=== PATIENT | male | born 1940 | race Caucasian/White ===

== ENCOUNTER 2020-05-19 15:15 | Emergency (ER) | payer OTHER, SELFPAY ==
--- NOTE | ~2020-05-19 | XR_ITS ---
XR chest 1V portable DATE: 05/19/2020 16:56 INDICATION: Shortness of breath, palpitations. History of COPD, atrial fibrillation, congestive heart failure, aortic valve disease TECHNIQUE: Portable upright AP chest on 05/19/2020 at 1647 hours COMPARISON: 07/02/2017 PA and lateral chest FINDINGS: Status post sternotomy and aortic valve replacement. Cardiomegaly. Aortic calcification. Mild infiltrate or atelectasis is noted in the lung bases. The lungs otherwise appear clear. No pleur al effusion is evident. There is mild pulmonary vascular congestion and redistribution. The left shoulder is included; left chronic rotator cuff atrophy. Diffuse osteopenia. IMPRESSION: Bibasilar mild infiltrate and/atelectasis Cardiomegaly Status post aortic valve replacement Aortic calcification Reviewed, dictated and finalized at location B.
--- NOTE | 2020-05-19 15:32 | ECG_ITS ---
Measurements Intervals [place] Rate: 73 P: 46 RI: 234 QRS: 98 QRSD: 165 T: 51 QT: 444 QTc: 490 Interpretive Statements SINUS RHYTHM WITH FIRST DEGREE AV BLOCK POSSIBLE LEFT ATRIAL ENLARGEMENT RIGHT AXIS DEVIATION LEFT BUNDLE BRANCH BLOCK BASELINE ARTIFACT- I ABNORMAL ECG Electronically Signed On 05-19-2020 16:14:54 CDT by Isaiah Burk D.O.
[2020-05-19 15:40] VITALS: BP 147/75; PULSE 73; RESP 16; TEMP 36.4; O2SAT 99
[2020-05-19 15:51] VITALS: PULSE 76
[2020-05-19 16:11] LABS: Basophils Absolute Auto 0.1 K/mm3 (0.0-0.1); Basophils Percent Auto 0.7 % (0.2-1.2); Eosinophils Absolute Auto 0.1 K/mm3 (0-0.3); Eosinophils Percent Auto 1.6 % (0-4.4); Hematocrit 39.2 % (42.0-52.0); Hemoglobin 13.1 g/dL (14.0-18.0); Immature Granulocyte Absolute 0.02 K/mm3 (0.00-0.031); Immature Granulocyte Percent A 0.3 % (0-0.5); Lymphocytes Absolute Auto 1.66 K/mm3 (0.9-3.2); Lymphocytes Percent Auto 24.9 % (18.3-44.2); Mean Corpuscular HGB Conc 33.4 g/dl (32-36); Mean Corpuscular Hemoglobin 30.7 pg (26-34); Mean Corpuscular Volume 91.8 fl (80-100); Mean Platelet Volume 12.1 fl (7.4-10.4); Monocytes Absolute Auto 0.7 K/mm3 (0.1-0.6); Monocytes Percent Auto 10.2 % (2.6-8.5); Neutrophils Absolute Auto 4.2 K/mm3 (1.3-6.7); Neutrophils Percent Auto 62.3 % (45.5-73.1); Platelet Count Result 166 k/mm3 (150-375); Red Blood Count 4.27 M/mm3 (4.6-6.20); Red Cell Distribution Width 13.5 % (11.5-14.5); White Blood Count 6.7 K/mm3 (4.5-10.0)
[2020-05-19 16:21] LABS: Anion Gap 10 mmol/L (8-16); Blood Urea Nitrogen 26 mg/dL (9-20); Calcium 9.3 mg/dL (8.4-10.2); Carbon Dioxide 28 mmol/L (22-30); Chloride 100 mmol/L (98-107); Estimated CRCL calculation 62 ml/min; Estimated Glomerular Filt Rate > 60; Glucose 251 mg/dL (75-110); Potassium 4.1 mmol/L (3.4-5.0); Sodium 138 mmol/L (137-145)
--- NOTE | 2020-05-19 16:22 | ED.GENADULT ---
HPI - General Adult General Chief complaint: Unspecified Stated complaint: PCP WANTS TEST FOR ENDOCARDITIS AND COVID Time Seen by Provider: 05/19/20 15:55 Source: patient Mode of arrival: ambulatory Limitations: no limitations History of Present Illness HPI narrative: This patient is an 79 year old male with history of COPD who presents for evaluation for possible COVID. Patient states last night he was feeling fatigued. HE also reports he had an episode of chills and he felt his heart racing. Today he denies having chest pain, cough, fever, or palpitations. He states he has mild fatigue but otherwise he feels fine. He denies sore throat, diarrhea, loss of taste or smell. HE denies known covid exposure. He states his speed runner recommended that he come to ER. Related Data Home Medications Medication Instructions Recorded Confirmed amlodipine 05/19/20 carvedilol 05/19/20 doxazosin mg 05/19/20 furosemide 05/19/20 losartan 05/19/20 paroxetine HCl mg PO 05/19/20 simvastatin mg 05/19/20 warfarin 05/19/20 Allergies Allergy/AdvReac Type Severity Reaction Status Date / Time No Known Allergies Allergy Verified 05/19/20 15:52 Review of Systems Review of Systems: All systems reviewed & are unremarkable except as noted in HPI and below Constitutional: Constitutional: Reports chills, Reports fatigue and Denies fever(s) ENT: Denies nasal congestion and Denies sore throat Cardiovascular: Cardiovascular: Denies chest pain, Reports rapid heart rate and Denies radiating jaw, neck or arm pain Respiratory: Respiratory: Denies cough and Reports dyspnea (chronic) Gastrointestinal: Gastrointestinal: Denies abdominal pain, Denies diarrhea, Denies nausea and Denies vomiting PMFSH Past Medical History Medical History (Updated 05/19/20 @ 21:21 by Sarah Yepez MD) Aortic valve disease Atrial fibrillation CHF (congestive heart failure) COPD (chronic obstructive pulmonary disease) Diabetes mellitus Surgical History Surgical History (Updated 05/19/20 @ 16:25 by Sarah Yepez MD) H/O aortic valve replacement Social History Social History (Updated 05/19/20 @ 16:25 by Sarah Yepez MD) Smoking status: Never smoker Exam Narrative: Exam Narrative: GENERAL: Well-appearing, well-nourished, and in no acute distress. HEAD: Normocephalic, atraumatic EYES: PERRLA and EOMI, conjunctiva clear without discharge THROAT:Mucous membranes moist, Oropharynx normal without erythema, exudate, peritonsillar swelling or fluctuance NECK: Supple, without lymphadenopathy or mass RESPIRATORY: No respiratory distress, Airway patent, Respirations non-labored, Clear to auscultation without rales, rhonchi or wheeze HEART: Regular rate and rhythm. No murmur heard. Normal peripheral pulses. ABDOMEN: Soft, nontender, nondistended, normal active bowel sounds. No masses. No rebound or guarding, No organomegaly. EXTREMITIES: No edema, normal strength with full range of motion. SKIN: Warm, dry, normal color without rash NEURO: Alert and oriented x3. CN 2-12 grossly intact. No focal deficits. PSYCH: Normal mood and affect. Course Reevaluation(s) Reevaluation #1: I was just informed that patient left AMA. Unable to talk to patient before he left. Date: 05/19/20 Time: 17:10 Vital Signs Vital signs: Vital Signs Temperature 97.5 F L 05/19/20 15:40 Pulse Rate 73 05/19/20 15:40 Respiratory Rate 16 05/19/20 15:40 Blood Pressure 147/75 H 05/19/20 15:40 Pulse Oximetry 99 05/19/20 15:40 Temperature 97.5 F L 05/19/20 15:40 Pulse Rate 78 05/19/20 17:05 Respiratory Rate 18 05/19/20 17:05 Blood Pressure 147/75 H 05/19/20 15:40 Pulse Oximetry 99 05/19/20 17:05 Medical Decision Making Vital Signs Vital Signs: Vital Signs Temperature 97.5 F L 05/19/20 15:40 Pulse Rate 73 05/19/20 15:40 Respiratory Rate 16 05/19/20 15:40 Blood Pressure 147/75 H 05/19/20 15:40 P
[2020-05-19 16:46] LABS: Magnesium 1.9 mg/dL (1.6-2.3)
[2020-05-19 16:56] LABS: INR 2.7
[2020-05-19 16:57] LABS: Partial Thromboplastin Time 46.5 SECONDS (22.3-36.8)
[2020-05-19 16:59] LABS: Troponin I < 0.012 ng/mL (0.000-0.034)
--- NOTE | 2020-05-19 17:04 | PC.NURSE ---
patient left ama after being informed of the risks of doing so including , and the benifits of continued treatment
[2020-05-19 17:05] VITALS: PULSE 78; RESP 18; O2SAT 99
== END 2020-05-19 17:08 | disposition left against medical advice (07) ==
PROVIDERS: Emergency Medicine; Emergency Provider General Practice; PCP Internal Medicine
DX: R00.2 Palpitations (principal); J44.9 Chronic obstructive pulmonary disease, unspecified; Z79.01 Long term (current) use of anticoagulants; I48.91 Unspecified atrial fibrillation; I50.9 Heart failure, unspecified; E11.9 Type 2 diabetes mellitus without complications; Z95.2 Presence of prosthetic heart valve; I35.9 Nonrheumatic aortic valve disorder, unspecified; I44.0 Atrioventricular block, first degree; I44.7 Left bundle-branch block, unspecified; R94.31 Abnormal electrocardiogram [ECG] [EKG]
CPT/HCPCS: 36415; 71045; 80048; 83735; 84484; 85025; 85610; 85730; 93005; 99284

== ENCOUNTER 2021-05-20 14:16 | Outpatient (CLI) | payer MEDICARE, SELFPAY ==
--- NOTE | ~2021-05-20 | XR_ITS ---
XR lumbar spine min 4V DATE: 05/20/2021 14:45 INDICATION: Acute low back pain with bilateral sciatica for one month. No injury. TECHNIQUE: AP, lateral, coned lateral lumbosacral and bilateral oblique views COMPARISON: None FINDINGS: There is degenerative change at the apophyseal joints with associated minimal grade 1 anter olisthesis at L3-4. There is mild degenerative disc disease at L1-2, L2-3 and L3-4. There is moderate degenerative disc disease and mild retrolisthesis at L5-S1. The lumbar pedicles are intact. No fracture or bone destruction, spondylolysis or spondylolisthesis. The sacroiliac joints are intact. There is extensive calcification of the abdominal aorta and iliac arteries, without evidence of aneur ysm. IMPRESSION: Degenerative changes including mild to moderate multilevel degenerative disc disease, deg enerative changes apophyseal joints, with associated minimal grade 1 anterolisthesis at L3-4 Reviewed, dictated and finalized at location B. IMPRESSION: Degenerative changes including mild to moderate multilevel degenera tive disc disease, degenerative changes apophyseal joints, with associated mini mal grade 1 anterolisthesis at L3-4
== END 2021-05-20 14:17 | disposition home or self-care (01) ==
LOC: ANHIMG 14:21
PROVIDERS: PCP Internal Medicine; Visit Provider Internal Medicine
DX: M54.42 Lumbago with sciatica, left side (principal); M54.41 Lumbago with sciatica, right side; M51.36 Other intervertebral disc degeneration, lumbar region
CPT/HCPCS: 72110

== ENCOUNTER 2022-03-24 13:45 | Emergency (ER) | payer MEDICARE, SELFPAY ==
--- NOTE | ~2022-03-24 | XR_ITS ---
XR chest 2V 03/24/2022 14:18 Indication: Abdomen pain and weakness Procedure: 2 view chest Comparison: 05/19/2020 Findings: Status post median sternotomy for CABG. Cardiomegaly. There is a prosthetic aortic valve. N o focal air space disease, pulmonary edema, pleural effusion or suspected pneumothorax. Impression: 1: No acute cardiopulmonary disease. 2: Cardiomegaly. Reviewed, dictated and finalized at location A. Impression: 1: No acute cardiopulmonary disease. 2: Cardiomegaly.
--- NOTE | 2022-03-24 13:44 | ECG_ITS ---
Measurements Intervals [place] Rate: 98 P: -31 NE: 177 QRS: 23 QRSD: 174 T: 41 QT: 416 QTc: 533 Interpretive Statements SINUS RHYTHM WITH SINUS ARRHYTHMIA LEFT ATRIAL ENLARGEMENT [-0.15mV P-WAVE IN V1/V2] LEFT BUNDLE BRANCH BLOCK [120+ ms QRS DURATION, 80+ ms Q/S IN V1/V2, 85+ ms R IN I/aVL/V5/V6] COMPARED TO ECG 05/19/2020 15:37:47 HEART RATE IS INCREASED Electronically Signed On 03-24-2022 16:34:28 CDT by Ubaldo Vazquez M.D.
[2022-03-24 13:45] VITALS: BP 108/58; PULSE 100; RESP 14; TEMP 36.4
--- NOTE | 2022-03-24 13:59 | ED.GENADULT ---
HPI - General Adult General Chief complaint: Weakness Stated complaint: weakness, CP History of Present Illness HPI narrative: 81-year-old male with a past medical history of hypertension, aortic valve replacement, dyslipidemia presents for evaluation of weakness and lightheadedness. Patient states that when he woke up this morning he felt lightheaded. He spent most of the morning in bed because of the lightheadedness and he felt that he may be too weak to walk. He is also upset because his did not make breakfast this morning. He denies fever, chest pain, sick contacts. He has had a COVID-vaccine. Patient felt well when he went to bed last night. He denies chest pain, shortness of breath, exertional symptoms. Related Data Home Medications Medication Instructions Recorded Confirmed amlodipine 10 mg tablet 05/19/20 carvedilol 25 mg tablet 05/19/20 doxazosin 4 mg tablet mg 05/19/20 furosemide 40 mg tablet 05/19/20 losartan 100 mg tablet 05/19/20 paroxetine HCl 20 mg tablet mg PO 05/19/20 simvastatin 20 mg tablet mg 05/19/20 warfarin 2 mg tablet 05/19/20 Allergies Allergy/AdvReac Type Severity Reaction Status Date / Time No Known Allergies Allergy Verified 05/19/20 15:52 Review of Systems Review of Systems: CONSTITUTIONAL: Denies fever, chills, or sweats. EYES: Denies visual changes, redness, or discharge. ENT: Denies rhinorrhea, congestion, sore throat, or otalgia. CARDIOVASCULAR: Denies chest pain, palpitations, or edema. RESPIRATORY: Denies cough or dyspnea. GASTROINTESTINAL: Denies abdominal pain, nausea, vomiting, or diarrhea. GENITOURINARY: Denies dysuria or hematuria. SKIN: Denies rash or itching. MUSCULOSKELETAL: Denies back pain, joint pain, or myalgia. NEUROLOGIC: Denies headache, numbness, or weakness. PSYCHIATRIC: Denies anxiety or depression. [facility] Past Medical History Medical History Aortic valve disease Atrial fibrillation CHF (congestive heart failure) COPD (chronic obstructive pulmonary disease) Diabetes mellitus Surgical History Surgical History H/O aortic valve replacement Social History Social History Smoking status: Never smoker Exam Narrative: GENERAL: Well-appearing, well-nourished, and in no acute distress. HEAD: Normocephalic, atraumatic. EYES: PERRLA and EOMI. ENT: Nares clear, no rhinorrhea or epistaxis. Mucous membranes moist. NECK: Supple. CHEST: Clear to auscultation. No respiratory distress. HEART: Regular rate and rhythm. No murmur heard. Normal peripheral pulses. ABDOMEN: Soft, nontender, nondistended, normal active bowel sounds. EXTREMITIES: Normal range of motion. No edema. SKIN: Warm, dry, no rash. NEURO: No focal deficits. Alert and oriented x3. PSYCH: Normal mood and affect. Course Vital Signs Vital signs: Vital Signs Temperature 97.5 F L 03/24/22 13:45 Pulse Rate 100 03/24/22 13:45 Respiratory Rate 14 03/24/22 13:45 Blood Pressure 108/58 L 03/24/22 13:45 Oxygen Delivery Room Air 03/24/22 13:45 Temperature 97.5 F L 03/24/22 13:45 Pulse Rate 65 03/24/22 14:51 Respiratory Rate 14 03/24/22 13:45 Blood Pressure 108/58 L 03/24/22 13:45 Oxygen Delivery Room Air 03/24/22 13:45 Medical Decision Making [facility] Narrative Medical decision making narrative: 81-year-old male with generalized weakness and lightheadedness since this AM. Cardiac work-up is overall reassuring including a negative troponin x2. Work-up is notable for hypokalemia with a potassium of 3.2. Patient also shows evidence of urinary tract infectious disease. He has received p.o. potassium and a dose of ceftriaxone in our department and will be discharged with p.o. antibiotics for home use. Patient agrees to follow-up with his primary care doctor and his family is at
[2022-03-24 14:23] LABS: Basophils Absolute Auto 0.1 K/mm3 (0.0-0.1); Basophils Percent Auto 0.4 % (0.2-1.2); Eosinophils Percent Auto 0.3 % (0-4.4); Hematocrit 41.1 % (42.0-52.0); Hemoglobin 13.5 g/dL (14.0-18.0); Immature Granulocyte Absolute 0.06 K/mm3 (0.00-0.031); Immature Granulocyte Percent A 0.5 % (0-0.5); Lymphocytes Absolute Auto 1.07 K/mm3 (0.9-3.2); Lymphocytes Percent Auto 8.5 % (18.3-44.2); Mean Corpuscular HGB Conc 32.8 g/dl (32-36); Mean Corpuscular Hemoglobin 30.8 pg (26-34); Mean Corpuscular Volume 93.8 fl (80-100); Mean Platelet Volume 11.3 fl (7.4-10.4); Monocytes Absolute Auto 0.9 K/mm3 (0.1-0.6); Monocytes Percent Auto 7.1 % (2.6-8.5); Neutrophils Absolute Auto 10.5 K/mm3 (1.3-6.7); Neutrophils Percent Auto 83.2 % (45.5-73.1); Platelet Count Result 182 k/mm3 (150-375); Red Blood Count 4.38 M/mm3 (4.6-6.20); Red Cell Distribution Width 13.6 % (11.5-14.5); White Blood Count 12.6 K/mm3 (4.5-10.0)
[2022-03-24 14:31] LABS: Alanine Aminotransferase 21 U/L (6-50); Albumin Level 4.2 g/dL (3.5-5.1); Alkaline Phosphatase 55 U/L (38-126); Anion Gap 13 mmol/L (8-16); Aspartate Amino Transferase 23 U/L (17-59); Bilirubin,Total 0.9 mg/dL (0.2-1.3); Blood Urea Nitrogen 17 mg/dL (9-20); Calcium 8.9 mg/dL (8.4-10.2); Carbon Dioxide 25 mmol/L (22-30); Chloride 96 mmol/L (98-107); Estimated CRCL calculation 59 ml/min; Estimated Glomerular Filt Rate > 60; Glucose 192 mg/dL (65-110); Lipase 41 U/L (23-300); Potassium 3.2 mmol/L (3.4-5.0); Sodium 134 mmol/L (137-145)
[2022-03-24 14:32] LABS: INR 1.6; Prothrombin Time 18.5 Seconds (11.1-14.7)
[2022-03-24 14:33] LABS: Partial Thromboplastin Time 38.4 SECONDS (22.3-36.8)
[2022-03-24 14:43] LABS: Troponin I 0.014 ng/mL (0.000-0.034)
[2022-03-24 14:51] VITALS: PULSE 65
--- NOTE | 2022-03-24 16:40 | PC.NURSE ---
Patient hit his call light and notified bond underwriter he needed to use the restroom. Urinal given and patient able to stand at side of bed without difficulty, however patient missed the urinal with some urine and had urine on the floor. Rate Examiner noticed patient's urine was foul smelling and cloudy. UA ordered, collected, and sent to laboratory to rule out UTI.
[2022-03-24 17:15] LABS: Add Urine Microscopic? YES; Appearance Urine Cloudy (Clear); Bilirubin Urine Negative (Negative); Blood Urine Negative (Negative); Color Urine Yellow (Yellow); Glucose Urine UA 2+ mg/dL (Negative); Ketones Urine Negative (Negative); Leukocyte Esterase Ur Trace LEU/UL (Negative); Nitrate Urine Negative (Negative); Protein Urine Trace mg/dL (Negative); Specific Grav Ur 1.015 (1.001-1.035); Urobilinogen Urine 0.2 mg/dL (<2.0)
[2022-03-24 17:19] LABS: Troponin I < 0.012 ng/mL (0.000-0.034)
[2022-03-24 17:27] LABS: Bacteria Urine Trace /hpf; Mucus Urine Rare /lpf; RBC Urine 21-50 /hpf (0-2); Squamous Epithelial Cell Urine Rare /hpf (Few); WBC Urine 31-50 /hpf
[2022-03-24] MEDS: POTASSIUM CHLORIDE 20 MEQ PACKET (FOR LIQUID) 40 MEQ PO (18:13)
== END 2022-03-24 18:46 | disposition home or self-care (01) ==
PROVIDERS: Emergency Provider Emergency Medicine; PCP Internal Medicine
DX: N39.0 Urinary tract infection, site not specified (principal); E78.5 Hyperlipidemia, unspecified; I48.91 Unspecified atrial fibrillation; I50.9 Heart failure, unspecified; I35.8 Other nonrheumatic aortic valve disorders; J44.9 Chronic obstructive pulmonary disease, unspecified; E11.9 Type 2 diabetes mellitus without complications; Z95.2 Presence of prosthetic heart valve; Z79.01 Long term (current) use of anticoagulants; I44.7 Left bundle-branch block, unspecified; R94.31 Abnormal electrocardiogram [ECG] [EKG]
CPT/HCPCS: 36415; 71046; 80053; 81001; 83690; 84484; 85025; 85610; 85730; 87086; 87088; 93005; 96365; 99284; A9270; J0696

== ENCOUNTER 2022-06-23 07:50 | Outpatient (CLI) | payer MEDICARE, SELFPAY | END 2022-06-23 07:51 | disposition home or self-care (01) | LOC: ANHAUDASC 07:51 | PROVIDERS: PCP Family Medicine; Visit Provider Family Medicine | DX: Z01.10 Encounter for examination of ears and hearing without abnormal findings (principal); H90.3 Sensorineural hearing loss, bilateral | CPT/HCPCS: 92557; 92567 ==

== ENCOUNTER 2022-07-07 08:37 | Outpatient (CLI) | payer MEDICARE, SELFPAY ==
--- NOTE | ~2022-07-07 | XR_ITS ---
XR chest 2V 07/07/2022 08:47 Indication: Chronic obstructive pulmonary disease. Procedure: 2 view chest Comparison: 03/24/2022 Findings: Status post median sternotomy for CABG. Moderate cardiomegaly is stable. There are intersti tial infiltrates of the left mid and lower lung. No significant pleural effusion or pneumothorax. No acute osseous abnormality. There is a prosthetic heart valve. Impression: 1: Interstitial infiltrates of the left mid and lower lung which may represent asymmetric edema or pn eumonia. 2: Stable cardiomegaly. Reviewed, dictated and finalized at location A. ECT DEVELOPMENT ENGINEER Impression: 1: Interstitial infiltrates of the left mid and lower lung which may represent asymmetric edema or pneumonia. 2: Stable cardiomegaly.
[2022-07-07 18:42] LABS: Hematocrit 40.8 % (42.0-52.0); Hemoglobin 13.6 g/dL (14.0-18.0); Mean Corpuscular HGB Conc 33.3 g/dl (32-36); Mean Corpuscular Hemoglobin 30.6 pg (26-34); Mean Corpuscular Volume 91.9 fl (80-100); Mean Platelet Volume 11.8 fl (7.4-10.4); Platelet Count Result 151 k/mm3 (150-375); Red Blood Count 4.44 M/mm3 (4.6-6.20); Red Cell Distribution Width 14.9 % (11.5-14.5); White Blood Count 6.1 K/mm3 (4.5-10.0)
[2022-07-07 18:43] LABS: Appearance Urine Clear (Clear); Bilirubin Urine Negative (Negative); Blood Urine Negative (Negative); Color Urine Yellow (Yellow); Glucose Urine UA Negative (Negative); Ketones Urine Negative (Negative); Leukocyte Esterase Ur Negative LEU/UL (NEGATIVE); Nitrate Urine Negative (Negative); Protein Urine Negative (Negative); Urobilinogen Urine 0.2 mg/dL (<2.0); pH Urine 6.5 (5.0-9.0)
[2022-07-07 18:47] LABS: Mucus Urine Rare /lpf; RBC Urine 0-2 /hpf (0-2); Squamous Epithelial Cell Urine Moderate /hpf (Few); WBC Urine 0-3 /hpf (0-3)
[2022-07-07 18:48] LABS: Alanine Aminotransferase 22 U/L (6-50); Alkaline Phosphatase 51 U/L (38-126); Anion Gap 12 mmol/L (8-16); Aspartate Amino Transferase 47 U/L (17-59); Bilirubin,Total 0.6 mg/dL (0.2-1.3); Blood Urea Nitrogen 18 mg/dL (9-20); Calcium 8.6 mg/dL (8.4-10.2); Carbon Dioxide 31 mmol/L (22-30); Chloride 94 mmol/L (98-107); Estimated Glomerular Filt Rate > 60; Glucose 167 mg/dL (65-110); Potassium 3.3 mmol/L (3.4-5.0); Sodium 137 mmol/L (137-145)
[2022-07-07 18:50] LABS: Iron 51 ug/dL (49-181)
[2022-07-07 18:58] LABS: Hemoglobin A1C 7.2 % (<5.7)
[2022-07-07 18:59] LABS: Percent Iron Saturation 17 % (20-50)
[2022-07-07 18:59] LABS: Add Urine Microscopic? NO
[2022-07-07 19:18] LABS: Creatinine Urine 124.1 mg/dL
[2022-07-07 19:23] LABS: MALB Creatinine Ratio 39.2 mg/g (0-30); Microalbumin Urine Random 48.6 mg/L (0-16.7)
== END 2022-07-07 08:38 | disposition home or self-care (01) ==
PROVIDERS: PCP Family Medicine; Visit Provider Family Medicine
DX: J44.1 Chronic obstructive pulmonary disease with (acute) exacerbation (principal); E11.9 Type 2 diabetes mellitus without complications; D64.9 Anemia, unspecified; I48.91 Unspecified atrial fibrillation; N40.0 Benign prostatic hyperplasia without lower urinary tract symptoms; I50.9 Heart failure, unspecified
CPT/HCPCS: 36415; 71046; 80053; 81003; 82043; 83036; 83540; 83550; 85027

== ENCOUNTER 2022-08-01 14:41 | Outpatient (CLI) | payer MEDICARE, SELFPAY ==
[2022-08-01 19:24] LABS: Hematocrit 40.9 % (42.0-52.0); Hemoglobin 13.8 g/dL (14.0-18.0); Mean Corpuscular HGB Conc 33.7 g/dl (32-36); Mean Corpuscular Hemoglobin 30.5 pg (26-34); Mean Corpuscular Volume 90.3 fl (80-100); Mean Platelet Volume 11.4 fl (7.4-10.4); Platelet Count Result 170 k/mm3 (150-375); Red Blood Count 4.53 M/mm3 (4.6-6.20); Red Cell Distribution Width 14.4 % (11.5-14.5); White Blood Count 6.7 K/mm3 (4.5-10.0)
[2022-08-01 19:38] LABS: Alanine Aminotransferase 28 U/L (6-50); Albumin Level 4.2 g/dL (3.5-5.1); Alkaline Phosphatase 51 U/L (38-126); Anion Gap 7 mmol/L (8-16); Aspartate Amino Transferase 38 U/L (17-59); Bilirubin,Total 0.6 mg/dL (0.2-1.3); Blood Urea Nitrogen 25 mg/dL (9-20); Calcium 8.7 mg/dL (8.4-10.2); Carbon Dioxide 31 mmol/L (22-30); Chloride 101 mmol/L (98-107); Estimated Glomerular Filt Rate 58; Glucose 158 mg/dL (65-110); Potassium 3.5 mmol/L (3.4-5.0); Sodium 139 mmol/L (137-145)
[2022-08-01 19:49] LABS: Cholesterol 155 mg/dL (0-200); HDL Direct 48 mg/dL; Triglycerides 237 mg/dL (<150)
[2022-08-01 20:00] LABS: LDL Cholesterol Direct 61 mg/dL
[2022-08-01 20:20] LABS: Prostate Specific Antigen 0.5 ng/mL (< OR = 4.0)
[2022-08-01 20:23] LABS: Iron 108 ug/dL (49-181)
[2022-08-01 20:38] LABS: Percent Iron Saturation 34 % (20-50)
[2022-08-01 20:57] LABS: Hemoglobin A1C 7.3 % (<5.7)
== END 2022-08-01 14:42 | disposition home or self-care (01) ==
PROVIDERS: PCP Family Medicine; Visit Provider Family Medicine
DX: E11.9 Type 2 diabetes mellitus without complications (principal); D64.9 Anemia, unspecified; I48.91 Unspecified atrial fibrillation; I50.9 Heart failure, unspecified; N40.0 Benign prostatic hyperplasia without lower urinary tract symptoms; Z12.5 Encounter for screening for malignant neoplasm of prostate
CPT/HCPCS: 36415; 80053; 80061; 83036; 83540; 83550; 84153; 85027; G0103

== ENCOUNTER 2023-05-15 10:55 | Outpatient (CLI) | payer MEDICARE, SELFPAY ==
--- NOTE | ~2023-05-15 | XR_ITS ---
XR foot LT min 3V DATE: 05/15/2023 11:22 INDICATION: Left foot pain] TECHNIQUE: 4 views COMPARISON: None FINDINGS: There is mild osteoarthritis at the first metatarsophalangeal joint. There is plantar and posterior calcaneal enthesopathy. No fracture or dislocation, periosteal reaction or bone destruction is detected. Anterior and posterior tibial artery calcification is noted. IMPRESSION: Osteoarthritis at first metatarsophalangeal joint Plantar and posterior calcaneal enthesopathy Reviewed, dictated and finalized at location A.
== END 2023-05-15 10:56 | disposition home or self-care (01) ==
PROVIDERS: PCP Family Medicine; Visit Provider Family Medicine
DX: M79.672 Pain in left foot (principal); M19.072 Primary osteoarthritis, left ankle and foot
CPT/HCPCS: 73630

== ENCOUNTER 2023-05-22 10:17 | Outpatient (CLI) | payer MEDICARE, SELFPAY ==
--- NOTE | ~2023-05-22 | MR_ITS ---
EXAMINATION: MR lumbar spine wo con DATE: 05/22/2023 10:54 INDICATION: Low back pain, unspecified. TECHNIQUE: Magnetic resonance imaging (MRI) of the lumbar spine was performed without intravenous con trast. Sequences included sagittal T2-weighted FSE, sagittal T2-weighted FS FSE, sagittal T1-weighted FSE, and axial T2-weighted FSE. COMPARISON: Lumbar spine radiographs 05/20/21 FINDINGS: There is 4 degrees levocurvature of lumbar spine. Vertebral body heights are normal. There is mildly decreased disc height at L5-S1. There is ligamentum flavum hypertrophy from L2-L3 through L 5-S1. The distal spinal cord signal intensity is normal. The conus medullaris is at L1. The following disc levels are specifically discussed: L1-L2: The disc does not extend beyond the endplate margin. There is mild bilateral facet joint osteo arthritis. There is no neural foraminal stenosis. There is no central canal stenosis. L2-L3: The disc is bulging. There is severe bilateral facet joint osteoarthritis. There is mild bilat eral neural foraminal stenosis. There is no central canal stenosis. L3-L4: The disc is bulging. There is severe bilateral facet joint osteoarthritis. There is mild bilat eral neural foraminal stenosis. There is moderate central canal stenosis. L4-L5: The disc is bulging. There is severe bilateral facet joint osteoarthritis. There is mild bilat eral neural foraminal stenosis. There is moderate central canal stenosis. L5-S1: The disc is bulging. There is severe bilateral facet joint osteoarthritis. There is mild bilat eral neural foraminal stenosis. There is mild central canal stenosis. IMPRESSION: 1. Moderate lumbar spondylosis. Reviewed, dictated and finalized at location E.
== END 2023-05-22 10:18 | disposition home or self-care (01) ==
PROVIDERS: PCP Family Medicine; Visit Provider Family Medicine
DX: M47.896 Other spondylosis, lumbar region (principal)
CPT/HCPCS: 72148

== ENCOUNTER 2023-12-17 18:11 | Emergency (ER) | payer MEDICARE, SELFPAY ==
--- NOTE | ~2023-12-17 | CT_ITS ---
EXAMINATION: CTA brain carotid DATE: 12/17/2023 21:14 INDICATION: dizziness TECHNIQUE: Computed tomographic angiography (CTA) of the head and neck was performed with 100 mL Omni paque-350 intravenous contrast. Automated exposure control and iterative reconstruction technique wer e employed. The dose-length product was 1131.35 mGy-cm. Maximum intensity projection and volume rend ered 3D-reconstructions were created by the technologist on a separate workstation. COMPARISON: CT brain, same date. FINDINGS: CTA HEAD: No large vessel occlusion, high flow vascular malformation, nidus or extravasation. 4 mm fusiform ane urysmal dilation in the right A1 segment at the origin of the anterior communication artery. Noncalci fied plaque in the petrous portion of the carotid causing significant stenosis. Calcified plaque in t he bilateral cavernous carotids causing moderate left and severe right stenosis. Calcified plaque in the bilateral intradural portions of the vertebral arteries, without significant stenosis. Patent cer ebral veins. Symmetric parenchymal enhancement. CTA NECK: Aortic arch and proximal great vessels: Normal arch anatomy. Moderate arch calcification. Right common carotid, carotid bifurcation, and internal carotid artery: Heavy calcified plaque at the bifurcation. Severe, near occlusive stenosis at the carotid bifurcation. String sign in the internal carotid artery (severely narrowed caliber of the entire length of the internal carotid artery), whic h prevents normal calculation of the degree of carotid stenosis. Left common carotid, carotid bifurcation, and internal carotid artery: Heavy calcified plaque at the bifurcation.There is 61% stenosis of the proximal left internal carotid artery relative to normal dis harley artery lumen diameter (NASCET criteria). Vertebral arteries: No significant plaque or stenosis. Other findings: Peripheral interstitial changes in the lungs. Degenerative changes in the cervical sp ine. Dilated azygos vein. 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 Severe noncalcified and calcified plaque in the petrous and cavernous portions of the right intracran ial carotid artery. Severe near occlusive stenosis of the right carotid bifurcation with distal string sign. Typically th e string sign is related to decreased pressure and flow distal to a severe stenosis, but can also be seen with ICA dissection, ICA thrombosis, radiation change, as well as partial recanalization of an o ccluded ICA. 61% stenosis of the proximal left internal carotid artery. No vertebral artery occlusion, dissection, or significant stenosis. Reviewed, dictated and finalized at location K. 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 Severe noncalcified and calcified plaque in the petrous and cavernous portions of the right intracranial carotid artery. Severe near occlusive stenosis of the right carotid bifurcation with distal str ing sign. Typically the string sign is related to decreased pressure and flow d istal to a severe stenosis, but can also be seen with ICA dissection, ICA throm bosis, radiation change, as well as partial recanalization of an occluded ICA. 61% stenosis of the proximal left internal carotid artery. No vertebral artery occlusion, dissection, or significant stenosis.
--- NOTE | ~2023-12-17 | XR_ITS ---
EXAMINATION: XR chest 2V Exam Date/Time: 12/17/2023 19:02 CDT HISTORY: fall ,weakness Comparison: 07/07/2022. RESULT: Lines, tubes, and devices: Cardiac valve replacement. Intact sternotomy wires. Lungs and pleura: Peribronchial cuffing, mild diffuse reticular opacities. Cardiomediastinal silhouette: Stable. Other: No acute osseous or upper abdominal finding. IMPRESSION: Pulmonary opacities may represent mild interstitial edema or respiratory bronchiolitis. Reviewed, dictated and finalized at location K. IMPRESSION: Pulmonary opacities may represent mild interstitial edema or respiratory bronch iolitis.
--- NOTE | ~2023-12-17 | CT_ITS ---
EXAMINATION: CT brain wo con DATE: 12/17/2023 19:02 INDICATION: found on ground, fall, weakness, dizziness . TECHNIQUE: Computed tomography (CT) of the head was performed without intravenous contrast. The mA wa s adjusted according to patient size. Iterative reconstruction technique was employed. The dose-lengt h product was 681.00 mGy-cm. COMPARISON: None. FINDINGS: No acute intracranial hemorrhage or extra-axial fluid collection. No hydrocephalus, mass, or herniation. No acute ischemic infarct. Unremarkable dural venous sinus attenuation. No acute osseous abnormality. Right maxillary mucosal thickening, the remaining aerated spaces are clear. Mild atrophy and chronic white matter change. Atherosclerotic intracranial calcification. Bilateral b heather ganglia calcification. Left lens replacement. IMPRESSION: No acute intracranial process. Reviewed, dictated and finalized at location K.
[2023-12-17 18:30] VITALS: BP 120/54; PULSE 95; RESP 16; TEMP 37; O2SAT 95
--- NOTE | 2023-12-17 18:35 | ECG_ITS ---
SEE SCANNED COPY FOR CONFIRMED REPORT.
--- NOTE | 2023-12-17 18:35 | ED_ITS ---
HPI - General Adult General Chief complaint: Unspecified <SONU Naranjo Last Filed: 12/17/23 18:48> Stated complaint: CVA? <SONU Naranjo Last Filed: 12/17/23 18:48> Time Seen by Provider: 12/17/23 18:30 <Ave Savage PA-C - Last Filed: 12/17/23 18:48> Focused HPI: Patient is an 83-year-old male who presents the ED with family with weakness. Per family, patient was found on the ground prior to arrival. Appeared to have fallen. Unknown if he hit his head. Patient was helped up off the ground but c/o weakness. Feels weak all over. Has had dizziness, nausea, vomiting today. Family also reports patient has been increasingly confused today, not as cognitively sharp as he usually is. Denies focal weakness, numbness, CP, SOB, vision changes, ALVARADO, abdominal pain. Patient states he was diagnosed with a UTI last year and had similar sx's at that time. Family also mentions patient was recently started on mounjaro for weight loss. GENERAL: Elderly, obese with BMI of 32.5, and in no acute distress. Fresh vomitus on clothes. HEAD: Normocephalic, atraumatic. CHEST: Clear to auscultation. ?No respiratory distress. HEART: Regular rate and rhythm.? NEURO: ?Alert and oriented x3. No focal deficits appreciated. Equal strength in upper and lower extremities bilaterally. 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 No pronator drift. Cranial nerves 2-12 grossly intact. Patient screened in triage and initial orders placed.? ?Additional care and disposition to be based upon?diagnostic testing and treatment. <SONU Naranjo Last Filed: 12/17/23 18:48> Source: patient and family <SONU Naranjo Last Filed: 12/17/23 18:48> Mode of arrival: ambulatory <SONU Naranjo Last Filed: 12/17/23 18:48> Limitations: no limitations <SONU Naranjo Last Filed: 12/17/23 18:48> Related Data Allergies/adverse reactions: Allergies Allergy/AdvReac Type Severity Reaction Status Date / Time metformin AdvReac Intermediate Diarrhea Verified 09/26/23 14:10 <Ave Savage PA-C - Last Filed: 12/17/23 18:48> Review of Systems Review of Systems: CONSTITUTIONAL: Denies fever, CARDIOVASCULAR: Denies chest pain, or edema. RESPIRATORY: Denies dyspnea. GASTROINTESTINAL: Reports nausea and vomiting. Denies abdominal pain GENITOURINARY: Denies dysuria MUSCULOSKELETAL: Denies back pain, joint pain, or myalgia. NEUROLOGIC: Reports generalized weakness. <Cynthia Pastor PA-C - Last Filed: 12/18/23 00:45> All systems reviewed & are unremarkable except as noted in HPI and below <Cynthia Pastor PA-C - Last Filed: 12/18/23 00:45> FORMERLY [facility] Past Medical History Medical History: Medical History Aortic valve disease Atrial fibrillation CHF (congestive heart failure) COPD (chronic obstructive pulmonary disease) Diabetes mellitus <SONU Naranjo Last Filed: 12/17/23 18:48> Surgical History Surgical History: Surgical History H/O aortic valve replacement <SONU Naranjo Last Filed: 12/17/23 18:48> Family History Family History: Family History Father Hypertension Heart disease Mother Cancer Diabetes mellitus Hypertension <SONU Naranjo Last Filed: 12/17/23 18:48> Social History Social History: Social History Smoking status: Never smoker Alcohol intake: never Substance use: never Substance use type: does not use Lack of Transportation: No Lack of Food: Never True Current Housing: I Have Housing Concerned About Future Housing: No Difficulty Paying Gas/Electric Bills: No Difficulty Paying for Meds: No Currently Unemployed: No Education: High School Diploma/GED Difficulty w/ Childcare or Family Care: No Living arrangements: with family Occupation/Education: retired Gender identity (if verbalized by the patient): Male Spiritual care concerns: No <Ave Savage PA-C - Last Filed: 12/17/23 18:48> Exam Narrative: GENERAL: Elderly, well-nourished, and in no acute distress. HEAD: Normocephalic, atraumatic. EYES: PERRLA and EOMI. ENT: Nares clear, no rhinorrhea or epistaxis. Mucous membranes moist. Oropharynx without tonsillar hypertrophy exudate or other lesions. Bilateral TMs pearly fontana non-bulging NECK: Supple. No adenopathy or masses. No JVD CHEST: Clear to auscultation. No respiratory distress. No wheezes rales or rhonchi HEART: Regular rate and rhythm. No murmur heard. Normal peripheral pulses. ABDOMEN: Soft, nontender, nondistended, normal active bowel sounds. EXTREMITIES: Normal range of motion. No edema. Strength equal in bilateral upper lower extremities (5/5) SKIN: Warm, dry, no rash. NEURO: No focal deficits. Alert and oriented x3. Cranial nerves 2-12 grossly intact. Normal [id number] PSYCH: Normal mood and affect <Cynthia Pastor PA-C - Last Filed: 12/18/23 00:45> Course Course Emergency Course: Patient updated on his workup and recommendation for admission for further evaluation. He declines to be admitted this time. Reports feeling better. Ambulatory with a steady gait <SONU Krishnan Last Filed: 12/18/23 00:45> Consultations Consultation #1: Spoke with neurology at [place]. Patient may follow up outpatient for findings on CTA. No acute intervention required <SONU Krishnan Last Filed: 12/18/23 00:45> Date: 12/17/23 <SONU Krishnan Last Filed: 12/18/23 00:45> Vital Signs Vital signs: Vital Signs Temperature 98.6 F 12/17/23 18:30 Pulse Rate 95 12/17/23 18:30 Respiratory Rate 16 12/17/23 18:30 Blood Pressure 120/54 L 12/17/23 18:30 Pulse Oximetry 95 12/17/23 18:30 Oxygen Delivery Room Air 12/17/23 18:30 Temperature 98.6 F 12/17/23 18:30 Pulse Rate 91 12/17/23 23:57 Respiratory Rate 20 12/17/23 23:57 Blood Pressure 171/103 H 12/17/23 23:57 Pulse Oximetry 100 12/17/23 23:57 Oxygen Delivery Room Air 12/17/23 18:30 <Ave Savage PA-C - Last Filed: 12/17/23 18:48> Vital Signs Temperature 98.6 F 12/17/23 18:30 Pulse Rate 95 12/17/23 18:30 Respiratory Rate 16 12/17/23 18:30 Blood Pressure 120/54 L 12/17/23 18:30 Pulse Oximetry 95 12/17/23 18:30 Oxygen Delivery Room Air 12/17/23 18:30 Temperature 98.6 F 12/17/23 18:30 Pulse Rate 91 12/17/23 23:57 Respiratory Rate 20 12/17/23 23:57 Blood Pressure 171/103 H 12/17/23 23:57 Pulse Oximetry 100 12/17/23 23:57 Oxygen Delivery Room Air 12/17/23 18:30 <SONU Krishnan Last Filed: 12/18/23 00:45> Medical Decision Making MDM Narrative Medical decision making narrative: MSE by MILENA in triage. <SONU Naranjo Last Filed: 12/17/23 18:48> MSE by MILENA in triage. Patient presents the emergency department for generalized weakness, dizziness. Reporting a fall today. Patient has no focal deficits on exam. His vitals are stable. He is afebrile and nontoxic appearing. CBC with leukocytosis to 14.9. Also shows normocytic anemia with hemoglobin of 13.3. Metabolic panel with mild hypokalemia, patient's potassium replaced in the ED. UA without evidence of infection. Influenza, COVID, and RSV screens are negative. CT brain without acute findings. Chest x-ray shows mild interstitial edema verses bronchiolitis. EKG without acute changes compared to his previous and baseline troponin is negative. Patient denies any chest pain or shortness of breath. 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 Severe noncalcified and calcified plaque in the petrous and cavernous portions of the right intracranial carotid artery. Severe near occlusive stenosis of the right carotid bifurcation with distal string sign. 61% stenosis of the proximal left internal carotid artery. No vertebral artery occlusion, dissection, or significant stenosis. Spoke with neurology at [place]. Patient may follow up ou tpatient for findings on CTA. No acute intervention required. Patient updated on his workup and recommendation for admission for further evaluation. He declines to be admitted this time. Reports feeling better. Ambulatory with a steady gait. Was instructed to have close follow up with his PCP. Given information to make follow up appointment with vascular surgery. They were instructed to return at any time for further evaluation and management <Cynthia Pastor PA-C - Last Filed: 12/18/23 00:45> Vital Signs Vital Signs: Vital Signs Temperature 98.6 F 12/17/23 18:30 Pulse Rate 95 12/17/23 18:30 Respiratory Rate 16 12/17/23 18:30 Blood Pressure 120/54 L 12/17/23 18:30 Pulse Oximetry 95 12/17/23 18:30 Oxygen Delivery Room Air 12/17/23 18:30 Temperature 98.6 F 12/17/23 18:30 Pulse Rate 91 12/17/23 23:57 Respiratory Rate 20 12/17/23 23:57 Blood Pressure 171/103 H 12/17/23 23:57 Pulse Oximetry 100 12/17/23 23:57 Oxygen Delivery Room Air 12/17/23 18:30 <Ave Savage PA-C - Last Filed: 12/17/23 18:48> Vital Signs Temperature 98.6 F 12/17/23 18:30 Pulse Rate 95 12/17/23 18:30 Respiratory Rate 16 12/17/23 18:30 Blood Pressure 120/54 L 12/17/23 18:30 Pulse Oximetry 95 12/17/23 18:30 Oxygen Delivery Room Air 12/17/23 18:30 Temperature 98.6 F 12/17/23 18:30 Pulse Rate 91 12/17/23 23:57 Respiratory Rate 20 12/17/23 23:57 Blood Pressure 171/103 H 12/17/23 23:57 Pulse Oximetry 100 12/17/23 23:57 Oxygen Delivery Room Air 12/17/23 18:30 <Cynthia Pastor PA-C - Last Filed: 12/18/23 00:45> Lab Data Lab results reviewed: Yes I reviewed the patient's lab results. <Cynthia Pastor PA-C - Last Filed: 12/18/23 00:45> Result diagrams: 12/17/23 18:52 12/17/23 18:52 <Ave Savage PA-C - Last Filed: 12/17/23 18:48> Labs: Lab Results 12/17/23 12/17/23 12/17/23 Range/Units 18:52 19:17 20:54 WBC 14.9 H (4.5-10.0) K/mm3 RBC 4.23 L (4.6-6.20) M/mm3 Hgb 13.3 L (14.0-18.0) g/dL Hct 38.7 L (42.0-52.0) % MCV 91.5 (80-100) fl MCH 31.4 (26-34) pg MCHC 34.4 (32-36) g/dl RDW 14.1 (11.5-14.5) % Plt Count 164 (150-375) k/mm3 MPV 11.6 H (7.4-10.4) fl Immature Gran % (Auto) 0.4 (0-0.5) % Neut % (Auto) 83.7 H (45.5-73.1) % Lymph % (Auto) 7.3 L (18.3-44.2) % [place] % (Auto) 7.9 (2.6-8.5) % Eos % (Auto) 0.4 (0-4.4) % Baso % (Auto) 0.3 (0.2-1.2) % Lymph # (Auto) 1.09 (0.9-3.2) K/mm3 [place]ala # (Auto) 1.2 H (0.1-0.6) K/mm3 Eos # (Auto) 0.1 (0-0.3) K/mm3 Baso # (Auto) 0.1 (0.0-0.1) K/mm3 Abs Immat Gran (auto) 0.06 H (0.00-0.031) K/mm3 Absolute Neuts (auto) 12.5 H (1.3-6.7) K/mm3 Absolute Nucleated RBC 0.000 (0.0-0.012) K/mm3 Nucleated RBC % 0.0 (0.0-0.2) % PT 18.6 H (11.1-14.7) Seconds INR 1.5 APTT 47.9 H (22.3-36.8) Seconds Sodium 135 L (137-145) mmol/L Potassium 3.3 L (3.4-5.0) mmol/L Chloride 102 (98-107) mmol/L Carbon Dioxide 26 (22-30) mmol/L Anion Gap 7 (4-12) mmol/L BUN 16 (9-20) mg/dL Creatinine 1.10 (0.7-1.3) mg/dL Estim Creat Clear Calc 57 ml/min Estimated GFR > 60 (59 - ) Glucose 136 H (65-110) mg/dL Lactic Acid 1.3 (0.7-2.0) mmol/L Calcium 9.2 (8.4-10.2) mg/dL Magnesium 1.7 (1.6-2.3) mg/dL Total Bilirubin 0.9 (0.2-1.3) mg/dL AST 19 (17-59) U/L ALT 12 (6-50) U/L Alkaline Phosphatase 52 (38-126) U/L Total Creatine Kinase 63 (55-170) U/L Troponin I 0.018 (0.000-0.034) ng/mL NT-Pro-B Natriuret Pep 8550 H (19.9-100) pg/mL Total Protein 7.0 (6.3-8.2) g/dL Albumin 4.2 (3.5-5.1) g/dL Lipase 40 (23-300) U/L Urine Color Yellow (Yellow) Urine Appearance Clear (Clear) Urine pH 7.0 (5.0-9.0) Ur Specific [place] 1.015 (1.001-1.035) Urine Protein 1+ H (Negative) mg/dL Urine Glucose (UA) Negative (Negative) mg/dL Urine Ketones Negative (Negative) mg/dL Ur Blood (Man) Negative (Negative) Urine Nitrate Negative (Negative) Urine Bilirubin Negative (Negative) Urine Urobilinogen 1.0 (<2.0) mg/dL Leukocyte Esterase Rfl Negative (Negative) JUAN/UL Urine RBC 0-2 (0-2) /hpf Urine WBC 0-5 (0-3) /hpf Ur Squamous Epith Cells Occasional (Few) /hpf Urine Bacteria None seen /hpf Urine Casts 0-2 Influenza A (RT-PCR) Negative (Negative) Influenza B (RT-PCR) Negative (Negative) RSV (RT-PCR) Negative (Negative) SARS-CoV-2 RNA (RT-PCR) Negative (Negative) <Ave Savage PA-C - Last Filed: 12/17/23 18:48> Lab Results 12/17/23 12/17/23 12/17/23 Range/Units 18:52 19:17 20:54 WBC 14.9 H (4.5-10.0) K/mm3 RBC 4.23 L (4.6-6.20) M/mm3 Hgb 13.3 L (14.0-18.0) g/dL Hct 38.7 L (42.0-52.0) % MCV 91.5 (80-100) fl MCH 31.4 (26-34) pg MCHC 34.4 (32-36) g/dl RDW 14.1 (11.5-14.5) % Plt Count 164 (150-375) k/mm3 MPV 11.6 H (7.4-10.4) fl Immature Gran % (Auto) 0.4 (0-0.5) % Neut % (Auto) 83.7 H (45.5-73.1) % Lymph % (Auto) 7.3 L (18.3-44.2) % Zavala % (Auto) 7.9 (2.6-8.5) % Eos % (Auto) 0.4 (0-4.4) % Baso % (Auto) 0.3 (0.2-1.2) % Lymph # (Auto) 1.09 (0.9-3.2) K/mm3 [place] # (Auto) 1.2 H (0.1-0.6) K/mm3 Eos # (Auto) 0.1 (0-0.3) K/mm3 Baso # (Auto) 0.1 (0.0-0.1) K/mm3 Abs Immat Gran (auto) 0.06 H (0.00-0.031) K/mm3 Absolute Neuts (auto) 12.5 H (1.3-6.7) K/mm3 Absolute Nucleated RBC 0.000 (0.0-0.012) K/mm3 Nucleated RBC % 0.0 (0.0-0.2) % PT 18.6 H (11.1-14.7) Seconds INR 1.5 APTT 47.9 H (22.3-36.8) Seconds Sodium 135 L (137-145) mmol/L Potassium 3.3 L (3.4-5.0) mmol/L Chloride 102 (98-107) mmol/L Carbon Dioxide 26 (22-30) mmol/L Anion Gap 7 (4-12) mmol/L BUN 16 (9-20) mg/dL Creatinine 1.10 (0.7-1.3) mg/dL Estim Creat Clear Calc 57 ml/min Estimated GFR > 60 (59 - ) Glucose 136 H (65-110) mg/dL Lactic Acid 1.3 (0.7-2.0) mmol/L Calcium 9.2 (8.4-10.2) mg/dL Magnesium 1.7 (1.6-2.3) mg/dL Total Bilirubin 0.9 (0.2-1.3) mg/dL AST 19 (17-59) U/L ALT 12 (6-50) U/L Alkaline Phosphatase 52 (38-126) U/L Total Creatine Kinase 63 (55-170) U/L Troponin I 0.018 (0.000-0.034) ng/mL NT-Pro-B Natriuret Pep 8550 H (19.9-100) pg/mL Total Protein 7.0 (6.3-8.2) g/dL Albumin 4.2 (3.5-5.1) g/dL Lipase 40 (23-300) U/L Urine Color Yellow (Yellow) Urine Appearance Clear (Clear) Urine pH 7.0 (5.0-9.0) Ur Specific [place] 1.015 (1.001-1.035) Urine Protein 1+ H (Negative) mg/dL Urine Glucose (UA) Negative (Negative) mg/dL Urine Ketones Negative (Negative) mg/dL Ur Blood (Man) Negative (Negative) Urine Nitrate Negative (Negative) Urine Bilirubin Negative (Negative) Urine Urobilinogen 1.0 (<2.0) mg/dL Leukocyte Esterase Rfl Negative (Negative) JUAN/UL Urine RBC 0-2 (0-2) /hpf Urine WBC 0-5 (0-3) /hpf Ur Squamous Epith Cells Occasional (Few) /hpf Urine Bacteria None seen /hpf Urine Casts 0-2 Influenza A (RT-PCR) Negative (Negative) Influenza B (RT-PCR) Negative (Negative) RSV (RT-PCR) Negative (Negative) SARS-CoV-2 RNA (RT-PCR) Negative (Negative) <Cynthia Pastor PA-C - Last Filed: 12/18/23 00:45> Imaging Data Radiologist's impression: ITS Impressions Head CT 12/17/23 19:07 IMPRESSION: No acute intracranial process. Chest X-Ray 12/17/23 19:12 IMPRESSION: Pulmonary opacities may represent mild interstitial edema or respiratory bronchiolitis. 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 Severe noncalcified and calcified plaque in the petrous and cavernous portions of the right intracranial carotid artery. Severe near occlusive stenosis of the right carotid bifurcation with distal string sign. Typically the string sign is related to decreased pressure and flow distal to a severe stenosis, but can also be seen with ICA dissection, ICA thrombosis, radiation change, as well as partial recanalization of an occluded ICA. 61% stenosis of the proximal left internal carotid artery. No vertebral artery occlusion, dissection, or significant stenosis. <Cynthia Pastor PA-C - Last Filed: 12/18/23 00:45> ECG Data EKG #1: ECG completion date: 12/17/23 <SONU Krishnan Last Filed: 12/18/23 00:45> EKG Interpretation: normal rate, sinus rhythm, LBBB and no acute changes (compared to EKG 04/10) <SONU Krishnan Last Filed: 12/18/23 00:45> Critical Care Time Critical Care Time Critical Care Time: No <SONU Krishnan Last Filed: 12/18/23 00:45> Discharge Plan Discharge Clinical Impression: Lightheadedness, Acute hypokalemia, Brain aneurysm, More than 50 percent stenosis of left internal carotid artery, Stenosis of right internal carotid artery <Ave Savage PA-C - Last Filed: 12/17/23 18:48> Patient Disposition: Home, Self-Care <SONU Naranjo Last Filed: 12/17/23 18:48> Condition: Improved <SONU Naranjo Last Filed: 12/17/23 18:48> Instructions: Hypokalemia (ED), Carotid Artery Disease (DC), Weakness (ED), Lightheadedness (ED) <SONU Naranjo Last Filed: 12/17/23 18:48> Additional Instructions: Return to the emergency department if you experience fever, chest pain, shortness of breath, abdominal pain with nausea and vomiting, sudden onset weakness, numbness, or any other symptoms that are concerning to you. You had some abnormal findings on the CTA of your brain for which you need follow up with vascular surgery. I spoke with the neurologist at [place] and they said you may follow up with them outpatient for this. Call to judi velarde an appointment Follow up with your primary care doctor <Ave Savage PA-C - Last Filed: 12/17/23 18:48> Prescriptions: No Action carvedilol 25 mg tablet 25 mg PO BID Qty: 180 3RF doxazosin 4 mg tablet 4 mg PO DAILY Qty: 90 3RF furosemide 40 mg tablet 40 mg PO DAILY Qty: 90 3RF losartan 100 mg tablet 100 mg PO DAILY Qty: 90 3RF paroxetine HCl 10 mg tablet 10 mg PO DAILY Qty: 90 0RF simvastatin 20 mg tablet 20 mg PO DAILY Qty: 90 3RF amlodipine 10 mg tablet 10 mg PO DAILY Qty: 90 3RF Mounjaro 7.5 mg/0.5 mL pen injector 7.5 mg subcut WEEKLY Qty: 2 0RF Mounjaro 10 mg/0.5 mL pen injector 10 mg subcut WEEKLY Qty: 2 0RF Mounjaro 5 mg/0.5 mL pen injector 5 mg subcut WEEKLY Qty: 2 0RF Mounjaro 12.5 mg/0.5 mL pen injector 12.5 mg subcut WEEKLY Qty: 2 0RF <Ave Savage PA-C - Last Filed: 12/17/23 18:48> Follow-up/Referrals: Barry Ralph MD [Primary Care Provider] - 3 Days <Ave Savage PA-C - Last Filed: 12/17/23 18:48>
[2023-12-17 18:59] LABS: Basophils Absolute Auto 0.1 K/mm3 (0.0-0.1); Basophils Percent Auto 0.3 % (0.2-1.2); Eosinophils Absolute Auto 0.1 K/mm3 (0-0.3); Eosinophils Percent Auto 0.4 % (0-4.4); Hematocrit 38.7 % (42.0-52.0); Hemoglobin 13.3 g/dL (14.0-18.0); Immature Granulocyte Absolute 0.06 K/mm3 (0.00-0.031); Immature Granulocyte Percent A 0.4 % (0-0.5); Lymphocytes Absolute Auto 1.09 K/mm3 (0.9-3.2); Lymphocytes Percent Auto 7.3 % (18.3-44.2); Mean Corpuscular HGB Conc 34.4 g/dl (32-36); Mean Corpuscular Hemoglobin 31.4 pg (26-34); Mean Corpuscular Volume 91.5 fl (80-100); Mean Platelet Volume 11.6 fl (7.4-10.4); Monocytes Absolute Auto 1.2 K/mm3 (0.1-0.6); Monocytes Percent Auto 7.9 % (2.6-8.5); Neutrophils Absolute Auto 12.5 K/mm3 (1.3-6.7); Neutrophils Percent Auto 83.7 % (45.5-73.1); Platelet Count Result 164 k/mm3 (150-375); Red Blood Count 4.23 M/mm3 (4.6-6.20); Red Cell Distribution Width 14.1 % (11.5-14.5); White Blood Count 14.9 K/mm3 (4.5-10.0)
[2023-12-17 19:09] LABS: Alanine Aminotransferase 12 U/L (6-50); Albumin Level 4.2 g/dL (3.5-5.1); Alkaline Phosphatase 52 U/L (38-126); Anion Gap 7 mmol/L (4-12); Aspartate Amino Transferase 19 U/L (17-59); Bilirubin,Total 0.9 mg/dL (0.2-1.3); Blood Urea Nitrogen 16 mg/dL (9-20); Calcium 9.2 mg/dL (8.4-10.2); Carbon Dioxide 26 mmol/L (22-30); Chloride 102 mmol/L (98-107); Creatine Kinase 63 U/L (55-170); Estimated CRCL calculation 57 ml/min; Estimated Glomerular Filt Rate > 60; Glucose 136 mg/dL (65-110); Lipase 40 U/L (23-300); Magnesium 1.7 mg/dL (1.6-2.3); Potassium 3.3 mmol/L (3.4-5.0); Sodium 135 mmol/L (137-145)
[2023-12-17 19:10] LABS: Lactic Acid Reflex 1.3 mmol/L (0.7-2.0)
[2023-12-17 19:16] LABS: INR 1.5; Prothrombin Time 18.6 Seconds (11.1-14.7)
[2023-12-17 19:17] LABS: Partial Thromboplastin Time 47.9 Seconds (22.3-36.8)
[2023-12-17 19:21] LABS: Troponin I 0.018 ng/mL (0.000-0.034)
[2023-12-17 19:31] VITALS: BP 151/70; PULSE 96; RESP 19; O2SAT 100
[2023-12-17 19:40] LABS: Appearance Urine Clear (Clear); Bacteria Urine None Seen /hpf; Bilirubin Urine Negative (Negative); Blood Urine Negative (Negative); Color Urine Yellow (Yellow); Glucose Urine UA Negative (Negative); Ketones Urine Negative (Negative); Leukocyte Esterase Ur Negative LEU/UL (Negative); Nitrate Urine Negative (Negative); Non Pathogenic Casts 0-2; Protein Urine 1+ mg/dL (Negative); RBC Urine 0-2 /hpf (0-2); Specific Grav Ur 1.015 (1.001-1.035); Squamous Epithelial Cell Urine Occasional /hpf (Few); WBC Urine 0-5 /hpf (0-3)
[2023-12-17] MEDS: SODIUM CHLORIDE 0.9% IV 1,000 ML 999 ML IV CONT (19:43)
[2023-12-17 19:44] LABS: Add Urine Microscopic? YES
[2023-12-17] MEDS: ONDANSETRON INJ 4 MG/2 ML VIAL IV PUSH (19:44)
[2023-12-17 20:01] VITALS: BP 117/39; PULSE 88; RESP 16; O2SAT 94
[2023-12-17 20:31] VITALS: BP 135/60; PULSE 87; RESP 18
[2023-12-17] MEDS: POTASSIUM CHLORIDE INJ 40 MEQ in SODIUM CHLORIDE 0.9% IV 500 ML 130 MEQ IVPB (20:34)
[2023-12-17] MEDS: SODIUM CHLORIDE 0.9% IV 500 ML 133 ML (20:34)
[2023-12-17] MEDS: MECLIZINE HCL 25 MG TABLET PO (20:35)
[2023-12-17 20:43] LABS: NT Pro B Type Natriuretic Pept 8550 pg/mL (19.9-100)
[2023-12-17 21:35] LABS: Influenza A QL RT-PCR Negative (Negative); Influenza B QL RT-PCR Negative (Negative); RSV RNA, RT-PCR Negative (Negative); SARS-CoV-2 RNA PCR Negative (Negative)
[2023-12-17 23:03] VITALS: BP 138/71; PULSE 85; RESP 17; O2SAT 97
[2023-12-17 23:57] VITALS: BP 171/103; PULSE 91; RESP 20; O2SAT 100
[2023-12-18] MEDS: POTASSIUM CHLORIDE 20 MEQ PACKET (FOR LIQUID) 40 MEQ PO (00:03)
== END 2023-12-18 00:56 | disposition home or self-care (01) ==
PROVIDERS: Physician Assistant; Emergency Provider Physician Assistant; PCP Family Medicine
DX: I67.1 Cerebral aneurysm, nonruptured (principal); I65.23 Occlusion and stenosis of bilateral carotid arteries; E87.6 Hypokalemia; R42 Dizziness and giddiness; I35.9 Nonrheumatic aortic valve disorder, unspecified; I48.91 Unspecified atrial fibrillation; I50.9 Heart failure, unspecified; J44.9 Chronic obstructive pulmonary disease, unspecified; Z95.2 Presence of prosthetic heart valve; Z79.85 Long-term (current) use of injectable non-insulin antidiabetic drugs; I44.0 Atrioventricular block, first degree; I44.7 Left bundle-branch block, unspecified; Z20.822 Contact with and (suspected) exposure to COVID-19
CPT/HCPCS: 36415; 70450; 70496; 70498; 71046; 80053; 81001; 82550; 83605; 83690; 83735; 83880; 84484; 85025; 85610; 85730; 87637; 93005; 96361; 96365; 96366; 96375; 99284; A9270; J2405; J3480; J7030; J7040; Q9967

== ENCOUNTER 2024-02-27 12:30 | Outpatient (RCR) | payer MEDICARE, SELFPAY ==
--- NOTE | 2024-01-16 17:49 | PTOPEVAL1 ---
Assessment and note entered by Flavia Hernandez, PT Evaluation Information Assessment Status Evaluation Diagnosis lowback pain radiating to BLE Onset insidious onset Therapy Conditions weakness, pain, balance deficits, gait impairments Subjective Information Pt reports sharp pain to lowback that radiates to B buttocks area that has been going on for approx. a year, pain is aggravated when standing and walking, relieved by sitting and resting or taking medication. States pain increased with sit to stand transitions and immediate standing activities, reports has recently been having falls at home (3-4 in the past 6 months) but has been lukas enough that he did not end up breaking bones or hurting self too much; During these falls , pt. reports that oftentimes, he feels that his legs give out on him, but other times, he gets light-headed and would lose his balance; States that sitting or bending over helps so he uses a shopping cart for balance and to relieve pain when needing to stand for longer time. Reported Pain Level Pain Score 6: Self Report Assessment PT Clinical Summary Pt is 83 yo male, presents to therapy with c/o Low Back Pain described as dull and achy and radiating , generalized weakness, unsteadiness on feet, postural deficits, muscle imbalance with prominent weakness to LLE, has had repeated falls at home jasmeet when ambulating on uneven surfaces due to decreased ability to correct his posture when he sways backwards; also noted significant gait deviation of limping with decreased stance time to RLE. Plan of Care Interventions Check Out for Orthotic/Pr,Electrical Stimulation, Gait Training,Hot Pack/Cold Pack,Manual Therapy, Mechanical Traction,Neuro Re-education,Patient/ Caregiver Education,Therapeutic Activities, Therapeutic Exercise,Ultrasound Other Interventions Dry Needling PT Services Indicated Yes Treatment Frequency and 2-3x/wk x 12 visits Duration These treatments will address the objective and functional deficits as defined above. The patient will be advanced safely and appropriately in order for the patient to progress towards his/her prior level of function. Additional exercises will be introduced and as well as a comprehensive home exercise program upon discharge, if needed, ?to ensure carryover of functional gains achieved in the clinic. This treatment plan has been reviewed and agreement upon by the patient.
--- NOTE | 2024-01-28 11:27 | PCPTNOTE ---
Patient called & cancelled scheduled appointment this date due to a scheduling conflict.
--- NOTE | 2024-04-10 10:26 | PTOPDC ---
Assessment and note entered by Ubaldo Castro Evaluation Information Assessment Status Discharge Diagnosis lowback pain radiating to BLE Onset insidious onset Subjective Information Pt. reports continue to feel pain when he is standing and walking; states has little to no change to the pain level since starting therapy. However, he reports he feels stronger and his son told him he seem to be walking better; states he has not had any falls since starting his exercises . Assessment PT Clinical Summary Pt. is independent with a HEP. He demonstrates improved balance. He will be discharged at this time. Plan of Care PT Services Indicated No
== END 2024-04-03 10:20 | disposition home or self-care (01) ==
LOC: ANHPT 12:30
PROVIDERS: PCP Family Medicine; Visit Provider Family Medicine
DX: R29.898 Other symptoms and signs involving the musculoskeletal system (principal)
CPT/HCPCS: 97014; 97110; 97112; 97116; 97140; 97161; 97530; 97750; G0283

== ENCOUNTER 2024-05-18 00:50 | Inpatient (IN) | payer MEDICARE, SELFPAY ==
[2024-05-18] VITALS (50 sets, daily range): BP systolic 140–163; BP diastolic 56–108; PULSE 63–93; RESP 12–27; TEMP 36.2–36.7; O2SAT 86–100; BMI 31.8
--- NOTE | ~2024-05-18 | XR_ITS ---
XR chest 1V portable 05/18/2024 01:33 Indication: Shortness of breath Procedure: AP portable chest Comparison: Comparison to multiple prior studies sequentially, with oldest reviewed study dated 05/19. Findings: Status post median sternotomy for CABG. Cardiomegaly. Mild interstitial edema. There is a p rosthetic heart valve. Possible small right effusion. No pneumothorax. Impression: 1: Cardiomegaly with mild interstitial edema. Reviewed, dictated and finalized at location B. Impression: 1: Cardiomegaly with mild interstitial edema.
--- NOTE | 2024-05-18 00:54 | ECG_ITS ---
Test Date: 2024-05-18 00:59:25 Measurements Intervals [place] Rate: 81 P: 43 SD: 186 QRS: 101 QRSD: 176 T: -67 QT: 417 QTc: 487 Interpretive Statements SINUS RHYTHM WITH ATRIAL COUPLET AND ATRIAL PREMATURE COMPLEX RIGHT AXIS DEVIATION LEFT BUNDLE BRANCH BLOCK BASELINE ARTIFACT- I, II, III, AVR, AVL, AVF, V1 ABNORMAL ECG No previous ECG available for comparison Electronically Signed On 05-18-2024 09:10:15 CDT by Isaiah Burk D.O.
[2024-05-18 01:17] LABS: Basophils Percent Auto 0.3 % (0.2-1.2); Hematocrit 40.8 % (42.0-52.0); Hemoglobin 13.6 g/dL (14.0-18.0); Immature Granulocyte Absolute 0.14 K/mm3 (0.00-0.031); Immature Granulocyte Percent A 0.9 % (0-0.5); Lymphocytes Absolute Auto 1.29 K/mm3 (0.9-3.2); Lymphocytes Percent Auto 8.7 % (18.3-44.2); Mean Corpuscular HGB Conc 33.3 g/dl (32-36); Mean Corpuscular Hemoglobin 32.2 pg (26-34); Mean Corpuscular Volume 96.7 fl (80-100); Mean Platelet Volume 11.6 fl (7.4-10.4); Monocytes Absolute Auto 0.8 K/mm3 (0.1-0.6); Monocytes Percent Auto 5.7 % (2.6-8.5); Neutrophils Absolute Auto 12.5 K/mm3 (1.3-6.7); Neutrophils Percent Auto 84.4 % (45.5-73.1); Platelet Count Result 208 k/mm3 (150-375); Red Blood Count 4.22 M/mm3 (4.6-6.20); White Blood Count 14.8 K/mm3 (4.5-10.0)
[2024-05-18] MEDS: methylPREDNISolone SOD SUCC 40 MG VIAL IV PUSH ×4 (01:18→20:15)
[2024-05-18] MEDS: MAGNESIUM SULF 2 GM/WATER 50ML 2 GM/50 ML BAG IVPB (01:18)
--- NOTE | 2024-05-18 01:19 | ED.SOB ---
HPI - SOB/Dyspnea General Chief Complaint: Shortness of Breath/Dyspnea Stated Complaint: sob Time Seen by Provider: 05/18/24 00:58 History of Present Illness HPI Narrative: 83-year-old male with a past medical history significant for congestive heart failure, COPD, atrial fibrillation, diabetes, aortic valve replacement, hypertension. Patient is on multiple medications including his Eliquis. Today patient presents in respiratory distress. He called EMS initially as he was having sudden onset difficulty in breathing at home. He took multiple albuterol inhaler attempts without any significant relief of his symptoms. Patient's symptoms got worsened included tripod position, diaphoresis and wheezing. EMS found him at 86% saturation on room air. He is not on any supplemental oxygen. Has not been on BiPAP according to the patient. Patient was placed on CPAP with a PEEP of 10 and still saturating 85%. Patient was given DuoNeb, 10 mg of Decadron EN route. On initial presentation patient appears uncomfortable and has conversational dyspnea the 3 words. He sits upright, unable to lie back or lie flat. Denies any chest pain, back pain, nausea, vomiting, headache, vision changes, abdominal pain. Was otherwise in his normal state of health. He was transition to BiPAP with respiratory support at bedside. Related Data Home Medications Medication Instructions Recorded Confirmed albuterol sulfate 90 mcg/actuation 1 inh inhalation Q4H 12/27/23 05/18/24 aerosol inhaler apixaban 5 mg tablet 5 mg PO BID 12/27/23 05/18/24 aspirin 81 mg tablet,delayed 81 mg PO DAILY 12/27/23 05/18/24 release (Adult Aspirin Regimen) glipizide 5 mg tablet, extended 5 mg PO DAILY 12/27/23 05/18/24 release 24 hr lancets 30 gauge 12/27/23 methocarbamol 500 mg tablet 500 mg PO BID PRN MUSCLE SPASMS 12/27/23 05/18/24 Allergies Allergy/AdvReac Type Severity Reaction Status Date / Time metformin AdvReac Intermediate Diarrhea Verified 05/18/24 02:18 Review of Systems Review of Systems: As reviewed above [facility] Past Medical History Medical History Aortic valve disease Atrial fibrillation CHF (congestive heart failure) COPD (chronic obstructive pulmonary disease) Diabetes mellitus Surgical History Surgical History H/O aortic valve replacement Family History Family History Father Hypertension Heart disease Mother Cancer Diabetes mellitus Hypertension Social History Social History Smoking status: Never smoker Alcohol intake: never Substance use: never Substance use type: does not use Do You Feel Safe in your Home?: Yes Lack of Transportation: No Lack of Food: Never True Current Housing: I Have Housing Concerned About Future Housing: No Difficulty Paying Gas/Electric Bills: No Difficulty Paying for Meds: No Currently Unemployed: No Education: Decline to Answer Difficulty w/ Childcare or Family Care: No Living arrangements: with family Occupation/Education: retired Gender identity (if verbalized by the patient): Male Spiritual care concerns: No Exam Narrative: GENERAL: Uncomfortable appearing, conversationally dyspneic, diaphoretic, on CPAP HEAD: [Normocephalic, atraumatic.] EYES: [PERRLA and EOMI.] ENT: Nares clear, no rhinorrhea or epistaxis. Mucous membranes moist. NECK: Supple. CHEST: Coarse breath sounds bilaterally, diminished air entry, prolonged end-expiratory wheezing appreciated throughout all lung malin. Symmetric chest rise noted. HEART: [Regular rate and rhythm]. No murmur heard. [Normal peripheral pulses.] ABDOMEN: [Soft, nondistended], [nontender], [No rigidity or guarding] EXTREMITIES: Normal range of motion. [No edema.] SKIN
[2024-05-18] MEDS: ALBUTEROL SULFATE NEB 2.5 MG/3 ML INH 10 MG INHALATION (01:21)
[2024-05-18] MEDS: IPRATROPIUM BR 0.02% INH SOLN 0.5 MG/2.5 ML VIAL 1 MG INHALATION (01:21)
[2024-05-18 01:28] LABS: Alanine Aminotransferase 25 U/L (6-50); Albumin Level 4.5 g/dL (3.5-5.1); Alkaline Phosphatase 49 U/L (38-126); Anion Gap 10 mmol/L (4-12); Aspartate Amino Transferase 46 U/L (17-59); Bilirubin,Total 0.5 mg/dL (0.2-1.3); Blood Urea Nitrogen 31 mg/dL (9-20); Calcium 9.1 mg/dL (8.4-10.2); Carbon Dioxide 24 mmol/L (22-30); Chloride 106 mmol/L (98-107); Estimated CRCL calculation 55 ml/min; Estimated Glomerular Filt Rate > 60; Glucose 187 mg/dL (65-110); Potassium 4.4 mmol/L (3.4-5.0); Sodium 140 mmol/L (137-145)
--- NOTE | 2024-05-18 01:44 | ECG_ITS ---
Test Date: 2024-05-18 01:48:08 Measurements Intervals [place] Rate: 75 P: 0 NE: 0 QRS: 83 QRSD: 173 T: -14 QT: 447 QTc: 502 Interpretive Statements SINUS RHYTHM WITH SUPRAVENTRICULAR TRIGEMINY LEFT BUNDLE BRANCH BLOCK BASELINE ARTIFACT- I, II, III, AVR, AVL, AVF ABNORMAL ECG Compared to ECG 05/18/2024 00:59:25 SUPRAVENTRICULAR TRIGEMINY NOW PRESENT Electronically Signed On 05-18-2024 09:12:18 CDT by Isaiah Burk D.O.
[2024-05-18 01:46] LABS: NT Pro B Type Natriuretic Pept 6810 pg/mL (19.9-100)
[2024-05-18] MEDS: ASPIRIN 325 MG TABLET PO (02:05)
[2024-05-18] MEDS: cefTRIAXone 2 GM/NS 100 ML 2 GM/100 ML BAG IVPB (02:17)
[2024-05-18] MEDS: DOXYCYCLINE 100 MG/NS 100 ML 100 MG/100 ML BAG IVPB (02:53)
--- NOTE | 2024-05-18 03:47 | ECG_ITS ---
Test Date: 2024-05-18 04:00:32 Measurements Intervals [place] Rate: 71 P: 3 TN: 160 QRS: 97 QRSD: 174 T: -25 QT: 459 QTc: 499 Interpretive Statements SINUS RHYTHM WITH OCCASIONAL SUPRAVENTRICULAR PREMATURE COMPLEXES LEFT BUNDLE BRANCH BLOCK BASELINE ARTIFACT- I, II, III, AVR, AVL, AVF ABNORMAL ECG Compared to ECG 05/18/2024 01:48:08 SUPRAVENTRICULAR TRIGEMINY NO LONGER PRESENT Electronically Signed On 05-18-2024 09:14:57 CDT by Isaiah Burk D.O.
[2024-05-18 04:00] LABS: Alveolar/Arterial O2 Gradient 164.1 mmHg; Base Excess ABG -1.7 mEq/l (+/-2.0); Carboxyhemoglobin 1.1 % THb (0-2.0); Fractional Inspired Oxygen 40 %; HCO3 ABG 22.5 mEq/l (22.0-26.0); Methemoglobin ABG 0.3 %THb (0-1.5); Oxygen Content ABG 17.3 %vol (16.0-22.0); Oxygen Saturation ABG 95.8 % (95.0-100.0); Oxyhemoglobin 94.5 % THb (90.0-100.0); PCO2 ABG 36.7 mmHg (35.0-45.0); PO2 ABG 78.9 mmHg (80.0-100.0); PO2 FiO2 Ratio Arterial Blood 1.97 %; Reduced Hemoglobin 4.1 %THb (0-5.0); pH ABG 7.406 (7.350-7.450)
[2024-05-18 04:01] LABS: Device BIPAP; Inspiratory Pressure 12 cmH2O; Modified Allen's Test Pass; Site Drawn RIGHT RADIAL
[2024-05-18 04:02] LABS: Expiratory Pressure 6 cmH2O
--- NOTE | 2024-05-18 04:43 | ADMGEN ---
This patient, Ashkan Pryor, was admitted to IMU Room 214-01 at 0424. Patient/family oriented to hospital policies and general routines including ID bracelet, bed and alarms, visiting hours, pain management, procedures, bathroom and other care routines, personal items, smoking policy, room service/diet, and visiting hours. Information on how to activate the Rapid Response Team has been discussed. Patient/Family are encouraged to report perceived risks to care and to ask questions if they do not understand what they are told or what they should do.
--- NOTE | 2024-05-18 05:47 | PC.NURSE ---
[facility] cardiology group contacted via phone for consult & due to critical troponin. Message was left with bilingual receptionist for Dr. Vargas
[2024-05-18] MEDS: FUROSEMIDE INJ 40 MG/4 ML VIAL IV PUSH (06:24)
--- NOTE | 2024-05-18 07:24 | PM.IMHP ---
H&P: HPI History of Present Illness Date/Time: 05/18/24 07:24 Chief Complaint: SOB/Dyspnea Narrative: 83-year-old male with a past medical history significant for congestive heart failure, COPD, atrial fibrillation, diabetes, aortic valve replacement, hypertension. Patient is on multiple medications including his Eliquis. Today patient presents in respiratory distress. He called EMS initially as he was having sudden onset difficulty in breathing at home. He took multiple albuterol inhaler attempts without any significant relief of his symptoms. Patient's symptoms got worsened included tripod position, diaphoresis and wheezing. EMS found him at 86% saturation on room air. He is not on any supplemental oxygen. Has not been on BiPAP according to the patient. Patient was placed on CPAP with a PEEP of 10 and still saturating 85%. Patient was given DuoNeb, 10 mg of Decadron EN route. On initial presentation patient appears uncomfortable and has conversational dyspnea the 3 words. He sits upright, unable to lie back or lie flat. Denies any chest pain, back pain, nausea, vomiting, headache, vision changes, abdominal pain. Was otherwise in his normal state of health. He was transition to BiPAP with respiratory support at bedside. In the ED patient was transitioned to BiPAP therapy with setting of /, magnesium sulfate to 2 g, scheduled Solu-Medrol every 6 hours. EKG shows a left bundle branch block but no Sgarbossa criteria or concerns for acute ischemia. Evidence of previous left to bundle branch block in the EKG on 03/24/22. WBC was remarkable for 14.8 with 84% neutrophils, rising in troponin from 1.9 to 5.1 to 10.1 , BNP of 6810, ABG shows pH of 7.4, pCO2 36.7, PO2 78.9 with a BiPAP. chest x-ray shows cardiomegaly with mild interstitial edema. Echocardiogram has been ordered. Currently holding aspirin and Plavix until Cardiology evaluates. Patient was given Lasix 40mg IV today in the morning around 6:00 a.m.. During the evaluation at the bedside patient is asymptomatic. Denies any chest pain shortness a breath, diaphoresis. Patient reports of having aortic valve replacement in the year of 2007 and redone in 2010. Patient believes its prosthetic valve. Patient also reports of having COPD due [place] Patient denies smoking and using oxygen at home. Currently patient is off BiPAP and in nasal cannula at 5 L and saturating around 96. We will repeat ABG and EKG. Denies any other significant past medical history. Cardiology has been consulted Review of Systems Review of Systems: As reviewed above [facility] Past Medical History Medical History Aortic valve disease Atrial fibrillation CHF (congestive heart failure) COPD (chronic obstructive pulmonary disease) Diabetes mellitus Surgical History Surgical History H/O aortic valve replacement Family History Family History Father Hypertension Heart disease Mother Cancer Diabetes mellitus Hypertension Social History Social History Smoking status: Never smoker Alcohol intake: never Substance use: never Substance use type: does not use Do You Feel Safe in your Home?: Yes Lack of Transportation: No Lack of Food: Never True Current Housing: I Have Housing Concerned About Future Housing: No Difficulty Paying Gas/Electric Bills: No Difficulty Paying for Meds: No Currently Unemployed: No Education: Decline to Answer Difficulty w/ Childcare or Family Care: No Living arrangements: with family Occupation/Education: retired Gender identity (if verbalized by the patient): Male Spiritual care concerns: No Meds Home Medications and Allergies Home Medications Medication Instructions Recorded Confir
--- NOTE | 2024-05-18 08:34 | ECG_ITS ---
Test Date: 2024-05-18 08:54:49 Measurements Intervals [place] Rate: 74 P: 38 ID: 212 QRS: 95 QRSD: 166 T: 49 QT: 451 QTc: 503 Interpretive Statements SINUS RHYTHM WITH FIRST DEGREE AV BLOCK WITH OCCASIONAL SUPRAVENTRICULAR PREMATURE COMPLEXES LEFT BUNDLE BRANCH BLOCK BASELINE ARTIFACT- I, II, III, AVR, AVL, AVF ABNORMAL ECG Compared to ECG 05/18/2024 04:00:32 NO SIGNIFICANT CHANGE Electronically Signed On 05-18-2024 09:17:30 CDT by Isaiah Burk D.O.
[2024-05-18] MEDS: SIMVASTATIN 20 MG TABLET PO (08:35)
[2024-05-18] MEDS: amLODIPine BESYLATE 10 MG TABLET PO (08:35)
[2024-05-18 09:28] LABS: Base Excess ABG 0.3 mEq/l (+/-2.0); Carboxyhemoglobin 1.2 % THb (0-2.0); Fractional Inspired Oxygen 40 %; HCO3 ABG 24.8 mEq/l (22.0-26.0); Methemoglobin ABG 0.3 %THb (0-1.5); Oxygen Content ABG 13.3 %vol (16.0-22.0); PCO2 ABG 39.6 mmHg (35.0-45.0); PO2 FiO2 Ratio Arterial Blood 0.94 %; Reduced Hemoglobin 26.3 %THb (0-5.0); Total Hemoglobin 13.1 g/dL (12.0-18.0); pH ABG 7.415 (7.350-7.450)
[2024-05-18 09:37] LABS: Oxygen Saturation ABG 72.6 % (95.0-100.0); Oxyhemoglobin 72.2 % THb (90.0-100.0)
[2024-05-18 09:38] LABS: Device NASAL CANNULA; Modified Allen's Test Pass; PO2 ABG 37.7 mmHg (80.0-100.0); Site Drawn LEFT RADIAL
[2024-05-18 10:05] LABS: Alveolar/Arterial O2 Gradient 167.5 mmHg; Carboxyhemoglobin 1.2 % THb (0-2.0); Fractional Inspired Oxygen 40 %; HCO3 ABG 19.9 mEq/l (22.0-26.0); Methemoglobin ABG 0.3 %THb (0-1.5); Oxygen Content ABG 17.4 %vol (16.0-22.0); Oxygen Saturation ABG 96.8 % (95.0-100.0); Oxyhemoglobin 95.1 % THb (90.0-100.0); PCO2 ABG 29.4 mmHg (35.0-45.0); PO2 ABG 83.9 mmHg (80.0-100.0); Reduced Hemoglobin 3.4 %THb (0-5.0); pH ABG 7.448 (7.350-7.450)
[2024-05-18 10:06] LABS: Device NASAL CANNULA; Modified Allen's Test Pass; Site Drawn RIGHT RADIAL
--- NOTE | 2024-05-18 11:09 | PM.CNCAR ---
Assessment and Plan Assessment and plan (1) NSTEMI (non-ST elevated myocardial infarction): Code(s): I21.4 - Non-ST elevation (NSTEMI) myocardial infarction Status: Acute Assessment and Plan: 83-year-old male with history of bio AVR x2 ( first bio AVR on 12/06/2004 - 2nd bioAVR using 26 mm pericardial valve on 07/24/2011 the setting of degenerative valve at [facility]);CHFpEF ( Previously had LV dysfunction which improved over time); PAF on chronic anticoagulation with apixaban, chronic LBBB, hypertension, type 2 diabetes mellitus on oral hypoglycemics, dyslipidemia. - patient admitted to the hospital with dyspnea, wheezing, chest pressure; found to be hypoxemic . EKG showed sinus rhythm, PACs, chronic LBBB. Troponins elevated, trending up with current peak troponin level of 10.1. NT proBNP elevated at 6810. Patient had remote coronary angiogram done on 07/19/2011 prior to his redo AVR which reportedly did not show any significant obstructive disease. He does have coronary risk factors including age, hypertension, diabetes mellitus, therefore, cannot rule out underlying obstructive CAD, even though his current clinical presentation is more suggestive of COPD exacerbation. I spoke with patient and his at length about additional testing. Patient wants to proceed with coronary angiogram to rule out any significant obstructive CAD. His last dose of apixaban was yesterday, which has been put on hold. Continue aspirin, statin. Hold apixaban, may use low-molecular weight heparin for now, last dose tonight. Hold tomorrow a.m. dose. Keep NPO from midnight. (2) CHF (congestive heart failure): Code(s): I50.9 - Heart failure, unspecified Status: Acute Assessment and Plan: LVEF 55% from 11/13/[address] [facility]. currently on furosemide. Monitor electrolytes and renal function. Continue carvedilol, resume losartan for hypertension. Repeat echo with Doppler has been ordered by Primary team. (3) PAF (paroxysmal atrial fibrillation): Code(s): I48.0 - Paroxysmal atrial fibrillation Status: Acute Assessment and Plan: apixaban on hold in anticipation for possible cardiac catheterization (4) COPD exacerbation: Code(s): J44.1 - Chronic obstructive pulmonary disease with (acute) exacerbation Status: Acute Assessment and Plan: management as per primary team. History of Present Illness History of Present Illness Consult date/time: 05/18/24 11:09 Requesting physician: Jeremy Kunz MD Consult reason: Other ( non-STEMI) Reason For Visit: COPD exacerbation, NSTEMI Narrative: DATE OF CONSULT: 05/18/2024 REASON FOR CONSULT: non-STEMI REQUESTING PHYSICIAN: Dr. Kunz CHIEF COMPLAINT: shortness of breath HPI: 83-year-old male with history of bio AVR x2 ( first bio AVR on 12/06/2004 - 2nd bioAVR using 26 mm pericardial valve on 07/24/2011 the setting of degenerative valve at [facility]);CHFpEF ( Previously had LV dysfunction which improved over time); PAF on chronic anticoagulation with apixaban, chronic LBBB, hypertension, type 2 diabetes mellitus on oral hypoglycemics, dyslipidemia Patient brought to [facility] Emergency Room Via EMS on 05/18/2024 with shortness of breath that woke him up last night. Patient was found to be hypoxemic with SpO2 86%. He gives history of Chronic dyspnea due to COPD which he attributes to [place]. He also reported occasional chest tightness. At baseline, patient has limited mobility due to back pain. But he does get short of breath with mild activity. No palpitation, dizziness or syncope. He follows up with Cardiology upon [facility]. EKG on my personal interpretation showed sinus rhythm, PACs, chronic LBBB. troponins elevated, trending up with current peak troponin level of 10.1. NT proBNP elevated at 6810. Chest x-ray lali
[2024-05-18] MEDS: IPRATROPIUM 0.5 MG/ALBUTEROL SULFATE 2.5 MG AMPUL.NEB 3 ML INHALATION ×4 (12:25→23:29)
[2024-05-18] MEDS: ENOXAPARIN 120 MG/0.8 ML SYRINGE 105 MG SUB-Q ×2 (13:14→20:15)
[2024-05-18 15:28] LABS: Glucose Point of Care 308 mg/dl (65-105)
[2024-05-18 15:45] LABS: Hemoglobin A1C 5.6 % (<5.7)
[2024-05-18] MEDS: INSULIN ASPART (*BKC) 100 UNITS/ML SUB-Q ×2 (17:50→20:12)
[2024-05-18 17:54] LABS: Glucose Point of Care 351 mg/dl (65-105)
[2024-05-18 20:07] LABS: Glucose Point of Care 321 mg/dl (65-105)
[2024-05-19] VITALS (31 sets, daily range): BP systolic 135–172; BP diastolic 57–85; PULSE 71–89; RESP 15–20; TEMP 36.4–36.6; O2SAT 93–96
[2024-05-19] MEDS: methylPREDNISolone SOD SUCC 40 MG VIAL IV PUSH ×4 (01:59→20:47)
[2024-05-19] MEDS: IPRATROPIUM 0.5 MG/ALBUTEROL SULFATE 2.5 MG AMPUL.NEB 3 ML INHALATION ×3 (04:55→20:30)
[2024-05-19 04:56] LABS: Hematocrit 35.4 % (42.0-52.0); Hemoglobin 11.9 g/dL (14.0-18.0); Mean Corpuscular HGB Conc 33.6 g/dl (32-36); Mean Corpuscular Hemoglobin 32.3 pg (26-34); Mean Corpuscular Volume 96.2 fl (80-100); Mean Platelet Volume 11.5 fl (7.4-10.4); Platelet Count Result 180 k/mm3 (150-375); Red Blood Count 3.68 M/mm3 (4.6-6.20); Red Cell Distribution Width 14.9 % (11.5-14.5); White Blood Count 13.4 K/mm3 (4.5-10.0)
[2024-05-19 05:16] LABS: Alanine Aminotransferase 28 U/L (6-50); Albumin Level 3.8 g/dL (3.5-5.1); Alkaline Phosphatase 45 U/L (38-126); Anion Gap 7 mmol/L (4-12); Aspartate Amino Transferase 59 U/L (17-59); Bilirubin,Total 0.4 mg/dL (0.2-1.3); Blood Urea Nitrogen 37 mg/dL (9-20); Calcium 8.8 mg/dL (8.4-10.2); Carbon Dioxide 25 mmol/L (22-30); Chloride 104 mmol/L (98-107); Estimated CRCL calculation 56 ml/min; Estimated Glomerular Filt Rate > 60; Glucose 195 mg/dL (65-110); Potassium 4.1 mmol/L (3.4-5.0); Sodium 136 mmol/L (137-145)
--- NOTE | 2024-05-19 06:00 | ECHO_ITS ---
Patient Info Name: Ashkan Pryor Age: 83 years : 1940 Gender: Male Ht: 72 in Wt: 220 lbs BSA: 2.27 m2 HR: 84 bpm BP: 157 / 81 mmHg Heart Rhythm: Sinus Rhythm Technical Quality: Good Exam Date: 05/19/2024 10:01 AM Exam Location: Echo Lab Patient Status: Inpatient Admit Date: 05/18/2024 Staff Ordering Physician: Jeremy Kunz MD Health Care Administrator: Cleve Dougherty RDCS Attending Provider: Blanca Parmar DO Referring Physician: Joaquina TYLER; Exam Type: CA echo dop color flow w con Study Info Indications - NSTEMI Complete two-dimensional, color flow and Doppler transthoracic echocardiogram is performed with contrast to opacify the left ventricle and to improve the deliniation of the left ventricle endocardial borders. Summary 1. The left ventricular size and systolic function is normal. 2. The LVEF is approximately 50-55%. There is dyskinesis of ventricular septum suggestive of bundle branch block. 3. There is aortic valve prosthesis. There is no aortic regurgitation. The gradients across the aortic valve does not suggest stenosis. Left Ventricle The left ventricular size and systolic function is normal. The LVEF is approximately 50-55%. There is dyskinesis of ventricular septum suggestive of bundle branch block. Right Ventricle The right ventricle size and systolic function is normal. Left Atria The left atrial size is moderately enlarged. Right Atria The right atrial size is normal. Aortic Valve There is aortic valve prosthesis. There is no aortic regurgitation. The gradients across the aortic valve does not suggest stenosis. Pulmonic Valve The pulmonic valve is not well visualized. There is no color Doppler evidence of pulmonary regurgitation. Mitral Valve Mitral annulus and leaflets appear sclerotic. There is mild mitral regurgitation. Tricuspid Valve The tricuspid valve leaflets are normal. There is mild tricuspid regurgitation. There is moderate pulmonary hypertension. The RVSP is calculated to be 57 mmHg. The tricuspid valve leaflets are normal. Pericardium/Pleural There is small amount of pericardial effusion that is circumferential. Left Ventricular Outflow Tract Name Value Normal LVOT 2D LVOT Diameter 1.85 cm LVOT Doppler LVOT Peak Gradient 4 mmHg LVOT Mean Gradient 2 mmHg LVOT VTI 24.72 cm LVOT VTI/AV VTI Ratio 0.69 LVOT Stroke Volume 66.69 ml LVOT CO 5.19 l/min LVOT CI 2.28 L/min/m2 Pulmonic Valve Name Value Normal PV Doppler PV Peak Gradient 5 mmHg Mitral Valve Name Value Normal MV Doppler
[2024-05-19 08:13] LABS: Glucose Point of Care 179 mg/dl (65-105)
[2024-05-19] MEDS: LOSARTAN POTASSIUM 50 MG TABLET PO (08:32)
[2024-05-19] MEDS: ATORVASTATIN 40 MG TABLET PO (08:32)
[2024-05-19] MEDS: PERFLUTREN LIPID MICROSPHERES 1.5 ML VIAL DILUTED TO 10 ML TOTAL VOLUME IV PUSH (10:20)
--- NOTE | 2024-05-19 11:24 | IVDEFINITY ---
Prior to administration of IV Definity the patient was educated on the risks and benefits of the imaging enhancing agent including potential adverse side effects. The patient verbalized understanding. Allergies were verified. No exclusion criteria were identified and at least one of the following inclusion criteria were met: 1) physician request, 2) patient technically difficult to image (per the [place] [employer] guidelines of two or more segments not discernable within the apical view), or 3) questionable left ventricular function. ?
--- NOTE | 2024-05-19 13:11 | WPDMODSED ---
Moderate Sedation Note-Pt Data Patient Data Allergies Allergy/AdvReac Type Severity Reaction Status Date / Time metformin AdvReac Intermediate Diarrhea Verified 05/18/24 02:18 Home Medications Medication Instructions Recorded Confirmed Type carvedilol 25 mg tablet 25 mg PO BID #180 tabs 02/14/23 05/18/24 Rx doxazosin 4 mg tablet 4 mg PO DAILY #90 tabs 02/14/23 05/18/24 Rx losartan 100 mg tablet 100 mg PO DAILY #90 tabs 02/14/23 05/18/24 Rx albuterol sulfate 90 mcg/actuation 1 inh inhalation Q4H 12/27/23 05/18/24 History aerosol inhaler apixaban 5 mg tablet 5 mg PO BID 12/27/23 05/18/24 History aspirin 81 mg tablet,delayed 81 mg PO DAILY 12/27/23 05/18/24 History release (Adult Aspirin Regimen) glipizide 5 mg tablet, extended 5 mg PO DAILY 12/27/23 05/18/24 History release 24 hr lancets 30 gauge 12/27/23 05/18/24 History methocarbamol 500 mg tablet 500 mg PO BID PRN MUSCLE SPASMS 12/27/23 05/18/24 History amlodipine 10 mg tablet 10 mg PO DAILY #90 tabs 01/07/24 05/18/24 Rx furosemide 40 mg tablet 40 mg PO DAILY #90 tabs 01/07/24 05/18/24 Rx simvastatin 20 mg tablet 20 mg PO DAILY #90 tabs 01/07/24 05/18/24 Rx blood sugar diagnostic (Accu-Chek #100 ea 02/22/24 05/18/24 Rx Guide test strips) blood-glucose meter (Accu-Chek #1 ea 02/22/24 05/18/24 Rx Guide Glucose Meter) Current Medications: Active Medications Albuterol/Ipratropium (Ipratropium 0.5 Mg/Albuterol Sulfate 2.5 Mg Ampul.Neb 3 Ml) 3 ml INHALATION Q4HRT [facility] Last Admin: 05/19/24 12:57 Dose: Not Given Atorvastatin Calcium (Atorvastatin 40 Mg Tablet) 40 mg PO DAILY [facility] Last Admin: 05/19/24 08:32 Dose: 40 mg Dextrose (Dextrose 50% 25 Gm/50 Ml Syringe) 12.5 gm IV PUSH PRN PRN; Protocol PRN Reason: Hypoglycemia Furosemide (Furosemide Inj 40 Mg/4 Ml Vial) 40 mg IV PUSH DAILY [facility] Last Admin: 05/18/24 08:26 Dose: Not Given Glucagon (Glucagon For Inj 1 Mg Vial) 1 mg IM PRN PRN; Protocol PRN Reason: Hypoglycemia Glucose (Glucose Oral Gel 15 Gm Of Glucse In 37.5 Gm Tube) 15 gm PO PRN PRN; Protocol PRN Reason: Hypoglycemia Dextrose (Dextrose 5% 1,000 Ml) 1,000 mls @ 100 mls/hr IVPB PRN PRN; Protocol PRN Reason: Hypoglycemia Insulin Aspart (Insulin Aspart (*Bkc) 100 Units/Ml) 3 - 6 units SUB-Q TIDWM [facility]; Protocol Last Admin: 05/19/24 08:17 Dose: Not Given Insulin Aspart (Insulin Aspart (*Bkc) 100 Units/Ml) 1 - 3 units SUB-Q HS [facility]; Protocol Last Admin: 05/18/24 20:12 Dose: 2 units Losartan Potassium (Losartan Potassium 50 Mg Tablet) 50 mg PO DAILY [facility] Last Admin: 05/19/24 08:32 Dose: 50 mg Methylprednisolone Sodium Succinate (Methylprednisolone Sod Succ 40 Mg Vial) 40 mg IV PUSH Q6H [facility] Last Admin: 05/19/24 08:18 Dose: 40 mg Perflutren Lipid Microsphere (Perflutren Lipid Microspheres 1.5 Ml Vial Diluted To 10 Ml Total Volume) 0 ml IV PUSH ONCE PRN; Protocol PRN Reason: adequate visualization Stop: 05/21/24 03:07 Sedation/Anesthesia: No previous sedation/anesthesia problems (including family history). [facility] Past Medical History Medical History Aortic valve disease Atrial fibrillation CHF (congestive heart failure) COPD (chronic obstructive pulmonary disease) Diabetes mellitus Surgical History Surgical History H/O aortic valve replacement Family History Family History Father Hypertension Heart disease Mother Cancer Diabetes mellitus Hypertension Social History Social History Smoking status: Never smoker Alcohol intake: never Substance use: never Substance use type: does not use Do You Feel Safe in your Home?: Yes Lack of Transportation: No Lack of Food: Never True Current Housing: I Have Housing Concerned About Future Housing: No Difficulty Paying Gas/Electric Bills: No Diffi
--- NOTE | 2024-05-19 13:12 | P.PCNCC_ITS ---
Cardiac Cath Procedure Note Date of procedure:: 05/19/24 Performing physician:: CATHETERIZATION LABORATORY REPORT Procedure Date: 05/19/2024 Referring Physician: Dr. Waters Anesthesia: Versed and Fentanyl were ordered and given in my presence at 1153, procedure ended at 1219. Supervision of nurse monitored moderate sedation with Versed and Fentanyl was provided for 26 minutes. Pre-op Diagnosis: NSTEMI Post-op Diagnosis: NSTEMI Procedure(s): Left heart catheterization with coronary angiography Access Site: Right radial artery Brief History and Clinical Indications: 83 yo man with AVR x 2, CAD sp PCI, and DM type 2 here with acute shortness of breath and chest pain whose clinical presentation is consistent with NSTEMI All risks, benefits and alternatives to left heart catheterization with or without percutaneous coronary intervention was discussed at length with the patient. Risk of complications including but not limited to bleeding, infection, arrhythmia, stroke, worsening kidney function, blood loss, groin hematoma, limb loss, emergency coronary artery bypass grafting, and even were discussed with the patient and all questions were answered. The patient understood and wished to proceed. Time out called, patient name, date of , medical record number, allergies, procedure performed, identify Tank Builder Supervisor, patient and staff member concurred with accurate data, procedure carried on. Findings: LEFT HEART CATHETERIZATION FINDINGS: 1. Left main: The left main coronary artery is widely patent without any significant obstructive disease. 2. Left anterior descending: The LAD gives off 2 moderate size diagonal branches that have mild luminal irregularities. The LAD in its proximal body has a 80% stenosis. This is followed by a stent that has moderate ISR 3. Left circumflex: The left circumflex artery is a codominant vessel. In it's proximal body, there is a thrombotic 95% stenosis. The OM branches have mild disease. 4. Right coronary artery: The RCA is [facility] in its mid body with left to right collaterals. 5. Left ventricle: A. The aortic valve was not crossed. The opening aortic pressure is 133/84 (107) Description of Procedure: Informed consent signed and placed in the chart. Patient transferred to laborer pipeline room. Prepped and draped in usual sterile fashion. 2% lidocaine injected subcutaneously in right wrist area. 22-gauge venipuncture catheter used to access the right radial artery with the Seldinger technique. 6- FR slender sheath placed in right radial artery. 200 mcg Nitroglycerine, 2.5mg Verapamil, and 5000U Heparin was given intraarterial through the sheath. J wire advanced under fluoroscopy 5Fr TIG diagnostic catheter engaged Left Main Coronary Artery. 5Fr AR MOD diagnostic catheter engaged Right Coronary Artery Multiple orthogonal angiogram obtained and reviewed Hemostasis was achieved by application of TR band. Assessment: NSTEMI Multivessel CAD Post Operative Condition: Stable No significant blood loss Disposition: Floor Plan: Will discuss PCI vs surgery with outpatient electrical and instrumentation mechanic Law [facility] Interventional Cardiology
[2024-05-19 14:37] LABS: Basophils Percent Auto 0.1 % (0.2-1.2); Hematocrit 37.7 % (42.0-52.0); Hemoglobin 12.5 g/dL (14.0-18.0); Immature Granulocyte Absolute 0.09 K/mm3 (0.00-0.031); Immature Granulocyte Percent A 0.6 % (0-0.5); Mean Corpuscular HGB Conc 33.2 g/dl (32-36); Mean Corpuscular Hemoglobin 32.7 pg (26-34); Mean Corpuscular Volume 98.7 fl (80-100); Mean Platelet Volume 11.7 fl (7.4-10.4); Monocytes Absolute Auto 0.7 K/mm3 (0.1-0.6); Monocytes Percent Auto 4.6 % (2.6-8.5); Neutrophils Absolute Auto 13.5 K/mm3 (1.3-6.7); Neutrophils Percent Auto 90.7 % (45.5-73.1); Platelet Count Result 192 k/mm3 (150-375); Red Blood Count 3.82 M/mm3 (4.6-6.20); Red Cell Distribution Width 15.2 % (11.5-14.5); White Blood Count 14.9 K/mm3 (4.5-10.0)
--- NOTE | 2024-05-19 14:46 | PM.IMPN ---
Progress Note: A&P Assessment and Plan (1) CHF (congestive heart failure): Code(s): I50.9 - Heart failure, unspecified Status: Acute (2) COPD (chronic obstructive pulmonary disease): Code(s): J44.9 - Chronic obstructive pulmonary disease, unspecified Status: Acute (3) Diabetes mellitus: Code(s): E11.9 - Type 2 diabetes mellitus without complications Status: Acute (4) Atrial fibrillation: Code(s): I48.91 - Unspecified atrial fibrillation Status: Acute (5) COPD exacerbation: Code(s): J44.1 - Chronic obstructive pulmonary disease with (acute) exacerbation Status: Acute (6) HTN (hypertension): Code(s): I10 - Essential (primary) hypertension Status: Acute (7) NSTEMI (non-ST elevated myocardial infarction): Code(s): I21.4 - Non-ST elevation (NSTEMI) myocardial infarction Status: Acute Plan #NSTEMI -EKG showed sinus rhythm, PACs, chronic LBBB -troponin rising from 1.9 to 5.1 to 10.1 -Hold apixaban, may use low-molecular weight heparin for now, last dose tonight. Hold tomorrow a.m. dose. -Possible cath tomorrow -NPO from midnight - history of bio AVR x2 ( first bio AVR on 12/06/2004 - 2nd bioAVR using 26 mm pericardial valve on 07/24/2011 the setting of degenerative valve at [facility]) -remote coronary angiogram done on 07/19/2011 prior to his redo AVR which reportedly did not show any significant obstructive disease. -05/19: Underwent angio. Patient will be transferred to [place] for CABG. #CHF -Ordered ECHO -LVEF 55% from 11/13/2023 echo performed at [facility]. -Continue furosemide. -Continue carvedilol, resume losartan for hypertension. #DM Hold home meds Started SS moderate #Respiratory Distress BiPaP in ER Currently saturating 96 on 5L NC Subjective Date/time seen: 05/19/24 14:46 Interval history: Patient underwent cardiac cath and reported to me patient will transferred to [place] for CABG and he is been accepted. Pending transfer Review of Systems Review of Systems: As reviewed above Exam Narrative: GENERAL: Uncomfortable appearing, conversationally dyspneic, diaphoretic, on CPAP HEAD: [Normocephalic, atraumatic.] EYES: [PERRLA and EOMI.] ENT: Nares clear, no rhinorrhea or epistaxis. Mucous membranes moist. NECK: Supple. CHEST: Coarse breath sounds bilaterally, diminished air entry, prolonged end-expiratory wheezing appreciated throughout all lung malin. Symmetric chest rise noted. HEART: [Regular rate and rhythm]. No murmur heard. [Normal peripheral pulses.] ABDOMEN: [Soft, nondistended], [nontender], [No rigidity or guarding] EXTREMITIES: Normal range of motion. [No edema.] SKIN: Warm, dry, no rash. NEURO: [No focal deficits]. Alert and oriented [x3.] PSYCH: [Normal mood and affect.] Objective Data Vital Signs Vital Signs: Vital Signs - 24 hr 05/18/24 15:28 05/18/24 15:38 05/18/24 16:00 Temperature 98.1 F Pulse Rate 76 74 82 Respiratory Rate 16 18 Blood Pressure 143/57 H Pulse Oximetry 98 Oxygen Delivery Oxygen Flow Rate 05/18/24 16:00 05/18/24 18:00 05/18/24 19:42 Temperature 97.7 F Pulse Rate 86 88 Respiratory Rate 20 Blood Pressure 154/56 H Pulse Oximetry 98 99 Oxygen Delivery Nasal Cannula Oxygen Flow Rate 5 05/18/24 20:00 05/18/24 20:42 05/18/24 20:54 Temperature Pulse Rate 77 78 Respiratory Rate 18 18 Blood Pressure Pulse Oximetry 94 Oxygen Delivery Nasal Cannula Oxygen Flow Rate 2 05/18/24 20:00 05/18/24 22:00 05/18/24 23:30 Temperature Pulse Rate 79 82 75 Respiratory Rate 18 Blood Pressure Pulse Oximetry Oxygen Delivery Oxygen Flow Rate 05/18/24 23:36 05/19/24 00:28 05/19/24 00:00 Temperature 97.8 F Pulse Rate 77 84 77 Respiratory Rate 18 20 Blood Pressure 141/59 H Pulse Oximetry 96 Oxygen Delivery Oxygen Flow Rate 05/19/24 00:00 05/19/24 01:59 05/19/24 02
[2024-05-19 14:50] LABS: INR 1.2; Prothrombin Time 15.3 Seconds (11.1-14.7)
[2024-05-19 14:51] LABS: Partial Thromboplastin Time 33.8 Seconds (22.3-36.8)
--- NOTE | 2024-05-19 14:58 | PM.PNCARD ---
Progress Note: A&P Assessment and Plan (1) NSTEMI (non-ST elevated myocardial infarction): Code(s): I21.4 - Non-ST elevation (NSTEMI) myocardial infarction Status: Acute (2) PAF (paroxysmal atrial fibrillation): Code(s): I48.0 - Paroxysmal atrial fibrillation Status: Acute (3) Aortic valve disease: Code(s): I35.9 - Nonrheumatic aortic valve disorder, unspecified Status: Acute Plan 83 yo man with AVR x 2, CAD sp PCI, and DM type 2 here with acute shortness of breath and chest pain whose clinical presentation is consistent with NSTEMI NSTEMI - resume heparin drip without bolus at 6pm tonight - after discussion with his primary securities lending trader, Dr. Sheth, would transfer to [place] for higher risk PCI pAF - continue holding eliquis - heparin drip History of Bio-AVR - echo shows normal functioning prosthesis Subjective Date/time seen: 05/19/24 14:58 Interval history: chest pain and dyspnea significantly improved Review of Systems Review of Systems: All systems reviewed & are unremarkable except as noted in HPI and below Exam Const: General: comfortable HENMT: Mouth: Yes moist mucous membranes Eyes: EOM: EOMs intact bilaterally Neck: Neck: no JVD Resp: Effort & Inspection: normal respiratory effort Auscultation: clear to auscultation bilaterally Cardio: Rate: regular rate GI: GI Palp: Yes Soft to palpation Neuro: Speech: normal speech Psych: Affect: normal affect Objective Data Vital Signs Vital Signs: Vital Signs - 24 hr 05/18/24 15:28 05/18/24 15:38 05/18/24 16:00 Temperature 36.7 C Pulse Rate 76 74 82 Respiratory Rate 16 18 Blood Pressure 143/57 H Pulse Oximetry 98 Oxygen Delivery Oxygen Flow Rate 05/18/24 16:00 05/18/24 18:00 05/18/24 19:42 Temperature 36.5 C Pulse Rate 86 88 Respiratory Rate 20 Blood Pressure 154/56 H Pulse Oximetry 98 99 Oxygen Delivery Nasal Cannula Oxygen Flow Rate 5 05/18/24 20:00 05/18/24 20:42 05/18/24 20:54 Temperature Pulse Rate 77 78 Respiratory Rate 18 18 Blood Pressure Pulse Oximetry 94 Oxygen Delivery Nasal Cannula Oxygen Flow Rate 2 05/18/24 20:00 05/18/24 22:00 05/18/24 23:30 Temperature Pulse Rate 79 82 75 Respiratory Rate 18 Blood Pressure Pulse Oximetry Oxygen Delivery Oxygen Flow Rate 05/18/24 23:36 05/19/24 00:28 05/19/24 00:00 Temperature 36.6 C Pulse Rate 77 84 77 Respiratory Rate 18 20 Blood Pressure 141/59 H Pulse Oximetry 96 Oxygen Delivery Oxygen Flow Rate 05/19/24 00:00 05/19/24 01:59 05/19/24 02:00 Temperature Pulse Rate 81 Respiratory Rate Blood Pressure Pulse Oximetry 96 95 Oxygen Delivery Nasal Cannula Room Air Oxygen Flow Rate 1 05/19/24 04:00 05/19/24 04:00 05/19/24 04:58 Temperature 36.6 C Pulse Rate 85 79 Respiratory Rate 20 Blood Pressure 157/81 H Pulse Oximetry 94 95 Oxygen Delivery Nasal Cannula Oxygen Flow Rate 1 05/19/24 05:03 05/19/24 05:13 05/19/24 06:00 Temperature Pulse Rate 74 75 84 Respiratory Rate 18 18 Blood Pressure Pulse Oximetry Oxygen Delivery Oxygen Flow Rate 05/19/24 08:04 05/19/24 08:40 05/19/24 13:15 Temperature 36.4 C Pulse Rate 81 73 Respiratory Rate 18 18 15 Blood Pressure 172/71 H 153/67 H Pulse Oximetry 95 93 Oxygen Delivery Nasal Cannula Oxygen Flow Rate 2 05/19/24 13:45 05/19/24 14:00 05/19/24 14:15 Temperature Pulse Rate 71 89 73 Respiratory Rate 17 17 17 Blood Pressure 149/57 H 145/59 H 135/63 Pulse Oximetry 94 95 94 Oxygen Delivery Nasal Cannula Nasal Cannula Nasal Cannula Oxygen Flow Rate 2 2 2 05/19/24 14:30 05/19/24 13:30 Temperature Pulse Rate 84 74 Respiratory Rate 18 19 Blood Pressure 149/60 H 150/67 H Pulse Oximetry 95 96 Oxygen Delivery Nasal Cannula Nasal Cannula Oxygen Flow Rate 2 2 Intake/Output Intake/Output: Intake & Output
[2024-05-19] MEDS: SODIUM CHLORIDE 0.9% IV 1,000 ML 125 ML IV CONT (15:51)
[2024-05-19] MEDS: FUROSEMIDE INJ 40 MG/4 ML VIAL IV PUSH (16:37)
--- NOTE | 2024-05-19 16:38 | PC.NURSE ---
8265- pt returned to room post cardaic cath - right radial with dressing CDI/arm board in use- +ulna pulse- SR 80's O2 on 2l/nc spo2 = 98%
[2024-05-19 16:52] LABS: Glucose Point of Care 277 mg/dl (65-105)
--- NOTE | 2024-05-19 18:12 | PCRCNOTE ---
pt not in room for 1600 tx. Will continue tx's at 2000
[2024-05-19] MEDS: HEPARIN SOD/D5W 100 UNITS/ML 25,000 UNITS/250 ML BAG 10 UNITS IV CONT (18:16)
[2024-05-19 20:07] LABS: Glucose Point of Care 219 mg/dl (65-105)
[2024-05-19] MEDS: INSULIN ASPART (*BKC) 100 UNITS/ML SUB-Q (20:46)
--- NOTE | 2024-05-20 06:23 | P.CDI_ITS ---
CDI Query Clarification Request CHF has been documented. Please specify type and acuity of heart failure if known. Clinical Indicators:Chief complaint in ER was SOB. ECHO reads: 1. The left ventricular size and systolic function is normal. 2. The LVEF is approximately 50-55%. There is dyskinesis of ventricular septum suggestive of bundle branch block. 3. There is aortic valve prosthesis. There is no aortic regurgitation. The gradients across the aortic valve does not suggest stenosis., BNP 6810, increas ed needs of o2, CXR states mild interstitial edema Treatment: oxygen, Lasix IV daily. * Acute * Chronic * Acute on Chronic * Unknown * Systolic * Diastolic * Combined Systolic and Diastolic * Unknown
--- NOTE | 2024-05-28 16:32 | PM.TDS ---
Transfer Discharge Sum: Prov Provider Date of admission: 05/18/24 03:06 Primary care physician: Barry Ralph MD Admitting clinician: Blanca Parmar DO Consults: 05/18/24 03:08 Consult to Physician Routine Comment: Consulting Provider: Laura Vargas Reason for consultation: NSTEMI Has provider been notified: Yes DS: Admitting Diagnosis Discharge Date 05/19/24 Admitting Diagnosis Shortness of Breath/Dyspnea DS: Discharge Diagnosis Discharge Diagnosis (1) CHF (congestive heart failure): Code(s): I50.9 - Heart failure, unspecified Status: Acute (2) COPD (chronic obstructive pulmonary disease): Code(s): J44.9 - Chronic obstructive pulmonary disease, unspecified Status: Acute (3) Diabetes mellitus: Code(s): E11.9 - Type 2 diabetes mellitus without complications Status: Acute (4) Atrial fibrillation: Code(s): I48.91 - Unspecified atrial fibrillation Status: Acute (5) COPD exacerbation: Code(s): J44.1 - Chronic obstructive pulmonary disease with (acute) exacerbation Status: Acute (6) HTN (hypertension): Code(s): I10 - Essential (primary) hypertension Status: Acute (7) NSTEMI (non-ST elevated myocardial infarction): Code(s): I21.4 - Non-ST elevation (NSTEMI) myocardial infarction Status: Acute Transfer Discharge Sum: Med Medications Active and Home Medications: Home Medications carvedilol 25 mg tablet 25 mg PO BID #180 tabs 02/14/23 [Rx Confirmed 05/18/24] doxazosin 4 mg tablet 4 mg PO DAILY #90 tabs 02/14/23 [Rx Confirmed 05/18/24] losartan 100 mg tablet 100 mg PO DAILY #90 tabs 02/14/23 [Rx Confirmed 05/18/24] albuterol sulfate 90 mcg/actuation aerosol inhaler 1 inh inhalation Q4H 12/27/23 [History Confirmed 05/18/24] apixaban 5 mg tablet 5 mg PO BID 12/27/23 [History Confirmed 05/18/24] aspirin 81 mg tablet,delayed release (Adult Aspirin Regimen) 81 mg PO DAILY 12/27/23 [History Confirmed 05/18/24] glipizide 5 mg tablet, extended release 24 hr 5 mg PO DAILY 12/27/23 [History Confirmed 05/18/24] lancets 30 gauge 12/27/23 [History Confirmed 05/18/24] methocarbamol 500 mg tablet 500 mg PO BID PRN MUSCLE SPASMS 12/27/23 [History Confirmed 05/18/24] amlodipine 10 mg tablet 10 mg PO DAILY #90 tabs 01/07/24 [Rx Confirmed 05/18/24] furosemide 40 mg tablet 40 mg PO DAILY #90 tabs 01/07/24 [Rx Confirmed 05/18/24] simvastatin 20 mg tablet 20 mg PO DAILY #90 tabs 01/07/24 [Rx Confirmed 05/18/24] blood sugar diagnostic (Accu-Chek Guide test strips) #100 ea 02/22/24 [Rx Confirmed 05/18/24] blood-glucose meter (Accu-Chek Guide Glucose Meter) #1 ea 02/22/24 [Rx Confirmed 05/18/24] Transfer Discharge Sum: Hosp Hospital Course Hospital course: 83-year-old male with a past medical history significant for congestive heart failure, COPD, atrial fibrillation, diabetes, aortic valve replacement, hypertension. Patient is on multiple medications including his Eliquis. Today patient presents in respiratory distress. He called EMS initially as he was having sudden onset difficulty in breathing at home. He took multiple albuterol inhaler attempts without any significant relief of his symptoms. Patient's symptoms got worsened included tripod position, diaphoresis and wheezing. EMS found him at 86% saturation on room air. He is not on any supplemental oxygen. Has not been on BiPAP according to the patient. Patient was placed on CPAP with a PEEP of 10 and still saturating 85%. Patient was given DuoNeb, 10 mg of Decadron EN route. On initial presentation patient appears uncomfortable and has conversational dyspnea the 3 words. He sits upright, unable to lie back or lie flat. Cardiology was consulted. Patient underwent cardiac catheterizationLEFT HEART CATHETERIZATION FINDINGS: 1. Left main: The left main coronary artery is widely patent without any significant obstructive disease. 2. Left anterior descending: The LAD give
--- NOTE | 2024-06-03 18:50 | PM.DS ---
DS: Admitting Diagnosis Discharge Date 05/19/24 Admitting Diagnosis SOB DS: Discharge Diagnosis Discharge Diagnosis (1) CHF (congestive heart failure): Code(s): I50.9 - Heart failure, unspecified Status: Acute (2) COPD (chronic obstructive pulmonary disease): Code(s): J44.9 - Chronic obstructive pulmonary disease, unspecified Status: Acute (3) Diabetes mellitus: Code(s): E11.9 - Type 2 diabetes mellitus without complications Status: Acute (4) Atrial fibrillation: Code(s): I48.91 - Unspecified atrial fibrillation Status: Acute (5) COPD exacerbation: Code(s): J44.1 - Chronic obstructive pulmonary disease with (acute) exacerbation Status: Acute (6) HTN (hypertension): Code(s): I10 - Essential (primary) hypertension Status: Acute (7) NSTEMI (non-ST elevated myocardial infarction): Code(s): I21.4 - Non-ST elevation (NSTEMI) myocardial infarction Status: Acute DS: Summary Hospital Course Hospital Course: 3-year-old male with a past medical history significant for congestive heart failure, COPD, atrial fibrillation, diabetes, aortic valve replacement, hypertension. Patient is on multiple medications including his Eliquis. Today patient presents in respiratory distress. He called EMS initially as he was having sudden onset difficulty in breathing at home. He took multiple albuterol inhaler attempts without any significant relief of his symptoms. Patient's symptoms got worsened included tripod position, diaphoresis and wheezing. EMS found him at 86% saturation on room air. He is not on any supplemental oxygen. Has not been on BiPAP according to the patient. Patient was placed on CPAP with a PEEP of 10 and still saturating 85%. Patient was given DuoNeb, 10 mg of Decadron EN route. On initial presentation patient appears uncomfortable and has conversational dyspnea the 3 words. He sits upright, unable to lie back or lie flat. Denies any chest pain, back pain, nausea, vomiting, headache, vision changes, abdominal pain. Was otherwise in his normal state of health. He was transition to BiPAP with respiratory support at bedside. In the ED patient was transitioned to BiPAP therapy with setting of 12/6, magnesium sulfate to 2 g, scheduled Solu-Medrol every 6 hours. EKG shows a left bundle branch block but no Sgarbossa criteria or concerns for acute ischemia. Evidence of previous left to bundle branch block in the EKG on 03/24/22. WBC was remarkable for 14.8 with 84% neutrophils, rising in troponin from 1.9 to 5.1 to 10.1 , BNP of 6810, ABG shows pH of 7.4, pCO2 36.7, PO2 78.9 with a BiPAP. chest x-ray shows cardiomegaly with mild interstitial edema. Echocardiogram has been ordered. Currently holding aspirin and Plavix until Cardiology evaluates. Patient was given Lasix 40mg IV today in the morning around 6:00 a.m.. During the evaluation at the bedside patient is asymptomatic. Denies any chest pain shortness a breath, diaphoresis. Patient reports of having aortic valve replacement in the year of 2007 and redone in 2010. Patient believes its prosthetic valve. Patient also reports of having COPD due [place] Patient denies smoking and using oxygen at home. Currently patient is off BiPAP and in nasal cannula at 5 L and saturating around 96. We will repeat ABG and EKG. Denies any other significant past medical history. Cardiology has been consulted and documented: I personally reviewed extensive medical records through [facility] [employer], and clinical Desktop. Patient had post bio AVR on 12/06/2004; 2nd bio AVR on 07/24/2011 in the setting of degenerative aortic valve at [facility]. Cardiac catheterization prior to 2nd redo surgery on 07/19/2011 reportedly did not show any significant obstructive CAD. Echocardiogram from 11/13/2023 performed at [facility] reportedly showed LVEF 55%, diastolic dysf
== END 2024-05-19 22:25 | disposition short-term general hospital (02) | DRG 281 ==
LOC: ANHED 02:03 → ANHIMU 03:48
PROVIDERS: Internal Medicine; Nurse Practitioner; Admitting Provider Internal Medicine; Emergency Provider Student in an Organized Health Care Education/Training Program; PCP Family Medicine; Visit Provider General Practice
PROC: 4A023N7 Measurement of Cardiac Sampling and Pressure, Left Heart, Percutaneous Approach (ICD-10-PCS; CPT 93452; principal; 2024-05-19 10:30)
DX: I21.4 Non-ST elevation (NSTEMI) myocardial infarction (principal); I50.32 Chronic diastolic (congestive) heart failure; J44.1 Chronic obstructive pulmonary disease with (acute) exacerbation; E11.9 Type 2 diabetes mellitus without complications; E78.5 Hyperlipidemia, unspecified; I25.10 Atherosclerotic heart disease of native coronary artery without angina pectoris; I11.0 Hypertensive heart disease with heart failure; I48.0 Paroxysmal atrial fibrillation; I44.7 Left bundle-branch block, unspecified; Z95.2 Presence of prosthetic heart valve; Z79.01 Long term (current) use of anticoagulants; Z79.82 Long term (current) use of aspirin; Z79.84 Long term (current) use of oral hypoglycemic drugs; Z95.5 Presence of coronary angioplasty implant and graft
CPT/HCPCS: 36415; 36600; 71045; 80053; 82375; 82805; 82810; 82948; 83036; 83050; 83880; 84484; 85018; 85025; 85027; 85610; 85730; 93005; 93458; 94002; 94003; 94640; 96365; 96367; 96375; 99291; A9270; C1769; C1887; C1894; C8929; J0696; J1644; J1650; J1815; J1940; J2250; J2305; J2919; J3010; J3475; J7030; J7040; Q9957

== ENCOUNTER 2024-06-05 15:29 | Observation (INO) | payer MEDICARE, SELFPAY ==
[2024-06-05] VITALS (22 sets, daily range): BP systolic 125–178; BP diastolic 46–107; PULSE 83–103; RESP 16–34; TEMP 37.1–37.5; O2SAT 92–100; BMI 29.9
--- NOTE | ~2024-06-05 | MR_ITS ---
EXAMINATION: MR brain/brain stem wo con DATE: 06/06/2024 15:03 INDICATION: Near occlusion stenosis of the right internal carotid artery TECHNIQUE: Magnetic resonance imaging (MRI) of the brain and brainstem was performed without intraven ous contrast. Sequences included sagittal and axial T1-weighted SE, axial diffusion-weighted FS SE, a xial 3D SWAN, axial T2-weighted FLAIR, and axial T2-weighted FSE. Postcontrast axial and coronal T1-w eighted SE was obtained. Apparent diffusion coefficient (ADC) maps were created. COMPARISON: Head CT and CT angiogram dated 06/05/2024 FINDINGS: There are no areas of restricted diffusion to suggest acute infarction. Small old lacunar infarct at the right lentiform nucleus and in the right cerebellar hemisphere. No abnormal intracranial mass les ion. There are several scattered small foci of susceptibility artifact on the susceptibility weighted imaging consistent with chronic blood products consistent microhemorrhage which could be related to either hypertension or amyloid angiopathy. There are scattered areas of nonspecific increased T2-weig hted signal intensity in the cerebral white matter, predominantly involving the deep and periventricu lar white matter. There are no intraparenchymal signal abnormalities seen on the other pulse sequence s. The ventricles are symmetric and normal in size. There are no abnormal extra-axial fluid collectio ns. Flow voids are seen in the cerebral arteries on the T2-weighted sequences consistent with their e xpected patency. There is decreased caliber of the right internal carotid artery at the carotid sipho n and along the carotid canal. Visualized orbits and soft tissues are unremarkable. Moderate mucosal thickening the right maxillary sinus with mild mucosal thickening the left maxillary and bilateral et hmoid sinuses. IMPRESSION: 1. Couple small lacunar infarcts at the right lentiform nucleus and right cerebellum. No acute intrac ranial process. 2. A few scattered tiny foci of cerebral and cerebellar susceptibility artifact consistent with seque la of chronic microhemorrhage such as in the setting of hypertension or amyloid angiopathy. 3. Decreased caliber of the intracranial right internal carotid artery flow void consistent with a li arnav flow limiting near occlusion stenosis of the proximal right internal carotid artery identified o n the prior carotid CT angiogram. Reviewed, dictated and finalized at location A. IMPRESSION: 1. Couple small lacunar infarcts at the right lentiform nucleus and right cereb ellum. No acute intracranial process. 2. A few scattered tiny foci of cerebral and cerebellar susceptibility artifact consistent with sequela of chronic microhemorrhage such as in the setting of h ypertension or amyloid angiopathy. 3. Decreased caliber of the intracranial right internal carotid artery flow voi d consistent with a likely flow limiting near occlusion stenosis of the proxima l right internal carotid artery identified on the prior carotid CT angiogram.
--- NOTE | ~2024-06-05 | CT_ITS ---
EXAMINATION: CTA brain carotid DATE: 06/05/2024 16:03 INDICATION: Cerebrovascular accident. TECHNIQUE: Computed tomographic angiography (CTA) of the head was performed with 100 mL Omnipaque-350 intravenous contrast. CTA of the neck was performed with intravenous contrast. Automated exposure co ntrol and iterative reconstruction technique were employed. The dose-length product was 1221.32 mGy-c m. Maximum intensity projection and volume rendered 3D-reconstructions were created by the [employer] on a separate workstation. COMPARISON: Head CT 12/17/2023 FINDINGS: HEAD CTA: There are scattered areas of low attenuation in the cerebral white matter, which is within normal limits for the patient's age. There is no intracranial hemorrhage, acute infarction, or abnorm al intracranial mass lesion. The ventricles are normal in size. There are likely changes of left ocul ar lens replacement surgery. There is mild mucosal thickening in the paranasal sinuses. The mastoid a ir cells are normal. Right vertebral artery is dominant. There is no significant stenosis of basilar artery or the posterior cerebral arteries. Right internal carotid artery is small. There is moderate stenosis of intracranial left internal carotid artery. There is no significant stenosis of the anteri or or middle cerebral arteries. 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 Anterior communicating artery is normal. The posterior communicating arteries are normal. NECK CTA: There is peripheral septal thickening with groundglass and airspace opacities in the lungs, likely chronic interstitial lung disease. There are no pathologically enlarged lymph nodes. There is no significant stenosis of the vertebral arteries. There is plaque in the proximal internal carotid. Right cervical internal carotid artery small, consistent with near occlusion stenosis. There is 66% stenosis of the proximal left internal carotid artery relative to normal distal artery lumen diameter . There is severe cervical spondylosis. IMPRESSION: 1. Normal aging brain. 2. Moderate stenosis of intracranial left internal carotid artery. 3. Near-occlusion stenosis of proximal right internal carotid artery. 4. 66% stenosis of the proximal left internal carotid artery relative to normal distal artery lumen d iameter (NASCET criteria). Reviewed, dictated and finalized at location A. IMPRESSION: 1. Normal aging brain. 2. Moderate stenosis of intracranial left internal carotid artery. 3. Near-occlusion stenosis of proximal right internal carotid artery. 4. 66% stenosis of the proximal left internal carotid artery relative to normal distal artery lumen diameter (NASCET criteria).
--- NOTE | ~2024-06-05 | XR_ITS ---
EXAMINATION: XR chest 1V portable DATE: 06/05/2024 16:19 INDICATION: Cerebrovascular accident. Altered mental status. TECHNIQUE: A single frontal view of the chest was obtained. COMPARISON: Chest single view 05/18/2024 FINDINGS: There is a diffuse interstitial pattern, consistent mild pulmonary edema. No pleural effusi on or pneumothorax. Cardiomegaly is noted. There are changes of aortic valve replacement. IMPRESSION: 1. Mild pulmonary edema. 2. Cardiomegaly. Reviewed, dictated and finalized at location A.
--- NOTE | ~2024-06-05 | CT_ITS ---
EXAMINATION: CT brain wo con DATE: 06/05/2024 15:58 INDICATION: Aphasia. Lower extremity weakness. TECHNIQUE: Computed tomography (CT) of the head was performed without intravenous contrast. Sagittal and coronal reconstructions were performed. The mA was adjusted according to patient size. Iterative reconstruction technique was employed. The dose-length product was 681.00 mGy-cm. COMPARISON: head CT dated 12/17/2023 FINDINGS: No acute intracranial hemorrhage, acute infarction or abnormal extra axial fluid collection. There is mild scattered white matter hypoattenuation consistent with chronic small vessel ischemic disease. S ymmetric prominence of the sulci consistent with mild age-appropriate diffuse cerebral volume loss. V entricles are normal and symmetric. No mass/mass effect. Changes of left intraocular lens replacement . The orbits, paranasal sinuses and mastoid air cells are normal. Intracranial calcified cerebral ath erosclerosis is noted. IMPRESSION: 1. Normal aging brain. No acute intracranial process. Reviewed, dictated and finalized at location A.
--- NOTE | 2024-06-05 15:35 | ECG_ITS ---
Test Date: 2024-06-05 17:20:25 Measurements Intervals [place] Rate: 92 P: 0 MO: 0 QRS: 74 QRSD: 163 T: -7 QT: 428 QTc: 530 Interpretive Statements SINUS RHYTHM WITH FIRST DEGREE AV BLOCK WITH PACS INDETERMINATE AXIS LEFT BUNDLE BRANCH BLOCK [120+ ms QRS DURATION, 80+ ms Q/S IN V1/V2, 85+ ms R IN I/aVL/V5/V6] Compared to ECG 05/18/2024 08:54:49 NO SIGNIFICANT CHANGES Electronically Signed On 06-06-2024 13:33:06 CDT by Melissa Bryant M.D.
[2024-06-05 15:55] LABS: Basophils Percent Auto 0.2 % (0.2-1.2); Eosinophils Absolute Auto 0.1 K/mm3 (0-0.3); Eosinophils Percent Auto 0.4 % (0-4.4); Hematocrit 34.6 % (42.0-52.0); Hemoglobin 11.5 g/dL (14.0-18.0); Immature Granulocyte Percent A 0.6 % (0-0.5); Lymphocytes Absolute Auto 0.81 K/mm3 (0.9-3.2); Lymphocytes Percent Auto 4.9 % (18.3-44.2); Mean Corpuscular HGB Conc 33.2 g/dl (32-36); Mean Corpuscular Hemoglobin 31.6 pg (26-34); Mean Corpuscular Volume 95.1 fl (80-100); Mean Platelet Volume 10.4 fl (7.4-10.4); Monocytes Percent Auto 6.1 % (2.6-8.5); Neutrophils Absolute Auto 14.5 K/mm3 (1.3-6.7); Neutrophils Percent Auto 87.8 % (45.5-73.1); Platelet Count Result 134 k/mm3 (150-375); Red Blood Count 3.64 M/mm3 (4.6-6.20); Red Cell Distribution Width 14.9 % (11.5-14.5); White Blood Count 16.5 K/mm3 (4.5-10.0)
[2024-06-05 16:06] LABS: INR 1.3; Prothrombin Time 16.6 Seconds (11.1-14.7)
[2024-06-05 16:07] LABS: Partial Thromboplastin Time 30.8 Seconds (22.3-36.8)
[2024-06-05 16:13] LABS: Alanine Aminotransferase 18 U/L (6-50); Albumin Level 3.7 g/dL (3.5-5.1); Alkaline Phosphatase 43 U/L (38-126); Anion Gap 6 mmol/L (4-12); Aspartate Amino Transferase 21 U/L (17-59); Bilirubin,Total 0.8 mg/dL (0.2-1.3); Blood Urea Nitrogen 28 mg/dL (9-20); Calcium 8.6 mg/dL (8.4-10.2); Carbon Dioxide 25 mmol/L (22-30); Chloride 101 mmol/L (98-107); Estimated CRCL calculation 53 ml/min; Estimated Glomerular Filt Rate > 60; Glucose 119 mg/dL (65-110); Potassium 3.8 mmol/L (3.4-5.0); Sodium 132 mmol/L (137-145)
[2024-06-05 16:14] LABS: Glucose Point of Care 126 mg/dl (65-105)
[2024-06-05 16:24] LABS: Troponin I 0.016 ng/mL (0.000-0.034)
--- NOTE | 2024-06-05 17:39 | ED.WEAKNESS ---
HPI - Weakness General Chief complaint: Weakness <Julia Craig APRN - Last Filed: 06/05/24 20:37> Stated complaint: AMS <Julia Craig APRN - Last Filed: 06/05/24 20:37> Time Seen by Provider: 06/05/24 16:57 <Julia Craig APRN - Last Filed: 06/05/24 20:37> Patient is an 83-year-old male who presents to the ER after a near syncopal episode in a grocery store parking lot. He and his report he was pushing a grocery cart when all of a sudden he was not able to feel his legs. Patient's reports he was dragging both of his feet and then he stopped moving. They report they were able to get patient into a wheelchair but then had difficulty transferring patient to his vehicle because his legs weren't strong enough to move. Patient did not lose consciousness or fall. He and his report he had a recent hospitalization but they are unsure why he was admitted. Patient's medical history includes COPD, diabetes, hypertension, and he is on blood thinners. He denies any shortness of breath, chest pain, one-sided weakness/tingling/numbness, at this time and denies pain or discomfort. <Julia Craig APRN - Last Filed: 06/05/24 20:37> Related Data Home medications: Home Medications Medication Instructions Recorded Confirmed albuterol sulfate 90 mcg/actuation 1 inh inhalation Q4H PRN Shortness 12/27/23 06/05/24 aerosol inhaler Of Breath Or Wheezing apixaban 5 mg tablet 5 mg PO BID 12/27/23 06/05/24 aspirin 81 mg tablet,delayed 81 mg PO DAILY 12/27/23 06/05/24 release (Adult Aspirin Regimen) glipizide 5 mg tablet, extended 5 mg PO DAILY 12/27/23 06/05/24 release 24 hr lancets 30 gauge 12/27/23 06/05/24 atorvastatin 80 mg tablet 80 mg PO DAILY 05/29/24 06/05/24 <Julia Craig APRN - Last Filed: 06/05/24 20:37> Allergies/Adverse reactions: Allergies Allergy/AdvReac Type Severity Reaction Status Date / Time metformin AdvReac Intermediate Diarrhea Verified 05/29/24 12:09 <Julia Craig APRN - Last Filed: 06/05/24 20:37> Review of Systems Review of Systems: All systems reviewed & are unremarkable except as noted in HPI and below <Julia Craig APRN - Last Filed: 06/05/24 20:37> PMFSH Past Medical History Medical History: Medical History (Updated 06/06/24 @ 14:13 by Juvenal Nye MD) Aortic valve disease Atrial fibrillation CHF (congestive heart failure) COPD (chronic obstructive pulmonary disease) Diabetes mellitus Right-sided extracranial carotid artery stenosis TIA (transient ischemic attack) <Julia Craig APRN - Last Filed: 06/05/24 20:37> Surgical History Surgical History: Surgical History H/O aortic valve replacement <Julia Craig APRN - Last Filed: 06/05/24 20:37> Family History Family History: Family History Father Hypertension Heart disease Mother Cancer Diabetes mellitus Hypertension <Julia Craig APRN - Last Filed: 06/05/24 20:37> Social History Social History: Social History Smoking status: Never smoker Alcohol intake: never Substance use: never Substance use type: does not use Do You Feel Safe in your Home?: Yes Lack of Transportation: No Lack of Food: Never True Current Housing: I Have Housing Concerned About Future Housing: No Difficulty Paying Gas/Electric Bills: No Difficulty Paying for Meds: No Currently Unemployed: No Education: High School Diploma/GED Difficulty w/ Childcare or Family Care: No Living arrangements: with family Occupation/Education: retired Gender identity (if verbalized by the patient): Male Spiritual care concerns: No <Julia Craig APRN - Last Filed: 06/05/24 20:37> Exam Narrative: GENERAL: Well appearing, well-nourished,
[2024-06-05] MEDS: SODIUM CHLORIDE 0.9% IV 1,000 ML 500 ML IV CONT (18:02)
[2024-06-05 18:22] LABS: Add Urine Microscopic? YES; Appearance Urine Clear (Clear); Bacteria Urine 4+ /hpf; Bilirubin Urine Negative (Negative); Blood Urine Non-Hemolyzed Trace (Negative); Color Urine Yellow (Yellow); Glucose Urine UA Negative (Negative); Ketones Urine Negative (Negative); Leukocyte Esterase Ur 2+ LEU/UL (Negative); Nitrate Urine Positive (Negative); Non Pathogenic Casts 0-2; Protein Urine Negative (Negative); RBC Urine 0-2 /hpf (0-2); Specific Grav Ur 1.042 (1.001-1.035); Squamous Epithelial Cell Urine None Seen /hpf (Few); Urobilinogen Urine 0.2 mg/dL (<2.0); WBC Urine 51-100 /hpf (0-3); pH Urine 5.5 (5.0-9.0)
[2024-06-05 18:24] LABS: Lactic Acid Reflex 0.9 mmol/L (0.7-2.0)
[2024-06-05 18:32] LABS: CRP 4.5 mg/dL (<1.0)
[2024-06-05 20:06] LABS: NT Pro B Type Natriuretic Pept 5060 pg/mL (19.9-100)
--- NOTE | 2024-06-05 20:29 | PM.IMHP ---
H&P: HPI History of Present Illness Date/Time: 06/05/24 20:29 Chief Complaint: weakness Narrative: This is an 83-year-old male with past medical history significant for spinal stenosis, atrial fibrillation, rate controlled anticoagulated, type diabetes mellitus, patient was brought to the emergency room due to episode of generalized weakness while out grocery shopping. Patient was unable to contribute much in a meaningful way to history taking. Preliminary workup was significant for urinalysis with numerous WBCs present . Patient has been admitted for further evaluation management and treatment. EXAMINATION: CT brain wo con DATE: 06/05/2024 15:58 INDICATION: Aphasia. Lower extremity weakness. TECHNIQUE: Computed tomography (CT) of the head was performed without intravenous contrast. Sagittal and coronal reconstructions were performed. The mA was adjusted according to patient size. Iterative reconstruction technique was employed. The dose-length product was 681.00 mGy-cm. COMPARISON: head CT dated 12/17/2023 FINDINGS: No acute intracranial hemorrhage, acute infarction or abnormal extra axial fluid collection. There is mild scattered white matter hypoattenuation consistent with chronic small vessel ischemic disease. Symmetric prominence of the sulci consistent with mild age-appropriate diffuse cerebral volume loss. Ventricles are normal and symmetric. No mass/mass effect. Changes of left intraocular lens replacement. The orbits, paranasal sinuses and mastoid air cells are normal. Intracranial calcified cerebral atherosclerosis is noted. IMPRESSION: 1. Normal aging brain. No acute intracranial process. EXAMINATION: CTA brain carotid DATE: 06/05/2024 16:03 INDICATION: Cerebrovascular accident. TECHNIQUE: Computed tomographic angiography (CTA) of the head was performed with 100 mL Omnipaque-350 intravenous contrast. CTA of the neck was performed with intravenous contrast. Automated exposure control and iterative reconstruction technique were employed. The dose-length product was 1221.32 mGy-cm. Maximum intensity projection and volume rendered 3D-reconstructions were created by the technologist on a separate workstation. COMPARISON: Head CT 12/17/2023 FINDINGS: HEAD CTA: There are scattered areas of low attenuation in the cerebral white matter, which is within normal limits for the patient's age. There is no intracranial hemorrhage, acute infarction, or abnormal intracranial mass lesion. The ventricles are normal in size. There are likely changes of left ocular lens replacement surgery. There is mild mucosal thickening in the paranasal sinuses. The mastoid air cells are normal. Right vertebral artery is dominant. There is no significant stenosis of basilar artery or the posterior cerebral arteries. Right internal carotid artery is small. There is moderate stenosis of intracranial left internal carotid artery. There is no significant stenosis of the anterior or middle cerebral arteries. 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 Anterior communicating artery is normal. The posterior communicating arteries are normal. NECK CTA: There is peripheral septal thickening with groundglass and airspace opacities in the lungs, likely chronic interstitial lung disease. There are no pathologically enlarged lymph nodes. There is no significant stenosis of the vertebral arteries. There is plaque in the proximal internal carotid. Right cervical internal carotid artery small, consistent with near occlusion stenosis. There is 66% stenosis of the proximal left internal carotid artery relative to normal distal artery lumen diameter. There is severe cervical spondylosis. IMPRESSION: 1. Normal aging brain. 2. Moderate stenosis of intracranial left internal carotid artery. 3. Near-occlusion stenosis of proximal right internal carotid artery. 4. 66% stenosis of the proximal left internal carotid artery relative to normal distal
[2024-06-05] MEDS: FUROSEMIDE INJ 40 MG/4 ML VIAL IV PUSH (20:34)
--- NOTE | 2024-06-05 23:08 | ADMGEN ---
This patient, Ashkan Pryor, was admitted to 3 Med Surg Room 304-02. Patient/family oriented to hospital policies and general routines including ID bracelet, bed and alarms, visiting hours, pain management, procedures, bathroom and other care routines, personal items, smoking policy, room service/diet, and visiting hours. Information on how to activate the Rapid Response Team has been discussed. Patient/Family are encouraged to report perceived risks to care and to ask questions if they do not understand what they are told or what they should do.
[2024-06-06 06:00] VITALS: BP 145/52; PULSE 84; RESP 16; TEMP 36.8; O2SAT 95
--- NOTE | 2024-06-06 09:22 | PM.IMPN ---
Progress Note: A&P Assessment and Plan (1) Generalized weakness: Code(s): R53.1 - Weakness Status: Acute Assessment and Plan: Per chart review: He and his report he was pushing a grocery cart when all of a sudden he was not able to feel his legs. Patient's reports he was dragging both of his feet and then he stopped moving. They report they were able to get patient into a wheelchair but then had difficulty transferring patient to his vehicle because his legs weren't strong enough to move. Patient did not lose consciousness or fall. - Head CT: Normal aging brain. No acute intracranial process. - Head/neck CTA: 1. Normal aging brain. 2. Moderate stenosis of intracranial left internal carotid artery. 3. Near-occlusion stenosis of proximal right internal carotid artery. 4. 66% stenosis of the proximal left internal carotid artery - Chest XR: 1. Mild pulmonary edema. 2. Cardiomegaly. (2) Urinary tract infection: Code(s): N39.0 - Urinary tract infection, site not specified Status: Acute Assessment and Plan: - UA: clear appearance with 1.042 specific gravity, positive nitrates, 2+ leukocytes, 51-100 WBC, 4+ bacteria - UC obtained on 06/05: pending - no previous micro to be reviewed - started on rocephin on 06/05 (3) CHF (congestive heart failure): Code(s): I50.9 - Heart failure, unspecified Status: Acute Assessment and Plan: Chronic, does not appear in acute exacerbation. Denies shortness of breath and lung sounds are clear. - Echo 05/19/24: LVEF 50-55% with dyskinesis of ventricular septum - Chest XR: mild pulmonary edema with cardiomegaly - BNP slightly elevated at 5060 - Continue patients lasix 40 mg daily (4) HTN (hypertension): Code(s): I10 - Essential (primary) hypertension Status: Acute Assessment and Plan: Chronic, continue home medications. - Coreg 25 mg BID - Amlodipine 10 mg daily - Losartan 100 mg dialy - Monitor (5) Atrial fibrillation: Code(s): I48.91 - Unspecified atrial fibrillation Status: Acute Assessment and Plan: Chronic, rate controlled on anticoagulation. - Continue coreg 15 BID - Continue Eliquis 5 mg BID - Continue tele - Monitor Time Spent With Patient Time with patient: Greater than 35 minutes Subjective Date/time seen: 06/06/24 09:22 Interval history: 83-year-old male with a past medical history significant for congestive heart failure, COPD, atrial fibrillation on anticoagulation, diabetes, aortic valve replacement, hypertension presents to the hospital for generalized weakness. Patient is pleasant lying comfortably in bed with at bedside. He states he was at the grocery store when both of his legs went numb and he lost control of them. He states weakness was symmetrical. He denies saddle anesthesia and incontinence of bowel/bladder. He had no other symptoms in relation to this, denying slurred speech, facial droop, and weakness/numbness anywhere else. His lower extremity symptoms have since resolved. He has no complaints at this time. Denying chest pain, shortness of breath, nausea/vomiting and abdominal pain. Discussed patient with neurology, Dr Nye who is in agreement with patient transfer given the severity of his ICA stenosis as seen on imaging. Patient is already on asa and eliquis, started on atorvastatin. MRI brain ordered. Returned to patients room to discuss transfer plans. 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 All questions were answered at that time. Patient and are in agreement with transfer. 1330: Call made to [facility] [place] awaiting call back. 1420: Call received from [facility]. Spoke with Vascular Surgeon Dr. Colindres who plans to accept patient to [facility] as a consult under the hospitalist team. Transfer center to call back with hospitalist. 1430: Call received from
[2024-06-06 10:38] VITALS: PULSE 84
[2024-06-06] MEDS: DOXAZOSIN MESYLATE 4 MG TABLET PO (10:38)
[2024-06-06] MEDS: APIXABAN 5 MG TABLET PO (10:38)
[2024-06-06] MEDS: LOSARTAN POTASSIUM 100 MG TABLET PO (10:38)
[2024-06-06] MEDS: amLODIPine BESYLATE 10 MG TABLET PO (10:38)
[2024-06-06] MEDS: ASPIRIN 81 MG ENTERIC TABLET PO (10:38)
[2024-06-06] MEDS: carvediloL 25 MG TABLET PO (10:38)
[2024-06-06 11:08] LABS: Cholesterol 106 mg/dL (0-200); HDL Direct 49 mg/dL; Triglycerides 53 mg/dL (<150)
[2024-06-06 11:18] LABS: LDL Cholesterol Direct 31 mg/dL
[2024-06-06 13:46] VITALS: BP 110/47; PULSE 66; RESP 18; TEMP 36.2; O2SAT 99
--- NOTE | 2024-06-06 14:02 | WPDNEURCNPN ---
Assessment and Plan Assessment and plan (1) Right-sided extracranial carotid artery stenosis: Code(s): I65.21 - Occlusion and stenosis of right carotid artery Status: Acute (2) TIA (transient ischemic attack): Code(s): G45.9 - Transient cerebral ischemic attack, unspecified Status: Acute Assessment and Plan: Although there were no description to suggest if he had any weakness in the left or right side but sudden onset of weakness in the legs where he almost fell in the setting of a near occlusion of the right internal carotid artery and 65 % the left internal carotid artery and a similar episode in November is certainly alarming and I would suggest further looking into the extracranial disease noted on the CT angiogram. (3) CHF (congestive heart failure): Code(s): I50.9 - Heart failure, unspecified Status: Acute (4) Diabetes mellitus: Code(s): E11.9 - Type 2 diabetes mellitus without complications Status: Acute (5) Aortic valve disease: Code(s): I35.9 - Nonrheumatic aortic valve disorder, unspecified Status: Acute (6) PAF (paroxysmal atrial fibrillation): Code(s): I48.0 - Paroxysmal atrial fibrillation Status: Acute Plan I would suggest an MRI of the brain and patient should be transferred to the care of a vascular surgeon for possible intervention for the right internal carotid artery endarterectomy in the meanwhile he is already on aspirin and Eliquis but I do not see him on any statin and hence I will go ahead and put him on atorvastatin 40 mg a day till further decisions are made. Consult date: 06/06/24 HPI: Ashkan Pryor is a 83 year old male With a history of sudden weakness in the lower limbs where he could not walk while he was in a store. The weakness lasted for a period of time and was brought to the hospital. CT scan of brain did not show any abnormality. CT angiogram shows high-grade stenosis in the extracranial vessels. He has not had any new symptoms after admission to the hospital. He denies any bladder or bowel disturbance. There is no change in mental status. His vital signs have been stable. Apparently he was pushing a grocery cart when all of a sudden he could not wear his own weight on the legs. Patient's was present at the time of this evaluation. He did not have loss of speech or any weakness in the arms. He does have history of aortic valve replacement twice, diabetes mellitus, atrial fibrillation, COPD and is on Eliquis. The he denies any chest pain or shortness of breath. Review of Systems Review of Systems: All systems reviewed & are unremarkable except as noted in HPI and below [facility] Past Medical History Medical History (Updated 06/06/24 @ 14:13 by Juvenal Nye MD) Aortic valve disease Atrial fibrillation CHF (congestive heart failure) COPD (chronic obstructive pulmonary disease) Diabetes mellitus Right-sided extracranial carotid artery stenosis TIA (transient ischemic attack) Surgical History Surgical History H/O aortic valve replacement Family History Family History Father Hypertension Heart disease Mother Cancer Diabetes mellitus Hypertension Social History Social History Smoking status: Never smoker Alcohol intake: never Substance use: never Substance use type: does not use Do You Feel Safe in your Home?: Yes Lack of Transportation: No Lack of Food: Never True Current Housing: I Have Housing Concerned About Future Housing: No Difficulty Paying Gas/Electric Bills: No Difficulty Paying for Meds: No Currently Unemployed: No Education: High School Diploma/GED Difficulty w/ Childcare or Family Care: No Living arrangements: with family Occupation/Education: retired Gender identity (if verbalized b
--- NOTE | 2024-06-06 14:50 | PM.TDS ---
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 Sandoval accepting patient with Vacular surgeon Dr. Colindres consulted [facility] floor DS: Admitting Diagnosis Discharge Date 06/06/2024 Admitting Diagnosis Generalized weakness urinary tract infection congestive heart failure hypertension AFib DS: Discharge Diagnosis Discharge Diagnosis (1) Generalized weakness: Code(s): R53.1 - Weakness Status: Acute (2) Urinary tract infection: Code(s): N39.0 - Urinary tract infection, site not specified Status: Acute (3) CHF (congestive heart failure): Code(s): I50.9 - Heart failure, unspecified Status: Acute (4) HTN (hypertension): Code(s): I10 - Essential (primary) hypertension Status: Acute (5) Atrial fibrillation: Code(s): I48.91 - Unspecified atrial fibrillation Status: Acute Transfer Discharge Sum: Med Medications Active and Home Medications: Home Medications carvedilol 25 mg tablet 25 mg PO BID #180 tabs 02/14/23 [Rx Confirmed 06/05/24] doxazosin 4 mg tablet 4 mg PO DAILY #90 tabs 02/14/23 [Rx Confirmed 06/05/24] losartan 100 mg tablet 100 mg PO DAILY #90 tabs 02/14/23 [Rx Confirmed 06/05/24] albuterol sulfate 90 mcg/actuation aerosol inhaler 1 inh inhalation Q4H PRN Shortness Of Breath Or Wheezing 12/27/23 [History Confirmed 06/05/24] apixaban 5 mg tablet 5 mg PO BID 12/27/23 [History Confirmed 06/05/24] aspirin 81 mg tablet,delayed release (Adult Aspirin Regimen) 81 mg PO DAILY 12/27/23 [History Confirmed 06/05/24] glipizide 5 mg tablet, extended release 24 hr 5 mg PO DAILY 12/27/23 [History Confirmed 06/05/24] lancets 30 gauge 12/27/23 [History Confirmed 06/05/24] amlodipine 10 mg tablet 10 mg PO DAILY #90 tabs 01/07/24 [Rx Confirmed 06/05/24] furosemide 40 mg tablet 40 mg PO DAILY #90 tabs 01/07/24 [Rx Confirmed 06/05/24] blood sugar diagnostic (Accu-Chek Guide test strips) #100 ea 02/22/24 [Rx Confirmed 06/05/24] blood-glucose meter (Accu-Chek Guide Glucose Meter) #1 ea 02/22/24 [Rx Confirmed 06/05/24] atorvastatin 80 mg tablet 80 mg PO DAILY 05/29/24 [History Confirmed 06/05/24] Active Medications Albuterol (Albuterol Sulfate (*Sp) Aerosol 1 Puff) 2 puff INHALATION Q4H PRN PRN Reason: Shortness Of Breath Or Wheezing Amlodipine Besylate (Amlodipine Besylate 10 Mg Tablet) 10 mg PO DAILY [facility] Last Admin: 06/06/24 10:38 Dose: 10 mg Apixaban (Apixaban 5 Mg Tablet) 5 mg PO Q12HR [facility] Last Admin: 06/06/24 10:38 Dose: 5 mg Aspirin (Aspirin 81 Mg Enteric Tablet) 81 mg PO DAILY [facility] Last Admin: 06/06/24 10:38 Dose: 81 mg Atorvastatin Calcium (Atorvastatin 40 Mg Tablet) 40 mg PO DAILY [facility] Carvedilol (Carvedilol 25 Mg Tablet) 25 mg PO Q12HR [facility] Last Admin: 06/06/24 10:38 Dose: 25 mg Doxazosin Mesylate (Doxazosin Mesylate 4 Mg Tablet) 4 mg PO DAILY [facility] Last Admin: 06/06/24 10:38 Dose: 4 mg Furosemide (Furosemide 40 Mg Tablet) 40 mg PO DAILY [facility] Ceftriaxone Sodium (Rocephin 1 Gm/Ns 50 Ml) 1 gm in 50 mls @ 100 mls/hr IVPB Q24H [facility] Losartan Potassium (Losartan Potassium 100 Mg Tablet) 100 mg PO DAILY [facility] Last Admin: 06/06/24 10:38 Dose: 100 mg Transfer Discharge Sum: Hosp Hospital Course Hospital course: Ashkan Pryor is a 83 year old male with a past medical history significant for congestive heart failure, COPD, atrial fibrillation on anticoagulati
--- NOTE | 2024-06-06 15:15 | PC.NURSE ---
RN spoke with Laura from [facility] and provided her with last set of vitals along with the reason for admission.
--- NOTE | 2024-06-06 16:44 | PC.NURSE ---
Laura from [facility] called to inform RN that the patients room number is 142 at [facility]. The number to call report is [phone].
[2024-06-06 17:00] VITALS: BP 129/58; PULSE 73; RESP 18; TEMP 36.6; O2SAT 97
--- NOTE | 2024-06-06 17:22 | PC.NURSE ---
RN called report at 1720 to TIM Neumann who will be taking care of patient in room 142. Nel was provided with medical hx and was also provided with vitals that were taken on 1700. Nel had no further questions for RN at this time and was made aware of all the scan results as well as informed her of the access, and pt being a medtele. Pt is a ALS transfer.
--- NOTE | 2024-06-06 18:30 | PC.NURSE ---
Pt left with IV access and on medtele monitor. Pt is stable and had no signs of distress.
[2024-06-12 09:13] LABS: Estimated CRCL calculation 49 ml/min; Estimated Glomerular Filt Rate > 60
== END 2024-06-06 18:30 ==
LOC: ANHED 20:33 → ANH3MEDSUR 22:20
PROVIDERS: Emergency Medicine; Admitting Provider Internal Medicine; Emergency Provider Registered Nurse; PCP Family Medicine; Visit Provider Student in an Organized Health Care Education/Training Program
DX: I65.23 Occlusion and stenosis of bilateral carotid arteries (principal); N39.0 Urinary tract infection, site not specified; R53.1 Weakness; I11.0 Hypertensive heart disease with heart failure; I50.9 Heart failure, unspecified; I48.0 Paroxysmal atrial fibrillation; I35.9 Nonrheumatic aortic valve disorder, unspecified; J44.9 Chronic obstructive pulmonary disease, unspecified; E11.9 Type 2 diabetes mellitus without complications; E86.0 Dehydration; M48.00 Spinal stenosis, site unspecified; Z79.4 Long term (current) use of insulin; Z79.84 Long term (current) use of oral hypoglycemic drugs; Z79.01 Long term (current) use of anticoagulants; Z79.82 Long term (current) use of aspirin; Z79.51 Long term (current) use of inhaled steroids; Z79.899 Other long term (current) drug therapy; Z95.2 Presence of prosthetic heart valve
CPT/HCPCS: 36415; 70450; 70496; 70498; 70551; 71045; 80053; 80061; 81001; 82565; 82948; 83605; 83880; 84443; 84484; 85025; 85610; 85730; 86140; 87040; 87086; 93005; 96361; 96365; 96375; 99285; A9270; G0378; J0696; J1940; J7030; Q9967

== ENCOUNTER 2024-09-08 14:51 | Emergency (ER) | payer MEDICARE, SELFPAY ==
--- NOTE | ~2024-09-08 | XR_ITS ---
EXAMINATION: XR chest 1V portable DATE: 09/08/2024 15:41 INDICATION: The patient doesn't feel right. Feels off. TECHNIQUE: A single frontal view of the chest was obtained. COMPARISON: Chest single view 06/05/2024, chest 2 views 07/07/2022 FINDINGS: Calcified left lung nodules are consistent with old granulomatous disease. No pleural effus ion or pneumothorax. Cardiomegaly is noted. There are changes of aortic valve replacement. IMPRESSION: 1. Cardiomegaly. Reviewed, dictated and finalized at location B. GY EFFICIENCY ENGINEER IMPRESSION: 1. Cardiomegaly.
--- NOTE | ~2024-09-08 | CT_ITS ---
EXAMINATION: CT brain wo con DATE: 09/08/2024 15:42 INDICATION: Temporary change in awareness. Dizziness and lack of coordination. TECHNIQUE: Computed tomography (CT) of the head was performed without intravenous contrast. Sagittal and coronal reconstructions were performed. The mA was adjusted according to patient size. Iterative reconstruction technique was employed. The dose-length product was 605.33 mGy-cm. 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 No acute intracranial hemorrhage, ac [place] infarction or abnormal extra axial fluid collection. There is mild scattered white matter hypoatt enuation consistent with chronic small vessel ischemic disease. Symmetric prominence of the sulci con sistent with mild age-appropriate diffuse cerebral volume loss. And ventricles are normal and symmetr ic. No mass/mass effect. The orbits, paranasal sinuses and mastoid air cells are normal. Intracranial calcified cerebral atherosclerosis is noted. IMPRESSION: 1. 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 No other acute intracranial process. Reviewed, dictated and finalized at location A. ONICS ENGINEERING TECHNOLOGIST IMPRESSION: 1. 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 No ot her acute intracranial process.
[2024-09-08 14:51] VITALS: BP 167/62; PULSE 70; PULSE 72; RESP 18; RESP 20; TEMP 36.2; O2SAT 98
[2024-09-08 15:00] VITALS: BP 140/60; PULSE 70; O2SAT 98
--- NOTE | 2024-09-08 15:03 | ECG_ITS ---
Test Date: 2024-09-08 15:18:49 Measurements Intervals [place] Rate: 70 P: 39 NM: 254 QRS: 96 QRSD: 164 T: -61 QT: 471 QTc: 512 Interpretive Statements SINUS RHYTHM WITH FIRST DEGREE AV BLOCK WITH FREQUENT SUPRAVENTRICULAR PREMATURE COMPLEXES BORDERLINE RIGHT AXIS DEVIATION [QRS AXIS > 90] LEFT BUNDLE BRANCH BLOCK [120+ ms QRS DURATION, 80+ ms Q/S IN V1/V2, 85+ ms R IN I/aVL/V5/V6] Compared to ECG 06/05/2024 17:20:25 Indeterminate axis no longer present Electronically Signed On 09-08-2024 17:57:39 COMMUNITY DEVELOPMENT OFFICER by Ekta Smalls M.D.
[2024-09-08 15:21] LABS: Basophils Absolute Auto 0.04 K/mm3 (0.00-0.10); Basophils Percent Auto 0.6 % (0.0-1.0); Eosinophils Absolute Auto 0.12 K/mm3 (0.02-0.50); Eosinophils Percent Auto 1.9 % (1.0-6.0); Hematocrit 36.7 % (37.0-46.0); Hemoglobin 11.7 g/dL (12.4-15.3); Immature Granulocyte Absolute 0.02 K/mm3 (0.00-0.00); Immature Granulocyte Percent A 0.3 % (0.0-0.0); Lymphocytes Absolute Auto 1.42 K/mm3 (1.10-4.50); Mean Corpuscular HGB Conc 31.9 g/dL (32-36); Mean Corpuscular Hemoglobin 30.5 pg (27.0-31.0); Mean Corpuscular Volume 95.6 fL (78.0-102.0); Mean Platelet Volume 10.5 fl (8.7-11.0); Monocytes Absolute Auto 0.76 K/mm3 (0.10-0.90); Monocytes Percent Auto 11.8 % (2.0-11.0); Neutrophils Percent Auto 63.4 % (50.0-70.0); Platelet Count Result 199 K/mm3 (150-420); Red Blood Count 3.84 M/mm3 (4.70-6.10); Red Cell Distribution Width 14.7 % (11.6-14.4); White Blood Count 6.5 K/mm3 (4.8-10.8)
--- NOTE | 2024-09-08 15:38 | PC.NURSE ---
PT HAS RETURNED FROM CT AT THIS TIME.
[2024-09-08] MEDS: APIXABAN 2.5 MG TABLET 5 MG PO (15:43)
[2024-09-08 15:46] LABS: Alanine Aminotransferase 12 U/L (16-63); Albumin Level 2.9 g/dL (3.4-5.0); Alkaline Phosphatase 51 U/L (46-116); Anion Gap 9 mmol/L (4-12); Aspartate Amino Transferase 15 U/L (15-37); Bilirubin,Total 0.4 mg/dL (0.00-1.00); Blood Urea Nitrogen 23 mg/dL (7-18); Calcium 8.9 mg/dL (8.5-10.1); Carbon Dioxide 28 mmol/L (21-32); Chloride 105 mmol/L (98-108); Estimated CRCL calculation 52 ml/min; Estimated Glomerular Filt Rate 59; Glucose 94 mg/dL (70-99); Osmolality Calculated 297 mOsm/kg (285-295); Potassium 3.9 mmol/L (3.5-5.1); Sodium 142 mmol/L (136-145); Total Protein 6.9 g/dL (6.4-8.2); Troponin I 16.5 ng/L (0.00-60.4)
[2024-09-08 15:48] VITALS: BP 137/58; PULSE 70; RESP 16; O2SAT 97
[2024-09-08 15:54] LABS: Creatine Kinase 85 U/L (39-308)
[2024-09-08 16:02] VITALS: BP 128/57; PULSE 66; RESP 19; O2SAT 96
--- NOTE | 2024-09-08 16:13 | PC.NURSE ---
erp is at bedside speaking with and pt at this time. nad noted. pt denies any needs or complaints. will continue to monitor.
--- NOTE | 2024-09-08 16:18 | ED.AMS ---
HPI - Altered Mental Status General Chief Complaint: Altered Mental Status Stated Complaint: Dizziness Time Seen by Provider: 09/08/24 15:02 Source: patient Mode of arrival: ambulatory Limitations: no limitations History of Present Illness HPI narrative: Patient is 84-year-old male with significant past medical history that presents today with confusion. Patient states that for the last 3 days he has been confused and not felt like himself. He denies any weakness or any signs of a stroke. 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 Other than that he just does not feel like himself. He is felt currently confused and he said his back has been bothering him a lot so he has not been able to move around a lot and also has not gotten much sleep. There is a possibility of TIA will do workup to rule this out. MD complaint: confusion Onset (ago): day(s) Timing confirmed by: spouse Severity: mild Consistency of symptoms: waxing and waning Associated symptoms: denies other symptoms Related Data Home Medications ?Medication ?Instructions ?Recorded ?Confirmed ?Last Taken ?Type albuterol sulfate 90 mcg/actuation 1 inh inhalation Q4H PRN Shortness 12/27/23 06/05/24 05/17/24 History aerosol inhaler Of Breath Or Wheezing apixaban 5 mg tablet 5 mg PO BID 12/27/23 06/05/24 05/17/24 History aspirin 81 mg tablet,delayed 81 mg PO DAILY 12/27/23 06/05/24 05/17/24 History release (Adult Aspirin Regimen) glipizide 5 mg tablet, extended 5 mg PO DAILY 12/27/23 06/05/24 05/17/24 History release 24 hr lancets 30 gauge 12/27/23 06/05/24 Unknown History atorvastatin 80 mg tablet 80 mg PO DAILY 05/29/24 06/05/24 Unknown History Allergies Allergy/AdvReac Type Severity Reaction Status Date / Time metformin AdvReac Intermediate Diarrhea Verified 09/08/24 14:59 Review of Systems Constitutional: Constitutional: Reports as per HPI Eyes: Eyes: Reports no additional eye complaints ENT: Reports system reviewed and no additional complaints, except as documented Cardiovascular: Cardiovascular: Reports no additional cardiovascular complaints Respiratory: Respiratory: Reports no additional respiratory complaints Gastrointestinal: Gastrointestinal: Reports no additional gastrointestinal complaints Genitourinary: Genitourinary: Reports no additional male genitourinary complaints Musculoskeletal: Musculoskeletal: Reports no additional musculoskeletal complaints Integumentary/Breasts: Skin/Breast: Reports system reviewed and no additional complaints, except as docu Neurologic: Reports confusion Psychiatric: Psychiatric: Reports no additional psychiatric complaints Endocrine: Endocrine: Reports no additional endocrine complaints Hematologic/Lymphatic: Hematologic/Lymphatic: Reports no additional hematologic/lymphatic complaints Allergic/Immunologic: Allergic/Immunologic: Reports no additional allergic/immunologic complaints [facility] Past Medical History Medical History TIA (transient ischemic attack) Right-sided extracranial carotid artery stenosis COPD (chronic obstructive pulmonary disease) Diabetes mellitus CHF (congestive heart failure) Atrial fibrillation Aortic valve disease Surgical History Surgical History H/O aortic valve replacement Family History Family History Father Hypertension Heart disease Mother Cancer Diabetes mellitus Hypertension Social History Social History Smoking status: Never smoker Alcohol intake: never Substance use: never Substance use type: does not use Do You Feel Safe in your Home?: Yes Lack of Transportation: No Lack of Food: Never True Current Housing: I Have Housing Concerned About Future Housing: No Difficulty Paying Gas/Electric Bills: No Difficulty Paying for Meds: No Currently Unemployed: No Education: High School Diploma/GED Difficulty w/ Childcare or Family Care: No Living arrangements: with family Occupation/Education: retired Gender identity (if verbalized by the patient): Male Spiritual care concerns: No Exam Const: General: healthy appearing Nutritional Appearance: well nourished Orientation/consciousness: patient oriented x3 HENMT: Head: normal to inspection Ears: external ears normal Face/Nose/Sinus: Normal external nose present Face and sinus: normal facial exam Mouth: Yes Normal oral and palatal mucosa present Eyes: Conjunctivae: conjunctivae normal Pupils: Equal, round and reactive pupils present EOM: EOMs intact bilaterally Neck: Neck: normal visual inspection Chest: Chest palpation & inspection: normal inspection of the chest Resp: Effort & Inspection: normal respiratory effort Auscultation: clear to auscultation bilaterally Cardio: Rate: regular rate Rhythm: regular rhythm GI: GI Palp: Yes Soft to palpation Back/Spine/Pelvis: Back: no CVA tenderness Skin: General skin exam: normal color Rashes: no rashes Wounds: no wounds Neuro: General: patient oriented x3 Cranial nerves: Yes Nystagmus not present Speech: normal speech Extrem: General: normal to inspection Psych: Mental Status: mental status grossly normal Affect: normal affect Attitude: cooperative Course Vital Signs Vital signs: Vital Signs Temperature 97.2 F L 09/08/24 14:51 Pulse Rate 70 09/08/24 14:51 Respiratory Rate 18 09/08/24 14:51 Blood Pressure 167/62 H 09/08/24 14:51 Pulse Oximetry 98 09/08/24 14:51 Oxygen Delivery Room Air 09/08/24 14:51 Temperature 97.2 F L 09/08/24 14:51 Pulse Rate 72 09/08/24 14:51 Respiratory Rate 20 09/08/24 14:51 Blood Pressure 167/62 H 09/08/24 14:51 Pulse Oximetry 98 09/08/24 14:51 Oxygen Delivery Room Air 09/08/24 14:51 MDM - Altered Mental Status MDM Narrative Medical decision making narrative: Patient's symptoms her a little strange that he has just had to some confusion and seems to be possibilities just to start of dementia at his age and he is starting a little confused. Will rule out TIA and do full TIA workup and do CT of the head and due for blood work as well. As stated most likely think that he is just getting has slight dementia and is starting to get little bit worse. Had did have this discussion with him as well and he understands and is accepting of that as well. Will also check his urine for UTI as this could cause some of his symptoms as well. Differential Diagnosis Differential diagnosis: Likely altered mental status and dementia Medical Records Attestation: I reviewed the patient's medical records. Lab Data Attestation: I reviewed the patient's lab results. 09/08/24 15:15 09/08/24 15:15 Labs: Lab Results 09/08/24 09/08/24 Range/Units 15:03 15:15 WBC 6.5 (4.8-10.8) K/mm3 RBC 3.84 L (4.70-6.10) M/mm3 Hgb 11.7 L (12.4-15.3) g/dL Hct 36.7 L (37.0-46.0) % MCV 95.6 (78.0-102.0) fL MCH 30.5 (27.0-31.0) pg MCHC 31.9 L (32-36) g/dL RDW 14.7 H (11.6-14.4) % Plt Count 199 (150-420) K/mm3 MPV 10.5 (8.7-11.0) fl Immature Gran % (Auto) 0.3 H (0.0-0.0) % Neut % (Auto) 63.4 (50.0-70.0) % Lymph % (Auto) 22.0 (18.0-42.0) % [place] % (Auto) 11.8 H (2.0-11.0) % Eos % (Auto) 1.9 (1.0-6.0) % Baso % (Auto) 0.6 (0.0-1.0) % Lymph # (Auto) 1.42 (1.10-4.50) K/mm3 [place] # (Auto) 0.76 (0.10-0.90) K/mm3 Eos # (Auto) 0.12 (0.02-0.50) K/mm3 Baso # (Auto) 0.04 (0.00-0.10) K/mm3 Abs Immat Gran (auto) 0.02 H (0.00-0.00) K/mm3 Absolute Neuts (auto) 4.10 (1.70-7.20) K/mm3 Absolute Nucleated RBC 0.00 (0.00-0.00) K/mm3 Nucleated RBC % 0.0 (0-0.0) % Sodium 142 (136-145) mmol/L Potassium 3.9 (3.5-5.1) mmol/L Chloride 105 (98-108) mmol/L Carbon Dioxide 28 (21-32) mmol/L Anion Gap 9 (4-12) mmol/L BUN 23 H (7-18) mg/dL Creatinine 1.17 (0.70-1.30) mg/dL Estim Creat Clear Calc 52 ml/min Estimated GFR 59 (59 - ) Glucose 94 (70-99) mg/dL Calculated Osmolality 297 H (285-295) mOsm/kg Calcium 8.9 (8.5-10.1) mg/dL Total Bilirubin 0.4 (0.00-1.00) mg/dL AST 15 (15-37) U/L ALT 12 L (16-63) U/L Alkaline Phosphatase 51 (46-116) U/L Total Creatine Kinase 85 (39-308) U/L Troponin I 16.5 (0.00-60.4) ng/L Total Protein 6.9 (6.4-8.2) g/dL Albumin 2.9 L (3.4-5.0) g/dL Urine Color Light yellow (Yellow) Urine Appearance Cloudy A (Clear) Urine pH 6.0 (5.0-8.0) Ur Specific [place] 1.015 (1.010-1.020) Urine Protein Negative (Negative) Urine Glucose (UA) Negative (Negative) Urine Ketones Negative (Negative) Ur Blood (Man) Trace-intact H (Negative) Urine Nitrate Negative (Negative) Urine Bilirubin Negative (Negative) Urine Urobilinogen 0.2 (0.2-1.0) mg/dL Leukocyte Esterase Rfl 2+ H (Negative) JUAN/UL Urine RBC 0-2 (0-2) /hpf Urine WBC >75 H (0-3) /hpf Ur Squamous Epith Cells Rare (Few) /hpf Urine Bacteria 2+ H (None) /hpf Imaging Data Attestation: I personally reviewed and interpreted this imaging study as follows: Discharge Plan Discharge Clinical Impression: Altered mental status, Bacterial UTI Patient Disposition: Home, Self-Care Condition: Stable Instructions: Antibiotic Form, Urinary Tract Infection in Men (ED) Patient Language: German Prescriptions: New levofloxacin 500 mg tablet 500 mg PO DAILY 7 Days Qty: 7 0RF No Action apixaban 5 mg tablet 5 mg PO BID aspirin [Adult Aspirin Regimen] 81 mg tablet,delayed release (DR/EC) 81 mg PO DAILY glipizide 5 mg tablet extended release 24hr 5 mg PO DAILY (DME) lancets 30 gauge misc See Rx Instructions .Route Rx Instructions: As directed albuterol sulfate 90 mcg/actuation HFA aerosol inhaler 1 inh inhalation Q4H PRN (Reason: Shortness Of Breath Or Wheezing) atorvastatin 80 mg tablet 80 mg PO DAILY carvedilol 25 mg tablet 25 mg PO BID Qty: 180 3RF doxazosin 4 mg tablet 4 mg PO DAILY Qty: 90 3RF losartan 100 mg tablet 100 mg PO DAILY Qty: 90 3RF amlodipine 10 mg tablet 10 mg PO DAILY Qty: 90 3RF furosemide 40 mg tablet 40 mg PO DAILY Qty: 90 3RF (DME) blood-glucose meter [Accu-Chek Guide Glucose Meter] Misc See Rx Instructions .Route Qty: 1 3RF Rx Instructions: Check Blood Glucose 1xday As directed (DME) Accu-Chek Guide test strips Strip See Rx Instructions .Route Qty: 100 3RF Rx Instructions: Check blood glucose 1xday As directed Follow-up/Referrals: Barry Ralph MD [Primary Care Provider] - Time of Disposition: 17:29
--- NOTE | 2024-09-08 16:42 | PC.NURSE ---
URINE SPECIMEN OBTAINED AND SENT TO LAB. URINE NOTED TO HAVE FOUL ODOR AND CLOUDY APPEARANCE. AT BEDSIDE. PT IS AWAITING RESULTS. NAD NOTED. WILL CONTINUE TO MONITOR.
[2024-09-08 16:47] LABS: Add Urine Microscopic? YES; Bilirubin Urine Negative (Negative); Blood Urine Trace-intact (Negative); Color Urine Light Yellow (Yellow); Glucose Urine UA Negative (Negative); Ketones Urine Negative (Negative); Leukocyte Esterase Ur 2+ LEU/UL (Negative); Nitrate Urine Negative (Negative); Protein Urine Negative (Negative); Specific Grav Ur 1.015 (1.010-1.020); Urobilinogen Urine 0.2 mg/dL (0.2-1.0)
[2024-09-08 16:51] LABS: Appearance Urine Cloudy (Clear); Bacteria Urine 2+ /hpf; RBC Urine 0-2 /hpf (0-2); Squamous Epithelial Cell Urine Rare /hpf (Few); WBC Urine >75 /hpf (0-3)
[2024-09-08 17:01] VITALS: BP 130/60; PULSE 68; RESP 18; O2SAT 98
[2024-09-08] MEDS: levoFLOXacin 500 MG TABLET PO (17:33)
--- NOTE | 2024-09-08 17:45 | PC.NURSE ---
pt was ambulatory out of ed without distress, assisting. pt a&ox4 upon dc.
--- NOTE | 2024-09-10 14:39 | PC.NURSE ---
urine culture preliminary, gram neg bacilli. awaiting final.
--- NOTE | 2024-09-11 13:32 | PC.NURSE ---
Per , patient is in [facility] ER. Culture report faxed to [facility], [place]. [phone], Attn: Delia DUMONT
--- OUTSIDE RECORDS SUMMARY | 2024-09-11 14:37 | XMS_ITS | Clinical Summary ---
Author Organization [facility] Address Critical access hospital[address] [facility] [place] [address] [place] [address] Care Team Providers Care Television Inspector Name Role Phone Robin Nelson MD Primary Care Provider [phone] Allergies No known active allergies Medications warfarin 2 MG tablet TAKE 2 TABLETS (4 MG) BY MOUTH ONCE DAILY OR DIRECTED 0 Active Albuterol Sulfate 108 (90 Base) MCG/ACT AEROSOL POWDER, BREATH ACTIVATED Inhale 1 puff into the lungs as needed. Active salmeterol (SEREVENT DISKUS) 50 MCG/DOSE diskus inhaler Inhale 1 puff into the lungs 2 (two) times daily. Active potassium chloride CR 10 MEQ Tab CR tablet Take 10 mEq by mouth daily. 0 Active AMLODIPINE 10 MG tabletIndications :Hypertension TAKE 1 TABLET BY MOUTH EVERY DAY 90 tablet 1 0 Active METFORMIN 1000 MG tabletIndications :Diabetes mellitus ([facility]) TAKE 1 TABLET BY MOUTH TWICE A DAY 60 tablet 2 1 Active PIOGLITAZONE 15 MG tabletIndications :Type 2 diabetes mellitus with stage 3a chronic kidney disease, without long-term current use of insulin ([facility]) TAKE 1 TABLET BY MOUTH EVERY DAY 30 tablet 1 Active SIMVASTATIN 20 MG tabletIndications :Dyslipidemia TAKE 1 TABLET BY MOUTH EVERY DAY AT NIGHT 90 tablet 1 Active FUROSEMIDE 40 MG tabletIndications :Hypertension TAKE 1 TABLET BY MOUTH EVERY DAY 90 tablet 1 Active DOXAZOSIN 4 MG tabletIndications :Essential hypertension TAKE 1 TABLET BY MOUTH EVERY DAY AT NIGHT 90 tablet 1 Active CARVEDILOL 25 MG tabletIndications :Hypertension TAKE 1 TABLET BY MOUTH TWICE A DAY 180 tablet 1 Active LOSARTAN 100 MG tabletIndications :Hypertension TAKE 1 TABLET BY MOUTH EVERY DAY 90 tablet 1 Active PAROXETINE 20 MG tabletIndications :Anxiety TAKE 1 TABLET BY MOUTH EVERY DAY IN THE MORNING 90 tablet 1 Active Active Problems Problem Noted Date Diagnosed Date COPD (chronic obstructive pu lmonary disease) ([facility]) 02/02/2020 Diabetes mellitus ([facility]) Hypertension Immunizations Name Administration Dates Next Due Flublok (Quadrivalent) 06/02/2020 Fluzone High Dose - >Age 65 (Prefilled Syringe) 07/02/2018 PFIZER COVID-19 (ORIGINAL FO RMULATION, PURPLE CAP) mRNA, LNP-S, PF, 30 MCG/0.3 ML DOSE 10/23/2020,09/25/2020 Tdap (Generic) 03/08/2019,03/19/2016 Zoster (Zostavax) 47746 Unt/0.65Ml 03/19/2016 Social History Tobacco Use Types Packs/Day Years Used Date Smoking Tobacco: Never Smokeless Tobacco: Never Tobacco Cessation:Counseling Given: Yes Alcohol Use Standard Drinks/Week Comments Not Currently 0 (1 standard drink = 0.6 oz pur e alcohol) PHQ-2 Answer Date Recorded PHQ-2 Score - If the patient scores above 3, please move on to questions 3-9 0 02/02/2020 Sex and Gender Information Value Date Recorded Sex Assigned at Not on file Legal Sex Male 2:08 PM CDT Gender Identity Not on file Sexual Orientation Not on file Last Filed Vital Signs Vital Sign Reading Time Taken Comments Blood Pressure 155/71 09/19/2021 12:53 PM SYSTEMS DESIGNER Pulse 68 09/19/2021 12:53 PM SYSTEMS DESIGNER Temperature 35.8 ??C (96.5 ??F) 09/19/2021 11:[address] Respiratory Rate 20 09/19/2021 11:03 AM SYSTEMS DESIGNER Oxygen Saturation 95% 09/19/2021 12:53 PM SYSTEMS DESIGNER Inhaled Oxygen Concentration - - Weight 113.4 kg (250 lb) 09/15/2021 2:17 PM SYSTEMS DESIGNER Height 182.9 cm (6') 09/15/2021 2:17 PM SYSTEMS DESIGNER Body Mass Index 33.91 09/15/2021 2:17 PM SYSTEMS DESIGNER Plan of Treatment Health Maintenance Due Date Last Done Comments Kidney Health Evaluation 1940 Pneumococcal Vaccine: 65+ Years (1 of 2 - PCV) 1945 Diabetes: Retinopathy Eye Exam 1957 Annual Medicare Wellness Visit 2004 RSV Immunization or 60+ Years (1 - 1-dose 75+ series) 2014 Zoster Vaccines (2 of 3) 05/14/2016 03/19/2016 Hemoglobin A1C 01/02/2021 07/05/2020, 02/02/2020 Lipid Panel 02/01/2021 02/02/2020 COVID-19 Vaccine (3 - 2023-2 5 season) 2024 10/23/2020, 09/25/2020 Influenza Adult (#1) 2024 06/02/2020, 07/02/2018 DTaP, Tdap and Td Vaccines ( 3 - Td or Tdap) 03/08/2029 03/08/2019, 03/19/2016 Meningococcal Vaccine Aged Out No miriam michael eligible based on patient's age to complete this topic RSV Immunizations Under 20 Months Aged Out No longer eligible b ased on patient's age to complete this topic Medical Devices Implanted Type Area Territory Business Manager Device Identifier Shelf Expiration Date Model / Serial / Lot Intraocular Lens Implanted:Qty: 1 on 09/19/2021 by Daren Ralph MD at [facility] Left: Eye 04/14/2023 [id number] / [id number] / Procedures Procedure Name Priority Date/Time Associated Diagnosis Comments HEMOGLOBIN, GLYCOSYLATED Routine 07/05/2020 Type 2 diabetes mellitus with stage 3a chronic kidney disease, without long-term current use of insulin ([facility]) LIPID PANEL Routine 02/02/2020 11:47 AM CDT Dyslipidemia from Last 3 Months or Most Recently Relevant to Health Maintenance Results * HEMOGLOBIN, GLYCOSYLATED (07/05/2020) HGB A1C 8.2 % [address] ([id number] [facility]) ENERGY 07/05/2020 Collette Stockton MD LABORATORY Final Result [address] ([id number] [facility]) ENERGY [address] [place] [address], * (ABNORMAL) LIPID PANEL (02/02/2020 11:47 AM CDT) [facility] CHOLESTEROL 123 <200 mg/dL [facility] HDL 37(L) > OR = 40 mg/dL [facility] [employer] [facility] TRIGLYCERIDES 237(H) <150 mg/dL [facility] Comment: If a non-fasting specimen was collected, consider repeat triglyceride testing on a fasting specimen if clinically indicated. Amrit et al. J. of Clin. Lipidol. 2015;9:129-169. LDL (CALCULATED) 56 mg/dL (calc) [facility] [employer] [facility] Comment: Reference range: <100 Desirable range <100 mg/dL for primary prevention; ?? <70 mg/dL for patients with CHD or diabetic patients with > or = 2 CHD risk factors. LDL-C is now calculated using the Herber-Chapa calculation, which is a validated novel method providing better accuracy than the Friedewald equation in the estimation of LDL-C. Herber SS et al. SADE. 2013;310(19): 4595-7123 (http://education.SmartCup.TwoF/faq/IRN930) CHOL/HDL RATIO 3.3 <5.0 (calc) [facility] NON HDL CHOLESTEROL 86 <130 mg/dL (calc) [employer] [facility] Comment: For patients with diabetes plus 1 major ASCVD risk factor, treating to a non-HDL-C goal of <100 mg/dL (LDL-C of <70 mg/dL) is considered a therapeutic option. 02/02/2020 11:4 7 AM CDT 02/03/2020 3:01 AM CDT Narrative Resulting Agency Comment Performing Organization Information: ?Site ID: [id number] ?Name: [email or web address] ?Address: [address] [id number] ?Director: Siva Roman D.O., MPH us Collette Stockton MD LABORATORY Final Result [facility] [id number] [address], [place] from Last 3 Months or Most Recently Relevant to Health Maintenance Insurance [facility] Care Teams Television Inspector Relationship Specialty Start Date End Date Robin Nelson MD [address] [place] [address] PCP - General INTERNAL MEDICINE 08/10/21
--- OUTSIDE RECORDS SUMMARY | 2024-09-11 14:37 | XMS_ITS | Clinical Summary ---
Author Organization [facility] Address [address] [place] [address] Care Team Providers Care Spa Experience Coordinator Name Role Phone Barry Ralph MD Primary Care Provider [phone] Rehan Sheth MD Unavailable [phone] Allergies No known active allergies Medications albuterol HFA (PROVENTIL HFA,VENTOLIN HFA,PROAIR HFA) 90 mcg/actuation inhaler Inhale 2 puffs as needed for shortness of breath 015 Active True Metrix Glucose Meter kit USE DIRECTED 1 kit 021 Active lancets (OneTouch Delica Plus Lancet) 30 gauge miscIndications:Ty pe 2 diabetes mellitus with hyperosmolarity without coma, without long-term current use of insulin ([facility] ([facility]) Use to check blood sugar 3x daily 300 each 2 022 Active blood glucose diagnostic (True Metrix Glucose Test Strip) stripIndications:T ype 2 diabetes mellitus with hyperosmolarity without coma, without long-term current use of insulin ([facility] ([facility]) TEST BLOOD SUGAR EVERY DAY 100 strip 3 022 Active DropSafe Alcohol Prep Pads pads, medicated APPLY TOPICALLY TWICE DAILY 100 each 11 022 Active Additional Information Patient not taking.Reported on 10/23/2022 amLODIPine (NORVASC) 10 mg tablet Take 1 tablet (10 mg total) by mouth daily 90 tablet 3 023 Active PARoxetine (PAXIL) 20 mg tablet Take 1 tablet (20 mg total) by mouth every morning 90 tablet 3 023 Active methocarbamoL (ROBAXIN) 500 mg tabletIndications: Chronic midline low back pain without sciatica Take 1 tablet (500 mg total) by mouth 2 (two) times a day as needed for muscle spasms 60 tablet 1 Active atorvastatin (LIPITOR) 80 mg tablet Take 1 tablet (80 mg total) by mouth daily 30 tablet 2 024 2024 Active clopidogreL (PLAVIX) 75 mg tabletIndications: Thrombosis Prevention after PCI Take 1 tablet (75 mg total) by mouth daily 30 tablet 3 024 2024 Active spironolactone (ALDACTONE) 25 mg tablet Take 0.5 tablets (12.5 mg total) by mouth daily 15 tablet 11 024 2024 Active simvastatin (ZOCOR) 20 mg tablet Active doxazosin (CARDURA) 4 mg tablet TAKE 1 TABLET BY MOUTH EVERY NIGHT 100 tablet 2 Active carvediloL (COREG) 25 mg tablet TAKE 1 TABLET BY MOUTH TWICE DAILY WITH MEALS 200 tablet 2 Active glipiZIDE XL (GLUCOTROL XL) 5 mg 24 hr tablet TAKE 1 TABLET BY MOUTH DAILY 100 tablet 2 Active losartan (COZAAR) 100 mg tablet TAKE 1 TABLET BY MOUTH DAILY 60 tablet 5 024 Active apixaban (ELIQUIS) 5 mg tabletIndications: atrial fibrillation Take 1 tablet (5 mg total) by mouth 2 (two) times a day PLEASE RESUME THIS MEDICATION TOMORROW (05/22/2024) 56 tablet Active furosemide (LASIX) 40 mg tablet Take 1 tablet (40 mg total) by mouth 2 (two) times a day Active isosorbide mononitrate ER (IMDUR) 30 mg 24 hr tablet Take 1 tablet (30 mg total) by mouth daily 30 tablet 11 025 2025 Active furosemide (LASIX) 40 mg tablet Take 1 tablet (40 mg total) by mouth daily 90 tablet 3 023 2024 Discontinued(R eorder) apixaban (ELIQUIS) 5 mg tabletIndications: atrial fibrillation Take 1 tablet (5 mg total) by mouth 2 (two) times a day PLEASE RESUME THIS MEDICATION TOMORROW (05/22/2024) 60 tablet 024 2024 Discontinued Active Problems Problem Noted Date Diagnosed Date 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 09/10/2024 Internal carotid artery stenosis, right 06/12/20 Chronic heart failure with p reserved ejection fraction ([facility]/HCC) 06/12/2024 Stage 2 chronic kidney disease 06/12/2024 Thrombocytopenia 06/12/2024 Bilateral leg weakness 06/06/2024 NSTEMI (non-ST elevated myocardial infarction) ( [facility]) 05/20/2024 Assessment & Plan (05/21/2024 11:10 AM CDT): Repeat LHC on 05/20/2024 showed: 60-70% lesion to mid LAD (with a positive IFR of 0.78) and a 90% lesion lesion to ostial circ; RCA with a known QUICK TECHNICIAN (angiography not performed). -s/p Successful PCI to high-grade LAD and circumflex with 2 MAGEN. Plans 1. Clopidogrel 75 mg a day 2. Aspirin 81 mg a day for 4 weeks then discontinue aspirin and continue clopidogrel alone 3. Resume apixaban tomorrow. 4. Continue Atorvastatin 80 mg daily. 5. Will discharge home today. Cardiology clinic to arrange for OP follow-up Assessment & Plan (05/21/2024 7:59 AM CDT): Successful PCI to high-grade LAD and circumflex yesterday. Plans 1. Clopidogrel 75 mg a day Two. Aspirin 81 mg a day for 4 weeks then discontinue aspirin and continue clopidogrel alone Three. Resume apixaban tomorrow. Continue statin drug. Okay for discharge home today. I will arrange follow-up Assessment & Plan (05/20/2024 11:34 AM CDT): Went to [facility] 05/17 for SOB, new 2L O2 requirement - OSH workup: Trp 1.95>5.1>10, proBNP 6800, CXR w/ mild interstitial edema - OSH LHC 9/30 w/ L main widely patent, LAD proximal body 80% stenosis, LAD stent w/ moderate ISR, L cx w/ 95% stenosis in proximal body, OM branches w/ mild disease, RCA is QUICK TECHNICIAN in mid body w/ L to R collaterals - cath films uploaded - OSH TTE reportedly w/ EF 50%, AV prosthesis w/o abnormal gradients - trop here 7,6561, repeat pending - currently denies chest pain or pressure, sob improving - PCI today - continue heparin drip - continue asa, coreg, atorvastatin 80mg - telemetry Assessment & Plan (05/20/2024 1:02 AM CDT): Went to [facility] 05/17 for SOB, new 2L O2 requirement - OSH workup: Trp 1.95>5.1>10, proBNP 6800, CXR w/ mild interstitial edema - OSH LHC 9/30 w/ L main widely patent, LAD proximal body 80% stenosis, LAD stent w/ moderate ISR, L cx w/ 95% stenosis in proximal body, OM branches w/ mild disease, RCA is QUICK TECHNICIAN in mid body w/ L to R collaterals - OSH TTE w/ EF 50%, AV prosthesis w/o abnormal gradients Plan: - OSH imaging uploaded for reference. Interventional cards c/s in AM - ASA - change home simvastatin to atorva 80 - troponin - heparin gtt - coreg - currently cp/SOB free - Telemetry - NPO in case of cath - lipid panel Acute respiratory failure with hypoxia (CMS/HCC) 05/20/2024 Assessment & Plan (05/21/2024 10:58 AM CDT): P/t [facility] 05/17 for SOB, on 3.5L now - OSH wokrup: CXR w/ pulmonary edema, TTE w/ stable EF and AV prosthesis w/o abnormal gradients - mild YUSEF without crackles on exam at time of admission - NT-proBNP 8,388 - transition to PO lasix 40mg daily - Off O2, remains stable. - plan to d/c home later today. Assessment & Plan (05/20/2024 11:50 AM CDT): [facility] 05/17 for SOB, on 3.5L now - OSH wokrup: CXR w/ pulmonary edema, TTE w/ stable EF and AV prosthesis w/o abnormal gradients - mild YUSEF without crackles on exam at time of admission - NT-proBNP 8,388 - continue lasix 40mg iv daily - wean o2 as able - may need walking o2 assessment prior to d/c Assessment & Plan (05/20/2024 1:00 AM CDT): [facility] 05/17 for SOB, on 2L now - OSH wokrup: CXR w/ pulmonary edema, TTE w/ stable EF and AV prosthesis w/o abnormal gradients - mild YUSEF without crackles on exam Plan: - proBNP - consider repeating TTE here - Lasix 40 IV daily - BB: coreg - Afterload: losartan - BMP daily w/ Mg>2, K>4 - strict I/O, daily standing weights, low salt diet Acute on chronic heart failure (CMS/HCC) 024 Assessment & Plan (05/21/2024 10:56 AM CDT): Recent TTE with Mild LV systolic dysfunction (LVEF 50%). Asymptomatic at present. Recent acute symptoms related to coronary ischemia and NSTEMI. -Appears euvolemic on exam. -Continue current GDMT: Carvedilol 25 mg BID, Furosemide 40 mg PO daily, and Losartan 100 mg daily. -tele monitor, strict I&Os, daily weight, 2 g Na diet. -planning for discharge home later today, will f/u OP. Assessment & Plan (05/21/2024 8:00 AM CDT): Mild LV systolic dysfunction. Continue current therapy. Follow-up as an outpatient. Asymptomatic at present. Acute symptoms related to coronary ischemia and NSTEMI. Ejection fraction about 50%. Assessment & Plan (05/20/2024 11:58 AM CDT): Hx of mild systolic heart failure with recovered EF, now 53%, Gr 3 diastolic dysfunction, nl RV function - acute on chronic mild systolic heart failure and diastolic heart failure - NT-proBNP 8, 388, no JVD, very minimal YUSEF, lungs clear - continue lasix 40mg iv daily, can likely switch to home lasix 40mg po daily tomorrow - continue coreg, losartan, amlodipine, doxazosin - BMP daily w/ Mg>2, K>4 - strict I/O, daily standing weights, low salt diet Sacroiliac joint pain 04/23/2024 Overview (07/04/2024): Lauri NEIL 05/15/24 - No significant benefit Assessment & Plan (04/23/2024 5:40 PM CDT): He notes discomfort with palpation of the sacroiliac joints as well as with provocation of the joints. Discussed consideration of bilateral SI joint injections. He would like to trial this. Abnormal chest CT 12/23/2023 Assessment & Plan (12/23/2023 1:07 PM CDT): - Chest CT incidental finding 2.5 mm nodule near the right minor fissure. No unintentional weight loss, family history of lung cancer or personal history of tobacco abuse. Reports multiple years of second-hand smoking. - Recommend repeat chest CT in 1 year Fever, concern for osteomyelitis 12/21/2023 Assessment & Plan (12/26/2023 12:25 PM CDT): Afebrile at present but review of temperature trends demonstrates Tm 37.9 C towards the evenings of 12/20 & 12/22/2023. Has remained febrile since during admission. 12/20/2023 MRI spine w/ T10-11 disc space enhancement w/ adjacent endplate marrow edema and enhancement (ddx: Modic type I degenerative endplate change vs infection), no epidural collection, moderate lumbar spinal canal stenosis. ESR 55, CRP 187.6. 12/21/2023: CT-guided T10-T11 bone biopsy. Path returned with hemosiderin deposition but no signs of acute inflammation or osteomyelitis. Cultures remain NGTD. Fungal and AFB staining in path pending. - Given no signs of osteomyelitis on biopsy, no ID treatment recommended and no follow up needed at this time - ID will follow up AFB stains and fungal stains from path - Due to remote hx of possible TB exposure, T-spot sent which ID will follow up on - Recent TTE (11/13/2023): bioprosthetic AVR; mitral annular calcification; no obvious vegetations - CT chest (12/22/2023): peripheral reticulation and scarring which may represent interstitial lung abnormality; 2. 5 mm nodule near the right minor fissure. - Okay for discharge from ID perspective Assessment & Plan (12/25/2023 5:28 PM CDT): febrile Tmax 38.2 on 12/19. HDS. WBC 11. Spine MRI concerning for osteomyelitis/diskitis. ESR 55. RVP negative. UA unremarkable. Bcx 12/20 NGTD. CXR with non-specific patchy bilateral pulmonary opacities. Multifocal pna can appear similarly. No pulmonary symptoms. Chest CT: peripheral reticulation and scarring which may represent interstitial lung abnormality; 2.5 mm nodule near the right minor fissure. - ID following. Appreciate recommendations. - Spine biopsy (12/20). Vertebral tissue and aspirate aerobic/anaerobic stain no pnm or organisms, cx NGTD. Aspirate fungal cx NGTD. Vertebral tissue and aspirate AFB NGTD. - T-spot collected 12/23 - Holding antibiotics - 12/24: Vertebral biopsy cultures remain NGTD. ID requested addition of fungal and AFB stains to BM biopsy slides. Called path and form for additional request filled. May take upto 7 days. ID team stated they will follow results outpt and since cultures have remained negative and currently path without evidence of osteo, patient does not require abx at present. If cultures/staining are positive, their team will follow results outpt and re-evaluate need for treatment at that time but for now no formal outpatient ID appt is required Spinal stenosis 12/21/2023 Overview (04/23/2024): LESI L5-S1 03/17/24 - minimal benefi Assessment & Plan (07/04/2024 1:02 PM ANTENNA DESIGN ENGINEER): He may just be symptomatic from his stenosis. I discussed surgical evaluation given his ongoing pain with limited success with interventions. He is agreeable to this. Referred to Dr. Robertson. Assessment & Plan (04/23/2024 5:40 PM CDT): He notes some improvement of his pain when he sleeps at night after lumbar epidural steroid injection. However this has not been significantly helpful. Also did not improve the pain into the buttocks with ambulation, standing. 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 Still primarily axial pain but no benefit with LMBB. Assessment & Plan (12/21/2023 8:01 AM CDT): Pt presents with multiple falls and subjective BLE weakness. - Spine MRI showed severe multilevel lumbar spondylosis with moderate L2-L3, moderate to severe L3-L4, and moderate to severe L4-L5 spinal canal stenosis. - Neurosurgery recommending outpatient follow up Falls frequently 12/20/2023 Assessment & Plan (12/25/2023 5:30 PM CDT): Multiple falls over the last approximate 12 months now with increasing frequency, including yesterday with head strike on OAC. Suspect multifactorial due to neuropathy related to his diabetes and lumbar spinal stenosis and potential vertebral OM. MRI of brain no lesions or strokes to explain his falls. Spine MRI showed severe multilevel lumbar spondylosis with moderate L2-L3, moderate to severe L3-L4, and moderate to severe L4-L5 spinal canal stenosis. Also showed findings concerning for OM/diskitis at T10-T11. Aldolase 41.6. ESR 55, CRP 187. MARA, SEYMOUR ab and ANCA negative. - Neurosurgery, no interventions regarding spinal stenosis. ID consulted for potential OM. - Managing potential OM, as elsewhere - Neurology recommends outpatient follow-up and EMG/NCV - PT/OT recommending rehab placement. 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 MRI brain with without contrast demonstrated no additional strokes and BRISEYDA or MCA territory. Spinal MRI without any expansive lesion through enhancement though does have lumbar stenosis. Per the vascular surgery team the carotid artery aneurysm is too high for intervention. - Neurology, neurosurgery, vascular surgery evaluated. Signed off. Subclinical hypothyroidism 12/20/2023 Assessment & Plan (12/21/2023 7:57 AM CDT): TSH 8.48, FT4 1.05. Presently not on any medications, nor reported history of thyroid disorder. Low suspicion that this is cause of weakness - Pt had been initiated on levothyroxine this admission. Will discontinue given subclinical nature. - Recheck TSH/fT4 in 4-6 weeks Lumbar spondylosis 05/13/2021 Overview (03/17/2024): Lauri L3-4 and L5-S1 MBB 03/05/24 no benefit - MRI Brain/Total Spine 12/2023 FINDINGS: BRAIN: The scalp and calvarium are normal. The superior sagittal sinus demonstrates normal venous flow. The corpus callosum is normal in shape and signal intensity. The posterior fossa is unremarkable. The pituitary and sella are normal. The brainstem and craniocervical junction are unremarkable. Diffusion weighted images reveal no hyperintensities to suggest acute cerebral infarction. There are multiple at least 3 scattered foci of susceptibility suggestive of chronic microhemorrhages. The ventricles are normal in size and position without evidence of hydrocephalus. The paranasal sinuses are normal. The visualized portions of the mastoids are unremarkable. The orbits appear normal. Loss of flow void of right petrosal segment ICA corresponding to known dissection (series 7 image 6-8). Redemonstrated 5 mm fusiform dilation of right BRISEYDA A1. CERVICAL SPINE: Trace retrolisthesis of C3 on C4. Otherwise no significant spondylolisthesis. No suspicious or infiltrative marrow signal. No significant marrow edema. No acute fracture is identified. The craniocervical junction is normal. The spinal cord demonstrates normal signal intensity on all sequences. No soft tissue abnormality is identified. Normal signal voids are present in the vertebral arteries. There is no abnormal contrast enhancement. Known right cervical ICA dissection is better demonstrated on 12/17/2023 CTA. Modic type II degenerative endplate changes and moderate disc height loss at C3-C4, C4-C5, and C6-C7. Multilevel posterior disc bulges/posterior disc osteophyte complexes with associated posterior annular fissuring at C3-C4, C4-C5, C5-C6, and C6-C7. Superimposed small central protrusion at C3-C4. Ligamentum flavum hypertrophy at C5-C6. There is resulting multilevel mild canal stenosis at C3-C4 through C6-C7 levels, worst at C5-C6. Multilevel facet and uncovertebral arthropathy results in varying degrees of neural foraminal stenosis up to severe bilateral C3-C4 and left C4-C5. THORACIC SPINE: There is STIR hyperintense signal and enhancement centered within the T10-11 disc space with adjacent endplate marrow edema and enhancement. There is not significant endplate erosion. There is no significant edema or stranding of the surrounding paravertebral soft tissue. The alignment of the thoracic spine is normal. There are no compression fractures. The spinal cord demonstrates normal signal intensity on all sequences. No epidural collection. LUMBAR SPINE: Trace retrolisthesis of L5 on S1. Benign intraosseous hemangioma of T4 vertebral body. Vertebral bodies demonstrate normal signal intensity on all sequences. There are no compression fractures. The conus medullaris terminates at the level of L1-L2. The distal spinal cord signal intensity is normal. Multiple bilateral renal cysts. Multilevel posterior disc bulges at L3-L4, L4-L5, and L5-S1. Ligamentum flavum thickening at L2-L3, L3-L4, and L4-L5. Multilevel severe bilateral facet arthropathy with fluid distention involving L2-3, L3-4, L4-5, and L5-S1 levels, with associated mild multilevel enhancement STIR hyperintensity. There is resulting moderate L2-L3, moderate to severe L3-L4, and moderate to severe L4-L5 spinal canal stenosis. Multilevel mild to moderate bilateral foraminal stenosis at L3-L4, L4-L5, and L5-S1 levels. IMPRESSION: BRAIN: 1. No acute infarct. No extra-axial collection, acute hydrocephalus, mass effect, or midline shift. No abnormal parenchymal or leptomeningeal enhancement. 2. Loss of flow void of right petrosal segment ICA corresponding to known dissection (series 7 image 6-8). Known right cervical ICA dissection is better demonstrated on 12/17/2023 CTA. 5 mm fusiform dilation of right BRISEYDA A1. SPINE: 1. STIR hyperintense signal and enhancement centered within the T10-11 disc space with adjacent endplate marrow edema and enhancement. This is favored to represent Modic type I degenerative endplate change. If there is concern for infection, discitis osteomyelitis can have a similar appearance, however this is considered less likely. Correlate with lab/inflammatory markers. 2. No epidural collection at any level in the spine. No MR evidence of acute fracture or acute ligamentous injury at any level in the spine. Mild edema and enhancement about the spinous processes at the cervicothoracic junction is nonspecific, may be related to mild strain. 3. Limited evaluation of the lumbar spine due to significant motion degradation. Severe multilevel lumbar spondylosis with moderate L2-L3, moderate to severe L3-L4, and moderate to severe L4-L5 spinal canal stenosis. Assessment & Plan (07/04/2024 1:03 PM ANTENNA DESIGN ENGINEER): Failed LMBB. Assessment & Plan (04/23/2024 5:41 PM CDT): Failed prior lumbar medial branch blocks. Assessment & Plan (03/17/2024 1:49 PM CDT): Failed LMBB. Still with some axial pain. Assessment & Plan (03/05/2024 9:16 AM CDT): Patient is presenting today for b/l L3-L4, L5-S1 MBB #1. Pain is unchanged since last visit. Risks and benefits discussed. Patient consented. Procedure done without immediate complications. Plan: proceed with b/l L3-L4, L5-S1 MBB #2 if the current block will give significant pain relief. Assessment & Plan (01/30/2024 5:51 PM CDT): Reviewed his imaging. He has significant degenerative changes of the spine including stenosis and facet changes. He does also have this area of enhancement at T10- 11. Given negative biopsy most more likely to be degenerative change. He denies any specific radicular symptoms. However given his stenosis if he notes more symptoms in the leg would consider selective nerve root injection. At this time given he reports primarily axial back pain will proceed with lumbar medial branch blocks at bilateral L3-4 and L5-S1. 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 Sheth helps direct the INR. Assessment & Plan (05/21/2024 11:00 AM CDT): -Resume apixaban tomorrow. -continue Carvedilol 25 mg BID -tele monitor Assessment & Plan (05/21/2024 7:59 AM CDT): Resume apixaban tomorrow. Assessment & Plan (05/20/2024 11:36 AM CDT): Paroxysmal - currently in rate controlled afib - continue coreg - holding apixaban, continue heparin drip - telemetry Assessment & Plan (05/20/2024 12:56 AM CDT): - eliquis switched to heparin gtt - coreg Assessment & Plan (12/25/2023 5:29 PM CDT): Paroxysmal. Presently rate controlled and in SR. On Eliquis for anticoagulation. - Per neurosurgery, Eliquis once a week - Initiated risk/benefit discussion of restarting Eliquis (given frequent falls) with pt and . Pt wishes to restart it. Scheduled for 12/25 Assessment & Plan (11/05/2020 11:10 AM CDT): On warfarin Assessment & Plan (03/05/2019 11:37 AM CDT): Remains on the warfarin Elevated ferritin 07/17/2017 Systolic heart failure (CMS/HCC) 07/17/2017 Assessment & Plan (02/11/2021 11:51 AM CDT): We have him on SGLT-2i for added benefit Assessment & Plan (11/05/2020 11:12 AM CDT): Mild EF 48% BPPV (benign paroxysmal posi tional vertigo), unspecified laterality 05/23/2017 Left flank pain 01/17/2017 Epididymitis 01/03/2017 COPD (chronic obstructive pulmonary disease) Overview (10/01/2019): First real flare was 06/2017 Dr Carlito Haq directed this effort Assessment & Plan (11/05/2020 11:10 AM CDT): stable Assessment & Plan (03/05/2019 11:36 AM CDT): Remains quiescent Assessment & Plan (09/04/2018 10:33 AM ANTENNA DESIGN ENGINEER): COPD is unchanged. COPD information handout given. Patient to keep COPD diary. Counseled to avoid exposure to cigarette smoke. Medication changes per orders. I think we should d/c advair (not using anyway) Give a trial of anoro Assessment & Plan (02/22/2018 3:53 PM CDT): COPD is improving with lifestyle modifications. Discussed monitoring symptoms and use of quick-relief medications and contacting us early in the course of exacerbations. Warning signs of respiratory distress were reviewed with the patient. Counseled to avoid exposure to cigarette smoke. Continue current medications. Low back pain 05/25/2015 Assessment & Plan (12/07/2023 8:33 AM CDT): Will get XR. Extensive cardiac hx will avoid NSAIDs. Reports prior chiropractic treatment worsened his pain. Using APAP. Will refer to PT - wants to go to [facility]. Trial robaxin. Flexeril on med list but does not believe he is taking it. Pancreatitis 03/10/2015 Gallbladder disease 02/09/2015 Calcification of gallbladder 01/23/2015 Overview (09/04/2018): Remains present and was not removed. Assessment & Plan (03/05/2019 11:38 AM CDT): So far, no further sx and with that we will proceed to just observe History of aortic valve replacement 12/20/2014 Overview (10/01/2019): Had progressive . Bioprosthetic Murillo required-exploration and re-do 25 Magna Bovine Pericardial Aortic Valve 2010 Assessment & Plan (05/21/2024 11:01 AM CDT): Bioprosthetic aortic valve function reportedly stable. will follow up as an outpatient Assessment & Plan (05/21/2024 8:00 AM CDT): Bioprosthetic aortic valve function reportedly stable. We will follow up as an outpatient Assessment & Plan (05/20/2024 11:43 AM CDT): bioAVR x2 (2004 and 2010) - OSH TTE reportedly w/ EF 50%, AV prosthesis w/o abnormal gradients Assessment & Plan (05/20/2024 12:56 AM CDT): bioAVR x2 (2004 and 2010) - OSH TTE w/ EF 50%, AV prosthesis w/o abnormal gradients Assessment & Plan (11/05/2020 11:21 AM CDT): Has some gradient but no Assessment & Plan (10/01/2019 10:35 AM ANTENNA DESIGN ENGINEER): S2 makes a wonderfully crisp snap w/o any regurge Gastroesophageal reflux disease 09/17/2014 Tussive syncope 08/25/2014 Syncope and collapse 08/21/2014 Syncope 08/21/2014 Type 2 diabetes mellitus 07/10/2014 Overview (05/13/2021): Was on levemir but stopped 2015 then on trulicity so on metformin ALONE We had better control w/ Phillip -since he has been w/ Dr Stockton [phone] has been on Actose and metformin- Off actos due to CHF Off metformin due to diarrhea Farxiga started Farxiga change to Jardiance as neves of Farxiga $500 Assessment & Plan (05/21/2024 11:11 AM CDT): Home regimen: glipizide -A1C 5.6% at OSH 04/2024 -qid poc glucose -SSI Assessment & Plan (05/20/2024 11:04 AM CDT): Home regimen: glipizide - A1C 5.6% at OSH 04/2024 -qid poc glucose -SSI Assessment & Plan (05/20/2024 12:57 AM CDT): Home regimen: glipizide - A1C 5.6% at OSH 04/2024 - Bgs in 100s range, will follow on daily BMPs rather than POC for now Assessment & Plan (12/20/2023 9:28 AM CDT): Chronic. Maintains on glipizideDonavon at home with plan to hold these agents while hospitalized -Accuchecks ACHS with SSI, titrate to nomogram Assessment & Plan (11/10/2021 12:17 PM CDT): Today I reviewed quite a bit and finally he reports on nothing for DM2 We will get the A1C. He has not been able to curb his dietary intake so there is no way other than medication to control. He reports the super high cost of the SGLT2 and GLP1 are prohibitive. We will give glipizide ER 5mg daily and I gave plenty of warnings about hypoglycemia and need to check FBG daily Assessment & Plan (05/13/2021 12:29 PM CDT): We will change the farxiga to jardiance 25 and check the urine Assessment & Plan (11/05/2020 11:17 AM CDT): Due the A1C This is the first visit back in past year -I am somewhat worried about use of actos and chf as there is a boxed warning of this and CHF- -there is powerful data that farxiga would not only be better for the DM but also HELP the heart- Assessment & Plan (10/01/2019 10:30 AM ANTENNA DESIGN ENGINEER): His A1C has crept to 7.5% Admits to eating 4 plus meals a day on a long cruise which included the midnight chocolate buffet Assessment & Plan (03/05/2019 11:39 AM CDT): A1C is now 6.9% Assessment & Plan (12/04/2018 12:01 PM CDT): Diabetes is improving with treatment. Reminded to bring in blood sugar diary at next visit. Dietary recommendations for ADA diet. Regular aerobic exercise. Discussed sick day management. Discussed foot care. Reminded to get yearly retinal exam. Medication changes per orders. Diabetes will be reassessed in 3 months. We will see if jardiance is covered Assessment & Plan (09/04/2018 10:42 AM ANTENNA DESIGN ENGINEER): Diabetes is worsening. Continue current treatment regimen. Reminded to bring in blood sugar diary at next visit. Dietary recommendations for ADA diet. Regular aerobic exercise. Discussed foot care. Reminded to get yearly retinal exam. Diabetes will be reassessed in 3 months. Given his financial concerns my advice is to use food as [facility] Obesity with body mass index 30 or greater 07/09 Generalized anxiety disorder 07/09/2014 Assessment & Plan (10/01/2019 10:32 AM ANTENNA DESIGN ENGINEER): He gets along nicely w/ a low dose paxil which is safe for the QTc Reactive airway disease 07/09/2014 Benign essential hypertension 01/03/2011 Assessment & Plan (05/21/2024 11:01 AM CDT): -fairly well controlled. -continue amlodipine, coreg, doxazosin, and losartan Assessment & Plan (05/20/2024 11:40 AM CDT): -continue amlodipine, coreg, doxazosin, and losartan Assessment & Plan (05/20/2024 1:01 AM CDT): Amlodipine, coreg, doxazosin, losartan Assessment & Plan (12/20/2023 9:28 AM CDT): Chronic, presently normotensive. -continue amlodipine, coreg, losartan Assessment & Plan (11/05/2020 11:11 AM CDT): Better today Assessment & Plan (03/05/2019 11:37 AM CDT): Hypertension is improving with treatment. Continue current treatment regimen. Blood pressure will be reassessed in 3 months.Hypertension is improving with treatment. Hypercholesterolemia 01/03/2011 Assessment & Plan (05/21/2024 11:03 AM CDT): -Recent LDL 68, Trigs 67 and chol/HDL ratio of 2.0 -Continue atorvastatin 80 mg a day. Assessment & Plan (05/21/2024 7:59 AM CDT): Continue atorvastatin 80 mg a day. 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 Assessment & Plan (11/05/2020 11:12 AM CDT): Symptoms better Resolved Problems Problem Noted Date Diagnosed Date Resolved Date Influenza due to influenza A virus 07/27/2017 02/22/2018 Paroxysmal atrial fibrillation (CMS/HCC) 07/02/2017 09/04/2018 Overview (02/22/2018): Was on NOAC but switched to ASA 81 Disorder of lung 09/29/2014 02/22/2018 History of prosthetic heart valve 07/09/2014 12/04/2018 Hyperlipidemia 07/09/2014 02/11/2021 Assessment & Plan (11/05/2020 11:12 AM CDT): On the statin Aortic valve disorder 07/11/20112018 Difficulty breathing 07/07/2011 018 Diabetes mellitus 03/06/2011 12/04/2018 Hypertension 01/03/2011 10/01/2019 Assessment & Plan (12/04/2018 11:56 AM CDT): Hypertension is improving with treatment. Continue current treatment regimen. Blood pressure will be reassessed in 3 months. Encounters Date Type Department Care Team Description 09/11/2024 12:49 PM ANTENNA DESIGN ENGINEER - Present Emergency [facility] Emergency Department [address] [place] [address] Joseph Lucas MD 09/11/2024 Documentation [facility] Cardiology [address] [place] [address] Advanced Medicine 8th [place] [address] [place] [address] Rehan Sheth MD 09/11/2024 Telephone [facility] Cardiology [address] [place] [address] Advanced [facility] 8th [place] [address] [place] [address] Rehan Sheth MD Symptoms update 09/10/2024 12:25 PM ANTENNA DESIGN ENGINEER Lab [facility] ([facility]) [address] [place] [phone] Chronic heart failure with preserved ejection fraction (CMS/HCC) (HCC) 09/10/2024 11:15 AM ANTENNA DESIGN ENGINEER Office Visit [facility] Cardiology [address] [place] [address] Advanced Medicine 8th [place] [address] [place] [address] Rehan Sheth MD Chronic heart failure with preserved ejection fraction (CMS/HCC) (HCC) (Primary Dx); 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) 09/10/2024 Telephone [facility] Cardiology [address] [place] [address] Advanced Medicine 8th [place] [address] [place] [address] Rehan Sheth MD Cardiac Clearance request 09/10/2024 Telephone [facility] Cardiology [address]th [place] [address] [place] [address] Rehan Sheth MD Chest symptoms 09/09/2024 Telephone [facility] Cardiology [address] 8th [place] [address] [place] [phone] Rehan Sheth MD Samples/and report of ER eval 09/01/2024 Telephone [facility] Neurosurgery [address] [place] [address] Office [facility] [address] [place] [address] Clayton Robertson DO 08/26/2024 12:30 PM ANTENNA DESIGN ENGINEER Office Visit [facility] Neurosurgery [address] [place] [address] Office [facility] [address] [place] [phone] Clayton Robertson DO 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) 08/26/2024 11:32 AM ANTENNA DESIGN ENGINEER - 08/26/2024 11:59 PM ANTENNA DESIGN ENGINEER Hospital Encounter [facility] [address] [place] [address] [address] [place] [address] Lumbar spondylosis; Chronic bilateral low back pain, unspecified whether sciatica present Discharge Disposition: Discharge to home or self care 08/06/2024 Orders Only [facility] Neurosurgery [address] [place] [address] Office [facility] [address] [place] [phone] Clayton Robertson DO Lumbar spondylosis (Primary Dx); Chronic bilateral low back pain, unspecified whether sciatica present 07/04/2024 10:37 AM ANTENNA DESIGN ENGINEER - 07/04/2024 11:59 PM ANTENNA DESIGN ENGINEER Hospital Encounter [facility] [address] [place] [address] Aleksander Shankar MD 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); Sacroiliac joint pain; Lumbar spondylosis Discharge Disposition: Discharge to home or self care 06/26/2024 Orders Only [facility] Cardiology [facility] [facility] [address]th [place] [address] [place] [phone] Gima, Naila R., RN High risk medications (not anticoagulants) long-term use (Primary Dx) 06/19/2024 SHOP/CHAP Subsequent Outreach [facility] OP CASE MANAGEMENT [address] [facility] [place] [address] Rosalee Crowder, NICK 06/17/2024 11:50 AM CDT Lab [facility] ([facility]) [address] [place] [phone] Hypercholesterolemia 06/17/2024 11:15 AM CDT Office Visit [facility] Cardiology [address] 8th [place] [address] [place] [phone] Rehan Sheth MD Benign essential hypertension (Primary Dx); Acute on chronic systolic heart failure (HCC); History of aortic valve replacement; Hypercholesterolemia from Last 3 Months Immunizations Name Administration Dates Next Due Influenza, Quadrivalent, Hig h Dose, Preservative Free, Intrr 05/13/2021 Influenza, Quadrivalent, Rec ombinant, Egg Free, Preservative Free, Intramuscular 06/02/2020 Influenza, Trivalent, High D ose, Split, Preservative Free, Intramuscular 06/04/2019,07/02/2018,05/23/2017,07/17,05/13/2015,07/10/2014 Influenza, Trivalent, Preser vative Free, Intramuscular 07/05/2011 Influenza, Unspecified 05/20/2016 Pfizer SARS-CoV-2 Monovalent Vaccination (12+ Yrs) PURPLE 10/23/2020,09/25/2020 Pfizer Sars-Cov-2 Bivalent V accination (12+ YRS) 05/16/2022 Pneumococcal Conjugate PCV 13 06/04/2019 Pneumococcal Polysaccharide PPV23 07/10/2014 Td, Unspecified 05/05/2019 Tdap 03/08/2019,02/24/2019,03/19/2016 ZOSTER LIVE 03/19/2016 Surgical History Surgery Date Site/Laterality Comments NC LASER VAPORIZATION OF PROSTATE FOR URINE FLOW Laser Vaporization With Transurethral Resection Of Prostate - (Added by TW Conv) NC RPLCMT PROST AORTIC VALVE OPEN XCP HOMOGRF/STENT Aortic Valve Replacement - (Added by TW Conv) BIOPSY DEEP BONE 12/21/2023 N/A Medical History Medical History Date Comments Personal history of other di seases of the circulatory system History of hypertension - (A dded by TW Conv) Personal history of other en docrine, nutritional and metabolic disease History of diabetes mellitus - (Added by TW Conv) Other retention of urine Acute u rinary retention - (Added by TW Conv) Personal history of other di seases of the circulatory system History of aortic valve diso rder - Aortic Valve Disorder (Added by TW Conv) Low back pain Diabetes mellitus (HCC) Hypertension COPD (chronic obstructive pu lmonary disease) (HCC) Family History Medical History Relation Name Comments Cancer Father Diabetes Father Heart attack Father Family history of myocardial infarction - (Added by TW Conv) Heart disease Father Family history of cardiac disorder - (Added by TW Conv) Cancer Mother Family history of malignant neoplasm - (Added by TW Conv) Diabetes Mother Relation Name Status Comments Father Mother Social History Tobacco Use Types Packs/Day Years Used Date Smoking Tobacco: Never Smokeless Tobacco: Never Tobacco Cessation:Counseling Given: Not Answered [facility] Utilities Answer Date Recorded In the past 12 months has [employer], oil, or water [employer] threatened to shut off services in your home? No 06/09/2024 Social Connection and Isolat ion Panel [NHANES] Answer Date Recorded In a typical week, how many times do you talk on the phone with family, friends, or neighbors? More than three times a week 06/09/2024 How often do you get togethe r with friends or relatives? More than three times a week 06/09/2024 How often do you attend chur or restorationist services? More than 4 times per year 06/09/2024 Do you belong to any clubs o r organizations such as christianity groups, unions, fraternal or athletic groups, or school groups? Yes 06/09/2024 How often do you attend meet ings of the clubs or organizations you belong to? More than 4 times per year 06/09/2024 Are you , , di vorced, , never , or living with a partner? 06/09/2024 AUDIT-C Answer Date Recorded Q1: How often do you have a drink containing alcohol? Never 07/04/2024 Q2: How many drinks containi ng alcohol do you have on a typical day when you are drinking? Patient does not drink Q3: How often do you have si x or more drinks on one occasion? Never 07/04/2024 Overall Financial Resource Strain (CARDIA) Answe r Date Recorded How hard is it for you to pa y for the very basics like food, housing, medical care, and heating? Not hard at all 06/09/2024 PHQ-2 Answer Date Recorded PHQ-2 Total Score (If total score is 3 or more points, staff should administer the PHQ-9) 0 05/13/2021 [facility] - Occupational Stress Questionnaire Answer Date Recorded Do you feel stress - tense, restless, nervous, or anxious, or unable to sleep at night because your mind is troubled all the time - these days? Not at all 12/20/2023 Exercise Vital Sign Answer Date Recorde d On average, how many days pe r week do you engage in moderate to strenuous exercise (like a brisk walk)? 2 days 12/20/2023 On average, how many minutes do you engage in exercise at this level? 10 min 12/20/2023 Hunger Vital Sign Answer Date Recorded Within the past 12 months, y ou worried that your food would run out before you got the money to buy more. Never true 06/09/20 24 Within the past 12 months, t he food you bought just didn't last and you didn't have money to get more. Never true 06/09/2024 PRAPARE - Transportation Answer Date Re corded In the past 12 months, has l ack of transportation kept you from medical appointments or from getting medications? No 05/21 In the past 12 months, has l ack of transportation kept you from meetings, work, or from getting things needed for daily living? No 06/09/2024 Housing Stability Vital Sign Answer Deangelo e Recorded In the last 12 months, was t here a time when you were not able to pay the mortgage or rent on time? No 01/01/2024 In the last 12 months, how many places have you lived? 1 01/01/2024 In the last 12 months, was t here a time when you did not have a steady place to sleep or slept in a jail (including now)? No 01/01/2024 Housing Stability Vital Sign Answer Deangelo e Recorded In the last 12 months, was t here a time when you were not able to pay the mortgage or rent on time? No 06/09/2024 In the past 12 months, how m any times have you moved where you were living? 0 06/09/2024 At any time in the past 12 m [place], were you homeless or living in a jail (including now)? No 06/09/2024 Personal Safety Answer Date Recorded Have you ever been in or are you currently in a harmful physical or emotional relationship or is someone making you feel afraid or unsafe? Denies 09/11/2024 Sex and Gender Information Value Date Recorded Sex Assigned at Not on file Legal Sex Male 8:23 PM ANTENNA DESIGN ENGINEER Gender Identity Not on file Sexual Orientation Not on file Obstetrics History Last Filed Vital Signs Vital Sign Reading Time Taken Comments Blood Pressure 140/57 09/11/2024 2:34 PM ANTENNA DESIGN ENGINEER Pulse 67 09/11/2024 2:34 PM ANTENNA DESIGN ENGINEER Temperature 36.4 ??C (97.6 ??F) 09/11/2024 2:34 PM CS T Respiratory Rate 20 09/11/2024 2:34 PM ANTENNA DESIGN ENGINEER Oxygen Saturation 97% 09/11/2024 2:34 PM ANTENNA DESIGN ENGINEER Inhaled Oxygen Concentration - - Weight 104.3 kg (229 lb 15 oz) 09/11/2024 10:34 AM ANTENNA DESIGN ENGINEER Height 182.9 cm (6' 0.01 ) 09/11/2024 10:[address] Body Mass Index 31.18 09/11/2024 10:34 AM ANTENNA DESIGN ENGINEER Plan of Treatment Health Maintenance Due Date Last Done Comments Albumin Creatinine Ratio, Urine 1940 Hepatitis B Screening 1958 Zoster Vaccine (2 of 3) 05/14/2016 03/19/2016 Dilated Eye Exam 05/05/2020 05/05/2019 Foot Exam 11/05/2021 11/05/2020, 06/04/2019 Well Visit 65+ 11/05/2021 11/05/2020, 06/04/2019 Depression Screening 05/13/2022 05/13/2021, 11/05/2020, 06/04/2019, Additional history exists Covid-19 Vaccine (2023-2 5 season) 2024 05/16/2022, 10/23/2020, 09/25/2020 Influenza Vaccine (#1) 2024 , 06/02/2020, 06/04/2019, Additional history exists Hemoglobin A1C 12/06/2024 06/07/2024, 03/20, 11/10/2021, Additional history exists Lipid Panel 06/07/2025 06/07/2024, 1008/2023, 11/05/2020, Additional history exists Fall Risk Assessment 06/09/2025 06/09/2024, 11/05/2020, 06/04/2019 eGFR 09/11/2025 09/11/2024, 08/21, 07/30/2024, Additional history exists DTaP/Tdap/Td Vaccine (5 - Td or Tdap) 05/05/2029 05/05/2019, 03/08/2019, 02/24/2019, Additional history exists Pneumococcal vaccine 65+ Completed 06/04/2019, 06/21 Goals Goal Patient Goal Type Associated Problems Recent Progress Patient-Stated? Author CCM Chronic Pain Care Plan Chronic Care Management Improving( 10:49 AM ANTENNA DESIGN ENGINEER) Nenita Sanchez, TIM Note: Problem: Chronic Pain Goals: 1. Minimize further functional decline 2. Maximize quality of life 3. Control pain Strategies: - Activity/exercise program recommendation - Conservative stepwise pain medicine strategy with multi-disciplinary approach - Recommend healthy lifestyle strategies and compensatory methods as needed Medical Devices Implanted Type Area Record Systems Analyst Device Identifier Shelf Expiration Date Model / Serial / Lot [employer] Angio-Seal Vip [place]-Plus 8fr .038in 70cm Hemostatic Latex Free [id number] - [id number] - [id number] Implanted:Qty : 1 on 05/20/2024 by Papo Rascon MD at [facility] Collagen Right: Common Femoral Artery [employer] 12/10/2024 [id number] / [id number] Prosthetic Valve Prosthetic Valve Heart Description:Heart Valve Medtronic Card Vasc Surgery 4.0 X 12mm [place] Rx Coronary Stent [id number] - [id number] Implanted:Qty : 1 on 05/20/2024 by Vitor Pedroza MD at [facility] Stent N/A: Circumflex Coronary Artery Medtronic Card Vas Surgery 01/11/2027 [id number] / [id number] / [id number] Medtronic [facility] Surgery 4.0 X 12mm [place] Rx Coronary Stent [id number] - [id number] - [id number] Implanted:Qty : 1 on 05/20/2024 by Vitor Pedroza MD at [facility] Stent Left: Anterior Descending Cornary Artery Medtronic Card [facility] Surgery 11/14/2026 [id number] / [id number] / [id number] Procedures * The patient is currently admitted. The information in this section might not be complete until the patient is discharged. Procedure Name Priority Date/Time Associated Diagnosis Comments PRO B-TYPE NATRIURETIC PEPTIDE STAT 09/11/2024 1:30 PM ANTENNA DESIGN ENGINEER TROPONIN I HIGH-SENSITIVITY 2-HOUR Timed 09/11/2024 1:30 PM ANTENNA DESIGN ENGINEER XR CHEST PA LATERAL 2 VIEWS ED 09/11/2024 11:13 AM ANTENNA DESIGN ENGINEER EGFR STAT 09/11/2024 11:03 AM ANTENNA DESIGN ENGINEER DIFFERENTIAL AUTO STAT 09/11/2024 11: 03 AM ANTENNA DESIGN ENGINEER TROPONIN I HIGH-SENSITIVITY SERIES (BASELINE, 2HR, 4HR, 6HR) STAT 09/11/2024 11:03 AM ANTENNA DESIGN ENGINEER COMPREHENSIVE METABOLIC PANEL STAT 09/11/2024 11:03 AM ANTENNA DESIGN ENGINEER CBC WITH AUTO DIFFERENTIAL STAT 09/11/2024 11:03 AM ANTENNA DESIGN ENGINEER ECG 12-LEAD STAT 09/11/2024 10:52 AM ANTENNA DESIGN ENGINEER POCT GLUCOSE DEVICE Routine 09/11/2024 1 0:48 AM ANTENNA DESIGN ENGINEER EGFR Routine 09/10/2024 12:26 PM ANTENNA DESIGN ENGINEER Chronic heart failure with preserved ejection fraction (CMS/HCC) (HCC) PRO B-TYPE NATRIURETIC PEPTIDE Routine 09/10/2024 12:26 PM ANTENNA DESIGN ENGINEER Chronic heart failure with preserved ejection fraction (CMS/HCC) (HCC) BASIC METABOLIC PANEL Routine 09/10/2024 12:26 PM ANTENNA DESIGN ENGINEER Chronic heart failure with preserved ejection fraction (CMS/HCC) (HCC) ECG 12-LEAD Routine 09/10/2024 11:33 AM ANTENNA DESIGN ENGINEER Chronic heart failure with preserved ejection fraction (CMS/HCC) (HCC) XR SCOLIOSIS AP LAT Schedule Routine, Read Routine (OP Routine) 08/26/2024 11:42 AM ANTENNA DESIGN ENGINEER Lumbar spondylosis Chronic bilateral low back pain, unspecified whether sciatica present BASIC METABOLIC PANEL Routine 07/30/2024 12:37 PM ANTENNA DESIGN ENGINEER High risk medications (not anticoagulants) long-term use BASIC METABOLIC PANEL Routine 07/16/2024 11:34 AM ANTENNA DESIGN ENGINEER High risk medications (not anticoagulants) long-term use BASIC METABOLIC PANEL Routine 06/24/2024 10:29 AM ANTENNA DESIGN ENGINEER Acute on chronic systolic heart failure (HCC) LIPOPROTEIN A (LPA) Routine 06/17/2024 1 1:51 AM CDT Hypercholesterolem ia HEMOGLOBIN A1C Routine 06/07/2024 8:38 AM CDT LIPID PANEL Routine 06/07/2024 8:38 AM CDT DIABETES FOOT EXAM Routine 11/05/2020 DIABETES EYE EXAM Routine 05/05/2019 from Last 3 Months or Most Recently Relevant to Health Maintenance Results * Troponin I high-sensitivity 2-hour (09/11/2024 1:30 PM ANTENNA DESIGN ENGINEER) Trop I hs 14 <=35 ng/L Comment: Interpretive Data For further [facility] resources including the diagnostic algorithm and an aid in interpretation, copy and paste this link: [email or web address] Current Interpretive Data last revised 2020. Trop I hs delta 0 ng/L CERNER BJ Trop I hs interp Insignificant CERNER BJ H Blood 09/11/2024 1:30 PM ANTENNA DESIGN ENGINEER 09/11/2024 2:03 PM ANTENNA DESIGN ENGINEER us Ricki Ramirez MD LAB BLOOD ORDERABLES Final Result [facility] Department [place] [address] * (ABNORMAL) Pro B-type natriuretic peptide (09/11/2024 1:30 PM ANTENNA DESIGN ENGINEER) Pathologist [facility] NT-proBNP 1,193(H) <=450 pg/mL Comment: Interpretive Comments: A. Dyspnea in Acute Care Setting All Ages: ?< 300 pg/ml, acute heart failure unlikely. < 50 yrs: ?300 - 450 pg/ml, further investigation warranted. ? > 450 pg/ml, acute heart failure likely. 50 - 74 yrs: ? 300 - 900 pg/ml, further investigation warranted. ? > 900 pg/ml, acute heart failure likely . > or = 75 yrs: ? 450 - 1800 pg/ml, further investigation warranted. ? > 1800 pg/ml, acute heart failure likely. B. Non-acute Setting < 75 yrs ? < 125 pg/ml, rules out heart failure. ? > or = 125 pg/ml, further investigation warranted. > or = 75 yrs ?< 450 pg/ml, rules out heart failure. ? > or = 450 pg/ml, further investigation warranted. - Knowledge of each individual patient's NT-proBNP range may be more useful than using similar cut-points for every patient. Please note that marked elevations in NT-proBNP levels may be observed in state other than Left Ventricular Congestive Failure, including: acute coronary syndromes, right heart strain/failure (including pulmonary embolism and cor pulmonale), critical illness, renal failure, as well as advanced age. - References: 1. Heriberto HANNA et.al. Eur Heart J. 2006:27:330-337. 2. Cortez LEIVA, Jonathon CAMPOS. J. AM Renato Cardiol: Cardiovasc Imag. 2009;2: 216- 225. Interpretive Data Last Revised Date: 2018. Blood 09/11/2024 1:30 PM ANTENNA DESIGN ENGINEER 09/11/2024 2:04 PM ANTENNA DESIGN ENGINEER us [address] De Leon MD LAB BLOOD ORDERABLES Final Result Performing Organization Address City/State/[facility] Co de Phone Number [facility] [place] [address] * XR Chest Pa Lateral 2 Views (09/11/2024 11:13 AM ANTENNA DESIGN ENGINEER) Anatomical Region Laterality Modality Body, Chest N/A Computed Radiogr aphy 09/11/2024 11:4 4 AM ANTENNA DESIGN ENGINEER Impressions 09/11/2024 11:44 AM ANTENNA DESIGN ENGINEER Comparison to 12/21/2023. 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 Heart and mediastinum are unchanged. There is no pneumothorax or pleural effusion. Small lung volumes with scarring in the left midlung that is similar to the prior CT. No new focal pulmonary opacity. Electronically signed by: Eric Balbuena M.D. Narrative 09/11/2024 11:44 AM ANTENNA DESIGN ENGINEER EXAMINATION: 2 view chest radiograph Procedure Note Eric Balbuena MD - 09/11/2024 EXAMINATION: 2 view chest radiograph IMPRESSION: Comparison to 12/21/2023. 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 Heart and mediastinum are unchanged. There is no pneumothorax or pleural effusion. Small lung volumes with scarring in the left midlung that is similar to the prior CT. No new focal pulmonary opacity. Electronically signed by: Eric Balbuena M.D. us Joseph Lucas MD IMG XR PROCEDURES Final R esult * Troponin I high-sensitivity series (baseline, 2hr, 4hr, 6hr) (09/11/2024 11:03 AM ANTENNA DESIGN ENGINEER) Pathologist [facility] Trop I hs 14 <=35 ng/L Comment: Interpretive Data For further [facility] resources including the diagnostic algorithm and an aid in interpretation, copy and paste this link: [email or web address] Current Interpretive Data last revised 2020. Blood 09/11/2024 11:0 3 AM ANTENNA DESIGN ENGINEER 09/11/2024 11:20 AM ANTENNA DESIGN ENGINEER us Joseph Lucas MD LAB BLOOD ORDERABLES Shanna l Result [facility] [place] [address] * (ABNORMAL) eGFR (09/11/2024 11:03 AM ANTENNA DESIGN ENGINEER) Pathologist [facility] eGFR 49(L) >=60 mL/min/1. 73 m2 Comment: Interpretive Data Reference Interval Normal ?>/= 90 mL/min/1.73m2 Mildly decreased* ? 60 - 89 mL/min/1.73m2 Mildly to moderately decreased ?45 - 59 mL/min/1.73m2 Moderately to severely decreased ??30 - 44 mL/min/1.73m2 Severely decreased ?15 - 29 mL/min/1.73m2 Kidney Failure ?< 15 ??mL/min/1.73m2 *Relative to young adult level Estimated glomerular filtration rate is determined by the 2020 CKD-EPI equation recommended by the National Kidney Foundation (A Unifying Approach to GFR Estimation: Recommendations of the NKF-ASK Task Force on Reassessing the Inclusion of Race in Diagnosing Kidney Disease, JASN 2020). The CKD-EPI equation should not be used for patients with unstable renal function and has not been validated in children and those over 70. Current interpretive data was last reviewed 2021. Blood 09/11/2024 11:0 3 AM ANTENNA DESIGN ENGINEER 09/11/2024 11:20 AM ANTENNA DESIGN ENGINEER Joseph Lucas MD LAB BLOOD ORDERABLES Shanna orozco Result [facility] [place] [address] * Differential, auto (09/11/2024 11:03 AM ANTENNA DESIGN ENGINEER) Neutrophil abs 4.9 1.5 - 6.5 K/cumm Imm gran abs 0.0 0.0 - 0.1 K/cumm [facility] Lymphocyte abs 1.4 0.8 - 3.3 K/cumm [facility] Monocyte abs 0.7 0.2 - 0.8 K/cumm [facility] Eosinophil abs 0.1 0.0 - 0.5 K/cumm [facility] Basophil abs 0.0 0.0 - 0.1 K/cumm [facility] Neutrophil pct 67.9 % [facility] Comment: Interpretive Data Percent cell count reference ranges are not reported, since discordance with absolute values may lead to misinterpretation of CBC data. Current Interpretive Data was last revised on 2017. Imm gran pct 0.4 % [facility] Comment: Interpretive Data Percent cell count reference ranges are not reported, since discordance with absolute values may lead to misinterpretation of CBC data. Current Interpretive Data was last revised on 2017. Lymphocyte pct 19.8 % [facility] Comment: Interpretive Data Percent cell count reference ranges are not reported, since discordance with absolute values may lead to misinterpretation of CBC data. Current Interpretive Data was last revised on 2017. Monocyte pct 9.6 % [facility] Comment: Interpretive Data Percent cell count reference ranges are not reported, since discordance with absolute values may lead to misinterpretation of CBC data. Current Interpretive Data was last revised on 2017. Eosinophil pct 1.9 % [facility] Comment: Interpretive Data Percent cell count reference ranges are not reported, since discordance with absolute values may lead to misinterpretation of CBC data. Current Interpretive Data was last revised on 2017. Basophil pct 0.4 % [facility] Comment: Interpretive Data Percent cell count reference ranges are not reported, since discordance with absolute values may lead to misinterpretation of CBC data. Current Interpretive Data was last revised on 2017. Blood 09/11/2024 11:0 3 AM ANTENNA DESIGN ENGINEER 09/11/2024 11:20 AM ANTENNA DESIGN ENGINEER Joseph Lucas MD LAB BLOOD ORDERABLES Shanna orozco Result [facility] [place] [address] * (ABNORMAL) CBC with auto differential (09/11/2024 11:03 AM ANTENNA DESIGN ENGINEER) WBC 7.3 3.8 - 9.9 K/cumm Hgb 11.0(L) 13.0 - 17.5 g/dL [facility] Hct 33.2(L) 38.9 - 50.3 % [facility] Plt 175 150 - 400 K/cumm [facility] MPV 10.6 9.1 - 12.3 fL [facility] RBC 3.51(L) 4.30 - 5.80 M/cumm [facility] MCV 94.6 81.3 - 96.4 fL [facility] MCH 31.3 27.1 - 33.3 pg [facility] MCHC 33.1 32.3 - 35.7 g/dL [facility] RDW CV 14.9 11.1 - 14.9 % [facility] RDW SD 51.4(H) 35.7 - 48.1 fL [facility] NRBC abs 0.00 0.00 - 0.01 K/cumm [facility] Blood (Blood, Venous) 09/11/2024 11:03 AM ANTENNA DESIGN ENGINEER 09/11/2024 11:20 AM ANTENNA DESIGN ENGINEER us Joseph Lucas MD LAB BLOOD ORDERABLES Shanna orozco Result [facility] [place] [address] * (ABNORMAL) Comprehensive metabolic panel (09/11/2024 11:03 AM ANTENNA DESIGN ENGINEER) Sodium 142 135 - 145 mmol/L Potassium, pl 3.6 3.3 - 4.9 mmol/L [facility] Chloride 102 97 - 110 mmol/L [facility] CO2 28 22 - 32 mmol/L [facility] Anion gap 12 2 - 15 mmol/L [facility] BUN 33(H) 6 - 25 mg/dL [facility] Creatinine 1.40(H) 0.80 - 1.30 mg/dL [facility] Glucose 114 70 - 199 mg/dL [facility] Comment: Interpretive Data Fasting glucose >/= 126 mg/dl is diagnostic for diabetes. ?? Fasting is defined as no caloric intake for at least 8 hours. Fasting glucose between 100 mg/dl to 125 mg/dl is diagnostic of prediabetes. In a patient with classic symptoms of hyperglycemia or hyperglycemic crisis, a random glucose >/= 200 mg/dl is diagnostic for diabetes. In the absence of unequivocal hyperglycemia, results should be confirmed by repeat testing. The classification and Diagnosis of Diabetes Diabetes Care 202; 46: S19-S40. Current interpretive data was last revised 2022. Calcium 8.9 8.5 - 10.3 mg/dL [facility] Bilirubin, total 0.4 0.1 - 1.2 mg/dL [facility] Protein, pl 6.9 6.5 - 8.5 g/dL [facility] Albumin 3.9 3.5 - 5.0 g/dL [facility] Alk phos 43 40 - 130 Units/L [facility] ALT 13 7 - 55 Units/L [facility] AST 24 10 - 50 Units/L [facility] Blood 09/11/2024 11:0 3 AM ANTENNA DESIGN ENGINEER 09/11/2024 11:20 AM ANTENNA DESIGN ENGINEER us Joseph Lucas MD LAB BLOOD ORDERABLES Shanna orozco Result [facility] [place] [address] * ECG 12-LEAD (09/11/2024 10:52 AM ANTENNA DESIGN ENGINEER) Narrative [facility] - 09/11/2024 10:52 AM ANTENNA DESIGN ENGINEER Hermilo Linares MD ? 09/11/2024 10:55 AM ECG 12 lead Date/Time: 09/11/2024 10:52 AM Performed by: Hermilo Linares MD Authorized by: Ricki Ramirez MD ?? Rate: ??ECG rate: ??77 ??ECG rate assessment: normal ?? Rhythm: ??Rhythm: sinus rhythm ?? QRS: ??QRS axis: ??Left ??QRS intervals: ??Wide Conduction: ??Conduction: abnormal ?Abnormal conduction: 1st degree ?? ST segments: ??ST segments: ??Normal Previous ECG: ??Previous ECG: ??Compared to current ??Similarity: ??No change Interpretation: ??Interpretation: No significant change ?? Recommended Follow-up: ??Recommended follow up: further workup in the ED ?? Procedure Note Hermilo Linares MD - 09/11/2024 10:52 AM CST Procedure ECG 12 lead Date/Time: 09/11/2024 10:52 AM Performed by: Hermilo Linares MD Authorized by: Ricki Ramirez MD Rate: ECG rate: 77 ECG rate assessment: normal Rhythm: Rhythm: sinus rhythm QRS: QRS axis: Left QRS intervals: Wide Conduction: Conduction: abnormal Abnormal conduction: 1st degree ST segments: ST segments: Normal Previous ECG: Previous ECG: Compared to current Similarity: No change Interpretation: Interpretation: No significant change Recommended Follow-up: Recommended follow up: further workup in the ED Hermilo Linares MD 09/11/24 1055 us Joseph Lucas MD ECG ORDERABLES Final Res ult [facility] * POCT glucose (09/11/2024 10:48 AM ANTENNA DESIGN ENGINEER) Glucose, POC 112 70 - 199 mg/dL Blood 09/11/2024 10:4 8 AM ANTENNA DESIGN ENGINEER 09/11/2024 10:48 AM ANTENNA DESIGN ENGINEER Notinfile Unknown LAB POCT ORDERABLES - DEVICE F inal Result Performing Organization Address [facility] Co de Phone Number [facility] [place] [address] * (ABNORMAL) eGFR (09/10/2024 12:26 PM ANTENNA DESIGN ENGINEER) eGFR 54(L) >=60 mL/min/1. 73 m2 Comment: Interpretive Data Reference Interval Normal ?>/= 90 mL/min/1.73m2 Mildly decreased* ? 60 - 89 mL/min/1.73m2 Mildly to moderately decreased ?45 - 59 mL/min/1.73m2 Moderately to severely decreased ??30 - 44 mL/min/1.73m2 Severely decreased ?15 - 29 mL/min/1.73m2 Kidney Failure ?< 15 ??mL/min/1.73m2 *Relative to young adult level Estimated glomerular filtration rate is determined by the 2020 CKD-EPI equation recommended by the National Kidney Foundation (A Unifying Approach to GFR Estimation: Recommendations of the NKF-ASK Task Force on Reassessing the Inclusion of Race in Diagnosing Kidney Disease, JASN 2020). The CKD-EPI equation should not be used for patients with unstable renal function and has not been validated in children and those over 70. Current interpretive data was last reviewed 2021. Blood 09/10/2024 12:2 6 PM ANTENNA DESIGN ENGINEER 09/10/2024 1:37 PM ANTENNA DESIGN ENGINEER us Rehan Sheth MD LAB BLOOD ORDERABLES F inal Result [facility] [place] [address] * (ABNORMAL) Pro B-type natriuretic peptide (09/10/2024 12:26 PM ANTENNA DESIGN ENGINEER) NT-proBNP 2,273(H) <=450 pg/mL Comment: Interpretive Comments: A. Dyspnea in Acute Care Setting All Ages: ?< 300 pg/ml, acute heart failure unlikely. < 50 yrs: ?300 - 450 pg/ml, further investigation warranted. ? > 450 pg/ml, acute heart failure likely. 50 - 74 yrs: ? 300 - 900 pg/ml, further investigation warranted. ? > 900 pg/ml, acute heart failure likely . > or = 75 yrs: ? 450 - 1800 pg/ml, further investigation warranted. ? > 1800 pg/ml, acute heart failure likely. B. Non-acute Setting < 75 yrs ? < 125 pg/ml, rules out heart failure. ? > or = 125 pg/ml, further investigation warranted. > or = 75 yrs ?< 450 pg/ml, rules out heart failure. ? > or = 450 pg/ml, further investigation warranted. - Knowledge of each individual patient's NT-proBNP range may be more useful than using similar cut-points for every patient. Please note that marked elevations in NT-proBNP levels may be observed in state other than Left Ventricular Congestive Failure, including: acute coronary syndromes, right heart strain/failure (including pulmonary embolism and cor pulmonale), critical illness, renal failure, as well as advanced age. - References: 1. Heriberto HANNA et.al. Eur Heart J. 2006:27:330-337. 2. Cortez LEIVA, Jonathon CAMPOS. J. AM Renato Cardiol: Cardiovasc Imag. 2009;2: 216- 225. Interpretive Data Last Revised Date: 2018. Blood 09/10/2024 12:2 6 PM ANTENNA DESIGN ENGINEER 09/10/2024 1:32 PM ANTENNA DESIGN ENGINEER us Rehan Sheth MD LAB BLOOD ORDERABLES F inal Result [facility] [place] [address] * (ABNORMAL) Basic metabolic panel (09/10/2024 12:26 PM ANTENNA DESIGN ENGINEER) Sodium 142 135 - 145 mmol/L Potassium, pl 3.9 3.3 - 4.9 mmol/L [facility] Chloride 104 97 - 110 mmol/L [facility] CO2 28 22 - 32 mmol/L [facility] Anion gap 10 2 - 15 mmol/L [facility] BUN 31(H) 6 - 25 mg/dL [facility] Creatinine 1.29 0.80 - 1.30 mg/dL [facility] Glucose 126 70 - 199 mg/dL [facility] Comment: Interpretive Data Fasting glucose >/= 126 mg/dl is diagnostic for diabetes. ?? Fasting is defined as no caloric intake for at least 8 hours. Fasting glucose between 100 mg/dl to 125 mg/dl is diagnostic of prediabetes. In a patient with classic symptoms of hyperglycemia or hyperglycemic crisis, a random glucose >/= 200 mg/dl is diagnostic for diabetes. In the absence of unequivocal hyperglycemia, results should be confirmed by repeat testing. The classification and Diagnosis of Diabetes Diabetes Care 2021; 46: S19-S40. Current interpretive data was last revised 2022. Calcium 9.2 8.5 - 10.3 mg/dL [facility] Blood 09/10/2024 12:2 6 PM ANTENNA DESIGN ENGINEER 09/10/2024 1:32 PM ANTENNA DESIGN ENGINEER Rehan Sheth MD LAB BLOOD ORDERABLES F inal Result [facility] [place] [address] * ECG 12 lead (09/10/2024 11:33 AM ANTENNA DESIGN ENGINEER) Rehan Sheth MD ECG ORDERABLES Edited Result - Final * XR Scoliosis Ap and Lateral (08/26/2024 11:42 AM ANTENNA DESIGN ENGINEER) Anatomical Region Laterality Modality Spine N/A Computed Radiogr aphy 08/26/2024 12:3 0 PM ANTENNA DESIGN ENGINEER Impressions 08/26/2024 12:30 PM ANTENNA DESIGN ENGINEER 1. ??Mild thoracolumbar curvature with leftward coronal and anterior sagittal imbalance Electronically signed by: Mehran Sotomayor MD Narrative 08/26/2024 12:30 PM ANTENNA DESIGN ENGINEER EXAMINATION: XR SCOLIOSIS AP AND LATERAL HISTORY: ??Lumbar spondylosis FINDINGS: Standing frontal and lateral radiographs of the entire spine and lower extremities were obtained using the EOS system. ??Comparison is made to prior radiographs for 1924. There is mild dextrocurvature of the upper thoracic spine and levocurvature of the lower thoracic spine with apex at T9-T10. ??There is mild leftward (negative) coronal imbalance and moderate anterior (positive) sagittal imbalance. ??No significant pelvic obliquity. Diffuse degenerative disc disease is noted. ??Lower lumbar facet arthropathy is also noted. ??There is grade 1 anterolisthesis of L3 on L4 and L4 on L5. ??No acute compression fracture is identified. Atherosclerotic calcifications are present. Procedure Note Linda Sotomayor MD - 08/26/2024 EXAMINATION: XR SCOLIOSIS AP AND LATERAL HISTORY: Lumbar spondylosis FINDINGS: Standing frontal and lateral radiographs of the entire spine and lower extremities were obtained using the EOS system. Comparison is made to prior radiographs for 1923. There is mild dextrocurvature of the upper thoracic spine and levocurvature of the lower thoracic spine with apex at T9-T10. There is mild leftward (negative) coronal imbalance and moderate anterior (positive) sagittal imbalance. No significant pelvic obliquity. Diffuse degenerative disc disease is noted. Lower lumbar facet arthropathy is also noted. There is grade 1 anterolisthesis of L3 on L4 and L4 on L5. No acute compression fracture is identified. Atherosclerotic calcifications are present. IMPRESSION: 1. Mild thoracolumbar curvature with leftward coronal and anterior sagittal imbalance Electronically signed by: Mehran Sotomayor MD Clayton Robertson DO IMG XR PROCEDURES Final Result * (ABNORMAL) Basic metabolic panel (07/30/2024 12:37 PM ANTENNA DESIGN ENGINEER) Pathologist [facility] Glucose 143(H) 65 - 99 mg/dL [facility] Comment: ? Fasting reference interval For someone without known diabetes, a glucose value >125 mg/dL indicates that they may have diabetes and this should be confirmed with a follow-up test. BUN 22 7 - 25 mg/dL [facility] Creatinine 1.04 0.70 - 1.22 mg/dL [facility] eGFR 71 > OR = 60 mL/min/1.7 3m2 [facility] BUN/creat ratio SEE NOTE: 6 22 (calc) [facility] Comment: ?? Not Reported: BUN and Creatinine are within ?? reference range. ? Sodium 141 135 - 146 mmol/L [facility] Potassium, pl 4.2 3.5 - 5.3 mmol/L [facility] Chloride 103 98 - 110 mmol/L [facility] CO2 30 20 - 32 mmol/L [facility] Calcium 8.9 8.6 - 10.3 mg/dL [facility] Blood 07/30/2024 12:3 7 PM ANTENNA DESIGN ENGINEER 07/30/2024 12:38 PM ANTENNA DESIGN ENGINEER Rehan Sheth MD LAB BLOOD ORDERABLES F inal Result Performing Organization Address [facility] Co de Phone Number [facility] [address] [place] [address] * (ABNORMAL) Basic metabolic panel (07/16/2024 11:34 AM ANTENNA DESIGN ENGINEER) Pathologist [facility] Glucose 115 65 - 139 mg/dL [facility] Comment: ? Non-fasting reference interval BUN 29(H) 7 - 25 mg/dL [facility] Creatinine 1.23(H) 0.70 - 1.22 mg/dL [facility] eGFR 58(L) > OR = 60 mL/min/1.7 3m2 [facility] BUN/creat ratio 24(H) 6 - 22 (calc) [facility] Sodium 138 135 - 146 mmol/L [facility] Potassium, pl 4.4 3.5 - 5.3 mmol/L [facility] Chloride 101 98 - 110 mmol/L [facility] CO2 27 20 - 32 mmol/L [facility] Calcium 8.7 8.6 - 10.3 mg/dL [facility] Blood 07/16/2024 11:3 4 AM ANTENNA DESIGN ENGINEER 07/16/2024 11:34 AM ANTENNA DESIGN ENGINEER Narrative [facility] - 07/16/2024 10:30 PM ANTENNA DESIGN ENGINEER INSURANCE VERIFIED FASTING:NO FASTING: NO Rehan Sheth MD LAB BLOOD ORDERABLES F inal Result Performing Organization Address [facility]/ZIP Co de Phone Number [facility] [address] [place] [address] * (ABNORMAL) Basic metabolic panel (06/24/2024 10:29 AM ANTENNA DESIGN ENGINEER) Glucose 163(H) 65 - 99 mg/dL [facility] Comment: ? Fasting reference interval For someone without known diabetes, a glucose value >125 mg/dL indicates that they may have diabetes and this should be confirmed with a follow-up test. BUN 23 7 - 25 mg/dL [facility] Creatinine 1.03 0.70 - 1.22 mg/dL [facility] eGFR 72 > OR = 60 mL/min/1.7 3m2 [facility] BUN/creat ratio SEE NOTE: 6 - 22 (calc) [facility] Comment: ?? Not Reported: BUN and Creatinine are within ?? reference range. ? Sodium 139 135 - 146 mmol/L [facility] Potassium, pl 3.9 3.5 - 5.3 mmol/L [facility] Chloride 104 98 - 110 mmol/L [facility] CO2 27 20 - 32 mmol/L [facility] Calcium 8.6 8.6 - 10.3 mg/dL [facility] Blood 06/24/2024 10:2 9 AM ANTENNA DESIGN ENGINEER 06/24/2024 10:30 AM ANTENNA DESIGN ENGINEER Rehan Sheth MD LAB BLOOD ORDERABLES F inal Result [facility] [address] [place] [address] * Lipoprotein a (LPa) (06/17/2024 11:51 AM CDT) Lipoprotein A 24 <75 nmol/L [facility] Comment: ADDITIONAL INFORMATION Please notice that Lp(a) values are reported in molar units (nmol/L). ??These units are recommended by professional society guidelines and expert opinion statements. ??Measured results and risk thresholds are higher than those generated using mass units (mg/dL). Cardiovascular risk increases starting at 75 nmol/L. Lp(a) >=125 nmol/L is considered a risk enhancing factor by the [place] [employer]. This test has been modified from the host and hostess's instructions. Its performance characteristics were determined by [facility] in a manner consistent with CLIA requirements. This test has not been cleared or approved by the U.S. Food and Drug Administration. Test Performed by: [place] [address] Audio Visual Manager: Harvey Torres Ph.D.; CLIA# [id number] Blood 06/17/2024 11:5 1 AM CDT 06/17/2024 12:59 PM CDT Rehan Sheth MD LAB BLOOD ORDERABLES F inal Result Performing Organization Address [facility] Co de Phone Number [facility] [place] [address] [facility] * (ABNORMAL) Hemoglobin A1c (06/07/2024 8:38 AM CDT) Hgb A1C 6.1(H) 4.0 - 5.6 % Estimated Average Glucose 128 mg/dL [facility] Comment: The ADA recommends reporting an estimated Average Glucose (eAG) with all Hemoglobin A1c results using the equation derived from a study of 507 normal and diabetic adults. ??Minority populations were underrepresented and children were not included. ?? (Diabetes Care 31:8589-4133, 2008). ??The eAG is not equivalent to a fasting glucose. Blood 06/07/2024 8:38 AM CDT 06/07/2024 9:07 AM CDT Joe Hood MD LAB BLOOD ORDER MAITE Final Result [facility] [address] [facility] Department [place] [address] * Lipid panel (06/07/2024 8:38 AM CDT) [facility] Signature Cholesterol 116 30 - 199 mg/dL Comment: Interpretive Data Ages < or = 19 years ??Acceptable: ? <170 mg/dL ??Borderline high: ??170-199 mg/dL ??High: ? >or= 200 mg/dL Ages > or = 20 years ??Desirable: ?<200 mg/dL ??Borderline high: ??200-239 mg/dL ??High: ? >or= 240 mg/dL Literature References: 1. Expert Panel on Integrated Guidelines for Cardiovascular Health and Risk Reduction in Children and Adolescents. Pediatrics 2011;128:S213 2. NCEP Expert Panel. Circulation 2004;110:227 Current Interpretive Data was last revised on 2018. Triglycerides 68 <=149 mg/dL [facility] Comment: Interpretive Data Ages < or = 9 years ??Acceptable: ? <75 mg/dL ??Borderline high: ??75-99 mg/dL ??High: ? >or= 100 mg/dL Ages 10 to 20 years ??Acceptable: ? <90 mg/dL ??Borderline high: ??90-129 mg/dL ??High: ? >or= 130 mg/dL Ages > or = 20 years ??Desirable: ?<150 mg/dL ??Borderline high: ??150-199 mg/dL ??High: ? 200-499 mg/dL ?Very high: ?? >or= 499 mg/dL Literature References: 1. Expert Panel on Integrated Guidelines for Cardiovascular Health and Risk Reduction in Children and Adolescents. Pediatrics 2011;128:S213 2. NCEP Expert Panel. Circulation 2004;110:227 Current Interpretive Data was last revised on 2018. HDL 55 >=40 mg/dL [facility] Comment: Interpretive Data Ages < or = 19 years ??Acceptable: ? >45 mg/dL ??Borderline low: ?? 40-45 mg/dL ??Low: ? <40 mg/dL Ages > or = 20 years ??Desirable: ?>or= 60 mg/dL ??Low: ? <40 mg/dL Literature References: 1. Expert Panel on Integrated Guidelines for Cardiovascular Health and Risk Reduction in Children and Adolescents. Pediatrics 2011;128:S213 2. NCEP Expert Panel. Circulation 2004;110:227 Current Interpretive Data was last revised on 2018. LDL, calculated 47 <=129 mg/dL [facility] Comment: Interpretive Data Ages < or = 19 years ??Acceptable: ? <110 mg/dL ??Borderline high: ??110-129 mg/dL ??High: ?>or= 130 mg/dL Ages > or = 20 years ??Optimal: ? <100 mg/dL ??Near optimal: ?100-129 mg/dL ??Borderline high: ?? 130-159 mg/dL ??High: ?>160 mg/dL Calculated using the Charli LDL-C estimating equation. This equation was implemented on 2024. Prior to this date LDL-C was estimated using the Friedewald equation. Literature References: 1. Expert Panel on Integrated Guidelines for Cardiovascular Health and Risk Reduction in Children and Adolescents. Pediatrics 2011;128:S213 2. NCEP Expert Panel. Circulation 2004;110:227 3. Charli Fitch et al. SADE Cardiol. 2020 December 18;5(5):540-548. doi: 10.1001/jamacardio.2020.0013 Current Interpretive Data was last revised on 2024. Non-HDL Cholesterol 61 mg/dL [facility] Comment: Interpretive Data Ages < or = 19 years ??Acceptable: ?<120 mg/dL ??Borderline high: ??120-144 mg/dL ??High: ?>145 mg/dL Ages > or = 20 years ??When triglycerides are >200 mg/dL, Non-HDL cholesterol is a secondary target of ? therapy with treatment goals that are 30 mg/dL greater than the LDL cholesterol target. ? Literature References: 1. Expert Panel on Integrated Guidelines for Cardiovascular Health and Risk Reduction in Children and Adolescents. Pediatrics 2011;128:S213 2. NCEP Expert Panel. Circulation 2004;110:227 Current Interpretive Data was last revised on 2018. Chol/HDL ratio 2 [facility] Blood 06/07/2024 8:38 AM CDT 06/07/2024 9:07 AM CDT Joe Hood MD LAB BLOOD ORDER MAITE Final Result [facility] [id number] [facility] Department [place] [address] * DIABETES FOOT EXAM (11/05/2020) Diabetic Foot Exam Normal Historical Provider HEALTH MAINTENANCE Final Result * DIABETES EYE EXAM (05/05/2019) Diabetic Eye Exam Normal Historical Provider HEALTH MAINTENANCE Final Result from Last 3 Months or Most Recently Relevant to Health Maintenance Insurance [employer] CHOICE MEDICARE PPO MEDICARE SOLUTIONS MEDICARE SOLUTIONS Advance Directives For more information, please contact: [phone] Documents on File Type Date Recorded Patient Biofuels Technology Development Manager Expl anation ADVANCE DIRECTIVE 12/27/2023 10:41 PM POWER OF RESIDENTIAL BUILDING INSPECTOR-MEDICAL ADVANCE DIRECTIVE 12/26/2023 10:38 AM POWER OF RESIDENTIAL BUILDING INSPECTOR-FINANCIAL * Full Code (Latest Code Status on File) Date Activated Date Inactivated Comments 06/06/2024 11:14 PM 06/09/2024 7:57 PM * Full Code Date Activated Date Inactivated Comments 05/20/2024 12:54 AM 05/21/2024 4:51 PM * Full Code Date Activated Date Inactivated Comments 12/20/2023 7:47 AM 12/26/2023 3:23 PM Care Teams Spa Experience Coordinator Relationship Specialty Start Date End Date Barry Ralph MD PCP - General Family Practice 05/22/24 Rehan Sheth MD [address] [address] Consulting Physician Cardiology 09/09/24
--- OUTSIDE RECORDS SUMMARY | 2024-09-11 14:37 | XMS_ITS | Encounter Summary ---
Author Organization [facility] Healthcare Address [address] [place] [address] Care Team Providers Care Microelectronics Engineer Name Role Phone Barry Ralph MD Primary Care Provider [phone] Barry Ralph MD Primary Care Provider [phone] Rosalee Crowder [facility] Unavailable [phone] Rehan Sheth MD Unavailable [phone] Encounter Details Date Type Department Care Team (Late st Contact Info) Description 02/26/2024 [facility]phone [facility] [address] [facility] [address] [place] [address] Aleksander Shankar MD [address] [facility] [address] [place] [address] Social History Tobacco Use Types Packs/Day Years Used Date Smoking Tobacco: Never Smokeless Tobacco: Never [facility] Utilities Answer Date Recorded In the past 12 months has Hycrete, gas, oil, or water [facility] threatened to shut off services in your home? No 01/01/2024 Social Connection and Isolat ion Panel [NHANES] Answer Date Recorded In a typical week, how many times do you talk on the phone with family, friends, or neighbors? More than three times a week 01/01/2024 How often do you get togethe r with friends or relatives? More than three times a week 01/01/2024 How often do you attend chur or yazidi services? More than 4 times per year 01/01/2024 Do you belong to any clubs o r organizations such as mandaeism groups, unions, fraternal or athletic groups, or school groups? No 01/01/2024 How often do you attend meet ings of the clubs or organizations you belong to? Never 01/01/2024 Are you , , di vorced, , never , or living with a partner? 01/01/2024 AUDIT-C Answer Date Recorded Q1: How often do you have a drink containing alcohol? Never 12/20/2023 Q2: How many drinks containi ng alcohol do you have on a typical day when you are drinking? Patient does not drink Q3: How often do you have si x or more drinks on one occasion? Never 12/20/2023 Overall Financial Resource Strain (CARDIA) Answe r Date Recorded How hard is it for you to pa y for the very basics like food, housing, medical care, and heating? Not hard at all 01/01/2024 PHQ-2 Answer Date Recorded PHQ-2 Total Score (If total score is 3 or more points, staff should administer the PHQ-9) 0 05/13/2021 [facility] - Occupational Stress Questionnaire Answer Date Recorded [...] the money to buy more. Never true 01/01/20 24 Within the past 12 months, t he food you bought just didn't last and you didn't have money to get more. Never true 01/01/2024 PRAPARE - Transportation Answer Date Re corded In the past 12 months, has l ack of transportation kept you from medical appointments or from getting medications? No 12/18 In the past 12 months, has l ack of transportation kept you from meetings, work, or from getting things needed for daily living? No 01/01/2024 Housing Stability Vital Sign Answer [...] place to sleep or slept in a prison (including now)? No 01/01/2024 Personal Safety Answer Date Recorded Have you ever been in or are you currently in a harmful physical or emotional relationship or is someone making you feel afraid or unsafe? 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 Author CCM Chronic Pain Care Plan Chronic Care Management Improving( 10:49 AM SUBMARINE OPERATOR) Nenita Sanchez, RN Note: Problem: Chronic Pain Goals: 1. Minimize further functional decline 2. Maximize quality of life 3. Control pain Strategies: - Activity/exercise program recommendation - Conservative stepwise pain medicine strategy with multi-disciplinary approach - Recommend healthy lifestyle strategies and compensatory methods as needed documented as of this encounter Visit Diagnoses Not on filedocumented in this encounter Additional Health Concerns Infection Onset Date Last Indicated Resolved Time Ring Surveillance 05/19/2024 05/19/2024 05/26/2024 3:05 AM CDT documented as of this encounter Care Teams Microelectronics Engineer Relationship Specialty Start Date End Date Barry Ralph MD PCP - General Family Practice 10/20/22 05/20/24 Barry Ralph MD PCP - General Family Practice 05/22/24 Rosalee Crowder, SIGNALS INTELLIGENCE ANALYST [address] [phone] [place] [address] [facility] Outpatient Business Continuity Planning Director 05/22/24 06/19/24 Rehan Sheth MD [address] [address] Consulting Physician Cardiology 09/09/24 documented as of this encounter
--- OUTSIDE RECORDS SUMMARY | 2024-09-11 14:37 | XMS_ITS | Referral Summary ---
Author Organization [facility] Address [address] [place] [address] Care Team Providers Care Energy Assistant Name Role Phone Barry Ralph MD Primary Care Provider [phone] Rehan Sheth MD Unavailable [phone] Encounters Date Type Department Care Team Description 09/11/2024 12:49 PM LINER INSERTER - Present Emergency [facility] Emergency Department [address] [place] [address] Joseph Lucas MD 09/11/2024 Documentation [facility] Cardiology [address] [place] [address] for Advanced Medicine 8th [place] [address] [place] [address] Rehan Sheth MD 09/11/2024 Telephone [facility] Cardiology [address] [place] [address] Advanced Medicine 8th [place] [address] [place] [address] Rehan Sheth MD Symptoms update 09/10/2024 Telephone [facility] Cardiology [address] [place] [address] Advanced Medicine 8th [place] [address] [place] [address] Rehan Sheth MD Cardiac Clearance request 09/10/2024 12:25 PM LINER INSERTER Lab [facility] ([facility]) [address] [place] [phone] Chronic heart failure with preserved ejection fraction (CMS/HCC) (HCC) 09/10/2024 11:15 AM LINER INSERTER Office Visit [facility] Cardiology [address] [facility] 8th [place] [address] [place] [address] Rehan Sheth MD Chronic heart failure with preserved ejection fraction (CMS/HCC) (HCC) (Primary Dx); Coronary artery disease involving [place] coronary artery of [place] heart with angina pectoris (HCC) 09/10/2024 Telephone [facility] Cardiology [address] [facility] [address] 8th [place] [address] [place] [address] Rehan Sheth MD Chest symptoms 09/09/2024 Telephone [facility] Cardiology [facility] [facility] 8th [place] [address] [place] [address] Rehan Sheth MD Samples/and report of ER eval 09/01/2024 Telephone [facility] Neurosurgery [address] [place] [address] Office [facility] [address] [place] [address] Clayton Robertson DO 08/26/2024 11:32 AM LINER INSERTER - 08/26/2024 11:59 PM LINER INSERTER Hospital Encounter [facility] [address] [place] [address] [address] [place] [address] Lumbar spondylosis; Chronic bilateral low back pain, unspecified whether sciatica present Discharge Disposition: Discharge to home or self care 08/26/2024 12:30 PM LINER INSERTER Office Visit [facility] Neurosurgery [address] [place] [address] Medical Office Building [address] [place] [address] Clayton Robertson DO 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) 08/06/2024 Orders Only [facility] Neurosurgery [address] [place] [address] Office [facility] [address] [place] [address] Clayton Robertson DO Lumbar spondylosis (Primary Dx); Chronic bilateral low back pain, unspecified whether sciatica present 07/04/2024 10:37 AM LINER INSERTER - 07/04/2024 11:59 PM LINER INSERTER Hospital Encounter [facility] [address] [facility] [address] [facility] [address] [place] [address] Aleksander Shankar MD 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); Sacroiliac joint pain; Lumbar spondylosis Discharge Disposition: Discharge to home or self care 06/26/2024 Orders Only [facility] Cardiology [address] [place] [address] 8th [place] [address] [place] [address] Naila Cortez RN High risk medications (not anticoagulants) long-term use (Primary Dx) 06/19/2024 SHOP/CHAP Subsequent Outreach [facility] OP CASE MANAGEMENT [address] [place] [address] Rosalee Crowder, NICK 06/17/2024 11:50 AM CDT Lab [facility] ([facility]) [address] [place] [phone] Hypercholesterolemia 06/17/2024 11:15 AM CDT Office Visit [facility] Cardiology [address] [place] [address] 8th [place] [address] [place] [address] Rehan Sheth MD Benign essential hypertension (Primary Dx); Acute on chronic systolic heart failure (HCC); History of aortic valve replacement; Hypercholesterolemia from Last 3 Months Allergies No known active allergies Medications albuterol HFA (PROVENTIL HFA,VENTOLIN HFA,PROAIR HFA) 90 mcg/actuation inhaler Inhale 2 puffs as needed for shortness of breath 015 Active True Metrix Glucose Meter kit USE DIRECTED 1 kit 021 Active lancets (OneTouch Delica Plus Lancet) 30 gauge miscIndications:Ty pe 2 diabetes mellitus with hyperosmolarity without coma, without long-term current use of insulin ([facility]) ([facility]) Use to check blood sugar 3x daily 300 each 2 022 Active blood glucose diagnostic (True Metrix Glucose Test Strip) stripIndications:T ype 2 diabetes mellitus with hyperosmolarity without coma, without long-term current use of insulin (CMS/HCC) (HCC) TEST BLOOD SUGAR EVERY DAY 100 strip 3 Active DropSafe Alcohol Prep Pads pads, medicated APPLY TOPICALLY TWICE DAILY 100 each 11 Active Additional Information Patient not taking.Reported on [...] needed for muscle spasms 60 tablet 1 024 Active atorvastatin (LIPITOR) 80 mg tablet Take [...] TABLET BY MOUTH DAILY 60 tablet 5 Active apixaban (ELIQUIS) 5 mg tabletIndications: atrial fibrillation Take 1 tablet (5 mg total) by mouth 2 (two) times a day PLEASE RESUME THIS MEDICATION TOMORROW (05/22/2024) 56 tablet 025 Active furosemide (LASIX) 40 mg tablet Take 1 tablet (40 mg total) by mouth 2 (two) times a day 025 Active isosorbide mononitrate ER (IMDUR) 30 mg [...] Diagnosed Date Coronary artery disease invo lving [place] coronary artery of [place] heart with angina pectoris 09/10/2024 Internal carotid artery stenosis, right 06/12/20 Chronic heart failure with p reserved ejection fraction (CMS/HCC) 06/12/2024 Stage 2 chronic kidney disease 06/12/2024 Thrombocytopenia 06/12/2024 Bilateral leg weakness 06/06/2024 NSTEMI (non-ST elevated myocardial infarction) ( [facility]/HCC) 05/20/2024 Assessment & Plan (05/21/2024 11:10 AM CDT): Repeat LHC on 05/20/2024 showed: 60-70% lesion to mid LAD (with a positive IFR of 0.78) and a 90% lesion lesion to ostial circ; RCA with a known NOZZLEMAN (angiography not performed). -s/p Successful PCI to [...] Plan (05/20/2024 11:34 AM CDT): Went to [facility] 05/17 for SOB, new 2L O2 requirement - OSH workup: Trp 1.95>5.1>10, proBNP 6800, CXR w/ mild interstitial edema - OSH LHC 9/30 w/ L main widely patent, LAD proximal body 80% stenosis, LAD stent w/ moderate ISR, L cx w/ 95% stenosis in proximal body, OM branches w/ mild disease, RCA is NOZZLEMAN in mid body w/ L to R collaterals - cath films uploaded - OSH TTE reportedly w/ EF 50%, AV prosthesis w/o abnormal gradients - trop here 7,6561, repeat pending - currently denies chest pain or pressure, sob improving - PCI today - continue heparin drip - continue asa, coreg, atorvastatin 80mg - telemetry Assessment & Plan (05/20/2024 1:02 AM CDT): Went to [facility] 05/17 for SOB, new 2L O2 requirement - OSH workup: Trp 1.95>5.1>10, proBNP 6800, CXR w/ mild interstitial edema - OSH LHC 9/30 w/ L main widely patent, LAD proximal body 80% stenosis, LAD stent w/ moderate ISR, L cx w/ 95% stenosis in proximal body, OM branches w/ mild disease, RCA is NOZZLEMAN in mid body w/ L to R [...] & Plan (05/21/2024 10:58 AM CDT): P/t [facility] 05/17 for SOB, on 3.5L now - OSH wokrup: CXR w/ pulmonary edema, TTE w/ stable EF and AV prosthesis w/o abnormal gradients - mild YUSEF without crackles on exam at time of admission - NT-proBNP 8,388 - transition to PO lasix 40mg daily - Off O2, remains stable. - plan to d/c home later today. Assessment & Plan (05/20/2024 11:50 AM CDT): [facility] 05/17 for SOB, on 3.5L now - [...] Assessment & Plan (05/20/2024 1:00 AM CDT): [facility] 05/17 for SOB, on 2L now - [...] salt diet Acute on chronic heart failure ([facility]) 024 Assessment & Plan (05/21/2024 10:56 AM [...] benefi Assessment & Plan (07/04/2024 1:02 PM LINER INSERTER): He may just be symptomatic from his [...] Assessment & Plan (03/17/2024 1:48 PM CDT): Herb Doctor stenosis and 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 Still [...] stenosis. Assessment & Plan (07/04/2024 1:03 PM LINER INSERTER): Failed LMBB. 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) [I48.91] 8 Overview (09/04/2018): Dr. Sheth helps [...] quiescent Assessment & Plan (09/04/2018 10:33 AM LINER INSERTER): COPD is unchanged. COPD information handout given. [...] to PT - wants to go to [facility]. Trial robaxin. Flexeril on med [...] no Assessment & Plan (10/01/2019 10:35 AM LINER INSERTER): S2 makes a wonderfully crisp snap w/o any regurge Gastroesophageal reflux disease 09/17/2014 Tussive syncope 08/25/2014 Syncope and collapse 08/21/2014 Syncope 08/21/2014 Type 2 diabetes mellitus 07/10/2014 Overview (05/13/2021): Was on levemir but stopped 2015 then on trulicity so on metformin ALONE We had better control w/ Jardiance -since he has been w/ Dr Stockton [phone] has been on Actose and metformin- Off [...] heart- Assessment & Plan (10/01/2019 10:30 AM LINER INSERTER): His A1C has crept to 7.5% Admits [...] covered Assessment & Plan (09/04/2018 10:42 AM LINER INSERTER): Diabetes is worsening. Continue current treatment regimen. Reminded to bring in blood sugar diary at next visit. Dietary recommendations for ADA diet. Regular aerobic exercise. Discussed foot care. Reminded to get yearly retinal exam. Diabetes will be reassessed in 3 months. Given his financial concerns my advice is to use food as wyour medicine Obesity with body mass index 30 or greater 07/09 Generalized anxiety disorder 07/09/2014 Assessment & Plan (10/01/2019 10:32 AM LINER INSERTER): He gets along nicely w/ a low [...] pressure will be reassessed in 3 months. Immunizations Name Administration Dates Next Due Influenza, [...] Unspecified 05/05/2019 Tdap 03/08/2019,02/24/2019,03/19/2016 ZOSTER LIVE 03/19/2016 Social History Tobacco Use Types Packs/Day Years Used Date Smoking Tobacco: Never Smokeless Tobacco: Never Tobacco Cessation:Counseling Given: Not Answered [facility] Utilities Answer Date Recorded In the past 12 months has e [employer], [employer], oil, or water [employer] threatened to shut off services in your [...] 06/09/2024 How often do you attend chur ch or protestant services? More than 4 times per year 06/09/2024 Do you belong to any clubs o r organizations such as religion groups, unions, fraternal or athletic groups, or [...] the PHQ-9) 0 05/13/2021 [facility] - Occupational Stress [...] any time in the past 12 m [facility], were you homeless or living in a jail (including now)? No 06/09/2024 Personal Safety Answer Date Recorded Have you ever been in or are you currently in a harmful physical or emotional relationship or is someone making you feel afraid or unsafe? Denies 09/11/2024 Sex and Gender Information Value Date Recorded Sex Assigned at Not on file Legal Sex Male 8:23 PM LINER INSERTER Gender Identity Not on file Sexual Orientation Not on file Last Filed Vital Signs Vital Sign Reading Time Taken Comments Blood Pressure 140/57 09/11/2024 2:34 PM LINER INSERTER Pulse 67 09/11/2024 2:34 PM LINER INSERTER Temperature 36.4 ??C (97.6 ??F) 09/11/2024 2:34 PM CS T Respiratory Rate 20 09/11/2024 2:34 PM LINER INSERTER Oxygen Saturation 97% 09/11/2024 2:34 PM LINER INSERTER Inhaled Oxygen Concentration - - Weight 104.3 kg (229 lb 15 oz) 09/11/2024 10:34 AM LINER INSERTER Height 182.9 cm (6' 0.01 ) 09/11/2024 10:34 AM C Body Mass Index 31.18 09/11/2024 10:34 AM LINER INSERTER Plan of Treatment Not on file Goals Goal Patient Goal Type Associated Problems Recent Progress Patient-Stated? Author CCM Chronic Pain Care Plan Chronic Care Management Improving( 10:49 AM LINER INSERTER) Nenita Sanchez, RN Note: Problem: Chronic Pain Goals: 1. Minimize further functional decline 2. Maximize quality of life 3. Control pain Strategies: - Activity/exercise program recommendation - Conservative stepwise pain medicine strategy with multi-disciplinary approach - Recommend healthy lifestyle strategies and compensatory methods as needed Medical Devices Implanted Type Area Criminal Records Technician Device Identifier Shelf Expiration Date Model / Serial / Lot [employer] Angio-Seal Vip Bondek-Plus 8fr .038in 70cm Hemostatic Latex Free [id number] - [id number] - [id number] Implanted:Qty : 1 on 05/20/2024 by Papo Rascon MD at [facility] Collagen Right: Common Femoral Artery [employer] 12/10/2024 [id number] / [id number] 12 / [id number] Prosthetic Valve Prosthetic Valve Heart Description:Heart Valve Medtronic Card Vasc Surgery 4.0 X 12mm Shar [place] Rx Coronary Stent [id number] - [id number] Implanted:Qty : 1 on 05/20/2024 by Vitor Pedroza MD at [facility] Stent N/A: Circumflex Coronary Artery Medtronic Card Vasc Surgery 01/11/2027 [id number] / [id number] / [id number] Medtronic Card Vasc Surgery 4.0 X 12mm Shar Darlington Rx Coronary Stent [id number] - [id number] Implanted:Qty : 1 on 05/20/2024 by Vitor Pedroza MD at [facility] Stent Left: Anterior Descending Cornary Artery Medtronic Card Vasc Surgery 11/14/2026 [id number] / [id number] / [id number] Procedures * The patient is currently admitted. The information in this section might not be complete until the patient is discharged. Procedure Name Priority Date/Time Associated Diagnosis Comments PRO B-TYPE NATRIURETIC PEPTIDE STAT 09/11/2024 1:30 PM LINER INSERTER TROPONIN I HIGH-SENSITIVITY 2-HOUR Timed 09/11/2024 1:30 PM LINER INSERTER XR CHEST PA LATERAL 2 VIEWS ED 09/11/2024 11:13 AM LINER INSERTER EGFR STAT 09/11/2024 11:03 AM LINER INSERTER DIFFERENTIAL AUTO STAT 09/11/2024 11: 03 AM LINER INSERTER TROPONIN I HIGH-SENSITIVITY SERIES (BASELINE, 2HR, 4HR, 6HR) STAT 09/11/2024 11:03 AM LINER INSERTER COMPREHENSIVE METABOLIC PANEL STAT 09/11/2024 11:03 AM LINER INSERTER CBC WITH AUTO DIFFERENTIAL STAT 09/11/2024 11:03 AM LINER INSERTER ECG 12-LEAD STAT 09/11/2024 10:52 AM LINER INSERTER POCT GLUCOSE DEVICE Routine 09/11/2024 1 0:48 AM LINER INSERTER EGFR Routine 09/10/2024 12:26 PM LINER INSERTER Chronic heart failure with preserved ejection fraction (CMS/HCC) (HCC) PRO B-TYPE NATRIURETIC PEPTIDE Routine 09/10/2024 12:26 PM LINER INSERTER Chronic heart failure with preserved ejection fraction (CMS/HCC) (HCC) BASIC METABOLIC PANEL Routine 09/10/2024 12:26 PM LINER INSERTER Chronic heart failure with preserved ejection fraction (CMS/HCC) (HCC) ECG 12-LEAD Routine 09/10/2024 11:33 AM LINER INSERTER Chronic heart failure with preserved ejection fraction (CMS/HCC) (HCC) XR SCOLIOSIS AP LAT Schedule Routine, Read Routine (OP Routine) 08/26/2024 11:42 AM LINER INSERTER Lumbar spondylosis Chronic bilateral low back pain, unspecified whether sciatica present BASIC METABOLIC PANEL Routine 07/30/2024 12:37 PM LINER INSERTER High risk medications (not anticoagulants) long-term use BASIC METABOLIC PANEL Routine 07/16/2024 11:34 AM LINER INSERTER High risk medications (not anticoagulants) long-term use BASIC METABOLIC PANEL Routine 06/24/2024 10:29 AM LINER INSERTER Acute on chronic systolic heart failure (HCC) LIPOPROTEIN A (LPA) Routine 06/17/2024 1 1:51 AM CDT Hypercholesterolem ia HEMOGLOBIN A1C Routine 06/07/2024 8:38 AM CDT LIPID PANEL Routine 06/07/2024 8:38 AM CDT DIABETES FOOT EXAM Routine 11/05/2020 DIABETES EYE EXAM Routine 05/05/2019 from Last 3 Months or Most Recently Relevant to Health Maintenance Results * Troponin I high-sensitivity 2-hour (09/11/2024 1:30 PM LINER INSERTER) Trop I hs 14 <=35 ng/L Comment: Interpretive Data For further hscTnI resources including the diagnostic algorithm and an aid in interpretation, copy and paste this link: https://bjhlab.testcatalog.org/show/hsTrop-1 Current Interpretive Data last revised 2020. Trop I hs delta 0 ng/L [facility] BJ Trop I hs interp Insignificant [facility]ERN[facility] BJ H Blood 09/11/2024 1:30 PM LINER INSERTER 09/11/2024 2:03 PM LINER INSERTER us Ricki Ramirez MD LAB BLOOD ORDERABLES Final Result [facility] Department [place] [address] * (ABNORMAL) Pro B-type natriuretic peptide (09/11/2024 1:30 PM LINER INSERTER) NT-proBNP 1,193(H) <=450 pg/mL Comment: Interpretive Comments: [...] et.al. Eur Heart J. 2006:27:330-337. 2. Cortez RW, Jonathon AM. J. AM Renato Cardiol: Cardiovasc Imag. 2009;2: 216- 225. Interpretive Data Last Revised Date: 2018. Blood 09/11/2024 1:30 PM LINER INSERTER 09/11/2024 2:[address] INSER[address] us [address] De Leon MD LAB BLOOD ORDERABLES Final Result [facility] Department [place] [address] * XR Chest Pa Lateral 2 Views (09/11/2024 11:13 AM LINER INSERTER) Anatomical Region Laterality Modality Body, Chest N/A Computed Radiogr aphy 09/11/2024 11:4 4 AM LINER INSERTER Impressions 09/11/2024 11:44 AM LINER INSERTER Comparison to 12/21/2023. 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 Heart and mediastinum are unchanged. There is no pneumothorax or pleural effusion. Small lung volumes with scarring in the left midlung that is similar to the prior CT. No new focal pulmonary opacity. Electronically signed by: Eric Balbuena M.D. Narrative 09/11/2024 11:44 AM LINER INSERTER EXAMINATION: 2 view chest radiograph Procedure Note [...] (baseline, 2hr, 4hr, 6hr) (09/11/2024 11:03 AM LINER INSERTER) Trop I hs 14 <=35 ng/L Comment: Interpretive Data For further hscTnI resources including the diagnostic algorithm and an aid in interpretation, copy and paste this link: https://bjhlab.testcatalog.org/show/hsTrop-1 Current Interpretive Data last revised 2020. Blood 09/11/2024 11:0 3 AM LINER INSERTER 09/11/2024 11:20 AM LINER INSERTER us Joseph Lucas MD LAB BLOOD ORDERABLES Shanna orozco Result [facility] Department [place] [address] * (ABNORMAL) eGFR (09/11/2024 11:03 AM LINER INSERTER) eGFR 49(L) >=60 mL/min/1. 73 m2 Comment: [...] reviewed 2021. Blood 09/11/2024 11:0 3 AM LINER INSERTER 09/11/2024 11:20 AM LINER INSERTER us Joseph Lucas MD LAB BLOOD ORDERABLES Shanna pam Result [facility] [address] [facility] Department [place] [address] * Differential, auto (09/11/2024 11:03 AM LINER INSERTER) Neutrophil abs 4.9 1.5 - 6.5 K/cumm Imm gran abs 0.0 0.0 - 0.1 K/cumm [facility] Lymphocyte abs 1.4 0.8 - 3.3 K/cumm [facility] Monocyte abs 0.7 0.2 - 0.8 K/cumm [facility] Eosinophil abs 0.1 0.0 - 0.5 K/cumm [facility] Basophil abs 0.0 0.0 - 0.1 K/cumm [facility] Neutrophil pct 67.9 % [facility] Comment: Interpretive Data Percent cell count reference ranges are not reported, since discordance with absolute values may lead to misinterpretation of CBC data. Current Interpretive Data was last revised on 2017. Imm gran pct 0.4 % [facility] Comment: Interpretive Data Percent cell count reference ranges are not reported, since discordance with absolute values may lead to misinterpretation of CBC data. Current Interpretive Data was last revised on 2017. Lymphocyte pct 19.8 % [facility] Comment: Interpretive Data Percent cell count reference ranges are not reported, since discordance with absolute values may lead to misinterpretation of CBC data. Current Interpretive Data was last revised on 2017. Monocyte pct 9.6 % [facility] Comment: Interpretive Data Percent cell count reference ranges are not reported, since discordance with absolute values may lead to misinterpretation of CBC data. Current Interpretive Data was last revised on 2017. Eosinophil pct 1.9 % [facility] Comment: Interpretive Data Percent cell count reference ranges are not reported, since discordance with absolute values may lead to misinterpretation of CBC data. Current Interpretive Data was last revised on 2017. Basophil pct 0.4 % [facility] Comment: Interpretive Data Percent cell count reference ranges are not reported, since discordance with absolute values may lead to misinterpretation of CBC data. Current Interpretive Data was last revised on 2017. Blood 09/11/2024 11:0 3 AM LINER INSERTER 09/11/2024 11:20 AM LINER INSERTER Joesph Lucas MD LAB BLOOD ORDERABLES Shanna orozco Result [facility] Department [place] [address] * (ABNORMAL) CBC with auto differential (09/11/2024 11:03 AM LINER INSERTER) WBC 7.3 3.8 - 9.9 K/cumm Hgb 11.0(L) 13.0 - 17.5 g/dL [facility] Hct 33.2(L) 38.9 - 50.3 % [facility] Plt 175 150 - 400 K/cumm [facility] MPV 10.6 9.1 - 12.3 fL [facility] RBC 3.51(L) 4.30 - 5.80 M/cumm [facility] MCV 94.6 81.3 - 96.4 fL [facility] MCH 31.3 27.1 - 33.3 pg [facility] MCHC 33.1 32.3 - 35.7 g/dL [facility] RDW CV 14.9 11.1 - 14.9 % [facility] RDW SD 51.4(H) 35.7 - 48.1 fL [facility] NRBC abs 0.00 0.00 - 0.01 K/cumm [facility] Blood (Blood, Venous) 09/11/2024 11:03 AM LINER INSERTER 09/11/2024 11:20 AM LINER INSERTER us Joseph Lucas MD LAB BLOOD ORDERABLES Shanna orozco Result [facility] Department [place] [address] * (ABNORMAL) Comprehensive metabolic panel (09/11/2024 11:03 AM LINER INSERTER) Sodium 142 135 - 145 mmol/L Potassium, pl 3.6 3.3 - 4.9 mmol/L [facility] Chloride 102 97 - 110 mmol/L [facility] CO2 28 22 - 32 mmol/L [facility] Anion gap 12 2 - 15 mmol/L [facility] BUN 33(H) 6 - 25 mg/dL [facility] Creatinine 1.40(H) 0.80 - 1.30 mg/dL [facility] Glucose 114 70 - 199 mg/dL [facility] Comment: Interpretive Data Fasting glucose >/= 126 [...] 2022. Calcium 8.9 8.5 - 10.3 mg/dL [facility] Bilirubin, total 0.4 0.1 - 1.2 mg/dL [facility] Protein, pl 6.9 6.5 - 8.5 g/dL [facility] Albumin 3.9 3.5 - 5.0 g/dL [facility] Alk phos 43 40 - 130 Units/L [facility] ALT 13 7 - 55 Units/L [facility] AST 24 10 - 50 Units/L [facility] Blood 09/11/2024 11:0 3 AM LINER INSERTER 09/11/2024 11:20 AM LINER INSERTER Joseph Lucas MD LAB BLOOD ORDERABLES Shanna l Result Performing Organization Address [facility] Co de Phone Number [facility] Department [place] [address] * ECG 12-LEAD (09/11/2024 10:52 AM LINER INSERTER) Narrative MUSE [facility] - 09/11/2024 10:52 AM LINER INSERTER Hermilo Linares MD ? 09/11/2024 10:55 AM [...] in the ED Hermilo Linares MD 09/11/24 [id number] us Joseph Lucas MD ECG ORDERABLES Final Res ult Performing Organization Address [facility] Co de Phone Number MUSE [facility] * POCT glucose (09/11/2024 10:48 AM LINER INSERTER) Glucose, POC 112 70 - 199 mg/dL Blood 09/11/2024 10:4 8 AM LINER INSERTER 09/11/2024 10:48 AM LINER INSERTER us Notinfile Unknown LAB POCT ORDERABLES - DEVICE F inal Result [facility] Department [place] [address] * (ABNORMAL) eGFR (09/10/2024 12:26 PM LINER INSERTER) eGFR 54(L) >=60 mL/min/1. 73 m2 Comment: [...] reviewed 2021. Blood 09/10/2024 12:2 6 PM LINER INSERTER 09/10/2024 1:37 PM LINER INSERTER us Rehan Sheth MD LAB BLOOD ORDERABLES F inal Result [facility] Department [place] [address] * (ABNORMAL) Pro B-type natriuretic peptide (09/10/2024 12:26 PM LINER INSERTER) NT-proBNP 2,273(H) <=450 pg/mL Comment: Interpretive Comments: [...] et.al. Eur Heart J. 2006:27:330-337. 2. Cortez RW, Jonathon CAMPOS. J. AM Renato Cardiol: Cardiovasc Imag. 2009;2: 216- 225. Interpretive Data Last Revised Date: 2018. Blood 09/10/2024 12:2 6 PM LINER INSERTER 09/10/2024 1:32 PM LINER INSERTER us Rehan Sheth MD LAB BLOOD ORDERABLES F inal Result [facility] Department [place] [address] * (ABNORMAL) Basic metabolic panel (09/10/2024 12:26 PM LINER INSERTER) Sodium 142 135 - 145 mmol/L Potassium, pl 3.9 3.3 - 4.9 mmol/L [facility] Chloride 104 97 - 110 mmol/L [facility] CO2 28 22 - 32 mmol/L [facility] Anion gap 10 2 - 15 mmol/L [facility] BUN 31(H) 6 - 25 mg/dL [facility] Creatinine 1.29 0.80 - 1.30 mg/dL [facility] Glucose 126 70 - 199 mg/dL [facility] Comment: Interpretive Data Fasting glucose >/= 126 [...] classification and Diagnosis of Diabetes Diabetes Care 2022; 46: S19-S40. Current interpretive data was last revised 2022. Calcium 9.2 8.5 - 10.3 mg/dL [facility] Blood 09/10/2024 12:2 6 PM LINER INSERTER 09/10/2024 1:32 PM LINER INSERTER Rehan Sheth MD LAB BLOOD ORDERABLES F inal Result [facility] Department [place] [address] * ECG 12 lead (09/10/2024 11:33 AM LINER INSERTER) Rehan Sheth MD ECG ORDERABLES Edited Result - Final * XR Scoliosis Ap and Lateral (08/26/2024 11:42 AM LINER INSERTER) Anatomical Region Laterality Modality Spine N/A Computed Radiogr aphy 08/26/2024 12:3 0 PM LINER INSERTER Impressions 08/26/2024 12:30 PM LINER INSERTER 1. ??Mild thoracolumbar curvature with leftward coronal and anterior sagittal imbalance Electronically signed by: Mehran Sotomayor MD Narrative 08/26/2024 12:30 PM LINER INSERTER EXAMINATION: XR SCOLIOSIS AP AND LATERAL HISTORY: [...] Comparison is made to prior radiographs for 1924. [...] (ABNORMAL) Basic metabolic panel (07/30/2024 12:37 PM LINER INSERTER) Glucose 143(H) 65 - 99 mg/dL [facility] Comment: ? Fasting reference interval For someone without known diabetes, a glucose value >125 mg/dL indicates that they may have diabetes and this should be confirmed with a follow-up test. BUN 22 7 - 25 mg/dL [facility] Creatinine 1.04 0.70 - 1.22 mg/dL [facility] eGFR 71 > OR = 60 mL/min/1.7 3m2 [facility] BUN/creat ratio SEE NOTE: (calc) [facility] Comment: ?? Not Reported: BUN and Creatinine are within ?? reference range. ? Sodium 141 135 - 146 mmol/L [facility] Potassium, pl 4.2 3.5 - 5.3 mmol/L [facility] Chloride 103 98 - 110 mmol/L [facility] CO2 30 20 - 32 mmol/L [facility] Calcium 8.9 8.6 - 10.3 mg/dL [facility] Blood 07/30/2024 12:3 7 PM LINER INSERTER 07/30/2024 12:38 PM LINER INSERTER Rehan Sheth MD LAB BLOOD ORDERABLES F inal Result [facility] [address] [place] [address] * (ABNORMAL) Basic metabolic panel (07/16/2024 11:34 AM LINER INSERTER) Glucose 115 65 - 139 mg/dL [facility] Comment: ? Non-fasting reference interval BUN 29(H) 7 - 25 mg/dL [facility] Creatinine 1.23(H) 0.70 - 1.22 mg/dL [facility] eGFR 58(L) > OR = 60 mL/min/1.7 3m2 [facility] BUN/creat ratio 24(H) 6 - 22 (calc) [facility] Sodium 138 135 - 146 mmol/L [facility] Potassium, pl 4.4 3.5 - 5.3 mmol/L [facility] Chloride 101 98 - 110 mmol/L [facility] CO2 27 20 - 32 mmol/L [facility] Calcium 8.7 8.6 - 10.3 mg/dL [facility] Blood 07/16/2024 11:3 4 AM LINER INSERTER 07/16/2024 11:34 AM LINER INSERTER Narrative [facility] - 07/16/2024 10:30 PM LINER INSERTER INSURANCE VERIFIED FASTING:NO FASTING: NO Rehan Sheth MD LAB BLOOD ORDERABLES F inal Result [facility] [address] [place] [address] * (ABNORMAL) Basic metabolic panel (06/24/2024 10:29 AM LINER INSERTER) Glucose 163(H) 65 - 99 mg/dL [facility] Blood 06/24/2024 10:2 9 AM LINER INSERTER 06/24/2024 10:30 AM LINER INSERTER Rehan Sheth MD LAB BLOOD ORDERABLES F inal Result [facility] [address] [place] [address] * Lipoprotein a (LPa) (06/17/2024 11:51 AM CDT) Pathologist [facility] Lipoprotein A 24 <75 nmol/L [facility] Comment: ADDITIONAL INFORMATION Please notice that Lp(a) values are reported in molar units (nmol/L). ??These units are recommended by professional society guidelines and expert opinion statements. ??Measured results and risk thresholds are higher than those generated using mass units (mg/dL). Cardiovascular risk increases starting at 75 nmol/L. Lp(a) >=125 nmol/L is considered a risk enhancing factor by the [place] [employer]. This test has been modified from the nurse companion's instructions. Its performance characteristics were determined by [facility] in a manner consistent with CLIA requirements. This test has not been cleared or approved by the U.S. Food and Drug Administration. Test Performed by: [address] [address] [place] Department Supervisor: Harvey Torres Ph.D.; CLIA# [id number] Blood 06/17/2024 11:5 1 AM CDT 06/17/2024 12:59 PM CDT Rehan Sheth MD LAB BLOOD ORDERABLES F inal Result [facility] Department [place] [address] [facility] * (ABNORMAL) Hemoglobin A1c (06/07/2024 [...] children were not included. ?? (Diabetes Care 31:7331-6392, 2008). ??The eAG is not equivalent to a fasting glucose. Blood 06/07/2024 8:38 AM CDT 06/07/2024 9:07 AM CDT oJe Hood MD LAB BLOOD ORDER MAITE Final Result Performing Organization Address City/[facility]/ZIP Co de Phone Number [facility] [address] [facility] Department of Laboratories [place], [place] [id number] * Lipid panel (06/07/2024 8:38 AM CDT) Cholesterol 116 30 - 199 mg/dL Comment: [...] on 2018. Triglycerides 68 <=149 mg/dL [facility] Comment: Interpretive Data Ages < or = [...] on 2018. HDL 55 >=40 mg/dL [facility] Comment: Interpretive Data Ages < or = [...] 2018. LDL, calculated 47 <=129 mg/dL [facility] Comment: Interpretive Data Ages < or = [...] on 2024. Non-HDL Cholesterol 61 mg/dL [facility] Comment: Interpretive Data Ages < or = [...] revised on 2018. Chol/HDL ratio 2 [facility] Blood 06/07/2024 8:38 AM CDT 06/07/2024 9:07 AM CDT us Joe Hood MD LAB BLOOD ORDER MAITE Final Result [facility] [address] [facility] Department [place] [address] * DIABETES FOOT EXAM (11/05/2020) Diabetic Foot Exam Normal Historical Provider HEALTH MAINTENANCE Final Result * DIABETES EYE EXAM (05/05/2019) Diabetic Eye Exam Normal Historical Provider HEALTH MAINTENANCE Final Result from Last 3 Months or Most Recently Relevant to Health Maintenance Insurance [employer] CHO[employer] MEDICARE PPO MEDICARE SOLUTIONS MEDICARE SOLUTIONS Advance Directives For more information, please contact: [phone] Documents on File Type Date Recorded Patient Shredding Machine Tender Expl anation ADVANCE DIRECTIVE 12/27/2023 10:41 PM POWER OF EMBEDDED CASE MANAGER-MEDICAL ADVANCE DIRECTIVE 12/26/2023 10:38 AM POWER OF EMBEDDED CASE MANAGER-FINANCIAL * Full Code (Latest Code Status on File) Date Activated Date Inactivated Comments 06/06/2024 11:14 PM 06/09/2024 7:57 PM * Full Code Date Activated Date Inactivated Comments 05/20/2024 12:54 AM 05/21/2024 4:51 PM * Full Code Date Activated Date Inactivated Comments 12/20/2023 7:47 AM 12/26/2023 3:23 PM Care Teams Energy Assistant Relationship Specialty Start Date End Date Barry Ralph MD PCP - General Family Practice 05/22/24 Rehan Sheth MD [address] [address] Consulting Physician Cardiology 09/09/24
--- OUTSIDE RECORDS SUMMARY | 2024-09-11 14:37 | XMS_ITS | Continuity of Care Document ---
Author Organization [facility] Address [address] [place] [address] [address] [place] [address] Phone Care Team Providers Care Chiropractor Assistant Name Role Phone [place] OD, Hermilo Unavailable Unavailable Procedures Procedure Date Eye Exam, New Patient Refraction Advance Directives Directive Yes / No Effective Date File Name No Information Encounters Encounter Description Practice Location Reason(s) For Visit Diagnoses Date Provider Providers Copied on Encounter [facility], [address] [place] [address] [address], [place], [place], [id number], [place] tel:[phone] [facility] No Information [phone] [place] OD Hermilo. [address] , [address], [place], [address], [place]. tel:[phone] Family History Family Member Type Diagnosis Age At Onset No Information Payers Payer name Insurance type Covered libertarian ID Authoriza tion(s) [employer] Plan CI [id number] Social History Type Description Quantity Date Captured Comments Sex Male Smoking Status No Information Chief Complaint And Reason For Visit No Information Reason For Referral Reason For Referral No Information History Of Present Illness Encounter Date Complaint History Of Prese nt Illness No Information Functional Status Date Functional Assessmen t No Information Instructions Date Instruction Additional Infor mation No Information Assessments Type Assessment Date No Information Patient Care Teams Name Effective Dates (start - stop) Status Members No Information
== END 2024-09-08 17:45 | disposition home or self-care (01) ==
PROVIDERS: Emergency Provider Family Medicine; PCP Family Medicine
DX: N39.0 Urinary tract infection, site not specified (principal); B96.89 Other specified bacterial agents as the cause of diseases classified elsewhere; E11.9 Type 2 diabetes mellitus without complications; I48.91 Unspecified atrial fibrillation; I50.9 Heart failure, unspecified; Z86.73 Personal history of transient ischemic attack (TIA), and cerebral infarction without residual deficits
CPT/HCPCS: 36415; 70450; 71045; 80053; 81001; 82550; 84484; 85025; 87086; 87186; 93005; 99284; A9270

== ENCOUNTER 2024-09-18 03:05 | Emergency (ER) | payer MEDICARE, SELFPAY ==
[2024-09-18] VITALS (17 sets, daily range): BP systolic 126–146; BP diastolic 51–83; PULSE 60–117; RESP 12–22; TEMP 36.3–37.2; O2SAT 94–98
--- NOTE | ~2024-09-18 | XR_ITS ---
XR chest 1V portable 09/18/2024 03:36 Indication: Shortness of breath Procedure: AP portable chest Comparison: Comparison to multiple prior studies sequentially, with oldest reviewed study dated 12/16. Findings: Status post median sternotomy for CABG. There is a prosthetic heart valve. Cardiomegaly. St able mild interstitial edema. No pleural effusion or pneumothorax. Impression: 1: Cardiomegaly with mild interstitial edema. Reviewed, dictated and finalized at location [facility]. [facility] Impression: 1: Cardiomegaly with mild interstitial edema.
--- OUTSIDE RECORDS SUMMARY | 2024-09-18 03:07 | XMS_ITS | Referral Summary ---
Author Organization [facility] Address [address] [place] [address] Care Team Providers Care Salesperson Household Appliances Name Role Phone Barry Ralph MD Primary Care Provider [phone] Rehan Sheth MD Unavailable [phone] Sangita Moore RN Unavailable [phone] Encounters Date Type Department Care Team Description 09/17/2024 SHOP/CHAP Subsequent Outreach [facility] OP CASE MANAGEMENT [address] [place] [phone] Sangita Moore, RN 09/15/2024 SHOP/CHAP Initial Outreach [facility] OP CASE MANAGEMENT [address] [place] [phone] Sangita Moore, RN 09/15/2024 Telephone [facility] [address] [place] [address] 8th [place] [address] [place] [address] Rehan Sheth MD f/u orders 09/15/2024 SHOP/CHAP Initial Eligibility Review [facility] OP CASE MANAGEMENT [address] [place] [address] Sangita Moore RN 09/11/2024 12:49 PM [employer] - 09/14/2024 12:22 PM [employer] Hospital Encounter [facility] [address] [place] [address] Joseph Lucas MD [place], MD Melissa King, Dalila Jean MD Chest pain, unspecified type (Primary Dx) Discharge Disposition: Discharge to home or self care 09/11/2024 Documentation [facility] [address] [place] [address] Advanced Medicine 8th [place] [address] [place] [address] Rehan Sheth MD 09/11/[address] [facility] [address]th [place] [address] [place] [address] Rehan Sheth MD Symptoms update 09/10/[address] [facility] 8th [place] [address] [place] [address] Rehan Sheth MD Cardiac Clearance request 09/10/2024 12:25 PM [employer] Lab [facility]) [address] [place] [phone] Chronic heart failure with preserved ejection fraction (CMS/HCC) (HCC) 09/10/2024 11:15 AM [employer] Office Visit [address] 8th [place] [address] [place] [address] Rehan Sheth MD Chronic heart failure with preserved ejection fraction (CMS/HCC) (HCC) (Primary Dx); Coronary artery disease involving [place] coronary artery of [place] heart with angina pectoris (HCC) 09/10/[address] [facility] [address]th [place] [address] [place] [address] Rehan Sheth MD Chest symptoms 09/09/2024 Telephone [facility] 8th [place] [address] [place] [phone] Rehan Sheth MD Samples/and report of ER eval 09/01/2024 Telephone [facility] Neuro[facility] Building [address] [place] [address] Clayton Robertson DO 08/26/2024 11:32 AM [employer] - 08/26/2024 11:59 PM [employer] Hospital Encounter [facility] Rad[facility] [address] [place] [address] [address] [place] [address] Lumbar spondylosis; Chronic bilateral low back pain, unspecified whether sciatica present Discharge Disposition: Discharge to home or self care 08/26/2024 12:30 PM [employer] Office Visit [facility] [address] [place] [address] Clayton Robertson DO 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) 08/06/2024 Orders Only [facility] [address] [place] [address] Medical Office Building [address] [place] [address] Clayton Robertson DO Lumbar spondylosis (Primary Dx); Chronic bilateral low back pain, unspecified whether sciatica present 07/04/2024 10:37 AM [employer] - 07/04/2024 11:59 PM [employer] Hospital Encounter [facility] [address] [place] [address] Aleksander Shankar MD 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); Sacroiliac joint pain; Lumbar spondylosis Discharge Disposition: Discharge to home or self care 06/26/2024 Orders Only [facility] [address] [place] [address] 8th [place] [address] [place] [phone] Naila Cortez RN High risk medications (not anticoagulants) long-term use (Primary Dx) 06/19/2024 SHOP/CHAP Subsequent Outreach [facility] OP CASE MANAGEMENT [address] [place] [address] Rosalee Crowder, DIGITAL COMMUNICATIONS MANAGER from Last 3 Months Allergies No known active allergies Medications albuterol HFA (PROVENTIL HFA,VENTOLIN HFA,PROAIR HFA) 90 mcg/actuation inhaler Inhale 2 puffs as needed for shortness of breath Active True Metrix Glucose Meter kit USE DIRECTED 1 kit Active lancets (StyleUp Delica Plus Lancet) 30 gauge miscIndications:Ty pe 2 diabetes mellitus with hyperosmolarity without coma, without long-term current use of insulin ([facility]) ([facility]) Use to check blood sugar 3x daily 300 each 2 Active blood glucose diagnostic (True Metrix Glucose Test Strip) stripIndications:T ype 2 diabetes mellitus with hyperosmolarity without coma, without long-term current use of insulin ([facility]) ([facility]) TEST BLOOD SUGAR EVERY DAY 100 strip [...] BY MOUTH EVERY NIGHT 100 tablet 2 024 Active carvediloL (COREG) 25 mg tablet TAKE 1 TABLET BY MOUTH TWICE DAILY WITH MEALS 200 tablet 2 Active glipiZIDE XL (GLUCOTROL XL) 5 mg 24 hr tablet TAKE 1 TABLET BY MOUTH DAILY 100 tablet 2 024 Active losartan (COZAAR) 100 mg tablet TAKE [...] TOMORROW (05/22/2024) 60 tablet 024 2024 Discontinued furosemide (LASIX) 40 mg tablet Take 1 tablet (40 mg total) by mouth 2 (two) times a day 60 tablet 025 2024 Discontinued(S top Taking at Discharge) Active Problems Problem Noted Date Diagnosed Date Chest pain, unspecified type 09/11/2024 Coronary artery disease invo lving [place] coronary artery of [place] heart with angina pectoris 09/10/2024 Internal carotid artery stenosis, right 06/12/20 Chronic heart failure with p reserved ejection fraction (CMS/HCC) 06/12/2024 Stage 2 chronic kidney disease 06/12/2024 Thrombocytopenia 06/12/2024 Bilateral leg weakness 06/06/2024 NSTEMI (non-ST elevated myocardial infarction) ( [facility]) 05/20/2024 Assessment & Plan (05/21/2024 11:10 AM CDT): Repeat [facility] on 05/20/2024 showed: 60-70% lesion to mid LAD (with a positive IFR of 0.78) and a 90% lesion lesion to ostial circ; RCA with a known BRICKMASON (angiography not performed). -s/p Successful PCI to [...] Plan (05/20/2024 11:34 AM CDT): Went to [facility] 05/17 for SOB, new 2L O2 requirement - OSH workup: Trp 1.95>5.1>10, proBNP 6800, CXR w/ mild interstitial edema - OSH [facility] 05/19 w/ L main widely patent, LAD proximal body 80% stenosis, LAD stent w/ moderate ISR, L cx w/ 95% stenosis in proximal body, OM branches w/ mild disease, RCA is BRICKMASON in mid body w/ L to R collaterals - cath films uploaded - OSH TTE reportedly w/ EF 50%, AV prosthesis w/o abnormal gradients - trop here 7,1597, repeat pending - currently denies chest pain or pressure, sob improving - PCI today - continue heparin drip - continue asa, coreg, atorvastatin 80mg - telemetry Assessment & Plan (05/20/2024 1:02 AM CDT): Went to [facility] 05/17 for SOB, new 2L O2 requirement - OSH workup: Trp 1.95>5.1>10, proBNP 6800, CXR w/ mild interstitial edema - OSH [facility] 05/19 w/ L main widely patent, LAD proximal body 80% stenosis, LAD stent w/ moderate ISR, L cx w/ 95% stenosis in proximal body, OM branches w/ mild disease, RCA is BRICKMASON in mid body w/ L to R [...] & Plan (05/21/2024 10:58 AM CDT): P/t [facility] 05/17 for SOB, on 3.5L now - OSH wokrup: CXR w/ pulmonary edema, TTE w/ stable EF and AV prosthesis w/o abnormal gradients - mild YUSEF without crackles on exam at time of admission - NT-proBNP 8,388 - transition to PO lasix 40mg daily - Off O2, remains stable. - plan to d/c home later today. Assessment & Plan (05/20/2024 11:50 AM CDT): P/t [facility] 05/17 for SOB, on 3.5L now - [...] Assessment & Plan (05/20/2024 1:00 AM CDT): P/t [facility] 05/17 for SOB, on 2L now - [...] salt diet Acute on chronic heart failure ([facility]) 024 Assessment & Plan (05/21/2024 10:56 AM [...] joint pain 04/23/2024 Overview (07/04/2024): Lauri NEIL 9/26/24 - No significant benefit Assessment & Plan [...] benefi Assessment & Plan (07/04/2024 1:02 PM [employer]): He may just be symptomatic from his stenosis. I discussed surgical evaluation given his ongoing pain with limited success with interventions. He is agreeable to this. Referred to Dr. Robretson. Assessment & Plan (04/23/2024 5:40 PM CDT): He notes some improvement of his pain when he sleeps at night after lumbar epidural steroid injection. However this has not been significantly helpful. Also did not improve the pain into the buttocks with ambulation, standing. 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 Still [...] stenosis. Assessment & Plan (07/04/2024 1:03 PM [employer]): Failed LMBB. Assessment & Plan (04/23/2024 5:41 [...] Encounter for Medicare annual wellness exam 05/20 terminal clerk (current) use of anticoagulants [Z79.0 1] 03/27/2018 Atrial fibrillation ([facility]/HCC) [I48.91] 8 Overview (09/04/2018): Dr. Sheth helps [...] quiescent Assessment & Plan (09/04/2018 10:33 AM [employer]): COPD is unchanged. COPD information handout given. [...] to PT - wants to go to [facility]. Trial robaxin. Flexeril on med [...] no Assessment & Plan (10/01/2019 10:35 AM [employer]): S2 makes a wonderfully crisp snap w/o any regurge Gastroesophageal reflux disease 09/17/2014 Tussive syncope 08/25/2014 Syncope and collapse 08/21/2014 Syncope 08/21/2014 Type 2 diabetes mellitus 07/10/2014 Overview (05/13/2021): Was on levemir but stopped 2015 then on trulicity so on metformin ALONE We had better control w/ Katiediance -since he has been w/ Dr Stockton [phone] has been on Actose and metformin- Off [...] (12/20/2023 9:28 AM CDT): Chronic. Maintains on glipizide, Alexandreunarnulfo at home with plan to hold these [...] heart- Assessment & Plan (10/01/2019 10:30 AM [employer] INTERNSHIP): His A1C has crept to 7.5% Admits [...] covered Assessment & Plan (09/04/2018 10:42 AM [employer]): Diabetes is worsening. Continue current treatment regimen. Reminded to bring in blood sugar diary at next visit. Dietary recommendations for ADA diet. Regular aerobic exercise. Discussed foot care. Reminded to get yearly retinal exam. Diabetes will be reassessed in 3 months. Given his financial concerns my advice is to use [facility] Obesity with body mass index 30 or greater 07/09 Generalized anxiety disorder 07/09/2014 Assessment & Plan (10/01/2019 10:32 AM [employer]): He gets along nicely w/ a low [...] A virus 07/27/2017 02/22/2018 Paroxysmal atrial fibrillation ([facility]/HCC) 07/02/2017 09/04/2018 Overview (02/22/2018): Was on NOAC [...] High D ose, Split, Preservative Free, Intramuscular 09/12/2024,06/04/2019,07/02/2018,05/23,07/17/2016,05/13/2015,07/10/2014 Influenza, Trivalent, Preser vative Free, Intramuscular 07/05/2011 Influenza, Unspecified 05/20/2016 Pfizer SARS-CoV-2 Monovalent Vaccination (12+ Yrs) PURPLE 10/23/2020,09/25/2020 Pfizer Sars-Cov-2 Bivalent V accination (12+ YRS) 05/16/2022 Pneumococcal Conjugate PCV 13 06/04/2019 Pneumococcal Polysaccharide PPV23 07/10/2014 Td, Unspecified 05/05/2019 Tdap 03/08/2019,02/24/2019,03/19/2016 ZOSTER LIVE 03/19/2016 Social History Tobacco Use Types Packs/Day Years Used Date Smoking Tobacco: Never Smokeless Tobacco: Never Tobacco Cessation:Counseling Given: Not Answered [facility] Odys[employer]ities Answer Date Recorded In the past 12 months has [employer], gas, oil, or water [employer] threatened to shut off services in your home? No 09/15/2024 Social Connection and Isolat ion Panel [NHANES] Answer Date Recorded In a typical week, how many times do you talk on the phone with family, friends, or neighbors? More than three times a week 09/15/2024 How often do you get togethe r with friends or relatives? More than three times a week 09/15/2024 How often do you attend [facility] or buddhist services? More than 4 times per year 09/15/2024 Do you belong to any clubs o r organizations such as yarsanism groups, unions, fraternal or athletic groups, or school groups? No 09/15/2024 How often do you attend meet ings of the clubs or organizations you belong to? Never 09/15/2024 Are you , , di vorced, , never , or living with a partner? 09/15/2024 AUDIT-C Answer Date Recorded Q1: How often [...] care, and heating? Not hard at all 09/15/2024 PHQ-2 Answer Date Recorded PHQ-2 Total Score 0 09/12/2024 [facility] Occupat ional Health - Occupational Stress [...] the money to buy more. Never true 09/15/19 25 Within the past 12 months, t he food you bought just didn't last and you didn't have money to get more. Never true 09/15/2024 PRAPARE - Transportation Answer Date Re corded In the past 12 months, has l ack of transportation kept you from medical appointments or from getting medications? No 08/21 In the past 12 months, has l ack of transportation kept you from meetings, work, or from getting things needed for daily living? No 09/15/2024 Housing Stability Vital Sign Answer Deangelo e [...] place to sleep or slept in a halfway (including now)? No 01/01/2024 Housing Stability Vital Sign Answer Deangelo e Recorded In the last 12 months, was t here a time when you were not able to pay the mortgage or rent on time? No 09/15/2024 In the past 12 months, how m any times have you moved where you were living? 1 09/15/2024 At any time in the past [address] [facility], were you homeless or living in a halfway (including now)? No 09/15/2024 Personal Safety Answer Date Recorded Have you ever been in or are you currently in a harmful physical or emotional relationship or is someone making you feel afraid or unsafe? Denies 09/11/2024 Sex and Gender Information Value Date Recorded Sex Assigned at Not on file Legal Sex Male 8:23 PM [employer] Gender Identity Not on file Sexual Orientation Not on file Last Filed Vital Signs Vital Sign Reading Time Taken Comments Blood Pressure 133/57 09/14/2024 7:33 AM [employer]IP Pulse 64 09/14/2024 7:33 AM [employer] Temperature 36.8 ??C (98.2 ??F) 09/14/2024 7:33 AM CS T Respiratory Rate 18 09/14/2024 7:33 AM [employer]HIP Oxygen Saturation 95% 09/14/2024 7:33 AM [employer] INTER[employer]HIP Inhaled Oxygen Concentration - - Weight 100.6 kg (221 lb 12.8 oz) 09/14/2024 4:49 AM [employer] INTERNSHIP Height 182.9 cm (6') 09/11/2024 4:35 PM [employer]HIP Body Mass Index 30.08 09/11/2024 4:35 PM [employer] Plan of Treatment Not on file Goals Goal Patient Goal Type Associated Problems Recent Progress Patient-Stated? Author CCM Chronic Pain Care Plan Chronic Care Management Improving( 10:49 AM [employer]) No Nenita Santiago, TIM Note: Problem: Chronic Pain Goals: 1. Minimize further functional decline 2. Maximize quality of life 3. Control pain Strategies: - Activity/exercise program recommendation - Conservative stepwise pain medicine strategy with multi-disciplinary approach - Recommend healthy lifestyle strategies and compensatory methods as needed Patient will have kept initial appointment and will show signs of improvement to baseline Care Plan Initial Follow-Up Appointment No Sangita Moore, RN Note: Pt has an appointment with PCP next week and either he or his will drive to appointment. Patient will be knowledgeable about CHF and how to respond to exacerbations at home Care Plan Knowledge Deficit Concerning CHF Sangita Sylvester, RN Note: Inst daily weights to monitor fluid retention. 09/17 Pt still does not have a scale and reminded on the importance of daily weights to monitor fluid retention. His breathing is better and no edema noted. He had a GI virus earlier this week and is feeling a little better today. Reminded them also on the importance of checking blood sugars jasmeet while having nausea and vomiting. Medical Devices Implanted Type Area Cooker Operator Device Identifier Shelf Expiration Date Model / Serial / Lot [employer] Angio-Seal Vip Bondek-Plus 8fr .038in 70cm Hemostatic Latex Free [id number] - [id number] - [id number] Implanted:Qty : 1 on 05/20/2024 by Papo Rascon MD at [facility] Collagen Right: Common Femoral Artery [employer] 12/10/2024 [id number] / [id number] / [id number] Prosthetic Valve Prosthetic Valve Heart Description:Heart Valve Medtronic Card Vasc Surgery 4.0 X 12mm Shar [place] Rx Coronary Stent [id number] - [id number] Implanted:Qty : 1 on 05/20/2024 by Vitor Pedroza MD at [facility] Stent N/A: Circumflex Coronary Artery Medtronic Card Vasc Surgery 01/11/2027 [id number] / [id number] / [id number] Medtronic Card Vasc Surgery 4.0 X 12mm Shar [place] Rx Coronary Stent [id number] - [id number] Implanted:Qty : 1 on 05/20/2024 by Vitor Pedroza MD at [facility] Stent Left: Anterior Descending Cornary Artery Medtronic Card Vasc Surgery 11/14/2026 [id number] / [id number] / [id number] Procedures Procedure Name Priority Date/Time Associated Diagnosis Comments EGFR STAT 09/14/2024 8:23 AM [employer]HIP BASIC METABOLIC PANEL STAT 09/14/2024 8:23 AM [employer] EGFR Routine 09/13/2024 9:57 PM [employer]IP CBC WITHOUT DIFFERENTIAL Routine 09/13/2024 9:57 PM [employer] MAGNESIUM Routine 09/13/2024 9:57 PM [employer]IP BASIC METABOLIC PANEL Routine 09/13/2024 9:57 PM [employer]IP EGFR Routine 09/12/2024 8:13 PM [employer]IP CBC WITHOUT DIFFERENTIAL Routine 09/12/2024 8:13 PM [employer] MAGNESIUM Routine 09/12/2024 8:13 PM [employer]IP BASIC METABOLIC PANEL Routine 09/12/2024 8:13 PM [employer]IP SODIUM, URINE, RANDOM Routine 09/12/2024 12:36 PM [employer]IP POCT GLUCOSE DEVICE Routine 09/12/2024 7 :52 AM [employer]IP POCT GLUCOSE DEVICE Routine 09/12/2024 6 :21 AM [employer] POCT GLUCOSE DEVICE Routine 09/12/2024 2 :15 AM [employer] EGFR Routine 09/11/2024 11:44 PM [employer]IP CBC WITHOUT DIFFERENTIAL Routine 09/11/2024 11:44 PM [employer] MAGNESIUM Routine 09/11/2024 11:44 PM [employer]IP BASIC METABOLIC PANEL Routine 09/11/2024 11:44 PM [employer] POCT GLUCOSE DEVICE Routine 09/11/2024 8 :14 PM [employer] POCT GLUCOSE DEVICE Routine 09/11/2024 5 :23 PM [employer]IP TROPONIN I HIGH-SENSITIVITY 4-HOUR Timed 09/11/2024 3:10 PM [employer]IP POCUS CARDIAC 09/11/2024 1:58 PM [employer]IP PRO B-TYPE NATRIURETIC PEPTIDE STAT 09/11/2024 1:30 PM [employer]IP TROPONIN I HIGH-SENSITIVITY 2-HOUR Timed 09/11/2024 1:30 PM [employer] XR CHEST PA LATERAL 2 VIEWS ED 09/11/2024 11:13 AM [employer]IP EGFR STAT 09/11/2024 11:03 AM [employer] DIFFERENTIAL AUTO STAT 09/11/2024 11: 03 AM [employer] INTER[employer]HIP TROPONIN I HIGH-SENSITIVITY SERIES (BASELINE, 2HR, 4HR, 6HR) STAT 09/11/2024 11:03 AM [employer]IP COMPREHENSIVE METABOLIC PANEL STAT 09/11/2024 11:03 AM [employer]HIP CBC WITH AUTO DIFFERENTIAL STAT 09/11/2024 11:03 AM [employer]HIP ECG 12-LEAD STAT 09/11/2024 10:52 AM [employer]IP POCT GLUCOSE DEVICE Routine 09/11/2024 1 0:48 AM [employer]HIP EGFR Routine 09/10/2024 12:26 PM [employer]IP Chronic heart failure with preserved ejection fraction (CMS/HCC) (HCC) PRO B-TYPE NATRIURETIC PEPTIDE Routine 09/10/2024 12:26 PM [employer]HIP Chronic heart failure with preserved ejection fraction (CMS/HCC) (HCC) BASIC METABOLIC PANEL Routine 09/10/2024 12:26 PM [employer]IP Chronic heart failure with preserved ejection fraction (CMS/HCC) (HCC) ECG 12-LEAD Routine 09/10/2024 11:33 AM [employer]IP Chronic heart failure with preserved ejection fraction (CMS/HCC) (HCC) XR SCOLIOSIS AP LAT Schedule Routine, Read Routine (OP Routine) 08/26/2024 11:42 AM [employer]HIP Lumbar spondylosis Chronic bilateral low back pain, unspecified whether sciatica present BASIC METABOLIC PANEL Routine 07/30/2024 12:37 PM [employer]IP High risk medications (not anticoagulants) long-term use BASIC METABOLIC PANEL Routine 07/16/2024 11:34 AM [employer]IP High risk medications (not anticoagulants) long-term use BASIC METABOLIC PANEL Routine 06/24/2024 10:29 AM [employer]IP Acute on chronic systolic heart failure (HCC) HEMOGLOBIN A1C Routine 06/07/2024 8:38 AM CDT LIPID PANEL Routine 06/07/2024 8:38 AM CDT DIABETES FOOT EXAM Routine 11/05/2020 DIABETES EYE EXAM Routine 05/05/2019 from Last 3 Months or Most Recently Relevant to Health Maintenance Results * eGFR (09/14/2024 8:23 AM [employer]HIP) [facility] Signature eGFR 63 >=60 mL/min/1. 73 m2 Comment: Interpretive Data [...] interpretive data was last reviewed 2021. Blood 09/14/2024 8:23 AM [employer]IP 09/14/2024 8:45 AM [employer]ORY INTERNSHIP us Dalila Torres MD LAB BLOOD ORDERABLES Fi nal Result [facility] Department [place] [address] * (ABNORMAL) Basic metabolic panel (09/14/2024 8:23 AM [employer] INTER[employer]HIP) Sodium 140 135 - 145 mmol/L Potassium, pl 4.0 3.3 - 4.9 mmol/L [facility] Chloride 104 97 - 110 mmol/L [facility] CO2 27 22 - 32 mmol/L [facility] Anion gap 9 2 - 15 mmol/L [facility] BUN 28(H) 6 - 25 mg/dL [facility] Creatinine 1.14 0.80 - 1.30 mg/dL [facility] Glucose 108 70 - 199 mg/dL [facility] Comment: Interpretive Data Fasting glucose >/= [...] interpretive data was last revised 2022. Calcium 8.8 8.5 - 10.3 mg/dL [facility] Blood 09/14/2024 8:23 AM [employer]HIP 09/14/2024 8:45 AM [employer]ORY INTERNSHIP us Dalila Torres MD LAB BLOOD ORDERABLES Fi nal Result [facility] Department [place] [address] * (ABNORMAL) eGFR (09/13/2024 9:57 PM [employer] INTERNSHIP) eGFR 49(L) >=60 mL/min/1. 73 m2 Comment: [...] interpretive data was last reviewed 2021. Blood 09/13/2024 9:57 PM [employer]IP 09/13/2024 10:27 PM [employer]HIP us Dalila Torres MD LAB BLOOD ORDERABLES Fi nal Result [facility] [place] [address] * (ABNORMAL) CBC without differential (09/13/2024 9:57 PM [employer]ORY INTERNSHIP) Pathologist [facility] WBC 6.4 3.8 - 9.9 K/cumm Hgb 11.1(L) 13.0 - 17.5 g/dL [facility] Hct 33.4(L) 38.9 - 50.3 % [facility] Plt 152 150 - 400 K/cumm [facility] MPV 11.2 9.1 - 12.3 fL [facility] RBC 3.53(L) 4.30 - 5.80 M/cumm [facility] MCV 94.6 81.3 - 96.4 fL [facility] MCH 31.4 27.1 - 33.3 pg [facility] MCHC 33.2 32.3 - 35.7 g/dL [facility] RDW CV 14.9 11.1 - 14.9 % [facility] RDW SD 52.3(H) 35.7 - 48.1 fL [facility] NRBC abs 0.00 0.00 - 0.01 K/cumm [facility] Blood 09/13/2024 9:57 PM [employer]IP 09/13/2024 10:27 PM ADVISORY INTERNSHIP Dalila Torres MD LAB BLOOD ORDERABLES Fi nal Result [facility] Department [place] [address] * Magnesium (09/13/2024 9:57 PM [employer]) Pathologist [facility] [place] Magnesium 2.1 1.4 - 2.5 mg/dL Blood 09/13/2024 9:57 PM [employer] 09/13/2024 10:27 PM [employer] Dalila Torres MD LAB BLOOD ORDERABLES Fi nal Result [facility] Department [place] [address] * (ABNORMAL) Basic metabolic panel (09/13/2024 9:57 PM [employer]) Pathologist [facility] [place] Sodium 139 135 - 145 mmol/L Potassium, pl 3.7 3.3 - 4.9 mmol/L [facility] Chloride 102 97 - 110 mmol/L [facility] CO2 28 22 - 32 mmol/L [facility] Anion gap 9 2 - 15 mmol/L [facility] BUN 35(H) 6 - 25 mg/dL [facility] Creatinine 1.41(H) 0.80 - 1.30 mg/dL [facility] Glucose 126 70 - 199 mg/dL [facility] Comment: Interpretive Data Fasting glucose >/= [...] interpretive data was last revised 2022. Calcium 8.7 8.5 - 10.3 mg/dL [facility] Blood 09/13/2024 9:57 PM [employer] 09/13/2024 10:27 PM [employer] us Dalila Torres MD LAB BLOOD ORDERABLES Fi nal Result Performing Organization Address [facility]/ZIP Co de Phone Number [facility] Department [place] [address] * (ABNORMAL) eGFR (09/12/2024 8:13 PM [employer]) [facility] eGFR 51(L) >=60 mL/min/1. 73 m2 Comment: Interpretive Data [...] interpretive data was last reviewed 2021. Blood 09/12/2024 8:13 PM [employer] 09/12/2024 8:55 PM [employer] us Dalila Torres MD LAB BLOOD ORDERABLES Fi nal Result [facility] Department [place] [address] * (ABNORMAL) CBC without differential (09/12/2024 8:13 PM [employer]) WBC 7.4 3.8 - 9.9 K/cumm Hgb 11.0(L) 13.0 - 17.5 g/dL [facility] Hct 33.7(L) 38.9 - 50.3 % [facility] Plt 181 150 - 400 K/cumm [facility] MPV 11.1 9.1 - 12.3 fL [facility] RBC 3.60(L) 4.30 - 5.80 M/cumm [facility] MCV 93.6 81.3 - 96.4 fL [facility] MCH 30.6 27.1 - 33.3 pg [facility] MCHC 32.6 32.3 - 35.7 g/dL [facility] RDW CV 14.8 11.1 - 14.9 % [facility] RDW SD 51.2(H) 35.7 - 48.1 fL [facility] NRBC abs 0.00 0.00 - 0.01 K/cumm [facility] Blood 09/12/2024 8:13 PM [employer] 09/12/2024 8:54 PM [employer] Dalila Torres MD LAB BLOOD ORDERABLES Fi nal Result Performing Organization Address [facility]/ZIP Co de Phone Number [facility] [place] [address] * Magnesium (09/12/2024 8:13 PM [employer]) [facility] Magnesium 2.0 1.4 - 2.5 mg/dL Blood 09/12/2024 8:13 PM [employer] 09/12/2024 8:55 PM [employer] Dalila Torres MD LAB BLOOD ORDERABLES Fi nal Result Performing Organization Address [facility] Co de Phone Number [facility] Department [place] [address] * (ABNORMAL) Basic metabolic panel (09/12/2024 8:13 PM [employer]) [facility] Sodium 141 135 - 145 mmol/L Potassium, pl 3.8 3.3 - 4.9 mmol/L [facility] Chloride 106 97 - 110 mmol/L [facility] CO2 26 22 - 32 mmol/L [facility] Anion gap 9 2 - 15 mmol/L [facility] BUN 31(H) 6 - 25 mg/dL [facility] Creatinine 1.37(H) 0.80 - 1.30 mg/dL [facility] Glucose 102 70 - 199 mg/dL [facility] Comment: Interpretive Data Fasting glucose >/= [...] interpretive data was last revised 2022. Calcium 8.4(L) 8.5 - 10.3 mg/dL [facility] Blood 09/12/2024 8:13 PM [employer] 09/12/2024 8:55 PM [employer] us Dalila Torres MD LAB BLOOD ORDERABLES Fi nal Result Performing Organization Address [facility]/ZIP Co de Phone Number [facility] Department [place] [address] * Sodium, urine, random (09/12/2024 12:36 PM [employer]) Sodium, ur 72 mmol/L Comment: Interpretive Data No reference range established. Current interpretive data was last revised 2018. Urine 09/12/2024 12:3 6 PM [employer] 09/12/2024 4:22 PM [employer] us Dalila Torres MD LAB URINE ORDERABLES Fi nal Result [facility] [place] [address] * POCT glucose (09/12/2024 7:52 AM [employer]) Glucose, POC 103 70 - 199 mg/dL Blood 09/12/2024 7:52 AM [employer] 09/12/2024 7:52 AM [employer] Dalila Torres MD LAB POCT ORDERABLES - D EVICE Final Result Performing Organization Address [facility] de Phone Number [facility] [place] [address] * POCT glucose (09/12/2024 6:21 AM [employer]) Glucose, POC 92 70 - 199 mg/dL Blood 09/12/2024 6:21 AM [employer] 09/12/2024 6:21 AM [employer] Dalila Torres MD LAB POCT ORDERABLES - D EVICE Final Result Performing Organization Address [facility] de Phone Number [facility] [place] [address] * POCT glucose (09/12/2024 2:15 AM [employer]) Glucose, POC 178 70 - 199 mg/dL Blood 09/12/2024 2:15 AM [employer] 09/12/2024 2:15 AM [employer] Dalila Torres MD LAB POCT ORDERABLES - D EVICE Final Result Performing Organization Address [facility] de Phone Number [facility] [place] [address] * (ABNORMAL) eGFR (09/11/2024 11:44 PM [employer]) eGFR 54(L) >=60 mL/min/1. 73 m2 Comment: [...] data was last reviewed 2021. Blood 09/11/2024 11:4 4 PM [employer] 09/12/2024 12:17 AM [employer] us Dalila Torres MD LAB BLOOD ORDERABLES Fi nal Result [facility] Department [place] [address] * (ABNORMAL) CBC without differential (09/11/2024 11:44 PM [employer]) WBC 7.1 3.8 - 9.9 K/cumm Hgb 11.5(L) 13.0 - 17.5 g/dL [facility] Hct 34.7(L) 38.9 - 50.3 % [facility] Plt 172 150 - 400 K/cumm [facility] MPV 10.9 9.1 - 12.3 fL [facility] RBC 3.70(L) 4.30 - 5.80 M/cumm [facility] MCV 93.8 81.3 - 96.4 fL [facility] MCH 31.1 27.1 - 33.3 pg [facility] MCHC 33.1 32.3 - 35.7 g/dL [facility] RDW CV 14.9 11.1 - 14.9 % [facility] RDW SD 51.1(H) 35.7 - 48.1 fL [facility] NRBC abs 0.00 0.00 - 0.01 K/cumm [facility] Blood 09/11/2024 11:4 4 PM [employer] 09/12/2024 12:17 AM [employer] Dalila Torres MD LAB BLOOD ORDERABLES Fi nal Result Performing Organization Address [facility] de Phone Number [facility] [place] [address] * Magnesium (09/11/2024 11:44 PM [employer]) [facility] Magnesium 2.1 1.4 - 2.5 mg/dL Blood 09/11/2024 11:4 4 PM [employer] 09/12/2024 12:17 AM [employer] Dalila Torres MD LAB BLOOD ORDERABLES Fi nal Result Performing Organization Address [facility] de Phone Number [facility] Department [place] [address] * (ABNORMAL) Basic metabolic panel (09/11/2024 11:44 PM [employer]) [facility] Sodium 142 135 - 145 mmol/L Potassium, pl 3.5 3.3 - 4.9 mmol/L [facility] Chloride 104 97 - 110 mmol/L [facility] CO2 27 22 - 32 mmol/L [facility] Anion gap 11 2 - 15 mmol/L [facility] BUN 30(H) 6 - 25 mg/dL [facility] Creatinine 1.30 0.80 - 1.30 mg/dL [facility] Glucose 74 70 - 199 mg/dL [facility] Comment: Interpretive Data Fasting glucose >/= [...] interpretive data was last revised 2022. Calcium 8.8 8.5 - 10.3 mg/dL [facility] Blood 09/11/2024 11:4 4 PM [employer] 09/12/2024 12:17 AM [employer] us Dalila Torres MD LAB BLOOD ORDERABLES Fi nal Result Performing Organization Address [facility]/ZIP Co de Phone Number [facility] Department [place] [address] * POCT glucose (09/11/2024 8:14 PM [employer]) Glucose, POC 142 70 - 199 mg/dL Blood 09/11/2024 8:14 PM [employer] 09/11/2024 8:14 PM [employer] us Dalila Torres MD LAB POCT ORDERABLES - D EVICE Final Result Performing Organization Address [facility] Co de Phone Number [facility] Department [place] [address] * POCT glucose (09/11/2024 5:23 PM [employer]) Glucose, POC 91 70 - 199 mg/dL Blood 09/11/2024 5:23 PM [employer] 09/11/2024 5:23 PM [employer] INTERNSHIP us Ave Tai MD LAB POCT ORDERABLES - DEVICE Final Result Performing Organization Address [facility] Co de Phone Number [facility] Department [place] [address] * Troponin I high-sensitivity 4-hour (09/11/2024 3:10 PM [employer]) Trop I hs 13 <=35 ng/L Comment: Interpretive Data For further RUSTnI resources including the diagnostic algorithm and an aid in interpretation, copy and paste this link: https://bjhlab.testcatalog.org/show/hsTrop-1 Current Interpretive Data last revised 2020. Trop I hs delta -1 ng/L [facility] Trop I hs interp Insignificant [facility] Blood 09/11/2024 3:10 PM [employer] 09/11/2024 3:22 PM [employer] us Ricki Ramirez MD LAB BLOOD ORDERABLES Final Result [facility] Department [place] [address] * POCUS Cardiac (09/11/2024 1:58 PM [employer]) Anatomical Region Laterality Modality Other 09/11/2024 1:28 PM [employer] Narrative 09/11/2024 3:02 PM [employer] Performed by: Jose Martin uGevara Cardiac: ?Exam type: ??Diagnostic ?Exam Information: ?Indication(s) for Exam: ?Chest Pain ?Other Indication(s): ??chronic A fib ?Exam Occurence: ?Initial ?Findings ?? : ?Pericardial effusion: ??Absent ?Left ventricle: ??Reduced EF ?Right ventricle: ??Normal ?IVC: ??Not visualized ?Interpretation: ?Reduced LVEF ?Other ??: ??Difficult apical and subxyphoid windows. Electronically signed by Jose Martin Guevara on August at 2:43 PM I have reviewed the images & the resident's interpretation. I agree with the findings. Electronically signed by Joseph Lucas on August at 3:02 PM I have reviewed the images & the resident's interpretation. I agree with the findings. Procedure Note Joseph Lucas MD - 09/11/2024 Performed by: Jose Martin Guevara Cardiac: Exam type: Diagnostic Exam Information: Indication(s) for Exam: Chest Pain Other Indication(s): chronic A fib Exam Occurence: Initial Findings : Pericardial effusion: Absent Left ventricle: Reduced EF Right ventricle: Normal IVC: Not visualized Interpretation: Reduced LVEF Other : Difficult apical and subxyphoid windows. Electronically signed by Jose Martin Guevara on August at2:43 PM I have reviewed the images & the resident's interpretation. I agree withthe findings. Electronically signed by Joseph Lucas on August at3:02 PM I have reviewed the images & the resident's interpretation. I agree withthe findings. us Joseph Lucas MD POCUS ORDERABLES Final Re sult * Troponin I high-sensitivity 2-hour (09/11/2024 1:30 PM [employer]) Trop I hs 14 <=35 ng/L Comment: Interpretive Data For further hscTnI resources including the diagnostic algorithm and an aid in interpretation, copy and paste this link: https://bjhlab.testcatalog.org/show/hsTrop-1 Current Interpretive Data last revised 2020. Trop I hs delta 0 ng/L [facility] Trop I hs interp Insignificant [facility] Blood 09/11/2024 1:30 PM [employer] 09/11/2024 2:03 PM [employer] us Ricki Ramirez MD LAB BLOOD ORDERABLES Final Result [id number] Department [place] [address] * (ABNORMAL) Pro B-type natriuretic peptide (09/11/2024 1:30 PM [employer]) NT-proBNP 1,193(H) <=450 pg/mL Comment: Interpretive Comments: [...] Revised Date: 2018. Blood 09/11/2024 1:30 PM [employer] 09/11/2024 2:04 [address] us [address] De Leon MD LAB BLOOD ORDERABLES Final Result [facility] Department [place] [address] * XR Chest Pa Lateral 2 Views (09/11/2024 11:13 AM [employer]) Anatomical Region Laterality Modality Body, Chest N/A Computed Radiogr aphy 09/11/2024 11:4 4 AM [employer] Impressions 09/11/2024 11:44 AM [employer] Comparison to 12/21/2023. 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 Heart and mediastinum are unchanged. There is no pneumothorax or pleural effusion. Small lung volumes with scarring in the left midlung that is similar to the prior CT. No new focal pulmonary opacity. Electronically signed by: Eric Balbuena M.D. Narrative 09/11/2024 11:44 AM [employer] EXAMINATION: 2 view chest radiograph Procedure Note [...] (baseline, 2hr, 4hr, 6hr) (09/11/2024 11:03 AM [employer]) Trop I hs 14 <=35 ng/L Comment: Interpretive Data For further hscTnI resources including the diagnostic algorithm and an aid in interpretation, copy and paste this link: https://bjhlab.testcatalog.org/show/hsTrop-1 Current Interpretive Data last revised 2020. Blood 09/11/2024 11:0 3 AM [employer] 09/11/2024 11:20 AM [employer] us Joseph Lucas MD LAB BLOOD ORDERABLES Shanna orozco Result [facility] Department [place] [address] * (ABNORMAL) eGFR (09/11/2024 11:03 AM [employer]) eGFR 49(L) >=60 mL/min/1. 73 m2 Comment: [...] reviewed 2021. Blood 09/11/2024 11:0 3 AM [employer] 09/11/2024 11:20 AM [employer] us Joseph Lucas MD LAB BLOOD ORDERABLES Shanna pam Result [facility] Department [place] [address] * Differential, auto (09/11/2024 11:03 AM [employer]) Neutrophil abs 4.9 1.5 - 6.5 K/cumm Imm gran abs 0.0 0.0 - 0.1 K/cumm [facility] Lymphocyte abs 1.4 0.8 - 3.3 K/cumm [facility] Monocyte abs 0.7 0.2 - 0.8 K/cumm [facility] Eosinophil abs 0.1 0.0 - 0.5 K/cumm [facility] Basophil abs 0.0 0.0 - 0.1 K/cumm [facility] Neutrophil pct 67.9 % [facility] Comment: Interpretive Data Percent cell count reference ranges are not reported, since discordance with absolute values may lead to misinterpretation of CBC data. Current Interpretive Data was last revised on 2017. Imm gran pct 0.4 % [facility] Comment: Interpretive Data Percent cell count reference ranges are not reported, since discordance with absolute values may lead to misinterpretation of CBC data. Current Interpretive Data was last revised on 2017. Lymphocyte pct 19.8 % [facility] Comment: Interpretive Data Percent cell count reference ranges are not reported, since discordance with absolute values may lead to misinterpretation of CBC data. Current Interpretive Data was last revised on 2017. Monocyte pct 9.6 % [facility] Comment: Interpretive Data Percent cell count reference ranges are not reported, since discordance with absolute values may lead to misinterpretation of CBC data. Current Interpretive Data was last revised on 2017. Eosinophil pct 1.9 % [facility] Comment: Interpretive Data Percent cell count reference ranges are not reported, since discordance with absolute values may lead to misinterpretation of CBC data. Current Interpretive Data was last revised on 2017. Basophil pct 0.4 % [facility] Comment: Interpretive Data Percent cell count reference ranges are not reported, since discordance with absolute values may lead to misinterpretation of CBC data. Current Interpretive Data was last revised on 2017. Blood 09/11/2024 11:0 3 AM [employer] 09/11/2024 11:20 AM [employer] Joseph Lucas MD LAB BLOOD ORDERABLES Shanna orozco Result [facility] Department [place] [address] * (ABNORMAL) CBC with auto differential (09/11/2024 11:03 AM [employer]) WBC 7.3 3.8 - 9.9 K/cumm Hgb 11.0(L) 13.0 - 17.5 g/dL [facility] Hct 33.2(L) 38.9 - 50.3 % [facility] Plt 175 150 - 400 K/cumm [facility] MPV 10.6 9.1 - 12.3 fL [facility] RBC 3.51(L) 4.30 - 5.80 M/cumm [facility] MCV 94.6 81.3 - 96.4 fL [facility] MCH 31.3 27.1 - 33.3 pg [facility] MCHC 33.1 32.3 - 35.7 g/dL [facility] RDW CV 14.9 11.1 - 14.9 % [facility] RDW SD 51.4(H) 35.7 - 48.1 fL [facility] NRBC abs 0.00 0.00 - 0.01 K/cumm [facility] Blood (Blood, Venous) 09/11/2024 11:03 AM [employer] 09/11/2024 11:20 AM [employer] us Joseph Lucas MD LAB BLOOD ORDERABLES Shanna orozco Result [facility] Department [place] [address] * (ABNORMAL) Comprehensive metabolic panel (09/11/2024 11:03 AM [employer]) Sodium 142 135 - 145 mmol/L Potassium, pl 3.6 3.3 - 4.9 mmol/L [facility] Chloride 102 97 - 110 mmol/L [facility] CO2 28 22 - 32 mmol/L [facility] Anion gap 12 2 - 15 mmol/L [facility] BUN 33(H) 6 - 25 mg/dL [facility] Creatinine 1.40(H) 0.80 - 1.30 mg/dL [facility] Glucose 114 70 - 199 mg/dL [facility] Comment: Interpretive Data Fasting glucose >/= [...] 2022. Calcium 8.9 8.5 - 10.3 mg/dL [facility] Bilirubin, total 0.4 0.1 - 1.2 mg/dL [facility] Protein, pl 6.9 6.5 - 8.5 g/dL [facility] Albumin 3.9 3.5 - 5.0 g/dL [facility] Alk phos 43 40 - 130 Units/L [facility] ALT 13 7 - 55 Units/L [facility] AST 24 10 - 50 Units/L [facility] Blood 09/11/2024 11:0 3 AM [employer] 09/11/2024 11:20 AM [employer] Joseph Lucas MD LAB BLOOD ORDERABLES Shanna l Result Performing Organization Address [facility] Co de Phone Number [facility] Department [place] [address] * ECG 12-LEAD (09/11/2024 10:52 AM [employer]) Narrative [facility] - 09/11/2024 10:52 AM [employer] Hermilo Linares MD ? 09/11/2024 10:55 AM [...] in the ED Hermilo Linares MD 09/11/24 0412 us Joseph Lucas MD ECG ORDERABLES Final Res ult Performing Organization Address [facility] Co de Phone Number [facility] * POCT glucose (09/11/2024 10:48 AM [employer]) Glucose, POC 112 70 - 199 mg/dL Blood 09/11/2024 10:4 8 AM [employer] 09/11/2024 10:48 AM [employer] us Notinfile Unknown LAB POCT ORDERABLES - DEVICE F inal Result [facility] Department [place] [address] * (ABNORMAL) eGFR (09/10/2024 12:26 PM [employer]) eGFR 54(L) >=60 mL/min/1. 73 m2 Comment: [...] reviewed 2021. Blood 09/10/2024 12:2 6 PM [employer] 09/10/2024 1:37 PM [employer] us Rehan Sheth MD LAB BLOOD ORDERABLES F inal Result [facility] Department [place] [address] * (ABNORMAL) Pro B-type natriuretic peptide (09/10/2024 12:26 PM [employer]) NT-proBNP 2,273(H) <=450 pg/mL Comment: Interpretive Comments: [...] Date: 2018. Blood 09/10/2024 12:2 6 PM [employer] 09/10/2024 1:32 PM [employer] us Rehan Sheth MD LAB BLOOD ORDERABLES F inal Result [facility] Department [place] [address] * (ABNORMAL) Basic metabolic panel (09/10/2024 12:26 PM [employer]) Sodium 142 135 - 145 mmol/L Potassium, pl 3.9 3.3 - 4.9 mmol/L [facility] Chloride 104 97 - 110 mmol/L [facility] CO2 28 22 - 32 mmol/L [facility] Anion gap 10 2 - 15 mmol/L [facility] BUN 31(H) 6 - 25 mg/dL [facility] Creatinine 1.29 0.80 - 1.30 mg/dL [facility] Glucose 126 70 - 199 mg/dL [facility] Comment: Interpretive Data Fasting glucose >/= [...] 2022. Calcium 9.2 8.5 - 10.3 mg/dL [facility] Blood 09/10/2024 12:2 6 PM [employer] 09/10/2024 1:32 PM [employer] Rehan Sheth MD LAB BLOOD ORDERABLES F inal Result [facility] Department [place] [address] * ECG 12 lead (09/10/2024 11:33 AM [employer]) Rehan Sheth MD ECG ORDERABLES Edited Result - Final * XR Scoliosis Ap and Lateral (08/26/2024 11:42 AM [employer]) Anatomical Region Laterality Modality Spine N/A Computed Radiogr aphy 08/26/2024 12:3 0 PM [employer] Impressions 08/26/2024 12:30 PM [employer] 1. ??Mild thoracolumbar curvature with leftward coronal and anterior sagittal imbalance Electronically signed by: Mehran Sotomayor MD Narrative 08/26/2024 12:30 PM [employer] EXAMINATION: XR SCOLIOSIS AP AND LATERAL HISTORY: [...] (ABNORMAL) Basic metabolic panel (07/30/2024 12:37 PM [employer]) Glucose 143(H) 65 - 99 mg/dL [facility] Comment: ? Fasting reference interval [...] Calcium 8.9 8.6 - 10.3 mg/dL [facility] Blood 07/30/2024 12:3 7 PM [employer] 07/30/2024 12:38 PM [employer] Rehan Sheth MD LAB BLOOD ORDERABLES F inal Result [facility] [id number] [place] [address] * (ABNORMAL) Basic metabolic panel (07/16/2024 11:34 AM [employer]) Glucose 115 65 - 139 mg/dL [facility] Comment: ? Non-fasting reference interval BUN 29(H) 7 - 25 mg/dL [facility] Creatinine 1.23(H) 0.70 - 1.22 mg/dL [facility] eGFR 58(L) > OR = 60 mL/min/1.7 3m2 [facility] BUN/creat ratio 24(H) 6 - 22 (calc) [facility] Sodium 138 135 - 146 mmol/L [facility] Potassium, pl 4.4 3.5 - 5.3 mmol/L [facility] Chloride 101 98 - 110 mmol/L [facility] CO2 27 20 - 32 mmol/L [facility] Calcium 8.7 8.6 - 10.3 mg/dL [facility] Blood 07/16/2024 11:3 4 AM [employer] 07/16/2024 11:34 AM [employer] Narrative [facility] - 07/16/2024 10:30 PM [employer] INSURANCE VERIFIED FASTING:NO FASTING: NO Rehan Sheth MD LAB BLOOD ORDERABLES F inal Result [facility] [id number] [place] [address] * (ABNORMAL) Basic metabolic panel (06/24/2024 10:29 AM [employer]) Glucose 163(H) 65 - 99 mg/dL [facility] Blood 06/24/2024 10:2 9 AM ADVISORY INTERNSHIP 06/24/2024 10:30 AM ADVISORY INTERNSHIP Rehan Sheth MD LAB BLOOD ORDERABLES F inal Result Performing Organization Address City/[facility]/ZIP Co de Phone Number [facility] [address] [place] [address] * (ABNORMAL) Hemoglobin A1c (06/07/2024 8:38 AM CDT) Pathologist [facility] [place] Hgb A1C 6.1(H) 4.0 - 5.6 % Estimated Average Glucose 128 mg/dL [facility] Comment: The ADA recommends reporting an estimated Average Glucose (eAG) with all Hemoglobin A1c results using the equation derived from a study of 507 normal and diabetic adults. ??Minority populations were underrepresented and children were not included. ?? (Diabetes Care 31:9968-9740, 2008). ??The eAG is not equivalent to a fasting glucose. Blood 06/07/2024 8:38 AM CDT 06/07/2024 9:07 AM CDT Joe Hood MD LAB BLOOD ORDER MAITE Final Result [facility] [address] [facility] [place] [address] * Lipid panel (06/07/2024 8:38 AM CDT) Pathologist [facility] [place] Cholesterol 116 30 - 199 mg/dL Comment: [...] LAB BLOOD ORDER MAITE Final Result OR[facility] [address] [facility] [place] [address] * DIABETES FOOT EXAM (11/05/2020) Diabetic Foot Exam Normal Historical Provider HEALTH MAINTENANCE Final Result * DIABETES EYE EXAM (05/05/2019) Diabetic Eye Exam Normal Historical Provider HEALTH MAINTENANCE Final Result from Last 3 Months or Most Recently Relevant to Health Maintenance Additional Health Concerns Active Problems Noted Date Diagnosed Date Initial Follow-Up Appointment 09/15/2024 Note: Pt hospitalized for SOB. Hx HFpEF (50%), A.Fib, HTN, HLD, s/p bioprosthetic valve replacements x 2, DM, and BPH. Epic risk 17 Knowledge Deficit Concerning CHF 09/15/2024 Infection Onset Date Last Indicated Ring Surveillance Comment:C.auris Ring Surveillance Flag is placed and removed manually by IP. However, if the patient is discharged before their swab is collected, it will remain on a patient's chart for 7 days after discharge in case the patient is re-admitted elsewhere. Pt is undergoing Ring Surveillance for admission to 9200 09/12/2024 09/12/2024 Insurance [employer] CHOICE MEDICARE PPO MEDICARE SOLUTIONS MEDICARE SOLUTIONS Advance Directives For more information, please contact: [phone] Documents on File Type Date Recorded Patient Machine Programmer Expl anation ADVANCE DIRECTIVE 12/27/2023 10:41 PM Jorge Pryor P OWER OF ASSOCIATE PRODUCT MANAGER-MEDICAL ADVANCE DIRECTIVE 12/26/2023 10:38 AM Yazmin Medina POWER OF ASSOCIATE PRODUCT MANAGER-FINANCIAL * Full Code (Latest Code Status on File) Date Activated Date Inactivated Comments 09/11/2024 4:16 PM 09/14/2024 4:22 PM * Full Code Date Activated Date Inactivated Comments 06/06/2024 11:14 PM 06/09/2024 7:57 PM * Full Code Date Activated Date Inactivated Comments 05/20/2024 12:54 AM 05/21/2024 4:51 PM * Full Code Date Activated Date Inactivated Comments 12/20/2023 7:47 AM 12/26/2023 3:23 PM Healthcare Agents on File Name Relationship Healthcare Agent Relationship Communication Jorge Pryor Spouse Health Care Agent [email or web address] Yazmin Carol Daughter First Alternate Health Care Agent [email or web address] Care Teams Salesperson Household Appliances Relationship Specialty Start Date End Date Barry Ralph MD PCP - General Family Practice 05/22/24 Rehan Sheth MD [address] [facility] [address] [place] [address] Consulting Physician Cardiology 09/09/24 Sangita Moore, RN [address] [facility] [address] [place] [address] SHOP Outpatient Millwright Helper 09/15/24
--- OUTSIDE RECORDS SUMMARY | 2024-09-18 03:08 | XMS_ITS | Clinical Summary ---
Author Organization [facility] Address [facility] [place] [address] [place] [address] Care Team Providers Care Director Of Outpatient Services Name Role Phone Robin Nelson MD Primary Care Provider [phone] Allergies No known active allergies Medications warfarin [...] Active METFORMIN 1000 MG tabletIndications :Diabetes mellitus ([facility]) TAKE 1 TABLET BY MOUTH TWICE A DAY 60 tablet 2 1 Active PIOGLITAZONE 15 MG tabletIndications :Type 2 diabetes mellitus with stage 3a chronic kidney disease, without long-term current use of insulin ([facility]) TAKE 1 TABLET BY MOUTH EVERY DAY [...] Date COPD (chronic obstructive pu lmonary disease) ([facility]) 02/02/2020 Diabetes mellitus ([facility]) Hypertension Immunizations Name Administration Dates Next Due Flublok (Quadrivalent) 06/02/2020 Fluzone High Dose - >Age 65 (Prefilled Syringe) 07/02/2018 PFIZER COVID-19 (ORIGINAL FO RMULATION, PURPLE CAP) mRNA, LNP-S, PF, 30 MCG/0.3 ML DOSE 10/23/2020,09/25/2020 Tdap (Generic) 03/08/2019,03/19/2016 Zoster (Zostavax) [address]366 Unt/0.65Ml 03/19/2016 Social History Tobacco Use Types [...] Comments Blood Pressure 155/71 09/19/2021 12:53 PM NATIONAL GUARD MEMBER Pulse 68 09/19/2021 12:53 PM NATIONAL GUARD MEMBER Temperature 35.8 ??C (96.5 ??F) 09/19/2021 11:[address] Respiratory Rate 20 09/19/2021 11:03 AM NATIONAL GUARD MEMBER Oxygen Saturation 95% 09/19/2021 12:53 PM NATIONAL GUARD MEMBER Inhaled Oxygen Concentration - - Weight 113.4 kg (250 lb) 09/15/2021 2:17 PM NATIONAL GUARD MEMBER Height 182.9 cm (6') 09/15/2021 2:17 PM NATIONAL GUARD MEMBER Body Mass Index 33.91 09/15/2021 2:17 PM NATIONAL GUARD MEMBER Plan of Treatment Health Maintenance Due Date [...] Td or Tdap) 03/08/2029 03/08/2019, 03/19/2016 Meningococcal B Vaccine Aged Out No l onger eligible based on patient's age to complete this topic Meningococcal Vaccine Aged Out No miriam michael eligible based on patient's age to complete this topic RSV Immunizations Under 20 Months Aged Out No longer eligible b ased on patient's age to complete this topic Medical Devices Implanted Type Area Relationship Mgr Device Identifier Shelf Expiration Date Model / Serial / Lot Intraocular Lens Implanted:Qty: 1 on 09/19/2021 by Daren Ralph MD at [facility] Left: Eye 04/14/2023 [id number] / [id number] / Procedures Procedure Name Priority Date/Time Associated Diagnosis Comments HEMOGLOBIN, GLYCOSYLATED Routine 07/05/2020 Type 2 diabetes mellitus with stage 3a chronic kidney disease, without long-term current use of insulin ([facility]) LIPID PANEL Routine 02/02/2020 11:47 AM CDT Dyslipidemia from Last 3 Months or Most Recently Relevant to Health Maintenance Results * HEMOGLOBIN, GLYCOSYLATED (07/05/2020) B A1C 8.2 % [facility] ([address] [facility] [place] 07/05/2020 Collette Stockton MD LABORATORY Final Result [facility] ([address] [facility]) [place] [address] [place] [address], * (ABNORMAL) LIPID PANEL (02/02/2020 11:47 AM CDT) Pathologist [facility] CHOLESTEROL 123 <200 mg/dL [facility] HDL 37(L) > OR = 40 mg/dL [facility] TRIGLYCERIDES 237(H) <150 mg/dL [facility] Comment: If a non-fasting specimen was collected, consider repeat triglyceride testing on a fasting specimen if clinically indicated. Amrit et al. J. of Clin. Lipidol. 2015;9:129-169. LDL (CALCULATED) 56 mg/dL (calc) [facility] Comment: Reference range: <100 Desirable range <100 mg/dL for primary prevention; ?? <70 mg/dL for patients with CHD or diabetic patients with > or = 2 CHD risk factors. LDL-C is now calculated using the Herber-Eduard calculation, which is a validated novel method providing better accuracy than the Friedewald equation in the estimation of LDL-C. Herber SS et al. SADE. 2013;310(19): 2190-8293 (http://education.MapMyFitness.[employer]/faq/IAI245) CHOL/HDL RATIO 3.3 <5.0 (calc) [facility] NON HDL CHOLESTEROL 86 <130 mg/dL (calc) [facility] Comment: For patients with diabetes plus 1 major ASCVD risk factor, treating to a non-HDL-C goal of <100 mg/dL (LDL-C of <70 mg/dL) is considered a therapeutic option. 02/02/2020 11:4 7 AM CDT 02/03/2020 3:01 AM CDT Narrative Resulting Agency Comment Performing Organization Information: ?Site ID: [email or web address] ?Name: [facility] ?Address: [address] [address] ?Director: Siva Roman D.O., MPH us Collette Stockton MD LABORATORY Final Result [facility] [address] [address], from Last 3 Months or Most Recently Relevant to Health Maintenance Insurance [facility] Care Teams Director Of Outpatient Services Relationship Specialty Start Date End Date Robin Nelson MD [address] [place] [address] PCP - General INTERNAL MEDICINE 08/10/21
--- OUTSIDE RECORDS SUMMARY | 2024-09-18 03:08 | XMS_ITS ---
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 09/10/2024 Internal carotid artery stenosis, right 06/12/20 Chronic heart failure with p reserved ejection fraction ([facility]) 06/12/2024 Stage 2 chronic kidney disease 06/12/2024 Thrombocytopenia 06/12/2024 Bilateral leg weakness 06/06/2024 NSTEMI (non-ST elevated myocardial infarction) ( [facility]) 05/20/2024 Assessment & Plan (05/21/2024 11:10 AM CDT): Repeat [facility] on 05/20/2024 showed: 60-70% lesion to mid LAD (with a positive IFR of 0.78) and a 90% lesion lesion to ostial circ; RCA with a known LIVING SUPERVISOR (angiography not performed). -s/p Successful PCI to [...] Plan (05/20/2024 11:34 AM CDT): Went to [facility] 05/17 for SOB, new 2L O2 requirement - OSH workup: Trp 1.95>5.1>10, proBNP 6800, CXR w/ mild interstitial edema - OSH [facility] 05/19 w/ L main widely patent, LAD proximal body 80% stenosis, LAD stent w/ moderate ISR, L cx w/ 95% stenosis in proximal body, OM branches w/ mild disease, RCA is LIVING SUPERVISOR in mid body w/ L to R collaterals - cath films uploaded - OSH TTE reportedly w/ EF 50%, AV prosthesis w/o abnormal gradients - trop here 7,8520, repeat pending - currently denies chest pain or pressure, sob improving - PCI today - continue heparin drip - continue asa, coreg, atorvastatin 80mg - telemetry Assessment & Plan (05/20/2024 1:02 AM CDT): Went to [facility] 05/17 for SOB, new 2L O2 requirement - OSH workup: Trp 1.95>5.1>10, proBNP 6800, CXR w/ mild interstitial edema - OSH [facility] 05/19 w/ L main widely patent, LAD proximal body 80% stenosis, LAD stent w/ moderate ISR, L cx w/ 95% stenosis in proximal body, OM branches w/ mild disease, RCA is LIVING SUPERVISOR in mid body w/ L to R [...] Assessment & Plan (05/21/2024 10:58 AM CDT): [facility] 05/17 for SOB, on 3.5L now [...] Assessment & Plan (05/20/2024 11:50 AM CDT): [facility] 05/17 for SOB, on 3.5L now [...] Assessment & Plan (05/20/2024 1:00 AM CDT): [facility] 05/17 for SOB, on 2L now - [...] salt diet Acute on chronic heart failure ([facility]) 024 Assessment & Plan (05/21/2024 10:56 AM [...] benefi Assessment & Plan (07/04/2024 1:02 PM SCALE AND SKIP CAR OPERATOR): He may just be symptomatic from his [...] Assessment & Plan (03/17/2024 1:48 PM CDT): Line Erector stenosis and 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 Still [...] without contrast demonstrated no additional strokes and BRISYEDA or MCA territory. Spinal MRI without any [...] stenosis. Assessment & Plan (07/04/2024 1:03 PM SCALE AND SKIP CAR OPERATOR): Failed LMBB. Assessment & Plan (04/23/2024 5:41 [...] Encounter for Medicare annual wellness exam 05/20 it integration architect (current) use of anticoagulants [Z79.0 1] 03/27/2018 Atrial fibrillation ([facility]) [I48.91] 8 Overview (09/04/2018): Dr. Sheth helps [...] quiescent Assessment & Plan (09/04/2018 10:33 AM SCALE AND SKIP CAR OPERATOR): COPD is unchanged. COPD information handout given. [...] to PT - wants to go to [facility]. Trial robaxin. Flexeril on med list but [...] no Assessment & Plan (10/01/2019 10:35 AM SCALE AND SKIP CAR OPERATOR): S2 makes a wonderfully crisp snap w/o any regurge Gastroesophageal reflux disease 09/17/2014 Tussive syncope 08/25/2014 Syncope and collapse 08/21/2014 Syncope 08/21/2014 Type 2 diabetes mellitus 07/10/2014 Overview (05/13/2021): Was on levemir but stopped 2015 then on trulicity so on metformin ALONE We had better control w/ Jardiance -since he has been w/ Dr Stockton [id number] has been on Actose and metformin- Off [...] (12/20/2023 9:28 AM CDT): Chronic. Maintains on glipizide Mounjaro at home with plan to hold these [...] heart- Assessment & Plan (10/01/2019 10:30 AM SCALE AND SKIP CAR OPERATOR): His A1C has crept to 7.5% Admits [...] covered Assessment & Plan (09/04/2018 10:42 AM SCALE AND SKIP CAR OPERATOR): Diabetes is worsening. Continue current treatment regimen. Reminded to bring in blood sugar diary at next visit. Dietary recommendations for ADA diet. Regular aerobic exercise. Discussed foot care. Reminded to get yearly retinal exam. Diabetes will be reassessed in 3 months. Given his financial concerns my advice is to use food as Voxy medicine Obesity with body mass index 30 or greater 07/09 Generalized anxiety disorder 07/09/2014 Assessment & Plan (10/01/2019 10:32 AM SCALE AND SKIP CAR OPERATOR): He gets along nicely w/ a low [...] pressure will be reassessed in 3 months. Additional Health Concerns Active Problems Noted Date [...] Surveillance for admission to 9200 09/12/2024 09/12/2024 Goals Goal Patient Goal Type Associated Problems Recent Progress Patient-Stated? Author CCM Chronic Pain Care Plan Chronic Care Management Improving( 10:49 AM SCALE AND SKIP CAR OPERATOR) Nenita Sanchez, RN Note: Problem: Chronic [...] to baseline Care Plan Initial Follow-Up Appointment Sangita Sylvester, RN Note: Pt has an appointment with PCP next week and either he or his will drive to appointment. Patient will be knowledgeable about CHF and how to respond to exacerbations at home Care Plan Knowledge Deficit Concerning CHF No Sangita Moore, RN Note: Inst daily weights to monitor [...] sugars jasmeet while having nausea and vomiting. Interventions Care Plan Interventions Intervention Entry Date Outcome Educate when to notify physician or CM of abnormal readings 09/15/2024 Educate on red flag symptoms (eg: edema, chest pain, heart palpitations, SOB, weight gain) and how to intervene when these happen 09/15/2024 Educate patient that notifying physician or CM of worsening condition can result in medication changes that can prevent a full-blown exacerbation and hospitalization 09/15/2024 Educate on daily management and self-care related to CHF (eg: blood pressure checks, examining legs for swelling, performing daily weights, low-sodium diet) 09/15/2024 Follow up with patient 2 days after Post Hospital Visit office visit to ensure understanding of changes and follow-up plan 09/15/2024 Coordinate with patient/caregiver(s) to ensure patient is able to keep scheduled appointment 09/15/2024 Address any barriers for keeping scheduled appointment 09/15/2024 Ensure Pt has follow-up scheduled within 7 days of discharge 09/15/2024 Related Goals and Interventions Goal Associated Intervent ions Patient will have kept initi al appointment and will show signs of improvement to baseline Follow up with patient 2 days after Post Hospital Visit office visit to ensure understanding of changes and follow-up plan; Coordinate with patient/caregiver(s) to ensure patient is able to keep scheduled appointment; Address any barriers for keeping scheduled appointment; Ensure Pt has follow-up scheduled within 7 days of discharge Patient will be knowledgeabl e about CHF and how to respond to exacerbations at home Educate when to notify physician or CM of abnormal readings; Educate on red flag symptoms (eg: edema, chest pain, heart palpitations, SOB, weight gain) and how to intervene when these happen; Educate patient that notifying physician or CM of worsening condition can result in medication changes that can prevent a full-blown exacerbation and hospitalization; Educate on daily management and self-care related to CHF (eg: blood pressure checks, examining legs for swelling, performing daily weights, low-sodium diet)
--- OUTSIDE RECORDS SUMMARY | 2024-09-18 03:08 | XMS_ITS | Encounter Summary ---
Author Organization [facility] Healthcare Address [address] [place] [address] Care Team Providers Care Brimming Machine Operator Name Role Phone Barry Ralph MD Primary Care Provider [phone] Barry Rlaph MD Primary Care Provider [phone] Rosalee Crowder DRIVER/REFUSE COLLECTOR Unavailable Rehan Sheth MD Unavailable Sangita Moore RN Unavailable Encounter Details Date Type Department Care Team (Late st Contact Info) Description 02/26/2024 Telephone [facility] [address] [facility] [address] [place] [address] Aleksander Shankar MD [address] [place] [address] Social History Tobacco Use Types Packs/Day Years Used Date Smoking Tobacco: Never Smokeless Tobacco: Never [facility] Utilities Answer Date Recorded In the past 12 months has th e electric, gas, oil, or water company threatened to shut off services in your [...] 01/01/2024 How often do you attend chur ch or anabaptism services? More than 4 times per year 01/01/2024 Do you belong to any clubs o r organizations such as baptist groups, unions, fraternal or athletic groups, or [...] staff should administer the PHQ-9) 0 05/13/2021 [facility] [place] of Occupat ional Health - Occupational Stress [...] place to sleep or slept in a fpc (including now)? No 01/01/2024 Personal Safety Answer Date Recorded Have you ever been in or are you currently in a harmful physical or emotional relationship or is someone making you feel afraid or unsafe? Denies 12/19/2023 Sex and Gender Information Value Date Recorded Sex Assigned at Not on file Legal Sex Male 8:23 PM DIRECTOR OF OCCUPATIONAL THERAPY Gender Identity Not on file Sexual Orientation Not on file documented as of this encounter Plan of Treatment Not on file documented as of this encounter Goals Goal Patient Goal Type Associated Problems Recent Progress Patient-Stated? Author CCM Chronic Pain Care Plan Chronic Care Management Improving( 10:49 AM DIRECTOR OF OCCUPATIONAL THERAPY) No Nenita Santiago, RN Note: Problem: Chronic Pain Goals: 1. [...] Surveillance 05/19/2024 05/19/2024 05/26/2024 3:05 AM CDT Ring Surveillance Comment:C.auris Ring Surveillance Flag is placed and removed manually by IP. However, if the patient is discharged before their swab is collected, it will remain on a patient's chart for 7 days after discharge in case the patient is re-admitted elsewhere. Pt is undergoing Ring Surveillance for admission to 92 09/12/2024 09/12/2024 documented as of this encounter Care Teams Brimming Machine Operator Relationship Specialty Start Date End Date Barry Ralph MD PCP - General Family Practice 10/20/22 05/20/24 Barry Ralph MD PCP - General Family Practice 05/22/24 Rosalee Crowder, [facility] [address] [facility] ([facility] Mailstop [phone] [place] [address] SHOP Outpatient Material Reprocessing Associate 05/22/24 06/19/24 Rehan Sheth MD [address] [facility] [address] [place] [address] Consulting Physician Cardiology 09/09/24 Sangita Moore, RN [address] [facility] [address] [place] [address] SHOP Outpatient Material Reprocessing Associate 09/15/24 documented as of this encounter
--- OUTSIDE RECORDS SUMMARY | 2024-09-18 03:08 | XMS_ITS | Clinical Summary ---
Author Organization [facility] Address [address] [place] [address] Care Team Providers Care Starch Mangle Tender Name Role Phone Barry Ralph MD Primary Care Provider [phone] Rehan Sheth MD Unavailable Sangita Moore RN Unavailable [phone] Allergies No known active allergies Medications albuterol HFA (PROVENTIL HFA,VENTOLIN HFA,PROAIR HFA) 90 mcg/actuation inhaler Inhale 2 puffs as needed for shortness of breath 015 Active True Metrix Glucose Meter kit USE DIRECTED 1 kit 021 Active lancets (OneTouch Delica Plus Lancet) 30 gauge miscIndications:Ty pe 2 diabetes mellitus with hyperosmolarity without coma, without long-term current use of insulin ([facility]) ([facility]) Use to check blood sugar 3x daily 300 each 2 Active blood glucose diagnostic (True Metrix Glucose Test Strip) stripIndications:T ype 2 diabetes mellitus with hyperosmolarity without coma, without long-term current use of insulin ([facility]) ([facility]) TEST BLOOD SUGAR EVERY DAY 100 strip 3 Active DropSafe Alcohol Prep Pads pads, medicated APPLY TOPICALLY TWICE DAILY 100 each 11 Active Additional Information Patient not taking.Reported on 10/23/2022 amLODIPine (NORVASC) 10 mg tablet Take 1 tablet (10 mg total) by mouth daily 90 tablet 3 Active PARoxetine (PAXIL) 20 mg tablet Take 1 tablet (20 mg total) by mouth every morning 90 tablet 3 Active methocarbamoL (ROBAXIN) 500 mg tabletIndications: Chronic [...] type 09/11/2024 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 09/10/2024 Internal carotid artery stenosis, right 06/12/20 Chronic heart failure with p reserved ejection fraction ([facility]/HCC) 06/12/2024 Stage 2 chronic kidney disease 06/12/2024 Thrombocytopenia 06/12/2024 Bilateral leg weakness 06/06/2024 NSTEMI (non-ST elevated myocardial infarction) ( [facility]/HCC) 05/20/2024 Assessment & Plan (05/21/2024 11:10 AM CDT): Repeat C on 05/20/2024 showed: 60-70% lesion to mid LAD (with a positive IFR of 0.78) and a 90% lesion lesion to ostial circ; RCA with a known CARPET FLOOR LAYER APPRENTICE (angiography not performed). -s/p Successful PCI to [...] Plan (05/20/2024 11:34 AM CDT): Went to [facility] 05/17 for SOB, new 2L O2 requirement - OSH workup: Trp 1.95>5.1>10, proBNP 6800, CXR w/ mild interstitial edema - OSH [facility] 05/19 w/ L main widely patent, LAD proximal body 80% stenosis, LAD stent w/ moderate ISR, L cx w/ 95% stenosis in proximal body, OM branches w/ mild disease, RCA is CARPET FLOOR LAYER APPRENTICE in mid body w/ L to R collaterals - cath films uploaded - OSH TTE reportedly w/ EF 50%, AV prosthesis w/o abnormal gradients - trop here 7,6561, repeat pending - currently denies chest pain or pressure, sob improving - PCI today - continue heparin drip - continue asa, coreg, atorvastatin 80mg - telemetry Assessment & Plan (05/20/2024 1:02 AM CDT): Went to [facility] 05/17 for SOB, new 2L O2 requirement - OSH workup: Trp 1.95>5.1>10, proBNP 6800, CXR w/ mild interstitial edema - OSH [facility] 05/19 w/ L main widely patent, LAD proximal body 80% stenosis, LAD stent w/ moderate ISR, L cx w/ 95% stenosis in proximal body, OM branches w/ mild disease, RCA is CARPET FLOOR LAYER APPRENTICE in mid body w/ L to R [...] Assessment & Plan (05/21/2024 10:58 AM CDT): [facility] 05/17 for SOB, on 3.5L now - OSH wokrup: CXR w/ pulmonary edema, TTE w/ stable EF and AV prosthesis w/o abnormal gradients - mild YUSEF without crackles on exam at time of admission - NT-proBNP 8,388 - transition to PO lasix 40mg daily - Off O2, remains stable. - plan to d/c home later today. Assessment & Plan (05/20/2024 11:50 AM CDT): [facility] 05/17 for SOB, on 3.5L now - [...] Assessment & Plan (05/20/2024 1:00 AM CDT): [facility] 05/17 for SOB, on 2L now - [...] benefi Assessment & Plan (07/04/2024 1:02 PM GREETING CARD MAKER): He may just be symptomatic from his [...] Assessment & Plan (03/17/2024 1:48 PM CDT): Lens Grinder Apprentice stenosis and 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 Still [...] stenosis. Assessment & Plan (07/04/2024 1:03 PM GREETING CARD MAKER): Failed LMBB. Assessment & Plan (04/23/2024 5:41 [...] Encounter for Medicare annual wellness exam 05/20 [facility] (current) use of anticoagulants [Z79.0 1] 03/27/2018 Atrial fibrillation ([facility]) [I48.91] 8 Overview (09/04/2018): Dr. Sheth [...] quiescent Assessment & Plan (09/04/2018 10:33 AM GREETING CARD MAKER): COPD is unchanged. COPD information handout given. [...] to PT - wants to go to [facility]. Trial robaxin. Flexeril on med list but [...] no Assessment & Plan (10/01/2019 10:35 AM GREETING CARD MAKER): S2 makes a wonderfully crisp snap w/o any regurge Gastroesophageal reflux disease 09/17/2014 Tussive syncope 08/25/2014 Syncope and collapse 08/21/2014 Syncope 08/21/2014 Type 2 diabetes mellitus 07/10/2014 Overview (05/13/2021): Was on levemir but stopped 2015 then on trulicity so on metformin ALONE We had better control w/ Jardiance -since he has been w/ Dr Stockton [phone] has been on Actose and metformin- Off [...] 9:28 AM CDT): Chronic. Maintains on glipizide, Mounjaro at home with plan to hold [...] heart- Assessment & Plan (10/01/2019 10:30 AM GREETING CARD MAKER): His A1C has crept to 7.5% Admits [...] covered Assessment & Plan (09/04/2018 10:42 AM GREETING CARD MAKER): Diabetes is worsening. Continue current treatment regimen. [...] 07/09/2014 Assessment & Plan (10/01/2019 10:32 AM GREETING CARD MAKER): He gets along nicely w/ a low [...] Care Team Description 09/17/2024 SHOP/CHAP Subsequent Outreach [facility] OP CASE MANAGEMENT [address] [place] [address] Sangita Moore, RN 09/15/2024 SHOP/CHAP Initial Outreach [facility] CASE [facility]NAGEMENT [address] [place] [address] Sangita Moore RN 09/15/2024 Telephone [facility] Cardiology [address] [facility] [address] [facility] 8th [place] [address] [place] [phone] Rehan Sheth MD f/u orders 09/15/2024 SHOP/CHAP Initial Eligibility Review [facility] CASE [facility]NAGEMENT [address] [place] [address] Sangita Moore, RN 09/11/2024 12:49 PM GREETING CARD MAKER - 09/14/2024 12:22 PM GREETING CARD MAKER Hospital Encounter [facility] [address] [facility] [place] [address] Joseph Lucas MD [place], MD Melissa King Natalie Marie, MD Chest pain, unspecified type (Primary Dx) Discharge Disposition: Discharge to home or self care 09/11/2024 Documentation [facility] Cardiology [address] [place] [address] Advanced Medicine 8th [place] [address] [place] [address] Rehan Sheth MD 09/11/[address] [place] [address] Rehan Sheth MD Symptoms update 09/10/2024 12:25 PM GREETING CARD MAKER Lab [facility] ([facility]) [address] [place], [place] [phone] Chronic heart failure with preserved ejection fraction (CMS/HCC) (HCC) 09/10/2024 11:15 AM GREETING CARD MAKER Office Visit [address] [place] [address] Rehan Sheth MD Chronic heart failure with preserved ejection fraction (CMS/HCC) (HCC) (Primary Dx); Coronary artery disease involving rappahannock coronary artery of rappahannock heart with angina pectoris (HCC) 09/10/[address] Advanced [address] [place] [address] Rehan Sheth MD Cardiac Clearance request 09/10/[address] [place] [address] Rehan Sheth MD Chest symptoms 09/09/[address] [place] [address] Rehan Sheth MD Samples/and report of ER eval 09/01/2024 Telephone [facility] Neurosurgery [address] [facility] Medical Office Building [address] [place] [address] Clayton Robertson DO 08/26/2024 12:30 PM GREETING CARD MAKER Office Visit [facility] Neurosurgery [address] [facility] Medical Office Building [address] [place] [address] Clayton Robertson DO 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) 08/26/2024 11:32 AM GREETING CARD MAKER - 08/26/2024 11:59 PM GREETING CARD MAKER Hospital Encounter [facility] [address] [facility] [address] [place] [address] Lumbar spondylosis; Chronic bilateral low back pain, unspecified whether sciatica present Discharge Disposition: Discharge to home or self care 08/06/2024 Orders Only [facility] Neurosurgery [facility] Office [facility] [address] [place] [address] Clayton Robertson DO Lumbar spondylosis (Primary Dx); Chronic bilateral low back pain, unspecified whether sciatica present 07/04/2024 10:37 AM GREETING CARD MAKER - 07/04/2024 11:59 PM GREETING CARD MAKER Hospital Encounter [facility] [address] [place] [address] Aleksander Shankar MD 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); Sacroiliac joint pain; Lumbar spondylosis Discharge Disposition: Discharge to home or self care 06/26/2024 Orders Only [facility]iology [address] [place] [address] [place] [phone] Naila Cortez RN High risk medications (not anticoagulants) long-term use (Primary Dx) 06/19/2024 SHOP/CHAP Subsequent Outreach [facility] OP CASE MANAGEMENT [address] [place] [id number] Rosalee Crowder, SKIN INSTALLER from Last 3 Months Immunizations Name Administration [...] 03/19/2016 Surgical History Surgery Date Site/Laterality Comments MI LASER VAPORIZATION OF PROSTATE FOR URINE FLOW Laser Vaporization With Transurethral Resection Of Prostate - (Added by TW Conv) MI RPLCMT PROST AORTIC VALVE OPEN XCP HOMOGRF/STENT [...] Tobacco: Never Tobacco Cessation:Counseling Given: Not Answered [facility] Utilities Answer Date Recorded In the past [...] week 09/15/2024 How often do you attend chur ch or restorationism services? More than 4 times per year 09/15/2024 Do you belong to any clubs o r organizations such as taoist groups, unions, fraternal or athletic groups, or [...] Date Recorded PHQ-2 Total Score 0 09/12/2024 [facility] - [...] place to sleep or slept in a chcf (including now)? No 01/01/2024 Housing Stability Vital Sign Answer Deangelo e Recorded In the last 12 months, was t here a time when you were not able to pay the mortgage or rent on time? No 09/15/2024 In the past 12 months, how m any times have you moved where you were living? 1 09/15/2024 At any time in the past 12 m [facility], were you homeless or living in a chcf (including now)? No 09/15/2024 Personal Safety Answer Date Recorded Have you ever been in or are you currently in a harmful physical or emotional relationship or is someone making you feel afraid or unsafe? Denies 09/11/2024 Sex and Gender Information Value Date Recorded Sex Assigned at Not on file Legal Sex Male 8:23 PM GREETING CARD MAKER Gender Identity Not on file Sexual Orientation Not on file Obstetrics History Last Filed Vital Signs Vital Sign Reading Time Taken Comments Blood Pressure 133/57 09/14/2024 7:33 AM GREETING CARD MAKER Pulse 64 09/14/2024 7:33 AM GREETING CARD MAKER Temperature 36.8 ??C (98.2 ??F) 09/14/2024 7:33 AM CS T Respiratory Rate 18 09/14/2024 7:33 AM GREETING CARD MAKER Oxygen Saturation 95% 09/14/2024 7:33 AM GREETING CARD MAKER Inhaled Oxygen Concentration - - Weight 100.6 kg (221 lb 12.8 oz) 09/14/2024 4:49 AM GREETING CARD MAKER Height 182.9 cm (6') 09/11/2024 4:35 PM GREETING CARD MAKER Body Mass Index 30.08 09/11/2024 4:35 PM GREETING CARD MAKER Plan of Treatment Health Maintenance Due Date Last Done Comments Albumin Creatinine Ratio, Urine 1940 Hepatitis B Screening 1958 Zoster Vaccine (2 of 3) 05/14/2016 03/19/2016 Dilated Eye Exam 05/05/2020 05/05/2019 Foot Exam 11/05/2021 11/05/2020, 06/04/2019 Well Visit 65+ 11/05/2021 11/05/2020, 06/04/2019 Covid-19 Vaccine (2023-2 5 season) 2024 05/16/2022, 10/23/2020, 09/25/2020 Hemoglobin A1C 12/06/2024 06/07/2024, 0804/2022, 11/10/2021, Additional history exists Lipid Panel 06/07/2025 06/07/2024, 1008/2023, 11/05/2020, Additional history exists Depression Screening 09/11/2025 09/11/2024, 05/13/2021, 11/05/2020, Additional history exists Fall Risk Assessment 09/14/2025 09/14/2024, 11/05/2020, 06/04/2019 eGFR 09/14/2025 09/14/2024, 08/21, 09/12/2024, Additional history exists DTaP/Tdap/Td Vaccine (5 - Td or Tdap) 05/05/2029 05/05/2019, 03/08/2019, 02/24/2019, Additional history exists Pneumococcal vaccine 65+ Completed 06/04/2019, 06/21 Influenza Vaccine Completed 09/12/2024, , 06/02/2020, Additional history exists Goals Goal Patient Goal Type Associated Problems Recent Progress Patient-Stated? Author CCM Chronic Pain Care Plan Chronic Care Management Improving( 10:49 AM GREETING CARD MAKER) No Nenita Santiago, RN Note: Problem: Chronic [...] and vomiting. Medical Devices Implanted Type Area Director Electrical Engineering Device Identifier Shelf Expiration Date Model / Serial / Lot [employer]um[employer] Medical Branden Angio-Seal Vip Bondek-Plus 8fr .038in 70cm Hemostatic Latex Free [id number] - [id number] - [id number] Implanted:Qty : 1 on 05/20/2024 by Papo Rascon MD at [facility] Collagen Right: Common Femoral Artery Terum[employer] Medical Branden 12/10/2024 [id number] / [id number] / [id number] Prosthetic Valve Prosthetic Valve Heart Description:Heart Valve Medtronic Card Vasc Surgery 4.0 X 12mm [place] Rx Coronary Stent [id number] - [id number] Implanted:Qty : 1 on 05/20/2024 by Vitor Pedroza MD at [facility] Stent N/A: Circumflex Coronary Artery Medtronic Card Vasc Surgery 01/11/2027 [id number] / [id number] / [id number] Medtronic Card Vasc Surgery 4.0 X 12mm [place] Flathead Rx Coronary Stent [id number] - [id number] - [id number] Implanted:Qty : 1 on 05/20/2024 by Vitor Pedroza MD at [facility] Stent Left: Anterior Descending Cornary Artery Medtronic Card Vasc Surgery 11/14/2026 [id number] / [id number] / [id number] Procedures Procedure Name Priority Date/Time Associated Diagnosis Comments EGFR STAT 09/14/2024 8:23 AM GREETING CARD MAKER BASIC METABOLIC PANEL STAT 09/14/2024 8:23 AM GREETING CARD MAKER EGFR Routine 09/13/2024 9:57 PM GREETING CARD MAKER CBC WITHOUT DIFFERENTIAL Routine 09/13/2024 9:57 PM GREETING CARD MAKER MAGNESIUM Routine 09/13/2024 9:57 PM GREETING CARD MAKER BASIC METABOLIC PANEL Routine 09/13/2024 9:57 PM GREETING CARD MAKER EGFR Routine 09/12/2024 8:13 PM GREETING CARD MAKER CBC WITHOUT DIFFERENTIAL Routine 09/12/2024 8:13 PM GREETING CARD MAKER MAGNESIUM Routine 09/12/2024 8:13 PM GREETING CARD MAKER BASIC METABOLIC PANEL Routine 09/12/2024 8:13 PM GREETING CARD MAKER SODIUM, URINE, RANDOM Routine 09/12/2024 12:36 PM GREETING CARD MAKER POCT GLUCOSE DEVICE Routine 09/12/2024 7 :52 AM GREETING CARD MAKER POCT GLUCOSE DEVICE Routine 09/12/2024 6 :21 AM GREETING CARD MAKER POCT GLUCOSE DEVICE Routine 09/12/2024 2 :15 AM GREETING CARD MAKER EGFR Routine 09/11/2024 11:44 PM GREETING CARD MAKER CBC WITHOUT DIFFERENTIAL Routine 09/11/2024 11:44 PM GREETING CARD MAKER MAGNESIUM Routine 09/11/2024 11:44 PM GREETING CARD MAKER BASIC METABOLIC PANEL Routine 09/11/2024 11:44 PM GREETING CARD MAKER POCT GLUCOSE DEVICE Routine 09/11/2024 8 :14 PM GREETING CARD MAKER POCT GLUCOSE DEVICE Routine 09/11/2024 5 :23 PM GREETING CARD MAKER TROPONIN I HIGH-SENSITIVITY 4-HOUR Timed 09/11/2024 3:10 PM GREETING CARD MAKER POCUS CARDIAC 09/11/2024 1:58 PM GREETING CARD MAKER PRO B-TYPE NATRIURETIC PEPTIDE STAT 09/11/2024 1:30 PM GREETING CARD MAKER TROPONIN I HIGH-SENSITIVITY 2-HOUR Timed 09/11/2024 1:30 PM GREETING CARD MAKER XR CHEST PA LATERAL 2 VIEWS ED 09/11/2024 11:13 AM GREETING CARD MAKER EGFR STAT 09/11/2024 11:03 AM GREETING CARD MAKER DIFFERENTIAL AUTO STAT 09/11/2024 11: 03 AM GREETING CARD MAKER TROPONIN I HIGH-SENSITIVITY SERIES (BASELINE, 2HR, 4HR, 6HR) STAT 09/11/2024 11:03 AM GREETING CARD MAKER COMPREHENSIVE METABOLIC PANEL STAT 09/11/2024 11:03 AM GREETING CARD MAKER CBC WITH AUTO DIFFERENTIAL STAT 09/11/2024 11:03 AM GREETING CARD MAKER ECG 12-LEAD STAT 09/11/2024 10:52 AM GREETING CARD MAKER POCT GLUCOSE DEVICE Routine 09/11/2024 1 0:48 AM GREETING CARD MAKER EGFR Routine 09/10/2024 12:26 PM GREETING CARD MAKER Chronic heart failure with preserved ejection fraction (CMS/HCC) (HCC) PRO B-TYPE NATRIURETIC PEPTIDE Routine 09/10/2024 12:26 PM GREETING CARD MAKER Chronic heart failure with preserved ejection fraction (CMS/HCC) (HCC) BASIC METABOLIC PANEL Routine 09/10/2024 12:26 PM GREETING CARD MAKER Chronic heart failure with preserved ejection fraction (CMS/HCC) (HCC) ECG 12-LEAD Routine 09/10/2024 11:33 AM GREETING CARD MAKER Chronic heart failure with preserved ejection fraction (CMS/HCC) (HCC) XR SCOLIOSIS AP LAT Schedule Routine, Read Routine (OP Routine) 08/26/2024 11:42 AM GREETING CARD MAKER Lumbar spondylosis Chronic bilateral low back pain, unspecified whether sciatica present BASIC METABOLIC PANEL Routine 07/30/2024 12:37 PM GREETING CARD MAKER High risk medications (not anticoagulants) long-term use BASIC METABOLIC PANEL Routine 07/16/2024 11:34 AM GREETING CARD MAKER High risk medications (not anticoagulants) long-term use BASIC METABOLIC PANEL Routine 06/24/2024 10:29 AM GREETING CARD MAKER Acute on chronic systolic heart failure (HCC) HEMOGLOBIN A1C Routine 06/07/2024 8:38 AM CDT LIPID PANEL Routine 06/07/2024 8:38 AM CDT DIABETES FOOT EXAM Routine 11/05/2020 DIABETES EYE EXAM Routine 05/05/2019 from Last 3 Months or Most Recently Relevant to Health Maintenance Results * eGFR (09/14/2024 8:23 AM GREETING CARD MAKER) eGFR 63 >=60 mL/min/1. 73 m2 Comment: [...] last reviewed 2021. Blood 09/14/2024 8:23 AM GREETING CARD MAKER 09/14/2024 8:45 AM GREETING CARD MAKER us Dalila Torres MD LAB BLOOD ORDERABLES Fi nal Result [facility] Department [place] [address] * (ABNORMAL) Basic metabolic panel (09/14/2024 8:23 AM GREETING CARD MAKER) Sodium 140 135 - 145 mmol/L Potassium, pl 4.0 3.3 - 4.9 mmol/L [facility] Chloride 104 97 - 110 mmol/L [facility] CO2 27 22 - 32 mmol/L [facility] Anion gap 9 2 - 15 mmol/L [facility] BUN 28(H) 6 - 25 mg/dL [facility] Creatinine 1.14 0.80 - 1.30 mg/dL [facility] Glucose 108 70 - 199 mg/dL [facility] Comment: Interpretive Data Fasting glucose >/= 126 [...] 2022. Calcium 8.8 8.5 - 10.3 mg/dL [facility] Blood 09/14/2024 8:23 AM GREETING CARD MAKER 09/14/2024 8:45 AM GREETING CARD MAKER us Dalila Torres MD LAB BLOOD ORDERABLES Fi nal Result [facility] Department [place] [address] * (ABNORMAL) eGFR (09/13/2024 9:57 PM GREETING CARD MAKER) eGFR 49(L) >=60 mL/min/1. 73 m2 Comment: [...] of Race in Diagnosing Kidney Disease, JASN 202). The CKD-EPI equation should not be used for patients with unstable renal function and has not been validated in children and those over 70. Current interpretive data was last reviewed 2021. Blood 09/13/2024 9:57 PM GREETING CARD MAKER 09/13/2024 10:27 PM GREETING CARD MAKER us Dalila Torres MD LAB BLOOD ORDERABLES Fi nal Result [facility] [place] [address] * (ABNORMAL) CBC without differential (09/13/2024 9:57 PM GREETING CARD MAKER) WBC 6.4 3.8 - 9.9 K/cumm Hgb 11.1(L) 13.0 - 17.5 g/dL [facility] Hct 33.4(L) 38.9 - 50.3 % [facility] Plt 152 150 - 400 K/cumm [facility] MPV 11.2 9.1 - 12.3 fL [facility] RBC 3.53(L) 4.30 - 5.80 M/cumm [facility] MCV 94.6 81.3 - 96.4 fL [facility] MCH 31.4 27.1 - 33.3 pg [facility] MCHC 33.2 32.3 - 35.7 g/dL [facility] RDW CV 14.9 11.1 - 14.9 % [facility] RDW SD 52.3(H) 35.7 - 48.1 fL [facility] NRBC abs 0.00 0.00 - 0.01 K/cumm [facility] Blood 09/13/2024 9:57 PM GREETING CARD MAKER 09/13/2024 10:27 PM GREETING CARD MAKER us Dalila Torres MD LAB BLOOD ORDERABLES Fi nal Result [facility] [place] [address] * Magnesium (09/13/2024 9:57 PM GREETING CARD MAKER) Pathologist [facility] Magnesium 2.1 1.4 - 2.5 mg/dL Blood 09/13/2024 9:57 PM GREETING CARD MAKER 09/13/2024 10:27 PM GREETING CARD MAKER us Dalila Torres MD LAB BLOOD ORDERABLES Fi nal Result Performing Organization Address [facility] Co de Phone Number [facility] [place] [address] * (ABNORMAL) Basic metabolic panel (09/13/2024 9:57 PM GREETING CARD MAKER) [facility] Sodium 139 135 - 145 mmol/L Potassium, pl 3.7 3.3 - 4.9 mmol/L [facility] Chloride 102 97 - 110 mmol/L [facility] CO2 28 22 - 32 mmol/L [facility] Anion gap 9 2 - 15 mmol/L [facility] BUN 35(H) 6 - 25 mg/dL [facility] Creatinine 1.41(H) 0.80 - 1.30 mg/dL [facility] Glucose 126 70 - 199 mg/dL [facility] Comment: Interpretive Data Fasting glucose >/= 126 [...] 2022. Calcium 8.7 8.5 - 10.3 mg/dL [facility] Blood 09/13/2024 9:57 PM GREETING CARD MAKER 09/13/2024 10:27 PM GREETING CARD MAKER us Dalila Torres MD LAB BLOOD ORDERABLES Fi nal Result Performing Organization Address [facility] Co de Phone Number [facility] [place] [address] * (ABNORMAL) eGFR (09/12/2024 8:13 PM GREETING CARD MAKER) eGFR 51(L) >=60 mL/min/1. 73 m2 Comment: [...] last reviewed 2021. Blood 09/12/2024 8:13 PM GREETING CARD MAKER 09/12/2024 8:55 PM GREETING CARD MAKER us Dalila Torres MD LAB BLOOD ORDERABLES Fi nal Result Performing Organization Address [facility] Co de Phone Number [facility] [place] [address] * (ABNORMAL) CBC without differential (09/12/2024 8:13 PM GREETING CARD MAKER) [facility] WBC 7.4 3.8 - 9.9 K/cumm Hgb 11.0(L) 13.0 - 17.5 g/dL [facility] Hct 33.7(L) 38.9 - 50.3 % [facility] Plt 181 150 - 400 K/cumm [facility] MPV 11.1 9.1 - 12.3 fL [facility] RBC 3.60(L) 4.30 - 5.80 M/cumm [facility] MCV 93.6 81.3 - 96.4 fL [facility] MCH 30.6 27.1 - 33.3 pg [facility] MCHC 32.6 32.3 - 35.7 g/dL [facility] RDW CV 14.8 11.1 - 14.9 % [facility] RDW SD 51.2(H) 35.7 - 48.1 fL [facility] NRBC abs 0.00 0.00 - 0.01 K/cumm [facility] Blood 09/12/2024 8:13 PM GREETING CARD MAKER 09/12/2024 8:54 PM GREETING CARD MAKER us Dalila Torres MD LAB BLOOD ORDERABLES Fi nal Result Performing Organization Address City/[facility]/ZIP Co de Phone Number [facility] [place] [address] * Magnesium (09/12/2024 8:13 PM GREETING CARD MAKER) [facility] Magnesium 2.0 1.4 - 2.5 mg/dL Blood 09/12/2024 8:13 PM GREETING CARD MAKER 09/12/2024 8:55 PM GREETING CARD MAKER us Dalila Torres MD LAB BLOOD ORDERABLES Fi nal Result [facility] [place] [address] * (ABNORMAL) Basic metabolic panel (09/12/2024 8:13 PM GREETING CARD MAKER) Sodium 141 135 - 145 mmol/L Potassium, pl 3.8 3.3 - 4.9 mmol/L [facility] Chloride 106 97 - 110 mmol/L [facility] CO2 26 22 - 32 mmol/L [facility] Anion gap 9 2 - 15 mmol/L [facility] BUN 31(H) 6 - 25 mg/dL [facility] Creatinine 1.37(H) 0.80 - 1.30 mg/dL [facility] Glucose 102 70 - 199 mg/dL [facility] Comment: Interpretive Data Fasting glucose >/= 126 [...] 2022. Calcium 8.4(L) 8.5 - 10.3 mg/dL [facility] Blood 09/12/2024 8:13 PM GREETING CARD MAKER 09/12/2024 8:55 PM GREETING CARD MAKER us Dalila Torres MD LAB BLOOD ORDERABLES Fi nal Result [facility] One [facility] [place] [address] * Sodium, urine, random (09/12/2024 12:36 PM GREETING CARD MAKER) Sodium, ur 72 mmol/L Comment: Interpretive Data No reference range established. Current interpretive data was last revised 2018. Urine 09/12/2024 12:3 6 PM GREETING CARD MAKER 09/12/2024 4:22 PM GREETING CARD MAKER us Dalila Torres MD LAB URINE ORDERABLES Fi nal Result [facility] [employer] [place] [address] * POCT glucose (09/12/2024 7:52 AM GREETING CARD MAKER) Glucose, POC 103 70 - 199 mg/dL Blood 09/12/2024 7:52 AM GREETING CARD MAKER 09/12/2024 7:52 AM GREETING CARD MAKER us Dalila Torres MD LAB POCT ORDERABLES - D EVICE Final Result Performing Organization Address [facility] Co de Phone Number [facility] [place] [address] * POCT glucose (09/12/2024 6:21 AM GREETING CARD MAKER) Glucose, POC 92 70 - 199 mg/dL Blood 09/12/2024 6:21 AM GREETING CARD MAKER 09/12/2024 6:21 AM GREETING CARD MAKER us Dalila Torres MD LAB POCT ORDERABLES - D EVICE Final Result Performing Organization Address [facility] Co de Phone Number [facility] [place] [address] * POCT glucose (09/12/2024 2:15 AM GREETING CARD MAKER) Glucose, POC 178 70 - 199 mg/dL Blood 09/12/2024 2:15 AM GREETING CARD MAKER 09/12/2024 2:15 AM GREETING CARD MAKER us Dalila Torres MD LAB POCT ORDERABLES - D EVICE Final Result Performing Organization Address City/[facility]/ZIP Co de Phone Number [facility] [place] [address] * (ABNORMAL) eGFR (09/11/2024 11:44 PM GREETING CARD MAKER) eGFR 54(L) >=60 mL/min/1. 73 m2 Comment: [...] reviewed 2021. Blood 09/11/2024 11:4 4 PM GREETING CARD MAKER 09/12/2024 12:17 AM GREETING CARD MAKER us Dalila Torres MD LAB BLOOD ORDERABLES Fi nal Result [facility] One [facility] [place] [address] * (ABNORMAL) CBC without differential (09/11/2024 11:44 PM GREETING CARD MAKER) WBC 7.1 3.8 - 9.9 K/cumm Hgb 11.5(L) 13.0 - 17.5 g/dL [facility] Hct 34.7(L) 38.9 - 50.3 % [facility] Plt 172 150 - 400 K/cumm [facility] MPV 10.9 9.1 - 12.3 fL [facility] RBC 3.70(L) 4.30 - 5.80 M/cumm [facility] MCV 93.8 81.3 - 96.4 fL [facility] MCH 31.1 27.1 - 33.3 pg [facility] MCHC 33.1 32.3 - 35.7 g/dL [facility] RDW CV 14.9 11.1 - 14.9 % [facility] RDW SD 51.1(H) 35.7 - 48.1 fL [facility] NRBC abs 0.00 0.00 - 0.01 K/cumm [facility] Blood 09/11/2024 11:4 4 PM GREETING CARD MAKER 09/12/2024 12:17 AM GREETING CARD MAKER Dalila Torres MD LAB BLOOD ORDERABLES Fi nal Result Performing Organization Address City/[facility]/ZIP Co de Phone Number [facility] [place] [place] [address] * Magnesium (09/11/2024 11:44 PM GREETING CARD MAKER) [facility] Magnesium 2.1 1.4 - 2.5 mg/dL Blood 09/11/2024 11:4 4 PM GREETING CARD MAKER 09/12/2024 12:17 AM GREETING CARD MAKER Dalila Torres MD LAB BLOOD ORDERABLES Fi nal Result [facility] [place] [place] [address] * (ABNORMAL) Basic metabolic panel (09/11/2024 11:44 PM GREETING CARD MAKER) [facility] Sodium 142 135 - 145 mmol/L Potassium, pl 3.5 3.3 - 4.9 mmol/L [facility] Chloride 104 97 - 110 mmol/L [facility] CO2 27 22 - 32 mmol/L [facility] Anion gap 11 2 - 15 mmol/L [facility] BUN 30(H) 6 - 25 mg/dL [facility] Creatinine 1.30 0.80 - 1.30 mg/dL [facility] Glucose 74 70 - 199 mg/dL [facility] Comment: Interpretive Data Fasting glucose >/= 126 [...] 2022. Calcium 8.8 8.5 - 10.3 mg/dL [facility] Blood 09/11/2024 11:4 4 PM GREETING CARD MAKER 09/12/2024 12:17 AM GREETING CARD MAKER us Dalila Torres MD LAB BLOOD ORDERABLES Fi nal Result Performing Organization Address City/[facility]/ZIP Co de Phone Number [facility] Department [place] [address] * POCT glucose (09/11/2024 8:14 PM GREETING CARD MAKER) Glucose, POC 142 70 - 199 mg/dL Blood 09/11/2024 8:14 PM GREETING CARD MAKER 09/11/2024 8:14 PM GREETING CARD MAKER us Dalila Torres MD LAB POCT ORDERABLES - D EVICE Final Result Performing Organization Address [facility]/ZIP Co de Phone Number [facility] Department [place] [address] * POCT glucose (09/11/2024 5:23 PM GREETING CARD MAKER) Glucose, POC 91 70 - 199 mg/dL Blood 09/11/2024 5:23 PM GREETING CARD MAKER 09/11/2024 5:[address] Tai MD LAB POCT ORDERABLES - DEVICE Final Result Performing Organization Address [facility] [place] [address] * Troponin I high-sensitivity 4-hour (09/11/2024 3:10 PM GREETING CARD MAKER) [facility] Trop I hs 13 <=35 ng/L Comment: Interpretive Data For further hscTnI resources including the diagnostic algorithm and an aid in interpretation, copy and paste this link: https://bjhlab.testcatalog.org/show/hsTrop-1 Current Interpretive Data last revised 2020. Trop I hs delta -1 ng/L [facility] Trop I hs interp Insignificant [facility] Blood 09/11/2024 3:10 PM GREETING CARD MAKER 09/11/2024 3:22 PM GREETING CARD MAKER Ricki Ramirez MD LAB BLOOD ORDERABLES Final Result Performing Organization Address [facility] [place] [address] * POCUS Cardiac (09/11/2024 1:58 PM GREETING CARD MAKER) Anatomical Region Laterality Modality Other 09/11/2024 1:28 PM GREETING CARD MAKER Narrative 09/11/2024 3:02 PM GREETING CARD MAKER Performed by: Jose Martin Guevara Cardiac: ?Exam type: ??Diagnostic ?Exam Information: ?Indication(s) [...] I agree with the findings. Procedure Note Jsoeph Lucas MD - 09/11/2024 Performed by: Jose [...] Troponin I high-sensitivity 2-hour (09/11/2024 1:30 PM GREETING CARD MAKER) Trop I hs 14 <=35 ng/L Comment: Interpretive Data For further hscTnI resources including the diagnostic algorithm and an aid in interpretation, copy and paste this link: https://bjhlab.testcatalog.org/show/hsTrop-1 Current Interpretive Data last revised 2020. Trop I hs delta 0 ng/L [facility] Trop I hs interp Insignificant [facility] Blood 09/11/2024 1:30 PM GREETING CARD MAKER 09/11/2024 2:03 PM GREETING CARD MAKER us Ricki Ramirez MD LAB BLOOD ORDERABLES Final Result [facility] One [facility] Department [place] [address] * (ABNORMAL) Pro B-type natriuretic peptide (09/11/2024 1:30 PM GREETING CARD MAKER) Pathologist [facility] NT-proBNP 1,193(H) <=450 pg/mL Comment: Interpretive Comments: [...] Revised Date: 2018. Blood 09/11/2024 1:30 PM GREETING CARD MAKER 09/11/2024 2:[address] CARD MAKER [address] De Leon MD LAB BLOOD ORDERABLES Final Result [facility] One [facility] [place] [address] * XR Chest Pa Lateral 2 Views (09/11/2024 11:13 AM GREETING CARD MAKER) Anatomical Region Laterality Modality Body, Chest N/A Computed Radiogr aphy 09/11/2024 11:4 4 AM GREETING CARD MAKER Impressions 09/11/2024 11:44 AM GREETING CARD MAKER Comparison to 12/21/2023. 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 Heart and mediastinum are unchanged. There is no pneumothorax or pleural effusion. Small lung volumes with scarring in the left midlung that is similar to the prior CT. No new focal pulmonary opacity. Electronically signed by: Eric Balbuena M.D. Narrative 09/11/2024 11:44 AM GREETING CARD MAKER EXAMINATION: 2 view chest radiograph Procedure Note [...] (baseline, 2hr, 4hr, 6hr) (09/11/2024 11:03 AM GREETING CARD MAKER) Pathologist [facility] Trop I hs 14 <=35 ng/L Comment: Interpretive Data For further [facility] resources including the diagnostic algorithm and an aid in interpretation, copy and paste this link: https://bjhlab.testcatalog.org/show/hsTrop-1 Current Interpretive Data last revised 2020. Blood 09/11/2024 11:0 3 AM GREETING CARD MAKER 09/11/2024 11:20 AM GREETING CARD MAKER us Joseph Lucas MD LAB BLOOD ORDERABLES Shanna l Result [facility] One [facility] [place] [address] * (ABNORMAL) eGFR (09/11/2024 11:03 AM GREETING CARD MAKER) Pathologist [facility] eGFR 49(L) >=60 mL/min/1. 73 m2 Comment: [...] reviewed 2021. Blood 09/11/2024 11:0 3 AM GREETING CARD MAKER 09/11/2024 11:20 AM GREETING CARD MAKER us Joseph Lucas MD LAB BLOOD ORDERABLES Shanna orozco Result [facility] One [facility] [place] [address] * Differential, auto (09/11/2024 11:03 AM GREETING CARD MAKER) Neutrophil abs 4.9 1.5 - 6.5 K/cumm Imm gran abs 0.0 0.0 - 0.1 K/cumm [facility] Lymphocyte abs 1.4 0.8 - 3.3 K/cumm [facility] Monocyte abs 0.7 0.2 - 0.8 K/cumm [facility] Eosinophil abs 0.1 0.0 - 0.5 K/cumm [facility] Basophil abs 0.0 0.0 - 0.1 K/cumm [facility] Neutrophil pct 67.9 % [facility] Comment: Interpretive Data Percent cell count reference ranges are not reported, since discordance with absolute values may lead to misinterpretation of CBC data. Current Interpretive Data was last revised on 2017. Imm gran pct 0.4 % [facility] Comment: Interpretive Data Percent cell count reference ranges are not reported, since discordance with absolute values may lead to misinterpretation of CBC data. Current Interpretive Data was last revised on 2017. Lymphocyte pct 19.8 % [facility] Comment: Interpretive Data Percent cell count reference ranges are not reported, since discordance with absolute values may lead to misinterpretation of CBC data. Current Interpretive Data was last revised on 2017. Monocyte pct 9.6 % [facility] Comment: Interpretive Data Percent cell count reference ranges are not reported, since discordance with absolute values may lead to misinterpretation of CBC data. Current Interpretive Data was last revised on 2017. Eosinophil pct 1.9 % [facility] Comment: Interpretive Data Percent cell count reference ranges are not reported, since discordance with absolute values may lead to misinterpretation of CBC data. Current Interpretive Data was last revised on 2017. Basophil pct 0.4 % [facility] Comment: Interpretive Data Percent cell count reference ranges are not reported, since discordance with absolute values may lead to misinterpretation of CBC data. Current Interpretive Data was last revised on 2017. Blood 09/11/2024 11:0 3 AM GREETING CARD MAKER 09/11/2024 11:20 AM GREETING CARD MAKER Joseph Lucas MD LAB BLOOD ORDERABLES Shanna orozco Result [facility] One [facility] [place] [address] * (ABNORMAL) CBC with auto differential (09/11/2024 11:03 AM GREETING CARD MAKER) WBC 7.3 3.8 - 9.9 K/cumm Hgb 11.0(L) 13.0 - 17.5 g/dL [facility] Hct 33.2(L) 38.9 - 50.3 % [facility] Plt 175 150 - 400 K/cumm [facility] MPV 10.6 9.1 - 12.3 fL [facility] RBC 3.51(L) 4.30 - 5.80 M/cumm [facility] MCV 94.6 81.3 - 96.4 fL [facility] MCH 31.3 27.1 - 33.3 pg [facility] MCHC 33.1 32.3 - 35.7 g/dL [facility] RDW CV 14.9 11.1 - 14.9 % [facility] RDW SD 51.4(H) 35.7 - 48.1 fL [facility] NRBC abs 0.00 0.00 - 0.01 K/cumm [facility] Blood (Blood, Venous) 09/11/2024 11:03 AM GREETING CARD MAKER 09/11/2024 11:20 AM GREETING CARD MAKER us Joseph Lucas MD LAB BLOOD ORDERABLES Shanna orozco Result [facility] One [facility] [place] [address] * (ABNORMAL) Comprehensive metabolic panel (09/11/2024 11:03 AM GREETING CARD MAKER) Sodium 142 135 - 145 mmol/L Potassium, pl 3.6 3.3 - 4.9 mmol/L [facility] Chloride 102 97 - 110 mmol/L [facility] CO2 28 22 - 32 mmol/L [facility] Anion gap 12 2 - 15 mmol/L [facility] BUN 33(H) 6 - 25 mg/dL [facility] Creatinine 1.40(H) 0.80 - 1.30 mg/dL [facility] Glucose 114 70 - 199 mg/dL [facility] Comment: Interpretive Data Fasting glucose >/= 126 [...] 2022. Calcium 8.9 8.5 - 10.3 mg/dL [facility] Bilirubin, total 0.4 0.1 - 1.2 mg/dL [facility] Protein, pl 6.9 6.5 - 8.5 g/dL [facility] Albumin 3.9 3.5 - 5.0 g/dL [facility] Alk phos 43 40 - 130 Units/L [facility] ALT 13 7 - 55 Units/L [facility] AST 24 10 - 50 Units/L [facility] Blood 09/11/2024 11:0 3 AM GREETING CARD MAKER 09/11/2024 11:20 AM GREETING CARD MAKER us Joseph Lucas MD LAB BLOOD ORDERABLES Shanna pam Result [facility] One [facility] [place] [address] * ECG 12-LEAD (09/11/2024 10:52 AM GREETING CARD MAKER) Narrative [facility] - 09/11/2024 10:52 AM GREETING CARD MAKER Hermilo Linares MD ? 09/11/2024 10:55 AM [...] the ED Hermilo Linares MD 09/11/24 1055 Joseph Lucas MD ECG ORDERABLES Final Res ult Performing Organization Address City/[facility]/ZIP Co de Phone Number [facility] * POCT glucose (09/11/2024 10:48 AM GREETING CARD MAKER) Glucose, POC 112 70 - 199 mg/dL Blood 09/11/2024 10:4 8 AM GREETING CARD MAKER 09/11/2024 10:48 AM GREETING CARD MAKER Not[employer] Unknown LAB POCT ORDERABLES - DEVICE F inal Result Performing Organization Address [facility] Co de Phone Number [facility] One [facility] [place] [address] * (ABNORMAL) eGFR (09/10/2024 12:26 PM GREETING CARD MAKER) eGFR 54(L) >=60 mL/min/1. 73 m2 Comment: [...] reviewed 2021. Blood 09/10/2024 12:2 6 PM GREETING CARD MAKER 09/10/2024 1:37 PM GREETING CARD MAKER us Rehan Sheth MD LAB BLOOD ORDERABLES F inal Result [facility] One [facility] [place] [address] * (ABNORMAL) Pro B-type natriuretic peptide (09/10/2024 12:26 PM GREETING CARD MAKER) NT-proBNP 2,273(H) <=450 pg/mL Comment: Interpretive Comments: [...] Date: 2018. Blood 09/10/2024 12:2 6 PM GREETING CARD MAKER 09/10/2024 1:32 PM GREETING CARD MAKER us Rehan Sheth MD LAB BLOOD ORDERABLES F inal Result [facility] One [facility] [place] [address] * (ABNORMAL) Basic metabolic panel (09/10/2024 12:26 PM GREETING CARD MAKER) Pathologist [facility] [place] Sodium 142 135 - 145 mmol/L Potassium, pl 3.9 3.3 - 4.9 mmol/L [facility] Chloride 104 97 - 110 mmol/L [facility] CO2 28 22 - 32 mmol/L [facility] Anion gap 10 2 - 15 mmol/L [facility] BUN 31(H) 6 - 25 mg/dL [facility] Creatinine 1.29 0.80 - 1.30 mg/dL [facility] Glucose 126 70 - 199 mg/dL [facility] Comment: Interpretive Data Fasting glucose >/= 126 [...] Calcium 9.2 8.5 - 10.3 mg/dL [facility] Blood 09/10/2024 12:2 6 PM GREETING CARD MAKER 09/10/2024 1:32 PM GREETING CARD MAKER Rehan Sheth MD LAB BLOOD ORDERABLES F inal Result [facility] One [facility] [place] [address] * ECG 12 lead (09/10/2024 11:33 AM GREETING CARD MAKER) Rehan Sheth MD ECG ORDERABLES Edited Result - Final * XR Scoliosis Ap and Lateral (08/26/2024 11:42 AM GREETING CARD MAKER) Anatomical Region Laterality Modality Spine N/A Computed Radiogr aphy 08/26/2024 12:3 0 PM GREETING CARD MAKER Impressions 08/26/2024 12:30 PM GREETING CARD MAKER 1. ??Mild thoracolumbar curvature with leftward coronal and anterior sagittal imbalance Electronically signed by: Mehran Sotomayor MD Narrative 08/26/2024 12:30 PM GREETING CARD MAKER EXAMINATION: XR SCOLIOSIS AP AND LATERAL HISTORY: [...] Comparison is made to prior radiographs for 192. There is mild dextrocurvature of the upper [...] (ABNORMAL) Basic metabolic panel (07/30/2024 12:37 PM GREETING CARD MAKER) Glucose 143(H) 65 - 99 mg/dL [facility] Comment: ? Fasting reference interval For someone without known diabetes, a glucose value >125 mg/dL indicates that they may have diabetes and this should be confirmed with a follow-up test. BUN 22 7 - 25 mg/dL [facility] francisco Villanue[facility] Creatinine 1.04 0.70 - 1.22 mg/dL [facility] franc[facility] eGFR 71 > OR = 60 mL/min/1.7 3m2 [facility] BUN/creat ratio SEE NOTE: (calc) [facility] Villan[facility]va Comment: ?? Not Reported: BUN and Creatinine are within ?? reference range. ? Sodium 141 135 - 146 mmol/L [facility] francisco [facility] Potassium, pl 4.2 3.5 - 5.3 mmol/L [facility] franc[facility] Chloride 103 98 - 110 mmol/L [facility] franc[facility] CO2 30 20 - 32 mmol/L [facility] franc[facility] Calcium 8.9 8.6 - 10.3 mg/dL [facility] franc[facility] Blood 07/30/2024 12:3 7 PM GREETING CARD MAKER 07/30/2024 12:38 PM GREETING CARD MAKER Rehan Sheth MD LAB BLOOD ORDERABLES F inal Result Performing Organization Address [facility] Co de Phone Number [facility]osa [place] [address] [place] [address] * (ABNORMAL) Basic metabolic panel (07/16/2024 11:34 AM GREETING CARD MAKER) [facility] Glucose 115 65 - 139 mg/dL [facility] francisco Villanueva Comment: ? Non-fasting reference interval BUN 29(H) 7 - 25 mg/dL [facility] francisco Villanue[facility] Creatinine 1.23(H) 0.70 - [...] francisco Villanueva Blood 07/16/2024 11:3 4 AM GREETING CARD MAKER 07/16/2024 11:34 AM GREETING CARD MAKER Narrative [facility] - 07/16/2024 10:30 PM GREETING CARD MAKER INSURANCE VERIFIED FASTING:NO FASTING: NO Rehan Sheth MD LAB BLOOD ORDERABLES F inal Result Performing Organization Address [facility]/ZIP Co de Phone Number [employer] Dorinda Villanueva [address] [place] [address] * (ABNORMAL) Basic metabolic panel (06/24/2024 10:29 AM GREETING CARD MAKER) Glucose 163(H) 65 - 99 mg/dL [facility] Blood 06/24/2024 10:2 9 AM GREETING CARD MAKER 06/24/2024 10:30 AM GREETING CARD MAKER Rehan Sheth MD LAB BLOOD ORDERABLES F inal Result [facility] [address] [place] [address] * (ABNORMAL) Hemoglobin A1c (06/07/2024 8:38 AM CDT) Hgb A1C 6.1(H) 4.0 - 5.6 % Estimated Average Glucose 128 mg/dL [facility] Comment: The ADA recommends reporting an estimated Average Glucose (eAG) with all Hemoglobin A1c results using the equation derived from a study of 507 normal and diabetic adults. ??Minority populations were underrepresented and children were not included. ?? (Diabetes Care 31:8947-4560, 2008). ??The eAG is not equivalent to a fasting glucose. Blood 06/07/2024 8:38 AM CDT 06/07/2024 9:07 AM CDT us Joe Hood MD LAB BLOOD ORDER MAITE Final Result Performing Organization Address City/State/ZIP Co tx Phone Number [facility] [address] [facility] [place] [address] * Lipid panel (06/07/2024 8:38 AM CDT) [...] LAB BLOOD ORDER MAITE Final Result [facility] [address] [facility] [place] [address] * DIABETES FOOT EXAM (11/05/2020) [...] for admission to 9200 09/12/2024 09/12/2024 Insurance [employer] MEDICARE PPO MEDICARE [employer] [facility] MEDICARE Address: [address] [address] [place] [address] MEDICARE [employer] [facility] MEDICARE Address: [address] [address] Advance Directives For more information, please contact: [phone] Documents on File Type Date Recorded Patient Visual Associate Expl anation ADVANCE DIRECTIVE 12/27/2023 10:41 PM Jorge Pryor P OWER OF WORK COUNSELOR-MEDICAL ADVANCE DIRECTIVE 12/26/2023 10:38 AM Yazmin Medina POWER OF WORK COUNSELOR-FINANCIAL * Full Code (Latest Code Status on [...] Communication Jorge Pryor Spouse Health Care Agent [email or web address] Yazmin Medina Daughter First Alternate Health Care Agent [email or web address] Starch Mangle Tender Relationship Specialty Start Date End Date Barry Ralph MD PCP - General Family Practice 05/22/24 Rehan Sheth MD [address] [facility] [address] [place] [address] Consulting Physician Cardiology 09/09/24 Sangita Moore, RN [address] [facility] [address] [place] [address] SHOP Outpatient Information Security Consultant 09/15/24
--- OUTSIDE RECORDS SUMMARY | 2024-09-18 03:08 | XMS_ITS | Encounter Summary ---
Author Organization [facility] Healthcare Address [address] [place] [address] Care Team Providers Care Animal Care Specialist Name Role Phone Barry Ralph MD Primary Care Provider [phone] Rehan Sheth MD Unavailable [phone] Sangita Moore RN Unavailable [phone] Reason for Visit * Reason Comments Successfully Completed Encounter Details Date Type Department Care Team (Late st Contact Info) Description 09/17/2024 SHOP/CHAP Subsequent Outreach [facility] OP CASE MANAGEMENT [address] [place] [id number] Sangita Moore, RN [address] [facility] [address] [place] [address] Social History Tobacco Use Types Packs/Day Years Used Date Smoking Tobacco: Never Smokeless Tobacco: Never [facility] Utilities Answer Date Recorded In the past 12 months has [employer] electric, gas, oil, or water company threatened [...] 09/15/2024 How often do you attend chur or islam services? More than 4 times per year 09/15/2024 Do you belong to any clubs o r organizations such as pentecostal groups, unions, fraternal or athletic groups, or [...] Date Recorded PHQ-2 Total Score 0 09/[facility] Questionnaire Answer Date Recorded [...] place to sleep or slept in a long term (including now)? No 01/01/2024 Housing Stability Vital Sign Answer Deangelo e Recorded In the last 12 months, was t here a time when you were not able to pay the mortgage or rent on time? No 09/15/2024 In the past 12 months, how m any times have you moved where you were living? 1 09/15/2024 At any time in the past 12 m [facility], were you homeless or living in a long term (including now)? No 09/15/2024 Personal Safety Answer Date Recorded Have you ever been in or are you currently in a harmful physical or emotional relationship or is someone making you feel afraid or unsafe? Denies 09/11/2024 Sex and Gender Information Value Date Recorded Sex Assigned at Not on file Legal Sex Male 8:23 PM [employer] Gender Identity Not on file Sexual Orientation Not on file documented as of this encounter Progress Notes * Sangita Moore RN - 09/17/2024 10:22 AM CST OCM spoke with patient for SHOP follow up call. Pt is feeling a little better today. Pt still does not have a scale and reminded on the importance of daily weights to monitor fluid retention. His breathing is better and no edema noted. He had a GI virus earlier this week and is feeling a little better today. Reminded them also on the importance of checking blood sugars jasmeet while having nausea and vomiting. Reminded that he is due for labs today at [facility] and has follow up appointment with Dr. Sheth on 09/24 here at the [facility]. OCM to continue to follow and reminded patient/family to call OCM for questions or concerns. [employer] documented in this encounter Plan of Treatment Not on file documented as of this encounter Goals Goal Patient Goal Type Associated Problems Recent Progress Patient-Stated? Author CCM Chronic Pain Care Plan Chronic Care Management Improving( 10:49 AM [employer]) No Nenita Santiago, RN Note: Problem: Chronic [...] sugars jasmeet while having nausea and vomiting. documented as of this encounter Visit Diagnoses Not on filedocumented in this encounter Additional Health Concerns Active Problems Noted Date Diagnosed Date Initial Follow-Up Appointment 09/15/2024 Note: Pt hospitalized for SOB. Hx HFpEF (50%), A.Fib, HTN, HLD, s/p bioprosthetic valve replacements x 2, DM, and BPH. Epic risk 17 Knowledge Deficit Concerning CHF 09/15/2024 Infection Onset Date Last Indicated Resolved Time Ring Surveillance Comment:C.auris Ring Surveillance Flag is placed and removed manually by IP. However, if the patient is discharged before their swab is collected, it will remain on a patient's chart for 7 days after discharge in case the patient is re-admitted elsewhere. Pt is undergoing Ring Surveillance for admission to 9200 09/12/2024 09/12/2024 documented as of this encounter Care Teams Animal Care Specialist Relationship Specialty Start Date End Date Barry Ralph MD PCP - General Family Practice 05/22/24 Rehan Sheth MD [address] [facility] [address] [place] [address] Consulting Physician Cardiology 09/09/24 Sangita Moore, RN [address] [facility] [address] [place] [address] SHOP Outpatient Video Production Specialist 09/15/24 documented as of this encounter
--- NOTE | 2024-09-18 03:18 | ED.SOB ---
HPI - SOB/Dyspnea General Chief Complaint: Shortness of Breath/Dyspnea Stated Complaint: throwing up short of breathe Time Seen by Provider: 09/18/24 03:18 Source: patient Mode of arrival: ambulatory Limitations: no limitations History of Present Illness HPI Narrative: 84-year-old male with a history of diabetes mellitus, dyslipidemia, COPD, TIA, CKD, hypertension, atrial fibrillation, HFpEF, status post AVR was recently discharged from [facility] for management of altered mental status and CHF. The patient presents to the ED with -- nausea/vomiting / diarrhea -- chronic shortness of breath Pertinent past history: congestive heart failure Related Data Home Medications ?Medication ?Instructions ?Recorded ?Confirmed ?Last Taken ?Type albuterol sulfate 90 mcg/actuation 1 inh inhalation Q4H PRN Shortness 12/27/23 06/05/24 05/17/24 History aerosol inhaler Of Breath Or Wheezing apixaban 5 mg tablet 5 mg PO BID 12/27/23 06/05/24 05/17/24 History aspirin 81 mg tablet,delayed 81 mg PO DAILY 12/27/23 06/05/24 05/17/24 History release (Adult Aspirin Regimen) glipizide 5 mg tablet, extended 5 mg PO DAILY 12/27/23 06/05/24 05/17/24 History release 24 hr lancets 30 gauge 12/27/23 06/05/24 Unknown History atorvastatin 80 mg tablet 80 mg PO DAILY 05/29/24 06/05/24 Unknown History Allergies Allergy/AdvReac Type Severity Reaction Status Date / Time metformin AdvReac Intermediate Diarrhea Verified 09/08/24 14:59 PMFSH Past Medical History Medical History TIA (transient ischemic attack) Right-sided extracranial carotid artery stenosis COPD (chronic obstructive pulmonary disease) Diabetes mellitus CHF (congestive heart failure) Atrial fibrillation Aortic valve disease Surgical History Surgical History H/O aortic valve replacement Family History Family History Father Hypertension Heart disease Mother Cancer Diabetes mellitus Hypertension Social History Social History Smoking status: Never smoker Alcohol intake: never Substance use: never Substance use type: does not use Do You Feel Safe in your Home?: Yes Lack of Transportation: No Lack of Food: Never True Current Housing: I Have Housing Concerned About Future Housing: No Difficulty Paying Gas/Electric Bills: No Difficulty Paying for Meds: No Currently Unemployed: No Education: High School Diploma/GED Difficulty w/ Childcare or Family Care: No Living arrangements: with family Occupation/Education: retired Gender identity (if verbalized by the patient): Male Spiritual care concerns: No Course Vital Signs Vital signs: Vital Signs Temperature 36.8 C 09/18/24 03:05 Pulse Rate 69 09/18/24 03:05 Respiratory Rate 20 09/18/24 03:05 Blood Pressure 143/58 H 09/18/24 03:05 Pulse Oximetry 98 09/18/24 03:05 Oxygen Delivery Room Air 09/18/24 03:05 Temperature 36.3 C L 09/18/24 03:19 Pulse Rate 68 09/18/24 03:32 Respiratory Rate 20 09/18/24 03:32 Blood Pressure 129/58 L 09/18/24 03:32 Pulse Oximetry 97 09/18/24 03:32 Oxygen Delivery Room Air 09/18/24 03:32 MDM - SOB/Dyspnea Lab Data 09/18/24 03:38 09/18/24 03:38 Labs: Lab Results 09/18/24 Range/Units 03:38 WBC Pending RBC Pending Hgb Pending Hct Pending MCV Pending MCH Pending MCHC Pending RDW Pending Plt Count Pending MPV Pending Immature Gran % (Auto) Pending Neut % (Auto) Pending Lymph % (Auto) Pending [place] % (Auto) Pending Eos % (Auto) Pending Baso % (Auto) Pending Lymph # (Auto) Pending [place] # (Auto) Pending Eos # (Auto) Pending Baso # (Auto) Pending Abs Immat Gran (auto) Pending Absolute Neuts (auto) Pending Absolute Nucleated RBC Pending Nucleated RBC % Pending Sodium Pending Potassium Pending Chloride Pending Carbon Dioxide Pending Anion Gap Pending BUN Pending Creatinine Pending Estim Creat Clear Calc Pending Estimated GFR Pending Glucose Pending Calculated Osmolality Pending Calcium Pending Magnesium Pending Total Bilirubin Pending AST Pending ALT Pending Alkaline Phosphatase Pending Troponin I Pending NT-Pro-B Natriuret Pep Pending Total Protein Pending Albumin Pending Influenza A (RT-PCR) Pending Influenza B (RT-PCR) Pending RSV (RT-PCR) Pending SARS-CoV-2 RNA (RT-PCR) Pending Discharge Plan Discharge Patient Language: Sami Prescriptions: No Action levofloxacin 500 mg tablet 500 mg PO DAILY 7 Days Qty: 7 0RF apixaban 5 mg tablet 5 mg PO BID aspirin [Adult Aspirin Regimen] 81 mg tablet,delayed release (DR/EC) 81 mg PO DAILY glipizide 5 mg tablet extended release 24hr 5 mg PO DAILY (DME) lancets 30 gauge misc See Rx Instructions .Route Rx Instructions: As directed albuterol sulfate 90 mcg/actuation HFA aerosol inhaler 1 inh inhalation Q4H PRN (Reason: Shortness Of Breath Or Wheezing) atorvastatin 80 mg tablet 80 mg PO DAILY carvedilol 25 mg tablet 25 mg PO BID Qty: 180 3RF doxazosin 4 mg tablet 4 mg PO DAILY Qty: 90 3RF losartan 100 mg tablet 100 mg PO DAILY Qty: 90 3RF amlodipine 10 mg tablet 10 mg PO DAILY Qty: 90 3RF furosemide 40 mg tablet 40 mg PO DAILY Qty: 90 3RF (DME) blood-glucose meter [Accu-Chek Guide Glucose Meter] Misc See Rx Instructions .Route Qty: 1 3RF Rx Instructions: Check Blood Glucose 1xday As directed (DME) Accu-Chek Guide test strips Strip See Rx Instructions .Route Qty: 100 3RF Rx Instructions: Check blood glucose 1xday As directed Follow-up/Referrals: UNKNOWN,DOCTOR [Primary Care Provider] -
--- NOTE | 2024-09-18 03:23 | ECG_ITS ---
Test Date: 2024-09-18 03:41:50 Measurements Intervals Irwin Rate: 75 P: 0 NM: 0 QRS: -12 QRSD: 166 T: 32 QT: 471 QTc: 527 Interpretive Statements ATRIAL FIBRILLATION WITH ABERRANT CONDUCTION OR VENTRICULAR PREMATURE COMPLEXES LEFT BUNDLE BRANCH BLOCK [120+ ms QRS DURATION, 80+ ms Q/S IN V1/V2, 85+ ms R IN I/aVL/V5/V6] Compared to ECG 09/08/2024 15:18:49 Ventricular premature complex(es) now present Aberrant conduction of supraventricular beat(s) now present Sinus rhythm no longer present First degree AV block no longer present Electronically Signed On 09-18-2024 11:41:02 SACK LIFTER by Law Alexander M.D.
--- NOTE | 2024-09-18 03:38 | PC.NURSE ---
LAB AT THE BEDSIDE
--- NOTE | 2024-09-18 04:03 | ED_ITS ---
HPI - Nausea/Vomiting/Diarrhea General Chief complaint: Shortness of Breath/Dyspnea <Reilly Galvin MD - Last Filed: 09/18/24 06:57> Stated complaint: throwing up short of breathe <Reilly Galvin MD - Last Filed: 09/18/24 06:57> Time Seen by Provider: 09/18/24 03:18 <eRilly Galvin MD - Last Filed: 09/18/24 06:57> Source: patient and family <Reilly Galvin MD - Last Filed: 09/18/24 06:57> Mode of arrival: ambulatory <Reilly Galvin MD - Last Filed: 09/18/24 06:57> Limitations: no limitations <Reilly Galvin MD - Last Filed: 09/18/24 06:57> History of Present Illness HPI Narrative: 84-year-old male with a history of diabetes mellitus, dyslipidemia, COPD, TIA, CKD, hypertension, atrial fibrillation, HFpEF, status post TAVR was recently discharged from [facility] for management of altered mental status and CHF. The patient presents to the ED with -- nausea with multiple episodes of vomiting -- multiple episodes of diarrhea. His has similar symptoms. No abdominal pain. No fever. No hematemesis or melena. patient has chronic shortness of breath. no chest pain. <Reilly Galvin MD - Last Filed: 09/18/24 06:57> MD elicited complaint: nausea, vomiting and diarrhea <Reilly Galvin MD - Last Filed: 09/18/24 06:57> Onset (ago): day(s) ( One day) <Reilly Galvin MD - Last Filed: 09/18/24 06:57> Description of vomiting: watery <Reilly Galvin MD - Last Filed: 09/18/24 06:57> Description of diarrhea: watery <Reilly Galvin MD - Last Filed: 09/18/24 06:57> Associated nausea: Yes <Reilly Galvin MD - Last Filed: 09/18/24 06:57> Associated abdominal pain: No <Reilly Galvin MD - Last Filed: 09/18/24 06:57> Location of pain: none <Reilly Galvin MD - Last Filed: 09/18/24 06:57> Exacerbating factors: none <Reilly Glavin MD - Last Filed: 09/18/24 06:57> Relieving factors: none <Reilly Galvin MD - Last Filed: 09/18/24 06:57> Associated symptoms: denies other symptoms, nausea/vomiting and shortness of breath <Reilly Galvin MD - Last Filed: 09/18/24 06:57> Related Data Home medications: Home Medications ?Medication ?Instructions ?Recorded ?Confirmed ?Last Taken ?Type albuterol sulfate 90 mcg/actuation 1 inh inhalation Q4H PRN Shortness 12/27/23 09/18/24 05/17/24 History aerosol inhaler Of Breath Or Wheezing apixaban 5 mg tablet 5 mg PO BID 12/27/23 09/18/24 05/17/24 History aspirin 81 mg tablet,delayed 81 mg PO DAILY 12/27/23 09/18/24 05/17/24 History release (Adult Aspirin Regimen) glipizide 5 mg tablet, extended 5 mg PO DAILY 12/27/23 09/18/24 05/17/24 History release 24 hr lancets 30 gauge 12/27/23 06/05/24 Unknown History atorvastatin 80 mg tablet 80 mg PO DAILY 05/29/24 09/18/24 Unknown History <Reilly Galvin MD - Last Filed: 09/18/24 06:57> Allergies/Adverse reactions: Allergies Allergy/AdvReac Type Severity Reaction Status Date / Time metformin AdvReac Intermediate Diarrhea Verified 09/18/24 05:31 <Reilly Galvin MD - Last Filed: 09/18/24 06:57> Review of Systems 2 Review of Systems: All systems reviewed & are unremarkable except as noted in HPI and below <Reilly Galvin MD - Last Filed: 09/18/24 06:57> Constitutional: Constitutional: Reports as per HPI, Reports no additional constitutional complaints and Reports weakness <Reilly Galvin MD - Last Filed: 09/18/24 06:57> Eyes: Eyes: Reports as per HPI and Reports no additional eye complaints < Reilly Galvin MD - Last Filed: 09/18/24 06:57> ENT: Reports system reviewed and no additional complaints, except as documented and Reports as per HPI <Reilly Galvin MD - Last Filed: 09/18/24 06:57> Cardiovascular: Cardiovascular: Reports as per HPI and Reports no additional cardiovascular complaints <Reilly aGlvin MD - Last Filed: 09/18/24 06:57> Respiratory: Respiratory: Reports as per HPI, Reports no additional respiratory complaints and Reports dyspnea <Reilly Galvin MD - Last Filed: 09/18/24 06:57> Gastrointestinal: Gastrointestinal: Reports as per HPI, Reports no additional gastrointestinal complaints, Reports diarrhea, Reports nausea and Reports vomiting <Reilly Galvin MD - Last Filed: 09/18/24 06:57> Genitourinary: Genitourinary: Reports no additional male genitourinary complaints <Reilly Galvin MD - Last Filed: 09/18/24 06:57> Musculoskeletal: Musculoskeletal: Reports no additional musculoskeletal complaints and Reports as per HPI <Reilly Galvin MD - Last Filed: 09/18/24 06:57> Integumentary/Breasts: Skin/Breast: Reports system reviewed and no additional complaints, except as docu and Reports as per HPI <Reilly Galvin MD - Last Filed: 09/18/24 06:57> Neurologic: Reports system reviewed and no additional complaints, except as documented and Reports as per HPI <Reilly Galvin MD - Last Filed: 09/18/24 06:57> Psychiatric: Psychiatric: Reports no additional psychiatric complaints and Reports as per HPI <Reilly Galvin MD - Last Filed: 09/18/24 06:57> Endocrine: Endocrine: Reports no additional endocrine complaints and Reports as per HPI <Reilly Galvin MD - Last Filed: 09/18/24 06:57> Hematologic/Lymphatic: Hematologic/Lymphatic: Reports no additional hematologic/lymphatic complaints and Reports as per HPI <Reilly Galvin MD - Last Filed: 09/18/24 06:57> Allergic/Immunologic: Allergic/Immunologic: Reports no additional allergic/immunologic complaints and Reports as per HPI <Reilly Galvin MD - Last Filed: 09/18/24 06:57> [facility] Past Medical History Medical History: Medical History TIA (transient ischemic attack) Right-sided extracranial carotid artery stenosis COPD (chronic obstructive pulmonary disease) Diabetes mellitus CHF (congestive heart failure) Atrial fibrillation Aortic valve disease <Reilly Galvin MD - Last Filed: 09/18/24 06:57> Surgical History Surgical History: Surgical History H/O aortic valve replacement <Reilly Galvin MD - Last Filed: 09/18/24 06:57> Family History Family History: Family History Father Hypertension Heart disease Mother Cancer Diabetes mellitus Hypertension <Reilly Galvin MD - Last Filed: 09/18/24 06:57> Social History Social History: Social History Smoking status: Never smoker Alcohol intake: never Substance use: never Substance use type: does not use Do You Feel Safe in your Home?: Yes Lack of Transportation: No Lack of Food: Never True Current Housing: I Have Housing Concerned About Future Housing: No Difficulty Paying Gas/Electric Bills: No Difficulty Paying for Meds: No Currently Unemployed: No Education: High School Diploma/GED Difficulty w/ Childcare or Family Care: No Living arrangements: with family Occupation/Education: retired Gender identity (if verbalized by the patient): Male Spiritual care concerns: No <Reilly Galvin MD - Last Filed: 09/18/24 06:57> Exam 2 Narrative: 169. Blood pressure 143/58. Afebrile. Oxygen saturation of 98% on room air. <Reilly Galvin MD - Last Filed: 09/18/24 06:57> Const: General: no acute distress <Reilly Galvin MD - Last Filed: 09/18/24 06:57> Orientation/consciousness: patient oriented x3 <Reilly Galvin MD - Last Filed: 09/18/24 06:57> Limitations: no limitations <Reilly Galvin MD - Last Filed: 09/18/24 06:57> HENMT: Head: normal to inspection <Reilly Galvin MD - Last Filed: 09/18/24 06:57> Ears: external ears normal <Reilly Galvin MD - Last Filed: 09/18/24 06:57> Face/Nose/Sinus: Normal external nose present <Reilly Galvin MD - Last Filed: 09/18/24 06:57> Face and sinus: normal facial exam <Reilly Galvin MD - Last Filed: 09/18/24 06:57> Mouth: Yes Normal oral and palatal mucosa present and Yes moist mucous membranes <Reilly Galvin MD - Last Filed: 09/18/24 06:57> Throat: posterior oropharynx normal <Reilly Galvin MD - Last Filed: 09/18/24 06:57> Eyes: Conjunctivae: conjunctivae normal <Reilly Galvin MD - Last Filed: 09/18/24 06:57> Cornea: corneas normal <Reilly Galvin MD - Last Filed: 09/18/24 06:57> Pupils: Equal, round and reactive pupils present <Reilly Galvin MD - Last Filed: 09/18/24 06:57> EOM: EOMs intact bilaterally <Reilly Galvin MD - Last Filed: 09/18/24 06:57> Direct Ophthalmoscopy: no photophobia <Reilly Galvin MD - Last Filed: 09/18/24 06:57> Neck: Neck: normal visual inspection, no lymphadenopathy and no meningeal signs <Reilly Galvin MD - Last Filed: 09/18/24 06:57> Chest: Chest palpation & inspection: normal inspection of the chest < Reilly Galvin MD - Last Filed: 09/18/24 06:57> Resp: Effort & Inspection: normal respiratory effort <Reilly Galvin MD - Last Filed: 09/18/24 06:57> Auscultation: clear to auscultation bilaterally <Reilly Galvin MD - Last Filed: 09/18/24 06:57> Cardio: Rate: regular rate <Reilly Galvin MD - Last Filed: 09/18/24 06:57> Rhythm: regular rhythm <Reilly Galvin MD - Last Filed: 09/18/24 06:57> GI: GI Palp: Yes Soft to palpation <Reilly Galvin MD - Last Filed: 09/18/24 06:57> Auscultation: normal bowel sounds <Reilly Galvin MD - Last Filed: 09/18/24 06:57> Other: No tenderness/rigidity / rebound. <Reilly Galvin MD - Last Filed: 09/18/24 06:57> : General: Yes no CVA tenderness <Reilly Galvin MD - Last Filed: 09/18/24 06:57> Back/Spine/Pelvis: Back: no CVA tenderness <Reilly Galvin MD - Last Filed: 09/18/24 06:57> Skin: General skin exam: normal color <Reilly Galvin MD - Last Filed: 09/18/24 06:57> Rashes: no rashes <Reilly Galvin MD - Last Filed: 09/18/24 06:57> Wounds: no wounds <Reilly Galvin MD - Last Filed: 09/18/24 06:57> Neuro: General: patient oriented x3, moves all extremities, no meningeal signs, no focal motor deficits and CN's II-XI intact bilaterally <Reilly Galvin MD - Last Filed: 09/18/24 06:57> Cranial nerves: Yes Nystagmus not present <Reilly Galvin MD - Last Filed: 09/18/24 06:57> Speech: normal speech <Reilly Galvin MD - Last Filed: 09/18/24 06:57> Gait exam (Neuro): Normal gait present <Reilly Galvin MD - Last Filed: 09/18/24 06:57> Extrem: General: normal to inspection and no clubbing, cyanosis or edema < Reilly Galvin MD - Last Filed: 09/18/24 06:57> Psych: Mental Status: mental status grossly normal <Reilly Galvin MD - Last Filed: 09/18/24 06:57> Affect: normal affect <Reilly Galvin MD - Last Filed: 09/18/24 06:57> Attitude: cooperative <Reilly Galvin MD - Last Filed: 09/18/24 06:57> Course Course Emergency Course: Gastroenteritis -- patient received Compazine with improvement of nausea and vomiting. acute on chronic renal failure. the patient's BUN/ creatinine increased from 23/1.17 to 29/1.49 hypokalemia-- patient was noted to have potassium of 2.9. Patient received 500 mL of LR and 20 mEq of potassium. Will recheck potassium. Compensated CHF- chest x-ray revealed mild interstitial edema. Patient had a proBNP of 1 849. <Reilly Galvin MD - Last Filed: 09/18/24 06:57> Gastroenteritis -- patient received Compazine with improvement of nausea and vomiting. acute on chronic renal failure. the patient's BUN/ creatinine increased from 23/1.17 to 29/1.49 hypokalemia-- patient was noted to have potassium of 2.9. Patient received 500 mL of LR and 20 mEq of potassium. Will recheck potassium. Compensated CHF- chest x-ray revealed mild interstitial edema. Patient had a proBNP of 1 849. Potassium at 2.8 received K rider and some a dose of potassium p.o. will discharge patient on KCl 20 mEq b.i.d. x4 days. <Ubaldo Phillips MD - Last Filed: 09/18/24 07:32> Vital Signs Vital signs: Vital Signs Temperature 36.8 C 09/18/24 03:05 Pulse Rate 69 09/18/24 03:05 Respiratory Rate 20 09/18/24 03:05 Blood Pressure 143/58 H 09/18/24 03:05 Pulse Oximetry 98 09/18/24 03:05 Oxygen Delivery Room Air 09/18/24 03:05 Temperature 36.3 C L 09/18/24 03:19 Pulse Rate 64 09/18/24 04:14 Respiratory Rate 18 09/18/24 04:14 Blood Pressure 132/82 09/18/24 04:14 Pulse Oximetry 97 09/18/24 04:14 Oxygen Delivery Room Air 09/18/24 04:14 <Reilly Galvin MD - Last Filed: 09/18/24 06:57> Vital Signs Temperature 36.8 C 09/18/24 03:05 Pulse Rate 69 09/18/24 03:05 Respiratory Rate 20 09/18/24 03:05 Blood Pressure 143/58 H 09/18/24 03:05 Pulse Oximetry 98 09/18/24 03:05 Oxygen Delivery Room Air 09/18/24 03:05 Temperature 36.3 C L 09/18/24 03:19 Pulse Rate 64 09/18/24 04:14 Respiratory Rate 18 09/18/24 04:14 Blood Pressure 132/82 09/18/24 04:14 Pulse Oximetry 97 09/18/24 04:14 Oxygen Delivery Room Air 09/18/24 04:14 <Ubaldo Phillips MD - Last Filed: 09/18/24 07:32> MDM - Nausea/Vomiting/Diarrhea MDM Narrative Medical decision making narrative: gastroenteritis acute on chronic renal failure hypokalemia Compensated CHF <Reilly Galvin MD - Last Filed: 09/18/24 06:57> Differential Diagnosis Differential diagnosis: Likely traveler's diarrhea and food poisoning <Reilly Galvin MD - Last Filed: 09/18/24 06:57> Medical Records Attestation: I reviewed the patient's medical records. <Reilly Galvin MD - Last Filed: 09/18/24 06:57> Lab Data Result diagrams: 09/18/24 03:38 09/18/24 07:03 <Reilly Galvin MD - Last Filed: 09/18/24 06:57> Labs: Lab Results 09/18/24 09/18/24 Range/Units 03:38 07:03 WBC 6.2 (4.8-10.8) K/mm3 RBC 4.24 L (4.70-6.10) M/mm3 Hgb 12.7 (12.4-15.3) g/dL Hct 39.6 (37.0-46.0) % MCV 93.4 (78.0-102.0) fL MCH 30.0 (27.0-31.0) pg MCHC 32.1 (32-36) g/dL RDW 14.2 (11.6-14.4) % Plt Count 176 (150-420) K/mm3 MPV 11.5 H (8.7-11.0) fl Immature Gran % (Auto) 0.3 H (0.0-0.0) % Neut % (Auto) 62.7 (50.0-70.0) % Lymph % (Auto) 25.1 (18.0-42.0) % [place] % (Auto) 11.3 H (2.0-11.0) % Eos % (Auto) 0.3 L (1.0-6.0) % Baso % (Auto) 0.3 (0.0-1.0) % Lymph # (Auto) 1.55 (1.10-4.50) K/mm3 [place] # (Auto) 0.70 (0.10-0.90) K/mm3 Eos # (Auto) 0.02 (0.02-0.50) K/mm3 Baso # (Auto) 0.02 (0.00-0.10) K/mm3 Abs Immat Gran (auto) 0.02 H (0.00-0.00) K/mm3 Absolute Neuts (auto) 3.86 (1.70-7.20) K/mm3 Absolute Nucleated RBC 0.00 (0.00-0.00) K/mm3 Nucleated RBC % 0.0 (0-0.0) % Sodium 139 137 (136-145) mmol/L Potassium 2.9 L 2.8 L (3.5-5.1) mmol/L Chloride 100 102 (98-108) mmol/L Carbon Dioxide 28 26 (21-32) mmol/L Anion Gap 11 9 (4-12) mmol/L BUN 29 H 29 H (7-18) mg/dL Creatinine 1.49 H 1.40 H (0.70-1.30) mg/dL Estim Creat Clear Calc 62 66 ml/min Estimated GFR 45 L 48 L (59 - ) Glucose 65 L 69 L (70-99) mg/dL Calculated Osmolality 291 287 (285-295) mOsm/kg Calcium 8.4 L 8.0 L (8.5-10.1) mg/dL Magnesium 1.8 (1.8-2.4) mg/dL Total Bilirubin 0.3 (0.00-1.00) mg/dL AST 24 (15-37) U/L ALT 16 (16-63) U/L Alkaline Phosphatase 49 (46-116) U/L Troponin I 31.2 (0.00-60.4) ng/L NT-Pro-B Natriuret Pep 1849 H (0-450) pg/mL Total Protein 7.0 (6.4-8.2) g/dL Albumin 2.9 L (3.4-5.0) g/dL Influenza A (RT-PCR) Negative (Negative) Influenza B (RT-PCR) Negative (Negative) RSV (RT-PCR) Negative (Negative) SARS-CoV-2 RNA (RT-PCR) Negative (Negative) <Reilly Galvin MD - Last Filed: 09/18/24 06:57> Lab Results 09/18/24 09/18/24 Range/Units 03:38 07:03 WBC 6.2 (4.8-10.8) K/mm3 RBC 4.24 L (4.70-6.10) M/mm3 Hgb 12.7 (12.4-15.3) g/dL Hct 39.6 (37.0-46.0) % MCV 93.4 (78.0-102.0) fL MCH 30.0 (27.0-31.0) pg MCHC 32.1 (32-36) g/dL RDW 14.2 (11.6-14.4) % Plt Count 176 (150-420) K/mm3 MPV 11.5 H (8.7-11.0) fl Immature Gran % (Auto) 0.3 H (0.0-0.0) % Neut % (Auto) 62.7 (50.0-70.0) % Lymph % (Auto) 25.1 (18.0-42.0) % [place] % (Auto) 11.3 H (2.0-11.0) % Eos % (Auto) 0.3 L (1.0-6.0) % Baso % (Auto) 0.3 (0.0-1.0) % Lymph # (Auto) 1.55 (1.10-4.50) K/mm3 [place] # (Auto) 0.70 (0.10-0.90) K/mm3 Eos # (Auto) 0.02 (0.02-0.50) K/mm3 Baso # (Auto) 0.02 (0.00-0.10) K/mm3 Abs Immat Gran (auto) 0.02 H (0.00-0.00) K/mm3 Absolute Neuts (auto) 3.86 (1.70-7.20) K/mm3 Absolute Nucleated RBC 0.00 (0.00-0.00) K/mm3 Nucleated RBC % 0.0 (0-0.0) % Sodium 139 137 (136-145) mmol/L Potassium 2.9 L 2.8 L (3.5-5.1) mmol/L Chloride 100 102 (98-108) mmol/L Carbon Dioxide 28 26 (21-32) mmol/L Anion Gap 11 9 (4-12) mmol/L BUN 29 H 29 H (7-18) mg/dL Creatinine 1.49 H 1.40 H (0.70-1.30) mg/dL Estim Creat Clear Calc 62 66 ml/min Estimated GFR 45 L 48 L (59 - ) Glucose 65 L 69 L (70-99) mg/dL Calculated Osmolality 291 287 (285-295) mOsm/kg Calcium 8.4 L 8.0 L (8.5-10.1) mg/dL Magnesium 1.8 (1.8-2.4) mg/dL Total Bilirubin 0.3 (0.00-1.00) mg/dL AST 24 (15-37) U/L ALT 16 (16-63) U/L Alkaline Phosphatase 49 (46-116) U/L Troponin I 31.2 (0.00-60.4) ng/L NT-Pro-B Natriuret Pep 1849 H (0-450) pg/mL Total Protein 7.0 (6.4-8.2) g/dL Albumin 2.9 L (3.4-5.0) g/dL Influenza A (RT-PCR) Negative (Negative) Influenza B (RT-PCR) Negative (Negative) RSV (RT-PCR) Negative (Negative) SARS-CoV-2 RNA (RT-PCR) Negative (Negative) <Ubaldo Phillips MD - Last Filed: 09/18/24 07:32> Imaging Data Attestation: I personally reviewed and interpreted this imaging study as follows: < Reilly Galvin MD - Last Filed: 09/18/24 06:57> My impression: Cardiomegaly. <Reilly Galvin MD - Last Filed: 09/18/24 06:57> ECG Data EKG #1: ECG completion date: 09/18/24 <Reilly Galvin MD - Last Filed: 09/18/24 06:57> ECG completion time: 03:41 <Reilly Galvin MD - Last Filed: 09/18/24 06:57> Interpretation: Atrial fibrillation with a ventricular rate of 75. Normal axis. The bundle-branch block pattern. No ST elevation. <Reilly Galvin MD - Last Filed: 09/18/24 06:57> Discharge Plan Discharge Clinical Impression: Hypokalemia, Gastroenteritis CHF (congestive heart failure) Qualifiers: Heart failure type: diastolic Heart failure chronicity: acute on chronic Q ualified Code(s): I50.33 - Acute on chronic diastolic (congestive) heart failure Acute on chronic renal failure Qualifiers: Acute renal failure type: unspecified Chronic kidney disease stage: stage 2 (GFR 60-89) Qualified Code(s): N17.9 - Acute kidney failure, unspecified <Reilly Galvin MD - Last Filed: 09/18/24 06:57> Patient Language: French <Reilly Galvin MD - Last Filed: 09/18/24 06:57> Prescriptions: No Action apixaban 5 mg tablet 5 mg PO BID aspirin [Adult Aspirin Regimen] 81 mg tablet,delayed release (DR/EC) 81 mg PO DAILY glipizide 5 mg tablet extended release 24hr 5 mg PO DAILY (DME) lancets 30 gauge misc See Rx Instructions .Route Rx Instructions: As directed albuterol sulfate 90 mcg/actuation HFA aerosol inhaler 1 inh inhalation Q4H PRN (Reason: Shortness Of Breath Or Wheezing) atorvastatin 80 mg tablet 80 mg PO DAILY carvedilol 25 mg tablet 25 mg PO BID Qty: 180 3RF doxazosin 4 mg tablet 4 mg PO DAILY Qty: 90 3RF losartan 100 mg tablet 100 mg PO DAILY Qty: 90 3RF amlodipine 10 mg tablet 10 mg PO DAILY Qty: 90 3RF furosemide 40 mg tablet 40 mg PO DAILY Qty: 90 3RF (DME) blood-glucose meter [Accu-Chek Guide Glucose Meter] Misc See Rx Instructions .Route Qty: 1 3RF Rx Instructions: Check Blood Glucose 1xday As directed (DME) Accu-Chek Guide test strips Strip See Rx Instructions .Route Qty: 100 3RF Rx Instructions: Check blood glucose 1xday As directed <Reilly Galvin MD - Last Filed: 09/18/24 06:57> Follow-up/Referrals: UNKNOWN,DOCTOR [Primary Care Provider] - <Reilly Galvin MD - Last Filed: 09/18/24 06:57>
[2024-09-18 04:05] LABS: Basophils Absolute Auto 0.02 K/mm3 (0.00-0.10); Basophils Percent Auto 0.3 % (0.0-1.0); Eosinophils Absolute Auto 0.02 K/mm3 (0.02-0.50); Eosinophils Percent Auto 0.3 % (1.0-6.0); Hematocrit 39.6 % (37.0-46.0); Hemoglobin 12.7 g/dL (12.4-15.3); Immature Granulocyte Absolute 0.02 K/mm3 (0.00-0.00); Immature Granulocyte Percent A 0.3 % (0.0-0.0); Lymphocytes Absolute Auto 1.55 K/mm3 (1.10-4.50); Lymphocytes Percent Auto 25.1 % (18.0-42.0); Mean Corpuscular HGB Conc 32.1 g/dL (32-36); Mean Corpuscular Volume 93.4 fL (78.0-102.0); Mean Platelet Volume 11.5 fl (8.7-11.0); Monocytes Percent Auto 11.3 % (2.0-11.0); Neutrophils Absolute Auto 3.86 K/mm3 (1.70-7.20); Neutrophils Percent Auto 62.7 % (50.0-70.0); Platelet Count Result 176 K/mm3 (150-420); Red Blood Count 4.24 M/mm3 (4.70-6.10); Red Cell Distribution Width 14.2 % (11.6-14.4); White Blood Count 6.2 K/mm3 (4.8-10.8)
--- OUTSIDE RECORDS SUMMARY | 2024-09-18 04:06 | XMS_ITS | Referral Summary ---
Author Organization [facility] Address [address] [place] [address] Care Team Providers Care Steel Detailer Name Role Phone Barry Ralph MD Primary Care Provider [phone] Rehan Sheth MD Unavailable [phone] Sangita Moore RN Unavailable [phone] Encounters Date Type Department Care Team Description 09/17/2024 SHOP/CHAP Subsequent Outreach [facility] OP CASE MANAGEMENT [address] [place] [phone] Sangita Moore, RN 09/15/2024 SHOP/CHAP Initial Outreach [facility] OP CASE MANAGEMENT [address] [place] [phone] Sangita Moore, RN 09/15/2024 Telephone [facility] Cardiology [address] [place] [address] 8th [place] [address] [place] [address] Rehan Sheth MD f/u orders 09/15/2024 SHOP/CHAP Initial Eligibility Review [facility] OP CASE MANAGEMENT [address] [place] [address] Sangita Moore RN 09/11/2024 12:49 PM PRESS SECRETARY - 09/14/2024 12:22 PM PRESS SECRETARY Hospital Encounter [facility] 1 [place] [address] Joseph Lucas MD [place], MD Melissa King, Dalila Jean MD Chest pain, unspecified type (Primary Dx) Discharge Disposition: Discharge to home or self care 09/11/2024 Documentation [facility] Cardiology [address] [place] [address] Advanced Medicine 8th [place] [address] [place] [address] Rehan Sheth MD 09/11/[address] Advanced [facility] 8th [place] [address] [place] [address] Rehan Sheth MD Symptoms update 09/10/[address] [facility] 8th [place] [address] [place] [address] Rehan Sheth MD Cardiac Clearance request 09/10/2024 12:25 PM PRESS SECRETARY Lab [facility] ([facility]) [address] [place] [phone] Chronic heart failure with preserved ejection fraction (CMS/HCC) (HCC) 09/10/2024 11:15 AM PRESS SECRETARY Office Visit [address] 8th [place] [address] [place] [address] Rehan Sheth MD Chronic heart failure with preserved ejection fraction (CMS/HCC) (HCC) (Primary Dx); 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) 09/10/[address] Advanced [facility] 8th [place] [address] [place] [address] Rehan Sheth MD Chest symptoms 09/09/2024 Telephone [facility] Cardiology [facility] 8th [place] [address] [place] [phone] Rehan Sheth MD Samples/and report of ER eval 09/01/2024 Telephone [facility] Neurosurgery [facility] Medical Office Building [address] [place] [address] Clayton Robertson DO 08/26/2024 11:32 AM PRESS SECRETARY - 08/26/2024 11:59 PM PRESS SECRETARY Hospital Encounter [id number] Radiology [address] [place] [address] [address] [place] [address] Lumbar spondylosis; Chronic bilateral low back pain, unspecified whether sciatica present Discharge Disposition: Discharge to home or self care 08/26/2024 12:30 PM PRESS SECRETARY Office Visit [facility] Neurosurgery [facility] Medical Office [facility] 4 [address] [place] [address] Clayton Robertson DO 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) 08/06/2024 Orders Only [facility] Neurosurgery [address] [place] [address] Medical Office Building [address] [place] [address] Clayton Robertson DO Lumbar spondylosis (Primary Dx); Chronic bilateral low back pain, unspecified whether sciatica present 07/04/2024 10:37 AM PRESS SECRETARY - 07/04/2024 11:59 PM PRESS SECRETARY Hospital Encounter [facility] [address] [place] [address] Aleksander Shankar MD 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); Sacroiliac joint pain; Lumbar spondylosis Discharge Disposition: Discharge to home or self care 06/26/2024 Orders Only [facility] Cardiology [address] [place] [address] 8th [place] [address] [place] [phone] Naila Cortez RN High risk medications (not anticoagulants) long-term use (Primary Dx) 06/19/2024 SHOP/CHAP Subsequent Outreach [facility] OP CASE MANAGEMENT 1 [place] [address] Rosalee Crowder, REGULATORY COMPLIANCE MANAGER from Last 3 Months Allergies No known active allergies Medications albuterol HFA (PROVENTIL HFA,VENTOLIN HFA,PROAIR HFA) 90 mcg/actuation inhaler Inhale 2 puffs as needed for shortness of breath Active True Metrix Glucose Meter kit USE DIRECTED 1 kit Active lancets (N2Care Delica Plus Lancet) 30 gauge miscIndications:Ty pe 2 diabetes mellitus with hyperosmolarity without coma, without long-term current use of insulin ([facility]) ([facility]) Use to check blood sugar 3x daily 300 each 2 Active blood glucose diagnostic (True Metrix Glucose Test Strip) stripIndications:T ype 2 diabetes mellitus with hyperosmolarity without coma, without long-term current use of insulin ([facility]) ([facility]) TEST BLOOD SUGAR EVERY DAY 100 [...] type 09/11/2024 Coronary artery disease invo lving houlton coronary artery of houlton heart with angina pectoris 09/10/2024 Internal carotid artery stenosis, right 06/12/20 Chronic heart failure with p reserved ejection fraction (CMS/HCC) 06/12/2024 Stage 2 chronic kidney disease 06/12/2024 Thrombocytopenia 06/12/2024 Bilateral leg weakness 06/06/2024 NSTEMI (non-ST elevated myocardial infarction) ( [facility]) 05/20/2024 Assessment & Plan (05/21/2024 11:10 AM CDT): Repeat [facility] on 05/20/2024 showed: 60-70% lesion to mid LAD (with a positive IFR of 0.78) and a 90% lesion lesion to ostial circ; RCA with a known PLUG DRILL OPERATOR (angiography not performed). -s/p Successful PCI to [...] Plan (05/20/2024 11:34 AM CDT): Went to [facility] 05/17 for SOB, new 2L O2 requirement - OSH workup: Trp 1.95>5.1>10, proBNP 6800, CXR w/ mild interstitial edema - OSH [facility] 05/19 w/ L main widely patent, LAD proximal body 80% stenosis, LAD stent w/ moderate ISR, L cx w/ 95% stenosis in proximal body, OM branches w/ mild disease, RCA is PLUG DRILL OPERATOR in mid body w/ L to R collaterals - cath films uploaded - OSH TTE reportedly w/ EF 50%, AV prosthesis w/o abnormal gradients - trop here 7,[id number], repeat pending - currently denies chest pain or pressure, sob improving - PCI today - continue heparin drip - continue asa, coreg, atorvastatin 80mg - telemetry Assessment & Plan (05/20/2024 1:02 AM CDT): Went to [facility] 05/17 for SOB, new 2L O2 requirement - OSH workup: Trp 1.95>5.1>10, proBNP 6800, CXR w/ mild interstitial edema - OSH [facility] 05/19 w/ L main widely patent, LAD proximal body 80% stenosis, LAD stent w/ moderate ISR, L cx w/ 95% stenosis in proximal body, OM branches w/ mild disease, RCA is PLUG DRILL OPERATOR in mid body w/ L to R [...] & Plan (05/21/2024 10:58 AM CDT): P/t [facility] 05/17 for SOB, on 3.5L now [...] & Plan (05/20/2024 11:50 AM CDT): P/t [facility] 05/17 for SOB, on 3.5L now [...] & Plan (05/20/2024 1:00 AM CDT): P/t [facility] 05/17 for SOB, on 2L now [...] salt diet Acute on chronic heart failure ([facility]) 024 Assessment & Plan (05/21/2024 [...] benefi Assessment & Plan (07/04/2024 1:02 PM PRESS SECRETARY): He may just be symptomatic from his [...] Assessment & Plan (03/17/2024 1:48 PM CDT): [employer] stenosis and 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 Still [...] stenosis. Assessment & Plan (07/04/2024 1:03 PM PRESS SECRETARY): Failed LMBB. 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 Sheth helps [...] quiescent Assessment & Plan (09/04/2018 10:33 AM PRESS SECRETARY): COPD is unchanged. COPD information handout given. [...] to PT - wants to go to [facility]. Trial robaxin. Flexeril on med list [...] no Assessment & Plan (10/01/2019 10:35 AM PRESS SECRETARY): S2 makes a wonderfully crisp snap w/o any regurge Gastroesophageal reflux disease 09/17/2014 Tussive syncope 08/25/2014 Syncope and collapse 08/21/2014 Syncope 08/21/2014 Type 2 diabetes mellitus 07/10/2014 Overview (05/13/2021): Was on levemir but stopped 2015 then on trulicity so on metformin ALONE We had better control w/ Katiediance -since he has been w/ Dr Stockton [phone] has been on Actose and metformin- Off [...] heart- Assessment & Plan (10/01/2019 10:30 AM PRESS SECRETARY): His A1C has crept to 7.5% Admits [...] covered Assessment & Plan (09/04/2018 10:42 AM PRESS SECRETARY): Diabetes is worsening. Continue current treatment regimen. Reminded to bring in blood sugar diary at next visit. Dietary recommendations for ADA diet. Regular aerobic exercise. Discussed foot care. Reminded to get yearly retinal exam. Diabetes will be reassessed in 3 months. Given his financial concerns my advice is to use food as [facility] medicine Obesity with body mass index 30 or greater 07/09 Generalized anxiety disorder 07/09/2014 Assessment & Plan (10/01/2019 10:32 AM PRESS SECRETARY): He gets along nicely w/ a low [...] A virus 07/27/2017 02/22/2018 Paroxysmal atrial fibrillation ([facility]/HCC) 07/02/2017 09/04/2018 Overview (02/22/2018): Was on NOAC [...] Tobacco: Never Tobacco Cessation:Counseling Given: Not Answered [facility] [employer] Answer Date Recorded In the past 12 months has [employer], gas, oil, or water [employer] threatened to shut off services in your [...] week 09/15/2024 How often do you attend [facility] or sikhism services? More than 4 times per year 09/15/2024 Do you belong to any clubs o r organizations such as advent groups, unions, fraternal or athletic groups, or [...] Date Recorded PHQ-2 Total Score 0 09/12/2024 [facility] of Occupat ional Health - Occupational Stress [...] place to sleep or slept in a skilled nursing (including now)? No 01/01/2024 Housing Stability Vital Sign Answer Deangelo e Recorded In the last 12 months, was t here a time when you were not able to pay the mortgage or rent on time? No 09/15/2024 In the past 12 months, how m any times have you moved where you were living? 1 09/15/2024 At any time in the past 12 m [facility], were you homeless or living in a skilled nursing (including now)? No 09/15/2024 Personal Safety Answer Date Recorded Have you ever been in or are you currently in a harmful physical or emotional relationship or is someone making you feel afraid or unsafe? Denies 09/11/2024 Sex and Gender Information Value Date Recorded Sex Assigned at Not on file Legal Sex Male 8:23 PM PRESS SECRETARY Gender Identity Not on file Sexual Orientation Not on file Last Filed Vital Signs Vital Sign Reading Time Taken Comments Blood Pressure 133/57 09/14/2024 7:33 AM PRESS SECRETARY Pulse 64 09/14/2024 7:33 AM PRESS SECRETARY Temperature 36.8 ??C (98.2 ??F) 09/14/2024 7:33 AM CS T Respiratory Rate 18 09/14/2024 7:33 AM PRESS SECRETARY Oxygen Saturation 95% 09/14/2024 7:33 AM PRESS SECRETARY Inhaled Oxygen Concentration - - Weight 100.6 kg (221 lb 12.8 oz) 09/14/2024 4:49 AM PRESS SECRETARY Height 182.9 cm (6') 09/11/2024 4:35 PM PRESS SECRETARY Body Mass Index 30.08 09/11/2024 4:35 PM PRESS SECRETARY Plan of Treatment Not on file Goals Goal Patient Goal Type Associated Problems Recent Progress Patient-Stated? Author CCM Chronic Pain Care Plan Chronic Care Management Improving( 10:49 AM PRESS SECRETARY) No Nenita Santiago, TIM Note: Problem: Chronic [...] and vomiting. Medical Devices Implanted Type Area Shagger Device Identifier Shelf Expiration Date Model / Serial / Lot [employer] Angio-Seal Vip Bondek-Plus 8fr .038in 70cm Hemostatic Latex Free [id number] - [id number] - [id number] Implanted:Qty : 1 on 05/20/2024 by Papo Rascon MD at [facility] Collagen Right: Common Femoral Artery [employer] 12/10/2024 [id number] / [id number] / [id number] Prosthetic Valve Prosthetic Valve Heart Description:Heart Valve Medtronic Card Vasc Surgery 4.0 X 12mm Shar Alexander Rx Coronary Stent [id number] - [id number] Implanted:Qty : 1 on 05/20/2024 by Vitor Pedroza MD at [facility] Stent N/A: Circumflex Coronary Artery Medtronic Card Vasc Surgery 01/11/2027 [id number] / [id number] / [id number] Medtronic Card Vasc Surgery 4.0 X 12mm Shar Alexander Rx Coronary Stent [id number] - [id number] Implanted:Qty : 1 on 05/20/2024 by Vitor Pedroza MD at [facility] Stent Left: Anterior Descending Cornary Artery Medtronic Card Vasc Surgery 11/14/2026 [id number] / [id number] / [id number] Procedures Procedure Name Priority Date/Time Associated Diagnosis Comments EGFR STAT 09/14/2024 8:23 AM PRESS SECRETARY BASIC METABOLIC PANEL STAT 09/14/2024 8:23 AM PRESS SECRETARY EGFR Routine 09/13/2024 9:57 PM PRESS SECRETARY CBC WITHOUT DIFFERENTIAL Routine 09/13/2024 9:57 PM PRESS SECRETARY MAGNESIUM Routine 09/13/2024 9:57 PM PRESS SECRETARY BASIC METABOLIC PANEL Routine 09/13/2024 9:57 PM PRESS SECRETARY EGFR Routine 09/12/2024 8:13 PM PRESS SECRETARY CBC WITHOUT DIFFERENTIAL Routine 09/12/2024 8:13 PM PRESS SECRETARY MAGNESIUM Routine 09/12/2024 8:13 PM PRESS SECRETARY BASIC METABOLIC PANEL Routine 09/12/2024 8:13 PM PRESS SECRETARY SODIUM, URINE, RANDOM Routine 09/12/2024 12:36 PM PRESS SECRETARY POCT GLUCOSE DEVICE Routine 09/12/2024 7 :52 AM PRESS SECRETARY POCT GLUCOSE DEVICE Routine 09/12/2024 6 :21 AM PRESS SECRETARY POCT GLUCOSE DEVICE Routine 09/12/2024 2 :15 AM PRESS SECRETARY EGFR Routine 09/11/2024 11:44 PM PRESS SECRETARY CBC WITHOUT DIFFERENTIAL Routine 09/11/2024 11:44 PM PRESS SECRETARY MAGNESIUM Routine 09/11/2024 11:44 PM PRESS SECRETARY BASIC METABOLIC PANEL Routine 09/11/2024 11:44 PM PRESS SECRETARY POCT GLUCOSE DEVICE Routine 09/11/2024 8 :14 PM PRESS SECRETARY POCT GLUCOSE DEVICE Routine 09/11/2024 5 :23 PM PRESS SECRETARY TROPONIN I HIGH-SENSITIVITY 4-HOUR Timed 09/11/2024 3:10 PM PRESS SECRETARY POCUS CARDIAC 09/11/2024 1:58 PM PRESS SECRETARY PRO B-TYPE NATRIURETIC PEPTIDE STAT 09/11/2024 1:30 PM PRESS SECRETARY TROPONIN I HIGH-SENSITIVITY 2-HOUR Timed 09/11/2024 1:30 PM PRESS SECRETARY XR CHEST PA LATERAL 2 VIEWS ED 09/11/2024 11:13 AM PRESS SECRETARY EGFR STAT 09/11/2024 11:03 AM PRESS SECRETARY DIFFERENTIAL AUTO STAT 09/11/2024 11: 03 AM PRESS SECRETARY TROPONIN I HIGH-SENSITIVITY SERIES (BASELINE, 2HR, 4HR, 6HR) STAT 09/11/2024 11:03 AM PRESS SECRETARY COMPREHENSIVE METABOLIC PANEL STAT 09/11/2024 11:03 AM PRESS SECRETARY CBC WITH AUTO DIFFERENTIAL STAT 09/11/2024 11:03 AM PRESS SECRETARY ECG 12-LEAD STAT 09/11/2024 10:52 AM PRESS SECRETARY POCT GLUCOSE DEVICE Routine 09/11/2024 1 0:48 AM PRESS SECRETARY EGFR Routine 09/10/2024 12:26 PM PRESS SECRETARY Chronic heart failure with preserved ejection fraction (CMS/HCC) (HCC) PRO B-TYPE NATRIURETIC PEPTIDE Routine 09/10/2024 12:26 PM PRESS SECRETARY Chronic heart failure with preserved ejection fraction (CMS/HCC) (HCC) BASIC METABOLIC PANEL Routine 09/10/2024 12:26 PM PRESS SECRETARY Chronic heart failure with preserved ejection fraction (CMS/HCC) (HCC) ECG 12-LEAD Routine 09/10/2024 11:33 AM PRESS SECRETARY Chronic heart failure with preserved ejection fraction (CMS/HCC) (HCC) XR SCOLIOSIS AP LAT Schedule Routine, Read Routine (OP Routine) 08/26/2024 11:42 AM PRESS SECRETARY Lumbar spondylosis Chronic bilateral low back pain, unspecified whether sciatica present BASIC METABOLIC PANEL Routine 07/30/2024 12:37 PM PRESS SECRETARY High risk medications (not anticoagulants) long-term use BASIC METABOLIC PANEL Routine 07/16/2024 11:34 AM PRESS SECRETARY High risk medications (not anticoagulants) long-term use BASIC METABOLIC PANEL Routine 06/24/2024 10:29 AM PRESS SECRETARY Acute on chronic systolic heart failure (HCC) HEMOGLOBIN A1C Routine 06/07/2024 8:38 AM CDT LIPID PANEL Routine 06/07/2024 8:38 AM CDT DIABETES FOOT EXAM Routine 11/05/2020 DIABETES EYE EXAM Routine 05/05/2019 from Last 3 Months or Most Recently Relevant to Health Maintenance Results * eGFR (09/14/2024 8:23 AM PRESS SECRETARY) [facility] Signature eGFR 63 >=60 mL/min/1. 73 m2 [...] last reviewed 2021. Blood 09/14/2024 8:23 AM PRESS SECRETARY 09/14/2024 8:45 AM PRESS SECRETARY us Dalila Torres MD LAB BLOOD ORDERABLES Fi nal Result [facility] Department [place] [address] * (ABNORMAL) Basic metabolic panel (09/14/2024 8:23 AM PRESS SECRETARY) Sodium 140 135 - 145 mmol/L Potassium, pl 4.0 3.3 - 4.9 mmol/L [facility] Chloride 104 97 - 110 mmol/L [facility] CO2 27 22 - 32 mmol/L [facility] Anion gap 9 2 - 15 mmol/L [facility] BUN 28(H) 6 - 25 mg/dL [facility] Creatinine 1.14 0.80 - 1.30 mg/dL [facility] Glucose 108 70 - 199 mg/dL [facility] Comment: Interpretive Data Fasting glucose [...] 2022. Calcium 8.8 8.5 - 10.3 mg/dL [facility] Blood 09/14/2024 8:23 AM PRESS SECRETARY 09/14/2024 8:45 AM PRESS SECRETARY us Dalila Torres MD LAB BLOOD ORDERABLES Fi nal Result [facility] Department [place] [address] * (ABNORMAL) eGFR (09/13/2024 9:57 PM PRESS SECRETARY) eGFR 49(L) >=60 mL/min/1. 73 m2 Comment: [...] last reviewed 2021. Blood 09/13/2024 9:57 PM PRESS SECRETARY 09/13/2024 10:27 PM PRESS SECRETARY us Dalila Torres MD LAB BLOOD ORDERABLES Fi nal Result [facility] [place] [address] * (ABNORMAL) CBC without differential (09/13/2024 9:57 PM PRESS SECRETARY) Pathologist [facility] WBC 6.4 3.8 - 9.9 K/cumm Hgb 11.1(L) 13.0 - 17.5 g/dL [facility] Hct 33.4(L) 38.9 - 50.3 % [facility] Plt 152 150 - 400 K/cumm [facility] MPV 11.2 9.1 - 12.3 fL [facility] RBC 3.53(L) 4.30 - 5.80 M/cumm [facility] MCV 94.6 81.3 - 96.4 fL [facility] MCH 31.4 27.1 - 33.3 pg [facility] MCHC 33.2 32.3 - 35.7 g/dL [facility] RDW CV 14.9 11.1 - 14.9 % [facility] RDW SD 52.3(H) 35.7 - 48.1 fL [facility] NRBC abs 0.00 0.00 - 0.01 K/cumm [facility] Blood 09/13/2024 9:57 PM PRESS SECRETARY 09/13/2024 10:27 PM PRESS SECRETARY Dalila Torres MD LAB BLOOD ORDERABLES Fi nal Result [facility] Department [place] [address] * Magnesium (09/13/2024 9:57 PM PRESS SECRETARY) Pathologist [facility] Magnesium 2.1 1.4 - 2.5 mg/dL Blood 09/13/2024 9:57 PM PRESS SECRETARY 09/13/2024 10:27 PM PRESS SECRETARY Dalila Torres MD LAB BLOOD ORDERABLES Fi nal Result [facility] Department [place] [address] * (ABNORMAL) Basic metabolic panel (09/13/2024 9:57 PM PRESS SECRETARY) Pathologist [facility] Sodium 139 135 - 145 mmol/L Potassium, pl 3.7 3.3 - 4.9 mmol/L [facility] Chloride 102 97 - 110 mmol/L [facility] CO2 28 22 - 32 mmol/L [facility] Anion gap 9 2 - 15 mmol/L [facility] BUN 35(H) 6 - 25 mg/dL [facility] Creatinine 1.41(H) 0.80 - 1.30 mg/dL [facility] Glucose 126 70 - 199 mg/dL [facility] Comment: Interpretive Data Fasting glucose [...] 2022. Calcium 8.7 8.5 - 10.3 mg/dL [facility] Blood 09/13/2024 9:57 PM PRESS SECRETARY 09/13/2024 10:27 PM PRESS SECRETARY us Dalila Torres MD LAB BLOOD ORDERABLES Fi nal Result Performing Organization Address [facility]/ZIP Co de Phone Number [facility] Department [place] [address] * (ABNORMAL) eGFR (09/12/2024 8:13 PM PRESS SECRETARY) [facility] [address] eGFR 51(L) >=60 mL/min/1. 73 m2 Comment: [...] last reviewed 2021. Blood 09/12/2024 8:13 PM PRESS SECRETARY 09/12/2024 8:55 PM PRESS SECRETARY us Dalila Torres MD LAB BLOOD ORDERABLES Fi nal Result [facility] Department [place] [address] * (ABNORMAL) CBC without differential (09/12/2024 8:13 PM PRESS SECRETARY) WBC 7.4 3.8 - 9.9 K/cumm Hgb 11.0(L) 13.0 - 17.5 g/dL [facility] Hct 33.7(L) 38.9 - 50.3 % [facility] Plt 181 150 - 400 K/cumm [facility] MPV 11.1 9.1 - 12.3 fL [facility] RBC 3.60(L) 4.30 - 5.80 M/cumm [facility] MCV 93.6 81.3 - 96.4 fL [facility] MCH 30.6 27.1 - 33.3 pg [facility] MCHC 32.6 32.3 - 35.7 g/dL [facility] RDW CV 14.8 11.1 - 14.9 % [facility] RDW SD 51.2(H) 35.7 - 48.1 fL [facility] NRBC abs 0.00 0.00 - 0.01 K/cumm [facility] Blood 09/12/2024 8:13 PM PRESS SECRETARY 09/12/2024 8:54 PM PRESS SECRETARY Dalila Torres MD LAB BLOOD ORDERABLES Fi nal Result Performing Organization Address [facility]/ZIP Co de Phone Number [facility] [place] [address] * Magnesium (09/12/2024 8:13 PM PRESS SECRETARY) [facility] [address] Magnesium 2.0 1.4 - 2.5 mg/dL Blood 09/12/2024 8:13 PM PRESS SECRETARY 09/12/2024 8:55 PM PRESS SECRETARY Dalila Torres MD LAB BLOOD ORDERABLES Fi nal Result Performing Organization Address City/[facility] Co de Phone Number [facility] Department [place] [address] * (ABNORMAL) Basic metabolic panel (09/12/2024 8:13 PM PRESS SECRETARY) [facility] [address] Sodium 141 135 - 145 mmol/L Potassium, pl 3.8 3.3 - 4.9 mmol/L [facility] Chloride 106 97 - 110 mmol/L [facility] CO2 26 22 - 32 mmol/L [facility] Anion gap 9 2 - 15 mmol/L [facility] BUN 31(H) 6 - 25 mg/dL [facility] Creatinine 1.37(H) 0.80 - 1.30 mg/dL [facility] Glucose 102 70 - 199 mg/dL [facility] Comment: Interpretive Data Fasting glucose [...] 2022. Calcium 8.4(L) 8.5 - 10.3 mg/dL [facility] Blood 09/12/2024 8:13 PM PRESS SECRETARY 09/12/2024 8:55 PM PRESS SECRETARY us Dalila Torres MD LAB BLOOD ORDERABLES Fi nal Result Performing Organization Address City/[facility]/ZIP Co de Phone Number [facility] Department [place] [address] * Sodium, urine, random (09/12/2024 12:36 PM PRESS SECRETARY) Sodium, ur 72 mmol/L Comment: Interpretive Data No reference range established. Current interpretive data was last revised 2018. Urine 09/12/2024 12:3 6 PM PRESS SECRETARY 09/12/2024 4:22 PM PRESS SECRETARY us Dalila Torres MD LAB URINE ORDERABLES Fi nal Result [facility] [place] [address] * POCT glucose (09/12/2024 7:52 AM PRESS SECRETARY) Glucose, POC 103 70 - 199 mg/dL Blood 09/12/2024 7:52 AM PRESS SECRETARY 09/12/2024 7:52 AM PRESS SECRETARY Dalila Torres MD LAB POCT ORDERABLES - D EVICE Final Result Performing Organization Address [facility] de Phone Number [facility] [place] [address] * POCT glucose (09/12/2024 6:21 AM PRESS SECRETARY) Glucose, POC 92 70 - 199 mg/dL Blood 09/12/2024 6:21 AM PRESS SECRETARY 09/12/2024 6:21 AM PRESS SECRETARY Dalila Torres MD LAB POCT ORDERABLES - D EVICE Final Result Performing Organization Address [facility] de Phone Number [facility] [place] [address] * POCT glucose (09/12/2024 2:15 AM PRESS SECRETARY) Glucose, POC 178 70 - 199 mg/dL Blood 09/12/2024 2:15 AM PRESS SECRETARY 09/12/2024 2:15 AM PRESS SECRETARY Dalila Torres MD LAB POCT ORDERABLES - D EVICE Final Result Performing Organization Address [facility] de Phone Number [facility] [place] [address] * (ABNORMAL) eGFR (09/11/2024 11:44 PM PRESS SECRETARY) eGFR 54(L) >=60 mL/min/1. 73 m2 Comment: [...] reviewed 2021. Blood 09/11/2024 11:4 4 PM PRESS SECRETARY 09/12/2024 12:17 AM PRESS SECRETARY us Dalila Torres MD LAB BLOOD ORDERABLES Fi nal Result [facility] Department [place] [address] * (ABNORMAL) CBC without differential (09/11/2024 11:44 PM PRESS SECRETARY) WBC 7.1 3.8 - 9.9 K/cumm Hgb 11.5(L) 13.0 - 17.5 g/dL [facility] Hct 34.7(L) 38.9 - 50.3 % [facility] Plt 172 150 - 400 K/cumm [facility] MPV 10.9 9.1 - 12.3 fL [facility] RBC 3.70(L) 4.30 - 5.80 M/cumm [facility] MCV 93.8 81.3 - 96.4 fL [facility] MCH 31.1 27.1 - 33.3 pg [facility] MCHC 33.1 32.3 - 35.7 g/dL [facility] RDW CV 14.9 11.1 - 14.9 % [facility] RDW SD 51.1(H) 35.7 - 48.1 fL [facility] NRBC abs 0.00 0.00 - 0.01 K/cumm [facility] Blood 09/11/2024 11:4 4 PM PRESS SECRETARY 09/12/2024 12:17 AM PRESS SECRETARY Dalila Torres MD LAB BLOOD ORDERABLES Fi nal Result Performing Organization Address City/[facility] de Phone Number [facility] [place] [address] * Magnesium (09/11/2024 11:44 PM PRESS SECRETARY) [facility] [address] Magnesium 2.1 1.4 - 2.5 mg/dL Blood 09/11/2024 11:4 4 PM PRESS SECRETARY 09/12/2024 12:17 AM PRESS SECRETARY Dalila Torres MD LAB BLOOD ORDERABLES Fi nal Result Performing Organization Address [facility] de Phone Number [facility] Department [place] [address] * (ABNORMAL) Basic metabolic panel (09/11/2024 11:44 PM PRESS SECRETARY) [facility] [address] Sodium 142 135 - 145 mmol/L Potassium, pl 3.5 3.3 - 4.9 mmol/L [facility] Chloride 104 97 - 110 mmol/L [facility] CO2 27 22 - 32 mmol/L [facility] Anion gap 11 2 - 15 mmol/L [facility] BUN 30(H) 6 - 25 mg/dL [facility] Creatinine 1.30 0.80 - 1.30 mg/dL [facility] Glucose 74 70 - 199 mg/dL [facility] Comment: Interpretive Data Fasting glucose [...] 2022. Calcium 8.8 8.5 - 10.3 mg/dL [facility] Blood 09/11/2024 11:4 4 PM PRESS SECRETARY 09/12/2024 12:17 AM PRESS SECRETARY us Dalila Torres MD LAB BLOOD ORDERABLES Fi nal Result Performing Organization Address City/[facility]/ZIP Co de Phone Number [facility] Department [place] [address] * POCT glucose (09/11/2024 8:14 PM PRESS SECRETARY) Glucose, POC 142 70 - 199 mg/dL Blood 09/11/2024 8:14 PM PRESS SECRETARY 09/11/2024 8:14 PM PRESS SECRETARY us Dalila Torres MD LAB POCT ORDERABLES - D EVICE Final Result Performing Organization Address [facility] Co de Phone Number [facility] Department [place] [address] * POCT glucose (09/11/2024 5:23 PM PRESS SECRETARY) Glucose, POC 91 70 - 199 mg/dL Blood 09/11/2024 5:23 PM PRESS SECRETARY 09/11/2024 5:23 [address]ESS SECRETARY us [address] Tai MD LAB POCT ORDERABLES - DEVICE Final Result Performing Organization Address City/[facility] Co de Phone Number [facility] Department [place] [address] * Troponin I high-sensitivity 4-hour (09/11/2024 3:10 PM PRESS SECRETARY) Trop I hs 13 <=35 ng/L Comment: Interpretive Data For further RUSTnI resources including the diagnostic algorithm and an aid in interpretation, copy and paste this link: https://bjhlab.testcatalog.org/show/hsTrop-1 Current Interpretive Data last revised 2020. Trop I hs delta -1 ng/L [facility] Trop I hs interp Insignificant [facility] Blood 09/11/2024 3:10 PM PRESS SECRETARY 09/11/2024 3:22 PM PRESS SECRETARY us Ricki Ramirez MD LAB BLOOD ORDERABLES Final Result [facility] Department [place] [address] * POCUS Cardiac (09/11/2024 1:58 PM PRESS SECRETARY) Anatomical Region Laterality Modality Other 09/11/2024 1:28 PM PRESS SECRETARY Narrative 09/11/2024 3:02 PM PRESS SECRETARY Performed by: Jose Martin Guevara Cardiac: ?Exam [...] Troponin I high-sensitivity 2-hour (09/11/2024 1:30 PM PRESS SECRETARY) Trop I hs 14 <=35 ng/L Comment: Interpretive Data For further hscTnI resources including the diagnostic algorithm and an aid in interpretation, copy and paste this link: https://bjhlab.testcatalog.org/show/hsTrop-1 Current Interpretive Data last revised 2020. Trop I hs delta 0 ng/L [facility] Trop I hs interp Insignificant [facility] Blood 09/11/2024 1:30 PM PRESS SECRETARY 09/11/2024 2:03 PM PRESS SECRETARY us Ricki Ramirez MD LAB BLOOD ORDERABLES Final Result [facility] Department [place] [address] * (ABNORMAL) Pro B-type natriuretic peptide (09/11/2024 1:30 PM PRESS SECRETARY) NT-proBNP 1,193(H) <=450 pg/mL Comment: Interpretive Comments: [...] Revised Date: 2018. Blood 09/11/2024 1:30 PM PRESS SECRETARY 09/11/2024 2:[address] De Leon MD LAB BLOOD ORDERABLES Final Result [facility] Department [place] [address] * XR Chest Pa Lateral 2 Views (09/11/2024 11:13 AM PRESS SECRETARY) Anatomical Region Laterality Modality Body, Chest N/A Computed Radiogr aphy 09/11/2024 11:4 4 AM PRESS SECRETARY Impressions 09/11/2024 11:44 AM PRESS SECRETARY Comparison to 12/21/2023. 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 Heart and mediastinum are unchanged. There is no pneumothorax or pleural effusion. Small lung volumes with scarring in the left midlung that is similar to the prior CT. No new focal pulmonary opacity. Electronically signed by: Eric Balbuena M.D. Narrative 09/11/2024 11:44 AM PRESS SECRETARY EXAMINATION: 2 view chest radiograph Procedure Note [...] (baseline, 2hr, 4hr, 6hr) (09/11/2024 11:03 AM PRESS SECRETARY) Trop I hs 14 <=35 ng/L Comment: Interpretive Data For further hscTnI resources including the diagnostic algorithm and an aid in interpretation, copy and paste this link: https://bjhlab.testcatalog.org/show/hsTrop-1 Current Interpretive Data last revised 2020. Blood 09/11/2024 11:0 3 AM PRESS SECRETARY 09/11/2024 11:20 AM PRESS SECRETARY us Joseph Lucas MD LAB BLOOD ORDERABLES Shanna orozco Result [facility] Department [place] [address] * (ABNORMAL) eGFR (09/11/2024 11:03 AM PRESS SECRETARY) eGFR 49(L) >=60 mL/min/1. 73 m2 Comment: [...] reviewed 2021. Blood 09/11/2024 11:0 3 AM PRESS SECRETARY 09/11/2024 11:20 AM PRESS SECRETARY us Joseph Lucas MD LAB BLOOD ORDERABLES Shanna pam Result [facility] Department [place] [address] * Differential, auto (09/11/2024 11:03 AM PRESS SECRETARY) Neutrophil abs 4.9 1.5 - 6.5 K/cumm Imm gran abs 0.0 0.0 - 0.1 K/cumm [facility] Lymphocyte abs 1.4 0.8 - 3.3 K/cumm [facility] Monocyte abs 0.7 0.2 - 0.8 K/cumm [facility] Eosinophil abs 0.1 0.0 - 0.5 K/cumm [facility] Basophil abs 0.0 0.0 - 0.1 K/cumm [facility] Neutrophil pct 67.9 % [facility] Comment: Interpretive Data Percent cell count reference ranges are not reported, since discordance with absolute values may lead to misinterpretation of CBC data. Current Interpretive Data was last revised on 2017. Imm gran pct 0.4 % [facility] Comment: Interpretive Data Percent cell count reference ranges are not reported, since discordance with absolute values may lead to misinterpretation of CBC data. Current Interpretive Data was last revised on 2017. Lymphocyte pct 19.8 % [facility] Comment: Interpretive Data Percent cell count reference ranges are not reported, since discordance with absolute values may lead to misinterpretation of CBC data. Current Interpretive Data was last revised on 2017. Monocyte pct 9.6 % [facility] Comment: Interpretive Data Percent cell count reference ranges are not reported, since discordance with absolute values may lead to misinterpretation of CBC data. Current Interpretive Data was last revised on 2017. Eosinophil pct 1.9 % [facility] Comment: Interpretive Data Percent cell count reference ranges are not reported, since discordance with absolute values may lead to misinterpretation of CBC data. Current Interpretive Data was last revised on 2017. Basophil pct 0.4 % [facility] Comment: Interpretive Data Percent cell count reference ranges are not reported, since discordance with absolute values may lead to misinterpretation of CBC data. Current Interpretive Data was last revised on 2017. Blood 09/11/2024 11:0 3 AM PRESS SECRETARY 09/11/2024 11:20 AM PRESS SECRETARY Joseph Lucas MD LAB BLOOD ORDERABLES Shanna orozco Result [facility] Department [place] [address] * (ABNORMAL) CBC with auto differential (09/11/2024 11:03 AM PRESS SECRETARY) WBC 7.3 3.8 - 9.9 K/cumm Hgb 11.0(L) 13.0 - 17.5 g/dL [facility] Hct 33.2(L) 38.9 - 50.3 % [facility] Plt 175 150 - 400 K/cumm [facility] MPV 10.6 9.1 - 12.3 fL [facility] RBC 3.51(L) 4.30 - 5.80 M/cumm [facility] MCV 94.6 81.3 - 96.4 fL [facility] MCH 31.3 27.1 - 33.3 pg [facility] MCHC 33.1 32.3 - 35.7 g/dL [facility] RDW CV 14.9 11.1 - 14.9 % [facility] RDW SD 51.4(H) 35.7 - 48.1 fL [facility] NRBC abs 0.00 0.00 - 0.01 K/cumm [facility] Blood (Blood, Venous) 09/11/2024 11:03 AM PRESS SECRETARY 09/11/2024 11:20 AM PRESS SECRETARY us Joseph Lucas MD LAB BLOOD ORDERABLES Shanna orozco Result [facility] Department [place] [address] * (ABNORMAL) Comprehensive metabolic panel (09/11/2024 11:03 AM PRESS SECRETARY) Sodium 142 135 - 145 mmol/L Potassium, pl 3.6 3.3 - 4.9 mmol/L [facility] Chloride 102 97 - 110 mmol/L [facility] CO2 28 22 - 32 mmol/L [facility] Anion gap 12 2 - 15 mmol/L [facility] BUN 33(H) 6 - 25 mg/dL [facility] Creatinine 1.40(H) 0.80 - 1.30 mg/dL [facility] Glucose 114 70 - 199 mg/dL [facility] Comment: Interpretive Data Fasting glucose [...] 2022. Calcium 8.9 8.5 - 10.3 mg/dL [facility] Bilirubin, total 0.4 0.1 - 1.2 mg/dL [facility] Protein, pl 6.9 6.5 - 8.5 g/dL [facility] Albumin 3.9 3.5 - 5.0 g/dL [facility] Alk phos 43 40 - 130 Units/L [facility] ALT 13 7 - 55 Units/L [facility] AST 24 10 - 50 Units/L [facility] Blood 09/11/2024 11:0 3 AM PRESS SECRETARY 09/11/2024 11:20 AM PRESS SECRETARY Joseph Lucas MD LAB BLOOD ORDERABLES Shanna l Result Performing Organization Address [facility] Co de Phone Number [facility] Department [place] [address] * ECG 12-LEAD (09/11/2024 10:52 AM PRESS SECRETARY) Narrative [facility] - 09/11/2024 10:52 AM PRESS SECRETARY Hermilo Linares MD ? 09/11/2024 10:55 AM [...] in the ED Hermilo Linares MD 09/11/24 3730 us Joseph Lucas MD ECG ORDERABLES Final Res ult Performing Organization Address [facility] Co de Phone Number [facility] * POCT glucose (09/11/2024 10:48 AM PRESS SECRETARY) Glucose, POC 112 70 - 199 mg/dL Blood 09/11/2024 10:4 8 AM PRESS SECRETARY 09/11/2024 10:48 AM PRESS SECRETARY us Notinfile Unknown LAB POCT ORDERABLES - DEVICE F inal Result [facility] Department [place] [address] * (ABNORMAL) eGFR (09/10/2024 12:26 PM PRESS SECRETARY) eGFR 54(L) >=60 mL/min/1. 73 m2 Comment: [...] reviewed 2021. Blood 09/10/2024 12:2 6 PM PRESS SECRETARY 09/10/2024 1:37 PM PRESS SECRETARY us Rehan Sheth MD LAB BLOOD ORDERABLES F inal Result [facility] Department [place] [address] * (ABNORMAL) Pro B-type natriuretic peptide (09/10/2024 12:26 PM PRESS SECRETARY) NT-proBNP 2,273(H) <=450 pg/mL Comment: Interpretive Comments: [...] Date: 2018. Blood 09/10/2024 12:2 6 PM PRESS SECRETARY 09/10/2024 1:32 PM PRESS SECRETARY us Rehan Sheth MD LAB BLOOD ORDERABLES F inal Result [facility] Department [place] [address] * (ABNORMAL) Basic metabolic panel (09/10/2024 12:26 PM PRESS SECRETARY) Sodium 142 135 - 145 mmol/L Potassium, pl 3.9 3.3 - 4.9 mmol/L [facility] Chloride 104 97 - 110 mmol/L [facility] CO2 28 22 - 32 mmol/L [facility] Anion gap 10 2 - 15 mmol/L [facility] BUN 31(H) 6 - 25 mg/dL [facility] Creatinine 1.29 0.80 - 1.30 mg/dL [facility] Glucose 126 70 - 199 mg/dL [facility] Comment: Interpretive Data Fasting glucose [...] 2022. Calcium 9.2 8.5 - 10.3 mg/dL [facility] Blood 09/10/2024 12:2 6 PM PRESS SECRETARY 09/10/2024 1:32 PM PRESS SECRETARY Rehan Sheth MD LAB BLOOD ORDERABLES F inal Result [facility] Department [place] [address] * ECG 12 lead (09/10/2024 11:33 AM PRESS SECRETARY) Rehan Sheth MD ECG ORDERABLES Edited Result - Final * XR Scoliosis Ap and Lateral (08/26/2024 11:42 AM PRESS SECRETARY) Anatomical Region Laterality Modality Spine N/A Computed Radiogr aphy 08/26/2024 12:3 0 PM PRESS SECRETARY Impressions 08/26/2024 12:30 PM PRESS SECRETARY 1. ??Mild thoracolumbar curvature with leftward coronal and anterior sagittal imbalance Electronically signed by: Mehran Sotomayor MD Narrative 08/26/2024 12:30 PM PRESS SECRETARY EXAMINATION: XR SCOLIOSIS AP AND LATERAL HISTORY: [...] (ABNORMAL) Basic metabolic panel (07/30/2024 12:37 PM PRESS SECRETARY) Glucose 143(H) 65 - 99 mg/dL [facility] Comment: ? Fasting reference interval [...] Calcium 8.9 8.6 - 10.3 mg/dL [facility] Blood 07/30/2024 12:3 7 PM PRESS SECRETARY 07/30/2024 12:38 PM PRESS SECRETARY Rehan Sheth MD LAB BLOOD ORDERABLES F inal Result [facility] [address] [place] [address] * (ABNORMAL) Basic metabolic panel (07/16/2024 11:34 AM PRESS SECRETARY) Glucose 115 65 - 139 mg/dL [facility] Comment: ? Non-fasting reference interval BUN 29(H) 7 - 25 mg/dL [facility] Creatinine 1.23(H) 0.70 - 1.22 mg/dL [facility] eGFR 58(L) > OR = 60 mL/min/1.7 3m2 [facility] BUN/creat ratio 24(H) 6 - 22 (calc) [facility] Sodium 138 135 - 146 mmol/L [facility] Potassium, pl 4.4 3.5 - 5.3 mmol/L [facility] Chloride 101 98 - 110 mmol/L [facility] CO2 27 20 - 32 mmol/L [facility] Calcium 8.7 8.6 - 10.3 mg/dL [facility] Blood 07/16/2024 11:3 4 AM PRESS SECRETARY 07/16/2024 11:34 AM PRESS SECRETARY Narrative [facility] - 07/16/2024 10:30 PM PRESS SECRETARY INSURANCE VERIFIED FASTING:NO FASTING: NO Rehan Sheth MD LAB BLOOD ORDERABLES F inal Result [facility] [address] [place] [address] * (ABNORMAL) Basic metabolic panel (06/24/2024 10:29 AM PRESS SECRETARY) Glucose 163(H) 65 - 99 mg/dL [facility] Blood 06/24/2024 10:2 9 AM PRESS SECRETARY 06/24/2024 10:30 AM PRESS SECRETARY Rehan Sheth MD LAB BLOOD ORDERABLES F inal Result Performing Organization Address City/[facility]/ZIP Co de Phone Number [facility] [address] [place] [address] * (ABNORMAL) Hemoglobin A1c (06/07/2024 8:38 AM CDT) Pathologist [facility] Hgb A1C 6.1(H) 4.0 - 5.6 % Estimated Average Glucose 128 mg/dL [facility] Comment: The ADA recommends reporting an estimated Average Glucose (eAG) with all Hemoglobin A1c results using the equation derived from a study of 507 normal and diabetic adults. ??Minority populations were underrepresented and children were not included. ?? (Diabetes Care 31:1083-7899, 2008). ??The eAG is not equivalent to a fasting glucose. Blood 06/07/2024 8:38 AM CDT 06/07/2024 9:07 AM CDT Joe Hood MD LAB BLOOD ORDER MAITE Final Result [facility] [address] [facility] Department [place] [address] * Lipid panel (06/07/2024 8:38 AM CDT) Pathologist [facility] Cholesterol 116 30 - 199 mg/dL Comment: [...] LAB BLOOD ORDER MAITE Final Result [facility] [address] [facility] Department [place] [address] * DIABETES FOOT EXAM (11/05/2020) [...] Advance Directives For more information, please contact: [phone] Documents on File Type Date Recorded Patient Aircraft Structural Fitter Expl anation ADVANCE DIRECTIVE 12/27/2023 10:41 PM Jorge Pryor P OWER OF DIRECTOR OF [facility]-MEDICAL ADVANCE DIRECTIVE 12/26/2023 10:38 AM Yazmin Medina POWER OF DIRECTOR OF [facility]-FINANCIAL * Full Code (Latest Code Status on [...] Communication Jorge Pryor Spouse Health Care Agent [email or web address] Daughter First Alternate Health Care Agent [email or web address] Steel Detailer Relationship Specialty Start Date End Date Barry Ralph MD PCP - General Family Practice 05/22/24 Rehan Sheth MD [address] [facility] [address] [place] [address] Consulting Physician Cardiology 09/09/24 Sangita Moore, RN [address] [facility] [address] [place] [address] SHOP Outpatient Legal Coordinator 09/15/24
--- OUTSIDE RECORDS SUMMARY | 2024-09-18 04:07 | XMS_ITS ---
Care Plan Created on: September 18, 2024 Ashkan Pryor : 1940 Sex: Male Author Organization [facility] Address [address] [place] [address] Care Team Providers Care Assistant Professor Of Economics Name Role Phone Barry Ralph MD Primary Care Provider [phone] Rehan Sheth MD Unavailable Sangita Moore RN Unavailable [phone] Active Problems Problem Noted Date Diagnosed Date Chest pain, unspecified type 09/11/2024 Coronary artery disease invo lving [place] coronary artery of [place] heart with angina pectoris 09/10/2024 Internal carotid artery stenosis, right 06/12/20 Chronic heart failure with p reserved ejection fraction ([facility]) 06/12/2024 Stage 2 chronic kidney disease 06/12/2024 Thrombocytopenia 06/12/2024 Bilateral leg weakness 06/06/2024 NSTEMI (non-ST elevated myocardial infarction) ( [facility]) 05/20/2024 Assessment & Plan (05/21/2024 11:10 AM CDT): Repeat [place] on 05/20/2024 showed: 60-70% lesion to mid LAD (with a positive IFR of 0.78) and a 90% lesion lesion to ostial circ; RCA with a known DIRECT CASTING OPERATOR (angiography not performed). -s/p Successful PCI [...] Plan (05/20/2024 11:34 AM CDT): Went to [facility] 05/17 for SOB, new 2L O2 requirement - OSH workup: Trp 1.95>5.1>10, proBNP 6800, CXR w/ mild interstitial edema - OSH [place] 05/19 w/ L main widely patent, LAD proximal body 80% stenosis, LAD stent w/ moderate ISR, L cx w/ 95% stenosis in proximal body, OM branches w/ mild disease, RCA is DIRECT CASTING OPERATOR in mid body w/ L to R collaterals - cath films uploaded - OSH TTE reportedly w/ EF 50%, AV prosthesis w/o abnormal gradients - trop here 7,9328, repeat pending - currently denies chest pain or pressure, sob improving - PCI today - continue heparin drip - continue asa, coreg, atorvastatin 80mg - telemetry Assessment & Plan (05/20/2024 1:02 AM CDT): Went to [facility] 05/17 for SOB, new 2L O2 requirement - OSH workup: Trp 1.95>5.1>10, proBNP 6800, CXR w/ mild interstitial edema - OSH [facility] 05/19 w/ L main widely patent, LAD proximal body 80% stenosis, LAD stent w/ moderate ISR, L cx w/ 95% stenosis in proximal body, OM branches w/ mild disease, RCA is DIRECT CASTING OPERATOR in mid body w/ L to [...] Assessment & Plan (05/21/2024 10:58 AM CDT): [facility] 05/17 for SOB, on 3.5L now - OSH [place]: CXR w/ pulmonary edema, TTE w/ stable EF and AV prosthesis w/o abnormal gradients - mild YUSEF without crackles on exam at time of admission - NT-proBNP 8,388 - transition to PO lasix 40mg daily - Off O2, remains stable. - plan to d/c home later today. Assessment & Plan (05/20/2024 11:50 AM CDT): [facility] 05/17 for SOB, on 3.5L now - [...] Assessment & Plan (05/20/2024 1:00 AM CDT): [facility] 05/17 for SOB, on 2L now - [...] salt diet Acute on chronic heart failure ([facility]) 024 Assessment & Plan (05/21/2024 10:56 AM [...] benefi Assessment & Plan (07/04/2024 1:02 PM INSURANCE AGENCY SALES MANAGER): He may just be symptomatic from his [...] Assessment & Plan (03/17/2024 1:48 PM CDT): Cyber Intelligence Analyst stenosis and 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 Still [...] stenosis. Assessment & Plan (07/04/2024 1:03 PM INSURANCE AGENCY SALES MANAGER): Failed LMBB. Assessment & Plan (04/23/2024 5:41 [...] Encounter for Medicare annual wellness exam 05/20 long term care pharmacist (current) use of anticoagulants [Z79.0 1] 03/27/2018 Atrial fibrillation ([facility]) [I48.91] 8 Overview (09/04/2018): Dr. Sheth helps [...] quiescent Assessment & Plan (09/04/2018 10:33 AM INSURANCE AGENCY SALES MANAGER): COPD is unchanged. COPD information handout given. [...] to PT - wants to go to [facility]. Trial robaxin. Flexeril on med [...] no Assessment & Plan (10/01/2019 10:35 AM INSURANCE AGENCY SALES MANAGER): S2 makes a wonderfully crisp snap w/o any regurge Gastroesophageal reflux disease 09/17/2014 Tussive syncope 08/25/2014 Syncope and collapse 08/21/2014 Syncope 08/21/2014 Type 2 diabetes mellitus 07/10/2014 Overview (05/13/2021): Was on levemir but stopped 2015 then on trulicity so on metformin ALONE We had better control w/ Jardiance -since he has been w/ Dr Stockton [id number] has been on Actose and metformin- Off [...] heart- Assessment & Plan (10/01/2019 10:30 AM INSURANCE AGENCY SALES MANAGER): His A1C has crept to 7.5% Admits [...] covered Assessment & Plan (09/04/2018 10:42 AM INSURANCE AGENCY SALES MANAGER): Diabetes is worsening. Continue current treatment regimen. Reminded to bring in blood sugar diary at next visit. Dietary recommendations for ADA diet. Regular aerobic exercise. Discussed foot care. Reminded to get yearly retinal exam. Diabetes will be reassessed in 3 months. Given his financial concerns my advice is to use food as TargAnox medicine Obesity with body mass index 30 or greater 07/09 Generalized anxiety disorder 07/09/2014 Assessment & Plan (10/01/2019 10:32 AM INSURANCE AGENCY SALES MANAGER): He gets along nicely w/ a low [...] Plan Chronic Care Management Improving( 10:49 AM INSURANCE AGENCY SALES MANAGER) Nenita Sanchez, RN Note: Problem: Chronic Pain [...]
--- OUTSIDE RECORDS SUMMARY | 2024-09-18 04:07 | XMS_ITS | Encounter Summary ---
Author Organization [facility] Healthcare Address [address] [place] [address] Care Team Providers Care Route Clerk Name Role Phone Barry Ralph MD Primary Care Provider [phone] Barry Ralph MD Primary Care Provider [phone] Rosalee Crowder MANUAL ARTS TEACHER Unavailable [phone] Rehan Sheth MD Unavailable Sangita Moore RN Unavailable [phone] Encounter Details Date Type Department Care Team (Late st Contact Info) Description 02/26/2024 Telephone [facility] [address] [facility] [address] [place] [address] Aleksander Shankar MD [address] [place] [address] Social History Tobacco Use Types Packs/Day Years Used Date Smoking Tobacco: Never Smokeless Tobacco: Never [facility] Utilities Answer Date Recorded In [...] often do you attend chur ch or methodist services? More than 4 times per year 01/01/2024 Do you belong to any clubs o r organizations such as mandaen groups, unions, fraternal or athletic groups, or [...] staff should administer the PHQ-9) 0 05/13/2021 [facility] of Occupat ional Health - Occupational Stress [...] place to sleep or slept in a senior care (including now)? No 01/01/2024 Personal Safety Answer Date Recorded Have you ever been in or are you currently in a harmful physical or emotional relationship or is someone making you feel afraid or unsafe? Denies 12/19/2023 Sex and Gender Information Value Date Recorded Sex Assigned at Not on file Legal Sex Male 8:23 PM MINING HELPER Gender Identity Not on file Sexual Orientation Not on file documented as of this encounter Plan of Treatment Not on file documented as of this encounter Goals Goal Patient Goal Type Associated Problems Recent Progress Patient-Stated? Author CCM Chronic Pain Care Plan Chronic Care Management Improving( 10:49 AM MINING HELPER) No Nenita Santiago, RN Note: Problem: Chronic [...] documented as of this encounter Care Teams Route Clerk Relationship Specialty Start Date End Date Barry Ralph MD PCP - General Family Practice 10/20/22 05/20/24 Barry Ralph MD PCP - General Family Practice 05/22/24 Rosalee Crowder, [facility] [address] [facility] ([facility]) Mailstop [phone] [place] [address] SHOP Outpatient Md Urologist 05/22/24 06/19/24 Rehan Sheth MD [address] [facility] [address] [place] [address] Consulting Physician Cardiology 09/09/24 Sangita Moore, RN [address] [facility] [address] [place] [address] SHOP Outpatient Md Urologist 09/15/24 documented as of this encounter
--- OUTSIDE RECORDS SUMMARY | 2024-09-18 04:07 | XMS_ITS | Encounter Summary ---
Author Organization [facility] Healthcare Address [address] [place] [address] Care Team Providers Care Helicopter Dispatcher Name Role Phone Barry Ralph MD Primary Care Provider [phone] Rehan Sheth MD Unavailable [phone] Sangita Moore RN Unavailable [phone] Reason for Visit * Reason Comments Successfully Completed Encounter Details Date Type Department Care Team (Late st Contact Info) Description 09/17/2024 [facility] Subsequent Outreach [facility] OP CASE MANAGEMENT [address] [place] [address] Sangita Moore, RN [address] [facility] [address] [place] [address] Social History Tobacco Use Types Packs/Day Years Used Date Smoking Tobacco: Never Smokeless Tobacco: Never [facility] Utilities Answer Date Recorded In the past 12 months has [employer] electric, gas, oil, or water company threatened [...] How often do you attend chur or jew services? More than 4 times per year 09/15/2024 Do you belong to any clubs o r organizations such as pentecostalism groups, unions, fraternal or athletic groups, or [...] Date Recorded PHQ-2 Total Score 0 09/[facility]/20[facility] Questionnaire Answer Date [...] place to sleep or slept in a assisted (including now)? No 01/01/2024 Housing Stability Vital Sign Answer Deangelo e Recorded In the last 12 months, was t here a time when you were not able to pay the mortgage or rent on time? No 09/15/2024 In the past 12 months, how m any times have you moved where you were living? 1 09/15/2024 At any time in the past 12 m [facility], were you homeless or living in a assisted (including now)? No 09/15/2024 Personal Safety Answer Date Recorded Have you ever been in or are you currently in a harmful physical or emotional relationship or is someone making you feel afraid or unsafe? Denies 09/11/2024 Sex and Gender Information Value Date Recorded Sex Assigned at Not on file Legal Sex Male 8:23 PM WOMEN'S APPAREL SALESPERSON Gender Identity Not on file Sexual Orientation [...] he is due for labs today at [facility] and has follow up appointment with Dr. Sheth on 09/24 here at the [facility]. OCM to continue to follow and reminded patient/family to call OCM for questions or concerns. N'S APPAREL SALESPERSON documented in this encounter Plan of Treatment Not on file documented as of this encounter Goals Goal Patient Goal Type Associated Problems Recent Progress Patient-Stated? Author CCM Chronic Pain Care Plan Chronic Care Management Improving( 10:49 AM WOMEN'S APPAREL SALESPERSON) No Nenita Santiago, RN Note: Problem: Chronic [...] documented as of this encounter Care Teams Helicopter Dispatcher Relationship Specialty Start Date End Date Barry Ralph MD PCP - General Family Practice 05/22/24 Rehan Sheth MD [address] [facility] [address] [place] [address] Consulting Physician Cardiology 09/09/24 Sangita Moore, RN [address] [facility] [address] [place] [address] SHOP Outpatient Trademark Paralegal 09/15/24 documented as of this encounter
--- OUTSIDE RECORDS SUMMARY | 2024-09-18 04:07 | XMS_ITS | Clinical Summary ---
Author Organization [facility] Address [address] [place] [address] Care Team Providers Care Adult Education Instructor Name Role Phone Barry Ralph MD Primary Care Provider [phone] Rehan Sheth MD Unavailable Sangita Moore RN Unavailable [phone] Allergies No known active allergies Medications albuterol HFA (PROVENTIL HFA,VENTOLIN HFA,PROAIR HFA) 90 mcg/actuation inhaler Inhale 2 puffs as needed for shortness of breath 015 Active True Metrix Glucose Meter kit USE DIRECTED 1 kit 021 Active lancets (OneTouch Delica Plus Lancet) 30 gauge miscIndications:Ty pe 2 diabetes mellitus with hyperosmolarity without coma, without long-term current use of insulin ([facility]) ([facility]) Use to check blood sugar 3x daily 300 each 2 Active blood glucose diagnostic (True Metrix Glucose Test Strip) stripIndications:T ype 2 diabetes mellitus with hyperosmolarity without coma, without long-term current use of insulin ([facility]) ([facility]) TEST BLOOD SUGAR EVERY DAY 100 strip [...] type 09/11/2024 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 09/10/2024 Internal carotid artery stenosis, right 06/12/20 Chronic heart failure with p reserved ejection fraction ([facility]/HCC) 06/12/2024 Stage 2 chronic kidney disease 06/12/2024 Thrombocytopenia 06/12/2024 Bilateral leg weakness 06/06/2024 NSTEMI (non-ST elevated myocardial infarction) ( [facility]/HCC) 05/20/2024 Assessment & Plan (05/21/2024 11:10 AM CDT): Repeat C on 05/20/2024 showed: 60-70% lesion to mid LAD (with a positive IFR of 0.78) and a 90% lesion lesion to ostial circ; RCA with a known [employer] (angiography not performed). -s/p Successful PCI to [...] Plan (05/20/2024 11:34 AM CDT): Went to [facility] 05/17 for SOB, new 2L O2 requirement - OSH workup: Trp 1.95>5.1>10, proBNP 6800, CXR w/ mild interstitial edema - [facility] 05/19 w/ L main widely patent, LAD proximal body 80% stenosis, LAD stent w/ moderate ISR, L cx w/ 95% stenosis in proximal body, OM branches w/ mild disease, RCA is [employer] in mid body w/ L to R collaterals - cath films uploaded - OSH TTE reportedly w/ EF 50%, AV prosthesis w/o abnormal gradients - trop here 7,6561, repeat pending - currently denies chest pain or pressure, sob improving - PCI today - continue heparin drip - continue asa, coreg, atorvastatin 80mg - telemetry Assessment & Plan (05/20/2024 1:02 AM CDT): Went to [facility] 05/17 for SOB, new 2L O2 requirement - OSH workup: Trp 1.95>5.1>10, proBNP 6800, CXR w/ mild interstitial edema - [facility] 05/19 w/ L main widely patent, LAD proximal body 80% stenosis, LAD stent w/ moderate ISR, L cx w/ 95% stenosis in proximal body, OM branches w/ mild disease, RCA is [employer] in mid body w/ L to R [...] Assessment & Plan (05/21/2024 10:58 AM CDT): [facility] 05/17 for SOB, on 3.5L now [...] Assessment & Plan (05/20/2024 11:50 AM CDT): [facility] 05/17 for SOB, on 3.5L now [...] Assessment & Plan (05/20/2024 1:00 AM CDT): [facility] 05/17 for SOB, on 2L now [...] benefi Assessment & Plan (07/04/2024 1:02 PM BILLING ADMINISTRATOR): He may just be symptomatic from his [...] Assessment & Plan (03/17/2024 1:48 PM CDT): Preflight Mechanic stenosis and 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 Still [...] T10-T11. Aldolase 41.6. ESR 55, CRP 187. AMRA, SEYMOUR ab and ANCA negative. - Neurosurgery, [...] stenosis. Assessment & Plan (07/04/2024 1:03 PM BILLING ADMINISTRATOR): Failed LMBB. Assessment & Plan (04/23/2024 5:41 [...] Encounter for Medicare annual wellness exam 05/20 halfway (current) use of anticoagulants [Z79.0 1] 03/27/2018 Atrial fibrillation ([facility]) [I48.91] [...] quiescent Assessment & Plan (09/04/2018 10:33 AM BILLING ADMINISTRATOR): COPD is unchanged. COPD information handout given. [...] to PT - wants to go to [facility]. Trial robaxin. Flexeril on med list [...] no Assessment & Plan (10/01/2019 10:35 AM BILLING ADMINISTRATOR): S2 makes a wonderfully crisp snap w/o any regurge Gastroesophageal reflux disease 09/17/2014 Tussive syncope 08/25/2014 Syncope and collapse 08/21/2014 Syncope 08/21/2014 Type 2 diabetes mellitus 07/10/2014 Overview (05/13/2021): Was on levemir but stopped 2015 then on trulicity so on metformin ALONE We had better control w/ Jardiance -since he has been w/ Dr Stockton [phone] has been on Actose and metformin- Off [...] heart- Assessment & Plan (10/01/2019 10:30 AM BILLING ADMINISTRATOR): His A1C has crept to 7.5% Admits [...] covered Assessment & Plan (09/04/2018 10:42 AM BILLING ADMINISTRATOR): Diabetes is worsening. Continue current treatment regimen. [...] 07/09/2014 Assessment & Plan (10/01/2019 10:32 AM BILLING ADMINISTRATOR): He gets along nicely w/ a low [...] Care Team Description 09/17/2024 SHOP/CHAP Subsequent Outreach [facility] OP CASE MANAGEMENT [address] [place] [address] Sangita Moore, RN 09/15/2024 SHOP/CHAP Initial Outreach [facility] OP CASE MANAGEMENT [address] [place] [address] Sangita Moore RN 09/15/2024 Telephone [facility] Cardiology [address] [facility] Advanced [facility] 8th [place] [address] [place] [phone] Rehan Sheth MD f/u orders 09/15/2024 SHOP/CHAP Initial Eligibility Review [facility] OP CASE MANAGEMENT [address] [place] [address] Sangita Moore, RN 09/11/2024 12:49 PM BILLING ADMINISTRATOR - 09/14/2024 12:22 PM BILLING ADMINISTRATOR Hospital Encounter [facility] [address] [facility] [place] [address] Joseph Lucas MD [place], MD Melissa King Natalie Marie, MD Chest pain, unspecified type (Primary Dx) Discharge Disposition: Discharge to home or self care 09/11/2024 Documentation [facility] Cardiology [address] [place] [address] Advanced Medicine 8th [place] [address] [place] [address] Rehan Sheth MD 09/11/[address] [place] [address] Rehan Sheth MD Symptoms update 09/10/2024 12:25 PM BILLING ADMINISTRATOR Lab [facility] ([facility]) [address] [place], [place] [phone] Chronic heart failure with preserved ejection fraction (CMS/HCC) (HCC) 09/10/2024 11:15 AM BILLING ADMINISTRATOR Office Visit [address] [place] [address] Rehan Sheth MD Chronic heart failure with preserved ejection fraction (CMS/HCC) (HCC) (Primary Dx); Coronary artery disease involving t[place] river coronary artery of [place] heart with angina pectoris (HCC) 09/10/[address] Advanced [address] [place] [address] Rehan Sheth MD Cardiac Clearance request 09/10/[address] [place] [address] Rehan Sheth MD Chest symptoms 09/09/[address] [place] [address] Rehan Sheth MD Samples/and report of ER eval 09/01/2024 Telephone [facility] Neurosurgery [address] [facility] [address] [place] [address] Clayton Robertson DO 08/26/2024 12:30 PM BILLING ADMINISTRATOR Office Visit [facility] Neurosurgery [address] [facility] [address] [place] [address] Clayton Robertson DO 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) 08/26/2024 11:32 AM BILLING ADMINISTRATOR - 08/26/2024 11:59 PM BILLING ADMINISTRATOR Hospital Encounter [facility] [address] [facility] [address] [place] [address] Lumbar spondylosis; Chronic bilateral low back pain, unspecified whether sciatica present Discharge Disposition: Discharge to home or self care 08/06/2024 Orders Only [facility] Neurosurgery [facility] Office [facility] [address] [place] [address] Clayton Robertson DO Lumbar spondylosis (Primary Dx); Chronic bilateral low back pain, unspecified whether sciatica present 07/04/2024 10:37 AM BILLING ADMINISTRATOR - 07/04/2024 11:59 PM BILLING ADMINISTRATOR Hospital Encounter [facility] [address] [facility] [address] [place] [address] Aleksander Shankar MD 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); Sacroiliac joint pain; Lumbar spondylosis Discharge Disposition: Discharge to home or self care 06/26/2024 Orders Only [facility] Cardiology [address] [facility] 8th [place] [address] [place] [phone] Naila Cortez RN High risk medications (not anticoagulants) long-term use (Primary Dx) 06/19/2024 SHOP/CHAP Subsequent Outreach [facility] OP CASE MANAGEMENT [address] [place] [phone] Rosalee Crowder, EMPLOYMENT OFFICER from Last 3 Months Immunizations Name Administration [...] 03/19/2016 Surgical History Surgery Date Site/Laterality Comments TN LASER VAPORIZATION OF PROSTATE FOR URINE FLOW Laser Vaporization With Transurethral Resection Of Prostate - (Added by TW Conv) TN RPLCMT PROST AORTIC VALVE OPEN XCP HOMOGRF/STENT [...] Tobacco: Never Tobacco Cessation:Counseling Given: Not Answered [facility] Utilities Answer Date Recorded In the [...] often do you attend chur ch or jewish services? More than 4 times per year 09/15/2024 Do you belong to any clubs o r organizations such as confucianist groups, unions, fraternal or athletic groups, or [...] Date Recorded PHQ-2 Total Score 0 09/12/2024 [facility] - [...] place to sleep or slept in a retirement (including now)? No 01/01/2024 Housing Stability Vital Sign Answer Deangelo e Recorded In the last 12 months, was t here a time when you were not able to pay the mortgage or rent on time? No 09/15/2024 In the past 12 months, how m any times have you moved where you were living? 1 09/15/2024 At any time in the past 12 m [facility], were you homeless or living in a retirement (including now)? No 09/15/2024 Personal Safety Answer Date Recorded Have you ever been in or are you currently in a harmful physical or emotional relationship or is someone making you feel afraid or unsafe? Denies 09/11/2024 Sex and Gender Information Value Date Recorded Sex Assigned at Not on file Legal Sex Male 8:23 PM BILLING ADMINISTRATOR Gender Identity Not on file Sexual Orientation Not on file Obstetrics History Last Filed Vital Signs Vital Sign Reading Time Taken Comments Blood Pressure 133/57 09/14/2024 7:33 AM BILLING ADMINISTRATOR Pulse 64 09/14/2024 7:33 AM BILLING ADMINISTRATOR Temperature 36.8 ??C (98.2 ??F) 09/14/2024 7:33 AM CS T Respiratory Rate 18 09/14/2024 7:33 AM BILLING ADMINISTRATOR Oxygen Saturation 95% 09/14/2024 7:33 AM BILLING ADMINISTRATOR Inhaled Oxygen Concentration - - Weight 100.6 kg (221 lb 12.8 oz) 09/14/2024 4:49 AM BILLING ADMINISTRATOR Height 182.9 cm (6') 09/11/2024 4:35 PM BILLING ADMINISTRATOR Body Mass Index 30.08 09/11/2024 4:35 PM BILLING ADMINISTRATOR Plan of Treatment Health Maintenance Due Date [...] Plan Chronic Care Management Improving( 10:49 AM BILLING ADMINISTRATOR) No Nenita Santiago, RN Note: Problem: Chronic [...] and vomiting. Medical Devices Implanted Type Area Flow Floor Attendant Device Identifier Shelf Expiration Date Model / Serial / Lot Terum[employer]en Angio-Seal Vip Bondek-Plus 8fr .038in 70cm Hemostatic Latex Free [id number] - [id number] - [id number] Implanted:Qty : 1 on 05/20/2024 by Papo Rascon MD at [facility] Collagen Right: Common Femoral Artery Ter[employer] Branden 12/10/2024 [id number] / [id number] / [id number] Prosthetic Valve Prosthetic Valve Heart Description:Heart Valve Medtronic Card Vasc Surgery 4.[address] [facility] Rx Coronary Stent [id number] - [id number] Implanted:Qty : 1 on 05/20/2024 by Vitor Pedroza MD at [facility] Stent N/A: Circumflex Coronary Artery Medtronic Card Vasc Surgery 01/11/2027 [id number] / [id number] / [id number] Medtronic Card Vasc Surgery 4.[address] [facility] Rx Coronary Stent [id number] - [id number] - [id number] Implanted:Qty : 1 on 05/20/2024 by Vitor Pedroza MD at [facility] Stent Left: Anterior Descending Cornary Artery Medtronic Card Vasc Surgery 11/14/2026 [id number] / [id number] / [id number] Procedures Procedure Name Priority Date/Time Associated Diagnosis Comments EGFR STAT 09/14/2024 8:23 AM BILLING ADMINISTRATOR BASIC METABOLIC PANEL STAT 09/14/2024 8:23 AM BILLING ADMINISTRATOR EGFR Routine 09/13/2024 9:57 PM BILLING ADMINISTRATOR CBC WITHOUT DIFFERENTIAL Routine 09/13/2024 9:57 PM BILLING ADMINISTRATOR MAGNESIUM Routine 09/13/2024 9:57 PM BILLING ADMINISTRATOR BASIC METABOLIC PANEL Routine 09/13/2024 9:57 PM BILLING ADMINISTRATOR EGFR Routine 09/12/2024 8:13 PM BILLING ADMINISTRATOR CBC WITHOUT DIFFERENTIAL Routine 09/12/2024 8:13 PM BILLING ADMINISTRATOR MAGNESIUM Routine 09/12/2024 8:13 PM BILLING ADMINISTRATOR BASIC METABOLIC PANEL Routine 09/12/2024 8:13 PM BILLING ADMINISTRATOR SODIUM, URINE, RANDOM Routine 09/12/2024 12:36 PM BILLING ADMINISTRATOR POCT GLUCOSE DEVICE Routine 09/12/2024 7 :52 AM BILLING ADMINISTRATOR POCT GLUCOSE DEVICE Routine 09/12/2024 6 :21 AM BILLING ADMINISTRATOR POCT GLUCOSE DEVICE Routine 09/12/2024 2 :15 AM BILLING ADMINISTRATOR EGFR Routine 09/11/2024 11:44 PM BILLING ADMINISTRATOR CBC WITHOUT DIFFERENTIAL Routine 09/11/2024 11:44 PM BILLING ADMINISTRATOR MAGNESIUM Routine 09/11/2024 11:44 PM BILLING ADMINISTRATOR BASIC METABOLIC PANEL Routine 09/11/2024 11:44 PM BILLING ADMINISTRATOR POCT GLUCOSE DEVICE Routine 09/11/2024 8 :14 PM BILLING ADMINISTRATOR POCT GLUCOSE DEVICE Routine 09/11/2024 5 :23 PM BILLING ADMINISTRATOR TROPONIN I HIGH-SENSITIVITY 4-HOUR Timed 09/11/2024 3:10 PM BILLING ADMINISTRATOR POCUS CARDIAC 09/11/2024 1:58 PM BILLING ADMINISTRATOR PRO B-TYPE NATRIURETIC PEPTIDE STAT 09/11/2024 1:30 PM BILLING ADMINISTRATOR TROPONIN I HIGH-SENSITIVITY 2-HOUR Timed 09/11/2024 1:30 PM BILLING ADMINISTRATOR XR CHEST PA LATERAL 2 VIEWS ED 09/11/2024 11:13 AM BILLING ADMINISTRATOR EGFR STAT 09/11/2024 11:03 AM BILLING ADMINISTRATOR DIFFERENTIAL AUTO STAT 09/11/2024 11: 03 AM BILLING ADMINISTRATOR TROPONIN I HIGH-SENSITIVITY SERIES (BASELINE, 2HR, 4HR, 6HR) STAT 09/11/2024 11:03 AM BILLING ADMINISTRATOR COMPREHENSIVE METABOLIC PANEL STAT 09/11/2024 11:03 AM BILLING ADMINISTRATOR CBC WITH AUTO DIFFERENTIAL STAT 09/11/2024 11:03 AM BILLING ADMINISTRATOR ECG 12-LEAD STAT 09/11/2024 10:52 AM BILLING ADMINISTRATOR POCT GLUCOSE DEVICE Routine 09/11/2024 1 0:48 AM BILLING ADMINISTRATOR EGFR Routine 09/10/2024 12:26 PM BILLING ADMINISTRATOR Chronic heart failure with preserved ejection fraction (CMS/HCC) (HCC) PRO B-TYPE NATRIURETIC PEPTIDE Routine 09/10/2024 12:26 PM BILLING ADMINISTRATOR Chronic heart failure with preserved ejection fraction (CMS/HCC) (HCC) BASIC METABOLIC PANEL Routine 09/10/2024 12:26 PM BILLING ADMINISTRATOR Chronic heart failure with preserved ejection fraction (CMS/HCC) (HCC) ECG 12-LEAD Routine 09/10/2024 11:33 AM BILLING ADMINISTRATOR Chronic heart failure with preserved ejection fraction (CMS/HCC) (HCC) XR SCOLIOSIS AP LAT Schedule Routine, Read Routine (OP Routine) 08/26/2024 11:42 AM BILLING ADMINISTRATOR Lumbar spondylosis Chronic bilateral low back pain, unspecified whether sciatica present BASIC METABOLIC PANEL Routine 07/30/2024 12:37 PM BILLING ADMINISTRATOR High risk medications (not anticoagulants) long-term use BASIC METABOLIC PANEL Routine 07/16/2024 11:34 AM BILLING ADMINISTRATOR High risk medications (not anticoagulants) long-term use BASIC METABOLIC PANEL Routine 06/24/2024 10:29 AM BILLING ADMINISTRATOR Acute on chronic systolic heart failure (HCC) HEMOGLOBIN A1C Routine 06/07/2024 8:38 AM CDT LIPID PANEL Routine 06/07/2024 8:38 AM CDT DIABETES FOOT EXAM Routine 11/05/2020 DIABETES EYE EXAM Routine 05/05/2019 from Last 3 Months or Most Recently Relevant to Health Maintenance Results * eGFR (09/14/2024 8:23 AM BILLING ADMINISTRATOR) eGFR 63 >=60 mL/min/1. 73 m2 Comment: [...] last reviewed 2021. Blood 09/14/2024 8:23 AM BILLING ADMINISTRATOR 09/14/2024 8:45 AM BILLING ADMINISTRATOR us Dalila Torres MD LAB BLOOD ORDERABLES Fi nal Result [facility] Department [place] [address] * (ABNORMAL) Basic metabolic panel (09/14/2024 8:23 AM BILLING ADMINISTRATOR) Sodium 140 135 - 145 mmol/L Potassium, pl 4.0 3.3 - 4.9 mmol/L [facility] Chloride 104 97 - 110 mmol/L [facility] CO2 27 22 - 32 mmol/L [facility] Anion gap 9 2 - 15 mmol/L [facility] BUN 28(H) 6 - 25 mg/dL [facility] Creatinine 1.14 0.80 - 1.30 mg/dL [facility] Glucose 108 70 - 199 mg/dL [facility] Comment: Interpretive Data Fasting glucose >/= 126 [...] 2022. Calcium 8.8 8.5 - 10.3 mg/dL [facility] Blood 09/14/2024 8:23 AM BILLING ADMINISTRATOR 09/14/2024 8:45 AM BILLING ADMINISTRATOR us Dalila Torres MD LAB BLOOD ORDERABLES Fi nal Result [facility] Department [place] [address] * (ABNORMAL) eGFR (09/13/2024 9:57 PM BILLING ADMINISTRATOR) eGFR 49(L) >=60 mL/min/1. 73 m2 Comment: [...] last reviewed 2021. Blood 09/13/2024 9:57 PM BILLING ADMINISTRATOR 09/13/2024 10:27 PM BILLING ADMINISTRATOR us Dalila Torres MD LAB BLOOD ORDERABLES Fi nal Result [facility] One [facility] Department [place] [address] * (ABNORMAL) CBC without differential (09/13/2024 9:57 PM BILLING ADMINISTRATOR) WBC 6.4 3.8 - 9.9 K/cumm Hgb 11.1(L) 13.0 - 17.5 g/dL [facility] Hct 33.4(L) 38.9 - 50.3 % [facility] Plt 152 150 - 400 K/cumm [facility] MPV 11.2 9.1 - 12.3 fL [facility] RBC 3.53(L) 4.30 - 5.80 M/cumm [facility] MCV 94.6 81.3 - 96.4 fL [facility] MCH 31.4 27.1 - 33.3 pg [facility] MCHC 33.2 32.3 - 35.7 g/dL [facility] RDW CV 14.9 11.1 - 14.9 % [facility] RDW SD 52.3(H) 35.7 - 48.1 fL [facility] NRBC abs 0.00 0.00 - 0.01 K/cumm [facility] Blood 09/13/2024 9:57 PM BILLING ADMINISTRATOR 09/13/2024 10:27 PM BILLING ADMINISTRATOR us Dalila Torres MD LAB BLOOD ORDERABLES Fi nal Result [facility] One [facility] Department [place] [address] * Magnesium (09/13/2024 9:57 PM BILLING ADMINISTRATOR) Pathologist [facility] Magnesium 2.1 1.4 - 2.5 mg/dL Blood 09/13/2024 9:57 PM BILLING ADMINISTRATOR 09/13/2024 10:27 PM BILLING ADMINISTRATOR us Dalila Torres MD LAB BLOOD ORDERABLES Fi nal Result Performing Organization Address [facility] Co de Phone Number [facility] [place] [address] * (ABNORMAL) Basic metabolic panel (09/13/2024 9:57 PM BILLING ADMINISTRATOR) [facility] Sodium 139 135 - 145 mmol/L Potassium, pl 3.7 3.3 - 4.9 mmol/L [facility] Chloride 102 97 - 110 mmol/L [facility] CO2 28 22 - 32 mmol/L [facility] Anion gap 9 2 - 15 mmol/L [facility] BUN 35(H) 6 - 25 mg/dL [facility] Creatinine 1.41(H) 0.80 - 1.30 mg/dL [facility] Glucose 126 70 - 199 mg/dL [facility] Comment: Interpretive Data Fasting glucose >/= 126 [...] 2022. Calcium 8.7 8.5 - 10.3 mg/dL [facility] Blood 09/13/2024 9:57 PM BILLING ADMINISTRATOR 09/13/2024 10:27 PM BILLING ADMINISTRATOR us Dalila Torres MD LAB BLOOD ORDERABLES Fi nal Result Performing Organization Address [facility] Co de Phone Number [facility] Department [place] [address] * (ABNORMAL) eGFR (09/12/2024 8:13 PM BILLING ADMINISTRATOR) eGFR 51(L) >=60 mL/min/1. 73 m2 Comment: [...] last reviewed 2021. Blood 09/12/2024 8:13 PM BILLING ADMINISTRATOR 09/12/2024 8:55 PM BILLING ADMINISTRATOR us Dalila Torres MD LAB BLOOD ORDERABLES Fi nal Result Performing Organization Address [facility] Co de Phone Number [facility] Department [place] [address] * (ABNORMAL) CBC without differential (09/12/2024 8:13 PM BILLING ADMINISTRATOR) [facility] WBC 7.4 3.8 - 9.9 K/cumm Hgb 11.0(L) 13.0 - 17.5 g/dL [facility] Hct 33.7(L) 38.9 - 50.3 % [facility] Plt 181 150 - 400 K/cumm [facility] MPV 11.1 9.1 - 12.3 fL [facility] RBC 3.60(L) 4.30 - 5.80 M/cumm [facility] MCV 93.6 81.3 - 96.4 fL [facility] MCH 30.6 27.1 - 33.3 pg [facility] MCHC 32.6 32.3 - 35.7 g/dL [facility] RDW CV 14.8 11.1 - 14.9 % [facility] RDW SD 51.2(H) 35.7 - 48.1 fL [facility] NRBC abs 0.00 0.00 - 0.01 K/cumm [facility] Blood 09/12/2024 8:13 PM BILLING ADMINISTRATOR 09/12/2024 8:54 PM BILLING ADMINISTRATOR us Dalila Torres MD LAB BLOOD ORDERABLES Fi nal Result Performing Organization Address City/[facility]/ZIP Co de Phone Number [facility] [place] [address] * Magnesium (09/12/2024 8:13 PM BILLING ADMINISTRATOR) [facility] Magnesium 2.0 1.4 - 2.5 mg/dL Blood 09/12/2024 8:13 PM BILLING ADMINISTRATOR 09/12/2024 8:55 PM BILLING ADMINISTRATOR us Dalila Torres MD LAB BLOOD ORDERABLES Fi nal Result [facility] [place] [address] * (ABNORMAL) Basic metabolic panel (09/12/2024 8:13 PM BILLING ADMINISTRATOR) Sodium 141 135 - 145 mmol/L Potassium, pl 3.8 3.3 - 4.9 mmol/L [facility] Chloride 106 97 - 110 mmol/L [facility] CO2 26 22 - 32 mmol/L [facility] Anion gap 9 2 - 15 mmol/L [facility] BUN 31(H) 6 - 25 mg/dL [facility] Creatinine 1.37(H) 0.80 - 1.30 mg/dL [facility] Glucose 102 70 - 199 mg/dL [facility] Comment: Interpretive Data Fasting glucose >/= 126 [...] 2022. Calcium 8.4(L) 8.5 - 10.3 mg/dL [facility] Blood 09/12/2024 8:13 PM BILLING ADMINISTRATOR 09/12/2024 8:55 PM BILLING ADMINISTRATOR us Dalila Torres MD LAB BLOOD ORDERABLES Fi nal Result [facility] Department [place] [address] * Sodium, urine, random (09/12/2024 12:36 PM BILLING ADMINISTRATOR) Sodium, ur 72 mmol/L Comment: Interpretive Data No reference range established. Current interpretive data was last revised 2018. Urine 09/12/2024 12:3 6 PM BILLING ADMINISTRATOR 09/12/2024 4:22 PM BILLING ADMINISTRATOR us Dalila Torres MD LAB URINE ORDERABLES Fi nal Result [facility] [place] [address] * POCT glucose (09/12/2024 7:52 AM BILLING ADMINISTRATOR) Glucose, POC 103 70 - 199 mg/dL Blood 09/12/2024 7:52 AM BILLING ADMINISTRATOR 09/12/2024 7:52 AM BILLING ADMINISTRATOR us Dalila Torres MD LAB POCT ORDERABLES - D EVICE Final Result Performing Organization Address [facility] Co de Phone Number [facility] [place] [address] * POCT glucose (09/12/2024 6:21 AM BILLING ADMINISTRATOR) Glucose, POC 92 70 - 199 mg/dL Blood 09/12/2024 6:21 AM BILLING ADMINISTRATOR 09/12/2024 6:21 AM BILLING ADMINISTRATOR us Dalila Torres MD LAB POCT ORDERABLES - D EVICE Final Result Performing Organization Address [facility] Co de Phone Number [facility] [place] [address] * POCT glucose (09/12/2024 2:15 AM BILLING ADMINISTRATOR) Glucose, POC 178 70 - 199 mg/dL Blood 09/12/2024 2:15 AM BILLING ADMINISTRATOR 09/12/2024 2:15 AM BILLING ADMINISTRATOR us Dalila Torres MD LAB POCT ORDERABLES - D EVICE Final Result Performing Organization Address City/[facility]/ZIP Co de Phone Number [facility] [place] [address] * (ABNORMAL) eGFR (09/11/2024 11:44 PM BILLING ADMINISTRATOR) eGFR 54(L) >=60 mL/min/1. 73 m2 Comment: [...] reviewed 2021. Blood 09/11/2024 11:4 4 PM BILLING ADMINISTRATOR 09/12/2024 12:17 AM BILLING ADMINISTRATOR us Dalila Torres MD LAB BLOOD ORDERABLES Fi nal Result [facility] Department [place] [address] * (ABNORMAL) CBC without differential (09/11/2024 11:44 PM BILLING ADMINISTRATOR) WBC 7.1 3.8 - 9.9 K/cumm Hgb 11.5(L) 13.0 - 17.5 g/dL [facility] Hct 34.7(L) 38.9 - 50.3 % [facility] Plt 172 150 - 400 K/cumm [facility] MPV 10.9 9.1 - 12.3 fL [facility] RBC 3.70(L) 4.30 - 5.80 M/cumm [facility] MCV 93.8 81.3 - 96.4 fL [facility] MCH 31.1 27.1 - 33.3 pg [facility] MCHC 33.1 32.3 - 35.7 g/dL [facility] RDW CV 14.9 11.1 - 14.9 % [facility] RDW SD 51.1(H) 35.7 - 48.1 fL [facility] NRBC abs 0.00 0.00 - 0.01 K/cumm [facility] Blood 09/11/2024 11:4 4 PM BILLING ADMINISTRATOR 09/12/2024 12:17 AM BILLING ADMINISTRATOR Dalila Torres MD LAB BLOOD ORDERABLES Fi nal Result Performing Organization Address City/[facility]/ZIP Co de Phone Number [facility] [place] [address] * Magnesium (09/11/2024 11:44 PM BILLING ADMINISTRATOR) [facility] Magnesium 2.1 1.4 - 2.5 mg/dL Blood 09/11/2024 11:4 4 PM BILLING ADMINISTRATOR 09/12/2024 12:17 AM BILLING ADMINISTRATOR Dalila Torres MD LAB BLOOD ORDERABLES Fi nal Result [facility] [place] [address] * (ABNORMAL) Basic metabolic panel (09/11/2024 11:44 PM BILLING ADMINISTRATOR) [facility] Sodium 142 135 - 145 mmol/L Potassium, pl 3.5 3.3 - 4.9 mmol/L [facility] Chloride 104 97 - 110 mmol/L [facility] CO2 27 22 - 32 mmol/L [facility] Anion gap 11 2 - 15 mmol/L [facility] BUN 30(H) 6 - 25 mg/dL [facility] Creatinine 1.30 0.80 - 1.30 mg/dL [facility] Glucose 74 70 - 199 mg/dL [facility] Comment: Interpretive Data Fasting glucose >/= 126 [...] 2022. Calcium 8.8 8.5 - 10.3 mg/dL [facility] Blood 09/11/2024 11:4 4 PM BILLING ADMINISTRATOR 09/12/2024 12:17 AM BILLING ADMINISTRATOR us Dalila Torres MD LAB BLOOD ORDERABLES Fi nal Result Performing Organization Address City/[facility]/ZIP Co de Phone Number [facility] Department [place] [address] * POCT glucose (09/11/2024 8:14 PM BILLING ADMINISTRATOR) Glucose, POC 142 70 - 199 mg/dL Blood 09/11/2024 8:14 PM BILLING ADMINISTRATOR 09/11/2024 8:14 PM BILLING ADMINISTRATOR us Dalila Torres MD LAB POCT ORDERABLES - D EVICE Final Result Performing Organization Address [facility]/ZIP Co de Phone Number [facility] Department [place] [address] * POCT glucose (09/11/2024 5:23 PM BILLING ADMINISTRATOR) Glucose, POC 91 70 - 199 mg/dL Blood 09/11/2024 5:23 PM BILLING ADMINISTRATOR 09/11/2024 5:23 PM BILLING ADMINISTRATOR Aev Tai MD LAB POCT ORDERABLES - DEVICE Final Result Performing Organization Address [facility] [place] [address] * Troponin I high-sensitivity 4-hour (09/11/2024 3:10 PM BILLING ADMINISTRATOR) [facility] Trop I hs 13 <=35 ng/L Comment: Interpretive Data For further hscTnI resources including the diagnostic algorithm and an aid in interpretation, copy and paste this link: https://bjhlab.testcatalog.org/show/hsTrop-1 Current Interpretive Data last revised 2020. Trop I hs delta -1 ng/L [facility] Trop I hs interp Insignificant [facility] Blood 09/11/2024 3:10 PM BILLING ADMINISTRATOR 09/11/2024 3:22 PM BILLING ADMINISTRATOR Ricki Ramirez MD LAB BLOOD ORDERABLES Final Result Performing Organization Address [facility] [place] [address] * POCUS Cardiac (09/11/2024 1:58 PM BILLING ADMINISTRATOR) Anatomical Region Laterality Modality Other 09/11/2024 1:28 PM BILLING ADMINISTRATOR Narrative 09/11/2024 3:02 PM BILLING ADMINISTRATOR Performed by: Jose Martin Guevara Cardiac: ?Exam [...] Troponin I high-sensitivity 2-hour (09/11/2024 1:30 PM BILLING ADMINISTRATOR) Trop I hs 14 <=35 ng/L Comment: Interpretive Data For further hscTnI resources including the diagnostic algorithm and an aid in interpretation, copy and paste this link: https://bjhlab.testcatalog.org/show/hsTrop-1 Current Interpretive Data last revised 2020. Trop I hs delta 0 ng/L [facility] Trop I hs interp Insignificant [facility] Blood 09/11/2024 1:30 PM BILLING ADMINISTRATOR 09/11/2024 2:03 PM BILLING ADMINISTRATOR us Ricki Ramirez MD LAB BLOOD ORDERABLES Final Result [facility] Department [place] [address] * (ABNORMAL) Pro B-type natriuretic peptide (09/11/2024 1:30 PM BILLING ADMINISTRATOR) Pathologist [facility] NT-proBNP 1,193(H) <=450 pg/mL Comment: Interpretive Comments: [...] Revised Date: 2018. Blood 09/11/2024 1:30 PM BILLING ADMINISTRATOR 09/11/2024 2:[address]ING ADMINISTRATOR us Ave De Leon MD LAB BLOOD ORDERABLES Final Result [facility] Department [place] [address] * XR Chest Pa Lateral 2 Views (09/11/2024 11:13 AM BILLING ADMINISTRATOR) Anatomical Region Laterality Modality Body, Chest N/A Computed Radiogr aphy 09/11/2024 11:4 4 AM BILLING ADMINISTRATOR Impressions 09/11/2024 11:44 AM BILLING ADMINISTRATOR Comparison to 12/21/2023. 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 Heart and mediastinum are unchanged. There is no pneumothorax or pleural effusion. Small lung volumes with scarring in the left midlung that is similar to the prior CT. No new focal pulmonary opacity. Electronically signed by: Eric Balbuena M.D. Narrative 09/11/2024 11:44 AM BILLING ADMINISTRATOR EXAMINATION: 2 view chest radiograph Procedure Note [...] (baseline, 2hr, 4hr, 6hr) (09/11/2024 11:03 AM BILLING ADMINISTRATOR) Pathologist [facility] Trop I hs 14 <=35 ng/L Comment: Interpretive Data For further [facility] resources including the diagnostic algorithm and an aid in interpretation, copy and paste this link: https://bjhlab.testcatalog.org/show/hsTrop-1 Current Interpretive Data last revised 2020. Blood 09/11/2024 11:0 3 AM BILLING ADMINISTRATOR 09/11/2024 11:20 AM BILLING ADMINISTRATOR us Joseph Lucas MD LAB BLOOD ORDERABLES Shanna l Result [facility] Department [place] [address] * (ABNORMAL) eGFR (09/11/2024 11:03 AM BILLING ADMINISTRATOR) Pathologist [facility] eGFR 49(L) >=60 mL/min/1. 73 m2 Comment: [...] reviewed 2021. Blood 09/11/2024 11:0 3 AM BILLING ADMINISTRATOR 09/11/2024 11:20 AM BILLING ADMINISTRATOR us Joseph Lucas MD LAB BLOOD ORDERABLES Shanna orozco Result [facility] Department [place] [address] * Differential, auto (09/11/2024 11:03 AM BILLING ADMINISTRATOR) Neutrophil abs 4.9 1.5 - 6.5 K/cumm Imm gran abs 0.0 0.0 - 0.1 K/cumm [facility] Lymphocyte abs 1.4 0.8 - 3.3 K/cumm [facility] Monocyte abs 0.7 0.2 - 0.8 K/cumm [facility] Eosinophil abs 0.1 0.0 - 0.5 K/cumm [facility] Basophil abs 0.0 0.0 - 0.1 K/cumm [facility] Neutrophil pct 67.9 % [facility] Comment: Interpretive Data Percent cell count reference ranges are not reported, since discordance with absolute values may lead to misinterpretation of CBC data. Current Interpretive Data was last revised on 2017. Imm gran pct 0.4 % [facility] Comment: Interpretive Data Percent cell count reference ranges are not reported, since discordance with absolute values may lead to misinterpretation of CBC data. Current Interpretive Data was last revised on 2017. Lymphocyte pct 19.8 % [facility] Comment: Interpretive Data Percent cell count reference ranges are not reported, since discordance with absolute values may lead to misinterpretation of CBC data. Current Interpretive Data was last revised on 2017. Monocyte pct 9.6 % [facility] Comment: Interpretive Data Percent cell count reference ranges are not reported, since discordance with absolute values may lead to misinterpretation of CBC data. Current Interpretive Data was last revised on 2017. Eosinophil pct 1.9 % [facility] Comment: Interpretive Data Percent cell count reference ranges are not reported, since discordance with absolute values may lead to misinterpretation of CBC data. Current Interpretive Data was last revised on 2017. Basophil pct 0.4 % [facility] Comment: Interpretive Data Percent cell count reference ranges are not reported, since discordance with absolute values may lead to misinterpretation of CBC data. Current Interpretive Data was last revised on 2017. Blood 09/11/2024 11:0 3 AM BILLING ADMINISTRATOR 09/11/2024 11:20 AM BILLING ADMINISTRATOR Joseph Lucas MD LAB BLOOD ORDERABLES Shanna orozco Result [facility] Department [place] [address] * (ABNORMAL) CBC with auto differential (09/11/2024 11:03 AM BILLING ADMINISTRATOR) WBC 7.3 3.8 - 9.9 K/cumm Hgb 11.0(L) 13.0 - 17.5 g/dL [facility] Hct 33.2(L) 38.9 - 50.3 % [facility] Plt 175 150 - 400 K/cumm [facility] MPV 10.6 9.1 - 12.3 fL [facility] RBC 3.51(L) 4.30 - 5.80 M/cumm [facility] MCV 94.6 81.3 - 96.4 fL [facility] MCH 31.3 27.1 - 33.3 pg [facility] MCHC 33.1 32.3 - 35.7 g/dL [facility] RDW CV 14.9 11.1 - 14.9 % [facility] RDW SD 51.4(H) 35.7 - 48.1 fL [facility] NRBC abs 0.00 0.00 - 0.01 K/cumm [facility] Blood (Blood, Venous) 09/11/2024 11:03 AM BILLING ADMINISTRATOR 09/11/2024 11:20 AM BILLING ADMINISTRATOR us Joseph Lucas MD LAB BLOOD ORDERABLES Shanna orozco Result [facility] Department [place] [address] * (ABNORMAL) Comprehensive metabolic panel (09/11/2024 11:03 AM BILLING ADMINISTRATOR) Sodium 142 135 - 145 mmol/L Potassium, pl 3.6 3.3 - 4.9 mmol/L [facility] Chloride 102 97 - 110 mmol/L [facility] CO2 28 22 - 32 mmol/L [facility] Anion gap 12 2 - 15 mmol/L [facility] BUN 33(H) 6 - 25 mg/dL [facility] Creatinine 1.40(H) 0.80 - 1.30 mg/dL [facility] Glucose 114 70 - 199 mg/dL [facility] Comment: Interpretive Data Fasting glucose >/= 126 [...] 2022. Calcium 8.9 8.5 - 10.3 mg/dL [facility] Bilirubin, total 0.4 0.1 - 1.2 mg/dL [facility] Protein, pl 6.9 6.5 - 8.5 g/dL [facility] Albumin 3.9 3.5 - 5.0 g/dL [facility] Alk phos 43 40 - 130 Units/L [facility] ALT 13 7 - 55 Units/L [facility] AST 24 10 - 50 Units/L [facility] Blood 09/11/2024 11:0 3 AM BILLING ADMINISTRATOR 09/11/2024 11:20 AM BILLING ADMINISTRATOR us Joseph Lucas MD LAB BLOOD ORDERABLES Shanna pam Result [facility] Department [place] [address] * ECG 12-LEAD (09/11/2024 10:52 AM BILLING ADMINISTRATOR) Narrative [facility] - 09/11/2024 10:52 AM BILLING ADMINISTRATOR Hermilo Linares MD ? 09/11/2024 10:55 AM [...] ORDERABLES Final Res ult Performing Organization Address City/[facility]/ZIP Co de Phone Number [facility] * POCT glucose (09/11/2024 10:48 AM BILLING ADMINISTRATOR) Glucose, POC 112 70 - 199 mg/dL Blood 09/11/2024 10:4 8 AM BILLING ADMINISTRATOR 09/11/2024 10:48 AM BILLING ADMINISTRATOR Notinfile Unknown LAB POCT ORDERABLES - DEVICE F inal Result Performing Organization Address [facility] Co de Phone Number [facility] Department [place] [address] * (ABNORMAL) eGFR (09/10/2024 12:26 PM BILLING ADMINISTRATOR) eGFR 54(L) >=60 mL/min/1. 73 m2 Comment: [...] reviewed 2021. Blood 09/10/2024 12:2 6 PM BILLING ADMINISTRATOR 09/10/2024 1:37 PM BILLING ADMINISTRATOR us Rehan Sheth MD LAB BLOOD ORDERABLES F inal Result [facility] Department [place] [address] * (ABNORMAL) Pro B-type natriuretic peptide (09/10/2024 12:26 PM BILLING ADMINISTRATOR) NT-proBNP 2,273(H) <=450 pg/mL Comment: Interpretive Comments: [...] Date: 2018. Blood 09/10/2024 12:2 6 PM BILLING ADMINISTRATOR 09/10/2024 1:32 PM BILLING ADMINISTRATOR us Rehan Sheth MD LAB BLOOD ORDERABLES F inal Result [facility] Department [place] [address] * (ABNORMAL) Basic metabolic panel (09/10/2024 12:26 PM BILLING ADMINISTRATOR) Pathologist [facility] Sodium 142 135 - 145 mmol/L Potassium, pl 3.9 3.3 - 4.9 mmol/L [facility] Chloride 104 97 - 110 mmol/L [facility] CO2 28 22 - 32 mmol/L [facility] Anion gap 10 2 - 15 mmol/L [facility] BUN 31(H) 6 - 25 mg/dL [facility] Creatinine 1.29 0.80 - 1.30 mg/dL [facility] Glucose 126 70 - 199 mg/dL [facility] Comment: Interpretive Data Fasting glucose >/= 126 [...] Calcium 9.2 8.5 - 10.3 mg/dL [facility] Blood 09/10/2024 12:2 6 PM BILLING ADMINISTRATOR 09/10/2024 1:32 PM BILLING ADMINISTRATOR Rehan Sheth MD LAB BLOOD ORDERABLES F inal Result [facility] Department [place] [address] * ECG 12 lead (09/10/2024 11:33 AM BILLING ADMINISTRATOR) Rehan Sheth MD ECG ORDERABLES Edited Result - Final * XR Scoliosis Ap and Lateral (08/26/2024 11:42 AM BILLING ADMINISTRATOR) Anatomical Region Laterality Modality Spine N/A Computed Radiogr aphy 08/26/2024 12:3 0 PM BILLING ADMINISTRATOR Impressions 08/26/2024 12:30 PM BILLING ADMINISTRATOR 1. ??Mild thoracolumbar curvature with leftward coronal and anterior sagittal imbalance Electronically signed by: Mehran Sotomayor MD Narrative 08/26/2024 12:30 PM BILLING ADMINISTRATOR EXAMINATION: XR SCOLIOSIS AP AND LATERAL HISTORY: [...] (ABNORMAL) Basic metabolic panel (07/30/2024 12:37 PM BILLING ADMINISTRATOR) Glucose 143(H) 65 - 99 mg/dL [facility]an[facility] Comment: ? Fasting reference interval For someone without known diabetes, a glucose value >125 mg/dL indicates that they may have diabetes and this should be confirmed with a follow-up test. BUN 22 7 - 25 mg/dL [facility] francisco Villanueva Creatinine 1.04 0.70 - 1.22 mg/dL [employer] franc[facility]ueva eGFR 71 > OR = 60 mL/min/1.7 3m2 [employer] Villanueva BUN/creat ratio SEE NOTE: (calc) [facility]osa [facility] Villanueva Comment: ?? Not Reported: BUN and Creatinine are within ?? reference range. ? Sodium 141 135 - 146 mmol/L [facility] francisco Villanueva Potassium, pl 4.2 3.5 - 5.3 mmol/L [facility] franc[facility] Vill[facility]ue[facility] Chloride 103 98 - 110 mmol/L [facility] franc[facility] Villanue[facility] CO2 30 20 - 32 mmol/L [facility] franc[facility] Calcium 8.9 8.6 - 10.3 mg/dL [facility] franc[facility] Villanueva Blood 07/30/2024 12:3 7 PM BILLING ADMINISTRATOR 07/30/2024 12:38 PM BILLING ADMINISTRATOR Rehan Sheth MD LAB BLOOD ORDERABLES F inal Result Performing Organization Address [facility] Co de Phone Number [facility] Sosa [place] [address] [place] [address] * (ABNORMAL) Basic metabolic panel (07/16/2024 11:34 AM BILLING ADMINISTRATOR) [facility] Glucose 115 65 - 139 mg/dL Sosa [...] francisco Villanueva Blood 07/16/2024 11:3 4 AM BILLING ADMINISTRATOR 07/16/2024 11:34 AM BILLING ADMINISTRATOR Narrative [facility] - 07/16/2024 10:30 PM BILLING ADMINISTRATOR INSURANCE VERIFIED FASTING:NO FASTING: NO Rehan Sheth MD LAB BLOOD ORDERABLES F inal Result Performing Organization Address [facility]/ZIP Co de Phone Number [facility] Dorinda [place] [address] [place] [address] * (ABNORMAL) Basic metabolic panel (06/24/2024 10:29 AM BILLING ADMINISTRATOR) Glucose 163(H) 65 - 99 mg/dL [facility] Blood 06/24/2024 10:2 9 AM BILLING ADMINISTRATOR 06/24/2024 10:30 AM BILLING ADMINISTRATOR Rehan Sheth MD LAB BLOOD ORDERABLES F inal Result [facility] [address] [place] [address] * (ABNORMAL) Hemoglobin A1c (06/07/2024 8:38 AM CDT) Hgb A1C 6.1(H) 4.0 - 5.6 % Estimated Average Glucose 128 mg/dL [facility] Comment: The ADA recommends reporting an estimated Average Glucose (eAG) with all Hemoglobin A1c results using the equation derived from a study of 507 normal and diabetic adults. ??Minority populations were underrepresented and children were not included. ?? (Diabetes Care 31:1933-5737, 2008). ??The eAG is not equivalent to a fasting glucose. Blood 06/07/2024 8:38 AM CDT 06/07/2024 9:07 AM CDT us Joe Hood MD LAB BLOOD ORDER MAITE Final Result Performing Organization Address City/State/ZIP Co nj Phone Number [facility] [address] [facility] [place] [address] * Lipid panel (06/07/2024 8:38 AM CDT) [...] LAB BLOOD ORDER MAITE Final Result [facility] [address] [facility] [place] [address] * DIABETES FOOT EXAM (11/05/2020) [...] for admission to 9200 09/12/2024 09/12/2024 Insurance [employer] MEDICARE PPO [facility] Address: [address] [address] [place] [address] [employer] [facility] Address: [address] [address] Advance Directives For more information, please contact: [phone] Documents on File Type Date Recorded Patient Engine Builder Expl anation ADVANCE DIRECTIVE 12/27/2023 10:41 PM Jorge Pryor P OWER OF CALENDER ROLL OPERATOR-MEDICAL ADVANCE DIRECTIVE 12/26/2023 10:38 AM Yazmin Medina POWER OF CALENDER ROLL OPERATOR-FINANCIAL * Full Code (Latest Code Status on [...] Communication Jorge Pryor Spouse Health Care Agent [email or web address] Yazmin Medina Daughter First Alternate Health Care Agent [email or web address] Adult Education Instructor Relationship Specialty Start Date End Date Barry [email or web address] MD PCP - General Family Practice 05/22/24 Rehan Sheth MD [address] [facility] [address] [place] [address] Consulting Physician Cardiology 09/09/24 Sangita Moore, RN [address] [facility] [address] [place] [address] SHOP Outpatient Weather Algorithm Scientist 09/15/24
--- OUTSIDE RECORDS SUMMARY | 2024-09-18 04:07 | XMS_ITS | Clinical Summary ---
Author Organization [facility] Address Formerly [facility] [place] [address] [place] [address] Care Team Providers Care Carpet Inspector Finished Name Role Phone Robin Nelson MD Primary Care Provider [phone] Allergies No known active allergies Medications warfarin [...] Active METFORMIN 1000 MG tabletIndications :Diabetes mellitus ([facility]) TAKE 1 TABLET BY MOUTH TWICE A DAY 60 tablet 2 1 Active PIOGLITAZONE 15 MG tabletIndications :Type 2 diabetes mellitus with stage 3a chronic kidney disease, without long-term current use of insulin ([facility]) TAKE 1 TABLET BY MOUTH [...] Date COPD (chronic obstructive pu lmonary disease) ([facility]) 02/02/2020 Diabetes mellitus ([facility]) Hypertension Immunizations Name Administration Dates Next Due Flublok (Quadrivalent) 06/02/2020 Fluzone High Dose - >Age 65 (Prefilled Syringe) 07/02/2018 PFIZER COVID-19 (ORIGINAL FO RMULATION, PURPLE CAP) mRNA, LNP-S, PF, 30 MCG/0.3 ML DOSE 10/23/2020,09/25/2020 Tdap (Generic) 03/08/2019,03/19/2016 Zoster (Zostavax) 99594 Unt/0.65Ml 03/19/2016 Social History Tobacco Use Types [...] Comments Blood Pressure 155/71 09/19/2021 12:53 PM VIDEO GAME TESTER Pulse 68 09/19/2021 12:53 PM VIDEO GAME TESTER Temperature 35.8 ??C (96.5 ??F) 09/19/2021 11:[address] Respiratory Rate 20 09/19/2021 11:03 AM VIDEO GAME TESTER Oxygen Saturation 95% 09/19/2021 12:53 PM VIDEO GAME TESTER Inhaled Oxygen Concentration - - Weight 113.4 kg (250 lb) 09/15/2021 2:17 PM VIDEO GAME TESTER Height 182.9 cm (6') 09/15/2021 2:17 PM VIDEO GAME TESTER Body Mass Index 33.91 09/15/2021 2:17 PM VIDEO GAME TESTER Plan of Treatment Health Maintenance Due Date [...] this topic Medical Devices Implanted Type Area Qa Automation Engineer Device Identifier Shelf Expiration Date Model / Serial / Lot Intraocular Lens Implanted:Qty: 1 on 09/19/2021 by Daren Ralph MD at [facility] Left: Eye 04/14/2023 [id number] / [id number] / Procedures Procedure Name Priority Date/Time Associated Diagnosis Comments HEMOGLOBIN, GLYCOSYLATED Routine 07/05/2020 Type 2 diabetes mellitus with stage 3a chronic kidney disease, without long-term current use of insulin ([facility]) LIPID PANEL Routine 02/02/2020 11:47 AM CDT Dyslipidemia from Last 3 Months or Most Recently Relevant to Health Maintenance Results * HEMOGLOBIN, GLYCOSYLATED (07/05/2020) B A1C 8.2 % [facility] ([id number] [facility] [place] 07/05/2020 Collette Stockton MD LABORATORY Final Result FRANC[facility]CO AARON ([id number] [facility]) [place] [id number] [place] [address], * (ABNORMAL) LIPID PANEL (02/02/2020 11:47 AM CDT) Pathologist [facility] CHOLESTEROL 123 <200 mg/dL [facility] HDL 37(L) > OR = 40 mg/dL [facility] TRIGLYCERIDES 237(H) <150 mg/dL [facility] Comment: If a non-fasting specimen was collected, consider repeat triglyceride testing on a fasting specimen if clinically indicated. Amrit et al. J. of Clin. Lipidol. 2015;9:129-169. LDL (CALCULATED) 56 mg/dL (calc) [facility] Comment: Reference range: <100 Desirable range <100 mg/dL for primary prevention; ?? <70 mg/dL for patients with CHD or diabetic patients with > or = 2 CHD risk factors. LDL-C is now calculated using the Herber-Eduard calculation, which is a validated novel method providing better accuracy than the Friedewald equation in the estimation of LDL-C. Herber SS et al. SADE. 2013;310(19): 8145-5469 (http://education.Adomo.[employer]/faq/VJI250) CHOL/HDL RATIO 3.3 <5.0 (calc) [facility] NON HDL CHOLESTEROL 86 <130 mg/dL (calc) [facility] Comment: For patients with diabetes plus 1 major ASCVD risk factor, treating to a non-HDL-C goal of <100 mg/dL (LDL-C of <70 mg/dL) is considered a therapeutic option. 02/02/2020 11:4 7 AM CDT 02/03/2020 3:01 AM CDT Narrative Resulting Agency Comment Performing Organization Information: ?Site ID: [email or web address] ?Name: [facility] ?Address: [address] [address] ?Director: Siva Roman D.O., MPH us Collette Stockton MD LABORATORY Final Result [facility] [address] [address], from Last 3 Months or Most Recently Relevant to Health Maintenance Insurance [facility] Care Teams Carpet Inspector Finished Relationship Specialty Start Date End Date Robin Nelson MD [address] [place] [address] PCP - General INTERNAL MEDICINE 08/10/21
[2024-09-18] MEDS: PROCHLORPERAZINE EDISYLATE 10 MG/2 ML VIAL IM (04:09)
--- NOTE | 2024-09-18 04:10 | PC.NURSE ---
Dr. Galvin at bedside. patient medicated per order, see MAR. patient given warm blanket. denies futher needs.
[2024-09-18 04:19] LABS: Alanine Aminotransferase 16 U/L (16-63); Albumin Level 2.9 g/dL (3.4-5.0); Alkaline Phosphatase 49 U/L (46-116); Anion Gap 11 mmol/L (4-12); Aspartate Amino Transferase 24 U/L (15-37); Bilirubin,Total 0.3 mg/dL (0.00-1.00); Blood Urea Nitrogen 29 mg/dL (7-18); Calcium 8.4 mg/dL (8.5-10.1); Carbon Dioxide 28 mmol/L (21-32); Chloride 100 mmol/L (98-108); Estimated CRCL calculation 62 ml/min; Estimated Glomerular Filt Rate 45; Glucose 65 mg/dL (70-99); Magnesium 1.8 mg/dL (1.8-2.4); NT Pro B Type Natriuretic Pept 1849 pg/mL (0-450); Osmolality Calculated 291 mOsm/kg (285-295); Potassium 2.9 mmol/L (3.5-5.1); Sodium 139 mmol/L (136-145); Troponin I 31.2 ng/L (0.00-60.4)
--- NOTE | 2024-09-18 04:25 | PC.NURSE ---
PATIENT RESTING ON STRETCHER. MEDICATED FOR NAUSEA PER OCT. CALL LIGHT IN REACH. DENIES ANY OTHER NEEDS AT THIS TIME.
[2024-09-18 04:30] LABS: Influenza A QL RT-PCR Negative (Negative); Influenza B QL RT-PCR Negative (Negative); RSV RNA, RT-PCR Negative (Negative); SARS-CoV-2 RNA PCR Negative (Negative)
[2024-09-18] MEDS: LACTATED RINGERS 500 ML 999 ML IV CONT (04:41)
[2024-09-18] MEDS: KCL 20 MEQ/SW 100 ML 100 ML 50 MEQ IVPB (04:42)
--- NOTE | 2024-09-18 05:57 | PC.NURSE ---
PATIENT AMBULATED TO THE BATHROOM AND BACK TO ROOM WITH ASSISTANCE FROM KAREY SINCLAIR
--- NOTE | 2024-09-18 06:53 | PC.NURSE ---
DR URBINA NOTIFEID THAT POTASSIUM INFUSION COMPLETED.
--- NOTE | 2024-09-18 07:08 | PC.NURSE ---
REPORT GIVEN TO PENNY DUMONT
[2024-09-18 07:27] LABS: Anion Gap 9 mmol/L (4-12); Blood Urea Nitrogen 29 mg/dL (7-18); Carbon Dioxide 26 mmol/L (21-32); Chloride 102 mmol/L (98-108); Estimated CRCL calculation 66 ml/min; Estimated Glomerular Filt Rate 48; Glucose 69 mg/dL (70-99); Osmolality Calculated 287 mOsm/kg (285-295); Potassium 2.8 mmol/L (3.5-5.1); Sodium 137 mmol/L (136-145)
[2024-09-18] MEDS: POTASSIUM BICARBONATE 25 MEQ TABEF 50 MEQ PO (07:49)
== END 2024-09-18 07:57 | disposition home or self-care (01) ==
PROVIDERS: Emergency Provider Internal Medicine Critical Care Medicine
DX: N17.9 Acute kidney failure, unspecified (principal); K52.9 Noninfective gastroenteritis and colitis, unspecified; E87.6 Hypokalemia; E78.5 Hyperlipidemia, unspecified; J44.9 Chronic obstructive pulmonary disease, unspecified; I13.0 Hypertensive heart and chronic kidney disease with heart failure and stage 1 through stage 4 chronic kidney disease, or unspecified chronic kidney disease; E11.22 Type 2 diabetes mellitus with diabetic chronic kidney disease; I50.33 Acute on chronic diastolic (congestive) heart failure; N18.2 Chronic kidney disease, stage 2 (mild); I48.91 Unspecified atrial fibrillation; Z86.73 Personal history of transient ischemic attack (TIA), and cerebral infarction without residual deficits; Z79.51 Long term (current) use of inhaled steroids; Z79.01 Long term (current) use of anticoagulants; Z79.84 Long term (current) use of oral hypoglycemic drugs; Z79.82 Long term (current) use of aspirin; Z79.4 Long term (current) use of insulin; Z20.822 Contact with and (suspected) exposure to COVID-19
CPT/HCPCS: 36415; 71045; 80048; 80053; 83735; 83880; 84484; 85025; 87637; 93005; 96365; 96366; 96372; 99284; A9270; J0780; J3480; J7120

== ENCOUNTER 2024-09-21 07:14 | Emergency (ER) | payer MEDICARE, SELFPAY ==
--- NOTE | ~2024-09-21 | XR_ITS ---
EXAMINATION: XR chest 1V portable DATE: 09/21/2024 08:04 INDICATION: Shortness of breath and chest pain TECHNIQUE: frontal view of the chest was obtained. COMPARISON: Chest radiograph dated 09/18/2024 FINDINGS: Calcified nodule in the left midlung zone consistent with old granulomatous disease. Mild cardiomegal y with change of prior median sternotomy and valve repair. Portions of the left heart border are brittanie stinct which could be due to adjacent pericardial fat pad versus atelectasis or pneumonia. No pulmona ry edema, pleural effusion or pneumothorax. IMPRESSION: 1. Indistinctness to the left heart border which could be due to pericardial fat pad, atelectasis or pneumonia. 2. Mild cardiomegaly. Reviewed, dictated and finalized at location A. GRINDER IMPRESSION: 1. Indistinctness to the left heart border which could be due to pericardial fa t pad, atelectasis or pneumonia. 2. Mild cardiomegaly.
--- NOTE | 2024-09-21 07:17 | ECG_ITS ---
Test Date: 2024-09-21 07:24:15 Measurements Intervals [place] Rate: 67 P: 39 SC: 222 QRS: -21 QRSD: 169 T: 39 QT: 492 QTc: 522 Interpretive Statements SINUS RHYTHM WITH FIRST DEGREE AV BLOCK WITH SUPRAVENTRICULAR TRIGEMINY LEFT BUNDLE BRANCH BLOCK BASELINE ARTIFACT- I, II, AVR, V4-V5 ABNORMAL ECG Compared to ECG 09/18/2024 03:41:50 SUPRAVENTRICULAR TRIGEMINY NOW PRESENT Electronically Signed On 09-21-2024 08:39:41 POWER SCREWDRIVER OPERATOR by Isaiah Burk D.O.
--- NOTE | 2024-09-21 07:19 | ED_ITS ---
HPI - Chest Pain General Chief Complaint: Anxiety Stated Complaint: chest pain Time Seen by Provider: 09/21/24 07:15 Source: patient and family Mode of arrival: ambulatory Limitations: no limitations History of Present Illness HPI narrative: Patient is an 84-year-old male with some anxiety this morning and insomnia here for similar complaints. He also has left-sided chest pain from time to time and some shortness of breath. He had stents placed 2023 with CAD. Nausea vomiting and diarrhea last week which has resolved at this time. He has a sensation of impending doom. History of left bundle branch block. history of AFib on Eliquis. complaint: chest discomfort Pertinent past history: coronary artery disease Onset (ago): day(s) (3) Timing of current episode: episodic ( specifically at night when he is anxious and cannot sleep) Prior episodes: Yes Onset: during rest Pain location: substernal and left chest Pain radiation: none Severity: mild Pain scale (0-10): 1 Quality: tightness Relieving factors: nothing Exacerbating factors: nothing Associated symptoms: nausea, vomiting, dyspnea, sense of impending doom and other ( insomnia) Treatment prior to arrival: none Risk Factors Coronary artery disease risk factors: smoking history, hyperlipidemia and hypertension Thoracic aortic dissection risk factors: none Related Data Home Medications ?Medication ?Instructions ?Recorded ?Confirmed ?Last Taken ?Type albuterol sulfate 90 mcg/actuation 1 inh inhalation Q4H PRN Shortness 12/27/23 09/18/24 05/17/24 History aerosol inhaler Of Breath Or Wheezing apixaban 5 mg tablet 5 mg PO BID 12/27/23 09/18/24 05/17/24 History glipizide 5 mg tablet, extended 5 mg PO DAILY 12/27/23 09/18/24 05/17/24 History release 24 hr lancets 30 gauge 12/27/23 09/21/24 Unknown History atorvastatin 80 mg tablet 80 mg PO DAILY 05/29/24 09/18/24 Unknown History clopidogrel 75 mg tablet 75 mg PO DAILY 09/21/24 Unknown History isosorbide mononitrate 30 mg 30 mg PO DAILY 09/21/24 Unknown History tablet,extended release 24 hr methocarbamol 500 mg tablet 500 mg PO BID MUSCLE SPASM 09/21/24 Unknown History paroxetine HCl 20 mg tablet 20 mg PO QAM 02/02/25 Unknown History simvastatin 20 mg tablet 20 mg PO QPM 09/21/24 Unknown History Allergies Allergy/AdvReac Type Severity Reaction Status Date / Time metformin AdvReac Intermediate Diarrhea Verified 09/21/24 07:24 Review of Systems 2 Review of Systems: All systems reviewed & are unremarkable except as noted in HPI and below Constitutional: Constitutional: Reports no additional constitutional complaints Eyes: Eyes: Reports no additional eye complaints ENT: Reports system reviewed and no additional complaints, except as documented Cardiovascular: Cardiovascular: Reports no additional cardiovascular complaints Respiratory: Respiratory: Reports no additional respiratory complaints Gastrointestinal: Gastrointestinal: Reports no additional gastrointestinal complaints Genitourinary: Genitourinary: Reports no additional male genitourinary complaints Musculoskeletal: Musculoskeletal: Reports no additional musculoskeletal complaints Integumentary/Breasts: Skin/Breast: Reports system reviewed and no additional complaints, except as docu Neurologic: Reports system reviewed and no additional complaints, except as documented Psychiatric: Psychiatric: Reports no additional psychiatric complaints Endocrine: Endocrine: Reports no additional endocrine complaints Hematologic/Lymphatic: Hematologic/Lymphatic: Reports no additional hematologic/lymphatic complaints Allergic/Immunologic: Allergic/Immunologic: Reports no additional allergic/immunologic complaints PMFSH Past Medical History Medical History TIA (transient ischemic attack) Right-sided extracranial carotid artery stenosis COPD (chronic obstructive pulmonary disease) Diabetes mellitus CHF (congestive heart failure) Atrial fibrillation Aortic valve disease Surgical History Surgical History H/O aortic valve replacement Family History Family History Father Hypertension Heart disease Mother Cancer Diabetes mellitus Hypertension Social History Social History Smoking status: Never smoker Alcohol intake: never Substance use: never Substance use type: does not use Do You Feel Safe in your Home?: Yes Lack of Transportation: No Lack of Food: Never True Current Housing: I Have Housing Concerned About Future Housing: No Difficulty Paying Gas/Electric Bills: No Difficulty Paying for Meds: No Currently Unemployed: No Education: High School Diploma/GED Difficulty w/ Childcare or Family Care: No Living arrangements: with family Occupation/Education: retired Gender identity (if verbalized by the patient): Male Spiritual care concerns: No Exam 2 Const: General: healthy appearing Nutritional Appearance: well nourished Orientation/consciousness: patient oriented x3 Limitations: no limitations HENMT: Head: normal to inspection Ears: external ears normal F sanaz/Nose/Sinus: Normal external nose present Eyes: Conjunctivae: conjunctivae normal Pupils: Equal, round and reactive pupils present EOM: EOMs intact bilaterally Neck: Neck: normal visual inspection Chest: Chest palpation & inspection: normal inspection of the chest Resp: Effort & Inspection: normal respiratory effort and not labored A uscultation: clear to auscultation bilaterally and no crackles Cardio: Rate: regular rate Rhythm: regular rhythm Heart sounds: no murmurs Other: History AFib GI: Inspection: non-distended GI Palp: Yes Soft to palpation, No Tenderness to palpation present (GI) and No Guarding due to palpation present (GI) A uscultation: normal bowel sounds : General: Yes bladder normal to palpation Back/Spine/Pelvis: Back: no CVA tenderness Skin: General skin exam: normal color Rashes: no rashes Wounds: no wounds Neuro: General: patient oriented x3 Cranial nerves: Yes Nystagmus not present Speech: normal speech Gait exam (Neuro): Normal gait present Extrem: General: normal to inspection Psych: Mental Status: mental status grossly normal Affect: normal affect Attitude: cooperative Course Vital Signs Vital signs: Vital Signs Temperature 36.7 C 09/21/24 07:37 Pulse Rate 78 09/21/24 07:37 Respiratory Rate 20 09/21/24 07:37 Blood Pressure 131/66 09/21/24 07:37 Pulse Oximetry 98 09/21/24 07:37 Oxygen Delivery Room Air 09/21/24 07:37 Temperature 36.7 C 09/21/24 07:37 Pulse Rate 78 09/21/24 07:37 Respiratory Rate 20 09/21/24 07:37 Blood Pressure 131/66 09/21/24 07:37 Pulse Oximetry 98 09/21/24 07:37 Oxygen Delivery Room Air 09/21/24 07:37 MDM - Chest Pain MDM Narrative Medical decision making narrative: patient is an 84-year-old male with anxiety issues and impending doom. He cannot sleep. Some left-sided chest pain and shortness of breath. We will do workup this time. Lab Data Attestation: I reviewed the patient's lab results. 09/21/24 08:13 09/21/24 08:13 Labs: Lab Results 09/21/24 Range/Units 08:13 WBC 5.5 (4.8-10.8) K/mm3 RBC 3.99 L (4.70-6.10) M/mm3 Hgb 12.0 L (12.4-15.3) g/dL Hct 36.7 L (37.0-46.0) % MCV 92.0 (78.0-102.0) fL MCH 30.1 (27.0-31.0) pg MCHC 32.7 (32-36) g/dL RDW 14.2 (11.6-14.4) % Plt Count 167 (150-420) K/mm3 MPV 11.5 H (8.7-11.0) fl Immature Gran % (Auto) 0.5 H (0.0-0.0) % Neut % (Auto) 65.5 (50.0-70.0) % Lymph % (Auto) 22.9 (18.0-42.0) % [place] % (Auto) 8.5 (2.0-11.0) % Eos % (Auto) 2.2 (1.0-6.0) % Baso % (Auto) 0.4 (0.0-1.0) % Lymph # (Auto) 1.26 (1.10-4.50) K/mm3 [place] # (Auto) 0.47 (0.10-0.90) K/mm3 Eos # (Auto) 0.12 (0.02-0.50) K/mm3 Baso # (Auto) 0.02 (0.00-0.10) K/mm3 Abs Immat Gran (auto) 0.03 H (0.00-0.00) K/mm3 Absolute Neuts (auto) 3.61 (1.70-7.20) K/mm3 Absolute Nucleated RBC 0.00 (0.00-0.00) K/mm3 Nucleated RBC % 0.0 (0-0.0) % Sodium 139 (136-145) mmol/L Potassium 3.8 (3.5-5.1) mmol/L Chloride 102 (98-108) mmol/L Carbon Dioxide 26 (21-32) mmol/L Anion Gap 11 (4-12) mmol/L BUN 23 H (7-18) mg/dL Creatinine 1.32 H (0.70-1.30) mg/dL Estim Creat Clear Calc 40 ml/min Estimated GFR 52 L (59 - ) Glucose 112 H (70-99) mg/dL Calculated Osmolality 292 (285-295) mOsm/kg Lactic Acid 1.1 (0.4-2.0) mmol/L Calcium 8.7 (8.5-10.1) mg/dL Total Bilirubin 0.3 (0.00-1.00) mg/dL AST 21 (15-37) U/L ALT 13 L (16-63) U/L Alkaline Phosphatase 39 L (46-116) U/L Troponin I 27.2 (0.00-60.4) ng/L NT-Pro-B Natriuret Pep 1929 H (0-450) pg/mL Total Protein 6.8 (6.4-8.2) g/dL Albumin 2.9 L (3.4-5.0) g/dL Urine Color Light yellow (Yellow) Urine Appearance Clear (Clear) Urine pH 5.5 (5.0-8.0) Ur Specific [place] 1.010 (1.010-1.020) Urine Protein Negative (Negative) Urine Glucose (UA) Negative (Negative) Urine Ketones Negative (Negative) Ur Blood (Man) Negative (Negative) Urine Nitrate Negative (Negative) Urine Bilirubin Negative (Negative) Urine Urobilinogen 0.2 (0.2-1.0) mg/dL Leukocyte Esterase Rfl Negative (Negative) JUAN/UL Imaging Data Attestation: I personally reviewed and interpreted this imaging study as follows: Radiologist's impression: Chest x-ray shows questionable left-sided heart border pneumonia process ECG Data EKG #1: Attestation: I personally reviewed and interpreted this ECG as follows: ECG completion date: 09/21/24 ECG completion time: 09:25 EKG Interpretation: normal rate, sinus rhythm, no ectopy, PVCs, non- specific ST changes, widened QRS, LBBB ( known), normal QT and NL axis Discharge Plan Discharge Clinical Impression: Pneumonia Qualifiers: Pneumonia type: due to unspecified organism Laterality: left Lung location: u nspecified part of lung Qualified Code(s): J18.9 - Pneumonia, unspecified organism Patient Disposition: Home, Self-Care Condition: Stable Instructions: Antibiotic Form, Community Acquired Pneumonia (ED), Anxiolysis in Adults (ED), Depression in Older Adults (ED) Additional Instructions: Please follow-up with the primary doctor in the next week. Please discuss further sleeping problems with the primary doctor and consider anxiety/ depression medication to assist with this problem. Patient Language: Panamanian Prescriptions: New levofloxacin 500 mg tablet 500 mg PO DAILY Qty: 7 0RF No Action potassium chloride [K-Tab] 20 mEq tablet extended release 20 meq PO BID 4 Days Qty: 8 0RF potassium chloride [K-Tab] 20 mEq tablet extended release 20 meq PO DAILY Qty: 30 0RF isosorbide mononitrate 30 mg tablet extended release 24 hr 30 mg PO DAILY methocarbamol 500 mg tablet 500 mg PO BID clopidogrel 75 mg tablet 75 mg PO DAILY simvastatin 20 mg tablet 20 mg PO QPM paroxetine HCl 20 mg tablet 20 mg PO QAM apixaban 5 mg tablet 5 mg PO BID glipizide 5 mg tablet extended release 24hr 5 mg PO DAILY (DME) lancets 30 gauge misc See Rx Instructions .Route Rx Instructions: As directed albuterol sulfate 90 mcg/actuation HFA aerosol inhaler 1 inh inhalation Q4H PRN (Reason: Shortness Of Breath Or Wheezing) atorvastatin 80 mg tablet 80 mg PO DAILY carvedilol 25 mg tablet 25 mg PO BID Qty: 180 3RF doxazosin 4 mg tablet 4 mg PO DAILY Qty: 90 3RF losartan 100 mg tablet 100 mg PO DAILY Qty: 90 3RF amlodipine 10 mg tablet 10 mg PO DAILY Qty: 90 3RF furosemide 40 mg tablet 40 mg PO DAILY Qty: 90 3RF (DME) blood-glucose meter [Accu-Chek Guide Glucose Meter] Misc See Rx Instructions .Route Qty: 1 3RF Rx Instructions: Check Blood Glucose 1xday As directed (DME) Accu-Chek Guide test strips Strip See Rx Instructions .Route Qty: 100 3RF Rx Instructions: Check blood glucose 1xday As directed Follow-up/Referrals: UNKNOWN,DOCTOR [Non-Staff] - Time of Disposition: 10:39
[2024-09-21 07:37] VITALS: BP 131/66; PULSE 78; RESP 20; TEMP 36.7; O2SAT 98
--- OUTSIDE RECORDS SUMMARY | 2024-09-21 07:55 | XMS_ITS | Continuity of Care Document ---
Author Organization [facility] Address [address] [place] [address] [address] [place] [address] Phone Care Team Providers Care Energy And Conservation Technician Name Role Phone Omntenegro OD, Hermilo Unavailable Unavailable Procedures Procedure Date Eye Exam, New Patient Refraction Advance Directives Directive Yes / No Effective Date File Name No Information Encounters Encounter Description Practice Location Reason(s) For Visit Diagnoses Date Provider Providers Copied on Encounter [facility], [address] [place] [address] [address], [place], [place], [id number], [place] tel:[phone] [facility] No Information 7-200 9 Monten[place] OD Hermilo. [address] , [address], [place], [address], [place]. tel:[phone] Family History Family Member Type Diagnosis Age At Onset No Information Payers Payer name Insurance type Covered libertarian ID Authoriza tion(s) [employer] CI [id number] Social History Type Description Quantity Date [...]
--- OUTSIDE RECORDS SUMMARY | 2024-09-21 07:55 | XMS_ITS | Referral Summary ---
Author Organization [facility] Address [address] [place] [address] Care Team Providers Care Informatics Manager Name Role Phone Barry Ralph MD Primary Care Provider [phone] Rehan Sheth MD Unavailable [phone] Sangita Moore RN Unavailable [phone] Encounters Date Type Department Care Team Description 09/17/2024 SHOP/CHAP Subsequent Outreach [facility] [address] [place] [phone] Sangita Moore, RN 09/15/2024 SHOP/CHAP Initial Outreach [facility] [address] [place] [phone] Sangita Moore, RN 09/15/2024 Telephone [facility] Cardiology [address] [place] [address] 8th [place] [address] [place] [address] Rehan Sheth MD f/u orders 09/15/2024 SHOP/CHAP Initial Eligibility Review [facility] [address] [place] [address] Sangita Moore RN 09/11/2024 12:49 PM GLASS CLEANER - 09/14/2024 12:22 PM GLASS CLEANER Hospital Encounter [facility] [address] [place] [address] Joseph Lucas MD [place], MD Melissa King, Dalila Jean MD Chest pain, unspecified type (Primary Dx) Discharge Disposition: Discharge to home or self care 09/11/2024 Documentation [facility] Cardiology [address] [place] [address] Advanced Medicine 8th [place] [address] [place] [address] Rehan Sheth MD 09/11/[address] Advanced [facility] 8th [place] [address] [place] [address] Rehan Sheth MD Symptoms update 09/10/[address] [facility] 8th [place] [address] [place] [address] Rehan Sheth MD Cardiac Clearance request 09/10/2024 12:25 PM GLASS CLEANER Lab [facility] [address] [place] [phone] Chronic heart failure with preserved ejection fraction (CMS/HCC) (HCC) 09/10/2024 11:15 AM GLASS CLEANER Office Visit [address] 8th [place] [address] [place] [address] Rehan Sheth MD Chronic heart failure with preserved ejection fraction (CMS/HCC) (HCC) (Primary Dx); 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 8th [place] [address] [place] [phone] Rehan Sheth MD Samples/and report of ER eval 09/01/2024 Telephone [facility] Neurosurgery [facility] Office Building [address] [place] [address] Clayton Robertson DO 08/26/2024 11:32 AM GLASS CLEANER - 08/26/2024 11:59 PM GLASS CLEANER Hospital Encounter [facility] Radiology [address] [place] [address] [address] [place] [address] Lumbar spondylosis; Chronic bilateral low back pain, unspecified whether sciatica present Discharge Disposition: Discharge to home or self care 08/26/2024 12:30 PM GLASS CLEANER Office Visit [facility] Neurosurgery [address] [place] [address] Medical Office [facility] [address] [place] [address] Clayton Robertson DO 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) 08/06/2024 Orders Only [facility] Neurosurgery [address] [place] [address] Office Building [address] [place] [address] Clayton Robertson DO Lumbar spondylosis (Primary Dx); Chronic bilateral low back pain, unspecified whether sciatica present 07/04/2024 10:37 AM GLASS CLEANER - 07/04/2024 11:59 PM GLASS CLEANER Hospital Encounter [facility] [address] [place] [address] [address] [place] [address] Aleksander Shankar MD 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); Sacroiliac joint pain; Lumbar spondylosis Discharge Disposition: Discharge to home or self care 06/26/2024 Orders Only [facility] Cardiology [address] [place] [address] 8th [place] [address] [place] [phone] Naila Cortez, RN High risk medications (not anticoagulants) long-term use (Primary Dx) from Last 3 Months Allergies No known active allergies Medications albuterol HFA (PROVENTIL HFA,VENTOLIN HFA,PROAIR HFA) 90 mcg/actuation inhaler Inhale 2 puffs as needed for shortness of breath Active True Metrix Glucose Meter kit USE DIRECTED 1 kit Active lancets (OneTouch Delica Plus Lancet) 30 gauge miscIndications:Ty pe 2 diabetes mellitus with hyperosmolarity without coma, without long-term current use of insulin ([facility]) ([facility]) Use to check blood sugar 3x daily 300 each 2 Active blood glucose diagnostic (True Metrix Glucose Test Strip) stripIndications:T ype 2 diabetes mellitus with hyperosmolarity without coma, without long-term current use of insulin ([facility]) ([facility]) TEST BLOOD SUGAR EVERY DAY 100 [...] type 09/11/2024 Coronary artery disease invo lving port lions coronary artery of port lions heart with angina pectoris 09/10/2024 Internal carotid artery stenosis, right 06/12/20 Chronic heart failure with p reserved ejection fraction ([facility]/HCC) 06/12/2024 Stage 2 chronic kidney disease 06/12/2024 Thrombocytopenia 06/12/2024 Bilateral leg weakness 06/06/2024 NSTEMI (non-ST elevated myocardial infarction) ( [facility]/HCC) 05/20/2024 Assessment & Plan (05/21/2024 11:10 AM CDT): Repeat [facility] on 05/20/2024 showed: 60-70% lesion to mid LAD (with a positive IFR of 0.78) and a 90% lesion lesion to ostial circ; RCA with a known PULMONARY PHYSICIAN (angiography not performed). -s/p Successful PCI to [...] Plan (05/20/2024 11:34 AM CDT): Went to [facility] 05/17 for SOB, new 2L O2 requirement - OSH workup: Trp 1.95>5.1>10, proBNP 6800, CXR w/ mild interstitial edema - OSH [facility] 05/19 w/ L main widely patent, LAD proximal body 80% stenosis, LAD stent w/ moderate ISR, L cx w/ 95% stenosis in proximal body, OM branches w/ mild disease, RCA is PULMONARY PHYSICIAN in mid body w/ L to R collaterals - cath films uploaded - OSH TTE reportedly w/ EF 50%, AV prosthesis w/o abnormal gradients - trop here 7,1602, repeat pending - currently denies chest pain or pressure, sob improving - PCI today - continue heparin drip - continue asa, coreg, atorvastatin 80mg - telemetry Assessment & Plan (05/20/2024 1:02 AM CDT): Went to [facility] 05/17 for SOB, new 2L O2 requirement - OSH workup: Trp 1.95>5.1>10, proBNP 6800, CXR w/ mild interstitial edema - OSH [facility] 05/19 w/ L main widely patent, LAD proximal body 80% stenosis, LAD stent w/ moderate ISR, L cx w/ 95% stenosis in proximal body, OM branches w/ mild disease, RCA is PULMONARY PHYSICIAN in mid body w/ L to R [...] & Plan (05/21/2024 10:58 AM CDT): P/t [facility] 05/17 for SOB, on 3.5L now [...] & Plan (05/20/2024 11:50 AM CDT): P/t [facility] 05/17 for SOB, on 3.5L now [...] & Plan (05/20/2024 1:00 AM CDT): P/t [facility] 05/17 for SOB, on 2L now [...] salt diet Acute on chronic heart failure ([facility]) 024 Assessment & Plan (05/21/2024 10:56 [...] benefi Assessment & Plan (07/04/2024 1:02 PM GLASS CLEANER): He may just be symptomatic from his [...] Assessment & Plan (03/17/2024 1:48 PM CDT): Camera Repairer stenosis and 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 Still [...] stenosis. Assessment & Plan (07/04/2024 1:03 PM GLASS CLEANER): Failed LMBB. Assessment & Plan (04/23/2024 5:41 [...] Encounter for Medicare annual wellness exam 05/20 nursing home (current) use of anticoagulants [Z79.0 1] 03/27/2018 Atrial fibrillation ([facility]) [I48.91] 8 Overview (09/04/2018): Dr. Sheth [...] quiescent Assessment & Plan (09/04/2018 10:33 AM GLASS CLEANER): COPD is unchanged. COPD information handout given. [...] to PT - wants to go to [facility]. Trial robaxin. Flexeril on med list [...] no Assessment & Plan (10/01/2019 10:35 AM GLASS CLEANER): S2 makes a wonderfully crisp snap w/o any regurge Gastroesophageal reflux disease 09/17/2014 Tussive syncope 08/25/2014 Syncope and collapse 08/21/2014 Syncope 08/21/2014 Type 2 diabetes mellitus 07/10/2014 Overview (05/13/2021): Was on levemir but stopped 2015 then on trulicity so on metformin ALONE We had better control w/ Jardiance -since he has been w/ Dr Stockton [phone] has been on Actose and metformin- Off [...] 9:28 AM CDT): Chronic. Maintains on glipizide, Mounkumarro at home with plan to hold these [...] heart- Assessment & Plan (10/01/2019 10:30 AM GLASS CLEANER): His A1C has crept to 7.5% Admits [...] covered Assessment & Plan (09/04/2018 10:42 AM GLASS CLEANER): Diabetes is worsening. Continue current treatment regimen. Reminded to bring in blood sugar diary at next visit. Dietary recommendations for ADA diet. Regular aerobic exercise. Discussed foot care. Reminded to get yearly retinal exam. Diabetes will be reassessed in 3 months. Given his financial concerns my advice is to use food as Mamaya medicine Obesity with body mass index 30 or greater 07/09 Generalized anxiety disorder 07/09/2014 Assessment & Plan (10/01/2019 10:32 AM GLASS CLEANER): He gets along nicely w/ a low [...] A virus 07/27/2017 02/22/2018 Paroxysmal atrial fibrillation ([facility]) 07/02/2017 09/04/2018 Overview (02/22/2018): Was on NOAC [...] Tobacco: Never Tobacco Cessation:Counseling Given: Not Answered [facility] [employer] Answer Date Recorded In the past 12 months has Pythian, gas, oil, or water Mentor Me threatened to shut off services in your [...] How often do you attend chur or roman catholic services? More than 4 times per year 09/15/2024 Do you belong to any clubs o r organizations such as yarsani groups, unions, fraternal or athletic groups, or [...] Date Recorded PHQ-2 Total Score 0 09/12/2024 [facility] - [...] place to sleep or slept in a care home (including now)? No 01/01/2024 Housing Stability Vital Sign Answer Deangelo e Recorded In the last 12 months, was t here a time when you were not able to pay the mortgage or rent on time? No 09/15/2024 In the past 12 months, how m any times have you moved where you were living? 1 09/15/2024 At any time in the past 12 m [facility], were you homeless or living in a care home (including now)? No 09/15/2024 Personal Safety Answer Date Recorded Have you ever been in or are you currently in a harmful physical or emotional relationship or is someone making you feel afraid or unsafe? Denies 09/11/2024 Sex and Gender Information Value Date Recorded Sex Assigned at Not on file Legal Sex Male 8:23 PM GLASS CLEANER Gender Identity Not on file Sexual Orientation Not on file Last Filed Vital Signs Vital Sign Reading Time Taken Comments Blood Pressure 133/57 09/14/2024 7:33 AM GLASS CLEANER Pulse 64 09/14/2024 7:33 AM GLASS CLEANER Temperature 36.8 ??C (98.2 ??F) 09/14/2024 7:33 AM CS T Respiratory Rate 18 09/14/2024 7:33 AM GLASS CLEANER Oxygen Saturation 95% 09/14/2024 7:33 AM GLASS CLEANER Inhaled Oxygen Concentration - - Weight 100.6 kg (221 lb 12.8 oz) 09/14/2024 4:49 AM GLASS CLEANER Height 182.9 cm (6') 09/11/2024 4:35 PM GLASS CLEANER Body Mass Index 30.08 09/11/2024 4:35 PM GLASS CLEANER Plan of Treatment Not on file Goals Goal Patient Goal Type Associated Problems Recent Progress Patient-Stated? Author CCM Chronic Pain Care Plan Chronic Care Management Improving( 10:49 AM GLASS CLEANER) Nenita Sanchez, TIM Note: Problem: Chronic Pain [...] Care Plan Initial Follow-Up Appointment Sangita Sylvester, TIM Note: Pt has an appointment with PCP [...] and vomiting. Medical Devices Implanted Type Area Alodize Machine Helper Device Identifier Shelf Expiration Date Model / Serial / Lot [employer] Branden Angio-Seal Vip Bondek-Plus 8fr .038in 70cm Hemostatic Latex Free [id number] - [id number] - [id number] Implanted:Qty : 1 on 05/20/2024 by Papo Rascon MD at [facility] Collagen Right: Common Femoral Artery [employer] Branden 12/10/2024 [id number] / [id number] / [id number] Prosthetic Valve Prosthetic Valve Heart Description:Heart Valve Medtronic Card Vasc Surgery 4.0 X 12mm Shar Will Rx Coronary Stent [id number] - [id number] Implanted:Qty : 1 on 05/20/2024 by Vitor Pedroza MD at [facility] Stent N/A: Circumflex Coronary Artery Medtronic Card Vasc Surgery 01/11/2027 [id number] / [id number] / [id number] Medtronic Card Vasc Surgery 4.0 X 12mm Holland Patent Will Rx Coronary Stent [id number] - [id number] Implanted:Qty : 1 on 05/20/2024 by Vitor Pedroza MD at [facility] Stent Left: Anterior Descending Cornary Artery Medtronic Card Vasc Surgery 11/14/2026 [id number] / [id number] / [id number] Procedures Procedure Name Priority Date/Time Associated Diagnosis Comments EGFR STAT 09/14/2024 8:23 AM GLASS CLEANER BASIC METABOLIC PANEL STAT 09/14/2024 8:23 AM GLASS CLEANER EGFR Routine 09/13/2024 9:57 PM GLASS CLEANER CBC WITHOUT DIFFERENTIAL Routine 09/13/2024 9:57 PM GLASS CLEANER MAGNESIUM Routine 09/13/2024 9:57 PM GLASS CLEANER BASIC METABOLIC PANEL Routine 09/13/2024 9:57 PM GLASS CLEANER EGFR Routine 09/12/2024 8:13 PM GLASS CLEANER CBC WITHOUT DIFFERENTIAL Routine 09/12/2024 8:13 PM GLASS CLEANER MAGNESIUM Routine 09/12/2024 8:13 PM GLASS CLEANER BASIC METABOLIC PANEL Routine 09/12/2024 8:13 PM GLASS CLEANER SODIUM, URINE, RANDOM Routine 09/12/2024 12:36 PM GLASS CLEANER POCT GLUCOSE DEVICE Routine 09/12/2024 7 :52 AM GLASS CLEANER POCT GLUCOSE DEVICE Routine 09/12/2024 6 :21 AM GLASS CLEANER POCT GLUCOSE DEVICE Routine 09/12/2024 2 :15 AM GLASS CLEANER EGFR Routine 09/11/2024 11:44 PM GLASS CLEANER CBC WITHOUT DIFFERENTIAL Routine 09/11/2024 11:44 PM GLASS CLEANER MAGNESIUM Routine 09/11/2024 11:44 PM GLASS CLEANER BASIC METABOLIC PANEL Routine 09/11/2024 11:44 PM GLASS CLEANER POCT GLUCOSE DEVICE Routine 09/11/2024 8 :14 PM GLASS CLEANER POCT GLUCOSE DEVICE Routine 09/11/2024 5 :23 PM GLASS CLEANER TROPONIN I HIGH-SENSITIVITY 4-HOUR Timed 09/11/2024 3:10 PM GLASS CLEANER POCUS CARDIAC 09/11/2024 1:58 PM GLASS CLEANER PRO B-TYPE NATRIURETIC PEPTIDE STAT 09/11/2024 1:30 PM GLASS CLEANER TROPONIN I HIGH-SENSITIVITY 2-HOUR Timed 09/11/2024 1:30 PM GLASS CLEANER XR CHEST PA LATERAL 2 VIEWS ED 09/11/2024 11:13 AM GLASS CLEANER EGFR STAT 09/11/2024 11:03 AM GLASS CLEANER DIFFERENTIAL AUTO STAT 09/11/2024 11: 03 AM GLASS CLEANER TROPONIN I HIGH-SENSITIVITY SERIES (BASELINE, 2HR, 4HR, 6HR) STAT 09/11/2024 11:03 AM GLASS CLEANER COMPREHENSIVE METABOLIC PANEL STAT 09/11/2024 11:03 AM GLASS CLEANER CBC WITH AUTO DIFFERENTIAL STAT 09/11/2024 11:03 AM GLASS CLEANER ECG 12-LEAD STAT 09/11/2024 10:52 AM GLASS CLEANER POCT GLUCOSE DEVICE Routine 09/11/2024 1 0:48 AM GLASS CLEANER EGFR Routine 09/10/2024 12:26 PM GLASS CLEANER Chronic heart failure with preserved ejection fraction (CMS/HCC) (HCC) PRO B-TYPE NATRIURETIC PEPTIDE Routine 09/10/2024 12:26 PM GLASS CLEANER Chronic heart failure with preserved ejection fraction (CMS/HCC) (HCC) BASIC METABOLIC PANEL Routine 09/10/2024 12:26 PM GLASS CLEANER Chronic heart failure with preserved ejection fraction (CMS/HCC) (HCC) ECG 12-LEAD Routine 09/10/2024 11:33 AM GLASS CLEANER Chronic heart failure with preserved ejection fraction (CMS/HCC) (HCC) XR SCOLIOSIS AP LAT Schedule Routine, Read Routine (OP Routine) 08/26/2024 11:42 AM GLASS CLEANER Lumbar spondylosis Chronic bilateral low back pain, unspecified whether sciatica present BASIC METABOLIC PANEL Routine 07/30/2024 12:37 PM GLASS CLEANER High risk medications (not anticoagulants) long-term use BASIC METABOLIC PANEL Routine 07/16/2024 11:34 AM GLASS CLEANER High risk medications (not anticoagulants) long-term use BASIC METABOLIC PANEL Routine 06/24/2024 10:29 AM GLASS CLEANER Acute on chronic systolic heart failure (HCC) HEMOGLOBIN A1C Routine 06/07/2024 8:38 AM CDT LIPID PANEL Routine 06/07/2024 8:38 AM CDT DIABETES FOOT EXAM Routine 11/05/2020 DIABETES EYE EXAM Routine 05/05/2019 from Last 3 Months or Most Recently Relevant to Health Maintenance Results * eGFR (09/14/2024 8:23 AM GLASS CLEANER) eGFR 63 >=60 mL/min/1. 73 m2 Comment: [...] last reviewed 2021. Blood 09/14/2024 8:23 AM GLASS CLEANER 09/14/2024 8:45 AM GLASS CLEANER us Dalila Torres MD LAB BLOOD ORDERABLES Fi nal Result [facility] [place] [address] * (ABNORMAL) Basic metabolic panel (09/14/2024 8:23 AM GLASS CLEANER) Sodium 140 135 - 145 mmol/L Potassium, pl 4.0 3.3 - 4.9 mmol/L [facility] Chloride 104 97 - 110 mmol/L [facility] CO2 27 22 - 32 mmol/L [facility] Anion gap 9 2 - 15 mmol/L [facility] BUN 28(H) 6 - 25 mg/dL [facility] Creatinine 1.14 0.80 - 1.30 mg/dL [facility] Glucose 108 70 - 199 mg/dL [facility] Comment: Interpretive Data Fasting glucose >/= [...] 2022. Calcium 8.8 8.5 - 10.3 mg/dL [facility] Blood 09/14/2024 8:23 AM GLASS CLEANER 09/14/2024 8:45 AM GLASS CLEANER us Dalila Torres MD LAB BLOOD ORDERABLES Fi nal Result Performing Organization Address [facility] Co de Phone Number [facility] [place] [address] * (ABNORMAL) eGFR (09/13/2024 9:57 PM GLASS CLEANER) eGFR 49(L) >=60 mL/min/1. 73 m2 Comment: [...] last reviewed 2021. Blood 09/13/2024 9:57 PM GLASS CLEANER 09/13/2024 10:27 PM GLASS CLEANER us Dalila Torres MD LAB BLOOD ORDERABLES Fi nal Result Performing Organization Address [facility] Co de Phone Number ORA ANDERSON [facility] [place] [address] * (ABNORMAL) CBC without differential (09/13/2024 9:57 PM GLASS CLEANER) [facility] WBC 6.4 3.8 - 9.9 K/cumm Hgb 11.1(L) 13.0 - 17.5 g/dL [facility] Hct 33.4(L) 38.9 - 50.3 % [facility] Plt 152 150 - 400 K/cumm [facility] MPV 11.2 9.1 - 12.3 fL [facility] RBC 3.53(L) 4.30 - 5.80 M/cumm [facility] MCV 94.6 81.3 - 96.4 fL [facility] MCH 31.4 27.1 - 33.3 pg [facility] MCHC 33.2 32.3 - 35.7 g/dL [facility] RDW CV 14.9 11.1 - 14.9 % [facility] RDW SD 52.3(H) 35.7 - 48.1 fL [facility] NRBC abs 0.00 0.00 - 0.01 K/cumm [facility] Blood 09/13/2024 9:57 PM GLASS CLEANER 09/13/2024 10:27 PM GLASS CLEANER us Dalila Torres MD LAB BLOOD ORDERABLES Fi nal Result Performing Organization Address City/[facility]/ZIP Co de Phone Number [facility] [place] [address] * Magnesium (09/13/2024 9:57 PM GLASS CLEANER) [facility] Magnesium 2.1 1.4 - 2.5 mg/dL Blood 09/13/2024 9:57 PM GLASS CLEANER 09/13/2024 10:27 PM GLASS CLEANER Dalila Torres MD LAB BLOOD ORDERABLES Fi nal Result [facility] [place] [address] * (ABNORMAL) Basic metabolic panel (09/13/2024 9:57 PM GLASS CLEANER) Pathologist [facility] Sodium 139 135 - 145 mmol/L Potassium, pl 3.7 3.3 - 4.9 mmol/L [facility] Chloride 102 97 - 110 mmol/L [facility] CO2 28 22 - 32 mmol/L [facility] Anion gap 9 2 - 15 mmol/L [facility] BUN 35(H) 6 - 25 mg/dL [facility] Creatinine 1.41(H) 0.80 - 1.30 mg/dL [facility] Glucose 126 70 - 199 mg/dL [facility] Comment: Interpretive Data Fasting glucose >/= [...] 2022. Calcium 8.7 8.5 - 10.3 mg/dL [facility] Blood 09/13/2024 9:57 PM GLASS CLEANER 09/13/2024 10:27 PM GLASS CLEANER us Dalila Torres MD LAB BLOOD ORDERABLES Fi nal Result [facility] [place] [address] * (ABNORMAL) eGFR (09/12/2024 8:13 PM GLASS CLEANER) [facility] eGFR 51(L) >=60 mL/min/1. 73 m2 [...] last reviewed 2021. Blood 09/12/2024 8:13 PM GLASS CLEANER 09/12/2024 8:55 PM GLASS CLEANER us Dalila Torres MD LAB BLOOD ORDERABLES Fi nal Result [facility] [place] [address] * (ABNORMAL) CBC without differential (09/12/2024 8:13 PM GLASS CLEANER) WBC 7.4 3.8 - 9.9 K/cumm Hgb 11.0(L) 13.0 - 17.5 g/dL [facility] Hct 33.7(L) 38.9 - 50.3 % [facility] Plt 181 150 - 400 K/cumm [facility] MPV 11.1 9.1 - 12.3 fL [facility] RBC 3.60(L) 4.30 - 5.80 M/cumm [facility] MCV 93.6 81.3 - 96.4 fL [facility] MCH 30.6 27.1 - 33.3 pg [facility] MCHC 32.6 32.3 - 35.7 g/dL [facility] RDW CV 14.8 11.1 - 14.9 % [facility] RDW SD 51.2(H) 35.7 - 48.1 fL [facility] NRBC abs 0.00 0.00 - 0.01 K/cumm [facility] Blood 09/12/2024 8:13 PM GLASS CLEANER 09/12/2024 8:54 PM GLASS CLEANER Dalila Torres MD LAB BLOOD ORDERABLES Fi nal Result [facility] [place] [address] * Magnesium (09/12/2024 8:13 PM GLASS CLEANER) [facility] Magnesium 2.0 1.4 - 2.5 mg/dL Blood 09/12/2024 8:13 PM GLASS CLEANER 09/12/2024 8:55 PM GLASS CLEANER us Dalila Torres MD LAB BLOOD ORDERABLES Fi nal Result Performing Organization Address City/[facility] Co de Phone Number [facility] [place] [address] * (ABNORMAL) Basic metabolic panel (09/12/2024 8:13 PM GLASS CLEANER) [facility] Sodium 141 135 - 145 mmol/L Potassium, pl 3.8 3.3 - 4.9 mmol/L [facility] Chloride 106 97 - 110 mmol/L [facility] CO2 26 22 - 32 mmol/L [facility] Anion gap 9 2 - 15 mmol/L [facility] BUN 31(H) 6 - 25 mg/dL [facility] Creatinine 1.37(H) 0.80 - 1.30 mg/dL [facility] Glucose 102 70 - 199 mg/dL [facility] Comment: Interpretive Data Fasting glucose >/= [...] 2022. Calcium 8.4(L) 8.5 - 10.3 mg/dL [facility] Blood 09/12/2024 8:13 PM GLASS CLEANER 09/12/2024 8:55 PM GLASS CLEANER Dalila Torres MD LAB BLOOD ORDERABLES Fi nal Result Performing Organization Address [facility] de Phone Number [facility] Department [place] [address] * Sodium, urine, random (09/12/2024 12:36 PM GLASS CLEANER) Sodium, ur 72 mmol/L Comment: Interpretive Data No reference range established. Current interpretive data was last revised 2018. Urine 09/12/2024 12:3 6 PM GLASS CLEANER 09/12/2024 4:22 PM GLASS CLEANER Dalila Torres MD LAB URINE ORDERABLES Fi nal Result Performing Organization Address [facility] de Phone Number [facility] [place] [address] * POCT glucose (09/12/2024 7:52 AM GLASS CLEANER) Glucose, POC 103 70 - 199 mg/dL Blood 09/12/2024 7:52 AM GLASS CLEANER 09/12/2024 7:52 AM GLASS CLEANER Dalila Torres MD LAB POCT ORDERABLES - D EVICE Final Result Performing Organization Address [facility] de Phone Number [facility] [place] [address] * POCT glucose (09/12/2024 6:21 AM GLASS CLEANER) [facility] Glucose, POC 92 70 - 199 mg/dL Blood 09/12/2024 6:21 AM GLASS CLEANER 09/12/2024 6:21 AM GLASS CLEANER us Dalila Torres MD LAB POCT ORDERABLES - D EVICE Final Result Performing Organization Address [facility] [place] [address] * POCT glucose (09/12/2024 2:15 AM GLASS CLEANER) [facility] Glucose, POC 178 70 - 199 mg/dL Blood 09/12/2024 2:15 AM GLASS CLEANER 09/12/2024 2:15 AM GLASS CLEANER Dalila Torres MD LAB POCT ORDERABLES - D EVICE Final Result Performing Organization Address [facility] de Phone Number [facility] [place] [address] * (ABNORMAL) eGFR (09/11/2024 11:44 PM GLASS CLEANER) [facility] eGFR 54(L) >=60 mL/min/1. 73 m2 Comment: [...] reviewed 2021. Blood 09/11/2024 11:4 4 PM GLASS CLEANER 09/12/2024 12:17 AM GLASS CLEANER us Dalila Torres MD LAB BLOOD ORDERABLES Fi nal Result [facility] [place] [address] * (ABNORMAL) CBC without differential (09/11/2024 11:44 PM GLASS CLEANER) Pathologist [facility] WBC 7.1 3.8 - 9.9 K/cumm Hgb 11.5(L) 13.0 - 17.5 g/dL [facility] Hct 34.7(L) 38.9 - 50.3 % [facility] Plt 172 150 - 400 K/cumm [facility] MPV 10.9 9.1 - 12.3 fL [facility] RBC 3.70(L) 4.30 - 5.80 M/cumm [facility] MCV 93.8 81.3 - 96.4 fL [facility] MCH 31.1 27.1 - 33.3 pg [facility] MCHC 33.1 32.3 - 35.7 g/dL [facility] RDW CV 14.9 11.1 - 14.9 % [facility] RDW SD 51.1(H) 35.7 - 48.1 fL [facility] NRBC abs 0.00 0.00 - 0.01 K/cumm [facility] Blood 09/11/2024 11:4 4 PM GLASS CLEANER 09/12/2024 12:17 AM GLASS CLEANER Dalila Torres MD LAB BLOOD ORDERABLES Fi nal Result Performing Organization Address City/[facility] Co de Phone Number [facility] [place] [address] * Magnesium (09/11/2024 11:44 PM GLASS CLEANER) [facility] Magnesium 2.1 1.4 - 2.5 mg/dL Blood 09/11/2024 11:4 4 PM GLASS CLEANER 09/12/2024 12:17 AM GLASS CLEANER Dalila Torres MD LAB BLOOD ORDERABLES Fi nal Result Performing Organization Address [facility] de Phone Number [facility] [place] [address] * (ABNORMAL) Basic metabolic panel (09/11/2024 11:44 PM GLASS CLEANER) [facility] Sodium 142 135 - 145 mmol/L Potassium, pl 3.5 3.3 - 4.9 mmol/L [facility] Chloride 104 97 - 110 mmol/L [facility] CO2 27 22 - 32 mmol/L [facility] Anion gap 11 2 - 15 mmol/L [facility] BUN 30(H) 6 - 25 mg/dL [facility] Creatinine 1.30 0.80 - 1.30 mg/dL [facility] Glucose 74 70 - 199 mg/dL [facility] Comment: Interpretive Data Fasting glucose >/= [...] 2022. Calcium 8.8 8.5 - 10.3 mg/dL [facility] Blood 09/11/2024 11:4 4 PM GLASS CLEANER 09/12/2024 12:17 AM GLASS CLEANER us Dalila Torres MD LAB BLOOD ORDERABLES Fi nal Result Performing Organization Address [facility] Co de Phone Number [facility] [place] [address] * POCT glucose (09/11/2024 8:14 PM GLASS CLEANER) Glucose, POC 142 70 - 199 mg/dL Blood 09/11/2024 8:14 PM GLASS CLEANER 09/11/2024 8:14 PM GLASS CLEANER us Dalila Torres MD LAB POCT ORDERABLES - D EVICE Final Result Performing Organization Address [facility] de Phone Number [facility] [place] [address] * POCT glucose (09/11/2024 5:23 PM GLASS CLEANER) Glucose, POC 91 70 - 199 mg/dL Blood 09/11/2024 5:23 PM GLASS CLEANER 09/11/2024 5:[address] us [address] Tai MD LAB POCT ORDERABLES - DEVICE Final Result Performing Organization Address [facility] Co de Phone Number [facility] [place] [address] * Troponin I high-sensitivity 4-hour (09/11/2024 3:10 PM GLASS CLEANER) Trop I hs 13 <=35 ng/L Comment: Interpretive Data For further hscTnI resources including the diagnostic algorithm and an aid in interpretation, copy and paste this link: https://bjhlab.testcatalog.org/show/hsTrop-1 Current Interpretive Data last revised 2020. Trop I hs delta -1 ng/L ROA LAI Trop I hs interp Insignificant ORA BJ Blood 09/11/2024 3:10 PM GLASS CLEANER 09/11/2024 3:22 PM GLASS CLEANER us Ricki Ramirez MD LAB BLOOD ORDERABLES Final Result [facility] [place] [address] * POCUS Cardiac (09/11/2024 1:58 PM GLASS CLEANER) Anatomical Region Laterality Modality Other 09/11/2024 1:28 PM GLASS CLEANER Narrative 09/11/2024 3:02 PM GLASS CLEANER Performed by: Jose Martin Guevara Cardiac: ?Exam [...] Troponin I high-sensitivity 2-hour (09/11/2024 1:30 PM GLASS CLEANER) Trop I hs 14 <=35 ng/L Comment: Interpretive Data For further hscTnI resources including the diagnostic algorithm and an aid in interpretation, copy and paste this link: https://bjhlab.testcatalog.org/show/hsTrop-1 Current Interpretive Data last revised 2020. Trop I hs delta 0 ng/L ORA LAI Trop I hs interp Insignificant ORA Golden Blood 09/11/2024 1:30 PM GLASS CLEANER 09/11/2024 2:03 PM GLASS CLEANER us Ricki Ramirez MD LAB BLOOD ORDERABLES Final Result [facility] [place] [address] * (ABNORMAL) Pro B-type natriuretic peptide (09/11/2024 1:30 PM GLASS CLEANER) NT-proBNP 1,193(H) <=450 pg/mL Comment: Interpretive Comments: [...] Revised Date: 2018. Blood 09/11/2024 1:30 PM GLASS CLEANER 09/11/2024 2:[address] De Leon MD LAB BLOOD ORDERABLES Final Result [facility] [place] [address] * XR Chest Pa Lateral 2 Views (09/11/2024 11:13 AM GLASS CLEANER) Anatomical Region Laterality Modality Body, Chest N/A Computed Radiogr aphy 09/11/2024 11:4 4 AM GLASS CLEANER Impressions 09/11/2024 11:44 AM GLASS CLEANER Comparison to 12/21/2023. 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 Heart and mediastinum are unchanged. There is no pneumothorax or pleural effusion. Small lung volumes with scarring in the left midlung that is similar to the prior CT. No new focal pulmonary opacity. Electronically signed by: Eric Balbuena M.D. Narrative 09/11/2024 11:44 AM GLASS CLEANER EXAMINATION: 2 view chest radiograph Procedure Note [...] (baseline, 2hr, 4hr, 6hr) (09/11/2024 11:03 AM GLASS CLEANER) Trop I hs 14 <=35 ng/L Comment: Interpretive Data For further hscTnI resources including the diagnostic algorithm and an aid in interpretation, copy and paste this link: https://bjhlab.testcatalog.org/show/hsTrop-1 Current Interpretive Data last revised 2020. Blood 09/11/2024 11:0 3 AM GLASS CLEANER 09/11/2024 11:20 AM GLASS CLEANER us Joseph Lucas MD LAB BLOOD ORDERABLES Shanna pam Result [facility] [place] [address] * (ABNORMAL) eGFR (09/11/2024 11:03 AM GLASS CLEANER) eGFR 49(L) >=60 mL/min/1. 73 m2 Comment: [...] reviewed 2021. Blood 09/11/2024 11:0 3 AM GLASS CLEANER 09/11/2024 11:20 AM GLASS CLEANER us Joseph Lucas MD LAB BLOOD ORDERABLES Shanna orozco Result [facility] [place] [address] * Differential, auto (09/11/2024 11:03 AM GLASS CLEANER) Neutrophil abs 4.9 1.5 - 6.5 K/cumm Imm gran abs 0.0 0.0 - 0.1 K/cumm [facility] Lymphocyte abs 1.4 0.8 - 3.3 K/cumm [facility] Monocyte abs 0.7 0.2 - 0.8 K/cumm [facility] Eosinophil abs 0.1 0.0 - 0.5 K/cumm [facility] Basophil abs 0.0 0.0 - 0.1 K/cumm [facility] Neutrophil pct 67.9 % [facility] Comment: Interpretive Data Percent cell count reference ranges are not reported, since discordance with absolute values may lead to misinterpretation of CBC data. Current Interpretive Data was last revised on 2017. Imm gran pct 0.4 % [facility] Comment: Interpretive Data Percent cell count reference ranges are not reported, since discordance with absolute values may lead to misinterpretation of CBC data. Current Interpretive Data was last revised on 2017. Lymphocyte pct 19.8 % [facility] Comment: Interpretive Data Percent cell count reference ranges are not reported, since discordance with absolute values may lead to misinterpretation of CBC data. Current Interpretive Data was last revised on 2017. Monocyte pct 9.6 % [facility] Comment: Interpretive Data Percent cell count reference ranges are not reported, since discordance with absolute values may lead to misinterpretation of CBC data. Current Interpretive Data was last revised on 2017. Eosinophil pct 1.9 % [facility] Comment: Interpretive Data Percent cell count reference ranges are not reported, since discordance with absolute values may lead to misinterpretation of CBC data. Current Interpretive Data was last revised on 2017. Basophil pct 0.4 % [facility] Comment: Interpretive Data Percent cell count reference ranges are not reported, since discordance with absolute values may lead to misinterpretation of CBC data. Current Interpretive Data was last revised on 2017. Blood 09/11/2024 11:0 3 AM GLASS CLEANER 09/11/2024 11:20 AM GLASS CLEANER Joseph Lucas MD LAB BLOOD ORDERABLES Shanna l Result Performing Organization Address [facility] Co de Phone Number [facility] [place] [address] * (ABNORMAL) CBC with auto differential (09/11/2024 11:03 AM GLASS CLEANER) WBC 7.3 3.8 - 9.9 K/cumm Hgb 11.0(L) 13.0 - 17.5 g/dL [facility] Hct 33.2(L) 38.9 - 50.3 % [facility] Plt 175 150 - 400 K/cumm [facility] MPV 10.6 9.1 - 12.3 fL [facility] RBC 3.51(L) 4.30 - 5.80 M/cumm [facility] MCV 94.6 81.3 - 96.4 fL [facility] MCH 31.3 27.1 - 33.3 pg [facility] MCHC 33.1 32.3 - 35.7 g/dL [facility] RDW CV 14.9 11.1 - 14.9 % [facility] RDW SD 51.4(H) 35.7 - 48.1 fL [facility] NRBC abs 0.00 0.00 - 0.01 K/cumm [facility] Blood (Blood, Venous) 09/11/2024 11:03 AM GLASS CLEANER 09/11/2024 11:20 AM GLASS CLEANER Joseph Lucas MD LAB BLOOD ORDERABLES Shanna l Result Performing Organization Address [facility]/ZIP Co de Phone Number [facility] [place] [address] * (ABNORMAL) Comprehensive metabolic panel (09/11/2024 11:03 AM GLASS CLEANER) Sodium 142 135 - 145 mmol/L Potassium, pl 3.6 3.3 - 4.9 mmol/L [facility] Chloride 102 97 - 110 mmol/L [facility] CO2 28 22 - 32 mmol/L [facility] Anion gap 12 2 - 15 mmol/L [facility] BUN 33(H) 6 - 25 mg/dL [facility] Creatinine 1.40(H) 0.80 - 1.30 mg/dL [facility] Glucose 114 70 - 199 mg/dL [facility] Comment: Interpretive Data Fasting glucose >/= [...] 2022. Calcium 8.9 8.5 - 10.3 mg/dL [facility] Bilirubin, total 0.4 0.1 - 1.2 mg/dL [facility] Protein, pl 6.9 6.5 - 8.5 g/dL [facility] Albumin 3.9 3.5 - 5.0 g/dL [facility] Alk phos 43 40 - 130 Units/L [facility] ALT 13 7 - 55 Units/L [facility] AST 24 10 - 50 Units/L [facility] Blood 09/11/2024 11:0 3 AM GLASS CLEANER 09/11/2024 11:20 AM GLASS CLEANER us Joseph Lucas MD LAB BLOOD ORDERABLES Shanna l Result [facility] [place] [address] * ECG 12-LEAD (09/11/2024 10:52 AM GLASS CLEANER) Narrative [facility] - 09/11/2024 10:52 AM GLASS CLEANER Hermilo Linares MD ? 09/11/2024 10:55 AM [...] in the ED Hermilo Linares MD 09/11/24 [id number] us Joseph Lucas MD ECG ORDERABLES Final Res ult [facility] * POCT glucose (09/11/2024 10:48 AM GLASS CLEANER) Glucose, POC 112 70 - 199 mg/dL Blood 09/11/2024 10:4 8 AM GLASS CLEANER 09/11/2024 10:48 AM GLASS CLEANER us Notinfile Unknown LAB POCT ORDERABLES - DEVICE F inal Result Performing Organization Address [facility] Co de Phone Number [facility] [place] [address] * (ABNORMAL) eGFR (09/10/2024 12:26 PM GLASS CLEANER) eGFR 54(L) >=60 mL/min/1. 73 m2 Comment: [...] reviewed 2021. Blood 09/10/2024 12:2 6 PM GLASS CLEANER 09/10/2024 1:37 PM GLASS CLEANER us Rehan Sheth MD LAB BLOOD ORDERABLES F inal Result Performing Organization Address [facility] Co de Phone Number [facility] Grewal [facility] [place] [address] * (ABNORMAL) Pro B-type natriuretic peptide (09/10/2024 12:26 PM GLASS CLEANER) NT-proBNP 2,273(H) <=450 pg/mL Comment: Interpretive Comments: [...] Heart J. 2006:27:330-337. 2. Cortez LEIVA, Jonathon AM. J. AM Renato Cardiol: Cardiovasc Imag. 2009;2: 216- 225. Interpretive Data Last Revised Date: 2018. Blood 09/10/2024 12:2 6 PM GLASS CLEANER 09/10/2024 1:32 PM GLASS CLEANER Rehan Sheth MD LAB BLOOD ORDERABLES F inal Result Performing Organization Address [facility]/ZIP Co de Phone Number [facility] [place] [address] * (ABNORMAL) Basic metabolic panel (09/10/2024 12:26 PM GLASS CLEANER) [facility] Sodium 142 135 - 145 mmol/L Potassium, pl 3.9 3.3 - 4.9 mmol/L [facility] Chloride 104 97 - 110 mmol/L [facility] CO2 28 22 - 32 mmol/L [facility] Anion gap 10 2 - 15 mmol/L [facility] BUN 31(H) 6 - 25 mg/dL [facility] Creatinine 1.29 0.80 - 1.30 mg/dL [facility] Glucose 126 70 - 199 mg/dL [facility] Comment: Interpretive Data Fasting glucose >/= [...] 2022. Calcium 9.2 8.5 - 10.3 mg/dL [facility] Blood 09/10/2024 12:2 6 PM GLASS CLEANER 09/10/2024 1:32 PM GLASS CLEANER Rehan Sheth MD LAB BLOOD ORDERABLES F inal Result Performing Organization Address [facility] Co de Phone Number [facility] [place] [address] * ECG 12 lead (09/10/2024 11:33 AM GLASS CLEANER) us Rehan Sheth MD ECG ORDERABLES Edited Result - Final * XR Scoliosis Ap and Lateral (08/26/2024 11:42 AM GLASS CLEANER) Anatomical Region Laterality Modality Spine N/A Computed Radiogr aphy 08/26/2024 12:3 0 PM GLASS CLEANER Impressions 08/26/2024 12:30 PM GLASS CLEANER 1. ??Mild thoracolumbar curvature with leftward coronal and anterior sagittal imbalance Electronically signed by: Mehran Sotomayor MD Narrative 08/26/2024 12:30 PM GLASS CLEANER EXAMINATION: XR SCOLIOSIS AP AND LATERAL HISTORY: ??Lumbar spondylosis FINDINGS: Standing frontal and lateral radiographs of the entire spine and lower extremities were obtained using the EOS system. ??Comparison is made to prior radiographs for 192. [...] (ABNORMAL) Basic metabolic panel (07/30/2024 12:37 PM GLASS CLEANER) Glucose 143(H) 65 - 99 mg/dL [facility] Comment: ? Fasting reference interval For someone without known diabetes, a glucose value >125 mg/dL indicates that they may have diabetes and this should be confirmed with a follow-up test. BUN 22 7 - 25 mg/dL [facility] Creatinine 1.04 0.70 - 1.22 mg/dL [facility] eGFR 71 > OR = 60 mL/min/1.7 3m2 [facility] BUN/creat ratio SEE NOTE: 6 22 (calc) [facility] Comment: ?? Not Reported: BUN and Creatinine are within ?? reference range. ? Sodium 141 135 - 146 mmol/L [facility] Potassium, pl 4.2 3.5 - 5.3 mmol/L [facility] Chloride 103 98 - 110 mmol/L [facility] CO2 30 20 - 32 mmol/L [facility] Calcium 8.9 8.6 - 10.3 mg/dL [facility] Blood 07/30/2024 12:3 7 PM GLASS CLEANER 07/30/2024 12:38 PM GLASS CLEANER Rehan Sheth MD LAB BLOOD ORDERABLES F inal Result [facility] [address] [place] [address] * (ABNORMAL) Basic metabolic panel (07/16/2024 11:34 AM GLASS CLEANER) Glucose 115 65 - 139 mg/dL [facility] Comment: ? Non-fasting reference interval BUN 29(H) 7 - 25 mg/dL [facility] Creatinine 1.23(H) 0.70 - 1.22 mg/dL [facility] eGFR 58(L) > OR = 60 mL/min/1.7 3m2 [facility] BUN/creat ratio 24(H) 6 - 22 (calc) [facility] Sodium 138 135 - 146 mmol/L [facility] Potassium, pl 4.4 3.5 - 5.3 mmol/L [facility] Chloride 101 98 - 110 mmol/L [facility] CO2 27 20 - 32 mmol/L [facility] Calcium 8.7 8.6 - 10.3 mg/dL [facility] Blood 07/16/2024 11:3 4 AM GLASS CLEANER 07/16/2024 11:34 AM GLASS CLEANER Narrative [facility] - 07/16/2024 10:30 PM GLASS CLEANER INSURANCE VERIFIED FASTING:NO FASTING: NO us Rehan Sheth MD LAB BLOOD ORDERABLES F inal Result [facility] [address] [place] [address] * (ABNORMAL) Basic metabolic panel (06/24/2024 10:29 AM GLASS CLEANER) Glucose 163(H) 65 - 99 mg/dL [facility] Comment: ? Fasting reference interval For [...] [facility] Blood 06/24/2024 10:2 9 AM GLASS CLEANER 06/24/2024 10:30 AM GLASS CLEANER Rehan Sheth MD LAB BLOOD ORDERABLES F inal Result [facility] [address] [place] [address] * (ABNORMAL) Hemoglobin A1c (06/07/2024 8:38 AM CDT) Hgb A1C 6.1(H) 4.0 - 5.6 % Estimated Average Glucose 128 mg/dL [facility] Comment: The ADA recommends reporting an estimated Average Glucose (eAG) with all Hemoglobin A1c results using the equation derived from a study of 507 normal and diabetic adults. ??Minority populations were underrepresented and children were not included. ?? (Diabetes Care 31:6089-0596, 2008). ??The eAG is not equivalent to a fasting glucose. Blood 06/07/2024 8:38 AM CDT 06/07/2024 9:07 AM CDT Joe Hood MD LAB BLOOD ORDER MAITE Final Result [facility] [address] [facility] Department of Laboratories [place], [place] [id number] * Lipid panel (06/07/2024 8:38 AM CDT) [...] 2. NCEP Expert Panel. Circulation 2004;110:227 3. Cahrli Fitch et al. SADE Cardiol. 2020 December [...] LAB BLOOD ORDER MAITE Final Result [facility] [address] [facility] [place] [address] * DIABETES FOOT EXAM (11/05/2020) Diabetic Foot [...] risk 17 Knowledge Deficit Concerning CHF 09/15/2024 Insurance [employer] CHOICE MEDICARE PPO MEDICARE SOLUTIONS MEDICARE SOLUTIONS [place] [id number] Advance Directives For more information, please contact: [phone] Documents on File Type Date Recorded Patient Pack Room Operator Expl anation ADVANCE DIRECTIVE 12/27/2023 10:41 PM Jorge Villa OWER OF PATIENT CARE REPRESENTATIVE-MEDICAL ADVANCE DIRECTIVE 12/26/2023 10:38 AM Yazmin Medina POWER OF PATIENT CARE REPRESENTATIVE-FINANCIAL * Full Code (Latest Code Status on [...] Communication Jorge Pryor Spouse Health Care Agent [email or web address] Medina Daughter First Alternate Health Care Agent [email or web address] Care Teams Informatics Manager Relationship Specialty Start Date End Date Barry Ralph MD PCP - General Family Practice 05/22/24 Rehan Sheth MD [address] [facility] [address] [place] [address] Consulting Physician Cardiology 09/09/24 Sangita Moore, RN [address] [facility] [address] [place] [address] SHOP Outpatient Corn Press Operator 09/15/24
--- OUTSIDE RECORDS SUMMARY | 2024-09-21 07:55 | XMS_ITS ---
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 09/10/2024 Internal carotid artery stenosis, right 06/12/20 Chronic heart failure with p reserved ejection fraction ([facility]/HCC) 06/12/2024 Stage 2 chronic kidney disease 06/12/2024 Thrombocytopenia 06/12/2024 Bilateral leg weakness 06/06/2024 NSTEMI (non-ST elevated myocardial infarction) ( [facility]) 05/20/2024 Assessment & Plan (05/21/2024 11:10 AM CDT): Repeat [facility] on 05/20/2024 showed: 60-70% lesion to mid LAD (with a positive IFR of 0.78) and a 90% lesion lesion to ostial circ; RCA with a known SOFT TILE SETTER (angiography not performed). -s/p Successful PCI to [...] Plan (05/20/2024 11:34 AM CDT): [facility] new 2L O2 requirement - OSH workup: Trp 1.95>5.1>10, proBNP 6800, CXR w/ mild interstitial edema - OSH [facility] 05/19 w/ L main widely patent, LAD proximal body 80% stenosis, LAD stent w/ moderate ISR, L cx w/ 95% stenosis in proximal body, OM branches w/ mild disease, RCA is SOFT TILE SETTER in mid body w/ L to R collaterals - cath films uploaded - OSH TTE reportedly w/ EF 50%, AV prosthesis w/o abnormal gradients - trop here 7,4130, repeat pending - currently denies chest pain or pressure, sob improving - PCI today - continue heparin drip - continue asa, coreg, atorvastatin 80mg - telemetry Assessment & Plan (05/20/2024 1:02 AM CDT): [facility], new 2L O2 requirement - OSH workup: Trp 1.95>5.1>10, proBNP 6800, CXR w/ mild interstitial edema - OSH [facility] 05/19 w/ L main widely patent, LAD proximal body 80% stenosis, LAD stent w/ moderate ISR, L cx w/ 95% stenosis in proximal body, OM branches w/ mild disease, RCA is SOFT TILE SETTER in mid body w/ L to R [...] Assessment & Plan (05/21/2024 10:58 AM CDT): [facility] 05/17 for SOB, on 3.5L now [...] Assessment & Plan (05/20/2024 11:50 AM CDT): [facility] 05/17 for SOB, on 3.5L now [...] Assessment & Plan (05/20/2024 1:00 AM CDT): [facility] 05/17 for SOB, on 2L now [...] salt diet Acute on chronic heart failure ([facility]) 024 Assessment & Plan (05/21/2024 [...] benefi Assessment & Plan (07/04/2024 1:02 PM HOST HOSTESS): He may just be symptomatic from his [...] Assessment & Plan (03/17/2024 1:48 PM CDT): 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 Still [...] stenosis. Assessment & Plan (07/04/2024 1:03 PM HOST HOSTESS): Failed LMBB. 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 [...] quiescent Assessment & Plan (09/04/2018 10:33 AM HOST HOSTESS): COPD is unchanged. COPD information handout given. [...] to PT - wants to go to [facility]. Trial robaxin. Flexeril on med [...] no Assessment & Plan (10/01/2019 10:35 AM HOST HOSTESS): S2 makes a wonderfully crisp snap w/o any regurge Gastroesophageal reflux disease 09/17/2014 Tussive syncope 08/25/2014 Syncope and collapse 08/21/2014 Syncope 08/21/2014 Type 2 diabetes mellitus 07/10/2014 Overview (05/13/2021): Was on levemir but stopped 2015 then on trulicity so on metformin ALONE We had better control w/ Jardiance -since he has been w/ Dr Stockton [id number] has been on Actose and metformin- Off [...] heart- Assessment & Plan (10/01/2019 10:30 AM HOST HOSTESS): His A1C has crept to 7.5% Admits [...] covered Assessment & Plan (09/04/2018 10:42 AM HOST HOSTESS): Diabetes is worsening. Continue current treatment regimen. Reminded to bring in blood sugar diary at next visit. Dietary recommendations for ADA diet. Regular aerobic exercise. Discussed foot care. Reminded to get yearly retinal exam. Diabetes will be reassessed in 3 months. Given his financial concerns my advice is to use food as [employer] medicine Obesity with body mass index 30 or greater 07/09 Generalized anxiety disorder 07/09/2014 Assessment & Plan (10/01/2019 10:32 AM HOST HOSTESS): He gets along nicely w/ a low [...] risk 17 Knowledge Deficit Concerning CHF 09/15/2024 Goals Goal Patient Goal Type Associated Problems Recent Progress Patient-Stated? Author CCM Chronic Pain Care Plan Chronic Care Management Improving( 10:49 AM HOST HOSTESS) Nenita Sanchez, TIM Note: Problem: Chronic Pain [...]
--- OUTSIDE RECORDS SUMMARY | 2024-09-21 07:55 | XMS_ITS | Encounter Summary ---
Author Organization [facility] Address [address] [place] [address] Care Team Providers Care Bb Shot Packer Name Role Phone Barry Ralph MD Primary Care Provider [phone] Barry Ralph MD Primary Care Provider [phone] Rosalee Crowder INSPECTION SUPERVISOR Unavailable Rehan Sheth MD Unavailable Sangita Moore RN Unavailable Encounter Details Date Type Department Care Team (Late st Contact Info) Description 02/26/2024 Telephone [facility] [address] [facility] [address] [place] [address] Aleksander Shankar MD [address] [place] [address] Social History Tobacco Use Types Packs/Day Years Used Date Smoking Tobacco: Never Smokeless Tobacco: Never [facility] Utilities Answer Date Recorded In [...] often do you attend chur ch or jew services? More than 4 times per year 01/01/2024 Do you belong to any clubs o r organizations such as islam groups, unions, fraternal or athletic groups, or [...] staff should administer the PHQ-9) 0 05/13/2021 [facility] [place] of Occupat ional Health - Occupational Stress [...] place to sleep or slept in a longterm (including now)? No 01/01/2024 Personal Safety Answer Date Recorded Have you ever been in or are you currently in a harmful physical or emotional relationship or is someone making you feel afraid or unsafe? Denies 12/19/2023 Sex and Gender Information Value Date Recorded Sex Assigned at Not on file Legal Sex Male 8:23 PM EDUCATIONAL DIRECTOR Gender Identity Not on file Sexual Orientation Not on file documented as of this encounter Plan of Treatment Not on file documented as of this encounter Goals Goal Patient Goal Type Associated Problems Recent Progress Patient-Stated? Author CCM Chronic Pain Care Plan Chronic Care Management Improving( 10:49 AM EDUCATIONAL DIRECTOR) No Nenita Santiago, RN Note: Problem: Chronic [...] Surveillance for admission to 92 09/12/2024 09/12/2024 09/19/2024 3:07 AM EDUCATIONAL DIRECTOR documented as of this encounter Care Teams Bb Shot Packer Relationship Specialty Start Date End Date Barry Ralph MD PCP - General Family Practice 10/20/22 05/20/24 Barry Ralph MD PCP - General Family Practice 05/22/24 Rosalee Crowder, [facility] [address] [facility] [place] Mailstop [phone] [place] [address] SHOP Outpatient Wide Area Network Administrator 05/22/24 06/19/24 Rehan Sheth MD [address] [facility] [address] [place] [address] Consulting Physician Cardiology 09/09/24 Sangita Moore, RN [address] [facility] [address] [place] [address] SHOP Outpatient Wide Area Network Administrator 09/15/24 documented as of this encounter
--- OUTSIDE RECORDS SUMMARY | 2024-09-21 07:55 | XMS_ITS | Clinical Summary ---
Author Organization [facility] Address Formerly [facility] [facility] [place] [address] [place] [address] Care Team Providers Care Clerical Coordinator Name Role Phone Robin Nelson MD Primary Care Provider Allergies No known active allergies Medications warfarin [...] Active METFORMIN 1000 MG tabletIndications :Diabetes mellitus ([facility]) TAKE 1 TABLET BY MOUTH TWICE A DAY 60 tablet 2 1 Active PIOGLITAZONE 15 MG tabletIndications :Type 2 diabetes mellitus with stage 3a chronic kidney disease, without long-term current use of insulin ([facility]) TAKE 1 TABLET BY MOUTH [...] Date COPD (chronic obstructive pu lmonary disease) ([facility]) 02/02/2020 Diabetes mellitus ([facility]) Hypertension Immunizations Name Administration Dates Next Due Flublok (Quadrivalent) 06/02/2020 Fluzone High Dose - >Age 65 (Prefilled Syringe) 07/02/2018 PFIZER COVID-19 (ORIGINAL FO RMULATION, PURPLE CAP) mRNA, LNP-S, PF, 30 MCG/0.3 ML DOSE 10/23/2020,09/25/2020 Tdap (Generic) 03/08/2019,03/19/2016 Zoster (Zostavax) 91330 Unt/0.65Ml 03/19/2016 Social History Tobacco Use Types [...] Comments Blood Pressure 155/71 09/19/2021 12:53 PM PRODUCT SAFETY ADMINISTRATOR Pulse 68 09/19/2021 12:53 PM PRODUCT SAFETY ADMINISTRATOR Temperature 35.8 ??C (96.5 ??F) 09/19/2021 11:[address] Respiratory Rate 20 09/19/2021 11:03 AM PRODUCT SAFETY ADMINISTRATOR Oxygen Saturation 95% 09/19/2021 12:53 PM PRODUCT SAFETY ADMINISTRATOR Inhaled Oxygen Concentration - - Weight 113.4 kg (250 lb) 09/15/2021 2:17 PM PRODUCT SAFETY ADMINISTRATOR Height 182.9 cm (6') 09/15/2021 2:17 PM PRODUCT SAFETY ADMINISTRATOR Body Mass Index 33.91 09/15/2021 2:17 PM PRODUCT SAFETY ADMINISTRATOR Plan of Treatment Health Maintenance Due [...] this topic Medical Devices Implanted Type Area Handbag Framer Device Identifier Shelf Expiration Date Model / Serial / Lot Intraocular Lens Implanted:Qty: 1 on 09/19/2021 by Daren Ralph MD at [facility] Left: Eye 04/14/2023 [id number] / [id number] / Procedures Procedure Name Priority Date/Time Associated Diagnosis Comments HEMOGLOBIN, GLYCOSYLATED Routine 07/05/2020 Type 2 diabetes mellitus with stage 3a chronic kidney disease, without long-term current use of insulin ([facility]) LIPID PANEL Routine 02/02/2020 11:47 AM CDT Dyslipidemia from Last 3 Months or Most Recently Relevant to Health Maintenance Results * HEMOGLOBIN, GLYCOSYLATED (07/05/2020) B A1C 8.2 % [facility] [facility] ([address] [facility] [place] 07/05/2020 Collette Stockton MD LABORATORY Final Result [address] ([address] [place]) [place] [address] [place] [address], * (ABNORMAL) LIPID PANEL (02/02/2020 11:47 AM CDT) Pathologist [facility] CHOLESTEROL 123 <200 mg/dL [facility] HDL 37(L) > OR = 40 mg/dL [facility] TRIGLYCERIDES 237(H) <150 mg/dL [facility] Comment: If a non-fasting specimen was collected, consider repeat triglyceride testing on a fasting specimen if clinically indicated. Amrit et al. J. of Clin. Lipidol. 2015;9:129-169. LDL (CALCULATED) 56 mg/dL (calc) [facility] Comment: Reference range: <100 Desirable range <100 mg/dL for primary prevention; ?? <70 mg/dL for patients with CHD or diabetic patients with > or = 2 CHD risk factors. LDL-C is now calculated using the Herber-Eduard calculation, which is a validated novel method providing better accuracy than the Friedewald equation in the estimation of LDL-C. Herber SS et al. SADE. 2013;310(19): 8481-7413 (http://education.[employer].Pretty in my Pocket (PRIMP)/faq/FKK131) CHOL/HDL RATIO 3.3 <5.0 (calc) [facility] NON HDL CHOLESTEROL 86 <130 mg/dL (calc) [facility] Comment: For patients with diabetes plus 1 major ASCVD risk factor, treating to a non-HDL-C goal of <100 mg/dL (LDL-C of <70 mg/dL) is considered a therapeutic option. 02/02/2020 11:4 7 AM CDT 02/03/2020 3:01 AM CDT Narrative Resulting Agency Comment Performing Organization Information: ?Site ID: [email or web address] ?Name: [facility] ?Address: [address] [address] ?Director: Siva Roman D.O., MPH us Collette Stockton MD LABORATORY Final Result [facility] [address] [address], from Last 3 Months or Most Recently Relevant to Health Maintenance Insurance [facility] Care Teams Clerical Coordinator Relationship Specialty Start Date End Date Robin Nelson MD [address] [place] [address] PCP - General INTERNAL MEDICINE 08/10/21
--- OUTSIDE RECORDS SUMMARY | 2024-09-21 07:55 | XMS_ITS | Clinical Summary ---
Author Organization [facility], formerly [facility] Address [address] [place] [address] Care Team Providers Care Regional Driver Name Role Phone Barry Ralph MD Primary Care Provider [phone] Rehan Sheth MD Unavailable Sangita Moore RN Unavailable [phone] Allergies No known active allergies Medications albuterol HFA (PROVENTIL HFA,VENTOLIN HFA,PROAIR HFA) 90 mcg/actuation inhaler Inhale 2 puffs as needed for shortness of breath 015 Active True Metrix Glucose Meter kit USE DIRECTED 1 kit 021 Active lancets (OneTouch Delica Plus Lancet) 30 gauge miscIndications:Ty pe 2 diabetes mellitus with hyperosmolarity without coma, without long-term current use of insulin ([facility]) ([facility]) Use to check blood sugar 3x daily 300 each 2 Active blood glucose diagnostic (True Metrix Glucose Test Strip) stripIndications:T ype 2 diabetes mellitus with hyperosmolarity without coma, without long-term current use of insulin ([facility]) (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 09/10/2024 Internal carotid artery stenosis, right 06/12/20 Chronic heart failure with p reserved ejection fraction ([facility]/HCC) 06/12/2024 Stage 2 chronic kidney disease 06/12/2024 Thrombocytopenia 06/12/2024 Bilateral leg weakness 06/06/2024 NSTEMI (non-ST elevated myocardial infarction) ( [facility]/HCC) 05/20/2024 Assessment & Plan (05/21/2024 11:10 AM CDT): Repeat C on 05/20/2024 showed: 60-70% lesion to mid LAD (with a positive IFR of 0.78) and a 90% lesion lesion to ostial circ; RCA with a known [employer] (angiography not performed). -s/p Successful PCI to [...] Plan (05/20/2024 11:34 AM CDT): Went to [facility] 05/17 for SOB, new 2L O2 requirement - OSH workup: Trp 1.95>5.1>10, proBNP 6800, CXR w/ mild interstitial edema - OSH [facility] 05/19 w/ L main widely patent, LAD proximal body 80% stenosis, LAD stent w/ moderate ISR, L cx w/ 95% stenosis in proximal body, OM branches w/ mild disease, RCA is [employer] in mid body w/ L to R collaterals - cath films uploaded - OSH TTE reportedly w/ EF 50%, AV prosthesis w/o abnormal gradients - trop here 7,6561, repeat pending - currently denies chest pain or pressure, sob improving - PCI today - continue heparin drip - continue asa, coreg, atorvastatin 80mg - telemetry Assessment & Plan (05/20/2024 1:02 AM CDT): Went to [facility] 05/17 for SOB, new 2L O2 requirement - OSH workup: Trp 1.95>5.1>10, proBNP 6800, CXR w/ mild interstitial edema - OSH [facility] 05/19 w/ L main widely patent, LAD proximal body 80% stenosis, LAD stent w/ moderate ISR, L cx w/ 95% stenosis in proximal body, OM branches w/ mild disease, RCA is [employer] in mid body w/ L to R [...] Assessment & Plan (05/21/2024 10:58 AM CDT): [facility] 05/17 for SOB, on 3.5L now [...] Assessment & Plan (05/20/2024 11:50 AM CDT): [facility] 05/17 for SOB, on 3.5L now [...] Assessment & Plan (05/20/2024 1:00 AM CDT): [facility] 05/17 for SOB, on 2L now [...] benefi Assessment & Plan (07/04/2024 1:02 PM SIGNAL TIMER): He may just be symptomatic from his [...] Assessment & Plan (03/17/2024 1:48 PM CDT): 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 Still [...] stenosis. Assessment & Plan (07/04/2024 1:03 PM SIGNAL TIMER): Failed LMBB. Assessment & Plan (04/23/2024 5:41 [...] Encounter for Medicare annual wellness exam 05/20 FPC (current) use of anticoagulants [Z79.0 1] 03/27/2018 Atrial fibrillation ([facility]) [I48.91] 8 Overview (09/04/2018): Dr. Sheth [...] quiescent Assessment & Plan (09/04/2018 10:33 AM SIGNAL TIMER): COPD is unchanged. COPD information handout given. [...] no Assessment & Plan (10/01/2019 10:35 AM SIGNAL TIMER): S2 makes a wonderfully crisp snap w/o any regurge Gastroesophageal reflux disease 09/17/2014 Tussive syncope 08/25/2014 Syncope and collapse 08/21/2014 Syncope 08/21/2014 Type 2 diabetes mellitus 07/10/2014 Overview (05/13/2021): Was on levemir but stopped 2015 then on trulicity so on metformin ALONE We had better control w/ Jardiance -since he has been w/ Dr Stockton [phone] has been on Actose and metformin- Off [...] heart- Assessment & Plan (10/01/2019 10:30 AM SIGNAL TIMER): His A1C has crept to 7.5% Admits [...] covered Assessment & Plan (09/04/2018 10:42 AM SIGNAL TIMER): Diabetes is worsening. Continue current treatment regimen. [...] 07/09/2014 Assessment & Plan (10/01/2019 10:32 AM SIGNAL TIMER): He gets along nicely w/ a low [...] Care Team Description 09/17/2024 SHOP/CHAP Subsequent Outreach [facility] [address] [place] [address] Sangita Moore, RN 09/15/2024 SHOP/CHAP Initial Outreach [facility] [address] [place] [address] Sangita Moore RN 09/15/2024 Telephone [facility] Cardiology [address] [facility] Advanced [facility] 8th [place] [address] [place] [phone] Rehan Sheth MD f/u orders 09/15/2024 SHOP/CHAP Initial Eligibility Review [facility] [address] [place] [address] Sangita Moore, RN 09/11/2024 12:49 PM SIGNAL TIMER - 09/14/2024 12:22 PM SIGNAL TIMER Hospital Encounter [facility] [address] [facility] [address] Joseph Lucas MD [place], MD Melissa King Natalie Marie, MD Chest pain, unspecified type (Primary Dx) Discharge Disposition: Discharge to home or self care 09/11/2024 Documentation [facility] Cardiology [address] [place] [address] Advanced [facility] 8th [place] [address] [place] [address] Rehan Sheth MD 09/11/[address] [place] [address] Rehan Sheth MD Symptoms update 09/10/2024 12:25 PM SIGNAL TIMER Lab [facility] ([facility]) [address] [place], [place] [id number] Chronic heart failure with preserved ejection fraction (CMS/HCC) (HCC) 09/10/2024 11:15 AM SIGNAL TIMER Office Visit [address] [place] [address] Rehan Sheth MD Chronic heart failure with preserved ejection fraction (CMS/HCC) (HCC) (Primary Dx); Coronary artery disease involving 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 (HCC) 09/10/[address] Advanced [address] [place] [address] Rehan Sheth MD Cardiac Clearance request 09/10/[address] [place] [address] Rehan Sheth MD Chest symptoms 09/09/[address] [place] [address] Rehan Sheth MD Samples/and report of ER eval 09/01/2024 Telephone [facility] Neurosurgery [address] [facility] Medical Office Building [address] [place] [phone] Clayton Robertson DO 08/26/2024 12:30 PM SIGNAL TIMER Office Visit [facility] Neurosurgery [address] [facility] Office Building [address] [place] [phone] Clayton Robertson DO 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) 08/26/2024 11:32 AM SIGNAL TIMER - 08/26/2024 11:59 PM SIGNAL TIMER Hospital Encounter [id number] Radiology [address] [place] [address] [address] [place] [phone] Lumbar spondylosis; Chronic bilateral low back pain, unspecified whether sciatica present Discharge Disposition: Discharge to home or self care 08/06/2024 Orders Only [facility] Neurosurgery [address] [place] [address] Office [facility] [address] [place] [phone] Clayton Robertson DO Lumbar spondylosis (Primary Dx); Chronic bilateral low back pain, unspecified whether sciatica present 07/04/2024 10:37 AM SIGNAL TIMER - 07/04/2024 11:59 PM SIGNAL TIMER Hospital Encounter [facility] [address] [facility] [address] [place] [address] Aleksander Shankar MD 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); Sacroiliac joint pain; Lumbar spondylosis Discharge Disposition: Discharge to home or self care 06/26/2024 Orders Only [facility] Cardiology [address] [facility] 8th [place] [address] [place] [address] Naila Cortez RN High risk medications (not anticoagulants) long-term use (Primary Dx) from Last 3 Months Immunizations Name Administration [...] 03/19/2016 Surgical History Surgery Date Site/Laterality Comments CO LASER VAPORIZATION OF PROSTATE FOR URINE FLOW Laser Vaporization With Transurethral Resection Of Prostate - (Added by TW Conv) CO RPLCMT PROST AORTIC VALVE OPEN XCP HOMOGRF/STENT [...] Tobacco: Never Tobacco Cessation:Counseling Given: Not Answered [facility] Utilities Answer Date Recorded In the past 12 months has th e [employer], gas, oil, or water [employer] threatened to shut off services in your [...] often do you attend chur ch or oriental orthodox services? More than 4 times per year [...] Date Recorded PHQ-2 Total Score 0 09/12/2024 [facility] - Occupational Stress Questionnaire Answer Date Recorded [...] in a fpc (including now)? No 01/01/2024 Housing Stability Vital Sign Answer Deangelo e Recorded In the last 12 months, was t here a time when you were not able to pay the mortgage or rent on time? No 09/15/2024 In the past 12 months, how m any times have you moved where you were living? 1 09/15/2024 At any time in the past [facility], were you homeless or living in a fpc (including now)? No 09/15/2024 Personal Safety Answer Date Recorded Have you ever been in or are you currently in a harmful physical or emotional relationship or is someone making you feel afraid or unsafe? Denies 09/11/2024 Sex and Gender Information Value Date Recorded Sex Assigned at Not on file Legal Sex Male 8:23 PM SIGNAL TIMER Gender Identity Not on file Sexual Orientation Not on file Obstetrics History Last Filed Vital Signs Vital Sign Reading Time Taken Comments Blood Pressure 133/57 09/14/2024 7:33 AM SIGNAL TIMER Pulse 64 09/14/2024 7:33 AM SIGNAL TIMER Temperature 36.8 ??C (98.2 ??F) 09/14/2024 7:33 AM CS T Respiratory Rate 18 09/14/2024 7:33 AM SIGNAL TIMER Oxygen Saturation 95% 09/14/2024 7:33 AM SIGNAL TIMER Inhaled Oxygen Concentration - - Weight 100.6 kg (221 lb 12.8 oz) 09/14/2024 4:49 AM SIGNAL TIMER Height 182.9 cm (6') 09/11/2024 4:35 PM SIGNAL TIMER Body Mass Index 30.08 09/11/2024 4:35 PM SIGNAL TIMER Plan of Treatment Health Maintenance Due Date Last Done Comments Albumin Creatinine Ratio, Urine 1940 Hepatitis B Screening 1958 Zoster Vaccine (2 of 3) 05/14/2016 03/19/2016 Dilated Eye Exam 05/05/2020 05/05/2019 Foot Exam 11/05/2021 11/05/2020, 06/04/2019 Well Visit 65+ 11/05/2021 11/05/2020, 06/04/2019 Covid-19 Vaccine (2023- 5 season) 2024 05/16/2022, 10/23/2020, 09/25/2020 Hemoglobin A1C 12/06/2024 06/07/2024, 081 04/2022, 11/10/2021, Additional history exists Lipid Panel 06/07/2025 06/07/2024, 100 08/2023, 11/05/2020, Additional history exists Depression Screening 09/11/2025 [...] Plan Chronic Care Management Improving( 10:49 AM SIGNAL TIMER) Nenita Sanchez, RN Note: Problem: Chronic Pain [...] baseline Care Plan Initial Follow-Up Appointment Sangita Sylvester RN Note: Pt has an appointment with [...] and vomiting. Medical Devices Implanted Type Area Industrial Sewer Device Identifier Shelf Expiration Date Model / Serial / Lot TerSoundTag Medical Branden Angio-Seal Vip Bondek-Plus 8fr .038in 70cm Hemostatic Latex Free [id number] - [id number] - [id number] Implanted:Qty : 1 on 05/20/2024 by Papo Rascon MD at [facility] Collagen Right: Common Femoral Artery Terumo Medical Branden 12/10/2024 [id number] / [id number] / [id number] Prosthetic Valve Prosthetic Valve Heart Description:Heart Valve Medtronic Card Vasc Surgery 4.0 X 12mm [place] Rx Coronary Stent [id number] - [id number] Implanted:Qty : 1 on 05/20/2024 by Vitor Pedroza MD at [facility] Stent N/A: Circumflex Coronary Artery Medtronic Card Vasc Surgery 01/11/2027 [id number] / [id number] / [id number] Medtronic Card Vasc Surgery 4.0 X 12mm [place] Rx Coronary Stent [id number] - [id number] Implanted:Qty : 1 on 05/20/2024 by Vitor Pedroza MD at [facility] Stent Left: Anterior Descending Cornary Artery Medtronic Card Vasc Surgery 11/14/2026 [id number] / [id number] / [id number] Procedures Procedure Name Priority Date/Time Associated Diagnosis Comments EGFR STAT 09/14/2024 8:23 AM SIGNAL TIMER BASIC METABOLIC PANEL STAT 09/14/2024 8:23 AM SIGNAL TIMER EGFR Routine 09/13/2024 9:57 PM SIGNAL TIMER CBC WITHOUT DIFFERENTIAL Routine 09/13/2024 9:57 PM SIGNAL TIMER MAGNESIUM Routine 09/13/2024 9:57 PM SIGNAL TIMER BASIC METABOLIC PANEL Routine 09/13/2024 9:57 PM SIGNAL TIMER EGFR Routine 09/12/2024 8:13 PM SIGNAL TIMER CBC WITHOUT DIFFERENTIAL Routine 09/12/2024 8:13 PM SIGNAL TIMER MAGNESIUM Routine 09/12/2024 8:13 PM SIGNAL TIMER BASIC METABOLIC PANEL Routine 09/12/2024 8:13 PM SIGNAL TIMER SODIUM, URINE, RANDOM Routine 09/12/2024 12:36 PM SIGNAL TIMER POCT GLUCOSE DEVICE Routine 09/12/2024 7 :52 AM SIGNAL TIMER POCT GLUCOSE DEVICE Routine 09/12/2024 6 :21 AM SIGNAL TIMER POCT GLUCOSE DEVICE Routine 09/12/2024 2 :15 AM SIGNAL TIMER EGFR Routine 09/11/2024 11:44 PM SIGNAL TIMER CBC WITHOUT DIFFERENTIAL Routine 09/11/2024 11:44 PM SIGNAL TIMER MAGNESIUM Routine 09/11/2024 11:44 PM SIGNAL TIMER BASIC METABOLIC PANEL Routine 09/11/2024 11:44 PM SIGNAL TIMER POCT GLUCOSE DEVICE Routine 09/11/2024 8 :14 PM SIGNAL TIMER POCT GLUCOSE DEVICE Routine 09/11/2024 5 :23 PM SIGNAL TIMER TROPONIN I HIGH-SENSITIVITY 4-HOUR Timed 09/11/2024 3:10 PM SIGNAL TIMER POCUS CARDIAC 09/11/2024 1:58 PM SIGNAL TIMER PRO B-TYPE NATRIURETIC PEPTIDE STAT 09/11/2024 1:30 PM SIGNAL TIMER TROPONIN I HIGH-SENSITIVITY 2-HOUR Timed 09/11/2024 1:30 PM SIGNAL TIMER XR CHEST PA LATERAL 2 VIEWS ED 09/11/2024 11:13 AM SIGNAL TIMER EGFR STAT 09/11/2024 11:03 AM SIGNAL TIMER DIFFERENTIAL AUTO STAT 09/11/2024 11: 03 AM SIGNAL TIMER TROPONIN I HIGH-SENSITIVITY SERIES (BASELINE, 2HR, 4HR, 6HR) STAT 09/11/2024 11:03 AM SIGNAL TIMER COMPREHENSIVE METABOLIC PANEL STAT 09/11/2024 11:03 AM SIGNAL TIMER CBC WITH AUTO DIFFERENTIAL STAT 09/11/2024 11:03 AM SIGNAL TIMER ECG 12-LEAD STAT 09/11/2024 10:52 AM SIGNAL TIMER POCT GLUCOSE DEVICE Routine 09/11/2024 1 0:48 AM SIGNAL TIMER EGFR Routine 09/10/2024 12:26 PM SIGNAL TIMER Chronic heart failure with preserved ejection fraction (CMS/HCC) (HCC) PRO B-TYPE NATRIURETIC PEPTIDE Routine 09/10/2024 12:26 PM SIGNAL TIMER Chronic heart failure with preserved ejection fraction (CMS/HCC) (HCC) BASIC METABOLIC PANEL Routine 09/10/2024 12:26 PM SIGNAL TIMER Chronic heart failure with preserved ejection fraction (CMS/HCC) (HCC) ECG 12-LEAD Routine 09/10/2024 11:33 AM SIGNAL TIMER Chronic heart failure with preserved ejection fraction (CMS/HCC) (HCC) XR SCOLIOSIS AP LAT Schedule Routine, Read Routine (OP Routine) 08/26/2024 11:42 AM SIGNAL TIMER Lumbar spondylosis Chronic bilateral low back pain, unspecified whether sciatica present BASIC METABOLIC PANEL Routine 07/30/2024 12:37 PM SIGNAL TIMER High risk medications (not anticoagulants) long-term use BASIC METABOLIC PANEL Routine 07/16/2024 11:34 AM SIGNAL TIMER High risk medications (not anticoagulants) long-term use BASIC METABOLIC PANEL Routine 06/24/2024 10:29 AM SIGNAL TIMER Acute on chronic systolic heart failure (HCC) HEMOGLOBIN A1C Routine 06/07/2024 8:38 AM CDT LIPID PANEL Routine 06/07/2024 8:38 AM CDT DIABETES FOOT EXAM Routine 11/05/2020 DIABETES EYE EXAM Routine 05/05/2019 from Last 3 Months or Most Recently Relevant to Health Maintenance Results * eGFR (09/14/2024 8:23 AM SIGNAL TIMER) [facility] eGFR 63 >=60 mL/min/1. 73 m2 Comment: [...] last reviewed 2021. Blood 09/14/2024 8:23 AM SIGNAL TIMER 09/14/2024 8:45 AM SIGNAL TIMER us Dalila Torres MD LAB BLOOD ORDERABLES Fi nal Result [facility] One [facility] Department [place] [address] * (ABNORMAL) Basic metabolic panel (09/14/2024 8:23 AM SIGNAL TIMER) Sodium 140 135 - 145 mmol/L Potassium, pl 4.0 3.3 - 4.9 mmol/L [facility] Chloride 104 97 - 110 mmol/L [facility] CO2 27 22 - 32 mmol/L [facility] Anion gap 9 2 - 15 mmol/L [facility] BUN 28(H) 6 - 25 mg/dL [facility] Creatinine 1.14 0.80 - 1.30 mg/dL [facility] Glucose 108 70 - 199 mg/dL [facility] Comment: Interpretive Data Fasting glucose >/= 126 [...] 2022. Calcium 8.8 8.5 - 10.3 mg/dL [facility] Blood 09/14/2024 8:23 AM SIGNAL TIMER 09/14/2024 8:45 AM SIGNAL TIMER us Dalila Torres MD LAB BLOOD ORDERABLES Fi nal Result [facility] One [facility] Department [place] [address] * (ABNORMAL) eGFR (09/13/2024 9:57 PM SIGNAL TIMER) eGFR 49(L) >=60 mL/min/1. 73 m2 Comment: [...] last reviewed 2021. Blood 09/13/2024 9:57 PM SIGNAL TIMER 09/13/2024 10:27 PM SIGNAL TIMER Dalila Torres MD LAB BLOOD ORDERABLES Fi nal Result Performing Organization Address City/[facility]/ZIP Co de Phone Number [facility] [place] [address] * (ABNORMAL) CBC without differential (09/13/2024 9:57 PM SIGNAL TIMER) Pathologist [facility] WBC 6.4 3.8 - 9.9 K/cumm Hgb 11.1(L) 13.0 - 17.5 g/dL [facility] Hct 33.4(L) 38.9 - 50.3 % [facility] Plt 152 150 - 400 K/cumm [facility] MPV 11.2 9.1 - 12.3 fL [facility] RBC 3.53(L) 4.30 - 5.80 M/cumm [facility] MCV 94.6 81.3 - 96.4 fL [facility] MCH 31.4 27.1 - 33.3 pg [facility] MCHC 33.2 32.3 - 35.7 g/dL [facility] RDW CV 14.9 11.1 - 14.9 % [facility] RDW SD 52.3(H) 35.7 - 48.1 fL [facility] NRBC abs 0.00 0.00 - 0.01 K/cumm [facility] Blood 09/13/2024 9:57 PM SIGNAL TIMER 09/13/2024 10:27 PM SIGNAL TIMER us Dalila Torres MD LAB BLOOD ORDERABLES Fi nal Result Performing Organization Address City/[facility]/ZIP Co de Phone Number [facility] Department [place] [address] * Magnesium (09/13/2024 9:57 PM SIGNAL TIMER) Pathologist [facility] Magnesium 2.1 1.4 - 2.5 mg/dL Blood 09/13/2024 9:57 PM SIGNAL TIMER 09/13/2024 10:27 PM SIGNAL TIMER Dalila Torres MD LAB BLOOD ORDERABLES Fi nal Result Performing Organization Address City/[facility]/ZIP Co de Phone Number [facility] Department [place] [address] * (ABNORMAL) Basic metabolic panel (09/13/2024 9:57 PM SIGNAL TIMER) [facility] Sodium 139 135 - 145 mmol/L Potassium, pl 3.7 3.3 - 4.9 mmol/L [facility] Chloride 102 97 - 110 mmol/L [facility] CO2 28 22 - 32 mmol/L [facility] Anion gap 9 2 - 15 mmol/L [facility] BUN 35(H) 6 - 25 mg/dL [facility] Creatinine 1.41(H) 0.80 - 1.30 mg/dL [facility] Glucose 126 70 - 199 mg/dL [facility] Comment: Interpretive Data Fasting glucose >/= 126 [...] 2022. Calcium 8.7 8.5 - 10.3 mg/dL [facility] Blood 09/13/2024 9:57 PM SIGNAL TIMER 09/13/2024 10:27 PM SIGNAL TIMER Dalila Torres MD LAB BLOOD ORDERABLES Fi nal Result Performing Organization Address City/[facility]/ZIP Co de Phone Number [facility] Department [place] [address] * (ABNORMAL) eGFR (09/12/2024 8:13 PM SIGNAL TIMER) [facility] eGFR 51(L) >=60 mL/min/1. 73 m2 [...] last reviewed 2021. Blood 09/12/2024 8:13 PM SIGNAL TIMER 09/12/2024 8:55 PM SIGNAL TIMER us Dalila Torres MD LAB BLOOD ORDERABLES Fi nal Result Performing Organization Address [facility] Co de Phone Number [facility] Department [place] [address] * (ABNORMAL) CBC without differential (09/12/2024 8:13 PM SIGNAL TIMER) [facility] WBC 7.4 3.8 - 9.9 K/cumm Hgb 11.0(L) 13.0 - 17.5 g/dL [facility] Hct 33.7(L) 38.9 - 50.3 % [facility] Plt 181 150 - 400 K/cumm [facility] MPV 11.1 9.1 - 12.3 fL [facility] RBC 3.60(L) 4.30 - 5.80 M/cumm [facility] MCV 93.6 81.3 - 96.4 fL [facility] MCH 30.6 27.1 - 33.3 pg [facility] MCHC 32.6 32.3 - 35.7 g/dL [facility] RDW CV 14.8 11.1 - 14.9 % [facility] RDW SD 51.2(H) 35.7 - 48.1 fL [facility] NRBC abs 0.00 0.00 - 0.01 K/cumm [facility] Blood 09/12/2024 8:13 PM SIGNAL TIMER 09/12/2024 8:54 PM SIGNAL TIMER us Dalila Torres MD LAB BLOOD ORDERABLES Fi nal Result Performing Organization Address City/[facility] Co de Phone Number [facility] [place] [address] * Magnesium (09/12/2024 8:13 PM SIGNAL TIMER) [facility] Magnesium 2.0 1.4 - 2.5 mg/dL Blood 09/12/2024 8:13 PM SIGNAL TIMER 09/12/2024 8:55 PM SIGNAL TIMER Dalila Torres MD LAB BLOOD ORDERABLES Fi nal Result Performing Organization Address City/[facility]/ZIP Co de Phone Number [facility] [place] [address] * (ABNORMAL) Basic metabolic panel (09/12/2024 8:13 PM SIGNAL TIMER) [facility] Sodium 141 135 - 145 mmol/L Potassium, pl 3.8 3.3 - 4.9 mmol/L [facility] Chloride 106 97 - 110 mmol/L [facility] CO2 26 22 - 32 mmol/L [facility] Anion gap 9 2 - 15 mmol/L [facility] BUN 31(H) 6 - 25 mg/dL [facility] Creatinine 1.37(H) 0.80 - 1.30 mg/dL [facility] Glucose 102 70 - 199 mg/dL [facility] Comment: Interpretive Data Fasting glucose >/= 126 [...] 2022. Calcium 8.4(L) 8.5 - 10.3 mg/dL [facility] Blood 09/12/2024 8:13 PM SIGNAL TIMER 09/12/2024 8:55 PM SIGNAL TIMER us Dalila Torres MD LAB BLOOD ORDERABLES Fi nal Result Performing Organization Address [facility] Co de Phone Number [facility] Department [place] [address] * Sodium, urine, random (09/12/2024 12:36 PM SIGNAL TIMER) Sodium, ur 72 mmol/L Comment: Interpretive Data No reference range established. Current interpretive data was last revised 2018. Urine 09/12/2024 12:3 6 PM SIGNAL TIMER 09/12/2024 4:22 PM SIGNAL TIMER Dalila Torres MD LAB URINE ORDERABLES Fi nal Result Performing Organization Address [facility] Co de Phone Number [facility] [place] [address] * POCT glucose (09/12/2024 7:52 AM SIGNAL TIMER) Glucose, POC 103 70 - 199 mg/dL Blood 09/12/2024 7:52 AM SIGNAL TIMER 09/12/2024 7:52 AM SIGNAL TIMER Dalila Torres MD LAB POCT ORDERABLES - D EVICE Final Result Performing Organization Address City/[facility]/[place] [address] * POCT glucose (09/12/2024 6:21 AM SIGNAL TIMER) Glucose, POC 92 70 - 199 mg/dL Blood 09/12/2024 6:21 AM SIGNAL TIMER 09/12/2024 6:21 AM SIGNAL TIMER us Dalila Torres MD LAB POCT ORDERABLES - D EVICE Final Result Performing Organization Address City/[facility]/[place] [address] * POCT glucose (09/12/2024 2:15 AM SIGNAL TIMER) [facility] Signature Glucose, POC 178 70 - 199 mg/dL Blood 09/12/2024 2:15 AM SIGNAL TIMER 09/12/2024 2:15 AM SIGNAL TIMER Dalila Torres MD LAB POCT ORDERABLES - D EVICE Final Result Performing Organization Address City/[facility] [place] [address] * (ABNORMAL) eGFR (09/11/2024 11:44 PM SIGNAL TIMER) [facility] eGFR 54(L) >=60 mL/min/1. 73 m2 [...] reviewed 2021. Blood 09/11/2024 11:4 4 PM SIGNAL TIMER 09/12/2024 12:17 AM SIGNAL TIMER us Dalila Torres MD LAB BLOOD ORDERABLES Fi nal Result [facility] One [facility] Department [place] [address] * (ABNORMAL) CBC without differential (09/11/2024 11:44 PM SIGNAL TIMER) WBC 7.1 3.8 - 9.9 K/cumm Hgb 11.5(L) 13.0 - 17.5 g/dL [facility] Hct 34.7(L) 38.9 - 50.3 % [facility] Plt 172 150 - 400 K/cumm [facility] MPV 10.9 9.1 - 12.3 fL [facility] RBC 3.70(L) 4.30 - 5.80 M/cumm [facility] MCV 93.8 81.3 - 96.4 fL [facility] MCH 31.1 27.1 - 33.3 pg [facility] MCHC 33.1 32.3 - 35.7 g/dL [facility] RDW CV 14.9 11.1 - 14.9 % [facility] RDW SD 51.1(H) 35.7 - 48.1 fL [facility] NRBC abs 0.00 0.00 - 0.01 K/cumm [facility] Blood 09/11/2024 11:4 4 PM SIGNAL TIMER 09/12/2024 12:17 AM SIGNAL TIMER Dalila Torres MD LAB BLOOD ORDERABLES Fi nal Result Performing Organization Address City/[facility]/ZIP Co de Phone Number [facility] Department [place] [address] * Magnesium (09/11/2024 11:44 PM SIGNAL TIMER) [facility] Magnesium 2.1 1.4 - 2.5 mg/dL Blood 09/11/2024 11:4 4 PM SIGNAL TIMER 09/12/2024 12:17 AM SIGNAL TIMER Dalila Torres MD LAB BLOOD ORDERABLES Fi nal Result Performing Organization Address City/[facility]/ZIP Co de Phone Number [facility] [place] [address] * (ABNORMAL) Basic metabolic panel (09/11/2024 11:44 PM SIGNAL TIMER) [facility] Sodium 142 135 - 145 mmol/L Potassium, pl 3.5 3.3 - 4.9 mmol/L [facility] Chloride 104 97 - 110 mmol/L [facility] CO2 27 22 - 32 mmol/L [facility] Anion gap 11 2 - 15 mmol/L [facility] BUN 30(H) 6 - 25 mg/dL [facility] Creatinine 1.30 0.80 - 1.30 mg/dL [facility] Glucose 74 70 - 199 mg/dL [facility] Comment: Interpretive Data Fasting glucose >/= 126 [...] 2022. Calcium 8.8 8.5 - 10.3 mg/dL [facility] Blood 09/11/2024 11:4 4 PM SIGNAL TIMER 09/12/2024 12:17 AM SIGNAL TIMER Dalila Torres MD LAB BLOOD ORDERABLES Fi nal Result Performing Organization Address City/[facility]/ZIP Co de Phone Number [facility] [place] [address] * POCT glucose (09/11/2024 8:14 PM SIGNAL TIMER) Glucose, POC 142 70 - 199 mg/dL Blood 09/11/2024 8:14 PM SIGNAL TIMER 09/11/2024 8:14 PM SIGNAL TIMER Dalila Torres MD LAB POCT ORDERABLES - D EVICE Final Result [facility] [place] [address] * POCT glucose (09/11/2024 5:23 PM SIGNAL TIMER) Glucose, POC 91 70 - 199 mg/dL Blood 09/11/2024 5:23 PM SIGNAL TIMER 09/11/2024 5:[address] Tai MD LAB POCT ORDERABLES - DEVICE Final Result Performing Organization Address [facility] de Phone Number [facility] Department [place] [address] * Troponin I high-sensitivity 4-hour (09/11/2024 3:10 PM SIGNAL TIMER) Trop I hs 13 <=35 ng/L Comment: Interpretive Data For further hscTnI resources including the diagnostic algorithm and an aid in interpretation, copy and paste this link: https://bjhlab.testcatalog.org/show/hsTrop-1 Current Interpretive Data last revised 2020. Trop I hs delta -1 ng/L [facility] Trop I hs interp Insignificant [facility] Blood 09/11/2024 3:10 PM SIGNAL TIMER 09/11/2024 3:22 PM SIGNAL TIMER us Ricki Ramirez MD LAB BLOOD ORDERABLES Final Result Performing Organization Address [facility] de Phone Number [facility] [place] [address] * POCUS Cardiac (09/11/2024 1:58 PM SIGNAL TIMER) Anatomical Region Laterality Modality Other 09/11/2024 1:28 PM SIGNAL TIMER Narrative 09/11/2024 3:02 PM SIGNAL TIMER Performed by: Jose Martin Guevara Cardiac: ?Exam [...] Troponin I high-sensitivity 2-hour (09/11/2024 1:30 PM SIGNAL TIMER) Trop I hs 14 <=35 ng/L Comment: Interpretive Data For further [facility] resources including the diagnostic algorithm and an aid in interpretation, copy and paste this link: https://bjhlab.testcatalog.org/show/hsTrop-1 Current Interpretive Data last revised 2020. Trop I hs delta 0 ng/L [facility] Trop I hs interp Insignificant [facility] Blood 09/11/2024 1:30 PM SIGNAL TIMER 09/11/2024 2:03 PM SIGNAL TIMER us Ricki Ramirez MD LAB BLOOD ORDERABLES Final Result [facility] [address] [facility] Department [place] [address] * (ABNORMAL) Pro B-type natriuretic peptide (09/11/2024 1:30 PM SIGNAL TIMER) NT-proBNP 1,193(H) <=450 pg/mL Comment: Interpretive Comments: [...] Revised Date: 2018. Blood 09/11/2024 1:30 PM SIGNAL TIMER 09/11/2024 2:[address] De Leon MD LAB BLOOD ORDERABLES Final Result Performing Organization Address City/State/ZIP Co ks Phone Number [facility] Department [place] [address] * XR Chest Pa Lateral 2 Views (09/11/2024 11:13 AM SIGNAL TIMER) Anatomical Region Laterality Modality Body, Chest N/A Computed Radiogr aphy 09/11/2024 11:4 4 AM SIGNAL TIMER Impressions 09/11/2024 11:44 AM SIGNAL TIMER Comparison to 12/21/2023. 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 Heart and mediastinum are unchanged. There is no pneumothorax or pleural effusion. Small lung volumes with scarring in the left midlung that is similar to the prior CT. No new focal pulmonary opacity. Electronically signed by: Eric Balbuena M.D. Narrative 09/11/2024 11:44 AM SIGNAL TIMER EXAMINATION: 2 view chest radiograph Procedure Note [...] (baseline, 2hr, 4hr, 6hr) (09/11/2024 11:03 AM SIGNAL TIMER) Pathologist [facility] Trop I hs 14 <=35 ng/L Comment: Interpretive Data For further hscTnI resources including the diagnostic algorithm and an aid in interpretation, copy and paste this link: https://bjhlab.testcatalog.org/show/hsTrop-1 Current Interpretive Data last revised 2020. Blood 09/11/2024 11:0 3 AM SIGNAL TIMER 09/11/2024 11:20 AM SIGNAL TIMER us Joseph Lucas MD LAB BLOOD ORDERABLES Shanna l Result [facility] One [facility] Department [place] [address] * (ABNORMAL) eGFR (09/11/2024 11:03 AM SIGNAL TIMER) [facility] eGFR 49(L) >=60 mL/min/1. 73 m2 Comment: [...] reviewed 2021. Blood 09/11/2024 11:0 3 AM SIGNAL TIMER 09/11/2024 11:20 AM SIGNAL TIMER us Joseph Lucas MD LAB BLOOD ORDERABLES Shanna orozco Result [facility] One [facility] Department [place] [address] * Differential, auto (09/11/2024 11:03 AM SIGNAL TIMER) Neutrophil abs 4.9 1.5 - 6.5 K/cumm Imm gran abs 0.0 0.0 - 0.1 K/cumm [facility] Lymphocyte abs 1.4 0.8 - 3.3 K/cumm [facility] Monocyte abs 0.7 0.2 - 0.8 K/cumm [facility] Eosinophil abs 0.1 0.0 - 0.5 K/cumm [facility] Basophil abs 0.0 0.0 - 0.1 K/cumm [facility] Neutrophil pct 67.9 % [facility] Comment: Interpretive Data Percent cell count reference ranges are not reported, since discordance with absolute values may lead to misinterpretation of CBC data. Current Interpretive Data was last revised on 2017. Imm gran pct 0.4 % [facility] Comment: Interpretive Data Percent cell count reference ranges are not reported, since discordance with absolute values may lead to misinterpretation of CBC data. Current Interpretive Data was last revised on 2017. Lymphocyte pct 19.8 % [facility] Comment: Interpretive Data Percent cell count reference ranges are not reported, since discordance with absolute values may lead to misinterpretation of CBC data. Current Interpretive Data was last revised on 2017. Monocyte pct 9.6 % [facility] Comment: Interpretive Data Percent cell count reference ranges are not reported, since discordance with absolute values may lead to misinterpretation of CBC data. Current Interpretive Data was last revised on 2017. Eosinophil pct 1.9 % [facility] Comment: Interpretive Data Percent cell count reference ranges are not reported, since discordance with absolute values may lead to misinterpretation of CBC data. Current Interpretive Data was last revised on 2017. Basophil pct 0.4 % [facility] Comment: Interpretive Data Percent cell count reference ranges are not reported, since discordance with absolute values may lead to misinterpretation of CBC data. Current Interpretive Data was last revised on 2017. Blood 09/11/2024 11:0 3 AM SIGNAL TIMER 09/11/2024 11:20 AM SIGNAL TIMER Joseph Lucas MD LAB BLOOD ORDERABLES Shanna l Result [facility] One [facility] Department [place] [address] * (ABNORMAL) CBC with auto differential (09/11/2024 11:03 AM SIGNAL TIMER) WBC 7.3 3.8 - 9.9 K/cumm Hgb 11.0(L) 13.0 - 17.5 g/dL [facility] Hct 33.2(L) 38.9 - 50.3 % [facility] Plt 175 150 - 400 K/cumm [facility] MPV 10.6 9.1 - 12.3 fL [facility] RBC 3.51(L) 4.30 - 5.80 M/cumm [facility] MCV 94.6 81.3 - 96.4 fL [facility] MCH 31.3 27.1 - 33.3 pg [facility] MCHC 33.1 32.3 - 35.7 g/dL [facility] RDW CV 14.9 11.1 - 14.9 % [facility] RDW SD 51.4(H) 35.7 - 48.1 fL [facility] NRBC abs 0.00 0.00 - 0.01 K/cumm [facility] Blood (Blood, Venous) 09/11/2024 11:03 AM SIGNAL TIMER 09/11/2024 11:20 AM SIGNAL TIMER us Joseph Lucas MD LAB BLOOD ORDERABLES Shanna pam Result [facility] One [facility] Department [place] [address] * (ABNORMAL) Comprehensive metabolic panel (09/11/2024 11:03 AM SIGNAL TIMER) Sodium 142 135 - 145 mmol/L Potassium, pl 3.6 3.3 - 4.9 mmol/L [facility] Chloride 102 97 - 110 mmol/L [facility] CO2 28 22 - 32 mmol/L [facility] Anion gap 12 2 - 15 mmol/L [facility] BUN 33(H) 6 - 25 mg/dL [facility] Creatinine 1.40(H) 0.80 - 1.30 mg/dL [facility] Glucose 114 70 - 199 mg/dL [facility] Comment: Interpretive Data Fasting glucose >/= 126 [...] 2022. Calcium 8.9 8.5 - 10.3 mg/dL [facility] Bilirubin, total 0.4 0.1 - 1.2 mg/dL [facility] Protein, pl 6.9 6.5 - 8.5 g/dL [facility] Albumin 3.9 3.5 - 5.0 g/dL [facility] Alk phos 43 40 - 130 Units/L [facility] ALT 13 7 - 55 Units/L [facility] AST 24 10 - 50 Units/L [facility] Blood 09/11/2024 11:0 3 AM SIGNAL TIMER 09/11/2024 11:20 AM SIGNAL TIMER Joseph Lucas MD LAB BLOOD ORDERABLES Shanna orozco Result [facility] One [facility] Department [place] [address] * ECG 12-LEAD (09/11/2024 10:52 AM SIGNAL TIMER) Narrative [facility] - 09/11/2024 10:52 AM SIGNAL TIMER Hermilo Linares MD ? 09/11/2024 10:55 AM [...] MD ECG ORDERABLES Final Res ult [facility] * POCT glucose (09/11/2024 10:48 AM SIGNAL TIMER) Glucose, POC 112 70 - 199 mg/dL Blood 09/11/2024 10:4 8 AM SIGNAL TIMER 09/11/2024 10:48 AM SIGNAL TIMER us Notinfile Unknown LAB POCT ORDERABLES - DEVICE F inal Result Performing Organization Address [facility] Co de Phone Number [facility] One [facility] Department [place] [address] * (ABNORMAL) eGFR (09/10/2024 12:26 PM SIGNAL TIMER) eGFR 54(L) >=60 mL/min/1. 73 m2 Comment: [...] reviewed 2021. Blood 09/10/2024 12:2 6 PM SIGNAL TIMER 09/10/2024 1:37 PM SIGNAL TIMER us Rehan Sheth MD LAB BLOOD ORDERABLES F inal Result [facility] Department [place] [address] * (ABNORMAL) Pro B-type natriuretic peptide (09/10/2024 12:26 PM SIGNAL TIMER) NT-proBNP 2,273(H) <=450 pg/mL Comment: Interpretive Comments: [...] Date: 2018. Blood 09/10/2024 12:2 6 PM SIGNAL TIMER 09/10/2024 1:32 PM SIGNAL TIMER Rehan Sheth MD LAB BLOOD ORDERABLES F inal Result [facility] One [facility] Department [place] [address] * (ABNORMAL) Basic metabolic panel (09/10/2024 12:26 PM SIGNAL TIMER) Sodium 142 135 - 145 mmol/L Potassium, pl 3.9 3.3 - 4.9 mmol/L [facility] Chloride 104 97 - 110 mmol/L [facility] CO2 28 22 - 32 mmol/L [facility] Anion gap 10 2 - 15 mmol/L [facility] BUN 31(H) 6 - 25 mg/dL [facility] Creatinine 1.29 0.80 - 1.30 mg/dL [facility] Glucose 126 70 - 199 mg/dL [facility] Comment: Interpretive Data Fasting glucose >/= 126 [...] 2022. Calcium 9.2 8.5 - 10.3 mg/dL [facility] Blood 09/10/2024 12:2 6 PM SIGNAL TIMER 09/10/2024 1:32 PM SIGNAL TIMER Rehan Sheth MD LAB BLOOD ORDERABLES F inal Result [facility] Department [place] [address] * ECG 12 lead (09/10/2024 11:33 AM SIGNAL TIMER) Rehan Sheth MD ECG ORDERABLES Edited Result - Final * XR Scoliosis Ap and Lateral (08/26/2024 11:42 AM SIGNAL TIMER) Anatomical Region Laterality Modality Spine N/A Computed Radiogr aphy 08/26/2024 12:3 0 PM SIGNAL TIMER Impressions 08/26/2024 12:30 PM SIGNAL TIMER 1. ??Mild thoracolumbar curvature with leftward coronal and anterior sagittal imbalance Electronically signed by: Mehran Sotomayor MD Narrative 08/26/2024 12:30 PM SIGNAL TIMER EXAMINATION: XR SCOLIOSIS AP AND LATERAL HISTORY: [...] (ABNORMAL) Basic metabolic panel (07/30/2024 12:37 PM SIGNAL TIMER) Glucose 143(H) 65 - 99 mg/dL [email or web address] Comment: ? Fasting reference interval For someone without known diabetes, a glucose value >125 mg/dL indicates that they may have diabetes and this should be confirmed with a follow-up test. BUN 22 7 - 25 mg/dL [email or web address] Creatinine 1.04 0.70 - 1.22 mg/dL [facility] eGFR 71 > OR = 60 mL/min/1.7 3m2 [facility] BUN/creat ratio SEE NOTE: 6 - 22 (calc) [employer] Comment: ?? Not Reported: BUN and Creatinine are within ?? reference range. ? Sodium 141 135 - 146 mmol/L [facility] Potassium, pl 4.2 3.5 - 5.3 mmol/L [facility] Chloride 103 98 - 110 mmol/L [facility] CO2 30 20 - 32 mmol/L [facility] Calcium 8.9 8.6 - 10.3 mg/dL [facility] Blood 07/30/2024 12:3 7 PM SIGNAL TIMER 07/30/2024 12:38 PM SIGNAL TIMER Rehan Sheth MD LAB BLOOD ORDERABLES F inal Result Performing Organization Address [facility] Co de Phone Number [facility] [address] [place] [address] * (ABNORMAL) Basic metabolic panel (07/16/2024 11:34 AM SIGNAL TIMER) Glucose 115 65 - 139 mg/dL [facility] Comment: ? Non-fasting reference interval BUN 29(H) 7 - 25 mg/dL [facility] Creatinine 1.23(H) 0.70 - 1.22 mg/dL [facility] eGFR 58(L) > OR = 60 mL/min/1.7 3m2 [facility] BUN/creat ratio 24(H) 6 - 22 (calc) [facility] Sodium 138 135 - 146 mmol/L [facility] Potassium, pl 4.4 3.5 - 5.3 mmol/L [facility] Chloride 101 98 - 110 mmol/L [facility] CO2 27 20 - 32 mmol/L [facility] Calcium 8.7 8.6 - 10.3 mg/dL [facility] Blood 07/16/2024 11:3 4 AM SIGNAL TIMER 07/16/2024 11:34 AM SIGNAL TIMER Narrative [facility] - 07/16/2024 10:30 PM SIGNAL TIMER INSURANCE VERIFIED FASTING:NO FASTING: NO Rehan Sheth MD LAB BLOOD ORDERABLES F inal Result Performing Organization Address [facility]/ZIP Co de Phone Number [facility] [address] [place] [address] * (ABNORMAL) Basic metabolic panel (06/24/2024 10:29 AM SIGNAL TIMER) Glucose 163(H) 65 - 99 mg/dL [facility] Blood 06/24/2024 10:2 9 AM SIGNAL TIMER 06/24/2024 10:30 AM SIGNAL TIMER Rehan Sheth MD LAB BLOOD ORDERABLES F inal Result [facility] [address] [place] [address] * (ABNORMAL) Hemoglobin A1c (06/07/2024 8:38 AM CDT) Hgb A1C 6.1(H) 4.0 - 5.6 % Estimated Average Glucose 128 mg/dL [facility] Comment: The ADA recommends reporting an estimated Average Glucose (eAG) with all Hemoglobin A1c results using the equation derived from a study of 507 normal and diabetic adults. ??Minority populations were underrepresented and children were not included. ?? (Diabetes Care 31:2318-5878, 2008). ??The eAG is not equivalent to a fasting glucose. Blood 06/07/2024 8:38 AM CDT 06/07/2024 9:07 AM CDT us Joe Hood MD LAB BLOOD ORDER MAITE Final Result [facility] [address] [facility] [place] [address] * Lipid panel (06/07/2024 8:38 AM CDT) [...] revised on 2018. Triglycerides 68 <=149 mg/dL [facility] Comment: Interpretive Data Ages < or = [...] NCEP Expert Panel. Circulation 2004;110:227 3. Charli Greene al. SADE Cardiol. 2020 December 18;5(5):540-548. doi: [...] ORDER MAITE Final Result Performing Organization Address City/State/[facility] Co de Phone Number [facility] [address] [facility] [place] [address] * DIABETES FOOT EXAM (11/05/2020) Diabetic Foot [...] Advance Directives For more information, please contact: [phone] Documents on File Type Date Recorded Patient Ferris Wheel Attendant Expl anation ADVANCE DIRECTIVE 12/27/2023 10:41 PM Jorge Pryor P OWER OF PRODUCT SAFETY PROFESSIONAL-MEDICAL ADVANCE DIRECTIVE 12/26/2023 10:38 AM Yazmin Medina POWER OF PRODUCT SAFETY PROFESSIONAL-FINANCIAL * Full Code (Latest Code Status on [...] Name Relationship Healthcare Agent Relationship Communication Jorge Skaggswendi Spouse Health Care Agent [email or web address] Yazmin Medina Daughter First Alternate Health Care Agent [email or web address] Care Teams Regional Driver Relationship Specialty Start Date End Date Barry Ralph MD PCP - General Family Practice 05/22/24 Rehan Sheth MD [address] [facility] [address] [place] [address] Consulting Physician Cardiology 09/09/24 Sangita Moore, RN [address] [facility] [address] [place] [address] SHOP Outpatient Business Manager 09/15/24
[2024-09-21 08:41] LABS: Basophils Absolute Auto 0.02 K/mm3 (0.00-0.10); Basophils Percent Auto 0.4 % (0.0-1.0); Eosinophils Absolute Auto 0.12 K/mm3 (0.02-0.50); Eosinophils Percent Auto 2.2 % (1.0-6.0); Hematocrit 36.7 % (37.0-46.0); Immature Granulocyte Absolute 0.03 K/mm3 (0.00-0.00); Immature Granulocyte Percent A 0.5 % (0.0-0.0); Lymphocytes Absolute Auto 1.26 K/mm3 (1.10-4.50); Lymphocytes Percent Auto 22.9 % (18.0-42.0); Mean Corpuscular HGB Conc 32.7 g/dL (32-36); Mean Corpuscular Hemoglobin 30.1 pg (27.0-31.0); Mean Platelet Volume 11.5 fl (8.7-11.0); Monocytes Absolute Auto 0.47 K/mm3 (0.10-0.90); Monocytes Percent Auto 8.5 % (2.0-11.0); Neutrophils Absolute Auto 3.61 K/mm3 (1.70-7.20); Neutrophils Percent Auto 65.5 % (50.0-70.0); Platelet Count Result 167 K/mm3 (150-420); Red Blood Count 3.99 M/mm3 (4.70-6.10); Red Cell Distribution Width 14.2 % (11.6-14.4); White Blood Count 5.5 K/mm3 (4.8-10.8)
[2024-09-21 08:42] LABS: Add Urine Microscopic? NO; Appearance Urine Clear (Clear); Bilirubin Urine Negative (Negative); Blood Urine Negative (Negative); Color Urine Light Yellow (Yellow); Glucose Urine UA Negative (Negative); Ketones Urine Negative (Negative); Leukocyte Esterase Ur Negative LEU/UL (Negative); Nitrate Urine Negative (Negative); Protein Urine Negative (Negative); Urobilinogen Urine 0.2 mg/dL (0.2-1.0); pH Urine 5.5 (5.0-8.0)
[2024-09-21 09:01] LABS: Alanine Aminotransferase 13 U/L (16-63); Albumin Level 2.9 g/dL (3.4-5.0); Alkaline Phosphatase 39 U/L (46-116); Anion Gap 11 mmol/L (4-12); Aspartate Amino Transferase 21 U/L (15-37); Bilirubin,Total 0.3 mg/dL (0.00-1.00); Blood Urea Nitrogen 23 mg/dL (7-18); Calcium 8.7 mg/dL (8.5-10.1); Carbon Dioxide 26 mmol/L (21-32); Chloride 102 mmol/L (98-108); Estimated CRCL calculation 40 ml/min; Estimated Glomerular Filt Rate 52; Glucose 112 mg/dL (70-99); NT Pro B Type Natriuretic Pept 1929 pg/mL (0-450); Osmolality Calculated 292 mOsm/kg (285-295); Potassium 3.8 mmol/L (3.5-5.1); Sodium 139 mmol/L (136-145); Total Protein 6.8 g/dL (6.4-8.2); Troponin I 27.2 ng/L (0.00-60.4)
[2024-09-21 09:02] LABS: Lactic Acid Reflex 1.1 mmol/L (0.4-2.0)
[2024-09-21 10:40] VITALS: BP 146/61; PULSE 63; RESP 18; TEMP 36.6; O2SAT 99
== END 2024-09-21 11:02 | disposition home or self-care (01) ==
PROVIDERS: Emergency Provider Emergency Medicine; PCP Family Medicine
DX: J18.9 Pneumonia, unspecified organism (principal); I48.91 Unspecified atrial fibrillation; J44.9 Chronic obstructive pulmonary disease, unspecified; I50.9 Heart failure, unspecified; E11.9 Type 2 diabetes mellitus without complications; Z79.01 Long term (current) use of anticoagulants; Z86.73 Personal history of transient ischemic attack (TIA), and cerebral infarction without residual deficits
CPT/HCPCS: 36415; 71045; 80053; 81003; 83605; 83880; 84484; 85025; 93005; 99284

== ENCOUNTER 2024-10-08 15:00 | Outpatient (CLI) | payer MEDICARE, SELFPAY ==
--- NOTE | ~2024-10-08 | XR_ITS ---
XR chest 2V 10/08/2024 15:36 Indication: Fatigue Procedure: 2 view chest Comparison: 09/21/2024 Findings: Moderate cardiomegaly. 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 No focal air space disease, pulmonary edema, pleural effusion or suspected pneumothorax. There is mild thoracic spondylosis. Impression: 1: No acute cardiopulmonary disease. Reviewed, dictated and finalized at location B. ICULTURE/FLORICULTURE TEACHER Impression: 1: No acute cardiopulmonary disease.
--- NOTE | ~2024-10-08 | CT_ITS ---
EXAMINATION: CT brain wo con DATE: 10/08/2024 15:32 INDICATION: Unspecified injury of head, initial encounter. TECHNIQUE: Computed tomography (CT) of the head was performed without intravenous contrast. The mA wa s adjusted according to patient size. Iterative reconstruction technique was employed. The dose-lengt h product was 681.00 mGy-cm. COMPARISON: Head CT 09/08/2024, brain MRI 06/06/2024 FINDINGS: There are scattered areas of low attenuation in the cerebral white matter, which is within normal limits for the patient's age. There is no intracranial hemorrhage, acute infarction, or abnorm al intracranial mass lesion. The ventricles are normal in size. There is mild mucosal thickening in t he paranasal sinuses. There are likely changes of left ocular lens replacement surgery. The mastoid a ir cells are normal. IMPRESSION: 1. Normal aging brain. Reviewed, dictated and finalized at location A. TH CARE SOCIAL WORKER IMPRESSION: 1. Normal aging brain.
--- OUTSIDE RECORDS SUMMARY | 2024-10-08 15:06 | XMS_ITS | Encounter Summary ---
Author Organization [facility] Address [address] [place] [address] Phone Care Team Providers Care Account Manager Trainee Name Role Phone Barry Ralph MD Primary Care Provider [phone] Rehan Sheth MD Unavailable [phone] Sangita Moore RN Unavailable Encounter Details Date Type Department Care Team (Late st Contact Info) Description 09/01/2024 Telephone [facility] [address] [facility] Medical Office Building [address] [place] [address] Clayton Robertson DO [address] [place] [address] Social History Tobacco Use Types Packs/Day Years Used Date Smoking Tobacco: Never Smokeless Tobacco: Never [facility] Utilities Answer Date Recorded In the past 12 months has th e electric, gas, oil, or water [employer] threatened to shut off services in your [...] any clubs o r organizations such as hinduism groups, unions, fraternal or athletic groups, or school groups? No 09/15/2024 How often do you attend meet ings of the clubs or organizations you belong to? Never 09/15/2024 Are you , , di vorced, , never , or living with a partner? 09/15/2024 AUDIT-C Answer Date Recorded Q1: How often do you have a drink containing alcohol? Never 10/03/2024 Q2: How many drinks containi ng alcohol do you have on a typical day when you are drinking? Patient does not drink Q3: How often do you have si x or more drinks on one occasion? Never 10/03/2024 Overall Financial Resource Strain (CARDIA) Answe r Date Recorded How hard is it for you to pa y for the very basics like food, housing, medical care, and heating? Not hard at all 09/15/2024 PHQ-2 Answer Date Recorded PHQ-2 Total Score 0 09/12/2024 [facility] - Occupational Stress [...] any time in the past 12 m [facility], were you homeless or living in a skilled nursing (including now)? No 09/15/2024 Personal Safety Answer Date Recorded Have you ever been in or are you currently in a harmful physical or emotional relationship or is someone making you feel afraid or unsafe? Denies 10/06/2024 Sex and Gender Information Value Date Recorded Sex Assigned at Not on file Legal Sex Male 8:23 PM TABLEAU ARCHITECT Gender Identity Not on file Sexual Orientation Not on file documented as of this encounter Functional Status * Audit-C Score Answer Date of Assessment Author 0 10/03/2024 8:39 AM Annie Mora RN * Question Answer Date of Assessment Author Q1: How often do you have a drink containing alcohol? Never 10/03/2024 8:39 AM Lalitha Mora, TIM Q2: How many drinks containing alcohol do you have on a typical day when you are drinking? Patient does not drink 10/03/2024 8:39 AM TABLEAU ARCHITECT Lalitha Oliva, TIM Q3: How often do you have six or more drinks on one occasion? Never 10/03/2024 8:39 AM TABLEAU ARCHITECT Lalitha Oliva, TIM documented as of this encounter Miscellaneous Notes * Telephone Encounter - Rosanna Salgado RN - 10/07/2024 10:24 AM TABLEAU ARCHITECT LVM with pt. Per cards, will be seen back on 11/05 for clearance and follow up. Will need to reschedule 10/21 visit until after then. Call back numbers given EAU ARCHITECT * Telephone Encounter - Rosanna Salgado RN - 09/15/2024 2:03 PM TABLEAU ARCHITECT See other encounter EAU ARCHITECT * Telephone Encounter - Rosanna Salgado RN - 09/15/2024 11:48 AM TABLEAU ARCHITECT Left message with Dr. Sheth's office regarding clearance. EAU ARCHITECT * Telephone Encounter - Christine Ball - 09/15/2024 11:23 AM CST Naila from Dr Sheth's team called to speak to a nurse on Dr Robertson's team re: clearance letter. Naila: [phone] Please assist, TY. EAU ARCHITECT * Telephone Encounter - Rosanna Salgado RN - 09/09/2024 12:52 PM TABLEAU ARCHITECT Spoke with pt via phone. Sees Dr. Sheth, added to care team. Letter sent for clearance. Will schedule f/u appt. EAU ARCHITECT * Telephone Encounter - Rosanna Salgado RN - 09/05/2024 9:04 AM TABLEAU ARCHITECT Attempted to call pt but mailbox was full. Will attempt again next clinic day EAU ARCHITECT * Telephone Encounter - Jenifer White - 09/04/2024 9:55 AM CST Medical clearance scanned into chart EAU ARCHITECT * Telephone Encounter - Rosanna Salgado RN - 09/01/2024 3:43 PM TABLEAU ARCHITECT PCP clearance letter sent. [employer] message sent to pt for cards info. Attempted to call both home and mobile number in chart but unable to connect. EAU ARCHITECT * Telephone Encounter - Yvonne Whalen - 09/01/2024 12:[address] Robertson would like for patient to have PCP Clearance and Travel Coordinator clearance Additionally did explain to the patient that he has significant comorbidities and I would recommendsurgical risk stratification from his primary care doctor and rock dust sprayer to assess whether or notit is indeed worth the risks of pursuing this surgical intervention when weighed against his risks of comorbidities. EAU ARCHITECT documented in this encounter Plan of Treatment Not on file documented as of this encounter Goals Goal Patient Goal Type Associated Problems Recent Progress Patient-Stated? Author CCM Chronic Pain Care Plan Chronic Care Management Improving( 10:49 AM TABLEAU ARCHITECT) Nenita Sanchez, TIM Note: Problem: Chronic Pain [...] Knowledge Deficit Concerning CHF No Sangita Moore, TIM Note: Inst daily weights to monitor fluid [...] Surveillance for admission to 9200 09/12/2024 09/12/2024 09/19/2024 3:07 AM TABLEAU ARCHITECT documented as of this encounter Care Teams Account Manager Trainee Relationship Specialty Start Date End Date Barry Ralph MD PCP - General Family Practice 05/22/24 [place] [address] [place] [id number] Consulting Physician Cardiology 09/09/24 Sangita Moore, RN [address] [facility] [address] [place] [id number] [facility] Outpatient Psychology Associate 09/15/24 documented as of this encounter
--- OUTSIDE RECORDS SUMMARY | 2024-10-08 15:06 | XMS_ITS | Referral Summary ---
Author Organization [facility] Address [address] [place] [address] Care Team Providers Care Human Resource Manager Name Role Phone Barry Ralph MD Primary Care Provider [phone] Rehan Sheth MD Unavailable [phone] Sangita Moore RN Unavailable [phone] Encounters Date Type Department Care Team Description 10/08/2024 Documentation [facility] [address] [place] [phone] Yvonne Tanner, RN 10/08/2024 SHOP/CHAP Subsequent Outreach [facility] OP CASE MANAGEMENT 1 [place] [phone] Sangita Moore RN 10/07/2024 Telephone [facility] Cardiology [address] [place] [address] Advanced Medicine 8th [place] [address] [place] [address] Rehan Sheth MD shortness of breath/anxiety 10/07/2024 SHOP/CHAP Subsequent Outreach [facility] OP CASE MANAGEMENT 1 [place] [address] Sangita Moore RN 10/06/2024 SHOP/CHAP Subsequent Outreach [facility] OP CASE MANAGEMENT [address] [place] [address] Sangita Moore RN 10/06/2024 Results Follow-Up [facility]iology [address] [place] [address] Advanced [facility] 8th [place] [address] [place] [address] Amanda Chatman RN 10/06/2024 2:18 PM HOTEL REGISTRATION CLERK - 10/06/2024 7:30 PM [facility] Emergency [facility] Emergency Department 1 [place] [address] Aneta Castellanos MD Altered mental status, unspecified altered mental status type (Primary Dx) Discharge Disposition: Discharge to home or self care 10/06/2024 Telephone [facility]iology [address] [place] [address] 8th [place] [address] [place] [address] Rehan Sheth MD [facility] 10/03/2024 10:45 AM [facility] - 10/03/2024 12:00 PM [facility] Surgery [facility] Heart and Vascular [address] [address] Nigel Holman MD Right Left Heart Catheterization with Coronary Angiography with or without Left Ventriculography [id number] 10/03/2024 7:50 AM HOTEL REGISTRATION CLERK - 10/03/2024 5:48 PM HOTEL REGISTRATION CLERK Hospital Encounter [facility] Heart [facility] Vascular [address] [address] Nigel Holman MD Chest pain, unspecified type (Primary Dx); Chronic systolic heart failure (CMS/HCC) (HCC); 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); Acute on chronic heart failure, unspecified heart failure type (HCC); Paroxysmal atrial fibrillation (CMS/HCC) (HCC); History of aortic valve replacement Discharge Disposition: Discharge to home or self care 09/30/2024 SHOP/CHAP Subsequent Outreach [facility] OP CASE MANAGEMENT 1 [place] [address] Sangita Moore RN 09/26/2024 SHOP/CHAP Subsequent Outreach [facility] CASE MANAGEMENT 1 [place] [address] Sangita Moore RN 09/25/2024 Orders Only [facility] [address] [place] [address] Advanced Medicine 8th [place] [address] [place] [address] Naila Cortez RN High risk medications (not anticoagulants) long-term use (Primary Dx) 09/25/2024 Telephone [facility] [address] [place] [address] Advanced Medicine 8th [place] [address] [place] [address] Rehan Sheth MD 09/24/2024 7:40 PM HOTEL REGISTRATION CLERK Lab [facility] [address] [place] [phone] Chronic heart failure with preserved ejection fraction (CMS/HCC) (HCC) 09/24/2024 Telephone [facility] [address] [place] [address] [place] [address] Rehan Sheth MD cardiac cath 09/24/2024 3:15 PM HOTEL REGISTRATION CLERK Office Visit [facility] [address] [place] [address] 8th [place] [address] [place] [address] Rehan Sheth MD Chronic heart failure with preserved ejection fraction (CMS/HCC) (HCC) (Primary Dx); History of aortic valve replacement; Benign essential hypertension; Paroxysmal atrial fibrillation (CMS/HCC) (HCC) 09/23/2024 SHOP/CHAP Subsequent Outreach [facility] OP CASE MANAGEMENT 1 [place] [address] Sangita Moore RN 09/17/2024 SHOP/CHAP Subsequent Outreach [facility] OP CASE MANAGEMENT 1 [place] [address] Sangita Moore, RN 09/15/2024 SHOP/CHAP Initial Outreach [facility] OP CASE MANAGEMENT 1 [place] [address] Sangita Moore RN 09/15/2024 Telephone [facility] [address] [place] [address] Advanced Medicine 8th [place] [address] Rehan Sheth MD f/u orders 09/15/2024 SHOP/CHAP Initial Eligibility Review [facility] OP CASE MANAGEMENT 1 [place] [address] Sangita Moore, RN 09/11/2024 12:49 PM HOTEL REGISTRATION CLERK - 09/14/2024 12:22 PM HOTEL REGISTRATION CLERK Hospital Encounter [address] [address] Joseph Lucas MD [place], MD Melissa King, Dalila Jean MD Chest pain, unspecified type (Primary Dx) Discharge Disposition: Discharge to home or self care 09/11/2024 Documentation [facility] [address] [place] [address] Advanced Medicine [facility] [place] [address] Rehan Sheth MD 09/11/2024 Telephone [facility] [address] [place] [address] Advanced Medicine [facility] [place] [address] Rehan Sheth MD Symptoms update 09/10/2024 Telephone [facility] [address] [place] [address] Advanced Medicine 8th [place] [address] Rehan Sheth MD Cardiac Clearance request 09/10/2024 12:25 PM HOTEL REGISTRATION CLERK Lab [facility] Advanced [facility] ([facility]) [address] [place] [phone] Chronic heart failure with preserved ejection fraction (CMS/HCC) (HCC) 09/10/2024 11:15 AM HOTEL REGISTRATION CLERK Office Visit [facility] [address] [facility] 8th [place] [address] [place] [address] Rehan Sheth MD Chronic heart failure with preserved ejection fraction (CMS/HCC) (HCC) (Primary Dx); 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) 09/10/2024 Telephone [facility] [address] [facility] 8th [place] [address] [place] [phone] Rehan Sheth MD Chest symptoms 09/09/2024 Telephone [facility] [address] [facility] 8th [place] [address] [place] [phone] Rehan Sheth MD Samples/and report of ER eval 09/01/2024 Telephone [facility] Neurosurgery [address] [place] [address] Medical Office Building [address] [place] [address] Clayton Robertson DO 08/26/2024 11:32 AM HOTEL REGISTRATION CLERK - 08/26/2024 11:59 PM HOTEL REGISTRATION CLERK Hospital Encounter [facility] [address] [place] [address] [address] [place] [address] Lumbar spondylosis; Chronic bilateral low back pain, unspecified whether sciatica present Discharge Disposition: Discharge to home or self care 08/26/2024 12:30 PM HOTEL REGISTRATION CLERK Office Visit [facility] [address] [place] [address] Medical Office Building [address] [place] [address] Clayton Robertson DO 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) 08/06/2024 Orders Only [facility] [address] [place] [address] Medical Office Building [address] [place] [address] Clayton Robertson DO Lumbar spondylosis (Primary Dx); Chronic bilateral low back pain, unspecified whether sciatica present from Last 3 Months Allergies No known active allergies Medications albuterol HFA (PROVENTIL HFA,VENTOLIN HFA,PROAIR HFA) 90 mcg/actuation inhaler Inhale 2 puffs as needed for shortness of breath 015 Active True Metrix Glucose Meter kit USE DIRECTED 1 kit Active lancets (OneTouch Delica Plus Lancet) 30 gauge miscIndications:Ty pe 2 diabetes mellitus with hyperosmolarity without coma, without long-term current use of insulin ([facility]) ([facility]) Use to check blood sugar 3x daily 300 each 2 Active blood glucose diagnostic (True Metrix Glucose Test Strip) stripIndications:T ype 2 diabetes mellitus with hyperosmolarity without coma, without long-term current use of insulin ([facility]) ([facility]) TEST BLOOD SUGAR EVERY DAY 100 strip 3 Active DropSafe Alcohol Prep Pads pads, medicated APPLY TOPICALLY TWICE DAILY 100 each 11 Active amLODIPine (NORVASC) 10 mg tablet Take 1 [...] MEDICATION TOMORROW (05/22/2024) 56 tablet 025 Active isosorbide mononitrate ER (IMDUR) 30 mg 24 hr tablet Take 1 tablet (30 mg total) by mouth daily 30 tablet 11 025 2025 Active potassium chloride ER 20 mEq CR tablet Take 1 tablet (20 mEq total) by mouth daily Active furosemide (LASIX) 40 mg tablet Take 2 tabs in AM and one tab in PM 270 tablet 3 Active aspirin 81 mg chewable tablet Take 1 tablet (81 mg total) by mouth daily for 14 days 14 tablet 025 2024 Active furosemide (LASIX) 40 mg tablet Take [...] mouth 2 (two) times a day 025 2024 Discontinued(R eorder) furosemide (LASIX) 40 mg tablet Take 1 tablet (40 mg total) by mouth 2 (two) times a day 60 tablet 025 2024 Discontinued(S top Taking at Discharge) Active Problems Problem Noted Date Diagnosed Date Chest pain, unspecified type 09/11/2024 Coronary artery disease invo lving yurok coronary artery of yurok heart with angina pectoris 09/10/2024 Internal carotid artery stenosis, right 06/12/20 Chronic heart failure with p reserved ejection fraction (CMS/HCC) 06/12/2024 Stage 2 chronic kidney disease 06/12/2024 Thrombocytopenia 06/12/2024 Bilateral leg weakness 06/06/2024 NSTEMI (non-ST elevated myocardial infarction) ( [facility]) 05/20/2024 Assessment & Plan (05/21/2024 11:10 AM CDT): Repeat [facility] on 05/20/2024 showed: 60-70% lesion to mid LAD (with a positive IFR of 0.78) and a 90% lesion lesion to ostial circ; RCA with a known FLATWORK SUPERVISOR (angiography not performed). -s/p Successful PCI [...] Plan (05/20/2024 11:34 AM CDT): Went to [facility] 05/17 for SOB, new 2L O2 requirement - OSH workup: Trp 1.95>5.1>10, proBNP 6800, CXR w/ mild interstitial edema - OSH [facility] 05/19 w/ L main widely patent, LAD proximal body 80% stenosis, LAD stent w/ moderate ISR, L cx w/ 95% stenosis in proximal body, OM branches w/ mild disease, RCA is FLATWORK SUPERVISOR in mid body w/ L to R collaterals - cath films uploaded - OSH TTE reportedly w/ EF 50%, AV prosthesis w/o abnormal gradients - trop here 7,1116, repeat pending - currently denies chest pain or pressure, sob improving - PCI today - continue heparin drip - continue asa, coreg, atorvastatin 80mg - telemetry Assessment & Plan (05/20/2024 1:02 AM CDT): Went to [facility] 05/17 for SOB, new 2L O2 requirement - OSH workup: Trp 1.95>5.1>10, proBNP 6800, CXR w/ mild interstitial edema - OSH [facility] 05/19 w/ L main widely patent, LAD proximal body 80% stenosis, LAD stent w/ moderate ISR, L cx w/ 95% stenosis in proximal body, OM branches w/ mild disease, RCA is FLATWORK SUPERVISOR in mid body w/ L to [...] & Plan (05/21/2024 10:58 AM CDT): P/t [facility] 05/17 for SOB, on 3.5L now - [...] & Plan (05/20/2024 11:50 AM CDT): P/t [facility] 05/17 for SOB, on 3.5L now - [...] & Plan (05/20/2024 1:00 AM CDT): P/t [facility] 05/17 for SOB, on 2L now - [...] salt diet Acute on chronic heart failure ([facility]) 024 Assessment & Plan (05/21/2024 10:56 AM [...] benefi Assessment & Plan (07/04/2024 1:02 PM HOTEL REGISTRATION CLERK): He may just be symptomatic from his [...] Assessment & Plan (03/17/2024 1:48 PM CDT): Slot Attendant stenosis and 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 Still [...] stenosis. Assessment & Plan (07/04/2024 1:03 PM HOTEL REGISTRATION CLERK): Failed LMBB. Assessment & Plan (04/23/2024 5:41 [...] Encounter for Medicare annual wellness exam 05/20 FDC (current) use of anticoagulants [Z79.0 1] 03/27/2018 Atrial fibrillation ([facility]/HCC) [I48.91] 8 Overview (09/04/2018): Dr. Sheth helps [...] quiescent Assessment & Plan (09/04/2018 10:33 AM HOTEL REGISTRATION CLERK): COPD is unchanged. COPD information handout given. [...] to PT - wants to go to [facility]. Trial robaxin. Flexeril on med [...] no Assessment & Plan (10/01/2019 10:35 AM HOTEL REGISTRATION CLERK): S2 makes a wonderfully crisp snap w/o any regurge Gastroesophageal reflux disease 09/17/2014 Tussive syncope 08/25/2014 Syncope and collapse 08/21/2014 Syncope 08/21/2014 Type 2 diabetes mellitus 07/10/2014 Overview (05/13/2021): Was on levemir but stopped 2015 then on trulicity so on metformin ALONE We had better control w/ Katiediance -since he has been w/ Dr Stockton [phone] has been on Actose and metformin- Off [...] 9:28 AM CDT): Chronic. Maintains on glipizide, Robynunarnulfo at home with plan to hold these [...] heart- Assessment & Plan (10/01/2019 10:30 AM HOTEL REGISTRATION CLERK): His A1C has crept to 7.5% Admits [...] covered Assessment & Plan (09/04/2018 10:42 AM HOTEL REGISTRATION CLERK): Diabetes is worsening. Continue current treatment regimen. Reminded to bring in blood sugar diary at next visit. Dietary recommendations for ADA diet. Regular aerobic exercise. Discussed foot care. Reminded to get yearly retinal exam. Diabetes will be reassessed in 3 months. Given his financial concerns my advice is to use food as [facility] medicine Obesity with body mass index 30 or greater 07/09 Generalized anxiety disorder 07/09/2014 Assessment & Plan (10/01/2019 10:32 AM HOTEL REGISTRATION CLERK): He gets along nicely w/ a low [...] A virus 07/27/2017 02/22/2018 Paroxysmal atrial fibrillation ([facility]/HCC) 07/02/2017 09/04/2018 Overview (02/22/2018): Was on NOAC [...] will be reassessed in 3 months. Immunizations Immunization Administration Dates Next Due Influenza, Quadrivalent, Hig [...] Tobacco: Never Tobacco Cessation:Counseling Given: Not Answered [facility] [employer] Answer Date Recorded In the past 12 months has [employer], gas, oil, or water [employer] threatened to shut off services in your [...] week 09/15/2024 [facility] often [facility] attend [facility] services? More than 4 times per year 09/15/2024 Do you belong to any clubs o r organizations such as sikhism groups, unions, fraternal or athletic groups, or [...] Date Recorded PHQ-2 Total Score 0 09/12/2024 [facility] - [...] place to sleep or slept in a detention (including now)? No 01/01/2024 Housing Stability Vital Sign Answer Deangelo e Recorded In the last 12 months, was t here a time when you were not able to pay the mortgage or rent on time? No 09/15/2024 In the past 12 months, how m any times have you moved where you were living? 1 09/15/2024 At any time in the past 12 m [facility], were you homeless or living in a detention (including now)? No 09/15/2024 Personal Safety Answer Date Recorded Have you ever been in or are you currently in a harmful physical or emotional relationship or is someone making you feel afraid or unsafe? Denies 10/06/2024 Sex and Gender Information Value Date Recorded Sex Assigned at Not on file Legal Sex Male 8:23 PM HOTEL REGISTRATION CLERK Gender Identity Not on file Sexual Orientation Not on file Last Filed Vital Signs Vital Sign Reading Time Taken Comments Blood Pressure 113/56 10/06/2024 6:55 PM HOTEL REGISTRATION CLERK Pulse 66 10/06/2024 6:55 PM HOTEL REGISTRATION CLERK Temperature 36.6 C (97.9 F) 10/06/2024 12:33 PM HOTEL REGISTRATION CLERK Respiratory Rate 10 10/06/2024 6:55 PM HOTEL REGISTRATION CLERK Oxygen Saturation 96% 10/06/2024 6:55 PM HOTEL REGISTRATION CLERK Inhaled Oxygen Concentration - - Weight 99.8 kg (220 lb) 10/06/2024 12:33 PM HOTEL REGISTRATION CLERK Height 182.9 cm (6') 10/06/2024 12:33 PM HOTEL REGISTRATION CLERK Body Mass Index 29.84 10/06/2024 12:33 PM HOTEL REGISTRATION CLERK Plan of Treatment Not on file Goals Goal Patient Goal Type Associated Problems Recent Progress Patient-Stated? Author CCM Chronic Pain Care Plan Chronic Care Management Improving( 10:49 AM HOTEL REGISTRATION CLERK) No Nenita Santiago, RN Note: Problem: Chronic [...] vomiting. Medical Devices Implanted Type Area Director Of Retail Operations Device Identifier Shelf Expiration Date Model / Serial / Lot [employer] Angio-Seal Vip Bondek-Plus 8fr .038in 70cm Hemostatic Latex Free [id number] - [id number] - [id number] Implanted:Qty : 1 on 05/20/2024 by Papo Rascon MD at [facility] Collagen Right: Common Femoral Artery [employer] 12/10/2024 [id number] / [id number] / [id number] Prosthetic Valve Prosthetic Valve Heart Description:Heart Valve Medtronic Card Vasc Surgery 4.0 X 12mm Shar [employer] Rx Coronary Stent [id number] - [id number] - [id number] Implanted:Qty : 1 on 05/20/2024 by Vitor Pedroza MD at [facility] Stent N/A: Circumflex Coronary Artery Medtronic Card Vasc Surgery 01/11/2027 [id number] / [id number] / [id number] Medtronic Card Vasc Surgery 4.0 X 12mm Shar [employer] Rx Coronary Stent [id number] - [id number] Implanted:Qty : 1 on 05/20/2024 by Vitor Pedroza MD at [facility] Stent Left: Anterior Descending Cornary Artery Medtronic Card Vasc Surgery 11/14/2026 [id number] / [id number] / [id number] Medtronic Card Vasc Surgery 4.0 X 18mm Bruno [employer] Rx Coronary Stent [id number] - [id number] - [id number] Implanted:Qty : 1 on 10/03/2024 by Nigel Holman MD at [facility] Stent Left: Anterior Descending Cornary Artery Medtronic Card Vasc Surgery 04/14/2027 [id number] / [id number] / [id number] Description:Magen TO lad Procedures Procedure Name Priority Date/Time Associated Diagnosis Comments URINALYSIS, MICROSCOPIC ONLY STAT 10/06/2024 5:51 PM HOTEL REGISTRATION CLERK URINALYSIS AND REFLEX TO MICROSCOPIC STAT 10/06/2024 5:51 PM HOTEL REGISTRATION CLERK COMPREHENSIVE METABOLIC PANEL Routine 10/06/2024 3:59 PM HOTEL REGISTRATION CLERK EGFR Routine 10/06/2024 3:59 PM HOTEL REGISTRATION CLERK VITAMIN B12 Routine 10/06/2024 3:59 PM HOTEL REGISTRATION CLERK TSH Routine 10/06/2024 3:59 PM HOTEL REGISTRATION CLERK CBC WITHOUT DIFFERENTIAL Routine 10/06/2024 3:59 PM HOTEL REGISTRATION CLERK RESPIRATORY PATHOGEN PANEL STAT 10/06/2024 3:59 PM HOTEL REGISTRATION CLERK CT HEAD WO CONTRAST ED 10/06/2024 3 :37 PM HOTEL REGISTRATION CLERK XR CHEST PA LATERAL 2 VIEWS ED 10/06/2024 3:30 PM HOTEL REGISTRATION CLERK ECG 12-LEAD STAT 10/06/2024 1:07 PM HOTEL REGISTRATION CLERK POCT GLUCOSE DEVICE Routine 10/06/2024 12:48 PM HOTEL REGISTRATION CLERK EGFR Routine 10/03/2024 4:00 PM HOTEL REGISTRATION CLERK DIFFERENTIAL AUTO Routine 10/03/2024 4:0 0 PM HOTEL REGISTRATION CLERK CBC WITH AUTO DIFFERENTIAL Routine 10/03/2024 4:00 PM HOTEL REGISTRATION CLERK BASIC METABOLIC PANEL Routine 10/03/2024 4:00 PM HOTEL REGISTRATION CLERK POCT ACTIVATED CLOTTING TIME, LOW RANGE Routine 10/03/2024 2:14 PM HOTEL REGISTRATION CLERK RIGHT AND LEFT HEART CATHETERIZATION Routine 10/03/2024 12:42 PM HOTEL REGISTRATION CLERK Chronic systolic heart failure (CMS/HCC) (HCC) 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) Acute on chronic heart failure, unspecified heart failure type (HCC) Paroxysmal atrial fibrillation (CMS/HCC) (HCC) History of aortic valve replacement POCT ACTIVATED CLOTTING TIME, LOW RANGE Routine 10/03/2024 12:42 PM HOTEL REGISTRATION CLERK TYPE AND SCREEN Timed 10/03/2024 12:20 PM HOTEL REGISTRATION CLERK POCT ACTIVATED CLOTTING TIME, LOW RANGE Routine 10/03/2024 12:06 PM HOTEL REGISTRATION CLERK POCT OXYHEMOGLOBIN - DEVICE Routine 10/03/2024 11:47 AM HOTEL REGISTRATION CLERK POCT OXYHEMOGLOBIN - DEVICE Routine 10/03/2024 11:45 AM HOTEL REGISTRATION CLERK CBC WITHOUT DIFFERENTIAL Routine 10/03/2024 11:45 AM HOTEL REGISTRATION CLERK POCT OXYHEMOGLOBIN - DEVICE Routine 10/03/2024 11:44 AM HOTEL REGISTRATION CLERK POCT GLUCOSE DEVICE Routine 10/03/2024 8 :45 AM HOTEL REGISTRATION CLERK BASIC METABOLIC PANEL Routine 09/29/2024 9:42 AM HOTEL REGISTRATION CLERK High risk medications (not anticoagulants) long-term use EGFR Routine 09/24/2024 5:03 PM HOTEL REGISTRATION CLERK Chronic heart failure with preserved ejection fraction (CMS/HCC) (HCC) DIFFERENTIAL AUTO Routine 09/24/2024 5:0 3 PM HOTEL REGISTRATION CLERK Chronic heart failure with preserved ejection fraction (CMS/HCC) (HCC) BASIC METABOLIC PANEL Routine 09/24/2024 5:03 PM HOTEL REGISTRATION CLERK Chronic heart failure with preserved ejection fraction (CMS/HCC) (HCC) PRO B-TYPE NATRIURETIC PEPTIDE Routine 09/24/2024 5:03 PM HOTEL REGISTRATION CLERK Chronic heart failure with preserved ejection fraction (CMS/HCC) (HCC) CBC WITH AUTO DIFFERENTIAL Routine 09/24/2024 5:03 PM HOTEL REGISTRATION CLERK Chronic heart failure with preserved ejection fraction (CMS/HCC) (HCC) ECG 12-LEAD Routine 09/24/2024 4:01 PM HOTEL REGISTRATION CLERK History of aortic valve replacement EGFR STAT 09/14/2024 8:23 AM HOTEL REGISTRATION CLERK BASIC METABOLIC PANEL STAT 09/14/2024 8:23 AM HOTEL REGISTRATION CLERK EGFR Routine 09/13/2024 9:57 PM HOTEL REGISTRATION CLERK CBC WITHOUT DIFFERENTIAL Routine 09/13/2024 9:57 PM HOTEL REGISTRATION CLERK MAGNESIUM Routine 09/13/2024 9:57 PM HOTEL REGISTRATION CLERK BASIC METABOLIC PANEL Routine 09/13/2024 9:57 PM HOTEL REGISTRATION CLERK EGFR Routine 09/12/2024 8:13 PM HOTEL REGISTRATION CLERK CBC WITHOUT DIFFERENTIAL Routine 09/12/2024 8:13 PM HOTEL REGISTRATION CLERK MAGNESIUM Routine 09/12/2024 8:13 PM HOTEL REGISTRATION CLERK BASIC METABOLIC PANEL Routine 09/12/2024 8:13 PM HOTEL REGISTRATION CLERK SODIUM, URINE, RANDOM Routine 09/12/2024 12:36 PM HOTEL REGISTRATION CLERK POCT GLUCOSE DEVICE Routine 09/12/2024 7 :52 AM HOTEL REGISTRATION CLERK POCT GLUCOSE DEVICE Routine 09/12/2024 6 :21 AM HOTEL REGISTRATION CLERK POCT GLUCOSE DEVICE Routine 09/12/2024 2 :15 AM HOTEL REGISTRATION CLERK EGFR Routine 09/11/2024 11:44 PM HOTEL REGISTRATION CLERK CBC WITHOUT DIFFERENTIAL Routine 09/11/2024 11:44 PM HOTEL REGISTRATION CLERK MAGNESIUM Routine 09/11/2024 11:44 PM HOTEL REGISTRATION CLERK BASIC METABOLIC PANEL Routine 09/11/2024 11:44 PM HOTEL REGISTRATION CLERK POCT GLUCOSE DEVICE Routine 09/11/2024 8 :14 PM HOTEL REGISTRATION CLERK POCT GLUCOSE DEVICE Routine 09/11/2024 5 :23 PM HOTEL REGISTRATION CLERK TROPONIN I HIGH-SENSITIVITY 4-HOUR Timed 09/11/2024 3:10 PM HOTEL REGISTRATION CLERK POCUS CARDIAC 09/11/2024 1:58 PM HOTEL REGISTRATION CLERK PRO B-TYPE NATRIURETIC PEPTIDE STAT 09/11/2024 1:30 PM HOTEL REGISTRATION CLERK TROPONIN I HIGH-SENSITIVITY 2-HOUR Timed 09/11/2024 1:30 PM HOTEL REGISTRATION CLERK XR CHEST PA LATERAL 2 VIEWS ED 09/11/2024 11:13 AM HOTEL REGISTRATION CLERK EGFR STAT 09/11/2024 11:03 AM HOTEL REGISTRATION CLERK DIFFERENTIAL AUTO STAT 09/11/2024 11:03 AM HOTEL REGISTRATION CLERK TROPONIN I HIGH-SENSITIVITY SERIES (BASELINE, 2HR, 4HR, 6HR) STAT 09/11/2024 11:03 AM HOTEL REGISTRATION CLERK COMPREHENSIVE METABOLIC PANEL STAT 09/11/2024 11:03 AM HOTEL REGISTRATION CLERK CBC WITH AUTO DIFFERENTIAL STAT 09/11/2024 11:03 AM HOTEL REGISTRATION CLERK ECG 12-LEAD STAT 09/11/2024 10:52 AM HOTEL REGISTRATION CLERK POCT GLUCOSE DEVICE Routine 09/11/2024 10:48 AM HOTEL REGISTRATION CLERK EGFR Routine 09/10/2024 12:26 PM HOTEL REGISTRATION CLERK Chronic heart failure with preserved ejection fraction (CMS/HCC) (HCC) PRO B-TYPE NATRIURETIC PEPTIDE Routine 09/10/2024 12:26 PM HOTEL REGISTRATION CLERK Chronic heart failure with preserved ejection fraction (CMS/HCC) (HCC) BASIC METABOLIC PANEL Routine 09/10/2024 12:26 PM HOTEL REGISTRATION CLERK Chronic heart failure with preserved ejection fraction (CMS/HCC) (HCC) ECG 12-LEAD Routine 09/10/2024 11:33 AM HOTEL REGISTRATION CLERK Chronic heart failure with preserved ejection fraction (CMS/HCC) (HCC) XR SCOLIOSIS AP LAT Schedule Routine, Read Routine (OP Routine) 08/26/2024 11:42 AM HOTEL REGISTRATION CLERK Lumbar spondylosis Chronic bilateral low back pain, unspecified whether sciatica present BASIC METABOLIC PANEL Routine 07/30/2024 12:37 PM HOTEL REGISTRATION CLERK High risk medications (not anticoagulants) long-term use BASIC METABOLIC PANEL Routine 07/16/2024 11:34 AM HOTEL REGISTRATION CLERK High risk medications (not anticoagulants) long-term use HEMOGLOBIN A1C Routine 06/07/2024 8:38 AM CDT LIPID PANEL Routine 06/07/2024 8:38 AM CDT DIABETES FOOT EXAM Routine 11/05/2020 DIABETES EYE EXAM Routine 05/05/2019 from Last 3 Months or Most Recently Relevant to Health Maintenance Results * (ABNORMAL) Urinalysis reflex to microscopic (10/06/2024 5:51 PM HOTEL REGISTRATION CLERK) Color, ur Straw Yellow Clarity, ur Clear Clear [facility] Specific gravity, ur 1.010 1.003 - 1.030 [facility] pH, urine 6.0 [facility] Comment: Interpretive Data U rine pH is affected by diet, medications, systemic acid-base disturbances, and renal tubular function. pH may affect urinary stone formation. For example, urine pH below 6.0 may help reduce the tendency for calcium phosphate stones and pH greater than 6.0 may reduce the tendency for uric acid stone formation. Source: [facility] Current Interpretive Data was last revised on 2017 Protein, ur ql Negative Negative [facility] Glucose, ur ql Negative Negative [facility] Ketones, ur Negative Negative [facility] Bilirubin, ur Negative Negative [facility] Blood, ur Negative Negative [facility] Urobilinogen, ur <2.0 <2.0 mg/dL [facility] Nitrite, ur Negative Negative [facility] Leukocyte esterase, ur Trace(A) Negative [facility] UA reflex comment Reflex to microscopic UA will be performed. [facility] Urine 10/06/2024 5:51 PM HOTEL REGISTRATION CLERK 10/06/2024 5:58 PM HOTEL REGISTRATION CLERK us Aneta Castellanos MD LAB URINE ORDERABLES Final R esult [facility] Department [place] [address] * (ABNORMAL) Urinalysis, microscopic only (10/06/2024 5:51 PM HOTEL REGISTRATION CLERK) WBC, ur 0-5 0 - 5 /HPF RBC, ur 0-2 0 - 2 /HPF [facility] Epithelial cells, squamous, ur 1-5 0 - 5 /HPF [facility] Epithelial cells, transitional, ur 1-5 0 - 0 /HPF [facility] Bacteria, ur Trace(A) [facility] Mucous, ur Present(A) [facility] Hyaline casts, ur 6-10 0 - 10 /LPF [facility] Urine 10/06/2024 5:51 PM HOTEL REGISTRATION CLERK 10/06/2024 5:58 PM HOTEL REGISTRATION CLERK Aneta Castellanos MD LAB URINE ORDERABLES Final R esult Performing Organization Address [facility] Co de Phone Number [facility] Department [place] [address] * eGFR (10/06/2024 3:59 PM HOTEL REGISTRATION CLERK) [facility] eGFR 64 >=60 mL/min/1. 73 m2 Comment: Interpretive Data Reference Interval Normal >/= 90 mL/min/1.73m2 Mildly decreased* 60 - 89 mL/min/1.73m2 Mildly to moderately decreased 45 - 59 mL/min/1.73m2 Moderately to severely decreased 30 - 44 mL/min/1.73m2 Severely decreased 15 - 29 mL/min/1.73m2 Kidney Failure < 15 mL/min/1.73m2 *Relative to young adult level Estimated glomerular [...] interpretive data was last reviewed 2021. Blood 10/06/2024 3:59 PM HOTEL REGISTRATION CLERK 10/06/2024 4:26 PM HOTEL REGISTRATION CLERK Aneta Castellanos MD LAB BLOOD ORDERABLES Final R esult Performing Organization Address [facility] Co de Phone Number [facility] Department [place] [address] * Respiratory pathogen panel Nasopharyngeal (10/06/2024 3:59 PM HOTEL REGISTRATION CLERK) [facility] Influenza A RNA Not Detected Not Detected Influenza B RNA Not Detected Not Detected [facility] RSV RNA Not Detected Not Detected [facility] COVID-19 RNA Not Detected Not Detected [facility] Coronavirus 229E RNA Not Detected Not Detected [facility] Coronavirus HKU1 RNA Not Detected Not Detected [facility] Coronavirus NL63 RNA Not Detected Not Detected [facility] Coronavirus OC43 RNA Not Detected Not Detected [facility] Adenovirus DNA Not Detected Not Detected [facility] Metapneumovirus RNA Not Detected Not Detected [facility] Rhinovirus/Enterov irus RNA Not Detected Not Detected [facility] Parainfluenza 1 RNA Not Detected Not Detected [facility] Parainfluenza 2 RNA Not Detected Not Detected [facility] Parainfluenza 3 RNA Not Detected Not Detected [facility] Parainfluenza 4 RNA Not Detected Not Detected [facility] B. pertussis DNA Not Detected Not Detected [facility] B. parapertussis DNA Not Detected Not Detected [facility] C. pneumoniae DNA Not Detected Not Detected [facility] M. pneumoniae DNA Not Detected Not Detected [facility] Nasopharyngeal 10/06/2024 3: 59 PM HOTEL REGISTRATION CLERK 10/06/2024 4:19 PM HOTEL REGISTRATION CLERK Narrative [facility] - 10/06/2024 6:14 PM HOTEL REGISTRATION CLERK Is the Patient experiencing symptoms consistent with COVID?->No Surveillance testing for transplant patient?->No Interpretive Data [employer] FilmArray Respiratory Panel (RP2.1) assay is a multiplexed real-time PCR based nucleic acid test capable of simultaneous qualitative detection and identification of multiple respiratory viral and bacterial nucleic acids, including SARS Coronavirus 2 (the causative agent of COVID-19). The following bacteria, viruses and virus subtypes can be identified using the [employer]Array RP2.1 assay: Bordetella pertussis, Bordetella parapertussis, Chlamydia pneumoniae, Mycoplasma pneumoniae, Adenovirus, SARS Coronavirus 2, seasonal coronaviruses (Coronavirus HKU1, Coronavirus NL63, Coronavirus 229E, and Coronavirus OC43), Influenza A, Influenza A subtype H1, Influenza A subtype H3, Influenza A subtype 2009 H1, Influenza B, Metapneumovirus, Parainfluenza 1, Parainfluenza 2, Parainfluenza 3, Parainfluenza 4, RSV, Rhinovirus/Enterovirus. Due to the genetic similarity between human Rhinovirus and Enterovirus, the FilmArray RP2.1 assay cannot reliably differentiate them. Coronavirus OC43 may cross-react with some isolates of Coronavirus HKU1. A dual positive result may be due to cross-reactivity or may indicate a co- infection. The detection and identification of specific viral and bacterial nucleic acids from individuals exhibiting signs and symptoms of a respiratory infection aids in the diagnosis of respiratory infection if used in conjunction with other clinical and epidemiological information. The results of this test should not be used as the sole basis for diagnosis, treatment, or other management decisions. Negative results in the setting of a respiratory illness may be due to infection with pathogens that are not detected by this test. Positive results do not rule out infection/co-infection with other organisms. The agent(s) detected by the [employer] RP2.1 may not be the definite cause of disease. Additional testing (lab, imaging, etc.) may be necessary when evaluating a patient with possible respiratory tract infection. The [employer] RP2.1 assay has FDA clearance for testing of BRIDGE [employer]W OPERATOR swabs. The performance of additional specimen types has been assessed by the performing laboratory. The performance characteristics of this assay have been determined by [facility] Molecular Infectious Disease Laboratory. Current interpretive data was last revised on 22. us Oralia Cummings MD LAB MICROBIOLOGY - GENERAL OR DERABLES Final Result [facility] Department [place] [address] * (ABNORMAL) CBC without differential (10/06/2024 3:59 PM HOTEL REGISTRATION CLERK) WBC 6.8 3.8 - 9.9 K/cumm Hgb 11.5(L) 13.0 - 17.5 g/dL [facility] Hct 34.1(L) 38.9 - 50.3 % [facility] Plt 162 150 - 400 K/cumm [facility] MPV 11.4 9.1 - 12.3 fL [facility] RBC 3.72(L) 4.30 - 5.80 M/cumm [facility] MCV 91.7 81.3 - 96.4 fL [facility] MCH 30.9 27.1 - 33.3 pg [facility] MCHC 33.7 32.3 - 35.7 g/dL [facility] RDW CV 14.7 11.1 - 14.9 % [facility] RDW SD 49.6(H) 35.7 - 48.1 fL [facility] NRBC abs 0.00 0.00 - 0.01 K/cumm [facility] Blood 10/06/2024 3:59 PM HOTEL REGISTRATION CLERK 10/06/2024 4:26 PM HOTEL REGISTRATION CLERK us Priscilla Sarmiento MD LAB BLOOD ORDERABLES Final R esult Performing Organization Address City/[facility] Co de Phone Number [facility] [place] [address] * TSH (10/06/2024 3:59 PM HOTEL REGISTRATION CLERK) Pathologist [facility] Thyroid Stimulating Hormone 3.88 0.30 - 4.20 mcIUnit/mL Blood 10/06/2024 3:59 PM HOTEL REGISTRATION CLERK 10/06/2024 4:09 PM HOTEL REGISTRATION CLERK us Oralia Cummings MD LAB BLOOD ORDERABLES Final Re sult Performing Organization Address [facility] Co de Phone Number [facility] [place] [address] * Vitamin B12 (10/06/2024 3:59 PM HOTEL REGISTRATION CLERK) Vitamin B12 420 230 - 1,250 pg/mL Blood 10/06/2024 3:59 PM HOTEL REGISTRATION CLERK 10/06/2024 4:09 PM HOTEL REGISTRATION CLERK us Oralia Cummings MD LAB BLOOD ORDERABLES Final Re sult Performing Organization Address [facility] Co de Phone Number [facility] [place] [address] * (ABNORMAL) Comprehensive metabolic panel (10/06/2024 3:59 PM HOTEL REGISTRATION CLERK) Sodium 143 135 - 145 mmol/L Potassium, pl 4.3 3.3 - 4.9 mmol/L [facility] Chloride 104 97 - 110 mmol/L [facility] CO2 26 22 - 32 mmol/L [facility] Anion gap 13 2 - 15 mmol/L [facility] BUN 26(H) 6 - 25 mg/dL [facility] Creatinine 1.12 0.80 - 1.30 mg/dL [facility] Glucose 94 70 - 199 mg/dL [facility] Comment: Interpretive Data Fasting glucose >/= 126 mg/dl is diagnostic for diabetes. Fasting is defined as no caloric intake [...] interpretive data was last revised 2022. Calcium 9.1 8.5 - 10.3 mg/dL [facility] Bilirubin, total 0.4 0.1 - 1.2 mg/dL [facility] Protein, pl 7.1 6.5 - 8.5 g/dL [facility] Albumin 3.9 3.5 - 5.0 g/dL [facility] Alk phos 45 40 - 130 Units/L [facility] ALT 15 7 - 55 Units/L [facility] AST 37 10 - 50 Units/L [facility] Blood 10/06/2024 3:59 PM HOTEL REGISTRATION CLERK 10/06/2024 4:09 PM HOTEL REGISTRATION CLERK Aneta Castellanos MD LAB BLOOD ORDERABLES Final R esult [facility] Department [place] [address] * CT Head WO Contrast (10/06/2024 3:37 PM HOTEL REGISTRATION CLERK) Anatomical Region Laterality Modality Head and Neck N/A Computed Tomogra phy 10/06/2024 4:2 9 PM HOTEL REGISTRATION CLERK Impressions 10/06/2024 4:41 PM HOTEL REGISTRATION CLERK No acute intracranial hemorrhage, large vessel territory infarction, mass effect, or midline shift. Dictated by: Nikolas Vega M.D. The radiology attending physician has personally reviewed this study, and had reviewed and/or edited this written report and agrees with it. Electronically signed by: Johnny Ballesteros M.D, PHD Narrative 10/06/2024 4:41 PM HOTEL REGISTRATION CLERK EXAMINATION: CT head without contrast HISTORY: Altered mental status TECHNIQUE: CT of the head was performed with images acquired from skull base to vertex without intravenous contrast. COMPARISON: Brain MR from 06/09/2024. FINDINGS: Scattered ill-defined hypodensities in the periventricular and subcortical white matter are nonspecific, likely on the basis of chronic small vessel ischemic change. There is parenchymal volume loss. There are atherosclerotic calcifications of the intracranial vessels. There is no acute intracranial hemorrhage. Ventricles are of normal size and morphology. No mass effect or midline shift is present. The fontana-white matter differentiation is normal. The visualized portions of the mastoids are normal. Right greater than left mild maxillary sinus mucosal thickening. No fractures are identified. Left lens replacement. Scleral bands. Procedure Note Johnny Ballesteros MD PhD - 10/06/2024 EXAMINATION: CT head without contrast HISTORY: Altered mental status TECHNIQUE: CT of the head was performed with images acquired from skull base to vertex without intravenous contrast. COMPARISON: Brain MR from 06/09/2024. FINDINGS: Scattered ill-defined hypodensities in the periventricular and subcortical white matter are nonspecific, likely on the basis of chronic small vessel ischemic change. There is parenchymal volume loss. There are atherosclerotic calcifications of the intracranial vessels. There is no acute intracranial hemorrhage. Ventricles are of normal size and morphology. No mass effect or midline shift is present. The fontana-white matter differentiation is normal. The visualized portions of the mastoids are normal. Right greater than left mild maxillary sinus mucosal thickening. No fractures are identified. Left lens replacement. Scleral bands. IMPRESSION: No acute intracranial hemorrhage, large vessel territory infarction, mass effect, or midline shift. Dictated by: Nikolas Vega M.D. The radiology attending physician has personally reviewed this study, and had reviewed and/or edited this written report and agrees with it. Electronically signed by: Johnny Ballesteros M.D, PHD Priscilla Sarmiento MD IMG CT PROCEDURES Final Resu lt * XR Chest PA Lateral 2 Views (10/06/2024 3:30 PM HOTEL REGISTRATION CLERK) Anatomical Region Laterality Modality Body, Chest N/A Computed Radiogr aphy 10/06/2024 3:42 PM HOTEL REGISTRATION CLERK Impressions 10/06/2024 3:49 PM HOTEL REGISTRATION CLERK Comparison with chest radiograph dated 07/12/2025. Median sternotomy wires are present. Aortic valve replacement is present. Small lung volumes. Unchanged scarring of the left mid lung. Mild bibasilar atelectasis. No pleural effusion or pneumothorax. Cardiomediastinal silhouette is unchanged. Dictated by: Jose Martin Cazares M.D. The radiology attending physician has personally reviewed this study, and had reviewed and/or edited this written report and agrees with it. Electronically signed by: Luna Perez M.D. Narrative 10/06/2024 3:49 PM HOTEL REGISTRATION CLERK EXAMINATION: 2 view chest radiograph Procedure Note Luna Perez MD - 10/06/2024 EXAMINATION: 2 view chest radiograph IMPRESSION: Comparison with chest radiograph dated 07/12/2025. Median sternotomy wires are present. Aortic valve replacement is present. Small lung volumes. Unchanged scarring of the left mid lung. Mild bibasilar atelectasis. No pleural effusion or pneumothorax. Cardiomediastinal silhouette is unchanged. Dictated by: Jose Martin Cazares M.D. The radiology attending physician has personally reviewed this study, and had reviewed and/or edited this written report and agrees with it. Electronically signed by: Luna Perez M.D. Priscilla Sarmiento MD IMG XR PROCEDURES Final Resu lt * ECG 12-LEAD (10/06/2024 1:07 PM HOTEL REGISTRATION CLERK) Narrative [facility] - 10/06/2024 1:07 PM HOTEL REGISTRATION CLERK Nupur Orozco MD 10/06/2024 1:08 PM ECG 12 lead Date/Time: 10/06/2024 1:07 PM Performed by: Nupur Orozco MD Authorized by: Jaylen Petersen MD Comments: EKG Interpretation Interpreted by ED physician in absence of a remote mortgage underwriter Ventricular rate: 65 bpm Rhythm: sinus with PACs [place]: Normal Intervals: 1st degree av block, wide QRS Other findings: no acute ischemia Interpretation: abnormal EKG, LBBB, ectopy Compared to priors: no priors for comparison us Aneta Castellanos MD ECG ORDERABLES Final Result [facility] * POCT glucose (10/06/2024 12:48 PM HOTEL REGISTRATION CLERK) Glucose, POC 112 70 - 199 mg/dL Blood 10/06/2024 12:4 8 PM HOTEL REGISTRATION CLERK 10/06/2024 12:48 PM HOTEL REGISTRATION CLERK us Notinfile Unknown LAB POCT ORDERABLES - DEVICE F inal Result Performing Organization Address City/[facility]/ZIP Co de Phone Number [facility] [place] [address] * eGFR (10/03/2024 4:00 PM HOTEL REGISTRATION CLERK) eGFR 73 >=60 mL/min/1. 73 m2 Comment: Interpretive Data Reference Interval Normal >/= 90 mL/min/1.73m2 Mildly decreased* 60 - 89 mL/min/1.73m2 Mildly to moderately decreased 45 - 59 mL/min/1.73m2 Moderately to severely decreased 30 - 44 mL/min/1.73m2 Severely decreased 15 - 29 mL/min/1.73m2 Kidney Failure < 15 mL/min/1.73m2 *Relative to young adult level Estimated glomerular [...] interpretive data was last reviewed 2021. Blood 10/03/2024 4:00 PM HOTEL REGISTRATION CLERK 10/03/2024 4:23 PM HOTEL REGISTRATION CLERK us Crescencio Vázquez MD LAB BLOOD ORDERABLES Final Resul t [facility] Department [place] [address] * Differential, auto (10/03/2024 4:00 PM HOTEL REGISTRATION CLERK) Neutrophil abs 3.7 1.5 - 6.5 K/cumm Imm gran abs 0.0 0.0 - 0.1 K/cumm [facility] Lymphocyte abs 1.5 0.8 - 3.3 K/cumm [facility] Monocyte abs 0.4 0.2 - 0.8 K/cumm [facility] Eosinophil abs 0.2 0.0 - 0.5 K/cumm [facility] Basophil abs 0.0 0.0 - 0.1 K/cumm [facility] Neutrophil pct 63.5 % [facility] Comment: Interpretive Data Percent cell count reference ranges are not reported, since discordance with absolute values may lead to misinterpretation of CBC data. Current Interpretive Data was last revised on 2017. Imm gran pct 0.3 % [facility] Comment: Interpretive Data Percent cell count reference ranges are not reported, since discordance with absolute values may lead to misinterpretation of CBC data. Current Interpretive Data was last revised on 2017. Lymphocyte pct 26.0 % [facility] Comment: Interpretive Data Percent cell count reference ranges are not reported, since discordance with absolute values may lead to misinterpretation of CBC data. Current Interpretive Data was last revised on 2017. Monocyte pct 7.1 % [facility] Comment: Interpretive Data Percent cell count reference ranges are not reported, since discordance with absolute values may lead to misinterpretation of CBC data. Current Interpretive Data was last revised on 2017. Eosinophil pct 2.6 % [facility] Comment: Interpretive Data Percent cell count reference ranges are not reported, since discordance with absolute values may lead to misinterpretation of CBC data. Current Interpretive Data was last revised on 2017. Basophil pct 0.5 % [facility] Comment: Interpretive Data Percent cell count reference ranges are not reported, since discordance with absolute values may lead to misinterpretation of CBC data. Current Interpretive Data was last revised on 2017. Blood 10/03/2024 4:00 PM HOTEL REGISTRATION CLERK 10/03/2024 4:18 PM HOTEL REGISTRATION CLERK us Crescencio Vázquez MD LAB BLOOD ORDERABLES Final Resul t [facility] Department [place] [address] * (ABNORMAL) CBC with auto differential (10/03/2024 4:00 PM HOTEL REGISTRATION CLERK) WBC 5.8 3.8 - 9.9 K/cumm Hgb 10.8(L) 13.0 - 17.5 g/dL [facility] Hct 32.5(L) 38.9 - 50.3 % [facility] Plt 143(L) 150 - 400 K/cumm [facility] MPV 11.6 9.1 - 12.3 fL [facility] RBC 3.54(L) 4.30 - 5.80 M/cumm [facility] MCV 91.8 81.3 - 96.4 fL [facility] MCH 30.5 27.1 - 33.3 pg [facility] MCHC 33.2 32.3 - 35.7 g/dL [facility] RDW CV 14.4 11.1 - 14.9 % [facility] RDW SD 48.6(H) 35.7 - 48.1 fL [facility] NRBC abs 0.00 0.00 - 0.01 K/cumm [facility] Blood 10/03/2024 4:00 PM HOTEL REGISTRATION CLERK 10/03/2024 4:18 PM HOTEL REGISTRATION CLERK us Crescencio Vázquez MD LAB BLOOD ORDERABLES Final Resul t Performing Organization Address [facility] Co de Phone Number [facility] Department [place] [address] * Basic metabolic panel (10/03/2024 4:00 PM HOTEL REGISTRATION CLERK) Sodium 142 135 - 145 mmol/L Potassium, pl 3.8 3.3 - 4.9 mmol/L [facility] Chloride 104 97 - 110 mmol/L [facility] CO2 28 22 - 32 mmol/L [facility] Anion gap 10 2 - 15 mmol/L [facility] BUN 17 6 - 25 mg/dL [facility] Creatinine 1.01 0.80 - 1.30 mg/dL [facility] Glucose 179 70 - 199 mg/dL [facility] Comment: Interpretive Data Fasting glucose >/= 126 mg/dl is diagnostic for diabetes. Fasting is defined as no caloric intake [...] interpretive data was last revised 2022. Calcium 8.5 8.5 - 10.3 mg/dL [facility] Blood 10/03/2024 4:00 PM HOTEL REGISTRATION CLERK 10/03/2024 4:18 PM HOTEL REGISTRATION CLERK Crescencio Vázquez MD LAB BLOOD ORDERABLES Final Resul t Performing Organization Address [facility]/ZIP Co de Phone Number [facility] Department [place] [address] * (ABNORMAL) POCT Activated clotting time, low range (10/03/2024 2:14 PM HOTEL REGISTRATION CLERK) ACT 181(H) 123 - 168 sec POC Performer [id number] [facility] POC Device Number [id number] [facility] Blood 10/03/2024 2:14 PM HOTEL REGISTRATION CLERK 10/03/2024 2:14 PM HOTEL REGISTRATION CLERK us Nigel Holman MD LAB POCT ORDERABLES - DEVICE Final Result [facility] Department [place] [address] * RIGHT AND LEFT HEART CATHETERIZATION (10/03/2024 12:42 PM HOTEL REGISTRATION CLERK) Anatomical Region Laterality Modality X-Ray Angiograph y Impressions 10/03/2024 2:26 PM HOTEL REGISTRATION CLERK Severe stenosis of the mid LAD with a calcified nodule status post shockwave lithotripsy with excellent result Apical LAD wire dissection Right radial TR band placement and manual compression of the venous site THERAPEUTIC RECOMMENDATIONS: Continue aggressive medical therapy and risk factor modification Continue to monitor the afternoon given wire dissection and continued to ensure he is asymptomatic Aspirin Plavix and Eliquis for 2 weeks' time and then he may be back on just Plavix and Eliquis Continue diuretic usage Cardiac rehab and increase physical activity I was present during the entire procedure and personally dictated or confirmed the above report. Nigel Holman MD Narrative 10/03/2024 2:26 PM HOTEL REGISTRATION CLERK Table formatting from the original result was not included. Procedure: CORONARY ANGIOGRAM / RIGHT HEART CATHETERIZATION/ percutaneous coronary intervention Patient: Ahskan Pryor is a 84 y.o. male : 1940 MR number: [id number] Date of Service: 10/03/2024 Standards Analyst: Nigel Holman MD Fellow: Crescencio Vázquez MD Referring physician: Rehan Sheth MD INDICATION: CHF/Dyspnea NYHA Class 3 PATIENT CLINICAL PROFILE: Ashkan Pryor is a 84 y.o. male with a history of Hypertension, aortic valve replacement and recent PCI to his left main LAD and circumflex who presents for worsening shortness of breath and atypical chest pain. He now presents for right and left heart catheterization PROCEDURE: The risks, benefits and alternatives of the procedures and moderate sedation were explained to the patient and informed consent was obtained. The patient was brought to the record label intern and placed on the table Bilateral groins were prepped and draped in the usual sterile fashion. The right radial artery site and right IJ venous site was infiltrated with 2% lidocaine. I provided direct face to face monitoring of intravenous conscious sedation which was administered using Fentanyl and Versed by an independently certified nurse for a total of 60 minutes. The artery was accessed using a Micropuncture kit and the modified Seldinger technique with a Micro needle, a wire was threaded into the vessel, and a 5/6Fr Sheath was advanced over the wire into the vessel. The vein was accessed using a Micropuncture kit and the modified Seldinger technique with a Micro needle, a wire was threaded into the vessel, and a 7Fr Sheath was advanced over the wire into the vessel. Left Coronary Artery Angiogram was performed using a6fr xb 3.0 Catheter. Right Coronary Artery Angiogram was not performed Right heart catheterization preformed with 7 Jamaican arrow [place] At the end of the procedure, arteriotomy was successfully closed and hemostasis achieved by a TR band and manual compression Patient was transferred to the holding area in stable condition. There were no apparent complications. RESULTS: Hemodynamics: RA Pressure: 10/10 mean 7mmhg RV Presure: 52/10mmHG PA Pressure: 58/24 mean 34 PCWP mean: 25mmHG CO/CI: 6.09/2.71 AO saturation 95% Mixed venous saturation Coronary Arteriography: Left main coronary: Left main coronary artery is a large vessel supplies an LAD and circumflex. There are stents in the left main that are widely patent. Left Anterior Decending: Anterior descending artery is a large vessel gives rise to 2 moderate-sized diagonal branches and ends in a apical LAD. The stents are widely patent but in the proximal to midportion there was an eccentric calcified lesion that appears to be possibly severe Left Circumflex: Circumflex is a large dominant vessel supplies several small obtuse marginal vessel large posterior descending artery. Stents are widely patent with no narrowings present Right Coronary Artery: Right coronary artery is was demonstrated to be non dominant was not injected Intravascular ultrasound and percutaneous coronary intervention After the diagnostic portion the case was felt that further evaluation of the eccentric defect in the mid LAD was warranted. Heparin was administered to obtain ACT of greater than 250 was maintained throughout the case. A run-through wire was placed easily down into the apical LAD. Next we took our IVUS catheter down that showed a calcified nodule with eccentric narrowing of about 80%. We then took a 4 0 shockwave balloon and performed 100 pulses of shockwave lithotripsy to this area. We then took a 4 0 x 18 mm resolute drug-eluting stent and inflated up to 12 atmospheres. We then took a 4 5 x 12 NC emerge and post dilated up to 12 atmospheres. We repeated our IVUS catheter run that showed excellent stent apposition the distal edge with no dissection with excellent luminal gain. There was excellent stent apposition of the proximal edge. The luminal area was sufficient and it was 11 mm2 at the area that was narrowed. We then took our final angiographic views showed BLAS 3 flow into the LAD and diagonal branches. Unfortunately down near the apical LAD where the tip of the wire was there was decreased flow. We gave potent amount of vasodilators and reimage that showed some slight episcopal of flow. Upon review it looks as though our distal wire may have caused a slight dissection in the apical LAD. Given the small size and distal location we elected to medically manage this dissection. He had no symptoms related to it and had some improvement in flow at case end. We then turned our attention to the right radial artery whereby a TR band was placed COMPLICATIONS: None DIAGNOSTIC us Rehan Sheth MD CV CARDIAC CATH PROCED URES Final Result * (ABNORMAL) POCT Activated clotting time, low range (10/03/2024 12:42 PM HOTEL REGISTRATION CLERK) [facility] ACT 252(H) 123 - 168 sec POC Performer [id number] [facility] POC Device Number [id number] [facility] Blood 10/03/2024 12:4 2 PM HOTEL REGISTRATION CLERK 10/03/2024 12:42 PM HOTEL REGISTRATION CLERK us Nigel Holman MD LAB POCT ORDERABLES - DEVICE Final Result [facility] Department [place] [address] * Type and screen (10/03/2024 12:20 PM HOTEL REGISTRATION CLERK) [facility] Lit, indirect Negative ABO Rh A Positive [facility] Blood 10/03/2024 12:2 0 PM HOTEL REGISTRATION CLERK 10/03/2024 12:39 PM HOTEL REGISTRATION CLERK Narrative [facility] - 10/03/2024 1:32 PM HOTEL REGISTRATION CLERK Has the patient had Daratumumab or Isatuximab in the past 6 months?->Unknown Nigel Holman MD LAB BLOOD BANK TEST ORDERABL ES Final Result Performing Organization Address [facility] de Phone Number [facility] [place] [address] * (ABNORMAL) POCT Activated clotting time, low range (10/03/2024 12:06 PM HOTEL REGISTRATION CLERK) Pathologist [facility] ACT 240(H) 123 - 168 sec POC Performer [id number] [facility] POC Device Number [id number] [facility] Blood 10/03/2024 12:0 6 PM HOTEL REGISTRATION CLERK 10/03/2024 12:06 PM HOTEL REGISTRATION CLERK Nigel Holman MD LAB POCT ORDERABLES - DEVICE Final Result Performing Organization Address [facility] de Phone Number [facility] [place] [address] * (ABNORMAL) POCT oxyhemoglobin (10/03/2024 11:47 AM HOTEL REGISTRATION CLERK) PC SUPPORT SPECIALIST Oxyhemoglobin 95.3 >=65.0 % [facility]IST Hemoglobin 11.7(L) 13.0 - 17.5 g/dL [facility] PC SUPPORT SPECIALIST O2 content 15.5 15.0 - 22.0 Vol % [facility] Anatomic Site aPOC Aorta descend [facility] Blood 10/03/2024 11:4 7 AM HOTEL REGISTRATION CLERK 10/03/2024 11:47 AM HOTEL REGISTRATION CLERK Nigel Holman MD LAB POCT ORDERABLES - DEVICE Final Result Performing Organization Address [facility] de Phone [facility] [place] [address] * (ABNORMAL) POCT oxyhemoglobin (10/03/2024 11:45 AM HOTEL REGISTRATION CLERK) [facility] PC SUPPORT SPECIALIST Oxyhemoglobin 67.9 >=65.0 % PC SUPPORT SPECIALIST Hemoglobin 11.0(L) 13.0 - 17.5 g/dL [facility] PC SUPPORT SPECIALIST O2 content 10.4(L) 15.0 - 22.0 Vol % [facility] Anatomic Site aPOC Pulm Art main [facility] Blood 10/03/2024 11:4 5 AM HOTEL REGISTRATION CLERK 10/03/2024 11:45 AM HOTEL REGISTRATION CLERK Nigel Holman MD LAB POCT ORDERABLES - DEVICE Final Result [facility] Department [place] [address] * (ABNORMAL) CBC without differential (10/03/2024 11:45 AM HOTEL REGISTRATION CLERK) [facility] WBC 6.8 3.8 - 9.9 K/cumm Hgb 11.3(L) 13.0 - 17.5 g/dL [facility] Hct 34.2(L) 38.9 - 50.3 % [facility] Plt 142(L) 150 - 400 K/cumm [facility] MPV 11.3 9.1 - 12.3 fL [facility] RBC 3.65(L) 4.30 - 5.80 M/cumm [facility] MCV 93.7 81.3 - 96.4 fL [facility] MCH 31.0 27.1 - 33.3 pg [facility] MCHC 33.0 32.3 - 35.7 g/dL [facility] RDW CV 14.1 11.1 - 14.9 % [facility] RDW SD 49.1(H) 35.7 - 48.1 fL [facility] NRBC abs 0.00 0.00 - 0.01 K/cumm [facility] Blood 10/03/2024 11:4 5 AM HOTEL REGISTRATION CLERK 10/03/2024 11:51 AM HOTEL REGISTRATION CLERK Narrative [facility] - 10/03/2024 12:12 PM HOTEL REGISTRATION CLERK To be drawn after hydration bolus complete us Nigel Holman MD LAB BLOOD ORDERABLES Final R esult Performing Organization Address [facility] Co de Phone Number [facility] Department [place] [address] * (ABNORMAL) POCT oxyhemoglobin (10/03/2024 11:44 AM HOTEL REGISTRATION CLERK) PC SUPPORT SPECIALIST Oxyhemoglobin 69.1 >=65.0 % PC SUPPORT SPECIALIST Hemoglobin 11.3(L) 13.0 - 17.5 g/dL [facility] PC SUPPORT SPECIALIST O2 content 10.9(L) 15.0 - 22.0 Vol % [facility] Anatomic Site aPOC Pulm Art main [facility] Blood 10/03/2024 11:4 4 AM HOTEL REGISTRATION CLERK 10/03/2024 11:44 AM HOTEL REGISTRATION CLERK us Nigel Holman MD LAB POCT ORDERABLES - DEVICE Final Result Performing Organization Address [facility] Co de Phone Number [facility] Department [place] [address] * POCT glucose (10/03/2024 8:45 AM HOTEL REGISTRATION CLERK) Glucose, POC 117 70 - 199 mg/dL Blood 10/03/2024 8:45 AM HOTEL REGISTRATION CLERK 10/03/2024 8:45 AM HOTEL REGISTRATION CLERK Nigel Holman MD LAB POCT ORDERABLES - DEVICE Final Result Performing Organization Address [facility] Co de Phone Number [facility] Department [place] [address] * Basic metabolic panel (09/29/2024 9:42 AM HOTEL REGISTRATION CLERK) Glucose 99 65 - 99 mg/dL [facility] Comment: Fasting reference interval BUN 23 7 - 25 mg/dL Melodie Villanueva Creatinine 0.96 0.70 - 1.22 mg/dL Melodie Villanueva eGFR 77 > OR = 60 mL/min/1.7 3m2 Melodie Villanueva BUN/creat ratio SEE NOTE: (calc) Melodie Villanueva Comment: Not Reported: BUN and Creatinine are within reference range. Sodium 142 135 - 146 mmol/L Melodie HaydenArrowhead Automated SystemsMin [place] Potassium, pl 4.0 3.5 - 5.3 mmol/L Melodie HaydenArrowhead Automated SystemsMin [place] Chloride 103 98 - 110 mmol/L Melodie HaydenArrowhead Automated SystemsMin [place] CO2 32 20 - 32 mmol/L Melodie [employer] [place] Calcium 8.9 8.6 - 10.3 mg/dL Melodie [facility] [employer] [facility] Blood 09/29/2024 9:42 AM HOTEL REGISTRATION CLERK 09/29/2024 9:42 AM HOTEL REGISTRATION CLERK us Rehan Sheth MD LAB BLOOD ORDERABLES F inal Result MELODIE [facility] [address] [place] [address] * (ABNORMAL) eGFR (09/24/2024 5:03 PM HOTEL REGISTRATION CLERK) eGFR 55(L) >=60 mL/min/1. 73 m2 Comment: Interpretive Data Reference Interval Normal >/= 90 mL/min/1.73m2 Mildly decreased* 60 - 89 mL/min/1.73m2 Mildly to moderately decreased 45 - 59 mL/min/1.73m2 Moderately to severely decreased 30 - 44 mL/min/1.73m2 Severely decreased 15 - 29 mL/min/1.73m2 Kidney Failure < 15 mL/min/1.73m2 *Relative to young adult level Estimated glomerular [...] interpretive data was last reviewed 2021. Blood 09/24/2024 5:03 PM HOTEL REGISTRATION CLERK 09/24/2024 5:24 PM HOTEL REGISTRATION CLERK us Rehan Sheth MD LAB BLOOD ORDERABLES F inal Result [facility] Department [place] [address] * Differential, auto (09/24/2024 5:03 PM HOTEL REGISTRATION CLERK) Neutrophil abs 3.6 1.5 - 6.5 K/cumm Imm gran abs 0.0 0.0 - 0.1 K/cumm [facility] Lymphocyte abs 1.9 0.8 - 3.3 K/cumm [facility] Monocyte abs 0.6 0.2 - 0.8 K/cumm [facility] Eosinophil abs 0.2 0.0 - 0.5 K/cumm [facility] Basophil abs 0.0 0.0 - 0.1 K/cumm [facility] Neutrophil pct 56.5 % [facility] Comment: Interpretive Data Percent cell count reference ranges are not reported, since discordance with absolute values may lead to misinterpretation of CBC data. Current Interpretive Data was last revised on 2017. Imm gran pct 0.6 % [facility] Comment: Interpretive Data Percent cell count reference ranges are not reported, since discordance with absolute values may lead to misinterpretation of CBC data. Current Interpretive Data was last revised on 2017. Lymphocyte pct 30.0 % [facility] Comment: Interpretive Data Percent cell count reference ranges are not reported, since discordance with absolute values may lead to misinterpretation of CBC data. Current Interpretive Data was last revised on 2017. Monocyte pct 9.1 % [facility] Comment: Interpretive Data Percent cell count reference ranges are not reported, since discordance with absolute values may lead to misinterpretation of CBC data. Current Interpretive Data was last revised on 2017. Eosinophil pct 3.3 % [facility] Comment: Interpretive Data Percent cell count reference ranges are not reported, since discordance with absolute values may lead to misinterpretation of CBC data. Current Interpretive Data was last revised on 2017. Basophil pct 0.5 % [facility] Comment: Interpretive Data Percent cell count reference ranges are not reported, since discordance with absolute values may lead to misinterpretation of CBC data. Current Interpretive Data was last revised on 2017. Blood 09/24/2024 5:03 PM HOTEL REGISTRATION CLERK 09/24/2024 5:24 PM HOTEL REGISTRATION CLERK us Rehan Sheth MD LAB BLOOD ORDERABLES F inal Result [facility] Department [place] [address] * (ABNORMAL) Pro B-type natriuretic peptide (09/24/2024 5:03 PM HOTEL REGISTRATION CLERK) NT-proBNP 2,036(H) <=450 pg/mL Comment: Interpretive Comments: A. Dyspnea in Acute Care Setting All Ages: < 300 pg/ml, acute heart failure unlikely. < 50 yrs: 300 - 450 pg/ml, further investigation warranted. > 450 pg/ml, acute heart failure likely. 50 - 74 yrs: 300 - 900 pg/ml, further investigation warranted. > 900 pg/ml, acute heart failure likely . > or = 75 yrs: 450 - 1800 pg/ml, further investigation warranted. > 1800 pg/ml, acute heart failure likely. B. Non-acute Setting < 75 yrs < 125 pg/ml, rules out heart failure. > or = 125 pg/ml, further investigation warranted. > or = 75 yrs < 450 pg/ml, rules out heart failure. > or = 450 pg/ml, further investigation [...] Interpretive Data Last Revised Date: 2018. Blood 09/24/2024 5:03 PM HOTEL REGISTRATION CLERK 09/24/2024 5:24 PM HOTEL REGISTRATION CLERK Rehan Sheth MD LAB BLOOD ORDERABLES F inal Result Performing Organization Address City/[facility]/ZIP Co de Phone Number [facility] Department [place] [address] * (ABNORMAL) CBC with auto differential (09/24/2024 5:03 PM HOTEL REGISTRATION CLERK) [facility] WBC 6.3 3.8 - 9.9 K/cumm Hgb 11.7(L) 13.0 - 17.5 g/dL [facility] Hct 35.3(L) 38.9 - 50.3 % [facility] Plt 184 150 - 400 K/cumm [facility] MPV 11.3 9.1 - 12.3 fL [facility] RBC 3.76(L) 4.30 - 5.80 M/cumm [facility] MCV 93.9 81.3 - 96.4 fL [facility] MCH 31.1 27.1 - 33.3 pg [facility] MCHC 33.1 32.3 - 35.7 g/dL [facility] RDW CV 14.6 11.1 - 14.9 % [facility] RDW SD 50.4(H) 35.7 - 48.1 fL [facility] NRBC abs 0.00 0.00 - 0.01 K/cumm [facility] Blood 09/24/2024 5:03 PM HOTEL REGISTRATION CLERK 09/24/2024 5:24 PM HOTEL REGISTRATION CLERK Rehan Sheth MD LAB BLOOD ORDERABLES F inal Result Performing Organization Address City/[facility]/ZIP Co de Phone Number [facility] Department [place] [address] * (ABNORMAL) Basic metabolic panel (09/24/2024 5:03 PM HOTEL REGISTRATION CLERK) [facility] Sodium 145 135 - 145 mmol/L Potassium, pl 3.7 3.3 - 4.9 mmol/L [facility] Chloride 107 97 - 110 mmol/L [facility] CO2 30 22 - 32 mmol/L [facility] Anion gap 8 2 - 15 mmol/L [facility] BUN 31(H) 6 - 25 mg/dL [facility] Creatinine 1.27 0.80 - 1.30 mg/dL [facility] Glucose 89 70 - 199 mg/dL [facility] Comment: Interpretive Data Fasting glucose >/= 126 mg/dl is diagnostic for diabetes. Fasting is defined as no caloric intake [...] interpretive data was last revised 2022. Calcium 9.0 8.5 - 10.3 mg/dL [facility] Blood 09/24/2024 5:03 PM HOTEL REGISTRATION CLERK 09/24/2024 5:24 PM HOTEL REGISTRATION CLERK Rehan Sheth MD LAB BLOOD ORDERABLES F inal Result [facility] Department [place] [address] * ECG 12 lead (09/24/2024 4:01 PM HOTEL REGISTRATION CLERK) Rehan Sheth MD ECG ORDERABLES Edited Result - Final * eGFR (09/14/2024 8:23 AM HOTEL REGISTRATION CLERK) [facility] eGFR 63 >=60 mL/min/1. 73 m2 Comment: Interpretive Data Reference Interval Normal >/= 90 mL/min/1.73m2 Mildly decreased* 60 - 89 mL/min/1.73m2 Mildly to moderately decreased 45 - 59 mL/min/1.73m2 Moderately to severely decreased 30 - 44 mL/min/1.73m2 Severely decreased 15 - 29 mL/min/1.73m2 Kidney Failure < 15 mL/min/1.73m2 *Relative to young adult level Estimated glomerular [...] last reviewed 2021. Blood 09/14/2024 8:23 AM HOTEL REGISTRATION CLERK 09/14/2024 8:45 AM HOTEL REGISTRATION CLERK us Dalila Torres MD LAB BLOOD ORDERABLES Fi nal Result [facility] Department [place] [address] * (ABNORMAL) Basic metabolic panel (09/14/2024 8:23 AM HOTEL REGISTRATION CLERK) Sodium 140 135 - 145 mmol/L Potassium, pl 4.0 3.3 - 4.9 mmol/L [facility] Chloride 104 97 - 110 mmol/L [facility] CO2 27 22 - 32 mmol/L [facility] Anion gap 9 2 - 15 mmol/L [facility] BUN 28(H) 6 - 25 mg/dL [facility] Creatinine 1.14 0.80 - 1.30 mg/dL [facility] Glucose 108 70 - 199 mg/dL [facility] Comment: Interpretive Data Fasting glucose >/= 126 mg/dl is diagnostic for diabetes. Fasting is defined as no caloric intake [...] Calcium 8.8 8.5 - 10.3 mg/dL [facility] Blood 09/14/2024 8:23 AM HOTEL REGISTRATION CLERK 09/14/2024 8:45 AM HOTEL REGISTRATION CLERK us Dalila Torres MD LAB BLOOD ORDERABLES Fi nal Result Performing Organization Address City/[facility]/ZIP Co de Phone Number [facility] Department [place] [address] * (ABNORMAL) eGFR (09/13/2024 9:57 PM HOTEL REGISTRATION CLERK) eGFR 49(L) >=60 mL/min/1. 73 m2 Comment: Interpretive Data Reference Interval Normal >/= 90 mL/min/1.73m2 Mildly decreased* 60 - 89 mL/min/1.73m2 Mildly to moderately decreased 45 - 59 mL/min/1.73m2 Moderately to severely decreased 30 - 44 mL/min/1.73m2 Severely decreased 15 - 29 mL/min/1.73m2 Kidney Failure < 15 mL/min/1.73m2 *Relative to young adult level Estimated glomerular [...] last reviewed 2021. Blood 09/13/2024 9:57 PM HOTEL REGISTRATION CLERK 09/13/2024 10:27 PM HOTEL REGISTRATION CLERK us Dalila Torres MD LAB BLOOD ORDERABLES Fi nal Result Performing Organization Address City/[facility]/ZIP Co de Phone Number [facility] Department [place] [address] * (ABNORMAL) CBC without differential (09/13/2024 9:57 PM HOTEL REGISTRATION CLERK) Pathologist [facility] WBC 6.4 3.8 - 9.9 K/cumm Hgb 11.1(L) 13.0 - 17.5 g/dL [facility] Hct 33.4(L) 38.9 - 50.3 % [facility] Plt 152 150 - 400 K/cumm [facility] MPV 11.2 9.1 - 12.3 fL [facility] RBC 3.53(L) 4.30 - 5.80 M/cumm [facility] MCV 94.6 81.3 - 96.4 fL [facility] MCH 31.4 27.1 - 33.3 pg [facility] MCHC 33.2 32.3 - 35.7 g/dL [facility] RDW CV 14.9 11.1 - 14.9 % [facility] RDW SD 52.3(H) 35.7 - 48.1 fL [facility] NRBC abs 0.00 0.00 - 0.01 K/cumm [facility] Blood 09/13/2024 9:57 PM HOTEL REGISTRATION CLERK 09/13/2024 10:27 PM HOTEL REGISTRATION CLERK us Dalila Torres MD LAB BLOOD ORDERABLES Fi nal Result Performing Organization Address City/[facility] Co de Phone Number [facility] Department [place] [address] * Magnesium (09/13/2024 9:57 PM HOTEL REGISTRATION CLERK) [facility] Magnesium 2.1 1.4 - 2.5 mg/dL Blood 09/13/2024 9:57 PM HOTEL REGISTRATION CLERK 09/13/2024 10:27 PM HOTEL REGISTRATION CLERK us Dalila Torres MD LAB BLOOD ORDERABLES Fi nal Result Performing Organization Address [facility] Co de Phone Number [facility] Department [place] [address] * (ABNORMAL) Basic metabolic panel (09/13/2024 9:57 PM HOTEL REGISTRATION CLERK) [facility] Sodium 139 135 - 145 mmol/L Potassium, pl 3.7 3.3 - 4.9 mmol/L [facility] Chloride 102 97 - 110 mmol/L [facility] CO2 28 22 - 32 mmol/L [facility] Anion gap 9 2 - 15 mmol/L [facility] BUN 35(H) 6 - 25 mg/dL [facility] Creatinine 1.41(H) 0.80 - 1.30 mg/dL [facility] Glucose 126 70 - 199 mg/dL [facility] Comment: Interpretive Data Fasting glucose >/= 126 mg/dl is diagnostic for diabetes. Fasting is defined as no caloric intake [...] 8.7 8.5 - 10.3 mg/dL [facility] Blood 09/13/2024 9:57 PM HOTEL REGISTRATION CLERK 09/13/2024 10:27 PM HOTEL REGISTRATION CLERK us Dalila Torres MD LAB BLOOD ORDERABLES Fi nal Result [facility] Department [place] [address] * (ABNORMAL) eGFR (09/12/2024 8:13 PM HOTEL REGISTRATION CLERK) [facility] eGFR 51(L) >=60 mL/min/1. 73 m2 Comment: Interpretive Data Reference Interval Normal >/= 90 mL/min/1.73m2 Mildly decreased* 60 - 89 mL/min/1.73m2 Mildly to moderately decreased 45 - 59 mL/min/1.73m2 Moderately to severely decreased 30 - 44 mL/min/1.73m2 Severely decreased 15 - 29 mL/min/1.73m2 Kidney Failure < 15 mL/min/1.73m2 *Relative to young adult level Estimated glomerular [...] last reviewed 2021. Blood 09/12/2024 8:13 PM HOTEL REGISTRATION CLERK 09/12/2024 8:55 PM HOTEL REGISTRATION CLERK us Dalila Torres MD LAB BLOOD ORDERABLES Fi nal Result [facility] Department [place] [address] * (ABNORMAL) CBC without differential (09/12/2024 8:13 PM HOTEL REGISTRATION CLERK) WBC 7.4 3.8 - 9.9 K/cumm Hgb 11.0(L) 13.0 - 17.5 g/dL [facility] Hct 33.7(L) 38.9 - 50.3 % [facility] Plt 181 150 - 400 K/cumm [facility] MPV 11.1 9.1 - 12.3 fL [facility] RBC 3.60(L) 4.30 - 5.80 M/cumm [facility] MCV 93.6 81.3 - 96.4 fL [facility] MCH 30.6 27.1 - 33.3 pg [facility] MCHC 32.6 32.3 - 35.7 g/dL [facility] RDW CV 14.8 11.1 - 14.9 % [facility] RDW SD 51.2(H) 35.7 - 48.1 fL [facility] NRBC abs 0.00 0.00 - 0.01 K/cumm [facility] Blood 09/12/2024 8:13 PM HOTEL REGISTRATION CLERK 09/12/2024 8:54 PM HOTEL REGISTRATION CLERK Dalila Torres MD LAB BLOOD ORDERABLES Fi nal Result Performing Organization Address City/[facility] Co de Phone Number [facility] [place] [address] * Magnesium (09/12/2024 8:13 PM HOTEL REGISTRATION CLERK) Pathologist [facility] Magnesium 2.0 1.4 - 2.5 mg/dL Blood 09/12/2024 8:13 PM HOTEL REGISTRATION CLERK 09/12/2024 8:55 PM HOTEL REGISTRATION CLERK Dalila Torres MD LAB BLOOD ORDERABLES Fi nal Result Performing Organization Address [facility] de Phone Number [facility] [place] [address] * (ABNORMAL) Basic metabolic panel (09/12/2024 8:13 PM HOTEL REGISTRATION CLERK) Pathologist [facility] Sodium 141 135 - 145 mmol/L Potassium, pl 3.8 3.3 - 4.9 mmol/L [facility] Chloride 106 97 - 110 mmol/L [facility] CO2 26 22 - 32 mmol/L [facility] Anion gap 9 2 - 15 mmol/L [facility] BUN 31(H) 6 - 25 mg/dL [facility] Creatinine 1.37(H) 0.80 - 1.30 mg/dL [facility] Glucose 102 70 - 199 mg/dL [facility] Comment: Interpretive Data Fasting glucose >/= 126 mg/dl is diagnostic for diabetes. Fasting is defined as no caloric intake [...] 8.4(L) 8.5 - 10.3 mg/dL [facility] Blood 09/12/2024 8:13 PM HOTEL REGISTRATION CLERK 09/12/2024 8:55 PM HOTEL REGISTRATION CLERK Dalila Torres MD LAB BLOOD ORDERABLES Fi nal Result Performing Organization Address City/[facility] Co de Phone Number [facility] [place] [address] * Sodium, urine, random (09/12/2024 12:36 PM HOTEL REGISTRATION CLERK) Sodium, ur 72 mmol/L Comment: Interpretive Data No reference range established. Current interpretive data was last revised 2018. Urine 09/12/2024 12:3 6 PM HOTEL REGISTRATION CLERK 09/12/2024 4:22 PM HOTEL REGISTRATION CLERK Dalila Torres MD LAB URINE ORDERABLES Fi nal Result Performing Organization Address [facility] Co de Phone Number [facility] [place] [address] * POCT glucose (09/12/2024 7:52 AM HOTEL REGISTRATION CLERK) Glucose, POC 103 70 - 199 mg/dL Blood 09/12/2024 7:52 AM HOTEL REGISTRATION CLERK 09/12/2024 7:52 AM HOTEL REGISTRATION CLERK Dalila Torres MD LAB POCT ORDERABLES - D EVICE Final Result Performing Organization Address [facility] Co de Phone Number [facility] [place] [address] * POCT glucose (09/12/2024 6:21 AM HOTEL REGISTRATION CLERK) Glucose, POC 92 70 - 199 mg/dL Blood 09/12/2024 6:21 AM HOTEL REGISTRATION CLERK 09/12/2024 6:21 AM HOTEL REGISTRATION CLERK Dalila Torres MD LAB POCT ORDERABLES - D EVICE Final Result Performing Organization Address City/[facility]/ZIP Co de Phone Number [facility] [place] [address] * POCT glucose (09/12/2024 2:15 AM HOTEL REGISTRATION CLERK) Glucose, POC 178 70 - 199 mg/dL Blood 09/12/2024 2:15 AM HOTEL REGISTRATION CLERK 09/12/2024 2:15 AM HOTEL REGISTRATION CLERK us Dalila Torres MD LAB POCT ORDERABLES - D EVICE Final Result Performing Organization Address [facility] Co de Phone Number [facility] Department [place] [address] * (ABNORMAL) eGFR (09/11/2024 11:44 PM HOTEL REGISTRATION CLERK) eGFR 54(L) >=60 mL/min/1. 73 m2 Comment: Interpretive Data Reference Interval Normal >/= 90 mL/min/1.73m2 Mildly decreased* 60 - 89 mL/min/1.73m2 Mildly to moderately decreased 45 - 59 mL/min/1.73m2 Moderately to severely decreased 30 - 44 mL/min/1.73m2 Severely decreased 15 - 29 mL/min/1.73m2 Kidney Failure < 15 mL/min/1.73m2 *Relative to young adult level Estimated glomerular [...] reviewed 2021. Blood 09/11/2024 11:4 4 PM HOTEL REGISTRATION CLERK 09/12/2024 12:17 AM HOTEL REGISTRATION CLERK us Dalila Torres MD LAB BLOOD ORDERABLES Fi nal Result Performing Organization Address City/[facility]/ZIP Co de Phone Number [facility] Department [place] [address] * (ABNORMAL) CBC without differential (09/11/2024 11:44 PM HOTEL REGISTRATION CLERK) WBC 7.1 3.8 - 9.9 K/cumm Hgb 11.5(L) 13.0 - 17.5 g/dL [facility] Hct 34.7(L) 38.9 - 50.3 % [facility] Plt 172 150 - 400 K/cumm [facility] MPV 10.9 9.1 - 12.3 fL [facility] RBC 3.70(L) 4.30 - 5.80 M/cumm [facility] MCV 93.8 81.3 - 96.4 fL [facility] MCH 31.1 27.1 - 33.3 pg [facility] MCHC 33.1 32.3 - 35.7 g/dL [facility] RDW CV 14.9 11.1 - 14.9 % [facility] RDW SD 51.1(H) 35.7 - 48.1 fL [facility] NRBC abs 0.00 0.00 - 0.01 K/cumm [facility] Blood 09/11/2024 11:4 4 PM HOTEL REGISTRATION CLERK 09/12/2024 12:17 AM HOTEL REGISTRATION CLERK us Dalila Torres MD LAB BLOOD ORDERABLES Fi nal Result [facility] Department [place] [address] * Magnesium (09/11/2024 11:44 PM HOTEL REGISTRATION CLERK) Magnesium 2.1 1.4 - 2.5 mg/dL Blood 09/11/2024 11:4 4 PM HOTEL REGISTRATION CLERK 09/12/2024 12:17 AM HOTEL REGISTRATION CLERK us Dalila Torres MD LAB BLOOD ORDERABLES Fi nal Result Performing Organization Address City/[facility]/ZIP Co de Phone Number [facility] Department [place] [address] * (ABNORMAL) Basic metabolic panel (09/11/2024 11:44 PM HOTEL REGISTRATION CLERK) [facility] Sodium 142 135 - 145 mmol/L Potassium, pl 3.5 3.3 - 4.9 mmol/L [facility] Chloride 104 97 - 110 mmol/L [facility] CO2 27 22 - 32 mmol/L [facility] Anion gap 11 2 - 15 mmol/L [facility] BUN 30(H) 6 - 25 mg/dL [facility] Creatinine 1.30 0.80 - 1.30 mg/dL [facility] Glucose 74 70 - 199 mg/dL [facility] Comment: Interpretive Data Fasting glucose >/= 126 mg/dl is diagnostic for diabetes. Fasting is defined as no caloric intake [...] 8.8 8.5 - 10.3 mg/dL [facility] Blood 09/11/2024 11:4 4 PM HOTEL REGISTRATION CLERK 09/12/2024 12:17 AM HOTEL REGISTRATION CLERK us Dalila Torres MD LAB BLOOD ORDERABLES Fi nal Result Performing Organization Address [facility] Co de Phone Number [facility] Department [place] [address] * POCT glucose (09/11/2024 8:14 PM HOTEL REGISTRATION CLERK) Glucose, POC 142 70 - 199 mg/dL Blood 09/11/2024 8:14 PM HOTEL REGISTRATION CLERK 09/11/2024 8:14 PM HOTEL REGISTRATION CLERK Dalila Torres MD LAB POCT ORDERABLES - D EVICE Final Result Performing Organization Address [facility] Co de Phone Number [facility] [place] [address] * POCT glucose (09/11/2024 5:23 PM HOTEL REGISTRATION CLERK) Pathologist [facility] Glucose, POC 91 70 - 199 mg/dL Blood 09/11/2024 5:23 PM HOTEL REGISTRATION CLERK 09/11/2024 5:23 PM HOTEL REGISTRATION CLERK Result [facility] [address] Tai MD LAB POCT ORDERABLES - DEVICE Final Result Performing Organization Address [facility] de Phone Number [facility] [place] [address] * Troponin I high-sensitivity 4-hour (09/11/2024 3:10 PM HOTEL REGISTRATION CLERK) [facility] Trop I hs 13 <=35 ng/L Comment: Interpretive Data For further hscTnI resources including the diagnostic algorithm and an aid in interpretation, copy and paste this link: https://bjhlab.testcatalog.org/show/hsTrop-1 Current Interpretive Data last revised 2020. Trop I hs delta -1 ng/L [facility] Trop I hs interp Insignificant [facility] Blood 09/11/2024 3:10 PM HOTEL REGISTRATION CLERK 09/11/2024 3:22 PM HOTEL REGISTRATION CLERK Ricki Ramirez MD LAB BLOOD ORDERABLES Final Result Performing Organization Address [facility] Co de Phone Number [facility] [place] [address] * POCUS Cardiac (09/11/2024 1:58 PM HOTEL REGISTRATION CLERK) Anatomical Region Laterality Modality Other 09/11/2024 1:28 PM HOTEL REGISTRATION CLERK Narrative 09/11/2024 3:02 PM HOTEL REGISTRATION CLERK Performed by: Jose Martin Guevara Cardiac: Exam [...] subxyphoid windows. Electronically signed by Jose Martin Guevaar on August at2:43 PM I have reviewed the images & the resident's interpretation. I agree withthe findings. Electronically signed by Joseph Lucas on August at3:02 PM I have reviewed the images & the resident's interpretation. I agree withthe findings. us Joseph Lucas MD POCUS ORDERABLES Final Re sult * Troponin I high-sensitivity 2-hour (09/11/2024 1:30 PM HOTEL REGISTRATION CLERK) Trop I hs 14 <=35 ng/L Comment: Interpretive Data For further hscTnI resources including the diagnostic algorithm and an aid in interpretation, copy and paste this link: https://bjhlab.testcatalog.org/show/hsTrop-1 Current Interpretive Data last revised 2020. Trop I hs delta 0 ng/L [facility] Trop I hs interp Insignificant [facility] Blood 09/11/2024 1:30 PM HOTEL REGISTRATION CLERK 09/11/2024 2:03 PM HOTEL REGISTRATION CLERK us Ricki Ramirez MD LAB BLOOD ORDERABLES Final Result [facility] Department [place] [address] * (ABNORMAL) Pro B-type natriuretic peptide (09/11/2024 1:30 PM HOTEL REGISTRATION CLERK) NT-proBNP 1,193(H) <=450 pg/mL Comment: Interpretive Comments: A. Dyspnea in Acute Care Setting All Ages: < 300 pg/ml, acute heart failure unlikely. < 50 yrs: 300 - 450 pg/ml, further investigation warranted. > 450 pg/ml, acute heart failure likely. 50 - 74 yrs: 300 - 900 pg/ml, further investigation warranted. > 900 pg/ml, acute heart failure likely . > or = 75 yrs: 450 - 1800 pg/ml, further investigation warranted. > 1800 pg/ml, acute heart failure likely. B. Non-acute Setting < 75 yrs < 125 pg/ml, rules out heart failure. > or = 125 pg/ml, further investigation warranted. > or = 75 yrs < 450 pg/ml, rules out heart failure. > or = 450 pg/ml, further investigation [...] et.al. Eur Heart J. 2006:27:330-337. 2. Cortez Jonathon LEIVA AM. J. AM Renato Cardiol: Cardiovasc Imag. 2009;2: 216- 225. Interpretive Data Last Revised Date: 2018. Blood 09/11/2024 1:30 PM HOTEL REGISTRATION CLERK 09/11/2024 2:04 PM HOTEL REGISTRATION CLERK us Ave De Leon MD LAB BLOOD ORDERABLES Final Result Performing Organization Address City/State/[facility] Co ar Phone Number [facility] Department [place] [address] * XR Chest Pa Lateral 2 Views (09/11/2024 11:13 AM HOTEL REGISTRATION CLERK) Anatomical Region Laterality Modality Body, Chest N/A Computed Radiogr aphy 09/11/2024 11:4 4 AM HOTEL REGISTRATION CLERK Impressions 09/11/2024 11:44 AM HOTEL REGISTRATION CLERK Comparison to 12/21/2023. 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 Heart and mediastinum are unchanged. There is no pneumothorax or pleural effusion. Small lung volumes with scarring in the left midlung that is similar to the prior CT. No new focal pulmonary opacity. Electronically signed by: Eric Balbuena M.D. Narrative 09/11/2024 11:44 AM HOTEL REGISTRATION CLERK EXAMINATION: 2 view chest radiograph Procedure Note [...] (baseline, 2hr, 4hr, 6hr) (09/11/2024 11:03 AM HOTEL REGISTRATION CLERK) Trop I hs 14 <=35 ng/L Comment: Interpretive Data For further hscTnI resources including the diagnostic algorithm and an aid in interpretation, copy and paste this link: https://bjhlab.testcatalog.org/show/hsTrop-1 Current Interpretive Data last revised 2020. Blood 09/11/2024 11:0 3 AM HOTEL REGISTRATION CLERK 09/11/2024 11:20 AM HOTEL REGISTRATION CLERK Joseph Lucas MD LAB BLOOD ORDERABLES Shanna l Result Performing Organization Address City/[facility]/ZIP Co de Phone Number [facility] [place] [address] * (ABNORMAL) eGFR (09/11/2024 11:03 AM HOTEL REGISTRATION CLERK) eGFR 49(L) >=60 mL/min/1. 73 m2 Comment: Interpretive Data Reference Interval Normal >/= 90 mL/min/1.73m2 Mildly decreased* 60 - 89 mL/min/1.73m2 Mildly to moderately decreased 45 - 59 mL/min/1.73m2 Moderately to severely decreased 30 - 44 mL/min/1.73m2 Severely decreased 15 - 29 mL/min/1.73m2 Kidney Failure < 15 mL/min/1.73m2 *Relative to young adult level Estimated glomerular [...] reviewed 2021. Blood 09/11/2024 11:0 3 AM HOTEL REGISTRATION CLERK 09/11/2024 11:20 AM HOTEL REGISTRATION CLERK Joseph Lucas MD LAB BLOOD ORDERABLES Shanna l Result Performing Organization Address City/[facility]/ZIP Co de Phone Number [facility] Department [place] [address] * Differential, auto (09/11/2024 11:03 AM HOTEL REGISTRATION CLERK) Neutrophil abs 4.9 1.5 - 6.5 K/cumm Imm gran abs 0.0 0.0 - 0.1 K/cumm [facility] Lymphocyte abs 1.4 0.8 - 3.3 K/cumm [facility] Monocyte abs 0.7 0.2 - 0.8 K/cumm [facility] Eosinophil abs 0.1 0.0 - 0.5 K/cumm [facility] Basophil abs 0.0 0.0 - 0.1 K/cumm [facility] Neutrophil pct 67.9 % [facility] Comment: Interpretive Data Percent cell count reference ranges are not reported, since discordance with absolute values may lead to misinterpretation of CBC data. Current Interpretive Data was last revised on 2017. Imm gran pct 0.4 % [facility] Comment: Interpretive Data Percent cell count reference ranges are not reported, since discordance with absolute values may lead to misinterpretation of CBC data. Current Interpretive Data was last revised on 2017. Lymphocyte pct 19.8 % [facility] Comment: Interpretive Data Percent cell count reference ranges are not reported, since discordance with absolute values may lead to misinterpretation of CBC data. Current Interpretive Data was last revised on 2017. Monocyte pct 9.6 % [facility] Comment: Interpretive Data Percent cell count reference ranges are not reported, since discordance with absolute values may lead to misinterpretation of CBC data. Current Interpretive Data was last revised on 2017. Eosinophil pct 1.9 % [facility] Comment: Interpretive Data Percent cell count reference ranges are not reported, since discordance with absolute values may lead to misinterpretation of CBC data. Current Interpretive Data was last revised on 2017. Basophil pct 0.4 % [facility] Comment: Interpretive Data Percent cell count reference ranges are not reported, since discordance with absolute values may lead to misinterpretation of CBC data. Current Interpretive Data was last revised on 2017. Blood 09/11/2024 11:0 3 AM HOTEL REGISTRATION CLERK 09/11/2024 11:20 AM HOTEL REGISTRATION CLERK Joseph Lucas MD LAB BLOOD ORDERABLES Shanna orozco Result Performing Organization Address [facility] Co de Phone Number [facility] Department [place] [address] * (ABNORMAL) CBC with auto differential (09/11/2024 11:03 AM HOTEL REGISTRATION CLERK) Pathologist [facility] WBC 7.3 3.8 - 9.9 K/cumm Hgb 11.0(L) 13.0 - 17.5 g/dL [facility] Hct 33.2(L) 38.9 - 50.3 % [facility] Plt 175 150 - 400 K/cumm [facility] MPV 10.6 9.1 - 12.3 fL [facility] RBC 3.51(L) 4.30 - 5.80 M/cumm [facility] MCV 94.6 81.3 - 96.4 fL [facility] MCH 31.3 27.1 - 33.3 pg [facility] MCHC 33.1 32.3 - 35.7 g/dL [facility] RDW CV 14.9 11.1 - 14.9 % [facility] RDW SD 51.4(H) 35.7 - 48.1 fL [facility] NRBC abs 0.00 0.00 - 0.01 K/cumm [facility] Blood (Blood, Venous) 09/11/2024 11:03 AM HOTEL REGISTRATION CLERK 09/11/2024 11:20 AM HOTEL REGISTRATION CLERK Joseph Lucas MD LAB BLOOD ORDERABLES Shanna l Result Performing Organization Address City/[facility]/ZIP Co de Phone Number [facility] Department [place] [address] * (ABNORMAL) Comprehensive metabolic panel (09/11/2024 11:03 AM HOTEL REGISTRATION CLERK) Pathologist [facility] Sodium 142 135 - 145 mmol/L Potassium, pl 3.6 3.3 - 4.9 mmol/L [facility] Chloride 102 97 - 110 mmol/L [facility] CO2 28 22 - 32 mmol/L [facility] Anion gap 12 2 - 15 mmol/L [facility] BUN 33(H) 6 - 25 mg/dL [facility] Creatinine 1.40(H) 0.80 - 1.30 mg/dL [facility] Glucose 114 70 - 199 mg/dL [facility] Comment: Interpretive Data Fasting glucose >/= 126 mg/dl is diagnostic for diabetes. Fasting is defined as no caloric intake [...] 8.9 8.5 - 10.3 mg/dL [facility] Bilirubin, total 0.4 0.1 - 1.2 mg/dL [facility] Protein, pl 6.9 6.5 - 8.5 g/dL [facility] Albumin 3.9 3.5 - 5.0 g/dL [facility] Alk phos 43 40 - 130 Units/L [facility] ALT 13 7 - 55 Units/L [facility] AST 24 10 - 50 Units/L [facility] Blood 09/11/2024 11:0 3 AM HOTEL REGISTRATION CLERK 09/11/2024 11:20 AM HOTEL REGISTRATION CLERK us Joseph Lucas MD LAB BLOOD ORDERABLES Shanna l Result [facility] Department [place] [address] * ECG 12-LEAD (09/11/2024 10:52 AM HOTEL REGISTRATION CLERK) Narrative [facility] - 09/11/2024 10:52 AM HOTEL REGISTRATION CLERK Hermilo Linares MD 09/11/2024 10:55 AM ECG 12 lead Date/Time: [...] follow up: further workup in the ED Procedure Note Hermilo Linares MD - 09/11/2024 [...] ORDERABLES Final Res ult Performing Organization Address City/[facility]/ZIP Co de Phone Number [facility] * POCT glucose (09/11/2024 10:48 AM HOTEL REGISTRATION CLERK) Glucose, POC 112 70 - 199 mg/dL Blood 09/11/2024 10:4 8 AM HOTEL REGISTRATION CLERK 09/11/2024 10:48 AM HOTEL REGISTRATION CLERK us Notinfile Unknown LAB POCT ORDERABLES - DEVICE F inal Result [facility] Department [place] [address] * (ABNORMAL) eGFR (09/10/2024 12:26 PM HOTEL REGISTRATION CLERK) eGFR 54(L) >=60 mL/min/1. 73 m2 Comment: Interpretive Data Reference Interval Normal >/= 90 mL/min/1.73m2 Mildly decreased* 60 - 89 mL/min/1.73m2 Mildly to moderately decreased 45 - 59 mL/min/1.73m2 Moderately to severely decreased 30 - 44 mL/min/1.73m2 Severely decreased 15 - 29 mL/min/1.73m2 Kidney Failure < 15 mL/min/1.73m2 *Relative to young adult level Estimated glomerular [...] reviewed 2021. Blood 09/10/2024 12:2 6 PM HOTEL REGISTRATION CLERK 09/10/2024 1:37 PM HOTEL REGISTRATION CLERK us Rehan hSeth MD LAB BLOOD ORDERABLES F inal Result [facility] Department [place] [address] * (ABNORMAL) Pro B-type natriuretic peptide (09/10/2024 12:26 PM HOTEL REGISTRATION CLERK) NT-proBNP 2,273(H) <=450 pg/mL Comment: Interpretive Comments: A. Dyspnea in Acute Care Setting All Ages: < 300 pg/ml, acute heart failure unlikely. < 50 yrs: 300 - 450 pg/ml, further investigation warranted. > 450 pg/ml, acute heart failure likely. 50 - 74 yrs: 300 - 900 pg/ml, further investigation warranted. > 900 pg/ml, acute heart failure likely . > or = 75 yrs: 450 - 1800 pg/ml, further investigation warranted. > 1800 pg/ml, acute heart failure likely. B. Non-acute Setting < 75 yrs < 125 pg/ml, rules out heart failure. > or = 125 pg/ml, further investigation warranted. > or = 75 yrs < 450 pg/ml, rules out heart failure. > or = 450 pg/ml, further investigation [...] Date: 2018. Blood 09/10/2024 12:2 6 PM HOTEL REGISTRATION CLERK 09/10/2024 1:32 PM HOTEL REGISTRATION CLERK Rehan Sheth MD LAB BLOOD ORDERABLES F inal Result [facility] Department [place] [address] * (ABNORMAL) Basic metabolic panel (09/10/2024 12:26 PM HOTEL REGISTRATION CLERK) Sodium 142 135 - 145 mmol/L Potassium, pl 3.9 3.3 - 4.9 mmol/L [facility] Chloride 104 97 - 110 mmol/L [facility] CO2 28 22 - 32 mmol/L [facility] Anion gap 10 2 - 15 mmol/L [facility] BUN 31(H) 6 - 25 mg/dL [facility] Creatinine 1.29 0.80 - 1.30 mg/dL [facility] Glucose 126 70 - 199 mg/dL [facility] Comment: Interpretive Data Fasting glucose >/= 126 mg/dl is diagnostic for diabetes. Fasting is defined as no caloric intake [...] Calcium 9.2 8.5 - 10.3 mg/dL [facility] Blood 09/10/2024 12:2 6 PM HOTEL REGISTRATION CLERK 09/10/2024 1:32 PM HOTEL REGISTRATION CLERK Rehan Sheth MD LAB BLOOD ORDERABLES F inal Result [facility] Department [place] [address] * ECG 12 lead (09/10/2024 11:33 AM HOTEL REGISTRATION CLERK) Rehan Sheth MD ECG ORDERABLES Edited Result - Final * XR Scoliosis Ap and Lateral (08/26/2024 11:42 AM HOTEL REGISTRATION CLERK) Anatomical Region Laterality Modality Spine N/A Computed Radiogr aphy 08/26/2024 12:3 0 PM HOTEL REGISTRATION CLERK Impressions 08/26/2024 12:30 PM HOTEL REGISTRATION CLERK 1. Mild thoracolumbar curvature with leftward coronal and anterior sagittal imbalance Electronically signed by: Mehran Sotomayor MD Narrative 08/26/2024 12:30 PM HOTEL REGISTRATION CLERK EXAMINATION: XR SCOLIOSIS AP AND LATERAL HISTORY: [...] (ABNORMAL) Basic metabolic panel (07/30/2024 12:37 PM HOTEL REGISTRATION CLERK) Glucose 143(H) 65 - 99 mg/dL [facility] Comment: Fasting reference interval For someone without known diabetes, a glucose value >125 mg/dL indicates that they may have diabetes and this should be confirmed with a follow-up test. BUN 22 7 - 25 mg/dL [facility] Creatinine 1.04 0.70 - 1.22 mg/dL [facility] eGFR 71 > OR = 60 mL/min/1.7 3m2 [facility] BUN/creat ratio SEE NOTE: 6 - 22 (calc) [facility] Comment: Not Reported: BUN and Creatinine are within reference range. Sodium 141 135 - 146 mmol/L [facility] Potassium, pl 4.2 3.5 - 5.3 mmol/L [facility] Chloride 103 98 - 110 mmol/L [facility] CO2 30 20 - 32 mmol/L [facility] Calcium 8.9 8.6 - 10.3 mg/dL [facility] Blood 07/30/2024 12:3 7 PM HOTEL REGISTRATION CLERK 07/30/2024 12:38 PM HOTEL REGISTRATION CLERK Rehan Sheth MD LAB BLOOD ORDERABLES F inal Result Performing Organization Address [facility] de Phone Number [facility] [address] [place] [address] * (ABNORMAL) Basic metabolic panel (07/16/2024 11:34 AM HOTEL REGISTRATION CLERK) Glucose 115 65 - 139 mg/dL [facility] Rich Comment: Non-fasting reference interval BUN 29(H) 7 - 25 mg/dL [facility] francisco Villanueva Creatinine 1.23(H) 0.70 - 1.22 mg/dL [facility] eGFR 58(L) > OR = 60 mL/min/1.7 3m2 [facility] BUN/creat ratio 24(H) 6 - 22 (calc) [facility] Sodium 138 135 - 146 mmol/L [facility] francisco Rich Potassium, pl 4.4 3.5 - 5.3 mmol/L [facility] Chloride 101 98 - 110 mmol/L [facility] CO2 27 20 - 32 mmol/L [facility] Calcium 8.7 8.6 - 10.3 mg/dL [facility] Blood 07/16/2024 11:3 4 AM HOTEL REGISTRATION CLERK 07/16/2024 11:34 AM HOTEL REGISTRATION CLERK Narrative [facility] - 07/16/2024 10:30 PM HOTEL REGISTRATION CLERK INSURANCE VERIFIED FASTING:NO FASTING: NO Rehan Sheth MD LAB BLOOD ORDERABLES F inal Result Performing Organization Address [facility] Co de Phone Number [facility] [address] [address] * (ABNORMAL) Hemoglobin A1c (06/07/2024 8:38 AM CDT) Hgb A1C 6.1(H) 4.0 - 5.6 % Estimated Average Glucose 128 mg/dL ORA CUMMINS Comment: The ADA recommends reporting an estimated Average Glucose (eAG) with all Hemoglobin A1c results using the equation derived from a study of 507 normal and diabetic adults. Minority populations were underrepresented and children were not included. (Diabetes Care 31:3133-3646, 2008). The eAG is not equivalent to a fasting glucose. Blood 06/07/2024 8:38 AM CDT 06/07/2024 9:07 AM CDT Joe Hood MD LAB BLOOD ORDER MAITE Final Result ORA [address] [facility] [place] [address] * Lipid panel (06/07/2024 8:38 AM CDT) Cholesterol 116 30 - 199 mg/dL Comment: Interpretive Data Ages < or = 19 years Acceptable: <170 mg/dL Borderline high: 170-199 mg/dL High: >or= 200 mg/dL Ages > or = 20 years Desirable: <200 mg/dL Borderline high: 200-239 mg/dL High: >or= 240 mg/dL Literature References: 1. Expert Panel on Integrated Guidelines for Cardiovascular Health and Risk Reduction in Children and Adolescents. Pediatrics 2011;128:S213 2. NCEP Expert Panel. Circulation 2004;110:227 Current Interpretive Data was last revised on 2018. Triglycerides 68 <=149 mg/dL ORA Comment: Interpretive Data Ages < or = 9 years Acceptable: <75 mg/dL Borderline high: 75-99 mg/dL High: >or= 100 mg/dL Ages 10 to 20 years Acceptable: <90 mg/dL Borderline high: 90-129 mg/dL High: >or= 130 mg/dL Ages > or = 20 years Desirable: <150 mg/dL Borderline high: 150-199 mg/dL High: 200-499 mg/dL Very high: >or= 499 mg/dL Literature References: 1. Expert Panel on Integrated Guidelines for Cardiovascular Health and Risk Reduction in Children and Adolescents. Pediatrics 2011;128:S213 2. NCEP Expert Panel. Circulation 2004;110:227 Current Interpretive Data was last revised on 2018. HDL 55 >=40 mg/dL ORA CUMMINS Comment: Interpretive Data Ages < or = 19 years Acceptable: >45 mg/dL Borderline low: 40-45 mg/dL Low: <40 mg/dL Ages > or = 20 years Desirable: >or= 60 mg/dL Low: <40 mg/dL Literature References: 1. Expert Panel on Integrated Guidelines for Cardiovascular Health and Risk Reduction in Children and Adolescents. Pediatrics 2011;128:S213 2. NCEP Expert Panel. Circulation 2004;110:227 Current Interpretive Data was last revised on 2018. LDL, calculated 47 <=129 mg/dL ORA CUMMINS Comment: Interpretive Data Ages < or = 19 years Acceptable: <110 mg/dL Borderline high: 110-129 mg/dL High: >or= 130 mg/dL Ages > or = 20 years Optimal: <100 mg/dL Near optimal: 100-129 mg/dL Borderline high: 130-159 mg/dL High: >160 mg/dL Calculated using the Charli LDL-C estimating equation. This equation was implemented on 2024. Prior to this date LDL-C was estimated using the Friedewald equation. Literature References: 1. Expert Panel on Integrated Guidelines for Cardiovascular Health and Risk Reduction in Children and Adolescents. Pediatrics 2011;128:S213 2. NCEP Expert Panel. Circulation 2004;110:227 3. Charli M et al. SADE Cardiol. 2019December 18;5(5):540-548. doi: 10.1001/jamacardio.2020.0013 Current Interpretive Data was last revised on 2024. Non-HDL Cholesterol 61 mg/dL ORA CUMMINS Comment: Interpretive Data Ages < or = 19 years Acceptable: <120 mg/dL Borderline high: 120-144 mg/dL High: >145 mg/dL Ages > or = 20 years When triglycerides are >200 mg/dL, Non-HDL cholesterol is a secondary target of therapy with treatment goals that are 30 mg/dL greater than the LDL cholesterol target. Literature References: 1. Expert Panel on Integrated Guidelines for Cardiovascular Health and Risk Reduction in Children and Adolescents. Pediatrics 2011;128:S213 2. NCEP Expert Panel. Circulation 2004;110:227 Current Interpretive Data was last revised on 2018. Chol/HDL ratio 2 ORA CUMMINS Blood 06/07/2024 8:38 AM CDT 06/07/2024 9:07 AM CDT Joe Hood MD LAB BLOOD ORDER MAITE Final Result ORA MH [address] [facility] [place] [address] * DIABETES FOOT EXAM (11/05/2020) Diabetic Foot Exam Normal Historical Provider MD HEALTH MAINTENANCE Final Result * DIABETES EYE [...] Advance Directives For more information, please contact: [phone] Documents on File Type Date Recorded Patient Urgent Care Technician Expl anation ADVANCE DIRECTIVE 12/27/2023 10:41 PM Jorge Villa OWER OF TRAIN DISPATCHER-MEDICAL ADVANCE DIRECTIVE 12/26/2023 10:38 AM Yazmin Medina POWER OF TRAIN DISPATCHER-FINANCIAL * Full Code (Latest Code Status on File) Date Activated Date Inactivated Comments 10/03/2024 1:42 PM 10/03/2024 9:49 PM * Full Code Date Activated Date Inactivated Comments 09/11/2024 4:16 [...] Communication Jorge Pryor Spouse Health Care Agent Yazmin Medina Daughter First Alternate Health Care Agent [email or web address] Care Teams Human Resource Manager Relationship Specialty Start Date End Date Barry Ralph MD PCP - General Family Practice 05/22/24 Rehan Sheth MD [address] [facility] [address] [place] [address] Consulting Physician Cardiology 09/09/24 Sangita Moore, RN [address] [place] [address] SHOP Outpatient Bundle Collector 09/15/24
--- OUTSIDE RECORDS SUMMARY | 2024-10-08 15:07 | XMS_ITS | Encounter Summary ---
Author Organization [facility] Address [address] [place] [address] Care Team Providers Care Supply Coordinator Name Role Phone Barry Ralph MD Primary Care Provider [phone] Rehan Sheth MD Unavailable [phone] Sangita Moore RN Unavailable [phone] Encounter Details Date Type Department Care Team (Late st Contact Info) Description 10/08/2024 Documentation [facility] [address] [place] [address] Yvonne Tanner, RN Social History Tobacco Use Types Packs/Day Years Used Date Smoking Tobacco: Never Smokeless Tobacco: Never [facility] Utilities Answer Date Recorded In the past 12 months has [employer] electric, gas, oil, or water company threatened [...] week 09/15/2024 How often do you attend [facility] or mormon services? 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 Upon speaking with patient and his , patient is only taking simvastatin 20 mg daily, he does not have atorvastatin and is not taking atorvastatin. Per Dr. Sheth, pt is to stay on simvastatin 20 mg daily. Spoke with and informed her of plan to stay on simvastatin- she verbalized understanding. MBLING INSPECTOR documented in this encounter Plan of Treatment Not on file documented as of this encounter Goals Goal Patient Goal Type Associated Problems Recent Progress Patient-Stated? Author CCM Chronic Pain Care Plan Chronic Care Management Improving( 10:49 AM ASSEMBLING INSPECTOR) No Nenita Santiago, RN Note: Problem: Chronic [...] Plan Initial Follow-Up Appointment No Sangita Moore, TIM Note: Pt has an appointment with [...] risk 17 Knowledge Deficit Concerning CHF 09/15/2024 documented as of this encounter Care Teams Supply Coordinator Relationship Specialty Start Date End Date Barry Ralph MD PCP - General Family Practice 05/22/24 Rehan Sheth MD [address] [phone] (Work) Consulting Physician Cardiology 09/09/24 Sangita Moore, RN [address] [facility] [address] [place] [address] SHOP Outpatient Casing Mixer 09/15/24 documented as of this encounter
--- OUTSIDE RECORDS SUMMARY | 2024-10-08 15:07 | XMS_ITS | Continuity of Care Document ---
Author Organization [facility] Address [address] [place] [address] [address] [place] [address] Phone Care Team Providers Care Ebay Reseller Name Role Phone [place] OD, Hermilo Unavailable Unavailable Procedures Procedure Date Eye Exam, New Patient Refraction Advance Directives Directive Yes / No Effective Date File Name No Information Encounters Encounter Description Practice Location Reason(s) For Visit Diagnoses Date Provider Providers Copied on Encounter [facility], [address] [place] [address] [address], [place], [place], [id number], [place] tel:[phone] [facility] No Information [phone] [place] OD Hermilo. [address] , [address], [place], [address], [place]. tel:[phone] Family History Family Member Type Diagnosis Age At Onset No Information Payers Payer name Insurance type Covered green party ID Authoriza tion(s) [employer] Vision Plan CI [id number] Social History Type Description Quantity Date [...]
--- OUTSIDE RECORDS SUMMARY | 2024-10-08 15:07 | XMS_ITS | Encounter Summary ---
Author Organization [facility] Address [address] [place] [address] Phone Care Team Providers Care Dust Mixer Name Role Phone Barry Ralph MD Primary Care Provider [phone] Rehan Sheth MD Unavailable [phone] Sangita Moore RN Unavailable [phone] Reason for Visit * Reason Onset Date Comments shortness of breath/anxiety 10/07/2024 Encounter Details Date Type Department Care Team (Late st Contact Info) Description 10/07/2024 Telephone [facility] [address] [facility] Medicine 8th [place] [address] [place] [address] Rehan Sheth MD [address] [facility] [address] [place] [address] shortness of breath/anxiety Social History Tobacco Use Types Packs/Day Years Used Date Smoking Tobacco: Never Smokeless Tobacco: Never [facility] Utilities Answer Date Recorded In the past 12 months has e electric, gas, oil, or water company [...] often do you attend chur ch or religion services? More than 4 times per year 09/15/2024 Do you belong to any clubs o r organizations such as shinto groups, unions, fraternal or athletic groups, or [...] Date Recorded PHQ-2 Total Score 0 09/12/2024 [facility] of Occupat ional Health - Occupational Stress [...] any time in the past 12 m [facility], were you homeless or living in a chcf (including now)? No 09/15/2024 Personal Safety Answer Date Recorded Have you ever been in or are you currently in a harmful physical or emotional relationship or is someone making you feel afraid or unsafe? 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 He reports he will f/u with PCP tomorrow and will provide update. Pt aware of appt 11/[address] Sheth. R RESTORATION TECHNICIAN * Telephone Encounter - Rehan Sheth MD - 10/07/2024 1:59 PM WATER RESTORATION TECHNICIAN Agree with him seeing his pcp tomorrow R RESTORATION TECHNICIAN * Telephone Encounter - Naila Cortez RN - 10/07/2024 1:40 PM CST I tried to contact pt but no answer. I lm requesting cb. I contacted other listed number. Pt notes that he had ER eval yesterday,and nothing was found per pt. He reports he feels anxious, and uptight. He notes this makes him feel SOB. He denies any CP, tightness, pressure. He reports he feels very closed in by his current living situation, and this is contributing to him not sleeping well and feeling anxious he states. He reports he feels confused at times, and feels that his speech is not goodalways when talking. Pt did speak appropriately and clearly when I spoke with him. He notes he feels like he stumbles, and notes he fell when at the hospital yesterday, but has not fallen since. He reports he thought a muscle relaxer might help him sleep or oxygen to help his feeling of SOB. He reports his O2 sats are 95-98% and I explained that this means he is oxygenating well and would not require O2. He has not checked BP or HR, but notes his vitals were fine at the hospital when he had these same symptoms. He reports his primary c/o discomfort, is that he feels very anxious and nervous, u ptight. He reports he has an appt tomorrow with PCP, but concerned that can't be seen until then. Iasked pt if he could stay with one of his kids, if this would help, and pt notes he thinks this would help, but has not asked his son yet. Will dw Dr. Sheth. R RESTORATION TECHNICIAN * Telephone Encounter - Vanda Becker - 10/07/2024 1:13 PM CST REMIGIO Pt stating he is having issues with breathing. Pt asking if Dr can order him oxygen? Asked pt if he needed to call 911? Pt said he was see at [facility] dept yesterday and was told everything was fine. Pls return call as soon as possible. R RESTORATION TECHNICIAN documented in this encounter Plan of Treatment Not on file documented as of this encounter Goals Goal Patient Goal Type Associated Problems Recent Progress Patient-Stated? Author CCM Chronic Pain Care Plan Chronic Care Management Improving( 10:49 AM WATER RESTORATION TECHNICIAN) No Nenita Santiago, RN Note: Problem: Chronic [...] Care Plan Initial Follow-Up Appointment No Sangita Moore RN Note: Pt has an appointment with [...] documented as of this encounter Care Teams Dust Mixer Relationship Specialty Start Date End Date Barry Ralph MD PCP - General Family Practice 05/22/24 Rehan Sheth MD [address] [facility] [address] [place] [address] Consulting Physician Cardiology 09/09/24 Sangita Moore, RN [address] [facility] [address] [place] [address] SHOP Outpatient Flaring Machine Operator 09/15/24 documented as of this encounter
--- OUTSIDE RECORDS SUMMARY | 2024-10-08 15:07 | XMS_ITS | Encounter Summary ---
Author Organization [facility] Address [address] [place] [address] Phone Care Team Providers Care Clinical Program Consultant Name Role Phone Barry Ralph MD Primary Care Provider [phone] Rehan Sheth MD Unavailable [phone] Sangita Moore RN Unavailable [phone] Encounter Details Date Type Department Care Team (Late st Contact Info) Description 10/06/2024 Results Follow-Up [facility] [address] [facility] Advanced Medicine 8th [place] [address] [place] [address] Amanda Chatman RN Social History Tobacco Use Types Packs/Day Years Used Date Smoking Tobacco: Never Smokeless Tobacco: Never [facility] Utilities Answer Date Recorded In the past 12 months has [employer] electric, gas, oil, or water company threatened [...] any clubs o r organizations such as hoahaoism groups, unions, fraternal or athletic groups, or [...] Date Recorded PHQ-2 Total Score 0 09/12/2024 [facility]ational Stress Questionnaire Answer Date [...] any time in the past 12 m [facility], were you homeless or [...] on file Legal Sex Male 8:23 PM STRAIGHTENING ROLL OPERATOR Gender Identity Not on file Sexual Orientation Not on file documented as of this encounter Plan of Treatment Not on file documented as of this encounter Goals Goal Patient Goal Type Associated Problems Recent Progress Patient-Stated? Author CCM Chronic Pain Care Plan Chronic Care Management Improving( 10:49 AM STRAIGHTENING ROLL OPERATOR) No Nenita Santiago, RN Note: Problem: Chronic [...] documented as of this encounter Care Teams Clinical Program Consultant Relationship Specialty Start Date End Date Barry Ralph MD PCP - General Family Practice 05/22/24 Rehan Sheth MD [address] [facility] [address] [place] [address] Consulting Physician Cardiology 09/09/24 Sangita Moore, RN [address] [facility] [address] [place] [address] SHOP Outpatient Domestic Technician 09/15/24 documented as of this encounter
--- OUTSIDE RECORDS SUMMARY | 2024-10-08 15:07 | XMS_ITS | Encounter Summary ---
Author Organization [facility] Address [address] [place] [address] Care Team Providers Care Gun Perforator Loader Name Role Phone Barry Ralph MD Primary Care Provider [phone] Rehan Sheth MD Unavailable [phone] Sangita Moore RN Unavailable Reason for Visit * Reason Comments Unsuccessful Phone Call 1 Encounter Details Date Type Department Care Team (Late st Contact Info) Description 10/07/2024 SHOP/CHAP Subsequent Outreach [facility] [address] [place] [id number] Sangita Moore, RN [address] [facility] [address] [place] [address] Social History Tobacco Use Types Packs/Day Years Used Date Smoking Tobacco: Never Smokeless Tobacco: Never [facility] Utilities Answer Date Recorded In the past 12 months has [facility] [employer], gas, oil, or water company threatened to [...] often do you attend chur ch or jain services? More than 4 times per year 09/15/2024 Do you belong to any clubs o r organizations such as christian groups, unions, fraternal or athletic groups, or [...] Date Recorded PHQ-2 Total Score 0 09/12/2024 [facility] of Occupat ional Health - Occupational Stress [...] in a prison (including now)? No 01/01/2024 Housing Stability Vital Sign Answer Deangelo e Recorded In the last 12 months, was t here a time when you were not able to pay the mortgage or rent on time? No 09/15/2024 In the past 12 months, how m any times have you moved where you were living? 1 09/15/2024 At any time in the past 12 m [facility], were you homeless or living in a prison (including now)? No 09/15/2024 Personal Safety Answer Date Recorded Have you ever been in or are you currently in a harmful physical or emotional relationship or is someone making you feel afraid or unsafe? Denies 10/06/2024 Sex and Gender Information Value Date Recorded Sex Assigned at Not on file Legal Sex Male 8:23 PM BARREL BUILDER Gender Identity Not on file Sexual Orientation Not on file documented as of this encounter Plan of Treatment Not on file documented as of this encounter Goals Goal Patient Goal Type Associated Problems Recent Progress Patient-Stated? Author CCM Chronic Pain Care Plan Chronic Care Management Improving( 10:49 AM BARREL BUILDER) No Nenita Santiago, RN Note: Problem: Chronic [...] documented as of this encounter Care Teams Gun Perforator Loader Relationship Specialty Start Date End Date Barry Ralph MD PCP - General Family Practice 05/22/24 Rehan Sheth MD [address] [facility] [address] [place] [address] Consulting Physician Cardiology 09/09/24 Sangita Moore, RN [address] [facility] [address] [place] [address] SHOP Outpatient Janitor Custodian 09/15/24 documented as of this encounter
--- OUTSIDE RECORDS SUMMARY | 2024-10-08 15:07 | XMS_ITS | Encounter Summary ---
Author Organization [facility] Address [address] [place] [address] Phone Care Team Providers Care It Integration Architect Name Role Phone Barry Ralph MD Primary Care Provider [phone] Rehan Sheth MD Unavailable [phone] Sangita Moore RN Unavailable Reason for Visit * Reason Onset Date Comments Symptoms 10/06/2024 Encounter Details Date Type Department Care Team (Late st Contact Info) Description 10/06/2024 Telephone [facility] [address] [facility] [address] [place] [address] [place] [address] Rehan Sheth MD [address] [facility] [address] [place] [address] Symptoms Social History Tobacco Use Types Packs/Day Years Used Date Smoking Tobacco: Never Smokeless Tobacco: Never [facility] Utilities Answer Date Recorded In the [...] any clubs o r organizations such as protestant groups, unions, fraternal or athletic groups, or [...] Date Recorded PHQ-2 Total Score 0 09/12/2024 [facility] - Occupational [...] any time in the past 12 m onths, were you homeless or living in a assisted (including now)? No 09/15/2024 Personal Safety Answer Date Recorded Have you ever been in or are you currently in a harmful physical or emotional relationship or is someone making you feel afraid or unsafe? Denies 10/06/2024 Sex and Gender Information Value Date Recorded Sex Assigned at Not on file Legal Sex Male 8:23 PM PROCESS WORKER Gender Identity Not on file Sexual Orientation Not on file documented as of this encounter Miscellaneous Notes * Telephone Encounter - Rehan Sheth MD - 10/06/2024 12:16 PM PROCESS WORKER noted ESS WORKER * Telephone Encounter - Naila Cortez RN - 10/06/2024 12:04 PM CST I spoke with . She reports pt started having symptoms yesterday, with more pronounced symptoms today. She notes pt was not acting right yesterday, noting pt would close his eyes and not be as responsive. She notes this AM, pt is slurring his words, has weakness, and unable to ambulate well and son notes pt has left sided facial droop. Son picked pt and up and enroute to [facility] ER. I advisedpt go to [facility] ER, and son notes this is [facility]. I contacted ER and provided report. Will inform Dr. Sheth. ESS WORKER * Telephone Encounter - Karen Chi - 10/06/2024 12:00 PM CST [facility] En[facility] Pt calling, she's on her way ER with pt. She thinks he is having a stroke. Can't stay awake, slurring words. Pt had stinks put in Sunday and he hasn't felt well. Pls call . ESS WORKER documented in this encounter Plan of Treatment Not on file documented as of this encounter Goals Goal Patient Goal Type Associated Problems Recent Progress Patient-Stated? Author CCM Chronic Pain Care Plan Chronic Care Management Improving( 10:49 AM PROCESS WORKER) Nenita Sanchez, TIM Note: Problem: Chronic Pain [...] documented as of this encounter Care Teams It Integration Architect Relationship Specialty Start Date End Date Barry Ralph MD PCP - General Family Practice 05/22/24 Rehan Sheth MD [address] [facility] [address] [place] [address] Consulting Physician Cardiology 09/09/24 Sangita Moore, RN [address] [place] [address] [facility] Outpatient Flight Deck Officer 09/15/24 documented as of this encounter
--- OUTSIDE RECORDS SUMMARY | 2024-10-08 15:07 | XMS_ITS | Encounter Summary ---
Author Organization [facility] Address [address] [place] [address] Care Team Providers Care Account Underwriter Name Role Phone Barry Ralph MD Primary Care Provider [phone] Rehan Sheth MD Unavailable [phone] Sangita Moore RN Unavailable Reason for Visit * Reason Comments Altered Mental Status Encounter Details Date Type Department Care Team (Late st Contact Info) Description 10/06/2024 2:18 PM GLASS CLEANING MACHINE TENDER - 10/06/2024 7:30 PM GLASS CLEANING MACHINE TENDER Emergency [facility] Emergency Department [address] [place] [id number] Aneta Castellanos MD [address] [facility] [address] [address] [place] [address] Altered mental status, unspecified altered mental status type (Primary Dx) Discharge Disposition: Discharge to home or self care Social History Tobacco Use Types Packs/Day Years Used Date Smoking Tobacco: Never Smokeless Tobacco: Never [facility] Utilities Answer Date Recorded [...] any clubs o r organizations such as methodist groups, unions, fraternal or athletic groups, or [...] Date Recorded PHQ-2 Total Score 0 09/12/2024 [facility] - Occupational Stress [...] place to sleep or slept in a residential (including now)? No 01/01/2024 Housing Stability Vital Sign Answer Deangelo e Recorded In the last 12 months, was t here a time when you were not able to pay the mortgage or rent on time? No 09/15/2024 In the past 12 months, how m any times have you moved where you were living? 1 09/15/2024 At any time in the past 12 m [facility], were you homeless or living in a residential (including now)? No 09/15/2024 Personal Safety Answer Date Recorded Have you ever been in or are you currently in a harmful physical or emotional relationship or is someone making you feel afraid or unsafe? Denies 10/06/2024 Sex and Gender Information Value Date Recorded Sex Assigned at Not on file Legal Sex Male 8:23 PM GLASS CLEANING MACHINE TENDER Gender Identity Not on file Sexual Orientation Not on file documented as of this encounter Last Filed Vital Signs Vital Sign Reading Time Taken Comments Blood Pressure 113/56 10/06/2024 6:55 PM GLASS CLEANING MACHINE TENDER Pulse 66 10/06/2024 6:55 PM GLASS CLEANING MACHINE TENDER Temperature 36.6 C (97.9 F) 10/06/2024 12:33 PM GLASS CLEANING MACHINE TENDER Respiratory Rate 10 10/06/2024 6:55 PM GLASS CLEANING MACHINE TENDER Oxygen Saturation 96% 10/06/2024 6:55 PM GLASS CLEANING MACHINE TENDER Inhaled Oxygen Concentration - - Weight 99.8 kg (220 lb) 10/06/2024 12:33 PM GLASS CLEANING MACHINE TENDER Height 182.9 cm (6') 10/06/2024 12:33 PM GLASS CLEANING MACHINE TENDER Body Mass Index 29.84 10/06/2024 12:33 PM GLASS CLEANING MACHINE TENDER documented in this encounter Discharge Instructions * Discharge Instructions* Oralia Cummings MD - 10/06/2024 6:36 PM GLASS CLEANING MACHINE TENDER You were evaluated in the [facility] ED for altered mental status and confusion. You underwent extensive work-up including lab work and imaging. This work-up was reassuring against metabolic, infectious, and neurologic causes of altered mental status. As discussed, there may also be environmental stressors contributing to your symptoms. Please seek medical attention if you develop worsening confusion, fevers/chills, weakness, numbness/tingling, facial droop, or if you have any other concerns. A referral to neurology has also been placed. Please call the number below to schedule an appointment as needed if you continue to have concerns about your mental status. S CLEANING MACHINE TENDER S CLEANING MACHINE TENDER documented in this encounter Medications at Time of Discharge albuterol HFA (PROVENTIL HFA,VENTOLIN HFA,PROAIR HFA) 90 mcg/actuation inhaler Inhale 2 puffs as needed for shortness of breath 09/17/2014 amLODIPine (NORVASC) 10 mg tablet Take 1 tablet (10 mg total) by mouth daily 90 tablet 3 02/08/2023 apixaban (ELIQUIS) 5 mg tabletIndications:at rial fibrillation Take 1 tablet (5 mg total) by mouth 2 (two) times a day PLEASE RESUME THIS MEDICATION TOMORROW (05/22/2024) 56 tablet 09/09/2024 aspirin 81 mg chewable tablet Take 1 tablet (81 mg total) by mouth daily for 14 days 14 tablet 10/03/2024 10/17/19 25 atorvastatin (LIPITOR) 80 mg tablet Take 1 tablet (80 mg total) by mouth daily 30 tablet 2 05/22/2024 05/22/20 25 blood glucose diagnostic (True Metrix Glucose Test Strip) stripIndications:Typ e 2 diabetes mellitus with hyperosmolarity without coma, without long-term current use of insulin ([facility]) ([facility]) TEST BLOOD SUGAR EVERY DAY 100 strip 3 05/12/2022 carvediloL (COREG) 25 mg tablet TAKE 1 TABLET BY MOUTH TWICE DAILY WITH MEALS 200 tablet 2 07/14/2024 clopidogreL (PLAVIX) 75 mg tabletIndications:Th rombosis Prevention after PCI Take 1 tablet (75 mg total) by mouth daily 30 tablet 3 05/22/2024 05/22/20 25 doxazosin (CARDURA) 4 mg tablet TAKE 1 TABLET BY MOUTH EVERY NIGHT 100 tablet 2 07/14/2024 furosemide (LASIX) 40 mg tablet Take 2 tabs in AM and one tab in PM 270 tablet 3 09/25/2024 glipiZIDE XL (GLUCOTROL XL) 5 mg 24 hr tablet TAKE 1 TABLET BY MOUTH DAILY 100 tablet 2 07/14/2024 isosorbide mononitrate ER (IMDUR) 30 mg 24 hr tablet Take 1 tablet (30 mg total) by mouth daily 30 tablet 11 09/10/2024 09/10/19 26 lancets (OneTouch Delica Plus Lancet) 30 gauge miscIndications:Type 2 diabetes mellitus with hyperosmolarity without coma, without long-term current use of insulin ([facility]) ([facility]) Use to check blood sugar 3x daily 300 each 2 01/31/2022 losartan (COZAAR) 100 mg tablet TAKE 1 TABLET BY MOUTH DAILY 60 tablet 5 07/21/2024 methocarbamoL (ROBAXIN) 500 mg tabletIndications:Ch ronic midline low back pain without sciatica Take 1 tablet (500 mg total) by mouth 2 (two) times a day as needed for muscle spasms 60 tablet 1 12/07/2023 PARoxetine (PAXIL) 20 mg tablet Take 1 tablet (20 mg total) by mouth every morning 90 tablet 3 02/08/2023 potassium chloride ER 20 mEq CR tablet Take 1 tablet (20 mEq total) by mouth daily 09/18/2024 simvastatin (ZOCOR) 20 mg tablet 06/28/2024 spironolactone (ALDACTONE) 25 mg tablet Take 0.5 tablets (12.5 mg total) by mouth daily 15 tablet 11 06/17/2024 06/17/20 25 True Metrix Glucose Meter kit USE DIRECTED 1 kit 08/17/2021 documented as of this encounter Discharge Disposition Disposition Code Departure Means Destination Comment s Discharge to home or self care documented in this encounter ED Notes * Jaylen Petersen MD - 10/06/2024 2:47 PM CST HPI Chief Complaint Patient presents with Altered Mental Status 84M hx HFpEF (50%), A.Fib, HTN, HLD, s/p bioprosthetic valve replacements x 2, DM, and BPH. Presenting after family noted slurred speech and unsteady gait Sunday morning (over 30hrs ago). 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 Family state Sunday morning they noted slurred speech, he went to bed and woke up ok then another family member noted a lisp around 11am 10/06 morning. Pt endorses subjective confusion. Denies fever, chills, URI sx, abd pain, had normal daily BM. heart failure with preserved ejection fraction, lung disease, paroxysmal atrial fibrillation Patient History: Patient Active Problem List Diagnosis Date Noted Chest pain, unspecified type 09/11/2024 Coronary artery disease involving [place] coronary artery of [place] heart with angina pectoris ([facility])09/10/2024 Internal carotid artery stenosis, right 06/12/2024 Chronic heart failure with preserved ejection fraction (CMS/HCC) ([facility]) 06/12/2024 Stage 2 chronic kidney disease 06/12/2024 Thrombocytopenia ([facility]) 06/12/2024 Bilateral leg weakness 06/06/2024 NSTEMI (non-ST elevated myocardial infarction) (CMS/HCC) ([facility]) 05/20/2024 Acute respiratory failure with hypoxia (CMS/HCC) ([facility]) 05/20/2024 Acute on chronic heart failure (CMS/HCC) ([facility]) 05/20/2024 Sacroiliac joint pain 04/23/[address] 12/23/2023 Fever, concern for osteomyelitis 12/21/2023 Spinal stenosis 12/21/2023 Falls frequently 12/20/2023 Brain aneurysm 12/20/2023 Subclinical hypothyroidism 12/20/2023 Lumbar spondylosis 05/13/2021 Well adult exam 11/05/2020 Encounter for Medicare annual wellness exam 06/04/2019 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 [Z79.01] 03/27/2018 Atrial fibrillation ([facility]) [I48.91] 03/27/2018 Elevated ferritin 07/17/2017 Systolic heart failure ([facility]/H[facility]) ([facility]) 07/17/2017 BPPV (benign paroxysmal positional vertigo), unspecified laterality 05/23/2017 Left flank pain 01/17/2017 Epididymitis 01/03/2017 COPD (chronic obstructive pulmonary disease) ([facility]) 01/02/2017 Low back pain 05/25/2015 Pancreatitis 03/10/2015 Gallbladder disease 02/09/2015 Calcification of gallbladder 01/23/2015 History of aortic valve replacement 12/20/2014 Gastroesophageal reflux disease 09/17/2014 Tussive syncope 08/25/2014 Syncope and collapse 08/21/2014 Syncope 08/21/2014 Type 2 diabetes mellitus ([facility]) 07/10/2014 Obesity with body mass index 30 or greater 07/09/2014 Generalized anxiety disorder 07/09/2014 Reactive airway disease 07/09/2014 Benign essential hypertension 01/03/2011 Hypercholesterolemia 01/03/2011 Benign prostatic hyperplasia with urinary obstruction 08/26/2009 Past Medical History: Diagnosis Date COPD (chronic obstructive pulmonary disease) ([facility]) Diabetes mellitus ([facility]) Hypertension Low back pain Other retention of urine Acute urinary retention - (Added by TW Conv) Personal history of other diseases of the circulatory system History of hypertension - (Added by TW Conv) Personal history of other diseases of the circulatory system History of aortic valve disorder - Aortic Valve Disorder (Added by TW Conv) Personal history of other endocrine, nutritional and metabolic disease History of diabetes mellitus - (Added by TW Conv) Past Surgical History: Procedure Laterality Date BIOPSY DEEP BONE N/A 12/21/2023 CARDIAC CATHETERIZATION N/A 10/03/2024 Procedure: Right Left Heart Catheterization with Coronary Angiography with or without Left Ventriculography 28132; Surgeon: Nigel Holman MD; Location: [facility] CARDIAC DNA ANALYST; Service: Cardiovascular; Laterality: N/A; Cp, SOB, CAD Cath with PCI [facility] 05/21/[address] Pedroza. On glucatrol, will instruct to hold AM of test On plavix and apixaban. Will instruct pt to take last dose of apixa IA LASER VAPORIZATION OF PROSTATE FOR URINE FLOW Laser Vaporization With Transurethral Resection Of Prostate - (Added by TW Conv) IA RPLCMT PROST AORTIC VALVE OPEN XCP HOMOGRF/STENT Aortic Valve Replacement - (Added by TW Conv) Family History Problem Relation Age of Onset Diabetes Mother Cancer Mother Family history of malignant neoplasm - (Added by TW Conv) Cancer Father Diabetes Father Heart disease Father Family history of cardiac disorder - (Added by TW Conv) Heart attack Father IA @ 44 y/o Social History Tobacco Use Smoking status: Never Smokeless tobacco: Never Vaping Use Vaping status: Never Used Substance and Sexual Activity Alcohol use: None Drug use: Never Sexual activity: Defer Social History Social History Narrative Diet is high in carbohydrates : admits to eating vast quantities of sweets (Added by Conv) Lack of exercise : (Added by Conv) Sedentary lifestyle : (Added by Conv) No alcohol use : (Added by Conv) He lives in a 20 room [facility] there Review of Systems Review of Systems All other systems reviewed and are negative. Physical Exam ED Triage Vitals [10/06/24 1233] Temp Pulse Resp BP SpO2 36.6 ??C (97.9 ??F) 57 18 114/59 96 % Temp src Heart Rate Source Patient Position BP Location FiO2 (%) Oral -- -- -- -- Height Height Method Weight Weight Method 1.829 m (6') Stated 99.8 kg (220 lb) Stated Physical Exam Eyes: Extraocular Movements: Extraocular movements intact. Right eye: No nystagmus. Left eye: No nystagmus. Pupils: Pupils are equal, round, and reactive to light. Cardiovascular: Rate and Rhythm: Rhythm irregular. Pulmonary: Effort: Pulmonary effort is normal. Abdominal: Palpations: Abdomen is soft. Tenderness: There is no abdominal tenderness. Neurological: Mental Status: He is alert and oriented to person, place, and time. Cranial Nerves: Facial asymmetry present. No dysarthria. Motor: No weakness. Coordination: Coordination normal. 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 MDM Medical Decision Making Pt OOW for any emergent stroke workup given symptom onset over 30 hours ago (Sunday morning). Also hard to distinguish pts chronic bells palsy from new L facial droop. In the ED pt has no NEW focal neuro defecits, strenth 5/5 throughout, sensation intact, no ataxia, no dysarthia. Possible TIA givenacute slurring of speech with regained neuro function. Will get CT head given change in mental status and infectious workup with CXR, UA, CBC, CMP, RVP. Amount and/or Complexity of Data Reviewed Labs: ordered. Radiology: ordered. ECG/medicine tests: ordered and independent interpretation performed. Attending Summary of Care ED Course as of 10/07/24 1414 Time: 10/06 3737 Comment: EKG : Ventricular rate: 65 bpm Rhythm: sinus with PACs Mcallen: Normal Intervals: 1st degree av block, wide QRS Other findings: no acute ischemia Interpretation: abnormal EKG, LBBB, ectopy By: Priscilla Sarmiento MD Time: 10/06 4267 Comment: Brief evaluation of patient seen just prior to handoff to Dr. Castellanos's team; 84 year old male with recent coronary stent, patient of Dr. Sheth. Presented with approximately 30 hours of difficulty with coordination in walking as well as slurred speech and overall just not acting right per his . Will plan for metabolic/infectious workup as well as head CT as initial workup. By: Jaylen Petersen MD Time: 10/06 1506 Comment: TRANSITION OF CARE: I, Oralia Cummings MD, am taking signout from off-going resident. I have reviewed all pertinent vital signs, allergies, and history available in the chart. Summary: 84 y.o. male h/o recent coronary stent Fri presenting with 30hrs of difficulty with coordination and slurred speech. Pending: metabolic/infectious workup Dispo: Pending work up above By: Oralia Cummings MD Time: 10/06 1509 Comment: 84 yo M with hx of CAD with 30 hour duration of increased lethargy and dec coordination. Awaiting workup. By: Aneta Castellanos MD Time: 10/06 1636 Comment: IMPRESSION: No acute intracranial hemorrhage, large vessel territory infarction, mass effect, or midline shift. By: Aneta Castellanos MD Altered mental status, unspecified altered mental status type Priscilla Sarmiento MD Resident 10/06/24 7166 I have seen and examined the patient on 10/06/2024. I agree with the findings and plan of care as documented in the resident's note. Jaylen Petersen MD 10/07/24 1414 S CLEANING MACHINE TENDER S CLEANING MACHINE TENDER * Bhumi Wilson RN - 10/06/2024 12:35 PM CST Patient here for c/o altered mental status. Pt had stent placed on Sunday and has been feeling bad ever since, pt unable to further describe how he is feeling, family states he is normally A&Ox4. Pt denies pain at this time. S CLEANING MACHINE TENDER documented in this encounter Miscellaneous Notes * ED Procedure Note - Nupur Orozco MD - 10/06/2024 1:07 PM GLASS CLEANING MACHINE TENDER Associated Order(s): ECG 12 lead Procedure ECG 12 lead Date/Time: 10/06/2024 1:07 PM Performed by: Nupur Orozco MD Authorized by: Jaylen Petersen MD Comments: EKG Interpretation Interpreted by ED physician in absence of a clothing supervisor Ventricular rate: 65 bpm Rhythm: sinus with PACs Mcallen: Normal Intervals: 1st degree av block, wide QRS Other findings: no acute ischemia Interpretation: abnormal EKG, LBBB, ectopy Compared to priors: no priors for comparison Nupur Orozco MD 10/06/24 1308 S CLEANING MACHINE TENDER * ED Pre-Arrival Note - Kitty Griffin RN - 10/06/2024 12:09 PM GLASS CLEANING MACHINE TENDER Pre-Arrival Note Pt coming from home, pt had cardiac cath with stent placement on Sunday, started acting off yesterday per family, this am has left facial droop and difficulty walking, coming by POV Kitty Griffin RN S CLEANING MACHINE TENDER documented in this encounter Plan of Treatment Pending Results Name Type Priority Associated Diagnoses Date /Time Comprehensive metabolic panel Lab Routine 10/06/2024 3:59 PM GLASS CLEANING MACHINE TENDER Scheduled Orders Name Type Priority Associated Diagnoses Orde r Schedule Comprehensive metabolic panel Lab Routine Once for 1 Occur rences starting 10/06/2024 until 10/06/2024 documented as of this encounter Goals Goal Patient Goal Type Associated Problems Recent Progress Patient-Stated? Author CCM Chronic Pain Care Plan Chronic Care Management Improving( 10:49 AM GLASS CLEANING MACHINE TENDER) Nenita Sanchez, TIM Note: Problem: Chronic Pain [...] and vomiting. documented as of this encounter Procedures Procedure Name Priority Date/Time Associated Diagnosis Comments URINALYSIS AND REFLEX TO MICROSCOPIC STAT 10/06/2024 5:51 PM GLASS CLEANING MACHINE TENDER URINALYSIS, MICROSCOPIC ONLY STAT 10/06/2024 5:51 PM GLASS CLEANING MACHINE TENDER EGFR Routine 10/06/2024 3:59 PM GLASS CLEANING MACHINE TENDER RESPIRATORY PATHOGEN PANEL STAT 10/06/2024 3:59 PM GLASS CLEANING MACHINE TENDER CBC WITHOUT DIFFERENTIAL Routine 10/06/2024 3:59 PM GLASS CLEANING MACHINE TENDER TSH Routine 10/06/2024 3:59 PM GLASS CLEANING MACHINE TENDER VITAMIN B12 Routine 10/06/2024 3:59 PM GLASS CLEANING MACHINE TENDER COMPREHENSIVE METABOLIC PANEL Routine 10/06/2024 3:59 PM GLASS CLEANING MACHINE TENDER CT HEAD WO CONTRAST ED 10/06/2024 3 :37 PM GLASS CLEANING MACHINE TENDER XR CHEST PA LATERAL 2 VIEWS ED 10/06/2024 3:30 PM GLASS CLEANING MACHINE TENDER ECG 12-LEAD STAT 10/06/2024 1:07 PM GLASS CLEANING MACHINE TENDER POCT GLUCOSE DEVICE Routine 10/06/2024 1 2:48 PM GLASS CLEANING MACHINE TENDER documented in this encounter Results * (ABNORMAL) Urinalysis, microscopic only (10/06/2024 5:51 PM GLASS CLEANING MACHINE TENDER) WBC, ur 0-5 0 - 5 /HPF RBC, ur 0-2 0 - 2 /HPF [facility] Epithelial cells, squamous, ur 1-5 0 - 5 /HPF [facility] Epithelial cells, transitional, ur 1-5 0 - 0 /HPF [facility] Bacteria, ur Trace(A) [facility] Mucous, ur Present(A) [facility] Hyaline casts, ur 6-10 0 - 10 /LPF [facility] Urine 10/06/2024 5:51 PM GLASS CLEANING MACHINE TENDER 10/06/2024 5:58 PM GLASS CLEANING MACHINE TENDER us Aneta Castellanos MD LAB URINE ORDERABLES Final R esult [facility] Department [place] [address] * (ABNORMAL) Urinalysis reflex to microscopic (10/06/2024 5:51 PM GLASS CLEANING MACHINE TENDER) Color, ur Straw Yellow Clarity, ur Clear Clear [facility] Specific gravity, ur 1.010 1.003 - 1.030 [facility] pH, urine 6.0 [facility] Comment: Interpretive Data U rine pH is affected by diet, medications, systemic acid-base disturbances, and renal tubular function. pH may affect urinary stone formation. For example, urine pH below 6.0 may help reduce the tendency for calcium phosphate stones and pH greater than 6.0 may reduce the tendency for uric acid stone formation. Source: [facility] Current Interpretive Data was last revised on 2017 Protein, ur ql Negative Negative [facility] Glucose, ur ql Negative Negative [facility] Ketones, ur Negative Negative [facility] Bilirubin, ur Negative Negative [facility] Blood, ur Negative Negative [facility] Urobilinogen, ur <2.0 <2.0 mg/dL [facility] Nitrite, ur Negative Negative [facility] Leukocyte esterase, ur Trace(A) Negative [facility] UA reflex comment Reflex to microscopic UA will be performed. [facility] Urine 10/06/2024 5:51 PM GLASS CLEANING MACHINE TENDER 10/06/2024 5:58 PM GLASS CLEANING MACHINE TENDER us Aneta Castellanos MD LAB URINE ORDERABLES Final R esult [facility] [address] [facility] [place] [address] * (ABNORMAL) Comprehensive metabolic panel (10/06/2024 3:59 PM GLASS CLEANING MACHINE TENDER) Sodium 143 135 - 145 mmol/L Potassium, pl 4.3 3.3 - 4.9 mmol/L [facility] Chloride 104 97 - 110 mmol/L [facility] CO2 26 22 - 32 mmol/L [facility] Anion gap 13 2 - 15 mmol/L [facility] BUN 26(H) 6 - 25 mg/dL [facility] Creatinine 1.12 0.80 - 1.30 mg/dL [facility] Glucose 94 70 - 199 mg/dL [facility] Comment: Interpretive Data Fasting glucose >/= [...] 2022. Calcium 9.1 8.5 - 10.3 mg/dL [facility] Bilirubin, total 0.4 0.1 - 1.2 mg/dL [facility] Protein, pl 7.1 6.5 - 8.5 g/dL [facility] Albumin 3.9 3.5 - 5.0 g/dL [facility] Alk phos 45 40 - 130 Units/L [facility] ALT 15 7 - 55 Units/L [facility] AST 37 10 - 50 Units/L [facility] Blood 10/06/2024 3:59 PM GLASS CLEANING MACHINE TENDER 10/06/2024 4:09 PM GLASS CLEANING MACHINE TENDER Aneta Castellanos MD LAB BLOOD ORDERABLES Final R esult [facility] [place] [address] * eGFR (10/06/2024 3:59 PM GLASS CLEANING MACHINE TENDER) eGFR 64 >=60 mL/min/1. 73 m2 Comment: [...] last reviewed 2021. Blood 10/06/2024 3:59 PM GLASS CLEANING MACHINE TENDER 10/06/2024 4:26 PM GLASS CLEANING MACHINE TENDER Aneta Castellanos MD LAB BLOOD ORDERABLES Final R esult [facility] [address] [facility] [place] [address] * Respiratory pathogen panel Nasopharyngeal (10/06/2024 3:59 PM GLASS CLEANING MACHINE TENDER) Pathologist [facility] Influenza A RNA Not Detected Not Detected Influenza B RNA Not Detected Not Detected [facility] RSV RNA Not Detected Not Detected [facility] COVID-19 RNA Not Detected Not Detected [facility] Coronavirus 229E RNA Not Detected Not Detected [facility] Coronavirus HKU1 RNA Not Detected Not Detected [facility] Coronavirus NL63 RNA Not Detected Not Detected [facility] Coronavirus OC43 RNA Not Detected Not Detected [facility] Adenovirus DNA Not Detected Not Detected [facility] Metapneumovirus RNA Not Detected Not Detected [facility] Rhinovirus/Enterov irus RNA Not Detected Not Detected [facility] Parainfluenza 1 RNA Not Detected Not Detected [facility] Parainfluenza 2 RNA Not Detected Not Detected [facility] Parainfluenza 3 RNA Not Detected Not Detected [facility] Parainfluenza 4 RNA Not Detected Not Detected [facility] B. pertussis DNA Not Detected Not Detected [facility] B. parapertussis DNA Not Detected Not Detected [facility] C. pneumoniae DNA Not Detected Not Detected [facility] M. pneumoniae DNA Not Detected Not Detected [facility] Nasopharyngeal 10/06/2024 3: 59 PM GLASS CLEANING MACHINE TENDER 10/06/2024 4:19 PM GLASS CLEANING MACHINE TENDER Narrative [facility] - 10/06/2024 6:14 PM GLASS CLEANING MACHINE TENDER Is the Patient experiencing symptoms consistent with COVID?->No Surveillance testing for transplant patient?->No Interpretive Data The Hema[employer] FilmArray Respiratory Panel (RP2.1) assay is a [...] assay has FDA clearance for testing of BLOW UP OPERATOR swabs. The performance of additional specimen types has been assessed by the performing laboratory. The performance characteristics of this assay have been determined by [facility] Molecular Infectious Disease Laboratory. Current interpretive data was last revised on 22. us Oralia Cummings MD LAB MICROBIOLOGY - GENERAL OR DERABLES Final Result [facility] [place] [address] * Vitamin B12 (10/06/2024 3:59 PM GLASS CLEANING MACHINE TENDER) [facility] Vitamin B12 420 230 - 1,250 pg/mL Blood 10/06/2024 3:59 PM GLASS CLEANING MACHINE TENDER 10/06/2024 4:09 PM GLASS CLEANING MACHINE TENDER us Oralia Cummings MD LAB BLOOD ORDERABLES Final Re sult Performing Organization Address [facility] Co de Phone Number [facility] Department [place] [address] * TSH (10/06/2024 3:59 PM GLASS CLEANING MACHINE TENDER) [facility] Thyroid Stimulating Hormone 3.88 0.30 - 4.20 mcIUnit/mL Blood 10/06/2024 3:59 PM GLASS CLEANING MACHINE TENDER 10/06/2024 4:09 PM GLASS CLEANING MACHINE TENDER us Oralia Cummings MD LAB BLOOD ORDERABLES Final Re sult Performing Organization Address [facility] de Phone Number [facility] [place] [address] * (ABNORMAL) CBC without differential (10/06/2024 3:59 PM GLASS CLEANING MACHINE TENDER) [facility] WBC 6.8 3.8 - 9.9 K/cumm Hgb 11.5(L) 13.0 - 17.5 g/dL [facility] Hct 34.1(L) 38.9 - 50.3 % [facility] Plt 162 150 - 400 K/cumm [facility] MPV 11.4 9.1 - 12.3 fL [facility] RBC 3.72(L) 4.30 - 5.80 M/cumm [facility] MCV 91.7 81.3 - 96.4 fL [facility] MCH 30.9 27.1 - 33.3 pg [facility] MCHC 33.7 32.3 - 35.7 g/dL [facility] RDW CV 14.7 11.1 - 14.9 % [facility] RDW SD 49.6(H) 35.7 - 48.1 fL [facility] NRBC abs 0.00 0.00 - 0.01 K/cumm [facility] Blood 10/06/2024 3:59 PM GLASS CLEANING MACHINE TENDER 10/06/2024 4:26 PM GLASS CLEANING MACHINE TENDER us Priscilla Sarmiento MD LAB BLOOD ORDERABLES Final R esult [facility] [place] [address] * CT Head WO Contrast (10/06/2024 3:37 PM GLASS CLEANING MACHINE TENDER) Anatomical Region Laterality Modality Head and Neck N/A Computed Tomogra phy 10/06/2024 4:29 PM GLASS CLEANING MACHINE TENDER Impressions 10/06/2024 4:41 PM GLASS CLEANING MACHINE TENDER No acute intracranial hemorrhage, large vessel territory infarction, mass effect, or midline shift. Dictated by: Nikolas Vega M.D. The radiology attending physician has personally reviewed this study, and had reviewed and/or edited this written report and agrees with it. Electronically signed by: Johnny Ballesteros M.D, PHD Narrative 10/06/2024 4:41 PM GLASS CLEANING MACHINE TENDER EXAMINATION: CT head without contrast HISTORY: Altered [...] PA Lateral 2 Views (10/06/2024 3:30 PM GLASS CLEANING MACHINE TENDER) Anatomical Region Laterality Modality Body, Chest N/A Computed Radiogr aphy 10/06/2024 3:42 PM GLASS CLEANING MACHINE TENDER Impressions 10/06/2024 3:49 PM GLASS CLEANING MACHINE TENDER Comparison with chest radiograph dated 07/12/2025. Median [...] Luna Perez M.D. Narrative 10/06/2024 3:49 PM GLASS CLEANING MACHINE TENDER EXAMINATION: 2 view chest radiograph Procedure Note [...] lt * ECG 12-LEAD (10/06/2024 1:07 PM GLASS CLEANING MACHINE TENDER) Narrative [facility] - 10/06/2024 1:07 PM GLASS CLEANING MACHINE TENDER Nupur Orozco MD 10/06/2024 1:08 PM ECG 12 lead Date/Time: 10/06/2024 1:07 PM Performed by: Nupur Orozco MD Authorized by: Jaylen Petersen MD Comments: EKG Interpretation Interpreted by ED physician in absence of a clothing supervisor Ventricular rate: 65 bpm Rhythm: sinus with PACs Mcallen: Normal Intervals: 1st degree av block, wide QRS Other findings: no acute ischemia Interpretation: abnormal EKG, LBBB, ectopy Compared to priors: no priors for comparison Aneta Castellanos MD ECG ORDERABLES Final Result Performing Organization Address [facility] Co de Phone Number [facility] * POCT glucose (10/06/2024 12:48 PM GLASS CLEANING MACHINE TENDER) [facility] Signature Glucose, POC 112 70 - 199 mg/dL Blood 10/06/2024 12:4 8 PM GLASS CLEANING MACHINE TENDER 10/06/2024 12:48 PM GLASS CLEANING MACHINE TENDER Notinfile Unknown LAB POCT ORDERABLES - DEVICE F inal Result Performing Organization Address City/[facility]/ZIP Co de Phone Number [facility] [place] [address] documented in this encounter Visit Diagnoses Diagnosis Altered mental status, unspecified altered mental status type- Primary documented in this encounter Orders Lab Orders Without Results Count Last Ordered D ate First Ordered Date POCT GLUCOSE DEVICE 2 10/06/2024 Nursing Count Last Ordered Date First Orde red Date STRAIGHT CATH 1 10/06/2024 documented in this encounter Additional Health Concerns Active Problems Noted Date Diagnosed Date Initial Follow-Up Appointment 09/15/2024 Note: Pt hospitalized for SOB. Hx HFpEF (50%), A.Fib, HTN, HLD, s/p bioprosthetic valve replacements x 2, DM, and BPH. Epic risk 17 Knowledge Deficit Concerning CHF 09/15/2024 documented as of this encounter Care Teams Account Underwriter Relationship Specialty Start Date End Date Barry Ralph MD PCP - General Family Practice 05/22/24 Rehan Sheth MD [address] [facility] [address] [place] [address] Consulting Physician Cardiology 09/09/24 Sangita Moore, RN [address] [facility] [address] [place] [address] SHOP Outpatient Litigation Counsel 09/15/24 documented as of this encounter
--- OUTSIDE RECORDS SUMMARY | 2024-10-08 15:07 | XMS_ITS | Encounter Summary ---
Author Organization [facility] Healthcare Address [address] [place] [address] Care Team Providers Care Cart Attendant Name Role Phone Barry Ralph MD Primary Care Provider [phone] Barry Ralph MD Primary Care Provider [phone] Rosalee Crowder CLOTHES DRIER ASSEMBLER Unavailable [phone] Rehan Sheth MD Unavailable Sangita Moore RN Unavailable Encounter Details Date Type Department Care Team (Late st Contact Info) Description 02/26/2024 Telephone [facility] [place] [facility] [address] [facility] [address] [place] [address] Aleksander Shankar MD [address] [place] [address] Social History Tobacco Use Types Packs/Day Years Used Date Smoking Tobacco: Never Smokeless Tobacco: Never [facility] Utilities Answer Date Recorded In [...] any clubs o r organizations such as spiritism groups, unions, fraternal or athletic groups, or [...] staff should administer the PHQ-9) 0 05/13/2021 [facility] [place] [facility] Occupat ional Health - Occupational Stress [...] a care home (including now)? No 01/01/2024 Personal Safety Answer Date Recorded Have you ever been in or are you currently in a harmful physical or emotional relationship or is someone making you feel afraid or unsafe? Denies 12/19/2023 Sex and Gender Information Value Date Recorded Sex Assigned at Not on file Legal Sex Male 8:23 PM CLOTH DYER Gender Identity Not on file Sexual Orientation Not on file documented as of this encounter Plan of Treatment Not on file documented as of this encounter Goals Goal Patient Goal Type Associated Problems Recent Progress Patient-Stated? Author CCM Chronic Pain Care Plan Chronic Care Management Improving( 10:49 AM CLOTH DYER) No Nenita Santiago, RN Note: Problem: Chronic [...] to 92 09/12/2024 09/12/2024 09/19/2024 3:07 AM CLOTH DYER documented as of this encounter Care Teams Cart Attendant Relationship Specialty Start Date End Date Barry Ralph MD PCP - General Family Practice 10/20/22 05/20/24 Barry Ralph MD PCP - General Family Practice 05/22/24 Rosalee Crowder, [facility] [address] [facility] ([facility]) Mailstop [phone] [place] [address] SHOP Outpatient Ground Crewman Aircraft Support 05/22/24 06/19/24 Rehan Sheth MD [address] [facility] [address] [place] [address] Consulting Physician Cardiology 09/09/24 Sangita Moore, RN [address] [facility] [address] [place] [address] SHOP Outpatient Ground Crewman Aircraft Support 09/15/24 documented as of this encounter
--- OUTSIDE RECORDS SUMMARY | 2024-10-08 15:07 | XMS_ITS ---
Care Plan Created on: October 08, 2024 Ashkan Pryor : 1940 Sex: Male Author Organization [facility] Address [address] [place] [address] Care Team Providers Care Aoc Director Combat Operations Officer Name Role Phone Barry Ralph MD Primary Care Provider [phone] Rehan Sheth MD Unavailable Sangita Moore RN Unavailable [phone] Active Problems Problem Noted Date Diagnosed Date Chest pain, unspecified type 09/11/2024 Coronary artery disease invo lving [place] coronary artery of [place] heart with angina pectoris 09/10/2024 Internal carotid artery stenosis, right 06/12/20 Chronic heart failure with p reserved ejection fraction ([facility]/HCC) 06/12/2024 Stage 2 chronic kidney disease 06/12/2024 Thrombocytopenia 06/12/2024 Bilateral leg weakness 06/06/2024 NSTEMI (non-ST elevated myocardial infarction) ( [facility]) 05/20/2024 Assessment & Plan (05/21/2024 11:10 AM CDT): Repeat [facility] on 05/20/2024 showed: 60-70% lesion to mid LAD (with a positive IFR of 0.78) and a 90% lesion lesion to ostial circ; RCA with a known MARINE EQUIPMENT ENGINEER (angiography not performed). -s/p Successful PCI to [...] Plan (05/20/2024 11:34 AM CDT): Went to [facility] 05/17 for SOB, new 2L O2 requirement - OSH workup: Trp 1.95>5.1>10, proBNP 6800, CXR w/ mild interstitial edema - OSH [facility] 05/19 w/ L main widely patent, LAD proximal body 80% stenosis, LAD stent w/ moderate ISR, L cx w/ 95% stenosis in proximal body, OM branches w/ mild disease, RCA is MARINE EQUIPMENT ENGINEER in mid body w/ L to R collaterals - cath films uploaded - OSH TTE reportedly w/ EF 50%, AV prosthesis w/o abnormal gradients - trop here 7,1768, repeat pending - currently denies chest pain or pressure, sob improving - PCI today - continue heparin drip - continue asa, coreg, atorvastatin 80mg - telemetry Assessment & Plan (05/20/2024 1:02 AM CDT): Went to [facility] 05/17 for SOB, new 2L O2 requirement - OSH workup: Trp 1.95>5.1>10, proBNP 6800, CXR w/ mild interstitial edema - OSH [facility] 05/19 w/ L main widely patent, LAD proximal body 80% stenosis, LAD stent w/ moderate ISR, L cx w/ 95% stenosis in proximal body, OM branches w/ mild disease, RCA is MARINE EQUIPMENT ENGINEER in mid body w/ L to R [...] Assessment & Plan (05/21/2024 10:58 AM CDT): [facility] 05/17 for [...] Assessment & Plan (05/20/2024 11:50 AM CDT): [facility] 05/17 for [...] Assessment & Plan (05/20/2024 1:00 AM CDT): [facility] 05/17 for [...] salt diet Acute on chronic heart failure ([facility]) 024 Assessment & Plan (05/21/2024 10:56 AM [...] benefi Assessment & Plan (07/04/2024 1:02 PM POSTDOCTORAL RESEARCH FELLOW): He may just be symptomatic from his [...] Assessment & Plan (03/17/2024 1:48 PM CDT): Psychiatry Instructor stenosis and 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 Still [...] stenosis. Assessment & Plan (07/04/2024 1:03 PM POSTDOCTORAL RESEARCH FELLOW): Failed LMBB. Assessment & Plan (04/23/2024 5:41 [...] Encounter for Medicare annual wellness exam 05/20 half-way (current) use of anticoagulants [Z79.0 1] 03/27/2018 Atrial fibrillation ([facility]) [I48.91] 8 Overview (09/04/2018): Dr. Sheth helps [...] quiescent Assessment & Plan (09/04/2018 10:33 AM POSTDOCTORAL RESEARCH FELLOW): COPD is unchanged. COPD information handout given. [...] to PT - wants to go to [facility]. Trial robaxin. Flexeril on med list [...] no Assessment & Plan (10/01/2019 10:35 AM POSTDOCTORAL RESEARCH FELLOW): S2 makes a wonderfully crisp snap w/o any regurge Gastroesophageal reflux disease 09/17/2014 Tussive syncope 08/25/2014 Syncope and collapse 08/21/2014 Syncope 08/21/2014 Type 2 diabetes mellitus 07/10/2014 Overview (05/13/2021): Was on levemir but stopped 2015 then on trulicity so on metformin ALONE We had better control w/ Jardiance -since he has been w/ Dr Stockton [phone] has been on Actose and metformin- Off [...] heart- Assessment & Plan (10/01/2019 10:30 AM POSTDOCTORAL RESEARCH FELLOW): His A1C has crept to 7.5% Admits [...] covered Assessment & Plan (09/04/2018 10:42 AM POSTDOCTORAL RESEARCH FELLOW): Diabetes is worsening. Continue current treatment regimen. Reminded to bring in blood sugar diary at next visit. Dietary recommendations for ADA diet. Regular aerobic exercise. Discussed foot care. Reminded to get yearly retinal exam. Diabetes will be reassessed in 3 months. Given his financial concerns my advice is to use food as Piki medicine Obesity with body mass index 30 or greater 07/09 Generalized anxiety disorder 07/09/2014 Assessment & Plan (10/01/2019 10:32 AM POSTDOCTORAL RESEARCH FELLOW): He gets along nicely w/ a low [...] Plan Chronic Care Management Improving( 10:49 AM POSTDOCTORAL RESEARCH FELLOW) No Nenita Santiago, RN Note: Problem: Chronic [...] Care Plan Interventions Intervention Entry Date Outcome Ensure Pt has follow-up scheduled within 7 days of discharge 09/15/2024 Related Goals and Interventions Goal Associated Intervent ions Patient will have kept initi al appointment and will show signs of improvement to baseline Ensure Pt has follow-up scheduled within 7 days of discharge
--- OUTSIDE RECORDS SUMMARY | 2024-10-08 15:07 | XMS_ITS | Encounter Summary ---
Author Organization [facility] Healthcare Address [address] [place] [address] Care Team Providers Care Principal Systems Architect Name Role Phone Barry Ralph MD Primary Care Provider [phone] Rehan Sheth MD Unavailable [phone] Sangita Moore RN Unavailable [phone] Reason for Visit * Reason Comments Successfully Completed Encounter Details Date Type Department Care Team (Late st Contact Info) Description 10/08/2024 SHOP/CHAP Subsequent Outreach [facility] OP CASE MANAGEMENT [address] [place] [address] Sangita Moore, RN [address] [facility] [address] [place] [address] Social History Tobacco Use Types Packs/Day Years Used Date Smoking Tobacco: Never Smokeless Tobacco: Never [facility] Utilities Answer Date Recorded In the past 12 months has [employer] electric, gas, oil, or water company threatened [...] How often do you attend chur or pentecostal services? More than 4 times per year 09/15/2024 Do you belong to any clubs o r organizations such as nondenominational groups, unions, fraternal or athletic groups, or [...] Date Recorded PHQ-2 Total Score 0 09/12/2024 [facility] Answer Date [...] in the past 12 m [facility], were you homeless or living in a prison (including now)? No 09/15/2024 Personal Safety Answer Date Recorded Have you ever been in or are you currently in a harmful physical or emotional relationship or is someone making you feel afraid or unsafe? Denies 10/06/2024 Sex and Gender Information Value Date Recorded Sex Assigned at Not on file Legal Sex Male 8:23 PM BRAILLE TRANSCRIBER Gender Identity Not on file Sexual Orientation Not on file documented as of this encounter Progress Notes * Sangita Moore RN - 10/08/2024 10:56 AM CST OCM spoke with patient's for SHOP follow up call. Pt is still not feeling well. He is stillingat the table with his head down. His is very worried. He has appointment with PCP this afternoon. He was in the ED on 10/06 altered mental status and had a thorough work up here at [facility]. Previously on 10/03 he had cardiac cath. RT wrist healing well. OCM to continue to follow and reminded patient/family to call OCM for questions or concerns. d LLE TRANSCRIBER documented in this encounter Plan of Treatment Not on file documented as of this encounter Goals Goal Patient Goal Type Associated Problems Recent Progress Patient-Stated? Author CCM Chronic Pain Care Plan Chronic Care Management Improving( 10:49 AM BRAILLE TRANSCRIBER) No Nenita Santiago, RN Note: Problem: Chronic [...] documented as of this encounter Care Teams Principal Systems Architect Relationship Specialty Start Date End Date Barry Ralph MD PCP - General Family Practice 05/22/24 Rehan Sheth MD [address] [facility] [address] [place] [address] Consulting Physician Cardiology 09/09/24 Sangita Moore, RN [address] [facility] [address] [place] [address] SHOP Outpatient Pastry Baker 09/15/24 documented as of this encounter
--- OUTSIDE RECORDS SUMMARY | 2024-10-08 15:07 | XMS_ITS | Clinical Summary ---
Author Organization [facility] Address [address] [place] [address] Care Team Providers Care Bus Repair Supervisor Name Role Phone Barry Ralph MD Primary Care Provider [phone] Rehan Sheth MD Unavailable Sangita Moore RN Unavailable [phone] Allergies No known active allergies Medications albuterol HFA (PROVENTIL HFA,VENTOLIN HFA,PROAIR HFA) 90 mcg/actuation inhaler Inhale 2 puffs as needed for shortness of breath 015 Active True Metrix Glucose Meter kit USE DIRECTED 1 kit 021 Active lancets (OneTouch Delica Plus Lancet) 30 gauge miscIndications:Ty pe 2 diabetes mellitus with hyperosmolarity without coma, without long-term current use of insulin ([facility]) ([facility]) Use to check blood sugar 3x daily 300 each 2 Active blood glucose diagnostic (True Metrix Glucose Test Strip) stripIndications:T ype 2 diabetes mellitus with hyperosmolarity without coma, without long-term current use of insulin ([facility]) ([facility]) TEST BLOOD SUGAR EVERY DAY [...] tablet (20 mEq total) by mouth daily 025 Active furosemide (LASIX) 40 mg tablet [...] type 09/11/2024 Coronary artery disease invo lving [place] coronary artery of [place] heart with angina pectoris 09/10/2024 Internal carotid artery stenosis, right 06/12/20 Chronic heart failure with p reserved ejection fraction (CMS/HCC) 06/12/2024 Stage 2 chronic kidney disease 06/12/2024 Thrombocytopenia 06/12/2024 Bilateral leg weakness 06/06/2024 NSTEMI (non-ST elevated myocardial infarction) ( [facility]/HCC) 05/20/2024 Assessment & Plan (05/21/2024 11:10 AM CDT): Repeat [facility] on 05/20/2024 showed: 60-70% lesion to mid LAD (with a positive IFR of 0.78) and a 90% lesion lesion to ostial circ; RCA with a known FINANCIAL COORDINATOR (angiography not performed). -s/p Successful PCI to high-grade LAD and circumflex with 2 ADRIAN. Plans 1. Clopidogrel 75 mg a day [...] Plan (05/20/2024 11:34 AM CDT): Went to [facility] 05/17 for SOB, new 2L O2 requirement - OSH workup: Trp 1.95>5.1>10, proBNP 6800, CXR w/ mild interstitial edema - OSH [facility] 05/19 w/ L main widely patent, LAD proximal body 80% stenosis, LAD stent w/ moderate ISR, L cx w/ 95% stenosis in proximal body, OM branches w/ mild disease, RCA is FINANCIAL COORDINATOR in mid body w/ L to R collaterals - cath films uploaded - OSH TTE reportedly w/ EF 50%, AV prosthesis w/o abnormal gradients - trop here 7,1243, repeat pending - currently denies chest pain or pressure, sob improving - PCI today - continue heparin drip - continue asa, coreg, atorvastatin 80mg - telemetry Assessment & Plan (05/20/2024 1:02 AM CDT): Went to [facility] 05/17 for SOB, new 2L O2 requirement - OSH workup: Trp 1.95>5.1>10, proBNP 6800, CXR w/ mild interstitial edema - OSH [facility] 05/19 w/ L main widely patent, LAD proximal body 80% stenosis, LAD stent w/ moderate ISR, L cx w/ 95% stenosis in proximal body, OM branches w/ mild disease, RCA is FINANCIAL COORDINATOR in mid body w/ L to R [...] Assessment & Plan (05/21/2024 10:58 AM CDT): /[facility] 05/17 for SOB, on 3.5L now [...] Assessment & Plan (05/20/2024 11:50 AM CDT): /t [facility] 05/17 for SOB, on 3.5L [...] salt diet Acute on chronic heart failure ([facility]) 024 Assessment & Plan (05/21/2024 [...] benefi Assessment & Plan (07/04/2024 1:02 PM ERP BUSINESS ANALYST): He may just be symptomatic from his [...] Assessment & Plan (03/17/2024 1:48 PM CDT): Loft Worker stenosis and 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 Still [...] stenosis. Assessment & Plan (07/04/2024 1:03 PM ERP BUSINESS ANALYST): Failed LMBB. Assessment & Plan (04/23/2024 5:41 [...] Encounter for Medicare annual wellness exam 05/20 skilled nursing (current) use of anticoagulants [Z79.0 1] 03/27/2018 Atrial fibrillation ([facility]) [I48.91] 8 Overview (09/04/2018): Dr. Sheth helps [...] quiescent Assessment & Plan (09/04/2018 10:33 AM ERP BUSINESS ANALYST): COPD is unchanged. COPD information handout given. [...] to PT - wants to go to [facility]. Trial robaxin. Flexeril on med list but [...] no Assessment & Plan (10/01/2019 10:35 AM ERP BUSINESS ANALYST): S2 makes a wonderfully crisp snap w/o any regurge Gastroesophageal reflux disease 09/17/2014 Tussive syncope 08/25/2014 Syncope and collapse 08/21/2014 Syncope 08/21/2014 Type 2 diabetes mellitus 07/10/2014 Overview (05/13/2021): Was on levemir but stopped 2015 then on trulicity so on metformin ALONE We had better control w/ Jardiance -since he has been w/ Dr Stockton [phone] has been on Actose and metformin- Off [...] (12/20/2023 9:28 AM CDT): Chronic. Maintains on glipizideAlexandreunarnulfo at home with plan to hold these [...] heart- Assessment & Plan (10/01/2019 10:30 AM ERP BUSINESS ANALYST): His A1C has crept to 7.5% Admits [...] covered Assessment & Plan (09/04/2018 10:42 AM ERP BUSINESS ANALYST): Diabetes is worsening. Continue current treatment regimen. Reminded to bring in blood sugar diary at next visit. Dietary recommendations for ADA diet. Regular aerobic exercise. Discussed foot care. Reminded to get yearly retinal exam. Diabetes will be reassessed in 3 months. Given his financial concerns my advice is to use food as [facility] medicine Obesity with body mass index 30 or greater 07/09 Generalized anxiety disorder 07/09/2014 Assessment & Plan (10/01/2019 10:32 AM ERP BUSINESS ANALYST): He gets along nicely w/ a low [...] Type Department Care Team Description 10/08/2024 Documentation [facility] [address] [place] [address] Yvonne Tanner, TIM 10/08/2024 SHOP/CHAP Subsequent Outreach [facility] [address] [place] [address] Sangita Moore RN 10/07/2024 Telephone [facility] 8th [place] [address] [place] [address] Rehan Sheth MD shortness of breath/anxiety 10/07/2024 SHOP/CHAP Subsequent Outreach [facility] [address] [place] [address] Sangita Moore RN 10/06/2024 2:18 PM ERP BUSINESS ANALYST - 10/06/2024 7:30 PM [facility] Emergency [facility] [address] [place] [address] Aneta Castellanos MD Altered mental status, unspecified altered mental status type (Primary Dx) Discharge Disposition: Discharge to home or self care 10/06/2024 SHOP/CHAP Subsequent Outreach [facility] [address] [place] [address] Sangita Moore RN 10/06/2024 Results Follow-Up [facility] [address] [place] [address] 8th [place] [address] [place] [address] Amanda Chatman RN 10/06/2024 Telephone [facility] [address] [place] [address] 8th [place] [address] [place] [address] Rehan Sheth MD Symptoms 10/03/2024 10:45 AM [facility] - 10/03/2024 12:00 PM [facility] Surgery [facility] [address] [place] [phone] Nigel Holman MD Right Left Heart Catheterization with Coronary Angiography with or without Left Ventriculography [id number] 10/03/2024 7:50 AM ERP BUSINESS ANALYST - 10/03/2024 5:48 PM [facility] Hospital [facility] [address] [address] Nigel Holman MD Chest pain, unspecified type (Primary Dx); Chronic systolic heart failure (CMS/HCC) (HCC); Coronary artery disease involving [place] coronary artery of [place] heart with angina pectoris (HCC); Acute on chronic heart failure, unspecified heart failure type (HCC); Paroxysmal atrial fibrillation (CMS/HCC) (HCC); History of aortic valve replacement Discharge Disposition: Discharge to home or self care 09/30/2024 SHOP/CHAP Subsequent Outreach [facility] [address] [place] [address] Sangita Moore RN 09/26/2024 SHOP/CHAP Subsequent Outreach [facility] [address] [place] [address] Sangita Moore RN 09/25/2024 Orders Only [facility] [address] [place] [address] [place] [address] [place] [phone] Naila Cortez RN High risk medications (not anticoagulants) long-term use (Primary Dx) 09/25/2024 Telephone [facility] [address] [place] [address] [place] [address] [place] [phone] Rehan Sheth MD 09/24/2024 7:40 PM ERP BUSINESS ANALYST Lab [facility] ([facility]) [address] [place], [place] [phone] Chronic heart failure with preserved ejection fraction (CMS/HCC) (HCC) 09/24/2024 3:15 PM ERP BUSINESS ANALYST Office Visit [facility] [address] [place] [address] [place] [address] [place] [phone] Rehan Sheth MD Chronic heart failure with preserved ejection fraction (CMS/HCC) (HCC) (Primary Dx); History of aortic valve replacement; Benign essential hypertension; Paroxysmal atrial fibrillation (CMS/HCC) (HCC) 09/24/2024 Telephone [facility] [address] [place] [address] [place] [address] [place] [phone] Rehan Sheth MD cardiac cath 09/23/2024 SHOP/CHAP Subsequent Outreach [facility] [address] [place] [phone] Sangita Moore, RN 09/17/2024 SHOP/CHAP Subsequent Outreach [facility] [address] [place] [address] Sangita Moore, RN 09/15/2024 SHOP/CHAP Initial Outreach [facility] [address] [place] [address] Sangita Moore, RN 09/15/2024 Telephone [facility] [address] [place] [address] [facility] 8th [place] [address] [place] [address] Rehan Sheth MD f/u orders 09/15/2024 SHOP/CHAP Initial Eligibility Review [facility] [address] [place] [address] Sangita Moore RN 09/11/2024 12:49 PM ERP BUSINESS ANALYST - 09/14/2024 12:22 PM ERP BUSINESS ANALYST Hospital Encounter [address] [address] Joseph Lucas MD [place], MD Melissa King, Dalila Jean MD Chest pain, unspecified type (Primary Dx) Discharge Disposition: Discharge to home or self care 09/11/2024 Documentation [facility] [address] [place] [address] [facility] 8th [place] [address] [place] [address] Rehan Sheth MD 09/11/2024 Telephone [facility] [address] [place] [address] [facility] 8th [place] [address] [place] [address] Rehan Sheth MD Symptoms update 09/10/2024 12:25 PM ERP BUSINESS ANALYST Lab [facility] [address] [place] [phone] Chronic heart failure with preserved ejection fraction (CMS/HCC) (HCC) 09/10/2024 11:15 AM ERP BUSINESS ANALYST Office Visit [facility] [address] [place] [address] [facility] 8th [place] [address] [place] [phone] Rehan Sheth MD Chronic heart failure with preserved ejection fraction (CMS/HCC) (HCC) (Primary Dx); Coronary artery disease involving [place] coronary artery of [place] heart with angina pectoris (HCC) 09/10/2024 Telephone [facility] [address] [facility] 8th [place] [address] [place] [address] Rehan Sheth MD Cardiac Clearance request 09/10/2024 Telephone [facility] [address] [facility] 8th [place] [address] [place] [address] Rehan Sheth MD Chest symptoms 09/09/2024 Telephone [facility] [address] [place] [address] 8th [place] [address] [place] [address] Rehan Sheth MD Samples/and report of ER eval 09/01/2024 Telephone [facility] [address] [place] [address] Office [facility] [address] [place] [address] Clayton Robertson DO 08/26/2024 12:30 PM ERP BUSINESS ANALYST Office Visit [facility] [address] [place] [address] Office [facility] 4 [address] [place] [address] Clayton Robertson DO 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) 08/26/2024 11:32 AM ERP BUSINESS ANALYST - 08/26/2024 11:59 PM ERP BUSINESS ANALYST Hospital Encounter [facility] [address] [place] [address] [address] [place] [address] Lumbar spondylosis; Chronic bilateral low back pain, unspecified whether sciatica present Discharge Disposition: Discharge to home or self care 08/06/2024 Orders Only [facility] [address] [place] [address] Office [facility] [address] [place] [address] Clayton Robertson DO Lumbar spondylosis (Primary Dx); Chronic bilateral low back pain, unspecified whether sciatica present from Last 3 Months Immunizations Immunization Administration Dates Next Due Influenza, [...] 03/19/2016 Surgical History Surgery Date Site/Laterality Comments SD LASER VAPORIZATION OF PROSTATE FOR URINE FLOW Laser Vaporization With Transurethral Resection Of Prostate - (Added by TW Conv) SD RPLCMT PROST AORTIC VALVE OPEN XCP HOMOGRF/STENT Aortic Valve Replacement - (Added by TW Conv) BIOPSY DEEP BONE 12/21/2023 N/A CARDIAC CATHETERIZATION 10/03/2024 N/A Procedure: Right Left Heart Catheterization with Coronary Angiography with or without Left Ventriculography [id number]; Surgeon: Nigel Holman MD; Location: [facility] CARDIAC RADIO PROGRAM DIRECTOR; Service: Cardiovascular; Laterality: N/A; Cp, SOB, CAD Cath with PCI [facility] 05/21/[address] Pedroza. On glucatrol, will instruct to hold AM of test On plavix and apixaban. Will instruct pt to take last dose of apixa Medical devices from this surgery are in the Medical Devices section. Medical History Medical History Date Comments Personal [...] Cancer Father Diabetes Father Heart attack Father [place] @ 44 y/o Heart disease Father Family history of cardiac disorder - (Added by TW Conv) Cancer Mother Family history of malignant neoplasm - (Added by TW Conv) Diabetes Mother Relation Name Status Comments Father Mother Social History Tobacco Use Types Packs/Day Years Used Date Smoking Tobacco: Never Smokeless Tobacco: Never Tobacco Cessation:Counseling Given: Not Answered [facility] Utilities Answer Date Recorded In the past 12 months has th e [employer] gas, oil, or water Teach Me To Be threatened to shut off services in your [...] week 09/15/2024 How often do you attend [facility] or buddhist services? More than 4 times per year 09/15/2024 Do you belong to any clubs o r organizations such as temple groups, unions, fraternal or athletic groups, or [...] place to sleep or slept in a custodial (including now)? No 01/01/2024 Housing Stability Vital [...] were you homeless or living in a custodial (including now)? No 09/15/2024 Personal Safety Answer Date Recorded Have you ever been in or are you currently in a harmful physical or emotional relationship or is someone making you feel afraid or unsafe? Denies 10/06/2024 Sex and Gender Information Value Date Recorded Sex Assigned at Not on file Legal Sex Male 8:23 PM ERP BUSINESS ANALYST Gender Identity Not on file Sexual Orientation Not on file Obstetrics History Last Filed Vital Signs Vital Sign Reading Time Taken Comments Blood Pressure 113/56 10/06/2024 6:55 PM ERP BUSINESS ANALYST Pulse 66 10/06/2024 6:55 PM ERP BUSINESS ANALYST Temperature 36.6 C (97.9 F) 10/06/2024 12:33 PM ERP BUSINESS ANALYST Respiratory Rate 10 10/06/2024 6:55 PM ERP BUSINESS ANALYST Oxygen Saturation 96% 10/06/2024 6:55 PM ERP BUSINESS ANALYST Inhaled Oxygen Concentration - - Weight 99.8 kg (220 lb) 10/06/2024 12:33 PM ERP BUSINESS ANALYST Height 182.9 cm (6') 10/06/2024 12:33 PM ERP BUSINESS ANALYST Body Mass Index 29.84 10/06/2024 12:33 PM ERP BUSINESS ANALYST Plan of Treatment Health Maintenance Due Date Last Done Comments Albumin Creatinine Ratio, Urine 1940 Hepatitis B Screening 1958 Zoster Vaccine (2 of 3) 05/14/2016 03/19/2016 Dilated Eye Exam 05/05/2020 05/05/2019 Foot Exam 11/05/2021 11/05/2020, 06/04/2019 Well Visit 65+ 11/05/2021 11/05/2020, 06/04/2019 Covid-19 Vaccine ( - 2023-2 5 season) 2024 05/16/2022, 10/23/2020, 09/25/2020 Hemoglobin A1C 12/06/2024 06/07/2024, 0804/2022, 11/10/2021, Additional history exists Lipid Panel 06/07/2025 06/07/2024, 10/0 08/2023, 11/05/2020, Additional history exists Depression Screening 09/11/2025 09/11/2024, 05/13/2021, 11/05/2020, Additional history exists Fall Risk Assessment 10/03/2025 10/03/2024, 11/05/2020, 06/04/2019 eGFR 10/06/2025 10/06/2024, 09/20, 09/29/2024, Additional history exists DTaP/Tdap/Td Vaccine (5 - Td or Tdap) 05/05/2029 05/05/2019, 03/08/2019, 02/24/2019, Additional history exists Pneumococcal vaccine 65+ Completed 06/04/2019, 06/21 Influenza Vaccine Completed 09/12/2024, , 06/02/2020, Additional history exists Goals Goal Patient Goal Type Associated Problems Recent Progress Patient-Stated? Author CCM Chronic Pain Care Plan Chronic Care Management Improving( 10:49 AM ERP BUSINESS ANALYST) Nenita Sanchez, RN Note: Problem: Chronic Pain [...] and vomiting. Medical Devices Implanted Type Area Movie Writer Device Identifier Shelf Expiration Date Model / Serial / Lot NoWait Medical Branden Angio-Seal Vip Bondek-Plus 8fr .038in 70cm Hemostatic Latex Free [id number] - [id number] - [id number] Implanted:Qty : 1 on 05/20/2024 by Papo Rascon MD at [facility] Collagen Right: Common Femoral Artery Terumo Medical Branden 12/10/2024 [id number] / [id number] / [id number] Prosthetic Valve Prosthetic Valve Heart Description:Heart Valve Medtronic Card Vasc Surgery 4.0 X 12mm [employer] Coronary Stent [id number] - [id number] - [id number] Implanted:Qty : 1 on 05/20/2024 by Vitor Pedroza MD at [facility] Stent N/A: Circumflex Coronary Artery Medtronic Card Vasc Surgery 01/11/2027 [id number] / [id number] / [id number] Medtronic Card Vasc Surgery 4.0 X 12mm [employer] Coronary Stent [id number] - [id number] - [id number] Implanted:Qty : 1 on 05/20/2024 by Vitor Pedroza MD at [facility] Stent Left: Anterior Descending Cornary Artery Medtronic Card Vasc Surgery 11/14/2026 [id number] / [id number] / [id number] Medtronic Card Vasc Surgery 4.0 X 18mm [employer] Coronary Stent [id number] - [id number] - [id number] Implanted:Qty : 1 on 10/03/2024 by Nigel Holman MD at [facility] Stent Left: Anterior Descending Cornary Artery Medtronic Card Vasc Surgery 04/14/2027 [id number] / [id number] / [id number] Description:Adrian TO lad Procedures Procedure Name Priority Date/Time Associated Diagnosis Comments URINALYSIS, MICROSCOPIC ONLY STAT 10/06/2024 5:51 PM ERP BUSINESS ANALYST URINALYSIS AND REFLEX TO MICROSCOPIC STAT 10/06/2024 5:51 PM ERP BUSINESS ANALYST COMPREHENSIVE METABOLIC PANEL Routine 10/06/2024 3:59 PM ERP BUSINESS ANALYST EGFR Routine 10/06/2024 3:59 PM ERP BUSINESS ANALYST VITAMIN B12 Routine 10/06/2024 3:59 PM ERP BUSINESS ANALYST TSH Routine 10/06/2024 3:59 PM ERP BUSINESS ANALYST CBC WITHOUT DIFFERENTIAL Routine 10/06/2024 3:59 PM ERP BUSINESS ANALYST RESPIRATORY PATHOGEN PANEL STAT 10/06/2024 3:[address] HEAD WO CONTRAST ED 10/06/2024 3 :37 PM ERP BUSINESS ANALYST XR CHEST PA LATERAL 2 VIEWS ED 10/06/2024 3:30 PM ERP BUSINESS ANALYST ECG 12-LEAD STAT 10/06/2024 1:07 PM ERP BUSINESS ANALYST POCT GLUCOSE DEVICE Routine 10/06/2024 12:48 PM ERP BUSINESS ANALYST EGFR Routine 10/03/2024 4:00 PM ERP BUSINESS ANALYST DIFFERENTIAL AUTO Routine 10/03/2024 4:00 PM ERP BUSINESS ANALYST CBC WITH AUTO DIFFERENTIAL Routine 10/03/2024 4:00 PM ERP BUSINESS ANALYST BASIC METABOLIC PANEL Routine 10/03/2024 4:00 PM ERP BUSINESS ANALYST POCT ACTIVATED CLOTTING TIME, LOW RANGE Routine 10/03/2024 2:14 PM ERP BUSINESS ANALYST RIGHT AND LEFT HEART CATHETERIZATION Routine 10/03/2024 12:42 PM ERP BUSINESS ANALYST Chronic systolic heart failure (CMS/HCC) (HCC) Coronary artery disease involving [place] coronary artery of [place] heart with angina pectoris (HCC) Acute on chronic heart failure, unspecified heart failure type (HCC) Paroxysmal atrial fibrillation (CMS/HCC) (HCC) History of aortic valve replacement POCT ACTIVATED CLOTTING TIME, LOW RANGE Routine 10/03/2024 12:42 PM ERP BUSINESS ANALYST TYPE AND SCREEN Timed 10/03/2024 12:20 PM ERP BUSINESS ANALYST POCT ACTIVATED CLOTTING TIME, LOW RANGE Routine 10/03/2024 12:06 PM ERP BUSINESS ANALYST POCT OXYHEMOGLOBIN - DEVICE Routine 10/03/2024 11:47 AM ERP BUSINESS ANALYST POCT OXYHEMOGLOBIN - DEVICE Routine 10/03/2024 11:45 AM ERP BUSINESS ANALYST CBC WITHOUT DIFFERENTIAL Routine 10/03/2024 11:45 AM ERP BUSINESS ANALYST POCT OXYHEMOGLOBIN - DEVICE Routine 10/03/2024 11:44 AM ERP BUSINESS ANALYST POCT GLUCOSE DEVICE Routine 10/03/2024 8 :45 AM ERP BUSINESS ANALYST BASIC METABOLIC PANEL Routine 09/29/2024 9:42 AM ERP BUSINESS ANALYST High risk medications (not anticoagulants) long-term use EGFR Routine 09/24/2024 5:03 PM ERP BUSINESS ANALYST Chronic heart failure with preserved ejection fraction (CMS/HCC) (HCC) DIFFERENTIAL AUTO Routine 09/24/2024 5:0 3 PM ERP BUSINESS ANALYST Chronic heart failure with preserved ejection fraction (CMS/HCC) (HCC) BASIC METABOLIC PANEL Routine 09/24/2024 5:03 PM ERP BUSINESS ANALYST Chronic heart failure with preserved ejection fraction (CMS/HCC) (HCC) PRO B-TYPE NATRIURETIC PEPTIDE Routine 09/24/2024 5:03 PM ERP BUSINESS ANALYST Chronic heart failure with preserved ejection fraction (CMS/HCC) (HCC) CBC WITH AUTO DIFFERENTIAL Routine 09/24/2024 5:03 PM ERP BUSINESS ANALYST Chronic heart failure with preserved ejection fraction (CMS/HCC) (HCC) ECG 12-LEAD Routine 09/24/2024 4:01 PM ERP BUSINESS ANALYST History of aortic valve replacement EGFR STAT 09/14/2024 8:23 AM ERP BUSINESS ANALYST BASIC METABOLIC PANEL STAT 09/14/2024 8:23 AM ERP BUSINESS ANALYST EGFR Routine 09/13/2024 9:57 PM ERP BUSINESS ANALYST CBC WITHOUT DIFFERENTIAL Routine 09/13/2024 9:57 PM ERP BUSINESS ANALYST MAGNESIUM Routine 09/13/2024 9:57 PM ERP BUSINESS ANALYST BASIC METABOLIC PANEL Routine 09/13/2024 9:57 PM ERP BUSINESS ANALYST EGFR Routine 09/12/2024 8:13 PM ERP BUSINESS ANALYST CBC WITHOUT DIFFERENTIAL Routine 09/12/2024 8:13 PM ERP BUSINESS ANALYST MAGNESIUM Routine 09/12/2024 8:13 PM ERP BUSINESS ANALYST BASIC METABOLIC PANEL Routine 09/12/2024 8:13 PM ERP BUSINESS ANALYST SODIUM, URINE, RANDOM Routine 09/12/2024 12:36 PM ERP BUSINESS ANALYST POCT GLUCOSE DEVICE Routine 09/12/2024 7 :52 AM ERP BUSINESS ANALYST POCT GLUCOSE DEVICE Routine 09/12/2024 6 :21 AM ERP BUSINESS ANALYST POCT GLUCOSE DEVICE Routine 09/12/2024 2 :15 AM ERP BUSINESS ANALYST EGFR Routine 09/11/2024 11:44 PM ERP BUSINESS ANALYST CBC WITHOUT DIFFERENTIAL Routine 09/11/2024 11:44 PM ERP BUSINESS ANALYST MAGNESIUM Routine 09/11/2024 11:44 PM ERP BUSINESS ANALYST BASIC METABOLIC PANEL Routine 09/11/2024 11:44 PM ERP BUSINESS ANALYST POCT GLUCOSE DEVICE Routine 09/11/2024 8 :14 PM ERP BUSINESS ANALYST POCT GLUCOSE DEVICE Routine 09/11/2024 5 :23 PM ERP BUSINESS ANALYST TROPONIN I HIGH-SENSITIVITY 4-HOUR Timed 09/11/2024 3:10 PM ERP BUSINESS ANALYST POCUS CARDIAC 09/11/2024 1:58 PM ERP BUSINESS ANALYST PRO B-TYPE NATRIURETIC PEPTIDE STAT 09/11/2024 1:30 PM ERP BUSINESS ANALYST TROPONIN I HIGH-SENSITIVITY 2-HOUR Timed 09/11/2024 1:30 PM ERP BUSINESS ANALYST XR CHEST PA LATERAL 2 VIEWS ED 09/11/2024 11:13 AM ERP BUSINESS ANALYST EGFR STAT 09/11/2024 11:03 AM ERP BUSINESS ANALYST DIFFERENTIAL AUTO STAT 09/11/2024 11:03 AM ERP BUSINESS ANALYST TROPONIN I HIGH-SENSITIVITY SERIES (BASELINE, 2HR, 4HR, 6HR) STAT 09/11/2024 11:03 AM ERP BUSINESS ANALYST COMPREHENSIVE METABOLIC PANEL STAT 09/11/2024 11:03 AM ERP BUSINESS ANALYST CBC WITH AUTO DIFFERENTIAL STAT 09/11/2024 11:03 AM ERP BUSINESS ANALYST ECG 12-LEAD STAT 09/11/2024 10:52 AM ERP BUSINESS ANALYST POCT GLUCOSE DEVICE Routine 09/11/2024 10:48 AM ERP BUSINESS ANALYST EGFR Routine 09/10/2024 12:26 PM ERP BUSINESS ANALYST Chronic heart failure with preserved ejection fraction (CMS/HCC) (HCC) PRO B-TYPE NATRIURETIC PEPTIDE Routine 09/10/2024 12:26 PM ERP BUSINESS ANALYST Chronic heart failure with preserved ejection fraction (CMS/HCC) (HCC) BASIC METABOLIC PANEL Routine 09/10/2024 12:26 PM ERP BUSINESS ANALYST Chronic heart failure with preserved ejection fraction (CMS/HCC) (HCC) ECG 12-LEAD Routine 09/10/2024 11:33 AM ERP BUSINESS ANALYST Chronic heart failure with preserved ejection fraction (CMS/HCC) (HCC) XR SCOLIOSIS AP LAT Schedule Routine, Read Routine (OP Routine) 08/26/2024 11:42 AM ERP BUSINESS ANALYST Lumbar spondylosis Chronic bilateral low back pain, unspecified whether sciatica present BASIC METABOLIC PANEL Routine 07/30/2024 12:37 PM ERP BUSINESS ANALYST High risk medications (not anticoagulants) long-term use BASIC METABOLIC PANEL Routine 07/16/2024 11:34 AM ERP BUSINESS ANALYST High risk medications (not anticoagulants) long-term use HEMOGLOBIN A1C Routine 06/07/2024 8:38 AM CDT LIPID PANEL Routine 06/07/2024 8:38 AM CDT DIABETES FOOT EXAM Routine 11/05/2020 DIABETES EYE EXAM Routine 05/05/2019 from Last 3 Months or Most Recently Relevant to Health Maintenance Results * (ABNORMAL) Urinalysis reflex to microscopic (10/06/2024 5:51 PM ERP BUSINESS ANALYST) Color, ur Straw Yellow Clarity, ur Clear Clear [facility] Specific gravity, ur 1.010 1.003 - 1.030 [facility] pH, urine 6.0 [facility] Comment: Interpretive Data U rine pH is affected by diet, medications, systemic acid-base disturbances, and renal tubular function. pH may affect urinary stone formation. For example, urine pH below 6.0 may help reduce the tendency for calcium phosphate stones and pH greater than 6.0 may reduce the tendency for uric acid stone formation. Source: [facility] [email or web address] Current Interpretive Data was last revised on 2017 Protein, ur ql Negative Negative [facility] Glucose, ur ql Negative Negative [facility] Ketones, ur Negative Negative [facility] Bilirubin, ur Negative Negative [facility] Blood, ur Negative Negative [facility] Urobilinogen, ur <2.0 <2.0 mg/dL [facility] Nitrite, ur Negative Negative [facility] Leukocyte esterase, ur Trace(A) Negative [facility] UA reflex comment Reflex to microscopic UA will be performed. [facility] Urine 10/06/2024 5:51 PM ERP BUSINESS ANALYST 10/06/2024 5:58 PM ERP BUSINESS ANALYST Aneta Castellanos MD LAB URINE ORDERABLES Final R esult Performing Organization Address [facility] Co de Phone Number [facility] [place] [address] * (ABNORMAL) Urinalysis, microscopic only (10/06/2024 5:51 PM ERP BUSINESS ANALYST) WBC, ur 0-5 0 - 5 /HPF RBC, ur 0-2 0 - 2 /HPF [facility] Epithelial cells, squamous, ur 1-5 0 - 5 /HPF [facility] Epithelial cells, transitional, ur 1-5 0 - 0 /HPF [facility] Bacteria, ur Trace(A) [facility] Mucous, ur Present(A) [facility] Hyaline casts, ur 6-10 0 - 10 /LPF [facility] Urine 10/06/2024 5:51 PM ERP BUSINESS ANALYST 10/06/2024 5:58 PM ERP BUSINESS ANALYST Aneta Castellanos MD LAB URINE ORDERABLES Final R esult Performing Organization Address City/[facility] Co de Phone Number [facility] [place] [address] * eGFR (10/06/2024 3:59 PM ERP BUSINESS ANALYST) eGFR 64 >=60 mL/min/1. 73 m2 Comment: [...] last reviewed 2021. Blood 10/06/2024 3:59 PM ERP BUSINESS ANALYST 10/06/2024 4:26 PM ERP BUSINESS ANALYST Aneta Castellanos MD LAB BLOOD ORDERABLES Final R esult [facility] [place] [address] * Respiratory pathogen panel Nasopharyngeal (10/06/2024 3:59 PM ERP BUSINESS ANALYST) Pathologist [facility] Influenza A RNA Not Detected Not Detected Influenza B RNA Not Detected Not Detected [facility] RSV RNA Not Detected Not Detected [facility] COVID-19 RNA Not Detected Not Detected [facility] Coronavirus 229E RNA Not Detected Not Detected [facility] Coronavirus HKU1 RNA Not Detected Not Detected [facility] Coronavirus NL63 RNA Not Detected Not Detected [facility] Coronavirus OC43 RNA Not Detected Not Detected [facility] Adenovirus DNA Not Detected Not Detected [facility] Metapneumovirus RNA Not Detected Not Detected [facility] Rhinovirus/Enterov irus RNA Not Detected Not Detected [facility] Parainfluenza 1 RNA Not Detected Not Detected [facility] Parainfluenza 2 RNA Not Detected Not Detected [facility] Parainfluenza 3 RNA Not Detected Not Detected [facility] Parainfluenza 4 RNA Not Detected Not Detected [facility] B. pertussis DNA Not Detected Not Detected [facility] B. parapertussis DNA Not Detected Not Detected [facility] C. pneumoniae DNA Not Detected Not Detected [facility] M. pneumoniae DNA Not Detected Not Detected [facility] Nasopharyngeal 10/06/2024 3: 59 PM ERP BUSINESS ANALYST 10/06/2024 4:19 PM ERP BUSINESS ANALYST Narrative [facility] - 10/06/2024 6:14 PM ERP BUSINESS ANALYST Is the Patient experiencing symptoms consistent with COVID?->No Surveillance testing for transplant patient?->No Interpretive Data [employer] FilmArray Respiratory Panel (RP2.1) assay is a [...] assay has FDA clearance for testing of CHIEF SUBSTATION OPERATOR swabs. The performance of additional specimen types has been assessed by the performing laboratory. The performance characteristics of this assay have been determined by [facility] Infectious Disease [facility]. Current interpretive data was last revised on 22. us Oralia Cummings MD LAB MICROBIOLOGY - GENERAL OR DERABLES Final Result Performing Organization Address [facility] Co de Phone Number [facility] Department [place] [address] * (ABNORMAL) CBC without differential (10/06/2024 3:59 PM ERP BUSINESS ANALYST) Pathologist [facility] WBC 6.8 3.8 - 9.9 K/cumm Hgb 11.5(L) 13.0 - 17.5 g/dL [facility] Hct 34.1(L) 38.9 - 50.3 % [facility] Plt 162 150 - 400 K/cumm [facility] MPV 11.4 9.1 - 12.3 fL [facility] RBC 3.72(L) 4.30 - 5.80 M/cumm [facility] MCV 91.7 81.3 - 96.4 fL [facility] MCH 30.9 27.1 - 33.3 pg [facility] MCHC 33.7 32.3 - 35.7 g/dL [facility] RDW CV 14.7 11.1 - 14.9 % [facility] RDW SD 49.6(H) 35.7 - 48.1 fL [facility] NRBC abs 0.00 0.00 - 0.01 K/cumm [facility] Blood 10/06/2024 3:59 PM ERP BUSINESS ANALYST 10/06/2024 4:26 PM ERP BUSINESS ANALYST Priscilla Sarmiento MD LAB BLOOD ORDERABLES Final R esult [facility] [place] [address] * TSH (10/06/2024 3:59 PM ERP BUSINESS ANALYST) Pathologist [facility] Thyroid Stimulating Hormone 3.88 0.30 - 4.20 mcIUnit/mL Blood 10/06/2024 3:59 PM ERP BUSINESS ANALYST 10/06/2024 4:09 PM ERP BUSINESS ANALYST Oralia Cummings MD LAB BLOOD ORDERABLES Final Re sult Performing Organization Address City/[facility]/ZIP Co de Phone Number [facility] [place] [address] * Vitamin B12 (10/06/2024 3:59 PM ERP BUSINESS ANALYST) [facility] Vitamin B12 420 230 - 1,250 pg/mL Blood 10/06/2024 3:59 PM ERP BUSINESS ANALYST 10/06/2024 4:09 PM ERP BUSINESS ANALYST Oralia Cummings MD LAB BLOOD ORDERABLES Final Re sult Performing Organization Address [facility] de Phone Number [facility] [place] [address] * (ABNORMAL) Comprehensive metabolic panel (10/06/2024 3:59 PM ERP BUSINESS ANALYST) [facility] Sodium 143 135 - 145 mmol/L Potassium, pl 4.3 3.3 - 4.9 mmol/L [facility] Chloride 104 97 - 110 mmol/L [facility] CO2 26 22 - 32 mmol/L [facility] Anion gap 13 2 - 15 mmol/L [facility] BUN 26(H) 6 - 25 mg/dL [facility] Creatinine 1.12 0.80 - 1.30 mg/dL [facility] Glucose 94 70 - 199 mg/dL [facility] Comment: Interpretive Data Fasting glucose >/= [...] 2022. Calcium 9.1 8.5 - 10.3 mg/dL [facility] Bilirubin, total 0.4 0.1 - 1.2 mg/dL [facility] Protein, pl 7.1 6.5 - 8.5 g/dL [facility] Albumin 3.9 3.5 - 5.0 g/dL [facility] Alk phos 45 40 - 130 Units/L [facility] ALT 15 7 - 55 Units/L [facility] AST 37 10 - 50 Units/L [facility] Blood 10/06/2024 3:59 PM ERP BUSINESS ANALYST 10/06/2024 4:09 PM ERP BUSINESS ANALYST us Aneta Castellanos MD LAB BLOOD ORDERABLES Final R esult [facility] [place] [address] * CT Head WO Contrast (10/06/2024 3:37 PM ERP BUSINESS ANALYST) Anatomical Region Laterality Modality Head and Neck N/A Computed Tomogra phy 10/06/2024 4:29 PM ERP BUSINESS ANALYST Impressions 10/06/2024 4:41 PM ERP BUSINESS ANALYST No acute intracranial hemorrhage, large vessel territory infarction, mass effect, or midline shift. Dictated by: Nikolas Vega M.D. The radiology attending physician has personally reviewed this study, and had reviewed and/or edited this written report and agrees with it. Electronically signed by: Johnny Ballesteros M.D, PHD Narrative 10/06/2024 4:41 PM ERP BUSINESS ANALYST EXAMINATION: CT head without contrast HISTORY: Altered [...] Electronically signed by: Johnny Ballesteros M.D, PHD us Priscilla Sarmiento MD IMG CT PROCEDURES Final Resu lt * XR Chest PA Lateral 2 Views (10/06/2024 3:30 PM ERP BUSINESS ANALYST) Anatomical Region Laterality Modality Body, Chest N/A Computed Radiogr aphy 10/06/2024 3:42 PM ERP BUSINESS ANALYST Impressions 10/06/2024 3:49 PM ERP BUSINESS ANALYST Comparison with chest radiograph dated 07/12/2025. Median [...] Luna Perez M.D. Narrative 10/06/2024 3:49 PM ERP BUSINESS ANALYST EXAMINATION: 2 view chest radiograph Procedure Note [...] lt * ECG 12-LEAD (10/06/2024 1:07 PM ERP BUSINESS ANALYST) Narrative [facility] - 10/06/2024 1:07 PM ERP BUSINESS ANALYST Nupur Orozco MD 10/06/2024 1:08 PM ECG 12 lead Date/Time: 10/06/2024 1:07 PM Performed by: Nupur Orozco MD Authorized by: Jaylen Petersen MD Comments: EKG Interpretation Interpreted by ED physician in absence of a equipment cleaner and tester Ventricular rate: 65 bpm Rhythm: sinus with PACs [place]: Normal Intervals: 1st degree av block, wide QRS Other findings: no acute ischemia Interpretation: abnormal EKG, LBBB, ectopy Compared to priors: no priors for comparison Aneta Castellanos MD ECG ORDERABLES Final Result [facility] * POCT glucose (10/06/2024 12:48 PM ERP BUSINESS ANALYST) Glucose, POC 112 70 - 199 mg/dL Blood 10/06/2024 12:4 8 PM ERP BUSINESS ANALYST 10/06/2024 12:48 PM ERP BUSINESS ANALYST Notinfile Unknown LAB POCT ORDERABLES - DEVICE F inal Result Performing Organization Address City/[facility] Co de Phone Number [facility] Department [place] [address] * eGFR (10/03/2024 4:00 PM ERP BUSINESS ANALYST) eGFR 73 >=60 mL/min/1. 73 m2 Comment: [...] last reviewed 2021. Blood 10/03/2024 4:00 PM ERP BUSINESS ANALYST 10/03/2024 4:23 PM ERP BUSINESS ANALYST us Crescencio Vázquez MD LAB BLOOD ORDERABLES Final Resul t Performing Organization Address City/[facility]/ZIP Co de Phone Number [facility] [place] [address] * Differential, auto (10/03/2024 4:00 PM ERP BUSINESS ANALYST) Neutrophil abs 3.7 1.5 - 6.5 K/cumm Imm gran abs 0.0 0.0 - 0.1 K/cumm [facility] Lymphocyte abs 1.5 0.8 - 3.3 K/cumm [facility] Monocyte abs 0.4 0.2 - 0.8 K/cumm [facility] Eosinophil abs 0.2 0.0 - 0.5 K/cumm [facility] Basophil abs 0.0 0.0 - 0.1 K/cumm [facility] Neutrophil pct 63.5 % [facility] Comment: Interpretive Data Percent cell count reference ranges are not reported, since discordance with absolute values may lead to misinterpretation of CBC data. Current Interpretive Data was last revised on 2017. Imm gran pct 0.3 % [facility] Comment: Interpretive Data Percent cell count reference ranges are not reported, since discordance with absolute values may lead to misinterpretation of CBC data. Current Interpretive Data was last revised on 2017. Lymphocyte pct 26.0 % [facility] Comment: Interpretive Data Percent cell count reference ranges are not reported, since discordance with absolute values may lead to misinterpretation of CBC data. Current Interpretive Data was last revised on 2017. Monocyte pct 7.1 % [facility] Comment: Interpretive Data Percent cell count reference ranges are not reported, since discordance with absolute values may lead to misinterpretation of CBC data. Current Interpretive Data was last revised on 2017. Eosinophil pct 2.6 % [facility] Comment: Interpretive Data Percent cell count reference ranges are not reported, since discordance with absolute values may lead to misinterpretation of CBC data. Current Interpretive Data was last revised on 2017. Basophil pct 0.5 % [facility] Comment: Interpretive Data Percent cell count reference ranges are not reported, since discordance with absolute values may lead to misinterpretation of CBC data. Current Interpretive Data was last revised on 2017. Blood 10/03/2024 4:00 PM ERP BUSINESS ANALYST 10/03/2024 4:18 PM ERP BUSINESS ANALYST us Crescencio Vázquez MD LAB BLOOD ORDERABLES Final Resul t [facility] Department [place] [address] * (ABNORMAL) CBC with auto differential (10/03/2024 4:00 PM ERP BUSINESS ANALYST) WBC 5.8 3.8 - 9.9 K/cumm Hgb 10.8(L) 13.0 - 17.5 g/dL [facility] Hct 32.5(L) 38.9 - 50.3 % [facility] Plt 143(L) 150 - 400 K/cumm [facility] MPV 11.6 9.1 - 12.3 fL [facility] RBC 3.54(L) 4.30 - 5.80 M/cumm [facility] MCV 91.8 81.3 - 96.4 fL [facility] MCH 30.5 27.1 - 33.3 pg [facility] MCHC 33.2 32.3 - 35.7 g/dL [facility] RDW CV 14.4 11.1 - 14.9 % [facility] RDW SD 48.6(H) 35.7 - 48.1 fL [facility] NRBC abs 0.00 0.00 - 0.01 K/cumm [facility] Blood 10/03/2024 4:00 PM ERP BUSINESS ANALYST 10/03/2024 4:18 PM ERP BUSINESS ANALYST us Crescencio Vázquez MD LAB BLOOD ORDERABLES Final Resul t [facility] [place] [address] * Basic metabolic panel (10/03/2024 4:00 PM ERP BUSINESS ANALYST) Sodium 142 135 - 145 mmol/L Potassium, pl 3.8 3.3 - 4.9 mmol/L [facility] Chloride 104 97 - 110 mmol/L [facility] CO2 28 22 - 32 mmol/L [facility] Anion gap 10 2 - 15 mmol/L [facility] BUN 17 6 - 25 mg/dL [facility] Creatinine 1.01 0.80 - 1.30 mg/dL [facility] Glucose 179 70 - 199 mg/dL [facility] Comment: Interpretive Data Fasting glucose >/= [...] 2022. Calcium 8.5 8.5 - 10.3 mg/dL [facility] Blood 10/03/2024 4:00 PM ERP BUSINESS ANALYST 10/03/2024 4:18 PM ERP BUSINESS ANALYST us Crescencio Vázquez MD LAB BLOOD ORDERABLES Final Resul t Performing Organization Address City/[facility]/ZIP Co de Phone Number [facility] [place] [email or web address] [place] [address] * (ABNORMAL) POCT Activated clotting time, low range (10/03/2024 2:14 PM ERP BUSINESS ANALYST) ACT 181(H) 123 - 168 sec POC Performer [id number] [facility] POC Device Number [id number] [facility] Blood 10/03/2024 2:14 PM ERP BUSINESS ANALYST 10/03/2024 2:14 PM ERP BUSINESS ANALYST us Nigel Holman MD LAB POCT ORDERABLES - DEVICE Final Result Performing Organization Address City/[facility] Co de Phone Number [facility] [email or web address] [address] * RIGHT AND LEFT HEART CATHETERIZATION (10/03/2024 12:42 PM ERP BUSINESS ANALYST) Anatomical Region Laterality Modality X-Ray Angiograph y Impressions 10/03/2024 2:26 PM ERP BUSINESS ANALYST Severe stenosis of the mid LAD with [...] Nigel Holman MD Narrative 10/03/2024 2:26 PM ERP BUSINESS ANALYST Table formatting from the original result was not included. Procedure: CORONARY ANGIOGRAM / RIGHT HEART CATHETERIZATION/ percutaneous coronary intervention Patient: Ashkan Pryor is a 84 y.o. male : 1940 MR number: [id number] Date of Service: 10/03/2024 Active Directory Systems Administrator: Nigel Holman MD Fellow: Crescencio Vázquez MD [...] obtained. The patient was brought to the solar lab technician and placed on the table Bilateral groins [...] performed Right heart catheterization preformed with 7 Erit[place]an arrow Minetto At the end of the procedure, arteriotomy [...] vasodilators and reimage that showed some slight confucianist of flow. Upon review it looks as [...] clotting time, low range (10/03/2024 12:42 PM ERP BUSINESS ANALYST) ACT 252(H) 123 - 168 sec POC Performer [id number] [facility] POC Device Number [id number] [facility] Blood 10/03/2024 12:4 2 PM ERP BUSINESS ANALYST 10/03/2024 12:42 PM ERP BUSINESS ANALYST Nigel Holman MD LAB POCT ORDERABLES - DEVICE Final Result Performing Organization Address [facility] Co de Phone Number [facility] [place] [address] * Type and screen (10/03/2024 12:20 PM ERP BUSINESS ANALYST) Lit, indirect Negative ABO Rh A Positive [facility] Blood 10/03/2024 12:2 0 PM ERP BUSINESS ANALYST 10/03/2024 12:39 PM ERP BUSINESS ANALYST Narrative [facility] - 10/03/2024 1:32 PM ERP BUSINESS ANALYST Has the patient had Daratumumab or Isatuximab in the past 6 months?->Unknown Nigel Holman MD LAB BLOOD BANK TEST ORDERABL ES Final Result Performing Organization Address City/[facility] Co de Phone Number [facility] Department [email or web address] [address] * (ABNORMAL) POCT Activated clotting time, low range (10/03/2024 12:06 PM ERP BUSINESS ANALYST) ACT 240(H) 123 - 168 sec POC Performer [id number] [facility] POC Device Number [id number] [facility] Blood 10/03/2024 12:0 6 PM ERP BUSINESS ANALYST 10/03/2024 12:06 PM ERP BUSINESS ANALYST Nigel Holman MD LAB POCT ORDERABLES - DEVICE Final Result Performing Organization Address [facility] Co de Phone Number [facility] [place] [address] * (ABNORMAL) POCT oxyhemoglobin (10/03/2024 11:47 AM ERP BUSINESS ANALYST) [facility] Oxyhemoglobin 95.3 >=65.0 % [facility] Hemoglobin 11.7(L) 13.0 - 17.5 g/dL [facility] O2 content 15.5 15.0 - 22.0 Vol % [facility] Anatomic Site aPOC Aorta descend [facility] Blood 10/03/2024 11:4 7 AM ERP BUSINESS ANALYST 10/03/2024 11:47 AM ERP BUSINESS ANALYST us Nigel Holman MD LAB POCT ORDERABLES - DEVICE Final Result Performing Organization Address [facility] Co de Phone Number [facility] [place] [address] * (ABNORMAL) POCT oxyhemoglobin (10/03/2024 11:45 AM ERP BUSINESS ANALYST) [facility] Oxyhemoglobin 67.9 >=65.0 % [facility] Hemoglobin 11.0(L) 13.0 - 17.5 g/dL [facility] O2 content 10.4(L) 15.0 - 22.0 Vol % [facility] Anatomic Site aPOC Pulm Art main [facility] Blood 10/03/2024 11:4 5 AM ERP BUSINESS ANALYST 10/03/2024 11:45 AM ERP BUSINESS ANALYST Nigel Holman MD LAB POCT ORDERABLES - DEVICE Final Result Performing Organization Address [facility] Co de Phone Number [facility] [place] [address] * (ABNORMAL) CBC without differential (10/03/2024 11:45 AM ERP BUSINESS ANALYST) Pathologist [facility] WBC 6.8 3.8 - 9.9 K/cumm Hgb 11.3(L) 13.0 - 17.5 g/dL [facility] Hct 34.2(L) 38.9 - 50.3 % [facility] Plt 142(L) 150 - 400 K/cumm [facility] MPV 11.3 9.1 - 12.3 fL [facility] RBC 3.65(L) 4.30 - 5.80 M/cumm [facility] MCV 93.7 81.3 - 96.4 fL [facility] MCH 31.0 27.1 - 33.3 pg [facility] MCHC 33.0 32.3 - 35.7 g/dL [facility] RDW CV 14.1 11.1 - 14.9 % [facility] RDW SD 49.1(H) 35.7 - 48.1 fL [facility] NRBC abs 0.00 0.00 - 0.01 K/cumm [facility] Blood 10/03/2024 11:4 5 AM ERP BUSINESS ANALYST 10/03/2024 11:51 AM ERP BUSINESS ANALYST Narrative [facility] - 10/03/2024 12:12 PM ERP BUSINESS ANALYST To be drawn after hydration bolus complete us Nigel Holman MD LAB BLOOD ORDERABLES Final R esult [facility] [place] [address] * (ABNORMAL) POCT oxyhemoglobin (10/03/2024 11:44 AM ERP BUSINESS ANALYST) [facility] Oxyhemoglobin 69.1 >=65.0 % [facility] Hemoglobin 11.3(L) 13.0 - 17.5 g/dL [facility]ANNER O2 content 10.9(L) 15.0 - 22.0 Vol % [facility] Anatomic Site aPOC Pulm Art main [facility] Blood 10/03/2024 11:4 4 AM ERP BUSINESS ANALYST 10/03/2024 11:44 AM ERP BUSINESS ANALYST Nigel Holman MD LAB POCT ORDERABLES - DEVICE Final Result Performing Organization Address City/[facility] Co de Phone Number [facility] [place] [address] * POCT glucose (10/03/2024 8:45 AM ERP BUSINESS ANALYST) Glucose, POC 117 70 - 199 mg/dL Blood 10/03/2024 8:45 AM ERP BUSINESS ANALYST 10/03/2024 8:45 AM ERP BUSINESS ANALYST Nigel Holman MD LAB POCT ORDERABLES - DEVICE Final Result Performing Organization Address [facility] [facility] de Phone Number [facility] [place] [address] * Basic metabolic panel (09/29/2024 9:42 AM ERP BUSINESS ANALYST) Glucose 99 65 - 99 mg/dL [facility] Comment: Fasting reference interval BUN 23 7 - 25 mg/dL [facility] Creatinine 0.96 0.70 - 1.22 mg/dL [facility] eGFR 77 > OR = 60 mL/min/1.7 3m2 [facility] BUN/creat ratio SEE NOTE: 6 22 (calc) [facility] Comment: Not Reported: BUN and Creatinine are within reference range. Sodium 142 135 - 146 mmol/L [facility] Potassium, pl 4.0 3.5 - 5.3 mmol/L [facility] Chloride 103 98 - 110 mmol/L [facility] CO2 32 20 - 32 mmol/L [facility] Calcium 8.9 8.6 - 10.3 mg/dL [facility] Blood 09/29/2024 9:42 AM ERP BUSINESS ANALYST 09/29/2024 9:42 AM ERP BUSINESS ANALYST Rehan Sheth MD LAB BLOOD ORDERABLES F inal Result Performing Organization Address City/[facility] Co de Phone Number [facility] [address] [place] [address] * (ABNORMAL) eGFR (09/24/2024 5:03 PM ERP BUSINESS ANALYST) eGFR 55(L) >=60 mL/min/1. 73 m2 Comment: [...] last reviewed 2021. Blood 09/24/2024 5:03 PM ERP BUSINESS ANALYST 09/24/2024 5:24 PM ERP BUSINESS ANALYST us Rehan Sheth MD LAB BLOOD ORDERABLES F inal Result [facility] [place] [address] * Differential, auto (09/24/2024 5:03 PM ERP BUSINESS ANALYST) Neutrophil abs 3.6 1.5 - 6.5 K/cumm Imm gran abs 0.0 0.0 - 0.1 K/cumm [facility] Lymphocyte abs 1.9 0.8 - 3.3 K/cumm [facility] Monocyte abs 0.6 0.2 - 0.8 K/cumm [facility] Eosinophil abs 0.2 0.0 - 0.5 K/cumm [facility] Basophil abs 0.0 0.0 - 0.1 K/cumm [facility] Neutrophil pct 56.5 % [facility] Comment: Interpretive Data Percent cell count reference ranges are not reported, since discordance with absolute values may lead to misinterpretation of CBC data. Current Interpretive Data was last revised on 2017. Imm gran pct 0.6 % [facility] Comment: Interpretive Data Percent cell count reference ranges are not reported, since discordance with absolute values may lead to misinterpretation of CBC data. Current Interpretive Data was last revised on 2017. Lymphocyte pct 30.0 % [facility] Comment: Interpretive Data Percent cell count reference ranges are not reported, since discordance with absolute values may lead to misinterpretation of CBC data. Current Interpretive Data was last revised on 2017. Monocyte pct 9.1 % [facility] Comment: Interpretive Data Percent cell count reference ranges are not reported, since discordance with absolute values may lead to misinterpretation of CBC data. Current Interpretive Data was last revised on 2017. Eosinophil pct 3.3 % [facility] Comment: Interpretive Data Percent cell count reference ranges are not reported, since discordance with absolute values may lead to misinterpretation of CBC data. Current Interpretive Data was last revised on 2017. Basophil pct 0.5 % [facility] Comment: Interpretive Data Percent cell count reference ranges are not reported, since discordance with absolute values may lead to misinterpretation of CBC data. Current Interpretive Data was last revised on 2017. Blood 09/24/2024 5:03 PM ERP BUSINESS ANALYST 09/24/2024 5:24 PM ERP BUSINESS ANALYST us Rehan Sheth MD LAB BLOOD ORDERABLES F inal Result [facility] Department [place] [address] * (ABNORMAL) Pro B-type natriuretic peptide (09/24/2024 5:03 PM ERP BUSINESS ANALYST) NT-proBNP 2,036(H) <=450 pg/mL Comment: Interpretive Comments: [...] Eur Heart J. 2006:27:330-337. 2. Cortez RW, Holt AM. J. AM Renato Cardiol: Cardiovasc Imag. 2009;2: 216- 225. Interpretive Data Last Revised Date: 2018. Blood 09/24/2024 5:03 PM ERP BUSINESS ANALYST 09/24/2024 5:24 PM ERP BUSINESS ANALYST us Rehan Sheth MD LAB BLOOD ORDERABLES F inal Result [facility] Department [place] [address] * (ABNORMAL) CBC with auto differential (09/24/2024 5:03 PM ERP BUSINESS ANALYST) [facility] WBC 6.3 3.8 - 9.9 K/cumm Hgb 11.7(L) 13.0 - 17.5 g/dL [facility] Hct 35.3(L) 38.9 - 50.3 % [facility] Plt 184 150 - 400 K/cumm [facility] MPV 11.3 9.1 - 12.3 fL [facility] RBC 3.76(L) 4.30 - 5.80 M/cumm [facility] MCV 93.9 81.3 - 96.4 fL [facility] MCH 31.1 27.1 - 33.3 pg [facility] MCHC 33.1 32.3 - 35.7 g/dL [facility] RDW CV 14.6 11.1 - 14.9 % [facility] RDW SD 50.4(H) 35.7 - 48.1 fL [facility] NRBC abs 0.00 0.00 - 0.01 K/cumm [facility] Blood 09/24/2024 5:03 PM ERP BUSINESS ANALYST 09/24/2024 5:24 PM ERP BUSINESS ANALYST us Rehan Sheth MD LAB BLOOD ORDERABLES F inal Result [facility] [place] [address] * (ABNORMAL) Basic metabolic panel (09/24/2024 5:03 PM ERP BUSINESS ANALYST) Sodium 145 135 - 145 mmol/L Potassium, pl 3.7 3.3 - 4.9 mmol/L [facility] Chloride 107 97 - 110 mmol/L [facility] CO2 30 22 - 32 mmol/L [facility] Anion gap 8 2 - 15 mmol/L [facility] BUN 31(H) 6 - 25 mg/dL [facility] Creatinine 1.27 0.80 - 1.30 mg/dL [facility] Glucose 89 70 - 199 mg/dL [facility] Comment: Interpretive Data Fasting glucose >/= [...] 2022. Calcium 9.0 8.5 - 10.3 mg/dL [facility] Blood 09/24/2024 5:03 PM ERP BUSINESS ANALYST 09/24/2024 5:24 PM ERP BUSINESS ANALYST Rehan Sheth MD LAB BLOOD ORDERABLES F inal Result [facility] Department [place] [address] * ECG 12 lead (09/24/2024 4:01 PM ERP BUSINESS ANALYST) Rehan Sheth MD ECG ORDERABLES Edited Result - Final * eGFR (09/14/2024 8:23 AM ERP BUSINESS ANALYST) eGFR 63 >=60 mL/min/1. 73 m2 Comment: [...] last reviewed 2021. Blood 09/14/2024 8:23 AM ERP BUSINESS ANALYST 09/14/2024 8:45 AM ERP BUSINESS ANALYST Dalila Torres MD LAB BLOOD ORDERABLES Fi nal Result [facility] Department [place] [address] * (ABNORMAL) Basic metabolic panel (09/14/2024 8:23 AM ERP BUSINESS ANALYST) Pathologist [facility] Sodium 140 135 - 145 mmol/L Potassium, pl 4.0 3.3 - 4.9 mmol/L [facility] Chloride 104 97 - 110 mmol/L [facility] CO2 27 22 - 32 mmol/L [facility] Anion gap 9 2 - 15 mmol/L [facility] BUN 28(H) 6 - 25 mg/dL [facility] Creatinine 1.14 0.80 - 1.30 mg/dL [facility] Glucose 108 70 - 199 mg/dL [facility] Comment: Interpretive Data Fasting glucose >/= [...] 2022. Calcium 8.8 8.5 - 10.3 mg/dL [facility] Blood 09/14/2024 8:23 AM ERP BUSINESS ANALYST 09/14/2024 8:45 AM ERP BUSINESS ANALYST us Dalila Torres MD LAB BLOOD ORDERABLES Fi nal Result Performing Organization Address [facility]/ZIP Co de Phone Number [facility] Department [place] [address] * (ABNORMAL) eGFR (09/13/2024 9:57 PM ERP BUSINESS ANALYST) Pathologist [place] [facility] eGFR 49(L) >=60 mL/min/1. 73 m2 Comment: [...] last reviewed 2021. Blood 09/13/2024 9:57 PM ERP BUSINESS ANALYST 09/13/2024 10:27 PM ERP BUSINESS ANALYST us Dalila Torres MD LAB BLOOD ORDERABLES Fi nal Result [facility] Department [place] [address] * (ABNORMAL) CBC without differential (09/13/2024 9:57 PM ERP BUSINESS ANALYST) WBC 6.4 3.8 - 9.9 K/cumm Hgb 11.1(L) 13.0 - 17.5 g/dL [facility] Hct 33.4(L) 38.9 - 50.3 % [facility] Plt 152 150 - 400 K/cumm [facility] MPV 11.2 9.1 - 12.3 fL [facility] RBC 3.53(L) 4.30 - 5.80 M/cumm [facility] MCV 94.6 81.3 - 96.4 fL [facility] MCH 31.4 27.1 - 33.3 pg [facility] MCHC 33.2 32.3 - 35.7 g/dL [facility] RDW CV 14.9 11.1 - 14.9 % [facility] RDW SD 52.3(H) 35.7 - 48.1 fL [facility] NRBC abs 0.00 0.00 - 0.01 K/cumm [facility] Blood 09/13/2024 9:57 PM ERP BUSINESS ANALYST 09/13/2024 10:27 PM ERP BUSINESS ANALYST Dalila Torres MD LAB BLOOD ORDERABLES Fi nal Result Performing Organization Address City/[facility] Co de Phone Number [facility] Department [place] [address] * Magnesium (09/13/2024 9:57 PM ERP BUSINESS ANALYST) [facility] Magnesium 2.1 1.4 - 2.5 mg/dL Blood 09/13/2024 9:57 PM ERP BUSINESS ANALYST 09/13/2024 10:27 PM ERP BUSINESS ANALYST Dalila Torres MD LAB BLOOD ORDERABLES Fi nal Result Performing Organization Address [facility] de Phone Number [facility] [place] [address] * (ABNORMAL) Basic metabolic panel (09/13/2024 9:57 PM ERP BUSINESS ANALYST) [facility] Sodium 139 135 - 145 mmol/L Potassium, pl 3.7 3.3 - 4.9 mmol/L [facility] Chloride 102 97 - 110 mmol/L [facility] CO2 28 22 - 32 mmol/L [facility] Anion gap 9 2 - 15 mmol/L [facility] BUN 35(H) 6 - 25 mg/dL [facility] Creatinine 1.41(H) 0.80 - 1.30 mg/dL [facility] Glucose 126 70 - 199 mg/dL [facility] Comment: Interpretive Data Fasting glucose >/= [...] 2022. Calcium 8.7 8.5 - 10.3 mg/dL [facility] Blood 09/13/2024 9:57 PM ERP BUSINESS ANALYST 09/13/2024 10:27 PM ERP BUSINESS ANALYST Dalila Torres MD LAB BLOOD ORDERABLES Fi nal Result [facility] [place] [email or web address] [address] * (ABNORMAL) eGFR (09/12/2024 8:13 PM ERP BUSINESS ANALYST) eGFR 51(L) >=60 mL/min/1. 73 m2 Comment: [...] last reviewed 2021. Blood 09/12/2024 8:13 PM ERP BUSINESS ANALYST 09/12/2024 8:55 PM ERP BUSINESS ANALYST us Dalila Torres MD LAB BLOOD ORDERABLES Fi nal Result [facility] [email or web address] [place] [address] * (ABNORMAL) CBC without differential (09/12/2024 8:13 PM ERP BUSINESS ANALYST) [facility] WBC 7.4 3.8 - 9.9 K/cumm Hgb 11.0(L) 13.0 - 17.5 g/dL [facility] Hct 33.7(L) 38.9 - 50.3 % [facility] Plt 181 150 - 400 K/cumm [facility] MPV 11.1 9.1 - 12.3 fL [facility] RBC 3.60(L) 4.30 - 5.80 M/cumm [facility] MCV 93.6 81.3 - 96.4 fL [facility] MCH 30.6 27.1 - 33.3 pg [facility] MCHC 32.6 32.3 - 35.7 g/dL [facility] RDW CV 14.8 11.1 - 14.9 % [facility] RDW SD 51.2(H) 35.7 - 48.1 fL [facility] NRBC abs 0.00 0.00 - 0.01 K/cumm [facility] Blood 09/12/2024 8:13 PM ERP BUSINESS ANALYST 09/12/2024 8:54 PM ERP BUSINESS ANALYST us Dalila Torres MD LAB BLOOD ORDERABLES Fi nal Result Performing Organization Address City/[facility] Co de Phone Number [facility] [place] [address] * Magnesium (09/12/2024 8:13 PM ERP BUSINESS ANALYST) [facility] Magnesium 2.0 1.4 - 2.5 mg/dL Blood 09/12/2024 8:13 PM ERP BUSINESS ANALYST 09/12/2024 8:55 PM ERP BUSINESS ANALYST Dalila Torres MD LAB BLOOD ORDERABLES Fi nal Result [facility] [place] [address] * (ABNORMAL) Basic metabolic panel (09/12/2024 8:13 PM ERP BUSINESS ANALYST) Sodium 141 135 - 145 mmol/L Potassium, pl 3.8 3.3 - 4.9 mmol/L [facility] Chloride 106 97 - 110 mmol/L [facility] CO2 26 22 - 32 mmol/L [facility] Anion gap 9 2 - 15 mmol/L [facility] BUN 31(H) 6 - 25 mg/dL [facility] Creatinine 1.37(H) 0.80 - 1.30 mg/dL [facility] Glucose 102 70 - 199 mg/dL [facility] Comment: Interpretive Data Fasting glucose >/= [...] 2022. Calcium 8.4(L) 8.5 - 10.3 mg/dL [facility] Blood 09/12/2024 8:13 PM ERP BUSINESS ANALYST 09/12/2024 8:55 PM ERP BUSINESS ANALYST us Dalila Torres MD LAB BLOOD ORDERABLES nal Result [facility] [place] [address] * Sodium, urine, random (09/12/2024 12:36 PM ERP BUSINESS ANALYST) Sodium, ur 72 mmol/L Comment: Interpretive Data No reference range established. Current interpretive data was last revised 2018. Urine 09/12/2024 12:3 6 PM ERP BUSINESS ANALYST 09/12/2024 4:22 PM ERP BUSINESS ANALYST us Dalila Torres MD LAB URINE ORDERABLES Fi nal Result Performing Organization Address City/[facility]/ZIP Co de Phone Number [facility] [place] [email or web address] [address] * POCT glucose (09/12/2024 7:52 AM ERP BUSINESS ANALYST) Glucose, POC 103 70 - 199 mg/dL Blood 09/12/2024 7:52 AM ERP BUSINESS ANALYST 09/12/2024 7:52 AM ERP BUSINESS ANALYST us Dalila Torres MD LAB POCT ORDERABLES - D EVICE Final Result Performing Organization Address [facility] Co de Phone Number [facility] [email or web address] [address] * POCT glucose (09/12/2024 6:21 AM ERP BUSINESS ANALYST) Glucose, POC 92 70 - 199 mg/dL Blood 09/12/2024 6:2 1 AM ERP BUSINESS ANALYST 09/12/2024 6:21 AM ERP BUSINESS ANALYST us Dalila Torres MD LAB POCT ORDERABLES - D EVICE Final Result Performing Organization Address [facility] Co de Phone Number [facility] [place] [address] * POCT glucose (09/12/2024 2:15 AM ERP BUSINESS ANALYST) Glucose, POC 178 70 - 199 mg/dL Blood 09/12/2024 2:15 AM ERP BUSINESS ANALYST 09/12/2024 2:15 AM ERP BUSINESS ANALYST us Dalila Torres MD LAB POCT ORDERABLES - D EVICE Final Result Performing Organization Address City/[facility] Co de Phone Number [facility] [place] [address] * (ABNORMAL) eGFR (09/11/2024 11:44 PM ERP BUSINESS ANALYST) [facility] eGFR 54(L) >=60 mL/min/1. 73 m2 Comment: [...] reviewed 2021. Blood 09/11/2024 11:4 4 PM ERP BUSINESS ANALYST 09/12/2024 12:17 AM ERP BUSINESS ANALYST us Dalila Torres MD LAB BLOOD ORDERABLES nal Result [facility] Department [place] [address] * (ABNORMAL) CBC without differential (09/11/2024 11:44 PM ERP BUSINESS ANALYST) [facility] WBC 7.1 3.8 - 9.9 K/cumm Hgb 11.5(L) 13.0 - 17.5 g/dL [facility] Hct 34.7(L) 38.9 - 50.3 % [facility] Plt 172 150 - 400 K/cumm [facility] MPV 10.9 9.1 - 12.3 fL [facility] RBC 3.70(L) 4.30 - 5.80 M/cumm [facility] MCV 93.8 81.3 - 96.4 fL [facility] MCH 31.1 27.1 - 33.3 pg [facility] MCHC 33.1 32.3 - 35.7 g/dL [facility] RDW CV 14.9 11.1 - 14.9 % [facility] RDW SD 51.1(H) 35.7 - 48.1 fL [facility] NRBC abs 0.00 0.00 - 0.01 K/cumm [facility] Blood 09/11/2024 11:4 4 PM ERP BUSINESS ANALYST 09/12/2024 12:17 AM ERP BUSINESS ANALYST Dalila Torres MD LAB BLOOD ORDERABLES Fi nal Result Performing Organization Address City/[facility]/ZIP Co de Phone Number [facility] [place] [address] * Magnesium (09/11/2024 11:44 PM ERP BUSINESS ANALYST) [facility] Magnesium 2.1 1.4 - 2.5 mg/dL Blood 09/11/2024 11:4 4 PM ERP BUSINESS ANALYST 09/12/2024 12:17 AM ERP BUSINESS ANALYST Dalila Torres MD LAB BLOOD ORDERABLES Fi nal Result Performing Organization Address [facility] de Phone Number [facility] [place] [address] * (ABNORMAL) Basic metabolic panel (09/11/2024 11:44 PM ERP BUSINESS ANALYST) [facility] Sodium 142 135 - 145 mmol/L Potassium, pl 3.5 3.3 - 4.9 mmol/L [facility] Chloride 104 97 - 110 mmol/L [facility] CO2 27 22 - 32 mmol/L [facility] Anion gap 11 2 - 15 mmol/L [facility] BUN 30(H) 6 - 25 mg/dL [facility] Creatinine 1.30 0.80 - 1.30 mg/dL [facility] Glucose 74 70 - 199 mg/dL [facility] Comment: Interpretive Data Fasting glucose >/= [...] 2022. Calcium 8.8 8.5 - 10.3 mg/dL [facility] Blood 09/11/2024 11:4 4 PM ERP BUSINESS ANALYST 09/12/2024 12:17 AM ERP BUSINESS ANALYST us Dalila Torres MD LAB BLOOD ORDERABLES Fi nal Result Performing Organization Address [facility] Co de Phone Number [facility] [place] [address] * POCT glucose (09/11/2024 8:14 PM ERP BUSINESS ANALYST) Glucose, POC 142 70 - 199 mg/dL Blood 09/11/2024 8:14 PM ERP BUSINESS ANALYST 09/11/2024 8:14 PM ERP BUSINESS ANALYST us Dalila Torres MD LAB POCT ORDERABLES - D EVICE Final Result Performing Organization Address [facility] Co de Phone Number [facility] [place] [address] * POCT glucose (09/11/2024 5:23 PM ERP BUSINESS ANALYST) Glucose, POC 91 70 - 199 mg/dL Blood 09/11/2024 5:23 PM ERP BUSINESS ANALYST 09/11/2024 5:23 PM ERP BUSINESS ANALYST us Ave Tai MD LAB POCT ORDERABLES - DEVICE Final Result Performing Organization Address [facility] Co de Phone Number [facility] [place] [address] * Troponin I high-sensitivity 4-hour (09/11/2024 3:10 PM ERP BUSINESS ANALYST) Trop I hs 13 <=35 ng/L Comment: Interpretive Data For further hscTnI resources including the diagnostic algorithm and an aid in interpretation, copy and paste this link: https://bjhlab.testcatalog.org/show/hsTrop-1 Current Interpretive Data last revised 2020. Trop I hs delta -1 ng/L [facility] Trop I hs interp Insignificant [facility] Blood 09/11/2024 3:10 PM ERP BUSINESS ANALYST 09/11/2024 3:22 PM ERP BUSINESS ANALYST us Ricki Ramirez MD LAB BLOOD ORDERABLES Final Result [facility] [place] [address] * POCUS Cardiac (09/11/2024 1:58 PM ERP BUSINESS ANALYST) Anatomical Region Laterality Modality Other 09/11/2024 1:28 PM ERP BUSINESS ANALYST Narrative 09/11/2024 3:02 PM ERP BUSINESS ANALYST Performed by: Jose Martin Guevara Cardiac: Exam [...] Troponin I high-sensitivity 2-hour (09/11/2024 1:30 PM ERP BUSINESS ANALYST) Trop I hs 14 <=35 ng/L Comment: Interpretive Data For further hscTnI resources including the diagnostic algorithm and an aid in interpretation, copy and paste this link: https://bjhlab.testcatalog.org/show/hsTrop-1 Current Interpretive Data last revised 2020. Trop I hs delta 0 ng/L [facility] Trop I hs interp Insignificant [facility] H Blood 09/11/2024 1:30 PM ERP BUSINESS ANALYST 09/11/2024 2:03 PM ERP BUSINESS ANALYST us Ricki Ramirez MD LAB BLOOD ORDERABLES Final Result [facility] Department of Laboratories [place], [place] [id number] * (ABNORMAL) Pro B-type natriuretic peptide (09/11/2024 1:30 PM ERP BUSINESS ANALYST) NT-proBNP 1,193(H) <=450 pg/mL Comment: Interpretive Comments: [...] Revised Date: 2018. Blood 09/11/2024 1:30 PM ERP BUSINESS ANALYST 09/11/2024 2:04 PM ERP BUSINESS ANALYST us Ave De Leon MD LAB BLOOD ORDERABLES Final Result Performing Organization Address City/State/[facility] Co wv Phone Number [facility] [place] [address] * XR Chest Pa Lateral 2 Views (09/11/2024 11:13 AM ERP BUSINESS ANALYST) Anatomical Region Laterality Modality Body, Chest N/A Computed Radiogr aphy 09/11/2024 11:4 4 AM ERP BUSINESS ANALYST Impressions 09/11/2024 11:44 AM ERP BUSINESS ANALYST Comparison to 12/21/2023. 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 Heart and mediastinum are unchanged. There is no pneumothorax or pleural effusion. Small lung volumes with scarring in the left midlung that is similar to the prior CT. No new focal pulmonary opacity. Electronically signed by: Eric Balbuena M.D. Narrative 09/11/2024 11:44 AM ERP BUSINESS ANALYST EXAMINATION: 2 view chest radiograph Procedure Note [...] opacity. Electronically signed by: Eric Balbuena M.D. Joseph Lucas MD IMG XR PROCEDURES Final R esult * Troponin I high-sensitivity series (baseline, 2hr, 4hr, 6hr) (09/11/2024 11:03 AM ERP BUSINESS ANALYST) Trop I hs 14 <=35 ng/L Comment: Interpretive Data For further hscTnI resources including the diagnostic algorithm and an aid in interpretation, copy and paste this link: https://bjhlab.testcatalog.org/show/hsTrop-1 Current Interpretive Data last revised 2020. Blood 09/11/2024 11:0 3 AM ERP BUSINESS ANALYST 09/11/2024 11:20 AM ERP BUSINESS ANALYST Joseph Lucas MD LAB BLOOD ORDERABLES Shanna l Result [facility] Department of Laboratories [place], [place] [id number] * (ABNORMAL) eGFR (09/11/2024 11:03 AM ERP BUSINESS ANALYST) eGFR 49(L) >=60 mL/min/1. 73 m2 Comment: [...] reviewed 2021. Blood 09/11/2024 11:0 3 AM ERP BUSINESS ANALYST 09/11/2024 11:20 AM ERP BUSINESS ANALYST us Joseph Lucas MD LAB BLOOD ORDERABLES Shanna orozco Result [facility] Department [place] [address] * Differential, auto (09/11/2024 11:03 AM ERP BUSINESS ANALYST) Neutrophil abs 4.9 1.5 - 6.5 K/cumm Imm gran abs 0.0 0.0 - 0.1 K/cumm [facility] Lymphocyte abs 1.4 0.8 - 3.3 K/cumm [facility] Monocyte abs 0.7 0.2 - 0.8 K/cumm [facility] Eosinophil abs 0.1 0.0 - 0.5 K/cumm [facility] Basophil abs 0.0 0.0 - 0.1 K/cumm [facility] Neutrophil pct 67.9 % [facility] Comment: Interpretive Data Percent cell count reference ranges are not reported, since discordance with absolute values may lead to misinterpretation of CBC data. Current Interpretive Data was last revised on 2017. Imm gran pct 0.4 % [facility] Comment: Interpretive Data Percent cell count reference ranges are not reported, since discordance with absolute values may lead to misinterpretation of CBC data. Current Interpretive Data was last revised on 2017. Lymphocyte pct 19.8 % [facility] Comment: Interpretive Data Percent cell count reference ranges are not reported, since discordance with absolute values may lead to misinterpretation of CBC data. Current Interpretive Data was last revised on 2017. Monocyte pct 9.6 % [facility] Comment: Interpretive Data Percent cell count reference ranges are not reported, since discordance with absolute values may lead to misinterpretation of CBC data. Current Interpretive Data was last revised on 2017. Eosinophil pct 1.9 % [facility] Comment: Interpretive Data Percent cell count reference ranges are not reported, since discordance with absolute values may lead to misinterpretation of CBC data. Current Interpretive Data was last revised on 2017. Basophil pct 0.4 % [facility] Comment: Interpretive Data Percent cell count reference ranges are not reported, since discordance with absolute values may lead to misinterpretation of CBC data. Current Interpretive Data was last revised on 2017. Blood 09/11/2024 11:0 3 AM ERP BUSINESS ANALYST 09/11/2024 11:20 AM ERP BUSINESS ANALYST Joseph Lucas MD LAB BLOOD ORDERABLES Shanna orozco Result [facility] [place] [address] * (ABNORMAL) CBC with auto differential (09/11/2024 11:03 AM ERP BUSINESS ANALYST) WBC 7.3 3.8 - 9.9 K/cumm Hgb 11.0(L) 13.0 - 17.5 g/dL [facility] Hct 33.2(L) 38.9 - 50.3 % [facility] Plt 175 150 - 400 K/cumm [facility] MPV 10.6 9.1 - 12.3 fL [facility] RBC 3.51(L) 4.30 - 5.80 M/cumm [facility] MCV 94.6 81.3 - 96.4 fL [facility] MCH 31.3 27.1 - 33.3 pg [facility] MCHC 33.1 32.3 - 35.7 g/dL [facility] RDW CV 14.9 11.1 - 14.9 % [facility] RDW SD 51.4(H) 35.7 - 48.1 fL [facility] NRBC abs 0.00 0.00 - 0.01 K/cumm [facility] Blood (Blood, Venous) 09/11/2024 11:03 AM ERP BUSINESS ANALYST 09/11/2024 11:20 AM ERP BUSINESS ANALYST us Joseph Lucas MD LAB BLOOD ORDERABLES Shanna orozco Result [facility] [place] [address] * (ABNORMAL) Comprehensive metabolic panel (09/11/2024 11:03 AM ERP BUSINESS ANALYST) Sodium 142 135 - 145 mmol/L Potassium, pl 3.6 3.3 - 4.9 mmol/L [facility] Chloride 102 97 - 110 mmol/L [facility] CO2 28 22 - 32 mmol/L [facility] Anion gap 12 2 - 15 mmol/L [facility] BUN 33(H) 6 - 25 mg/dL [facility] Creatinine 1.40(H) 0.80 - 1.30 mg/dL [facility] Glucose 114 70 - 199 mg/dL [facility] Comment: Interpretive Data Fasting glucose >/= [...] 2022. Calcium 8.9 8.5 - 10.3 mg/dL [facility] Bilirubin, total 0.4 0.1 - 1.2 mg/dL [facility] Protein, pl 6.9 6.5 - 8.5 g/dL [facility] Albumin 3.9 3.5 - 5.0 g/dL [facility] Alk phos 43 40 - 130 Units/L [facility] ALT 13 7 - 55 Units/L [facility] AST 24 10 - 50 Units/L [facility] Blood 09/11/2024 11:0 3 AM ERP BUSINESS ANALYST 09/11/2024 11:20 AM ERP BUSINESS ANALYST us Joseph Lucas MD LAB BLOOD ORDERABLES Shanna l Result [facility] [place] [address] * ECG 12-LEAD (09/11/2024 10:52 AM ERP BUSINESS ANALYST) Narrative MUSE BJ - 09/11/2024 10:52 AM ERP BUSINESS ANALYST Hermilo Linares MD 09/11/2024 10:55 AM ECG [...] lead Date/Time: 09/11/2024 10:52 AM Performed by: Hremilo Linares MD Authorized by: Ricki Ramirez MD [...] Lucas MD ECG ORDERABLES Final Res ult [facility] * POCT glucose (09/11/2024 10:48 AM ERP BUSINESS ANALYST) Glucose, POC 112 70 - 199 mg/dL Blood 09/11/2024 10:4 8 AM ERP BUSINESS ANALYST 09/11/2024 10:48 AM ERP BUSINESS ANALYST Notinfile Unknown LAB POCT ORDERABLES - DEVICE F inal Result Performing Organization Address City/[facility]/ZIP Co de Phone Number [facility] Department [place] [address] * (ABNORMAL) eGFR (09/10/2024 12:26 PM ERP BUSINESS ANALYST) eGFR 54(L) >=60 mL/min/1. 73 m2 Comment: [...] reviewed 2021. Blood 09/10/2024 12:2 6 PM ERP BUSINESS ANALYST 09/10/2024 1:37 PM ERP BUSINESS ANALYST Rehan Sheth MD LAB BLOOD ORDERABLES F inal Result Performing Organization Address City/State/[facility] Co de Phone Number [facility] [place] [address] * (ABNORMAL) Pro B-type natriuretic peptide (09/10/2024 12:26 PM ERP BUSINESS ANALYST) NT-proBNP 2,273(H) <=450 pg/mL Comment: Interpretive Comments: [...] Date: 2018. Blood 09/10/2024 12:2 6 PM ERP BUSINESS ANALYST 09/10/2024 1:32 PM ERP BUSINESS ANALYST Rehan Sheth MD LAB BLOOD ORDERABLES F inal Result Performing Organization Address City/[facility]/ZIP Co de Phone Number [facility] Department [place] [address] * (ABNORMAL) Basic metabolic panel (09/10/2024 12:26 PM ERP BUSINESS ANALYST) [facility] Sodium 142 135 - 145 mmol/L Potassium, pl 3.9 3.3 - 4.9 mmol/L [facility] Chloride 104 97 - 110 mmol/L [facility] CO2 28 22 - 32 mmol/L [facility] Anion gap 10 2 - 15 mmol/L [facility] BUN 31(H) 6 - 25 mg/dL [facility] Creatinine 1.29 0.80 - 1.30 mg/dL [facility] Glucose 126 70 - 199 mg/dL [facility] Comment: Interpretive Data Fasting glucose >/= [...] 2022. Calcium 9.2 8.5 - 10.3 mg/dL [facility] Blood 09/10/2024 12:2 6 PM ERP BUSINESS ANALYST 09/10/2024 1:32 PM ERP BUSINESS ANALYST Rehan Sheth MD LAB BLOOD ORDERABLES F inal Result Performing Organization Address [facility] Co de Phone Number [facility] [place] [email or web address] [place] [address] * ECG 12 lead (09/10/2024 11:33 AM ERP BUSINESS ANALYST) Rehan Sheth MD ECG ORDERABLES Edited Result - Final * XR Scoliosis Ap and Lateral (08/26/2024 11:42 AM ERP BUSINESS ANALYST) Anatomical Region Laterality Modality Spine N/A Computed Radiogr aphy 08/26/2024 12:3 0 PM ERP BUSINESS ANALYST Impressions 08/26/2024 12:30 PM ERP BUSINESS ANALYST 1. Mild thoracolumbar curvature with leftward coronal and anterior sagittal imbalance Electronically signed by: Mehran Sotomayor MD [facility] 08/26/2024 12:30 PM ERP BUSINESS ANALYST EXAMINATION: XR SCOLIOSIS AP AND LATERAL HISTORY: [...] (ABNORMAL) Basic metabolic panel (07/30/2024 12:37 PM ERP BUSINESS ANALYST) [facility] Glucose 143(H) 65 - 99 mg/dL [facility] Comment: Fasting reference interval For someone without known diabetes, a glucose value >125 mg/dL indicates that they may have diabetes and this should be confirmed with a follow-up test. BUN 22 7 - 25 mg/dL [facility] Creatinine 1.04 0.70 - 1.22 mg/dL [facility] eGFR 71 > OR = 60 mL/min/1.7 3m2 [facility] BUN/creat ratio SEE NOTE: 6 - 22 (calc) [facility] Comment: Not Reported: BUN and Creatinine are within reference range. Sodium 141 135 - 146 mmol/L [facility] Potassium, pl 4.2 3.5 - 5.3 mmol/L [facility] Chloride 103 98 - 110 mmol/L [facility] CO2 30 20 - 32 mmol/L [facility] [employer] Calcium 8.9 8.6 - 10.3 mg/dL [facility] Blood 07/30/2024 12:3 7 PM ERP BUSINESS ANALYST 07/30/2024 12:38 PM ERP BUSINESS ANALYST Rehan Sheth MD LAB BLOOD ORDERABLES F inal Result [facility]IE [facility] [address] [place] [address] * (ABNORMAL) Basic metabolic panel (07/16/2024 11:34 AM ERP BUSINESS ANALYST) [facility] Glucose 115 65 - 139 mg/dL [facility] Comment: Non-fasting reference interval BUN 29(H) 7 - 25 mg/dL [facility] Creatinine 1.23(H) 0.70 - 1.22 mg/dL [facility] eGFR 58(L) > OR = 60 mL/min/1.7 3m2 [facility] BUN/creat ratio 24(H) 6 - 22 (calc) [facility] Sodium 138 135 - 146 mmol/L [facility] Potassium, pl 4.4 3.5 - 5.3 mmol/L [facility] [employer] Chloride 101 98 - 110 mmol/L [facility] CO2 27 20 - 32 mmol/L [facility] Calcium 8.7 8.6 - 10.3 mg/dL [facility] Blood 07/16/2024 11:3 4 AM ERP BUSINESS ANALYST 07/16/2024 11:34 AM ERP BUSINESS ANALYST Narrative [facility] - 07/16/2024 10:30 PM ERP BUSINESS ANALYST INSURANCE VERIFIED FASTING:NO FASTING: NO Rehan Sheth MD LAB BLOOD ORDERABLES F inal Result [facility] [address] [place] [address] * (ABNORMAL) Hemoglobin A1c (06/07/2024 8:38 AM CDT) Hgb A1C 6.1(H) 4.0 - 5.6 % Estimated Average Glucose 128 mg/dL [facility] Comment: The ADA recommends reporting an estimated Average Glucose (eAG) with all Hemoglobin A1c results using the equation derived from a study of 507 normal and diabetic adults. Minority populations were underrepresented and children were not included. (Diabetes Care 31:3244-9787, 2008). The eAG is not equivalent to a fasting glucose. Blood 06/07/2024 8:38 AM CDT 06/07/2024 9:07 AM CDT Joe Hood MD LAB BLOOD ORDER MAITE Final Result [facility] [address] [facility] Department [place] [address] * Lipid panel (06/07/2024 8:38 AM CDT) [...] mg/dL High: >160 mg/dL Calculated using the Augustin LDL-C estimating equation. This equation was implemented on 2024. Prior to this date LDL-C was estimated using the Friedewald equation. Literature References: 1. Expert Panel on Integrated Guidelines for Cardiovascular Health and Risk Reduction in Children and Adolescents. Pediatrics 2011;128:S213 2. NCEP Expert Panel. Circulation 2004;110:227 3. Charli M et al. SADE Cardiol. 2020 December 18;5(5):540-548. [...] LAB BLOOD ORDER MAITE Final Result [facility] [address] [facility] Department [place] [address] * DIABETES FOOT EXAM (11/05/2020) [...] 09/15/2024 Insurance [employer] CHOICE MEDICARE PPO MEDICARE Blue Pillar MEDICARE [employer] Pillar Advance Directives For more information, please contact: [phone] Documents on File Type Date Recorded Patient Home Paraprofessional Expl anation ADVANCE DIRECTIVE 12/27/2023 10:41 PM Jorge Pryor P OWER OF HOT PACKER-MEDICAL ADVANCE DIRECTIVE 12/26/2023 10:38 AM Yazmin Medina POWER OF HOT PACKER-FINANCIAL * Full Code (Latest Code Status on [...] Medina Daughter First Alternate Health Care Agent [email or web address] Care Teams 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
--- OUTSIDE RECORDS SUMMARY | 2024-10-08 15:07 | XMS_ITS | Clinical Summary ---
Author Organization [facility] Address [address] [place] [address] Care Team Providers Care Sewing Room Supervisor Name Role Phone Robin Nelson MD Primary Care Provider [phone] Allergies No known active allergies Medications warfarin [...] Active METFORMIN 1000 MG tabletIndications :Diabetes mellitus ([facility]) TAKE 1 TABLET BY MOUTH TWICE A DAY 60 tablet 2 1 Active PIOGLITAZONE 15 MG tabletIndications :Type 2 diabetes mellitus with stage 3a chronic kidney disease, without long-term current use of insulin ([facility]) TAKE 1 TABLET BY MOUTH [...] Date COPD (chronic obstructive pu lmonary disease) ([facility]) 02/02/2020 Diabetes mellitus ([facility]) Hypertension Immunizations Name Administration Dates Next Due Flublok (Quadrivalent) 06/02/2020 Fluzone High Dose - >Age 65 (Prefilled Syringe) 07/02/2018 PFIZER COVID-19 (ORIGINAL FO RMULATION, PURPLE CAP) mRNA, LNP-S, PF, 30 MCG/0.3 ML DOSE 10/23/2020,09/25/2020 Tdap (Generic) 03/08/2019,03/19/2016 Zoster (Zostavax) 71601 Unt/0.65Ml 03/19/2016 Social History Tobacco Use Types [...] Comments Blood Pressure 155/71 09/19/2021 12:53 PM CERTIFIED FAMILY MEDIATOR Pulse 68 09/19/2021 12:53 PM CERTIFIED FAMILY MEDIATOR Temperature 35.8 C (96.5 F) 09/19/2021 11:03 AM CERTIFIED FAMILY MEDIATOR Respiratory Rate 20 09/19/2021 11:03 AM CERTIFIED FAMILY MEDIATOR Oxygen Saturation 95% 09/19/2021 12:53 PM CERTIFIED FAMILY MEDIATOR Inhaled Oxygen Concentration - - Weight 113.4 kg (250 lb) 09/15/2021 2:17 PM CERTIFIED FAMILY MEDIATOR Height 182.9 cm (6') 09/15/2021 2:17 PM CERTIFIED FAMILY MEDIATOR Body Mass Index 33.91 09/15/2021 2:17 PM CERTIFIED FAMILY MEDIATOR Plan of Treatment Health Maintenance Due Date [...] this topic Medical Devices Implanted Type Area Risk Management Internship Device Identifier Shelf Expiration Date Model / Serial / Lot Intraocular Lens Implanted:Qty: 1 on 09/19/2021 by Daren Ralph MD at [facility] Left: Eye 04/14/2023 [id number] / [id number] / Procedures Procedure Name Priority Date/Time Associated Diagnosis Comments HEMOGLOBIN, GLYCOSYLATED Routine 07/05/2020 Type 2 diabetes mellitus with stage 3a chronic kidney disease, without long-term current use of insulin ([facility]) LIPID PANEL Routine 02/02/2020 11:47 AM CDT Dyslipidemia from Last 3 Months or Most Recently Relevant to Health Maintenance Results * HEMOGLOBIN, GLYCOSYLATED (07/05/2020) HGB A1C 8.2 % MG-CONNIEXLER JANETE ([address] [facility] [place] 07/05/2020 Collette Stockton MD LABORATORY Final Result FRANCISCO AARON ([id number] [facility] [place] [address] [place] [address], * (ABNORMAL) LIPID PANEL (02/02/2020 11:47 AM CDT) Pathologist [facility] CHOLESTEROL 123 <200 mg/dL [facility] HDL 37(L) > OR = 40 mg/dL [facility] TRIGLYCERIDES 237(H) <150 mg/dL [facility] Comment: If a non-fasting specimen was collected, consider repeat triglyceride testing on a fasting specimen if clinically indicated. Amrit et al. J. of Clin. Lipidol. 2015;9:129-169. LDL (CALCULATED) 56 mg/dL (calc) [facility] Comment: Reference range: <100 Desirable range <100 mg/dL for primary prevention; <70 mg/dL for patients with CHD or diabetic patients with > or = 2 CHD risk factors. LDL-C is now calculated using the Herber-Chapa calculation, which is a validated novel method providing better accuracy than the Friedewald equation in the estimation of LDL-C. Herber SS et al. SADE. 2013;310(19): 3028-5131 (http://education.AHS PharmStat.allGreenup/faq/BDR295) CHOL/HDL RATIO 3.3 <5.0 (calc) [facility] NON HDL CHOLESTEROL 86 <130 mg/dL (calc) [facility] Comment: For patients with diabetes plus 1 major ASCVD risk factor, treating to a non-HDL-C goal of <100 mg/dL (LDL-C of <70 mg/dL) is considered a therapeutic option. 02/02/2020 11:4 7 AM CDT 02/03/2020 3:01 AM CDT Narrative Resulting Agency Comment Performing Organization Information: Site ID: [place] Name: [email or web address] Address: [address] [address] Director: Siva Roman D.O., MPH us Collette Stockton MD LABORATORY Final Result [facility] [address] [address], [place] from Last 3 Months or Most Recently Relevant to Health Maintenance Insurance [facility] Care Teams Sewing Room Supervisor Relationship Specialty Start Date End Date Robin Nelson MD [address] [place] [address] PCP - General INTERNAL MEDICINE 08/10/21
[2024-10-08 16:16] LABS: Hematocrit 37.6 % (42.0-52.0); Hemoglobin 12.2 g/dL (14.0-18.0); Mean Corpuscular HGB Conc 32.4 g/dl (32-36); Mean Corpuscular Hemoglobin 30.9 pg (26-34); Mean Corpuscular Volume 95.2 fl (80-100); Mean Platelet Volume 11.2 fl (7.4-10.4); Platelet Count Result 186 k/mm3 (150-375); Red Blood Count 3.95 M/mm3 (4.6-6.20); Red Cell Distribution Width 14.5 % (11.5-14.5); White Blood Count 6.8 K/mm3 (4.5-10.0)
[2024-10-08 16:18] LABS: Add Urine Microscopic? NO; Appearance Urine Clear (Clear); Bilirubin Urine Negative (Negative); Blood Urine Negative (Negative); Color Urine Yellow (Yellow); Glucose Urine UA Negative (Negative); Ketones Urine Negative (Negative); Leukocyte Esterase Ur Negative LEU/UL (Negative); Nitrate Urine Negative (Negative); Protein Urine Negative (Negative); Specific Grav Ur 1.008 (1.001-1.035); Urobilinogen Urine 0.2 mg/dL (<2.0); pH Urine 5.5 (5.0-9.0)
[2024-10-08 16:27] LABS: Alanine Aminotransferase 18 U/L (6-50); Albumin Level 4.2 g/dL (3.5-5.1); Alkaline Phosphatase 51 U/L (38-126); Anion Gap 10 mmol/L (4-12); Aspartate Amino Transferase 27 U/L (17-59); Bilirubin,Total 0.5 mg/dL (0.2-1.3); Blood Urea Nitrogen 34 mg/dL (9-20); Calcium 9.1 mg/dL (8.4-10.2); Carbon Dioxide 28 mmol/L (22-30); Chloride 101 mmol/L (98-107); Estimated Glomerular Filt Rate 52; Glucose 79 mg/dL (65-110); Potassium 3.8 mmol/L (3.4-5.0); Sodium 139 mmol/L (137-145)
[2024-10-08 16:36] LABS: NT Pro B Type Natriuretic Pept 1230 pg/mL (19.9-100)
[2024-10-08 19:08] LABS: Hemoglobin A1C 5.9 % (<5.7)
== END 2024-10-08 15:01 | disposition home or self-care (01) ==
PROVIDERS: PCP Family Medicine; Visit Provider Family Medicine
DX: E11.9 Type 2 diabetes mellitus without complications (principal); G45.9 Transient cerebral ischemic attack, unspecified; I10 Essential (primary) hypertension; I50.33 Acute on chronic diastolic (congestive) heart failure; R53.1 Weakness; R53.83 Other fatigue; T50.B95A Adverse effect of other viral vaccines, initial encounter; S09.90XA Unspecified injury of head, initial encounter; I35.9 Nonrheumatic aortic valve disorder, unspecified; I21.4 Non-ST elevation (NSTEMI) myocardial infarction; I48.91 Unspecified atrial fibrillation; X58.XXXA Exposure to other specified factors, initial encounter
CPT/HCPCS: 36415; 70450; 71046; 80053; 81003; 83036; 83880; 84443; 85027; 87086

== ENCOUNTER 2024-10-14 16:28 | Observation (INO) | payer MEDICARE, SELFPAY ==
--- NOTE | ~2024-10-14 | CT_ITS ---
CT head without contrast Indication: Confusion COMPARISON: 10/08/2024 Technique: Serial scans were obtained through the brain without the administration of contrast. Dose reduction technique was used on this scan by utilizing automated exposure control and iterative recon struction technique. The dose-length product (DLP) was 605.33 mGy-cm. Findings: Stable hypodense area in the left brachium pontis, somewhat nonspecific. No other parenchym al abnormality seen. No intracranial hemorrhage.. The ventricles and subarachnoid spaces are dilated , consistent with moderate atrophy. Low attenuation regions are seen within the periventricular whit e matter bilaterally, likely representing changes from chronic microvascular ischemic disease. There is no evidence of edema, mass effect or midline shift. The visualized paranasal sinuses and mastoid air cells are clear. Impression: Stable hypodense area in the left brachium pontis. This could reflect chronic versus subacute infarct . Atrophy and chronic white matter changes, as above. Reviewed, dictated and finalized at location . ING SUPPORT WORKER Impression: Stable hypodense area in the left brachium pontis. This could reflect chronic v ersus subacute infarct. Atrophy and chronic white matter changes, as above.
--- NOTE | ~2024-10-14 | CT_ITS ---
CT Scan of the Chest without Contrast: Clinical Indication: Shortness of breath Technique: Contiguous sections were acquired throughout the chest without intravenous contrast. Dose reduction technique was used on this scan by utilizing automated exposure control and iterative recon struction technique. The dose-length product (DLP) was 484.96 mGy-cm. Findings: There is no evidence of any significant mediastinal, hilar or axillary lymphadenopathy. There are ext ensive atherosclerotic calcifications of the aorta and coronary arteries. There is no evidence of pleural or pericardial effusion. There is mild chronic interstitial pulmonary disease, peripheral interstitial thickening and subpleur al reticulation, probably worst at the lingula. No suspicious pulmonary nodule seen. Images through the upper abdomen reveal no abnormalities. Impression: Chronic interstitial pulmonary disease, as detailed above. Reviewed, dictated and finalized at location . LINE CSR Impression: Chronic interstitial pulmonary disease, as detailed above.
--- NOTE | ~2024-10-14 | XR_ITS ---
Portable chest x-ray Comparison: 10/08/2024 Clinical History: Altered mental status Findings: There is central congestive change and probable mild pulmonary edema. Cardiomediastinal s ilhouette is stable, status post aortic valve replacement. Bones and soft tissues are unremarkable. Impression: Central congestive change and probable mild pulmonary edema. Stable cardiomegaly, status post aortic valve replacement. Reviewed, dictated and finalized at location . EE BREAK ATTENDANT Impression: Central congestive change and probable mild pulmonary edema. Stable cardiomegaly, status post aortic valve replacement.
[2024-10-14 16:41] VITALS: BP 125/55; PULSE 73; RESP 18; TEMP 36.8; O2SAT 99
[2024-10-14 18:40] VITALS: BP 146/74; PULSE 72; RESP 20; TEMP 36.5; O2SAT 99
--- OUTSIDE RECORDS SUMMARY | 2024-10-14 18:42 | XMS_ITS | Referral Summary ---
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 Name Role Phone Barry Ralph MD Primary Care Provider [phone] Rehan Sheth MD Unavailable [phone] Encounters Date Type Department Care Team Description 10/14/2024 SHOP/CHAP Subsequent Outreach [facility] OP CASE MANAGEMENT [address] [place] [address] Sangita Moore, RN 10/10/2024 SHOP/CHAP Subsequent Outreach [facility] OP CASE MANAGEMENT 1 [place] [phone] Sangita Moore, RN 10/08/2024 Documentation [facility] 1 [place] [phone] Yvonne Tanner RN 10/08/2024 SHOP/CHAP Subsequent Outreach [facility] OP CASE MANAGEMENT 1 [place] [address] Sangita Moore, RN 10/07/2024 Telephone [facility] Cardiology [address] [place] [address] Advanced Medicine 8th [place] [address] [place] [address] Rehan Sheth MD shortness of breath/anxiety 10/07/2024 SHOP/CHAP Subsequent Outreach [facility] OP CASE MANAGEMENT 1 [place] [phone] Sangita Moore, RN 10/06/2024 SHOP/CHAP Subsequent Outreach [facility] OP CASE MANAGEMENT 1 [place] [phone] Sangita Moore, RN 10/06/2024 Results Follow-Up [facility] Cardiology [address] [place] [address] 8th Floor [address] [place] [phone] Amanda Chatman RN 10/06/2024 2:18 PM MEDICAL RESEARCH TECH - 10/06/2024 7:30 PM MEDICAL RESEARCH TECH Emergency [facility] Emergency Department 1 [place] [phone] Aneta Castellanos MD Altered mental status, unspecified altered mental status type (Primary Dx) Discharge Disposition: Discharge to home or self care 10/06/2024 Telephone [facility] Cardiology [address] [place] [address] Advanced [facility] 8th [place] [address] [place] [phone] Rehan Sheth MD [facility] 10/03/2024 10:45 AM MEDICAL RESEARCH TECH - 10/03/2024 12:00 PM MEDICAL RESEARCH TECH Surgery [facility] Heart [facility] Vascular [address] [phone] Nigel Holman MD Right Left Heart Catheterization with Coronary Angiography with or without Left Ventriculography [id number] 10/03/2024 7:50 AM MEDICAL RESEARCH TECH - 10/03/2024 5:48 PM MEDICAL RESEARCH TECH Hospital Encounter [facility] [place] 1 [place] [address] Nigel Holman MD Chest pain, unspecified type (Primary Dx); Chronic systolic heart failure (CMS/HCC) (HCC); 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); Acute on chronic heart failure, unspecified heart failure type (HCC); Paroxysmal atrial fibrillation (CMS/HCC) (HCC); History of aortic valve replacement Discharge Disposition: Discharge to home or self care 09/30/2024 SHOP/CHAP Subsequent Outreach [facility] OP CASE MANAGEMENT 1 [place] [address] Sangita Moore, RN 09/26/2024 SHOP/CHAP Subsequent Outreach [facility] OP CASE MANAGEMENT 1 [place] [address] Sangita Moore RN 09/25/2024 Orders Only [facility] Cardiology [address] [place] [address] Advanced Medicine 8th [place] [address] [place] [address] Naila Cortez RN High risk medications (not anticoagulants) long-term use (Primary Dx) 09/25/2024 Telephone [facility] Cardiology [address] [place] [address] [place] [address] [place] [address] Rehan Sheth MD 09/24/2024 7:40 PM MEDICAL RESEARCH TECH Lab [facility] ([facility]) [address] [place] [phone] Chronic heart failure with preserved ejection fraction (CMS/HCC) (HCC) 09/24/2024 Telephone [facility] Cardiology [address] [place] [address] [place] [address] [place] [address] Rehan Sheth MD cardiac cath 09/24/2024 3:15 PM MEDICAL RESEARCH TECH Office Visit [facility]iology [address] [place] [address] 8th [place] [address] [place] [address] Rehan Sheth MD Chronic heart failure with preserved ejection fraction (CMS/HCC) (HCC) (Primary Dx); History of aortic valve replacement; Benign essential hypertension; Paroxysmal atrial fibrillation (CMS/HCC) (HCC) 09/23/2024 SHOP/CHAP Subsequent Outreach [facility] OP CASE MANAGEMENT 1 [place] [address] Sangita Moore, RN 09/17/2024 SHOP/CHAP Subsequent Outreach [facility] OP CASE MANAGEMENT 1 [place] [address] Sangita Moore, RN 09/15/2024 SHOP/CHAP Initial Outreach [facility] OP CASE MANAGEMENT 1 [place] [address] Sangita Moore, RN 09/15/[address] Advanced [facility] 8th [place] [address] [place] [address] Rehan Sheth MD f/u orders 09/15/2024 SHOP/CHAP Initial Eligibility Review [facility] OP CASE MANAGEMENT 1 [place] [address] Sangita Moore, RN 09/11/2024 12:49 PM MEDICAL RESEARCH TECH - 09/14/2024 12:22 PM MEDICAL RESEARCH TECH Hospital Encounter [address] [address] Joseph Lucas MD Bardowell, Rachel Hannah, MD Baumann, Natalie Marie, MD Chest pain, unspecified type (Primary Dx) Discharge Disposition: Discharge to home or self care 09/11/2024 Documentation [facility]iology [address] [place] [address] Advanced Medicine 8th [place] [address] [place] [address] Rehan Sheth MD 09/11/2024 Telephone [facility]iology [address] [place] [address] Advanced [facility] 8th [place] [address] [place] [address] Rehan Sheth MD Symptoms update 09/10/2024 Telephone [facility]iology [address] [place] [address] Advanced [facility] 8th [place] [address] [place] [address] Rehan Sheth MD Cardiac Clearance request 09/10/2024 12:25 PM MEDICAL RESEARCH TECH Lab [facility] Advanced [facility] ([facility]) [address] [place] [address] Chronic heart failure with preserved ejection fraction (CMS/HCC) (HCC) 09/10/2024 11:15 AM MEDICAL RESEARCH TECH Office Visit [facility] Cardiology [address] [place] [address] 8th [place] [address] [place] [address] Rehan Sheth MD Chronic heart failure with preserved ejection fraction (CMS/HCC) (HCC) (Primary Dx); 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) 09/10/2024 Telephone [facility]iology [address] [place] [address] 8th [place] [address] [place] [address] Rehan Sheth MD Chest symptoms 09/09/2024 Telephone [facility]iology [address] [place] [address] 8th [place] [address] [place] [address] Rehan Sheth MD Samples/and report of ER eval 09/01/2024 Telephone [facility] Neurosurgery [address] [place] [address] Office [facility] [address] [place] [address] Clayton Robertson DO 08/26/2024 11:32 AM MEDICAL RESEARCH TECH - 08/26/2024 11:59 PM MEDICAL RESEARCH TECH Hospital Encounter [facility] [address] [place] [address] [address] [place] [address] Lumbar spondylosis; Chronic bilateral low back pain, unspecified whether sciatica present Discharge Disposition: Discharge to home or self care 08/26/2024 12:30 PM MEDICAL RESEARCH TECH Office Visit [facility] Neurosurgery [address] [place] [address] Office [address] [place] [address] Clayton Robertson DO 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) 08/06/2024 Orders Only [facility] Neurosurgery [address] [place] [address] Office [address] [place] [address] O[place]lade, Clayton, DO Lumbar spondylosis (Primary Dx); Chronic bilateral low back pain, unspecified whether sciatica present from Last 3 Months Allergies No known active allergies Medications albuterol HFA (PROVENTIL HFA,VENTOLIN HFA,PROAIR HFA) 90 mcg/actuation inhaler Inhale 2 puffs as needed for shortness of breath 09/17/19 15 Active True Metrix Glucose Meter kit USE DIRECTED 1 kit 08/17/20 21 Active lancets (PicLyf DelHarbinger Medical Plus Lancet) 30 gauge miscIndications:Typ e 2 diabetes mellitus with hyperosmolarity without coma, without long-term current use of insulin ([facility]) ([facility]) Use to check blood sugar 3x daily 300 each 2 02/01/20 22 Active blood glucose diagnostic (True Metrix Glucose Test Strip) stripIndications:Ty pe 2 diabetes mellitus with hyperosmolarity without coma, without long-term current use of insulin ([facility]) ([facility]) TEST BLOOD SUGAR EVERY DAY 100 strip 3 05/12/20 22 Active DropSafe Alcohol Prep Pads pads, medicated APPLY TOPICALLY TWICE DAILY 100 each 11 07/07/20 22 Active amLODIPine (NORVASC) 10 mg tablet Take 1 tablet (10 mg total) by mouth daily 90 tablet 3 02/09/20 23 Active PARoxetine (PAXIL) 20 mg tablet Take 1 tablet (20 mg total) by mouth every morning 90 tablet 3 02/09/20 23 Active methocarbamoL (ROBAXIN) 500 mg tabletIndications:C hronic midline low back pain without sciatica Take 1 tablet (500 mg total) by mouth 2 (two) times a day as needed for muscle spasms 60 tablet 1 12/07/19 24 Active atorvastatin (LIPITOR) 80 mg tablet Take 1 tablet (80 mg total) by mouth daily 30 tablet 2 05/22/20 24 025 Active clopidogreL (PLAVIX) 75 mg tabletIndications:T hrombosis Prevention after PCI Take 1 tablet (75 mg total) by mouth daily 30 tablet 3 05/22/20 24 025 Active spironolactone (ALDACTONE) 25 mg tablet Take 0.5 tablets (12.5 mg total) by mouth daily 15 tablet 11 06/17/20 24 10/29/2 025 Active simvastatin (ZOCOR) 20 mg tablet 06/28/20 24 Active doxazosin (CARDURA) 4 mg tablet TAKE 1 TABLET BY MOUTH EVERY NIGHT 100 tablet 2 07/14/20 24 Active carvediloL (COREG) 25 mg tablet TAKE 1 TABLET BY MOUTH TWICE DAILY WITH MEALS 200 tablet 2 07/14/20 24 Active glipiZIDE XL (GLUCOTROL XL) 5 mg 24 hr tablet TAKE 1 TABLET BY MOUTH DAILY 100 tablet 2 07/14/20 24 Active losartan (COZAAR) 100 mg tablet TAKE 1 TABLET BY MOUTH DAILY 60 tablet 5 07/21/20 24 Active apixaban (ELIQUIS) 5 mg tabletIndications:a trial fibrillation Take 1 tablet (5 mg total) by mouth 2 (two) times a day PLEASE RESUME THIS MEDICATION TOMORROW (05/22/2024) 56 tablet 09/09/19 25 Active isosorbide mononitrate ER (IMDUR) 30 mg 24 hr tablet Take 1 tablet (30 mg total) by mouth daily 30 tablet 11 09/10/19 25 026 Active potassium chloride ER 20 mEq CR tablet Take 1 tablet (20 mEq total) by mouth daily 09/18/19 25 Active furosemide (LASIX) 40 mg tablet Take 2 tabs in AM and one tab in PM 270 tablet 3 09/25/19 25 Active aspirin 81 mg chewable tablet Take 1 tablet (81 mg total) by mouth daily for 14 days 14 tablet 10/03/19 25 025 Active furosemide (LASIX) 40 mg tablet Take 1 tablet (40 mg total) by mouth 2 (two) times a day 09/10/19 25 025 Discontin ued(Reord er) Active Problems Problem Noted Date Diagnosed Date Chest pain, unspecified type 09/11/2024 Coronary artery disease invo lving skokomish coronary artery of skokomish heart with angina pectoris 09/10/2024 Internal carotid artery stenosis, right 06/12/20 Chronic heart failure with p reserved ejection fraction ([facility]/HCC) 06/12/2024 Stage 2 chronic kidney disease 06/12/2024 Thrombocytopenia 06/12/2024 Bilateral leg weakness 06/06/2024 NSTEMI (non-ST elevated myocardial infarction) ( [facility]/HCC) 05/20/2024 Assessment & Plan (05/21/2024 11:10 AM CDT): Repeat [facility] on 05/20/2024 showed: 60-70% lesion to mid LAD (with a positive IFR of 0.78) and a 90% lesion lesion to ostial circ; RCA with a known LICENSED PHYSICAL THERAPY ASSISTANT (angiography not performed). -s/p Successful PCI to [...] Plan (05/20/2024 11:34 AM CDT): Went to [facility] 05/17 for SOB, new 2L O2 requirement - OSH workup: Trp 1.95>5.1>10, proBNP 6800, CXR w/ mild interstitial edema - OSH [facility] 05/19 w/ L main widely patent, LAD proximal body 80% stenosis, LAD stent w/ moderate ISR, L cx w/ 95% stenosis in proximal body, OM branches w/ mild disease, RCA is LICENSED PHYSICAL THERAPY ASSISTANT in mid body w/ L to R collaterals - cath films uploaded - OSH TTE reportedly w/ EF 50%, AV prosthesis w/o abnormal gradients - trop here 7,3561, repeat pending - currently denies chest pain or pressure, sob improving - PCI today - continue heparin drip - continue asa, coreg, atorvastatin 80mg - telemetry Assessment & Plan (05/20/2024 1:02 AM CDT): Went to [facility] 05/17 for SOB, new 2L O2 requirement - OSH workup: Trp 1.95>5.1>10, proBNP 6800, CXR w/ mild interstitial edema - OSH [facility] 05/19 w/ L main widely patent, LAD proximal body 80% stenosis, LAD stent w/ moderate ISR, L cx w/ 95% stenosis in proximal body, OM branches w/ mild disease, RCA is LICENSED PHYSICAL THERAPY ASSISTANT in mid body w/ L to R [...] Assessment & Plan (05/21/2024 10:58 AM CDT): [facility] 05/17 for SOB, on 3.5L [...] Assessment & Plan (05/20/2024 11:50 AM CDT): [facility] 05/17 for SOB, on 3.5L [...] Assessment & Plan (05/20/2024 1:00 AM CDT): [facility] 05/17 for SOB, on 2L [...] Acute on chronic heart failure ([facility]) 024 Assessment & Plan [...] benefi Assessment & Plan (07/04/2024 1:02 PM MEDICAL RESEARCH TECH): He may just be symptomatic from his [...] Assessment & Plan (03/17/2024 1:48 PM CDT): 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 [...] stenosis. Assessment & Plan (07/04/2024 1:03 PM MEDICAL RESEARCH TECH): Failed LMBB. 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 COPD information handout given. [...] to PT - wants to go to [facility]. Trial robaxin. Flexeril on med list but [...] no Assessment & Plan (10/01/2019 10:35 AM MEDICAL RESEARCH TECH): S2 makes a wonderfully crisp snap w/o any regurge Gastroesophageal reflux disease 09/17/2014 Tussive syncope 08/25/2014 Syncope and collapse 08/21/2014 Syncope 08/21/2014 Type 2 diabetes mellitus 07/10/2014 Overview (05/13/2021): Was on levemir but stopped 2015 then on trulicity so on metformin ALONE We had better control w/ Jardiance -since he has been w/ Dr Stockton [phone] has been on Actose and metformin- Off [...] heart- Assessment & Plan (10/01/2019 10:30 AM MEDICAL RESEARCH TECH): His A1C has crept to 7.5% Admits [...] covered Assessment & Plan (09/04/2018 10:42 AM MEDICAL RESEARCH TECH): Diabetes is worsening. Continue current treatment regimen. Reminded to bring in blood sugar diary at next visit. Dietary recommendations for ADA diet. Regular aerobic exercise. Discussed foot care. Reminded to get yearly retinal exam. Diabetes will be reassessed in 3 months. Given his financial concerns my advice is to use food as Next 1 [employer] [facility] Obesity with body mass index 30 or greater 07/09 Generalized anxiety disorder 07/09/2014 Assessment & Plan (10/01/2019 10:32 AM MEDICAL RESEARCH TECH): He gets along nicely w/ a low [...] A virus 07/27/2017 02/22/2018 Paroxysmal atrial fibrillation ([facility]/HCC) 07/02/2017 09/04/2018 Overview (02/22/2018): Was on NOAC [...] Tobacco: Never Tobacco Cessation:Counseling Given: Not Answered [facility] Answer Date Recorded In the past 12 months has th e [employer], gas, oil, or water company threatened to [...] week 09/15/2024 How often do you attend [facility] or episcopalian services? More than 4 times per year [...] place to sleep or slept in a mcc (including now)? No 01/01/2024 Housing Stability Vital Sign Answer Deangelo e Recorded In the last 12 months, was t here a time when you were not able to pay the mortgage or rent on time? No 09/15/2024 In the past 12 months, how m any times have you moved where you were living? 1 09/15/2024 At any time in the past 12 m [facility], were you homeless or living in a mcc (including now)? No 09/15/2024 Personal Safety Answer Date Recorded Have you ever been in or are you currently in a harmful physical or emotional relationship or is someone making you feel afraid or unsafe? Denies 10/06/2024 Sex and Gender Information Value Date Recorded Sex Assigned at Not on file Legal Sex Male 8:23 PM MEDICAL RESEARCH TECH Gender Identity Not on file Sexual Orientation Not on file Last Filed Vital Signs Vital Sign Reading Time Taken Comments Blood Pressure 113/56 10/06/2024 6:55 PM MEDICAL RESEARCH TECH Pulse 66 10/06/2024 6:55 PM MEDICAL RESEARCH TECH Temperature 36.6 C (97.9 F) 10/06/2024 12:33 PM MEDICAL RESEARCH TECH Respiratory Rate 10 10/06/2024 6:55 PM MEDICAL RESEARCH TECH Oxygen Saturation 96% 10/06/2024 6:55 PM MEDICAL RESEARCH TECH Inhaled Oxygen Concentration - - Weight 99.8 kg (220 lb) 10/06/2024 12:33 PM MEDICAL RESEARCH TECH Height 182.9 cm (6') 10/06/2024 12:33 PM MEDICAL RESEARCH TECH Body Mass Index 29.84 10/06/2024 12:33 PM MEDICAL RESEARCH TECH Plan of Treatment Not on file Goals Goal Patient Goal Type Associated Problems Recent Progress Patient-Stated? Author CCM Chronic Pain Care Plan Chronic Care Management Improving( 10:49 AM MEDICAL RESEARCH TECH) Nenita Sanchez, RN Note: Problem: Chronic Pain Goals: 1. Minimize further functional decline 2. Maximize quality of life 3. Control pain Strategies: - Activity/exercise program recommendation - Conservative stepwise pain medicine strategy with multi-disciplinary approach - Recommend healthy lifestyle strategies and compensatory methods as needed Medical Devices Implanted Type Area Document Control Clerk Device Identifier Shelf Expiration Date Model / Serial / Lot Terum[employer]en Angio-Seal Vip Bondek-Plus 8fr .038in 70cm Hemostatic Latex Free [id number] - [id number] - [id number] Implanted:Qty : 1 on 05/20/2024 by Papo Rascon MD at [facility] Collagen Right: Common Femoral Artery [employer] Branden 12/10/2024 [id number] / [id number] / [id number] Prosthetic Valve Prosthetic Valve Heart Description:Heart Valve Medtronic Card Vasc Surgery 4.0 X 12mm Shar Archer Rx Coronary Stent [id number] - [id number] - [id number] Implanted:Qty : 1 on 05/20/2024 by Vitor Pedroza MD at [facility] Stent N/A: Circumflex Coronary Artery Medtronic Card Vasc Surgery 01/11/2027 [id number] / [id number] / [id number] Medtronic Card Vasc Surgery 4.0 X 12mm Shar Archer Rx Coronary Stent [id number] - [id number] - [id number] Implanted:Qty : 1 on 05/20/2024 by Vitor Pedroza MD at [facility] Stent Left: Anterior Descending Cornary Artery Medtronic Card Vasc Surgery 11/14/2026 [id number] / [id number] / [id number] Medtronic Card Vasc Surgery 4.0 X 18mm [place] Archer Rx Coronary Stent [id number] - [id number] - [id number] Implanted:Qty : 1 on 10/03/2024 by Nigel Holman MD at [facility] Stent Left: Anterior Descending Cornary Artery Medtronic Card Vasc Surgery 04/14/2027 [id number] / [id number] / [id number] Description:Adrian TO lad Procedures Procedure Name Priority Date/Time Associated Diagnosis Comments URINALYSIS, MICROSCOPIC ONLY STAT 10/06/2024 5:51 PM MEDICAL RESEARCH TECH URINALYSIS AND REFLEX TO MICROSCOPIC STAT 10/06/2024 5:51 PM MEDICAL RESEARCH TECH COMPREHENSIVE METABOLIC PANEL Routine 10/06/2024 3:59 PM MEDICAL RESEARCH TECH EGFR Routine 10/06/2024 3:59 PM MEDICAL RESEARCH TECH VITAMIN B12 Routine 10/06/2024 3:59 PM MEDICAL RESEARCH TECH TSH Routine 10/06/2024 3:59 PM MEDICAL RESEARCH TECH CBC WITHOUT DIFFERENTIAL Routine 10/06/2024 3:59 PM MEDICAL RESEARCH TECH RESPIRATORY PATHOGEN PANEL STAT 10/06/2024 3:[address] HEAD WO CONTRAST ED 10/06/2024 3 :37 PM MEDICAL RESEARCH TECH XR CHEST PA LATERAL 2 VIEWS ED 10/06/2024 3:30 PM MEDICAL RESEARCH TECH ECG 12-LEAD STAT 10/06/2024 1:07 PM MEDICAL RESEARCH TECH POCT GLUCOSE DEVICE Routine 10/06/2024 12:48 PM MEDICAL RESEARCH TECH EGFR Routine 10/03/2024 4:00 PM MEDICAL RESEARCH TECH DIFFERENTIAL AUTO Routine 10/03/2024 4:0 0 PM MEDICAL RESEARCH TECH CBC WITH AUTO DIFFERENTIAL Routine 10/03/2024 4:00 PM MEDICAL RESEARCH TECH BASIC METABOLIC PANEL Routine 10/03/2024 4:00 PM MEDICAL RESEARCH TECH POCT ACTIVATED CLOTTING TIME, LOW RANGE Routine 10/03/2024 2:14 PM MEDICAL RESEARCH TECH RIGHT AND LEFT HEART CATHETERIZATION Routine 10/03/2024 12:42 PM MEDICAL RESEARCH TECH Chronic systolic heart failure (CMS/HCC) (HCC) 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) Acute on chronic heart failure, unspecified heart failure type (HCC) Paroxysmal atrial fibrillation (CMS/HCC) (HCC) History of aortic valve replacement POCT ACTIVATED CLOTTING TIME, LOW RANGE Routine 10/03/2024 12:42 PM MEDICAL RESEARCH TECH TYPE AND SCREEN Timed 10/03/2024 12:20 PM MEDICAL RESEARCH TECH POCT ACTIVATED CLOTTING TIME, LOW RANGE Routine 10/03/2024 12:06 PM MEDICAL RESEARCH TECH POCT OXYHEMOGLOBIN - DEVICE Routine 10/03/2024 11:47 AM MEDICAL RESEARCH TECH POCT OXYHEMOGLOBIN - DEVICE Routine 10/03/2024 11:45 AM MEDICAL RESEARCH TECH CBC WITHOUT DIFFERENTIAL Routine 10/03/2024 11:45 AM MEDICAL RESEARCH TECH POCT OXYHEMOGLOBIN - DEVICE Routine 10/03/2024 11:44 AM MEDICAL RESEARCH TECH POCT GLUCOSE DEVICE Routine 10/03/2024 8 :45 AM MEDICAL RESEARCH TECH BASIC METABOLIC PANEL Routine 09/29/2024 9:42 AM MEDICAL RESEARCH TECH High risk medications (not anticoagulants) long-term use EGFR Routine 09/24/2024 5:03 PM MEDICAL RESEARCH TECH Chronic heart failure with preserved ejection fraction (CMS/HCC) (HCC) DIFFERENTIAL AUTO Routine 09/24/2024 5:0 3 PM MEDICAL RESEARCH TECH Chronic heart failure with preserved ejection fraction (CMS/HCC) (HCC) BASIC METABOLIC PANEL Routine 09/24/2024 5:03 PM MEDICAL RESEARCH TECH Chronic heart failure with preserved ejection fraction (CMS/HCC) (HCC) PRO B-TYPE NATRIURETIC PEPTIDE Routine 09/24/2024 5:03 PM MEDICAL RESEARCH TECH Chronic heart failure with preserved ejection fraction (CMS/HCC) (HCC) CBC WITH AUTO DIFFERENTIAL Routine 09/24/2024 5:03 PM MEDICAL RESEARCH TECH Chronic heart failure with preserved ejection fraction (CMS/HCC) (HCC) ECG 12-LEAD Routine 09/24/2024 4:01 PM MEDICAL RESEARCH TECH History of aortic valve replacement EGFR STAT 09/14/2024 8:23 AM MEDICAL RESEARCH TECH BASIC METABOLIC PANEL STAT 09/14/2024 8:23 AM MEDICAL RESEARCH TECH EGFR Routine 09/13/2024 9:57 PM MEDICAL RESEARCH TECH CBC WITHOUT DIFFERENTIAL Routine 09/13/2024 9:57 PM MEDICAL RESEARCH TECH MAGNESIUM Routine 09/13/2024 9:57 PM MEDICAL RESEARCH TECH BASIC METABOLIC PANEL Routine 09/13/2024 9:57 PM MEDICAL RESEARCH TECH EGFR Routine 09/12/2024 8:13 PM MEDICAL RESEARCH TECH CBC WITHOUT DIFFERENTIAL Routine 09/12/2024 8:13 PM MEDICAL RESEARCH TECH MAGNESIUM Routine 09/12/2024 8:13 PM MEDICAL RESEARCH TECH BASIC METABOLIC PANEL Routine 09/12/2024 8:13 PM MEDICAL RESEARCH TECH SODIUM, URINE, RANDOM Routine 09/12/2024 12:36 PM MEDICAL RESEARCH TECH POCT GLUCOSE DEVICE Routine 09/12/2024 7 :52 AM MEDICAL RESEARCH TECH POCT GLUCOSE DEVICE Routine 09/12/2024 6 :21 AM MEDICAL RESEARCH TECH POCT GLUCOSE DEVICE Routine 09/12/2024 2 :15 AM MEDICAL RESEARCH TECH EGFR Routine 09/11/2024 11:44 PM MEDICAL RESEARCH TECH CBC WITHOUT DIFFERENTIAL Routine 09/11/2024 11:44 PM MEDICAL RESEARCH TECH MAGNESIUM Routine 09/11/2024 11:44 PM MEDICAL RESEARCH TECH BASIC METABOLIC PANEL Routine 09/11/2024 11:44 PM MEDICAL RESEARCH TECH POCT GLUCOSE DEVICE Routine 09/11/2024 8 :14 PM MEDICAL RESEARCH TECH POCT GLUCOSE DEVICE Routine 09/11/2024 5 :23 PM MEDICAL RESEARCH TECH TROPONIN I HIGH-SENSITIVITY 4-HOUR Timed 09/11/2024 3:10 PM MEDICAL RESEARCH TECH POCUS CARDIAC 09/11/2024 1:58 PM MEDICAL RESEARCH TECH PRO B-TYPE NATRIURETIC PEPTIDE STAT 09/11/2024 1:30 PM MEDICAL RESEARCH TECH TROPONIN I HIGH-SENSITIVITY 2-HOUR Timed 09/11/2024 1:30 PM MEDICAL RESEARCH TECH XR CHEST PA LATERAL 2 VIEWS ED 09/11/2024 11:13 AM MEDICAL RESEARCH TECH EGFR STAT 09/11/2024 11:03 AM MEDICAL RESEARCH TECH DIFFERENTIAL AUTO STAT 09/11/2024 11:03 AM MEDICAL RESEARCH TECH TROPONIN I HIGH-SENSITIVITY SERIES (BASELINE, 2HR, 4HR, 6HR) STAT 09/11/2024 11:03 AM MEDICAL RESEARCH TECH COMPREHENSIVE METABOLIC PANEL STAT 09/11/2024 11:03 AM MEDICAL RESEARCH TECH CBC WITH AUTO DIFFERENTIAL STAT 09/11/2024 11:03 AM MEDICAL RESEARCH TECH ECG 12-LEAD STAT 09/11/2024 10:52 AM MEDICAL RESEARCH TECH POCT GLUCOSE DEVICE Routine 09/11/2024 10:48 AM MEDICAL RESEARCH TECH EGFR Routine 09/10/2024 12:26 PM MEDICAL RESEARCH TECH Chronic heart failure with preserved ejection fraction (CMS/HCC) (HCC) PRO B-TYPE NATRIURETIC PEPTIDE Routine 09/10/2024 12:26 PM MEDICAL RESEARCH TECH Chronic heart failure with preserved ejection fraction (CMS/HCC) (HCC) BASIC METABOLIC PANEL Routine 09/10/2024 12:26 PM MEDICAL RESEARCH TECH Chronic heart failure with preserved ejection fraction (CMS/HCC) (HCC) ECG 12-LEAD Routine 09/10/2024 11:33 AM MEDICAL RESEARCH TECH Chronic heart failure with preserved ejection fraction (CMS/HCC) (HCC) XR SCOLIOSIS AP LAT Schedule Routine, Read Routine (OP Routine) 08/26/2024 11:42 AM MEDICAL RESEARCH TECH Lumbar spondylosis Chronic bilateral low back pain, unspecified whether sciatica present BASIC METABOLIC PANEL Routine 07/30/2024 12:37 PM MEDICAL RESEARCH TECH High risk medications (not anticoagulants) long-term use BASIC METABOLIC PANEL Routine 07/16/2024 11:34 AM MEDICAL RESEARCH TECH High risk medications (not anticoagulants) long-term use HEMOGLOBIN A1C Routine 06/07/2024 8:38 AM CDT LIPID PANEL Routine 06/07/2024 8:38 AM CDT DIABETES FOOT EXAM Routine 11/05/2020 DIABETES EYE EXAM Routine 05/05/2019 from Last 3 Months or Most Recently Relevant to Health Maintenance Results * (ABNORMAL) Urinalysis reflex to microscopic (10/06/2024 5:51 PM MEDICAL RESEARCH TECH) Color, ur Straw Yellow Clarity, ur Clear Clear [facility] Specific gravity, ur 1.010 1.003 - 1.030 [facility] pH, urine 6.0 [facility] Comment: Interpretive Data U rine pH is affected by diet, medications, systemic acid-base disturbances, and renal tubular function. pH may affect urinary stone formation. For example, urine pH below 6.0 may help reduce the tendency for calcium phosphate stones and pH greater than 6.0 may reduce the tendency for uric acid stone formation. Source: [facility] [id number] Current Interpretive Data was last revised on 2017 Protein, ur ql Negative Negative [facility] Glucose, ur ql Negative Negative [facility] Ketones, ur Negative Negative [facility] Bilirubin, ur Negative Negative [facility] Blood, ur Negative Negative [facility] Urobilinogen, ur <2.0 <2.0 mg/dL [facility] Nitrite, ur Negative Negative [facility] Leukocyte esterase, ur Trace(A) Negative [facility] UA reflex comment Reflex to microscopic UA will be performed. [facility] Urine 10/06/2024 5:51 PM MEDICAL RESEARCH TECH 10/06/2024 5:58 PM MEDICAL RESEARCH TECH Aneta Castellanos MD LAB URINE ORDERABLES Final R esult Performing Organization Address City/[facility] Co de Phone Number [facility] Department [place] [address] * (ABNORMAL) Urinalysis, microscopic only (10/06/2024 5:51 PM MEDICAL RESEARCH TECH) WBC, ur 0-5 0 - 5 /HPF RBC, ur 0-2 0 - 2 /HPF [facility] Epithelial cells, squamous, ur 1-5 0 - 5 /HPF [facility] Epithelial cells, transitional, ur 1-5 0 - 0 /HPF [facility] Bacteria, ur Trace(A) [facility] Mucous, ur Present(A) [facility] Hyaline casts, ur 6-10 0 - 10 /LPF [facility] Urine 10/06/2024 5:51 PM MEDICAL RESEARCH TECH 10/06/2024 5:58 PM MEDICAL RESEARCH TECH Aneta Castellanos MD LAB URINE ORDERABLES Final R esult Performing Organization Address [facility] Co de Phone Number [facility] Department [place] [address] * eGFR (10/06/2024 3:59 PM MEDICAL RESEARCH TECH) eGFR 64 >=60 mL/min/1. 73 m2 Comment: [...] last reviewed 2021. Blood 10/06/2024 3:59 PM MEDICAL RESEARCH TECH 10/06/2024 4:26 PM MEDICAL RESEARCH TECH Aneta Castellanos MD LAB BLOOD ORDERABLES Final R esult [facility] Department [place] [address] * Respiratory pathogen panel Nasopharyngeal (10/06/2024 3:59 PM MEDICAL RESEARCH TECH) Pathologist [facility] Influenza A RNA Not Detected Not Detected Influenza B RNA Not Detected Not Detected [facility] RSV RNA Not Detected Not Detected [facility] COVID-19 RNA Not Detected Not Detected [facility] Coronavirus 229E RNA Not Detected Not Detected [facility] Coronavirus HKU1 RNA Not Detected Not Detected [facility] Coronavirus NL63 RNA Not Detected Not Detected [facility] Coronavirus OC43 RNA Not Detected Not Detected [facility] Adenovirus DNA Not Detected Not Detected [facility] Metapneumovirus RNA Not Detected Not Detected [facility] Rhinovirus/Enterov irus RNA Not Detected Not Detected [facility] Parainfluenza 1 RNA Not Detected Not Detected [facility] Parainfluenza 2 RNA Not Detected Not Detected [facility] Parainfluenza 3 RNA Not Detected Not Detected [facility] Parainfluenza 4 RNA Not Detected Not Detected [facility] B. pertussis DNA Not Detected Not Detected [facility] B. parapertussis DNA Not Detected Not Detected [facility] C. pneumoniae DNA Not Detected Not Detected [facility] M. pneumoniae DNA Not Detected Not Detected [facility] Nasopharyngeal 10/06/2024 3: 59 PM MEDICAL RESEARCH TECH 10/06/2024 4:19 PM MEDICAL RESEARCH TECH Narrative [facility] - 10/06/2024 6:14 PM MEDICAL RESEARCH TECH Is the Patient experiencing symptoms consistent with COVID?->No Surveillance testing for transplant patient?->No Interpretive Data The [employer] FilmArray Respiratory Panel (RP2.1) assay is a [...] assay has FDA clearance for testing of DETENTION OFFICER swabs. The performance of additional specimen types has been assessed by the performing laboratory. The performance characteristics of this assay have been determined by [facility] Molecular Infectious Disease Laboratory. Current interpretive data was last revised on 22. us Oralia Cummings MD LAB MICROBIOLOGY - GENERAL OR DERABLES Final Result Performing Organization Address [facility] Co de Phone Number [facility] Department [place] [address] * (ABNORMAL) CBC without differential (10/06/2024 3:59 PM MEDICAL RESEARCH TECH) Pathologist [facility] WBC 6.8 3.8 - 9.9 K/cumm Hgb 11.5(L) 13.0 - 17.5 g/dL [facility] Hct 34.1(L) 38.9 - 50.3 % [facility] Plt 162 150 - 400 K/cumm [facility] MPV 11.4 9.1 - 12.3 fL [facility] RBC 3.72(L) 4.30 - 5.80 M/cumm [facility] MCV 91.7 81.3 - 96.4 fL [facility] MCH 30.9 27.1 - 33.3 pg [facility] MCHC 33.7 32.3 - 35.7 g/dL [facility] RDW CV 14.7 11.1 - 14.9 % [facility] RDW SD 49.6(H) 35.7 - 48.1 fL [facility] NRBC abs 0.00 0.00 - 0.01 K/cumm [facility] Blood 10/06/2024 3:59 PM MEDICAL RESEARCH TECH 10/06/2024 4:26 PM MEDICAL RESEARCH TECH us Priscilla Sarmiento MD LAB BLOOD ORDERABLES Final R esult Performing Organization Address City/[facility]/ZIP Co de Phone Number [facility] Department [place] [address] * TSH (10/06/2024 3:59 PM MEDICAL RESEARCH TECH) Pathologist [facility] Thyroid Stimulating Hormone 3.88 0.30 - 4.20 mcIUnit/mL Blood 10/06/2024 3:59 PM MEDICAL RESEARCH TECH 10/06/2024 4:09 PM MEDICAL RESEARCH TECH us Oralia Cummings MD LAB BLOOD ORDERABLES Final Re sult Performing Organization Address City/[facility]/ZIP Co de Phone Number [facility] Department [place] [address] * Vitamin B12 (10/06/2024 3:59 PM MEDICAL RESEARCH TECH) [facility] Vitamin B12 420 230 - 1,250 pg/mL Blood 10/06/2024 3:59 PM MEDICAL RESEARCH TECH 10/06/2024 4:09 PM MEDICAL RESEARCH TECH us Oralia Cummings MD LAB BLOOD ORDERABLES Final Re sult Performing Organization Address [facility] Co de Phone Number [facility] Department [place] [address] * (ABNORMAL) Comprehensive metabolic panel (10/06/2024 3:59 PM MEDICAL RESEARCH TECH) [facility] Sodium 143 135 - 145 mmol/L Potassium, pl 4.3 3.3 - 4.9 mmol/L [facility] Chloride 104 97 - 110 mmol/L [facility] CO2 26 22 - 32 mmol/L [facility] Anion gap 13 2 - 15 mmol/L [facility] BUN 26(H) 6 - 25 mg/dL [facility] Creatinine 1.12 0.80 - 1.30 mg/dL [facility] Glucose 94 70 - 199 mg/dL [facility] Comment: Interpretive Data Fasting glucose >/= 126 [...] 2022. Calcium 9.1 8.5 - 10.3 mg/dL [facility] Bilirubin, total 0.4 0.1 - 1.2 mg/dL [facility] Protein, pl 7.1 6.5 - 8.5 g/dL [facility] Albumin 3.9 3.5 - 5.0 g/dL [facility] Alk phos 45 40 - 130 Units/L [facility] ALT 15 7 - 55 Units/L [facility] AST 37 10 - 50 Units/L [facility] Blood 10/06/2024 3:59 PM MEDICAL RESEARCH TECH 10/06/2024 4:09 PM MEDICAL RESEARCH TECH us Aneta Castellanos MD LAB BLOOD ORDERABLES Final R esult [facility] Department [place] [address] * CT Head WO Contrast (10/06/2024 3:37 PM MEDICAL RESEARCH TECH) Anatomical Region Laterality Modality Head and Neck N/A Computed Tomogra phy 10/06/2024 4:29 PM MEDICAL RESEARCH TECH Impressions 10/06/2024 4:41 PM MEDICAL RESEARCH TECH No acute intracranial hemorrhage, large vessel territory infarction, mass effect, or midline shift. Dictated by: Nikolas Vega M.D. The radiology attending physician has personally reviewed this study, and had reviewed and/or edited this written report and agrees with it. Electronically signed by: Johnny Ballesteros M.D, PHD Narrative 10/06/2024 4:41 PM MEDICAL RESEARCH TECH EXAMINATION: CT head without contrast HISTORY: Altered [...] PA Lateral 2 Views (10/06/2024 3:30 PM MEDICAL RESEARCH TECH) Anatomical Region Laterality Modality Body, Chest N/A Computed Radiogr aphy 10/06/2024 3:42 PM MEDICAL RESEARCH TECH Impressions 10/06/2024 3:49 PM MEDICAL RESEARCH TECH Comparison with chest radiograph dated 07/12/2025. Median [...] Luna Perez M.D. Narrative 10/06/2024 3:49 PM MEDICAL RESEARCH TECH EXAMINATION: 2 view chest radiograph Procedure Note [...] lt * ECG 12-LEAD (10/06/2024 1:07 PM MEDICAL RESEARCH TECH) Narrative [facility] - 10/06/2024 1:07 PM MEDICAL RESEARCH TECH Nupur Orozco MD 10/06/2024 1:08 PM ECG 12 lead Date/Time: 10/06/2024 1:07 PM Performed by: Nupur Orozco MD Authorized by: Jaylen Petersen MD Comments: EKG Interpretation Interpreted by ED physician in absence of a j2ee developer Ventricular rate: 65 bpm Rhythm: sinus with PACs [place]: Normal Intervals: 1st degree av block, wide QRS Other findings: no acute ischemia Interpretation: abnormal EKG, LBBB, ectopy Compared to priors: no priors for comparison us Aneta Castellanos MD ECG ORDERABLES Final Result [facility] * POCT glucose (10/06/2024 12:48 PM MEDICAL RESEARCH TECH) Glucose, POC 112 70 - 199 mg/dL Blood 10/06/2024 12:4 8 PM MEDICAL RESEARCH TECH 10/06/2024 12:48 PM MEDICAL RESEARCH TECH Notinfile Unknown LAB POCT ORDERABLES - DEVICE F inal Result Performing Organization Address City/[facility] Co de Phone Number [facility] [place] [address] * eGFR (10/03/2024 4:00 PM MEDICAL RESEARCH TECH) eGFR 73 >=60 mL/min/1. 73 m2 Comment: [...] last reviewed 2021. Blood 10/03/2024 4:00 PM MEDICAL RESEARCH TECH 10/03/2024 4:23 PM MEDICAL RESEARCH TECH us Crescencio Vázquez MD LAB BLOOD ORDERABLES Final Resul t Performing Organization Address [facility] Co de Phone Number [facility] [place] [address] * Differential, auto (10/03/2024 4:00 PM MEDICAL RESEARCH TECH) Neutrophil abs 3.7 1.5 - 6.5 K/cumm Imm gran abs 0.0 0.0 - 0.1 K/cumm [facility] Lymphocyte abs 1.5 0.8 - 3.3 K/cumm [facility] Monocyte abs 0.4 0.2 - 0.8 K/cumm [facility] Eosinophil abs 0.2 0.0 - 0.5 K/cumm [facility] Basophil abs 0.0 0.0 - 0.1 K/cumm [facility] Neutrophil pct 63.5 % [facility] Comment: Interpretive Data Percent cell count reference ranges are not reported, since discordance with absolute values may lead to misinterpretation of CBC data. Current Interpretive Data was last revised on 2017. Imm gran pct 0.3 % [facility] Comment: Interpretive Data Percent cell count reference ranges are not reported, since discordance with absolute values may lead to misinterpretation of CBC data. Current Interpretive Data was last revised on 2017. Lymphocyte pct 26.0 % [facility] Comment: Interpretive Data Percent cell count reference ranges are not reported, since discordance with absolute values may lead to misinterpretation of CBC data. Current Interpretive Data was last revised on 2017. Monocyte pct 7.1 % [facility] Comment: Interpretive Data Percent cell count reference ranges are not reported, since discordance with absolute values may lead to misinterpretation of CBC data. Current Interpretive Data was last revised on 2017. Eosinophil pct 2.6 % [facility] Comment: Interpretive Data Percent cell count reference ranges are not reported, since discordance with absolute values may lead to misinterpretation of CBC data. Current Interpretive Data was last revised on 2017. Basophil pct 0.5 % [facility] Comment: Interpretive Data Percent cell count reference ranges are not reported, since discordance with absolute values may lead to misinterpretation of CBC data. Current Interpretive Data was last revised on 2017. Blood 10/03/2024 4:00 PM MEDICAL RESEARCH TECH 10/03/2024 4:18 PM MEDICAL RESEARCH TECH us Crescencio Vázquez MD LAB BLOOD ORDERABLES Final Resul t [facility] [place] [address] * (ABNORMAL) CBC with auto differential (10/03/2024 4:00 PM MEDICAL RESEARCH TECH) WBC 5.8 3.8 - 9.9 K/cumm Hgb 10.8(L) 13.0 - 17.5 g/dL [facility] Hct 32.5(L) 38.9 - 50.3 % [facility] Plt 143(L) 150 - 400 K/cumm [facility] MPV 11.6 9.1 - 12.3 fL [facility] RBC 3.54(L) 4.30 - 5.80 M/cumm [facility] MCV 91.8 81.3 - 96.4 fL [facility] MCH 30.5 27.1 - 33.3 pg [facility] MCHC 33.2 32.3 - 35.7 g/dL [facility] RDW CV 14.4 11.1 - 14.9 % [facility] RDW SD 48.6(H) 35.7 - 48.1 fL [facility] NRBC abs 0.00 0.00 - 0.01 K/cumm [facility] Blood 10/03/2024 4:00 PM MEDICAL RESEARCH TECH 10/03/2024 4:18 PM MEDICAL RESEARCH TECH us Crescencio Vázquez MD LAB BLOOD ORDERABLES Final Resul t [facility] Department [place] [address] * Basic metabolic panel (10/03/2024 4:00 PM MEDICAL RESEARCH TECH) Sodium 142 135 - 145 mmol/L Potassium, pl 3.8 3.3 - 4.9 mmol/L [facility] Chloride 104 97 - 110 mmol/L [facility] CO2 28 22 - 32 mmol/L [facility] Anion gap 10 2 - 15 mmol/L [facility] BUN 17 6 - 25 mg/dL [facility] Creatinine 1.01 0.80 - 1.30 mg/dL [facility] Glucose 179 70 - 199 mg/dL [facility] Comment: Interpretive Data Fasting glucose >/= 126 [...] 2022. Calcium 8.5 8.5 - 10.3 mg/dL [facility] Blood 10/03/2024 4:00 PM MEDICAL RESEARCH TECH 10/03/2024 4:18 PM MEDICAL RESEARCH TECH us Crescencio Vázquez MD LAB BLOOD ORDERABLES Final Resul t Performing Organization Address City/[facility]/ZIP Co de Phone Number [facility] [id number] [place] [address] * (ABNORMAL) POCT Activated clotting time, low range (10/03/2024 2:14 PM MEDICAL RESEARCH TECH) ACT 181(H) 123 - 168 sec POC Performer [id number] [facility] POC Device Number [id number] [facility] Blood 10/03/2024 2:14 PM MEDICAL RESEARCH TECH 10/03/2024 2:14 PM MEDICAL RESEARCH TECH us Nigel Holman MD LAB POCT ORDERABLES - DEVICE Final Result Performing Organization Address [facility] Co de Phone Number [facility] [id number] [place] [address] * RIGHT AND LEFT HEART CATHETERIZATION (10/03/2024 12:42 PM MEDICAL RESEARCH TECH) Anatomical Region Laterality Modality X-Ray Angiograph y Impressions 10/03/2024 2:26 PM MEDICAL RESEARCH TECH Severe stenosis of the mid LAD with [...] Nigel Holman MD Narrative 10/03/2024 2:26 PM MEDICAL RESEARCH TECH Table formatting from the original result was not included. Procedure: CORONARY ANGIOGRAM / RIGHT HEART CATHETERIZATION/ percutaneous coronary intervention Patient: Ashkan Pryor is a 84 y.o. male : 1940 MR number: [id number] Date of Service: 10/03/2024 Automatic Grinder Operator: Nigel Holman MD Fellow: Crescencio Vázquez MD [...] obtained. The patient was brought to the laborer pole crew and placed on the table Bilateral groins [...] performed Right heart catheterization preformed with 7 [place] arrow Brogan At the end of the procedure, arteriotomy [...] vasodilators and reimage that showed some slight shinto of flow. Upon review it looks as [...] TR band was placed COMPLICATIONS: None DIAGNOSTIC Rehan Sheth MD CV CARDIAC CATH PROCED URES Final Result * (ABNORMAL) POCT Activated clotting time, low range (10/03/2024 12:42 PM MEDICAL RESEARCH TECH) ACT 252(H) 123 - 168 sec POC Performer [id number] [facility] POC Device Number [id number] [facility] Blood 10/03/2024 12:4 2 PM MEDICAL RESEARCH TECH 10/03/2024 12:42 PM MEDICAL RESEARCH TECH Nigel Holman MD LAB POCT ORDERABLES - DEVICE Final Result Performing Organization Address [facility] Co de Phone Number [facility] Department of [address] [place] [address] * Type and screen (10/03/2024 12:20 PM MEDICAL RESEARCH TECH) Lit, indirect Negative ABO Rh A Positive [facility] Blood 10/03/2024 12:2 0 PM MEDICAL RESEARCH TECH 10/03/2024 12:39 PM MEDICAL RESEARCH TECH Narrative [facility] - 10/03/2024 1:32 PM MEDICAL RESEARCH TECH Has the patient had Daratumumab or Isatuximab in the past 6 months?->Unknown Nigel Holman MD LAB BLOOD BANK TEST ORDERABL ES Final Result Performing Organization Address [facility] Co de Phone Number [facility] Department of [address] [place] [address] * (ABNORMAL) POCT Activated clotting time, low range (10/03/2024 12:06 PM MEDICAL RESEARCH TECH) ACT 240(H) 123 - 168 sec POC Performer [id number] [facility] POC Device Number [id number] [facility] Blood 10/03/2024 12:0 6 PM MEDICAL RESEARCH TECH 10/03/2024 12:06 PM MEDICAL RESEARCH TECH us Nigel Holman MD LAB POCT ORDERABLES - DEVICE Final Result Performing Organization Address City/[facility] Co de Phone Number [facility] [place] [address] * (ABNORMAL) POCT oxyhemoglobin (10/03/2024 11:47 AM MEDICAL RESEARCH TECH) EXPLOSIVE MAN Oxyhemoglobin 95.3 >=65.0 % EXPLOSIVE MAN Hemoglobin 11.7(L) 13.0 - 17.5 g/dL [facility] EXPLOSIVE MAN O2 content 15.5 15.0 - 22.0 Vol % [facility] Anatomic Site aPOC Aorta descend [facility] Blood 10/03/2024 11:4 7 AM MEDICAL RESEARCH TECH 10/03/2024 11:47 AM MEDICAL RESEARCH TECH us Nigel Holman MD LAB POCT ORDERABLES - DEVICE Final Result Performing Organization Address [facility] Co de Phone Number [facility] [place] [address] * (ABNORMAL) POCT oxyhemoglobin (10/03/2024 11:45 AM MEDICAL RESEARCH TECH) EXPLOSIVE MAN Oxyhemoglobin 67.9 >=65.0 % EXPLOSIVE MAN Hemoglobin 11.0(L) 13.0 - 17.5 g/dL [facility] EXPLOSIVE MAN O2 content 10.4(L) 15.0 - 22.0 Vol % [facility] Anatomic Site aPOC Pulm Art main [facility] Blood 10/03/2024 11:4 5 AM MEDICAL RESEARCH TECH 10/03/2024 11:45 AM MEDICAL RESEARCH TECH Nigel Holman MD LAB POCT ORDERABLES - DEVICE Final Result Performing Organization Address City/[facility] Co de Phone Number [facility] [place] [address] * (ABNORMAL) CBC without differential (10/03/2024 11:45 AM MEDICAL RESEARCH TECH) [facility] WBC 6.8 3.8 - 9.9 K/cumm Hgb 11.3(L) 13.0 - 17.5 g/dL [facility] Hct 34.2(L) 38.9 - 50.3 % [facility] Plt 142(L) 150 - 400 K/cumm [facility] MPV 11.3 9.1 - 12.3 fL [facility] RBC 3.65(L) 4.30 - 5.80 M/cumm [facility] MCV 93.7 81.3 - 96.4 fL [facility] MCH 31.0 27.1 - 33.3 pg [facility] MCHC 33.0 32.3 - 35.7 g/dL [facility] RDW CV 14.1 11.1 - 14.9 % [facility] RDW SD 49.1(H) 35.7 - 48.1 fL [facility] NRBC abs 0.00 0.00 - 0.01 K/cumm [facility] Blood 10/03/2024 11:4 5 AM MEDICAL RESEARCH TECH 10/03/2024 11:51 AM MEDICAL RESEARCH TECH Narrative [facility] - 10/03/2024 12:12 PM MEDICAL RESEARCH TECH To be drawn after hydration bolus complete Nigel Holman MD LAB BLOOD ORDERABLES Final R esult [facility] One [facility] Department [place] [address] * (ABNORMAL) POCT oxyhemoglobin (10/03/2024 11:44 AM MEDICAL RESEARCH TECH) [facility] EXPLOSIVE MAN Oxyhemoglobin 69.1 >=65.0 % EXPLOSIVE MAN Hemoglobin 11.3(L) 13.0 - 17.5 g/dL [facility] EXPLOSIVE MAN O2 content 10.9(L) 15.0 - 22.0 Vol % [facility] Anatomic Site aPOC Pulm Art main [facility] Blood 10/03/2024 11:4 4 AM MEDICAL RESEARCH TECH 10/03/2024 11:44 AM MEDICAL RESEARCH TECH Nigel Holman MD LAB POCT ORDERABLES - DEVICE Final Result Performing Organization Address City/[facility] Co de Phone Number [facility] [place] [address] * POCT glucose (10/03/2024 8:45 AM MEDICAL RESEARCH TECH) Glucose, POC 117 70 - 199 mg/dL Blood 10/03/2024 8:45 AM MEDICAL RESEARCH TECH 10/03/2024 8:45 AM MEDICAL RESEARCH TECH Nigel Holman MD LAB POCT ORDERABLES - DEVICE Final Result Performing Organization Address [facility] de Phone Number [facility] [place] [address] * Basic metabolic panel (09/29/2024 9:42 AM MEDICAL RESEARCH TECH) Glucose 99 65 - 99 mg/dL [facility] Comment: Fasting reference interval BUN 23 7 - 25 mg/dL [facility] Creatinine 0.96 0.70 - 1.22 mg/dL [facility] eGFR 77 > OR = 60 mL/min/1.7 3m2 [facility] BUN/creat ratio SEE NOTE: 6 - 22 (calc) [facility] Comment: [...] [facility] Blood 09/29/2024 9:42 AM MEDICAL RESEARCH TECH 09/29/2024 9:42 AM MEDICAL RESEARCH TECH Rehan Sheth MD LAB BLOOD ORDERABLES F inal Result [facility] [address] [place] [address] * (ABNORMAL) eGFR (09/24/2024 5:03 PM MEDICAL RESEARCH TECH) eGFR 55(L) >=60 mL/min/1. 73 m2 Comment: [...] last reviewed 2021. Blood 09/24/2024 5:03 PM MEDICAL RESEARCH TECH 09/24/2024 5:24 PM MEDICAL RESEARCH TECH us Rehan Sheth MD LAB BLOOD ORDERABLES F inal Result [facility] One [facility] Department [place] [address] * Differential, auto (09/24/2024 5:03 PM MEDICAL RESEARCH TECH) Neutrophil abs 3.6 1.5 - 6.5 K/cumm Imm gran abs 0.0 0.0 - 0.1 K/cumm [facility] Lymphocyte abs 1.9 0.8 - 3.3 K/cumm [facility] Monocyte abs 0.6 0.2 - 0.8 K/cumm [facility] Eosinophil abs 0.2 0.0 - 0.5 K/cumm [facility] Basophil abs 0.0 0.0 - 0.1 K/cumm [facility] Neutrophil pct 56.5 % [facility] Comment: Interpretive Data Percent cell count reference ranges are not reported, since discordance with absolute values may lead to misinterpretation of CBC data. Current Interpretive Data was last revised on 2017. Imm gran pct 0.6 % [facility] Comment: Interpretive Data Percent cell count reference ranges are not reported, since discordance with absolute values may lead to misinterpretation of CBC data. Current Interpretive Data was last revised on 2017. Lymphocyte pct 30.0 % [facility] Comment: Interpretive Data Percent cell count reference ranges are not reported, since discordance with absolute values may lead to misinterpretation of CBC data. Current Interpretive Data was last revised on 2017. Monocyte pct 9.1 % [facility] Comment: Interpretive Data Percent cell count reference ranges are not reported, since discordance with absolute values may lead to misinterpretation of CBC data. Current Interpretive Data was last revised on 2017. Eosinophil pct 3.3 % [facility] Comment: Interpretive Data Percent cell count reference ranges are not reported, since discordance with absolute values may lead to misinterpretation of CBC data. Current Interpretive Data was last revised on 2017. Basophil pct 0.5 % [facility] Comment: Interpretive Data Percent cell count reference ranges are not reported, since discordance with absolute values may lead to misinterpretation of CBC data. Current Interpretive Data was last revised on 2017. Blood 09/24/2024 5:03 PM MEDICAL RESEARCH TECH 09/24/2024 5:24 PM MEDICAL RESEARCH TECH us Rehan Sheth MD LAB BLOOD ORDERABLES F inal Result [facility] One [facility] Department [place] [address] * (ABNORMAL) Pro B-type natriuretic peptide (09/24/2024 5:03 PM MEDICAL RESEARCH TECH) NT-proBNP 2,036(H) <=450 pg/mL Comment: Interpretive Comments: [...] Revised Date: 2018. Blood 09/24/2024 5:03 PM MEDICAL RESEARCH TECH 09/24/2024 5:24 PM MEDICAL RESEARCH TECH Rehan Sheth MD LAB BLOOD ORDERABLES F inal Result [facility] One [facility] Department [place] [address] * (ABNORMAL) CBC with auto differential (09/24/2024 5:03 PM MEDICAL RESEARCH TECH) [facility] WBC 6.3 3.8 - 9.9 K/cumm Hgb 11.7(L) 13.0 - 17.5 g/dL [facility] Hct 35.3(L) 38.9 - 50.3 % [facility] Plt 184 150 - 400 K/cumm [facility] MPV 11.3 9.1 - 12.3 fL [facility] RBC 3.76(L) 4.30 - 5.80 M/cumm [facility] MCV 93.9 81.3 - 96.4 fL [facility] MCH 31.1 27.1 - 33.3 pg [facility] MCHC 33.1 32.3 - 35.7 g/dL [facility] RDW CV 14.6 11.1 - 14.9 % [facility] RDW SD 50.4(H) 35.7 - 48.1 fL [facility] NRBC abs 0.00 0.00 - 0.01 K/cumm [facility] Blood 09/24/2024 5:03 PM MEDICAL RESEARCH TECH 09/24/2024 5:24 PM MEDICAL RESEARCH TECH Rehan Sheth MD LAB BLOOD ORDERABLES F inal Result Performing Organization Address City/State/[facility] Co de Phone Number [facility] One [facility] Department [place] [address] * (ABNORMAL) Basic metabolic panel (09/24/2024 5:03 PM MEDICAL RESEARCH TECH) Sodium 145 135 - 145 mmol/L Potassium, pl 3.7 3.3 - 4.9 mmol/L [facility] Chloride 107 97 - 110 mmol/L [facility] CO2 30 22 - 32 mmol/L [facility] Anion gap 8 2 - 15 mmol/L [facility] BUN 31(H) 6 - 25 mg/dL [facility] Creatinine 1.27 0.80 - 1.30 mg/dL [facility] Glucose 89 70 - 199 mg/dL [facility] Comment: Interpretive Data Fasting glucose >/= 126 [...] Calcium 9.0 8.5 - 10.3 mg/dL [facility] Blood 09/24/2024 5:03 PM MEDICAL RESEARCH TECH 09/24/2024 5:24 PM MEDICAL RESEARCH TECH Rehan Sheth MD LAB BLOOD ORDERABLES F inal Result [facility] One [facility] Department [place] [address] * ECG 12 lead (09/24/2024 4:01 PM MEDICAL RESEARCH TECH) Rehan Sheth MD ECG ORDERABLES Edited Result - Final * eGFR (09/14/2024 8:23 AM MEDICAL RESEARCH TECH) eGFR 63 >=60 mL/min/1. 73 m2 Comment: [...] last reviewed 2021. Blood 09/14/2024 8:23 AM MEDICAL RESEARCH TECH 09/14/2024 8:45 AM MEDICAL RESEARCH TECH Dalila Torres MD LAB BLOOD ORDERABLES Fi nal Result Performing Organization Address City/[facility]/ZIP Co de Phone Number [facility] Department [place] [address] * (ABNORMAL) Basic metabolic panel (09/14/2024 8:23 AM MEDICAL RESEARCH TECH) Pathologist [facility] Sodium 140 135 - 145 mmol/L Potassium, pl 4.0 3.3 - 4.9 mmol/L [facility] Chloride 104 97 - 110 mmol/L [facility] CO2 27 22 - 32 mmol/L [facility] Anion gap 9 2 - 15 mmol/L [facility] BUN 28(H) 6 - 25 mg/dL [facility] Creatinine 1.14 0.80 - 1.30 mg/dL [facility] Glucose 108 70 - 199 mg/dL [facility] Comment: Interpretive Data Fasting glucose >/= 126 [...] 2022. Calcium 8.8 8.5 - 10.3 mg/dL [facility] Blood 09/14/2024 8:23 AM MEDICAL RESEARCH TECH 09/14/2024 8:45 AM MEDICAL RESEARCH TECH us Dalila Torres MD LAB BLOOD ORDERABLES Fi nal Result Performing Organization Address [facility]/ZIP Co de Phone Number [facility] Department [place] [address] * (ABNORMAL) eGFR (09/13/2024 9:57 PM MEDICAL RESEARCH TECH) Pathologist [facility] eGFR 49(L) >=60 mL/min/1. 73 m2 [...] last reviewed 2021. Blood 09/13/2024 9:57 PM MEDICAL RESEARCH TECH 09/13/2024 10:27 PM MEDICAL RESEARCH TECH us Dalila Torres MD LAB BLOOD ORDERABLES Fi nal Result [facility] One [facility] Department [place] [address] * (ABNORMAL) CBC without differential (09/13/2024 9:57 PM MEDICAL RESEARCH TECH) WBC 6.4 3.8 - 9.9 K/cumm Hgb 11.1(L) 13.0 - 17.5 g/dL [facility] Hct 33.4(L) 38.9 - 50.3 % [facility] Plt 152 150 - 400 K/cumm [facility] MPV 11.2 9.1 - 12.3 fL [facility] RBC 3.53(L) 4.30 - 5.80 M/cumm [facility] MCV 94.6 81.3 - 96.4 fL [facility] MCH 31.4 27.1 - 33.3 pg [facility] MCHC 33.2 32.3 - 35.7 g/dL [facility] RDW CV 14.9 11.1 - 14.9 % [facility] RDW SD 52.3(H) 35.7 - 48.1 fL [facility] NRBC abs 0.00 0.00 - 0.01 K/cumm [facility] Blood 09/13/2024 9:57 PM MEDICAL RESEARCH TECH 09/13/2024 10:27 PM MEDICAL RESEARCH TECH Dalila Torres MD LAB BLOOD ORDERABLES Fi nal Result Performing Organization Address City/[facility]/ZIP Co de Phone Number [facility] Department [place] [address] * Magnesium (09/13/2024 9:57 PM MEDICAL RESEARCH TECH) [facility] Magnesium 2.1 1.4 - 2.5 mg/dL Blood 09/13/2024 9:57 PM MEDICAL RESEARCH TECH 09/13/2024 10:27 PM MEDICAL RESEARCH TECH Dalila Torres MD LAB BLOOD ORDERABLES Fi nal Result Performing Organization Address [facility] de Phone Number [facility] Department [place] [address] * (ABNORMAL) Basic metabolic panel (09/13/2024 9:57 PM MEDICAL RESEARCH TECH) [facility] Sodium 139 135 - 145 mmol/L Potassium, pl 3.7 3.3 - 4.9 mmol/L [facility] Chloride 102 97 - 110 mmol/L [facility] CO2 28 22 - 32 mmol/L [facility] Anion gap 9 2 - 15 mmol/L [facility] BUN 35(H) 6 - 25 mg/dL [facility] Creatinine 1.41(H) 0.80 - 1.30 mg/dL [facility] Glucose 126 70 - 199 mg/dL [facility] Comment: Interpretive Data Fasting glucose >/= 126 [...] Calcium 8.7 8.5 - 10.3 mg/dL [facility] Blood 09/13/2024 9:57 PM MEDICAL RESEARCH TECH 09/13/2024 10:27 PM MEDICAL RESEARCH TECH Dalila Torres MD LAB BLOOD ORDERABLES Fi nal Result Performing Organization Address City/[facility]/ZIP Co de Phone Number [facility] [address] [place] [address] * (ABNORMAL) eGFR (09/12/2024 8:13 PM MEDICAL RESEARCH TECH) eGFR 51(L) >=60 mL/min/1. 73 m2 Comment: [...] last reviewed 2021. Blood 09/12/2024 8:13 PM MEDICAL RESEARCH TECH 09/12/2024 8:55 PM MEDICAL RESEARCH TECH us Dalila Torres MD LAB BLOOD ORDERABLES Fi nal Result Performing Organization Address City/[facility]/ZIP Co de Phone Number [facility] Department of [address] [place] [address] * (ABNORMAL) CBC without differential (09/12/2024 8:13 PM MEDICAL RESEARCH TECH) [facility] WBC 7.4 3.8 - 9.9 K/cumm Hgb 11.0(L) 13.0 - 17.5 g/dL [facility] Hct 33.7(L) 38.9 - 50.3 % [facility] Plt 181 150 - 400 K/cumm [facility] MPV 11.1 9.1 - 12.3 fL [facility] RBC 3.60(L) 4.30 - 5.80 M/cumm [facility] MCV 93.6 81.3 - 96.4 fL [facility] MCH 30.6 27.1 - 33.3 pg [facility] MCHC 32.6 32.3 - 35.7 g/dL [facility] RDW CV 14.8 11.1 - 14.9 % [facility] RDW SD 51.2(H) 35.7 - 48.1 fL [facility] NRBC abs 0.00 0.00 - 0.01 K/cumm [facility] Blood 09/12/2024 8:13 PM MEDICAL RESEARCH TECH 09/12/2024 8:54 PM MEDICAL RESEARCH TECH Dalila Torres MD LAB BLOOD ORDERABLES Fi nal Result Performing Organization Address [facility] de Phone Number [facility] [place] [address] * Magnesium (09/12/2024 8:13 PM MEDICAL RESEARCH TECH) [facility] Magnesium 2.0 1.4 - 2.5 mg/dL Blood 09/12/2024 8:13 PM MEDICAL RESEARCH TECH 09/12/2024 8:55 PM MEDICAL RESEARCH TECH Dalila Torres MD LAB BLOOD ORDERABLES Fi nal Result Performing Organization Address [facility] Co de Phone Number [facility] Department [place] [address] * (ABNORMAL) Basic metabolic panel (09/12/2024 8:13 PM MEDICAL RESEARCH TECH) Sodium 141 135 - 145 mmol/L Potassium, pl 3.8 3.3 - 4.9 mmol/L [facility] Chloride 106 97 - 110 mmol/L [facility] CO2 26 22 - 32 mmol/L [facility] Anion gap 9 2 - 15 mmol/L [facility] BUN 31(H) 6 - 25 mg/dL [facility] Creatinine 1.37(H) 0.80 - 1.30 mg/dL [facility] Glucose 102 70 - 199 mg/dL [facility] Comment: Interpretive Data Fasting glucose >/= 126 [...] 2022. Calcium 8.4(L) 8.5 - 10.3 mg/dL [facility] Blood 09/12/2024 8:13 PM MEDICAL RESEARCH TECH 09/12/2024 8:55 PM MEDICAL RESEARCH TECH us Dalila Torres MD LAB BLOOD ORDERABLES nal Result [facility] One [facility] Department [place] [address] * Sodium, urine, random (09/12/2024 12:36 PM MEDICAL RESEARCH TECH) Sodium, ur 72 mmol/L Comment: Interpretive Data No reference range established. Current interpretive data was last revised 2018. Urine 09/12/2024 12:3 6 PM MEDICAL RESEARCH TECH 09/12/2024 4:22 PM MEDICAL RESEARCH TECH us Dalila Torres MD LAB URINE ORDERABLES Fi nal Result [facility] [address] [place] [address] * POCT glucose (09/12/2024 7:52 AM MEDICAL RESEARCH TECH) Glucose, POC 103 70 - 199 mg/dL Blood 09/12/2024 7:52 AM MEDICAL RESEARCH TECH 09/12/2024 7:52 AM MEDICAL RESEARCH TECH us Dalila Torres MD LAB POCT ORDERABLES - D EVICE Final Result Performing Organization Address [facility] Co de Phone Number [facility] [address] [place] [address] * POCT glucose (09/12/2024 6:21 AM MEDICAL RESEARCH TECH) Glucose, POC 92 70 - 199 mg/dL Blood 09/12/2024 6:21 AM MEDICAL RESEARCH TECH 09/12/2024 6:21 AM MEDICAL RESEARCH TECH us Dalila Torres MD LAB POCT ORDERABLES - D EVICE Final Result Performing Organization Address [facility] Co de Phone Number [facility] [address] [place] [address] * POCT glucose (09/12/2024 2:15 AM MEDICAL RESEARCH TECH) Glucose, POC 178 70 - 199 mg/dL Blood 09/12/2024 2:15 AM MEDICAL RESEARCH TECH 09/12/2024 2:15 AM MEDICAL RESEARCH TECH us Dalila Torres MD LAB POCT ORDERABLES - D EVICE Final Result Performing Organization Address City/[facility]/ZIP Co de Phone Number [facility] [place] [address] * (ABNORMAL) eGFR (09/11/2024 11:44 PM MEDICAL RESEARCH TECH) [facility] eGFR 54(L) >=60 mL/min/1. 73 m2 [...] reviewed 2021. Blood 09/11/2024 11:4 4 PM MEDICAL RESEARCH TECH 09/12/2024 12:17 AM MEDICAL RESEARCH TECH us Dalila Torres MD LAB BLOOD ORDERABLES Fi nal Result [facility] Department [place] [address] * (ABNORMAL) CBC without differential (09/11/2024 11:44 PM MEDICAL RESEARCH TECH) [facility] WBC 7.1 3.8 - 9.9 K/cumm Hgb 11.5(L) 13.0 - 17.5 g/dL [facility] Hct 34.7(L) 38.9 - 50.3 % [facility] Plt 172 150 - 400 K/cumm [facility] MPV 10.9 9.1 - 12.3 fL [facility] RBC 3.70(L) 4.30 - 5.80 M/cumm [facility] MCV 93.8 81.3 - 96.4 fL [facility] MCH 31.1 27.1 - 33.3 pg [facility] MCHC 33.1 32.3 - 35.7 g/dL [facility] RDW CV 14.9 11.1 - 14.9 % [facility] RDW SD 51.1(H) 35.7 - 48.1 fL [facility] NRBC abs 0.00 0.00 - 0.01 K/cumm [facility] Blood 09/11/2024 11:4 4 PM MEDICAL RESEARCH TECH 09/12/2024 12:17 AM MEDICAL RESEARCH TECH Dalila Torres MD LAB BLOOD ORDERABLES Fi nal Result Performing Organization Address City/[facility]/ZIP Co de Phone Number [facility] Department [place] [address] * Magnesium (09/11/2024 11:44 PM MEDICAL RESEARCH TECH) [facility] Magnesium 2.1 1.4 - 2.5 mg/dL Blood 09/11/2024 11:4 4 PM MEDICAL RESEARCH TECH 09/12/2024 12:17 AM MEDICAL RESEARCH TECH Dalila Torres MD LAB BLOOD ORDERABLES Fi nal Result Performing Organization Address City/[facility] Co de Phone Number [facility] Department [place] [address] * (ABNORMAL) Basic metabolic panel (09/11/2024 11:44 PM MEDICAL RESEARCH TECH) [facility] Sodium 142 135 - 145 mmol/L Potassium, pl 3.5 3.3 - 4.9 mmol/L [facility] Chloride 104 97 - 110 mmol/L [facility] CO2 27 22 - 32 mmol/L [facility] Anion gap 11 2 - 15 mmol/L [facility] BUN 30(H) 6 - 25 mg/dL [facility] Creatinine 1.30 0.80 - 1.30 mg/dL [facility] Glucose 74 70 - 199 mg/dL [facility] Comment: Interpretive Data Fasting glucose >/= 126 [...] 2022. Calcium 8.8 8.5 - 10.3 mg/dL [facility] Blood 09/11/2024 11:4 4 PM MEDICAL RESEARCH TECH 09/12/2024 12:17 AM MEDICAL RESEARCH TECH us Dalila Torres MD LAB BLOOD ORDERABLES Fi nal Result Performing Organization Address [facility] Co de Phone Number [facility] Department [place] [address] * POCT glucose (09/11/2024 8:14 PM MEDICAL RESEARCH TECH) Glucose, POC 142 70 - 199 mg/dL Blood 09/11/2024 8:14 PM MEDICAL RESEARCH TECH 09/11/2024 8:14 PM MEDICAL RESEARCH TECH us Dalila Torres MD LAB POCT ORDERABLES - D EVICE Final Result Performing Organization Address [facility] Co de Phone Number [facility] Department [place] [address] * POCT glucose (09/11/2024 5:23 PM MEDICAL RESEARCH TECH) Glucose, POC 91 70 - 199 mg/dL Blood 09/11/2024 5:23 PM MEDICAL RESEARCH TECH 09/11/2024 5:23 PM MEDICAL RESEARCH TECH us Ave Tai MD LAB POCT ORDERABLES - DEVICE Final Result Performing Organization Address [facility] Co de Phone Number [facility] [place] [address] * Troponin I high-sensitivity 4-hour (09/11/2024 3:10 PM MEDICAL RESEARCH TECH) Trop I hs 13 <=35 ng/L Comment: Interpretive Data For further hscTnI resources including the diagnostic algorithm and an aid in interpretation, copy and paste this link: https://bjhlab.testcatalog.org/show/hsTrop-[email or web address] Current Interpretive Data last revised 2020. Trop I hs delta -1 ng/L [facility] Trop I hs interp Insignificant CERNER BJ Blood 09/11/2024 3:10 PM MEDICAL RESEARCH TECH 09/11/2024 3:22 PM MEDICAL RESEARCH TECH us Ricki Ramirez MD LAB BLOOD ORDERABLES Final Result [facility] Department [place] [address] * POCUS Cardiac (09/11/2024 1:58 PM MEDICAL RESEARCH TECH) Anatomical Region Laterality Modality Other 09/11/2024 1:28 PM MEDICAL RESEARCH TECH Narrative 09/11/2024 3:02 PM MEDICAL RESEARCH TECH Performed by: Jose Martin Guevara Cardiac: Exam [...] Troponin I high-sensitivity 2-hour (09/11/2024 1:30 PM MEDICAL RESEARCH TECH) Trop I hs 14 <=35 ng/L Comment: Interpretive Data For further hscTnI resources including the diagnostic algorithm and an aid in interpretation, copy and paste this link: https://bjhlab.testcatalog.org/show/[email or web address] Current Interpretive Data last revised 2020. Trop I hs delta 0 ng/L [facility] Trop I hs interp Insignificant CERNER BJ H Blood 09/11/2024 1:30 PM MEDICAL RESEARCH TECH 09/11/2024 2:03 PM MEDICAL RESEARCH TECH us Ricki Ramirez MD LAB BLOOD ORDERABLES Final Result [facility] Department of Laboratories [place], [place] [id number] * (ABNORMAL) Pro B-type natriuretic peptide (09/11/2024 1:30 PM MEDICAL RESEARCH TECH) NT-proBNP 1,193(H) <=450 pg/mL Comment: Interpretive Comments: [...] Revised Date: 2018. Blood 09/11/2024 1:30 PM MEDICAL RESEARCH TECH 09/11/2024 2:04 PM MEDICAL RESEARCH TECH us [address] De Leon MD LAB BLOOD ORDERABLES Final Result Performing Organization Address City/State/[facility] Co ak Phone Number [facility] Department [place] [address] * XR Chest Pa Lateral 2 Views (09/11/2024 11:13 AM MEDICAL RESEARCH TECH) Anatomical Region Laterality Modality Body, Chest N/A Computed Radiogr aphy 09/11/2024 11:4 4 AM MEDICAL RESEARCH TECH Impressions 09/11/2024 11:44 AM MEDICAL RESEARCH TECH Comparison to 12/21/2023. 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 Heart and mediastinum are unchanged. There is no pneumothorax or pleural effusion. Small lung volumes with scarring in the left midlung that is similar to the prior CT. No new focal pulmonary opacity. Electronically signed by: Eric Balbuena M.D. Narrative 09/11/2024 11:44 AM MEDICAL RESEARCH TECH EXAMINATION: 2 view chest radiograph Procedure Note [...] (baseline, 2hr, 4hr, 6hr) (09/11/2024 11:03 AM MEDICAL RESEARCH TECH) Pathologist [facility] Trop I hs 14 <=35 ng/L Comment: Interpretive Data For further [facility] resources including the diagnostic algorithm and an aid in interpretation, copy and paste this link: [email or web address] Current Interpretive Data last revised 2020. Blood 09/11/2024 11:0 3 AM MEDICAL RESEARCH TECH 09/11/2024 11:20 AM MEDICAL RESEARCH TECH Joseph Lucas MD LAB BLOOD ORDERABLES Shanna l Result [facility] [place] [address] * (ABNORMAL) eGFR (09/11/2024 11:03 AM MEDICAL RESEARCH TECH) Pathologist [facility] eGFR 49(L) >=60 mL/min/1. 73 m2 [...] reviewed 2021. Blood 09/11/2024 11:0 3 AM MEDICAL RESEARCH TECH 09/11/2024 11:20 AM MEDICAL RESEARCH TECH us Joseph Lucas MD LAB BLOOD ORDERABLES Shanna orozco Result [facility] Department [place] [address] * Differential, auto (09/11/2024 11:03 AM MEDICAL RESEARCH TECH) Neutrophil abs 4.9 1.5 - 6.5 K/cumm Imm gran abs 0.0 0.0 - 0.1 K/cumm [facility] Lymphocyte abs 1.4 0.8 - 3.3 K/cumm [facility] Monocyte abs 0.7 0.2 - 0.8 K/cumm [facility] Eosinophil abs 0.1 0.0 - 0.5 K/cumm [facility] Basophil abs 0.0 0.0 - 0.1 K/cumm [facility] Neutrophil pct 67.9 % [facility] Comment: Interpretive Data Percent cell count reference ranges are not reported, since discordance with absolute values may lead to misinterpretation of CBC data. Current Interpretive Data was last revised on 2017. Imm gran pct 0.4 % [facility] Comment: Interpretive Data Percent cell count reference ranges are not reported, since discordance with absolute values may lead to misinterpretation of CBC data. Current Interpretive Data was last revised on 2017. Lymphocyte pct 19.8 % [facility] Comment: Interpretive Data Percent cell count reference ranges are not reported, since discordance with absolute values may lead to misinterpretation of CBC data. Current Interpretive Data was last revised on 2017. Monocyte pct 9.6 % [facility] Comment: Interpretive Data Percent cell count reference ranges are not reported, since discordance with absolute values may lead to misinterpretation of CBC data. Current Interpretive Data was last revised on 2017. Eosinophil pct 1.9 % [facility] Comment: Interpretive Data Percent cell count reference ranges are not reported, since discordance with absolute values may lead to misinterpretation of CBC data. Current Interpretive Data was last revised on 2017. Basophil pct 0.4 % [facility] Comment: Interpretive Data Percent cell count reference ranges are not reported, since discordance with absolute values may lead to misinterpretation of CBC data. Current Interpretive Data was last revised on 2017. Blood 09/11/2024 11:0 3 AM MEDICAL RESEARCH TECH 09/11/2024 11:20 AM MEDICAL RESEARCH TECH us Joseph Lucas MD LAB BLOOD ORDERABLES Shanna orozco Result [facility] Department [place] [address] * (ABNORMAL) CBC with auto differential (09/11/2024 11:03 AM MEDICAL RESEARCH TECH) WBC 7.3 3.8 - 9.9 K/cumm Hgb 11.0(L) 13.0 - 17.5 g/dL [facility] Hct 33.2(L) 38.9 - 50.3 % [facility] Plt 175 150 - 400 K/cumm [facility] MPV 10.6 9.1 - 12.3 fL [facility] RBC 3.51(L) 4.30 - 5.80 M/cumm [facility] MCV 94.6 81.3 - 96.4 fL [facility] MCH 31.3 27.1 - 33.3 pg [facility] MCHC 33.1 32.3 - 35.7 g/dL [facility] RDW CV 14.9 11.1 - 14.9 % [facility] RDW SD 51.4(H) 35.7 - 48.1 fL [facility] NRBC abs 0.00 0.00 - 0.01 K/cumm [facility] Blood (Blood, Venous) 09/11/2024 11:03 AM MEDICAL RESEARCH TECH 09/11/2024 11:20 AM MEDICAL RESEARCH TECH us Joseph Lucas MD LAB BLOOD ORDERABLES Shanna l Result [facility] Department [place] [address] * (ABNORMAL) Comprehensive metabolic panel (09/11/2024 11:03 AM MEDICAL RESEARCH TECH) Sodium 142 135 - 145 mmol/L Potassium, pl 3.6 3.3 - 4.9 mmol/L [facility] Chloride 102 97 - 110 mmol/L [facility] CO2 28 22 - 32 mmol/L [facility] Anion gap 12 2 - 15 mmol/L [facility] BUN 33(H) 6 - 25 mg/dL [facility] Creatinine 1.40(H) 0.80 - 1.30 mg/dL [facility] Glucose 114 70 - 199 mg/dL [facility] Comment: Interpretive Data Fasting glucose >/= 126 [...] 2022. Calcium 8.9 8.5 - 10.3 mg/dL [facility] Bilirubin, total 0.4 0.1 - 1.2 mg/dL [facility] Protein, pl 6.9 6.5 - 8.5 g/dL [facility] Albumin 3.9 3.5 - 5.0 g/dL [facility] Alk phos 43 40 - 130 Units/L [facility] ALT 13 7 - 55 Units/L [facility] AST 24 10 - 50 Units/L [facility] Blood 09/11/2024 11:0 3 AM MEDICAL RESEARCH TECH 09/11/2024 11:20 AM MEDICAL RESEARCH TECH us Joseph Lucas MD LAB BLOOD ORDERABLES Shanna l Result [facility] Department [place] [address] * ECG 12-LEAD (09/11/2024 10:52 AM MEDICAL RESEARCH TECH) Narrative MUSE BJ - 09/11/2024 10:52 AM MEDICAL RESEARCH TECH Hermilo Linares MD 09/11/2024 10:55 AM ECG [...] MD ECG ORDERABLES Final Res ult [facility] * POCT glucose (09/11/2024 10:48 AM MEDICAL RESEARCH TECH) Glucose, POC 112 70 - 199 mg/dL Blood 09/11/2024 10:4 8 AM MEDICAL RESEARCH TECH 09/11/2024 10:48 AM MEDICAL RESEARCH TECH us Notinfile Unknown LAB POCT ORDERABLES - DEVICE F inal Result Performing Organization Address City/[facility]/ZIP Co de Phone Number [facility] Department [place] [address] * (ABNORMAL) eGFR (09/10/2024 12:26 PM MEDICAL RESEARCH TECH) eGFR 54(L) >=60 mL/min/1. 73 m2 Comment: [...] reviewed 2021. Blood 09/10/2024 12:2 6 PM MEDICAL RESEARCH TECH 09/10/2024 1:37 PM MEDICAL RESEARCH TECH Rehan Sheth MD LAB BLOOD ORDERABLES F inal Result Performing Organization Address City/[facility]/ZIP Co de Phone Number [facility] Department [place] [address] * (ABNORMAL) Pro B-type natriuretic peptide (09/10/2024 12:26 PM MEDICAL RESEARCH TECH) NT-proBNP 2,273(H) <=450 pg/mL Comment: Interpretive Comments: [...] Date: 2018. Blood 09/10/2024 12:2 6 PM MEDICAL RESEARCH TECH 09/10/2024 1:32 PM MEDICAL RESEARCH TECH Rehan Sheth MD LAB BLOOD ORDERABLES F inal Result [facility] Department [place] [address] * (ABNORMAL) Basic metabolic panel (09/10/2024 12:26 PM MEDICAL RESEARCH TECH) Sodium 142 135 - 145 mmol/L Potassium, pl 3.9 3.3 - 4.9 mmol/L [facility] Chloride 104 97 - 110 mmol/L [facility] CO2 28 22 - 32 mmol/L [facility] Anion gap 10 2 - 15 mmol/L [facility] BUN 31(H) 6 - 25 mg/dL [facility] Creatinine 1.29 0.80 - 1.30 mg/dL [facility] Glucose 126 70 - 199 mg/dL [facility] Comment: Interpretive Data Fasting glucose >/= 126 [...] 2022. Calcium 9.2 8.5 - 10.3 mg/dL [facility] Blood 09/10/2024 12:2 6 PM MEDICAL RESEARCH TECH 09/10/2024 1:32 PM MEDICAL RESEARCH TECH Rehan Sheth MD LAB BLOOD ORDERABLES F inal Result Performing Organization Address [facility] Co de Phone Number [facility] Department [place] [address] * ECG 12 lead (09/10/2024 11:33 AM MEDICAL RESEARCH TECH) Rehan Sheth MD ECG ORDERABLES Edited Result - Final * XR Scoliosis Ap and Lateral (08/26/2024 11:42 AM MEDICAL RESEARCH TECH) Anatomical Region Laterality Modality Spine N/A Computed Radiogr aphy 08/26/2024 12:3 0 PM MEDICAL RESEARCH TECH Impressions 08/26/2024 12:30 PM MEDICAL RESEARCH TECH 1. Mild thoracolumbar curvature with leftward coronal and anterior sagittal imbalance Electronically signed by: Mehran Sotomayor MD [facility] 08/26/2024 12:30 PM MEDICAL RESEARCH TECH EXAMINATION: XR SCOLIOSIS AP AND LATERAL HISTORY: [...] (ABNORMAL) Basic metabolic panel (07/30/2024 12:37 PM MEDICAL RESEARCH TECH) Glucose 143(H) 65 - 99 mg/dL Melodie HaydenMin Villan[facility] Comment: Fasting reference interval For someone without known diabetes, a glucose value >125 mg/dL indicates that they may have diabetes and this should be confirmed with a follow-up test. BUN 22 7 - 25 mg/dL [facility] Hayden[facility] Creatinine 1.04 0.70 - 1.22 mg/dL [facility]den[facility] eGFR 71 > OR = 60 mL/min/1.7 3m2 [facility]odie HaydenMin [facility] BUN/creat ratio SEE NOTE: 6 - 22 (calc) Melodie JackelynMin [facility]anueva Comment: Not Reported: BUN and Creatinine are within reference range. Sodium 141 135 - 146 mmol/L Melodie PicLyfMin [facility] Potassium, pl 4.2 3.5 - 5.3 mmol/L Melodie Jackelyn-Min [facility] Chloride 103 98 - 110 mmol/L Melodie JackelynMin [facility] CO2 30 20 - 32 mmol/L Melodie PicLyfMin [facility] Calcium 8.9 8.6 - 10.3 mg/dL Melodie HaydenMni Villanueva Blood 07/30/2024 12:3 7 PM MEDICAL RESEARCH TECH 07/30/2024 12:38 PM MEDICAL RESEARCH TECH us Rehan Sheth MD LAB BLOOD ORDERABLES F inal Result [facility] [address] [place] [address] * (ABNORMAL) Basic metabolic panel (07/16/2024 11:34 AM MEDICAL RESEARCH TECH) Pathologist [facility] Glucose 115 65 - 139 mg/dL Melodie JackelynMin Villanueva Comment: Non-fasting reference interval BUN 29(H) 7 - 25 mg/dL Melodie JackelynMin [facility] Creatinine 1.23(H) 0.70 - 1.22 mg/dL Melodie JackelynMin [facility] eGFR 58(L) > OR = 60 mL/min/1.7 3m2 Melodie Savi [facility] BUN/creat ratio 24(H) 6 - 22 (calc) [facility]odie JackelynMin [facility] Sodium 138 135 - 146 mmol/L Melodie PicLyfMin [facility] Potassium, pl 4.4 3.5 - 5.3 mmol/L [facility]odie JackelynMin [facility] Chloride 101 98 - 110 mmol/L [facility] CO2 27 20 - 32 mmol/L [facility] Calcium 8.7 8.6 - 10.3 mg/dL [facility] Blood 07/16/2024 11:3 4 AM MEDICAL RESEARCH TECH 07/16/2024 11:34 AM MEDICAL RESEARCH TECH Narrative [facility] - 07/16/2024 10:30 PM MEDICAL RESEARCH TECH INSURANCE VERIFIED FASTING:NO FASTING: NO Rehan Sheth MD LAB BLOOD ORDERABLES F inal Result [facility] [address] [place] [address] * (ABNORMAL) Hemoglobin A1c (06/07/2024 8:38 AM CDT) Hgb A1C 6.1(H) 4.0 - 5.6 % Estimated Average Glucose 128 mg/dL [facility] Comment: The ADA recommends reporting an estimated Average Glucose (eAG) with all Hemoglobin A1c results using the equation derived from a study of 507 normal and diabetic adults. Minority populations were underrepresented and children were not included. (Diabetes Care 31:5954-1713, 2008). The eAG is not equivalent to a fasting glucose. Blood 06/07/2024 8:38 AM CDT 06/07/2024 9:07 AM CDT Joe Hood MD LAB BLOOD ORDER MAITE Final Result [facility] [address] [facility] [place] [address] * Lipid panel (06/07/2024 8:38 AM CDT) [...] LAB BLOOD ORDER MAITE Final Result [facility] [address] [facility] [place] [address] * DIABETES FOOT EXAM (11/05/2020) Diabetic Foot Exam Normal Historical Provider HEALTH MAINTENANCE Final Result * DIABETES EYE EXAM (05/05/2019) Diabetic Eye Exam Normal Historical Glenda COMBS HEALTH MAINTENANCE Final Result from Last 3 Months or Most Recently Relevant to Health Maintenance Insurance [employer] CHOICE MEDICARE PPO MEDICARE SOLUTIONS MEDICARE SOLUTIONS Advance Directives For more information, please contact: [phone] Documents on File Type Date Recorded Patient Theatre Manager Expl anation ADVANCE DIRECTIVE 12/27/2023 10:41 PM Jorge Pryor P OWER OF PAD HAND-MEDICAL ADVANCE DIRECTIVE 12/26/2023 10:38 AM Yazmin Medina POWER OF PAD HAND-FINANCIAL * Full Code (Latest Code Status on [...] Communication Jorge Pryor Spouse Health Care Agent [email or web address] Medina Daughter First Alternate Health Care Agent [email or web address] Care Teams Seasoning Sprayer Relationship Specialty Start Date End Date Barry Ralph MD PCP - General Family Practice 05/22/24 Rehan Sheth MD [address] [address] Consulting Physician Cardiology 09/09/24
--- OUTSIDE RECORDS SUMMARY | 2024-10-14 18:43 | XMS_ITS | Clinical Summary ---
Author Organization [facility] Address [address] [place] [address] Care Team Providers Care Farm Equipment Maintenance Supervisor Name Role Phone Robin Nelson MD Primary Care Provider [phone] Allergies No known active allergies Medications warfarin [...] Active METFORMIN 1000 MG tabletIndications :Diabetes mellitus ([facility]) TAKE 1 TABLET BY MOUTH TWICE A DAY 60 tablet 2 1 Active PIOGLITAZONE 15 MG tabletIndications :Type 2 diabetes mellitus with stage 3a chronic kidney disease, without long-term current use of insulin ([facility]) TAKE 1 TABLET BY MOUTH [...] Date COPD (chronic obstructive pu lmonary disease) ([facility]) 02/02/2020 Diabetes mellitus ([facility]) Hypertension Immunizations Name Administration Dates Next Due Flublok (Quadrivalent) 06/02/2020 Fluzone High Dose - >Age 65 (Prefilled Syringe) 07/02/2018 PFIZER COVID-19 (ORIGINAL FO RMULATION, PURPLE CAP) mRNA, LNP-S, PF, 30 MCG/0.3 ML DOSE 10/23/2020,09/25/2020 Tdap (Generic) 03/08/2019,03/19/2016 Zoster (Zostavax) 19525 Unt/0.65Ml 03/19/2016 Social History Tobacco Use Types [...] Comments Blood Pressure 155/71 09/19/2021 12:53 PM BOX CAR WASHER Pulse 68 09/19/2021 12:53 PM BOX CAR WASHER Temperature 35.8 C (96.5 F) 09/19/2021 11:03 AM BOX CAR WASHER Respiratory Rate 20 09/19/2021 11:03 AM BOX CAR WASHER Oxygen Saturation 95% 09/19/2021 12:53 PM BOX CAR WASHER Inhaled Oxygen Concentration - - Weight 113.4 kg (250 lb) 09/15/2021 2:17 PM BOX CAR WASHER Height 182.9 cm (6') 09/15/2021 2:17 PM BOX CAR WASHER Body Mass Index 33.91 09/15/2021 2:17 PM BOX CAR WASHER Plan of Treatment Health Maintenance Due Date [...] this topic Medical Devices Implanted Type Area Plate Shear Operator Device Identifier Shelf Expiration Date Model / Serial / Lot Intraocular Lens Implanted:Qty: 1 on 09/19/2021 by Daren Ralph MD at [facility] Left: Eye 04/14/2023 [id number] / [id number] / Procedures Procedure Name Priority Date/Time Associated Diagnosis Comments HEMOGLOBIN, GLYCOSYLATED Routine 07/05/2020 Type 2 diabetes mellitus with stage 3a chronic kidney disease, without long-term current use of insulin ([facility]) LIPID PANEL Routine 02/02/2020 11:47 AM CDT Dyslipidemia from Last 3 Months or Most Recently Relevant to Health Maintenance Results * HEMOGLOBIN, GLYCOSYLATED (07/05/2020) HGB A1C 8.2 % MG-CONNIEXLER JANETE ([address] [address] [facility] [place] 07/05/2020 Collette Stockton MD LABORATORY Final Result FRANCISCO AARON ([address] [address] [facility] [place] [address] [place] [address], * (ABNORMAL) LIPID PANEL (02/02/2020 11:47 AM CDT) Pathologist [facility] CHOLESTEROL 123 <200 mg/dL [facility] HDL 37(L) > OR = 40 mg/dL [facility] [employer] [facility] TRIGLYCERIDES 237(H) <150 mg/dL [facility] [employer] [facility] Comment: If a non-fasting specimen was collected, consider repeat triglyceride testing on a fasting specimen if clinically indicated. Amrit et al. J. of Clin. Lipidol. 2015;9:129-169. LDL (CALCULATED) 56 mg/dL (calc) [facility] Comment: Reference range: <100 Desirable range <100 mg/dL for primary prevention; <70 mg/dL for patients with CHD or diabetic patients with > or = 2 CHD risk factors. LDL-C is now calculated using the Herber-Chapa calculation, which is a validated novel method providing better accuracy than the Friedewald equation in the estimation of LDL-C. Herber SS et al. SADE. 2013;310(19): 8116-1582 (http://education.Sandvine.Replicon/faq/RIO221) CHOL/HDL RATIO 3.3 <5.0 (calc) [facility] NON HDL CHOLESTEROL 86 <130 mg/dL (calc) [facility] [employer] [facility] Comment: For patients with diabetes plus 1 major ASCVD risk factor, treating to a non-HDL-C goal of <100 mg/dL (LDL-C of <70 mg/dL) is considered a therapeutic option. 02/02/2020 11:4 7 AM CDT 02/03/2020 3:01 AM CDT Narrative Resulting Agency Comment Performing Organization Information: Site ID: [id number] Name: [employer] Address: [address] [address] Director: Siva Roman D.O., MPH us Collette Stockton MD LABORATORY Final Result [facility] [address] [address], [place] from Last 3 Months or Most Recently Relevant to Health Maintenance Insurance [facility] Care Teams Farm Equipment Maintenance Supervisor Relationship Specialty Start Date End Date Robin Nelson MD [address] [place] [address] PCP - General INTERNAL MEDICINE 08/10/21
--- OUTSIDE RECORDS SUMMARY | 2024-10-14 18:43 | XMS_ITS | Encounter Summary ---
Author Organization [facility] Address [address] [place] [address] Phone Care Team Providers Care Sap Gatherer Name Role Phone Barry Ralph MD Primary Care Provider [phone] Rehan Sheth MD Unavailable [phone] Sangita Moore RN Unavailable [phone] Encounter Details Date Type Department Care Team (Late st Contact Info) Description 10/06/2024 Results Follow-Up [facility] Cardiology [address] [facility] Advanced Medicine 8th [place] [address] [place] [address] Amanda Chatman RN Social History Tobacco Use Types Packs/Day Years Used Date Smoking Tobacco: Never Smokeless Tobacco: Never [facility] Utilities Answer Date Recorded In the past 12 months has [employer] electric, gas, oil, or water company threatened [...] How often do you attend chur or alevism services? More than 4 times per year [...] Date Recorded PHQ-2 Total Score 0 [facility]ational [facility] Questionnaire Answer Date [...] any time in the past 12 m [facility], were you homeless or living in a mcc (including now)? No 09/15/2024 Personal Safety Answer Date Recorded Have you ever been in or are you currently in a harmful physical or emotional relationship or is someone making you feel afraid or unsafe? Denies 10/06/2024 Sex and Gender Information Value Date Recorded Sex Assigned at Not on file Legal Sex Male 8:23 PM [facility] Gender Identity Not on file Sexual Orientation Not on file documented as of this encounter Plan of Treatment Not on file documented as of this encounter Goals Goal Patient Goal Type Associated Problems Recent Progress Patient-Stated? Author CCM Chronic Pain Care Plan Chronic Care Management Improving( 10:49 AM [facility]) No Nenita Santiago, RN Note: Problem: Chronic Pain Goals: 1. Minimize further functional decline 2. Maximize quality of life 3. Control pain Strategies: - Activity/exercise program recommendation - Conservative stepwise pain medicine strategy with multi-disciplinary approach - Recommend healthy lifestyle strategies and compensatory methods as needed documented as of this encounter Visit Diagnoses Not on filedocumented in this encounter Care Teams Sap Gatherer Relationship Specialty Start Date End Date Barry Ralph MD PCP - General Family Practice 05/22/24 Rehan Sheth MD [address] [facility] [address] [place] [address] Consulting Physician Cardiology 09/09/24 Sangita Moore, RN [address] [facility] [address] [place] [address] SHOP Outpatient Insole Buffer 09/15/24 10/13/24 documented as of this encounter
--- OUTSIDE RECORDS SUMMARY | 2024-10-14 18:43 | XMS_ITS | Clinical Summary ---
Author Organization [facility] Address [address] [place] [address] Care Team Providers Care Neuroscience Director Na Name Role Phone Barry Ralph MD Primary Care Provider + [phone] Rehan Sheth MD Unavailable [phone] Allergies No known active allergies Medications albuterol HFA (PROVENTIL HFA,VENTOLIN HFA,PROAIR HFA) 90 mcg/actuation inhaler Inhale 2 puffs as needed for shortness of breath 09/17/19 15 Active True Metrix Glucose Meter kit USE DIRECTED 1 kit 08/17/20 21 Active lancets (OneTouch Delica Plus Lancet) 30 gauge miscIndications:Typ e 2 diabetes mellitus with hyperosmolarity without coma, without long-term current use of insulin ([facility]) ([facility]) Use to check blood sugar 3x daily 300 each 2 02/01/20 22 Active blood glucose diagnostic (True Metrix Glucose Test Strip) stripIndications:Ty pe 2 diabetes mellitus with hyperosmolarity without coma, without long-term current use of insulin (CMS/[facility]) ([facility]) TEST BLOOD SUGAR EVERY DAY 100 strip [...] mouth daily 15 tablet 11 06/17/20 24 025 Active simvastatin (ZOCOR) 20 mg tablet [...] type 09/11/2024 Coronary artery disease invo lving [place] coronary artery of [place] heart with angina pectoris 09/10/2024 Internal carotid artery stenosis, right 06/12/20 Chronic heart failure with p reserved ejection fraction (CMS/HCC) 06/12/2024 Stage 2 chronic kidney disease 06/12/2024 Thrombocytopenia 06/12/2024 Bilateral leg weakness 06/06/2024 NSTEMI (non-ST elevated myocardial infarction) ( [facility]/HCC) 05/20/2024 Assessment & Plan (05/21/2024 11:10 AM CDT): Repeat C on 05/20/2024 showed: 60-70% lesion to mid LAD (with a positive IFR of 0.78) and a 90% lesion lesion to ostial circ; RCA with a known SR ACCOUNT EXECUTIVE (angiography not performed). -s/p Successful PCI to [...] Plan (05/20/2024 11:34 AM CDT): Went to [facility] 05/17 for SOB, new 2L O2 requirement - OSH workup: Trp 1.95>5.1>10, proBNP 6800, CXR w/ mild interstitial edema - OSH LHC 9/30 w/ L main widely patent, LAD proximal body 80% stenosis, LAD stent w/ moderate ISR, L cx w/ 95% stenosis in proximal body, OM branches w/ mild disease, RCA is SR ACCOUNT EXECUTIVE in mid body w/ L to R collaterals - cath films uploaded - OSH TTE reportedly w/ EF 50%, AV prosthesis w/o abnormal gradients - trop here 7,6561, repeat pending - currently denies chest pain or pressure, sob improving - PCI today - continue heparin drip - continue asa, coreg, atorvastatin 80mg - telemetry Assessment & Plan (05/20/2024 1:02 AM CDT): Went to [facility] 05/17 for SOB, new 2L O2 requirement - OSH workup: Trp 1.95>5.1>10, proBNP 6800, CXR w/ mild interstitial edema - OSH LHC 9/30 w/ L main widely patent, LAD proximal body 80% stenosis, LAD stent w/ moderate ISR, L cx w/ 95% stenosis in proximal body, OM branches w/ mild disease, RCA is SR ACCOUNT EXECUTIVE in mid body w/ L to R [...] Assessment & Plan (05/21/2024 10:58 AM CDT): [facility] 05/17 for SOB, on 3.5L [...] Assessment & Plan (05/20/2024 11:50 AM CDT): [facility] 05/17 for SOB, on 3.5L [...] Assessment & Plan (05/20/2024 1:00 AM CDT): [facility] 05/17 for SOB, on 2L [...] salt diet Acute on chronic heart failure ([facility]) 024 Assessment & Plan (05/21/2024 10:56 AM [...] benefi Assessment & Plan (07/04/2024 1:02 PM JOINERS SUPERVISOR): He may just be symptomatic from his [...] Assessment & Plan (03/17/2024 1:48 PM CDT): 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 Still [...] stenosis. Assessment & Plan (07/04/2024 1:03 PM JOINERS SUPERVISOR): Failed LMBB. 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 Sheth helps [...] quiescent Assessment & Plan (09/04/2018 10:33 AM JOINERS SUPERVISOR): COPD is unchanged. COPD information handout given. [...] to PT - wants to go to [facility]. Trial robaxin. Flexeril on med list [...] no Assessment & Plan (10/01/2019 10:35 AM JOINERS SUPERVISOR): S2 makes a wonderfully crisp snap w/o any regurge Gastroesophageal reflux disease 09/17/2014 Tussive syncope 08/25/2014 Syncope and collapse 08/21/2014 Syncope 08/21/2014 Type 2 diabetes mellitus 07/10/2014 Overview (05/13/2021): Was on levemir but stopped 2015 then on trulicity so on metformin ALONE We had better control w/ Katiediance -since he has been w/ Dr Stockton [phone] has been on Actose and metformin- Off [...] (12/20/2023 9:28 AM CDT): Chronic. Maintains on glipizideAlexandreunjaro at home with plan to hold these [...] heart- Assessment & Plan (10/01/2019 10:30 AM JOINERS SUPERVISOR): His A1C has crept to 7.5% Admits [...] covered Assessment & Plan (09/04/2018 10:42 AM JOINERS SUPERVISOR): Diabetes is worsening. Continue current treatment regimen. [...] 07/09/2014 Assessment & Plan (10/01/2019 10:32 AM JOINERS SUPERVISOR): He gets along nicely w/ a low [...] Care Team Description 10/14/2024 SHOP/CHAP Subsequent Outreach [facility] [address] [place] [address] Sangita Moore, RN 10/10/2024 SHOP/CHAP Subsequent Outreach [facility] [address] [place] [address] Sangita Moore, RN 10/08/2024 Documentation [facility] [address] [place] [address] Yvonne Tanner, RN 10/08/2024 SHOP/CHAP Subsequent Outreach [facility] [address] [place] [address] Sangita Moore, RN 10/07/2024 Telephone [facility] Cardiology [address] [place] [address] 8th [place] [address] [place] [phone] Rehan Sheth MD shortness of breath/anxiety 10/07/2024 SHOP/CHAP Subsequent Outreach [facility] [address] [place] [phone] Sangita Moore RN 10/06/2024 2:18 PM JOINERS SUPERVISOR - 10/06/2024 7:30 PM [facility] Emergency [facility] Emergency Department [address] [place] [phone] Aneta Castellanos MD Altered mental status, unspecified altered mental status type (Primary Dx) Discharge Disposition: Discharge to home or self care 10/06/2024 SHOP/CHAP Subsequent Outreach [facility]NAGEMENT [address] [place] [phone] Sangita Moore RN 10/06/2024 Results Follow-Up [facility] Cardiology [address] [place] [address] Advanced Medicine 8th [place] [address] [place] [address] Amanda Chatman RN 10/06/2024 Telephone [facility] Cardiology [address] [place] [address] Advanced [facility] 8th [place] [address] [place] [address] Rehan Sheth MD [facility] 10/03/2024 10:45 AM [facility] - 10/03/2024 12:00 PM [facility] Surgery [facility] [address] [place] [phone] Nigel Holman MD Right Left Heart Catheterization with Coronary Angiography with or without Left Ventriculography [id number] 10/03/2024 7:50 AM [facility] - 10/03/2024 5:48 PM [facility] Hospital Encounter [facility] [address] [place] [phone] Nigel Holman MD Chest pain, unspecified type (Primary Dx); Chronic systolic heart failure (CMS/HCC) (HCC); Coronary artery disease involving [place] coronary artery of [place] heart with angina pectoris (HCC); Acute on chronic heart failure, unspecified heart failure type (HCC); Paroxysmal atrial fibrillation (CMS/HCC) (HCC); History of aortic valve replacement Discharge Disposition: Discharge to home or self care 09/30/2024 SHOP/CHAP Subsequent Outreach [facility] [address] [place] [address] Sangita Moore, RN 09/26/2024 SHOP/CHAP Subsequent Outreach [facility] [address] [place] [address] Sangita Moore, RN 09/25/2024 Orders Only [facility] Cardiology [address] [place] [address] Advanced [facility] 8th [place] [address] [place] [address] Naila Cortez RN High risk medications (not anticoagulants) long-term use (Primary Dx) 09/25/2024 Telephone [facility] Cardiology [address] [place] [address] [place] [address] Rehan Sheth MD 09/24/2024 7:40 PM JOINERS SUPERVISOR Lab [facility] ([facility]) [address] [place] [phone] Chronic heart failure with preserved ejection fraction (CMS/HCC) (HCC) 09/24/2024 3:15 PM JOINERS SUPERVISOR Office Visit [facility] Cardiology [address] [place] [address] [place] [address] Rehan Sheth MD Chronic heart failure with preserved ejection fraction (CMS/HCC) (HCC) (Primary Dx); History of aortic valve replacement; Benign essential hypertension; Paroxysmal atrial fibrillation (CMS/HCC) (HCC) 09/24/2024 Telephone [facility] Cardiology [address] [place] [address] [place] [address] Rehan Sheth MD cardiac cath 09/23/2024 SHOP/CHAP Subsequent Outreach [facility] [address] [place] [address] Sangita Moore, RN 09/17/2024 SHOP/CHAP Subsequent Outreach [facility] [address] [place] [address] Sangita Moore, RN 09/15/2024 SHOP/CHAP Initial Outreach [facility] [address] [place] [address] Sangita Moore RN 09/15/2024 Telephone [facility] Cardiology [address] [place] [address] Advanced [facility] 8th [place] [address] [place] [address] Rehan Sheth MD f/u orders 09/15/2024 SHOP/CHAP Initial Eligibility Review [facility] [address] [place] [address] Sangita Moore RN 09/11/2024 12:49 PM JOINERS SUPERVISOR - 09/14/2024 12:22 PM JOINERS SUPERVISOR Hospital [address] [phone] Joseph Lucas MD [place], MD Melissa King, Dalila Jean MD Chest pain, unspecified type (Primary Dx) Discharge Disposition: Discharge to home or self care 09/11/2024 Documentation [facility] Cardiology [address] [place] [address] Advanced [facility] 8th [place] [address] [place] [address] Rehan Sheth MD 09/11/[address] Advanced [address] [place] [address] [place] [address] Rehan Sheth MD Symptoms update 09/10/2024 12:25 PM JOINERS SUPERVISOR Lab [facility] ([facility]) [address] [place] [phone] Chronic heart failure with preserved ejection fraction (CMS/HCC) (HCC) 09/10/2024 11:15 AM JOINERS SUPERVISOR Office Visit [facility] Cardiology [address] [place] [address] Advanced [facility] 8th [place] [address] [place] [address] Rehan Sheth MD Chronic heart failure with preserved ejection fraction (CMS/HCC) (HCC) (Primary Dx); Coronary artery disease involving [place] coronary artery of [place] heart with angina pectoris (HCC) 09/10/2024 Telephone [facility] Cardiology [address] [facility] 8th [place] [address] [place] [address] Rehan Sheth MD Cardiac Clearance request 09/10/2024 Telephone [facility] Cardiology [address] [facility] 8th [place] [address] [place] [phone] Rehan Sheth MD Chest symptoms 09/09/2024 Telephone [place] [address] [facility] 8th [place] [address] [place] [phone] Rehan Sheth MD Samples/and report of ER eval 09/01/2024 Telephone [facility] Neurosurgery [address] [place] [address] Office [facility] [address] [place] [address] Clayton Robertson DO 08/26/2024 12:30 PM JOINERS SUPERVISOR Office Visit [facility] Neurosurgery [address] [place] [address] Office [facility] [address] [place] [address] Clayton Robertson DO 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) 08/26/2024 11:32 AM JOINERS SUPERVISOR - 08/26/2024 11:59 PM JOINERS SUPERVISOR Hospital Encounter [facility] [address] [place] [address] [address] [place] [address] Lumbar spondylosis; Chronic bilateral low back pain, unspecified whether sciatica present Discharge Disposition: Discharge to home or self care 08/06/2024 Orders Only [facility] Neurosurgery [address] [place] [address] Medical Office [facility] [address] [place] [address] Clayton Robertson DO Lumbar spondylosis (Primary Dx); [...] Coronary Angiography with or without Left Ventriculography [id number]; Surgeon: Nigel Holman MD; Location: [facility] CARDIAC SURGICAL CONSULTANT; Service: Cardiovascular; Laterality: N/A; Cp, SOB, CAD Cath with PCI [facility] 05/21/[address] Pedroza. On glucatrol, [...] Cancer Father Diabetes Father Heart attack Father [place] @ 44 y/o Heart disease Father Family history of cardiac disorder - (Added by TW Conv) Cancer Mother Family history of malignant neoplasm - (Added by TW Conv) Diabetes Mother Relation Name Status Comments Father Mother Social History Tobacco Use Types Packs/Day Years Used Date Smoking Tobacco: Never Smokeless Tobacco: Never Tobacco Cessation:Counseling Given: Not Answered [facility] Utilities Answer [...] often do you attend chur ch or buddhism services? More than 4 times per year [...] Date Recorded PHQ-2 Total Score 0 09/12/2024 [facility] [place] of Occupat ional Health - Occupational Stress [...] place to sleep or slept in a long-term (including now)? No 01/01/2024 Housing Stability Vital Sign Answer Deangelo e Recorded In the last 12 months, was t here a time when you were not able to pay the mortgage or rent on time? No 09/15/2024 In the past 12 months, how m any times have you moved where you were living? 1 09/15/2024 At any time in the past 12 m [facility], were you homeless or living in a long-term (including now)? No 09/15/2024 Personal Safety Answer Date Recorded Have you ever been in or are you currently in a harmful physical or emotional relationship or is someone making you feel afraid or unsafe? Denies 10/06/2024 Sex and Gender Information Value Date Recorded Sex Assigned at Not on file Legal Sex Male 8:23 PM JOINERS SUPERVISOR Gender Identity Not on file Sexual Orientation Not on file Obstetrics History Last Filed Vital Signs Vital Sign Reading Time Taken Comments Blood Pressure 113/56 10/06/2024 6:55 PM JOINERS SUPERVISOR Pulse 66 10/06/2024 6:55 PM JOINERS SUPERVISOR Temperature 36.6 C (97.9 F) 10/06/2024 12:33 PM JOINERS SUPERVISOR Respiratory Rate 10 10/06/2024 6:55 PM JOINERS SUPERVISOR Oxygen Saturation 96% 10/06/2024 6:55 PM JOINERS SUPERVISOR Inhaled Oxygen Concentration - - Weight 99.8 kg (220 lb) 10/06/2024 12:33 PM JOINERS SUPERVISOR Height 182.9 cm (6') 10/06/2024 12:33 PM JOINERS SUPERVISOR Body Mass Index 29.84 10/06/2024 12:33 PM JOINERS SUPERVISOR Plan of Treatment Health Maintenance Due Date Last Done Comments Albumin Creatinine Ratio, Urine 1940 Hepatitis B Screening 1958 Zoster Vaccine (2 of 3) 05/14/2016 03/19/2016 Dilated Eye Exam 05/05/2020 05/05/2019 Foot Exam 11/05/2021 11/05/2020, 06/04/2019 Well Visit 65+ 11/05/2021 11/05/2020, 06/04/2019 Covid-19 Vaccine (4 - 2023-2 5 season) 2024 05/16/2022, 10/23/2020, 09/25/2020 Hemoglobin A1C 12/06/2024 06/07/2024, 03/20, 11/10/2021, Additional history exists Lipid Panel 06/07/2025 06/07/2024, 08/2023, 11/05/2020, Additional history exists Depression Screening [...] Plan Chronic Care Management Improving( 10:49 AM JOINERS SUPERVISOR) Nenita Sanchez, RN Note: Problem: Chronic Pain Goals: 1. Minimize further functional decline 2. Maximize quality of life 3. Control pain Strategies: - Activity/exercise program recommendation - Conservative stepwise pain medicine strategy with multi-disciplinary approach - Recommend healthy lifestyle strategies and compensatory methods as needed Medical Devices Implanted Type Area Manager Study Device Identifier Shelf Expiration Date Model / Serial / Lot [employer] Angio-Seal Vip [place]-Plus 8fr .038in 70cm Hemostatic Latex Free [id number] - [id number] - [id number] Implanted:Qty : 1 on 05/20/2024 by Papo Rascon MD at [facility] Collagen Right: Common Femoral Artery [employer] 12/10/2024 [id number] / [id number] / [id number] Prosthetic Valve Prosthetic Valve Heart Description:Heart Valve Medtronic Card Vasc Surgery 4.0 X 12mm [place] [employer] Coronary Stent [id number] - [id number] - [id number] Implanted:Qty : 1 on 05/20/2024 by Vitor Pedroza MD at [facility] Stent N/A: Circumflex Coronary Artery Medtronic Card Vasc Surgery 01/11/2027 [id number] / [id number] / [id number] Medtronic Card Vasc Surgery 4.0 X 12mm [place] [employer] Coronary Stent [id number] - [id number] - [id number] Implanted:Qty : 1 on 05/20/2024 by Vitor Pedroza MD at [facility] Stent Left: Anterior Descending Cornary Artery Medtronic Card Vasc Surgery 11/14/2026 [id number] / [id number] / [id number] Medtronic Card Vasc Surgery 4.0 X 18mm [place] [employer] Coronary Stent [id number] - [id number] - [id number] Implanted:Qty : 1 on 10/03/2024 by Nigel Holman MD at [facility] Stent Left: Anterior Descending Cornary Artery Medtronic Card Vasc Surgery 04/14/2027 [id number] / [id number] / [id number] Description:Adrian TO lad Procedures Procedure Name Priority Date/Time Associated Diagnosis Comments URINALYSIS, MICROSCOPIC ONLY STAT 10/06/2024 5:51 PM JOINERS SUPERVISOR URINALYSIS AND REFLEX TO MICROSCOPIC STAT 10/06/2024 5:51 PM JOINERS SUPERVISOR COMPREHENSIVE METABOLIC PANEL Routine 10/06/2024 3:59 PM JOINERS SUPERVISOR EGFR Routine 10/06/2024 3:59 PM JOINERS SUPERVISOR VITAMIN B12 Routine 10/06/2024 3:59 PM JOINERS SUPERVISOR TSH Routine 10/06/2024 3:59 PM JOINERS SUPERVISOR CBC WITHOUT DIFFERENTIAL Routine 10/06/2024 3:59 PM JOINERS SUPERVISOR RESPIRATORY PATHOGEN PANEL STAT 10/06/2024 3:[address] HEAD WO CONTRAST ED 10/06/2024 3 :37 PM JOINERS SUPERVISOR XR CHEST PA LATERAL 2 VIEWS ED 10/06/2024 3:30 PM JOINERS SUPERVISOR ECG 12-LEAD STAT 10/06/2024 1:07 PM JOINERS SUPERVISOR POCT GLUCOSE DEVICE Routine 10/06/2024 12:48 PM JOINERS SUPERVISOR EGFR Routine 10/03/2024 4:00 PM JOINERS SUPERVISOR DIFFERENTIAL AUTO Routine 10/03/2024 4:0 0 PM JOINERS SUPERVISOR CBC WITH AUTO DIFFERENTIAL Routine 10/03/2024 4:00 PM JOINERS SUPERVISOR BASIC METABOLIC PANEL Routine 10/03/2024 4:00 PM JOINERS SUPERVISOR POCT ACTIVATED CLOTTING TIME, LOW RANGE Routine 10/03/2024 2:14 PM JOINERS SUPERVISOR RIGHT AND LEFT HEART CATHETERIZATION Routine 10/03/2024 12:42 PM JOINERS SUPERVISOR Chronic systolic heart failure (CMS/HCC) (HCC) Coronary artery disease involving [place] coronary artery of [place] heart with angina pectoris (HCC) Acute on chronic heart failure, unspecified heart failure type (HCC) Paroxysmal atrial fibrillation (CMS/HCC) (HCC) History of aortic valve replacement POCT ACTIVATED CLOTTING TIME, LOW RANGE Routine 10/03/2024 12:42 PM JOINERS SUPERVISOR TYPE AND SCREEN Timed 10/03/2024 12:20 PM JOINERS SUPERVISOR POCT ACTIVATED CLOTTING TIME, LOW RANGE Routine 10/03/2024 12:06 PM JOINERS SUPERVISOR POCT OXYHEMOGLOBIN - DEVICE Routine 10/03/2024 11:47 AM JOINERS SUPERVISOR POCT OXYHEMOGLOBIN - DEVICE Routine 10/03/2024 11:45 AM JOINERS SUPERVISOR CBC WITHOUT DIFFERENTIAL Routine 10/03/2024 11:45 AM JOINERS SUPERVISOR POCT OXYHEMOGLOBIN - DEVICE Routine 10/03/2024 11:44 AM JOINERS SUPERVISOR POCT GLUCOSE DEVICE Routine 10/03/2024 8 :45 AM JOINERS SUPERVISOR BASIC METABOLIC PANEL Routine 09/29/2024 9:42 AM JOINERS SUPERVISOR High risk medications (not anticoagulants) long-term use EGFR Routine 09/24/2024 5:03 PM JOINERS SUPERVISOR Chronic heart failure with preserved ejection fraction (CMS/HCC) (HCC) DIFFERENTIAL AUTO Routine 09/24/2024 5:0 3 PM JOINERS SUPERVISOR Chronic heart failure with preserved ejection fraction (CMS/HCC) (HCC) BASIC METABOLIC PANEL Routine 09/24/2024 5:03 PM JOINERS SUPERVISOR Chronic heart failure with preserved ejection fraction (CMS/HCC) (HCC) PRO B-TYPE NATRIURETIC PEPTIDE Routine 09/24/2024 5:03 PM JOINERS SUPERVISOR Chronic heart failure with preserved ejection fraction (CMS/HCC) (HCC) CBC WITH AUTO DIFFERENTIAL Routine 09/24/2024 5:03 PM JOINERS SUPERVISOR Chronic heart failure with preserved ejection fraction (CMS/HCC) (HCC) ECG 12-LEAD Routine 09/24/2024 4:01 PM JOINERS SUPERVISOR History of aortic valve replacement EGFR STAT 09/14/2024 8:23 AM JOINERS SUPERVISOR BASIC METABOLIC PANEL STAT 09/14/2024 8:23 AM JOINERS SUPERVISOR EGFR Routine 09/13/2024 9:57 PM JOINERS SUPERVISOR CBC WITHOUT DIFFERENTIAL Routine 09/13/2024 9:57 PM JOINERS SUPERVISOR MAGNESIUM Routine 09/13/2024 9:57 PM JOINERS SUPERVISOR BASIC METABOLIC PANEL Routine 09/13/2024 9:57 PM JOINERS SUPERVISOR EGFR Routine 09/12/2024 8:13 PM JOINERS SUPERVISOR CBC WITHOUT DIFFERENTIAL Routine 09/12/2024 8:13 PM JOINERS SUPERVISOR MAGNESIUM Routine 09/12/2024 8:13 PM JOINERS SUPERVISOR BASIC METABOLIC PANEL Routine 09/12/2024 8:13 PM JOINERS SUPERVISOR SODIUM, URINE, RANDOM Routine 09/12/2024 12:36 PM JOINERS SUPERVISOR POCT GLUCOSE DEVICE Routine 09/12/2024 7 :52 AM JOINERS SUPERVISOR POCT GLUCOSE DEVICE Routine 09/12/2024 6 :21 AM JOINERS SUPERVISOR POCT GLUCOSE DEVICE Routine 09/12/2024 2 :15 AM JOINERS SUPERVISOR EGFR Routine 09/11/2024 11:44 PM JOINERS SUPERVISOR CBC WITHOUT DIFFERENTIAL Routine 09/11/2024 11:44 PM JOINERS SUPERVISOR MAGNESIUM Routine 09/11/2024 11:44 PM JOINERS SUPERVISOR BASIC METABOLIC PANEL Routine 09/11/2024 11:44 PM JOINERS SUPERVISOR POCT GLUCOSE DEVICE Routine 09/11/2024 8 :14 PM JOINERS SUPERVISOR POCT GLUCOSE DEVICE Routine 09/11/2024 5 :23 PM JOINERS SUPERVISOR TROPONIN I HIGH-SENSITIVITY 4-HOUR Timed 09/11/2024 3:10 PM JOINERS SUPERVISOR POCUS CARDIAC 09/11/2024 1:58 PM JOINERS SUPERVISOR PRO B-TYPE NATRIURETIC PEPTIDE STAT 09/11/2024 1:30 PM JOINERS SUPERVISOR TROPONIN I HIGH-SENSITIVITY 2-HOUR Timed 09/11/2024 1:30 PM JOINERS SUPERVISOR XR CHEST PA LATERAL 2 VIEWS ED 09/11/2024 11:13 AM JOINERS SUPERVISOR EGFR STAT 09/11/2024 11:03 AM JOINERS SUPERVISOR DIFFERENTIAL AUTO STAT 09/11/2024 11:03 AM JOINERS SUPERVISOR TROPONIN I HIGH-SENSITIVITY SERIES (BASELINE, 2HR, 4HR, 6HR) STAT 09/11/2024 11:03 AM JOINERS SUPERVISOR COMPREHENSIVE METABOLIC PANEL STAT 09/11/2024 11:03 AM JOINERS SUPERVISOR CBC WITH AUTO DIFFERENTIAL STAT 09/11/2024 11:03 AM JOINERS SUPERVISOR ECG 12-LEAD STAT 09/11/2024 10:52 AM JOINERS SUPERVISOR POCT GLUCOSE DEVICE Routine 09/11/2024 10:48 AM JOINERS SUPERVISOR EGFR Routine 09/10/2024 12:26 PM JOINERS SUPERVISOR Chronic heart failure with preserved ejection fraction (CMS/HCC) (HCC) PRO B-TYPE NATRIURETIC PEPTIDE Routine 09/10/2024 12:26 PM JOINERS SUPERVISOR Chronic heart failure with preserved ejection fraction (CMS/HCC) (HCC) BASIC METABOLIC PANEL Routine 09/10/2024 12:26 PM JOINERS SUPERVISOR Chronic heart failure with preserved ejection fraction (CMS/HCC) (HCC) ECG 12-LEAD Routine 09/10/2024 11:33 AM JOINERS SUPERVISOR Chronic heart failure with preserved ejection fraction (CMS/HCC) (HCC) XR SCOLIOSIS AP LAT Schedule Routine, Read Routine (OP Routine) 08/26/2024 11:42 AM JOINERS SUPERVISOR Lumbar spondylosis Chronic bilateral low back pain, unspecified whether sciatica present BASIC METABOLIC PANEL Routine 07/30/2024 12:37 PM JOINERS SUPERVISOR High risk medications (not anticoagulants) long-term use BASIC METABOLIC PANEL Routine 07/16/2024 11:34 AM JOINERS SUPERVISOR High risk medications (not anticoagulants) long-term use HEMOGLOBIN A1C Routine 06/07/2024 8:38 AM CDT LIPID PANEL Routine 06/07/2024 8:38 AM CDT DIABETES FOOT EXAM Routine 11/05/2020 DIABETES EYE EXAM Routine 05/05/2019 from Last 3 Months or Most Recently Relevant to Health Maintenance Results * (ABNORMAL) Urinalysis reflex to microscopic (10/06/2024 5:51 PM JOINERS SUPERVISOR) Color, ur Straw Yellow Clarity, ur Clear Clear [facility] Specific gravity, ur 1.010 1.003 - 1.030 [facility] pH, urine 6.0 [facility] Comment: Interpretive Data U rine pH is affected by diet, medications, systemic acid-base disturbances, and renal tubular function. pH may affect urinary stone formation. For example, urine pH below 6.0 may help reduce the tendency for calcium phosphate stones and pH greater than 6.0 may reduce the tendency for uric acid stone formation. Source: [facility] Current Interpretive Data was last revised on 2017 Protein, ur ql Negative Negative [facility] Glucose, ur ql Negative Negative [facility] Ketones, ur Negative Negative [facility] Bilirubin, ur Negative Negative [facility] Blood, ur Negative Negative [facility] Urobilinogen, ur <2.0 <2.0 mg/dL [facility] Nitrite, ur Negative Negative [facility] Leukocyte esterase, ur Trace(A) Negative [facility] UA reflex comment Reflex to microscopic UA will be performed. [facility] Urine 10/06/2024 5:51 PM JOINERS SUPERVISOR 10/06/2024 5:58 PM JOINERS SUPERVISOR us Aneta Castellanos MD LAB URINE ORDERABLES Final R esult [facility] Department [place] [address] * (ABNORMAL) Urinalysis, microscopic only (10/06/2024 5:51 PM JOINERS SUPERVISOR) WBC, ur 0-5 0 - 5 /HPF RBC, ur 0-2 0 - 2 /HPF [facility] Epithelial cells, squamous, ur 1-5 0 - 5 /HPF [facility] Epithelial cells, transitional, ur 1-5 0 - 0 /HPF [facility] Bacteria, ur Trace(A) [facility] Mucous, ur Present(A) [facility] Hyaline casts, ur 6-10 0 - 10 /LPF [facility] Urine 10/06/2024 5:51 PM JOINERS SUPERVISOR 10/06/2024 5:58 PM JOINERS SUPERVISOR Aneta Castellanos MD LAB URINE ORDERABLES Final R esult Performing Organization Address [facility] de Phone Number [facility] Department [place] [address] * eGFR (10/06/2024 3:59 PM JOINERS SUPERVISOR) [facility] eGFR 64 >=60 mL/min/1. 73 m2 Comment: [...] last reviewed 2021. Blood 10/06/2024 3:59 PM JOINERS SUPERVISOR 10/06/2024 4:26 PM JOINERS SUPERVISOR Aneta Castellanos MD LAB BLOOD ORDERABLES Final R esult Performing Organization Address [facility] Co de Phone Number [facility] Department [place] [address] * Respiratory pathogen panel Nasopharyngeal (10/06/2024 3:59 PM JOINERS SUPERVISOR) [facility] Influenza A RNA Not Detected Not Detected Influenza B RNA Not Detected Not Detected [facility] RSV RNA Not Detected Not Detected [facility] COVID-19 RNA Not Detected Not Detected [facility] Coronavirus 229E RNA Not Detected Not Detected [facility] Coronavirus HKU1 RNA Not Detected Not Detected [facility] Coronavirus NL63 RNA Not Detected Not Detected [facility] Coronavirus OC43 RNA Not Detected Not Detected [facility] Adenovirus DNA Not Detected Not Detected [facility] Metapneumovirus RNA Not Detected Not Detected [facility] Rhinovirus/Enterov irus RNA Not Detected Not Detected [facility] Parainfluenza 1 RNA Not Detected Not Detected [facility] Parainfluenza 2 RNA Not Detected Not Detected [facility] Parainfluenza 3 RNA Not Detected Not Detected [facility] Parainfluenza 4 RNA Not Detected Not Detected [facility] B. pertussis DNA Not Detected Not Detected [facility] B. parapertussis DNA Not Detected Not Detected [facility] C. pneumoniae DNA Not Detected Not Detected [facility] M. pneumoniae DNA Not Detected Not Detected [facility] Nasopharyngeal 10/06/2024 3: 59 PM JOINERS SUPERVISOR 10/06/2024 4:19 PM JOINERS SUPERVISOR Narrative [facility] - 10/06/2024 6:14 PM JOINERS SUPERVISOR Is the Patient experiencing symptoms consistent with COVID?->No Surveillance testing for transplant patient?->No Interpretive Data The [employer] FilmArray Respiratory Panel (RP2.1) assay is [...] assay has FDA clearance for testing of [employer]ENTR[employer]AL OPERATOR swabs. The performance of additional specimen types has been assessed by the performing laboratory. The performance characteristics of this assay have been determined by [facility] Molecular Infectious Disease Laboratory. Current interpretive data was last revised on 22. us Oralia Cummings MD LAB MICROBIOLOGY - GENERAL OR DERABLES Final Result [facility] Department [place] [address] * (ABNORMAL) CBC without differential (10/06/2024 3:59 PM JOINERS SUPERVISOR) WBC 6.8 3.8 - 9.9 K/cumm Hgb 11.5(L) 13.0 - 17.5 g/dL [facility] Hct 34.1(L) 38.9 - 50.3 % [facility] Plt 162 150 - 400 K/cumm [facility] MPV 11.4 9.1 - 12.3 fL [facility] RBC 3.72(L) 4.30 - 5.80 M/cumm [facility] MCV 91.7 81.3 - 96.4 fL [facility] MCH 30.9 27.1 - 33.3 pg [facility] MCHC 33.7 32.3 - 35.7 g/dL [facility] RDW CV 14.7 11.1 - 14.9 % [facility] RDW SD 49.6(H) 35.7 - 48.1 fL [facility] NRBC abs 0.00 0.00 - 0.01 K/cumm [facility] Blood 10/06/2024 3:59 PM JOINERS SUPERVISOR 10/06/2024 4:26 PM JOINERS SUPERVISOR us Priscilla Sarmiento MD LAB BLOOD ORDERABLES Final R esult Performing Organization Address City/[facility] Co de Phone Number [facility] [place] [address] * TSH (10/06/2024 3:59 PM JOINERS SUPERVISOR) Pathologist [facility] Thyroid Stimulating Hormone 3.88 0.30 - 4.20 mcIUnit/mL Blood 10/06/2024 3:59 PM JOINERS SUPERVISOR 10/06/2024 4:09 PM JOINERS SUPERVISOR us Oralia Cummings MD LAB BLOOD ORDERABLES Final Re sult Performing Organization Address [facility] Co de Phone Number [facility] [place] [place] [address] * Vitamin B12 (10/06/2024 3:59 PM JOINERS SUPERVISOR) Pathologist [facility] Vitamin B12 420 230 - 1,250 pg/mL Blood 10/06/2024 3:5 9 PM JOINERS SUPERVISOR 10/06/2024 4:09 PM JOINERS SUPERVISOR us Oralia Cummings MD LAB BLOOD ORDERABLES Final Re sult Performing Organization Address [facility] Co de Phone Number [facility] [place] [place] [address] * (ABNORMAL) Comprehensive metabolic panel (10/06/2024 3:59 PM JOINERS SUPERVISOR) Sodium 143 135 - 145 mmol/L Potassium, pl 4.3 3.3 - 4.9 mmol/L [facility] Chloride 104 97 - 110 mmol/L [facility] CO2 26 22 - 32 mmol/L [facility] Anion gap 13 2 - 15 mmol/L [facility] BUN 26(H) 6 - 25 mg/dL [facility] Creatinine 1.12 0.80 - 1.30 mg/dL [facility] Glucose 94 70 - 199 mg/dL [facility] Comment: Interpretive Data Fasting glucose >/= 126 [...] 2022. Calcium 9.1 8.5 - 10.3 mg/dL [facility] Bilirubin, total 0.4 0.1 - 1.2 mg/dL [facility] Protein, pl 7.1 6.5 - 8.5 g/dL [facility] Albumin 3.9 3.5 - 5.0 g/dL [facility] Alk phos 45 40 - 130 Units/L [facility] ALT 15 7 - 55 Units/L [facility] AST 37 10 - 50 Units/L [facility] Blood 10/06/2024 3:59 PM JOINERS SUPERVISOR 10/06/2024 4:09 PM JOINERS SUPERVISOR Aneta Castellanos MD LAB BLOOD ORDERABLES Final R esult [facility] Department [place] [address] * CT Head WO Contrast (10/06/2024 3:37 PM JOINERS SUPERVISOR) Anatomical Region Laterality Modality Head and Neck N/A Computed Tomogra phy 10/06/2024 4:29 PM JOINERS SUPERVISOR Impressions 10/06/2024 4:41 PM JOINERS SUPERVISOR No acute intracranial hemorrhage, large vessel territory infarction, mass effect, or midline shift. Dictated by: Nikolas Vega M.D. The radiology attending physician has personally reviewed this study, and had reviewed and/or edited this written report and agrees with it. Electronically signed by: Johnny Ballesteros M.D, PHD Narrative 10/06/2024 4:41 PM JOINERS SUPERVISOR EXAMINATION: CT head without contrast HISTORY: Altered [...] PA Lateral 2 Views (10/06/2024 3:30 PM JOINERS SUPERVISOR) Anatomical Region Laterality Modality Body, Chest N/A Computed Radiogr aphy 10/06/2024 3:42 PM JOINERS SUPERVISOR Impressions 10/06/2024 3:49 PM JOINERS SUPERVISOR Comparison with chest radiograph dated 07/12/2025. Median [...] Luna Perez M.D. Narrative 10/06/2024 3:49 PM JOINERS SUPERVISOR EXAMINATION: 2 view chest radiograph Procedure Note Luna Perez MD - 10/06/2024 EXAMINATION: 2 view chest radiograph IMPRESSION: Comparison with chest radiograph dated 07/12/2025. Median sternotomy wires are present. Aortic valve replacement is present. Small lung volumes. Unchanged scarring of the left mid lung. Mild bibasilar atelectasis. No pleural effusion or pneumothorax. Cardiomediastinal silhouette is unchanged. Dictated by: Jose Martin Cazarse M.D. The radiology attending physician has personally reviewed this study, and had reviewed and/or edited this written report and agrees with it. Electronically signed by: Luna Perez M.D. Priscilla Sarmiento MD IMG XR PROCEDURES Final Resu lt * ECG 12-LEAD (10/06/2024 1:07 PM JOINERS SUPERVISOR) Narrative [facility] - 10/06/2024 1:07 PM JOINERS SUPERVISOR Nupur Orozco MD 10/06/2024 1:08 PM ECG 12 lead Date/Time: 10/06/2024 1:07 PM Performed by: Nupur Orozco MD Authorized by: Jaylen Petersen MD Comments: EKG Interpretation Interpreted by ED physician in absence of a finance executive Ventricular rate: 65 bpm Rhythm: sinus with PACs [place]: Normal Intervals: 1st degree av block, wide QRS Other findings: no acute ischemia Interpretation: abnormal EKG, LBBB, ectopy Compared to priors: no priors for comparison us Aneta Castellanos MD ECG ORDERABLES Final Result [facility] * POCT glucose (10/06/2024 12:48 PM JOINERS SUPERVISOR) Glucose, POC 112 70 - 199 mg/dL Blood 10/06/2024 12:4 8 PM JOINERS SUPERVISOR 10/06/2024 12:48 PM JOINERS SUPERVISOR us Notinfile Unknown LAB POCT ORDERABLES - DEVICE F inal Result Performing Organization Address City/[facility]/ZIP Co de Phone Number [facility] Department [place] [address] * eGFR (10/03/2024 4:00 PM JOINERS SUPERVISOR) eGFR 73 >=60 mL/min/1. 73 m2 Comment: [...] last reviewed 2021. Blood 10/03/2024 4:00 PM JOINERS SUPERVISOR 10/03/2024 4:23 PM JOINERS SUPERVISOR us Crescencio Vázquez MD LAB BLOOD ORDERABLES Final Resul t [facility] Department [place] [address] * Differential, auto (10/03/2024 4:00 PM JOINERS SUPERVISOR) Neutrophil abs 3.7 1.5 - 6.5 K/cumm Imm gran abs 0.0 0.0 - 0.1 K/cumm [facility] Lymphocyte abs 1.5 0.8 - 3.3 K/cumm [facility] Monocyte abs 0.4 0.2 - 0.8 K/cumm [facility] Eosinophil abs 0.2 0.0 - 0.5 K/cumm [facility] Basophil abs 0.0 0.0 - 0.1 K/cumm [facility] Neutrophil pct 63.5 % [facility] Comment: Interpretive Data Percent cell count reference ranges are not reported, since discordance with absolute values may lead to misinterpretation of CBC data. Current Interpretive Data was last revised on 2017. Imm gran pct 0.3 % [facility] Comment: Interpretive Data Percent cell count reference ranges are not reported, since discordance with absolute values may lead to misinterpretation of CBC data. Current Interpretive Data was last revised on 2017. Lymphocyte pct 26.0 % [facility] Comment: Interpretive Data Percent cell count reference ranges are not reported, since discordance with absolute values may lead to misinterpretation of CBC data. Current Interpretive Data was last revised on 2017. Monocyte pct 7.1 % [facility] Comment: Interpretive Data Percent cell count reference ranges are not reported, since discordance with absolute values may lead to misinterpretation of CBC data. Current Interpretive Data was last revised on 2017. Eosinophil pct 2.6 % [facility] Comment: Interpretive Data Percent cell count reference ranges are not reported, since discordance with absolute values may lead to misinterpretation of CBC data. Current Interpretive Data was last revised on 2017. Basophil pct 0.5 % [facility] Comment: Interpretive Data Percent cell count reference ranges are not reported, since discordance with absolute values may lead to misinterpretation of CBC data. Current Interpretive Data was last revised on 2017. Blood 10/03/2024 4:00 PM JOINERS SUPERVISOR 10/03/2024 4:18 PM JOINERS SUPERVISOR us Crescencio Vázquez MD LAB BLOOD ORDERABLES Final Resul t [facility] Department [place] [address] * (ABNORMAL) CBC with auto differential (10/03/2024 4:00 PM JOINERS SUPERVISOR) WBC 5.8 3.8 - 9.9 K/cumm Hgb 10.8(L) 13.0 - 17.5 g/dL [facility] Hct 32.5(L) 38.9 - 50.3 % [facility] Plt 143(L) 150 - 400 K/cumm [facility] MPV 11.6 9.1 - 12.3 fL [facility] RBC 3.54(L) 4.30 - 5.80 M/cumm [facility] MCV 91.8 81.3 - 96.4 fL [facility] MCH 30.5 27.1 - 33.3 pg [facility] MCHC 33.2 32.3 - 35.7 g/dL [facility] RDW CV 14.4 11.1 - 14.9 % [facility] RDW SD 48.6(H) 35.7 - 48.1 fL [facility] NRBC abs 0.00 0.00 - 0.01 K/cumm [facility] Blood 10/03/2024 4:00 PM JOINERS SUPERVISOR 10/03/2024 4:18 PM JOINERS SUPERVISOR us Crescencio Vázquez MD LAB BLOOD ORDERABLES Final Resul t Performing Organization Address [facility] Co de Phone Number [facility] Department [place] [address] * Basic metabolic panel (10/03/2024 4:00 PM JOINERS SUPERVISOR) Sodium 142 135 - 145 mmol/L Potassium, pl 3.8 3.3 - 4.9 mmol/L [facility] Chloride 104 97 - 110 mmol/L [facility] CO2 28 22 - 32 mmol/L [facility] Anion gap 10 2 - 15 mmol/L [facility] BUN 17 6 - 25 mg/dL [facility] Creatinine 1.01 0.80 - 1.30 mg/dL [facility] Glucose 179 70 - 199 mg/dL [facility] Comment: Interpretive Data Fasting glucose >/= 126 [...] 2022. Calcium 8.5 8.5 - 10.3 mg/dL [facility] Blood 10/03/2024 4:00 PM JOINERS SUPERVISOR 10/03/2024 4:18 PM JOINERS SUPERVISOR Crescencio Vázquez MD LAB BLOOD ORDERABLES Final Resul t Performing Organization Address [facility]/ZIP Co de Phone Number [facility] Department [place] [address] * (ABNORMAL) POCT Activated clotting time, low range (10/03/2024 2:14 PM JOINERS SUPERVISOR) ACT 181(H) 123 - 168 sec POC Performer [id number] [facility] POC Device Number [id number] [facility] Blood 10/03/2024 2:14 PM JOINERS SUPERVISOR 10/03/2024 2:14 PM JOINERS SUPERVISOR us Nigel Holman MD LAB POCT ORDERABLES - DEVICE Final Result [facility] Department [place] [address] * RIGHT AND LEFT HEART CATHETERIZATION (10/03/2024 12:42 PM JOINERS SUPERVISOR) Anatomical Region Laterality Modality X-Ray Angiograph y Impressions 10/03/2024 2:26 PM JOINERS SUPERVISOR Severe stenosis of the mid LAD with [...] Nigel Holman MD Narrative 10/03/2024 2:26 PM JOINERS SUPERVISOR Table formatting from the original result was not included. Procedure: CORONARY ANGIOGRAM / RIGHT HEART CATHETERIZATION/ percutaneous coronary intervention Patient: Ashkan Pryor is a 84 y.o. male : 1940 MR number: [id number] Date of Service: 10/03/2024 Display Associate: Nigel Holman MD Fellow: Crescencio Vázquez MD [...] obtained. The patient was brought to the cardiac cath lab technologist and placed on the table Bilateral groins [...] performed Right heart catheterization preformed with 7 Romansh arrow [place] At the end of the procedure, arteriotomy [...] vasodilators and reimage that showed some slight rastafarian of flow. Upon review it looks as [...] clotting time, low range (10/03/2024 12:42 PM JOINERS SUPERVISOR) [facility] ACT 252(H) 123 - 168 sec POC Performer [id number] [facility] POC Device Number [id number] [facility] Blood 10/03/2024 12:4 2 PM JOINERS SUPERVISOR 10/03/2024 12:42 PM JOINERS SUPERVISOR us Nigel Holman MD LAB POCT ORDERABLES - DEVICE Final Result [facility] [place] [address] * Type and screen (10/03/2024 12:20 PM JOINERS SUPERVISOR) [facility] Lit, indirect Negative ABO Rh A Positive [facility] Blood 10/03/2024 12:2 0 PM JOINERS SUPERVISOR 10/03/2024 12:39 PM JOINERS SUPERVISOR Narrative [facility] - 10/03/2024 1:32 PM JOINERS SUPERVISOR Has the patient had Daratumumab or Isatuximab in the past 6 months?->Unknown Nigel Holman MD LAB BLOOD BANK TEST ORDERABL ES Final Result Performing Organization Address [facility] de Phone Number [facility] [place] [address] * (ABNORMAL) POCT Activated clotting time, low range (10/03/2024 12:06 PM JOINERS SUPERVISOR) Pathologist [facility] ACT 240(H) 123 - 168 sec POC Performer [id number] [facility] POC Device Number [id number] [facility] Blood 10/03/2024 12:0 6 PM JOINERS SUPERVISOR 10/03/2024 12:06 PM JOINERS SUPERVISOR Nigel Holman MD LAB POCT ORDERABLES - DEVICE Final Result Performing Organization Address [facility] de Phone Number [facility] [place] [address] * (ABNORMAL) POCT oxyhemoglobin (10/03/2024 11:47 AM JOINERS SUPERVISOR) Pathologist [facility] [employer] Oxyhemoglobin 95.3 >=65.0 % [employer] Hemoglobin 11.7(L) 13.0 - 17.5 g/dL [facility] [employer] O2 content 15.5 15.0 - 22.0 Vol % [facility] Anatomic Site aPOC Aorta descend [facility] Blood 10/03/2024 11:4 7 AM JOINERS SUPERVISOR 10/03/2024 11:47 AM JOINERS SUPERVISOR Nigel Holman MD LAB POCT ORDERABLES - DEVICE Final Result Performing Organization Address [facility] de Phone Number [facility] Department [place] [address] * (ABNORMAL) POCT oxyhemoglobin (10/03/2024 11:45 AM JOINERS SUPERVISOR) [facility] [employer] Oxyhemoglobin 67.9 >=65.0 % [employer] Hemoglobin 11.0(L) 13.0 - 17.5 g/dL [facility] [employer] O2 content 10.4(L) 15.0 - 22.0 Vol % [facility] Anatomic Site aPOC Pulm Art main [facility] Blood 10/03/2024 11:4 5 AM JOINERS SUPERVISOR 10/03/2024 11:45 AM JOINERS SUPERVISOR Nigel Holman MD LAB POCT ORDERABLES - DEVICE Final Result [facility] Department [place] [address] * (ABNORMAL) CBC without differential (10/03/2024 11:45 AM JOINERS SUPERVISOR) [facility] WBC 6.8 3.8 - 9.9 K/cumm Hgb 11.3(L) 13.0 - 17.5 g/dL [facility] Hct 34.2(L) 38.9 - 50.3 % [facility] Plt 142(L) 150 - 400 K/cumm [facility] MPV 11.3 9.1 - 12.3 fL [facility] RBC 3.65(L) 4.30 - 5.80 M/cumm [facility] MCV 93.7 81.3 - 96.4 fL [facility] MCH 31.0 27.1 - 33.3 pg [facility] MCHC 33.0 32.3 - 35.7 g/dL [facility] RDW CV 14.1 11.1 - 14.9 % [facility] RDW SD 49.1(H) 35.7 - 48.1 fL [facility] NRBC abs 0.00 0.00 - 0.01 K/cumm [facility] Blood 10/03/2024 11:4 5 AM JOINERS SUPERVISOR 10/03/2024 11:51 AM JOINERS SUPERVISOR Narrative [facility] - 10/03/2024 12:12 PM JOINERS SUPERVISOR To be drawn after hydration bolus complete us Nigel Holman MD LAB BLOOD ORDERABLES Final R esult Performing Organization Address [facility] Co de Phone Number [facility] Department [place] [address] * (ABNORMAL) POCT oxyhemoglobin (10/03/2024 11:44 AM JOINERS SUPERVISOR) [employer] Oxyhemoglobin 69.1 >=65.0 % [employer] Hemoglobin 11.3(L) 13.0 - 17.5 g/dL [facility] [employer] O2 content 10.9(L) 15.0 - 22.0 Vol % [facility] Anatomic Site aPOC Pulm Art main [facility] Blood 10/03/2024 11:4 4 AM JOINERS SUPERVISOR 10/03/2024 11:44 AM JOINERS SUPERVISOR us Nigel Holman MD LAB POCT ORDERABLES - DEVICE Final Result Performing Organization Address [facility] [facility] de Phone Number [facility] Department [place] [address] * POCT glucose (10/03/2024 8:45 AM JOINERS SUPERVISOR) Glucose, POC 117 70 - 199 mg/dL Blood 10/03/2024 8:45 AM JOINERS SUPERVISOR 10/03/2024 8:45 AM JOINERS SUPERVISOR us Nigel Holman MD LAB POCT ORDERABLES - DEVICE Final Result Performing Organization Address [facility] [place] [address] * Basic metabolic panel (09/29/2024 9:42 AM JOINERS SUPERVISOR) Glucose 99 65 - 99 mg/dL [facility] Comment: Fasting reference interval BUN 23 7 - 25 mg/dL Melodie Villanueva Creatinine 0.96 0.70 - 1.22 mg/dL Melodie Villanueva eGFR 77 > OR = 60 mL/min/1.7 3m2 Melodie Villanueva BUN/creat ratio SEE NOTE: 6 (calc) Melodie Villanueva Comment: Not Reported: BUN and Creatinine are within reference range. Sodium 142 135 - 146 mmol/L Melodie Hayden[employer] Villanueva Potassium, pl 4.0 3.5 - 5.3 mmol/L [facility]odie [employer] Vill[place]va Chloride 103 98 - 110 mmol/L Melodie [employer] Villan[place]va CO2 32 20 - 32 mmol/L Melodie [employer] Villanueva Calcium 8.9 8.6 - 10.3 mg/dL Melodie [employer] Villanueva Blood 09/29/2024 9:42 AM JOINERS SUPERVISOR 09/29/2024 9:42 AM JOINERS SUPERVISOR Rehan Sheth MD LAB BLOOD ORDERABLES F inal Result [facility] [address] [place] [address] * (ABNORMAL) eGFR (09/24/2024 5:03 PM JOINERS SUPERVISOR) eGFR 55(L) >=60 mL/min/1. 73 m2 Comment: [...] last reviewed 2021. Blood 09/24/2024 5:03 PM JOINERS SUPERVISOR 09/24/2024 5:24 PM JOINERS SUPERVISOR Rehan Sheth MD LAB BLOOD ORDERABLES F inal Result [facility] Department [place] [address] * Differential, auto (09/24/2024 5:03 PM JOINERS SUPERVISOR) Neutrophil abs 3.6 1.5 - 6.5 K/cumm Imm gran abs 0.0 0.0 - 0.1 K/cumm [facility] Lymphocyte abs 1.9 0.8 - 3.3 K/cumm [facility] Monocyte abs 0.6 0.2 - 0.8 K/cumm [facility] Eosinophil abs 0.2 0.0 - 0.5 K/cumm [facility] Basophil abs 0.0 0.0 - 0.1 K/cumm [facility] Neutrophil pct 56.5 % [facility] Comment: Interpretive Data Percent cell count reference ranges are not reported, since discordance with absolute values may lead to misinterpretation of CBC data. Current Interpretive Data was last revised on 2017. Imm gran pct 0.6 % [facility] Comment: Interpretive Data Percent cell count reference ranges are not reported, since discordance with absolute values may lead to misinterpretation of CBC data. Current Interpretive Data was last revised on 2017. Lymphocyte pct 30.0 % [facility] Comment: Interpretive Data Percent cell count reference ranges are not reported, since discordance with absolute values may lead to misinterpretation of CBC data. Current Interpretive Data was last revised on 2017. Monocyte pct 9.1 % [facility] Comment: Interpretive Data Percent cell count reference ranges are not reported, since discordance with absolute values may lead to misinterpretation of CBC data. Current Interpretive Data was last revised on 2017. Eosinophil pct 3.3 % [facility] Comment: Interpretive Data Percent cell count reference [...] revised on 2017. Blood 09/24/2024 5:03 PM JOINERS SUPERVISOR 09/24/2024 5:24 PM JOINERS SUPERVISOR us Rehan Sheth MD LAB BLOOD ORDERABLES F inal Result [facility] Department [place] [address] * (ABNORMAL) Pro B-type natriuretic peptide (09/24/2024 5:03 PM JOINERS SUPERVISOR) NT-proBNP 2,036(H) <=450 pg/mL Comment: Interpretive Comments: [...] Revised Date: 2018. Blood 09/24/2024 5:03 PM JOINERS SUPERVISOR 09/24/2024 5:24 PM JOINERS SUPERVISOR Rehan Sheth MD LAB BLOOD ORDERABLES F inal Result Performing Organization Address [facility] Co de Phone Number [facility] Department [place] [address] * (ABNORMAL) CBC with auto differential (09/24/2024 5:03 PM JOINERS SUPERVISOR) Pathologist [facility] WBC 6.3 3.8 - 9.9 K/cumm Hgb 11.7(L) 13.0 - 17.5 g/dL [facility] Hct 35.3(L) 38.9 - 50.3 % [facility] Plt 184 150 - 400 K/cumm [facility] MPV 11.3 9.1 - 12.3 fL [facility] RBC 3.76(L) 4.30 - 5.80 M/cumm [facility] MCV 93.9 81.3 - 96.4 fL [facility] MCH 31.1 27.1 - 33.3 pg [facility] MCHC 33.1 32.3 - 35.7 g/dL [facility] RDW CV 14.6 11.1 - 14.9 % [facility] RDW SD 50.4(H) 35.7 - 48.1 fL [facility] NRBC abs 0.00 0.00 - 0.01 K/cumm [facility] Blood 09/24/2024 5:03 PM JOINERS SUPERVISOR 09/24/2024 5:24 PM JOINERS SUPERVISOR Rehan Sheth MD LAB BLOOD ORDERABLES F inal Result Performing Organization Address [facility] Co de Phone Number [facility] Department [place] [address] * (ABNORMAL) Basic metabolic panel (09/24/2024 5:03 PM JOINERS SUPERVISOR) [facility] Sodium 145 135 - 145 mmol/L Potassium, pl 3.7 3.3 - 4.9 mmol/L [facility] Chloride 107 97 - 110 mmol/L [facility] CO2 30 22 - 32 mmol/L [facility] Anion gap 8 2 - 15 mmol/L [facility] BUN 31(H) 6 - 25 mg/dL [facility] Creatinine 1.27 0.80 - 1.30 mg/dL [facility] Glucose 89 70 - 199 mg/dL [facility] Comment: Interpretive Data Fasting glucose >/= 126 [...] 2022. Calcium 9.0 8.5 - 10.3 mg/dL [facility] Blood 09/24/2024 5:03 PM JOINERS SUPERVISOR 09/24/2024 5:24 PM JOINERS SUPERVISOR Rehan Sheth MD LAB BLOOD ORDERABLES F inal Result [facility] Department [place] [address] * ECG 12 lead (09/24/2024 4:01 PM JOINERS SUPERVISOR) Rehan Sheth MD ECG ORDERABLES Edited Result - Final * eGFR (09/14/2024 8:23 AM JOINERS SUPERVISOR) [facility] eGFR 63 >=60 mL/min/1. 73 m2 Comment: [...] last reviewed 2021. Blood 09/14/2024 8:23 AM JOINERS SUPERVISOR 09/14/2024 8:45 AM JOINERS SUPERVISOR us Dalila Torres MD LAB BLOOD ORDERABLES Fi nal Result [facility] Department [place] [address] * (ABNORMAL) Basic metabolic panel (09/14/2024 8:23 AM JOINERS SUPERVISOR) Sodium 140 135 - 145 mmol/L Potassium, pl 4.0 3.3 - 4.9 mmol/L [facility] Chloride 104 97 - 110 mmol/L [facility] CO2 27 22 - 32 mmol/L [facility] Anion gap 9 2 - 15 mmol/L [facility] BUN 28(H) 6 - 25 mg/dL [facility] Creatinine 1.14 0.80 - 1.30 mg/dL [facility] Glucose 108 70 - 199 mg/dL [facility] Comment: Interpretive Data Fasting glucose >/= 126 [...] Calcium 8.8 8.5 - 10.3 mg/dL [facility] Blood 09/14/2024 8:23 AM JOINERS SUPERVISOR 09/14/2024 8:45 AM JOINERS SUPERVISOR us Dalila Torres MD LAB BLOOD ORDERABLES Fi nal Result Performing Organization Address City/[facility]/ZIP Co de Phone Number [facility] Department [place] [address] * (ABNORMAL) eGFR (09/13/2024 9:57 PM JOINERS SUPERVISOR) eGFR 49(L) >=60 mL/min/1. 73 m2 Comment: [...] last reviewed 2021. Blood 09/13/2024 9:57 PM JOINERS SUPERVISOR 09/13/2024 10:27 PM JOINERS SUPERVISOR us Dalila Torres MD LAB BLOOD ORDERABLES Fi nal Result [facility] Department [place] [address] * (ABNORMAL) CBC without differential (09/13/2024 9:57 PM JOINERS SUPERVISOR) [facility] WBC 6.4 3.8 - 9.9 K/cumm Hgb 11.1(L) 13.0 - 17.5 g/dL [facility] Hct 33.4(L) 38.9 - 50.3 % [facility] Plt 152 150 - 400 K/cumm [facility] MPV 11.2 9.1 - 12.3 fL [facility] RBC 3.53(L) 4.30 - 5.80 M/cumm [facility] MCV 94.6 81.3 - 96.4 fL [facility] MCH 31.4 27.1 - 33.3 pg [facility] MCHC 33.2 32.3 - 35.7 g/dL [facility] RDW CV 14.9 11.1 - 14.9 % [facility] RDW SD 52.3(H) 35.7 - 48.1 fL [facility] NRBC abs 0.00 0.00 - 0.01 K/cumm [facility] Blood 09/13/2024 9:57 PM JOINERS SUPERVISOR 09/13/2024 10:27 PM JOINERS SUPERVISOR us Dalila Torres MD LAB BLOOD ORDERABLES Fi nal Result Performing Organization Address City/[facility]/ZIP Co de Phone Number [facility] Department [place] [address] * Magnesium (09/13/2024 9:57 PM JOINERS SUPERVISOR) [facility] Magnesium 2.1 1.4 - 2.5 mg/dL Blood 09/13/2024 9:57 PM JOINERS SUPERVISOR 09/13/2024 10:27 PM JOINERS SUPERVISOR us Dalila Torres MD LAB BLOOD ORDERABLES Fi nal Result Performing Organization Address [facility]/ZIP Co de Phone Number [facility] Department [place] [address] * (ABNORMAL) Basic metabolic panel (09/13/2024 9:57 PM JOINERS SUPERVISOR) [facility] Sodium 139 135 - 145 mmol/L Potassium, pl 3.7 3.3 - 4.9 mmol/L [facility] Chloride 102 97 - 110 mmol/L [facility] CO2 28 22 - 32 mmol/L [facility] Anion gap 9 2 - 15 mmol/L [facility] BUN 35(H) 6 - 25 mg/dL [facility] Creatinine 1.41(H) 0.80 - 1.30 mg/dL [facility] Glucose 126 70 - 199 mg/dL [facility] Comment: Interpretive Data Fasting glucose >/= 126 [...] 2022. Calcium 8.7 8.5 - 10.3 mg/dL [facility] Blood 09/13/2024 9:57 PM JOINERS SUPERVISOR 09/13/2024 10:27 PM JOINERS SUPERVISOR us Dalila Torres MD LAB BLOOD ORDERABLES Fi nal Result [facility] Department [place] [address] * (ABNORMAL) eGFR (09/12/2024 8:13 PM JOINERS SUPERVISOR) [facility] eGFR 51(L) >=60 mL/min/1. 73 m2 Comment: [...] last reviewed 2021. Blood 09/12/2024 8:13 PM JOINERS SUPERVISOR 09/12/2024 8:55 PM JOINERS SUPERVISOR us Dalila Torres MD LAB BLOOD ORDERABLES Fi nal Result [facility] Department [place] [address] * (ABNORMAL) CBC without differential (09/12/2024 8:13 PM JOINERS SUPERVISOR) WBC 7.4 3.8 - 9.9 K/cumm Hgb 11.0(L) 13.0 - 17.5 g/dL [facility] Hct 33.7(L) 38.9 - 50.3 % [facility] Plt 181 150 - 400 K/cumm [facility] MPV 11.1 9.1 - 12.3 fL [facility] RBC 3.60(L) 4.30 - 5.80 M/cumm [facility] MCV 93.6 81.3 - 96.4 fL [facility] MCH 30.6 27.1 - 33.3 pg [facility] MCHC 32.6 32.3 - 35.7 g/dL [facility] RDW CV 14.8 11.1 - 14.9 % [facility] RDW SD 51.2(H) 35.7 - 48.1 fL [facility] NRBC abs 0.00 0.00 - 0.01 K/cumm [facility] Blood 09/12/2024 8:13 PM JOINERS SUPERVISOR 09/12/2024 8:54 PM JOINERS SUPERVISOR Dalila Torres MD LAB BLOOD ORDERABLES Fi nal Result Performing Organization Address City/[facility] Co de Phone Number [facility] [place] [address] * Magnesium (09/12/2024 8:13 PM JOINERS SUPERVISOR) Pathologist [facility] Magnesium 2.0 1.4 - 2.5 mg/dL Blood 09/12/2024 8:13 PM JOINERS SUPERVISOR 09/12/2024 8:55 PM JOINERS SUPERVISOR Dalila Torres MD LAB BLOOD ORDERABLES Fi nal Result Performing Organization Address [facility] de Phone Number [facility] [place] [address] * (ABNORMAL) Basic metabolic panel (09/12/2024 8:13 PM JOINERS SUPERVISOR) [facility] Sodium 141 135 - 145 mmol/L Potassium, pl 3.8 3.3 - 4.9 mmol/L [facility] Chloride 106 97 - 110 mmol/L [facility] CO2 26 22 - 32 mmol/L [facility] Anion gap 9 2 - 15 mmol/L [facility] BUN 31(H) 6 - 25 mg/dL [facility] Creatinine 1.37(H) 0.80 - 1.30 mg/dL [facility] Glucose 102 70 - 199 mg/dL [facility] Comment: Interpretive Data Fasting glucose >/= 126 [...] 2022. Calcium 8.4(L) 8.5 - 10.3 mg/dL [facility] Blood 09/12/2024 8:13 PM JOINERS SUPERVISOR 09/12/2024 8:55 PM JOINERS SUPERVISOR us Dalila Torres MD LAB BLOOD ORDERABLES Fi nal Result Performing Organization Address City/[facility] Co de Phone Number [facility] [place] [address] * Sodium, urine, random (09/12/2024 12:36 PM JOINERS SUPERVISOR) Sodium, ur 72 mmol/L Comment: Interpretive Data No reference range established. Current interpretive data was last revised 2018. Urine 09/12/2024 12:3 6 PM JOINERS SUPERVISOR 09/12/2024 4:22 PM JOINERS SUPERVISOR us Dalila Torres MD LAB URINE ORDERABLES Fi nal Result Performing Organization Address [facility] Co de Phone Number [facility] [place] [address] * POCT glucose (09/12/2024 7:52 AM JOINERS SUPERVISOR) Glucose, POC 103 70 - 199 mg/dL Blood 09/12/2024 7:52 AM JOINERS SUPERVISOR 09/12/2024 7:52 AM JOINERS SUPERVISOR Dalila Torres MD LAB POCT ORDERABLES - D EVICE Final Result Performing Organization Address [facility] Co de Phone Number [facility] [place] [address] * POCT glucose (09/12/2024 6:21 AM JOINERS SUPERVISOR) Glucose, POC 92 70 - 199 mg/dL Blood 09/12/2024 6:21 AM JOINERS SUPERVISOR 09/12/2024 6:21 AM JOINERS SUPERVISOR Dalila Torres MD LAB POCT ORDERABLES - D EVICE Final Result Performing Organization Address City/[facility] Co de Phone Number [facility] [place] [address] * POCT glucose (09/12/2024 2:15 AM JOINERS SUPERVISOR) Glucose, POC 178 70 - 199 mg/dL Blood 09/12/2024 2:15 AM JOINERS SUPERVISOR 09/12/2024 2:15 AM JOINERS SUPERVISOR Dalila Torres MD LAB POCT ORDERABLES - D EVICE Final Result Performing Organization Address [facility] Co de Phone Number [facility] Department [place] [address] * (ABNORMAL) eGFR (09/11/2024 11:44 PM JOINERS SUPERVISOR) eGFR 54(L) >=60 mL/min/1. 73 m2 Comment: [...] reviewed 2021. Blood 09/11/2024 11:4 4 PM JOINERS SUPERVISOR 09/12/2024 12:17 AM JOINERS SUPERVISOR us Dalila Torres MD LAB BLOOD ORDERABLES Fi nal Result Performing Organization Address City/[facility]/ZIP Co de Phone Number [facility] Department [place] [address] * (ABNORMAL) CBC without differential (09/11/2024 11:44 PM JOINERS SUPERVISOR) WBC 7.1 3.8 - 9.9 K/cumm Hgb 11.5(L) 13.0 - 17.5 g/dL [facility] Hct 34.7(L) 38.9 - 50.3 % [facility] Plt 172 150 - 400 K/cumm [facility] MPV 10.9 9.1 - 12.3 fL [facility] RBC 3.70(L) 4.30 - 5.80 M/cumm [facility] MCV 93.8 81.3 - 96.4 fL [facility] MCH 31.1 27.1 - 33.3 pg [facility] MCHC 33.1 32.3 - 35.7 g/dL [facility] RDW CV 14.9 11.1 - 14.9 % [facility] RDW SD 51.1(H) 35.7 - 48.1 fL [facility] NRBC abs 0.00 0.00 - 0.01 K/cumm [facility] Blood 09/11/2024 11:4 4 PM JOINERS SUPERVISOR 09/12/2024 12:17 AM JOINERS SUPERVISOR us Dalila Torres MD LAB BLOOD ORDERABLES Fi nal Result [facility] Department [place] [address] * Magnesium (09/11/2024 11:44 PM JOINERS SUPERVISOR) Magnesium 2.1 1.4 - 2.5 mg/dL Blood 09/11/2024 11:4 4 PM JOINERS SUPERVISOR 09/12/2024 12:17 AM JOINERS SUPERVISOR us Dalila Torres MD LAB BLOOD ORDERABLES Fi nal Result [facility] Department [place] [address] * (ABNORMAL) Basic metabolic panel (09/11/2024 11:44 PM JOINERS SUPERVISOR) [facility] Sodium 142 135 - 145 mmol/L Potassium, pl 3.5 3.3 - 4.9 mmol/L [facility] Chloride 104 97 - 110 mmol/L [facility] CO2 27 22 - 32 mmol/L [facility] Anion gap 11 2 - 15 mmol/L [facility] BUN 30(H) 6 - 25 mg/dL [facility] Creatinine 1.30 0.80 - 1.30 mg/dL [facility] Glucose 74 70 - 199 mg/dL [facility] Comment: Interpretive Data Fasting glucose >/= 126 [...] 2022. Calcium 8.8 8.5 - 10.3 mg/dL [facility] Blood 09/11/2024 11:4 4 PM JOINERS SUPERVISOR 09/12/2024 12:17 AM JOINERS SUPERVISOR us Dalila Torres MD LAB BLOOD ORDERABLES Fi nal Result Performing Organization Address [facility] Co de Phone Number [facility] Department [place] [address] * POCT glucose (09/11/2024 8:14 PM JOINERS SUPERVISOR) Glucose, POC 142 70 - 199 mg/dL Blood 09/11/2024 8:14 PM JOINERS SUPERVISOR 09/11/2024 8:14 PM JOINERS SUPERVISOR Dalila Torres MD LAB POCT ORDERABLES - D EVICE Final Result Performing Organization Address [facility]/ZIP Co de Phone Number [facility] [place] [address] * POCT glucose (09/11/2024 5:23 PM JOINERS SUPERVISOR) Pathologist [facility] Glucose, POC 91 70 - 199 mg/dL Blood 09/11/2024 5:2 3 PM JOINERS SUPERVISOR 09/11/2024 5:[address] Tai MD LAB POCT ORDERABLES - DEVICE Final Result Performing Organization Address [facility] de Phone Number [facility] [place] [address] * Troponin I high-sensitivity 4-hour (09/11/2024 3:10 PM JOINERS SUPERVISOR) [facility] Trop I hs 13 <=35 ng/L Comment: Interpretive Data For further hscTnI resources including the diagnostic algorithm and an aid in interpretation, copy and paste this link: https://bjhlab.testcatalog.org/show/hsTrop-1 Current Interpretive Data last revised 2020. Trop I hs delta -1 ng/L [facility] Trop I hs interp Insignificant [facility] Blood 09/11/2024 3:10 PM JOINERS SUPERVISOR 09/11/2024 3:22 PM JOINERS SUPERVISOR Ricki Ramirez MD LAB BLOOD ORDERABLES Final Result Performing Organization Address [facility]/ZIP Co de Phone Number [facility] [place] [address] * POCUS Cardiac (09/11/2024 1:58 PM JOINERS SUPERVISOR) Anatomical Region Laterality Modality Other 09/11/2024 1:28 PM JOINERS SUPERVISOR Narrative 09/11/2024 3:02 PM JOINERS SUPERVISOR Performed by: Jose Martin Guevara Cardiac: Exam [...] Troponin I high-sensitivity 2-hour (09/11/2024 1:30 PM JOINERS SUPERVISOR) Trop I hs 14 <=35 ng/L Comment: Interpretive Data For further hscTnI resources including the diagnostic algorithm and an aid in interpretation, copy and paste this link: https://bjhlab.testcatalog.org/show/hsTrop-1 Current Interpretive Data last revised 2020. Trop I hs delta 0 ng/L [facility] Trop I hs interp Insignificant [facility] Blood 09/11/2024 1:30 PM JOINERS SUPERVISOR 09/11/2024 2:03 PM JOINERS SUPERVISOR us Ricki Ramirez MD LAB BLOOD ORDERABLES Final Result [facility] Department [place] [address] * (ABNORMAL) Pro B-type natriuretic peptide (09/11/2024 1:30 PM JOINERS SUPERVISOR) NT-proBNP 1,193(H) <=450 pg/mL Comment: Interpretive Comments: [...] Revised Date: 2018. Blood 09/11/2024 1:30 PM JOINERS SUPERVISOR 09/11/2024 2:04 [address] SU[address]VIS[address] us [address] De Leon MD LAB BLOOD ORDERABLES Final Result Performing Organization Address City/State/[facility] Co nh Phone Number [facility] Department [place] [address] * XR Chest Pa Lateral 2 Views (09/11/2024 11:13 AM JOINERS SUPERVISOR) Anatomical Region Laterality Modality Body, Chest N/A Computed Radiogr aphy 09/11/2024 11:4 4 AM JOINERS SUPERVISOR Impressions 09/11/2024 11:44 AM JOINERS SUPERVISOR Comparison to 12/21/2023. 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 Heart and mediastinum are unchanged. There is no pneumothorax or pleural effusion. Small lung volumes with scarring in the left midlung that is similar to the prior CT. No new focal pulmonary opacity. Electronically signed by: Eric Balbuena M.D. Narrative 09/11/2024 11:44 AM JOINERS SUPERVISOR EXAMINATION: 2 view chest radiograph Procedure Note [...] (baseline, 2hr, 4hr, 6hr) (09/11/2024 11:03 AM JOINERS SUPERVISOR) Trop I hs 14 <=35 ng/L Comment: Interpretive Data For further hscTnI resources including the diagnostic algorithm and an aid in interpretation, copy and paste this link: https://bjhlab.testcatalog.org/show/hsTrop-1 Current Interpretive Data last revised 2020. Blood 09/11/2024 11:0 3 AM JOINERS SUPERVISOR 09/11/2024 11:20 AM JOINERS SUPERVISOR Joseph Lucas MD LAB BLOOD ORDERABLES Shanna l Result Performing Organization Address City/[facility]/ZIP Co de Phone Number [facility] [place] [address] * (ABNORMAL) eGFR (09/11/2024 11:03 AM JOINERS SUPERVISOR) eGFR 49(L) >=60 mL/min/1. 73 m2 Comment: [...] reviewed 2021. Blood 09/11/2024 11:0 3 AM JOINERS SUPERVISOR 09/11/2024 11:20 AM JOINERS SUPERVISOR Joseph Lucas MD LAB BLOOD ORDERABLES Shanna l Result Performing Organization Address City/[facility]/ZIP Co de Phone Number [facility] Department [place] [address] * Differential, auto (09/11/2024 11:03 AM JOINERS SUPERVISOR) Neutrophil abs 4.9 1.5 - 6.5 K/cumm Imm gran abs 0.0 0.0 - 0.1 K/cumm [facility] Lymphocyte abs 1.4 0.8 - 3.3 K/cumm [facility] Monocyte abs 0.7 0.2 - 0.8 K/cumm [facility] Eosinophil abs 0.1 0.0 - 0.5 K/cumm [facility] Basophil abs 0.0 0.0 - 0.1 K/cumm [facility] Neutrophil pct 67.9 % [facility] Comment: Interpretive Data Percent cell count reference ranges are not reported, since discordance with absolute values may lead to misinterpretation of CBC data. Current Interpretive Data was last revised on 2017. Imm gran pct 0.4 % [facility] Comment: Interpretive Data Percent cell count reference ranges are not reported, since discordance with absolute values may lead to misinterpretation of CBC data. Current Interpretive Data was last revised on 2017. Lymphocyte pct 19.8 % [facility] Comment: Interpretive Data Percent cell count reference ranges are not reported, since discordance with absolute values may lead to misinterpretation of CBC data. Current Interpretive Data was last revised on 2017. Monocyte pct 9.6 % [facility] Comment: Interpretive Data Percent cell count reference ranges are not reported, since discordance with absolute values may lead to misinterpretation of CBC data. Current Interpretive Data was last revised on 2017. Eosinophil pct 1.9 % [facility] Comment: Interpretive Data Percent cell count reference ranges are not reported, since discordance with absolute values may lead to misinterpretation of CBC data. Current Interpretive Data was last revised on 2017. Basophil pct 0.4 % [facility] Comment: Interpretive Data Percent cell count reference ranges are not reported, since discordance with absolute values may lead to misinterpretation of CBC data. Current Interpretive Data was last revised on 2017. Blood 09/11/2024 11:0 3 AM JOINERS SUPERVISOR 09/11/2024 11:20 AM JOINERS SUPERVISOR Joseph Lucas MD LAB BLOOD ORDERABLES Shanna orozco Result Performing Organization Address [facility] Co de Phone Number [facility] Department [place] [address] * (ABNORMAL) CBC with auto differential (09/11/2024 11:03 AM JOINERS SUPERVISOR) Pathologist [facility] WBC 7.3 3.8 - 9.9 K/cumm Hgb 11.0(L) 13.0 - 17.5 g/dL [facility] Hct 33.2(L) 38.9 - 50.3 % [facility] Plt 175 150 - 400 K/cumm [facility] MPV 10.6 9.1 - 12.3 fL [facility] RBC 3.51(L) 4.30 - 5.80 M/cumm [facility] MCV 94.6 81.3 - 96.4 fL [facility] MCH 31.3 27.1 - 33.3 pg [facility] MCHC 33.1 32.3 - 35.7 g/dL [facility] RDW CV 14.9 11.1 - 14.9 % [facility] RDW SD 51.4(H) 35.7 - 48.1 fL [facility] NRBC abs 0.00 0.00 - 0.01 K/cumm [facility] Blood (Blood, Venous) 09/11/2024 11:03 AM JOINERS SUPERVISOR 09/11/2024 11:20 AM JOINERS SUPERVISOR Joseph Lucas MD LAB BLOOD ORDERABLES Shanna l Result Performing Organization Address City/[facility]/ZIP Co de Phone Number [facility] Department [place] [address] * (ABNORMAL) Comprehensive metabolic panel (09/11/2024 11:03 AM JOINERS SUPERVISOR) Pathologist [facility] Sodium 142 135 - 145 mmol/L Potassium, pl 3.6 3.3 - 4.9 mmol/L [facility] Chloride 102 97 - 110 mmol/L [facility] CO2 28 22 - 32 mmol/L [facility] Anion gap 12 2 - 15 mmol/L [facility] BUN 33(H) 6 - 25 mg/dL [facility] Creatinine 1.40(H) 0.80 - 1.30 mg/dL [facility] Glucose 114 70 - 199 mg/dL [facility] Comment: Interpretive Data Fasting glucose >/= 126 [...] 2022. Calcium 8.9 8.5 - 10.3 mg/dL [facility] Bilirubin, total 0.4 0.1 - 1.2 mg/dL [facility] Protein, pl 6.9 6.5 - 8.5 g/dL [facility] Albumin 3.9 3.5 - 5.0 g/dL [facility] Alk phos 43 40 - 130 Units/L [facility] ALT 13 7 - 55 Units/L [facility] AST 24 10 - 50 Units/L [facility] Blood 09/11/2024 11:0 3 AM JOINERS SUPERVISOR 09/11/2024 11:20 AM JOINERS SUPERVISOR us Joseph Lucas MD LAB BLOOD ORDERABLES Shanna l Result [facility] Department [place] [address] * ECG 12-LEAD (09/11/2024 10:52 AM JOINERS SUPERVISOR) Narrative [facility] - 09/11/2024 10:52 AM JOINERS SUPERVISOR Hermilo Linares MD 09/11/2024 10:55 AM ECG [...] ORDERABLES Final Res ult Performing Organization Address City/[facility]/ZIP Co de Phone Number [facility] * POCT glucose (09/11/2024 10:48 AM JOINERS SUPERVISOR) Glucose, POC 112 70 - 199 mg/dL Blood 09/11/2024 10:4 8 AM JOINERS SUPERVISOR 09/11/2024 10:48 AM JOINERS SUPERVISOR us Notinfile Unknown LAB POCT ORDERABLES - DEVICE F inal Result [facility] Department [place] [address] * (ABNORMAL) eGFR (09/10/2024 12:26 PM JOINERS SUPERVISOR) eGFR 54(L) >=60 mL/min/1. 73 m2 Comment: [...] reviewed 2021. Blood 09/10/2024 12:2 6 PM JOINERS SUPERVISOR 09/10/2024 1:37 PM JOINERS SUPERVISOR us Rehan Sheth MD LAB BLOOD ORDERABLES F inal Result [facility] Department [place] [address] * (ABNORMAL) Pro B-type natriuretic peptide (09/10/2024 12:26 PM JOINERS SUPERVISOR) NT-proBNP 2,273(H) <=450 pg/mL Comment: Interpretive Comments: [...] Date: 2018. Blood 09/10/2024 12:2 6 PM JOINERS SUPERVISOR 09/10/2024 1:32 PM JOINERS SUPERVISOR Rehan Sheth MD LAB BLOOD ORDERABLES F inal Result [facility] Department [place] [address] * (ABNORMAL) Basic metabolic panel (09/10/2024 12:26 PM JOINERS SUPERVISOR) Sodium 142 135 - 145 mmol/L Potassium, pl 3.9 3.3 - 4.9 mmol/L [facility] Chloride 104 97 - 110 mmol/L [facility] CO2 28 22 - 32 mmol/L [facility] Anion gap 10 2 - 15 mmol/L [facility] BUN 31(H) 6 - 25 mg/dL [facility] Creatinine 1.29 0.80 - 1.30 mg/dL [facility] Glucose 126 70 - 199 mg/dL [facility] Comment: Interpretive Data Fasting glucose >/= 126 [...] Calcium 9.2 8.5 - 10.3 mg/dL [facility] Blood 09/10/2024 12:2 6 PM JOINERS SUPERVISOR 09/10/2024 1:32 PM JOINERS SUPERVISOR Rehan Sheth MD LAB BLOOD ORDERABLES F inal Result [facility] Department [place] [address] * ECG 12 lead (09/10/2024 11:33 AM JOINERS SUPERVISOR) Rehan Sheth MD ECG ORDERABLES Edited Result - Final * XR Scoliosis Ap and Lateral (08/26/2024 11:42 AM JOINERS SUPERVISOR) Anatomical Region Laterality Modality Spine N/A Computed Radiogr aphy 08/26/2024 12:3 0 PM JOINERS SUPERVISOR Impressions 08/26/2024 12:30 PM JOINERS SUPERVISOR 1. Mild thoracolumbar curvature with leftward coronal and anterior sagittal imbalance Electronically signed by: Mehran Sotomayor MD Narrative 08/26/2024 12:30 PM JOINERS SUPERVISOR EXAMINATION: XR SCOLIOSIS AP AND LATERAL HISTORY: [...] (ABNORMAL) Basic metabolic panel (07/30/2024 12:37 PM JOINERS SUPERVISOR) Glucose 143(H) 65 - 99 mg/dL [facility] Comment: Fasting reference interval For someone without known diabetes, a glucose value >125 mg/dL indicates that they may have diabetes and this should be confirmed with a follow-up test. BUN 22 7 - 25 mg/dL [facility] Creatinine 1.04 0.70 - 1.22 mg/dL [facility] eGFR 71 > OR = 60 mL/min/1.7 3m2 [facility] BUN/creat ratio SEE NOTE: 6 - 22 (calc) [facility] Comment: Not Reported: BUN and Creatinine are within reference range. Sodium 141 135 - 146 mmol/L [facility] Potassium, pl 4.2 3.5 - 5.3 mmol/L [facility] Chloride 103 98 - 110 mmol/L [facility] CO2 30 20 - 32 mmol/L [facility] Calcium 8.9 8.6 - 10.3 mg/dL [facility] Blood 07/30/2024 12:3 7 PM JOINERS SUPERVISOR 07/30/2024 12:38 PM JOINERS SUPERVISOR Rehan Sheth MD LAB BLOOD ORDERABLES F inal Result Performing Organization Address [facility] de Phone Number [facility] [address] [place] [address] * (ABNORMAL) Basic metabolic panel (07/16/2024 11:34 AM JOINERS SUPERVISOR) Glucose 115 65 - 139 mg/dL [employer] Comment: Non-fasting reference interval BUN 29(H) 7 - 25 mg/dL [employer] [facility] Creatinine 1.23(H) 0.70 - 1.22 mg/dL [employer] [facility] eGFR 58(L) > OR = 60 mL/min/1.7 3m2 [employer] [facility] BUN/creat ratio 24(H) 6 - 22 (calc) [employer] [facility] Sodium 138 135 - 146 mmol/L [employer] [facility] Potassium, pl 4.4 3.5 - 5.3 mmol/L [employer] [facility] Chloride 101 98 - 110 mmol/L [employer] [facility] CO2 27 20 - 32 mmol/L [employer] [facility] Calcium 8.7 8.6 - 10.3 mg/dL [employer] [facility] Blood 07/16/2024 11:3 4 AM JOINERS SUPERVISOR 07/16/2024 11:34 AM JOINERS SUPERVISOR Narrative [facility] - 07/16/2024 10:30 PM JOINERS SUPERVISOR INSURANCE VERIFIED FASTING:NO FASTING: NO Rehan Sheth MD LAB BLOOD ORDERABLES F inal Result Performing Organization Address [facility] Co de Phone Number [facility] [address] [address] * (ABNORMAL) Hemoglobin A1c (06/07/2024 8:38 AM CDT) Hgb A1C 6.1(H) 4.0 - 5.6 % Estimated Average Glucose 128 mg/dL [facility] Comment: The ADA recommends reporting an estimated Average Glucose (eAG) with all Hemoglobin A1c results using the equation derived from a study of 507 normal and diabetic adults. Minority populations were underrepresented and children were not included. (Diabetes Care 31:2252-3805, 2008). The eAG is not equivalent to a fasting glucose. Blood 06/07/2024 8:38 AM CDT 06/07/2024 9:07 AM CDT Joe Hood MD LAB BLOOD ORDER MAITE Final Result [facility] [address] [facility] Department [place] [address] * Lipid panel (06/07/2024 8:38 AM CDT) [...] ORDER MAITE Final Result [facility] [address] [facility] [place] [address] * DIABETES FOOT EXAM (11/05/2020) Diabetic Foot Exam Normal Historical Provider MD HEALTH MAINTENANCE Final Result * DIABETES EYE EXAM (05/05/2019) Diabetic Eye Exam Normal Historical Provider HEALTH MAINTENANCE Final Result from Last 3 Months or Most Recently Relevant to Health Maintenance Insurance [employer] CHOICE MEDICARE PPO MEDICARE SOLUTIONS MEDICARE SOLUTIONS Advance Directives For more information, please contact: [phone] Documents on File Type Date Recorded Patient Filleter Expl anation ADVANCE DIRECTIVE 12/27/2023 10:41 PM Jorge Villa OWER OF [employer]-MEDICAL ADVANCE DIRECTIVE 12/26/2023 10:38 AM Yazmin Medina POWER OF [employer]-FINANCIAL * Full Code (Latest Code Status on [...] Communication Jorge Pryor Spouse Health Care Agent [email or web address] Medina Daughter First Alternate Health Care Agent [email or web address] Neuroscience Director Na Relationship Specialty Start Date End Date Barry Ralph MD PCP - General Family Practice 05/22/24 Rehan Sheth MD [address] [address] Consulting Physician Cardiology 09/09/24
--- OUTSIDE RECORDS SUMMARY | 2024-10-14 18:43 | XMS_ITS | Encounter Summary ---
Author Organization [facility] Address [address] [place] [address] Phone Care Team Providers Care Production Line Worker Name Role Phone Barry Ralph MD Primary Care Provider [phone] Rehan Sheth MD Unavailable [phone] Sangita Moore RN Unavailable Reason for Visit * Reason Onset Date Comments Symptoms 10/06/2024 Encounter Details Date Type Department Care Team (Late st Contact Info) Description 10/06/2024 Telephone [facility] Cardiology [address] [facility] 8th [place] [address] [place] [address] Rehan Sheth MD [address] [facility] [address] [place] [address] Symptoms Social History Tobacco Use Types Packs/Day Years Used Date Smoking Tobacco: Never Smokeless Tobacco: Never [facility] Utilities Answer Date Recorded In the past [...] often do you attend chur ch or mandaen services? More than 4 times per year [...] Date Recorded PHQ-2 Total Score 0 09/12/2024 [facility] of Occupat ional Health - Occupational Stress [...] on file Legal Sex Male 8:23 PM SANDBLASTER SUPERVISOR Gender Identity Not on file Sexual Orientation Not on file documented as of this encounter Miscellaneous Notes * Telephone Encounter - Rehan Sheth MD - 10/06/2024 12:16 PM SANDBLASTER SUPERVISOR noted BLASTER SUPERVISOR * Telephone Encounter - Naila Cortez RN [...] picked pt and up and enroute to [facility] ER. I advisedpt go to [facility] ER, and son notes this is [facility]. I contacted ER and provided report. Will inform Dr. Sheth. BLASTER SUPERVISOR * Telephone Encounter - Karen Chi - 10/06/2024 12:00 PM CST [facility] Encounter Pt calling, she's on her way ER with pt. She thinks he is having a stroke. Can't stay awake, slurring words. Pt had stinks put in Sunday and he hasn't felt well. Pls call . BLASTER SUPERVISOR documented in this encounter Plan of Treatment Not on file documented as of this encounter Goals Goal Patient Goal Type Associated Problems Recent Progress Patient-Stated? Author CCM Chronic Pain Care Plan Chronic Care Management Improving( 10:49 AM SANDBLASTER SUPERVISOR) Nenita Sanchez, RN Note: Problem: Chronic Pain Goals: 1. Minimize further functional decline 2. Maximize quality of life 3. Control pain Strategies: - Activity/exercise program recommendation - Conservative stepwise pain medicine strategy with multi-disciplinary approach - Recommend healthy lifestyle strategies and compensatory methods as needed documented as of this encounter Visit Diagnoses Not on filedocumented in this encounter Care Teams Production Line Worker Relationship Specialty Start Date End Date Barry Ralph MD PCP - General Family Practice 05/22/24 Rehan Sheth MD [address] [facility] [address] [place] [address] Consulting Physician Cardiology 09/09/24 Sangita Moore, RN [address] [facility] [address] [place] [address] [facility] Outpatient Customer Experience Strategist 09/15/24 10/13/24 documented as of this encounter
--- OUTSIDE RECORDS SUMMARY | 2024-10-14 18:43 | XMS_ITS | Encounter Summary ---
Author Organization [facility] Healthcare Address [address] [place] [address] Care Team Providers Care Senior Medical Technologist Name Role Phone Barry Ralph MD Primary Care Provider [phone] Barry Ralph MD Primary Care Provider [phone] Rosalee Crowder DIRECT MARKETING ANALYST Unavailable Rehan Sheth MD Unavailable Sangita Moore RN Unavailable [phone] Encounter Details Date Type Department Care Team (Late st Contact Info) Description 02/26/2024 Telephone [facility] [address] [facility] [address] [place] [address] Aleksander Shankar MD [address] [place] [address] Social History Tobacco Use Types Packs/Day Years Used Date Smoking Tobacco: Never Smokeless Tobacco: Never [facility] Utilities Answer Date Recorded In the [...] often do you attend chur ch or temple services? More than 4 times per year [...] staff should administer the PHQ-9) 0 05/13/2021 [facility] of Occupat ional Health - Occupational Stress [...] to sleep or slept in a senior living (including now)? No 01/01/2024 Personal Safety Answer Date Recorded Have you ever been in or are you currently in a harmful physical or emotional relationship or is someone making you feel afraid or unsafe? Denies 12/19/2023 Sex and Gender Information Value Date Recorded Sex Assigned at Not on file Legal Sex Male 8:23 PM RN BURN Gender Identity Not on file Sexual Orientation Not on file documented as of this encounter Plan of Treatment Not on file documented as of this encounter Goals Goal Patient Goal Type Associated Problems Recent Progress Patient-Stated? Author CCM Chronic Pain Care Plan Chronic Care Management Improving( 10:49 AM RN BURN) No Nenita Santiago, RN Note: Problem: Chronic [...] to 89 09/12/2024 09/12/2024 09/19/2024 3:07 AM RN BURN documented as of this encounter Care Teams Senior Medical Technologist Relationship Specialty Start Date End Date Barry Ralph MD PCP - General Family Practice 10/20/22 05/20/24 Barry Ralph MD PCP - General Family Practice 05/22/24 Rosalee Crowder, [facility] [address] [facility] ([facility]) Mailstop [phone] [place] [address] SHOP Outpatient Airport Screener 05/22/24 06/19/24 Rehan Sheth MD [address] [facility] [address] [place] [address] Consulting Physician Cardiology 09/09/24 Sangita Moore, RN [address] [facility] [address] [place] [address] SHOP Outpatient Airport Screener 09/15/24 10/13/24 documented as of this encounter
--- OUTSIDE RECORDS SUMMARY | 2024-10-14 18:43 | XMS_ITS | Encounter Summary ---
Author Organization [facility] Healthcare Address [address] [place] [address] Care Team Providers Care Building Contractor Name Role Phone Barry Ralph MD Primary Care Provider [phone] Rehan Sheth MD Unavailable [phone] Reason for Visit * Reason Comments Successfully Completed Encounter Details Date Type Department Care Team (Late st Contact Info) Description 10/14/2024 SHOP/CHAP Subsequent Outreach [facility] OP CASE MANAGEMENT [address] [place] [address] Sangita Moore, RN [address] [facility] [address] [place] [address] Social History Tobacco Use Types Packs/Day Years Used Date Smoking Tobacco: Never Smokeless Tobacco: Never [facility] Utilities Answer Date Recorded In the past 12 months has [employer] electric, gas, oil, or water company threatened [...] any clubs o r organizations such as gnosticist groups, unions, fraternal or athletic groups, or [...] Date Recorded PHQ-2 Total Score 0 09/12/2024 [facility] - [facility]ational Stress Questionnaire Answer Date [...] any time in the past 12 m [facility], were you homeless or living in a chcf (including now)? No 09/15/2024 Personal Safety Answer Date Recorded Have you ever been in or are you currently in a harmful physical or emotional relationship or is someone making you feel afraid or unsafe? Denies 10/06/2024 Sex and Gender Information Value Date Recorded Sex Assigned at Not on file Legal Sex Male 8:23 PM LANGUAGE PATHOLOGIST Gender Identity Not on file Sexual Orientation Not on file documented as of this encounter Progress Notes * Sangita Moore RN - 10/14/2024 2:02 PM CST OCM spoke with patient's for SHOP final call. He is a little better today and color is better.He denies SOB or chest pain. Pt has completed SHOP program and no further calls are scheduled but OCM remains available for questions. UAGE PATHOLOGIST documented in this encounter Plan of Treatment Not on file documented as of this encounter Goals Goal Patient Goal Type Associated Problems Recent Progress Patient-Stated? Author CCM Chronic Pain Care Plan Chronic Care Management Improving( 10:49 AM LANGUAGE PATHOLOGIST) Nenita Sanchez, RN Note: Problem: Chronic Pain Goals: 1. Minimize further functional decline 2. Maximize quality of life 3. Control pain Strategies: - Activity/exercise program recommendation - Conservative stepwise pain medicine strategy with multi-disciplinary approach - Recommend healthy lifestyle strategies and compensatory methods as needed documented as of this encounter Visit Diagnoses Not on filedocumented in this encounter Care Teams Building Contractor Relationship Specialty Start Date End Date Barry Ralph MD PCP - General Family Practice 05/22/24 Rehan Sheth MD [address] [address] Consulting Physician Cardiology 09/09/24 documented as of this encounter
--- OUTSIDE RECORDS SUMMARY | 2024-10-15 00:30 | XMS_ITS | Referral Summary ---
Author Organization [facility] Address [address] [place] [address] Care Team Providers Care Regulatory Affairs Internship Name Role Phone Barry Ralph MD Primary Care Provider [phone] Rehan Sheth MD Unavailable [phone] Encounters Date Type Department Care Team Description 10/14/2024 SHOP/CHAP Subsequent Outreach [facility]NAGEMENT [address] [place] [address] Sangita Moore, RN 10/10/2024 SHOP/CHAP Subsequent Outreach [facility]NAG[facility] [address] [place] [phone] Sangita Moore, RN 10/08/2024 Documentation [facility] [address] [place] [phone] Yvonne Tanner RN 10/08/2024 SHOP/CHAP Subsequent Outreach [facility] CASE [facility]NAGEMENT [address] [place] [address] Sangita Moore, RN 10/07/2024 Telephone [facility] [address] [place] [address] Advanced [facility] 8th [place] [address] [place] [address] Rehan Sheth MD shortness of breath/anxiety 10/07/2024 SHOP/CHAP Subsequent Outreach [facility] CASE [facility]NAGEMENT [address] [place] [phone] Sangita Moore, RN 10/06/2024 SHOP/CHAP Subsequent Outreach [facility] CASE [facility]NAGEMENT [address] [place] [phone] Sangita Moore, RN 10/06/2024 Results Follow-Up [facility] [address] [place] [address] 8th Floor [address] [place] [phone] Amanda Chatman RN 10/06/2024 2:18 PM PORCELAIN ENAMELING SUPERVISOR - 10/06/2024 7:30 PM PORCELAIN ENAMELING SUPERVISOR Emergency [facility] [address] [place] [phone] Aneta Castellanos MD Altered mental status, unspecified altered mental status type (Primary Dx) Discharge Disposition: Discharge to home or self care 10/06/2024 Telephone [facility] [address] [place] [address] Advanced [facility] 8th [place] [address] [place] [phone] Rehan Sheth MD [facility] 10/03/2024 10:45 AM PORCELAIN ENAMELING SUPERVISOR - 10/03/2024 12:00 PM PORCELAIN ENAMELING SUPERVISOR Surgery [facility] [address] [phone] Nigel Holman MD Right Left Heart Catheterization with Coronary Angiography with or without Left Ventriculography [id number] 10/03/2024 7:50 AM PORCELAIN ENAMELING SUPERVISOR - 10/03/2024 5:48 PM PORCELAIN ENAMELING SUPERVISOR Hospital Encounter [facility] [place] [address] [place] [address] Nigel Holman MD Chest pain, unspecified type (Primary Dx); Chronic systolic heart failure (CMS/HCC) (HCC); Coronary artery disease involving [place] coronary artery of [place] heart with angina pectoris (HCC); Acute on chronic heart failure, unspecified heart failure type (HCC); Paroxysmal atrial fibrillation (CMS/HCC) (HCC); History of aortic valve replacement Discharge Disposition: Discharge to home or self care 09/30/2024 SHOP/CHAP Subsequent Outreach [facility] CASE [facility]NAGEMENT 1 [place] [address] Sangita Moore, RN 09/26/2024 SHOP/CHAP Subsequent Outreach [facility] CASE [facility]NAGEMENT [address] [place] [address] Sangita Moore RN 09/25/2024 Orders Only [facility] [address] [place] [address] [facility] 8th [place] [address] [place] [address] Naila Cortez RN High risk medications (not anticoagulants) long-term use (Primary Dx) 09/25/2024 Telephone [facility] [address] [place] [address] [place] [address] [place] [address] Rehan Sheth MD 09/24/2024 7:40 PM PORCELAIN ENAMELING SUPERVISOR Lab [facility] [address] [place] [phone] Chronic heart failure with preserved ejection fraction (CMS/HCC) (HCC) 09/24/2024 Telephone [facility] [address] [place] [address] [place] [address] [place] [address] Rehan Sheth MD cardiac cath 09/24/2024 3:15 PM PORCELAIN ENAMELING SUPERVISOR Office Visit [facility] [address] [place] [address] 8th [place] [address] [place] [address] Rehan Sheth MD Chronic heart failure with preserved ejection fraction (CMS/HCC) (HCC) (Primary Dx); History of aortic valve replacement; Benign essential hypertension; Paroxysmal atrial fibrillation (CMS/HCC) (HCC) 09/23/2024 SHOP/CHAP Subsequent Outreach [facility] CASE [facility]NAGEMENT 1 [place] [address] Sangita Moore, RN 09/17/2024 SHOP/CHAP Subsequent Outreach [facility] CASE [facility]NAGEMENT [address] [place] [address] Sangita Moore, RN 09/15/2024 SHOP/CHAP Initial Outreach [facility] CASE [facility]NAGEMENT 1 [place] [address] Sangita Moore, RN 09/15/[address] [facility] 8th [place] [address] [place] [address] Rehan Sheth MD f/u orders 09/15/2024 SHOP/CHAP Initial Eligibility Review [facility] CASE [facility]NAGEMENT [address] [place] [address] Sangita Moore, RN 09/11/2024 12:49 PM PORCELAIN ENAMELING SUPERVISOR - 09/14/2024 12:22 PM PORCELAIN ENAMELING SUPERVISOR Hospital Encounter [address] [address] Joseph Lucas MD Bardowell, Rachel Hannah, MD Baumann, Natalie Marie, MD Chest pain, unspecified type (Primary Dx) Discharge Disposition: Discharge to home or self care 09/11/2024 Documentation [facility] [address] [place] [address] [facility] 8th [place] [address] [place] [address] Rehan Sheth MD 09/11/2024 Telephone [facility] [address] [place] [address] Advanced [facility] 8th [place] [address] [place] [address] Rehan Sheth MD Symptoms update 09/10/2024 Telephone [facility] [address] [place] [address] Advanced [facility] 8th [place] [address] [place] [address] Rehan Sheth MD Cardiac Clearance request 09/10/2024 12:25 PM PORCELAIN ENAMELING SUPERVISOR Lab [facility] Advanced [facility] ([facility] [address] [place] [address] Chronic heart failure with preserved ejection fraction (CMS/HCC) (HCC) 09/10/2024 11:15 AM PORCELAIN ENAMELING SUPERVISOR Office Visit [facility] [address] [place] [address] 8th [place] [address] [place] [address] Rehan Sheth MD Chronic heart failure with preserved ejection fraction (CMS/HCC) (HCC) (Primary Dx); Coronary artery disease involving [place] coronary artery of [place] heart with angina pectoris (HCC) 09/10/2024 Telephone [facility] [address] [place] [address] 8th [place] [address] [place] [address] Rehan Sheth MD Chest symptoms 09/09/2024 Telephone [facility] [address] [place] [address] 8th [place] [address] [place] [address] Rehan Sheth MD Samples/and report of ER eval 09/01/2024 Telephone [facility] Neurosurgery [address] [place] [address] Office [facility] [address] [place] [address] Clayton Robertson DO 08/26/2024 11:32 AM PORCELAIN ENAMELING SUPERVISOR - 08/26/2024 11:59 PM PORCELAIN ENAMELING SUPERVISOR Hospital Encounter [facility] [address] [place] [address] [address] [place] [address] Lumbar spondylosis; Chronic bilateral low back pain, unspecified whether sciatica present Discharge Disposition: Discharge to home or self care 08/26/2024 12:30 PM PORCELAIN ENAMELING SUPERVISOR Office Visit [facility] [address] [place] [address] [address] [place] [address] Clayton Robertson DO 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) 08/06/2024 Orders Only [facility] [address] [place] [address] Office [address] [place] [address] [place], Clayton, DO Lumbar spondylosis (Primary Dx); Chronic bilateral low back pain, unspecified whether sciatica present from Last 3 Months Allergies No known active allergies Medications albuterol HFA (PROVENTIL HFA,VENTOLIN HFA,PROAIR HFA) 90 mcg/actuation inhaler Inhale 2 puffs as needed for shortness of breath 09/17/19 15 Active True Metrix Glucose Meter kit USE DIRECTED 1 kit 08/17/20 21 Active lancets (TasteSpace DelThe Poshpacker Plus Lancet) 30 gauge miscIndications:Typ e 2 diabetes mellitus with hyperosmolarity without coma, without long-term current use of insulin ([facility]) ([facility]) Use to check blood sugar 3x daily 300 each 2 02/01/20 22 Active blood glucose diagnostic (True Metrix Glucose Test Strip) stripIndications:Ty pe 2 diabetes mellitus with hyperosmolarity without coma, without long-term current use of insulin ([facility]) ([facility]) TEST BLOOD SUGAR EVERY DAY [...] type 09/11/2024 Coronary artery disease invo lving [place] coronary artery of [place] heart with angina pectoris 09/10/2024 Internal carotid artery stenosis, right 06/12/20 Chronic heart failure with p reserved ejection fraction ([facility]/HCC) 06/12/2024 Stage 2 chronic kidney disease 06/12/2024 Thrombocytopenia 06/12/2024 Bilateral leg weakness 06/06/2024 NSTEMI (non-ST elevated myocardial infarction) ( [facility]/HCC) 05/20/2024 Assessment & Plan (05/21/2024 11:10 AM CDT): [facility] on 05/20/2024 showed: 60-70% lesion to mid LAD (with a positive IFR of 0.78) and a 90% lesion lesion to ostial circ; RCA with a known WEATHERIZATION AND HOUSING INSPECTOR (angiography not performed). -s/p Successful PCI to [...] Plan (05/20/2024 11:34 AM CDT): Went to [facility] 05/17 for SOB, new 2L O2 requirement - OSH workup: Trp 1.95>5.1>10, proBNP 6800, CXR w/ mild interstitial edema - OSH [facility] 05/19 w/ L main widely patent, LAD proximal body 80% stenosis, LAD stent w/ moderate ISR, L cx w/ 95% stenosis in proximal body, OM branches w/ mild disease, RCA is WEATHERIZATION AND HOUSING INSPECTOR in mid body w/ L to R collaterals - cath films uploaded - OSH TTE reportedly w/ EF 50%, AV prosthesis w/o abnormal gradients - trop here 7,4861, repeat pending - currently denies chest pain or pressure, sob improving - PCI today - continue heparin drip - continue asa, coreg, atorvastatin 80mg - telemetry Assessment & Plan (05/20/2024 1:02 AM CDT): Went to [facility] 05/17 for SOB, new 2L O2 requirement - OSH workup: Trp 1.95>5.1>10, proBNP 6800, CXR w/ mild interstitial edema - OSH [facility] 05/19 w/ L main widely patent, LAD proximal body 80% stenosis, LAD stent w/ moderate ISR, L cx w/ 95% stenosis in proximal body, OM branches w/ mild disease, RCA is WEATHERIZATION AND HOUSING INSPECTOR in mid body w/ L to R [...] Assessment & Plan (05/21/2024 10:58 AM CDT): [facility] 05/17 for SOB, on 3.5L [...] Assessment & Plan (05/20/2024 11:50 AM CDT): [facility] 05/17 for SOB, on 3.5L [...] Assessment & Plan (05/20/2024 1:00 AM CDT): [facility] 05/17 for SOB, on 2L [...] Acute on chronic heart failure ([facility]) 024 Assessment & Plan (05/21/2024 [...] benefi Assessment & Plan (07/04/2024 1:02 PM PORCELAIN ENAMELING SUPERVISOR): He may just be symptomatic from [...] Assessment & Plan (03/17/2024 1:48 PM CDT): Internal Controls Analyst stenosis and 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 [...] stenosis. Assessment & Plan (07/04/2024 1:03 PM PORCELAIN ENAMELING SUPERVISOR): Failed LMBB. Assessment & Plan (04/23/2024 [...] Encounter for Medicare annual wellness exam 05/20 technician terminal and repeater (current) use of anticoagulants [Z79.0 1] 03/27/2018 Atrial fibrillation ([facility]) [I48.91] 8 Overview (09/04/2018): Dr. [...] quiescent Assessment & Plan (09/04/2018 10:33 AM PORCELAIN ENAMELING SUPERVISOR): COPD is unchanged. COPD information handout [...] to PT - wants to go to [facility]. Trial robaxin. Flexeril on med list but [...] no Assessment & Plan (10/01/2019 10:35 AM PORCELAIN ENAMELING SUPERVISOR): S2 makes a wonderfully crisp snap w/o any regurge Gastroesophageal reflux disease 09/17/2014 Tussive syncope 08/25/2014 Syncope and collapse 08/21/2014 Syncope 08/21/2014 Type 2 diabetes mellitus 07/10/2014 Overview (05/13/2021): Was on levemir but stopped 2015 then on trulicity so on metformin ALONE We had better control w/ Jardiance -since he has been w/ Dr Stockton [phone] has been on Actose and metformin- Off [...] heart- Assessment & Plan (10/01/2019 10:30 AM PORCELAIN ENAMELING SUPERVISOR): His A1C has crept to 7.5% [...] covered Assessment & Plan (09/04/2018 10:42 AM PORCELAIN ENAMELING SUPERVISOR): Diabetes is worsening. Continue current treatment regimen. Reminded to bring in blood sugar diary at next visit. Dietary recommendations for ADA diet. Regular aerobic exercise. Discussed foot care. Reminded to get yearly retinal exam. Diabetes will be reassessed in 3 months. Given his financial concerns my advice is to use food as Tango medicine Obesity with body mass index 30 or greater 07/09 Generalized anxiety disorder 07/09/2014 Assessment & Plan (10/01/2019 10:32 AM PORCELAIN ENAMELING SUPERVISOR): He gets along nicely w/ a [...] 07/27/2017 02/22/2018 Paroxysmal atrial fibrillation ([facility]/HCC) 07/02/2017 09/04/2018 Overview (02/22/2018): Was on NOAC [...] Tobacco: Never Tobacco Cessation:Counseling Given: Not Answered [facility] i-markerities Answer Date Recorded In the past 12 months has th e [employer], gas, oil, or water company threatened to [...] week 09/15/2024 How often do you attend [facility] or catholic services? More than 4 times per year 09/15/2024 Do you belong to any clubs o r organizations such as faith groups, unions, fraternal or athletic groups, or [...] Date Recorded PHQ-2 Total Score 0 09/12/2024 [facility] - Occupational Stress [...] any time in the past 12 m [facility], were you homeless or [...] on file Legal Sex Male 8:23 PM PORCELAIN ENAMELING SUPERVISOR Gender Identity Not on file Sexual Orientation Not on file Last Filed Vital Signs Vital Sign Reading Time Taken Comments Blood Pressure 113/56 10/06/2024 6:55 PM PORCELAIN ENAMELING SUPERVISOR Pulse 66 10/06/2024 6:55 PM PORCELAIN ENAMELING SUPERVISOR Temperature 36.6 C (97.9 F) 10/06/2024 12:33 PM PORCELAIN ENAMELING SUPERVISOR Respiratory Rate 10 10/06/2024 6:55 PM PORCELAIN ENAMELING SUPERVISOR Oxygen Saturation 96% 10/06/2024 6:55 PM PORCELAIN ENAMELING SUPERVISOR Inhaled Oxygen Concentration - - Weight 99.8 kg (220 lb) 10/06/2024 12:33 PM PORCELAIN ENAMELING SUPERVISOR Height 182.9 cm (6') 10/06/2024 12:33 PM PORCELAIN ENAMELING SUPERVISOR Body Mass Index 29.84 10/06/2024 12:33 PM PORCELAIN ENAMELING SUPERVISOR Plan of Treatment Not on file Goals Goal Patient Goal Type Associated Problems Recent Progress Patient-Stated? Author CCM Chronic Pain Care Plan Chronic Care Management Improving( 10:49 AM PORCELAIN ENAMELING SUPERVISOR) Nenita Sanchez, RN Note: Problem: Chronic Pain Goals: 1. Minimize further functional decline 2. Maximize quality of life 3. Control pain Strategies: - Activity/exercise program recommendation - Conservative stepwise pain medicine strategy with multi-disciplinary approach - Recommend healthy lifestyle strategies and compensatory methods as needed Medical Devices Implanted Type Area Block Hand Device Identifier Shelf Expiration Date Model / Serial / Lot TerumMirriad Medical Branden Angio-Seal Vip Bondek-Plus 8fr .038in 70cm Hemostatic Latex Free [id number] - [id number] - [id number] Implanted:Qty : 1 on 05/20/2024 by Papo Rascon MD at [facility] Collagen Right: Common Femoral Artery Terumo Medical Branden 12/10/2024 [id number] / [id number] / [id number] Prosthetic Valve Prosthetic Valve Heart Description:Heart Valve Medtronic Card Vasc Surgery 4.0 X 12mm Shar [place] Rx Coronary Stent [id number] - [id number] - [id number] Implanted:Qty : 1 on 05/20/2024 by Vitor Pedroza MD at [facility] Stent N/A: Circumflex Coronary Artery Medtronic Card Vasc Surgery 01/11/2027 [id number] / [id number] / [id number] Medtronic Card Vasc Surgery 4.0 X 12mm Shar [place] Rx Coronary Stent [id number] - [id number] - [id number] Implanted:Qty : 1 on 05/20/2024 by Vitor Pedroza MD at [facility] Stent Left: Anterior Descending Cornary Artery Medtronic Card Vasc Surgery 11/14/2026 [id number] / [id number] / [id number] Medtronic Card Vasc Surgery 4.0 X 18mm Prentice [place] Rx Coronary Stent [id number] - [id number] - [id number] Implanted:Qty : 1 on 10/03/2024 by Nigel Holman MD at [facility] Stent Left: Anterior Descending Cornary Artery Medtronic Card Vasc Surgery 04/14/2027 [id number] / [id number] / [id number] Description:Adrian TO lad Procedures Procedure Name Priority Date/Time Associated Diagnosis Comments URINALYSIS, MICROSCOPIC ONLY STAT 10/06/2024 5:51 PM PORCELAIN ENAMELING SUPERVISOR URINALYSIS AND REFLEX TO MICROSCOPIC STAT 10/06/2024 5:51 PM PORCELAIN ENAMELING SUPERVISOR COMPREHENSIVE METABOLIC PANEL Routine 10/06/2024 3:59 PM PORCELAIN ENAMELING SUPERVISOR EGFR Routine 10/06/2024 3:59 PM PORCELAIN ENAMELING SUPERVISOR VITAMIN B12 Routine 10/06/2024 3:59 PM PORCELAIN ENAMELING SUPERVISOR TSH Routine 10/06/2024 3:59 PM PORCELAIN ENAMELING SUPERVISOR CBC WITHOUT DIFFERENTIAL Routine 10/06/2024 3:59 PM PORCELAIN ENAMELING SUPERVISOR RESPIRATORY PATHOGEN PANEL STAT 10/06/2024 3:59 PM PORCELAIN ENAMELING SUPERVISOR CT HEAD WO CONTRAST ED 10/06/2024 3 :37 PM PORCELAIN ENAMELING SUPERVISOR XR CHEST PA LATERAL 2 VIEWS ED 10/06/2024 3:30 PM PORCELAIN ENAMELING SUPERVISOR ECG 12-LEAD STAT 10/06/2024 1:07 PM PORCELAIN ENAMELING SUPERVISOR POCT GLUCOSE DEVICE Routine 10/06/2024 12:48 PM PORCELAIN ENAMELING SUPERVISOR EGFR Routine 10/03/2024 4:00 PM PORCELAIN ENAMELING SUPERVISOR DIFFERENTIAL AUTO Routine 10/03/2024 4:0 0 PM PORCELAIN ENAMELING SUPERVISOR CBC WITH AUTO DIFFERENTIAL Routine 10/03/2024 4:00 PM PORCELAIN ENAMELING SUPERVISOR BASIC METABOLIC PANEL Routine 10/03/2024 4:00 PM PORCELAIN ENAMELING SUPERVISOR POCT ACTIVATED CLOTTING TIME, LOW RANGE Routine 10/03/2024 2:14 PM PORCELAIN ENAMELING SUPERVISOR RIGHT AND LEFT HEART CATHETERIZATION Routine 10/03/2024 12:42 PM PORCELAIN ENAMELING SUPERVISOR Chronic systolic heart failure (CMS/HCC) (HCC) Coronary artery disease involving [place] coronary artery of [place] heart with angina pectoris (HCC) Acute on chronic heart failure, unspecified heart failure type (HCC) Paroxysmal atrial fibrillation (CMS/HCC) (HCC) History of aortic valve replacement POCT ACTIVATED CLOTTING TIME, LOW RANGE Routine 10/03/2024 12:42 PM PORCELAIN ENAMELING SUPERVISOR TYPE AND SCREEN Timed 10/03/2024 12:20 PM PORCELAIN ENAMELING SUPERVISOR POCT ACTIVATED CLOTTING TIME, LOW RANGE Routine 10/03/2024 12:06 PM PORCELAIN ENAMELING SUPERVISOR POCT OXYHEMOGLOBIN - DEVICE Routine 10/03/2024 11:47 AM PORCELAIN ENAMELING SUPERVISOR POCT OXYHEMOGLOBIN - DEVICE Routine 10/03/2024 11:45 AM PORCELAIN ENAMELING SUPERVISOR CBC WITHOUT DIFFERENTIAL Routine 10/03/2024 11:45 AM PORCELAIN ENAMELING SUPERVISOR POCT OXYHEMOGLOBIN - DEVICE Routine 10/03/2024 11:44 AM PORCELAIN ENAMELING SUPERVISOR POCT GLUCOSE DEVICE Routine 10/03/2024 8 :45 AM PORCELAIN ENAMELING SUPERVISOR BASIC METABOLIC PANEL Routine 09/29/2024 9:42 AM PORCELAIN ENAMELING SUPERVISOR High risk medications (not anticoagulants) long-term use EGFR Routine 09/24/2024 5:03 PM PORCELAIN ENAMELING SUPERVISOR Chronic heart failure with preserved ejection fraction (CMS/HCC) (HCC) DIFFERENTIAL AUTO Routine 09/24/2024 5:0 3 PM PORCELAIN ENAMELING SUPERVISOR Chronic heart failure with preserved ejection fraction (CMS/HCC) (HCC) BASIC METABOLIC PANEL Routine 09/24/2024 5:03 PM PORCELAIN ENAMELING SUPERVISOR Chronic heart failure with preserved ejection fraction (CMS/HCC) (HCC) PRO B-TYPE NATRIURETIC PEPTIDE Routine 09/24/2024 5:03 PM PORCELAIN ENAMELING SUPERVISOR Chronic heart failure with preserved ejection fraction (CMS/HCC) (HCC) CBC WITH AUTO DIFFERENTIAL Routine 09/24/2024 5:03 PM PORCELAIN ENAMELING SUPERVISOR Chronic heart failure with preserved ejection fraction (CMS/HCC) (HCC) ECG 12-LEAD Routine 09/24/2024 4:01 PM PORCELAIN ENAMELING SUPERVISOR History of aortic valve replacement EGFR STAT 09/14/2024 8:23 AM PORCELAIN ENAMELING SUPERVISOR BASIC METABOLIC PANEL STAT 09/14/2024 8:23 AM PORCELAIN ENAMELING SUPERVISOR EGFR Routine 09/13/2024 9:57 PM PORCELAIN ENAMELING SUPERVISOR CBC WITHOUT DIFFERENTIAL Routine 09/13/2024 9:57 PM PORCELAIN ENAMELING SUPERVISOR MAGNESIUM Routine 09/13/2024 9:57 PM PORCELAIN ENAMELING SUPERVISOR BASIC METABOLIC PANEL Routine 09/13/2024 9:57 PM PORCELAIN ENAMELING SUPERVISOR EGFR Routine 09/12/2024 8:13 PM PORCELAIN ENAMELING SUPERVISOR CBC WITHOUT DIFFERENTIAL Routine 09/12/2024 8:13 PM PORCELAIN ENAMELING SUPERVISOR MAGNESIUM Routine 09/12/2024 8:13 PM PORCELAIN ENAMELING SUPERVISOR BASIC METABOLIC PANEL Routine 09/12/2024 8:13 PM PORCELAIN ENAMELING SUPERVISOR SODIUM, URINE, RANDOM Routine 09/12/2024 12:36 PM PORCELAIN ENAMELING SUPERVISOR POCT GLUCOSE DEVICE Routine 09/12/2024 7 :52 AM PORCELAIN ENAMELING SUPERVISOR POCT GLUCOSE DEVICE Routine 09/12/2024 6 :21 AM PORCELAIN ENAMELING SUPERVISOR POCT GLUCOSE DEVICE Routine 09/12/2024 2 :15 AM PORCELAIN ENAMELING SUPERVISOR EGFR Routine 09/11/2024 11:44 PM PORCELAIN ENAMELING SUPERVISOR CBC WITHOUT DIFFERENTIAL Routine 09/11/2024 11:44 PM PORCELAIN ENAMELING SUPERVISOR MAGNESIUM Routine 09/11/2024 11:44 PM PORCELAIN ENAMELING SUPERVISOR BASIC METABOLIC PANEL Routine 09/11/2024 11:44 PM PORCELAIN ENAMELING SUPERVISOR POCT GLUCOSE DEVICE Routine 09/11/2024 8 :14 PM PORCELAIN ENAMELING SUPERVISOR POCT GLUCOSE DEVICE Routine 09/11/2024 5 :23 PM PORCELAIN ENAMELING SUPERVISOR TROPONIN I HIGH-SENSITIVITY 4-HOUR Timed 09/11/2024 3:10 PM PORCELAIN ENAMELING SUPERVISOR POCUS CARDIAC 09/11/2024 1:58 PM PORCELAIN ENAMELING SUPERVISOR PRO B-TYPE NATRIURETIC PEPTIDE STAT 09/11/2024 1:30 PM PORCELAIN ENAMELING SUPERVISOR TROPONIN I HIGH-SENSITIVITY 2-HOUR Timed 09/11/2024 1:30 PM PORCELAIN ENAMELING SUPERVISOR XR CHEST PA LATERAL 2 VIEWS ED 09/11/2024 11:13 AM PORCELAIN ENAMELING SUPERVISOR EGFR STAT 09/11/2024 11:03 AM PORCELAIN ENAMELING SUPERVISOR DIFFERENTIAL AUTO STAT 09/11/2024 11:03 AM PORCELAIN ENAMELING SUPERVISOR TROPONIN I HIGH-SENSITIVITY SERIES (BASELINE, 2HR, 4HR, 6HR) STAT 09/11/2024 11:03 AM PORCELAIN ENAMELING SUPERVISOR COMPREHENSIVE METABOLIC PANEL STAT 09/11/2024 11:03 AM PORCELAIN ENAMELING SUPERVISOR CBC WITH AUTO DIFFERENTIAL STAT 09/11/2024 11:03 AM PORCELAIN ENAMELING SUPERVISOR ECG 12-LEAD STAT 09/11/2024 10:52 AM PORCELAIN ENAMELING SUPERVISOR POCT GLUCOSE DEVICE Routine 09/11/2024 10:48 AM PORCELAIN ENAMELING SUPERVISOR EGFR Routine 09/10/2024 12:26 PM PORCELAIN ENAMELING SUPERVISOR Chronic heart failure with preserved ejection fraction (CMS/HCC) (HCC) PRO B-TYPE NATRIURETIC PEPTIDE Routine 09/10/2024 12:26 PM PORCELAIN ENAMELING SUPERVISOR Chronic heart failure with preserved ejection fraction (CMS/HCC) (HCC) BASIC METABOLIC PANEL Routine 09/10/2024 12:26 PM PORCELAIN ENAMELING SUPERVISOR Chronic heart failure with preserved ejection fraction (CMS/HCC) (HCC) ECG 12-LEAD Routine 09/10/2024 11:33 AM PORCELAIN ENAMELING SUPERVISOR Chronic heart failure with preserved ejection fraction (CMS/HCC) (HCC) XR SCOLIOSIS AP LAT Schedule Routine, Read Routine (OP Routine) 08/26/2024 11:42 AM PORCELAIN ENAMELING SUPERVISOR Lumbar spondylosis Chronic bilateral low back pain, unspecified whether sciatica present BASIC METABOLIC PANEL Routine 07/30/2024 12:37 PM PORCELAIN ENAMELING SUPERVISOR High risk medications (not anticoagulants) long-term use BASIC METABOLIC PANEL Routine 07/16/2024 11:34 AM PORCELAIN ENAMELING SUPERVISOR High risk medications (not anticoagulants) long-term use HEMOGLOBIN A1C Routine 06/07/2024 8:38 AM CDT LIPID PANEL Routine 06/07/2024 8:38 AM CDT DIABETES FOOT EXAM Routine 11/05/2020 DIABETES EYE EXAM Routine 05/05/2019 from Last 3 Months or Most Recently Relevant to Health Maintenance Results * (ABNORMAL) Urinalysis reflex to microscopic (10/06/2024 5:51 PM PORCELAIN ENAMELING SUPERVISOR) Color, ur Straw Yellow Clarity, ur Clear Clear [facility] Specific gravity, ur 1.010 1.003 - 1.030 [facility] pH, urine 6.0 [facility] Comment: Interpretive Data U rine pH is affected by diet, medications, systemic acid-base disturbances, and renal tubular function. pH may affect urinary stone formation. For example, urine pH below 6.0 may help reduce the tendency for calcium phosphate stones and pH greater than 6.0 may reduce the tendency for uric acid stone formation. Source: [facility] [employer] Current Interpretive Data was last revised on 2017 Protein, ur ql Negative Negative [facility] Glucose, ur ql Negative Negative [facility] Ketones, ur Negative Negative [facility] Bilirubin, ur Negative Negative [facility] Blood, ur Negative Negative [facility] Urobilinogen, ur <2.0 <2.0 mg/dL [facility] Nitrite, ur Negative Negative [facility] Leukocyte esterase, ur Trace(A) Negative [facility] UA reflex comment Reflex to microscopic UA will be performed. [facility] Urine 10/06/2024 5:51 PM [employer]ORCELAIN ENAMELING SUPERVISOR 10/06/2024 5:58 PM [employer] ENAMELING SUPERVISOR Aneta Castellanos MD LAB URINE ORDERABLES Final R esult Performing Organization Address City/[facility] Co de Phone Number [facility] [place] [address] * (ABNORMAL) Urinalysis, microscopic only (10/06/2024 5:51 PM PORCELAIN ENAMELING SUPERVISOR) WBC, ur 0-5 0 - 5 /HPF RBC, ur 0-2 0 - 2 /HPF [facility] Epithelial cells, squamous, ur 1-5 0 - 5 /HPF [facility] Epithelial cells, transitional, ur 1-5 0 - 0 /HPF [facility] Bacteria, ur Trace(A) [facility] Mucous, ur Present(A) [facility] Hyaline casts, ur 6-10 0 - 10 /LPF [facility] Urine 10/06/2024 5:51 PM P[employer]CEL[employer] ENAMELING SUPERVISOR 10/06/2024 5:58 PM [employer]CEL[employer] ENAMELING SUPERVISOR Aneta Castellanos MD LAB URINE ORDERABLES Final R esult Performing Organization Address [facility] Co de Phone Number [facility] [place] [address] * eGFR (10/06/2024 3:59 PM PORCELAIN ENAMELING SUPERVISOR) eGFR 64 >=60 mL/min/1. 73 m2 Comment: [...] last reviewed 2021. Blood 10/06/2024 3:59 PM PORCELAIN ENAMELING SUPERVISOR 10/06/2024 4:26 PM P[employer]CEL[employer] ENAMELING SUPERVISOR Aneta Castellanos MD LAB BLOOD ORDERABLES Final R esult [facility] [place] [address] * Respiratory pathogen panel Nasopharyngeal (10/06/2024 3:59 PM PORCELAIN ENAMELING SUPERVISOR) Pathologist [facility] Influenza A RNA Not Detected Not Detected Influenza B RNA Not Detected Not Detected [facility] RSV RNA Not Detected Not Detected [facility] COVID-19 RNA Not Detected Not Detected [facility] Coronavirus 229E RNA Not Detected Not Detected [facility] Coronavirus HKU1 RNA Not Detected Not Detected [facility] Coronavirus NL63 RNA Not Detected Not Detected [facility] Coronavirus OC43 RNA Not Detected Not Detected [facility] Adenovirus DNA Not Detected Not Detected [facility] Metapneumovirus RNA Not Detected Not Detected [facility] Rhinovirus/Enterov irus RNA Not Detected Not Detected [facility] Parainfluenza 1 RNA Not Detected Not Detected [facility] Parainfluenza 2 RNA Not Detected Not Detected [facility] Parainfluenza 3 RNA Not Detected Not Detected [facility] Parainfluenza 4 RNA Not Detected Not Detected [facility] B. pertussis DNA Not Detected Not Detected [facility] B. parapertussis DNA Not Detected Not Detected [facility] C. pneumoniae DNA Not Detected Not Detected [facility] M. pneumoniae DNA Not Detected Not Detected [facility] Nasopharyngeal 10/06/2024 3: 59 PM P[employer]CELAIN ENAMELING SUPERVISOR 10/06/2024 4:19 PM PORCELAIN ENAMELING SUPERVISOR Narrative [facility] - 10/06/2024 6:14 PM P[employer]CELAIN ENAMELING SUPERVISOR Is the Patient experiencing symptoms consistent with COVID?->No Surveillance testing for transplant patient?->No Interpretive Data The [employer] FilmArray Respiratory Panel (RP2.1) assay is a [...] assay has FDA clearance for testing of [employer]ENT swabs. The performance of additional specimen types has been assessed by the performing laboratory. The performance characteristics of this assay have been determined by [facility] Molecular Infectious Disease Laboratory. Current interpretive data was last revised on 22. us Oralia Cummings MD LAB MICROBIOLOGY - GENERAL OR DERABLES Final Result Performing Organization Address [facility] Co de Phone Number [facility] Department [place] [address] * (ABNORMAL) CBC without differential (10/06/2024 3:59 PM PORCELAIN ENAMELING SUPERVISOR) Pathologist [facility] WBC 6.8 3.8 - 9.9 K/cumm Hgb 11.5(L) 13.0 - 17.5 g/dL [facility] Hct 34.1(L) 38.9 - 50.3 % [facility] Plt 162 150 - 400 K/cumm [facility] MPV 11.4 9.1 - 12.3 fL [facility] RBC 3.72(L) 4.30 - 5.80 M/cumm [facility] MCV 91.7 81.3 - 96.4 fL [facility] MCH 30.9 27.1 - 33.3 pg [facility] MCHC 33.7 32.3 - 35.7 g/dL [facility] RDW CV 14.7 11.1 - 14.9 % [facility] RDW SD 49.6(H) 35.7 - 48.1 fL [facility] NRBC abs 0.00 0.00 - 0.01 K/cumm [facility] Blood 10/06/2024 3:59 PM P[employer] ENAMELING SUPERVISOR 10/06/2024 4:26 PM P[employer] ENAMELING SUPERVISOR us Priscilla Sarmiento MD LAB BLOOD ORDERABLES Final R esult Performing Organization Address City/[facility]/ZIP Co de Phone Number [facility] [place] [address] * TSH (10/06/2024 3:59 PM P[employer]CEL[employer] ENAMELING SUPERVISOR) Pathologist [facility] Thyroid Stimulating Hormone 3.88 0.30 - 4.20 mcIUnit/mL Blood 10/06/2024 3:59 PM P[employer] ENAMELING SUPERVISOR 10/06/2024 4:09 PM P[employer] ENAMELING SUPERVISOR us Oralia Cummings MD LAB BLOOD ORDERABLES Final Re sult Performing Organization Address City/[facility]/ZIP Co de Phone Number [facility] Department [place] [address] * Vitamin B12 (10/06/2024 3:59 PM PORCELAIN ENAMELING SUPERVISOR) [facility] Vitamin B12 420 230 - 1,250 pg/mL Blood 10/06/2024 3:59 PM P[employer]CELAIN ENAMELING SUPERVISOR 10/06/2024 4:09 PM PORCELAIN ENAMELING SUPERVISOR us Oralia Cummings MD LAB BLOOD ORDERABLES Final Re sult Performing Organization Address [facility] Co de Phone Number [facility] Department [place] [address] * (ABNORMAL) Comprehensive metabolic panel (10/06/2024 3:59 PM PORCELAIN ENAMELING SUPERVISOR) [facility] Sodium 143 135 - 145 mmol/L Potassium, pl 4.3 3.3 - 4.9 mmol/L [facility] Chloride 104 97 - 110 mmol/L [facility] CO2 26 22 - 32 mmol/L [facility] Anion gap 13 2 - 15 mmol/L [facility] BUN 26(H) 6 - 25 mg/dL [facility] Creatinine 1.12 0.80 - 1.30 mg/dL [facility] Glucose 94 70 - 199 mg/dL [facility] Comment: Interpretive Data Fasting glucose >/= 126 [...] 2022. Calcium 9.1 8.5 - 10.3 mg/dL [facility] Bilirubin, total 0.4 0.1 - 1.2 mg/dL [facility] Protein, pl 7.1 6.5 - 8.5 g/dL [facility] Albumin 3.9 3.5 - 5.0 g/dL [facility] Alk phos 45 40 - 130 Units/L [facility] ALT 15 7 - 55 Units/L [facility] AST 37 10 - 50 Units/L [facility] Blood 10/06/2024 3:59 PM P[employer]CEL[employer] ENAMELING SUPERVISOR 10/06/2024 4:09 PM P[employer]AIN ENAMELING SUPERVISOR us Aneta Castellanos MD LAB BLOOD ORDERABLES Final R esult [facility] [place] [address] * CT Head WO Contrast (10/06/2024 3:37 PM P[employer] ENAMELING SUPERVISOR) Anatomical Region Laterality Modality Head and Neck N/A Computed Tomogra phy 10/06/2024 4:29 PM P[employer]CELAIN ENAMELING SUPERVISOR Impressions 10/06/2024 4:41 PM [employer] ENAMELING SUPERVISOR No acute intracranial hemorrhage, large vessel territory infarction, mass effect, or midline shift. Dictated by: Nikolas Vega M.D. The radiology attending physician has personally reviewed this study, and had reviewed and/or edited this written report and agrees with it. Electronically signed by: Johnny Ballesteros M.D, PHD Narrative 10/06/2024 4:41 PM P[employer]CELAIN ENAMELING SUPERVISOR EXAMINATION: CT head without contrast HISTORY: [...] PA Lateral 2 Views (10/06/2024 3:30 PM PORCELAIN ENAMELING SUPERVISOR) Anatomical Region Laterality Modality Body, Chest N/A Computed Radiogr aphy 10/06/2024 3:42 PM PORCELAIN ENAMELING SUPERVISOR Impressions 10/06/2024 3:49 PM P[employer]CELAIN ENAMELING SUPERVISOR Comparison with chest radiograph dated 07/12/2025. [...] Luna Perez M.D. Narrative 10/06/2024 3:49 PM PORCELAIN ENAMELING SUPERVISOR EXAMINATION: 2 view chest radiograph Procedure [...] lt * ECG 12-LEAD (10/06/2024 1:07 PM PORCELAIN ENAMELING SUPERVISOR) Narrative [facility] - 10/06/2024 1:07 PM P[employer]CELAIN ENAMELING SUPERVISOR Nupur Orozco MD 10/06/2024 1:08 PM ECG 12 lead Date/Time: 10/06/2024 1:07 PM Performed by: Nupur Orozco MD Authorized by: Jaylen Petersen MD Comments: EKG Interpretation Interpreted by ED physician in absence of a wildlife conservationist Ventricular rate: 65 bpm Rhythm: sinus with PACs [place]: Normal Intervals: 1st degree av block, wide QRS Other findings: no acute ischemia Interpretation: abnormal EKG, LBBB, ectopy Compared to priors: no priors for comparison us Aneta Castellanos MD ECG ORDERABLES Final Result [facility] * POCT glucose (10/06/2024 12:48 PM PORCELAIN ENAMELING SUPERVISOR) Glucose, POC 112 70 - 199 mg/dL Blood 10/06/2024 12:4 8 PM PORCELAIN ENAMELING SUPERVISOR 10/06/2024 12:48 PM PORCELAIN ENAMELING SUPERVISOR Notinfile Unknown LAB POCT ORDERABLES - DEVICE F inal Result Performing Organization Address City/[facility] Co de Phone Number [facility] [place] [address] * eGFR (10/03/2024 4:00 PM P[employer]AIN ENAMELING SUPERVISOR) eGFR 73 >=60 mL/min/1. 73 m2 [...] last reviewed 2021. Blood 10/03/2024 4:00 PM P[employer]CELAIN ENAMELING SUPERVISOR 10/03/2024 4:23 PM PORCELAIN ENAMELING SUPERVISOR us Crescencio Vázquez MD LAB BLOOD ORDERABLES Final Resul t Performing Organization Address [facility] Co de Phone Number [facility] [place] [address] * Differential, auto (10/03/2024 4:00 PM P[employer]AIN ENAMELING SUPERVISOR) Neutrophil abs 3.7 1.5 - 6.5 K/cumm Imm gran abs 0.0 0.0 - 0.1 K/cumm [facility] Lymphocyte abs 1.5 0.8 - 3.3 K/cumm [facility] Monocyte abs 0.4 0.2 - 0.8 K/cumm [facility] Eosinophil abs 0.2 0.0 - 0.5 K/cumm [facility] Basophil abs 0.0 0.0 - 0.1 K/cumm [facility] Neutrophil pct 63.5 % [facility] Comment: Interpretive Data Percent cell count reference ranges are not reported, since discordance with absolute values may lead to misinterpretation of CBC data. Current Interpretive Data was last revised on 2017. Imm gran pct 0.3 % [facility] Comment: Interpretive Data Percent cell count reference ranges are not reported, since discordance with absolute values may lead to misinterpretation of CBC data. Current Interpretive Data was last revised on 2017. Lymphocyte pct 26.0 % [facility] Comment: Interpretive Data Percent cell count reference ranges are not reported, since discordance with absolute values may lead to misinterpretation of CBC data. Current Interpretive Data was last revised on 2017. Monocyte pct 7.1 % [facility] Comment: Interpretive Data Percent cell count reference ranges are not reported, since discordance with absolute values may lead to misinterpretation of CBC data. Current Interpretive Data was last revised on 2017. Eosinophil pct 2.6 % [facility] Comment: Interpretive Data Percent cell count reference ranges are not reported, since discordance with absolute values may lead to misinterpretation of CBC data. Current Interpretive Data was last revised on 2017. Basophil pct 0.5 % [facility] Comment: Interpretive Data Percent cell count reference ranges are not reported, since discordance with absolute values may lead to misinterpretation of CBC data. Current Interpretive Data was last revised on 2017. Blood 10/03/2024 4:00 PM P[employer]CEL[employer] ENAMELING SUPERVISOR 10/03/2024 4:18 PM PORCELAIN ENAMELING SUPERVISOR us Crescencio Vázquez MD LAB BLOOD ORDERABLES Final Resul t [facility] Department [place] [address] * (ABNORMAL) CBC with auto differential (10/03/2024 4:00 PM P[employer]CEL[employer] ENAMELING SUPERVISOR) WBC 5.8 3.8 - 9.9 K/cumm Hgb 10.8(L) 13.0 - 17.5 g/dL [facility] Hct 32.5(L) 38.9 - 50.3 % [facility] Plt 143(L) 150 - 400 K/cumm [facility] MPV 11.6 9.1 - 12.3 fL [facility] RBC 3.54(L) 4.30 - 5.80 M/cumm [facility] MCV 91.8 81.3 - 96.4 fL [facility] MCH 30.5 27.1 - 33.3 pg [facility] MCHC 33.2 32.3 - 35.7 g/dL [facility] RDW CV 14.4 11.1 - 14.9 % [facility] RDW SD 48.6(H) 35.7 - 48.1 fL [facility] NRBC abs 0.00 0.00 - 0.01 K/cumm [facility] Blood 10/03/2024 4:00 PM P[employer]CEL[employer] ENAMELING SUPERVISOR 10/03/2024 4:18 PM PORCELAIN ENAMELING SUPERVISOR us Crescencio Vázquez MD LAB BLOOD ORDERABLES Final Resul t [facility] [place] [address] * Basic metabolic panel (10/03/2024 4:00 PM PORCELAIN ENAMELING SUPERVISOR) Sodium 142 135 - 145 mmol/L Potassium, pl 3.8 3.3 - 4.9 mmol/L [facility] Chloride 104 97 - 110 mmol/L [facility] CO2 28 22 - 32 mmol/L [facility] Anion gap 10 2 - 15 mmol/L [facility] BUN 17 6 - 25 mg/dL [facility] Creatinine 1.01 0.80 - 1.30 mg/dL [facility] Glucose 179 70 - 199 mg/dL [facility] Comment: Interpretive Data Fasting glucose >/= 126 [...] 2022. Calcium 8.5 8.5 - 10.3 mg/dL [facility] Blood 10/03/2024 4:00 PM PORCELAIN ENAMELING SUPERVISOR 10/03/2024 4:18 PM P[employer]CELAIN ENAMELING SUPERVISOR us Crescencio Vázquez MD LAB BLOOD ORDERABLES Final Resul t Performing Organization Address City/[facility]/ZIP Co de Phone Number [facility] [place] [employer] [place] [address] * (ABNORMAL) POCT Activated clotting time, low range (10/03/2024 2:14 PM PORCELAIN ENAMELING SUPERVISOR) ACT 181(H) 123 - 168 sec POC Performer [id number] [facility] POC Device Number [id number] [facility] Blood 10/03/2024 2:14 PM P[employer]CELAIN ENAMELING SUPERVISOR 10/03/2024 2:14 PM P[employer]CELAIN ENAMELING SUPERVISOR us Nigel Holman MD LAB POCT ORDERABLES - DEVICE Final Result Performing Organization Address [facility] Co de Phone Number [facility] [place] [address] * RIGHT AND LEFT HEART CATHETERIZATION (10/03/2024 12:42 PM P[employer]CELAIN ENAMELING SUPERVISOR) Anatomical Region Laterality Modality X-Ray Angiograph y Impressions 10/03/2024 2:26 PM P[employer]CELAIN ENAMELING SUPERVISOR Severe stenosis of the mid LAD [...] Nigel Holman MD Narrative 10/03/2024 2:26 PM P[employer] ENAMELING SUPERVISOR Table formatting from the original result was not included. Procedure: CORONARY ANGIOGRAM / RIGHT HEART CATHETERIZATION/ percutaneous coronary intervention Patient: Ashkan Pryor is a 84 y.o. male : 1940 MR number: [id number] Date of Service: 10/03/2024 Floor Tiling Professional: Nigel Holman MD Fellow: Crescencio Vázquez MD [...] obtained. The patient was brought to the labor operator and placed on the table Bilateral groins [...] performed Right heart catheterization preformed with 7 Italian arrow [place] [facility] At the end of the procedure, arteriotomy [...] vasodilators and reimage that showed some slight uatsdin of flow. Upon review it looks as [...] clotting time, low range (10/03/2024 12:42 PM PORCELAIN ENAMELING SUPERVISOR) ACT 252(H) 123 - 168 sec POC Performer [id number] [facility] POC Device Number [id number] [facility] Blood 10/03/2024 12:4 2 PM P[employer]CEL[employer] ENAMELING SUPERVISOR 10/03/2024 12:42 PM P[employer]CELAIN ENAMELING SUPERVISOR Nigel Holman MD LAB POCT ORDERABLES - DEVICE Final Result Performing Organization Address [facility] Co de Phone Number [facility] [place] [place] [address] * Type and screen (10/03/2024 12:20 PM P[employer]CELAIN ENAMELING SUPERVISOR) Lit, indirect Negative ABO Rh A Positive [facility] Blood 10/03/2024 12:2 0 PM P[employer]CEL[employer] ENAMELING SUPERVISOR 10/03/2024 12:39 PM P[employer]CELAIN ENAMELING SUPERVISOR Narrative [facility] - 10/03/2024 1:32 PM P[employer]CELAIN ENAMELING SUPERVISOR Has the patient had Daratumumab or Isatuximab in the past 6 months?->Unknown Nigel Holman MD LAB BLOOD BANK TEST ORDERABL ES Final Result Performing Organization Address [facility] Co de Phone Number [facility] [place] [address] * (ABNORMAL) POCT Activated clotting time, low range (10/03/2024 12:06 PM PORCELAIN ENAMELING SUPERVISOR) ACT 240(H) 123 - 168 sec POC Performer [id number] [facility] POC Device Number [id number] [facility] Blood 10/03/2024 12:0 6 PM PORCELAIN ENAMELING SUPERVISOR 10/03/2024 12:06 PM PORCELAIN ENAMELING SUPERVISOR us Nigel Holman MD LAB POCT ORDERABLES - DEVICE Final Result Performing Organization Address City/[facility] Co de Phone Number [facility] [place] [address] * (ABNORMAL) POCT oxyhemoglobin (10/03/2024 11:47 AM P[employer]CELAIN ENAMELING SUPERVISOR) METAL SPRAYER Oxyhemoglobin 95.3 >=65.0 % [employer] Hemoglobin 11.7(L) 13.0 - 17.5 g/dL [facility] METAL SPRAYER O2 content 15.5 15.0 - 22.0 Vol % [facility] Anatomic Site aPOC Aorta descend [facility] Blood 10/03/2024 11:4 7 AM PORCELAIN ENAMELING SUPERVISOR 10/03/2024 11:47 AM PORCELAIN ENAMELING SUPERVISOR us Nigel Holman MD LAB POCT ORDERABLES - DEVICE Final Result Performing Organization Address [facility] Co de Phone Number [facility] [place] [address] * (ABNORMAL) POCT oxyhemoglobin (10/03/2024 11:45 AM PORCELAIN ENAMELING SUPERVISOR) [employer] SPR[employer]ER Oxyhemoglobin 67.9 >=65.0 % [employer] Hemoglobin 11.0(L) 13.0 - 17.5 g/dL [facility] METAL SPRAYER O2 content 10.4(L) 15.0 - 22.0 Vol % [facility] Anatomic Site aPOC Pulm Art main [facility] Blood 10/03/2024 11:4 5 AM P[employer]CELAIN ENAMELING SUPERVISOR 10/03/2024 11:45 AM P[employer]CELAIN ENAMELING SUPERVISOR Nigel Holman MD LAB POCT ORDERABLES - DEVICE Final Result Performing Organization Address City/[facility] Co de Phone Number [facility] [place] [address] * (ABNORMAL) CBC without differential (10/03/2024 11:45 AM PORCELAIN ENAMELING SUPERVISOR) [facility] WBC 6.8 3.8 - 9.9 K/cumm Hgb 11.3(L) 13.0 - 17.5 g/dL [facility] Hct 34.2(L) 38.9 - 50.3 % [facility] Plt 142(L) 150 - 400 K/cumm [facility] MPV 11.3 9.1 - 12.3 fL [facility] RBC 3.65(L) 4.30 - 5.80 M/cumm [facility] MCV 93.7 81.3 - 96.4 fL [facility] MCH 31.0 27.1 - 33.3 pg [facility] MCHC 33.0 32.3 - 35.7 g/dL [facility] RDW CV 14.1 11.1 - 14.9 % [facility] RDW SD 49.1(H) 35.7 - 48.1 fL [facility] NRBC abs 0.00 0.00 - 0.01 K/cumm [facility] Blood 10/03/2024 11:4 5 AM P[employer]CELAIN ENAMELING SUPERVISOR 10/03/2024 11:51 AM P[employer]CELAIN ENAMELING SUPERVISOR Narrative [facility] - 10/03/2024 12:12 PM P[employer]CELAIN ENAMELING SUPERVISOR To be drawn after hydration bolus complete Nigel Holman MD LAB BLOOD ORDERABLES Final R esult [facility] [place] [address] * (ABNORMAL) POCT oxyhemoglobin (10/03/2024 11:44 AM PORCELAIN ENAMELING SUPERVISOR) [facility] METAL SPRAYER Oxyhemoglobin 69.1 >=65.0 % [employer] Hemoglobin 11.3(L) 13.0 - 17.5 g/dL [facility] METAL SPRAYER O2 content 10.9(L) 15.0 - 22.0 Vol % [facility] Anatomic Site aPOC Pulm Art main [facility] Blood 10/03/2024 11:4 4 AM PORCELAIN ENAMELING SUPERVISOR 10/03/2024 11:44 AM PORCELAIN ENAMELING SUPERVISOR Nigel Holman MD LAB POCT ORDERABLES - DEVICE Final Result Performing Organization Address City/[facility] Co de Phone Number [facility] [place] [address] * POCT glucose (10/03/2024 8:45 AM PORCELAIN ENAMELING SUPERVISOR) Glucose, POC 117 70 - 199 mg/dL Blood 10/03/2024 8:45 AM P[employer]CELAIN ENAMELING SUPERVISOR 10/03/2024 8:45 AM PORCELAIN ENAMELING SUPERVISOR Nigel Holman MD LAB POCT ORDERABLES - DEVICE Final Result Performing Organization Address [facility] de Phone Number [facility] [place] [address] * Basic metabolic panel (09/29/2024 9:42 AM PORCELAIN ENAMELING SUPERVISOR) Glucose 99 65 - 99 mg/dL [facility] [...] Diagnostics-S t Rich Blood 09/29/2024 9:42 AM PORCELAIN ENAMELING SUPERVISOR 09/29/2024 9:42 AM PORCELAIN ENAMELING SUPERVISOR Rehan Sheth MD LAB BLOOD ORDERABLES F inal Result [facility] [address] [place] [address] * (ABNORMAL) eGFR (09/24/2024 5:03 PM PORCELAIN ENAMELING SUPERVISOR) eGFR 55(L) >=60 mL/min/1. 73 m2 [...] last reviewed 2021. Blood 09/24/2024 5:03 PM PORCELAIN ENAMELING SUPERVISOR 09/24/2024 5:24 PM PORCELAIN ENAMELING SUPERVISOR us Rehan Sheth MD LAB BLOOD ORDERABLES F inal Result [facility] [place] [address] * Differential, auto (09/24/2024 5:03 PM PORCELAIN ENAMELING SUPERVISOR) Neutrophil abs 3.6 1.5 - 6.5 K/cumm Imm gran abs 0.0 0.0 - 0.1 K/cumm [facility] Lymphocyte abs 1.9 0.8 - 3.3 K/cumm [facility] Monocyte abs 0.6 0.2 - 0.8 K/cumm [facility] Eosinophil abs 0.2 0.0 - 0.5 K/cumm [facility] Basophil abs 0.0 0.0 - 0.1 K/cumm [facility] Neutrophil pct 56.5 % [facility] Comment: Interpretive Data Percent cell count reference ranges are not reported, since discordance with absolute values may lead to misinterpretation of CBC data. Current Interpretive Data was last revised on 2017. Imm gran pct 0.6 % [facility] Comment: Interpretive Data Percent cell count reference ranges are not reported, since discordance with absolute values may lead to misinterpretation of CBC data. Current Interpretive Data was last revised on 2017. Lymphocyte pct 30.0 % [facility] Comment: Interpretive Data Percent cell count reference ranges are not reported, since discordance with absolute values may lead to misinterpretation of CBC data. Current Interpretive Data was last revised on 2017. Monocyte pct 9.1 % [facility] Comment: Interpretive Data Percent cell count reference ranges are not reported, since discordance with absolute values may lead to misinterpretation of CBC data. Current Interpretive Data was last revised on 2017. Eosinophil pct 3.3 % [facility] Comment: Interpretive Data Percent cell count reference ranges are not reported, since discordance with absolute values may lead to misinterpretation of CBC data. Current Interpretive Data was last revised on 2017. Basophil pct 0.5 % [facility] Comment: Interpretive Data Percent cell count reference ranges are not reported, since discordance with absolute values may lead to misinterpretation of CBC data. Current Interpretive Data was last revised on 2017. Blood 09/24/2024 5:03 PM [employer] E[employer]ELING SUPERVISOR 09/24/2024 5:24 PM [employer]EL[employer] SUPERVISOR us Rehan Sheth MD LAB BLOOD ORDERABLES F inal Result [facility] One [facility] [place] [address] * (ABNORMAL) Pro B-type natriuretic peptide (09/24/2024 5:03 PM [employer]ELING SUPERVISOR) NT-proBNP 2,036(H) <=450 pg/mL Comment: Interpretive [...] Revised Date: 2018. Blood 09/24/2024 5:03 PM [employer] E[employer]ELING SUPERVISOR 09/24/2024 5:24 PM [employer]ELING SUPERVISOR Rehan Sheth MD LAB BLOOD ORDERABLES F inal Result [facility] One [facility] [place] [address] * (ABNORMAL) CBC with auto differential (09/24/2024 5:03 PM [employer] E[employer]ELING SUPERVISOR) [facility] WBC 6.3 3.8 - 9.9 K/cumm Hgb 11.7(L) 13.0 - 17.5 g/dL [facility] Hct 35.3(L) 38.9 - 50.3 % [facility] Plt 184 150 - 400 K/cumm [facility] MPV 11.3 9.1 - 12.3 fL [facility] RBC 3.76(L) 4.30 - 5.80 M/cumm [facility] MCV 93.9 81.3 - 96.4 fL [facility] MCH 31.1 27.1 - 33.3 pg [facility] MCHC 33.1 32.3 - 35.7 g/dL [facility] RDW CV 14.6 11.1 - 14.9 % [facility] RDW SD 50.4(H) 35.7 - 48.1 fL [facility] NRBC abs 0.00 0.00 - 0.01 K/cumm [facility] Blood 09/24/2024 5:03 PM [employer] E[employer]ELING SUPERVISOR 09/24/2024 5:24 PM [employer]ELING SUPERVISOR Rehan Sheth MD LAB BLOOD ORDERABLES F inal Result Performing Organization Address City/State/[facility] Co de Phone Number [facility] One [facility] [place] [address] * (ABNORMAL) Basic metabolic panel (09/24/2024 5:03 PM [employer]ELING SUPERVISOR) Sodium 145 135 - 145 mmol/L Potassium, pl 3.7 3.3 - 4.9 mmol/L [facility] Chloride 107 97 - 110 mmol/L [facility] CO2 30 22 - 32 mmol/L [facility] Anion gap 8 2 - 15 mmol/L [facility] BUN 31(H) 6 - 25 mg/dL [facility] Creatinine 1.27 0.80 - 1.30 mg/dL [facility] Glucose 89 70 - 199 mg/dL [facility] Comment: Interpretive Data Fasting glucose >/= 126 [...] Calcium 9.0 8.5 - 10.3 mg/dL [facility] Blood 09/24/2024 5:03 PM [employer]ELING SUPERVISOR 09/24/2024 5:24 PM [employer]ELING SUPERVISOR Rehan Sheth MD LAB BLOOD ORDERABLES F inal Result [facility] One [facility] [place] [address] * ECG 12 lead (09/24/2024 4:01 PM [employer] E[employer]ELING SUPERVISOR) Rehan Sheth MD ECG ORDERABLES Edited Result - Final * eGFR (09/14/2024 8:23 AM P[employer] E[employer]ELING SUPERVISOR) eGFR 63 >=60 mL/min/1. 73 m2 Comment: [...] last reviewed 2021. Blood 09/14/2024 8:23 AM P[employer]CEL[employer] ENAMELING SUPERVISOR 09/14/2024 8:45 AM P[employer]CEL[employer] ENAMELING SUPERVISOR Dalila Torres MD LAB BLOOD ORDERABLES Fi nal Result Performing Organization Address City/[facility]/ZIP Co de Phone Number [facility] [place] [address] * (ABNORMAL) Basic metabolic panel (09/14/2024 8:23 AM P[employer] E[employer]ELING SUPERVISOR) Pathologist [facility] Sodium 140 135 - 145 mmol/L Potassium, pl 4.0 3.3 - 4.9 mmol/L [facility] Chloride 104 97 - 110 mmol/L [facility] CO2 27 22 - 32 mmol/L [facility] Anion gap 9 2 - 15 mmol/L [facility] BUN 28(H) 6 - 25 mg/dL [facility] Creatinine 1.14 0.80 - 1.30 mg/dL [facility] Glucose 108 70 - 199 mg/dL [facility] Comment: Interpretive Data Fasting glucose >/= 126 [...] 2022. Calcium 8.8 8.5 - 10.3 mg/dL [facility] Blood 09/14/2024 8:23 AM P[employer]CEL[employer] ENAMELING SUPERVISOR 09/14/2024 8:45 AM P[employer] ENAMELING SUPERVISOR us Dalila Torres MD LAB BLOOD ORDERABLES Fi nal Result Performing Organization Address [facility]/ZIP Co de Phone Number [facility] Department [place] [address] * (ABNORMAL) eGFR (09/13/2024 9:57 PM [employer] E[employer]ELING SUPERVISOR) Pathologist [facility] eGFR 49(L) >=60 mL/min/1. 73 m2 [...] last reviewed 2021. Blood 09/13/2024 9:57 PM [employer] ENAMELING SUPERVISOR 09/13/2024 10:27 PM [employer]ELING SUPERVISOR us Dalila Torres MD LAB BLOOD ORDERABLES Fi nal Result [facility] One [facility] [place] [address] * (ABNORMAL) CBC without differential (09/13/2024 9:57 PM [employer] E[employer]ELING SUPERVISOR) WBC 6.4 3.8 - 9.9 K/cumm Hgb 11.1(L) 13.0 - 17.5 g/dL [facility] Hct 33.4(L) 38.9 - 50.3 % [facility] Plt 152 150 - 400 K/cumm [facility] MPV 11.2 9.1 - 12.3 fL [facility] RBC 3.53(L) 4.30 - 5.80 M/cumm [facility] MCV 94.6 81.3 - 96.4 fL [facility] MCH 31.4 27.1 - 33.3 pg [facility] MCHC 33.2 32.3 - 35.7 g/dL [facility] RDW CV 14.9 11.1 - 14.9 % [facility] RDW SD 52.3(H) 35.7 - 48.1 fL [facility] NRBC abs 0.00 0.00 - 0.01 K/cumm [facility] Blood 09/13/2024 9:57 PM [employer] E[employer]ELING SUPERVISOR 09/13/2024 10:27 PM [employer]ELING SUPERVISOR Dalila Torres MD LAB BLOOD ORDERABLES Fi nal Result Performing Organization Address City/[facility]/ZIP Co de Phone Number [facility] Department [place] [address] * Magnesium (09/13/2024 9:57 PM [employer]ELING SUPERVISOR) [facility] Magnesium 2.1 1.4 - 2.5 mg/dL Blood 09/13/2024 9:57 PM [employer] E[employer]ELING SUPERVISOR 09/13/2024 10:27 PM [employer]ELING SUPERVISOR Dalila Torres MD LAB BLOOD ORDERABLES Fi nal Result Performing Organization Address [facility] de Phone Number [facility] Department [place] [address] * (ABNORMAL) Basic metabolic panel (09/13/2024 9:57 PM P[employer] ENAMELING SUPERVISOR) [facility] Sodium 139 135 - 145 mmol/L Potassium, pl 3.7 3.3 - 4.9 mmol/L [facility] Chloride 102 97 - 110 mmol/L [facility] CO2 28 22 - 32 mmol/L [facility] Anion gap 9 2 - 15 mmol/L [facility] BUN 35(H) 6 - 25 mg/dL [facility] Creatinine 1.41(H) 0.80 - 1.30 mg/dL [facility] Glucose 126 70 - 199 mg/dL [facility] Comment: Interpretive Data Fasting glucose >/= 126 [...] Calcium 8.7 8.5 - 10.3 mg/dL [facility] Blood 09/13/2024 9:57 PM [employer]ELING SUPERVISOR 09/13/2024 10:27 PM [employer]ELING SUPERVISOR Dalila Torres MD LAB BLOOD ORDERABLES Fi nal Result Performing Organization Address City/[facility]/ZIP Co de Phone Number [facility] [place] [address] * (ABNORMAL) eGFR (09/12/2024 8:13 PM [employer]ELING SUPERVISOR) eGFR 51(L) >=60 mL/min/1. 73 m2 Comment: [...] last reviewed 2021. Blood 09/12/2024 8:13 PM P[employer] ENAMELING SUPERVISOR 09/12/2024 8:55 PM [employer] E[employer]ELING SUPERVISOR us Dalila Torres MD LAB BLOOD ORDERABLES Fi nal Result Performing Organization Address City/[facility]/ZIP Co de Phone Number [facility] [place] [address] * (ABNORMAL) CBC without differential (09/12/2024 8:13 PM P[employer] ENAMELING SUPERVISOR) [facility] WBC 7.4 3.8 - 9.9 K/cumm Hgb 11.0(L) 13.0 - 17.5 g/dL [facility] Hct 33.7(L) 38.9 - 50.3 % [facility] Plt 181 150 - 400 K/cumm [facility] MPV 11.1 9.1 - 12.3 fL [facility] RBC 3.60(L) 4.30 - 5.80 M/cumm [facility] MCV 93.6 81.3 - 96.4 fL [facility] MCH 30.6 27.1 - 33.3 pg [facility] MCHC 32.6 32.3 - 35.7 g/dL [facility] RDW CV 14.8 11.1 - 14.9 % [facility] RDW SD 51.2(H) 35.7 - 48.1 fL [facility] NRBC abs 0.00 0.00 - 0.01 K/cumm [facility] Blood 09/12/2024 8:13 PM P[employer] E[employer]ELING SUPERVISOR 09/12/2024 8:54 PM [employer] E[employer]ELING SUPERVISOR Dalila Torres MD LAB BLOOD ORDERABLES Fi nal Result Performing Organization Address [facility] de Phone Number [facility] [place] [address] * Magnesium (09/12/2024 8:13 PM PORCEL[employer] ENAMELING SUPERVISOR) [facility] Magnesium 2.0 1.4 - 2.5 mg/dL Blood 09/12/2024 8:13 PM P[employer] ENAMELING SUPERVISOR 09/12/2024 8:55 PM [employer] E[employer]ELING SUPERVISOR Dalila Torres MD LAB BLOOD ORDERABLES Fi nal Result Performing Organization Address [facility] Co de Phone Number [facility] Department [place] [address] * (ABNORMAL) Basic metabolic panel (09/12/2024 8:13 PM P[employer] ENAMELING SUPERVISOR) Sodium 141 135 - 145 mmol/L Potassium, pl 3.8 3.3 - 4.9 mmol/L [facility] Chloride 106 97 - 110 mmol/L [facility] CO2 26 22 - 32 mmol/L [facility] Anion gap 9 2 - 15 mmol/L [facility] BUN 31(H) 6 - 25 mg/dL [facility] Creatinine 1.37(H) 0.80 - 1.30 mg/dL [facility] Glucose 102 70 - 199 mg/dL [facility] Comment: Interpretive Data Fasting glucose >/= 126 [...] 2022. Calcium 8.4(L) 8.5 - 10.3 mg/dL [facility] Blood 09/12/2024 8:13 PM P[employer] ENAMELING SUPERVISOR 09/12/2024 8:55 PM P[employer] E[employer]ELING SUPERVISOR us Dalila Torres MD LAB BLOOD ORDERABLES nal Result [facility] One [facility] [place] [address] * Sodium, urine, random (09/12/2024 12:36 PM [employer]ELING SUPERVISOR) Sodium, ur 72 mmol/L Comment: Interpretive Data No reference range established. Current interpretive data was last revised 2018. Urine 09/12/2024 12:3 6 PM [employer] E[employer]ELING SUPERVISOR 09/12/2024 4:22 PM P[employer] E[employer]ELING SUPERVISOR us Dalila Torres MD LAB URINE ORDERABLES Fi nal Result [facility] [place] [address] * POCT glucose (09/12/2024 7:52 AM P[employer]CEL[employer] ENAMELING SUPERVISOR) Glucose, POC 103 70 - 199 mg/dL Blood 09/12/2024 7:52 AM P[employer]CEL[employer] ENAMELING SUPERVISOR 09/12/2024 7:52 AM P[employer] ENAMELING SUPERVISOR us Dalila Torres MD LAB POCT ORDERABLES - D EVICE Final Result Performing Organization Address [facility] Co de Phone Number [facility] [place] [address] * POCT glucose (09/12/2024 6:21 AM P[employer] ENAMELING SUPERVISOR) Glucose, POC 92 70 - 199 mg/dL Blood 09/12/2024 6:21 AM P[employer] ENAMELING SUPERVISOR 09/12/2024 6:21 AM P[employer] ENAMELING SUPERVISOR us Dalila Torres MD LAB POCT ORDERABLES - D EVICE Final Result Performing Organization Address [facility] Co de Phone Number [facility] [place] [address] * POCT glucose (09/12/2024 2:15 AM P[employer] ENAMELING SUPERVISOR) Glucose, POC 178 70 - 199 mg/dL Blood 09/12/2024 2:15 AM P[employer]CELAIN ENAMELING SUPERVISOR 09/12/2024 2:15 AM P[employer]CEL[employer] ENAMELING SUPERVISOR us Dalila Torres MD LAB POCT ORDERABLES - D EVICE Final Result Performing Organization Address City/[facility]/ZIP Co de Phone Number [facility] [place] [address] * (ABNORMAL) eGFR (09/11/2024 11:44 PM [employer] ENAMELING SUPERVISOR) [facility] eGFR 54(L) >=60 mL/min/1. 73 m2 Comment: [...] reviewed 2021. Blood 09/11/2024 11:4 4 PM [employer] ENAMELING SUPERVISOR 09/12/2024 12:17 AM P[employer] ENAMELING SUPERVISOR us Dalila Torres MD LAB BLOOD ORDERABLES Fi nal Result [facility] One [facility] Department [place] [address] * (ABNORMAL) CBC without differential (09/11/2024 11:44 PM P[employer] ENAMELING SUPERVISOR) [facility] WBC 7.1 3.8 - 9.9 K/cumm Hgb 11.5(L) 13.0 - 17.5 g/dL [facility] Hct 34.7(L) 38.9 - 50.3 % [facility] Plt 172 150 - 400 K/cumm [facility] MPV 10.9 9.1 - 12.3 fL [facility] RBC 3.70(L) 4.30 - 5.80 M/cumm [facility] MCV 93.8 81.3 - 96.4 fL [facility] MCH 31.1 27.1 - 33.3 pg [facility] MCHC 33.1 32.3 - 35.7 g/dL [facility] RDW CV 14.9 11.1 - 14.9 % [facility] RDW SD 51.1(H) 35.7 - 48.1 fL [facility] NRBC abs 0.00 0.00 - 0.01 K/cumm [facility] Blood 09/11/2024 11:4 4 PM [employer] E[employer]ELING SUPERVISOR 09/12/2024 12:17 AM P[employer] E[employer]ELING SUPERVISOR Dalila Torres MD LAB BLOOD ORDERABLES Fi nal Result Performing Organization Address City/[facility]/ZIP Co de Phone Number [facility] [place] [address] * Magnesium (09/11/2024 11:44 PM [employer] ENAMELING SUPERVISOR) [facility] Magnesium 2.1 1.4 - 2.5 mg/dL Blood 09/11/2024 11:4 4 PM [employer] ENAMELING SUPERVISOR 09/12/2024 12:17 AM P[employer] ENAMELING SUPERVISOR Dalila Torres MD LAB BLOOD ORDERABLES Fi nal Result Performing Organization Address City/[facility] Co de Phone Number [facility] Department [place] [address] * (ABNORMAL) Basic metabolic panel (09/11/2024 11:44 PM P[employer] ENAMELING SUPERVISOR) [facility] Sodium 142 135 - 145 mmol/L Potassium, pl 3.5 3.3 - 4.9 mmol/L [facility] Chloride 104 97 - 110 mmol/L [facility] CO2 27 22 - 32 mmol/L [facility] Anion gap 11 2 - 15 mmol/L [facility] BUN 30(H) 6 - 25 mg/dL [facility] Creatinine 1.30 0.80 - 1.30 mg/dL [facility] Glucose 74 70 - 199 mg/dL [facility] Comment: Interpretive Data Fasting glucose >/= 126 [...] 2022. Calcium 8.8 8.5 - 10.3 mg/dL [facility] Blood 09/11/2024 11:4 4 PM [employer] ENAMELING SUPERVISOR 09/12/2024 12:17 AM P[employer] ENAMELING SUPERVISOR us Dalila Torres MD LAB BLOOD ORDERABLES Fi nal Result Performing Organization Address [facility] Co de Phone Number [facility] [place] [address] * POCT glucose (09/11/2024 8:14 PM [employer] ENAMELING SUPERVISOR) Glucose, POC 142 70 - 199 mg/dL Blood 09/11/2024 8:14 PM [employer] ENAMELING SUPERVISOR 09/11/2024 8:14 PM P[employer] ENAMELING SUPERVISOR us Dalila Torres MD LAB POCT ORDERABLES - D EVICE Final Result Performing Organization Address [facility] Co de Phone Number [facility] [place] [address] * POCT glucose (09/11/2024 5:23 PM P[employer] ENAMELING SUPERVISOR) Glucose, POC 91 70 - 199 mg/dL Blood 09/11/2024 5:23 PM P[employer]CEL[employer] ENAMELING SUPERVISOR 09/11/2024 5:23 PM PORCELAIN ENAMELING SUPERVISOR us Ave Tai MD LAB POCT ORDERABLES - DEVICE Final Result Performing Organization Address [facility] Co de Phone Number [facility] [place] [address] * Troponin I high-sensitivity 4-hour (09/11/2024 3:10 PM [employer] E[employer]ELING SUPERVISOR) Trop I hs 13 <=35 ng/L Comment: Interpretive Data For further hscTnI resources including the diagnostic algorithm and an aid in interpretation, copy and paste this link: https://bjhlab.testcatalog.org/show/hsTrop-1 Current Interpretive Data last revised 2020. Trop I hs delta -1 ng/L [facility] Trop I hs interp Insignificant CERNER BJ Blood 09/11/2024 3:10 PM P[employer] ENAMELING SUPERVISOR 09/11/2024 3:22 PM P[employer] E[employer]ELING SUPERVISOR us Ricki Ramirez MD LAB BLOOD ORDERABLES Final Result [facility] One [facility] [place] [address] * POCUS Cardiac (09/11/2024 1:58 PM [employer] ENAMELING SUPERVISOR) Anatomical Region Laterality Modality Other 09/11/2024 1:28 PM [employer] ENAMELING SUPERVISOR Narrative 09/11/2024 3:02 PM [employer] ENAMELING SUPERVISOR Performed by: Jose Martin Guevara Cardiac: [...] Troponin I high-sensitivity 2-hour (09/11/2024 1:30 PM [employer] ENAMELING SUPERVISOR) Trop I hs 14 <=35 ng/L Comment: Interpretive Data For further hscTnI resources including the diagnostic algorithm and an aid in interpretation, copy and paste this link: https://bjhlab.testcatalog.org/show/hsTrop-1 Current Interpretive Data last revised 2020. Trop I hs delta 0 ng/L [facility] Trop I hs interp Insignificant CERNER BJ H Blood 09/11/2024 1:30 PM P[employer]CEL[employer] ENAMELING SUPERVISOR 09/11/2024 2:03 PM [employer] E[employer]ELING SUPERVISOR us Ricki Ramirez MD LAB BLOOD ORDERABLES Final Result [facility] One [facility] Department of Laboratories [place], [place] [id number] * (ABNORMAL) Pro B-type natriuretic peptide (09/11/2024 1:30 PM [employer] E[employer]ELING SUPERVISOR) NT-proBNP 1,193(H) <=450 pg/mL Comment: Interpretive [...] Revised Date: 2018. Blood 09/11/2024 1:30 PM P[employer] ENAMELING SUPERVISOR 09/11/2024 2:04 PM PORCELAIN ENAMELING SUPERVISOR us Ave De Leon MD LAB BLOOD ORDERABLES Final Result Performing Organization Address City/State/[facility] Co wy Phone Number [facility] One [facility] [place] [address] * XR Chest Pa Lateral 2 Views (09/11/2024 11:13 AM P[employer] ENAMELING SUPERVISOR) Anatomical Region Laterality Modality Body, Chest N/A Computed Radiogr aphy 09/11/2024 11:4 4 AM [employer] ENAMELING SUPERVISOR Impressions 09/11/2024 11:44 AM [employer] ENAMELING SUPERVISOR Comparison to 12/21/2023. 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 Heart and mediastinum are unchanged. There is no pneumothorax or pleural effusion. Small lung volumes with scarring in the left midlung that is similar to the prior CT. No new focal pulmonary opacity. Electronically signed by: Eric Balbuena M.D. Narrative 09/11/2024 11:44 AM P[employer]CELAIN ENAMELING SUPERVISOR EXAMINATION: 2 view chest radiograph Procedure [...] (baseline, 2hr, 4hr, 6hr) (09/11/2024 11:03 AM P[employer] ENAMELING SUPERVISOR) Pathologist [facility] Trop I hs 14 <=35 ng/L Comment: Interpretive Data For further [facility] resources including the diagnostic algorithm and an aid in interpretation, copy and paste this link: https://bjhlab.testcatalog.org/show/hsTrop-1 Current Interpretive Data last revised 2020. Blood 09/11/2024 11:0 3 AM [employer]CEL[employer] ENAMELING SUPERVISOR 09/11/2024 11:20 AM [employer] ENAMELING SUPERVISOR Joseph Lucas MD LAB BLOOD ORDERABLES Shanna l Result [facility] One [facility] Department [place] [address] * (ABNORMAL) eGFR (09/11/2024 11:03 AM P[employer]CEL[employer] ENAMELING SUPERVISOR) Pathologist [facility] eGFR 49(L) >=60 mL/min/1. 73 m2 [...] reviewed 2021. Blood 09/11/2024 11:0 3 AM P[employer]CEL[employer] ENAMELING SUPERVISOR 09/11/2024 11:20 AM P[employer] ENAMELING SUPERVISOR us Joseph Lucas MD LAB BLOOD ORDERABLES Shanna orozco Result [facility] One [facility] [place] [address] * Differential, auto (09/11/2024 11:03 AM P[employer] ENAMELING SUPERVISOR) Neutrophil abs 4.9 1.5 - 6.5 K/cumm Imm gran abs 0.0 0.0 - 0.1 K/cumm [facility] Lymphocyte abs 1.4 0.8 - 3.3 K/cumm [facility] Monocyte abs 0.7 0.2 - 0.8 K/cumm [facility] Eosinophil abs 0.1 0.0 - 0.5 K/cumm [facility] Basophil abs 0.0 0.0 - 0.1 K/cumm [facility] Neutrophil pct 67.9 % [facility] Comment: Interpretive Data Percent cell count reference ranges are not reported, since discordance with absolute values may lead to misinterpretation of CBC data. Current Interpretive Data was last revised on 2017. Imm gran pct 0.4 % [facility] Comment: Interpretive Data Percent cell count reference ranges are not reported, since discordance with absolute values may lead to misinterpretation of CBC data. Current Interpretive Data was last revised on 2017. Lymphocyte pct 19.8 % [facility] Comment: Interpretive Data Percent cell count reference ranges are not reported, since discordance with absolute values may lead to misinterpretation of CBC data. Current Interpretive Data was last revised on 2017. Monocyte pct 9.6 % [facility] Comment: Interpretive Data Percent cell count reference ranges are not reported, since discordance with absolute values may lead to misinterpretation of CBC data. Current Interpretive Data was last revised on 2017. Eosinophil pct 1.9 % [facility] Comment: Interpretive Data Percent cell count reference ranges are not reported, since discordance with absolute values may lead to misinterpretation of CBC data. Current Interpretive Data was last revised on 2017. Basophil pct 0.4 % [facility] Comment: Interpretive Data Percent cell count reference ranges are not reported, since discordance with absolute values may lead to misinterpretation of CBC data. Current Interpretive Data was last revised on 2017. Blood 09/11/2024 11:0 3 AM P[employer]CEL[employer] ENAMELING SUPERVISOR 09/11/2024 11:20 AM P[employer]EL[employer] ENAMELING SUPERVISOR us Joseph Lucas MD LAB BLOOD ORDERABLES Shanna orozco Result [facility] One [facility] [place] [address] * (ABNORMAL) CBC with auto differential (09/11/2024 11:03 AM P[employer]CEL[employer] ENAMELING SUPERVISOR) WBC 7.3 3.8 - 9.9 K/cumm Hgb 11.0(L) 13.0 - 17.5 g/dL [facility] Hct 33.2(L) 38.9 - 50.3 % [facility] Plt 175 150 - 400 K/cumm [facility] MPV 10.6 9.1 - 12.3 fL [facility] RBC 3.51(L) 4.30 - 5.80 M/cumm [facility] MCV 94.6 81.3 - 96.4 fL [facility] MCH 31.3 27.1 - 33.3 pg [facility] MCHC 33.1 32.3 - 35.7 g/dL [facility] RDW CV 14.9 11.1 - 14.9 % [facility] RDW SD 51.4(H) 35.7 - 48.1 fL [facility] NRBC abs 0.00 0.00 - 0.01 K/cumm [facility] Blood (Blood, Venous) 09/11/2024 11:03 AM P[employer]CEL[employer] ENAMELING SUPERVISOR 09/11/2024 11:20 AM P[employer]CEL[employer] ENAMELING SUPERVISOR us Joseph Lucas MD LAB BLOOD ORDERABLES Shanna l Result [facility] One [facility] [place] [address] * (ABNORMAL) Comprehensive metabolic panel (09/11/2024 11:03 AM P[employer]CEL[employer] ENAMELING SUPERVISOR) Sodium 142 135 - 145 mmol/L Potassium, pl 3.6 3.3 - 4.9 mmol/L [facility] Chloride 102 97 - 110 mmol/L [facility] CO2 28 22 - 32 mmol/L [facility] Anion gap 12 2 - 15 mmol/L [facility] BUN 33(H) 6 - 25 mg/dL [facility] Creatinine 1.40(H) 0.80 - 1.30 mg/dL [facility] Glucose 114 70 - 199 mg/dL [facility] Comment: Interpretive Data Fasting glucose >/= 126 [...] 2022. Calcium 8.9 8.5 - 10.3 mg/dL [facility] Bilirubin, total 0.4 0.1 - 1.2 mg/dL [facility] Protein, pl 6.9 6.5 - 8.5 g/dL [facility] Albumin 3.9 3.5 - 5.0 g/dL [facility] Alk phos 43 40 - 130 Units/L [facility] ALT 13 7 - 55 Units/L [facility] AST 24 10 - 50 Units/L [facility] Blood 09/11/2024 11:0 3 AM [employer]CEL[employer] E[employer]ELING SUPERVISOR 09/11/2024 11:20 AM [employer] E[employer]ELING SUPERVISOR us Joseph Lucas MD LAB BLOOD ORDERABLES Shanna l Result [facility] One [facility] [place] [address] * ECG 12-LEAD (09/11/2024 10:52 AM P[employer] ENAMELING SUPERVISOR) Narrative MUSE BJ - 09/11/2024 10:52 AM [employer] E[employer]ELING SUPERVISOR Hermilo Linares MD 09/11/2024 10:55 AM [...] MD ECG ORDERABLES Final Res ult [facility] * POCT glucose (09/11/2024 10:48 AM P[employer] ENAMELING SUPERVISOR) Glucose, POC 112 70 - 199 mg/dL Blood 09/11/2024 10:4 8 AM [employer]CEL[employer] ENAMELING SUPERVISOR 09/11/2024 10:48 AM P[employer] ENAMELING SUPERVISOR us Notinfile Unknown LAB POCT ORDERABLES - DEVICE F inal Result Performing Organization Address City/[facility]/ZIP Co de Phone Number [facility] One [facility] [place] [address] * (ABNORMAL) eGFR (09/10/2024 12:26 PM PORCELAIN ENAMELING SUPERVISOR) eGFR 54(L) >=60 mL/min/1. 73 m2 [...] reviewed 2021. Blood 09/10/2024 12:2 6 PM PORCELAIN ENAMELING SUPERVISOR 09/10/2024 1:37 PM P[employer]CELAIN ENAMELING SUPERVISOR Rehan Sheth MD LAB BLOOD ORDERABLES F inal Result Performing Organization Address City/[facility]/ZIP Co de Phone Number ORA Grewal [facility] [place] [address] * (ABNORMAL) Pro B-type natriuretic peptide (09/10/2024 12:26 PM PORCELAIN ENAMELING SUPERVISOR) NT-proBNP 2,273(H) <=450 pg/mL Comment: Interpretive [...] Date: 2018. Blood 09/10/2024 12:2 6 PM PORCELAIN ENAMELING SUPERVISOR 09/10/2024 1:32 PM P[employer]CELAIN ENAMELING SUPERVISOR Rehan Sheth MD LAB BLOOD ORDERABLES F inal Result OR[facility] [place] [address] * (ABNORMAL) Basic metabolic panel (09/10/2024 12:26 PM PORCELAIN ENAMELING SUPERVISOR) Sodium 142 135 - 145 mmol/L Potassium, pl 3.9 3.3 - 4.9 mmol/L [facility] Chloride 104 97 - 110 mmol/L [facility] CO2 28 22 - 32 mmol/L [facility] Anion gap 10 2 - 15 mmol/L [facility] BUN 31(H) 6 - 25 mg/dL [facility] Creatinine 1.29 0.80 - 1.30 mg/dL [facility] Glucose 126 70 - 199 mg/dL [facility] Comment: Interpretive Data Fasting glucose >/= 126 [...] 2022. Calcium 9.2 8.5 - 10.3 mg/dL [facility] Blood 09/10/2024 12:2 6 PM PORCELAIN ENAMELING SUPERVISOR 09/10/2024 1:32 PM PORCELAIN ENAMELING SUPERVISOR Rehan Sheth MD LAB BLOOD ORDERABLES F inal Result Performing Organization Address [facility] Co de Phone Number ORA [facility] [place] [address] * ECG 12 lead (09/10/2024 11:33 AM PORCELAIN ENAMELING SUPERVISOR) Rehan Sheth MD ECG ORDERABLES Edited Result - Final * XR Scoliosis Ap and Lateral (08/26/2024 11:42 AM PORCELAIN ENAMELING SUPERVISOR) Anatomical Region Laterality Modality Spine N/A Computed Radiogr aphy 08/26/2024 12:3 0 PM PORCELAIN ENAMELING SUPERVISOR Impressions 08/26/2024 12:30 PM PORCELAIN ENAMELING SUPERVISOR 1. Mild thoracolumbar curvature with leftward coronal and anterior sagittal imbalance Electronically signed by: Mehran Sotomayor MD [facility] 08/26/2024 12:30 PM PORCELAIN ENAMELING SUPERVISOR EXAMINATION: XR SCOLIOSIS AP AND LATERAL [...] imbalance Electronically signed by: Mehran Sotomayor MD lCayton Robertson DO IMG XR PROCEDURES Final Result * (ABNORMAL) Basic metabolic panel (07/30/2024 12:37 PM PORCELAIN ENAMELING SUPERVISOR) Glucose 143(H) 65 - 99 mg/dL Mel[facility]ie [...] 141 135 - 146 mmol/L [facility] Potassium, pl 4.2 3.5 - 5.3 mmol/L [facility] [place] Chloride 103 98 - 110 mmol/L [facility] CO2 30 20 - 32 mmol/L [facility] Calcium 8.9 8.6 - 10.3 mg/dL [facility] [place] Blood 07/30/2024 12:3 7 PM PORCELAIN ENAMELING SUPERVISOR 07/30/2024 12:38 PM PORCELAIN ENAMELING SUPERVISOR us Rehan Sheth MD LAB BLOOD ORDERABLES F inal Result [facility] [address] [place] [address] * (ABNORMAL) Basic metabolic panel (07/16/2024 11:34 AM PORCELAIN ENAMELING SUPERVISOR) Pathologist [facility] Glucose 115 65 - 139 mg/dL [facility] Comment: Non-fasting reference interval BUN 29(H) 7 - 25 mg/dL [facility] [place] Creatinine 1.23(H) 0.70 - 1.22 mg/dL [facility] [place] eGFR 58(L) > OR = 60 mL/min/1.7 3m2 [facility]i [place] BUN/creat ratio 24(H) 6 - 22 (calc) [facility] Sodium 138 135 - 146 mmol/L [facility] Potassium, pl 4.4 3.5 - 5.3 mmol/L [facility] [place] Chloride 101 98 - 110 mmol/L [facility] CO2 27 20 - 32 mmol/L [facility] Calcium 8.7 8.6 - 10.3 mg/dL [facility] Blood 07/16/2024 11:3 4 AM P[employer]CELAIN ENAMELING SUPERVISOR 07/16/2024 11:34 AM PORCELAIN ENAMELING SUPERVISOR Narrative [facility] - 07/16/2024 10:30 PM P[employer]CELAIN ENAMELING SUPERVISOR INSURANCE VERIFIED FASTING:NO FASTING: NO Rehan Sheth MD LAB BLOOD ORDERABLES F inal Result [facility] [address] [place] [address] * (ABNORMAL) Hemoglobin A1c (06/07/2024 8:38 AM CDT) Hgb A1C 6.1(H) 4.0 - 5.6 % Estimated Average Glucose 128 mg/dL [facility] Comment: The ADA recommends reporting an estimated Average Glucose (eAG) with all Hemoglobin A1c results using the equation derived from a study of 507 normal and diabetic adults. Minority populations were underrepresented and children were not included. (Diabetes Care 31:6432-4483, 2008). The eAG is not equivalent to a fasting glucose. Blood 06/07/2024 8:38 AM CDT 06/07/2024 9:07 AM CDT Joe Hood MD LAB BLOOD ORDER MAITE Final Result [facility] [address] [facility] Department [place] [address] * Lipid panel (06/07/2024 8:38 AM CDT) [...] LAB BLOOD ORDER MAITE Final Result ORA [address] [facility] Department [place] [address] * DIABETES FOOT EXAM (11/05/2020) Diabetic Foot Exam Normal Historical Provider HEALTH MAINTENANCE Final Result * DIABETES EYE EXAM (05/05/2019) Diabetic Eye Exam Normal Historical Glenda COMBS HEALTH MAINTENANCE Final Result from Last 3 Months or Most Recently Relevant to Health Maintenance Insurance [employer] CHO[employer] MEDICARE PPO MEDICARE SOLUTIONS MEDICARE SOLUTIONS Advance Directives For more information, please contact: [phone] Documents on File Type Date Recorded Patient Car Unloader Expl anation ADVANCE DIRECTIVE 12/27/2023 10:41 PM Jorge Pryor P OWER OF GRAIN I FARMWORKER-MEDICAL ADVANCE DIRECTIVE 12/26/2023 10:38 AM Yazmin Medina POWER OF GRAIN I FARMWORKER-FINANCIAL * Full Code (Latest Code Status on [...] Communication Jorge Pryor Spouse Health Care Agent [email or web address] Medina Daughter First Alternate Health Care Agent [email or web address] Regulatory Affairs Internship Relationship Specialty Start Date End Date Barry Ralph MD PCP - General Family Practice 05/22/24 Rehan Sheth MD [address] [address] Consulting Physician Cardiology 09/09/24
--- OUTSIDE RECORDS SUMMARY | 2024-10-15 00:30 | XMS_ITS | Clinical Summary ---
Author Organization [facility] Address [address] [place] [address] Care Team Providers Care Senior Instructor Name Role Phone Barry Ralph MD Primary Care Provider [phone] Rehan Sheth MD Unavailable [phone] Allergies No known active allergies Medications albuterol HFA (PROVENTIL HFA,VENTOLIN HFA,PROAIR HFA) 90 mcg/actuation inhaler Inhale 2 puffs as needed for shortness of breath 09/17/19 15 Active True Metrix Glucose Meter kit USE DIRECTED 1 kit 08/17/20 21 Active lancets (OneTouch Delica Plus Lancet) 30 gauge miscIndications:Typ e 2 diabetes mellitus with hyperosmolarity without coma, without long-term current use of insulin ([facility]) ([facility]) Use to check blood sugar 3x daily 300 each 2 02/01/20 22 Active blood glucose diagnostic (True Metrix Glucose Test Strip) stripIndications:Ty pe 2 diabetes mellitus with hyperosmolarity without coma, without long-term current use of insulin ([facility]) ([facility]) TEST BLOOD SUGAR EVERY DAY [...] type 09/11/2024 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 -s/p Successful PCI [...] Plan (05/20/2024 11:34 AM CDT): Went to [facility] 05/17 for SOB, new 2L O2 requirement - OSH workup: Trp 1.95>5.1>10, proBNP 6800, CXR w/ mild interstitial edema - OSH LHC 9/30 w/ L main widely patent, LAD proximal body 80% stenosis, LAD stent w/ moderate ISR, L cx w/ 95% stenosis in proximal body, OM branches w/ mild disease, RCA is TUBER OPERATOR in mid body w/ L to [...] Plan (05/20/2024 1:02 AM CDT): Went to [facility] 05/17 for SOB, new 2L O2 requirement - OSH workup: Trp 1.95>5.1>10, proBNP 6800, CXR w/ mild interstitial edema - OSH LHC 9/30 w/ L main widely patent, LAD proximal body 80% stenosis, LAD stent w/ moderate ISR, L cx w/ 95% stenosis in proximal body, OM branches w/ mild disease, RCA is TUBER OPERATOR in mid body w/ L to [...] Assessment & Plan (05/21/2024 10:58 AM CDT): [facility] 05/17 for SOB, on 3.5L now [...] Assessment & Plan (05/20/2024 11:50 AM CDT): [facility] 05/17 for SOB, on 3.5L now [...] Assessment & Plan (05/20/2024 1:00 AM CDT): [facility] 05/17 for SOB, on 2L now [...] salt diet Acute on chronic heart failure ([facility]) 024 Assessment & Plan [...] benefi Assessment & Plan (07/04/2024 1:02 PM PROPAGATION WORKER): He may just be symptomatic from his [...] Assessment & Plan (03/17/2024 1:48 PM CDT): 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 [...] stenosis. Assessment & Plan (07/04/2024 1:03 PM PROPAGATION WORKER): Failed LMBB. Assessment & Plan (04/23/2024 5:41 [...] of anticoagulants [Z79.0 1] 03/27/2018 Atrial fibrillation ([facility]) [I48.91] 8 Overview (09/04/2018): [...] quiescent Assessment & Plan (09/04/2018 10:33 AM PROPAGATION WORKER): COPD is unchanged. COPD information handout given. [...] to PT - wants to go to [facility]. Trial robaxin. Flexeril on med list [...] no Assessment & Plan (10/01/2019 10:35 AM PROPAGATION WORKER): S2 makes a wonderfully crisp snap w/o any regurge Gastroesophageal reflux disease 09/17/2014 Tussive syncope 08/25/2014 Syncope and collapse 08/21/2014 Syncope 08/21/2014 Type 2 diabetes mellitus 07/10/2014 Overview (05/13/2021): Was on levemir but stopped 2015 then on trulicity so on metformin ALONE We had better control w/ Katiediance -since he has been w/ Dr Stockton [phone] has been on Actose and metformin- Off [...] heart- Assessment & Plan (10/01/2019 10:30 AM PROPAGATION WORKER): His A1C has crept to 7.5% Admits [...] covered Assessment & Plan (09/04/2018 10:42 AM PROPAGATION WORKER): Diabetes is worsening. Continue current treatment regimen. [...] 07/09/2014 Assessment & Plan (10/01/2019 10:32 AM PROPAGATION WORKER): He gets along nicely w/ a low [...] Subsequent Outreach [facility] [address] [place] [address] Sangita Moore, RN 10/10/2024 SHOP/CHAP Subsequent Outreach [facility] [address] [place] [address] Sangita Moore, RN 10/08/2024 Documentation [facility] [address] [place] [address] Yvonne Tanner, RN 10/08/2024 SHOP/CHAP Subsequent Outreach [facility] [address] [place] [address] Sangita Moore, RN 10/07/2024 Telephone [facility] Cardiology [address] [place] [address] 8th [place] [address] [place] [phone] Rehan Sheth MD shortness of breath/anxiety 10/07/2024 SHOP/CHAP Subsequent Outreach [facility] [address] [place] [phone] Sangita Moore RN 10/06/2024 2:18 PM PROPAGATION WORKER - 10/06/2024 7:30 PM [facility] Emergency [facility] [address] [place] [phone] Aneta Castellanos MD Altered mental status, unspecified altered mental status type (Primary Dx) Discharge Disposition: Discharge to home or self care 10/06/2024 SHOP/CHAP Subsequent Outreach [facility] OP CASE MANAGEMENT [address] [place] [phone] Sangita Moore RN 10/06/2024 Results Follow-Up [facility] Cardiology [address] [place] [address] Advanced Medicine 8th [place] [address] [place] [address] Amanda Chatman RN 10/06/2024 Telephone [facility] Cardiology [address] [place] [address] Advanced [facility] 8th [place] [address] [place] [address] Rehan Sheth MD [facility] 10/03/2024 10:45 AM [facility] - 10/03/2024 12:00 PM [facility] Surgery [facility] [address] [place] [phone] Nigel Holman MD Right Left Heart Catheterization with Coronary Angiography with or without Left Ventriculography [id number] 10/03/2024 7:50 AM [facility] - 10/03/2024 5:48 PM [facility] Hospital Encounter [facility] [address] [place] [phone] Nigel Holman MD Chest pain, unspecified type (Primary Dx); Chronic systolic heart failure (CMS/HCC) (HCC); Coronary artery disease involving cachil dehe coronary artery of cachil dehe heart with angina pectoris (HCC); Acute on chronic heart failure, unspecified heart failure type (HCC); Paroxysmal atrial fibrillation (CMS/HCC) (HCC); History of aortic valve replacement Discharge Disposition: Discharge to home or self care 09/30/2024 SHOP/CHAP Subsequent Outreach [facility] [address] [place] [address] Sangita Moore, RN 09/26/2024 SHOP/CHAP Subsequent Outreach [facility] OP CASE [facility]NAGEMENT [address] [place] [address] Sangita Moore, RN 09/25/2024 Orders Only [facility] Cardiology [address] [place] [address] Advanced [facility] 8th [place] [address] [place] [address] Naila Cortez RN High risk medications (not anticoagulants) long-term use (Primary Dx) 09/25/2024 Telephone [facility] Cardiology [address] [place] [address] [place] [address] Rehan Sheth MD 09/24/2024 7:40 PM PROPAGATION WORKER Lab [facility] ([facility]) [address] [place] [phone] Chronic heart failure with preserved ejection fraction (CMS/HCC) (HCC) 09/24/2024 3:15 PM PROPAGATION WORKER Office Visit [facility] Cardiology [address] [place] [address] [place] [address] Rehan Sheth MD Chronic heart failure with preserved ejection fraction (CMS/HCC) (HCC) (Primary Dx); History of aortic valve replacement; Benign essential hypertension; Paroxysmal atrial fibrillation (CMS/HCC) (HCC) 09/24/2024 Telephone [facility] Cardiology [address] [place] [address] [place] [address] Rehan Sheth MD cardiac cath 09/23/2024 SHOP/CHAP Subsequent Outreach [facility] OP CASE MANAGEMENT [address] [place] [address] Sangita Moore, RN 09/17/2024 SHOP/CHAP Subsequent Outreach [facility] OP CASE MANAGEMENT [address] [place] [address] Sangita Moore, RN 09/15/2024 SHOP/CHAP Initial Outreach [facility] OP CASE MANAGEMENT [address] [place] [address] Sangita Moore RN 09/15/2024 Telephone [facility] Cardiology [address] [place] [address] [facility] 8th [place] [address] [place] [address] Rehan Sheth MD f/u orders 09/15/2024 SHOP/CHAP Initial Eligibility Review [facility] OP CASE [facility]NAGEMENT [address] [place] [address] Sangita Moore RN 09/11/2024 12:49 PM PROPAGATION WORKER - 09/14/2024 12:22 PM PROPAGATION WORKER Hospital [address] [address] Joseph Lucas MD [place], MD Melissa King, Dalila Jean MD Chest pain, unspecified type (Primary Dx) Discharge Disposition: Discharge to home or self care 09/11/2024 Documentation [facility] Cardiology [address] [place] [address] [facility] 8th [place] [address] [place] [address] Rehan Sheth MD 09/11/[address] Advanced [address] [place] [address] [place] [address] Rehan Sheth MD Symptoms update 09/10/2024 12:25 PM PROPAGATION WORKER Lab [facility] ([facility]) [address] [place] [phone] Chronic heart failure with preserved ejection fraction (CMS/HCC) (HCC) 09/10/2024 11:15 AM PROPAGATION WORKER Office Visit [facility] Cardiology [address] [place] [address] Advanced [facility] 8th [place] [address] [place] [address] Rehan Sheth MD Chronic heart failure with preserved ejection fraction (CMS/HCC) (HCC) (Primary Dx); Coronary artery disease involving cachil dehe coronary artery of cachil dehe heart with angina pectoris (HCC) 09/10/2024 Telephone [facility] Cardiology [address] [facility] 8th [place] [address] [place] [address] Rehan Sheth MD Cardiac Clearance request 09/10/2024 Telephone [facility] Cardiology [address] [facility] 8th [place] [address] [place] [phone] Rehan Sheth MD Chest symptoms 09/09/2024 Telephone [place] [phone] [facility] 8th [place] [address] [place] [phone] Rehan Sheth MD Samples/and report of ER eval 09/01/2024 Telephone [facility] Neurosurgery [address] [place] [address] Office [facility] [address] [place] [address] Clayton Robertson DO 08/26/2024 12:30 PM PROPAGATION WORKER Office Visit [facility] Neurosurgery [address] [place] [address] Office [facility] [address] [place] [address] Clayton Robertson DO 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) 08/26/2024 11:32 AM PROPAGATION WORKER - 08/26/2024 11:59 PM PROPAGATION WORKER Hospital Encounter [facility] [address] [place] [address] [address] [place] [address] Lumbar spondylosis; Chronic bilateral low back pain, unspecified whether sciatica present Discharge Disposition: Discharge to home or self care 08/06/2024 Orders Only [facility] Neurosurgery [address] [place] [address] Medical Office [facility] [address] [place] [address] Clayton Robertson DO Lumbar spondylosis (Primary Dx); [...] 03/19/2016 Surgical History Surgery Date Site/Laterality Comments MT LASER VAPORIZATION OF PROSTATE FOR URINE FLOW Laser Vaporization With Transurethral Resection Of Prostate - (Added by TW Conv) MT RPLCMT PROST AORTIC VALVE OPEN XCP HOMOGRF/STENT Aortic Valve Replacement - (Added by TW Conv) BIOPSY DEEP BONE 12/21/2023 N/A CARDIAC CATHETERIZATION 10/03/2024 N/A Procedure: Right Left Heart Catheterization with Coronary Angiography with or without Left Ventriculography [id number]; Surgeon: Nigel Holman MD; Location: [facility] CARDIAC COAGULATION OPERATOR; Service: Cardiovascular; Laterality: N/A; Cp, SOB, CAD Cath with PCI [facility] 05/21/[address] Pedroza. On glucatrol, will [...] Tobacco: Never Tobacco Cessation:Counseling Given: Not Answered [facility] Utilities Answer Date Recorded In [...] Date Recorded PHQ-2 Total Score 0 09/12/2024 [facility] Occupat ional Health - Occupational Stress [...] any time in the past 12 m [facility], were you homeless or living [...] on file Legal Sex Male 8:23 PM PROPAGATION WORKER Gender Identity Not on file Sexual Orientation Not on file Obstetrics History Last Filed Vital Signs Vital Sign Reading Time Taken Comments Blood Pressure 113/56 10/06/2024 6:55 PM PROPAGATION WORKER Pulse 66 10/06/2024 6:55 PM PROPAGATION WORKER Temperature 36.6 C (97.9 F) 10/06/2024 12:33 PM PROPAGATION WORKER Respiratory Rate 10 10/06/2024 6:55 PM PROPAGATION WORKER Oxygen Saturation 96% 10/06/2024 6:55 PM PROPAGATION WORKER Inhaled Oxygen Concentration - - Weight 99.8 kg (220 lb) 10/06/2024 12:33 PM PROPAGATION WORKER Height 182.9 cm (6') 10/06/2024 12:33 PM PROPAGATION WORKER Body Mass Index 29.84 10/06/2024 12:33 PM PROPAGATION WORKER Plan of Treatment Health Maintenance Due Date [...] Plan Chronic Care Management Improving( 10:49 AM PROPAGATION WORKER) Nenita Sanchez, RN Note: Problem: Chronic Pain Goals: 1. Minimize further functional decline 2. Maximize quality of life 3. Control pain Strategies: - Activity/exercise program recommendation - Conservative stepwise pain medicine strategy with multi-disciplinary approach - Recommend healthy lifestyle strategies and compensatory methods as needed Medical Devices Implanted Type Area Platform Consultant Device Identifier Shelf Expiration Date Model / Serial / Lot [employer] Angio-Seal Vip Bondek-Plus 8fr .038in 70cm Hemostatic Latex Free [id number] - [id number] - [id number] Implanted:Qty : 1 on 05/20/2024 by Papo Rascon MD at [facility] Collagen Right: Common Femoral Artery [employer]en 12/10/2024 [id number] / [id number] / [id number] Prosthetic Valve Prosthetic Valve Heart Description:Heart Valve Medtronic Card Vasc Surgery 4.0 X 12mm [employer] Coronary Stent [id number] - [id number] - [id number] Implanted:Qty : 1 on 05/20/2024 by Vitor Pedroza MD at [facility] Stent N/A: Circumflex Coronary Artery Medtronic Card Vasc Surgery 01/11/2027 [id number] / [id number] / [id number] Medtronic Card Vasc Surgery 4.0 X 12mm [employer] Coronary Stent [id number] - [id number] - [id number] Implanted:Qty : 1 on 05/20/2024 by Vitor Pedroza MD at [facility] Stent Left: Anterior Descending Cornary Artery Medtronic Card Vasc Surgery 11/14/2026 [id number] / [id number] / [id number] Medtronic Card Vasc Surgery 4.0 X 18mm [employer] Coronary Stent [id number] - [id number] - [id number] Implanted:Qty : 1 on 10/03/2024 by Nigel Holman MD at [facility] Stent Left: Anterior Descending Cornary Artery Medtronic Card Vasc Surgery 04/14/2027 [id number] / [id number] / [id number] Description:Adrian TO lad Procedures Procedure Name Priority Date/Time Associated Diagnosis Comments URINALYSIS, MICROSCOPIC ONLY STAT 10/06/2024 5:51 PM PROPAGATION WORKER URINALYSIS AND REFLEX TO MICROSCOPIC STAT 10/06/2024 5:51 PM PROPAGATION WORKER COMPREHENSIVE METABOLIC PANEL Routine 10/06/2024 3:59 PM PROPAGATION WORKER EGFR Routine 10/06/2024 3:59 PM PROPAGATION WORKER VITAMIN B12 Routine 10/06/2024 3:59 PM PROPAGATION WORKER TSH Routine 10/06/2024 3:59 PM PROPAGATION WORKER CBC WITHOUT DIFFERENTIAL Routine 10/06/2024 3:59 PM PROPAGATION WORKER RESPIRATORY PATHOGEN PANEL STAT 10/06/2024 3:[address] HEAD WO CONTRAST ED 10/06/2024 3 :37 PM PROPAGATION WORKER XR CHEST PA LATERAL 2 VIEWS ED 10/06/2024 3:30 PM PROPAGATION WORKER ECG 12-LEAD STAT 10/06/2024 1:07 PM PROPAGATION WORKER POCT GLUCOSE DEVICE Routine 10/06/2024 12:48 PM PROPAGATION WORKER EGFR Routine 10/03/2024 4:00 PM PROPAGATION WORKER DIFFERENTIAL AUTO Routine 10/03/2024 4:0 0 PM PROPAGATION WORKER CBC WITH AUTO DIFFERENTIAL Routine 10/03/2024 4:00 PM PROPAGATION WORKER BASIC METABOLIC PANEL Routine 10/03/2024 4:00 PM PROPAGATION WORKER POCT ACTIVATED CLOTTING TIME, LOW RANGE Routine 10/03/2024 2:14 PM PROPAGATION WORKER RIGHT AND LEFT HEART CATHETERIZATION Routine 10/03/2024 12:42 PM PROPAGATION WORKER Chronic systolic heart failure (CMS/HCC) (HCC) Coronary artery disease involving cachil dehe coronary artery of cachil dehe heart with angina pectoris (HCC) Acute on chronic heart failure, unspecified heart failure type (HCC) Paroxysmal atrial fibrillation (CMS/HCC) (HCC) History of aortic valve replacement POCT ACTIVATED CLOTTING TIME, LOW RANGE Routine 10/03/2024 12:42 PM PROPAGATION WORKER TYPE AND SCREEN Timed 10/03/2024 12:20 PM PROPAGATION WORKER POCT ACTIVATED CLOTTING TIME, LOW RANGE Routine 10/03/2024 12:06 PM PROPAGATION WORKER POCT OXYHEMOGLOBIN - DEVICE Routine 10/03/2024 11:47 AM PROPAGATION WORKER POCT OXYHEMOGLOBIN - DEVICE Routine 10/03/2024 11:45 AM PROPAGATION WORKER CBC WITHOUT DIFFERENTIAL Routine 10/03/2024 11:45 AM PROPAGATION WORKER POCT OXYHEMOGLOBIN - DEVICE Routine 10/03/2024 11:44 AM PROPAGATION WORKER POCT GLUCOSE DEVICE Routine 10/03/2024 8 :45 AM PROPAGATION WORKER BASIC METABOLIC PANEL Routine 09/29/2024 9:42 AM PROPAGATION WORKER High risk medications (not anticoagulants) long-term use EGFR Routine 09/24/2024 5:03 PM PROPAGATION WORKER Chronic heart failure with preserved ejection fraction (CMS/HCC) (HCC) DIFFERENTIAL AUTO Routine 09/24/2024 5:0 3 PM PROPAGATION WORKER Chronic heart failure with preserved ejection fraction (CMS/HCC) (HCC) BASIC METABOLIC PANEL Routine 09/24/2024 5:03 PM PROPAGATION WORKER Chronic heart failure with preserved ejection fraction (CMS/HCC) (HCC) PRO B-TYPE NATRIURETIC PEPTIDE Routine 09/24/2024 5:03 PM PROPAGATION WORKER Chronic heart failure with preserved ejection fraction (CMS/HCC) (HCC) CBC WITH AUTO DIFFERENTIAL Routine 09/24/2024 5:03 PM PROPAGATION WORKER Chronic heart failure with preserved ejection fraction (CMS/HCC) (HCC) ECG 12-LEAD Routine 09/24/2024 4:01 PM PROPAGATION WORKER History of aortic valve replacement EGFR STAT 09/14/2024 8:23 AM PROPAGATION WORKER BASIC METABOLIC PANEL STAT 09/14/2024 8:23 AM PROPAGATION WORKER EGFR Routine 09/13/2024 9:57 PM PROPAGATION WORKER CBC WITHOUT DIFFERENTIAL Routine 09/13/2024 9:57 PM PROPAGATION WORKER MAGNESIUM Routine 09/13/2024 9:57 PM PROPAGATION WORKER BASIC METABOLIC PANEL Routine 09/13/2024 9:57 PM PROPAGATION WORKER EGFR Routine 09/12/2024 8:13 PM PROPAGATION WORKER CBC WITHOUT DIFFERENTIAL Routine 09/12/2024 8:13 PM PROPAGATION WORKER MAGNESIUM Routine 09/12/2024 8:13 PM PROPAGATION WORKER BASIC METABOLIC PANEL Routine 09/12/2024 8:13 PM PROPAGATION WORKER SODIUM, URINE, RANDOM Routine 09/12/2024 12:36 PM PROPAGATION WORKER POCT GLUCOSE DEVICE Routine 09/12/2024 7 :52 AM PROPAGATION WORKER POCT GLUCOSE DEVICE Routine 09/12/2024 6 :21 AM PROPAGATION WORKER POCT GLUCOSE DEVICE Routine 09/12/2024 2 :15 AM PROPAGATION WORKER EGFR Routine 09/11/2024 11:44 PM PROPAGATION WORKER CBC WITHOUT DIFFERENTIAL Routine 09/11/2024 11:44 PM PROPAGATION WORKER MAGNESIUM Routine 09/11/2024 11:44 PM PROPAGATION WORKER BASIC METABOLIC PANEL Routine 09/11/2024 11:44 PM PROPAGATION WORKER POCT GLUCOSE DEVICE Routine 09/11/2024 8 :14 PM PROPAGATION WORKER POCT GLUCOSE DEVICE Routine 09/11/2024 5 :23 PM PROPAGATION WORKER TROPONIN I HIGH-SENSITIVITY 4-HOUR Timed 09/11/2024 3:10 PM PROPAGATION WORKER POCUS CARDIAC 09/11/2024 1:58 PM PROPAGATION WORKER PRO B-TYPE NATRIURETIC PEPTIDE STAT 09/11/2024 1:30 PM PROPAGATION WORKER TROPONIN I HIGH-SENSITIVITY 2-HOUR Timed 09/11/2024 1:30 PM PROPAGATION WORKER XR CHEST PA LATERAL 2 VIEWS ED 09/11/2024 11:13 AM PROPAGATION WORKER EGFR STAT 09/11/2024 11:03 AM PROPAGATION WORKER DIFFERENTIAL AUTO STAT 09/11/2024 11:03 AM PROPAGATION WORKER TROPONIN I HIGH-SENSITIVITY SERIES (BASELINE, 2HR, 4HR, 6HR) STAT 09/11/2024 11:03 AM PROPAGATION WORKER COMPREHENSIVE METABOLIC PANEL STAT 09/11/2024 11:03 AM PROPAGATION WORKER CBC WITH AUTO DIFFERENTIAL STAT 09/11/2024 11:03 AM PROPAGATION WORKER ECG 12-LEAD STAT 09/11/2024 10:52 AM PROPAGATION WORKER POCT GLUCOSE DEVICE Routine 09/11/2024 10:48 AM PROPAGATION WORKER EGFR Routine 09/10/2024 12:26 PM PROPAGATION WORKER Chronic heart failure with preserved ejection fraction (CMS/HCC) (HCC) PRO B-TYPE NATRIURETIC PEPTIDE Routine 09/10/2024 12:26 PM PROPAGATION WORKER Chronic heart failure with preserved ejection fraction (CMS/HCC) (HCC) BASIC METABOLIC PANEL Routine 09/10/2024 12:26 PM PROPAGATION WORKER Chronic heart failure with preserved ejection fraction (CMS/HCC) (HCC) ECG 12-LEAD Routine 09/10/2024 11:33 AM PROPAGATION WORKER Chronic heart failure with preserved ejection fraction (CMS/HCC) (HCC) XR SCOLIOSIS AP LAT Schedule Routine, Read Routine (OP Routine) 08/26/2024 11:42 AM PROPAGATION WORKER Lumbar spondylosis Chronic bilateral low back pain, unspecified whether sciatica present BASIC METABOLIC PANEL Routine 07/30/2024 12:37 PM PROPAGATION WORKER High risk medications (not anticoagulants) long-term use BASIC METABOLIC PANEL Routine 07/16/2024 11:34 AM PROPAGATION WORKER High risk medications (not anticoagulants) long-term use HEMOGLOBIN A1C Routine 06/07/2024 8:38 AM CDT LIPID PANEL Routine 06/07/2024 8:38 AM CDT DIABETES FOOT EXAM Routine 11/05/2020 DIABETES EYE EXAM Routine 05/05/2019 from Last 3 Months or Most Recently Relevant to Health Maintenance Results * (ABNORMAL) Urinalysis reflex to microscopic (10/06/2024 5:51 PM PROPAGATION WORKER) Color, ur Straw Yellow Clarity, ur Clear Clear [facility] Specific gravity, ur 1.010 1.003 - 1.030 [facility] pH, urine 6.0 [facility] Comment: Interpretive Data U rine pH is affected by diet, medications, systemic acid-base disturbances, and renal tubular function. pH may affect urinary stone formation. For example, urine pH below 6.0 may help reduce the tendency for calcium phosphate stones and pH greater than 6.0 may reduce the tendency for uric acid stone formation. Source: [facility] Current Interpretive Data was last revised on 2017 Protein, ur ql Negative Negative [facility] Glucose, ur ql Negative Negative [facility] Ketones, ur Negative Negative [facility] Bilirubin, ur Negative Negative [facility] Blood, ur Negative Negative [facility] Urobilinogen, ur <2.0 <2.0 mg/dL [facility] Nitrite, ur Negative Negative [facility] Leukocyte esterase, ur Trace(A) Negative [facility] UA reflex comment Reflex to microscopic UA will be performed. [facility] [facility] Urine 10/06/2024 5:51 PM PROPAGATION WORKER 10/06/2024 5:58 PM PROPAGATION WORKER us Aneta Castellanos MD LAB URINE ORDERABLES Final R esult [facility] [address] [facility] Department [place] [address] * (ABNORMAL) Urinalysis, microscopic only (10/06/2024 5:51 PM PROPAGATION WORKER) WBC, ur 0-5 0 - 5 /HPF RBC, ur 0-2 0 - 2 /HPF [facility] Epithelial cells, squamous, ur 1-5 0 - 5 /HPF [facility] Epithelial cells, transitional, ur 1-5 0 - 0 /HPF [facility] Bacteria, ur Trace(A) [facility] Mucous, ur Present(A) [facility] Hyaline casts, ur 6-10 0 - 10 /LPF [facility] Urine 10/06/2024 5:51 PM PROPAGATION WORKER 10/06/2024 5:58 PM PROPAGATION WORKER Aneta Castellanos MD LAB URINE ORDERABLES Final R esult Performing Organization Address [facility] de Phone Number [facility] Department [place] [address] * eGFR (10/06/2024 3:59 PM PROPAGATION WORKER) [facility] eGFR 64 >=60 mL/min/1. 73 m2 [...] last reviewed 2021. Blood 10/06/2024 3:59 PM PROPAGATION WORKER 10/06/2024 4:26 PM PROPAGATION WORKER Aneta Castellanos MD LAB BLOOD ORDERABLES Final R esult Performing Organization Address [facility] Co de Phone Number [facility] Department [place] [address] * Respiratory pathogen panel Nasopharyngeal (10/06/2024 3:59 PM PROPAGATION WORKER) [facility] Influenza A RNA Not Detected Not Detected Influenza B RNA Not Detected Not Detected [facility] RSV RNA Not Detected Not Detected [facility] COVID-19 RNA Not Detected Not Detected [facility] Coronavirus 229E RNA Not Detected Not Detected [facility] Coronavirus HKU1 RNA Not Detected Not Detected [facility] Coronavirus NL63 RNA Not Detected Not Detected [facility] Coronavirus OC43 RNA Not Detected Not Detected [facility] Adenovirus DNA Not Detected Not Detected [facility] Metapneumovirus RNA Not Detected Not Detected [facility] Rhinovirus/Enterov irus RNA Not Detected Not Detected [facility] Parainfluenza 1 RNA Not Detected Not Detected [facility] Parainfluenza 2 RNA Not Detected Not Detected [facility] Parainfluenza 3 RNA Not Detected Not Detected [facility] Par[facility]fluenza 4 RNA Not Detected Not Detected [facility] B. pertussis DNA Not Detected Not Detected [facility] B. parapertussis DNA Not Detected Not Detected [facility] C. pneumoniae DNA Not Detected Not Detected [facility] M. pneumoniae DNA Not Detected Not Detected [facility] Nasopharyngeal 10/06/2024 3: 59 PM PROPAGATION WORKER 10/06/2024 4:19 PM PROPAGATION WORKER Narrative [facility] - 10/06/2024 6:14 PM PROPAGATION WORKER Is the Patient experiencing symptoms consistent with COVID?->No Surveillance testing for transplant patient?->No Interpretive Data The PeriGen FilmArray Respiratory Panel (RP2.1) assay is a [...] assay has FDA clearance for testing of [employer] swabs. The performance of additional specimen types has been assessed by the performing laboratory. The performance characteristics of this assay have been determined by [facility] Molecular Infectious Disease Laboratory. Current interpretive data was last revised on 22. us Oralia Cummings MD LAB MICROBIOLOGY - GENERAL OR DERABLES Final Result [facility] [address] [facility] Department [place] [address] * (ABNORMAL) CBC without differential (10/06/2024 3:59 PM PROPAGATION WORKER) WBC 6.8 3.8 - 9.9 K/cumm Hgb 11.5(L) 13.0 - 17.5 g/dL [facility] Hct 34.1(L) 38.9 - 50.3 % [facility] Plt 162 150 - 400 K/cumm [facility] MPV 11.4 9.1 - 12.3 fL [facility] RBC 3.72(L) 4.30 - 5.80 M/cumm [facility] MCV 91.7 81.3 - 96.4 fL [facility] MCH 30.9 27.1 - 33.3 pg [facility] MCHC 33.7 32.3 - 35.7 g/dL [facility] RDW CV 14.7 11.1 - 14.9 % [facility] RDW SD 49.6(H) 35.7 - 48.1 fL [facility] NRBC abs 0.00 0.00 - 0.01 K/cumm [facility] Blood 10/06/2024 3:59 PM PROPAGATION WORKER 10/06/2024 4:26 PM PROPAGATION WORKER us Priscilla Sarmiento MD LAB BLOOD ORDERABLES Final R esult Performing Organization Address City/[facility] Co de Phone Number [facility] [place] [address] * TSH (10/06/2024 3:59 PM PROPAGATION WORKER) Pathologist [facility] Thyroid Stimulating Hormone 3.88 0.30 - 4.20 mcIUnit/mL Blood 10/06/2024 3:59 PM PROPAGATION WORKER 10/06/2024 4:09 PM PROPAGATION WORKER us Oralia Cummings MD LAB BLOOD ORDERABLES Final Re sult Performing Organization Address [facility] Co de Phone Number [facility] [place] [address] * Vitamin B12 (10/06/2024 3:59 PM PROPAGATION WORKER) Pathologist [facility] Vitamin B12 420 230 - 1,250 pg/mL Blood 10/06/2024 3:5 9 PM PROPAGATION WORKER 10/06/2024 4:09 PM PROPAGATION WORKER us Oralia Cummings MD LAB BLOOD ORDERABLES Final Re sult Performing Organization Address [facility] Co de Phone Number [facility] [place] [address] * (ABNORMAL) Comprehensive metabolic panel (10/06/2024 3:59 PM PROPAGATION WORKER) Sodium 143 135 - 145 mmol/L Potassium, pl 4.3 3.3 - 4.9 mmol/L [facility] Chloride 104 97 - 110 mmol/L [facility] CO2 26 22 - 32 mmol/L [facility] Anion gap 13 2 - 15 mmol/L [facility] BUN 26(H) 6 - 25 mg/dL [facility] Creatinine 1.12 0.80 - 1.30 mg/dL [facility] Glucose 94 70 - 199 mg/dL [facility] Comment: Interpretive Data Fasting glucose >/= [...] 2022. Calcium 9.1 8.5 - 10.3 mg/dL [facility] Bilirubin, total 0.4 0.1 - 1.2 mg/dL [facility] Protein, pl 7.1 6.5 - 8.5 g/dL [facility] Albumin 3.9 3.5 - 5.0 g/dL [facility] Alk phos 45 40 - 130 Units/L [facility] ALT 15 7 - 55 Units/L [facility] AST 37 10 - 50 Units/L [facility] Blood 10/06/2024 3:59 PM PROPAGATION WORKER 10/06/2024 4:09 PM PROPAGATION WORKER Aneta Castellanos MD LAB BLOOD ORDERABLES Final R esult [facility] [address] [facility] Department [place] [address] * CT Head WO Contrast (10/06/2024 3:37 PM PROPAGATION WORKER) Anatomical Region Laterality Modality Head and Neck N/A Computed Tomogra phy 10/06/2024 4:29 PM PROPAGATION WORKER Impressions 10/06/2024 4:41 PM PROPAGATION WORKER No acute intracranial hemorrhage, large vessel territory infarction, mass effect, or midline shift. Dictated by: Nikolas Vega M.D. The radiology attending physician has personally reviewed this study, and had reviewed and/or edited this written report and agrees with it. Electronically signed by: Johnny Ballesteros M.D, PHD Narrative 10/06/2024 4:41 PM PROPAGATION WORKER EXAMINATION: CT head without contrast HISTORY: Altered [...] PA Lateral 2 Views (10/06/2024 3:30 PM PROPAGATION WORKER) Anatomical Region Laterality Modality Body, Chest N/A Computed Radiogr aphy 10/06/2024 3:42 PM PROPAGATION WORKER Impressions 10/06/2024 3:49 PM PROPAGATION WORKER Comparison with chest radiograph dated 07/12/2025. Median [...] Luna Perez M.D. Narrative 10/06/2024 3:49 PM PROPAGATION WORKER EXAMINATION: 2 view chest radiograph Procedure Note [...] lt * ECG 12-LEAD (10/06/2024 1:07 PM PROPAGATION WORKER) Narrative [facility] - 10/06/2024 1:07 PM PROPAGATION WORKER Nupur Orozco MD 10/06/2024 1:08 PM ECG 12 lead Date/Time: 10/06/2024 1:07 PM Performed by: Nupur Orzoco MD Authorized by: Jaylen Petersen MD Comments: EKG Interpretation Interpreted by ED physician in absence of a service control operator Ventricular rate: 65 bpm Rhythm: sinus with PACs [place]: Normal Intervals: 1st degree av block, wide QRS Other findings: no acute ischemia Interpretation: abnormal EKG, LBBB, ectopy Compared to priors: no priors for comparison us Aneta Castellanos MD ECG ORDERABLES Final Result [facility] * POCT glucose (10/06/2024 12:48 PM PROPAGATION WORKER) Glucose, POC 112 70 - 199 mg/dL Blood 10/06/2024 12:4 8 PM PROPAGATION WORKER 10/06/2024 12:48 PM PROPAGATION WORKER us Notinfile Unknown LAB POCT ORDERABLES - DEVICE F inal Result Performing Organization Address City/[facility]/ZIP Co de Phone Number [facility] [address] [facility] Department [place] [address] * eGFR (10/03/2024 4:00 PM PROPAGATION WORKER) eGFR 73 >=60 mL/min/1. 73 m2 Comment: [...] last reviewed 2021. Blood 10/03/2024 4:00 PM PROPAGATION WORKER 10/03/2024 4:23 PM PROPAGATION WORKER us Crescencio Vázquez MD LAB BLOOD ORDERABLES Final Resul t [facility] [address] [facility] Department [place] [address] * Differential, auto (10/03/2024 4:00 PM PROPAGATION WORKER) Neutrophil abs 3.7 1.5 - 6.5 K/cumm Imm gran abs 0.0 0.0 - 0.1 K/cumm [facility] Lymphocyte abs 1.5 0.8 - 3.3 K/cumm [facility] Monocyte abs 0.4 0.2 - 0.8 K/cumm [facility] Eosinophil abs 0.2 0.0 - 0.5 K/cumm [facility] Basophil abs 0.0 0.0 - 0.1 K/cumm [facility] Neutrophil pct 63.5 % [facility] Comment: Interpretive Data Percent cell count reference ranges are not reported, since discordance with absolute values may lead to misinterpretation of CBC data. Current Interpretive Data was last revised on 2017. Imm gran pct 0.3 % [facility] Comment: Interpretive Data Percent cell count reference ranges are not reported, since discordance with absolute values may lead to misinterpretation of CBC data. Current Interpretive Data was last revised on 2017. Lymphocyte pct 26.0 % [facility] Comment: Interpretive Data Percent cell count reference ranges are not reported, since discordance with absolute values may lead to misinterpretation of CBC data. Current Interpretive Data was last revised on 2017. Monocyte pct 7.1 % [facility] Comment: Interpretive Data Percent cell count reference ranges are not reported, since discordance with absolute values may lead to misinterpretation of CBC data. Current Interpretive Data was last revised on 2017. Eosinophil pct 2.6 % [facility] Comment: Interpretive Data Percent cell count reference ranges are not reported, since discordance with absolute values may lead to misinterpretation of CBC data. Current Interpretive Data was last revised on 2017. Basophil pct 0.5 % [facility] Comment: Interpretive Data Percent cell count reference ranges are not reported, since discordance with absolute values may lead to misinterpretation of CBC data. Current Interpretive Data was last revised on 2017. Blood 10/03/2024 4:00 PM PROPAGATION WORKER 10/03/2024 4:18 PM PROPAGATION WORKER us Crescencio Vázquez MD LAB BLOOD ORDERABLES Final Resul t [facility] [address] [facility] Department [place] [address] * (ABNORMAL) CBC with auto differential (10/03/2024 4:00 PM PROPAGATION WORKER) WBC 5.8 3.8 - 9.9 K/cumm Hgb 10.8(L) 13.0 - 17.5 g/dL [facility] Hct 32.5(L) 38.9 - 50.3 % [facility] Plt 143(L) 150 - 400 K/cumm [facility] MPV 11.6 9.1 - 12.3 fL [facility] RBC 3.54(L) 4.30 - 5.80 M/cumm [facility] MCV 91.8 81.3 - 96.4 fL [facility] MCH 30.5 27.1 - 33.3 pg [facility] MCHC 33.2 32.3 - 35.7 g/dL [facility] RDW CV 14.4 11.1 - 14.9 % [facility] RDW SD 48.6(H) 35.7 - 48.1 fL [facility] NRBC abs 0.00 0.00 - 0.01 K/cumm [facility] Blood 10/03/2024 4:00 PM PROPAGATION WORKER 10/03/2024 4:18 PM PROPAGATION WORKER us Crescencio Vázquez MD LAB BLOOD ORDERABLES Final Resul t Performing Organization Address [facility] Co de Phone Number [facility] Department [place] [address] * Basic metabolic panel (10/03/2024 4:00 PM PROPAGATION WORKER) Sodium 142 135 - 145 mmol/L Potassium, pl 3.8 3.3 - 4.9 mmol/L [facility] Chloride 104 97 - 110 mmol/L [facility] CO2 28 22 - 32 mmol/L [facility] Anion gap 10 2 - 15 mmol/L [facility] BUN 17 6 - 25 mg/dL [facility] Creatinine 1.01 0.80 - 1.30 mg/dL [facility] Glucose 179 70 - 199 mg/dL [facility] Comment: Interpretive Data Fasting glucose >/= [...] 2022. Calcium 8.5 8.5 - 10.3 mg/dL [facility] Blood 10/03/2024 4:00 PM PROPAGATION WORKER 10/03/2024 4:18 PM PROPAGATION WORKER Crescencio Vázquez MD LAB BLOOD ORDERABLES Final Resul t Performing Organization Address [facility]/ZIP Co de Phone Number [facility] Department [place] [address] * (ABNORMAL) POCT Activated clotting time, low range (10/03/2024 2:14 PM PROPAGATION WORKER) ACT 181(H) 123 - 168 sec POC Performer [id number] [facility] POC Device Number [id number] [facility] Blood 10/03/2024 2:14 PM PROPAGATION WORKER 10/03/2024 2:14 PM PROPAGATION WORKER us Nigel Holman MD LAB POCT ORDERABLES - DEVICE Final Result [facility] [place] [address] * RIGHT AND LEFT HEART CATHETERIZATION (10/03/2024 12:42 PM PROPAGATION WORKER) Anatomical Region Laterality Modality X-Ray Angiograph y Impressions 10/03/2024 2:26 PM PROPAGATION WORKER Severe stenosis of the mid LAD with [...] Nigel Holman MD Narrative 10/03/2024 2:26 PM PROPAGATION WORKER Table formatting from the original result was not included. Procedure: CORONARY ANGIOGRAM / RIGHT HEART CATHETERIZATION/ percutaneous coronary intervention Patient: Ashkan Pryor is a 84 y.o. male : 1940 MR number: [id number] Date of Service: 10/03/2024 [place] Supervisor: Nigel Holman MD Fellow: Crescencio Vázquez MD [...] The patient was brought to the labor relations supervisor and placed on the table Bilateral groins [...] performed Right heart catheterization preformed with 7 Ukrainian arrow [place] At the end of the procedure, arteriotomy [...] vasodilators and reimage that showed some slight nondenominational of flow. Upon review it looks as [...] clotting time, low range (10/03/2024 12:42 PM PROPAGATION WORKER) [facility] ACT 252(H) 123 - 168 sec POC Performer [id number] [facility] POC Device Number [id number] [facility] Blood 10/03/2024 12:4 2 PM PROPAGATION WORKER 10/03/2024 12:42 PM PROPAGATION WORKER us Nigel Holman MD LAB POCT ORDERABLES - DEVICE Final Result [facility] Department [place] [address] * Type and screen (10/03/2024 12:20 PM PROPAGATION WORKER) [facility] Lit, indirect Negative ABO Rh A Positive [facility] Blood 10/03/2024 12:2 0 PM PROPAGATION WORKER 10/03/2024 12:39 PM PROPAGATION WORKER Narrative [facility] - 10/03/2024 1:32 PM PROPAGATION WORKER Has the patient had Daratumumab or Isatuximab in the past 6 months?->Unknown Nigel Holman MD LAB BLOOD BANK TEST ORDERABL ES Final Result Performing Organization Address [facility] de Phone Number [facility] [place] [address] * (ABNORMAL) POCT Activated clotting time, low range (10/03/2024 12:06 PM PROPAGATION WORKER) Pathologist [facility] ACT 240(H) 123 - 168 sec POC Performer [id number] [facility] POC Device Number [id number] [facility] Blood 10/03/2024 12:0 6 PM PROPAGATION WORKER 10/03/2024 12:06 PM PROPAGATION WORKER Nigel Holman MD LAB POCT ORDERABLES - DEVICE Final Result Performing Organization Address [facility] de Phone Number [facility] [place] [address] * (ABNORMAL) POCT oxyhemoglobin (10/03/2024 11:47 AM PROPAGATION WORKER) Pathologist [facility] [employer] Oxyhemoglobin 95.3 >=65.0 % [facility] Hemoglobin 11.7(L) 13.0 - 17.5 g/dL [facility] [employer] O2 content 15.5 15.0 - 22.0 Vol % [facility] Anatomic Site aPOC Aorta descend [facility] Blood 10/03/2024 11:4 7 AM PROPAGATION WORKER 10/03/2024 11:47 AM PROPAGATION WORKER Nigel Holman MD LAB POCT ORDERABLES - DEVICE Final Result Performing Organization Address [facility] de Phone Number [facility] Department [place] [address] * (ABNORMAL) POCT oxyhemoglobin (10/03/2024 11:45 AM PROPAGATION WORKER) [facility] [employer] Oxyhemoglobin 67.9 >=65.0 % [facility] Hemoglobin 11.0(L) 13.0 - 17.5 g/dL [facility] [employer] O2 content 10.4(L) 15.0 - 22.0 Vol % [facility] Anatomic Site aPOC Pulm Art main [facility] Blood 10/03/2024 11:4 5 AM PROPAGATION WORKER 10/03/2024 11:45 AM PROPAGATION WORKER Nigel Holman MD LAB POCT ORDERABLES - DEVICE Final Result [facility] Department [place] [address] * (ABNORMAL) CBC without differential (10/03/2024 11:45 AM PROPAGATION WORKER) [facility] WBC 6.8 3.8 - 9.9 K/cumm Hgb 11.3(L) 13.0 - 17.5 g/dL [facility] Hct 34.2(L) 38.9 - 50.3 % [facility] Plt 142(L) 150 - 400 K/cumm [facility] MPV 11.3 9.1 - 12.3 fL [facility] RBC 3.65(L) 4.30 - 5.80 M/cumm [facility] MCV 93.7 81.3 - 96.4 fL [facility] MCH 31.0 27.1 - 33.3 pg [facility] MCHC 33.0 32.3 - 35.7 g/dL [facility] RDW CV 14.1 11.1 - 14.9 % [facility] RDW SD 49.1(H) 35.7 - 48.1 fL [facility] NRBC abs 0.00 0.00 - 0.01 K/cumm [facility] Blood 10/03/2024 11:4 5 AM PROPAGATION WORKER 10/03/2024 11:51 AM PROPAGATION WORKER Narrative [facility] - 10/03/2024 12:12 PM PROPAGATION WORKER To be drawn after hydration bolus complete us Nigel Holman MD LAB BLOOD ORDERABLES Final R esult Performing Organization Address [facility] Co de Phone Number [facility] Department [place] [address] * (ABNORMAL) POCT oxyhemoglobin (10/03/2024 11:44 AM PROPAGATION WORKER) [facility] [employer] Oxyhemoglobin 69.1 >=65.0 % [facility] Hemoglobin 11.3(L) 13.0 - 17.5 g/dL [facility] [employer] O2 content 10.9(L) 15.0 - 22.0 Vol % [facility] Anatomic Site aPOC Pulm Art main [facility] Blood 10/03/2024 11:4 4 AM PROPAGATION WORKER 10/03/2024 11:44 AM PROPAGATION WORKER us Nigel Holman MD LAB POCT ORDERABLES - DEVICE Final Result Performing Organization Address [facility] de Phone Number [facility] Department [place] [address] * POCT glucose (10/03/2024 8:45 AM PROPAGATION WORKER) Glucose, POC 117 70 - 199 mg/dL Blood 10/03/2024 8:45 AM PROPAGATION WORKER 10/03/2024 8:45 AM PROPAGATION WORKER us Nigel Holman MD LAB POCT ORDERABLES - DEVICE Final Result Performing Organization Address [facility] [place] [address] * Basic metabolic panel (09/29/2024 9:42 AM PROPAGATION WORKER) Glucose 99 65 - 99 mg/dL [facility] Comment: Fasting reference interval BUN 23 7 - 25 mg/dL Melodie Villanueva Creatinine 0.96 0.70 - 1.22 mg/dL Melodie Villanueva eGFR 77 > OR = 60 mL/min/1.7 3m2 Melodie Villanueva BUN/creat ratio SEE NOTE: 6 (calc) Melodie Villanueva Comment: Not Reported: BUN and Creatinine are within reference range. Sodium 142 135 - 146 mmol/L Melodie HaydenThe Electrospinning CompanyMin [facility] Potassium, pl 4.0 3.5 - 5.3 mmol/L [facility] HaydenThe [employer]spin[employer] CompanyMin [place] Chloride 103 98 - 110 mmol/L Melodie HadyenThe Electrospin[employer] CompanyMin [place] CO2 32 20 - 32 mmol/L Melodie SaranasMin [place] Calcium 8.9 8.6 - 10.3 mg/dL Melodie SaranasMin [place] Blood 09/29/2024 9:42 AM PROPAGATION WORKER 09/29/2024 9:42 AM PROPAGATION WORKER Rehan Sheth MD LAB BLOOD ORDERABLES F inal Result [facility] [address] [place] [address] * (ABNORMAL) eGFR (09/24/2024 5:03 PM PROPAGATION WORKER) eGFR 55(L) >=60 mL/min/1. 73 m2 Comment: [...] last reviewed 2021. Blood 09/24/2024 5:03 PM PROPAGATION WORKER 09/24/2024 5:24 PM PROPAGATION WORKER Rehan Sheth MD LAB BLOOD ORDERABLES F inal Result [facility] Department [place] [address] * Differential, auto (09/24/2024 5:03 PM PROPAGATION WORKER) Neutrophil abs 3.6 1.5 - 6.5 K/cumm Imm gran abs 0.0 0.0 - 0.1 K/cumm [facility] Lymphocyte abs 1.9 0.8 - 3.3 K/cumm [facility] Monocyte abs 0.6 0.2 - 0.8 K/cumm [facility] Eosinophil abs 0.2 0.0 - 0.5 K/cumm [facility] Basophil abs 0.0 0.0 - 0.1 K/cumm [facility] Neutrophil pct 56.5 % [facility] Comment: Interpretive Data Percent cell count reference ranges are not reported, since discordance with absolute values may lead to misinterpretation of CBC data. Current Interpretive Data was last revised on 2017. Imm gran pct 0.6 % [facility] Comment: Interpretive Data Percent cell count reference ranges are not reported, since discordance with absolute values may lead to misinterpretation of CBC data. Current Interpretive Data was last revised on 2017. Lymphocyte pct 30.0 % [facility] Comment: Interpretive Data Percent cell count reference ranges are not reported, since discordance with absolute values may lead to misinterpretation of CBC data. Current Interpretive Data was last revised on 2017. Monocyte pct 9.1 % [facility] Comment: Interpretive Data Percent cell count reference ranges are not reported, since discordance with absolute values may lead to misinterpretation of CBC data. Current Interpretive Data was last revised on 2017. Eosinophil pct 3.3 % [facility] Comment: Interpretive Data Percent cell count [...] revised on 2017. Blood 09/24/2024 5:03 PM PROPAGATION WORKER 09/24/2024 5:24 PM PROPAGATION WORKER us Rehan Sheth MD LAB BLOOD ORDERABLES F inal Result [facility] Department [place] [address] * (ABNORMAL) Pro B-type natriuretic peptide (09/24/2024 5:03 PM PROPAGATION WORKER) NT-proBNP 2,036(H) <=450 pg/mL Comment: Interpretive Comments: [...] Revised Date: 2018. Blood 09/24/2024 5:03 PM PROPAGATION WORKER 09/24/2024 5:24 PM PROPAGATION WORKER Rehan Sheth MD LAB BLOOD ORDERABLES F inal Result Performing Organization Address [facility] Co de Phone Number [facility] Department [place] [address] * (ABNORMAL) CBC with auto differential (09/24/2024 5:03 PM PROPAGATION WORKER) Pathologist [facility] WBC 6.3 3.8 - 9.9 K/cumm Hgb 11.7(L) 13.0 - 17.5 g/dL [facility] Hct 35.3(L) 38.9 - 50.3 % [facility] Plt 184 150 - 400 K/cumm [facility] MPV 11.3 9.1 - 12.3 fL [facility] RBC 3.76(L) 4.30 - 5.80 M/cumm [facility] MCV 93.9 81.3 - 96.4 fL [facility] MCH 31.1 27.1 - 33.3 pg [facility] MCHC 33.1 32.3 - 35.7 g/dL [facility] RDW CV 14.6 11.1 - 14.9 % [facility] RDW SD 50.4(H) 35.7 - 48.1 fL [facility] NRBC abs 0.00 0.00 - 0.01 K/cumm [facility] Blood 09/24/2024 5:03 PM PROPAGATION WORKER 09/24/2024 5:24 PM PROPAGATION WORKER Rehan Sheth MD LAB BLOOD ORDERABLES F inal Result Performing Organization Address [facility] Co de Phone Number [facility] Department [place] [address] * (ABNORMAL) Basic metabolic panel (09/24/2024 5:03 PM PROPAGATION WORKER) [facility] Sodium 145 135 - 145 mmol/L Potassium, pl 3.7 3.3 - 4.9 mmol/L [facility] Chloride 107 97 - 110 mmol/L [facility] CO2 30 22 - 32 mmol/L [facility] Anion gap 8 2 - 15 mmol/L [facility] BUN 31(H) 6 - 25 mg/dL [facility] Creatinine 1.27 0.80 - 1.30 mg/dL [facility] Glucose 89 70 - 199 mg/dL [facility] Comment: Interpretive Data Fasting glucose >/= [...] 2022. Calcium 9.0 8.5 - 10.3 mg/dL [facility] Blood 09/24/2024 5:03 PM PROPAGATION WORKER 09/24/2024 5:24 PM PROPAGATION WORKER Rehan Sheth MD LAB BLOOD ORDERABLES F inal Result [facility] Department [place] [address] * ECG 12 lead (09/24/2024 4:01 PM PROPAGATION WORKER) Rehan Sheth MD ECG ORDERABLES Edited Result - Final * eGFR (09/14/2024 8:23 AM PROPAGATION WORKER) [facility] eGFR 63 >=60 mL/min/1. 73 m2 [...] last reviewed 2021. Blood 09/14/2024 8:23 AM PROPAGATION WORKER 09/14/2024 8:45 AM PROPAGATION WORKER us Dalila Torres MD LAB BLOOD ORDERABLES Fi nal Result [facility] Department [place] [address] * (ABNORMAL) Basic metabolic panel (09/14/2024 8:23 AM PROPAGATION WORKER) Sodium 140 135 - 145 mmol/L Potassium, pl 4.0 3.3 - 4.9 mmol/L [facility] Chloride 104 97 - 110 mmol/L [facility] CO2 27 22 - 32 mmol/L [facility] Anion gap 9 2 - 15 mmol/L [facility] BUN 28(H) 6 - 25 mg/dL [facility] Creatinine 1.14 0.80 - 1.30 mg/dL [facility] Glucose 108 70 - 199 mg/dL [facility] Comment: Interpretive Data Fasting glucose >/= [...] Calcium 8.8 8.5 - 10.3 mg/dL [facility] Blood 09/14/2024 8:23 AM PROPAGATION WORKER 09/14/2024 8:45 AM PROPAGATION WORKER us Dalila Torres MD LAB BLOOD ORDERABLES Fi nal Result Performing Organization Address City/[facility]/ZIP Co de Phone Number [facility] Department [place] [address] * (ABNORMAL) eGFR (09/13/2024 9:57 PM PROPAGATION WORKER) eGFR 49(L) >=60 mL/min/1. 73 m2 Comment: [...] last reviewed 2021. Blood 09/13/2024 9:57 PM PROPAGATION WORKER 09/13/2024 10:27 PM PROPAGATION WORKER us Dalila Torres MD LAB BLOOD ORDERABLES Fi nal Result [facility] Department [place] [address] * (ABNORMAL) CBC without differential (09/13/2024 9:57 PM PROPAGATION WORKER) [facility] WBC 6.4 3.8 - 9.9 K/cumm Hgb 11.1(L) 13.0 - 17.5 g/dL [facility] Hct 33.4(L) 38.9 - 50.3 % [facility] Plt 152 150 - 400 K/cumm [facility] MPV 11.2 9.1 - 12.3 fL [facility] RBC 3.53(L) 4.30 - 5.80 M/cumm [facility] MCV 94.6 81.3 - 96.4 fL [facility] MCH 31.4 27.1 - 33.3 pg [facility] MCHC 33.2 32.3 - 35.7 g/dL [facility] RDW CV 14.9 11.1 - 14.9 % [facility] RDW SD 52.3(H) 35.7 - 48.1 fL [facility] NRBC abs 0.00 0.00 - 0.01 K/cumm [facility] Blood 09/13/2024 9:57 PM PROPAGATION WORKER 09/13/2024 10:27 PM PROPAGATION WORKER us Dalila Torres MD LAB BLOOD ORDERABLES Fi nal Result Performing Organization Address City/[facility]/ZIP Co de Phone Number [facility] Department [place] [address] * Magnesium (09/13/2024 9:57 PM PROPAGATION WORKER) [facility] Magnesium 2.1 1.4 - 2.5 mg/dL Blood 09/13/2024 9:57 PM PROPAGATION WORKER 09/13/2024 10:27 PM PROPAGATION WORKER us Dalila Torres MD LAB BLOOD ORDERABLES Fi nal Result Performing Organization Address [facility]/ZIP Co de Phone Number [facility] Department [place] [address] * (ABNORMAL) Basic metabolic panel (09/13/2024 9:57 PM PROPAGATION WORKER) [facility] Sodium 139 135 - 145 mmol/L Potassium, pl 3.7 3.3 - 4.9 mmol/L [facility] Chloride 102 97 - 110 mmol/L [facility] CO2 28 22 - 32 mmol/L [facility] Anion gap 9 2 - 15 mmol/L [facility] BUN 35(H) 6 - 25 mg/dL [facility] Creatinine 1.41(H) 0.80 - 1.30 mg/dL [facility] Glucose 126 70 - 199 mg/dL [facility] Comment: Interpretive Data Fasting glucose >/= [...] 2022. Calcium 8.7 8.5 - 10.3 mg/dL [facility] Blood 09/13/2024 9:57 PM PROPAGATION WORKER 09/13/2024 10:27 PM PROPAGATION WORKER us Dalila Torres MD LAB BLOOD ORDERABLES Fi nal Result [facility] Department [place] [address] * (ABNORMAL) eGFR (09/12/2024 8:13 PM PROPAGATION WORKER) [facility] eGFR 51(L) >=60 mL/min/1. 73 [...] last reviewed 2021. Blood 09/12/2024 8:13 PM PROPAGATION WORKER 09/12/2024 8:55 PM PROPAGATION WORKER us Dalila Torres MD LAB BLOOD ORDERABLES Fi nal Result [facility] Department [place] [address] * (ABNORMAL) CBC without differential (09/12/2024 8:13 PM PROPAGATION WORKER) WBC 7.4 3.8 - 9.9 K/cumm Hgb 11.0(L) 13.0 - 17.5 g/dL [facility] Hct 33.7(L) 38.9 - 50.3 % [facility] Plt 181 150 - 400 K/cumm [facility] MPV 11.1 9.1 - 12.3 fL [facility] RBC 3.60(L) 4.30 - 5.80 M/cumm [facility] MCV 93.6 81.3 - 96.4 fL [facility] MCH 30.6 27.1 - 33.3 pg [facility] MCHC 32.6 32.3 - 35.7 g/dL [facility] RDW CV 14.8 11.1 - 14.9 % [facility] RDW SD 51.2(H) 35.7 - 48.1 fL [facility] NRBC abs 0.00 0.00 - 0.01 K/cumm [facility] Blood 09/12/2024 8:13 PM PROPAGATION WORKER 09/12/2024 8:54 PM PROPAGATION WORKER Dalila Torres MD LAB BLOOD ORDERABLES Fi nal Result Performing Organization Address City/[facility] Co de Phone Number [facility] [place] [address] * Magnesium (09/12/2024 8:13 PM PROPAGATION WORKER) Pathologist [facility] Magnesium 2.0 1.4 - 2.5 mg/dL Blood 09/12/2024 8:13 PM PROPAGATION WORKER 09/12/2024 8:55 PM PROPAGATION WORKER Dalila Torres MD LAB BLOOD ORDERABLES Fi nal Result Performing Organization Address [facility] de Phone Number [facility] [place] [address] * (ABNORMAL) Basic metabolic panel (09/12/2024 8:13 PM PROPAGATION WORKER) [facility] Sodium 141 135 - 145 mmol/L Potassium, pl 3.8 3.3 - 4.9 mmol/L [facility] Chloride 106 97 - 110 mmol/L [facility] CO2 26 22 - 32 mmol/L [facility] Anion gap 9 2 - 15 mmol/L [facility] BUN 31(H) 6 - 25 mg/dL [facility] Creatinine 1.37(H) 0.80 - 1.30 mg/dL [facility] Glucose 102 70 - 199 mg/dL [facility] Comment: Interpretive Data Fasting glucose >/= [...] 2022. Calcium 8.4(L) 8.5 - 10.3 mg/dL [facility] Blood 09/12/2024 8:13 PM PROPAGATION WORKER 09/12/2024 8:55 PM PROPAGATION WORKER us Dalila Torres MD LAB BLOOD ORDERABLES Fi nal Result Performing Organization Address City/[facility] Co de Phone Number [facility] [place] [address] * Sodium, urine, random (09/12/2024 12:36 PM PROPAGATION WORKER) Sodium, ur 72 mmol/L Comment: Interpretive Data No reference range established. Current interpretive data was last revised 2018. Urine 09/12/2024 12:3 6 PM PROPAGATION WORKER 09/12/2024 4:22 PM PROPAGATION WORKER us Dalila Torres MD LAB URINE ORDERABLES Fi nal Result Performing Organization Address [facility] Co de Phone Number [facility] [place] [address] * POCT glucose (09/12/2024 7:52 AM PROPAGATION WORKER) Glucose, POC 103 70 - 199 mg/dL Blood 09/12/2024 7:52 AM PROPAGATION WORKER 09/12/2024 7:52 AM PROPAGATION WORKER Dalila Torres MD LAB POCT ORDERABLES - D EVICE Final Result Performing Organization Address [facility] Co de Phone Number [facility] [place] [address] * POCT glucose (09/12/2024 6:21 AM PROPAGATION WORKER) Glucose, POC 92 70 - 199 mg/dL Blood 09/12/2024 6:21 AM PROPAGATION WORKER 09/12/2024 6:21 AM PROPAGATION WORKER Dalila Torres MD LAB POCT ORDERABLES - D EVICE Final Result Performing Organization Address City/[facility] Co de Phone Number [facility] [place] [address] * POCT glucose (09/12/2024 2:15 AM PROPAGATION WORKER) Glucose, POC 178 70 - 199 mg/dL Blood 09/12/2024 2:15 AM PROPAGATION WORKER 09/12/2024 2:15 AM PROPAGATION WORKER Dalila Torres MD LAB POCT ORDERABLES - D EVICE Final Result Performing Organization Address [facility] Co de Phone Number [facility] Department [place] [address] * (ABNORMAL) eGFR (09/11/2024 11:44 PM PROPAGATION WORKER) eGFR 54(L) >=60 mL/min/1. 73 m2 Comment: [...] reviewed 2021. Blood 09/11/2024 11:4 4 PM PROPAGATION WORKER 09/12/2024 12:17 AM PROPAGATION WORKER us Dalila Torres MD LAB BLOOD ORDERABLES Fi nal Result Performing Organization Address City/[facility]/ZIP Co de Phone Number [facility] Department [place] [address] * (ABNORMAL) CBC without differential (09/11/2024 11:44 PM PROPAGATION WORKER) WBC 7.1 3.8 - 9.9 K/cumm Hgb 11.5(L) 13.0 - 17.5 g/dL [facility] Hct 34.7(L) 38.9 - 50.3 % [facility] Plt 172 150 - 400 K/cumm [facility] MPV 10.9 9.1 - 12.3 fL [facility] RBC 3.70(L) 4.30 - 5.80 M/cumm [facility] MCV 93.8 81.3 - 96.4 fL [facility] MCH 31.1 27.1 - 33.3 pg [facility] MCHC 33.1 32.3 - 35.7 g/dL [facility] RDW CV 14.9 11.1 - 14.9 % [facility] RDW SD 51.1(H) 35.7 - 48.1 fL [facility] NRBC abs 0.00 0.00 - 0.01 K/cumm [facility] Blood 09/11/2024 11:4 4 PM PROPAGATION WORKER 09/12/2024 12:17 AM PROPAGATION WORKER us Dalila Torres MD LAB BLOOD ORDERABLES Fi nal Result [facility] Department [place] [address] * Magnesium (09/11/2024 11:44 PM PROPAGATION WORKER) Magnesium 2.1 1.4 - 2.5 mg/dL Blood 09/11/2024 11:4 4 PM PROPAGATION WORKER 09/12/2024 12:17 AM PROPAGATION WORKER us Dalila Torres MD LAB BLOOD ORDERABLES Fi nal Result [facility] Department [place] [address] * (ABNORMAL) Basic metabolic panel (09/11/2024 11:44 PM PROPAGATION WORKER) [facility] Sodium 142 135 - 145 mmol/L Potassium, pl 3.5 3.3 - 4.9 mmol/L [facility] Chloride 104 97 - 110 mmol/L [facility] CO2 27 22 - 32 mmol/L [facility] Anion gap 11 2 - 15 mmol/L [facility] BUN 30(H) 6 - 25 mg/dL [facility] Creatinine 1.30 0.80 - 1.30 mg/dL [facility] Glucose 74 70 - 199 mg/dL [facility] Comment: Interpretive Data Fasting glucose >/= [...] 2022. Calcium 8.8 8.5 - 10.3 mg/dL [facility] Blood 09/11/2024 11:4 4 PM PROPAGATION WORKER 09/12/2024 12:17 AM PROPAGATION WORKER us Dalila Torres MD LAB BLOOD ORDERABLES Fi nal Result Performing Organization Address [facility] Co de Phone Number [facility] Department [place] [address] * POCT glucose (09/11/2024 8:14 PM PROPAGATION WORKER) Glucose, POC 142 70 - 199 mg/dL Blood 09/11/2024 8:14 PM PROPAGATION WORKER 09/11/2024 8:14 PM PROPAGATION WORKER Dalila Torres MD LAB POCT ORDERABLES - D EVICE Final Result Performing Organization Address [facility]/ZIP Co de Phone Number [facility] [place] [address] * POCT glucose (09/11/2024 5:23 PM PROPAGATION WORKER) Pathologist [facility] Glucose, POC 91 70 - 199 mg/dL Blood 09/11/2024 5:2 3 PM PROPAGATION WORKER 09/11/2024 5:[address] Tai MD LAB POCT ORDERABLES - DEVICE Final Result Performing Organization Address [facility] de Phone Number [facility] [place] [address] * Troponin I high-sensitivity 4-hour (09/11/2024 3:10 PM PROPAGATION WORKER) [facility] Trop I hs 13 <=35 ng/L Comment: Interpretive Data For further hscTnI resources including the diagnostic algorithm and an aid in interpretation, copy and paste this link: https://bjhlab.testcatalog.org/show/hsTrop-1 Current Interpretive Data last revised 2020. Trop I hs delta -1 ng/L [facility] Trop I hs interp Insignificant [facility] Blood 09/11/2024 3:10 PM PROPAGATION WORKER 09/11/2024 3:22 PM PROPAGATION WORKER Ricki Ramirez MD LAB BLOOD ORDERABLES Final Result Performing Organization Address [facility]/ZIP Co de Phone Number [facility] [place] [address] * POCUS Cardiac (09/11/2024 1:58 PM PROPAGATION WORKER) Anatomical Region Laterality Modality Other 09/11/2024 1:28 PM PROPAGATION WORKER Narrative 09/11/2024 3:02 PM PROPAGATION WORKER Performed by: Jose Martin Guevara Cardiac: Exam [...] Troponin I high-sensitivity 2-hour (09/11/2024 1:30 PM PROPAGATION WORKER) Trop I hs 14 <=35 ng/L Comment: Interpretive Data For further hscTnI resources including the diagnostic algorithm and an aid in interpretation, copy and paste this link: https://bjhlab.testcatalog.org/show/hsTrop-1 Current Interpretive Data last revised 2020. Trop I hs delta 0 ng/L [facility] Trop I hs interp Insignificant [facility] Blood 09/11/2024 1:30 PM PROPAGATION WORKER 09/11/2024 2:03 PM PROPAGATION WORKER us Ricki Ramirez MD LAB BLOOD ORDERABLES Final Result [facility] Department [place] [address] * (ABNORMAL) Pro B-type natriuretic peptide (09/11/2024 1:30 PM PROPAGATION WORKER) NT-proBNP 1,193(H) <=450 pg/mL Comment: Interpretive Comments: [...] Revised Date: 2018. Blood 09/11/2024 1:30 PM PROPAGATION WORKER 09/11/2024 2:[address] us [address] De Leon MD LAB BLOOD ORDERABLES Final Result Performing Organization Address City/State/[facility] Co md Phone Number [facility] [place] [address] * XR Chest Pa Lateral 2 Views (09/11/2024 11:13 AM PROPAGATION WORKER) Anatomical Region Laterality Modality Body, Chest N/A Computed Radiogr aphy 09/11/2024 11:4 4 AM PROPAGATION WORKER Impressions 09/11/2024 11:44 AM PROPAGATION WORKER Comparison to 12/21/2023. 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 Heart and mediastinum are unchanged. There is no pneumothorax or pleural effusion. Small lung volumes with scarring in the left midlung that is similar to the prior CT. No new focal pulmonary opacity. Electronically signed by: Eric Balbuena M.D. Narrative 09/11/2024 11:44 AM PROPAGATION WORKER EXAMINATION: 2 view chest radiograph Procedure Note [...] (baseline, 2hr, 4hr, 6hr) (09/11/2024 11:03 AM PROPAGATION WORKER) Trop I hs 14 <=35 ng/L Comment: Interpretive Data For further hscTnI resources including the diagnostic algorithm and an aid in interpretation, copy and paste this link: https://bjhlab.testcatalog.org/show/hsTrop-1 Current Interpretive Data last revised 2020. Blood 09/11/2024 11:0 3 AM PROPAGATION WORKER 09/11/2024 11:20 AM PROPAGATION WORKER Joseph Lucas MD LAB BLOOD ORDERABLES Shanna l Result Performing Organization Address City/[facility]/ZIP Co de Phone Number [facility] [place] [address] * (ABNORMAL) eGFR (09/11/2024 11:03 AM PROPAGATION WORKER) eGFR 49(L) >=60 mL/min/1. 73 m2 Comment: [...] reviewed 2021. Blood 09/11/2024 11:0 3 AM PROPAGATION WORKER 09/11/2024 11:20 AM PROPAGATION WORKER Joseph Lucas MD LAB BLOOD ORDERABLES Shanna l Result Performing Organization Address City/[facility]/ZIP Co de Phone Number [facility] [place] [address] * Differential, auto (09/11/2024 11:03 AM PROPAGATION WORKER) Neutrophil abs 4.9 1.5 - 6.5 K/cumm Imm gran abs 0.0 0.0 - 0.1 K/cumm [facility] Lymphocyte abs 1.4 0.8 - 3.3 K/cumm [facility] Monocyte abs 0.7 0.2 - 0.8 K/cumm [facility] Eosinophil abs 0.1 0.0 - 0.5 K/cumm [facility] Basophil abs 0.0 0.0 - 0.1 K/cumm [facility] Neutrophil pct 67.9 % [facility] Comment: Interpretive Data Percent cell count reference ranges are not reported, since discordance with absolute values may lead to misinterpretation of CBC data. Current Interpretive Data was last revised on 2017. Imm gran pct 0.4 % [facility] Comment: Interpretive Data Percent cell count reference ranges are not reported, since discordance with absolute values may lead to misinterpretation of CBC data. Current Interpretive Data was last revised on 2017. Lymphocyte pct 19.8 % [facility] Comment: Interpretive Data Percent cell count reference ranges are not reported, since discordance with absolute values may lead to misinterpretation of CBC data. Current Interpretive Data was last revised on 2017. Monocyte pct 9.6 % [facility] Comment: Interpretive Data Percent cell count reference ranges are not reported, since discordance with absolute values may lead to misinterpretation of CBC data. Current Interpretive Data was last revised on 2017. Eosinophil pct 1.9 % [facility] Comment: Interpretive Data Percent cell count reference ranges are not reported, since discordance with absolute values may lead to misinterpretation of CBC data. Current Interpretive Data was last revised on 2017. Basophil pct 0.4 % [facility] Comment: Interpretive Data Percent cell count reference ranges are not reported, since discordance with absolute values may lead to misinterpretation of CBC data. Current Interpretive Data was last revised on 2017. Blood 09/11/2024 11:0 3 AM PROPAGATION WORKER 09/11/2024 11:20 AM PROPAGATION WORKER Joseph Lucas MD LAB BLOOD ORDERABLES Shanna orozco Result Performing Organization Address [facility] Co de Phone Number [facility] Department [place] [address] * (ABNORMAL) CBC with auto differential (09/11/2024 11:03 AM PROPAGATION WORKER) Pathologist [facility] WBC 7.3 3.8 - 9.9 K/cumm Hgb 11.0(L) 13.0 - 17.5 g/dL [facility] Hct 33.2(L) 38.9 - 50.3 % [facility] Plt 175 150 - 400 K/cumm [facility] MPV 10.6 9.1 - 12.3 fL [facility] RBC 3.51(L) 4.30 - 5.80 M/cumm [facility] MCV 94.6 81.3 - 96.4 fL [facility] MCH 31.3 27.1 - 33.3 pg [facility] MCHC 33.1 32.3 - 35.7 g/dL [facility] RDW CV 14.9 11.1 - 14.9 % [facility] [facility] RDW SD 51.4(H) 35.7 - 48.1 fL [facility] NRBC abs 0.00 0.00 - 0.01 K/cumm [facility] Blood (Blood, Venous) 09/11/2024 11:03 AM PROPAGATION WORKER 09/11/2024 11:20 AM PROPAGATION WORKER Joseph Lucas MD LAB BLOOD ORDERABLES Shanna l Result Performing Organization Address City/[facility]/ZIP Co de Phone Number [facility] Department [place] [address] * (ABNORMAL) Comprehensive metabolic panel (09/11/2024 11:03 AM PROPAGATION WORKER) Pathologist [facility] Sodium 142 135 - 145 mmol/L Potassium, pl 3.6 3.3 - 4.9 mmol/L [facility] Chloride 102 97 - 110 mmol/L [facility] CO2 28 22 - 32 mmol/L [facility] Anion gap 12 2 - 15 mmol/L [facility] BUN 33(H) 6 - 25 mg/dL [facility] Creatinine 1.40(H) 0.80 - 1.30 mg/dL [facility] Glucose 114 70 - 199 mg/dL [facility] Comment: Interpretive Data Fasting glucose >/= [...] 2022. Calcium 8.9 8.5 - 10.3 mg/dL [facility] Bilirubin, total 0.4 0.1 - 1.2 mg/dL [facility] Protein, pl 6.9 6.5 - 8.5 g/dL [facility] Albumin 3.9 3.5 - 5.0 g/dL [facility] Alk phos 43 40 - 130 Units/L [facility] ALT 13 7 - 55 Units/L [facility] AST 24 10 - 50 Units/L [facility] Blood 09/11/2024 11:0 3 AM PROPAGATION WORKER 09/11/2024 11:20 AM PROPAGATION WORKER us Joseph Lucas MD LAB BLOOD ORDERABLES Shanna l Result [facility] Department [place] [address] * ECG 12-LEAD (09/11/2024 10:52 AM PROPAGATION WORKER) Narrative [facility] - 09/11/2024 10:52 AM PROPAGATION WORKER Hermilo Linares MD 09/11/2024 10:55 AM ECG [...] ORDERABLES Final Res ult Performing Organization Address City/[facility]/ZIP Co de Phone Number [facility] * POCT glucose (09/11/2024 10:48 AM PROPAGATION WORKER) Glucose, POC 112 70 - 199 mg/dL Blood 09/11/2024 10:4 8 AM PROPAGATION WORKER 09/11/2024 10:48 AM PROPAGATION WORKER us Notinfile Unknown LAB POCT ORDERABLES - DEVICE F inal Result [facility] Department [place] [address] * (ABNORMAL) eGFR (09/10/2024 12:26 PM PROPAGATION WORKER) eGFR 54(L) >=60 mL/min/1. 73 m2 Comment: [...] reviewed 2021. Blood 09/10/2024 12:2 6 PM PROPAGATION WORKER 09/10/2024 1:37 PM PROPAGATION WORKER us Rehan Sheth MD LAB BLOOD ORDERABLES F inal Result [facility] Department [place] [address] * (ABNORMAL) Pro B-type natriuretic peptide (09/10/2024 12:26 PM PROPAGATION WORKER) NT-proBNP 2,273(H) <=450 pg/mL Comment: Interpretive Comments: [...] Date: 2018. Blood 09/10/2024 12:2 6 PM PROPAGATION WORKER 09/10/2024 1:32 PM PROPAGATION WORKER Rehan Sheth MD LAB BLOOD ORDERABLES F inal Result [facility] Department [place] [address] * (ABNORMAL) Basic metabolic panel (09/10/2024 12:26 PM PROPAGATION WORKER) Sodium 142 135 - 145 mmol/L Potassium, pl 3.9 3.3 - 4.9 mmol/L [facility] Chloride 104 97 - 110 mmol/L [facility] CO2 28 22 - 32 mmol/L [facility] Anion gap 10 2 - 15 mmol/L [facility] BUN 31(H) 6 - 25 mg/dL [facility] Creatinine 1.29 0.80 - 1.30 mg/dL [facility] Glucose 126 70 - 199 mg/dL [facility] Comment: Interpretive Data Fasting glucose >/= [...] Calcium 9.2 8.5 - 10.3 mg/dL [facility] Blood 09/10/2024 12:2 6 PM PROPAGATION WORKER 09/10/2024 1:32 PM PROPAGATION WORKER Rehan Sheth MD LAB BLOOD ORDERABLES F inal Result [facility] Department [place] [address] * ECG 12 lead (09/10/2024 11:33 AM PROPAGATION WORKER) Rehan Sheth MD ECG ORDERABLES Edited Result - Final * XR Scoliosis Ap and Lateral (08/26/2024 11:42 AM PROPAGATION WORKER) Anatomical Region Laterality Modality Spine N/A Computed Radiogr aphy 08/26/2024 12:3 0 PM PROPAGATION WORKER Impressions 08/26/2024 12:30 PM PROPAGATION WORKER 1. Mild thoracolumbar curvature with leftward coronal and anterior sagittal imbalance Electronically signed by: Mehran Sotomayor MD Narrative 08/26/2024 12:30 PM PROPAGATION WORKER EXAMINATION: XR SCOLIOSIS AP AND LATERAL HISTORY: [...] (ABNORMAL) Basic metabolic panel (07/30/2024 12:37 PM PROPAGATION WORKER) Glucose 143(H) 65 - 99 mg/dL [facility] Comment: Fasting reference interval For someone without known diabetes, a glucose value >125 mg/dL indicates that they may have diabetes and this should be confirmed with a follow-up test. BUN 22 7 - 25 mg/dL [facility] Creatinine 1.04 0.70 - 1.22 mg/dL [facility] eGFR 71 > OR = 60 mL/min/1.7 3m2 [facility] BUN/creat ratio SEE NOTE: 6 - 22 (calc) [facility] Comment: Not Reported: BUN and Creatinine are within reference range. Sodium 141 135 - 146 mmol/L [facility] Potassium, pl 4.2 3.5 - 5.3 mmol/L [facility] Chloride 103 98 - 110 mmol/L [facility] CO2 30 20 - 32 mmol/L [facility] Calcium 8.9 8.6 - 10.3 mg/dL [facility] Blood 07/30/2024 12:3 7 PM PROPAGATION WORKER 07/30/2024 12:38 PM PROPAGATION WORKER Rehan Sheth MD LAB BLOOD ORDERABLES F inal Result Performing Organization Address [facility] de Phone Number [facility] [address] [place] [address] * (ABNORMAL) Basic metabolic panel (07/16/2024 11:34 AM PROPAGATION WORKER) Glucose 115 65 - 139 mg/dL [facility] Comment: Non-fasting reference interval BUN 29(H) 7 - 25 mg/dL [facility] Creatinine 1.23(H) 0.70 - 1.22 mg/dL [facility] eGFR 58(L) > OR = 60 mL/min/1.7 3m2 [facility] BUN/creat ratio 24(H) 6 - 22 (calc) [facility] Sodium 138 135 - 146 mmol/L [facility] Potassium, pl 4.4 3.5 - 5.3 mmol/L [facility] Chloride 101 98 - 110 mmol/L [facility] CO2 27 20 - 32 mmol/L [facility] Calcium 8.7 8.6 - 10.3 mg/dL [facility] Blood 07/16/2024 11:3 4 AM PROPAGATION WORKER 07/16/2024 11:34 AM PROPAGATION WORKER Narrative [facility] - 07/16/2024 10:30 PM PROPAGATION WORKER INSURANCE VERIFIED FASTING:NO FASTING: NO Rehan Sheth MD LAB BLOOD ORDERABLES F inal Result Performing Organization Address [facility] Co de Phone Number [facility] [address] [address] * (ABNORMAL) Hemoglobin A1c (06/07/2024 8:38 AM CDT) Hgb A1C 6.1(H) 4.0 - 5.6 % Estimated Average Glucose 128 mg/dL [facility] Comment: The ADA recommends reporting an estimated Average Glucose (eAG) with all Hemoglobin A1c results using the equation derived from a study of 507 normal and diabetic adults. Minority populations were underrepresented and children were not included. (Diabetes Care 31:7570-1158, 2008). The eAG is not equivalent to a fasting glucose. Blood 06/07/2024 8:38 AM CDT 06/07/2024 9:07 AM CDT Joe Hood MD LAB BLOOD ORDER MAITE Final Result [facility] [address] [facility] Department [place] [address] * Lipid panel (06/07/2024 8:38 AM CDT) [...] ORDER MAITE Final Result [facility] [address] [facility] Department [place] [address] * DIABETES FOOT EXAM (11/05/2020) Diabetic Foot Exam Normal Historical Provider MD HEALTH MAINTENANCE Final Result * DIABETES EYE EXAM (05/05/2019) Diabetic Eye Exam Normal Historical Provider HEALTH MAINTENANCE Final Result from Last 3 Months or Most Recently Relevant to Health Maintenance Insurance [employer] CHOICE MEDICARE PPO MEDICARE SOLUTIONS [facility] MEDICARE Address: [address] [address] [place] [address] MEDICARE SOLUTIONS Advance Directives For more information, please contact: [phone] Documents on File Type Date Recorded Patient Natural Developer Expl anation ADVANCE DIRECTIVE 12/27/2023 10:41 PM Jorge Villa OWER OF [employer] PIPE SUPERVISOR-MEDICAL ADVANCE DIRECTIVE 12/26/2023 10:38 AM Yazmin Medina POWER OF [employer] PIPE SUPERVISOR-FINANCIAL * Full Code (Latest Code Status on [...] Communication Jorge Pryor Spouse Health Care Agent [email or web address] Medina Daughter First Alternate Health Care Agent [email or web address] Care Teams Senior Instructor Relationship Specialty Start Date End Date Barry Ralph MD PCP - General Family Practice 05/22/24 Rehan Sheth MD [address] [address] Consulting Physician Cardiology 09/09/24
--- OUTSIDE RECORDS SUMMARY | 2024-10-15 00:31 | XMS_ITS | Encounter Summary ---
Author Organization [facility] Address [address] [place] [address] Phone Care Team Providers Care Communications Project Manager Name Role Phone Barry Ralph MD Primary Care Provider [phone] Rehan Sheth MD Unavailable [phone] Sangita Moore RN Unavailable [phone] Encounter Details Date Type Department Care Team (Late st Contact Info) Description 10/06/2024 Results Follow-Up [facility] Cardiology [address] [facility] Advanced Medicine 8th [place] [address] [place] [address] Amanda Chatman RN Social History Tobacco Use Types Packs/Day Years Used Date Smoking Tobacco: Never Smokeless Tobacco: Never [facility] Utilities Answer Date Recorded In the past 12 months has [employer] electric, gas, oil, or water company threatened [...] How often do you attend chur or gnosticist services? More than 4 times per year 09/15/2024 Do you belong to any clubs o r organizations such as anabaptism groups, unions, fraternal or athletic groups, or [...] Date Recorded PHQ-2 Total Score 0 09/12/2024 [facility] - Occupational Stress Questionnaire Answer Date [...] in the past [address] [facility], were you homeless or living in a retirement (including now)? No 09/15/2024 Personal Safety Answer Date Recorded Have you ever been in or are you currently in a harmful physical or emotional relationship or is someone making you feel afraid or unsafe? 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 Author CCM Chronic Pain Care Plan Chronic Care Management Improving( 10:49 AM SAND CONDITIONER) No Nenita Santiago, RN Note: Problem: Chronic Pain Goals: 1. Minimize further functional decline 2. Maximize quality of life 3. Control pain Strategies: - Activity/exercise program recommendation - Conservative stepwise pain medicine strategy with multi-disciplinary approach - Recommend healthy lifestyle strategies and compensatory methods as needed documented as of this encounter Visit Diagnoses Not on filedocumented in this encounter Care Teams Communications Project Manager Relationship Specialty Start Date End Date Barry Ralph MD PCP - General Family Practice 05/22/24 Rehan Sheth MD [address] [facility] [address] [place] [address] Consulting Physician Cardiology 09/09/24 Sangita Moore, RN [address] [facility] [address] [place] [address] SHOP Outpatient Manager Registration 09/15/24 10/13/24 documented as of this encounter
--- OUTSIDE RECORDS SUMMARY | 2024-10-15 00:31 | XMS_ITS | Encounter Summary ---
Author Organization [facility] Address [address] [place] [address] Care Team Providers Care Cardiac Cath Tech Name Role Phone Barry Ralph MD Primary Care Provider [phone] Barry Ralph MD Primary Care Provider [phone] Rosalee Crowder ACCOUNTS SUPERVISOR Unavailable Rehan Sheth MD Unavailable Sangita Moore RN Unavailable Encounter Details Date Type Department Care Team (Late st Contact Info) Description 02/26/[address] [facility] [address] [facility] Advanced Medicine [address] [place] [address] Aleksander Shankar MD [address] [place] [address] Social History Tobacco Use Types Packs/Day Years Used Date Smoking Tobacco: Never Smokeless Tobacco: Never [facility] Utilities Answer Date Recorded In the [...] often do you attend chur ch or hindu services? More than 4 times per year 01/01/2024 Do you belong to any clubs o r organizations such as latter-day groups, unions, fraternal or athletic groups, or [...] staff should administer the PHQ-9) 0 05/13/2021 [facility] [place] of Occupat ional Health - Occupational Stress [...] a skilled nursing (including now)? No 01/01/2024 Personal Safety Answer Date Recorded Have you ever been in or are you currently in a harmful physical or emotional relationship or is someone making you feel afraid or unsafe? 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 Author CCM Chronic Pain Care Plan Chronic Care Management Improving( 10:49 AM ARCHIVIST MILITARY HISTORY) No Nenita Santiago, RN Note: Problem: Chronic [...] to 92 09/12/2024 09/12/2024 09/19/2024 3:07 AM ARCHIVIST MILITARY HISTORY documented as of this encounter Care Teams Cardiac Cath Tech Relationship Specialty Start Date End Date Barry Ralph MD PCP - General Family Practice 10/20/22 05/20/24 Barry Ralph MD PCP - General Family Practice 05/22/24 Rosalee Crowder, [facility] [address] [facility] Mailstop [phone] [place] [address] SHOP Outpatient Arts Therapist 05/22/24 06/19/24 Rehan Sheth MD [address] [facility] [address] [place] [address] Consulting Physician Cardiology 09/09/24 Sangita Moore, RN [address] [facility] [address] [place] [address] SHOP Outpatient Arts Therapist 09/15/24 10/13/24 documented as of this encounter
--- OUTSIDE RECORDS SUMMARY | 2024-10-15 00:31 | XMS_ITS | Clinical Summary ---
Author Organization [facility] Address [address] [place] [address] Care Team Providers Care Ordnance Technician Name Role Phone Robin Nelson MD Primary Care Provider [phone] Allergies No known active allergies Medications warfarin [...] Active METFORMIN 1000 MG tabletIndications :Diabetes mellitus ([facility]) TAKE 1 TABLET BY MOUTH TWICE A DAY 60 tablet 2 1 Active PIOGLITAZONE 15 MG tabletIndications :Type 2 diabetes mellitus with stage 3a chronic kidney disease, without long-term current use of insulin ([facility]) TAKE 1 TABLET BY MOUTH [...] Date COPD (chronic obstructive pu lmonary disease) ([facility]) 02/02/2020 Diabetes mellitus ([facility]) Hypertension Immunizations Name Administration Dates Next Due Flublok (Quadrivalent) 06/02/2020 Fluzone High Dose - >Age 65 (Prefilled Syringe) 07/02/2018 PFIZER COVID-19 (ORIGINAL FO RMULATION, PURPLE CAP) mRNA, LNP-S, PF, 30 MCG/0.3 ML DOSE 10/23/2020,09/25/2020 Tdap (Generic) 03/08/2019,03/19/2016 Zoster (Zostavax) 66512 Unt/0.65Ml 03/19/2016 Social History Tobacco Use Types [...] Comments Blood Pressure 155/71 09/19/2021 12:53 PM TURN OUT Pulse 68 09/19/2021 12:53 PM TURN OUT Temperature 35.8 C (96.5 F) 09/19/2021 11:03 AM TURN OUT Respiratory Rate 20 09/19/2021 11:03 AM TURN OUT Oxygen Saturation 95% 09/19/2021 12:53 PM TURN OUT Inhaled Oxygen Concentration - - Weight 113.4 kg (250 lb) 09/15/2021 2:17 PM TURN OUT Height 182.9 cm (6') 09/15/2021 2:17 PM TURN OUT Body Mass Index 33.91 09/15/2021 2:17 PM TURN OUT Plan of Treatment Health Maintenance Due Date [...] this topic Medical Devices Implanted Type Area Director Global Sales Device Identifier Shelf Expiration Date Model / Serial / Lot Intraocular Lens Implanted:Qty: 1 on 09/19/2021 by Daren Ralph MD at [facility] Left: Eye 04/14/2023 [id number] / [id number] / Procedures Procedure Name Priority Date/Time Associated Diagnosis Comments HEMOGLOBIN, GLYCOSYLATED Routine 07/05/2020 Type 2 diabetes mellitus with stage 3a chronic kidney disease, without long-term current use of insulin ([facility]) LIPID PANEL Routine 02/02/2020 11:47 AM CDT Dyslipidemia from Last 3 Months or Most Recently Relevant to Health Maintenance Results * HEMOGLOBIN, GLYCOSYLATED (07/05/2020) HGB A1C 8.2 % MG-CONNIEXLER JANETE ([address] S[address] [facility] [place] 07/05/2020 Collette Stockton MD LABORATORY Final Result FRANCISCO AARON ([address] SJB [facility] [place] [address] [place] [address], * (ABNORMAL) LIPID PANEL (02/02/2020 11:47 AM CDT) Pathologist [facility] CHOLESTEROL 123 <200 mg/dL [facility] HDL 37(L) > OR = 40 mg/dL [facility] [employer] [facility] TRIGLYCERIDES 237(H) <150 mg/dL [facility] [employer] [facility] Comment: If a non-fasting specimen was collected, consider repeat triglyceride testing on a fasting specimen if clinically indicated. Amrit et al. J. of Clin. Lipidol. 2015;9:129-169. LDL (CALCULATED) 56 mg/dL (calc) [facility] Comment: Reference range: <100 Desirable range <100 mg/dL for primary prevention; <70 mg/dL for patients with CHD or diabetic patients with > or = 2 CHD risk factors. LDL-C is now calculated using the Herber-Chapa calculation, which is a validated novel method providing better accuracy than the Friedewald equation in the estimation of LDL-C. Herber SS et al. SADE. 2013;310(19): 1893-9455 (http://education.popexpert.Infinio/faq/IHY087) CHOL/HDL RATIO 3.3 <5.0 (calc) [facility] NON HDL CHOLESTEROL 86 <130 mg/dL (calc) [facility] [employer] [facility] Comment: For patients with diabetes plus 1 major ASCVD risk factor, treating to a non-HDL-C goal of <100 mg/dL (LDL-C of <70 mg/dL) is considered a therapeutic option. 02/02/2020 11:4 7 AM CDT 02/03/2020 3:01 AM CDT Narrative Resulting Agency Comment Performing Organization Information: Site ID: [id number] Name: [facility] Address: [address] [address] Director: Siva Roman D.O., MPH us Collette Stockton MD LABORATORY Final Result [facility] [address] [address], [place] from Last 3 Months or Most Recently Relevant to Health Maintenance Insurance [facility] Care Teams Ordnance Technician Relationship Specialty Start Date End Date Robin Nelson MD [address] [place] [address] PCP - General INTERNAL MEDICINE 08/10/21
--- OUTSIDE RECORDS SUMMARY | 2024-10-15 00:31 | XMS_ITS | Encounter Summary ---
Author Organization [facility] Address [address] [place] [address] Phone Care Team Providers Care Precision Farming Specialist Name Role Phone Barry Ralph MD Primary Care Provider [phone] Rehan Sheth MD Unavailable [phone] Sangita Moore RN Unavailable Reason for Visit * Reason Onset Date Comments Symptoms 10/06/2024 Encounter Details Date Type Department Care Team (Late st Contact Info) Description 10/06/2024 [address] [facility] Cardiology [address] [facility] Medicine 8th [place] [address] [place] [address] Rehan Sheth MD [address] [facility] [address] [place] [address] Symptoms Social History Tobacco Use Types Packs/Day Years Used Date Smoking Tobacco: Never Smokeless Tobacco: Never [facility] Utilities Answer Date Recorded In [...] often do you attend chur ch or baptist services? 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 I advisedpt go to [facility] ER, and son notes this is [facility]. I contacted ER and provided report. Will inform Dr. Sheth. OTR TRUCK DRIVER * Telephone Encounter - Karen Chi - 10/06/2024 12:00 PM CST [facility] Encounter Pt calling, she's on her way ER with pt. She thinks he is having a stroke. Can't stay awake, slurring words. Pt had stinks put in Sunday and he hasn't felt well. Pls call . OTR TRUCK DRIVER documented in this encounter Plan of Treatment Not on file documented as of this encounter Goals Goal Patient Goal Type Associated Problems Recent Progress Patient-Stated? Author CCM Chronic Pain Care Plan Chronic Care Management Improving( 10:49 AM TEAM OTR TRUCK DRIVER) Nenita Sanchez, RN Note: Problem: Chronic Pain Goals: 1. Minimize further functional decline 2. Maximize quality of life 3. Control pain Strategies: - Activity/exercise program recommendation - Conservative stepwise pain medicine strategy with multi-disciplinary approach - Recommend healthy lifestyle strategies and compensatory methods as needed documented as of this encounter Visit Diagnoses Not on filedocumented in this encounter Care Teams Precision Farming Specialist Relationship Specialty Start Date End Date Barry Ralph MD PCP - General Family Practice 05/22/24 Rehan Sheth MD [address] [facility] [address] [place] [address] Consulting Physician Cardiology 09/09/24 Sangita Moore, RN [address] [facility] [address] [place] [address] SHOP Outpatient Tooth Clerk 09/15/24 10/13/24 documented as of this encounter
--- OUTSIDE RECORDS SUMMARY | 2024-10-15 00:31 | XMS_ITS | Encounter Summary ---
Author Organization [facility] Healthcare Address [address] [place] [address] Care Team Providers Care Wind Turbine Mechanical Engineer Name Role Phone Barry Ralph MD Primary Care Provider [phone] Rehan Sheth MD Unavailable [phone] Reason for Visit * Reason Comments Successfully Completed Encounter Details Date Type Department Care Team (Late st Contact Info) Description 10/14/2024 SHOP/CHAP Subsequent Outreach [facility] [address] [place] [address] Sangita Moore, RN [address] [facility] [address] [place] [address] Social History Tobacco Use Types Packs/Day Years Used Date Smoking Tobacco: Never Smokeless Tobacco: Never [facility] Utilities Answer Date Recorded In the past 12 months has [employer] electric, gas, oil, or water company threatened [...] How often do you attend chur or anabaptist services? More than 4 times per year 09/15/2024 Do you belong to any clubs o r organizations such as episcopalian groups, unions, fraternal or athletic groups, or [...] Total Score 0 09/12/[facility]24 [facility]ational [facility] Questionnaire Answer [...] place to sleep or slept in a intermediate (including now)? No 01/01/2024 Housing Stability Vital [...] time in the past 12 m [place], were you homeless or living in a intermediate (including now)? No 09/15/2024 Personal Safety Answer Date Recorded Have you ever been in or are you currently in a harmful physical or emotional relationship or is someone making you feel afraid or unsafe? Denies 10/06/2024 Sex and Gender Information Value Date Recorded Sex Assigned at Not on file Legal Sex Male 8:23 PM DIRECTOR OPERATING ROOM Gender Identity Not on file Sexual Orientation [...] scheduled but OCM remains available for questions. CTOR OPERATING ROOM documented in this encounter Plan of Treatment Not on file documented as of this encounter Goals Goal Patient Goal Type Associated Problems Recent Progress Patient-Stated? Author CCM Chronic Pain Care Plan Chronic Care Management Improving( 10:49 AM DIRECTOR OPERATING ROOM) Nenita Sanchez, RN Note: Problem: Chronic Pain Goals: 1. Minimize further functional decline 2. Maximize quality of life 3. Control pain Strategies: - Activity/exercise program recommendation - Conservative stepwise pain medicine strategy with multi-disciplinary approach - Recommend healthy lifestyle strategies and compensatory methods as needed documented as of this encounter Visit Diagnoses Not on filedocumented in this encounter Care Teams Wind Turbine Mechanical Engineer Relationship Specialty Start Date End Date Barry Ralph MD PCP - General Family Practice 05/22/24 Rehan Sheth MD [address] [address] Consulting Physician Cardiology 09/09/24 documented as of this encounter
--- NOTE | 2024-10-15 00:57 | ED.GENADULT ---
HPI - General Adult General Chief complaint: Altered Mental Status Stated complaint: falling, disorientated, LKW a couple months ago Time Seen by Provider: 10/15/24 00:10 History of Present Illness HPI narrative: 84-year-old male return to the emergency department for evaluation for worsening exertional shortness of breath, increased fatigue and increased confusion per family. Patient has had multiple falls recently. Upon arrival emergency department patient denies any chest pain but states he is having some exertional shortness breath that he feels is not new. Patient has had some increased falls and patient had a fall 2 days ago and was evaluated in the emergency department at that time. Patient does have an abrasion to his nose and to his left forehead. Patient states he has had no falls since that time. Related Data Home Medications ?Medication ?Instructions ?Recorded ?Confirmed ?Last Taken ?Type albuterol sulfate 90 mcg/actuation 1 inh inhalation Q4H PRN Shortness 12/27/23 09/18/24 05/17/24 History aerosol inhaler Of Breath Or Wheezing apixaban 5 mg tablet 5 mg PO BID 12/27/23 09/18/24 05/17/24 History glipizide 5 mg tablet, extended 5 mg PO DAILY 12/27/23 09/18/24 05/17/24 History release 24 hr lancets 30 gauge 12/27/23 09/21/24 Unknown History atorvastatin 80 mg tablet 80 mg PO DAILY 05/29/24 09/18/24 Unknown History clopidogrel 75 mg tablet 75 mg PO DAILY 09/21/24 Unknown History isosorbide mononitrate 30 mg 30 mg PO DAILY 09/21/24 Unknown History tablet,extended release 24 hr methocarbamol 500 mg tablet 500 mg PO BID MUSCLE SPASM 09/21/24 Unknown History paroxetine HCl 20 mg tablet 20 mg PO QAM 09/21/24 Unknown History simvastatin 20 mg tablet 20 mg PO QPM 09/21/24 Unknown History Allergies Allergy/AdvReac Type Severity Reaction Status Date / Time metformin AdvReac Intermediate Diarrhea Verified 10/14/24 16:30 Review of Systems Review of Systems: All systems reviewed & are unremarkable except as noted in HPI and below PMFSH Past Medical History Medical History TIA (transient ischemic attack) Right-sided extracranial carotid artery stenosis COPD (chronic obstructive pulmonary disease) Diabetes mellitus CHF (congestive heart failure) Atrial fibrillation Aortic valve disease Surgical History Surgical History H/O aortic valve replacement Family History Family History Father Hypertension Heart disease Mother Cancer Diabetes mellitus Hypertension Social History Social History Smoking status: Never smoker Alcohol intake: never Substance use: never Substance use type: does not use Do You Feel Safe in your Home?: Yes Lack of Transportation: No Lack of Food: Never True Current Housing: I Have Housing Concerned About Future Housing: No Difficulty Paying Gas/Electric Bills: YES Difficulty Paying for Meds: YES Currently Unemployed: No Education: High School Diploma/GED Difficulty w/ Childcare or Family Care: No Living arrangements: with family Occupation/Education: retired Gender identity (if verbalized by the patient): Male Spiritual care concerns: No Exam Narrative: APPEARANCE: Tired appearing HEAD: normocephalic, atraumatic. EYES: PERRLA/EOMI, conjunctivae clear. NOSE: Normal no drainage EARS:TMS clear with good light reflex. THROAT: Pharynx clear, no exudate. NECK: Supple. No adenopathy, no masses. RESPIRATORY: Airway patent, respirations nonlabored. Clear to auscultation bilaterally, no rales, rhonchi, wheezing. CARDIOVASCULAR: Regular rate and rhythm without murmurs rubs or gallops. ABDOMINAL: Soft, nontender, nondistended, normal bowel sounds MUSCULOSKELETAL: Moves all extremities. Lower extremity weakness, bilateral lower extremity NEURO: Alert. Cranial nerves II through XII intact. Grossly intact SKIN: Warm, dry. Normal Color Course Vital Signs Vital signs: Vital Signs Temperature 98.2 F 10/14/24 16:41 Pulse Rate 73 10/14/24 16:41 Respiratory Rate 18 10/14/24 16:41 Blood Pressure 125/55 L 10/14/24 16:41 Pulse Oximetry 99 10/14/24 16:41 Oxygen Delivery Room Air 10/14/24 16:41 Temperature 97.6 F 10/15/24 06:00 Pulse Rate 81 10/15/24 06:00 Respiratory Rate 18 10/15/24 06:00 Blood Pressure 163/62 H 10/15/24 06:00 Pulse Oximetry 97 10/15/24 06:00 Oxygen Delivery Room Air 10/14/24 16:41 Medical Decision Making MDM Narrative Medical decision making narrative: 84-year-old male presenting emergency department for evaluation for increased falls and deconditioning and complaint of shortness of breath. Patient does have claustrophobia and worsening anxiety and this has likely contributing to his sensation of shortness of breath. Patient has been evaluated has outpatient for shortness of breath and was told that he does not have an oxygen requirement. Patient is currently afebrile with no leukocytosis and hemoglobin of 10.9, INR 1.2, no significant abnormalities on the patient's CMP, patient does have a proBNP of 1330 which is not significantly different from his baseline. UA was negative for infection and patient is negative for influenza RSV and for COVID, patient did have an abrasion to the nose and left forehead so CT head was ordered and was negative for acute intracranial abnormality. CT chest was ordered and shows no acute abnormality. Had extensive discussion with the patient the and the patient's daughter and the and daughter do not feel that the patient is safe to go home due to the increased falls, he has fallen and injured his as well. The states the patient is reluctant to do outpatient physical therapy and they are requesting inpatient physical therapy. Patient was initially reluctant to go to inpatient rehab but was ultimately agreeable. Case was discussed with the hospitalist and patient was accepted for admission. Differential Diagnosis Differential Diagnosis: COVID, RSV, influenza, subdural hematoma, subarachnoid hemorrhage, UTI, delirium, physical deconditioning, anxiety Vital Signs Vital Signs: Vital Signs Temperature 98.2 F 10/14/24 16:41 Pulse Rate 73 10/14/24 16:41 Respiratory Rate 18 10/14/24 16:41 Blood Pressure 125/55 L 10/14/24 16:41 Pulse Oximetry 99 10/14/24 16:41 Oxygen Delivery Room Air 10/14/24 16:41 Temperature 97.6 F 10/15/24 06:00 Pulse Rate 81 10/15/24 06:00 Respiratory Rate 18 10/15/24 06:00 Blood Pressure 163/62 H 10/15/24 06:00 Pulse Oximetry 97 10/15/24 06:00 Oxygen Delivery Room Air 10/14/24 16:41 Lab Data Lab results reviewed: Yes I reviewed the patient's lab results. 10/15/24 01:28 10/15/24 01:28 Labs: Lab Results 10/15/24 Range/Units 01:28 WBC 7.1 (4.5-10.0) K/mm3 RBC 3.53 L (4.6-6.20) M/mm3 Hgb 10.9 L (14.0-18.0) g/dL Hct 32.8 L (42.0-52.0) % MCV 92.9 (80-100) fl MCH 30.9 (26-34) pg MCHC 33.2 (32-36) g/dl RDW 14.6 H (11.5-14.5) % Plt Count 190 (150-375) k/mm3 MPV 10.8 H (7.4-10.4) fl Immature Gran % (Auto) 0.3 (0-0.5) % Neut % (Auto) 63.3 (45.5-73.1) % Lymph % (Auto) 23.2 (18.3-44.2) % [place] % (Auto) 8.8 H (2.6-8.5) % Eos % (Auto) 3.8 (0-4.4) % Baso % (Auto) 0.6 (0.2-1.2) % Lymph # (Auto) 1.66 (0.9-3.2) K/mm3 Haakon # (Auto) 0.6 (0.1-0.6) K/mm3 Eos # (Auto) 0.3 (0-0.3) K/mm3 Baso # (Auto) 0.0 (0.0-0.1) K/mm3 Abs Immat Gran (auto) 0.02 (0.00-0.031) K/mm3 Absolute Neuts (auto) 4.5 (1.3-6.7) K/mm3 Absolute Nucleated RBC 0.000 (0.0-0.012) K/mm3 Nucleated RBC % 0.0 (0.0-0.2) % PT 15.9 H (11.1-14.7) Seconds INR 1.2 APTT 37.1 H (22.3-36.8) Seconds Sodium 138 (137-145) mmol/L Potassium 3.6 (3.4-5.0) mmol/L Chloride 104 (98-107) mmol/L Carbon Dioxide 25 (22-30) mmol/L Anion Gap 9 (4-12) mmol/L BUN 21 H D (9-20) mg/dL Creatinine 1.02 (0.7-1.3) mg/dL Estim Creat Clear Calc 51 ml/min Estimated GFR > 60 (59 - ) Glucose 126 H (65-110) mg/dL Calcium 8.9 (8.4-10.2) mg/dL Total Bilirubin 0.4 (0.2-1.3) mg/dL AST 26 (17-59) U/L ALT 16 (6-50) U/L Alkaline Phosphatase 52 (38-126) U/L NT-Pro-B Natriuret Pep 1330 H (19.9-100) pg/mL Total Protein 7.0 (6.3-8.2) g/dL Albumin 3.7 (3.5-5.1) g/dL Urine Color Yellow (Yellow) Urine Appearance Clear (Clear) Urine pH 5.0 (5.0-9.0) Ur Specific [place] 1.016 (1.001-1.035) Urine Protein Negative (Negative) mg/dL Urine Glucose (UA) Negative (Negative) mg/dL Urine Ketones Negative (Negative) mg/dL Ur Blood (Man) Negative (Negative) Urine Nitrate Negative (Negative) Urine Bilirubin Negative (Negative) Urine Urobilinogen 0.2 (<2.0) mg/dL Leukocyte Esterase Rfl Negative (Negative) JUAN/UL Influenza A (RT-PCR) Negative (Negative) Influenza B (RT-PCR) Negative (Negative) RSV (RT-PCR) Negative (Negative) SARS-CoV-2 RNA (RT-PCR) Negative (Negative) Imaging Data Radiologist's impression: Overnight read CT head impression: Brain: No hemorrhage, hydrocephalus, mass effect or herniation. 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 Bones: Unremarkable. CT chest without contrast impression: No focal consolidation, no pleural effusion, no pneumothorax. Severe coronary artery calcifications. Discharge Plan Discharge Clinical Impression: Shortness of breath, Anxiety, Physical deconditioning Patient Disposition: Still a Patient Condition: Stable
[2024-10-15 01:51] LABS: Add Urine Microscopic? NO; Appearance Urine Clear (Clear); Bilirubin Urine Negative (Negative); Blood Urine Negative (Negative); Color Urine Yellow (Yellow); Glucose Urine UA Negative (Negative); Ketones Urine Negative (Negative); Leukocyte Esterase Ur Negative LEU/UL (Negative); Nitrate Urine Negative (Negative); Protein Urine Negative (Negative); Specific Grav Ur 1.016 (1.001-1.035); Urobilinogen Urine 0.2 mg/dL (<2.0)
[2024-10-15 01:53] LABS: Basophils Percent Auto 0.6 % (0.2-1.2); Eosinophils Absolute Auto 0.3 K/mm3 (0-0.3); Eosinophils Percent Auto 3.8 % (0-4.4); Hematocrit 32.8 % (42.0-52.0); Hemoglobin 10.9 g/dL (14.0-18.0); Immature Granulocyte Absolute 0.02 K/mm3 (0.00-0.031); Immature Granulocyte Percent A 0.3 % (0-0.5); Lymphocytes Absolute Auto 1.66 K/mm3 (0.9-3.2); Lymphocytes Percent Auto 23.2 % (18.3-44.2); Mean Corpuscular HGB Conc 33.2 g/dl (32-36); Mean Corpuscular Hemoglobin 30.9 pg (26-34); Mean Corpuscular Volume 92.9 fl (80-100); Mean Platelet Volume 10.8 fl (7.4-10.4); Monocytes Absolute Auto 0.6 K/mm3 (0.1-0.6); Monocytes Percent Auto 8.8 % (2.6-8.5); Neutrophils Absolute Auto 4.5 K/mm3 (1.3-6.7); Neutrophils Percent Auto 63.3 % (45.5-73.1); Platelet Count Result 190 k/mm3 (150-375); Red Blood Count 3.53 M/mm3 (4.6-6.20); Red Cell Distribution Width 14.6 % (11.5-14.5); White Blood Count 7.1 K/mm3 (4.5-10.0)
[2024-10-15 02:02] LABS: INR 1.2; Prothrombin Time 15.9 Seconds (11.1-14.7)
[2024-10-15 02:03] LABS: Partial Thromboplastin Time 37.1 Seconds (22.3-36.8)
[2024-10-15 02:26] VITALS: BP 178/65; PULSE 71; RESP 16; O2SAT 96
[2024-10-15 02:36] LABS: Influenza A QL RT-PCR Negative (Negative); Influenza B QL RT-PCR Negative (Negative); RSV RNA, RT-PCR Negative (Negative); SARS-CoV-2 RNA PCR Negative (Negative)
[2024-10-15 02:47] LABS: Alanine Aminotransferase 16 U/L (6-50); Albumin Level 3.7 g/dL (3.5-5.1); Alkaline Phosphatase 52 U/L (38-126); Anion Gap 9 mmol/L (4-12); Aspartate Amino Transferase 26 U/L (17-59); Bilirubin,Total 0.4 mg/dL (0.2-1.3); Blood Urea Nitrogen 21 mg/dL (9-20); Calcium 8.9 mg/dL (8.4-10.2); Carbon Dioxide 25 mmol/L (22-30); Chloride 104 mmol/L (98-107); Estimated CRCL calculation 51 ml/min; Estimated Glomerular Filt Rate > 60; Glucose 126 mg/dL (65-110); Potassium 3.6 mmol/L (3.4-5.0); Sodium 138 mmol/L (137-145)
[2024-10-15 02:56] LABS: NT Pro B Type Natriuretic Pept 1330 pg/mL (19.9-100)
[2024-10-15 06:00] VITALS: BP 163/62; PULSE 81; RESP 18; TEMP 36.4; O2SAT 97
--- NOTE | 2024-10-15 06:48 | ADMGEN ---
This patient, Ashkan Pryor, was admitted to [facility] Surg Room 305-02. Patient/family oriented to hospital policies and general routines including ID bracelet, bed and alarms, visiting hours, pain management, procedures, bathroom and other care routines, personal items, smoking policy, room service/diet, and visiting hours. Information on how to activate the Rapid Response Team has been discussed. Patient/Family are encouraged to report perceived risks to care and to ask questions if they do not understand what they are told or what they should do.
--- NOTE | 2024-10-15 10:03 | P.HP_ITS ---
H&P: HPI History of Present Illness Date/Time: 10/15/24 10:03 Chief Complaint: Altered mental surgery Narrative: 84yo male with CAD, COPD, DM, AFib and CHF here for shortness of breath and confusion. Patient is alsrt and mostly oriented and provides a reasonably good hx with some family's help. He has CAD with 2 stents placed in 2023. Patient states he has had poor balance for a year. He developed slurred speech and had a fall resulting in facial abrasion about 2 weeks ago. He presented to [facility] where there was concerns for coronary disease and he underwent left heart catheterization and stent placement x1. He believes he had an MRI of the brain which was okay. 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 He is having difficulty remembering taking his medications over the past few days. He lives at home with his but his does not assist him with his medications. Patient has anxiety and has been on Paxil for many years. Was started on BuSpar last week but only took it for 1 day as he was anxious about the side effects. He did not experience any side effects from BusPar. He continued to feel weak. He denies lightheadedness with standing. He denies chest pain or racing heart. He has complained of muscle aches in the shoulders but this is chronic. He also has chronic low back pain for the past 2 years this seems to be worsening. The pain radiates into his buttocks bilaterally. Better with leaning forward. Symptoms seem to be worse with lying down and it does wake him up from sleep. He has had a workup for this and does not believe he has spinal stenosis but feels it is just arthritic in nature. He takes Aleve and Tylenol but does not take the methocarbamol. He has diabetes and checks his glucose at home but denies having low sugars. He does not check his blood pressure at home. He has shortness of breath which is chronic from his COPD. He denies any fever, chills, headache, diplopia, odynophagia, dysphagia, cough, nausea, vomiting, diarrhea, constipation, abdominal pain, dysuria, hematuria. No numbness or tingling in his hands or feet. 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 He is unclear why he presented to the emergency room at this time. In the ED, vital signs stable. No hypoxia, tachycardia or fever. WBC and plt count was normal. Hgb low at 10.9. INR 1.2. CMP was essentially normal. BNP 1330. UA clear. COVID, influenza and RSV PCR negative. Head CT showing stable hypodense area in the left brachium pontis but could be subacute infarct. Also with atrophy and chronic white matter changes. CXR showing central congestive change and probable mild pulmonary donna,a. Stable cardiomegaly and s/p aortic valve replacement. CT chest without contrast showing there is mild chronic interstitial pulmonary disease, peripheral interstitial thickening and subpleural reticulation, probably worst at the lingula. No suspicious pulmonary nodule seen. No treatment given in ED. Patient was admitted for further care. Review of Systems Review of Systems: All systems reviewed & are unremarkable except as noted in HPI and below PMFSH Past Medical History Medical History CAD (coronary artery disease) Stent placed 2023 TIA (transient ischemic attack) Right-sided extracranial carotid artery stenosis COPD (chronic obstructive pulmonary disease) Diabetes mellitus CHF (congestive heart failure) Atrial fibrillation Aortic valve disease Surgical History Surgical History H/O aortic valve replacement Family History Family History Father Hypertension Heart disease Mother Cancer Diabetes mellitus Hypertension Social History Social History (Updated 10/15/24 @ 18:55 by Jon Currie MD) Social History: Lifelong nonsmoker. No alcohol use. No drug use. Full code. He nominates his to be his surrogate decision maker. Smoking status: Never smoker Alcohol intake: never Substance use: never Substance use type: does not use Do You Feel Safe in your Home?: Yes Lack of Transportation: No Lack of Food: Never True Current Housing: I Have Housing Concerned About Future Housing: No Difficulty Paying Gas/Electric Bills: YES Difficulty Paying for Meds: YES Currently Unemployed: No Education: High School Diploma/GED Difficulty w/ Childcare or Family Care: No Living arrangements: with family Occupation/Education: retired Gender identity (if verbalized by the patient): Male Spiritual care concerns: No Meds Home Medications and Allergies Home Medications ?Medication ?Instructions ?Recorded ?Confirmed ?Type carvedilol 25 mg tablet 25 mg PO BID #180 tabs 02/14/23 10/15/24 Rx doxazosin 4 mg tablet 4 mg PO DAILY #90 tabs 02/14/23 10/15/24 Rx losartan 100 mg tablet 100 mg PO DAILY #90 tabs 02/14/23 10/15/24 Rx albuterol sulfate 90 mcg/actuation 1 inh inhalation Q4H PRN Shortness 12/27/23 10/15/24 History aerosol inhaler Of Breath Or Wheezing apixaban 5 mg tablet 5 mg PO BID 12/27/23 10/15/24 History glipizide 5 mg tablet, extended 5 mg PO DAILY 12/27/23 10/15/24 History release 24 hr lancets 30 gauge 12/27/23 10/15/24 History amlodipine 10 mg tablet 10 mg PO DAILY #90 tabs 01/07/24 10/15/24 Rx blood sugar diagnostic (Accu-Chek #100 ea 02/22/24 10/15/24 Rx Guide test strips) blood-glucose meter (Accu-Chek #1 ea 02/22/24 10/15/24 Rx Guide Glucose Meter) atorvastatin 80 mg tablet 80 mg PO DAILY 05/29/24 10/15/24 History potassium chloride 20 mEq 20 meq PO DAILY #30 tabs 09/18/24 10/15/24 Rx tablet,extended release (K-Tab) clopidogrel 75 mg tablet 75 mg PO DAILY 09/21/24 10/15/24 History isosorbide mononitrate 30 mg 30 mg PO DAILY 09/21/24 10/15/24 History tablet,extended release 24 hr methocarbamol 500 mg tablet 500 mg PO BID MUSCLE SPASM 09/21/24 10/15/24 History paroxetine HCl 20 mg tablet 20 mg PO QAM 09/21/24 10/15/24 History simvastatin 20 mg tablet 20 mg PO QPM 09/21/24 10/15/24 History furosemide 40 mg tablet 40 mg PO BID #90 tabs 10/13/24 10/15/24 Rx spironolactone 25 mg tablet 25 mg PO DAILY 10/15/24 10/15/24 History Allergies Allergy/AdvReac Type Severity Reaction Status Date / Time metformin AdvReac Intermediate Diarrhea Verified 10/14/24 16:30 Vital Signs Vital Signs - 24 hr 10/14/24 16:41 10/14/24 18:40 10/15/24 02:26 Temperature 98.2 F 97.7 F Pulse Rate 73 72 71 Respiratory Rate 18 20 16 Blood Pressure 125/55 L 146/74 H 178/65 H Pulse Oximetry 99 99 96 Oxygen Delivery Room Air 10/15/24 06:00 Temperature 97.6 F Pulse Rate 81 Respiratory Rate 18 Blood Pressure 163/62 H Pulse Oximetry 97 Oxygen Delivery Exam Narrative: AF 97.6 163/62 81 18 97% ra Gen - well appearing male in no acute respiratory distress who is nontoxic- appearing sititng up in chair HEENT - normocephalic. Atraumatic. Pupils 2-3mm and poorly reactive. Extraocular motions intact. Sclera clear and anicteric. Nares patent. Oropharynx was not visualized. No oral lesions. Moist mucous membranes. Tongue was midline. Palate justin symmetrically. Mild facial asymmetry. Neck - neck was supple. No dominant adenopathy, thyromegaly or masses. 2+ carotid upstrokes with right bruit Chest - lungs are clear to auscultation bilaterally. No wheezes or crackles. CV - heart was regular rate and rhythm. S1-S2. No murmurs gallops or rubs. Abd - abdomen was soft. Nontender. Nondistended. Positive bowel sounds. No organomegaly or masses. Ext - no clubbing, cyanosis but with 1+ edema. Neuro - patient is alert and oriented x4. Strength is 5/5 in both upper and lower extremities. Cranial nerves 2-12 are intact except for minor residual findings of [place] palsy. Speech is clear. Bilateral dysmetria with bilateral heel to prieto and left finger to nose. Psych - normal mood and affect. Patient is pleasant and cooperative. Skin - warm and dry. No rashes noted. Dried abrasions noted bridge of nose and left forehead H&P: Results Labs Labs: Short CBC 10/15/24 Range/Units 01:28 WBC 7.1 (4.5-10.0) K/mm3 Hgb 10.9 L (14.0-18.0) g/dL Hct 32.8 L (42.0-52.0) % Plt Count 190 (150-375) k/mm3 [facility] 10/15/24 01:28 Sodium 138 Potassium 3.6 Chloride 104 Carbon Dioxide 25 BUN 21 H D Creatinine 1.02 Glucose 126 H Calcium 8.9 Liver Function 10/15/24 Range/Units 01:28 Total Bilirubin 0.4 (0.2-1.3) mg/dL AST 26 (17-59) U/L ALT 16 (6-50) U/L Alkaline Phosphatase 52 (38-126) U/L Albumin 3.7 (3.5-5.1) g/dL Urine 10/15/24 Range/Units 01:28 Urine Color Yellow (Yellow) Urine Appearance Clear (Clear) Urine pH 5.0 (5.0-9.0) Ur Specific [place] 1.016 (1.001-1.035) Urine Protein Negative (Negative) mg/dL Urine Glucose (UA) Negative (Negative) mg/dL Assessment and Plan Assessment and plan (1) Weakness: Code(s): R53.1 - Weakness Status: Acute (2) PAF (paroxysmal atrial fibrillation): Code(s): I48.0 - Paroxysmal atrial fibrillation Status: Acute (3) CAD (coronary artery disease): Code(s): I25.10 - Atherosclerotic heart disease of [place] coronary artery without angina pectoris Status: Acute (4) CHF (congestive heart failure): Qualifiers: Heart failure chronicity: acute on chronic Heart failure type: diastolic Qualified Code(s): I50.33 - Acute on chronic diastolic (congestive) heart failure Code(s): I50.9 - Heart failure, unspecified Status: Acute (5) HTN (hypertension): Code(s): I10 - Essential (primary) hypertension Status: Acute (6) Right-sided extracranial carotid artery stenosis: Code(s): I65.21 - Occlusion and stenosis of right carotid artery Status: Acute (7) COPD (chronic obstructive pulmonary disease): Code(s): J44.9 - Chronic obstructive pulmonary disease, unspecified Status: Acute (8) Diabetes mellitus: Code(s): E11.9 - Type 2 diabetes mellitus without complications Status: Acute Plan Patient presents with weakness which appears to be more difficulty with coordination. Head CT shows chronic stable hypodense area the left brachium pontis when compared to a CT a week ago. This could be subacute infarct. Patient did have an MRI 2 weeks ago and we have requested records from [facility]. Brain MRI on May showed a couple of small lacunar infarcts in the right lentiform nucleus and right cerebellum. CTA of the head and neck in May showed near occlusion of the right proximal internal carotid artery. He also had a 66% stenosis of the proximal left internal carotid artery. Patient was transferred to [facility] during that hospitalization. The discharge note states that the weakness in his legs resolved prior to admission to [place]. Suspected the patient's lower extremity weakness symptoms were related to spinal pathology. No surgery was performed for his carotid stenosis. Aspirin and statin were recommended. Patient's evaluation here shows no acute findings. BNP is elevated but no clinical evidence of CHF exacerbation. Findings on chest x-ray more consistent with chronic interstitial changes and not pulmonary edema. Will resume home medications. Request records from [facility]. Will check B12, folate and TSH. 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 Will add compression hose. Consider performing MRI of the brain to exclude cerebellar infarct if this was not done at [facility]. Start PT and OT. Plan for placement for subacute rehab. Add BuSpar for his anxiety. He does have some mild confusion probably more related to vascular dementia and from acute process. No evidence of acute infection. A1c is 5.9. Will hold his glipizide and monitor glucose with sliding scale. Further recommendation as course dictates Code status -full code DVT prophylaxis -resume [facility] Advance Care Plan I have confirmed that the patient's Advanced Care Plan is present, code status is documented, or surrogate decision maker is listed in patient medical record.: Yes Medication Reconciliation I have utilized all available resources to obtain, update and review the patients current medications (includes all prescriptions, OTC, herbals, cannabis, and nutritional supplements).: Yes
[2024-10-15] MEDS: ISOSORBIDE MONONITRATE 30 MG TAB.ER.24H PO (13:48)
[2024-10-15] MEDS: CLOPIDOGREL BISULFATE 75 MG TABLET PO (13:48)
[2024-10-15] MEDS: APIXABAN 5 MG TABLET PO ×2 (13:48→20:50)
[2024-10-15] MEDS: amLODIPine BESYLATE 10 MG TABLET PO (13:50)
[2024-10-15] MEDS: LOSARTAN POTASSIUM 100 MG TABLET PO (13:50)
[2024-10-15 14:00] VITALS: BP 145/60; PULSE 83; RESP 16; TEMP 36.5; O2SAT 98
[2024-10-15] MEDS: FUROSEMIDE 40 MG TABLET PO (16:50)
[2024-10-15] MEDS: SIMVASTATIN 20 MG TABLET PO (16:50)
[2024-10-15 17:18] LABS: Glucose Point of Care 110 mg/dl (65-105)
[2024-10-15] MEDS: MELATONIN 5 MG TABLET PO (20:50)
[2024-10-15] MEDS: busPIRone HCL 2.5 MG TABLET PO (20:50)
[2024-10-15 20:51] VITALS: PULSE 81
[2024-10-15] MEDS: carvediloL 25 MG TABLET PO (20:51)
[2024-10-15 21:16] VITALS: BP 124/54; PULSE 81; RESP 16; TEMP 36.9; O2SAT 97
[2024-10-16 05:43] VITALS: BP 143/58; PULSE 66; RESP 18; TEMP 36.7; O2SAT 98
[2024-10-16 06:51] LABS: Hematocrit 34.5 % (42.0-52.0); Hemoglobin 11.2 g/dL (14.0-18.0); Mean Corpuscular HGB Conc 32.5 g/dl (32-36); Mean Corpuscular Hemoglobin 30.4 pg (26-34); Mean Corpuscular Volume 93.8 fl (80-100); Mean Platelet Volume 10.8 fl (7.4-10.4); Platelet Count Result 206 k/mm3 (150-375); Red Blood Count 3.68 M/mm3 (4.6-6.20); Red Cell Distribution Width 14.5 % (11.5-14.5); White Blood Count 7.9 K/mm3 (4.5-10.0)
[2024-10-16 07:03] LABS: Anion Gap 8 mmol/L (4-12); Blood Urea Nitrogen 17 mg/dL (9-20); Calcium 9.3 mg/dL (8.4-10.2); Carbon Dioxide 28 mmol/L (22-30); Chloride 104 mmol/L (98-107); Estimated CRCL calculation 53 ml/min; Estimated Glomerular Filt Rate > 60; Glucose 102 mg/dL (65-110); Magnesium 2.1 mg/dL (1.6-2.3); Phosphorus 3.6 mg/dL (2.5-4.5); Potassium 4.2 mmol/L (3.4-5.0); Sodium 140 mmol/L (137-145)
[2024-10-16 07:49] LABS: Glucose Point of Care 117 mg/dl (65-105)
[2024-10-16 08:06] LABS: Folic Acid 6.4 ng/mL (2.76->20)
[2024-10-16 08:16] VITALS: O2SAT 95
[2024-10-16] MEDS: busPIRone HCL 2.5 MG TABLET PO (09:03)
[2024-10-16 09:07] VITALS: PULSE 68
[2024-10-16] MEDS: amLODIPine BESYLATE 10 MG TABLET PO (09:07)
[2024-10-16] MEDS: FUROSEMIDE 40 MG TABLET PO ×2 (09:07→17:30)
[2024-10-16] MEDS: PARoxetine 20 MG TABLET PO (09:07)
[2024-10-16] MEDS: SPIRONOLACTONE 25 MG TABLET PO (09:07)
[2024-10-16] MEDS: DOXAZOSIN MESYLATE 4 MG TABLET PO (09:07)
[2024-10-16] MEDS: CLOPIDOGREL BISULFATE 75 MG TABLET PO (09:07)
[2024-10-16] MEDS: carvediloL 25 MG TABLET PO ×2 (09:07→21:27)
[2024-10-16] MEDS: POTASSIUM CHLORIDE 20 MEQ ER TABLET PO (09:07)
[2024-10-16] MEDS: APIXABAN 5 MG TABLET PO ×2 (09:08→21:28)
[2024-10-16] MEDS: ATORVASTATIN 40 MG TABLET 80 MG PO (09:08)
[2024-10-16] MEDS: ISOSORBIDE MONONITRATE 30 MG TAB.ER.24H PO (09:08)
[2024-10-16] MEDS: LOSARTAN POTASSIUM 100 MG TABLET PO (09:09)
[2024-10-16 11:33] LABS: Glucose Point of Care 212 mg/dl (65-105)
[2024-10-16 14:00] VITALS: BP 115/48; PULSE 69; RESP 18; TEMP 36.8; O2SAT 97
[2024-10-16 16:58] LABS: Glucose Point of Care 97 mg/dl (65-105)
--- NOTE | 2024-10-16 17:10 | PM.IMPN ---
Progress Note: A&P Assessment and Plan (1) Weakness: Code(s): R53.1 - Weakness Status: Acute (2) PAF (paroxysmal atrial fibrillation): Code(s): I48.0 - Paroxysmal atrial fibrillation Status: Acute (3) CAD (coronary artery disease): Code(s): I25.10 - Atherosclerotic heart disease of [place] coronary artery without angina pectoris Status: Acute (4) CHF (congestive heart failure): Qualifiers: Heart failure chronicity: acute on chronic Heart failure type: diastolic Qualified Code(s): I50.33 - Acute on chronic diastolic (congestive) heart failure Code(s): I50.9 - Heart failure, unspecified Status: Acute (5) HTN (hypertension): Code(s): I10 - Essential (primary) hypertension Status: Acute (6) Right-sided extracranial carotid artery stenosis: Code(s): I65.21 - Occlusion and stenosis of right carotid artery Status: Acute (7) COPD (chronic obstructive pulmonary disease): Code(s): J44.9 - Chronic obstructive pulmonary disease, unspecified Status: Acute (8) Diabetes mellitus: Code(s): E11.9 - Type 2 diabetes mellitus without complications Status: Acute Plan Patient presents with weakness which appears to be more difficulty with coordination. Head CT shows chronic stable hypodense area the left brachium pontis when compared to a CT a week ago. This could be subacute infarct. Patient did have an MRI 2 weeks ago and we have requested records from [place]. Brain MRI on May showed a couple of small lacunar infarcts in the right lentiform nucleus and right cerebellum. CTA of the head and neck in May showed near occlusion of the right proximal internal carotid artery. He also had a 66% stenosis of the proximal left internal carotid artery. Patient was transferred to [facility] during that hospitalization. The discharge note states that the weakness in his legs resolved prior to admission to [place]. Suspected the patient's lower extremity weakness symptoms were related to spinal pathology. No surgery was performed for his carotid stenosis. Aspirin and statin were recommended. Patient's evaluation here shows no acute findings. BNP is elevated but no clinical evidence of CHF exacerbation. Findings on chest x-ray more consistent with chronic interstitial changes and not pulmonary edema. Will resume home medications. Request records from [place]. Will check B12, folate and TSH. 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 Will add compression hose. Consider performing MRI of the brain to exclude cerebellar infarct if this was not done at [place]. Start PT and OT. Plan for placement for subacute rehab. Add BuSpar for his anxiety. He does have some mild confusion probably more related to vascular dementia and from acute process. No evidence of acute infection. A1c is 5.9. Will hold his glipizide and monitor glucose with sliding scale. Further recommendation as course dictates 10/16/24 -- No change in condition. Old records from [place] reviewed but no brain MRI noted. CT brain at [place] showed no acute findings and similar in findings to MRI in May. Labs including B12 and Folate are essentially normal. He is still very anxious per RN. Will advance Buspar. Patient walked 120 feet with wheeled walker. He has known severe Rt carotid stenosis but not felt safe to proceed with surgery. Plan is still for SNF placement for his unsteady gait. Will proceed with MRI brain. Consider CTA head/neck but no plans for surgery so continue medical management. Code status -full code DVT prophylaxis -resume [place] Subjective Date/time seen: 10/16/24 17:10 Interval history: 84yo male with CAD, COPD, DM, AFib and CHF here for shortness of breath and confusion. Patient slept poorly. Very anxious. He did take the BusPar. No chest pain or shortness of breath Exam Narrative: AF 98.2 115/48 69 18 97% ra Gen - NARD Chest - lungs are clear to auscultation bilaterally. CV - heart was regular rate and rhythm. S1-S2. Abd - Soft. Nontender. Nondistended. Positive bowel sounds. Ext - trace edema. Psych - normal mood and affect. Patient is pleasant and cooperative. Skin - warm and dry. Objective Data Vital Signs Vital Signs: Vital Signs - 24 hr 10/15/24 20:51 10/15/24 21:16 10/16/24 05:43 Temperature 98.5 F 98.1 F Pulse Rate 81 81 66 Respiratory Rate 16 18 Blood Pressure 124/54 L 143/58 H Pulse Oximetry 97 98 Oxygen Delivery 10/16/24 08:16 10/16/24 09:07 10/16/24 14:00 Temperature 98.2 F Pulse Rate 68 69 Respiratory Rate 18 Blood Pressure 115/48 L Pulse Oximetry 95 97 Oxygen Delivery Room Air Intake/Output Intake/Output: Intake & Output 10/13/24 10/14/24 10/15/24 10/16/24 23:59 23:59 23:59 23:59 Intake Total 956 1010 Output Total 1450 300 Balance -494 710 Meds/Results Medications: Active Medications Generic Name Dose Route Start Last Admin Trade Name Freq PRN Reason Stop Dose Admin Albuterol 1 puff 10/15/24 12:13 Albuterol Sulfate (*Sp) Aerosol 1 Puff INHALATION Q4H PRN Shortness Of Breath Or Wheezing Amlodipine Besylate 10 mg 10/15/24 12:15 10/16/24 09:07 Amlodipine Besylate 10 Mg Tablet PO 10 mg DAILY [facility] Administration Apixaban 5 mg 10/15/24 12:15 10/16/24 09:08 Apixaban 5 Mg Tablet PO 5 mg Q12HR [facility] Administration Atorvastatin Calcium 80 mg 10/16/24 09:00 10/16/24 09:08 Atorvastatin 40 Mg Tablet PO 80 mg DAILY [facility] Administration Buspirone HCl 2.5 mg 10/15/24 21:00 10/16/24 09:03 Buspirone Hcl 2.5 Mg Tablet PO 2.5 mg Q12HR [facility] Administration Carvedilol 25 mg 10/15/24 21:00 10/16/24 09:07 Carvedilol 25 Mg Tablet PO 25 mg Q12HR [facility] Administration Clopidogrel Bisulfate 75 mg 10/15/24 12:15 10/16/24 09:07 Clopidogrel Bisulfate 75 Mg Tablet PO 75 mg DAILY [facility] Administration Dextrose 12.5 gm 10/15/24 12:16 Dextrose 50% 25 Gm/50 Ml Syringe IV PUSH PRN PRN Hypoglycemia Protocol Doxazosin Mesylate 4 mg 10/16/24 09:00 10/16/24 09:07 Doxazosin Mesylate 4 Mg Tablet PO 4 mg DAILY [facility] Administration Furosemide 40 mg 10/15/24 17:00 10/16/24 09:07 Furosemide 40 Mg Tablet PO 40 mg BID [facility] Administration Glucagon 1 mg 10/15/24 12:16 Glucagon For Inj 1 Mg Vial IM PRN PRN Hypoglycemia Protocol Glucose 15 gm 10/15/24 12:16 Glucose Oral Gel 15 Gm Of Glucse In 37.5 Gm Tube PO PRN PRN Hypoglycemia Protocol Dextrose 1,000 mls @ 100 mls/hr 10/15/24 12:16 Dextrose 5% 1,000 Ml IVPB PRN PRN Hypoglycemia Protocol Insulin Aspart 3 - 6 units 10/15/24 17:00 10/16/24 13:38 Insulin Aspart (*Bkc) 100 Units/Ml SUB-Q Not Given TIDWM TH[facility] Protocol Isosorbide Mononitrate 30 mg 10/15/24 12:15 10/16/24 09:08 Isosorbide Mononitrate 30 Mg Tab.Er.24h PO 30 mg DAILY [facility] Administration Losartan Potassium 100 mg 10/15/24 12:15 10/16/24 09:09 Losartan Potassium 100 Mg Tablet PO 100 mg DAILY [facility] Administration Melatonin 5 mg 10/15/24 21:00 10/15/24 20:50 Melatonin 5 Mg Tablet PO 5 mg HS [facility] Administration Paroxetine HCl 20 mg 10/16/24 09:00 10/16/24 09:07 Paroxetine 20 Mg Tablet PO 20 mg QAM [facility] Administration Potassium Chloride 20 meq 10/16/24 09:00 10/16/24 09:07 Potassium Chloride 20 Meq Er Tablet PO 20 meq DAILY [facility] Administration Simvastatin 20 mg 10/15/24 18:00 10/15/24 16:50 Simvastatin 20 Mg Tablet PO 20 mg QPM [facility] Administration Spironolactone 25 mg 10/16/24 09:00 10/16/24 09:07 Spironolactone 25 Mg Tablet PO 25 mg DAILY [facility] Administration Radiology Results: ITS Impressions Head CT 10/15/24 06:01 Impression: Stable hypodense area in the left brachium pontis. This could reflect chronic versus subacute infarct. Atrophy and chronic white matter changes, as above. Chest X-Ray 10/15/24 06:03 Impression: Central congestive change and probable mild pulmonary edema. Stable cardiomegaly, status post aortic valve replacement. Chest CT 10/15/24 06:12 Impression: Chronic interstitial pulmonary disease, as detailed above. Labs Labs: Laboratory Results - last 24 hr 10/15/24 10/16/24 10/16/24 16:52 06:13 07:42 WBC 7.9 RBC 3.68 L Hgb 11.2 L Hct 34.5 L MCV 93.8 MCH 30.4 MCHC 32.5 RDW 14.5 Plt Count 206 MPV 10.8 H Sodium 140 Potassium 4.2 Chloride 104 Carbon Dioxide 28 Anion Gap 8 BUN 17 Creatinine 0.98 Estim Creat Clear Calc 53 Estimated GFR > 60 Glucose 102 POC Capillary Glucose 110 H 117 H Calcium 9.3 Phosphorus 3.6 Magnesium 2.1 Albumin 4.0 Vitamin B12 363.0 Folate 6.4 TSH (Reflex) 5.840 H Free T4 1.00 10/16/24 10/16/24 11:31 16:55 WBC RBC Hgb Hct MCV MCH MCHC RDW Plt Count MPV Sodium Potassium Chloride Carbon Dioxide Anion Gap BUN Creatinine Estim Creat Clear Calc Estimated GFR Glucose POC Capillary Glucose 212 H 97 Calcium Phosphorus Magnesium Albumin Vitamin B12 Folate TSH (Reflex) Free T4
[2024-10-16] MEDS: SIMVASTATIN 20 MG TABLET PO (17:30)
[2024-10-16 18:20] LABS: Total Triiodothyronine (T3) 1.37 NG/ML (0.97-1.69)
[2024-10-16 21:25] VITALS: BP 160/63; PULSE 67; RESP 16; TEMP 36.5; O2SAT 97
[2024-10-16 21:27] VITALS: PULSE 67
[2024-10-16] MEDS: busPIRone HCL 5 MG TABLET PO (21:28)
[2024-10-16] MEDS: MELATONIN 5 MG TABLET PO (21:28)
[2024-10-16 21:42] LABS: Glucose Point of Care 121 mg/dl (65-105)
[2024-10-17 04:25] VITALS: BP 154/68; PULSE 76; RESP 16; TEMP 36.7; O2SAT 98
[2024-10-17 07:45] LABS: Glucose Point of Care 115 mg/dl (65-105)
[2024-10-17] MEDS: LORazepam INJ (*CRX) 2 MG/ML VIAL 0.5 MG IV PUSH (08:06)
[2024-10-17] MEDS: PARoxetine 20 MG TABLET PO (09:15)
[2024-10-17] MEDS: POTASSIUM CHLORIDE 20 MEQ ER TABLET PO (09:15)
[2024-10-17] MEDS: FUROSEMIDE 40 MG TABLET PO ×2 (09:15→17:28)
[2024-10-17] MEDS: ATORVASTATIN 40 MG TABLET 80 MG PO (09:15)
[2024-10-17 09:16] VITALS: PULSE 70
[2024-10-17] MEDS: busPIRone HCL 5 MG TABLET PO ×2 (09:16→20:26)
[2024-10-17] MEDS: carvediloL 25 MG TABLET PO ×2 (09:16→20:26)
[2024-10-17] MEDS: APIXABAN 5 MG TABLET PO ×2 (09:16→20:26)
[2024-10-17] MEDS: LOSARTAN POTASSIUM 100 MG TABLET PO (09:16)
[2024-10-17] MEDS: SPIRONOLACTONE 25 MG TABLET PO (09:16)
[2024-10-17] MEDS: DOXAZOSIN MESYLATE 4 MG TABLET PO (09:16)
[2024-10-17] MEDS: CLOPIDOGREL BISULFATE 75 MG TABLET PO (09:16)
[2024-10-17] MEDS: amLODIPine BESYLATE 10 MG TABLET PO (09:16)
[2024-10-17] MEDS: ISOSORBIDE MONONITRATE 30 MG TAB.ER.24H PO (09:16)
[2024-10-17 11:26] LABS: Glucose Point of Care 118 mg/dl (65-105)
[2024-10-17 14:00] VITALS: BP 123/50; PULSE 77; RESP 18; TEMP 36.6; O2SAT 95
[2024-10-17 16:54] LABS: Glucose Point of Care 134 mg/dl (65-105)
[2024-10-17] MEDS: SIMVASTATIN 20 MG TABLET PO (17:28)
--- NOTE | 2024-10-17 18:00 | PM.IMPN ---
Progress Note: A&P Assessment and Plan (1) Cerebellar stroke, acute: Code(s): I63.9 - Cerebral infarction, unspecified Status: Acute (2) Right-sided extracranial carotid artery stenosis: Code(s): I65.21 - Occlusion and stenosis of right carotid artery Status: Acute (3) Weakness: Code(s): R53.1 - Weakness Status: Acute (4) PAF (paroxysmal atrial fibrillation): Code(s): I48.0 - Paroxysmal atrial fibrillation Status: Acute (5) CAD (coronary artery disease): Code(s): I25.10 - Atherosclerotic heart disease of [place] coronary artery without angina pectoris Status: Acute (6) CHF (congestive heart failure): Qualifiers: Heart failure chronicity: acute on chronic Heart failure type: diastolic Qualified Code(s): I50.33 - Acute on chronic diastolic (congestive) heart failure Code(s): I50.9 - Heart failure, unspecified Status: Acute (7) HTN (hypertension): Code(s): I10 - Essential (primary) hypertension Status: Acute (8) COPD (chronic obstructive pulmonary disease): Code(s): J44.9 - Chronic obstructive pulmonary disease, unspecified Status: Acute (9) Diabetes mellitus: Code(s): E11.9 - Type 2 diabetes mellitus without complications Status: Acute Plan Patient presents with weakness which appears to be more difficulty with coordination. Head CT shows chronic stable hypodense area the left brachium pontis when compared to a CT a week ago. This could be subacute infarct. Patient did have an MRI 2 weeks ago and we have requested records from [place]. Brain MRI on May showed a couple of small lacunar infarcts in the right lentiform nucleus and right cerebellum. CTA of the head and neck in May showed near occlusion of the right proximal internal carotid artery. He also had a 66% stenosis of the proximal left internal carotid artery. Patient was transferred to [facility] during that hospitalization. The discharge note states that the weakness in his legs resolved prior to admission to [place]. Suspected the patient's lower extremity weakness symptoms were related to spinal pathology. No surgery was performed for his carotid stenosis. Aspirin and statin were recommended. Patient's evaluation here shows no acute findings. BNP is elevated but no clinical evidence of CHF exacerbation. Findings on chest x-ray more consistent with chronic interstitial changes and not pulmonary edema. Will resume home medications. Request records from [place]. Will check B12, folate and TSH. His field contact person is aware of the pedal edema. Will add compression hose. Consider performing MRI of the brain to exclude cerebellar infarct if this was not done at [place]. Start PT and OT. Plan for placement for subacute rehab. Add BuSpar for his anxiety. He does have some mild confusion probably more related to vascular dementia and from acute process. No evidence of acute infection. A1c is 5.9. Will hold his glipizide and monitor glucose with sliding scale. Further recommendation as course dictates 10/16/24 -- No change in condition. Old records from [place] reviewed but no brain MRI noted. CT brain at [place] showed no acute findings and similar in findings to MRI in May. Labs including B12 and Folate are essentially normal. He is still very anxious per RN. Will advance Buspar. Patient walked 120 feet with wheeled walker. He has known severe Rt carotid stenosis but not felt safe to proceed with surgery. Plan is still for SNF placement for his unsteady gait. Will proceed with MRI brain. Consider CTA head/neck but no plans for surgery so continue medical management. 10/17/24 -- Patient had brain MRI this morning showing acute infarct in the left middle cerebellar peduncle. [place] either related to intracerebral event or embolic from his known atherosclerotic disease or from his AFib. He has been compliant with his Eliquis. Unclear when this occurred since his symptoms were evident at [place] 2 weeks ago. CTA brain and carotid again showing the near occlusive stenosis on the right carotid bulb and now 70% stenosis of the left carotid bulb (66% in May). Moderate stenosis at the left carotid siphon and left vertebral artery. Neuro consult. He has seen vascular surgery in May but no plans for surgical treatment. Discharge summary said patient will need close outpatient follow-up with Dr Colindres. Continue medical management. Plan for patient to follow-up with Dr Colindres after discharge. SNF vs [facility] planned. His anxiety is better. Will continue to follow. Code status -full code DVT prophylaxis - Eliquis Subjective Date/time seen: 10/17/24 18:00 Interval history: 84yo male with CAD, COPD, DM, AFib and CHF here for shortness of breath and confusion. Patient feels less anxious. Slept better. Exam Narrative: AF 97.9 123/50 77 18 95% ra Gen - NARD Chest - bibasilar crackles o/w clear. CV - RRR. S1-S2. Abd - Soft. Nontender. Nondistended. Positive bowel sounds. Ext - trace edema. Zain hose in place Psych - normal mood and affect. Skin - warm and dry. Objective Data Vital Signs Vital Signs: Vital Signs - 24 hr 10/16/24 21:25 10/16/24 21:27 10/16/24 21:28 Temperature 97.7 F Pulse Rate 67 67 Respiratory Rate 16 Blood Pressure 160/63 H Pulse Oximetry 97 Oxygen Delivery Room Air 10/17/24 04:25 10/17/24 08:00 10/17/24 09:16 Temperature 98.1 F Pulse Rate 76 70 Respiratory Rate 16 Blood Pressure 154/68 H Pulse Oximetry 98 Oxygen Delivery Room Air 10/17/24 14:00 Temperature 97.9 F Pulse Rate 77 Respiratory Rate 18 Blood Pressure 123/50 L Pulse Oximetry 95 Oxygen Delivery Intake/Output Intake/Output: Intake & Output 10/14/24 10/15/24 10/16/24 10/17/24 23:59 23:59 23:59 23:59 Intake Total 956 2150 1280 Output Total 4226 081 1437 Balance -494 1850 -20 Meds/Results Medications: Active Medications Generic Name Dose Route Start Last Admin Trade Name Freq PRN Reason Stop Dose Admin Albuterol 1 puff 10/15/24 12:13 Albuterol Sulfate (*Sp) Aerosol 1 Puff INHALATION Q4H PRN Shortness Of Breath Or Wheezing Amlodipine Besylate 10 mg 10/15/24 12:15 10/17/24 09:16 Amlodipine Besylate 10 Mg Tablet PO 10 mg DAILY THOMPSON Administration Apixaban 5 mg 10/15/24 12:15 10/17/24 09:16 Apixaban 5 Mg Tablet PO 5 mg Q12HR THOM[facility]ON Administration Atorvastatin Calcium 80 mg 10/16/24 09:00 10/17/24 09:15 Atorvastatin 40 Mg Tablet PO 80 mg DAILY THOM[facility]ON Administration Buspirone HCl 5 mg 10/16/24 21:00 10/17/24 09:16 Buspirone Hcl 5 Mg Tablet PO 5 mg Q12HR THOMPSON Administration Carvedilol 25 mg 10/15/24 21:00 10/17/24 09:16 Carvedilol 25 Mg Tablet PO 25 mg Q12HR THOMPSON Administration Clopidogrel Bisulfate 75 mg 10/15/24 12:15 10/17/24 09:16 Clopidogrel Bisulfate 75 Mg Tablet PO 75 mg DAILY THOMPSON Administration Dextrose 12.5 gm 10/15/24 12:16 Dextrose 50% 25 Gm/50 Ml Syringe IV PUSH PRN PRN Hypoglycemia Protocol Doxazosin Mesylate 4 mg 10/16/24 09:00 10/17/24 09:16 Doxazosin Mesylate 4 Mg Tablet PO 4 mg DAILY THOMPSON Administration Furosemide 40 mg 10/15/24 17:00 10/17/24 17:28 Furosemide 40 Mg Tablet PO 40 mg BID THOM[facility]ON Administration Glucagon 1 mg 10/15/24 12:16 Glucagon For Inj 1 Mg Vial IM PRN PRN Hypoglycemia Protocol Glucose 15 gm 10/15/24 12:16 Glucose Oral Gel 15 Gm Of Glucse In 37.5 Gm Tube PO PRN PRN Hypoglycemia Protocol Dextrose 1,000 mls @ 100 mls/hr 10/15/24 12:16 Dextrose 5% 1,000 Ml IVPB PRN PRN Hypoglycemia Protocol Insulin Aspart 3 - 6 units 10/15/24 17:00 10/17/24 17:27 Insulin Aspart (*Bkc) 100 Units/Ml SUB-Q Not Given TIDWM THOMPSON Protocol Isosorbide Mononitrate 30 mg 10/15/24 12:15 10/17/24 09:16 Isosorbide Mononitrate 30 Mg Tab.Er.24h PO 30 mg DAILY THOMPSON Administration Losartan Potassium 100 mg 10/15/24 12:15 10/17/24 09:16 Losartan Potassium 100 Mg Tablet PO 100 mg DAILY THOMPSON Administration Melatonin 5 mg 10/15/24 21:00 10/16/24 21:28 Melatonin 5 Mg Tablet PO 5 mg HS THOMPSON Administration Paroxetine HCl 20 mg 10/16/24 09:00 10/17/24 09:15 Paroxetine 20 Mg Tablet PO 20 mg QAM THOM[facility]ON Administration Potassium Chloride 20 meq 10/16/24 09:00 10/17/24 09:15 Potassium Chloride 20 Meq Er Tablet PO 20 meq DAILY THOMPSON Administration Simvastatin 20 mg 10/15/24 18:00 10/17/24 17:28 Simvastatin 20 Mg Tablet PO 20 mg QPM THOMPSON Administration Spironolactone 25 mg 10/16/24 09:00 10/17/24 09:16 Spironolactone 25 Mg Tablet PO 25 mg DAILY THOMPSON Administration Radiology Results: ITS Impressions Head CT 10/15/24 06:01 Impression: Stable hypodense area in the left brachium pontis. This could reflect chronic versus subacute infarct. Atrophy and chronic white matter changes, as above. Chest X-Ray 10/15/24 06:03 Impression: Central congestive change and probable mild pulmonary edema. Stable cardiomegaly, status post aortic valve replacement. Chest CT 10/15/24 06:12 Impression: Chronic interstitial pulmonary disease, as detailed above. Brain MRI 10/17/24 08:48 IMPRESSION: 1. Acute infarct in the left middle cerebellar peduncle. 2. Old lacunar infarct in the right basal ganglia. Head/Neck CTA 10/17/24 11:29 IMPRESSION: 1. Near occlusion stenosis of the right carotid bulb with diffuse decreased caliber of the more distal right internal carotid artery. 2. 70% stenosis of the left carotid bulb relative to normal distal artery lumen diameter (NASCET criteria). 3. Age-related changes the brain with acute infarct at the left middle cerebellar peduncle. 4. Moderate stenosis at the left carotid siphon and left vertebral artery. 5. Unchanged linear filling defect within the petrous portion of the right internal carotid artery suspicious for a chronic dissection. Labs Labs: Laboratory Results - last 24 hr 10/16/24 10/16/24 10/17/24 06:13 21:27 07:19 POC Capillary Glucose 121 H 115 H Total T3 1.37 10/17/24 10/17/24 11:20 16:52 POC Capillary Glucose 118 H 134 H Total T3
[2024-10-17 20:10] VITALS: BP 142/50; PULSE 73; RESP 20; TEMP 36.6; O2SAT 97
[2024-10-17 20:26] VITALS: PULSE 73
[2024-10-17] MEDS: MELATONIN 5 MG TABLET PO (20:26)
[2024-10-17 21:13] LABS: Glucose Point of Care 117 mg/dl (65-105)
[2024-10-18 04:50] VITALS: BP 161/56; PULSE 78; RESP 20; TEMP 36.7; O2SAT 97
[2024-10-18 06:54] LABS: Basophils Percent Auto 0.5 % (0.2-1.2); Eosinophils Absolute Auto 0.2 K/mm3 (0-0.3); Eosinophils Percent Auto 2.7 % (0-4.4); Hematocrit 32.8 % (42.0-52.0); Hemoglobin 10.8 g/dL (14.0-18.0); Immature Granulocyte Absolute 0.03 K/mm3 (0.00-0.031); Immature Granulocyte Percent A 0.5 % (0-0.5); Lymphocytes Absolute Auto 1.27 K/mm3 (0.9-3.2); Lymphocytes Percent Auto 19.1 % (18.3-44.2); Mean Corpuscular HGB Conc 32.9 g/dl (32-36); Mean Corpuscular Volume 94.3 fl (80-100); Mean Platelet Volume 10.7 fl (7.4-10.4); Monocytes Absolute Auto 0.6 K/mm3 (0.1-0.6); Monocytes Percent Auto 8.4 % (2.6-8.5); Neutrophils Absolute Auto 4.6 K/mm3 (1.3-6.7); Neutrophils Percent Auto 68.8 % (45.5-73.1); Platelet Count Result 183 k/mm3 (150-375); Red Blood Count 3.48 M/mm3 (4.6-6.20); Red Cell Distribution Width 14.4 % (11.5-14.5); White Blood Count 6.6 K/mm3 (4.5-10.0)
[2024-10-18 07:06] LABS: Albumin Level 3.6 g/dL (3.5-5.1); Anion Gap 6 mmol/L (4-12); Blood Urea Nitrogen 15 mg/dL (9-20); Calcium 8.5 mg/dL (8.4-10.2); Carbon Dioxide 29 mmol/L (22-30); Chloride 102 mmol/L (98-107); Estimated CRCL calculation 57 ml/min; Estimated Glomerular Filt Rate > 60; Glucose 99 mg/dL (65-110); Potassium 3.5 mmol/L (3.4-5.0); Sodium 137 mmol/L (137-145)
[2024-10-18 08:08] LABS: Glucose Point of Care 90 mg/dl (65-105)
[2024-10-18 08:14] VITALS: PULSE 73
[2024-10-18] MEDS: amLODIPine BESYLATE 10 MG TABLET PO (08:14)
[2024-10-18] MEDS: APIXABAN 5 MG TABLET PO (08:14)
[2024-10-18] MEDS: LOSARTAN POTASSIUM 100 MG TABLET PO (08:14)
[2024-10-18] MEDS: busPIRone HCL 5 MG TABLET PO (08:14)
[2024-10-18] MEDS: ATORVASTATIN 40 MG TABLET 80 MG PO (08:14)
[2024-10-18] MEDS: CLOPIDOGREL BISULFATE 75 MG TABLET PO (08:14)
[2024-10-18] MEDS: POTASSIUM CHLORIDE 20 MEQ ER TABLET PO (08:14)
[2024-10-18] MEDS: carvediloL 25 MG TABLET PO (08:14)
[2024-10-18] MEDS: FUROSEMIDE 40 MG TABLET PO ×2 (08:14→16:05)
[2024-10-18] MEDS: SPIRONOLACTONE 25 MG TABLET PO (08:14)
[2024-10-18] MEDS: ISOSORBIDE MONONITRATE 30 MG TAB.ER.24H PO (08:15)
[2024-10-18] MEDS: PARoxetine 20 MG TABLET PO (08:15)
[2024-10-18] MEDS: DOXAZOSIN MESYLATE 4 MG TABLET PO (08:15)
--- NOTE | 2024-10-18 09:12 | PM.IMPN ---
Progress Note: A&P Assessment and Plan (1) Cerebellar stroke, acute: Code(s): I63.9 - Cerebral infarction, unspecified Status: Acute (2) Right-sided extracranial carotid artery stenosis: Code(s): I65.21 - Occlusion and stenosis of right carotid artery Status: Acute (3) Weakness: Code(s): R53.1 - Weakness Status: Acute (4) PAF (paroxysmal atrial fibrillation): Code(s): I48.0 - Paroxysmal atrial fibrillation Status: Acute (5) CAD (coronary artery disease): Code(s): I25.10 - Atherosclerotic heart disease of [place] coronary artery without angina pectoris Status: Acute (6) CHF (congestive heart failure): Qualifiers: Heart failure chronicity: acute on chronic Heart failure type: diastolic Qualified Code(s): I50.33 - Acute on chronic diastolic (congestive) heart failure Code(s): I50.9 - Heart failure, unspecified Status: Acute (7) HTN (hypertension): Code(s): I10 - Essential (primary) hypertension Status: Acute (8) COPD (chronic obstructive pulmonary disease): Code(s): J44.9 - Chronic obstructive pulmonary disease, unspecified Status: Acute (9) Diabetes mellitus: Code(s): E11.9 - Type 2 diabetes mellitus without complications Status: Acute Plan Patient presents with weakness which appears to be more difficulty with coordination. Head CT shows chronic stable hypodense area the left brachium pontis when compared to a CT a week ago. This could be subacute infarct. Patient did have an MRI 2 weeks ago and we have requested records from [place]. Brain MRI on May showed a couple of small lacunar infarcts in the right lentiform nucleus and right cerebellum. CTA of the head and neck in May showed near occlusion of the right proximal internal carotid artery. He also had a 66% stenosis of the proximal left internal carotid artery. Patient was transferred to [facility] during that hospitalization. The discharge note states that the weakness in his legs resolved prior to admission to [place]. Suspected the patient's lower extremity weakness symptoms were related to spinal pathology. No surgery was performed for his carotid stenosis. Aspirin and statin were recommended. Patient's evaluation here shows no acute findings. BNP is elevated but no clinical evidence of CHF exacerbation. Findings on chest x-ray more consistent with chronic interstitial changes and not pulmonary edema. Will resume home medications. Request records from [place]. Will check B12, folate and TSH. His administrative nursing supervisor is aware of the pedal edema. Will add compression hose. Consider performing MRI of the brain to exclude cerebellar infarct if this was not done at [place]. Start PT and OT. Plan for placement for subacute rehab. Add BuSpar for his anxiety. He does have some mild confusion probably more related to vascular dementia and from acute process. No evidence of acute infection. A1c is 5.9. Will hold his glipizide and monitor glucose with sliding scale. Further recommendation as course dictates 10/16/24 -- No change in condition. Old records from [place] reviewed but no brain MRI noted. CT brain at [place] showed no acute findings and similar in findings to MRI in May. Labs including B12 and Folate are essentially normal. He is still very anxious per RN. Will advance Buspar. Patient walked 120 feet with wheeled walker. He has known severe Rt carotid stenosis but not felt safe to proceed with surgery. Plan is still for SNF placement for his unsteady gait. Will proceed with MRI brain. Consider CTA head/neck but no plans for surgery so continue medical management. 10/17/24 -- Patient had brain MRI this morning showing acute infarct in the left middle cerebellar peduncle. [place] either related to intracerebral event or embolic from his known atherosclerotic disease or from his AFib. He has been compliant with his Eliquis. Unclear when this occurred since his symptoms were evident at [place] 2 weeks ago. CTA brain and carotid again showing the near occlusive stenosis on the right carotid bulb and now 70% stenosis of the left carotid bulb (66% in May). Moderate stenosis at the left carotid siphon and left vertebral artery. Neuro consult. He has seen vascular surgery in May but no plans for surgical treatment. Discharge summary said patient will need close outpatient follow-up with Dr Colindres. Continue medical management. Plan for patient to follow-up with Dr Colindres after discharge. SNF vs [facility] planned. His anxiety is better. Will continue to follow. Code status -full code DVT prophylaxis - Eliquis Subjective Date/time seen: 10/18/24 09:12 Interval history: 84yo male with CAD, COPD, DM, AFib and CHF here for shortness of breath and confusion. Patient feels less anxious. Slept better. Exam Narrative: AF 98.1 161/56 73 20 97% ra Gen - NARD Chest - bibasilar crackles o/w clear. CV - RRR. S1-S2. Abd - Soft. Nontender. Nondistended. Positive bowel sounds. Ext - trace edema. Zain hose in place Psych - normal mood and affect. Skin - warm and dry. Objective Data Vital Signs Vital Signs: Vital Signs - 24 hr 10/17/24 09:16 10/17/24 14:00 10/17/24 20:10 Temperature 97.9 F 97.9 F Pulse Rate 70 77 73 Respiratory Rate 18 20 Blood Pressure 123/50 L 142/50 H Pulse Oximetry 95 97 Oxygen Delivery 10/17/24 20:26 10/17/24 20:26 10/18/24 04:50 Temperature 98.1 F Pulse Rate 73 78 Respiratory Rate 20 Blood Pressure 161/56 H Pulse Oximetry 97 Oxygen Delivery Room Air 10/18/24 08:14 Temperature Pulse Rate 73 Respiratory Rate Blood Pressure Pulse Oximetry Oxygen Delivery Intake/Output Intake/Output: Intake & Output 10/15/24 10/16/24 10/17/24 10/18/24 23:59 23:59 23:59 23:59 Intake Total 956 2150 1280 600 Output Total 0614 510 6795 550 Balance -494 1850 -20 50 Meds/Results Medications: Active Medications Generic Name Dose Route Start Last Admin Trade Name Freq PRN Reason Stop Dose Admin Albuterol 1 puff 10/15/24 12:13 Albuterol Sulfate (*Sp) Aerosol 1 Puff INHALATION Q4H PRN Shortness Of Breath Or Wheezing Amlodipine Besylate 10 mg 10/15/24 12:15 10/18/24 08:14 Amlodipine Besylate 10 Mg Tablet PO 10 mg DAILY TH[facility]ON Administration Apixaban 5 mg 10/15/24 12:15 10/18/24 08:14 Apixaban 5 Mg Tablet PO 5 mg Q12HR THOM[facility]ON Administration Atorvastatin Calcium 80 mg 10/16/24 09:00 10/18/24 08:14 Atorvastatin 40 Mg Tablet PO 80 mg DAILY THOM[facility]ON Administration Buspirone HCl 5 mg 10/16/24 21:00 10/18/24 08:14 Buspirone Hcl 5 Mg Tablet PO 5 mg Q12HR THOM[facility]ON Administration Carvedilol 25 mg 10/15/24 21:00 10/18/24 08:14 Carvedilol 25 Mg Tablet PO 25 mg Q12HR THOM[facility]ON Administration Clopidogrel Bisulfate 75 mg 10/15/24 12:15 10/18/24 08:14 Clopidogrel Bisulfate 75 Mg Tablet PO 75 mg DAILY THOM[facility]ON Administration Dextrose 12.5 gm 10/15/24 12:16 Dextrose 50% 25 Gm/50 Ml Syringe IV PUSH PRN PRN Hypoglycemia Protocol Doxazosin Mesylate 4 mg 10/16/24 09:00 10/18/24 08:15 Doxazosin Mesylate 4 Mg Tablet PO 4 mg DAILY TH[facility]ON Administration Furosemide 40 mg 10/15/24 17:00 10/18/24 08:14 Furosemide 40 Mg Tablet PO 40 mg BID TH[facility]ON Administration Glucagon 1 mg 10/15/24 12:16 Glucagon For Inj 1 Mg Vial IM PRN PRN Hypoglycemia Protocol Glucose 15 gm 10/15/24 12:16 Glucose Oral Gel 15 Gm Of Glucse In 37.5 Gm Tube PO PRN PRN Hypoglycemia Protocol Dextrose 1,000 mls @ 100 mls/hr 10/15/24 12:16 Dextrose 5% 1,000 Ml IVPB PRN PRN Hypoglycemia Protocol Insulin Aspart 3 - 6 units 10/15/24 17:00 10/18/24 08:13 Insulin Aspart (*Bkc) 100 Units/Ml SUB-Q Not Given TIDWM THOMPSON Protocol Isosorbide Mononitrate 30 mg 10/15/24 12:15 10/18/24 08:15 Isosorbide Mononitrate 30 Mg Tab.Er.24h PO 30 mg DAILY THOMPSON Administration Losartan Potassium 100 mg 10/15/24 12:15 10/18/24 08:14 Losartan Potassium 100 Mg Tablet PO 100 mg DAILY TH[facility]ON Administration Melatonin 5 mg 10/15/24 21:00 10/17/24 20:26 Melatonin 5 Mg Tablet PO 5 mg HS THOM[facility]ON Administration Paroxetine HCl 20 mg 10/16/24 09:00 10/18/24 08:15 Paroxetine 20 Mg Tablet PO 20 mg QAM THOM[facility]ON Administration Potassium Chloride 20 meq 10/16/24 09:00 10/18/24 08:14 Potassium Chloride 20 Meq Er Tablet PO 20 meq DAILY THOMPSON Administration Spironolactone 25 mg 10/16/24 09:00 10/18/24 08:14 Spironolactone 25 Mg Tablet PO 25 mg DAILY THOMPSON Administration Radiology Results: ITS Impressions Head CT 10/15/24 06:01 Impression: Stable hypodense area in the left brachium pontis. This could reflect chronic versus subacute infarct. Atrophy and chronic white matter changes, as above. Chest X-Ray 10/15/24 06:03 Impression: Central congestive change and probable mild pulmonary edema. Stable cardiomegaly, status post aortic valve replacement. Chest CT 10/15/24 06:12 Impression: Chronic interstitial pulmonary disease, as detailed above. Brain MRI 10/17/24 08:48 IMPRESSION: 1. Acute infarct in the left middle cerebellar peduncle. 2. Old lacunar infarct in the right basal ganglia. Head/Neck CTA 10/17/24 11:29 IMPRESSION: 1. Near occlusion stenosis of the right carotid bulb with diffuse decreased caliber of the more distal right internal carotid artery. 2. 70% stenosis of the left carotid bulb relative to normal distal artery lumen diameter (NASCET criteria). 3. Age-related changes the brain with acute infarct at the left middle cerebellar peduncle. 4. Moderate stenosis at the left carotid siphon and left vertebral artery. 5. Unchanged linear filling defect within the petrous portion of the right internal carotid artery suspicious for a chronic dissection. Labs Labs: Laboratory Results - last 24 hr 10/17/24 10/17/24 10/17/24 11:20 16:52 20:13 WBC RBC Hgb Hct MCV MCH MCHC RDW Plt Count MPV Immature Gran % (Auto) Neut % (Auto) Lymph % (Auto) [place] % (Auto) Eos % (Auto) Baso % (Auto) Lymph # (Auto) [place] # (Auto) Eos # (Auto) Baso # (Auto) Abs Immat Gran (auto) Absolute Neuts (auto) Absolute Nucleated RBC Nucleated RBC % Sodium Potassium Chloride Carbon Dioxide Anion Gap BUN Creatinine Estim Creat Clear Calc Estimated GFR Glucose POC Capillary Glucose 118 H 134 H 117 H Calcium Phosphorus Magnesium Albumin 10/18/24 10/18/24 06:31 07:59 WBC 6.6 RBC 3.48 L Hgb 10.8 L Hct 32.8 L MCV 94.3 MCH 31.0 MCHC 32.9 RDW 14.4 Plt Count 183 MPV 10.7 H Immature Gran % (Auto) 0.5 Neut % (Auto) 68.8 Lymph % (Auto) 19.1 [place] % (Auto) 8.4 Eos % (Auto) 2.7 Baso % (Auto) 0.5 Lymph # (Auto) 1.27 [place] # (Auto) 0.6 Eos # (Auto) 0.2 Baso # (Auto) 0.0 Abs Immat Gran (auto) 0.03 Absolute Neuts (auto) 4.6 Absolute Nucleated RBC 0.000 Nucleated RBC % 0.0 Sodium 137 Potassium 3.5 Chloride 102 Carbon Dioxide 29 Anion Gap 6 BUN 15 Creatinine 0.91 Estim Creat Clear Calc 57 Estimated GFR > 60 Glucose 99 POC Capillary Glucose 90 Calcium 8.5 Phosphorus 4.0 Magnesium 2.0 Albumin 3.6
--- NOTE | 2024-10-18 11:13 | WPDNEURCNPN ---
Assessment and Plan Assessment and plan (1) Carotid artery stenosis, symptomatic: Code(s): I65.29 - Occlusion and stenosis of unspecified carotid artery Status: Acute (2) Carotid disease, bilateral: Code(s): I77.9 - Disorder of arteries and arterioles, unspecified Status: Acute (3) Stenosis of left vertebral artery: Code(s): I65.02 - Occlusion and stenosis of left vertebral artery Status: Acute Plan 1. Status post acute infarct in left middle cerebellar peduncle in addition to old lacunar infarct in right basal ganglia. Near occlusion stenosis of the right carotid bulb with diffuse decreased caliber of the more distal right internal carotid artery as well with 70% stenosis of left carotid bulb relatively normal distal lumen 3. Moderate stenosis of left carotid siphon and left vertebral artery as well and 4. Unchanged linear filling defect within the petrous portion of the right internal carotid artery suspicion for the chronic dissection 5. Anemia. Patient is already receiving apixaban 5mg q.12 hours, atorvastatin 80mg daily, clopidogrel 75mg daily, 6 patient can be referred to the vascular surgeon considering the multiple complicated factors if they are unable to do any surgical intervention or into stenting obviously then he needs to continue on both the medication he is taking right now family should understand all the pros and cons of this particular situation. Consult date: 10/18/24 HPI: Ashkan Pryor is a 84 year old male admitted to the hospital through the emergency room for the complaints of increasing confusion in addition to the worsening exertional shortness of breath, and increased fatigue, and multiple falls. He had fallen about 2 days ago when he was seen in the emergency room and was found to have an abrasion to his nose and the left side of the forehead though he has not fallen since then. He has been taking multiple medications as outlined including apixaban 5mg twice a day, glipizide 5mg extended tablet once a day atorvastatin 80mg daily, clopidogrel 75mg daily, methocarbamol 500mg p.o. b.i.d,. paroxetine 20mg daily, simvastatin 20mg daily, as per the information available is allergic to metformin, in the past he has been documented to have 1. TIA 2. Right-sided extracranial carotid artery stenosis 3. COPD 4. Diabetes mellitus 5. Congestive heart failure 6. Atrial fibrillation 7. Aortic valvular disease And he has undergone aortic valve replacement. He is never a smoker, never alcohol intake or, on initial evaluation in the ER vital signs were normal, BMP with blood sugar 126 and BUN 21, negative for the routine viral screening, brain MRI with acute infarct in the left middle cerebellar peduncle and old lacunar infarct in right basal ganglia, recent chest x-ray with central congestive changes with possibility of mild pulmonary edema, and stable cardiomegaly with post aortic valve replacement. Review of Systems Review of Systems: All systems reviewed & are unremarkable except as noted in HPI and below [facility] Past Medical History Medical History CAD (coronary artery disease) Stent placed 2023 TIA (transient ischemic attack) Right-sided extracranial carotid artery stenosis COPD (chronic obstructive pulmonary disease) Diabetes mellitus CHF (congestive heart failure) Atrial fibrillation Aortic valve disease Surgical History Surgical History H/O aortic valve replacement Family History Family History Father Hypertension Heart disease Mother Cancer Diabetes mellitus Hypertension Social History Social History Social History: Lifelong nonsmoker. No alcohol use. No drug use. Full code. He nominates his to be his surrogate decision maker. Smoking status: Never smoker Alcohol intake: never Substance use: never Substance use type: does not use Do You Feel Safe in your Home?: Yes Lack of Transportation: No Lack of Food: Never True Current Housing: I Have Housing Concerned About Future Housing: No Difficulty Paying Gas/Electric Bills: YES Difficulty Paying for Meds: YES Currently Unemployed: No Education: High School Diploma/GED Difficulty w/ Childcare or Family Care: No Living arrangements: with family Occupation/Education: retired Gender identity (if verbalized by the patient): Male Spiritual care concerns: No Meds Home Medications and Allergies Home Medications ?Medication ?Instructions ?Recorded ?Confirmed ?Type carvedilol 25 mg tablet 25 mg PO BID #180 tabs 02/14/23 10/15/24 Rx doxazosin 4 mg tablet 4 mg PO DAILY #90 tabs 02/14/23 10/15/24 Rx losartan 100 mg tablet 100 mg PO DAILY #90 tabs 02/14/23 10/15/24 Rx albuterol sulfate 90 mcg/actuation 1 inh inhalation Q4H PRN Shortness 12/27/23 10/15/24 History aerosol inhaler Of Breath Or Wheezing apixaban 5 mg tablet 5 mg PO BID 12/27/23 10/15/24 History glipizide 5 mg tablet, extended 5 mg PO DAILY 12/27/23 10/15/24 History release 24 hr lancets 30 gauge 12/27/23 10/15/24 History blood sugar diagnostic (Accu-Chek #100 ea 02/22/24 10/15/24 Rx Guide test strips) blood-glucose meter (Accu-Chek #1 ea 02/22/24 10/15/24 Rx Guide Glucose Meter) atorvastatin 80 mg tablet 80 mg PO DAILY 05/29/24 10/15/24 History potassium chloride 20 mEq 20 meq PO DAILY #30 tabs 09/18/24 10/15/24 Rx tablet,extended release (K-Tab) clopidogrel 75 mg tablet 75 mg PO DAILY 09/21/24 10/15/24 History isosorbide mononitrate 30 mg 30 mg PO DAILY 09/21/24 10/15/24 History tablet,extended release 24 hr methocarbamol 500 mg tablet 500 mg PO BID MUSCLE SPASM 09/21/24 10/15/24 History paroxetine HCl 20 mg tablet 20 mg PO QAM 09/21/24 10/15/24 History simvastatin 20 mg tablet 20 mg PO QPM 09/21/24 10/15/24 History furosemide 40 mg tablet 40 mg PO BID #90 tabs 10/13/24 10/15/24 Rx spironolactone 25 mg tablet 25 mg PO DAILY 10/15/24 10/15/24 History amlodipine 10 mg tablet 10 mg PO DAILY #90 tabs 10/17/24 Rx Allergies Allergy/AdvReac Type Severity Reaction Status Date / Time metformin AdvReac Intermediate Diarrhea Verified 10/14/24 16:30 Vital Signs Vital Signs - 24 hr 10/17/24 14:00 10/17/24 20:10 10/17/24 20:26 Temperature 36.6 C 36.6 C Pulse Rate 77 73 73 Respiratory Rate 18 20 Blood Pressure 123/50 L 142/50 H Pulse Oximetry 95 97 Oxygen Delivery 10/17/24 20:26 10/18/24 04:50 10/18/24 08:00 Temperature 36.7 C Pulse Rate 78 Respiratory Rate 20 Blood Pressure 161/56 H Pulse Oximetry 97 Oxygen Delivery Room Air Room Air 10/18/24 08:14 Temperature Pulse Rate 73 Respiratory Rate Blood Pressure Pulse Oximetry Oxygen Delivery Exam Narrative: revealed him to be awake alert cooperative in no obvious acute distress, head normocephalic with no cranial bruit, ear nose throat examination normal, neck supple with cervical bruit, heart regular with no murmur, lungs clear to auscultation with no rhonchi or crepitations, abdomen is soft nontender normal bowel sounds, neurologically he is awake alert oriented x4 pupils round regular feels the vision full extraocular movements full face asymmetrical tongue midline motor examination revealed him to have 4/5 strength in both upper and lower extremities with bilateral dysmetria on [id number]-finger , deep tendon reflexes are brisk plantars are questionably up. Results Labs 10/18/24 06:31 10/18/24 06:31 Labs: Short CBC 10/18/24 Range/Units 06:31 WBC 6.6 (4.5-10.0) K/mm3 Hgb 10.8 L (14.0-18.0) g/dL Hct 32.8 L (42.0-52.0) % Plt Count 183 (150-375) k/mm3 BMP 10/18/24 06:31 Sodium 137 Potassium 3.5 Chloride 102 Carbon Dioxide 29 BUN 15 Creatinine 0.91 Glucose 99 Calcium 8.5 Liver Function 10/18/24 Range/Units 06:31 Albumin 3.6 (3.5-5.1) g/dL
[2024-10-18 11:47] LABS: Glucose Point of Care 102 mg/dl (65-105)
[2024-10-18 13:55] VITALS: BP 135/52; PULSE 60; RESP 18; TEMP 36.4; O2SAT 97
--- NOTE | 2024-10-18 14:01 | PM.DS ---
DS: Admitting Diagnosis Discharge Date 10/18/24 Admitting Diagnosis SOB DS: Discharge Diagnosis Discharge Diagnosis (1) Cerebellar stroke, acute: Code(s): I63.9 - Cerebral infarction, unspecified Status: Acute (2) Right-sided extracranial carotid artery stenosis: Code(s): I65.21 - Occlusion and stenosis of right carotid artery Status: Acute (3) Weakness: Code(s): R53.1 - Weakness Status: Acute (4) PAF (paroxysmal atrial fibrillation): Code(s): I48.0 - Paroxysmal atrial fibrillation Status: Acute (5) CAD (coronary artery disease): Code(s): I25.10 - Atherosclerotic heart disease of [place] coronary artery without angina pectoris Status: Acute (6) CHF (congestive heart failure): Qualifiers: Heart failure chronicity: acute on chronic Heart failure type: diastolic Qualified Code(s): I50.33 - Acute on chronic diastolic (congestive) heart failure Code(s): I50.9 - Heart failure, unspecified Status: Acute (7) HTN (hypertension): Code(s): I10 - Essential (primary) hypertension Status: Acute (8) COPD (chronic obstructive pulmonary disease): Code(s): J44.9 - Chronic obstructive pulmonary disease, unspecified Status: Acute (9) Diabetes mellitus: Code(s): E11.9 - Type 2 diabetes mellitus without complications Status: Acute DS: Summary Hospital Course Reason for hospitalization: 84yo male with CAD, COPD, DM, AFib and CHF here for shortness of breath and confusion. Please see H&P for detail Hospital Course: Patient presented with weakness which appears to be more difficulty with coordination and anxiety symptoms. Head CT shows chronic stable hypodense area in the left brachium pontis when compared to a CT a week ago. This could be subacute infarct. Patient said he had a MRI 2 weeks ago when at [place] but records show this was a CT brain, and not a MRI. Brain MRI on May showed a couple of small lacunar infarcts in the right lentiform nucleus and right cerebellum. CTA of the head and neck in May showed near occlusion of the right proximal internal carotid artery. He also had a 66% stenosis of the proximal left internal carotid artery. Patient was transferred to [facility] during that hospitalization. The discharge note states that the weakness in his legs resolved prior to admission to [place]. Suspected the patient's lower extremity weakness symptoms were related to spinal pathology. No surgery was performed for his carotid stenosis. Aspirin and statin were recommended and he was supposed to follow up with Dr Colindres but patient never arranged this followup appointment. Patient's lab evaluation here shows no acute findings. BNP is elevated but no clinical evidence of CHF exacerbation. Findings on chest x-ray more consistent with chronic interstitial changes and not pulmonary edema. We resumed his home medications. B12, folate normal. TSH slightly elevated but normal FT4 at 1.0. 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 We continue his diuretics and added compression hose. He worked with PT and OT. We added BuSpar for his anxiety. No evidence of acute infection. A1c is 5.9. We held his glipizide and monitored glucose with sliding scale. Brain MRI showing acute infarct in the left middle cerebellar peduncle. [place] either related to intracerebral event or embolic from his known atherosclerotic disease or from his AFib. He has been compliant with his Eliquis. Unclear when this occurred but suspect prior to his visit at [facility] given the symptoms on admission and that he has been off balance since discharge. CTA brain and carotid again showing the near occlusive stenosis on the right carotid bulb and now 70% stenosis of the left carotid bulb (66% in May). Moderate stenosis at the left carotid siphon and left vertebral artery. Neuro consulted and appreciate their input. He was seen by vascular surgery in May but no plans for surgical treatment. Will have patient arrange an outpatient follow-up with Dr Colindres. Patient has been accepted at [facility]. Patient overall did well and was able to be discharged on 10/18/24. Status at Discharge Cognitive/behavioral status at discharge: stable Time Spent with Patient Time attestation: Total time spent providing and/or coordinating discharge services: 35 minutes Time spent: Greater than 30 minutes Exam Narrative: AF 97.5 135/52 60 18 97% ra Gen - NARD Chest - CTA bilaterally CV - RRR. S1-S2. Abd - Soft. Nontender. Nondistended. Positive bowel sounds. Ext - trace edema. Zain hose in place Psych - normal mood and affect. Skin - warm and dry. DS: Data Data Completed and Pending Labs on day of discharge: Labs from last 24 hours 10/18/24 10/18/24 10/18/24 11:45 07:59 06:31 WBC 6.6 RBC 3.48 L Hgb 10.8 L Hct 32.8 L MCV 94.3 MCH 31.0 MCHC 32.9 RDW 14.4 Plt Count 183 MPV 10.7 H Immature Gran % (Auto) 0.5 Neut % (Auto) 68.8 Lymph % (Auto) 19.1 Mcdowell % (Auto) 8.4 Eos % (Auto) 2.7 Baso % (Auto) 0.5 Lymph # (Auto) 1.27 Mcdowell # (Auto) 0.6 Eos # (Auto) 0.2 Baso # (Auto) 0.0 Abs Immat Gran (auto) 0.03 Absolute Neuts (auto) 4.6 Absolute Nucleated RBC 0.000 Nucleated RBC % 0.0 Sodium 137 Potassium 3.5 Chloride 102 Carbon Dioxide 29 Anion Gap 6 BUN 15 Creatinine 0.91 Estim Creat Clear Calc 57 Estimated GFR > 60 Glucose 99 POC Capillary Glucose 102 90 Calcium 8.5 Phosphorus 4.0 Magnesium 2.0 Albumin 3.6 10/17/24 10/17/24 20:13 16:52 WBC RBC Hgb Hct MCV MCH MCHC RDW Plt Count MPV Immature Gran % (Auto) Neut % (Auto) Lymph % (Auto) Mcdowell % (Auto) Eos % (Auto) Baso % (Auto) Lymph # (Auto) Mcdowell # (Auto) Eos # (Auto) Baso # (Auto) Abs Immat Gran (auto) Absolute Neuts (auto) Absolute Nucleated RBC Nucleated RBC % Sodium Potassium Chloride Carbon Dioxide Anion Gap BUN Creatinine Estim Creat Clear Calc Estimated GFR Glucose POC Capillary Glucose 117 H 134 H Calcium Phosphorus Magnesium Albumin Discharge Plan Discharge Attending physician on discharge: Jon Currie Consulting providers: Eleazar Roberts Discharging Clinician: Jon Currie Anticipated Discharge Date/Time: 10/18/24 14:18 Patient Disposition: [facility] Activity: as tolerated Diet: heart healthy Discharge Instructions: Please check glucose before meals and before bed. Record for the doctor's review. Check blood pressure 1 to 2 times a day. Record for the doctor's review. Take precautions to avoid falls. Rise slowly from a lying or sitting position. Pause before standing or walking. Check daily morning weights after voiding. Call the doctor if the patient gains more than 3 lb in 2 days or 5 lb in 1 week. Contact the doctor if the patient has any type of trauma, lightheadedness with standing or other worrisome symptoms. Avoid NSAIDs (ibuprofen, naproxen, Aleve). Tylenol is safe to take. Follow-up with the provider at the facility. Follow-up with Dr Colindres in3-4 weeks. Please call [phone] for an appointment for carotid stenosis. Thank you for using [facility] for your health care needs. Patient Instructions: Heart Failure (GEN), Blood Thinners (GEN) Patient Language: Divehi Follow-up/Referrals: Barry Ralph MD [Primary Care Provider] - Call for Appointment Discharge Medications: New buspirone 5 mg Tablet 5 mg PO Q12HR Qty: 60 0RF melatonin 5 mg Tablet 5 mg PO HS Qty: 30 0RF Continued potassium chloride [K-Tab] 20 mEq tablet extended release 20 meq PO DAILY Qty: 30 0RF isosorbide mononitrate 30 mg tablet extended release 24 hr 30 mg PO DAILY clopidogrel 75 mg tablet 75 mg PO DAILY paroxetine HCl 20 mg tablet 20 mg PO QAM apixaban 5 mg tablet 5 mg PO BID (DME) lancets 30 gauge misc See Rx Instructions .Route Rx Instructions: As directed albuterol sulfate 90 mcg/actuation HFA aerosol inhaler 1 inh inhalation Q4H PRN (Reason: Shortness Of Breath Or Wheezing) atorvastatin 80 mg tablet 80 mg PO DAILY furosemide 40 mg tablet 40 mg PO BID Qty: 90 3RF carvedilol 25 mg tablet 25 mg PO BID Qty: 180 3RF doxazosin 4 mg tablet 4 mg PO DAILY Qty: 90 3RF losartan 100 mg tablet 100 mg PO DAILY Qty: 90 3RF spironolactone 25 mg tablet 25 mg PO DAILY (DME) blood-glucose meter [Accu-Chek Guide Glucose Meter] Misc See Rx Instructions .Route Qty: 1 3RF Rx Instructions: Check Blood Glucose 1xday As directed (DME) Accu-Chek Guide test strips Strip See Rx Instructions .Route Qty: 100 3RF Rx Instructions: Check blood glucose 1xday As directed amlodipine 10 mg tablet 10 mg PO DAILY Qty: 90 3RF Changed methocarbamol 500 mg tablet 500 mg PO BID PRN (Reason: MUSCLE SPASM) Qty: 10 0RF Discontinued simvastatin 20 mg tablet 20 mg PO QPM glipizide 5 mg tablet extended release 24hr 5 mg PO DAILY Date of admission: 10/15/24 05:43 Primary Care Provider: Barry Ralph Admitting Provider: Ricki Gomes Attending physician on admission: Ricki Gomes Condition: Stable Hospitalist MIPS Heart Failure (Exclusion) Patient has history of Heart Transplant or Left Ventricular Assistive Device?: No IF YES, STOP HERE Heart Failure (Qualifier) Patient has current or prior documentation of LVEF less than or equal to 40%, or mod/servere depressed LVSF?: No IF NO, STOP HERE
--- NOTE | 2024-10-18 16:09 | PCPTNOTE ---
Pt declined PT today stating that he's leaving for [place].
== END 2024-10-18 16:20 ==
LOC: ANHED 10-15 05:43 → ANH3MEDSUR 10-15 07:03
PROVIDERS: Admitting Provider Internal Medicine; Emergency Provider Emergency Medicine; PCP Family Medicine; Visit Provider Internal Medicine
DX: I63.9 Cerebral infarction, unspecified (principal); I65.21 Occlusion and stenosis of right carotid artery; I65.02 Occlusion and stenosis of left vertebral artery; R53.1 Weakness; I48.0 Paroxysmal atrial fibrillation; I25.10 Atherosclerotic heart disease of native coronary artery without angina pectoris; I11.0 Hypertensive heart disease with heart failure; I50.33 Acute on chronic diastolic (congestive) heart failure; J44.9 Chronic obstructive pulmonary disease, unspecified; E11.9 Type 2 diabetes mellitus without complications; F41.9 Anxiety disorder, unspecified; F40.240 Claustrophobia; R26.81 Unsteadiness on feet; M54.50 Low back pain, unspecified; G89.29 Other chronic pain; Z20.822 Contact with and (suspected) exposure to COVID-19; Z95.2 Presence of prosthetic heart valve; Z95.5 Presence of coronary angioplasty implant and graft; Z86.73 Personal history of transient ischemic attack (TIA), and cerebral infarction without residual deficits; Z79.01 Long term (current) use of anticoagulants; Z79.51 Long term (current) use of inhaled steroids; Z79.84 Long term (current) use of oral hypoglycemic drugs; Z79.899 Other long term (current) drug therapy
CPT/HCPCS: 36415; 70450; 70496; 70498; 70553; 71045; 71250; 80053; 80069; 81003; 82607; 82746; 82948; 83735; 83880; 84439; 84443; 84480; 85025; 85027; 85610; 85730; 87637; 93005; 96374; 97110; 97161; 97165; 97530; 97535; 99285; A9270; A9579; G0378; J2060; Q9967

== ENCOUNTER 2024-12-13 08:44 | Inpatient (IN) | payer MEDICARE, SELFPAY ==
[2024-12-13] VITALS (28 sets, daily range): BP systolic 145–199; BP diastolic 72–126; PULSE 69–110; RESP 12–31; TEMP 36.7–36.9; O2SAT 92–100; BMI 31.4
--- NOTE | ~2024-12-13 | XR_ITS ---
EXAMINATION: XR chest 1V portable DATE: 12/13/2024 08:59 INDICATION: Congestive heart failure TECHNIQUE: frontal view of the chest was obtained. COMPARISON: Chest radiograph and CT dated 10/15/2024 FINDINGS: Mild interstitial and groundglass opacities in the bilateral mid and lower lung zones. No pleural eff usion or pneumothorax. Cardiomegaly. Median sternotomy wires and changes of prior aortic valve repair . IMPRESSION: 1. Interstitial and airspace opacities in bilateral mid and lower lung zones which could represent co ngestive heart failure related mild pulmonary edema or pneumonia. 2. Cardiomegaly. Reviewed, dictated and finalized at location A. IMPRESSION: 1. Interstitial and airspace opacities in bilateral mid and lower lung zones wh ich could represent congestive heart failure related mild pulmonary edema or pn [place]. 2. Cardiomegaly.
--- OUTSIDE RECORDS SUMMARY | 2024-12-13 08:47 | XMS_ITS | Encounter Summary ---
Author Organization [facility] Healthcare Address [address] [place] [address] Care Team Providers Care Pipe Welder Name Role Phone Barry Ralph MD Primary Care Provider [phone] Barry Ralph MD Primary Care Provider [phone] Rosalee Crowder MANUFACTURING DIRECTOR Unavailable Rehan Sheth MD Unavailable Sangita Moore RN Unavailable Encounter Details Date Type Department Care Team (Late st Contact Info) Description 02/26/2024 Telephone [facility] [address] [place] [address] Aleksander Shankar MD [address] [place] [address] Social History Tobacco Use Types Packs/Day Years Used Date Smoking Tobacco: Never Smokeless Tobacco: Never [facility] Utilities Answer Date Recorded In the [...] often do you attend chur ch or roman catholic services? More than 4 times per year 01/01/2024 Do you belong to any clubs o r organizations such as latter day groups, unions, fraternal or athletic groups, or [...] staff should administer the PHQ-9) 0 05/13/2021 [facility] Occupat ional Health - Occupational Stress [...] in a custodial (including now)? No 01/01/2024 Personal Safety Answer Date Recorded Have you ever been in or are you currently in a harmful physical or emotional relationship or is someone making you feel afraid or unsafe? 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 Author CCM Chronic Pain Care Plan Chronic Care Management Improving( 10:49 AM MALT HOUSE SUPERVISOR) No Nenita Santiago, RN Note: Problem: Chronic [...] to 92 09/12/2024 09/12/2024 09/19/2024 3:07 AM MALT HOUSE SUPERVISOR documented as of this encounter Care Teams Pipe Welder Relationship Specialty Start Date End Date Barry Ralph MD PCP - General Family Practice 10/20/22 05/20/24 Barry Ralph MD PCP - General Family Practice 05/22/24 Rosalee Crowder, [facility] [address] [facility] ([facility] [phone] [place] [address] [employer]OP Outpatient Nozzle And Sleeve Worker 05/22/24 06/19/24 Rehan Sheth MD [address] [facility] [address] [place] [address] Consulting Physician Cardiology 09/09/24 Sangita Moore, RN [address] [facility] [address] [place] [address] SHOP Outpatient Nozzle And Sleeve Worker 09/15/24 10/13/24 documented as of this encounter
--- OUTSIDE RECORDS SUMMARY | 2024-12-13 08:47 | XMS_ITS | Clinical Summary ---
Author Organization [facility] Address [address] [place] [address] Care Team Providers Care Insurance Claim Representative Name Role Phone Barry Ralph MD Primary Care Provider [phone] Rehan Sheth MD Unavailable [phone] Allergies No known active allergies Medications albuterol HFA (PROVENTIL HFA,VENTOLIN HFA,PROAIR HFA) 90 mcg/actuation inhaler Inhale 2 puffs as needed for shortness of breath 09/17/19 15 Active lancets (OneTouch Delica Plus Lancet) 30 gauge miscIndications:Typ e 2 diabetes mellitus with hyperosmolarity without coma, without long-term current use of insulin (HCC) Use to check blood sugar 3x daily 300 each 2 02/01/20 22 Active blood glucose diagnostic (True Metrix Glucose Test Strip) stripIndications:Ty pe 2 diabetes mellitus with hyperosmolarity without coma, without long-term current use of insulin (HCC) TEST BLOOD SUGAR EVERY DAY 100 strip 3 05/12/20 22 Active PARoxetine (PAXIL) 20 mg tablet Take [...] 30 tablet 3 05/22/20 24 025 Active carvediloL (COREG) 25 mg tablet TAKE 1 TABLET BY MOUTH TWICE DAILY WITH MEALS 200 tablet 2 07/14/20 24 Active apixaban (ELIQUIS) 5 mg tabletIndications:a trial fibrillation Take 1 tablet (5 mg total) by mouth 2 (two) times a day PLEASE RESUME THIS MEDICATION TOMORROW (05/22/2024) 56 tablet 09/09/19 25 Active potassium chloride ER 20 mEq CR tablet Take 1 tablet (20 mEq total) by mouth daily 09/18/19 25 Active busPIRone (BUSPAR) 5 mg tablet Take 1 tablet (5 mg total) by mouth 2 (two) times a day 10/13/19 25 Active melatonin 5 mg tablet Take 1 tablet (5 mg total) by mouth nightly at bedtime. 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 -s/p Successful PCI to [...] Plan (05/20/2024 11:34 AM CDT): Went to [facility] 05/17 for SOB, new 2L O2 requirement - OSH workup: Trp 1.95>5.1>10, proBNP 6800, CXR w/ mild interstitial edema - OSH [facility] 05/19 w/ L main widely patent, LAD proximal body 80% stenosis, LAD stent w/ moderate ISR, L cx w/ 95% stenosis in proximal body, OM branches w/ mild disease, RCA is BARREL MAKER in mid body w/ L to R collaterals - cath films uploaded - OSH TTE reportedly w/ EF 50%, AV prosthesis w/o abnormal gradients - trop here 7,5912, repeat pending - currently denies chest pain or pressure, sob improving - PCI today - continue heparin drip - continue asa, coreg, atorvastatin 80mg - telemetry Assessment & Plan (05/20/2024 1:02 AM CDT): Went to [facility] 05/17 for SOB, new 2L O2 requirement - OSH workup: Trp 1.95>5.1>10, proBNP 6800, CXR w/ mild interstitial edema - OSH C 05/19 w/ L main widely patent, LAD proximal body 80% stenosis, LAD stent w/ moderate ISR, L cx w/ 95% stenosis in proximal body, OM branches w/ mild disease, RCA is BARREL MAKER in mid body w/ L to R [...] lipid panel Acute respiratory failure with hypoxia Assessment & Plan (05/21/2024 10:58 AM CDT): P/t [facility] 05/17 for SOB, on 3.5L [...] & Plan (05/20/2024 11:50 AM CDT): P/t [facility] 05/17 for SOB, on 3.5L [...] & Plan (05/20/2024 1:00 AM CDT): P/t [facility] 05/17 for SOB, on 2L [...] salt diet Acute on chronic heart failure 05/20/2024 Assessment & Plan (05/21/2024 10:56 AM CDT): [...] benefi Assessment & Plan (07/04/2024 1:02 PM STATISTICAL DEVELOPER): He may just be symptomatic from his [...] & Plan (03/17/2024 1:48 PM CDT): Manager Applied stenosis and 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 Still [...] stenosis. Assessment & Plan (07/04/2024 1:03 PM STATISTICAL DEVELOPER): Failed LMBB. 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 Sheth helps [...] warfarin Elevated ferritin 07/17/2017 Systolic heart failure 07/17/2017 Assessment & Plan (02/11/2021 11:51 AM [...] quiescent Assessment & Plan (09/04/2018 10:33 AM STATISTICAL DEVELOPER): COPD is unchanged. COPD information handout given. [...] to PT - wants to go to [facility]. Trial robaxin. Flexeril on med list [...] no Assessment & Plan (10/01/2019 10:35 AM STATISTICAL DEVELOPER): S2 makes a wonderfully crisp snap w/o any regurge Gastroesophageal reflux disease 09/17/2014 Tussive syncope 08/25/2014 Syncope and collapse 08/21/2014 Syncope 08/21/2014 Type 2 diabetes mellitus 07/10/2014 Overview (05/13/2021): Was on levemir but stopped 2015 then on trulicity so on metformin ALONE We had better control w/ Jardiance -since he has been w/ Dr Stockton [phone] has been on Actose and metformin- Off [...] heart- Assessment & Plan (10/01/2019 10:30 AM STATISTICAL DEVELOPER): His A1C has crept to 7.5% Admits [...] covered Assessment & Plan (09/04/2018 10:42 AM STATISTICAL DEVELOPER): Diabetes is worsening. Continue current treatment regimen. Reminded to bring in blood sugar diary at next visit. Dietary recommendations for ADA diet. Regular aerobic exercise. Discussed foot care. Reminded to get yearly retinal exam. Diabetes will be reassessed in 3 months. Given his financial concerns my advice is to use food as [employer] Obesity with body mass index 30 or greater 07/09 Generalized anxiety disorder 07/09/2014 Assessment & Plan (10/01/2019 10:32 AM STATISTICAL DEVELOPER): He gets along nicely w/ a low [...] A virus 07/27/2017 02/22/2018 Paroxysmal atrial fibrillation 07/02/2017 09/04/2018 Overview (02/22/2018): Was on NOAC [...] Encounters Date Type Department Care Team Description 12/04/2024 Telephone [facility] Cardiology [address] [facility] 8th [place] [address] [place] [address] Rehan Sheth MD med list fax 11/11/2024 Telephone [facility] Cardiology [address] [facility] 8th [place] [address] [place] [address] Rehan Sheth MD 11/07/2024 10:15 AM CDT Office Visit [facility] Neurosurgery [address] [facility] Medical Office [address] [place] [phone] Clayton Robertson DO Spinal stenosis of lumbar region with neurogenic claudication 11/05/2024 2:00 PM CDT Office Visit [facility] Cardiology [address] [place] [address] 8th [place] [address] [place] [phone] Rehan Sheth MD 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 (Primary Dx); Paroxysmal atrial fibrillation (HCC); Chronic heart failure with preserved ejection fraction (HCC) 11/05/2024 Telephone [facility] Cardiology [address] [place] [address] 8th [place] [address] [place] [address] Rehan Sheth MD 10/14/2024 SHOP/CHAP Subsequent Outreach [facility] OP CASE MANAGEMENT [address] [place] [address] Sangita Moore, RN 10/10/2024 SHOP/CHAP Subsequent Outreach [facility] OP CASE MANAGEMENT [address] [place] [address] Sangita Moore, RN 10/08/2024 Documentation [facility] [address] [place] [address] Yvonne Tanner RN 10/08/2024 SHOP/CHAP Subsequent Outreach [facility] OP CASE MANAGEMENT [address] [place] [address] Sangita Moore, RN 10/07/2024 Telephone [facility] Cardiology [address] [place] [address] 8th [place] [address] [place] [phone] Rehan Sheth MD shortness of breath/anxiety 10/07/2024 SHOP/CHAP Subsequent Outreach [facility] OP CASE MANAGEMENT [address] [place] [address] Sangita Moore, RN 10/06/2024 2:18 PM STATISTICAL DEVELOPER - 10/06/2024 7:30 PM STATISTICAL DEVELOPER Emergency [facility] Emergency Department [address] [place] [address] Aneta Castellanos MD Altered mental status, unspecified altered mental status type (Primary Dx) Discharge Disposition: Discharge to home or self care 10/06/2024 SHOP/CHAP Subsequent Outreach [facility] OP CASE MANAGEMENT [address] [place] [address] Sangita Moore RN 10/06/2024 Results Follow-Up [facility] Cardiology [address] [place] [address] Advanced Medicine 8th [place] [address] [place] [address] Amanda Chatman RN 10/06/2024 Telephone [facility] Cardiology [facility] 8th [place] [address] [place] [address] Rehan Sheth MD [facility] 10/03/2024 10:45 AM [facility] - 10/03/2024 12:00 PM STATISTICAL DEVELOPER Surgery [facility] [address] [place] [address] Nigel Holman MD Right Left Heart Catheterization with Coronary Angiography with or without Left Ventriculography [id number] 10/03/2024 7:50 AM STATISTICAL DEVELOPER - 10/03/2024 5:48 PM STATISTICAL DEVELOPER Hospital Encounter [facility] [address] [place] [phone] Nigel Holman MD Chest pain, unspecified type (Primary Dx); Chronic systolic heart failure (HCC); 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; Acute on chronic heart failure, unspecified heart failure type (HCC); Paroxysmal atrial fibrillation (HCC); History of aortic valve replacement Discharge Disposition: Discharge to home or self care 09/30/2024 SHOP/CHAP Subsequent Outreach [facility] OP CASE MANAGEMENT [address] [place] [address] Sangita Moore RN 09/26/2024 SHOP/CHAP Subsequent Outreach [facility] OP CASE MANAGEMENT 1 [place] [address] Sangita Moore, RN 09/25/2024 Orders Only [facility] [address] [place] [address] Advanced [facility] 8th [place] [address] [place] [address] Naila Cortez RN High risk medications (not anticoagulants) long-term use (Primary Dx) 09/25/2024 Telephone [facility] Cardiology [address] [place] [address] [place] [address] [place] [address] Rehan Sheth MD 09/24/2024 7:40 PM STATISTICAL DEVELOPER Lab [facility] Advanced [facility] ([facility]) [address] [place], [place] [phone] Chronic heart failure with preserved ejection fraction (HCC) 09/24/2024 3:15 PM STATISTICAL DEVELOPER Office Visit [facility] Cardiology [address] [place] [address] [place] [address] Rehan Sheth MD Chronic heart failure with preserved ejection fraction (HCC) (Primary Dx); History of aortic valve replacement; Benign essential hypertension; Paroxysmal atrial fibrillation (HCC) 09/24/[address] [address] Rehan Sheth MD cardiac cath 09/23/2024 SHOP/CHAP Subsequent Outreach [facility] CASE MANAGEMENT [address] [place] [address] Sangita Moore, RN 09/17/2024 SHOP/CHAP Subsequent Outreach [facility] OP CASE MANAGEMENT 1 [place] [address] Sangita Moore, RN 09/15/2024 SHOP/CHAP Initial Outreach [facility] OP CASE MANAGEMENT [address] [place] [address] Sangita Moore, RN 09/15/2024 Telephone [facility] Card[facility] [address] [facility] Advanced [facility] 8th [place] [address] [place] [address] Rehan Sheth MD f/u orders 09/15/2024 SHOP/CHAP Initial Eligibility Review [facility] OP CASE MANAGEMENT [address] [place] [address] Sangita Moore RN 09/11/2024 12:49 PM STATISTICAL DEVELOPER - 09/14/2024 12:22 PM STATISTICAL DEVELOPER Hospital Encounter [facility] [address] [place] [address] Joseph Lucas MD [place], MD Melissa King, Dalila Jean MD Chest pain, unspecified type (Primary Dx) Discharge Disposition: Discharge to home or self care from Last 3 Months Immunizations Immunization Administration [...] 03/19/2016 Surgical History Surgery Date Site/Laterality Comments AK LASER VAPORIZATION OF PROSTATE FOR URINE FLOW Laser Vaporization With Transurethral Resection Of Prostate - (Added by TW Conv) AK RPLCMT PROST AORTIC VALVE OPEN XCP HOMOGRF/STENT Aortic Valve Replacement - (Added by TW Conv) BIOPSY DEEP BONE 12/21/2023 N/A CARDIAC CATHETERIZATION 10/03/2024 N/A Procedure: Right Left Heart Catheterization with Coronary Angiography with or without Left Ventriculography [id number]; Surgeon: Nigel Holman MD; Location: [facility] CARDIAC OCCUPATIONAL THERAPY ASSIST; Service: Cardiovascular; Laterality: N/A; Cp, SOB, CAD Cath with PCI [facility] 05/21/[address] Pedroza. On glucatrol, will instruct to hold AM of test On plavix and apixaban. Will instruct pt to take last dose of apixa Medical devices from this surgery are in the Medical Devices section. Medical History Medical History Date Comments Personal history of other di seases of the circulatory system History of hypertension - (A dded by Conv) Personal history of other en docrine, nutritional and metabolic disease History of diabetes mellitus - (Added by TW Conv) Other retention of urine Acute u rinary retention - (Added by TW Conv) Personal history of other di seases of the circulatory system History of aortic valve diso rder - Aortic Valve Disorder (Added by Conv) Low back pain Diabetes mellitus (HCC) [...] Never Smokeless Tobacco: Never Tobacco Cessation:Counseling Given: No [email or web address] Utilities Answer Date Recorded In the past 12 months has e [employer], [employer], oil, or water Differential threatened to shut off services in your [...] How often do you attend chur or buddhist services? More than 4 times [...] Date Recorded PHQ-2 Total Score 0 09/12/2024 [facility] - Occupational Stress Questionnaire Answer Date Recorded [...] a senior care (including now)? No 01/01/2024 Housing Stability Vital [...] were you homeless or living in a senior care (including now)? No 09/15/2024 Personal Safety Answer Date Recorded Have you ever been in or are you currently in a harmful physical or emotional relationship or is someone making you feel afraid or unsafe? Denies 10/06/2024 Sex and Gender Information Value Date Recorded Sex Assigned at Not on file Legal Sex Male 8:23 PM STATISTICAL DEVELOPER Gender Identity Not on file Sexual Orientation Not on file Obstetrics History Last Filed Vital Signs Vital Sign Reading Time Taken Comments Blood Pressure 156/55 11/05/2024 2:02 PM CDT Pulse 56 11/05/2024 2:02 PM CDT Temperature 36.6 C (97.9 F) 10/06/2024 12:33 PM STATISTICAL DEVELOPER Respiratory Rate 10 10/06/2024 6:55 PM STATISTICAL DEVELOPER Oxygen Saturation 97% 11/05/2024 2:02 PM CDT Inhaled Oxygen Concentration - - Weight 97.5 kg (215 lb) 11/07/2024 10:01 AM CDT Height 182.9 cm (6') 11/07/2024 10:01 AM CDT Body Mass Index 29.16 11/07/2024 10:01 AM CDT Plan of Treatment Health Maintenance Due Date [...] Plan Chronic Care Management Improving( 10:49 AM STATISTICAL DEVELOPER) Nenita Sanchez, RN Note: Problem: Chronic Pain Goals: 1. Minimize further functional decline 2. Maximize quality of life 3. Control pain Strategies: - Activity/exercise program recommendation - Conservative stepwise pain medicine strategy with multi-disciplinary approach - Recommend healthy lifestyle strategies and compensatory methods as needed Medical Devices Implanted Type Area Orthopedic Assistant Device Identifier Shelf Expiration Date Model / Serial / Lot Next audience Branden Angio-Seal Vip Bondek-Plus 8fr .038in 70cm Hemostatic Latex Free [id number] - [id number] - [id number] Implanted:Qty : 1 on 05/20/2024 by Papo Rascon MD at [facility] Collagen Right: Common Femoral Artery [employer] Branden 12/10/2024 [id number] / [id number] / [id number] Prosthetic Valve Prosthetic Valve Heart Description:Heart Valve Medtronic Card Vasc Surgery 4.0 X 12mm [place] Pana Rx Coronary Stent [id number] - [id number] - [id number] Implanted:Qty : 1 on 05/20/2024 by Vitor Pedroza MD at [facility] Stent N/A: Circumflex Coronary Artery Medtronic Card Vasc Surgery 01/11/2027 [id number] / [id number] / [id number] Medtronic Card Vasc Surgery 4.0 X 12mm Shar Pana Rx Coronary Stent [id number] - [id number] - [id number] Implanted:Qty : 1 on 05/20/2024 by Vitor Pedroza MD at [facility] Stent Left: Anterior Descending Cornary Artery Medtronic Card Vasc Surgery 11/14/2026 [id number] / [id number] / [id number] Medtronic Card Vasc Surgery 4.0 X 18mm Shar Pana Rx Coronary Stent [id number] - [id number] - [id number] Implanted:Qty : 1 on 10/03/2024 by Nigel Holman MD at [facility] Stent Left: Anterior Descending Cornary Artery Medtronic Card Vasc Surgery 04/14/2027 [id number] / [id number] / [id number] Description:Adrian TO lad Procedures Procedure Name Priority Date/Time Associated Diagnosis Comments URINALYSIS, MICROSCOPIC ONLY STAT 10/06/2024 5:51 PM STATISTICAL DEVELOPER URINALYSIS AND REFLEX TO MICROSCOPIC STAT 10/06/2024 5:51 PM STATISTICAL DEVELOPER COMPREHENSIVE METABOLIC PANEL Routine 10/06/2024 3:59 PM STATISTICAL DEVELOPER EGFR Routine 10/06/2024 3:59 PM STATISTICAL DEVELOPER VITAMIN B12 Routine 10/06/2024 3:59 PM STATISTICAL DEVELOPER TSH Routine 10/06/2024 3:59 PM STATISTICAL DEVELOPER CBC WITHOUT DIFFERENTIAL Routine 10/06/2024 3:59 PM STATISTICAL DEVELOPER RESPIRATORY PATHOGEN PANEL STAT 10/06/2024 3:[address] HEAD WO CONTRAST ED 10/06/2024 3 :37 PM STATISTICAL DEVELOPER XR CHEST PA LATERAL 2 VIEWS ED 10/06/2024 3:30 PM STATISTICAL DEVELOPER ECG 12-LEAD STAT 10/06/2024 1:07 PM STATISTICAL DEVELOPER POCT GLUCOSE DEVICE Routine 10/06/2024 1 2:48 PM STATISTICAL DEVELOPER EGFR Routine 10/03/2024 4:00 PM STATISTICAL DEVELOPER DIFFERENTIAL AUTO Routine 10/03/2024 4:0 0 PM STATISTICAL DEVELOPER CBC WITH AUTO DIFFERENTIAL Routine 10/03/2024 4:00 PM STATISTICAL DEVELOPER BASIC METABOLIC PANEL Routine 10/03/2024 4:00 PM STATISTICAL DEVELOPER POCT ACTIVATED CLOTTING TIME, LOW RANGE Routine 10/03/2024 2:14 PM STATISTICAL DEVELOPER RIGHT AND LEFT HEART CATHETERIZATION Routine 10/03/2024 12:42 PM STATISTICAL DEVELOPER Chronic systolic heart failure (HCC) 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 Acute on chronic heart failure, unspecified heart failure type (HCC) Paroxysmal atrial fibrillation (HCC) History of aortic valve replacement POCT ACTIVATED CLOTTING TIME, LOW RANGE Routine 10/03/2024 12:42 PM STATISTICAL DEVELOPER TYPE AND SCREEN Timed 10/03/2024 12:20 PM STATISTICAL DEVELOPER POCT ACTIVATED CLOTTING TIME, LOW RANGE Routine 10/03/2024 12:06 PM STATISTICAL DEVELOPER POCT OXYHEMOGLOBIN - DEVICE Routine 10/03/2024 11:47 AM STATISTICAL DEVELOPER POCT OXYHEMOGLOBIN - DEVICE Routine 10/03/2024 11:45 AM STATISTICAL DEVELOPER CBC WITHOUT DIFFERENTIAL Routine 10/03/2024 11:45 AM STATISTICAL DEVELOPER POCT OXYHEMOGLOBIN - DEVICE Routine 10/03/2024 11:44 AM STATISTICAL DEVELOPER POCT GLUCOSE DEVICE Routine 10/03/2024 8 :45 AM STATISTICAL DEVELOPER BASIC METABOLIC PANEL Routine 09/29/2024 9:42 AM STATISTICAL DEVELOPER High risk medications (not anticoagulants) long-term use EGFR Routine 09/24/2024 5:03 PM STATISTICAL DEVELOPER Chronic heart failure with preserved ejection fraction (HCC) DIFFERENTIAL AUTO Routine 09/24/2024 5:0 3 PM STATISTICAL DEVELOPER Chronic heart failure with preserved ejection fraction (HCC) BASIC METABOLIC PANEL Routine 09/24/2024 5:03 PM STATISTICAL DEVELOPER Chronic heart failure with preserved ejection fraction (HCC) PRO B-TYPE NATRIURETIC PEPTIDE Routine 09/24/2024 5:03 PM STATISTICAL DEVELOPER Chronic heart failure with preserved ejection fraction (HCC) CBC WITH AUTO DIFFERENTIAL Routine 09/24/2024 5:03 PM STATISTICAL DEVELOPER Chronic heart failure with preserved ejection fraction (HCC) ECG 12-LEAD Routine 09/24/2024 4:01 PM STATISTICAL DEVELOPER History of aortic valve replacement EGFR STAT 09/14/2024 8:23 AM STATISTICAL DEVELOPER BASIC METABOLIC PANEL STAT 09/14/2024 8:23 AM STATISTICAL DEVELOPER HEMOGLOBIN A1C Routine 06/07/2024 8:38 AM CDT LIPID PANEL Routine 06/07/2024 8:38 AM CDT DIABETES FOOT EXAM Routine 11/05/2020 DIABETES EYE EXAM Routine 05/05/2019 from Last 3 Months or Most Recently Relevant to Health Maintenance Results * (ABNORMAL) Urinalysis reflex to microscopic (10/06/2024 5:51 PM STATISTICAL DEVELOPER) Color, ur Straw Yellow Clarity, ur Clear Clear [facility] Specific gravity, ur 1.010 1.003 - 1.030 [facility] pH, urine 6.0 [facility] Comment: Interpretive Data U rine pH is affected by diet, medications, systemic acid-base disturbances, and renal tubular function. pH may affect urinary stone formation. For example, urine pH below 6.0 may help reduce the tendency for calcium phosphate stones and pH greater than 6.0 may reduce the tendency for uric acid stone formation. Source: [facility] [employer] Current Interpretive Data was last revised on 2017 Protein, ur ql Negative Negative [facility] Glucose, ur ql Negative Negative [facility] Ketones, ur Negative Negative [facility] Bilirubin, ur Negative Negative [facility] Blood, ur Negative Negative [facility] Urobilinogen, ur <2.0 <2.0 mg/dL [facility] Nitrite, ur Negative Negative [facility] Leukocyte esterase, ur Trace(A) Negative [facility] UA reflex comment Reflex to microscopic UA will be performed. [facility] Urine 10/06/2024 5:51 PM STATISTICAL DEVELOPER 10/06/2024 5:58 PM STATISTICAL DEVELOPER us Aneta Castellanos MD LAB URINE ORDERABLES Final R esult [facility] Department [place] [address] * (ABNORMAL) Urinalysis, microscopic only (10/06/2024 5:51 PM STATISTICAL DEVELOPER) WBC, ur 0-5 0 - 5 /HPF RBC, ur 0-2 0 - 2 /HPF [facility] Epithelial cells, squamous, ur 1-5 0 - 5 /HPF [facility] Epithelial cells, transitional, ur 1-5 0 - 0 /HPF [facility] Bacteria, ur Trace(A) [facility] Mucous, ur Present(A) [facility] Hyaline casts, ur 6-10 0 - 10 /LPF [facility] Urine 10/06/2024 5:51 PM STATISTICAL DEVELOPER 10/06/2024 5:58 PM STATISTICAL DEVELOPER Aneta Castellanos MD LAB URINE ORDERABLES Final R esult [facility] Department [place] [address] * eGFR (10/06/2024 3:59 PM STATISTICAL DEVELOPER) eGFR 64 >=60 mL/min/1. 73 m2 Comment: [...] last reviewed 2021. Blood 10/06/2024 3:59 PM STATISTICAL DEVELOPER 10/06/2024 4:26 PM STATISTICAL DEVELOPER Aneta Castellanos MD LAB BLOOD ORDERABLES Final R esult [facility] Department [place] [address] * Respiratory pathogen panel Nasopharyngeal (10/06/2024 3:59 PM STATISTICAL DEVELOPER) Pathologist [facility] Influenza A RNA Not Detected Not Detected Influenza B RNA Not Detected Not Detected [facility] RSV RNA Not Detected Not Detected [facility] COVID-19 RNA Not Detected Not Detected [facility] Coronavirus 229E RNA Not Detected Not Detected [facility] Coronavirus HKU1 RNA Not Detected Not Detected [facility] Coronavirus NL63 RNA Not Detected Not Detected [facility] Coronavirus OC43 RNA Not Detected Not Detected [facility] Adenovirus DNA Not Detected Not Detected [facility] Metapneumovirus RNA Not Detected Not Detected [facility] Rhinovirus/Enterov irus RNA Not Detected Not Detected [facility] Parainfluenza 1 RNA Not Detected Not Detected [facility] Parainfluenza 2 RNA Not Detected Not Detected [facility] Parainfluenza 3 RNA Not Detected Not Detected [facility] Parainfluenza 4 RNA Not Detected Not Detected [facility] B. pertussis DNA Not Detected Not Detected [facility] B. parapertussis DNA Not Detected Not Detected [facility] C. pneumoniae DNA Not Detected Not Detected [facility] M. pneumoniae DNA Not Detected Not Detected [facility] Nasopharyngeal 10/06/2024 3: 59 PM STATISTICAL DEVELOPER 10/06/2024 4:19 PM STATISTICAL DEVELOPER Narrative [facility] - 10/06/2024 6:14 PM STATISTICAL DEVELOPER Is the Patient experiencing symptoms consistent with COVID?->No Surveillance testing for transplant patient?->No Interpretive Data The [employer] FilmArray Respiratory Panel (RP2.1) assay is a [...] assay has FDA clearance for testing of FIREBOAT OPERATOR swabs. The performance of additional specimen types has been assessed by the performing laboratory. The performance characteristics of this assay have been determined by [facility] Molecular Infectious Disease Laboratory. Current interpretive data was last revised on 22. us Oralia Cummings MD LAB MICROBIOLOGY - GENERAL OR DERABLES Final Result [facility] Department of Laboratories [place], [place] [id number] * (ABNORMAL) CBC without differential (10/06/2024 3:59 PM STATISTICAL DEVELOPER) [facility] WBC 6.8 3.8 - 9.9 K/cumm Hgb 11.5(L) 13.0 - 17.5 g/dL [facility] Hct 34.1(L) 38.9 - 50.3 % [facility] Plt 162 150 - 400 K/cumm [facility] MPV 11.4 9.1 - 12.3 fL [facility] RBC 3.72(L) 4.30 - 5.80 M/cumm [facility] MCV 91.7 81.3 - 96.4 fL [facility] MCH 30.9 27.1 - 33.3 pg [facility] MCHC 33.7 32.3 - 35.7 g/dL [facility] RDW CV 14.7 11.1 - 14.9 % [facility] RDW SD 49.6(H) 35.7 - 48.1 fL [facility] NRBC abs 0.00 0.00 - 0.01 K/cumm [facility] Blood 10/06/2024 3:59 PM STATISTICAL DEVELOPER 10/06/2024 4:26 PM STATISTICAL DEVELOPER us Priscilla Sarmiento MD LAB BLOOD ORDERABLES Final R esult Performing Organization Address City/[facility]/ZIP Co de Phone Number [facility] [place] [place] [address] * TSH (10/06/2024 3:59 PM STATISTICAL DEVELOPER) [facility] Thyroid Stimulating Hormone 3.88 0.30 - 4.20 mcIUnit/mL Blood 10/06/2024 3:59 PM STATISTICAL DEVELOPER 10/06/2024 4:09 PM STATISTICAL DEVELOPER us Oralia Cummings MD LAB BLOOD ORDERABLES Final Re sult [facility] [place] [address] * Vitamin B12 (10/06/2024 3:59 PM STATISTICAL DEVELOPER) Vitamin B12 420 230 - 1,250 pg/mL Blood 10/06/2024 3:59 PM STATISTICAL DEVELOPER 10/06/2024 4:09 PM STATISTICAL DEVELOPER Oralia Cummings MD LAB BLOOD ORDERABLES Final Re sult [facility] Department [place] [address] * (ABNORMAL) Comprehensive metabolic panel (10/06/2024 3:59 PM STATISTICAL DEVELOPER) Sodium 143 135 - 145 mmol/L Potassium, pl 4.3 3.3 - 4.9 mmol/L [facility] Chloride 104 97 - 110 mmol/L [facility] CO2 26 22 - 32 mmol/L [facility] Anion gap 13 2 - 15 mmol/L [facility] BUN 26(H) 6 - 25 mg/dL [facility] Creatinine 1.12 0.80 - 1.30 mg/dL [facility] Glucose 94 70 - 199 mg/dL [facility] Comment: Interpretive Data Fasting glucose >/= 126 [...] 2022. Calcium 9.1 8.5 - 10.3 mg/dL [facility] Bilirubin, total 0.4 0.1 - 1.2 mg/dL [facility] Protein, pl 7.1 6.5 - 8.5 g/dL [facility] Albumin 3.9 3.5 - 5.0 g/dL [facility] Alk phos 45 40 - 130 Units/L [facility] ALT 15 7 - 55 Units/L [facility] AST 37 10 - 50 Units/L [facility] Blood 10/06/2024 3:59 PM STATISTICAL DEVELOPER 10/06/2024 4:09 PM STATISTICAL DEVELOPER us Aneta Castellanos MD LAB BLOOD ORDERABLES Final R esult [facility] Department [place] [address] * CT Head WO Contrast (10/06/2024 3:37 PM STATISTICAL DEVELOPER) Anatomical Region Laterality Modality Head and Neck N/A Computed Tomogra phy 10/06/2024 4:29 PM STATISTICAL DEVELOPER Impressions 10/06/2024 4:41 PM STATISTICAL DEVELOPER No acute intracranial hemorrhage, large vessel territory infarction, mass effect, or midline shift. Dictated by: Nikolas Vega M.D. The radiology attending physician has personally reviewed this study, and had reviewed and/or edited this written report and agrees with it. Electronically signed by: Johnny Ballesteros M.D, PHD Narrative 10/06/2024 4:41 PM STATISTICAL DEVELOPER EXAMINATION: CT head without contrast HISTORY: Altered [...] PA Lateral 2 Views (10/06/2024 3:30 PM STATISTICAL DEVELOPER) Anatomical Region Laterality Modality Body, Chest N/A Computed Radiogr aphy 10/06/2024 3:42 PM STATISTICAL DEVELOPER Impressions 10/06/2024 3:49 PM STATISTICAL DEVELOPER Comparison with chest radiograph dated 07/12/2025. Median [...] Luna Perez M.D. Narrative 10/06/2024 3:49 PM STATISTICAL DEVELOPER EXAMINATION: 2 view chest radiograph Procedure Note [...] lt * ECG 12-LEAD (10/06/2024 1:07 PM STATISTICAL DEVELOPER) Narrative [facility] - 10/06/2024 1:07 PM STATISTICAL DEVELOPER Nupur Orozco MD 10/06/2024 1:08 PM ECG 12 lead Date/Time: 10/06/2024 1:07 PM Performed by: Nupur Orozco MD Authorized by: Jaylen Petersen MD Comments: EKG Interpretation Interpreted by ED physician in absence of a policy checker Ventricular rate: 65 bpm Rhythm: sinus with PACs [place]: Normal Intervals: 1st degree av block, wide QRS Other findings: no acute ischemia Interpretation: abnormal EKG, LBBB, ectopy Compared to priors: no priors for comparison Aneta Castellanos MD ECG ORDERABLES Final Result [facility] * POCT glucose (10/06/2024 12:48 PM STATISTICAL DEVELOPER) [facility] Glucose, POC 112 70 - 199 mg/dL Blood 10/06/2024 12:4 8 PM STATISTICAL DEVELOPER 10/06/2024 12:48 PM STATISTICAL DEVELOPER Notinfile Unknown LAB POCT ORDERABLES - DEVICE F inal Result [facility] Department [place] [address] * eGFR (10/03/2024 4:00 PM STATISTICAL DEVELOPER) [facility] eGFR 73 >=60 mL/min/1. 73 m2 Comment: [...] last reviewed 2021. Blood 10/03/2024 4:00 PM STATISTICAL DEVELOPER 10/03/2024 4:23 PM STATISTICAL DEVELOPER us Crescencio Vázquez MD LAB BLOOD ORDERABLES Fi nal Result [facility] Department [place] [address] * Differential, auto (10/03/2024 4:00 PM STATISTICAL DEVELOPER) Neutrophil abs 3.7 1.5 - 6.5 K/cumm Imm gran abs 0.0 0.0 - 0.1 K/cumm [facility] Lymphocyte abs 1.5 0.8 - 3.3 K/cumm [facility] Monocyte abs 0.4 0.2 - 0.8 K/cumm [facility] Eosinophil abs 0.2 0.0 - 0.5 K/cumm [facility] Basophil abs 0.0 0.0 - 0.1 K/cumm [facility] Neutrophil pct 63.5 % [facility] Comment: Interpretive Data Percent cell count reference ranges are not reported, since discordance with absolute values may lead to misinterpretation of CBC data. Current Interpretive Data was last revised on 2017. Imm gran pct 0.3 % [facility] Comment: Interpretive Data Percent cell count reference ranges are not reported, since discordance with absolute values may lead to misinterpretation of CBC data. Current Interpretive Data was last revised on 2017. Lymphocyte pct 26.0 % [facility] Comment: Interpretive Data Percent cell count reference ranges are not reported, since discordance with absolute values may lead to misinterpretation of CBC data. Current Interpretive Data was last revised on 2017. Monocyte pct 7.1 % [facility] Comment: Interpretive Data Percent cell count reference ranges are not reported, since discordance with absolute values may lead to misinterpretation of CBC data. Current Interpretive Data was last revised on 2017. Eosinophil pct 2.6 % [facility] Comment: Interpretive Data Percent cell count reference ranges are not reported, since discordance with absolute values may lead to misinterpretation of CBC data. Current Interpretive Data was last revised on 2017. Basophil pct 0.5 % [facility] Comment: Interpretive Data Percent cell count reference ranges are not reported, since discordance with absolute values may lead to misinterpretation of CBC data. Current Interpretive Data was last revised on 2017. Blood 10/03/2024 4:00 PM STATISTICAL DEVELOPER 10/03/2024 4:18 PM STATISTICAL DEVELOPER us Crescencio Vázquez MD LAB BLOOD ORDERABLES Fi nal Result [facility] Department [place] [address] * (ABNORMAL) CBC with auto differential (10/03/2024 4:00 PM STATISTICAL DEVELOPER) WBC 5.8 3.8 - 9.9 K/cumm Hgb 10.8(L) 13.0 - 17.5 g/dL [facility] Hct 32.5(L) 38.9 - 50.3 % [facility] Plt 143(L) 150 - 400 K/cumm [facility] MPV 11.6 9.1 - 12.3 fL [facility] RBC 3.54(L) 4.30 - 5.80 M/cumm [facility] MCV 91.8 81.3 - 96.4 fL [facility] MCH 30.5 27.1 - 33.3 pg [facility] MCHC 33.2 32.3 - 35.7 g/dL [facility] RDW CV 14.4 11.1 - 14.9 % [facility] RDW SD 48.6(H) 35.7 - 48.1 fL [facility] NRBC abs 0.00 0.00 - 0.01 K/cumm [facility] Blood 10/03/2024 4:00 PM STATISTICAL DEVELOPER 10/03/2024 4:18 PM STATISTICAL DEVELOPER us Crescencio Vázquez MD LAB BLOOD ORDERABLES Fi nal Result [facility] Department [place] [address] * Basic metabolic panel (10/03/2024 4:00 PM STATISTICAL DEVELOPER) Sodium 142 135 - 145 mmol/L Potassium, pl 3.8 3.3 - 4.9 mmol/L [facility] Chloride 104 97 - 110 mmol/L [facility] CO2 28 22 - 32 mmol/L [facility] Anion gap 10 2 - 15 mmol/L [facility] BUN 17 6 - 25 mg/dL [facility] Creatinine 1.01 0.80 - 1.30 mg/dL [facility] Glucose 179 70 - 199 mg/dL [facility] Comment: Interpretive Data Fasting glucose >/= 126 [...] 2022. Calcium 8.5 8.5 - 10.3 mg/dL [facility] Blood 10/03/2024 4:00 PM STATISTICAL DEVELOPER 10/03/2024 4:18 PM STATISTICAL DEVELOPER us Crescencio Vázquez MD LAB BLOOD ORDERABLES Fi nal Result Performing Organization Address City/[facility]/ZIP Co de Phone Number [facility] [place] [employer] [place] [address] * (ABNORMAL) POCT Activated clotting time, low range (10/03/2024 2:14 PM STATISTICAL DEVELOPER) ACT 181(H) 123 - 168 sec POC Performer [id number] [facility] POC Device Number [id number] [facility] Blood 10/03/2024 2:14 PM STATISTICAL DEVELOPER 10/03/2024 2:14 PM STATISTICAL DEVELOPER us Nigel Holman MD LAB POCT ORDERABLES - DEVICE Final Result Performing Organization Address [facility] Co de Phone Number [facility] [place] [employer] [place] [address] * RIGHT AND LEFT HEART CATHETERIZATION (10/03/2024 12:42 PM STATISTICAL DEVELOPER) Anatomical Region Laterality Modality X-Ray Angiograph y Impressions 10/03/2024 2:26 PM STATISTICAL DEVELOPER Severe stenosis of the mid LAD with [...] Nigel Holman MD Narrative 10/03/2024 2:26 PM STATISTICAL DEVELOPER Table formatting from the original result was not included. Procedure: CORONARY ANGIOGRAM / RIGHT HEART CATHETERIZATION/ percutaneous coronary intervention Patient: Ashkan Pryor is a 84 y.o. male : 1940 MR number: [id number] Date of Service: 10/03/2024 Rod Straightener: Nigel Holman MD Fellow: Crescencio Vázquez MD [...] obtained. The patient was brought to the medical laboratory manager and placed on the table Bilateral groins [...] performed Right heart catheterization preformed with 7 Lao arrow [place] At the end of the procedure, arteriotomy [...] vasodilators and reimage that showed some slight temple of flow. Upon review it looks as [...] clotting time, low range (10/03/2024 12:42 PM STATISTICAL DEVELOPER) ACT 252(H) 123 - 168 sec POC Performer [id number] [facility] POC Device Number [id number] [facility] Blood 10/03/2024 12:4 2 PM STATISTICAL DEVELOPER 10/03/2024 12:42 PM STATISTICAL DEVELOPER Nigel Holman MD LAB POCT ORDERABLES - DEVICE Final Result Performing Organization Address [facility] Co de Phone Number [facility] [place] [address] * Type and screen (10/03/2024 12:20 PM STATISTICAL DEVELOPER) Pathologist [facility] Lit, indirect Negative ABO Rh A Positive [facility] Blood 10/03/2024 12:2 0 PM STATISTICAL DEVELOPER 10/03/2024 12:39 PM STATISTICAL DEVELOPER Narrative [facility] - 10/03/2024 1:32 PM STATISTICAL DEVELOPER Has the patient had Daratumumab or Isatuximab in the past 6 months?->Unknown Nigel Holman MD LAB BLOOD BANK TEST ORDERABL ES Final Result Performing Organization Address [facility] Co de Phone Number [facility] [place] [employer] [place] [address] * (ABNORMAL) POCT Activated clotting time, low range (10/03/2024 12:06 PM STATISTICAL DEVELOPER) Pathologist [facility] ACT 240(H) 123 - 168 sec POC Performer [id number] [facility] POC Device Number [id number] [facility] Blood 10/03/2024 12:0 6 PM STATISTICAL DEVELOPER 10/03/2024 12:06 PM STATISTICAL DEVELOPER Nigel Holman MD LAB POCT ORDERABLES - DEVICE Final Result Performing Organization Address [facility] Co de Phone Number [facility] [place] [place] [address] * (ABNORMAL) POCT oxyhemoglobin (10/03/2024 11:47 AM STATISTICAL DEVELOPER) Pathologist [facility] ANTICHECKING IRON WORKER Oxyhemoglobin 95.3 >=65.0 % [employer] Hemoglobin 11.7(L) 13.0 - 17.5 g/dL [facility] ANTICHECKING IRON WORKER O2 content 15.5 15.0 - 22.0 Vol % [facility] Anatomic Site aPOC Aorta descend [facility] Blood 10/03/2024 11:4 7 AM STATISTICAL DEVELOPER 10/03/2024 11:47 AM STATISTICAL DEVELOPER Nigel Holman MD LAB POCT ORDERABLES - DEVICE Final Result Performing Organization Address [facility] de Phone Number [facility] [place] [place] [address] * (ABNORMAL) POCT oxyhemoglobin (10/03/2024 11:45 AM STATISTICAL DEVELOPER) [facility] ANTICHECKING IRON WORKER Oxyhemoglobin 67.9 >=65.0 % [employer] WORK[employer] Hemoglobin 11.0(L) 13.0 - 17.5 g/dL [facility] ANTICHECKING IRON WORKER O2 content 10.4(L) 15.0 - 22.0 Vol % [facility] Anatomic Site aPOC Pulm Art main [facility] Blood 10/03/2024 11:4 5 AM STATISTICAL DEVELOPER 10/03/2024 11:45 AM STATISTICAL DEVELOPER Nigel Holman MD LAB POCT ORDERABLES - DEVICE Final Result Performing Organization Address [facility] de Phone Number [facility] [place] [address] * (ABNORMAL) CBC without differential (10/03/2024 11:45 AM STATISTICAL DEVELOPER) [facility] WBC 6.8 3.8 - 9.9 K/cumm Hgb 11.3(L) 13.0 - 17.5 g/dL [facility] Hct 34.2(L) 38.9 - 50.3 % [facility] Plt 142(L) 150 - 400 K/cumm [facility] MPV 11.3 9.1 - 12.3 fL [facility] RBC 3.65(L) 4.30 - 5.80 M/cumm [facility] MCV 93.7 81.3 - 96.4 fL [facility] MCH 31.0 27.1 - 33.3 pg [facility] MCHC 33.0 32.3 - 35.7 g/dL [facility] RDW CV 14.1 11.1 - 14.9 % [facility] RDW SD 49.1(H) 35.7 - 48.1 fL [facility] NRBC abs 0.00 0.00 - 0.01 K/cumm [facility] Blood 10/03/2024 11:4 5 AM STATISTICAL DEVELOPER 10/03/2024 11:51 AM STATISTICAL DEVELOPER Narrative [facility] - 10/03/2024 12:12 PM STATISTICAL DEVELOPER To be drawn after hydration bolus complete us Nigel Holman MD LAB BLOOD ORDERABLES Final R esult Performing Organization Address City/[facility] Co de Phone Number [facility] Department [place] [place] [address] * (ABNORMAL) POCT oxyhemoglobin (10/03/2024 11:44 AM STATISTICAL DEVELOPER) Pathologist [facility] ANTICHECKING IRON WORKER Oxyhemoglobin 69.1 >=65.0 % [employer]ING [employer]ON WORKER Hemoglobin 11.3(L) 13.0 - 17.5 g/dL [facility] ANTICHECKING IRON WORKER O2 content 10.9(L) 15.0 - 22.0 Vol % [facility] Anatomic Site aPOC Pulm Art main [facility] Blood 10/03/2024 11:4 4 AM STATISTICAL DEVELOPER 10/03/2024 11:44 AM STATISTICAL DEVELOPER Nigel Holman MD LAB POCT ORDERABLES - DEVICE Final Result Performing Organization Address [facility] Co de Phone Number [facility] [place] [employer] [place] [address] * POCT glucose (10/03/2024 8:45 AM STATISTICAL DEVELOPER) Glucose, POC 117 70 - 199 mg/dL Blood 10/03/2024 8:45 AM STATISTICAL DEVELOPER 10/03/2024 8:45 AM STATISTICAL DEVELOPER Nigel Holman MD LAB POCT ORDERABLES - DEVICE Final Result Performing Organization Address [facility]/ZIP Co de Phone Number [facility] Department [place] [address] * Basic metabolic panel (09/29/2024 9:42 AM STATISTICAL DEVELOPER) Pathologist [facility] Glucose 99 65 - 99 mg/dL [facility] Comment: Fasting reference interval BUN 23 7 - 25 mg/dL [facility] Creatinine 0.96 0.70 - 1.22 mg/dL [facility] eGFR 77 > OR = 60 mL/min/1.7 3m2 [facility] BUN/creat ratio SEE NOTE: 6 - 22 (calc) [facility] Comment: Not Reported: BUN and Creatinine are within reference range. Sodium 142 135 - 146 mmol/L [facility] Potassium, pl 4.0 3.5 - 5.3 mmol/L [facility] Chloride 103 98 - 110 mmol/L [facility] CO2 32 20 - 32 mmol/L [facility] Calcium 8.9 8.6 - 10.3 mg/dL [facility] Blood 09/29/2024 9:42 AM STATISTICAL DEVELOPER 09/29/2024 9:42 AM STATISTICAL DEVELOPER Rehan Sheth MD LAB BLOOD ORDERABLES F inal Result Performing Organization Address City/[facility]/ZIP Co de Phone Number [email or web address] [place] [address] * (ABNORMAL) eGFR (09/24/2024 5:03 PM STATISTICAL DEVELOPER) Pathologist [facility] eGFR 55(L) >=60 mL/min/1. 73 m2 Comment: [...] last reviewed 2021. Blood 09/24/2024 5:03 PM STATISTICAL DEVELOPER 09/24/2024 5:24 PM STATISTICAL DEVELOPER us Rehan Sheth MD LAB BLOOD ORDERABLES F inal Result [facility] Department [place] [address] * Differential, auto (09/24/2024 5:03 PM STATISTICAL DEVELOPER) Neutrophil abs 3.6 1.5 - 6.5 K/cumm Imm gran abs 0.0 0.0 - 0.1 K/cumm [facility] Lymphocyte abs 1.9 0.8 - 3.3 K/cumm [facility] Monocyte abs 0.6 0.2 - 0.8 K/cumm [facility] Eosinophil abs 0.2 0.0 - 0.5 K/cumm [facility] Basophil abs 0.0 0.0 - 0.1 K/cumm [facility] Neutrophil pct 56.5 % [facility] Comment: Interpretive Data Percent cell count reference ranges are not reported, since discordance with absolute values may lead to misinterpretation of CBC data. Current Interpretive Data was last revised on 2017. Imm gran pct 0.6 % [facility] Comment: Interpretive Data Percent cell count reference ranges are not reported, since discordance with absolute values may lead to misinterpretation of CBC data. Current Interpretive Data was last revised on 2017. Lymphocyte pct 30.0 % [facility] Comment: Interpretive Data Percent cell count reference ranges are not reported, since discordance with absolute values may lead to misinterpretation of CBC data. Current Interpretive Data was last revised on 2017. Monocyte pct 9.1 % [facility] Comment: Interpretive Data Percent cell count reference ranges are not reported, since discordance with absolute values may lead to misinterpretation of CBC data. Current Interpretive Data was last revised on 2017. Eosinophil pct 3.3 % [facility] Comment: Interpretive Data Percent cell count reference ranges are not reported, since discordance with absolute values may lead to misinterpretation of CBC data. Current Interpretive Data was last revised on 2017. Basophil pct 0.5 % [facility] Comment: Interpretive Data Percent cell count reference ranges are not reported, since discordance with absolute values may lead to misinterpretation of CBC data. Current Interpretive Data was last revised on 2017. Blood 09/24/2024 5:03 PM STATISTICAL DEVELOPER 09/24/2024 5:24 PM STATISTICAL DEVELOPER us Rehan Sheth MD LAB BLOOD ORDERABLES F inal Result [facility] Department [place] [address] * (ABNORMAL) Pro B-type natriuretic peptide (09/24/2024 5:03 PM STATISTICAL DEVELOPER) NT-proBNP 2,036(H) <=450 pg/mL Comment: Interpretive Comments: [...] Revised Date: 2018. Blood 09/24/2024 5:03 PM STATISTICAL DEVELOPER 09/24/2024 5:24 PM STATISTICAL DEVELOPER Rehan Sheth MD LAB BLOOD ORDERABLES F inal Result [facility] Department [place] [address] * (ABNORMAL) CBC with auto differential (09/24/2024 5:03 PM STATISTICAL DEVELOPER) WBC 6.3 3.8 - 9.9 K/cumm Hgb 11.7(L) 13.0 - 17.5 g/dL [facility] Hct 35.3(L) 38.9 - 50.3 % [facility] Plt 184 150 - 400 K/cumm [facility] MPV 11.3 9.1 - 12.3 fL [facility] RBC 3.76(L) 4.30 - 5.80 M/cumm [facility] MCV 93.9 81.3 - 96.4 fL [facility] MCH 31.1 27.1 - 33.3 pg [facility] MCHC 33.1 32.3 - 35.7 g/dL [facility] RDW CV 14.6 11.1 - 14.9 % [facility] RDW SD 50.4(H) 35.7 - 48.1 fL [facility] NRBC abs 0.00 0.00 - 0.01 K/cumm [facility] Blood 09/24/2024 5:03 PM STATISTICAL DEVELOPER 09/24/2024 5:24 PM STATISTICAL DEVELOPER Rehan Sheth MD LAB BLOOD ORDERABLES F inal Result Performing Organization Address [facility] Co de Phone Number [facility] Department [place] [address] * (ABNORMAL) Basic metabolic panel (09/24/2024 5:03 PM STATISTICAL DEVELOPER) Sodium 145 135 - 145 mmol/L Potassium, pl 3.7 3.3 - 4.9 mmol/L [facility] Chloride 107 97 - 110 mmol/L [facility] CO2 30 22 - 32 mmol/L [facility] Anion gap 8 2 - 15 mmol/L [facility] BUN 31(H) 6 - 25 mg/dL [facility] Creatinine 1.27 0.80 - 1.30 mg/dL [facility] Glucose 89 70 - 199 mg/dL [facility] Comment: Interpretive Data Fasting glucose >/= 126 [...] 2022. Calcium 9.0 8.5 - 10.3 mg/dL [facility] Blood 09/24/2024 5:03 PM STATISTICAL DEVELOPER 09/24/2024 5:24 PM STATISTICAL DEVELOPER Rehan Sheth MD LAB BLOOD ORDERABLES F inal Result [facility] Department [place] [address] * ECG 12 lead (09/24/2024 4:01 PM STATISTICAL DEVELOPER) us Rehan Sheth MD ECG ORDERABLES Edited Result - Final * eGFR (09/14/2024 8:23 AM STATISTICAL DEVELOPER) Pathologist [facility] eGFR 63 >=60 mL/min/1. 73 m2 Comment: [...] last reviewed 2021. Blood 09/14/2024 8:23 AM STATISTICAL DEVELOPER 09/14/2024 8:45 AM STATISTICAL DEVELOPER us Dalila Torres MD LAB BLOOD ORDERABLES Fi nal Result [facility] Department [place] [address] * (ABNORMAL) Basic metabolic panel (09/14/2024 8:23 AM STATISTICAL DEVELOPER) Pathologist [facility] Sodium 140 135 - 145 mmol/L Potassium, pl 4.0 3.3 - 4.9 mmol/L [facility] Chloride 104 97 - 110 mmol/L [facility] CO2 27 22 - 32 mmol/L [facility] Anion gap 9 2 - 15 mmol/L [facility] BUN 28(H) 6 - 25 mg/dL [facility] Creatinine 1.14 0.80 - 1.30 mg/dL [facility] Glucose 108 70 - 199 mg/dL [facility] Comment: Interpretive Data Fasting glucose >/= 126 [...] 2022. Calcium 8.8 8.5 - 10.3 mg/dL [facility] Blood 09/14/2024 8:23 AM STATISTICAL DEVELOPER 09/14/2024 8:45 AM STATISTICAL DEVELOPER us Dalila Torres MD LAB BLOOD ORDERABLES Fi nal Result [facility] Department [place] [address] * (ABNORMAL) Hemoglobin A1c (06/07/2024 8:38 AM CDT) Hgb A1C 6.1(H) 4.0 - 5.6 % Estimated Average Glucose 128 mg/dL [facility] Comment: The ADA recommends reporting an estimated Average Glucose (eAG) with all Hemoglobin A1c results using the equation derived from a study of 507 normal and diabetic adults. Minority populations were underrepresented and children were not included. (Diabetes Care 31:6268-3214, 2008). The eAG is not equivalent to a fasting glucose. Blood 06/07/2024 8:38 AM CDT 06/07/2024 9:07 AM CDT us Joe Hood MD LAB BLOOD ORDER MAITE Final Result [facility] [address] [facility] Department [place] [address] * Lipid panel (06/07/2024 8:38 AM CDT) [...] 3. Charli Fitch et al. SADE Cardiol. 2019December 18;5(5):540-548. doi: [...] BLOOD ORDER MAITE Final Result [facility] [address] [facility] Department [place] [address] * DIABETES FOOT EXAM (11/05/2020) [facility] Diabetic Foot Exam Normal Historical Provider HEALTH MAINTENANCE Final Result * DIABETES EYE EXAM (05/05/2019) Diabetic Eye Exam Normal Historical Provider HEALTH MAINTENANCE Final Result from Last 3 Months or Most Recently Relevant to Health Maintenance Insurance [employer] MEDICARE PPO [facility] MEDICARE ADVANTAGE [facility] MEDICARE ADVANTAGE Advance Directives For more information, please contact: [phone] Documents on File Type Date Recorded Patient Claims Customer Service Representative Expl anation ADVANCE DIRECTIVE 12/27/2023 10:41 PM Jorge Pryor P OWER OF PRIMARY CARE COORDINATOR-MEDICAL ADVANCE DIRECTIVE 12/26/2023 10:38 AM Yazmin Medina POWER OF PRIMARY CARE COORDINATOR-FINANCIAL * Full Code (Latest Code Status on [...] Communication Jorge Pryor Spouse Health Care Agent [email or web address] Yazmin Medina Daughter First Alternate Health Care Agent [email or web address] Insurance Claim Representative Relationship Specialty Start Date End Date Barry Ralph MD PCP - General Family Practice 05/22/24 Rehan Sheth MD [address] [address] Consulting Physician Cardiology 09/09/24
--- OUTSIDE RECORDS SUMMARY | 2024-12-13 08:47 | XMS_ITS | Clinical Summary ---
Author Organization Unknown Care Team Providers Care Form Setter Name Role Phone JACOB COMBS, MIRACLE Unavailable Unavailable ELOY RN, JONATHAN Unavailable Unavailfritz VYAS LPN, MINISTERIO Unavailable Unavailable KENDALL PT, PJ Unavailable Unavailable CARLOS OT, BETO Unavailable Unavailable MARLEN FOOD CRITIC, ALVARO Unavailable Unavailable Payers Payer Name Policy Type Policy Number Effective Date Expira tion Date [id number].[facility] JUANA.GENAAUTH [id number] Problems Condition Name Condition Details Condition Category Status Onset Date Resolution Date Last Treatment Date Treating Clinician Comments HYPERTENSIVE HEART DISEASE WITH HEART FAILURE Active 10-31 00:00: 00 ACUTE ON CHRONIC DIASTOLIC (CONGESTIVE) HEART FAILURE Active 10-18 00:00: 00 NON-ST ELEVATION (NSTEMI) MYOCARDIAL INFARCTION Active 10-18 00:00: 00 OCCLUSION AND STENOSIS OF BILATERAL CAROTID ARTERIES Active 10-18 00:00: 00 PAROXYSMAL ATRIAL FIBRILLATION Active 10-18 00:00: 00 TYPE 2 DIABETES MELLITUS WITHOUT COMPLICATION S Active 10-18 00:00: 00 CHRONIC OBSTRUCTIVE PULMONARY DISEASE, UNSPECIFIED Active 10-18 00:00: 00 ATHSCL HEART DISEASE OF [place] CORONARY ARTERY W/O ANG PCTRS Active 10-18 00:00: 00 NONRHEUMATIC AORTIC VALVE DISORDER, UNSPECIFIED Active 10-18 00:00: 00 PRSNL HX OF TIA (TIA), AND 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 Active 10-18 00:00: 00 PRESENCE OF CORONARY ANGIOPLASTY IMPLANT AND GRAFT Active 10-18 00:00: 00 JAIL (CURRENT) USE OF ANTICOAGULAN TS Active 10-31 00:00: 00 JAIL (CURRENT) USE OF ANTITHROMBOT ICS/ANTIPLAT ELETS Active 10-31 00:00: 00 DISORDER OF ARTERIES AND ARTERIOLES, UNSPECIFIED Active 10-18 00:00: 00 Allergies, Adverse Reactions, Alerts Allergy Name Allergy Type Status Severity Reaction(s) Onset Date Inactive Date Treating Clinician Comments NO KNOWN ALLERGIES Propensity to adverse reactions Active 10-31 12:17: 40 Medications Ordered Medication Name Filled Medication Name Start Date Stop Date Current Medication? Ordering Clinician Indication Dosage Frequency Signature (SIG) Comments Components buspirone 5 mg tablet 2-24 00:00: 00 Yes [id number] ANXIETY 1 tablet 2 TIMES DAILY 1 tablet 2 TIMES DAILY (route: oral) Med Classific ation: Central Nervous System Agents potassium chloride ER 20 mEq tablet,exte nded release 09-29 00:00: 00 Yes [id number] SUPPLEMENT 1 tablet DAILY 1 tablet DAILY (route: oral) Med Classific ation: Electroly te Balance-N utritiona l Products acetaminoph en 325 mg tablet 10-31 00:00: 00 Yes [id number] NEEDED FOR MILD PAIN 2 tablet EVERY 6 HOURS 2 tablet EVERY 6 HOURS (route: oral) Med Classific ation: Analgesic , Anti-infl ammatory or Antipyret ic albuterol sulfate HFA 90 mcg/actuati on aerosol inhaler 10-31 00:00: 00 Yes [id number] NEEDED FOR SOB 1 puff EVERY 4 HOURS 1 puff EVERY 4 HOURS (route: inhalation ) Med Classific ation: Respirato ry Therapy Agents atorvastati n 80 mg tablet 10-31 00:00: 00 Yes [id number] CHOLESTEROL 1 tablet DAILY 1 tablet DAILY (route: oral) Med Classific ation: Cardiovas cular Therapy Agents carvedilol 25 mg tablet 10-31 00:00: 00 Yes [id number] HIGH BLOOD PRESSURE 1 tablet 2 TIMES DAILY 1 tablet 2 TIMES DAILY (route: oral) Med Classific ation: Cardiovas cular Therapy Agents clopidogrel 75 mg tablet 10-31 00:00: 00 Yes [id number] BLOOD THINNER 1 tablet DAILY 1 tablet DAILY (route: oral) Med Classific ation: Hematolog ical Agents Eliquis 5 mg tablet 10-31 00:00: 00 Yes [id number] BLOOD THINNER 1 tablet 2 TIMES DAILY 1 tablet 2 TIMES DAILY (route: oral) Med Classific ation: Hematolog ical Agents furosemide 40 mg tablet 10-31 00:00: 00 11-07 23:59 :00 No [id number] FLUID OVERLOAD 1 tablet 2 TIMES DAILY 1 tablet 2 TIMES DAILY (route: oral) Med Classific ation: Cardiovas cular Therapy Agents losartan 25 mg tablet 10-31 00:00: 00 Yes [id number] HIGH BLOOD PRESSURE 1 tablet DAILY 1 tablet DAILY (route: oral) Med Classific ation: Cardiovas cular Therapy Agents melatonin 5 mg chewable tablet 10-31 00:00: 00 Yes [id number] SLEEP SUPPLEMENT 1 tablet BEDTIME 1 tablet BEDTIME (route: oral) Med Classific ation: Central Nervous System Agents methocarbam ol 500 mg tablet 10-31 00:00: 00 Yes [id number] NEEDED FOR MUSCLE SPASMS 1 tablet 2 TIMES DAILY 1 tablet 2 TIMES DAILY (route: oral) Med Classific ation: Locomotor System paroxetine 20 mg tablet 10-31 00:00: 00 Yes [id number] ANXIETY 1 tablet DAILY 1 tablet DAILY (route: oral) Med Classific ation: Central Nervous System Agents trazodone 50 mg tablet 10-31 00:00: 00 Yes [id number] SLEEP 1 tablet BEDTIME 1 tablet BEDTIME (route: oral) Med Classific ation: Central Nervous System Agents Vital Signs Vital Name Observation Time Observation Value Commen ts Temperature 2024-12-12 08:40:00.000 98.9 [degF] Temperature 2024-12-10 11:44:00.000 97.6 [degF] Temperature 2024-12-05 08:47:00.000 98.6 [degF] Temperature 2024-12-03 15:35:00.000 98.1 [degF] Temperature 2024-12-02 12:05:00.000 96 [degF] Temperature 2024-11-26 15:27:00.000 98.1 [degF] Temperature 2024-11-26 14:53:00.000 98.1 [degF] Temperature 2024-11-24 11:36:00.000 98.7 [degF] Temperature 2024-11-20 13:56:00.000 98.4 [degF] Temperature 2024-11-19 12:28:00.000 98 [degF] Temperature 2024-11-17 13:50:00.000 98.8 [degF] Temperature 2024-11-13 11:24:00.000 98.6 [degF] Temperature 2024-11-11 15:48:00.000 97.6 [degF] Temperature 2024-11-11 09:00:00.000 97.3 [degF] Temperature 2024-11-07 13:08:00.000 98.3 [degF] Temperature 2024-11-04 10:57:00.000 96 [degF] Temperature 2024-10-31 12:27:00.000 98 [degF] BMI (%) 2024-10-31 12:27:00.000 29 kg/m2 Height 2024-10-31 12:27:00.000 72 [in_us] Pulse 2024-12-12 08:40:00.000 66 /min Pulse 2024-12-10 11:44:00.000 61 /min Pulse 2024-12-05 08:47:00.000 73 /min Pulse 2024-12-03 15:35:00.000 78 /min Pulse 2024-12-02 12:05:00.000 63 /min Pulse 2024-11-26 15:27:00.000 61 /min Pulse 2024-11-26 14:53:00.000 61 /min Pulse 2024-11-24 11:36:00.000 70 /min Pulse 2024-11-20 13:56:00.000 65 /min Pulse 2024-11-19 12:28:00.000 60 /min Pulse 2024-11-17 13:50:00.000 66 /min Pulse 2024-11-13 11:24:00.000 60 /min Pulse 2024-11-11 15:48:00.000 63 /min Pulse 2024-11-11 09:02:00.000 72 /min Pulse 2024-11-07 13:08:00.000 60 /min Pulse 2024-11-04 10:57:00.000 60 /min Pulse 2024-10-31 12:27:00.000 63 /min O2 Saturation (%) 2024-12-12 08:40:00.000 96 % O2 Saturation (%) 2024-12-10 11:44:00.000 96 % O2 Saturation (%) 2024-12-05 08:47:00.000 96 % O2 Saturation (%) 2024-12-03 15:35:00.000 98 % O2 Saturation (%) 2024-12-02 12:05:00.000 98 % O2 Saturation (%) 2024-11-26 15:27:00.000 96 % O2 Saturation (%) 2024-11-26 14:54:00.000 96 % O2 Saturation (%) 2024-11-24 11:38:00.000 95 % O2 Saturation (%) 2024-11-20 13:56:00.000 96 % O2 Saturation (%) 2024-11-19 12:29:00.000 96 % O2 Saturation (%) 2024-11-17 13:51:00.000 98 % O2 Saturation (%) 2024-11-13 11:27:00.000 96 % O2 Saturation (%) 2024-11-11 15:50:00.000 96 % O2 Saturation (%) 2024-11-11 09:00:00.000 97 % O2 Saturation (%) 2024-11-07 13:08:00.000 95 % O2 Saturation (%) 2024-11-04 10:57:00.000 95 % O2 Saturation (%) 2024-10-31 12:27:00.000 98 % Respirations 2024-12-12 08:40:00.000 18 /min Respirations 2024-12-10 11:44:00.000 18 /min Respirations 2024-12-05 08:47:00.000 18 /min Respirations 2024-12-03 15:35:00.000 18 /min Respirations 2024-12-02 12:05:00.000 18 /min Respirations 2024-11-26 15:27:00.000 18 /min Respirations 2024-11-26 14:53:00.000 18 /min Respirations 2024-11-24 11:36:00.000 18 /min Respirations 2024-11-20 13:56:00.000 18 /min Respirations 2024-11-19 12:28:00.000 18 /min Respirations 2024-11-17 13:50:00.000 18 /min Respirations 2024-11-13 11:24:00.000 18 /min Respirations 2024-11-11 15:48:00.000 18 /min Respirations 2024-11-11 09:00:00.000 18 /min Respirations 2024-11-07 13:08:00.000 18 /min Respirations 2024-11-04 10:57:00.000 16 /min Respirations 2024-10-31 12:27:00.000 16 /min Weight (lbs) 2024-12-12 08:43:00.000 219 [lb_av] Weight (lbs) 2024-12-10 11:45:00.000 219 [lb_av] Weight (lbs) 2024-12-05 08:47:00.000 219 [lb_av] Weight (lbs) 2024-12-03 15:40:00.000 219 [lb_av] Weight (lbs) 2024-12-02 12:11:00.000 219 [lb_av] Weight (lbs) 2024-11-26 14:57:00.000 228 [lb_av] Weight (lbs) 2024-11-24 11:39:00.000 219 [lb_av] Weight (lbs) 2024-11-20 13:56:00.000 219 [lb_av] Weight (lbs) 2024-11-19 12:29:00.000 219 [lb_av] Weight (lbs) 2024-11-17 13:52:00.000 219 [lb_av] Weight (lbs) 2024-11-13 11:28:00.000 216 [lb_av] Weight (lbs) 2024-11-11 09:03:00.000 220 [lb_av] Weight (lbs) 2024-11-07 13:11:00.000 220 [lb_av] Weight (lbs) 2024-11-04 11:16:00.000 210 [lb_av] Weight (lbs) 2024-10-31 12:27:00.000 220 [lb_av] Systolic Blood Pressure 2024-12-12 08:40:00.000 148 mm [Hg] Systolic Blood Pressure 2024-12-10 11:44:00.000 154 mm [Hg] Systolic Blood Pressure 2024-12-05 08:47:00.000 142 mm [Hg] Systolic Blood Pressure 2024-12-03 15:35:00.000 138 mm [Hg] Systolic Blood Pressure 2024-12-02 12:05:00.000 146 mm [Hg] Systolic Blood Pressure 2024-11-26 15:27:00.000 150 mm [Hg] Systolic Blood Pressure 2024-11-26 14:53:00.000 150 mm [Hg] Systolic Blood Pressure 2024-11-24 11:36:00.000 104 mm [Hg] Systolic Blood Pressure 2024-11-20 13:56:00.000 118 mm [Hg] Systolic Blood Pressure 2024-11-19 12:28:00.000 120 mm [Hg] Systolic Blood Pressure 2024-11-17 13:50:00.000 148 mm [Hg] Systolic Blood Pressure 2024-11-13 11:24:00.000 158 mm [Hg] Systolic Blood Pressure 2024-11-11 15:48:00.000 130 mm [Hg] Systolic Blood Pressure 2024-11-11 09:00:00.000 110 mm [Hg] Systolic Blood Pressure 2024-11-07 13:08:00.000 140 mm [Hg] Systolic Blood Pressure 2024-11-04 10:57:00.000 112 mm [Hg] Systolic Blood Pressure 2024-10-31 12:27:00.000 132 mm [Hg] Diastolic Blood Pressure 2024-12-12 08:40:00.000 68 mm [Hg] Diastolic Blood Pressure 2024-12-10 11:44:00.000 72 mm [Hg] Diastolic Blood Pressure 2024-12-05 08:47:00.000 68 mm [Hg] Diastolic Blood Pressure 2024-12-03 15:35:00.000 84 mm [Hg] Diastolic Blood Pressure 2024-12-02 12:05:00.000 78 mm [Hg] Diastolic Blood Pressure 2024-11-26 15:27:00.000 70 mm [Hg] Diastolic Blood Pressure 2024-11-26 14:53:00.000 70 mm [Hg] Diastolic Blood Pressure 2024-11-24 11:36:00.000 60 mm [Hg] Diastolic Blood Pressure 2024-11-20 13:56:00.000 60 mm [Hg] Diastolic Blood Pressure 2024-11-19 12:28:00.000 58 mm [Hg] Diastolic Blood Pressure 2024-11-17 13:50:00.000 72 mm [Hg] Diastolic Blood Pressure 2024-11-13 11:24:00.000 80 mm [Hg] Diastolic Blood Pressure 2024-11-11 15:48:00.000 60 mm [Hg] Diastolic Blood Pressure 2024-11-11 09:00:00.000 62 mm [Hg] Diastolic Blood Pressure 2024-11-07 13:08:00.000 60 mm [Hg] Diastolic Blood Pressure 2024-11-04 10:57:00.000 68 mm [Hg] Diastolic Blood Pressure 2024-10-31 12:27:00.000 70 mm [Hg] Plan of Treatment Planned Activity Planned Date Details Comments Future Scheduled Test RN TO OBSE RVE, ASSESS, EVALUATE, AND DEVELOP AN INDIVIDUALIZED PLAN OF CARE. AGENCY MAY ACCEPT ORDERS FROM CONSULTING ARTHUR JAMES. RN TO OBSERVE AND ASSESS, BUSINESS JOB TITLES/ABORIGINAL EDUCATION TEACHER TO OBSERVE FOR RISK FOR FALLS AND INSTRUCT IN FALL PREVENTION, HOME SAFETY, MEDICATION MANAGEMENT, INFECTION PREVENTION, AND NUTRITION MANAGEMENT. RN/BUSINESS JOB TITLES/ABORIGINAL EDUCATION TEACHER NURSE MAY PERFORM O2 SATURATION LEVEL ON ADMISSION AND PRN FOR FOR RN TO ASSESS/BUSINESS JOB TITLES TO OBSERVE PATIENT, WITH NOTIFICATION TO THE PHYSICIAN IF SATURATION IS 90% IN THE ABSENCE OF MORE SPECIFIC PARAMETERS FROM THE PHYSICIAN. AGENCY MAY PERFORM A RESUMPTION OF CARE VISIT FOLLOWING ANY HOSPITAL ADMISSION. RN/BUSINESS JOB TITLES/ABORIGINAL EDUCATION TEACHER TO MONITOR CO-MORBID CONDITIONS LISTED ON THE PLAN OF CARE AND ANY NEW CONDITIONS THAT PRESENT THEMSELVES DURING THIS EPISODE TO IDENTIFY CHANGES AND INTERVENE TO MINIMIZE COMPLICATIONS. PATIENT HAS PAST MEDICAL HISTORY OF CAROTID DISEASE BILATERAL, CEREBELLA STROKE, ACUTE, CEREBRAL INFARCTION, AFIB, NSTEMI, CHF, COPD, DMII, . [facility] WILL MONITOR PATIENTFOR SIGNS AND SYMPTOMS OF EXACERBATION OF THESE DIAGNOSES AND WILL NOTIFY PROVIDER OF ANY CONCERNS OR CHANGES THAT ARISE. [code = RN TO OBSERVE, ASSESS, EVALUATE, AND DEVELOP AN INDIVIDUALIZED PLAN OF CARE. AGENCY MAY ACCEPT ORDERS FROM CONSULTING ARTHUR JAMES. RN TO OBSERVE AND ASSESS, BUSINESS JOB TITLES/ABORIGINAL EDUCATION TEACHER TO OBSERVE FOR RISK FOR FALLS AND INSTRUCT IN FALL PREVENTION, HOME SAFETY, MEDICATION MANAGEMENT, INFECTION PREVENTION, AND NUTRITION MANAGEMENT. RN/BUSINESS JOB TITLES/ABORIGINAL EDUCATION TEACHER NURSE MAY PERFORM O2 SATURATION LEVEL ON ADMISSION AND PRN FOR FOR RN TO ASSESS/BUSINESS JOB TITLES TO OBSERVE PATIENT, WITH NOTIFICATION TO THE PHYSICIAN IF SATURATION IS 90% IN THE ABSENCE OF MORE SPECIFIC PARAMETERS FROM THE PHYSICIAN. AGENCY MAY PERFORM A RESUMPTION OF CARE VISIT FOLLOWING ANY HOSPITAL ADMISSION. RN/BUSINESS JOB TITLES/ABORIGINAL EDUCATION TEACHER TO MONITOR CO-MORBID CONDITIONS LISTED ON THE PLAN OF CARE AND ANY NEW CONDITIONS THAT PRESENT THEMSELVES DURING THIS EPISODE TO IDENTIFY CHANGES AND INTERVENE TO MINIMIZE COMPLICATIONS. PATIENT HAS PAST MEDICAL HISTORY OF CAROTID DISEASE BILATERAL, CEREBELLA STROKE, ACUTE, CEREBRAL INFARCTION, AFIB, NSTEMI, CHF, COPD, DMII, . [facility] WILL MONITOR PATIENTFOR SIGNS AND SYMPTOMS OF EXACERBATION OF THESE DIAGNOSES AND WILL NOTIFY PROVIDER OF ANY CONCERNS OR CHANGES THAT ARISE. ] Future Scheduled Test PHYSICAL T HERAPIST TO EVALUATE FOR UNSTEADY GAIT, POOR ENDURANCE [code = PHYSICAL THERAPIST TO EVALUATE FOR UNSTEADY GAIT, POOR ENDURANCE ] Future Scheduled Test OCCUPATION AL THERAPIST TO EVALUATE FOR WEAKNESS [code = OCCUPATIONAL THERAPIST TO EVALUATE FOR WEAKNESS ] Future Scheduled Test MEDICATION MANAGEMENT; RN/BUSINESS JOB TITLES/ABORIGINAL EDUCATION TEACHER TO REVIEW MEDICATIONS FOR INTERACTIONS, EFFECTIVENESS OF DRUG THERAPY, AND SIGNS/SYMPTOMS OF ADVERSE REACTIONS. MAY INSTRUCT AND REINFORCE MEDICATION TEACHING RELATED TO THE USE OF MEDICATIONS, DOSAGE, FREQUENCY, PURPOSE, SIDE EFFECTS, AND TO REPORT COMPLICATIONS. [code = MEDICATION MANAGEMENT; RN/BUSINESS JOB TITLES/ABORIGINAL EDUCATION TEACHER TO REVIEW MEDICATIONS FOR INTERACTIONS, EFFECTIVENESS OF DRUG THERAPY, AND SIGNS/SYMPTOMS OF ADVERSE REACTIONS. MAY INSTRUCT AND REINFORCE MEDICATION TEACHING RELATED TO THE USE OF MEDICATIONS, DOSAGE, FREQUENCY, PURPOSE, SIDE EFFECTS, AND TO REPORT COMPLICATIONS.] Future Scheduled Test ANTICOAGUL ATION MANAGEMENT; RN TO ASSESS AND TEACH, BUSINESS JOB TITLES/ABORIGINAL EDUCATION TEACHER TO OBSERVE/TEACH/MONITOR EFFECTIVENESS OF ANTICOAGULATION THERAPY. RN/BUSINESS JOB TITLES/ABORIGINAL EDUCATION TEACHER TO INSTRUCT ON SIGNS AND SYMPTOMS OF BLEEDING/ADVERSE REACTIONS TO REPORT TO PHYSICIAN. [code = ANTICOAGULATION MANAGEMENT; RN TO ASSESS AND TEACH, BUSINESS JOB TITLES/ABORIGINAL EDUCATION TEACHER TO OBSERVE/TEACH/MONITOR EFFECTIVENESS OF ANTICOAGULATION THERAPY. RN/BUSINESS JOB TITLES/ABORIGINAL EDUCATION TEACHER TO INSTRUCT ON SIGNS AND SYMPTOMS OF BLEEDING/ADVERSE REACTIONS TO REPORT TO PHYSICIAN. ] Future Scheduled Test RESPIRATOR Y SYSTEM MANAGEMENT; RN TO ASSESS AND TEACH, BUSINESS JOB TITLES/ABORIGINAL EDUCATION TEACHER TO OBSERVE AND TEACH RELATED TO ALTERED RESPIRATORY STATUS TO MINIMIZE COMPLICATIONS AND REDUCE HOSPITALIZATION. [code = RESPIRATORY SYSTEM MANAGEMENT; RN TO ASSESS AND TEACH, BUSINESS JOB TITLES/ABORIGINAL EDUCATION TEACHER TO OBSERVE AND TEACH RELATED TO ALTERED RESPIRATORY STATUS TO MINIMIZE COMPLICATIONS AND REDUCE HOSPITALIZATION.] Future Scheduled Test COPD MANAG EMENT; RN TO ASSESS AND TEACH, BUSINESS JOB TITLES/ABORIGINAL EDUCATION TEACHER TO OBSERVE AND TEACH SIGNS/SYMPTOMS OF COPD EXACERBATION AND PROVIDE EARLY INTERVENTIONS TO MINIMIZE RISK OF HOSPITALIZATION. RN/BUSINESS JOB TITLES/ABORIGINAL EDUCATION TEACHER TO INSTRUCT ON SELF-CARE MANAGEMENT INCLUDING BREATHING TECHNIQUES, AIRWAY CLEARANCE, AND PROPER USE OF COPD MEDICATIONS. RN TO ASSESS AND TEACH, BUSINESS JOB TITLES/ABORIGINAL EDUCATION TEACHER TO OBSERVE AND TEACH PATIENT/CAREGIVER ABILITY TO MONITOR AND RECORD VITAL SIGNS INCLUDING PULSE OXIMETRY AND BLOOD PRESSURE. PULSE OXIMETER AND BP MONITOR TO BE PROVIDED IF NEEDED [code = COPD MANAGEMENT; RN TO ASSESS AND TEACH, BUSINESS JOB TITLES/ABORIGINAL EDUCATION TEACHER TO OBSERVE AND TEACH SIGNS/SYMPTOMS OF COPD EXACERBATION AND PROVIDE EARLY INTERVENTIONS TO MINIMIZE RISK OF HOSPITALIZATION. RN/BUSINESS JOB TITLES/ABORIGINAL EDUCATION TEACHER TO INSTRUCT ON SELF-CARE MANAGEMENT INCLUDING BREATHING TECHNIQUES, AIRWAY CLEARANCE, AND PROPER USE OF COPD MEDICATIONS. RN TO ASSESS AND TEACH, BUSINESS JOB TITLES/ABORIGINAL EDUCATION TEACHER TO OBSERVE AND TEACH PATIENT/CAREGIVER ABILITY TO MONITOR AND RECORD VITAL SIGNS INCLUDING PULSE OXIMETRY AND BLOOD PRESSURE. PULSE OXIMETER AND BP MONITOR TO BE PROVIDED IF NEEDED ] Future Scheduled Test FALL REDUC TION MANAGEMENT; RN TO ASSESS AND OBSERVE, BUSINESS JOB TITLES/ABORIGINAL EDUCATION TEACHER TO OBSERVE FALL RISK FACTORS AND EDUCATE PATIENT/CAREGIVER ON STRATEGIES TO MINIMIZE THE RISK OF FALLING. [code = FALL REDUCTION MANAGEMENT; RN TO ASSESS AND OBSERVE, BUSINESS JOB TITLES/ABORIGINAL EDUCATION TEACHER TO OBSERVE FALL RISK FACTORS AND EDUCATE PATIENT/CAREGIVER ON STRATEGIES TO MINIMIZE THE RISK OF FALLING.] Future Scheduled Test DIABETES M ANAGEMENT; RN TO ASSESS AND TEACH, ABORIGINAL EDUCATION TEACHER/BUSINESS JOB TITLES TO OBSERVE AND TEACH INSTRUCTIONS OF DIABETIC CARE TO INCLUDE: DIET DIABETIC, SKIN CARE, SIGNS AND SYMPTOMS OF HYPO/HYPERGLYCEMIA, PROPER ADMINISTRATION OF DIABETIC MEDICATION. RN/ABORIGINAL EDUCATION TEACHER/BUSINESS JOB TITLES TO INSTRUCT ON DIABETIC FOOT CARE AND MONITOR FOR SKIN LESIONS ON LOWER EXTREMITIES. BLOOD GLUCOSE TESTING 4X DAILY FREQ. RN TO ASSESS AND TEACH, ABORIGINAL EDUCATION TEACHER/BUSINESS JOB TITLES TO OBSERVE AND TEACH PATIENT/CAREGIVER ABILITY TO PERFORM AND RECORD BLOOD GLUCOSE TESTING ORDERED AND TO REPORT ABNORMAL FINDINGS TO PHYSICIAN. RN/ABORIGINAL EDUCATION TEACHER/BUSINESS JOB TITLES MAY PERFORM BLOOD GLUCOSE TEST NEEDED. RN/ABORIGINAL EDUCATION TEACHER/BUSINESS JOB TITLES TO REPORT TO PHYSICIAN BLOOD GLUCOSE READINGS GREATER THAN 350 OR LESS THAN 80 RN/ABORIGINAL EDUCATION TEACHER/BUSINESS JOB TITLES TO INSTRUCT PATIENT ON IMPORTANCE OF HGBA1C MONITORING, KIDNEY FUNCTION TEST, EYE AND FOOT EXAMS. [code = DIABETES MANAGEMENT; RN TO ASSESS AND TEACH, ABORIGINAL EDUCATION TEACHER/BUSINESS JOB TITLES TO OBSERVE AND TEACH INSTRUCTIONS OF DIABETIC CARE TO INCLUDE: DIET DIABETIC, SKIN CARE, SIGNS AND SYMPTOMS OF HYPO/HYPERGLYCEMIA, PROPER ADMINISTRATION OF DIABETIC MEDICATION. RN/ABORIGINAL EDUCATION TEACHER/BUSINESS JOB TITLES TO INSTRUCT ON DIABETIC FOOT CARE AND MONITOR FOR SKIN LESIONS ON LOWER EXTREMITIES. BLOOD GLUCOSE TESTING 4X DAILY FREQ. RN TO ASSESS AND TEACH, ABORIGINAL EDUCATION TEACHER/BUSINESS JOB TITLES TO OBSERVE AND TEACH PATIENT/CAREGIVER ABILITY TO PERFORM AND RECORD BLOOD GLUCOSE TESTING ORDERED AND TO REPORT ABNORMAL FINDINGS TO PHYSICIAN. RN/ABORIGINAL EDUCATION TEACHER/BUSINESS JOB TITLES MAY PERFORM BLOOD GLUCOSE TEST NEEDED. RN/ABORIGINAL EDUCATION TEACHER/BUSINESS JOB TITLES TO REPORT TO PHYSICIAN BLOOD GLUCOSE READINGS GREATER THAN 350 OR LESS THAN 80 RN/ABORIGINAL EDUCATION TEACHER/BUSINESS JOB TITLES TO INSTRUCT PATIENT ON IMPORTANCE OF HGBA1C MONITORING, KIDNEY FUNCTION TEST, EYE AND FOOT EXAMS.] Future Scheduled Test PAIN MANAG EMENT; RN TO ASSESS AND TEACH, ABORIGINAL EDUCATION TEACHER/BUSINESS JOB TITLES TO OBSERVE AND TEACH AND PROVIDE EDUCATION ON PAIN MANAGEMENT TECHNIQUES. [code = PAIN MANAGEMENT; RN TO ASSESS AND TEACH, ABORIGINAL EDUCATION TEACHER/BUSINESS JOB TITLES TO OBSERVE AND TEACH AND PROVIDE EDUCATION ON PAIN MANAGEMENT TECHNIQUES.] Future Scheduled Test RISK FOR H OSPITALIZATION; RN TO ASSESS/TEACH, ABORIGINAL EDUCATION TEACHER/BUSINESS JOB TITLES TO OBSERVE/TEACH PATIENT/CAREGIVER ON RISK FOR HOSPITALIZATION/EMERGENCY ROOM VISITS, TEACH SIGNS AND SYMPTOMS THAT PUT PATIENT AT RISK, WHEN TO NOTIFY NURSE/PHYSICIAN OF COMPLICATIONS/DECLINE, AND WHEN TO CALL 911. [code = RISK FOR HOSPITALIZATION; RN TO ASSESS/TEACH, ABORIGINAL EDUCATION TEACHER/BUSINESS JOB TITLES TO OBSERVE/TEACH PATIENT/CAREGIVER ON RISK FOR HOSPITALIZATION/EMERGENCY ROOM VISITS, TEACH SIGNS AND SYMPTOMS THAT PUT PATIENT AT RISK, WHEN TO NOTIFY NURSE/PHYSICIAN OF COMPLICATIONS/DECLINE, AND WHEN TO CALL 911.] Future Scheduled Test CARDIOVASC ULAR SYSTEM; RN TO ASSESS/TEACH, BUSINESS JOB TITLES/ABORIGINAL EDUCATION TEACHER TO OBSERVE/TEACH RELATED TO ALTERED CARDIOVASCULAR STATUS TO MINIMIZE COMPLICATIONS AND REDUCE HOSPITALIZATION. [code = CARDIOVASCULAR SYSTEM; RN TO ASSESS/TEACH, BUSINESS JOB TITLES/ABORIGINAL EDUCATION TEACHER TO OBSERVE/TEACH RELATED TO ALTERED CARDIOVASCULAR STATUS TO MINIMIZE COMPLICATIONS AND REDUCE HOSPITALIZATION.] Future Scheduled Test HYPERTENSI ON MANAGEMENT; RN TO ASSESS AND TEACH, BUSINESS JOB TITLES/ABORIGINAL EDUCATION TEACHER TO OBSERVE AND TEACH WARNING SIGNS AND SYMPTOMS TO AVOID HOSPITALIZATION. [code = HYPERTENSION MANAGEMENT; RN TO ASSESS AND TEACH, BUSINESS JOB TITLES/ABORIGINAL EDUCATION TEACHER TO OBSERVE AND TEACH WARNING SIGNS AND SYMPTOMS TO AVOID HOSPITALIZATION. ] Future Scheduled Test ARRHYTHMIA MANAGEMENT; RN TO ASSESS AND TEACH, BUSINESS JOB TITLES/ABORIGINAL EDUCATION TEACHER TO OBSERVE AND TEACH WARNING SIGNS AND SYMPTOMS TO AVOID HOSPITALIZATION. [code = ARRHYTHMIA MANAGEMENT; RN TO ASSESS AND TEACH, BUSINESS JOB TITLES/ABORIGINAL EDUCATION TEACHER TO OBSERVE AND TEACH WARNING SIGNS AND SYMPTOMS TO AVOID HOSPITALIZATION. ] Future Scheduled Test AGENCY MAY PERFORM A RESUMPTION OF CARE VISIT FOLLOWING ANY HOSPITAL ADMISSION. PT TO EVALUATE, OBSERVE / ASSESS, AND MONITOR, FOOD CRITIC TO OBSERVE AND MONITOR, PROVIDE SKILLED THERAPEUTIC INTERVENTION, ACTIVITY, EDUCATION, AND TRAINING TO ADDRESS; PT/FOOD CRITIC TO PROVIDE GAIT TRAINING FOR IMPROVED MOBILITY AND /OR TO NORMALIZE GAIT PATTERN NEUROMUSCULAR RE-EDUCATION / BALANCE / POSTURAL CONTROL (PT) PT/FOOD CRITIC TO PROVIDE STAIR TRAINING SIT TO/FROM STAND TRANSFERS (PT/FOOD CRITIC) PT TO ASSESS / FOOD CRITIC TO MONITOR FOR AND REPORT EARLY SIGNS OF ANTICOAGULANT TOXICITY TO THE PHYSICIAN AND/OR THE RN CLINICAL CONCRETE BUCKET LOADER FOR PHYSICIAN NOTIFICATION AND TO PROVIDE PATIENT/CAREGIVER EDUCATION ON ANTICOAGULANT THERAPY PT / FOOD CRITIC TO MONITOR FOR HYPO/HYPERGLYCEMIA AND CONDUCT ROUTINE FOOT INSPECTIONS. RECORD PATIENT REPORTED BLOOD SUGAR LEVELS AND NOTIFY PHYSICIAN AND/OR THE RN CLINICAL CONCRETE BUCKET LOADER FOR PHYSICIAN NOTIFICATION IF BLOOD SUGAR LEVELS ARE OUTSIDE ORDERED PARAMETERS. TEACH PATIENT/CAREGIVER ON DAILY FOOT INSPECTIONS PT TO ASSESS / FOOD CRITIC TO MONITOR FOR HEART FAILURE EXACERBATION AND RECORD PATIENT REPORTED WEIGHT, AND NOTIFY THE PHYSICIAN AND/OR THE RN CLINICAL CONCRETE BUCKET LOADER FOR PHYSICIAN NOTIFICATION OF HF EXACERBATION (2LB WEIGHT GAIN IN 1 DAY, 5LBS IN A WEEK OR 5 LBS OVER BASELINE; INCREASED SOB, EDEMA, NEEDING MORE PILLOWS AT NIGHT, CRACKLES IN BASIS OF THE LUNGS OR PMI SHIFT) PT TO ASSESS / FOOD CRITIC TO MONITOR CARDIO/RESPIRATORY SYSTEM; AND NOTIFY THE PHYSICIAN AND/OR THE RN CLINICAL CONCRETE BUCKET LOADER FOR PHYSICIAN NOTIFICATION FOR EARLY SIGNS AND SYMPTOMS OF EXACERBATION OR DETERIORATION. PT/FOOD CRITIC TO IDENTIFY FALL RISK FACTORS; EDUCATE THE PATIENT/CAREGIVER ON WAYS TO REDUCE FALL RISK FACTORS AND ESTABLISH HOME EXERCISE PROGRAM TO MINIMIZE FALL RISK. MAY TEACH THE PATIENT FLOOR RECOVERY WHEN CLINICALLY APPROPRIATE PT / FOOD CRITIC TO EDUCATE ON CVA SELF-MANAGEMENT PT / FOOD CRITIC MAY EDUCATE ON PAIN MANAGEMENT CLINICALLY INDICATED, INCLUDING NON-PHARMACOLOGICAL PAIN REDUCTION TECHNIQUES PT / FOOD CRITIC TO INSTRUCT PATIENT/CAREGIVER ON RISK FOR HOSPITALIZATION/EMERGENCY ROOM VISITS, TEACH SIGNS AND SYMPTOMS THAT PUT PATIENT AT RISK, WHEN TO NOTIFY NURSE/PHYSICIAN OF COMPLICATIONS/DECLINE, AND WHEN TO CALL 911. PT / FOOD CRITIC TO EDUCATE ON HEART FAILURE SELF-MANAGEMENT PT / FOOD CRITIC TO EDUCATE ON HYPERTENSION SELF-MANAGEMENT PT / FOOD CRITIC TO EDUCATE ON ATRIAL FIBRILLATION SELF-MANAGEMENT. PT / FOOD CRITIC TO EDUCATE ON COPD SELF-MANAGEMENT [code = AGENCY MAY PERFORM A RESUMPTION OF CARE VISIT FOLLOWING ANY HOSPITAL ADMISSION. PT TO EVALUATE, OBSERVE / ASSESS, AND MONITOR, FOOD CRITIC TO OBSERVE AND MONITOR, PROVIDE SKILLED THERAPEUTIC INTERVENTION, ACTIVITY, EDUCATION, AND TRAINING TO ADDRESS; PT/FOOD CRITIC TO PROVIDE GAIT TRAINING FOR IMPROVED MOBILITY AND /OR TO NORMALIZE GAIT PATTERN NEUROMUSCULAR RE-EDUCATION / BALANCE / POSTURAL CONTROL (PT) PT/FOOD CRITIC TO PROVIDE STAIR TRAINING SIT TO/FROM STAND TRANSFERS (PT/FOOD CRITIC) PT TO ASSESS / FOOD CRITIC TO MONITOR FOR AND REPORT EARLY SIGNS OF ANTICOAGULANT TOXICITY TO THE PHYSICIAN AND/OR THE RN CLINICAL CONCRETE BUCKET LOADER FOR PHYSICIAN NOTIFICATION AND TO PROVIDE PATIENT/CAREGIVER EDUCATION ON ANTICOAGULANT THERAPY PT / FOOD CRITIC TO MONITOR FOR HYPO/HYPERGLYCEMIA AND CONDUCT ROUTINE FOOT INSPECTIONS. RECORD PATIENT REPORTED BLOOD SUGAR LEVELS AND NOTIFY PHYSICIAN AND/OR THE RN CLINICAL CONCRETE BUCKET LOADER FOR PHYSICIAN NOTIFICATION IF BLOOD SUGAR LEVELS ARE OUTSIDE ORDERED PARAMETERS. TEACH PATIENT/CAREGIVER ON DAILY FOOT INSPECTIONS PT TO ASSESS / FOOD CRITIC TO MONITOR FOR HEART FAILURE EXACERBATION AND RECORD PATIENT REPORTED WEIGHT, AND NOTIFY THE PHYSICIAN AND/OR THE RN CLINICAL CONCRETE BUCKET LOADER FOR PHYSICIAN NOTIFICATION OF HF EXACERBATION (2LB WEIGHT GAIN IN 1 DAY, 5LBS IN A WEEK OR 5 LBS OVER BASELINE; INCREASED SOB, EDEMA, NEEDING MORE PILLOWS AT NIGHT, CRACKLES IN BASIS OF THE LUNGS OR PMI SHIFT) PT TO ASSESS / FOOD CRITIC TO MONITOR CARDIO/RESPIRATORY SYSTEM; AND NOTIFY THE PHYSICIAN AND/OR THE RN CLINICAL CONCRETE BUCKET LOADER FOR PHYSICIAN NOTIFICATION FOR EARLY SIGNS AND SYMPTOMS OF EXACERBATION OR DETERIORATION. PT/FOOD CRITIC TO IDENTIFY FALL RISK FACTORS; EDUCATE THE PATIENT/CAREGIVER ON WAYS TO REDUCE FALL RISK FACTORS AND ESTABLISH HOME EXERCISE PROGRAM TO MINIMIZE FALL RISK. MAY TEACH THE PATIENT FLOOR RECOVERY WHEN CLINICALLY APPROPRIATE PT / FOOD CRITIC TO EDUCATE ON CVA SELF-MANAGEMENT PT / FOOD CRITIC MAY EDUCATE ON PAIN MANAGEMENT CLINICALLY INDICATED, INCLUDING NON-PHARMACOLOGICAL PAIN REDUCTION TECHNIQUES PT / FOOD CRITIC TO INSTRUCT PATIENT/CAREGIVER ON RISK FOR HOSPITALIZATION/EMERGENCY ROOM VISITS, TEACH SIGNS AND SYMPTOMS THAT PUT PATIENT AT RISK, WHEN TO NOTIFY NURSE/PHYSICIAN OF COMPLICATIONS/DECLINE, AND WHEN TO CALL 911. PT / FOOD CRITIC TO EDUCATE ON HEART FAILURE SELF-MANAGEMENT PT / FOOD CRITIC TO EDUCATE ON HYPERTENSION SELF-MANAGEMENT PT / FOOD CRITIC TO EDUCATE ON ATRIAL FIBRILLATION SELF-MANAGEMENT. PT / FOOD CRITIC TO EDUCATE ON COPD SELF-MANAGEMENT ] Goal Patient Goal - I MPROVE GAIT, INCREASED STRENGTH AND ENDURANCE Goal Provider Goal - A PLAN OF CARE WILL BE ESTABLISHED THAT MEETS THE PATIENTS NEEDS. PATIENT WILL DEMONSTRATE OXYGEN SATURATION WITHIN NORMAL LIMITS OR PATIENTS OPTIMAL LEVEL ESTABLISHED BY THE PHYSICIAN THROUGHOUT CARE. CHANGES TO CO-MORBID CONDITIONS AND ANY NEW CONDITIONS WILL BE IDENTIFIED AND REPORTED TO THE PHYSICIAN. Goal Provider Goal - PATIENT WILL BENEFIT FROM PT SERVICES BY 12.29.24 Goal Provider Goal - PATIENT WILL BENEFIT FROM OT SERVICES BY 12.29.24 Goal Provider Goal - PATIENT/CAREGIVER TO VERBALIZE, AND CONSISTENTLY DEMONSTRATE EFFECTIVE, SAFE MANAGEMENT OF MEDICATION INCLUDING KNOWLEDGE OF EFFECTIVENESS, POTENTIAL SIDE EFFECTS AND DRUG REACTIONS AND WHEN TO CONTACT THE APPROPRIATE CARE PROVIDER. PATIENT/CAREGIVER WILL BE ABLE TO VERBALIZE UNDERSTANDING OF MEDICATION REGIMEN AND ACCURATELY TAKE MEDICATIONS PRESCRIBED WITHOUT ADVERSE EFFECTS BY 12.29.24 Goal Provider Goal - INEFFECTIVE ANTICOAGULATION THERAPY WILL BE IDENTIFIED AND PROMPTLY REPORTED TO THE PHYSICIAN. PATIENT / CAREGIVER WILL VERBALIZE UNDERSTANDING OF MEASURES TO MAINTAIN EFFECTIVE ANTICOAGULATION THERAPY BY 12/29/2024. Goal Provider Goal - PATIENT / CAREGIVER WILL VERBALIZE/DEMONSTRATE UNDERSTANDING OF MEASURES TO MANAGE ALTERED RESPIRATORY STATUS BY 12.29.24 Goal Provider Goal - PATIENT / CAREGIVER WILL VERBALIZE/DEMONSTRATE AN ABILITY TO ADHERE TO SELF-MANAGEMENT OF COPD TO MINIMIZE COMPLICATIONS AND AVOID HOSPITALIZATION BY 12.29.24 Goal Provider Goal - PATIENT/CAREGIVER WILL VERBALIZE/DEMONSTRATE UNDERSTANDING OF FALL RISK FACTORS AND IMPLEMENT STRATEGIES TO MINIMIZE FALL RISK. PATIENT/CAREGIVER WILL VERBALIZE/DEMONSTRATE AN ABILITY TO ADHERE TO FALL REDUCTION SELF-MANAGEMENT AND LIFE-STYLE CHANGES BY 12.29.24 Goal Provider Goal - PATIENT / CAREGIVER WILL VERBALIZE / DEMONSTRATE AN ABILITY TO ADHERE TO SELF-MANAGEMENT OF DIABETES MANAGEMENT BY 12.29.24 Goal Provider Goal - PATIENT / CAREGIVER WILL VERBALIZE / DEMONSTRATE UNDERSTANDING OF PAIN CONTROL MEASURES BY 12.29.24 Goal Provider Goal - PATIENT/CAREGIVER WILL VERBALIZE UNDERSTANDING OF SIGNS AND SYMPTOMS THAT PUT THE PATIENT AT RISK FOR HOSPITALIZATION /EMERGENCY ROOM VISITS, WHEN TO NOTIFY NURSE/PHYSICIAN OF COMPLICATIONS/DECLINE AND WHEN TO CALL 911. Goal Provider Goal - PATIENT / CAREGIVER WILL VERBALIZE/DEMONSTRATE UNDERSTANDING OF MEASURES TO MANAGE ALTERED CARDIOVASCULAR STATUS BY 5..25 Goal Provider Goal - PATIENT / CAREGIVER WILL VERBALIZE/DEMONSTRATE AN ABILITY TO ADHERE TO SELF-MANAGEMENT OF HTN TO MINIMIZE COMPLICATIONS AND AVOID HOSPITALIZATION BY 5..25 Goal Provider Goal - PATIENT / CAREGIVER WILL VERBALIZE/DEMONSTRATE AN ABILITY TO ADHERE TO SELF-MANAGEMENT OF HEART ARRHYTHMIA TO MINIMIZE COMPLICATIONS AND AVOID HOSPITALIZATION BY 5..25 Goal Provider Goal - PATIENT WILL DEMONSTRATE PT GOALS MET BY 5.12.25 PT LTG: PATIENT WILL DEMONSTRATE IMPROVED SAFE FUNCTIONAL MOBILITY BY IMPROVING AMBULATION FROM CGA WITH WHEELED WALKER TO INDEPENDENT WITH SINGLE POINT CANE IN 8WEEKS PT LTG: PATIENT WILL DEMONSTRATE REDUCED FALL RISK EVIDENCED BY IMPROVED TINETTI FROM TO IN 8 WEEKS PT LTG: PATIENT WILL DEMONSTRATE IMPROVED ABILITY TO SAFELY NEGOTIATE STAIRS FROM UNABLE TO INDEPENDENT WITH HANDRAILS IN 8 WEEKS PT STG: PATIENT WILL DEMONSTRATE IMPROVED ABILITY TO PERFORM SIT TO/FROM STAND TRANSFERS TO REDUCE THE RISK OF SKIN BREAKDOWN AND REDUCE FALL RISK FROM CGA TO INDEP IN 3WEEKS PT LTG: PATIENT WILL NOT EXHIBIT SIGNS AND SYMPTOMS OF ANTICOAGULANT TOXICITY THROUGHOUT EPISODE OF CARE. PATIENTS BLOOD SUGAR WILL REMAIN WELL CONTROLLED WITH SELF-MANAGEMENT THROUGHOUT EPISODE OF CARE. PT GOAL: PATIENTS HEART FAILURE WILL REMAIN WELL CONTROLLED THROUGHOUT EPISODE OF CARE. PT LTG: PATIENT WILL NOT EXPERIENCE CARDIAC OR RESPIRATORY COMPLICATIONS THROUGHOUT THE EPISODE OF CARE. PT LTG: PATIENT/CAREGIVER WILL DEMONSTRATE ADHERENCE TO FALL REDUCTION SELF-MANAGEMENT AND REDUCING FALL RISK FACTORS TO MINIMIZE FALL RISK BY 5..25 PT LTG: PATIENT WILL BE INDEPENDENT WITH IMPLEMENTATION OF HEP WITHIN 3WEEKS PT LTG: PATIENT/CAREGIVER WILL BE VERBALIZE UNDERSTANDING OF A CVA, SIGNS/SYMPTOMS TO REPORT, WELL SELF-MANAGEMENT AND LIFE-STYLE CHANGES BY 5..25 PT GOAL: PATIENT WILL DEMONSTRATE UNDERSTANDING OF PAIN MANAGEMENT TECHNIQUES EVIDENCED BY REDUCED PAIN BY 5.12.25 PT GOAL: PATIENT/CAREGIVER WILL VERBALIZE UNDERSTANDING OF SIGNS AND SYMPTOMS THAT PUT THE PATIENT AT RISK FOR HOSPITALIZATION /EMERGENCY ROOM VISITS, WHEN TO NOTIFY NURSE/PHYSICIAN OF COMPLICATIONS/DECLINE AND WHEN TO CALL 911. PT LTG: PATIENT/CAREGIVER WILL BE ABLE TO IDENTIFY SIGNS OF EXACERBATION OF HEART FAILURE AND VERBALIZE / DEMONSTRATE HOW TO MANAGE SYMPTOMS AND HOW TO ADHERE TO HEART FAILURE SELF-MANAGEMENT AND LIFE-STYLE CHANGES BY 5.12.25 PT GOAL: PATIENT/CAREGIVER WILL BE ABLE TO IDENTIFY SIGNS OF EXACERBATION OF HYPERTENSION AND WILL VERBALIZE/DEMONSTRATE AN ABILITY TO ADHERE TO HYPERTENSION SELF-MANAGEMENT AND LIFE-STYLE CHANGES BY 5.08.13 PT GOAL: PATIENT/CAREGIVER WILL BE ABLE TO IDENTIFY SIGNS OF ATRIAL FIBRILLATION EXACERBATION AND WILL VERBALIZE/DEMONSTRATE AN ABILITY TO ADHERE TO ATRIAL FIBRILLATION SELF-MANAGEMENT AND LIFE-STYLE CHANGES BY 12.29.24 PT GOAL: THE PATIENT / CAREGIVER WILL DEMONSTRATE ADHERENCE TO COPD SELF-MANAGEMENT BY .08.13 Encounters Start Date/Time End Date/Time Encounter Type Admission Type Attending [facility] Department Encounter ID Discharge Date Discharge Status Discharge Condition Discharge Reason Percent Goals Met 2024-10-31 00:00:00 2024-12-29 00:00:00 Outpatient NEW ADMISSION JONATHAN LYONS [facility] [id number] 23.40
--- OUTSIDE RECORDS SUMMARY | 2024-12-13 08:47 | XMS_ITS | Clinical Summary ---
Author Organization Unknown Care Team Providers Care Verifying Specialist Name Role Phone JACOB COMBS, MIRACLE Unavailable Unavailable ELOY RN, JONATHAN Unavailable Unavailfritz VYAS LPN, MINISTERIO Unavailable Unavailable KENDALL PT, PJ Unavailable Unavailable CARLOS OT, BETO Unavailable Unavailable MARLEN GUIDE TRAVEL, ALVARO Unavailable Unavailable Payers Payer Name Policy Type Policy Number Effective Date Expira tion Date [id number].[id number]H JUANA.GENAAUTH [id number] Problems Condition Name Condition Details Condition Category [...] 10-18 00:00: 00 ATHSCL HEART DISEASE OF [place] CORONARY ARTERY W/O ANG PCTRS Active 10-18 00:00: 00 NONRHEUMATIC AORTIC VALVE DISORDER, UNSPECIFIED Active 10-18 00:00: 00 PRSNL HX OF TIA (TIA), AND 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 Active 10-18 00:00: 00 PRESENCE OF CORONARY ANGIOPLASTY IMPLANT AND GRAFT Active 10-18 00:00: 00 PRISON (CURRENT) USE OF ANTICOAGULAN TS Active 10-31 00:00: 00 PRISON (CURRENT) USE OF ANTITHROMBOT ICS/ANTIPLAT ELETS Active [...] 5 mg tablet 2-24 00:00: 00 Yes [id number] ANXIETY 1 tablet 2 TIMES DAILY 1 tablet 2 TIMES DAILY (route: oral) Med Classific ation: Central Nervous System Agents potassium chloride ER 20 mEq tablet,exte nded release 09-29 00:00: 00 Yes [id number] SUPPLEMENT 1 tablet DAILY 1 tablet DAILY (route: oral) Med Classific ation: Electroly te Balance-N utritiona l Products acetaminoph en 325 mg tablet 10-31 00:00: 00 Yes [id number] NEEDED FOR MILD PAIN 2 tablet EVERY 6 HOURS 2 tablet EVERY 6 HOURS (route: oral) Med Classific ation: Analgesic , Anti-infl ammatory or Antipyret ic albuterol sulfate HFA 90 mcg/actuati on aerosol inhaler 10-31 00:00: 00 Yes [id number] NEEDED FOR SOB 1 puff EVERY 4 HOURS 1 puff EVERY 4 HOURS (route: inhalation ) Med Classific ation: Respirato ry Therapy Agents atorvastati n 80 mg tablet 10-31 00:00: 00 Yes [id number] CHOLESTEROL 1 tablet DAILY 1 tablet DAILY (route: oral) Med Classific ation: Cardiovas cular Therapy Agents carvedilol 25 mg tablet 10-31 00:00: 00 Yes [id number] HIGH BLOOD PRESSURE 1 tablet 2 TIMES DAILY 1 tablet 2 TIMES DAILY (route: oral) Med Classific ation: Cardiovas cular Therapy Agents clopidogrel 75 mg tablet 10-31 00:00: 00 Yes [id number] BLOOD THINNER 1 tablet DAILY 1 tablet DAILY (route: oral) Med Classific ation: Hematolog ical Agents Eliquis 5 mg tablet 10-31 00:00: 00 Yes [id number] BLOOD THINNER 1 tablet 2 TIMES DAILY 1 tablet 2 TIMES DAILY (route: oral) Med Classific ation: Hematolog ical Agents furosemide 40 mg tablet 10-31 00:00: 00 11-07 23:59 :00 No [id number] FLUID OVERLOAD 1 tablet 2 TIMES DAILY 1 tablet 2 TIMES DAILY (route: oral) Med Classific ation: Cardiovas cular Therapy Agents losartan 25 mg tablet 10-31 00:00: 00 Yes [id number] HIGH BLOOD PRESSURE 1 tablet DAILY 1 tablet DAILY (route: oral) Med Classific ation: Cardiovas cular Therapy Agents melatonin 5 mg chewable tablet 10-31 00:00: 00 Yes [id number] SLEEP SUPPLEMENT 1 tablet BEDTIME 1 tablet BEDTIME (route: oral) Med Classific ation: Central Nervous System Agents methocarbam ol 500 mg tablet 10-31 00:00: 00 Yes [id number] NEEDED FOR MUSCLE SPASMS 1 tablet 2 TIMES DAILY 1 tablet 2 TIMES DAILY (route: oral) Med Classific ation: Locomotor System paroxetine 20 mg tablet 10-31 00:00: 00 Yes [id number] ANXIETY 1 tablet DAILY 1 tablet DAILY (route: oral) Med Classific ation: Central Nervous System Agents trazodone 50 mg tablet 10-31 00:00: 00 Yes [id number] SLEEP 1 tablet BEDTIME 1 tablet BEDTIME [...] ARTHUR JAMES. RN TO OBSERVE AND ASSESS, WIDE AREA NETWORK ADMINISTRATOR/BEER COOLER TO OBSERVE FOR RISK FOR FALLS AND INSTRUCT IN FALL PREVENTION, HOME SAFETY, MEDICATION MANAGEMENT, INFECTION PREVENTION, AND NUTRITION MANAGEMENT. RN/WIDE AREA NETWORK ADMINISTRATOR/BEER COOLER NURSE MAY PERFORM O2 SATURATION LEVEL ON ADMISSION AND PRN FOR FOR RN TO ASSESS/WIDE AREA NETWORK ADMINISTRATOR TO OBSERVE PATIENT, WITH NOTIFICATION TO THE PHYSICIAN IF SATURATION IS 90% IN THE ABSENCE OF MORE SPECIFIC PARAMETERS FROM THE PHYSICIAN. AGENCY MAY PERFORM A RESUMPTION OF CARE VISIT FOLLOWING ANY HOSPITAL ADMISSION. RN/WIDE AREA NETWORK ADMINISTRATOR/BEER COOLER TO MONITOR CO-MORBID CONDITIONS LISTED ON THE PLAN OF CARE AND ANY NEW CONDITIONS THAT PRESENT THEMSELVES DURING THIS EPISODE TO IDENTIFY CHANGES AND INTERVENE TO MINIMIZE COMPLICATIONS. PATIENT HAS PAST MEDICAL HISTORY OF CAROTID DISEASE BILATERAL, CEREBELLA STROKE, ACUTE, CEREBRAL INFARCTION, AFIB, NSTEMI, CHF, COPD, DMII, . [facility] WILL MONITOR PATIENTFOR SIGNS AND SYMPTOMS OF EXACERBATION OF THESE DIAGNOSES AND WILL NOTIFY PROVIDER OF ANY CONCERNS OR CHANGES THAT ARISE. [code = RN TO OBSERVE, ASSESS, EVALUATE, AND DEVELOP AN INDIVIDUALIZED PLAN OF CARE. AGENCY MAY ACCEPT ORDERS FROM CONSULTING ARTHUR JAMES. RN TO OBSERVE AND ASSESS, WIDE AREA NETWORK ADMINISTRATOR/BEER COOLER TO OBSERVE FOR RISK FOR FALLS AND INSTRUCT IN FALL PREVENTION, HOME SAFETY, MEDICATION MANAGEMENT, INFECTION PREVENTION, AND NUTRITION MANAGEMENT. RN/WIDE AREA NETWORK ADMINISTRATOR/BEER COOLER NURSE MAY PERFORM O2 SATURATION LEVEL ON ADMISSION AND PRN FOR FOR RN TO ASSESS/WIDE AREA NETWORK ADMINISTRATOR TO OBSERVE PATIENT, WITH NOTIFICATION TO THE PHYSICIAN IF SATURATION IS 90% IN THE ABSENCE OF MORE SPECIFIC PARAMETERS FROM THE PHYSICIAN. AGENCY MAY PERFORM A RESUMPTION OF CARE VISIT FOLLOWING ANY HOSPITAL ADMISSION. RN/WIDE AREA NETWORK ADMINISTRATOR/BEER COOLER TO MONITOR CO-MORBID CONDITIONS LISTED ON THE PLAN OF CARE AND ANY NEW CONDITIONS THAT PRESENT THEMSELVES DURING THIS EPISODE TO IDENTIFY CHANGES AND INTERVENE TO MINIMIZE COMPLICATIONS. PATIENT HAS PAST MEDICAL HISTORY OF CAROTID DISEASE BILATERAL, CEREBELLA STROKE, ACUTE, CEREBRAL INFARCTION, AFIB, NSTEMI, CHF, COPD, DMII, . [facility] WILL MONITOR PATIENTFOR SIGNS AND SYMPTOMS [...] WEAKNESS ] Future Scheduled Test MEDICATION MANAGEMENT; RN/WIDE AREA NETWORK ADMINISTRATOR/BEER COOLER TO REVIEW MEDICATIONS FOR INTERACTIONS, EFFECTIVENESS OF DRUG THERAPY, AND SIGNS/SYMPTOMS OF ADVERSE REACTIONS. MAY INSTRUCT AND REINFORCE MEDICATION TEACHING RELATED TO THE USE OF MEDICATIONS, DOSAGE, FREQUENCY, PURPOSE, SIDE EFFECTS, AND TO REPORT COMPLICATIONS. [code = MEDICATION MANAGEMENT; RN/WIDE AREA NETWORK ADMINISTRATOR/BEER COOLER TO REVIEW MEDICATIONS FOR INTERACTIONS, EFFECTIVENESS OF DRUG THERAPY, AND SIGNS/SYMPTOMS OF ADVERSE REACTIONS. MAY INSTRUCT AND REINFORCE MEDICATION TEACHING RELATED TO THE USE OF MEDICATIONS, DOSAGE, FREQUENCY, PURPOSE, SIDE EFFECTS, AND TO REPORT COMPLICATIONS.] Future Scheduled Test ANTICOAGUL ATION MANAGEMENT; RN TO ASSESS AND TEACH, WIDE AREA NETWORK ADMINISTRATOR/BEER COOLER TO OBSERVE/TEACH/MONITOR EFFECTIVENESS OF ANTICOAGULATION THERAPY. RN/WIDE AREA NETWORK ADMINISTRATOR/BEER COOLER TO INSTRUCT ON SIGNS AND SYMPTOMS OF BLEEDING/ADVERSE REACTIONS TO REPORT TO PHYSICIAN. [code = ANTICOAGULATION MANAGEMENT; RN TO ASSESS AND TEACH, WIDE AREA NETWORK ADMINISTRATOR/BEER COOLER TO OBSERVE/TEACH/MONITOR EFFECTIVENESS OF ANTICOAGULATION THERAPY. RN/WIDE AREA NETWORK ADMINISTRATOR/BEER COOLER TO INSTRUCT ON SIGNS AND SYMPTOMS OF BLEEDING/ADVERSE REACTIONS TO REPORT TO PHYSICIAN. ] Future Scheduled Test RESPIRATOR Y SYSTEM MANAGEMENT; RN TO ASSESS AND TEACH, WIDE AREA NETWORK ADMINISTRATOR/BEER COOLER TO OBSERVE AND TEACH RELATED TO ALTERED RESPIRATORY STATUS TO MINIMIZE COMPLICATIONS AND REDUCE HOSPITALIZATION. [code = RESPIRATORY SYSTEM MANAGEMENT; RN TO ASSESS AND TEACH, WIDE AREA NETWORK ADMINISTRATOR/BEER COOLER TO OBSERVE AND TEACH RELATED TO ALTERED RESPIRATORY STATUS TO MINIMIZE COMPLICATIONS AND REDUCE HOSPITALIZATION.] Future Scheduled Test COPD MANAG EMENT; RN TO ASSESS AND TEACH, WIDE AREA NETWORK ADMINISTRATOR/BEER COOLER TO OBSERVE AND TEACH SIGNS/SYMPTOMS OF COPD EXACERBATION AND PROVIDE EARLY INTERVENTIONS TO MINIMIZE RISK OF HOSPITALIZATION. RN/WIDE AREA NETWORK ADMINISTRATOR/BEER COOLER TO INSTRUCT ON SELF-CARE MANAGEMENT INCLUDING BREATHING TECHNIQUES, AIRWAY CLEARANCE, AND PROPER USE OF COPD MEDICATIONS. RN TO ASSESS AND TEACH, WIDE AREA NETWORK ADMINISTRATOR/BEER COOLER TO OBSERVE AND TEACH PATIENT/CAREGIVER ABILITY TO MONITOR AND RECORD VITAL SIGNS INCLUDING PULSE OXIMETRY AND BLOOD PRESSURE. PULSE OXIMETER AND BP MONITOR TO BE PROVIDED IF NEEDED [code = COPD MANAGEMENT; RN TO ASSESS AND TEACH, WIDE AREA NETWORK ADMINISTRATOR/BEER COOLER TO OBSERVE AND TEACH SIGNS/SYMPTOMS OF COPD EXACERBATION AND PROVIDE EARLY INTERVENTIONS TO MINIMIZE RISK OF HOSPITALIZATION. RN/WIDE AREA NETWORK ADMINISTRATOR/BEER COOLER TO INSTRUCT ON SELF-CARE MANAGEMENT INCLUDING BREATHING TECHNIQUES, AIRWAY CLEARANCE, AND PROPER USE OF COPD MEDICATIONS. RN TO ASSESS AND TEACH, WIDE AREA NETWORK ADMINISTRATOR/BEER COOLER TO OBSERVE AND TEACH PATIENT/CAREGIVER ABILITY TO MONITOR AND RECORD VITAL SIGNS INCLUDING PULSE OXIMETRY AND BLOOD PRESSURE. PULSE OXIMETER AND BP MONITOR TO BE PROVIDED IF NEEDED ] Future Scheduled Test FALL REDUC TION MANAGEMENT; RN TO ASSESS AND OBSERVE, WIDE AREA NETWORK ADMINISTRATOR/BEER COOLER TO OBSERVE FALL RISK FACTORS AND EDUCATE PATIENT/CAREGIVER ON STRATEGIES TO MINIMIZE THE RISK OF FALLING. [code = FALL REDUCTION MANAGEMENT; RN TO ASSESS AND OBSERVE, WIDE AREA NETWORK ADMINISTRATOR/BEER COOLER TO OBSERVE FALL RISK FACTORS AND EDUCATE PATIENT/CAREGIVER ON STRATEGIES TO MINIMIZE THE RISK OF FALLING.] Future Scheduled Test DIABETES M ANAGEMENT; RN TO ASSESS AND TEACH, BEER COOLER/WIDE AREA NETWORK ADMINISTRATOR TO OBSERVE AND TEACH INSTRUCTIONS OF DIABETIC CARE TO INCLUDE: DIET DIABETIC, SKIN CARE, SIGNS AND SYMPTOMS OF HYPO/HYPERGLYCEMIA, PROPER ADMINISTRATION OF DIABETIC MEDICATION. RN/BEER COOLER/WIDE AREA NETWORK ADMINISTRATOR TO INSTRUCT ON DIABETIC FOOT CARE AND MONITOR FOR SKIN LESIONS ON LOWER EXTREMITIES. BLOOD GLUCOSE TESTING 4X DAILY FREQ. RN TO ASSESS AND TEACH, BEER COOLER/WIDE AREA NETWORK ADMINISTRATOR TO OBSERVE AND TEACH PATIENT/CAREGIVER ABILITY TO PERFORM AND RECORD BLOOD GLUCOSE TESTING ORDERED AND TO REPORT ABNORMAL FINDINGS TO PHYSICIAN. RN/BEER COOLER/WIDE AREA NETWORK ADMINISTRATOR MAY PERFORM BLOOD GLUCOSE TEST NEEDED. RN/BEER COOLER/WIDE AREA NETWORK ADMINISTRATOR TO REPORT TO PHYSICIAN BLOOD GLUCOSE READINGS GREATER THAN 350 OR LESS THAN 80 RN/BEER COOLER/WIDE AREA NETWORK ADMINISTRATOR TO INSTRUCT PATIENT ON IMPORTANCE OF HGBA1C MONITORING, KIDNEY FUNCTION TEST, EYE AND FOOT EXAMS. [code = DIABETES MANAGEMENT; RN TO ASSESS AND TEACH, BEER COOLER/WIDE AREA NETWORK ADMINISTRATOR TO OBSERVE AND TEACH INSTRUCTIONS OF DIABETIC CARE TO INCLUDE: DIET DIABETIC, SKIN CARE, SIGNS AND SYMPTOMS OF HYPO/HYPERGLYCEMIA, PROPER ADMINISTRATION OF DIABETIC MEDICATION. RN/BEER COOLER/WIDE AREA NETWORK ADMINISTRATOR TO INSTRUCT ON DIABETIC FOOT CARE AND MONITOR FOR SKIN LESIONS ON LOWER EXTREMITIES. BLOOD GLUCOSE TESTING 4X DAILY FREQ. RN TO ASSESS AND TEACH, BEER COOLER/WIDE AREA NETWORK ADMINISTRATOR TO OBSERVE AND TEACH PATIENT/CAREGIVER ABILITY TO PERFORM AND RECORD BLOOD GLUCOSE TESTING ORDERED AND TO REPORT ABNORMAL FINDINGS TO PHYSICIAN. RN/BEER COOLER/WIDE AREA NETWORK ADMINISTRATOR MAY PERFORM BLOOD GLUCOSE TEST NEEDED. RN/BEER COOLER/WIDE AREA NETWORK ADMINISTRATOR TO REPORT TO PHYSICIAN BLOOD GLUCOSE READINGS GREATER THAN 350 OR LESS THAN 80 RN/BEER COOLER/WIDE AREA NETWORK ADMINISTRATOR TO INSTRUCT PATIENT ON IMPORTANCE OF HGBA1C MONITORING, KIDNEY FUNCTION TEST, EYE AND FOOT EXAMS.] Future Scheduled Test PAIN MANAG EMENT; RN TO ASSESS AND TEACH, BEER COOLER/WIDE AREA NETWORK ADMINISTRATOR TO OBSERVE AND TEACH AND PROVIDE EDUCATION ON PAIN MANAGEMENT TECHNIQUES. [code = PAIN MANAGEMENT; RN TO ASSESS AND TEACH, BEER COOLER/WIDE AREA NETWORK ADMINISTRATOR TO OBSERVE AND TEACH AND PROVIDE EDUCATION ON PAIN MANAGEMENT TECHNIQUES.] Future Scheduled Test RISK FOR H OSPITALIZATION; RN TO ASSESS/TEACH, BEER COOLER/WIDE AREA NETWORK ADMINISTRATOR TO OBSERVE/TEACH PATIENT/CAREGIVER ON RISK FOR HOSPITALIZATION/EMERGENCY ROOM VISITS, TEACH SIGNS AND SYMPTOMS THAT PUT PATIENT AT RISK, WHEN TO NOTIFY NURSE/PHYSICIAN OF COMPLICATIONS/DECLINE, AND WHEN TO CALL 911. [code = RISK FOR HOSPITALIZATION; RN TO ASSESS/TEACH, BEER COOLER/WIDE AREA NETWORK ADMINISTRATOR TO OBSERVE/TEACH PATIENT/CAREGIVER ON RISK FOR HOSPITALIZATION/EMERGENCY ROOM VISITS, TEACH SIGNS AND SYMPTOMS THAT PUT PATIENT AT RISK, WHEN TO NOTIFY NURSE/PHYSICIAN OF COMPLICATIONS/DECLINE, AND WHEN TO CALL 911.] Future Scheduled Test CARDIOVASC ULAR SYSTEM; RN TO ASSESS/TEACH, WIDE AREA NETWORK ADMINISTRATOR/BEER COOLER TO OBSERVE/TEACH RELATED TO ALTERED CARDIOVASCULAR STATUS TO MINIMIZE COMPLICATIONS AND REDUCE HOSPITALIZATION. [code = CARDIOVASCULAR SYSTEM; RN TO ASSESS/TEACH, WIDE AREA NETWORK ADMINISTRATOR/BEER COOLER TO OBSERVE/TEACH RELATED TO ALTERED CARDIOVASCULAR STATUS TO MINIMIZE COMPLICATIONS AND REDUCE HOSPITALIZATION.] Future Scheduled Test HYPERTENSI ON MANAGEMENT; RN TO ASSESS AND TEACH, WIDE AREA NETWORK ADMINISTRATOR/BEER COOLER TO OBSERVE AND TEACH WARNING SIGNS AND SYMPTOMS TO AVOID HOSPITALIZATION. [code = HYPERTENSION MANAGEMENT; RN TO ASSESS AND TEACH, WIDE AREA NETWORK ADMINISTRATOR/BEER COOLER TO OBSERVE AND TEACH WARNING SIGNS AND SYMPTOMS TO AVOID HOSPITALIZATION. ] Future Scheduled Test ARRHYTHMIA MANAGEMENT; RN TO ASSESS AND TEACH, WIDE AREA NETWORK ADMINISTRATOR/BEER COOLER TO OBSERVE AND TEACH WARNING SIGNS AND SYMPTOMS TO AVOID HOSPITALIZATION. [code = ARRHYTHMIA MANAGEMENT; RN TO ASSESS AND TEACH, WIDE AREA NETWORK ADMINISTRATOR/BEER COOLER TO OBSERVE AND TEACH WARNING SIGNS AND SYMPTOMS TO AVOID HOSPITALIZATION. ] Future Scheduled Test AGENCY MAY PERFORM A RESUMPTION OF CARE VISIT FOLLOWING ANY HOSPITAL ADMISSION. PT TO EVALUATE, OBSERVE / ASSESS, AND MONITOR, GUIDE TRAVEL TO OBSERVE AND MONITOR, PROVIDE SKILLED THERAPEUTIC INTERVENTION, ACTIVITY, EDUCATION, AND TRAINING TO ADDRESS; PT/GUIDE TRAVEL TO PROVIDE GAIT TRAINING FOR IMPROVED MOBILITY AND /OR TO NORMALIZE GAIT PATTERN NEUROMUSCULAR RE-EDUCATION / BALANCE / POSTURAL CONTROL (PT) PT/GUIDE TRAVEL TO PROVIDE STAIR TRAINING SIT TO/FROM STAND TRANSFERS (PT/GUIDE TRAVEL) PT TO ASSESS / GUIDE TRAVEL TO MONITOR FOR AND REPORT EARLY SIGNS OF ANTICOAGULANT TOXICITY TO THE PHYSICIAN AND/OR THE RN CLINICAL TAXICAB DRIVER FOR PHYSICIAN NOTIFICATION AND TO PROVIDE PATIENT/CAREGIVER EDUCATION ON ANTICOAGULANT THERAPY PT / GUIDE TRAVEL TO MONITOR FOR HYPO/HYPERGLYCEMIA AND CONDUCT ROUTINE FOOT INSPECTIONS. RECORD PATIENT REPORTED BLOOD SUGAR LEVELS AND NOTIFY PHYSICIAN AND/OR THE RN CLINICAL TAXICAB DRIVER FOR PHYSICIAN NOTIFICATION IF BLOOD SUGAR LEVELS ARE OUTSIDE ORDERED PARAMETERS. TEACH PATIENT/CAREGIVER ON DAILY FOOT INSPECTIONS PT TO ASSESS / GUIDE TRAVEL TO MONITOR FOR HEART FAILURE EXACERBATION AND RECORD PATIENT REPORTED WEIGHT, AND NOTIFY THE PHYSICIAN AND/OR THE RN CLINICAL TAXICAB DRIVER FOR PHYSICIAN NOTIFICATION OF HF EXACERBATION (2LB WEIGHT GAIN IN 1 DAY, 5LBS IN A WEEK OR 5 LBS OVER BASELINE; INCREASED SOB, EDEMA, NEEDING MORE PILLOWS AT NIGHT, CRACKLES IN BASIS OF THE LUNGS OR PMI SHIFT) PT TO ASSESS / GUIDE TRAVEL TO MONITOR CARDIO/RESPIRATORY SYSTEM; AND NOTIFY THE PHYSICIAN AND/OR THE RN CLINICAL TAXICAB DRIVER FOR PHYSICIAN NOTIFICATION FOR EARLY SIGNS AND SYMPTOMS OF EXACERBATION OR DETERIORATION. PT/GUIDE TRAVEL TO IDENTIFY FALL RISK FACTORS; EDUCATE THE PATIENT/CAREGIVER ON WAYS TO REDUCE FALL RISK FACTORS AND ESTABLISH HOME EXERCISE PROGRAM TO MINIMIZE FALL RISK. MAY TEACH THE PATIENT FLOOR RECOVERY WHEN CLINICALLY APPROPRIATE PT / GUIDE TRAVEL TO EDUCATE ON CVA SELF-MANAGEMENT PT / GUIDE TRAVEL MAY EDUCATE ON PAIN MANAGEMENT CLINICALLY INDICATED, INCLUDING NON-PHARMACOLOGICAL PAIN REDUCTION TECHNIQUES PT / GUIDE TRAVEL TO INSTRUCT PATIENT/CAREGIVER ON RISK FOR HOSPITALIZATION/EMERGENCY ROOM VISITS, TEACH SIGNS AND SYMPTOMS THAT PUT PATIENT AT RISK, WHEN TO NOTIFY NURSE/PHYSICIAN OF COMPLICATIONS/DECLINE, AND WHEN TO CALL 911. PT / GUIDE TRAVEL TO EDUCATE ON HEART FAILURE SELF-MANAGEMENT PT / GUIDE TRAVEL TO EDUCATE ON HYPERTENSION SELF-MANAGEMENT PT / GUIDE TRAVEL TO EDUCATE ON ATRIAL FIBRILLATION SELF-MANAGEMENT. PT / GUIDE TRAVEL TO EDUCATE ON COPD SELF-MANAGEMENT [code = AGENCY MAY PERFORM A RESUMPTION OF CARE VISIT FOLLOWING ANY HOSPITAL ADMISSION. PT TO EVALUATE, OBSERVE / ASSESS, AND MONITOR, GUIDE TRAVEL TO OBSERVE AND MONITOR, PROVIDE SKILLED THERAPEUTIC INTERVENTION, ACTIVITY, EDUCATION, AND TRAINING TO ADDRESS; PT/GUIDE TRAVEL TO PROVIDE GAIT TRAINING FOR IMPROVED MOBILITY AND /OR TO NORMALIZE GAIT PATTERN NEUROMUSCULAR RE-EDUCATION / BALANCE / POSTURAL CONTROL (PT) PT/GUIDE TRAVEL TO PROVIDE STAIR TRAINING SIT TO/FROM STAND TRANSFERS (PT/GUIDE TRAVEL) PT TO ASSESS / GUIDE TRAVEL TO MONITOR FOR AND REPORT EARLY SIGNS OF ANTICOAGULANT TOXICITY TO THE PHYSICIAN AND/OR THE RN CLINICAL TAXICAB DRIVER FOR PHYSICIAN NOTIFICATION AND TO PROVIDE PATIENT/CAREGIVER EDUCATION ON ANTICOAGULANT THERAPY PT / GUIDE TRAVEL TO MONITOR FOR HYPO/HYPERGLYCEMIA AND CONDUCT ROUTINE FOOT INSPECTIONS. RECORD PATIENT REPORTED BLOOD SUGAR LEVELS AND NOTIFY PHYSICIAN AND/OR THE RN CLINICAL TAXICAB DRIVER FOR PHYSICIAN NOTIFICATION IF BLOOD SUGAR LEVELS ARE OUTSIDE ORDERED PARAMETERS. TEACH PATIENT/CAREGIVER ON DAILY FOOT INSPECTIONS PT TO ASSESS / GUIDE TRAVEL TO MONITOR FOR HEART FAILURE EXACERBATION AND RECORD PATIENT REPORTED WEIGHT, AND NOTIFY THE PHYSICIAN AND/OR THE RN CLINICAL TAXICAB DRIVER FOR PHYSICIAN NOTIFICATION OF HF EXACERBATION (2LB WEIGHT GAIN IN 1 DAY, 5LBS IN A WEEK OR 5 LBS OVER BASELINE; INCREASED SOB, EDEMA, NEEDING MORE PILLOWS AT NIGHT, CRACKLES IN BASIS OF THE LUNGS OR PMI SHIFT) PT TO ASSESS / GUIDE TRAVEL TO MONITOR CARDIO/RESPIRATORY SYSTEM; AND NOTIFY THE PHYSICIAN AND/OR THE RN CLINICAL TAXICAB DRIVER FOR PHYSICIAN NOTIFICATION FOR EARLY SIGNS AND SYMPTOMS OF EXACERBATION OR DETERIORATION. PT/GUIDE TRAVEL TO IDENTIFY FALL RISK FACTORS; EDUCATE THE PATIENT/CAREGIVER ON WAYS TO REDUCE FALL RISK FACTORS AND ESTABLISH HOME EXERCISE PROGRAM TO MINIMIZE FALL RISK. MAY TEACH THE PATIENT FLOOR RECOVERY WHEN CLINICALLY APPROPRIATE PT / GUIDE TRAVEL TO EDUCATE ON CVA SELF-MANAGEMENT PT / GUIDE TRAVEL MAY EDUCATE ON PAIN MANAGEMENT CLINICALLY INDICATED, INCLUDING NON-PHARMACOLOGICAL PAIN REDUCTION TECHNIQUES PT / GUIDE TRAVEL TO INSTRUCT PATIENT/CAREGIVER ON RISK FOR HOSPITALIZATION/EMERGENCY ROOM VISITS, TEACH SIGNS AND SYMPTOMS THAT PUT PATIENT AT RISK, WHEN TO NOTIFY NURSE/PHYSICIAN OF COMPLICATIONS/DECLINE, AND WHEN TO CALL 911. PT / GUIDE TRAVEL TO EDUCATE ON HEART FAILURE SELF-MANAGEMENT PT / GUIDE TRAVEL TO EDUCATE ON HYPERTENSION SELF-MANAGEMENT PT / GUIDE TRAVEL TO EDUCATE ON ATRIAL FIBRILLATION SELF-MANAGEMENT. PT / GUIDE TRAVEL TO EDUCATE ON COPD SELF-MANAGEMENT ] Goal [...] End Date/Time Encounter Type Admission Type Attending [facility] Department Encounter ID Discharge Date Discharge Status Discharge Condition Discharge Reason Percent Goals Met 2024-10-31 00:00:00 2024-12-29 00:00:00 Outpatient NEW ADMISSION JONATHAN LYONS [facility] [id number] 23.40
--- OUTSIDE RECORDS SUMMARY | 2024-12-13 08:47 | XMS_ITS | Clinical Summary ---
Author Organization [facility] Address [address] [place] [address] Care Team Providers Care Electrical Discharge Machine Operator Name Role Phone Robin Nelson MD Primary Care Provider [phone] Allergies No known active allergies Medications warfarin [...] tabletIndications :Diabetes mellitus ([facility]) TAKE 1 TABLET BY MOUTH TWICE A DAY 60 tablet 2 1 Active PIOGLITAZONE 15 MG tabletIndications :Type 2 diabetes mellitus with stage 3a chronic kidney disease, without long-term current use of insulin ([facility]) TAKE 1 TABLET BY MOUTH EVERY DAY [...] pu lmonary disease) ([facility]) 02/02/2020 Diabetes mellitus ([facility]) Hypertension Immunizations Immunization Administration Dates Next Due Flublok (Quadrivalent) 06/02/2020 Fluzone High Dose - >Age 65 (Prefilled Syringe) 07/02/2018 PFIZER COVID-19 (ORIGINAL FO RMULATION, PURPLE CAP) mRNA, LNP-S, PF, 30 MCG/0.3 ML DOSE 10/23/2020,09/25/2020 Tdap (Generic) 03/08/2019,03/19/2016 Zoster (Zostavax) 97600 Unt/0.65Ml 03/19/2016 Social History Tobacco Use Types [...] Comments Blood Pressure 155/71 09/19/2021 12:53 PM WIRE STRANDER Pulse 68 09/19/2021 12:53 PM WIRE STRANDER Temperature 35.8 C (96.5 F) 09/19/2021 11:03 AM WIRE STRANDER Respiratory Rate 20 09/19/2021 11:03 AM WIRE STRANDER Oxygen Saturation 95% 09/19/2021 12:53 PM WIRE STRANDER Inhaled Oxygen Concentration - - Weight 113.4 kg (250 lb) 09/15/2021 2:17 PM WIRE STRANDER Height 182.9 cm (6') 09/15/2021 2:17 PM WIRE STRANDER Body Mass Index 33.91 09/15/2021 2:17 PM WIRE STRANDER Plan of Treatment Health Maintenance Due Date Last Done Comments Kidney Health Evaluation 1940 Diabetes: Retinopathy Eye Exam 1957 Pneumococcal Vaccine: 50+ Years (1 of 2 - PCV) 1958 Annual Medicare Wellness Visit 2004 RSV Immunization or 60+ Years (1 - 1-dose 75+ series) 2014 Zoster Vaccines (2 of 3) 05/14/2016 03/19/2016 Hemoglobin A1C 01/02/2021 07/05/2020, 02/02/2020 Lipid Panel 02/01/2021 02/02/2020 COVID-19 Vaccine (3 - 2023-2 5 season) 2024 10/23/2020, 09/25/2020 DTaP, Tdap and Td Vaccines ( 3 [...] this topic Medical Devices Implanted Type Area Stave Inspector Device Identifier Shelf Expiration Date Model / Serial / Lot Intraocular Lens Implanted:Qty: 1 on 09/19/2021 by Daren Ralph MD at [facility] Left: Eye 04/14/2023 [id number] / [id number] / Procedures Procedure Name Priority Date/Time Associated Diagnosis Comments HEMOGLOBIN, GLYCOSYLATED Routine 07/05/2020 Type 2 diabetes mellitus with stage 3a chronic kidney disease, without long-term current use of insulin LIPID PANEL Routine 02/02/2020 11:47 AM CDT Dyslipidemia from Last 3 Months or Most Recently Relevant to Health Maintenance Results * HEMOGLOBIN, GLYCOSYLATED (07/05/2020) HGB A1C 8.2 % [address] ([id number] [facility]) [place] 07/05/2020 Collette Stockton MD LABORATORY Final Result [address] ([id number] [facility]) [place] [address] [place] [address], * (ABNORMAL) LIPID PANEL (02/02/2020 11:47 AM CDT) CHOLESTEROL 123 <200 mg/dL [facility] HDL 37(L) > OR = 40 mg/dL [facility] TRIGLYCERIDES 237(H) <150 mg/dL [facility] Comment: If a non-fasting specimen was collected, consider repeat triglyceride testing on a fasting specimen if clinically indicated. Amrit et al. J. of Clin. Lipidol. 2015;9:129-169. LDL (CALCULATED) 56 mg/dL (calc) [facility] Comment: Reference range: <100 Desirable range <100 mg/dL for primary prevention; <70 mg/dL for patients with CHD or diabetic patients with > or = 2 CHD risk factors. LDL-C is now calculated using the Herber-Chapa calculation, which is a validated novel method providing better accuracy than the Friedewald equation in the estimation of LDL-C. Herber SS et al. SADE. 2013;310(19): 0349-6220 (http://education.Infakt.pl/faq/CZC210) CHOL/HDL RATIO 3.3 <5.0 (calc) [facility] NON HDL CHOLESTEROL 86 <130 mg/dL (calc) [facility] Comment: For patients with diabetes plus 1 major ASCVD risk factor, treating to a non-HDL-C goal of <100 mg/dL (LDL-C of <70 mg/dL) is considered a therapeutic option. 02/02/2020 11:4 7 AM CDT 02/03/2020 3:01 AM CDT Narrative Resulting Agency Comment Performing Organization Information: Site ID: [id number] Name: [facility] Address: [address] [address] Director: Siva Roman D.O., MPH Collette Stockotn MD LABORATORY Final Result 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
--- OUTSIDE RECORDS SUMMARY | 2024-12-13 08:47 | XMS_ITS | Encounter Summary ---
Author Organization [facility] Address [address] [place] [address] Phone Care Team Providers Care Industrial Gas Servicer Supervisor Name Role Phone Barry Ralph MD Primary Care Provider [phone] Rehan Sheth MD Unavailable [phone] Encounter Details Date Type Department Care Team (Late st Contact Info) Description 11/11/2024 Telephone [facility] Cardiology [address] [facility] Advanced Medicine 8th [place] [address] [place] [address] Rehan Sheth MD [address] [facility] [address] [place] [address] Social History Tobacco Use Types Packs/Day Years Used Date Smoking Tobacco: Never Smokeless Tobacco: Never [facility] Utilities Answer Date Recorded In the past 12 months has [employer] electric, gas, oil, or water company threatened [...] How often do you attend chur or evangelical services? More than 4 times per year 09/15/2024 Do you belong to any clubs o r organizations such as evangelical groups, unions, fraternal or athletic groups, or [...] Date Recorded PHQ-2 Total Score 0 09/12/2024 [facility] [...] the money to buy more. Never true 01/27/20 25 Within the past 12 months, t [...] any time in the past 12 m [facility], were you homeless or living in a halfway (including now)? No 09/15/2024 Personal Safety Answer Date Recorded Have you ever been in or are you currently in a harmful physical or emotional relationship or is someone making you feel afraid or unsafe? Denies 10/06/2024 Sex and Gender Information Value Date Recorded Sex Assigned at Not on file Legal Sex Male 8:23 PM TRIAL JUDGE Gender Identity Not on file Sexual Orientation Not on file documented as of this encounter Miscellaneous Notes * Telephone Encounter - Jones Chau - 11/11/2024 8:52 AM CDT CALLED TO SEE IF RECORDS WAS RECEIVED FROM [facility], 49 PAGES WAS FAXED OVER YESTERDAY documented in this encounter Plan of Treatment Not on file documented as of this encounter Goals Goal Patient Goal Type Associated Problems Recent Progress Patient-Stated? Author CCM Chronic Pain Care Plan Chronic Care Management Improving( 10:49 AM TRIAL JUDGE) Nenita Sanchez, RN Note: Problem: Chronic Pain Goals: 1. Minimize further functional decline 2. Maximize quality of life 3. Control pain Strategies: - Activity/exercise program recommendation - Conservative stepwise pain medicine strategy with multi-disciplinary approach - Recommend healthy lifestyle strategies and compensatory methods as needed documented as of this encounter Visit Diagnoses Not on filedocumented in this encounter Care Teams Industrial Gas Servicer Supervisor Relationship Specialty Start Date End Date Barry Ralph MD PCP - General Family Practice 05/22/24 Rehan Sheth MD [address] [address] Consulting Physician Cardiology 09/09/24 documented as of this encounter
--- OUTSIDE RECORDS SUMMARY | 2024-12-13 08:47 | XMS_ITS | Referral Summary ---
Author Organization [facility] Address [address] [place] [address] Care Team Providers Care Life Manager Name Role Phone Barry Ralph MD Primary Care Provider [phone] Rehan Sheth MD Unavailable [phone] Encounters Date Type Department Care Team Description 12/04/2024 Telephone [facility] Cardiology [address] [facility] Advanced Medicine 8th [place] [address] [place] [address] Rehan Sheth MD med list fax 11/11/2024 Telephone [facility] Cardiology [address] [facility] 8th [place] [address] [place] [address] Rehan Sheth MD 11/07/2024 10:15 AM CDT Office Visit [facility] Neurosurgery [facility] Medical Office Building [address] [place] [address] Clayton Robertson DO Spinal stenosis of lumbar region with neurogenic claudication 11/05/2024 Telephone [facility] Cardiology [facility] 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 (Primary Dx); Paroxysmal atrial fibrillation (HCC); Chronic heart failure with preserved ejection fraction (HCC) 10/14/2024 SHOP/CHAP Subsequent Outreach [facility] [address] [place] [address] Sangita Moore, RN 10/10/2024 SHOP/CHAP Subsequent Outreach [facility] [address] [place] [address] Sangita Moore, RN 10/08/2024 Documentation [facility] 1 [place] [address] Yvonne Tanner, TIM 10/08/2024 SHOP/CHAP Subsequent Outreach [facility] [address] [place] [address] Sangita Moore, RN 10/07/2024 Telephone [facility] Cardiology [address] [place] [address] 8th [place] [address] [place] [address] Rehan Sheth MD shortness of breath/anxiety 10/07/2024 SHOP/CHAP Subsequent Outreach [facility] [address] [place] [address] Sangiat Moore, RN 10/06/2024 SHOP/CHAP Subsequent Outreach [facility] [address] [place] [address] Sangita Moore, RN 10/06/2024 Results Follow-Up [facility] Cardiology [address] [place] [address] 8th [place] [address] [place] [address] Amanda Chatman RN 10/06/2024 2:18 PM WORKCELL OPERATOR - 10/06/2024 7:30 PM [facility] Emergency [facility] Emergency Department 1 [place] [address] Aneta Castellanos MD Altered mental status, unspecified altered mental status type (Primary Dx) Discharge Disposition: Discharge to home or self care 10/06/2024 Telephone [facility] Cardiology [address] [place] [address] 8th [place] [address] [place] [address] Rehan Sheth MD [facility] 10/03/2024 10:45 AM [facility] - 10/03/2024 12:00 PM [facility] Surgery [facility] Heart [facility] Vascular [address] [address] Nigel Holman MD Right Left Heart Catheterization with Coronary Angiography with or without Left Ventriculography [id number] 10/03/2024 7:50 AM WORKCELL OPERATOR - 10/03/2024 5:48 PM [facility] Hospital Encounter [facility] Heart [facility] Vascular [place] [address] [place] [address] Nigel Holman MD Chest pain, unspecified type (Primary Dx); Chronic systolic heart failure (HCC); 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; Acute on chronic heart failure, unspecified heart failure type (HCC); Paroxysmal atrial fibrillation (HCC); History of aortic valve replacement Discharge Disposition: Discharge to home or self care 09/30/2024 SHOP/CHAP Subsequent Outreach [facility] [address] [place] [address] Sangita Moore RN 09/26/2024 SHOP/CHAP Subsequent Outreach [facility] [address] [place] [address] Sangita Moore RN 09/25/2024 Orders Only [facility] Cardiology [address] [place] [address] 8th [place] [address] [place] [address] Naila Cortez RN High risk medications (not anticoagulants) long-term use (Primary Dx) 09/25/2024 Telephone [facility] Cardiology [address] [place] [address] [place] [address] [place] [address] Rehan Sheth MD 09/24/2024 7:40 PM WORKCELL OPERATOR Lab [facility] [address] [place], [place] [address] Chronic heart failure with preserved ejection fraction (HCC) 09/24/2024 Telephone [facility] Cardiology [address] [place] [address] Floor [address] [place] [phone] Rehan Sheth MD cardiac cath 09/24/2024 3:15 PM WORKCELL OPERATOR Office Visit [facility] Cardiology [address] [place] [address] [place] [address] [place] [address] Rehan Sheth MD Chronic heart failure with preserved ejection fraction (HCC) (Primary Dx); History of aortic valve replacement; Benign essential hypertension; Paroxysmal atrial fibrillation (HCC) 09/23/2024 SHOP/CHAP Subsequent Outreach [facility]NAGEMENT [address] [place] [address] Sangita Moore, RN 09/17/2024 SHOP/CHAP Subsequent Outreach [facility] CASE [facility]NAGEMENT [address] [place] [address] Sangita Moore, RN 09/15/2024 SHOP/CHAP Initial Outreach [facility]NAGEMENT [address] [place] [address] Sangita Moore, RN 09/15/2024 Telephone [facility] Cardiology [address] [place] [address] [place] [address] [place] [address] Rehan Sheth MD f/u orders 09/15/2024 SHOP/CHAP Initial Eligibility Review [facility] [address] [place] [address] Sangita Moore RN 09/11/2024 12:49 PM WORKCELL OPERATOR - 09/14/2024 12:22 PM WORKCELL OPERATOR Hospital Encounter [facility] 1 [place] [address] Joseph Lucas MD [place], MD Melissa King, Dalila Jean MD Chest pain, unspecified type (Primary Dx) Discharge Disposition: Discharge to home or self care from Last 3 Months Allergies No known active allergies Medications albuterol HFA (PROVENTIL HFA,VENTOLIN HFA,PROAIR HFA) 90 mcg/actuation inhaler Inhale 2 puffs as needed for shortness of breath 09/17/19 15 Active lancets (OneTouch Delica Plus Lancet) 30 gauge miscIndications:Typ e 2 diabetes mellitus with hyperosmolarity without coma, without long-term current use of insulin ([facility]) Use to check blood sugar 3x daily 300 each 2 02/01/20 22 Active blood glucose diagnostic (True Metrix Glucose Test Strip) stripIndications:Ty pe 2 diabetes mellitus with hyperosmolarity without coma, without long-term current use of insulin ([facility]) TEST BLOOD SUGAR EVERY DAY [...] DAILY WITH MEALS 200 tablet 2 07/14/20 Active apixaban (ELIQUIS) 5 mg tabletIndications:a trial [...] mouth 2 (two) times a day 10/13/19 Active melatonin 5 mg tablet Take 1 tablet (5 mg total) by mouth nightly at bedtime. 10/19/19 Active traZODone (DESYREL) 50 mg tablet Take 1 tablet (50 mg total) by mouth nightly 10/31/19 Active Active Problems Problem Noted Date Diagnosed Date Chest pain, unspecified type 09/11/2024 Coronary artery disease invo lving chicken ranch coronary artery of chicken ranch heart with angina pectoris 09/10/2024 Internal carotid [...] to ostial circ; RCA with a known BUILDING ADMIN (angiography not performed). -s/p Successful PCI to [...] Plan (05/20/2024 11:34 AM CDT): Went to [facility] 05/17 for SOB, new 2L O2 requirement - OSH workup: Trp 1.95>5.1>10, proBNP 6800, CXR w/ mild interstitial edema - OSH LHC 9/30 w/ L main widely patent, LAD proximal body 80% stenosis, LAD stent w/ moderate ISR, L cx w/ 95% stenosis in proximal body, OM branches w/ mild disease, RCA is BUILDING ADMIN in mid body w/ L to R collaterals - cath films uploaded - OSH TTE reportedly w/ EF 50%, AV prosthesis w/o abnormal gradients - trop here 7,6561, repeat pending - currently denies chest pain or pressure, sob improving - PCI today - continue heparin drip - continue asa, coreg, atorvastatin 80mg - telemetry Assessment & Plan (05/20/2024 1:02 AM CDT): Went to [facility] 05/17 for SOB, new 2L O2 requirement - OSH workup: Trp 1.95>5.1>10, proBNP 6800, CXR w/ mild interstitial edema - OSH LHC 9/30 w/ L main widely patent, LAD proximal body 80% stenosis, LAD stent w/ moderate ISR, L cx w/ 95% stenosis in proximal body, OM branches w/ mild disease, RCA is BUILDING ADMIN in mid body w/ L to R [...] Assessment & Plan (05/21/2024 10:58 AM CDT): [facility] 05/17 for SOB, on 3.5L [...] Assessment & Plan (05/20/2024 11:50 AM CDT): [facility] 05/17 for SOB, on 3.5L [...] Assessment & Plan (05/20/2024 1:00 AM CDT): [facility] 05/17 for SOB, on 2L now [...] benefi Assessment & Plan (07/04/2024 1:02 PM WORKCELL OPERATOR): He may just be symptomatic from [...] Assessment & Plan (03/17/2024 1:48 PM CDT): Mail List Processor stenosis and 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 Still [...] stenosis. Assessment & Plan (07/04/2024 1:03 PM WORKCELL OPERATOR): Failed LMBB. Assessment & Plan (04/23/2024 [...] Encounter for Medicare annual wellness exam 05/20 snf (current) use of anticoagulants [Z79.0 1] 03/27/2018 Atrial fibrillation ([facility]) [I48.91] 8 Overview (09/04/2018): Dr. Shteh helps direct the INR. Assessment & Plan [...] quiescent Assessment & Plan (09/04/2018 10:33 AM WORKCELL OPERATOR): COPD is unchanged. COPD information handout [...] to PT - wants to go to [facility]. Trial robaxin. Flexeril on med list but [...] no Assessment & Plan (10/01/2019 10:35 AM WORKCELL OPERATOR): S2 makes a wonderfully crisp snap w/o any regurge Gastroesophageal reflux disease 09/17/2014 Tussive syncope 08/25/2014 Syncope and collapse 08/21/2014 Syncope 08/21/2014 Type 2 diabetes mellitus 07/10/2014 Overview (05/13/2021): Was on levemir but stopped 2015 then on trulicity so on metformin ALONE We had better control w/ Phillip -since he has been w/ Dr Stockton [id number] has been on Actose and metformin- Off [...] heart- Assessment & Plan (10/01/2019 10:30 AM WORKCELL OPERATOR): His A1C has crept to 7.5% [...] covered Assessment & Plan (09/04/2018 10:42 AM WORKCELL OPERATOR): Diabetes is worsening. Continue current treatment regimen. Reminded to bring in blood sugar diary at next visit. Dietary recommendations for ADA diet. Regular aerobic exercise. Discussed foot care. Reminded to get yearly retinal exam. Diabetes will be reassessed in 3 months. Given his financial concerns my advice is to use food as [facility] medicine Obesity with body mass index 30 or greater 07/09 Generalized anxiety disorder 07/09/2014 Assessment & Plan (10/01/2019 10:32 AM WORKCELL OPERATOR): He gets along nicely w/ a [...] Smokeless Tobacco: Never Tobacco Cessation:Counseling Given: No [facility] Utilities Answer Date Recorded In the past 12 months has [employer], [employer], oil, or water [employer] threatened to shut off services in your [...] often do you attend chur ch or restorationist services? More than 4 times per year 09/15/2024 Do you belong to any clubs o r organizations such as hindu groups, unions, fraternal or athletic groups, or [...] Date Recorded PHQ-2 Total Score 0 09/12/2024 [facility] of Occupat ional [facility] - Occupational Stress Questionnaire Answer [...] any time in the past 12 m [facility], were you homeless or [...] on file Legal Sex Male 8:23 PM WORKCELL OPERATOR Gender Identity Not on file Sexual Orientation Not on file Last Filed Vital Signs Vital Sign Reading Time Taken Comments Blood Pressure 156/55 11/05/2024 2:02 PM CDT Pulse 56 11/05/2024 2:02 PM CDT Temperature 36.6 C (97.9 F) 10/06/2024 12:33 PM WORKCELL OPERATOR Respiratory Rate 10 10/06/2024 6:55 PM WORKCELL OPERATOR Oxygen Saturation 97% 11/05/2024 2:02 PM CDT Inhaled Oxygen Concentration - - Weight 97.5 kg (215 lb) 11/07/2024 10:01 AM CDT Height 182.9 cm (6') 11/07/2024 10:01 AM CDT Body Mass Index 29.16 11/07/2024 10:01 AM CDT Plan of Treatment Not on file Goals Goal Patient Goal Type Associated Problems Recent Progress Patient-Stated? Author CCM Chronic Pain Care Plan Chronic Care Management Improving( 10:49 AM WORKCELL OPERATOR) Nenita Sanchez RN Note: Problem: Chronic Pain Goals: 1. Minimize further functional decline 2. Maximize quality of life 3. Control pain Strategies: - Activity/exercise program recommendation - Conservative stepwise pain medicine strategy with multi-disciplinary approach - Recommend healthy lifestyle strategies and compensatory methods as needed Medical Devices Implanted Type Area Supervisor Fur Dressing Device Identifier Shelf Expiration Date Model / Serial / Lot [employer] Angio-Seal Vip [place]-Plus 8fr .038in 70cm Hemostatic Latex Free [id number] - [id number] - [id number] Implanted:Qty : 1 on 05/20/2024 by Papo Rascon MD at [facility] Collagen Right: Common Femoral Artery [employer] 12/10/2024 [id number] / [id number] / [id number] Prosthetic Valve Prosthetic Valve Heart Description:Heart Valve Medtronic Card Vasc Surgery 4.0 X 12mm [place] Rx Coronary Stent [id number] - [id number] - [id number] Implanted:Qty : 1 on 05/20/2024 by Vitor Pedroza MD at [facility] Stent N/A: Circumflex Coronary Artery Medtronic Card Vasc Surgery 01/11/2027 [id number] / [id number] / [id number] Medtronic Card Vasc Surgery 4.0 X 12mm [place] Rx Coronary Stent [id number] - [id number] - [id number] Implanted:Qty : 1 on 05/20/2024 by Vitor Pedroza MD at [facility] Stent Left: Anterior Descending Cornary Artery Medtronic Card Vasc Surgery 11/14/2026 [id number] / [id number] / [id number] Medtronic Card Vasc Surgery 4.0 X 18mm Hsar [place] Rx Coronary Stent [id number] - [id number] - [id number] Implanted:Qty : 1 on 10/03/2024 by Nigel Holman MD at [facility] Stent Left: Anterior Descending Cornary Artery Medtronic Card Vasc Surgery 04/14/2027 [id number] / [id number] / [id number] Description:Adrian TO lad Procedures Procedure Name Priority Date/Time Associated Diagnosis Comments URINALYSIS, MICROSCOPIC ONLY STAT 10/06/2024 5:51 PM WORKCELL OPERATOR URINALYSIS AND REFLEX TO MICROSCOPIC STAT 10/06/2024 5:51 PM WORKCELL OPERATOR COMPREHENSIVE METABOLIC PANEL Routine 10/06/2024 3:59 PM WORKCELL OPERATOR EGFR Routine 10/06/2024 3:59 PM WORKCELL OPERATOR VITAMIN B12 Routine 10/06/2024 3:59 PM WORKCELL OPERATOR TSH Routine 10/06/2024 3:59 PM WORKCELL OPERATOR CBC WITHOUT DIFFERENTIAL Routine 10/06/2024 3:59 PM WORKCELL OPERATOR RESPIRATORY PATHOGEN PANEL STAT 10/06/2024 3:[address] HEAD WO CONTRAST ED 10/06/2024 3 :37 PM WORKCELL OPERATOR XR CHEST PA LATERAL 2 VIEWS ED 10/06/2024 3:30 PM WORKCELL OPERATOR ECG 12-LEAD STAT 10/06/2024 1:07 PM WORKCELL OPERATOR POCT GLUCOSE DEVICE Routine 10/06/2024 1 2:48 PM WORKCELL OPERATOR EGFR Routine 10/03/2024 4:00 PM WORKCELL OPERATOR DIFFERENTIAL AUTO Routine 10/03/2024 4:0 0 PM WORKCELL OPERATOR CBC WITH AUTO DIFFERENTIAL Routine 10/03/2024 4:00 PM WORKCELL OPERATOR BASIC METABOLIC PANEL Routine 10/03/2024 4:00 PM WORKCELL OPERATOR POCT ACTIVATED CLOTTING TIME, LOW RANGE Routine 10/03/2024 2:14 PM WORKCELL OPERATOR RIGHT AND LEFT HEART CATHETERIZATION Routine 10/03/2024 12:42 PM WORKCELL OPERATOR Chronic systolic heart failure (HCC) 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 Acute on chronic heart failure, unspecified heart failure type (HCC) Paroxysmal atrial fibrillation (HCC) History of aortic valve replacement POCT ACTIVATED CLOTTING TIME, LOW RANGE Routine 10/03/2024 12:42 PM WORKCELL OPERATOR TYPE AND SCREEN Timed 10/03/2024 12:20 PM WORKCELL OPERATOR POCT ACTIVATED CLOTTING TIME, LOW RANGE Routine 10/03/2024 12:06 PM WORKCELL OPERATOR POCT OXYHEMOGLOBIN - DEVICE Routine 10/03/2024 11:47 AM WORKCELL OPERATOR POCT OXYHEMOGLOBIN - DEVICE Routine 10/03/2024 11:45 AM WORKCELL OPERATOR CBC WITHOUT DIFFERENTIAL Routine 10/03/2024 11:45 AM WORKCELL OPERATOR POCT OXYHEMOGLOBIN - DEVICE Routine 10/03/2024 11:44 AM WORKCELL OPERATOR POCT GLUCOSE DEVICE Routine 10/03/2024 8 :45 AM WORKCELL OPERATOR BASIC METABOLIC PANEL Routine 09/29/2024 9:42 AM WORKCELL OPERATOR High risk medications (not anticoagulants) long-term use EGFR Routine 09/24/2024 5:03 PM WORKCELL OPERATOR Chronic heart failure with preserved ejection fraction (HCC) DIFFERENTIAL AUTO Routine 09/24/2024 5:0 3 PM WORKCELL OPERATOR Chronic heart failure with preserved ejection fraction (HCC) BASIC METABOLIC PANEL Routine 09/24/2024 5:03 PM WORKCELL OPERATOR Chronic heart failure with preserved ejection fraction (HCC) PRO B-TYPE NATRIURETIC PEPTIDE Routine 09/24/2024 5:03 PM WORKCELL OPERATOR Chronic heart failure with preserved ejection fraction (HCC) CBC WITH AUTO DIFFERENTIAL Routine 09/24/2024 5:03 PM WORKCELL OPERATOR Chronic heart failure with preserved ejection fraction (HCC) ECG 12-LEAD Routine 09/24/2024 4:01 PM WORKCELL OPERATOR History of aortic valve replacement EGFR STAT 09/14/2024 8:23 AM WORKCELL OPERATOR BASIC METABOLIC PANEL STAT 09/14/2024 8:23 AM WORKCELL OPERATOR HEMOGLOBIN A1C Routine 06/07/2024 8:38 AM CDT LIPID PANEL Routine 06/07/2024 8:38 AM CDT DIABETES FOOT EXAM Routine 11/05/2020 DIABETES EYE EXAM Routine 05/05/2019 from Last 3 Months or Most Recently Relevant to Health Maintenance Results * (ABNORMAL) Urinalysis reflex to microscopic (10/06/2024 5:51 PM WORKCELL OPERATOR) Color, ur Straw Yellow Clarity, ur Clear Clear [facility] Specific gravity, ur 1.010 1.003 - 1.030 [facility] pH, urine 6.0 [facility] Comment: Interpretive Data U rine pH is affected by diet, medications, systemic acid-base disturbances, and renal tubular function. pH may affect urinary stone formation. For example, urine pH below 6.0 may help reduce the tendency for calcium phosphate stones and pH greater than 6.0 may reduce the tendency for uric acid stone formation. Source: Cameron Little B[employer]ed [employer] Current Interpretive Data was last revised on 2017 Protein, ur ql Negative Negative [facility] Glucose, ur ql Negative Negative [facility] Ketones, ur Negative Negative [facility] Bilirubin, ur Negative Negative [facility] Blood, ur Negative Negative [facility] Urobilinogen, ur <2.0 <2.0 mg/dL [facility] Nitrite, ur Negative Negative [facility] Leukocyte esterase, ur Trace(A) Negative [facility] UA reflex comment Reflex to microscopic UA will be performed. [facility] Urine 10/06/2024 5:51 PM WORKCELL OPERATOR 10/06/2024 5:58 PM WORKCELL OPERATOR Aneta Castellanos MD LAB URINE ORDERABLES Final R esult Performing Organization Address [facility] Co de Phone Number [facility] Department [place] [address] * (ABNORMAL) Urinalysis, microscopic only (10/06/2024 5:51 PM WORKCELL OPERATOR) Pathologist [facility] WBC, ur 0-5 0 - 5 /HPF RBC, ur 0-2 0 - 2 /HPF [facility] Epithelial cells, squamous, ur 1-5 0 - 5 /HPF [facility] Epithelial cells, transitional, ur 1-5 0 - 0 /HPF [facility] Bacteria, ur Trace(A) [facility] Mucous, ur Present(A) [facility] Hyaline casts, ur 6-10 0 - 10 /LPF [facility] Urine 10/06/2024 5:51 PM WORKCELL OPERATOR 10/06/2024 5:58 PM WORKCELL OPERATOR Aneta Castellanos MD LAB URINE ORDERABLES Final R esult Performing Organization Address [facility]/ZIP Co de Phone Number [facility] [place] [address] * eGFR (10/06/2024 3:59 PM WORKCELL OPERATOR) Pathologist [facility] eGFR 64 >=60 mL/min/1. 73 m2 Comment: [...] last reviewed 2021. Blood 10/06/2024 3:59 PM WORKCELL OPERATOR 10/06/2024 4:26 PM WORKCELL OPERATOR Aneta Castellanos MD LAB BLOOD ORDERABLES Final R esult [facility] [place] [address] * Respiratory pathogen panel Nasopharyngeal (10/06/2024 3:59 PM WORKCELL OPERATOR) Pathologist [facility] Influenza A RNA Not Detected Not Detected Influenza B RNA Not Detected Not Detected [facility] RSV RNA Not Detected Not Detected [facility] COVID-19 RNA Not Detected Not Detected [facility] Coronavirus 229E RNA Not Detected Not Detected [facility] Coronavirus HKU1 RNA Not Detected Not Detected [facility] Coronavirus NL63 RNA Not Detected Not Detected [facility] Coronavirus OC43 RNA Not Detected Not Detected [facility] Adenovirus DNA Not Detected Not Detected [facility] Metapneumovirus RNA Not Detected Not Detected [facility] Rhinovirus/Enterov irus RNA Not Detected Not Detected [facility] Parainfluenza 1 RNA Not Detected Not Detected [facility] Parainfluenza 2 RNA Not Detected Not Detected [facility] Parainfluenza 3 RNA Not Detected Not Detected [facility] Parainfluenza 4 RNA Not Detected Not Detected [facility] B. pertussis DNA Not Detected Not Detected [facility] B. parapertussis DNA Not Detected Not Detected [facility] C. pneumoniae DNA Not Detected Not Detected [facility] M. pneumoniae DNA Not Detected Not Detected [facility] Nasopharyngeal 10/06/2024 3: 59 PM WORKCELL OPERATOR 10/06/2024 4:19 PM WORKCELL OPERATOR Narrative [facility] - 10/06/2024 6:14 PM WORKCELL OPERATOR Is the Patient experiencing symptoms consistent with COVID?->No Surveillance testing for transplant patient?->No Interpretive Data The [employer] FilmArray Respiratory Panel (RP2.1) assay is a [...] assay has FDA clearance for testing of MARINE ENGINEERING PROFESSOR swabs. The performance of additional specimen types has been assessed by the performing laboratory. The performance characteristics of this assay have been determined by [facility] Molecular Infectious Disease Laboratory. Current interpretive data was last revised on 22. us Oralia Cummings MD LAB MICROBIOLOGY - GENERAL OR DERABLES Final Result Performing Organization Address City/[facility]/ZIP Co de Phone Number [facility] Department [place] [address] * (ABNORMAL) CBC without differential (10/06/2024 3:59 PM WORKCELL OPERATOR) WBC 6.8 3.8 - 9.9 K/cumm Hgb 11.5(L) 13.0 - 17.5 g/dL [facility] Hct 34.1(L) 38.9 - 50.3 % [facility] Plt 162 150 - 400 K/cumm [facility] MPV 11.4 9.1 - 12.3 fL [facility] RBC 3.72(L) 4.30 - 5.80 M/cumm [facility] MCV 91.7 81.3 - 96.4 fL [facility] MCH 30.9 27.1 - 33.3 pg [facility] MCHC 33.7 32.3 - 35.7 g/dL [facility] RDW CV 14.7 11.1 - 14.9 % [facility] HOSPITAL RDW SD 49.6(H) 35.7 - 48.1 fL [facility] NRBC abs 0.00 0.00 - 0.01 K/cumm [facility] Blood 10/06/2024 3:59 PM WORKCELL OPERATOR 10/06/2024 4:26 PM WORKCELL OPERATOR us Priscilla Sarmiento MD LAB BLOOD ORDERABLES Final R esult Performing Organization Address City/[facility]/ZIP Co de Phone Number [facility] [place] [address] * TSH (10/06/2024 3:59 PM WORKCELL OPERATOR) [facility] Thyroid Stimulating Hormone 3.88 0.30 - 4.20 mcIUnit/mL Blood 10/06/2024 3:59 PM WORKCELL OPERATOR 10/06/2024 4:09 PM WORKCELL OPERATOR us Oralia Cummings MD LAB BLOOD ORDERABLES Final Re sult Performing Organization Address [facility] Co de Phone Number [facility] [place] [address] * Vitamin B12 (10/06/2024 3:59 PM WORKCELL OPERATOR) [facility] Vitamin B12 420 230 - 1,250 pg/mL Blood 10/06/2024 3:59 PM WORKCELL OPERATOR 10/06/2024 4:09 PM WORKCELL OPERATOR us Oralia Cummings MD LAB BLOOD ORDERABLES Final Re sult Performing Organization Address [facility] de Phone Number [facility] [place] [address] * (ABNORMAL) Comprehensive metabolic panel (10/06/2024 3:59 PM WORKCELL OPERATOR) [facility] Sodium 143 135 - 145 mmol/L Potassium, pl 4.3 3.3 - 4.9 mmol/L [facility] Chloride 104 97 - 110 mmol/L [facility] CO2 26 22 - 32 mmol/L [facility] Anion gap 13 2 - 15 mmol/L [facility] BUN 26(H) 6 - 25 mg/dL [facility] Creatinine 1.12 0.80 - 1.30 mg/dL [facility] Glucose 94 70 - 199 mg/dL [facility] Comment: Interpretive Data Fasting glucose >/= [...] Calcium 9.1 8.5 - 10.3 mg/dL [facility] Bilirubin, total 0.4 0.1 - 1.2 mg/dL [facility] Protein, pl 7.1 6.5 - 8.5 g/dL [facility] Albumin 3.9 3.5 - 5.0 g/dL [facility] Alk phos 45 40 - 130 Units/L [facility] ALT 15 7 - 55 Units/L [facility] AST 37 10 - 50 Units/L [facility] Blood 10/06/2024 3:59 PM WORKCELL OPERATOR 10/06/2024 4:09 PM WORKCELL OPERATOR us Aneta Castellanos MD LAB BLOOD ORDERABLES Final R esult [facility] Department [place] [address] * CT Head WO Contrast (10/06/2024 3:37 PM WORKCELL OPERATOR) Anatomical Region Laterality Modality Head and Neck N/A Computed Tomogra phy 10/06/2024 4:29 PM WORKCELL OPERATOR Impressions 10/06/2024 4:41 PM WORKCELL OPERATOR No acute intracranial hemorrhage, large vessel territory infarction, mass effect, or midline shift. Dictated by: Nikolas Vega M.D. The radiology attending physician has personally reviewed this study, and had reviewed and/or edited this written report and agrees with it. Electronically signed by: Johnny Ballesteros M.D, PHD Narrative 10/06/2024 4:41 PM WORKCELL OPERATOR EXAMINATION: CT head without contrast HISTORY: Altered [...] PA Lateral 2 Views (10/06/2024 3:30 PM WORKCELL OPERATOR) Anatomical Region Laterality Modality Body, Chest N/A Computed Radiogr aphy 10/06/2024 3:42 PM WORKCELL OPERATOR Impressions 10/06/2024 3:49 PM WORKCELL OPERATOR Comparison with chest radiograph dated 07/12/2025. Median [...] Luna Perez M.D. Narrative 10/06/2024 3:49 PM WORKCELL OPERATOR EXAMINATION: 2 view chest radiograph Procedure Note [...] it. Electronically signed by: Luna Perez M.D. us Priscilla Sarmiento MD IMG XR PROCEDURES Final Resu lt * ECG 12-LEAD (10/06/2024 1:07 PM WORKCELL OPERATOR) Narrative [facility] - 10/06/2024 1:07 PM WORKCELL OPERATOR Nupur Orozco MD 10/06/2024 1:08 PM ECG 12 lead Date/Time: 10/06/2024 1:07 PM Performed by: Nupur Orozco MD Authorized by: Jaylen Petersen MD Comments: EKG Interpretation Interpreted by ED physician in absence of a staffing and scheduling coordinator Ventricular rate: 65 bpm Rhythm: sinus with PACs [place]: Normal Intervals: 1st degree av block, wide QRS Other findings: no acute ischemia Interpretation: abnormal EKG, LBBB, ectopy Compared to priors: no priors for comparison us Aneta Castellanos MD ECG ORDERABLES Final Result [facility] * POCT glucose (10/06/2024 12:48 PM WORKCELL OPERATOR) Glucose, POC 112 70 - 199 mg/dL Blood 10/06/2024 12:4 8 PM WORKCELL OPERATOR 10/06/2024 12:48 PM WORKCELL OPERATOR us Notinfile Unknown LAB POCT ORDERABLES - DEVICE F inal Result Performing Organization Address City/[facility]/ZIP Co de Phone Number [facility] [place] [address] * eGFR (10/03/2024 4:00 PM WORKCELL OPERATOR) eGFR 73 >=60 mL/min/1. 73 m2 Comment: [...] last reviewed 2021. Blood 10/03/2024 4:00 PM WORKCELL OPERATOR 10/03/2024 4:23 PM WORKCELL OPERATOR us Crescencio Vázquez MD LAB BLOOD ORDERABLES Fi nal Result [facility] Department [place] [address] * Differential, auto (10/03/2024 4:00 PM WORKCELL OPERATOR) Neutrophil abs 3.7 1.5 - 6.5 K/cumm Imm gran abs 0.0 0.0 - 0.1 K/cumm [facility] Lymphocyte abs 1.5 0.8 - 3.3 K/cumm [facility] Monocyte abs 0.4 0.2 - 0.8 K/cumm [facility] Eosinophil abs 0.2 0.0 - 0.5 K/cumm [facility] Basophil abs 0.0 0.0 - 0.1 K/cumm [facility] Neutrophil pct 63.5 % [facility] Comment: Interpretive Data Percent cell count reference ranges are not reported, since discordance with absolute values may lead to misinterpretation of CBC data. Current Interpretive Data was last revised on 2017. Imm gran pct 0.3 % [facility] Comment: Interpretive Data Percent cell count reference ranges are not reported, since discordance with absolute values may lead to misinterpretation of CBC data. Current Interpretive Data was last revised on 2017. Lymphocyte pct 26.0 % [facility] Comment: Interpretive Data Percent cell count reference ranges are not reported, since discordance with absolute values may lead to misinterpretation of CBC data. Current Interpretive Data was last revised on 2017. Monocyte pct 7.1 % [facility] Comment: Interpretive Data Percent cell count reference ranges are not reported, since discordance with absolute values may lead to misinterpretation of CBC data. Current Interpretive Data was last revised on 2017. Eosinophil pct 2.6 % [facility] Comment: Interpretive Data Percent cell count reference ranges are not reported, since discordance with absolute values may lead to misinterpretation of CBC data. Current Interpretive Data was last revised on 2017. Basophil pct 0.5 % [facility] Comment: Interpretive Data Percent cell count reference ranges are not reported, since discordance with absolute values may lead to misinterpretation of CBC data. Current Interpretive Data was last revised on 2017. Blood 10/03/2024 4:00 PM WORKCELL OPERATOR 10/03/2024 4:18 PM WORKCELL OPERATOR Crescencio Vázquez MD LAB BLOOD ORDERABLES Fi nal Result Performing Organization Address [facility]/ZIP Co de Phone Number [facility] Department [place] [address] * (ABNORMAL) CBC with auto differential (10/03/2024 4:00 PM WORKCELL OPERATOR) [facility] WBC 5.8 3.8 - 9.9 K/cumm Hgb 10.8(L) 13.0 - 17.5 g/dL [facility] Hct 32.5(L) 38.9 - 50.3 % [facility] Plt 143(L) 150 - 400 K/cumm [facility] MPV 11.6 9.1 - 12.3 fL [facility] RBC 3.54(L) 4.30 - 5.80 M/cumm [facility] MCV 91.8 81.3 - 96.4 fL [facility] MCH 30.5 27.1 - 33.3 pg [facility] MCHC 33.2 32.3 - 35.7 g/dL [facility] RDW CV 14.4 11.1 - 14.9 % [facility] RDW SD 48.6(H) 35.7 - 48.1 fL [facility] NRBC abs 0.00 0.00 - 0.01 K/cumm [facility] Blood 10/03/2024 4:00 PM WORKCELL OPERATOR 10/03/2024 4:18 PM WORKCELL OPERATOR Crescencio Vázquez MD LAB BLOOD ORDERABLES Fi nal Result Performing Organization Address City/[facility]/ZIP Co de Phone Number [facility] [place] [address] * Basic metabolic panel (10/03/2024 4:00 PM WORKCELL OPERATOR) Pathologist [facility] Sodium 142 135 - 145 mmol/L Potassium, pl 3.8 3.3 - 4.9 mmol/L [facility] Chloride 104 97 - 110 mmol/L [facility] CO2 28 22 - 32 mmol/L [facility] Anion gap 10 2 - 15 mmol/L [facility] BUN 17 6 - 25 mg/dL [facility] Creatinine 1.01 0.80 - 1.30 mg/dL [facility] Glucose 179 70 - 199 mg/dL [facility] Comment: Interpretive Data Fasting glucose >/= [...] 2022. Calcium 8.5 8.5 - 10.3 mg/dL [facility] Blood 10/03/2024 4:00 PM WORKCELL OPERATOR 10/03/2024 4:18 PM WORKCELL OPERATOR us Crescencio Vázquez MD LAB BLOOD ORDERABLES Fi nal Result Performing Organization Address City/[facility]/ZIP Co de Phone Number [facility] [place] [place] [address] * (ABNORMAL) POCT Activated clotting time, low range (10/03/2024 2:14 PM WORKCELL OPERATOR) ACT 181(H) 123 - 168 sec POC Performer [id number] [facility] POC Device Number [id number] [facility] Blood 10/03/2024 2:14 PM WORKCELL OPERATOR 10/03/2024 2:14 PM WORKCELL OPERATOR us Nigel Holman MD LAB POCT ORDERABLES - DEVICE Final Result Performing Organization Address City/[facility]/ZIP Co de Phone Number [facility] [place] [address] * RIGHT AND LEFT HEART CATHETERIZATION (10/03/2024 12:42 PM WORKCELL OPERATOR) Anatomical Region Laterality Modality X-Ray Angiograph y Impressions 10/03/2024 2:26 PM WORKCELL OPERATOR Severe stenosis of the mid LAD with [...] Nigel Holman MD Narrative 10/03/2024 2:26 PM WORKCELL OPERATOR Table formatting from the original result was not included. Procedure: CORONARY ANGIOGRAM / RIGHT HEART CATHETERIZATION/ percutaneous coronary intervention Patient: Ashkan Pryor is a 84 y.o. male : 1940 MR number: [id number] Date of Service: 10/03/2024 Vocational Teacher: Nigel Holman MD Fellow: Crescencio Vázquez MD [...] obtained. The patient was brought to the cathead worker and placed on the table Bilateral groins [...] performed Right heart catheterization preformed with 7 [place] arrow [place] At the end of the procedure, arteriotomy [...] vasodilators and reimage that showed some slight restorationist of flow. Upon review it looks as [...] clotting time, low range (10/03/2024 12:42 PM WORKCELL OPERATOR) [facility] ACT 252(H) 123 - 168 sec POC Performer [id number] [facility] POC Device Number [id number] [facility] Blood 10/03/2024 12:4 2 PM WORKCELL OPERATOR 10/03/2024 12:42 PM WORKCELL OPERATOR Result [facility] Nigel Holman MD LAB POCT ORDERABLES - DEVICE Final Result Performing Organization Address City/[facility]/ZIP Co de Phone Number [facility] Department [place] [address] * Type and screen (10/03/2024 12:20 PM WORKCELL OPERATOR) [facility] Lit, indirect Negative ABO Rh A Positive [facility] Blood 10/03/2024 12:2 0 PM WORKCELL OPERATOR 10/03/2024 12:39 PM WORKCELL OPERATOR Narrative [facility] - 10/03/2024 1:32 PM WORKCELL OPERATOR Has the patient had Daratumumab or Isatuximab in the past 6 months?->Unknown Nigel Holman MD LAB BLOOD BANK TEST ORDERABL ES Final Result Performing Organization Address City/[facility]/ZIP Co de Phone Number [facility] [place] [address] * (ABNORMAL) POCT Activated clotting time, low range (10/03/2024 12:06 PM WORKCELL OPERATOR) Pathologist [facility] ACT 240(H) 123 - 168 sec POC Performer [id number] [facility] POC Device Number [id number] [facility] Blood 10/03/2024 12:0 6 PM WORKCELL OPERATOR 10/03/2024 12:06 PM WORKCELL OPERATOR us Nigel Holman MD LAB POCT ORDERABLES - DEVICE Final Result Performing Organization Address [facility] [place] [address] * (ABNORMAL) POCT oxyhemoglobin (10/03/2024 11:47 AM WORKCELL OPERATOR) [facility] WATCH AND CLOCK REPAIR CLERK Oxyhemoglobin 95.3 >=65.0 % WATCH AND CLOCK REPAIR CLERK Hemoglobin 11.7(L) 13.0 - 17.5 g/dL [facility] WATCH AND CLOCK REPAIR CLERK O2 content 15.5 15.0 - 22.0 Vol % [facility] Anatomic Site aPOC Aorta descend [facility] Blood 10/03/2024 11:4 7 AM WORKCELL OPERATOR 10/03/2024 11:47 AM WORKCELL OPERATOR us Nigel Holman MD LAB POCT ORDERABLES - DEVICE Final Result Performing Organization Address City/[facility]/ZIP Co de Phone Number [facility] [place] [address] * (ABNORMAL) POCT oxyhemoglobin (10/03/2024 11:45 AM WORKCELL OPERATOR) [facility] WATCH AND CLOCK REPAIR CLERK Oxyhemoglobin 67.9 >=65.0 % WATCH AND CLOCK REPAIR CLERK Hemoglobin 11.0(L) 13.0 - 17.5 g/dL [facility] WATCH AND CLOCK REPAIR CLERK O2 content 10.4(L) 15.0 - 22.0 Vol % [facility] Anatomic Site aPOC Pulm Art main [facility] Blood 10/03/2024 11:4 5 AM WORKCELL OPERATOR 10/03/2024 11:45 AM WORKCELL OPERATOR us Nigel Holman MD LAB POCT ORDERABLES - DEVICE Final Result Performing Organization Address City/[facility]/ZIP Co de Phone Number [facility] Department [place] [address] * (ABNORMAL) CBC without differential (10/03/2024 11:45 AM WORKCELL OPERATOR) WBC 6.8 3.8 - 9.9 K/cumm Hgb 11.3(L) 13.0 - 17.5 g/dL [facility] Hct 34.2(L) 38.9 - 50.3 % [facility] Plt 142(L) 150 - 400 K/cumm [facility] MPV 11.3 9.1 - 12.3 fL [facility] RBC 3.65(L) 4.30 - 5.80 M/cumm [facility] MCV 93.7 81.3 - 96.4 fL [facility] MCH 31.0 27.1 - 33.3 pg [facility] MCHC 33.0 32.3 - 35.7 g/dL [facility] RDW CV 14.1 11.1 - 14.9 % [facility] RDW SD 49.1(H) 35.7 - 48.1 fL [facility] NRBC abs 0.00 0.00 - 0.01 K/cumm [facility] Blood 10/03/2024 11:4 5 AM WORKCELL OPERATOR 10/03/2024 11:51 AM WORKCELL OPERATOR Narrative [facility] - 10/03/2024 12:12 PM WORKCELL OPERATOR To be drawn after hydration bolus complete us Nigel Holman MD LAB BLOOD ORDERABLES Final R esult Performing Organization Address City/[facility]/ZIP Co de Phone Number [facility] Department [place] [address] * (ABNORMAL) POCT oxyhemoglobin (10/03/2024 11:44 AM WORKCELL OPERATOR) [facility] WATCH AND CLOCK REPAIR CLERK Oxyhemoglobin 69.1 >=65.0 % WATCH AND CLOCK REPAIR CLERK Hemoglobin 11.3(L) 13.0 - 17.5 g/dL [facility] WATCH AND CLOCK REPAIR CLERK O2 content 10.9(L) 15.0 - 22.0 Vol % [facility] Anatomic Site aPOC Pulm Art main [facility] Blood 10/03/2024 11:4 4 AM WORKCELL OPERATOR 10/03/2024 11:44 AM WORKCELL OPERATOR Nigel Holman MD LAB POCT ORDERABLES - DEVICE Final Result Performing Organization Address City/[facility]/ZIP Co de Phone Number [facility] Department [place] [address] * POCT glucose (10/03/2024 8:45 AM WORKCELL OPERATOR) [facility] Glucose, POC 117 70 - 199 mg/dL Blood 10/03/2024 8:45 AM WORKCELL OPERATOR 10/03/2024 8:45 AM WORKCELL OPERATOR Nigel Holman MD LAB POCT ORDERABLES - DEVICE Final Result Performing Organization Address City/[facility] Co de Phone Number [facility] Department [place] [address] * Basic metabolic panel (09/29/2024 9:42 AM WORKCELL OPERATOR) [facility] Glucose 99 65 - 99 mg/dL [facility] Comment: Fasting reference interval BUN 23 7 - 25 mg/dL [facility] Creatinine 0.96 0.70 - 1.22 mg/dL [facility] eGFR 77 > OR = 60 mL/min/1.7 3m2 [facility] BUN/creat ratio SEE NOTE: 6 (calc) [facility] Comment: Not Reported: BUN and Creatinine are within reference range. Sodium 142 135 - 146 mmol/L [facility] Potassium, pl 4.0 3.5 - 5.3 mmol/L [facility] Chloride 103 98 - 110 mmol/L [facility] CO2 32 20 - 32 mmol/L [facility] Calcium 8.9 8.6 - 10.3 mg/dL [facility] Blood 09/29/2024 9:42 AM WORKCELL OPERATOR 09/29/2024 9:42 AM WORKCELL OPERATOR Rehan Sheth MD LAB BLOOD ORDERABLES F inal Result [facility] [address] [place] [address] * (ABNORMAL) eGFR (09/24/2024 5:03 PM WORKCELL OPERATOR) eGFR 55(L) >=60 mL/min/1. 73 m2 Comment: [...] last reviewed 2021. Blood 09/24/2024 5:03 PM WORKCELL OPERATOR 09/24/2024 5:24 PM WORKCELL OPERATOR Rehan Sheth MD LAB BLOOD ORDERABLES F inal Result [facility] Department [place] [address] * Differential, auto (09/24/2024 5:03 PM WORKCELL OPERATOR) Neutrophil abs 3.6 1.5 - 6.5 K/cumm Imm gran abs 0.0 0.0 - 0.1 K/cumm [facility] Lymphocyte abs 1.9 0.8 - 3.3 K/cumm [facility] Monocyte abs 0.6 0.2 - 0.8 K/cumm [facility] Eosinophil abs 0.2 0.0 - 0.5 K/cumm [facility] Basophil abs 0.0 0.0 - 0.1 K/cumm [facility] Neutrophil pct 56.5 % [facility] Comment: Interpretive Data Percent cell count reference ranges are not reported, since discordance with absolute values may lead to misinterpretation of CBC data. Current Interpretive Data was last revised on 2017. Imm gran pct 0.6 % [facility] Comment: Interpretive Data Percent cell count reference ranges are not reported, since discordance with absolute values may lead to misinterpretation of CBC data. Current Interpretive Data was last revised on 2017. Lymphocyte pct 30.0 % [facility] Comment: Interpretive Data Percent cell count reference ranges are not reported, since discordance with absolute values may lead to misinterpretation of CBC data. Current Interpretive Data was last revised on 2017. Monocyte pct 9.1 % [facility] Comment: Interpretive Data Percent cell count reference ranges are not reported, since discordance with absolute values may lead to misinterpretation of CBC data. Current Interpretive Data was last revised on 2017. Eosinophil pct 3.3 % [facility] Comment: Interpretive Data Percent cell count reference ranges are not reported, since discordance with absolute values may lead to misinterpretation of CBC data. Current Interpretive Data was last revised on 2017. Basophil pct 0.5 % [facility] Comment: Interpretive Data Percent cell count reference ranges are not reported, since discordance with absolute values may lead to misinterpretation of CBC data. Current Interpretive Data was last revised on 2017. Blood 09/24/2024 5:03 PM WORKCELL OPERATOR 09/24/2024 5:24 PM WORKCELL OPERATOR Rehan Sheth MD LAB BLOOD ORDERABLES F inal Result Performing Organization Address City/State/[facility] Co de Phone Number [facility] Department [place] [address] * (ABNORMAL) Pro B-type natriuretic peptide (09/24/2024 5:03 PM WORKCELL OPERATOR) NT-proBNP 2,036(H) <=450 pg/mL Comment: Interpretive Comments: [...] Revised Date: 2018. Blood 09/24/2024 5:03 PM WORKCELL OPERATOR 09/24/2024 5:24 PM WORKCELL OPERATOR Rehan Sheth MD LAB BLOOD ORDERABLES F inal Result Performing Organization Address City/[facility] de Phone Number [facility] Department [place] [address] * (ABNORMAL) CBC with auto differential (09/24/2024 5:03 PM WORKCELL OPERATOR) [facility] WBC 6.3 3.8 - 9.9 K/cumm Hgb 11.7(L) 13.0 - 17.5 g/dL [facility] Hct 35.3(L) 38.9 - 50.3 % [facility] Plt 184 150 - 400 K/cumm [facility] MPV 11.3 9.1 - 12.3 fL [facility] RBC 3.76(L) 4.30 - 5.80 M/cumm [facility] MCV 93.9 81.3 - 96.4 fL [facility] MCH 31.1 27.1 - 33.3 pg [facility] MCHC 33.1 32.3 - 35.7 g/dL [facility] RDW CV 14.6 11.1 - 14.9 % [facility] RDW SD 50.4(H) 35.7 - 48.1 fL [facility] NRBC abs 0.00 0.00 - 0.01 K/cumm [facility] Blood 09/24/2024 5:03 PM WORKCELL OPERATOR 09/24/2024 5:24 PM WORKCELL OPERATOR Rehan Sheth MD LAB BLOOD ORDERABLES F inal Result Performing Organization Address [facility] Co de Phone Number [facility] Department [place] [address] * (ABNORMAL) Basic metabolic panel (09/24/2024 5:03 PM WORKCELL OPERATOR) [facility] Sodium 145 135 - 145 mmol/L Potassium, pl 3.7 3.3 - 4.9 mmol/L [facility] Chloride 107 97 - 110 mmol/L [facility] CO2 30 22 - 32 mmol/L [facility] Anion gap 8 2 - 15 mmol/L [facility] BUN 31(H) 6 - 25 mg/dL [facility] Creatinine 1.27 0.80 - 1.30 mg/dL [facility] Glucose 89 70 - 199 mg/dL [facility] Comment: Interpretive Data Fasting glucose >/= [...] 2022. Calcium 9.0 8.5 - 10.3 mg/dL [facility] Blood 09/24/2024 5:03 PM WORKCELL OPERATOR 09/24/2024 5:24 PM WORKCELL OPERATOR Rehan Sheth MD LAB BLOOD ORDERABLES F inal Result [facility] Department [place] [address] * ECG 12 lead (09/24/2024 4:01 PM WORKCELL OPERATOR) Rehan Sehth MD ECG ORDERABLES Edited Result - Final * eGFR (09/14/2024 8:23 AM WORKCELL OPERATOR) eGFR 63 >=60 mL/min/1. 73 m2 Comment: [...] last reviewed 2021. Blood 09/14/2024 8:23 AM WORKCELL OPERATOR 09/14/2024 8:45 AM WORKCELL OPERATOR us Dalila Torres MD LAB BLOOD ORDERABLES Fi nal Result [facility] Department [place] [address] * (ABNORMAL) Basic metabolic panel (09/14/2024 8:23 AM WORKCELL OPERATOR) Sodium 140 135 - 145 mmol/L Potassium, pl 4.0 3.3 - 4.9 mmol/L [facility] Chloride 104 97 - 110 mmol/L [facility] CO2 27 22 - 32 mmol/L [facility] Anion gap 9 2 - 15 mmol/L [facility] BUN 28(H) 6 - 25 mg/dL [facility] Creatinine 1.14 0.80 - 1.30 mg/dL [facility] Glucose 108 70 - 199 mg/dL [facility] Comment: Interpretive Data Fasting glucose >/= [...] Calcium 8.8 8.5 - 10.3 mg/dL [facility] Blood 09/14/2024 8:23 AM WORKCELL OPERATOR 09/14/2024 8:45 AM WORKCELL OPERATOR us Dalila Torres MD LAB BLOOD ORDERABLES Fi nal Result [facility] [place] [address] * (ABNORMAL) Hemoglobin A1c (06/07/2024 8:38 AM CDT) Hgb A1C 6.1(H) 4.0 - 5.6 % Estimated Average Glucose 128 mg/dL [facility] Comment: The ADA recommends reporting an estimated Average Glucose (eAG) with all Hemoglobin A1c results using the equation derived from a study of 507 normal and diabetic adults. Minority populations were underrepresented and children were not included. (Diabetes Care 31:7456-2541, 2008). The eAG is not equivalent to a fasting glucose. Blood 06/07/2024 8:38 AM CDT 06/07/2024 9:07 AM CDT us Joe Hood MD LAB BLOOD ORDER MAITE Final Result [facility] [address] [facility] [place] [address] * Lipid panel (06/07/2024 8:38 AM CDT) [...] LAB BLOOD ORDER MAITE Final Result ORA [id number] [facility] Department of Laboratories [place], [place] [id number] * DIABETES FOOT EXAM (11/05/2020) Diabetic Foot Exam Normal Historical Provider HEALTH MAINTENANCE Final Result * DIABETES EYE EXAM (05/05/2019) Diabetic Eye Exam Normal Historical Provider HEALTH MAINTENANCE Final Result from Last 3 Months or Most Recently Relevant to Health Maintenance Insurance [employer] CHOICE MEDICARE PPO [facility] MEDICARE ADVANTAGE [place] [id number] UHC MEDICARE ADVANTAGE Advance Directives For more information, please contact: [phone] Documents on File Type Date Recorded Patient Electrical Maintenance Man Expl anation ADVANCE DIRECTIVE 12/27/2023 10:41 PM Jorge Villa OWER OF FOOD PREPARER-MEDICAL ADVANCE DIRECTIVE 12/26/2023 10:38 AM Yazmin Medina POWER OF FOOD PREPARER-FINANCIAL * Full Code (Latest Code Status on [...] Medina Daughter First Alternate Health Care Agent [email or web address] Care Teams Life Manager Relationship Specialty Start Date End Date Barry Ralph MD PCP - General Family Practice 05/22/24 Rehan Sheth MD [address] [address] Consulting Physician Cardiology 09/09/24
--- NOTE | 2024-12-13 08:50 | ECG_ITS ---
Test Date: 2024-12-13 08:53:48 Measurements Intervals Douglas Rate: 103 P: 105 MS: 210 QRS: 107 QRSD: 164 T: -14 QT: 407 QTc: 534 Interpretive Statements SINUS TACHYCARDIA WITH FIRST DEGREE AV BLOCK RIGHT AXIS DEVIATION LEFT BUNDLE BRANCH BLOCK BASELINE ARTIFACT- I, II, III, AVR, AVL ,AVF, V1-V6 ABNORMAL ECG Compared to ECG 09/21/2024 07:24:15 HEART RATE HAS INCREASED Electronically Signed On 12-13-2024 13:04:13 CDT by Isaiah Burk D.O.
--- OUTSIDE RECORDS SUMMARY | 2024-12-13 09:02 | XMS_ITS | Clinical Summary ---
Author Organization Unknown Care Team Providers Care Leaded Glass Installer Name Role Phone JACOB COMBS, MIRACLE Unavailable Unavailable ELOY RN, JONATHAN Unavailable Unavailfritz VYAS LPN, MINISTERIO Unavailable Unavailable KENDALL PT, PJ Unavailable Unavailable CARLOS OT, BETO Unavailable Unavailable MARLEN TECHNOLOGY EDUCATION INSTRUCTOR, ALVARO Unavailable Unavailable Payers Payer Name Policy Type Policy Number Effective Date Expira tion Date [id number].[id number].H JUANA.GENAAUTH [id number] Problems Condition Name Condition Details Condition Category [...] 10-18 00:00: 00 ATHSCL HEART DISEASE OF [place] CORONARY ARTERY W/O ANG PCTRS Active 10-18 00:00: 00 NONRHEUMATIC AORTIC VALVE DISORDER, UNSPECIFIED Active 10-18 00:00: 00 PRSNL HX OF TIA (TIA), AND 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 Active 10-18 00:00: 00 PRESENCE OF CORONARY ANGIOPLASTY IMPLANT AND GRAFT Active 10-18 00:00: 00 LONGTERM (CURRENT) USE OF ANTICOAGULAN TS Active 10-31 00:00: 00 LONGTERM (CURRENT) USE OF ANTITHROMBOT ICS/ANTIPLAT ELETS Active [...] 5 mg tablet 2-24 00:00: 00 Yes [id number] ANXIETY 1 tablet 2 TIMES DAILY 1 tablet 2 TIMES DAILY (route: oral) Med Classific ation: Central Nervous System Agents potassium chloride ER 20 mEq tablet,exte nded release 09-29 00:00: 00 Yes [id number] SUPPLEMENT 1 tablet DAILY 1 tablet DAILY (route: oral) Med Classific ation: Electroly te Balance-N utritiona l Products acetaminoph en 325 mg tablet 10-31 00:00: 00 Yes [id number] NEEDED FOR MILD PAIN 2 tablet EVERY 6 HOURS 2 tablet EVERY 6 HOURS (route: oral) Med Classific ation: Analgesic , Anti-infl ammatory or Antipyret ic albuterol sulfate HFA 90 mcg/actuati on aerosol inhaler 10-31 00:00: 00 Yes [id number] NEEDED FOR SOB 1 puff EVERY 4 HOURS 1 puff EVERY 4 HOURS (route: inhalation ) Med Classific ation: Respirato ry Therapy Agents atorvastati n 80 mg tablet 10-31 00:00: 00 Yes [id number] CHOLESTEROL 1 tablet DAILY 1 tablet DAILY (route: oral) Med Classific ation: Cardiovas cular Therapy Agents carvedilol 25 mg tablet 10-31 00:00: 00 Yes [id number] HIGH BLOOD PRESSURE 1 tablet 2 TIMES DAILY 1 tablet 2 TIMES DAILY (route: oral) Med Classific ation: Cardiovas cular Therapy Agents clopidogrel 75 mg tablet 10-31 00:00: 00 Yes [id number] BLOOD THINNER 1 tablet DAILY 1 tablet DAILY (route: oral) Med Classific ation: Hematolog ical Agents Eliquis 5 mg tablet 10-31 00:00: 00 Yes [id number] BLOOD THINNER 1 tablet 2 TIMES DAILY 1 tablet 2 TIMES DAILY (route: oral) Med Classific ation: Hematolog ical Agents furosemide 40 mg tablet 10-31 00:00: 00 11-07 23:59 :00 No [id number] FLUID OVERLOAD 1 tablet 2 TIMES DAILY 1 tablet 2 TIMES DAILY (route: oral) Med Classific ation: Cardiovas cular Therapy Agents losartan 25 mg tablet 10-31 00:00: 00 Yes [id number] HIGH BLOOD PRESSURE 1 tablet DAILY 1 tablet DAILY (route: oral) Med Classific ation: Cardiovas cular Therapy Agents melatonin 5 mg chewable tablet 10-31 00:00: 00 Yes [id number] SLEEP SUPPLEMENT 1 tablet BEDTIME 1 tablet BEDTIME (route: oral) Med Classific ation: Central Nervous System Agents methocarbam ol 500 mg tablet 10-31 00:00: 00 Yes [id number] NEEDED FOR MUSCLE SPASMS 1 tablet 2 TIMES DAILY 1 tablet 2 TIMES DAILY (route: oral) Med Classific ation: Locomotor System paroxetine 20 mg tablet 10-31 00:00: 00 Yes [id number] ANXIETY 1 tablet DAILY 1 tablet DAILY (route: oral) Med Classific ation: Central Nervous System Agents trazodone 50 mg tablet 10-31 00:00: 00 Yes [id number] SLEEP 1 tablet BEDTIME 1 tablet BEDTIME [...] ARTHUR JAMES. RN TO OBSERVE AND ASSESS, CIVIL SERVICE WORKER/HOOKER OPERATOR TO OBSERVE FOR RISK FOR FALLS AND INSTRUCT IN FALL PREVENTION, HOME SAFETY, MEDICATION MANAGEMENT, INFECTION PREVENTION, AND NUTRITION MANAGEMENT. RN/CIVIL SERVICE WORKER/HOOKER OPERATOR NURSE MAY PERFORM O2 SATURATION LEVEL ON ADMISSION AND PRN FOR FOR RN TO ASSESS/CIVIL SERVICE WORKER TO OBSERVE PATIENT, WITH NOTIFICATION TO THE PHYSICIAN IF SATURATION IS 90% IN THE ABSENCE OF MORE SPECIFIC PARAMETERS FROM THE PHYSICIAN. AGENCY MAY PERFORM A RESUMPTION OF CARE VISIT FOLLOWING ANY HOSPITAL ADMISSION. RN/CIVIL SERVICE WORKER/HOOKER OPERATOR TO MONITOR CO-MORBID CONDITIONS LISTED ON THE PLAN OF CARE AND ANY NEW CONDITIONS THAT PRESENT THEMSELVES DURING THIS EPISODE TO IDENTIFY CHANGES AND INTERVENE TO MINIMIZE COMPLICATIONS. PATIENT HAS PAST MEDICAL HISTORY OF CAROTID DISEASE BILATERAL, CEREBELLA STROKE, ACUTE, CEREBRAL INFARCTION, AFIB, NSTEMI, CHF, COPD, DMII, . [facility] CL[facility] WILL MONITOR PATIENTFOR SIGNS AND SYMPTOMS OF EXACERBATION OF THESE DIAGNOSES AND WILL NOTIFY PROVIDER OF ANY CONCERNS OR CHANGES THAT ARISE. [code = RN TO OBSERVE, ASSESS, EVALUATE, AND DEVELOP AN INDIVIDUALIZED PLAN OF CARE. AGENCY MAY ACCEPT ORDERS FROM CONSULTING ARTHUR JAMES. RN TO OBSERVE AND ASSESS, CIVIL SERVICE WORKER/HOOKER OPERATOR TO OBSERVE FOR RISK FOR FALLS AND INSTRUCT IN FALL PREVENTION, HOME SAFETY, MEDICATION MANAGEMENT, INFECTION PREVENTION, AND NUTRITION MANAGEMENT. RN/CIVIL SERVICE WORKER/HOOKER OPERATOR NURSE MAY PERFORM O2 SATURATION LEVEL ON ADMISSION AND PRN FOR FOR RN TO ASSESS/CIVIL SERVICE WORKER TO OBSERVE PATIENT, WITH NOTIFICATION TO THE PHYSICIAN IF SATURATION IS 90% IN THE ABSENCE OF MORE SPECIFIC PARAMETERS FROM THE PHYSICIAN. AGENCY MAY PERFORM A RESUMPTION OF CARE VISIT FOLLOWING ANY HOSPITAL ADMISSION. RN/CIVIL SERVICE WORKER/HOOKER OPERATOR TO MONITOR CO-MORBID CONDITIONS LISTED ON THE PLAN OF CARE AND ANY NEW CONDITIONS THAT PRESENT THEMSELVES DURING THIS EPISODE TO IDENTIFY CHANGES AND INTERVENE TO MINIMIZE COMPLICATIONS. PATIENT HAS PAST MEDICAL HISTORY OF CAROTID DISEASE BILATERAL, CEREBELLA STROKE, ACUTE, CEREBRAL INFARCTION, AFIB, NSTEMI, CHF, COPD, DMII, . [facility] WILL MONITOR PATIENTFOR SIGNS [...] WEAKNESS ] Future Scheduled Test MEDICATION MANAGEMENT; RN/CIVIL SERVICE WORKER/HOOKER OPERATOR TO REVIEW MEDICATIONS FOR INTERACTIONS, EFFECTIVENESS OF DRUG THERAPY, AND SIGNS/SYMPTOMS OF ADVERSE REACTIONS. MAY INSTRUCT AND REINFORCE MEDICATION TEACHING RELATED TO THE USE OF MEDICATIONS, DOSAGE, FREQUENCY, PURPOSE, SIDE EFFECTS, AND TO REPORT COMPLICATIONS. [code = MEDICATION MANAGEMENT; RN/CIVIL SERVICE WORKER/HOOKER OPERATOR TO REVIEW MEDICATIONS FOR INTERACTIONS, EFFECTIVENESS OF DRUG THERAPY, AND SIGNS/SYMPTOMS OF ADVERSE REACTIONS. MAY INSTRUCT AND REINFORCE MEDICATION TEACHING RELATED TO THE USE OF MEDICATIONS, DOSAGE, FREQUENCY, PURPOSE, SIDE EFFECTS, AND TO REPORT COMPLICATIONS.] Future Scheduled Test ANTICOAGUL ATION MANAGEMENT; RN TO ASSESS AND TEACH, CIVIL SERVICE WORKER/HOOKER OPERATOR TO OBSERVE/TEACH/MONITOR EFFECTIVENESS OF ANTICOAGULATION THERAPY. RN/CIVIL SERVICE WORKER/HOOKER OPERATOR TO INSTRUCT ON SIGNS AND SYMPTOMS OF BLEEDING/ADVERSE REACTIONS TO REPORT TO PHYSICIAN. [code = ANTICOAGULATION MANAGEMENT; RN TO ASSESS AND TEACH, CIVIL SERVICE WORKER/HOOKER OPERATOR TO OBSERVE/TEACH/MONITOR EFFECTIVENESS OF ANTICOAGULATION THERAPY. RN/CIVIL SERVICE WORKER/HOOKER OPERATOR TO INSTRUCT ON SIGNS AND SYMPTOMS OF BLEEDING/ADVERSE REACTIONS TO REPORT TO PHYSICIAN. ] Future Scheduled Test RESPIRATOR Y SYSTEM MANAGEMENT; RN TO ASSESS AND TEACH, CIVIL SERVICE WORKER/HOOKER OPERATOR TO OBSERVE AND TEACH RELATED TO ALTERED RESPIRATORY STATUS TO MINIMIZE COMPLICATIONS AND REDUCE HOSPITALIZATION. [code = RESPIRATORY SYSTEM MANAGEMENT; RN TO ASSESS AND TEACH, CIVIL SERVICE WORKER/HOOKER OPERATOR TO OBSERVE AND TEACH RELATED TO ALTERED RESPIRATORY STATUS TO MINIMIZE COMPLICATIONS AND REDUCE HOSPITALIZATION.] Future Scheduled Test COPD MANAG EMENT; RN TO ASSESS AND TEACH, CIVIL SERVICE WORKER/HOOKER OPERATOR TO OBSERVE AND TEACH SIGNS/SYMPTOMS OF COPD EXACERBATION AND PROVIDE EARLY INTERVENTIONS TO MINIMIZE RISK OF HOSPITALIZATION. RN/CIVIL SERVICE WORKER/HOOKER OPERATOR TO INSTRUCT ON SELF-CARE MANAGEMENT INCLUDING BREATHING TECHNIQUES, AIRWAY CLEARANCE, AND PROPER USE OF COPD MEDICATIONS. RN TO ASSESS AND TEACH, CIVIL SERVICE WORKER/HOOKER OPERATOR TO OBSERVE AND TEACH PATIENT/CAREGIVER ABILITY TO MONITOR AND RECORD VITAL SIGNS INCLUDING PULSE OXIMETRY AND BLOOD PRESSURE. PULSE OXIMETER AND BP MONITOR TO BE PROVIDED IF NEEDED [code = COPD MANAGEMENT; RN TO ASSESS AND TEACH, CIVIL SERVICE WORKER/HOOKER OPERATOR TO OBSERVE AND TEACH SIGNS/SYMPTOMS OF COPD EXACERBATION AND PROVIDE EARLY INTERVENTIONS TO MINIMIZE RISK OF HOSPITALIZATION. RN/CIVIL SERVICE WORKER/HOOKER OPERATOR TO INSTRUCT ON SELF-CARE MANAGEMENT INCLUDING BREATHING TECHNIQUES, AIRWAY CLEARANCE, AND PROPER USE OF COPD MEDICATIONS. RN TO ASSESS AND TEACH, CIVIL SERVICE WORKER/HOOKER OPERATOR TO OBSERVE AND TEACH PATIENT/CAREGIVER ABILITY TO MONITOR AND RECORD VITAL SIGNS INCLUDING PULSE OXIMETRY AND BLOOD PRESSURE. PULSE OXIMETER AND BP MONITOR TO BE PROVIDED IF NEEDED ] Future Scheduled Test FALL REDUC TION MANAGEMENT; RN TO ASSESS AND OBSERVE, CIVIL SERVICE WORKER/HOOKER OPERATOR TO OBSERVE FALL RISK FACTORS AND EDUCATE PATIENT/CAREGIVER ON STRATEGIES TO MINIMIZE THE RISK OF FALLING. [code = FALL REDUCTION MANAGEMENT; RN TO ASSESS AND OBSERVE, CIVIL SERVICE WORKER/HOOKER OPERATOR TO OBSERVE FALL RISK FACTORS AND EDUCATE PATIENT/CAREGIVER ON STRATEGIES TO MINIMIZE THE RISK OF FALLING.] Future Scheduled Test DIABETES M ANAGEMENT; RN TO ASSESS AND TEACH, HOOKER OPERATOR/CIVIL SERVICE WORKER TO OBSERVE AND TEACH INSTRUCTIONS OF DIABETIC CARE TO INCLUDE: DIET DIABETIC, SKIN CARE, SIGNS AND SYMPTOMS OF HYPO/HYPERGLYCEMIA, PROPER ADMINISTRATION OF DIABETIC MEDICATION. RN/HOOKER OPERATOR/CIVIL SERVICE WORKER TO INSTRUCT ON DIABETIC FOOT CARE AND MONITOR FOR SKIN LESIONS ON LOWER EXTREMITIES. BLOOD GLUCOSE TESTING 4X DAILY FREQ. RN TO ASSESS AND TEACH, HOOKER OPERATOR/CIVIL SERVICE WORKER TO OBSERVE AND TEACH PATIENT/CAREGIVER ABILITY TO PERFORM AND RECORD BLOOD GLUCOSE TESTING ORDERED AND TO REPORT ABNORMAL FINDINGS TO PHYSICIAN. RN/HOOKER OPERATOR/CIVIL SERVICE WORKER MAY PERFORM BLOOD GLUCOSE TEST NEEDED. RN/HOOKER OPERATOR/CIVIL SERVICE WORKER TO REPORT TO PHYSICIAN BLOOD GLUCOSE READINGS GREATER THAN 350 OR LESS THAN 80 RN/HOOKER OPERATOR/CIVIL SERVICE WORKER TO INSTRUCT PATIENT ON IMPORTANCE OF HGBA1C MONITORING, KIDNEY FUNCTION TEST, EYE AND FOOT EXAMS. [code = DIABETES MANAGEMENT; RN TO ASSESS AND TEACH, HOOKER OPERATOR/CIVIL SERVICE WORKER TO OBSERVE AND TEACH INSTRUCTIONS OF DIABETIC CARE TO INCLUDE: DIET DIABETIC, SKIN CARE, SIGNS AND SYMPTOMS OF HYPO/HYPERGLYCEMIA, PROPER ADMINISTRATION OF DIABETIC MEDICATION. RN/HOOKER OPERATOR/CIVIL SERVICE WORKER TO INSTRUCT ON DIABETIC FOOT CARE AND MONITOR FOR SKIN LESIONS ON LOWER EXTREMITIES. BLOOD GLUCOSE TESTING 4X DAILY FREQ. RN TO ASSESS AND TEACH, HOOKER OPERATOR/CIVIL SERVICE WORKER TO OBSERVE AND TEACH PATIENT/CAREGIVER ABILITY TO PERFORM AND RECORD BLOOD GLUCOSE TESTING ORDERED AND TO REPORT ABNORMAL FINDINGS TO PHYSICIAN. RN/HOOKER OPERATOR/CIVIL SERVICE WORKER MAY PERFORM BLOOD GLUCOSE TEST NEEDED. RN/HOOKER OPERATOR/CIVIL SERVICE WORKER TO REPORT TO PHYSICIAN BLOOD GLUCOSE READINGS GREATER THAN 350 OR LESS THAN 80 RN/HOOKER OPERATOR/CIVIL SERVICE WORKER TO INSTRUCT PATIENT ON IMPORTANCE OF HGBA1C MONITORING, KIDNEY FUNCTION TEST, EYE AND FOOT EXAMS.] Future Scheduled Test PAIN MANAG EMENT; RN TO ASSESS AND TEACH, HOOKER OPERATOR/CIVIL SERVICE WORKER TO OBSERVE AND TEACH AND PROVIDE EDUCATION ON PAIN MANAGEMENT TECHNIQUES. [code = PAIN MANAGEMENT; RN TO ASSESS AND TEACH, HOOKER OPERATOR/CIVIL SERVICE WORKER TO OBSERVE AND TEACH AND PROVIDE EDUCATION ON PAIN MANAGEMENT TECHNIQUES.] Future Scheduled Test RISK FOR H OSPITALIZATION; RN TO ASSESS/TEACH, HOOKER OPERATOR/CIVIL SERVICE WORKER TO OBSERVE/TEACH PATIENT/CAREGIVER ON RISK FOR HOSPITALIZATION/EMERGENCY ROOM VISITS, TEACH SIGNS AND SYMPTOMS THAT PUT PATIENT AT RISK, WHEN TO NOTIFY NURSE/PHYSICIAN OF COMPLICATIONS/DECLINE, AND WHEN TO CALL 911. [code = RISK FOR HOSPITALIZATION; RN TO ASSESS/TEACH, HOOKER OPERATOR/CIVIL SERVICE WORKER TO OBSERVE/TEACH PATIENT/CAREGIVER ON RISK FOR HOSPITALIZATION/EMERGENCY ROOM VISITS, TEACH SIGNS AND SYMPTOMS THAT PUT PATIENT AT RISK, WHEN TO NOTIFY NURSE/PHYSICIAN OF COMPLICATIONS/DECLINE, AND WHEN TO CALL 911.] Future Scheduled Test CARDIOVASC ULAR SYSTEM; RN TO ASSESS/TEACH, CIVIL SERVICE WORKER/HOOKER OPERATOR TO OBSERVE/TEACH RELATED TO ALTERED CARDIOVASCULAR STATUS TO MINIMIZE COMPLICATIONS AND REDUCE HOSPITALIZATION. [code = CARDIOVASCULAR SYSTEM; RN TO ASSESS/TEACH, CIVIL SERVICE WORKER/HOOKER OPERATOR TO OBSERVE/TEACH RELATED TO ALTERED CARDIOVASCULAR STATUS TO MINIMIZE COMPLICATIONS AND REDUCE HOSPITALIZATION.] Future Scheduled Test HYPERTENSI ON MANAGEMENT; RN TO ASSESS AND TEACH, CIVIL SERVICE WORKER/HOOKER OPERATOR TO OBSERVE AND TEACH WARNING SIGNS AND SYMPTOMS TO AVOID HOSPITALIZATION. [code = HYPERTENSION MANAGEMENT; RN TO ASSESS AND TEACH, CIVIL SERVICE WORKER/HOOKER OPERATOR TO OBSERVE AND TEACH WARNING SIGNS AND SYMPTOMS TO AVOID HOSPITALIZATION. ] Future Scheduled Test ARRHYTHMIA MANAGEMENT; RN TO ASSESS AND TEACH, CIVIL SERVICE WORKER/HOOKER OPERATOR TO OBSERVE AND TEACH WARNING SIGNS AND SYMPTOMS TO AVOID HOSPITALIZATION. [code = ARRHYTHMIA MANAGEMENT; RN TO ASSESS AND TEACH, CIVIL SERVICE WORKER/HOOKER OPERATOR TO OBSERVE AND TEACH WARNING SIGNS AND SYMPTOMS TO AVOID HOSPITALIZATION. ] Future Scheduled Test AGENCY MAY PERFORM A RESUMPTION OF CARE VISIT FOLLOWING ANY HOSPITAL ADMISSION. PT TO EVALUATE, OBSERVE / ASSESS, AND MONITOR, TECHNOLOGY EDUCATION INSTRUCTOR TO OBSERVE AND MONITOR, PROVIDE SKILLED THERAPEUTIC INTERVENTION, ACTIVITY, EDUCATION, AND TRAINING TO ADDRESS; PT/TECHNOLOGY EDUCATION INSTRUCTOR TO PROVIDE GAIT TRAINING FOR IMPROVED MOBILITY AND /OR TO NORMALIZE GAIT PATTERN NEUROMUSCULAR RE-EDUCATION / BALANCE / POSTURAL CONTROL (PT) PT/TECHNOLOGY EDUCATION INSTRUCTOR TO PROVIDE STAIR TRAINING SIT TO/FROM STAND TRANSFERS (PT/TECHNOLOGY EDUCATION INSTRUCTOR) PT TO ASSESS / TECHNOLOGY EDUCATION INSTRUCTOR TO MONITOR FOR AND REPORT EARLY SIGNS OF ANTICOAGULANT TOXICITY TO THE PHYSICIAN AND/OR THE RN CLINICAL ZINC SKIMMER FOR PHYSICIAN NOTIFICATION AND TO PROVIDE PATIENT/CAREGIVER EDUCATION ON ANTICOAGULANT THERAPY PT / TECHNOLOGY EDUCATION INSTRUCTOR TO MONITOR FOR HYPO/HYPERGLYCEMIA AND CONDUCT ROUTINE FOOT INSPECTIONS. RECORD PATIENT REPORTED BLOOD SUGAR LEVELS AND NOTIFY PHYSICIAN AND/OR THE RN CLINICAL ZINC SKIMMER FOR PHYSICIAN NOTIFICATION IF BLOOD SUGAR LEVELS ARE OUTSIDE ORDERED PARAMETERS. TEACH PATIENT/CAREGIVER ON DAILY FOOT INSPECTIONS PT TO ASSESS / TECHNOLOGY EDUCATION INSTRUCTOR TO MONITOR FOR HEART FAILURE EXACERBATION AND RECORD PATIENT REPORTED WEIGHT, AND NOTIFY THE PHYSICIAN AND/OR THE RN CLINICAL ZINC SKIMMER FOR PHYSICIAN NOTIFICATION OF HF EXACERBATION (2LB WEIGHT GAIN IN 1 DAY, 5LBS IN A WEEK OR 5 LBS OVER BASELINE; INCREASED SOB, EDEMA, NEEDING MORE PILLOWS AT NIGHT, CRACKLES IN BASIS OF THE LUNGS OR PMI SHIFT) PT TO ASSESS / TECHNOLOGY EDUCATION INSTRUCTOR TO MONITOR CARDIO/RESPIRATORY SYSTEM; AND NOTIFY THE PHYSICIAN AND/OR THE RN CLINICAL ZINC SKIMMER FOR PHYSICIAN NOTIFICATION FOR EARLY SIGNS AND SYMPTOMS OF EXACERBATION OR DETERIORATION. PT/TECHNOLOGY EDUCATION INSTRUCTOR TO IDENTIFY FALL RISK FACTORS; EDUCATE THE PATIENT/CAREGIVER ON WAYS TO REDUCE FALL RISK FACTORS AND ESTABLISH HOME EXERCISE PROGRAM TO MINIMIZE FALL RISK. MAY TEACH THE PATIENT FLOOR RECOVERY WHEN CLINICALLY APPROPRIATE PT / TECHNOLOGY EDUCATION INSTRUCTOR TO EDUCATE ON CVA SELF-MANAGEMENT PT / TECHNOLOGY EDUCATION INSTRUCTOR MAY EDUCATE ON PAIN MANAGEMENT CLINICALLY INDICATED, INCLUDING NON-PHARMACOLOGICAL PAIN REDUCTION TECHNIQUES PT / TECHNOLOGY EDUCATION INSTRUCTOR TO INSTRUCT PATIENT/CAREGIVER ON RISK FOR HOSPITALIZATION/EMERGENCY ROOM VISITS, TEACH SIGNS AND SYMPTOMS THAT PUT PATIENT AT RISK, WHEN TO NOTIFY NURSE/PHYSICIAN OF COMPLICATIONS/DECLINE, AND WHEN TO CALL 911. PT / TECHNOLOGY EDUCATION INSTRUCTOR TO EDUCATE ON HEART FAILURE SELF-MANAGEMENT PT / TECHNOLOGY EDUCATION INSTRUCTOR TO EDUCATE ON HYPERTENSION SELF-MANAGEMENT PT / TECHNOLOGY EDUCATION INSTRUCTOR TO EDUCATE ON ATRIAL FIBRILLATION SELF-MANAGEMENT. PT / TECHNOLOGY EDUCATION INSTRUCTOR TO EDUCATE ON COPD SELF-MANAGEMENT [code = AGENCY MAY PERFORM A RESUMPTION OF CARE VISIT FOLLOWING ANY HOSPITAL ADMISSION. PT TO EVALUATE, OBSERVE / ASSESS, AND MONITOR, TECHNOLOGY EDUCATION INSTRUCTOR TO OBSERVE AND MONITOR, PROVIDE SKILLED THERAPEUTIC INTERVENTION, ACTIVITY, EDUCATION, AND TRAINING TO ADDRESS; PT/TECHNOLOGY EDUCATION INSTRUCTOR TO PROVIDE GAIT TRAINING FOR IMPROVED MOBILITY AND /OR TO NORMALIZE GAIT PATTERN NEUROMUSCULAR RE-EDUCATION / BALANCE / POSTURAL CONTROL (PT) PT/TECHNOLOGY EDUCATION INSTRUCTOR TO PROVIDE STAIR TRAINING SIT TO/FROM STAND TRANSFERS (PT/TECHNOLOGY EDUCATION INSTRUCTOR) PT TO ASSESS / TECHNOLOGY EDUCATION INSTRUCTOR TO MONITOR FOR AND REPORT EARLY SIGNS OF ANTICOAGULANT TOXICITY TO THE PHYSICIAN AND/OR THE RN CLINICAL ZINC SKIMMER FOR PHYSICIAN NOTIFICATION AND TO PROVIDE PATIENT/CAREGIVER EDUCATION ON ANTICOAGULANT THERAPY PT / TECHNOLOGY EDUCATION INSTRUCTOR TO MONITOR FOR HYPO/HYPERGLYCEMIA AND CONDUCT ROUTINE FOOT INSPECTIONS. RECORD PATIENT REPORTED BLOOD SUGAR LEVELS AND NOTIFY PHYSICIAN AND/OR THE RN CLINICAL ZINC SKIMMER FOR PHYSICIAN NOTIFICATION IF BLOOD SUGAR LEVELS ARE OUTSIDE ORDERED PARAMETERS. TEACH PATIENT/CAREGIVER ON DAILY FOOT INSPECTIONS PT TO ASSESS / TECHNOLOGY EDUCATION INSTRUCTOR TO MONITOR FOR HEART FAILURE EXACERBATION AND RECORD PATIENT REPORTED WEIGHT, AND NOTIFY THE PHYSICIAN AND/OR THE RN CLINICAL ZINC SKIMMER FOR PHYSICIAN NOTIFICATION OF HF EXACERBATION (2LB WEIGHT GAIN IN 1 DAY, 5LBS IN A WEEK OR 5 LBS OVER BASELINE; INCREASED SOB, EDEMA, NEEDING MORE PILLOWS AT NIGHT, CRACKLES IN BASIS OF THE LUNGS OR PMI SHIFT) PT TO ASSESS / TECHNOLOGY EDUCATION INSTRUCTOR TO MONITOR CARDIO/RESPIRATORY SYSTEM; AND NOTIFY THE PHYSICIAN AND/OR THE RN CLINICAL ZINC SKIMMER FOR PHYSICIAN NOTIFICATION FOR EARLY SIGNS AND SYMPTOMS OF EXACERBATION OR DETERIORATION. PT/TECHNOLOGY EDUCATION INSTRUCTOR TO IDENTIFY FALL RISK FACTORS; EDUCATE THE PATIENT/CAREGIVER ON WAYS TO REDUCE FALL RISK FACTORS AND ESTABLISH HOME EXERCISE PROGRAM TO MINIMIZE FALL RISK. MAY TEACH THE PATIENT FLOOR RECOVERY WHEN CLINICALLY APPROPRIATE PT / TECHNOLOGY EDUCATION INSTRUCTOR TO EDUCATE ON CVA SELF-MANAGEMENT PT / TECHNOLOGY EDUCATION INSTRUCTOR MAY EDUCATE ON PAIN MANAGEMENT CLINICALLY INDICATED, INCLUDING NON-PHARMACOLOGICAL PAIN REDUCTION TECHNIQUES PT / TECHNOLOGY EDUCATION INSTRUCTOR TO INSTRUCT PATIENT/CAREGIVER ON RISK FOR HOSPITALIZATION/EMERGENCY ROOM VISITS, TEACH SIGNS AND SYMPTOMS THAT PUT PATIENT AT RISK, WHEN TO NOTIFY NURSE/PHYSICIAN OF COMPLICATIONS/DECLINE, AND WHEN TO CALL 911. PT / TECHNOLOGY EDUCATION INSTRUCTOR TO EDUCATE ON HEART FAILURE SELF-MANAGEMENT PT / TECHNOLOGY EDUCATION INSTRUCTOR TO EDUCATE ON HYPERTENSION SELF-MANAGEMENT PT / TECHNOLOGY EDUCATION INSTRUCTOR TO EDUCATE ON ATRIAL FIBRILLATION SELF-MANAGEMENT. PT / TECHNOLOGY EDUCATION INSTRUCTOR TO EDUCATE ON COPD SELF-MANAGEMENT ] Goal [...] End Date/Time Encounter Type Admission Type Attending [facility] Department Encounter ID Discharge Date Discharge Status Discharge Condition Discharge Reason Percent Goals Met 2024-10-31 00:00:00 2024-12-29 00:00:00 Outpatient NEW ADMISSION JONATHAN LYONS [facility] [id number] 23.40
--- OUTSIDE RECORDS SUMMARY | 2024-12-13 09:02 | XMS_ITS | Clinical Summary ---
Author Organization Unknown Care Team Providers Care Risk Management Manager Name Role Phone JACOB COMBS, MIRACLE Unavailable Unavailable ELOY RN, JONATHAN Unavailable Unavailfritz VYAS LPN, MINISTERIO Unavailable Unavailable KENDALL PT, PJ Unavailable Unavailable CARLOS OT, BETO Unavailable Unavailable MARLEN TORPEDO SPECIALIST, ALVARO Unavailable Unavailable Payers Payer Name Policy Type Policy Number Effective Date Expira tion Date [id number].[email or web address] JUANA.GENAAUTH [id number] Problems Condition Name Condition Details Condition Category [...] 10-18 00:00: 00 ATHSCL HEART DISEASE OF [place] CORONARY ARTERY W/O ANG PCTRS Active 10-18 00:00: 00 NONRHEUMATIC AORTIC VALVE DISORDER, UNSPECIFIED Active 10-18 00:00: 00 PRSNL HX OF TIA (TIA), AND 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 Active 10-18 00:00: 00 PRESENCE OF CORONARY ANGIOPLASTY IMPLANT AND GRAFT Active 10-18 00:00: 00 DETENTION (CURRENT) USE OF ANTICOAGULAN TS Active 10-31 00:00: 00 DETENTION (CURRENT) USE OF ANTITHROMBOT ICS/ANTIPLAT ELETS Active [...] 5 mg tablet 2-24 00:00: 00 Yes [id number] ANXIETY 1 tablet 2 TIMES DAILY 1 tablet 2 TIMES DAILY (route: oral) Med Classific ation: Central Nervous System Agents potassium chloride ER 20 mEq tablet,exte nded release 09-29 00:00: 00 Yes [id number] SUPPLEMENT 1 tablet DAILY 1 tablet DAILY (route: oral) Med Classific ation: Electroly te Balance-N utritiona l Products acetaminoph en 325 mg tablet 10-31 00:00: 00 Yes [id number] NEEDED FOR MILD PAIN 2 tablet EVERY 6 HOURS 2 tablet EVERY 6 HOURS (route: oral) Med Classific ation: Analgesic , Anti-infl ammatory or Antipyret ic albuterol sulfate HFA 90 mcg/actuati on aerosol inhaler 10-31 00:00: 00 Yes [id number] NEEDED FOR SOB 1 puff EVERY 4 HOURS 1 puff EVERY 4 HOURS (route: inhalation ) Med Classific ation: Respirato ry Therapy Agents atorvastati n 80 mg tablet 10-31 00:00: 00 Yes [id number] CHOLESTEROL 1 tablet DAILY 1 tablet DAILY (route: oral) Med Classific ation: Cardiovas cular Therapy Agents carvedilol 25 mg tablet 10-31 00:00: 00 Yes [id number] HIGH BLOOD PRESSURE 1 tablet 2 TIMES DAILY 1 tablet 2 TIMES DAILY (route: oral) Med Classific ation: Cardiovas cular Therapy Agents clopidogrel 75 mg tablet 10-31 00:00: 00 Yes [id number] BLOOD THINNER 1 tablet DAILY 1 tablet DAILY (route: oral) Med Classific ation: Hematolog ical Agents Eliquis 5 mg tablet 10-31 00:00: 00 Yes [id number] BLOOD THINNER 1 tablet 2 TIMES DAILY 1 tablet 2 TIMES DAILY (route: oral) Med Classific ation: Hematolog ical Agents furosemide 40 mg tablet 10-31 00:00: 00 11-07 23:59 :00 No [id number] FLUID OVERLOAD 1 tablet 2 TIMES DAILY 1 tablet 2 TIMES DAILY (route: oral) Med Classific ation: Cardiovas cular Therapy Agents losartan 25 mg tablet 10-31 00:00: 00 Yes [id number] HIGH BLOOD PRESSURE 1 tablet DAILY 1 tablet DAILY (route: oral) Med Classific ation: Cardiovas cular Therapy Agents melatonin 5 mg chewable tablet 10-31 00:00: 00 Yes [id number] SLEEP SUPPLEMENT 1 tablet BEDTIME 1 tablet BEDTIME (route: oral) Med Classific ation: Central Nervous System Agents methocarbam ol 500 mg tablet 10-31 00:00: 00 Yes [id number] NEEDED FOR MUSCLE SPASMS 1 tablet 2 TIMES DAILY 1 tablet 2 TIMES DAILY (route: oral) Med Classific ation: Locomotor System paroxetine 20 mg tablet 10-31 00:00: 00 Yes [id number] ANXIETY 1 tablet DAILY 1 tablet DAILY (route: oral) Med Classific ation: Central Nervous System Agents trazodone 50 mg tablet 10-31 00:00: 00 Yes [id number] SLEEP 1 tablet BEDTIME 1 tablet BEDTIME [...] ARTHUR JAMES. RN TO OBSERVE AND ASSESS, PRIOR AUTHORIZATION TECHNICIAN/RATE MARKER TO OBSERVE FOR RISK FOR FALLS AND INSTRUCT IN FALL PREVENTION, HOME SAFETY, MEDICATION MANAGEMENT, INFECTION PREVENTION, AND NUTRITION MANAGEMENT. RN/PRIOR AUTHORIZATION TECHNICIAN/RATE MARKER NURSE MAY PERFORM O2 SATURATION LEVEL ON ADMISSION AND PRN FOR FOR RN TO ASSESS/PRIOR AUTHORIZATION TECHNICIAN TO OBSERVE PATIENT, WITH NOTIFICATION TO THE PHYSICIAN IF SATURATION IS 90% IN THE ABSENCE OF MORE SPECIFIC PARAMETERS FROM THE PHYSICIAN. AGENCY MAY PERFORM A RESUMPTION OF CARE VISIT FOLLOWING ANY HOSPITAL ADMISSION. RN/PRIOR AUTHORIZATION TECHNICIAN/RATE MARKER TO MONITOR CO-MORBID CONDITIONS LISTED ON THE PLAN OF CARE AND ANY NEW CONDITIONS THAT PRESENT THEMSELVES DURING THIS EPISODE TO IDENTIFY CHANGES AND INTERVENE TO MINIMIZE COMPLICATIONS. PATIENT HAS PAST MEDICAL HISTORY OF CAROTID DISEASE BILATERAL, CEREBELLA STROKE, ACUTE, CEREBRAL INFARCTION, AFIB, NSTEMI, CHF, COPD, DMII, . [facility] WILL MONITOR PATIENTFOR SIGNS AND SYMPTOMS OF EXACERBATION OF THESE DIAGNOSES AND WILL NOTIFY PROVIDER OF ANY CONCERNS OR CHANGES THAT ARISE. [code = RN TO OBSERVE, ASSESS, EVALUATE, AND DEVELOP AN INDIVIDUALIZED PLAN OF CARE. AGENCY MAY ACCEPT ORDERS FROM CONSULTING ARTHUR JAMES. RN TO OBSERVE AND ASSESS, PRIOR AUTHORIZATION TECHNICIAN/RATE MARKER TO OBSERVE FOR RISK FOR FALLS AND INSTRUCT IN FALL PREVENTION, HOME SAFETY, MEDICATION MANAGEMENT, INFECTION PREVENTION, AND NUTRITION MANAGEMENT. RN/PRIOR AUTHORIZATION TECHNICIAN/RATE MARKER NURSE MAY PERFORM O2 SATURATION LEVEL ON ADMISSION AND PRN FOR FOR RN TO ASSESS/PRIOR AUTHORIZATION TECHNICIAN TO OBSERVE PATIENT, WITH NOTIFICATION TO THE PHYSICIAN IF SATURATION IS 90% IN THE ABSENCE OF MORE SPECIFIC PARAMETERS FROM THE PHYSICIAN. AGENCY MAY PERFORM A RESUMPTION OF CARE VISIT FOLLOWING ANY HOSPITAL ADMISSION. RN/PRIOR AUTHORIZATION TECHNICIAN/RATE MARKER TO MONITOR CO-MORBID CONDITIONS LISTED ON THE PLAN OF CARE AND ANY NEW CONDITIONS THAT PRESENT THEMSELVES DURING THIS EPISODE TO IDENTIFY CHANGES AND INTERVENE TO MINIMIZE COMPLICATIONS. PATIENT HAS PAST MEDICAL HISTORY OF CAROTID DISEASE BILATERAL, CEREBELLA STROKE, ACUTE, CEREBRAL INFARCTION, AFIB, NSTEMI, CHF, COPD, DMII, . [facility] WILL MONITOR PATIENTFOR SIGNS [...] WEAKNESS ] Future Scheduled Test MEDICATION MANAGEMENT; RN/PRIOR AUTHORIZATION TECHNICIAN/RATE MARKER TO REVIEW MEDICATIONS FOR INTERACTIONS, EFFECTIVENESS OF DRUG THERAPY, AND SIGNS/SYMPTOMS OF ADVERSE REACTIONS. MAY INSTRUCT AND REINFORCE MEDICATION TEACHING RELATED TO THE USE OF MEDICATIONS, DOSAGE, FREQUENCY, PURPOSE, SIDE EFFECTS, AND TO REPORT COMPLICATIONS. [code = MEDICATION MANAGEMENT; RN/PRIOR AUTHORIZATION TECHNICIAN/RATE MARKER TO REVIEW MEDICATIONS FOR INTERACTIONS, EFFECTIVENESS OF DRUG THERAPY, AND SIGNS/SYMPTOMS OF ADVERSE REACTIONS. MAY INSTRUCT AND REINFORCE MEDICATION TEACHING RELATED TO THE USE OF MEDICATIONS, DOSAGE, FREQUENCY, PURPOSE, SIDE EFFECTS, AND TO REPORT COMPLICATIONS.] Future Scheduled Test ANTICOAGUL ATION MANAGEMENT; RN TO ASSESS AND TEACH, PRIOR AUTHORIZATION TECHNICIAN/RATE MARKER TO OBSERVE/TEACH/MONITOR EFFECTIVENESS OF ANTICOAGULATION THERAPY. RN/PRIOR AUTHORIZATION TECHNICIAN/RATE MARKER TO INSTRUCT ON SIGNS AND SYMPTOMS OF BLEEDING/ADVERSE REACTIONS TO REPORT TO PHYSICIAN. [code = ANTICOAGULATION MANAGEMENT; RN TO ASSESS AND TEACH, PRIOR AUTHORIZATION TECHNICIAN/RATE MARKER TO OBSERVE/TEACH/MONITOR EFFECTIVENESS OF ANTICOAGULATION THERAPY. RN/PRIOR AUTHORIZATION TECHNICIAN/RATE MARKER TO INSTRUCT ON SIGNS AND SYMPTOMS OF BLEEDING/ADVERSE REACTIONS TO REPORT TO PHYSICIAN. ] Future Scheduled Test RESPIRATOR Y SYSTEM MANAGEMENT; RN TO ASSESS AND TEACH, PRIOR AUTHORIZATION TECHNICIAN/RATE MARKER TO OBSERVE AND TEACH RELATED TO ALTERED RESPIRATORY STATUS TO MINIMIZE COMPLICATIONS AND REDUCE HOSPITALIZATION. [code = RESPIRATORY SYSTEM MANAGEMENT; RN TO ASSESS AND TEACH, PRIOR AUTHORIZATION TECHNICIAN/RATE MARKER TO OBSERVE AND TEACH RELATED TO ALTERED RESPIRATORY STATUS TO MINIMIZE COMPLICATIONS AND REDUCE HOSPITALIZATION.] Future Scheduled Test COPD MANAG EMENT; RN TO ASSESS AND TEACH, PRIOR AUTHORIZATION TECHNICIAN/RATE MARKER TO OBSERVE AND TEACH SIGNS/SYMPTOMS OF COPD EXACERBATION AND PROVIDE EARLY INTERVENTIONS TO MINIMIZE RISK OF HOSPITALIZATION. RN/PRIOR AUTHORIZATION TECHNICIAN/RATE MARKER TO INSTRUCT ON SELF-CARE MANAGEMENT INCLUDING BREATHING TECHNIQUES, AIRWAY CLEARANCE, AND PROPER USE OF COPD MEDICATIONS. RN TO ASSESS AND TEACH, PRIOR AUTHORIZATION TECHNICIAN/RATE MARKER TO OBSERVE AND TEACH PATIENT/CAREGIVER ABILITY TO MONITOR AND RECORD VITAL SIGNS INCLUDING PULSE OXIMETRY AND BLOOD PRESSURE. PULSE OXIMETER AND BP MONITOR TO BE PROVIDED IF NEEDED [code = COPD MANAGEMENT; RN TO ASSESS AND TEACH, PRIOR AUTHORIZATION TECHNICIAN/RATE MARKER TO OBSERVE AND TEACH SIGNS/SYMPTOMS OF COPD EXACERBATION AND PROVIDE EARLY INTERVENTIONS TO MINIMIZE RISK OF HOSPITALIZATION. RN/PRIOR AUTHORIZATION TECHNICIAN/RATE MARKER TO INSTRUCT ON SELF-CARE MANAGEMENT INCLUDING BREATHING TECHNIQUES, AIRWAY CLEARANCE, AND PROPER USE OF COPD MEDICATIONS. RN TO ASSESS AND TEACH, PRIOR AUTHORIZATION TECHNICIAN/RATE MARKER TO OBSERVE AND TEACH PATIENT/CAREGIVER ABILITY TO MONITOR AND RECORD VITAL SIGNS INCLUDING PULSE OXIMETRY AND BLOOD PRESSURE. PULSE OXIMETER AND BP MONITOR TO BE PROVIDED IF NEEDED ] Future Scheduled Test FALL REDUC TION MANAGEMENT; RN TO ASSESS AND OBSERVE, PRIOR AUTHORIZATION TECHNICIAN/RATE MARKER TO OBSERVE FALL RISK FACTORS AND EDUCATE PATIENT/CAREGIVER ON STRATEGIES TO MINIMIZE THE RISK OF FALLING. [code = FALL REDUCTION MANAGEMENT; RN TO ASSESS AND OBSERVE, PRIOR AUTHORIZATION TECHNICIAN/RATE MARKER TO OBSERVE FALL RISK FACTORS AND EDUCATE PATIENT/CAREGIVER ON STRATEGIES TO MINIMIZE THE RISK OF FALLING.] Future Scheduled Test DIABETES M ANAGEMENT; RN TO ASSESS AND TEACH, RATE MARKER/PRIOR AUTHORIZATION TECHNICIAN TO OBSERVE AND TEACH INSTRUCTIONS OF DIABETIC CARE TO INCLUDE: DIET DIABETIC, SKIN CARE, SIGNS AND SYMPTOMS OF HYPO/HYPERGLYCEMIA, PROPER ADMINISTRATION OF DIABETIC MEDICATION. RN/RATE MARKER/PRIOR AUTHORIZATION TECHNICIAN TO INSTRUCT ON DIABETIC FOOT CARE AND MONITOR FOR SKIN LESIONS ON LOWER EXTREMITIES. BLOOD GLUCOSE TESTING 4X DAILY FREQ. RN TO ASSESS AND TEACH, RATE MARKER/PRIOR AUTHORIZATION TECHNICIAN TO OBSERVE AND TEACH PATIENT/CAREGIVER ABILITY TO PERFORM AND RECORD BLOOD GLUCOSE TESTING ORDERED AND TO REPORT ABNORMAL FINDINGS TO PHYSICIAN. RN/RATE MARKER/PRIOR AUTHORIZATION TECHNICIAN MAY PERFORM BLOOD GLUCOSE TEST NEEDED. RN/RATE MARKER/PRIOR AUTHORIZATION TECHNICIAN TO REPORT TO PHYSICIAN BLOOD GLUCOSE READINGS GREATER THAN 350 OR LESS THAN 80 RN/RATE MARKER/PRIOR AUTHORIZATION TECHNICIAN TO INSTRUCT PATIENT ON IMPORTANCE OF HGBA1C MONITORING, KIDNEY FUNCTION TEST, EYE AND FOOT EXAMS. [code = DIABETES MANAGEMENT; RN TO ASSESS AND TEACH, RATE MARKER/PRIOR AUTHORIZATION TECHNICIAN TO OBSERVE AND TEACH INSTRUCTIONS OF DIABETIC CARE TO INCLUDE: DIET DIABETIC, SKIN CARE, SIGNS AND SYMPTOMS OF HYPO/HYPERGLYCEMIA, PROPER ADMINISTRATION OF DIABETIC MEDICATION. RN/RATE MARKER/PRIOR AUTHORIZATION TECHNICIAN TO INSTRUCT ON DIABETIC FOOT CARE AND MONITOR FOR SKIN LESIONS ON LOWER EXTREMITIES. BLOOD GLUCOSE TESTING 4X DAILY FREQ. RN TO ASSESS AND TEACH, RATE MARKER/PRIOR AUTHORIZATION TECHNICIAN TO OBSERVE AND TEACH PATIENT/CAREGIVER ABILITY TO PERFORM AND RECORD BLOOD GLUCOSE TESTING ORDERED AND TO REPORT ABNORMAL FINDINGS TO PHYSICIAN. RN/RATE MARKER/PRIOR AUTHORIZATION TECHNICIAN MAY PERFORM BLOOD GLUCOSE TEST NEEDED. RN/RATE MARKER/PRIOR AUTHORIZATION TECHNICIAN TO REPORT TO PHYSICIAN BLOOD GLUCOSE READINGS GREATER THAN 350 OR LESS THAN 80 RN/RATE MARKER/PRIOR AUTHORIZATION TECHNICIAN TO INSTRUCT PATIENT ON IMPORTANCE OF HGBA1C MONITORING, KIDNEY FUNCTION TEST, EYE AND FOOT EXAMS.] Future Scheduled Test PAIN MANAG EMENT; RN TO ASSESS AND TEACH, RATE MARKER/PRIOR AUTHORIZATION TECHNICIAN TO OBSERVE AND TEACH AND PROVIDE EDUCATION ON PAIN MANAGEMENT TECHNIQUES. [code = PAIN MANAGEMENT; RN TO ASSESS AND TEACH, RATE MARKER/PRIOR AUTHORIZATION TECHNICIAN TO OBSERVE AND TEACH AND PROVIDE EDUCATION ON PAIN MANAGEMENT TECHNIQUES.] Future Scheduled Test RISK FOR H OSPITALIZATION; RN TO ASSESS/TEACH, RATE MARKER/PRIOR AUTHORIZATION TECHNICIAN TO OBSERVE/TEACH PATIENT/CAREGIVER ON RISK FOR HOSPITALIZATION/EMERGENCY ROOM VISITS, TEACH SIGNS AND SYMPTOMS THAT PUT PATIENT AT RISK, WHEN TO NOTIFY NURSE/PHYSICIAN OF COMPLICATIONS/DECLINE, AND WHEN TO CALL 911. [code = RISK FOR HOSPITALIZATION; RN TO ASSESS/TEACH, RATE MARKER/PRIOR AUTHORIZATION TECHNICIAN TO OBSERVE/TEACH PATIENT/CAREGIVER ON RISK FOR HOSPITALIZATION/EMERGENCY ROOM VISITS, TEACH SIGNS AND SYMPTOMS THAT PUT PATIENT AT RISK, WHEN TO NOTIFY NURSE/PHYSICIAN OF COMPLICATIONS/DECLINE, AND WHEN TO CALL 911.] Future Scheduled Test CARDIOVASC ULAR SYSTEM; RN TO ASSESS/TEACH, PRIOR AUTHORIZATION TECHNICIAN/RATE MARKER TO OBSERVE/TEACH RELATED TO ALTERED CARDIOVASCULAR STATUS TO MINIMIZE COMPLICATIONS AND REDUCE HOSPITALIZATION. [code = CARDIOVASCULAR SYSTEM; RN TO ASSESS/TEACH, PRIOR AUTHORIZATION TECHNICIAN/RATE MARKER TO OBSERVE/TEACH RELATED TO ALTERED CARDIOVASCULAR STATUS TO MINIMIZE COMPLICATIONS AND REDUCE HOSPITALIZATION.] Future Scheduled Test HYPERTENSI ON MANAGEMENT; RN TO ASSESS AND TEACH, PRIOR AUTHORIZATION TECHNICIAN/RATE MARKER TO OBSERVE AND TEACH WARNING SIGNS AND SYMPTOMS TO AVOID HOSPITALIZATION. [code = HYPERTENSION MANAGEMENT; RN TO ASSESS AND TEACH, PRIOR AUTHORIZATION TECHNICIAN/RATE MARKER TO OBSERVE AND TEACH WARNING SIGNS AND SYMPTOMS TO AVOID HOSPITALIZATION. ] Future Scheduled Test ARRHYTHMIA MANAGEMENT; RN TO ASSESS AND TEACH, PRIOR AUTHORIZATION TECHNICIAN/RATE MARKER TO OBSERVE AND TEACH WARNING SIGNS AND SYMPTOMS TO AVOID HOSPITALIZATION. [code = ARRHYTHMIA MANAGEMENT; RN TO ASSESS AND TEACH, PRIOR AUTHORIZATION TECHNICIAN/RATE MARKER TO OBSERVE AND TEACH WARNING SIGNS AND SYMPTOMS TO AVOID HOSPITALIZATION. ] Future Scheduled Test AGENCY MAY PERFORM A RESUMPTION OF CARE VISIT FOLLOWING ANY HOSPITAL ADMISSION. PT TO EVALUATE, OBSERVE / ASSESS, AND MONITOR, TORPEDO SPECIALIST TO OBSERVE AND MONITOR, PROVIDE SKILLED THERAPEUTIC INTERVENTION, ACTIVITY, EDUCATION, AND TRAINING TO ADDRESS; PT/TORPEDO SPECIALIST TO PROVIDE GAIT TRAINING FOR IMPROVED MOBILITY AND /OR TO NORMALIZE GAIT PATTERN NEUROMUSCULAR RE-EDUCATION / BALANCE / POSTURAL CONTROL (PT) PT/TORPEDO SPECIALIST TO PROVIDE STAIR TRAINING SIT TO/FROM STAND TRANSFERS (PT/TORPEDO SPECIALIST) PT TO ASSESS / TORPEDO SPECIALIST TO MONITOR FOR AND REPORT EARLY SIGNS OF ANTICOAGULANT TOXICITY TO THE PHYSICIAN AND/OR THE RN CLINICAL APPLICATION INTEGRATION SPECIALIST FOR PHYSICIAN NOTIFICATION AND TO PROVIDE PATIENT/CAREGIVER EDUCATION ON ANTICOAGULANT THERAPY PT / TORPEDO SPECIALIST TO MONITOR FOR HYPO/HYPERGLYCEMIA AND CONDUCT ROUTINE FOOT INSPECTIONS. RECORD PATIENT REPORTED BLOOD SUGAR LEVELS AND NOTIFY PHYSICIAN AND/OR THE RN CLINICAL APPLICATION INTEGRATION SPECIALIST FOR PHYSICIAN NOTIFICATION IF BLOOD SUGAR LEVELS ARE OUTSIDE ORDERED PARAMETERS. TEACH PATIENT/CAREGIVER ON DAILY FOOT INSPECTIONS PT TO ASSESS / TORPEDO SPECIALIST TO MONITOR FOR HEART FAILURE EXACERBATION AND RECORD PATIENT REPORTED WEIGHT, AND NOTIFY THE PHYSICIAN AND/OR THE RN CLINICAL APPLICATION INTEGRATION SPECIALIST FOR PHYSICIAN NOTIFICATION OF HF EXACERBATION (2LB WEIGHT GAIN IN 1 DAY, 5LBS IN A WEEK OR 5 LBS OVER BASELINE; INCREASED SOB, EDEMA, NEEDING MORE PILLOWS AT NIGHT, CRACKLES IN BASIS OF THE LUNGS OR PMI SHIFT) PT TO ASSESS / TORPEDO SPECIALIST TO MONITOR CARDIO/RESPIRATORY SYSTEM; AND NOTIFY THE PHYSICIAN AND/OR THE RN CLINICAL APPLICATION INTEGRATION SPECIALIST FOR PHYSICIAN NOTIFICATION FOR EARLY SIGNS AND SYMPTOMS OF EXACERBATION OR DETERIORATION. PT/TORPEDO SPECIALIST TO IDENTIFY FALL RISK FACTORS; EDUCATE THE PATIENT/CAREGIVER ON WAYS TO REDUCE FALL RISK FACTORS AND ESTABLISH HOME EXERCISE PROGRAM TO MINIMIZE FALL RISK. MAY TEACH THE PATIENT FLOOR RECOVERY WHEN CLINICALLY APPROPRIATE PT / TORPEDO SPECIALIST TO EDUCATE ON CVA SELF-MANAGEMENT PT / TORPEDO SPECIALIST MAY EDUCATE ON PAIN MANAGEMENT CLINICALLY INDICATED, INCLUDING NON-PHARMACOLOGICAL PAIN REDUCTION TECHNIQUES PT / TORPEDO SPECIALIST TO INSTRUCT PATIENT/CAREGIVER ON RISK FOR HOSPITALIZATION/EMERGENCY ROOM VISITS, TEACH SIGNS AND SYMPTOMS THAT PUT PATIENT AT RISK, WHEN TO NOTIFY NURSE/PHYSICIAN OF COMPLICATIONS/DECLINE, AND WHEN TO CALL 911. PT / TORPEDO SPECIALIST TO EDUCATE ON HEART FAILURE SELF-MANAGEMENT PT / TORPEDO SPECIALIST TO EDUCATE ON HYPERTENSION SELF-MANAGEMENT PT / TORPEDO SPECIALIST TO EDUCATE ON ATRIAL FIBRILLATION SELF-MANAGEMENT. PT / TORPEDO SPECIALIST TO EDUCATE ON COPD SELF-MANAGEMENT [code = AGENCY MAY PERFORM A RESUMPTION OF CARE VISIT FOLLOWING ANY HOSPITAL ADMISSION. PT TO EVALUATE, OBSERVE / ASSESS, AND MONITOR, TORPEDO SPECIALIST TO OBSERVE AND MONITOR, PROVIDE SKILLED THERAPEUTIC INTERVENTION, ACTIVITY, EDUCATION, AND TRAINING TO ADDRESS; PT/TORPEDO SPECIALIST TO PROVIDE GAIT TRAINING FOR IMPROVED MOBILITY AND /OR TO NORMALIZE GAIT PATTERN NEUROMUSCULAR RE-EDUCATION / BALANCE / POSTURAL CONTROL (PT) PT/TORPEDO SPECIALIST TO PROVIDE STAIR TRAINING SIT TO/FROM STAND TRANSFERS (PT/TORPEDO SPECIALIST) PT TO ASSESS / TORPEDO SPECIALIST TO MONITOR FOR AND REPORT EARLY SIGNS OF ANTICOAGULANT TOXICITY TO THE PHYSICIAN AND/OR THE RN CLINICAL APPLICATION INTEGRATION SPECIALIST FOR PHYSICIAN NOTIFICATION AND TO PROVIDE PATIENT/CAREGIVER EDUCATION ON ANTICOAGULANT THERAPY PT / TORPEDO SPECIALIST TO MONITOR FOR HYPO/HYPERGLYCEMIA AND CONDUCT ROUTINE FOOT INSPECTIONS. RECORD PATIENT REPORTED BLOOD SUGAR LEVELS AND NOTIFY PHYSICIAN AND/OR THE RN CLINICAL APPLICATION INTEGRATION SPECIALIST FOR PHYSICIAN NOTIFICATION IF BLOOD SUGAR LEVELS ARE OUTSIDE ORDERED PARAMETERS. TEACH PATIENT/CAREGIVER ON DAILY FOOT INSPECTIONS PT TO ASSESS / TORPEDO SPECIALIST TO MONITOR FOR HEART FAILURE EXACERBATION AND RECORD PATIENT REPORTED WEIGHT, AND NOTIFY THE PHYSICIAN AND/OR THE RN CLINICAL APPLICATION INTEGRATION SPECIALIST FOR PHYSICIAN NOTIFICATION OF HF EXACERBATION (2LB WEIGHT GAIN IN 1 DAY, 5LBS IN A WEEK OR 5 LBS OVER BASELINE; INCREASED SOB, EDEMA, NEEDING MORE PILLOWS AT NIGHT, CRACKLES IN BASIS OF THE LUNGS OR PMI SHIFT) PT TO ASSESS / TORPEDO SPECIALIST TO MONITOR CARDIO/RESPIRATORY SYSTEM; AND NOTIFY THE PHYSICIAN AND/OR THE RN CLINICAL APPLICATION INTEGRATION SPECIALIST FOR PHYSICIAN NOTIFICATION FOR EARLY SIGNS AND SYMPTOMS OF EXACERBATION OR DETERIORATION. PT/TORPEDO SPECIALIST TO IDENTIFY FALL RISK FACTORS; EDUCATE THE PATIENT/CAREGIVER ON WAYS TO REDUCE FALL RISK FACTORS AND ESTABLISH HOME EXERCISE PROGRAM TO MINIMIZE FALL RISK. MAY TEACH THE PATIENT FLOOR RECOVERY WHEN CLINICALLY APPROPRIATE PT / TORPEDO SPECIALIST TO EDUCATE ON CVA SELF-MANAGEMENT PT / TORPEDO SPECIALIST MAY EDUCATE ON PAIN MANAGEMENT CLINICALLY INDICATED, INCLUDING NON-PHARMACOLOGICAL PAIN REDUCTION TECHNIQUES PT / TORPEDO SPECIALIST TO INSTRUCT PATIENT/CAREGIVER ON RISK FOR HOSPITALIZATION/EMERGENCY ROOM VISITS, TEACH SIGNS AND SYMPTOMS THAT PUT PATIENT AT RISK, WHEN TO NOTIFY NURSE/PHYSICIAN OF COMPLICATIONS/DECLINE, AND WHEN TO CALL 911. PT / TORPEDO SPECIALIST TO EDUCATE ON HEART FAILURE SELF-MANAGEMENT PT / TORPEDO SPECIALIST TO EDUCATE ON HYPERTENSION SELF-MANAGEMENT PT / TORPEDO SPECIALIST TO EDUCATE ON ATRIAL FIBRILLATION SELF-MANAGEMENT. PT / TORPEDO SPECIALIST TO EDUCATE ON COPD SELF-MANAGEMENT ] Goal [...] End Date/Time Encounter Type Admission Type Attending [facility] Department Encounter ID Discharge Date Discharge Status Discharge Condition Discharge Reason Percent Goals Met 2024-10-31 00:00:00 2024-12-29 00:00:00 Outpatient NEW ADMISSION [facility] [id number] 23.40
[2024-12-13] MEDS: FUROSEMIDE INJ 40 MG/4 ML VIAL IV PUSH ×2 (09:08→20:02)
[2024-12-13] MEDS: NITROGLYCERIN SL 0.4 MG TABLET SUBLINGUAL (09:09)
--- NOTE | 2024-12-13 09:12 | ED_ITS ---
HPI - General Adult General Chief complaint: Shortness of Breath/Dyspnea Stated complaint: SHORTNESS OF BREATH Time Seen by Provider: 12/13/24 08:50 History of Present Illness HPI narrative: 84-year-old male with history AFib with RVR, CHF presents to the emergency department for evaluation for worsening shortness of breath that started yesterday. Patient arrives the emergency department with increased work of breathing and lower extremity edema. Patient states he has been taking his medications as directed. Patient states he was having some increased shortness of breath chest tightness and worsening lower extremity edema. Related Data Home Medications ?Medication ?Instructions ?Recorded ?Confirmed ?Last Taken ?Type albuterol sulfate 90 mcg/actuation 1 inh inhalation Q4H PRN Shortness 12/27/23 12/13/24 05/17/24 History aerosol inhaler Of Breath Or Wheezing lancets 30 gauge 12/27/23 12/13/24 Unknown History simvastatin 20 mg tablet 20 mg PO QPM 12/13/24 12/13/24 Unknown History trazodone 50 mg tablet 50 mg PO HS 12/13/24 12/13/24 Unknown History Allergies Allergy/AdvReac Type Severity Reaction Status Date / Time metformin AdvReac Intermediate Diarrhea Verified 12/13/24 11:21 Review of Systems 2 Review of Systems: All systems reviewed & are unremarkable except as noted in HPI and below PMFSH Past Medical History Medical History (Updated 12/13/24 @ 18:20 by Sal Meeks MD) Squamous cell carcinoma Paroxysmal atrial fibrillation Hyperlipidemia Hypertension Transient ischemic attack Diet-controlled type 2 diabetes mellitus Chronic obstructive pulmonary disease Chronic anticoagulation Heart failure with preserved ejection fraction EF 50 to 55% in 05/09/2024 Coronary artery disease Right-sided extracranial carotid artery stenosis Aortic valve disease status post bioprosthetic aortic valve replacemen Surgical History Surgical History History of cataract extraction History of coronary angioplasty with insertion of stent (2023) History of aortic valve replacement with bioprosthetic valve x2 Family History Family History Father Hypertension Heart disease Mother Cancer Diabetes mellitus Hypertension Social History Social History Social History: Surrogate medical decision maker: Jorge Pryor, spouse. Code status: Full code. Smoking status: Never smoker Alcohol intake: never Substance use: never Substance use type: does not use Do You Feel Safe in your Home?: Yes Lack of Transportation: No Lack of Food: Never True Current Housing: I Have Housing Concerned About Future Housing: No Difficulty Paying Gas/Electric Bills: No Difficulty Paying for Meds: No Currently Unemployed: No Education: Decline to Answer Difficulty w/ Childcare or Family Care: No Living arrangements: with family Occupation/Education: retired Spiritual care concerns: No Exam 2 Narrative: APPEARANCE: Well appearing, no pain, no distress, well-nourished. HEAD: normocephalic, atraumatic. EYES: PERRLA/EOMI, conjunctivae clear. NOSE: Normal no drainage EARS:TMS clear with good light reflex. THROAT: Pharynx clear, no exudate. NECK: Supple. No adenopathy, no masses. RESPIRATORY: Airway patent, respirations nonlabored. Clear to auscultation bilaterally, no rales, rhonchi, wheezing. CARDIOVASCULAR: Regular rate and rhythm without murmurs rubs or gallops. ABDOMINAL: Soft, nontender, nondistended, normal bowel sounds MUSCULOSKELETAL: Moves all extremities. Bilateral lower extremity pitting edema NEURO: Alert. Cranial nerves II through XII intact. Grossly intact SKIN: Warm, dry. Normal Color Course Vital Signs Vital signs: Vital Signs Pulse Rate 105 H 12/13/24 08:49 Respiratory Rate 28 H 12/13/24 08:49 Pulse Oximetry 93 12/13/24 08:49 Oxygen Delivery Room Air 12/13/24 08:49 Temperature 98.1 F 12/13/24 16:00 Pulse Rate 76 12/13/24 18:00 Respiratory Rate 15 12/13/24 16:00 Blood Pressure 168/72 H 12/13/24 16:00 Pulse Oximetry 98 12/13/24 16:00 Oxygen Delivery Nasal Cannula 12/13/24 16:00 Oxygen Flow Rate 2 12/13/24 16:00 Fraction of Inspired Oxygen 30 12/13/24 12:00 Medical Decision Making MDM Narrative Medical decision making narrative: 84-year-old male presents to the emergency department for evaluation for increased work of breathing and hypertension. Patient was started on BiPAP to to increased work of breathing and lower extremity edema. Patient was also treated with sublingual nitro and started on IV Lasix. Chest x-ray does show pulmonary vascular congestion. Patient did have improvement with his respiratory status and response to the BiPAP Lasix and nitro. Case was discussed with hospitalist patient was accepted for admission to the IMU. Patient family updated the results of the workup and plan for admission. All questions concerns were addressed. Patient's symptoms are more consistent with pulmonary edema rather than infectious etiology Differential Diagnosis Differential Diagnosis: Pneumonia, pulmonary edema, pneumothorax, ACS Vital Signs Vital Signs: Vital Signs Pulse Rate 105 H 12/13/24 08:49 Respiratory Rate 28 H 12/13/24 08:49 Pulse Oximetry 93 12/13/24 08:49 Oxygen Delivery Room Air 12/13/24 08:49 Temperature 98.1 F 12/13/24 16:00 Pulse Rate 76 12/13/24 18:00 Respiratory Rate 15 12/13/24 16:00 Blood Pressure 168/72 H 12/13/24 16:00 Pulse Oximetry 98 12/13/24 16:00 Oxygen Delivery Nasal Cannula 12/13/24 16:00 Oxygen Flow Rate 2 12/13/24 16:00 Fraction of Inspired Oxygen 30 12/13/24 12:00 Lab Data Lab results reviewed: Yes I reviewed the patient's lab results. 12/13/24 09:07 12/13/24 09:07 Labs: Lab Results 12/13/24 Range/Units 09:07 WBC 9.0 (4.5-10.0) K/mm3 RBC 4.14 L (4.6-6.20) M/mm3 Hgb 12.7 L (14.0-18.0) g/dL Hct 39.3 L (42.0-52.0) % MCV 94.9 (80-100) fl MCH 30.7 (26-34) pg MCHC 32.3 (32-36) g/dl RDW 14.6 H (11.5-14.5) % Plt Count 202 (150-375) k/mm3 MPV 11.0 H (7.4-10.4) fl Immature Gran % (Auto) 0.6 H (0-0.5) % Neut % (Auto) 75.7 H (45.5-73.1) % Lymph % (Auto) 14.0 L (18.3-44.2) % [place] % (Auto) 7.2 (2.6-8.5) % Eos % (Auto) 1.8 (0-4.4) % Baso % (Auto) 0.7 (0.2-1.2) % Lymph # (Auto) 1.26 (0.9-3.2) K/mm3 [place] # (Auto) 0.7 H (0.1-0.6) K/mm3 Eos # (Auto) 0.2 (0-0.3) K/mm3 Baso # (Auto) 0.1 (0.0-0.1) K/mm3 Abs Immat Gran (auto) 0.05 H (0.00-0.031) K/mm3 Absolute Neuts (auto) 6.8 H (1.3-6.7) K/mm3 Absolute Nucleated RBC 0.000 (0.0-0.012) K/mm3 Nucleated RBC % 0.0 (0.0-0.2) % PT 16.7 H (11.1-14.7) Seconds INR 1.3 APTT 36.0 (22.3-36.8) Seconds Sodium 139 (137-145) mmol/L Potassium 4.2 (3.4-5.0) mmol/L Chloride 109 H (98-107) mmol/L Carbon Dioxide 20 L (22-30) mmol/L Anion Gap 10 (4-12) mmol/L BUN 21 H D (9-20) mg/dL Creatinine 0.92 (0.7-1.3) mg/dL Estim Creat Clear Calc 57 ml/min Estimated GFR > 60 (59 - ) Glucose 197 H (65-110) mg/dL Calcium 8.7 (8.4-10.2) mg/dL Total Bilirubin 0.7 (0.2-1.3) mg/dL AST 28 (17-59) U/L ALT 21 (6-50) U/L Alkaline Phosphatase 73 (38-126) U/L Troponin I 0.016 (0.000-0.034) ng/mL NT-Pro-B Natriuret Pep 7300 H (19.9-100) pg/mL Total Protein 7.0 (6.3-8.2) g/dL Albumin 4.2 (3.5-5.1) g/dL Influenza A (RT-PCR) Negative (Negative) Influenza B (RT-PCR) Negative (Negative) RSV (RT-PCR) Negative (Negative) SARS-CoV-2 RNA (RT-PCR) Negative (Negative) Imaging Data Radiologist's impression: Impressions Chest X-Ray 12/13/24 09:02 IMPRESSION: 1. Interstitial and airspace opacities in bilateral mid and lower lung zones which could represent congestive heart failure related mild pulmonary edema or pneumonia. 2. Cardiomegaly. Critical Care Time Critical Care Time Critical Care Time: Yes Total Critical Care Time: 35 Discharge Plan Discharge Clinical Impression: Acute dyspnea, Pulmonary edema, CHF exacerbation Patient Disposition: Still a Patient Condition: Serious
[2024-12-13 09:27] LABS: Basophils Absolute Auto 0.1 K/mm3 (0.0-0.1); Basophils Percent Auto 0.7 % (0.2-1.2); Eosinophils Absolute Auto 0.2 K/mm3 (0-0.3); Eosinophils Percent Auto 1.8 % (0-4.4); Hematocrit 39.3 % (42.0-52.0); Hemoglobin 12.7 g/dL (14.0-18.0); Immature Granulocyte Absolute 0.05 K/mm3 (0.00-0.031); Immature Granulocyte Percent A 0.6 % (0-0.5); Lymphocytes Absolute Auto 1.26 K/mm3 (0.9-3.2); Mean Corpuscular HGB Conc 32.3 g/dl (32-36); Mean Corpuscular Hemoglobin 30.7 pg (26-34); Mean Corpuscular Volume 94.9 fl (80-100); Monocytes Absolute Auto 0.7 K/mm3 (0.1-0.6); Monocytes Percent Auto 7.2 % (2.6-8.5); Neutrophils Absolute Auto 6.8 K/mm3 (1.3-6.7); Neutrophils Percent Auto 75.7 % (45.5-73.1); Platelet Count Result 202 k/mm3 (150-375); Red Blood Count 4.14 M/mm3 (4.6-6.20); Red Cell Distribution Width 14.6 % (11.5-14.5)
[2024-12-13 09:28] LABS: Alanine Aminotransferase 21 U/L (6-50); Albumin Level 4.2 g/dL (3.5-5.1); Alkaline Phosphatase 73 U/L (38-126); Anion Gap 10 mmol/L (4-12); Aspartate Amino Transferase 28 U/L (17-59); Bilirubin,Total 0.7 mg/dL (0.2-1.3); Blood Urea Nitrogen 21 mg/dL (9-20); Calcium 8.7 mg/dL (8.4-10.2); Carbon Dioxide 20 mmol/L (22-30); Chloride 109 mmol/L (98-107); Estimated CRCL calculation 57 ml/min; Estimated Glomerular Filt Rate > 60; Glucose 197 mg/dL (65-110); Potassium 4.2 mmol/L (3.4-5.0); Sodium 139 mmol/L (137-145)
[2024-12-13 09:35] LABS: INR 1.3; Prothrombin Time 16.7 Seconds (11.1-14.7)
[2024-12-13 09:40] LABS: NT Pro B Type Natriuretic Pept 7300 pg/mL (19.9-100); Troponin I 0.016 ng/mL (0.000-0.034)
[2024-12-13 10:09] LABS: Influenza A QL RT-PCR Negative (Negative); Influenza B QL RT-PCR Negative (Negative); RSV RNA, RT-PCR Negative (Negative); SARS-CoV-2 RNA PCR Negative (Negative)
--- OUTSIDE RECORDS SUMMARY | 2024-12-13 10:39 | XMS_ITS | Referral Summary ---
Author Organization [facility] Address [address] [place] [address] Care Team Providers Care Sas Etl Developer Name Role Phone Barry Ralph MD Primary Care Provider [phone] Rehan Sheth MD Unavailable [phone] Encounters Date Type Department Care Team Description 12/04/2024 Telephone [facility] Cardiology [address] [facility] Advanced Medicine 8th [place] [address] [place] [address] Rehan Sheth MD med list fax 11/11/2024 Telephone [facility] Cardiology [address] [facility] Advanced Medicine 8th [place] [address] [place] [address] Rehan Sheth MD 11/07/2024 10:15 AM CDT Office Visit [facility] Neurosurgery [facility] Medical Office Building 4 [address] [place] [address] Clayton Robertson DO Spinal stenosis of lumbar region with neurogenic claudication 11/05/2024 Telephone [facility] Cardiology [facility] Advanced [facility] 8th [place] [address] [place] [address] Rehan Sheth MD 11/05/2024 2:00 PM CDT Office Visit [facility] Cardiology [address] [place] [address] 8th [place] [address] [place] [address] Rehan Sheth MD 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 (Primary Dx); Paroxysmal atrial fibrillation (HCC); Chronic heart failure with preserved ejection fraction (HCC) 10/14/2024 SHOP/CHAP Subsequent Outreach [facility] [address] [place] [address] Sangita Moore, RN 10/10/2024 SHOP/CHAP Subsequent Outreach [facility] [address] [place] [address] Sangita Moore, RN 10/08/2024 Documentation [facility] [address] [place] [address] Yvonne Tanner, TIM 10/08/2024 SHOP/CHAP Subsequent Outreach [facility] 1 [place] [address] Sangita Moore, RN 10/07/2024 Telephone [facility] Cardiology [address] [place] [address] 8th [place] [address] [place] [address] Rehan Sheth MD shortness of breath/anxiety 10/07/2024 SHOP/CHAP Subsequent Outreach [facility] [address] [place] [address] Sangita Moore, RN 10/06/2024 SHOP/CHAP Subsequent Outreach [facility] [address] [place] [address] Sangita Moore, RN 10/06/2024 Results Follow-Up [facility] Cardiology [address] [place] [address] 8th [place] [address] [place] [address] Amanda Chatman RN 10/06/2024 2:18 PM ENDOCRINOLOGY PHYSICIAN - 10/06/2024 7:30 PM [facility] Emergency [facility] Emergency Department 1 [place] [address] Aneta Castellanos MD Altered mental status, unspecified altered mental status type (Primary Dx) Discharge Disposition: Discharge to home or self care 10/06/2024 Telephone [facility] Cardiology [address] [place] [address] 8th [place] [address] [place] [address] Rehan Sheth MD [facility] 10/03/2024 10:45 AM [facility] - 10/03/2024 12:00 PM [facility] Surgery [facility] [address] [address] Nigel Holman MD Right Left Heart Catheterization with Coronary Angiography with or without Left Ventriculography [id number] 10/03/2024 7:50 AM ENDOCRINOLOGY PHYSICIAN - 10/03/2024 5:48 PM [facility] Hospital Encounter [facility] [place] [address] [place] [address] Nigel Holman MD Chest pain, unspecified type (Primary Dx); Chronic systolic heart failure (HCC); 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; Acute on chronic heart failure, unspecified heart failure type (HCC); Paroxysmal atrial fibrillation (HCC); History of aortic valve replacement Discharge Disposition: Discharge to home or self care 09/30/2024 SHOP/CHAP Subsequent Outreach [facility]NAG[facility] [address] [place] [address] Sangita Moore RN 09/26/2024 SHOP/CHAP Subsequent Outreach [facility]NAGEMENT [address] [place] [address] Sangita Moore RN 09/25/2024 Orders Only [facility] Cardiology [address] [place] [address] 8th [place] [address] [place] [address] Naila Cortez RN High risk medications (not anticoagulants) long-term use (Primary Dx) 09/25/2024 Telephone [facility] Cardiology [address] [place] [address] [place] [address] [place] [address] Rehan Sheth MD 09/24/2024 7:40 PM ENDOCRINOLOGY PHYSICIAN Lab [facility] [address] [place], [place] [address] Chronic heart failure with preserved ejection fraction (HCC) 09/24/2024 Telephone [facility] Cardiology [address] [place] [address] Floor [address] [place] [phone] Rehan Sheth MD cardiac cath 09/24/2024 3:15 PM ENDOCRINOLOGY PHYSICIAN Office Visit [facility] Cardiology [address] [place] [address] [address] [place] [address] Rehan Sheth MD Chronic heart failure with preserved ejection fraction (HCC) (Primary Dx); History of aortic valve replacement; Benign essential hypertension; Paroxysmal atrial fibrillation (HCC) 09/23/2024 SHOP/CHAP Subsequent Outreach [facility] OP CASE MANAGEMENT [address] [place] [address] Sangita Moore, RN 09/17/2024 SHOP/CHAP Subsequent Outreach [facility] OP CASE MANAGEMENT [address] [place] [address] Sangita Moore, RN 09/15/2024 SHOP/CHAP Initial Outreach [facility] MANAGEMENT [address] [place] [address] Sangita Moore, RN 09/15/2024 Telephone [facility] Cardiology [address] [place] [address] [place] [address] [place] [address] Rehan Sheth MD f/u orders 09/15/2024 SHOP/CHAP Initial Eligibility Review [facility] [address] [place] [address] Sangita Moore RN 09/11/2024 12:49 PM ENDOCRINOLOGY PHYSICIAN - 09/14/2024 12:22 PM ENDOCRINOLOGY PHYSICIAN Hospital Encounter [facility] 1 [place] [address] Joseph Lucas MD [place], MD Melissa King, [...] without long-term current use of insulin ([facility]) Use to check blood sugar 3x daily 300 each 2 02/01/20 22 Active blood glucose diagnostic (True Metrix Glucose Test Strip) stripIndications:Ty pe 2 diabetes mellitus with hyperosmolarity without coma, without long-term current use of insulin ([facility]) TEST BLOOD SUGAR EVERY DAY 100 strip [...] type 09/11/2024 Coronary artery disease invo lving quileute coronary artery of quileute heart with angina pectoris 09/10/2024 Internal carotid [...] to ostial circ; RCA with a known MANAGEMENT LIAISON (angiography not performed). -s/p Successful PCI to [...] Plan (05/20/2024 11:34 AM CDT): Went to [facility] 05/17 for SOB, new 2L O2 requirement - OSH workup: Trp 1.95>5.1>10, proBNP 6800, CXR w/ mild interstitial edema - OSH LHC 9/30 w/ L main widely patent, LAD proximal body 80% stenosis, LAD stent w/ moderate ISR, L cx w/ 95% stenosis in proximal body, OM branches w/ mild disease, RCA is MANAGEMENT LIAISON in mid body w/ L to R collaterals - cath films uploaded - OSH TTE reportedly w/ EF 50%, AV prosthesis w/o abnormal gradients - trop here 7,6561, repeat pending - currently denies chest pain or pressure, sob improving - PCI today - continue heparin drip - continue asa, coreg, atorvastatin 80mg - telemetry Assessment & Plan (05/20/2024 1:02 AM CDT): Went to [facility] 05/17 for SOB, new 2L O2 requirement - OSH workup: Trp 1.95>5.1>10, proBNP 6800, CXR w/ mild interstitial edema - OSH LHC 9/30 w/ L main widely patent, LAD proximal body 80% stenosis, LAD stent w/ moderate ISR, L cx w/ 95% stenosis in proximal body, OM branches w/ mild disease, RCA is MANAGEMENT LIAISON in mid body w/ L to R [...] Assessment & Plan (05/21/2024 10:58 AM CDT): [facility] 05/17 for SOB, [...] benefi Assessment & Plan (07/04/2024 1:02 PM ENDOCRINOLOGY PHYSICIAN): He may just be symptomatic from his [...] Assessment & Plan (03/17/2024 1:48 PM CDT): Medical Collections Specialist stenosis and 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 Still [...] stenosis. Assessment & Plan (07/04/2024 1:03 PM ENDOCRINOLOGY PHYSICIAN): Failed LMBB. Assessment & Plan (04/23/2024 5:41 [...] of anticoagulants [Z79.0 1] 03/27/2018 Atrial fibrillation ([facility]) [I48.91] 8 Overview (09/04/2018): Dr. Sheth helps [...] quiescent Assessment & Plan (09/04/2018 10:33 AM ENDOCRINOLOGY PHYSICIAN): COPD is unchanged. COPD information handout given. [...] to PT - wants to go to [facility]. Trial robaxin. Flexeril on med list [...] no Assessment & Plan (10/01/2019 10:35 AM ENDOCRINOLOGY PHYSICIAN): S2 makes a wonderfully crisp snap w/o any regurge Gastroesophageal reflux disease 09/17/2014 Tussive syncope 08/25/2014 Syncope and collapse 08/21/2014 Syncope 08/21/2014 Type 2 diabetes mellitus 07/10/2014 Overview (05/13/2021): Was on levemir but stopped 2015 then on trulicity so on metformin ALONE We had better control w/ Phillip -since he has been w/ Dr Stockton [phone] has been on Actose and metformin- Off [...] heart- Assessment & Plan (10/01/2019 10:30 AM ENDOCRINOLOGY PHYSICIAN): His A1C has crept to 7.5% Admits [...] covered Assessment & Plan (09/04/2018 10:42 AM ENDOCRINOLOGY PHYSICIAN): Diabetes is worsening. Continue current treatment regimen. Reminded to bring in blood sugar diary at next visit. Dietary recommendations for ADA diet. Regular aerobic exercise. Discussed foot care. Reminded to get yearly retinal exam. Diabetes will be reassessed in 3 months. Given his financial concerns my advice is to use food as [facility] medicine Obesity with body mass index 30 or greater 07/09 Generalized anxiety disorder 07/09/2014 Assessment & Plan (10/01/2019 10:32 AM ENDOCRINOLOGY PHYSICIAN): He gets along nicely w/ a low [...] Smokeless Tobacco: Never Tobacco Cessation:Counseling Given: No [facility] Utilities Answer Date Recorded In the past 12 months has 2houses, [employer], oil, or water [employer] threatened to shut off services in your [...] often do you attend chur ch or caodaism services? More than 4 times per year [...] Date Recorded PHQ-2 Total Score 0 09/12/2024 [facility] Occupat ional [facility] - Occupational Stress Questionnaire Answer Date [...] any time in the past 12 m [facility], were you homeless or living in a jail (including now)? No 09/15/2024 Personal Safety Answer Date Recorded Have you ever been in or are you currently in a harmful physical or emotional relationship or is someone making you feel afraid or unsafe? Denies 10/06/2024 Sex and Gender Information Value Date Recorded Sex Assigned at Not on file Legal Sex Male 8:23 PM ENDOCRINOLOGY PHYSICIAN Gender Identity Not on file Sexual Orientation Not on file Last Filed Vital Signs Vital Sign Reading Time Taken Comments Blood Pressure 156/55 11/05/2024 2:02 PM CDT Pulse 56 11/05/2024 2:02 PM CDT Temperature 36.6 C (97.9 F) 10/06/2024 12:33 PM ENDOCRINOLOGY PHYSICIAN Respiratory Rate 10 10/06/2024 6:55 PM ENDOCRINOLOGY PHYSICIAN Oxygen Saturation 97% 11/05/2024 2:02 PM CDT [...] Plan Chronic Care Management Improving( 10:49 AM ENDOCRINOLOGY PHYSICIAN) Nenita Sanchez RN Note: Problem: Chronic Pain Goals: 1. Minimize further functional decline 2. Maximize quality of life 3. Control pain Strategies: - Activity/exercise program recommendation - Conservative stepwise pain medicine strategy with multi-disciplinary approach - Recommend healthy lifestyle strategies and compensatory methods as needed Medical Devices Implanted Type Area Cooperative Education Coordinator Device Identifier Shelf Expiration Date Model / Serial / Lot [employer] Angio-Seal Vip Bondek-Plus 8fr .038in 70cm Hemostatic Latex Free [id number] - [id number] - [id number] Implanted:Qty : 1 on 05/20/2024 by Ppao Rascon MD at [facility] Collagen Right: Common Femoral Artery [employer] 12/10/2024 [id number] / [id number] / [id number] Prosthetic Valve Prosthetic Valve Heart Description:Heart Valve Medtronic Card Vasc Surgery 4.0 X 12mm [place] Rx Coronary Stent [id number] - [id number] - [id number] Implanted:Qty : 1 on 05/20/2024 by Vitor Pedroza MD at [facility] Stent N/A: Circumflex Coronary Artery Medtronic Card Vasc Surgery 01/11/2027 [id number] / [id number] / [id number] Medtronic Card Vasc Surgery 4.0 X 12mm [place] Franklin Rx Coronary Stent [id number] - [id number] - [id number] Implanted:Qty : 1 on 05/20/2024 by Vitor Pedroza MD at [facility] Stent Left: Anterior Descending Cornary Artery Medtronic Card Vasc Surgery 11/14/2026 [id number] / [id number] / [id number] Medtronic Card Vasc Surgery 4.0 X 18mm [place] Franklin Rx Coronary Stent [id number] - [id number] - [id number] Implanted:Qty : 1 on 10/03/2024 by Nigel Holman MD at [facility] Stent Left: Anterior Descending Cornary Artery Medtronic Card Vasc Surgery 04/14/2027 [id number] / [id number] / [id number] Description:Adrian TO lad Procedures Procedure Name Priority Date/Time Associated Diagnosis Comments URINALYSIS, MICROSCOPIC ONLY STAT 10/06/2024 5:51 PM ENDOCRINOLOGY PHYSICIAN URINALYSIS AND REFLEX TO MICROSCOPIC STAT 10/06/2024 5:51 PM ENDOCRINOLOGY PHYSICIAN COMPREHENSIVE METABOLIC PANEL Routine 10/06/2024 3:59 PM ENDOCRINOLOGY PHYSICIAN EGFR Routine 10/06/2024 3:59 PM ENDOCRINOLOGY PHYSICIAN VITAMIN B12 Routine 10/06/2024 3:59 PM ENDOCRINOLOGY PHYSICIAN TSH Routine 10/06/2024 3:59 PM ENDOCRINOLOGY PHYSICIAN CBC WITHOUT DIFFERENTIAL Routine 10/06/2024 3:59 PM ENDOCRINOLOGY PHYSICIAN RESPIRATORY PATHOGEN PANEL STAT 10/06/2024 3:[address] HEAD WO CONTRAST ED 10/06/2024 3 :37 PM ENDOCRINOLOGY PHYSICIAN XR CHEST PA LATERAL 2 VIEWS ED 10/06/2024 3:30 PM ENDOCRINOLOGY PHYSICIAN ECG 12-LEAD STAT 10/06/2024 1:07 PM ENDOCRINOLOGY PHYSICIAN POCT GLUCOSE DEVICE Routine 10/06/2024 1 2:48 PM ENDOCRINOLOGY PHYSICIAN EGFR Routine 10/03/2024 4:00 PM ENDOCRINOLOGY PHYSICIAN DIFFERENTIAL AUTO Routine 10/03/2024 4:0 0 PM ENDOCRINOLOGY PHYSICIAN CBC WITH AUTO DIFFERENTIAL Routine 10/03/2024 4:00 PM ENDOCRINOLOGY PHYSICIAN BASIC METABOLIC PANEL Routine 10/03/2024 4:00 PM ENDOCRINOLOGY PHYSICIAN POCT ACTIVATED CLOTTING TIME, LOW RANGE Routine 10/03/2024 2:14 PM ENDOCRINOLOGY PHYSICIAN RIGHT AND LEFT HEART CATHETERIZATION Routine 10/03/2024 12:42 PM ENDOCRINOLOGY PHYSICIAN Chronic systolic heart failure (HCC) 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 Acute on chronic heart failure, unspecified heart failure type (HCC) Paroxysmal atrial fibrillation (HCC) History of aortic valve replacement POCT ACTIVATED CLOTTING TIME, LOW RANGE Routine 10/03/2024 12:42 PM ENDOCRINOLOGY PHYSICIAN TYPE AND SCREEN Timed 10/03/2024 12:20 PM ENDOCRINOLOGY PHYSICIAN POCT ACTIVATED CLOTTING TIME, LOW RANGE Routine 10/03/2024 12:06 PM ENDOCRINOLOGY PHYSICIAN POCT OXYHEMOGLOBIN - DEVICE Routine 10/03/2024 11:47 AM ENDOCRINOLOGY PHYSICIAN POCT OXYHEMOGLOBIN - DEVICE Routine 10/03/2024 11:45 AM ENDOCRINOLOGY PHYSICIAN CBC WITHOUT DIFFERENTIAL Routine 10/03/2024 11:45 AM ENDOCRINOLOGY PHYSICIAN POCT OXYHEMOGLOBIN - DEVICE Routine 10/03/2024 11:44 AM ENDOCRINOLOGY PHYSICIAN POCT GLUCOSE DEVICE Routine 10/03/2024 8 :45 AM ENDOCRINOLOGY PHYSICIAN BASIC METABOLIC PANEL Routine 09/29/2024 9:42 AM ENDOCRINOLOGY PHYSICIAN High risk medications (not anticoagulants) long-term use EGFR Routine 09/24/2024 5:03 PM ENDOCRINOLOGY PHYSICIAN Chronic heart failure with preserved ejection fraction (HCC) DIFFERENTIAL AUTO Routine 09/24/2024 5:0 3 PM ENDOCRINOLOGY PHYSICIAN Chronic heart failure with preserved ejection fraction (HCC) BASIC METABOLIC PANEL Routine 09/24/2024 5:03 PM ENDOCRINOLOGY PHYSICIAN Chronic heart failure with preserved ejection fraction (HCC) PRO B-TYPE NATRIURETIC PEPTIDE Routine 09/24/2024 5:03 PM ENDOCRINOLOGY PHYSICIAN Chronic heart failure with preserved ejection fraction (HCC) CBC WITH AUTO DIFFERENTIAL Routine 09/24/2024 5:03 PM ENDOCRINOLOGY PHYSICIAN Chronic heart failure with preserved ejection fraction (HCC) ECG 12-LEAD Routine 09/24/2024 4:01 PM ENDOCRINOLOGY PHYSICIAN History of aortic valve replacement EGFR STAT 09/14/2024 8:23 AM ENDOCRINOLOGY PHYSICIAN BASIC METABOLIC PANEL STAT 09/14/2024 8:23 AM ENDOCRINOLOGY PHYSICIAN HEMOGLOBIN A1C Routine 06/07/2024 8:38 AM CDT LIPID PANEL Routine 06/07/2024 8:38 AM CDT DIABETES FOOT EXAM Routine 11/05/2020 DIABETES EYE EXAM Routine 05/05/2019 from Last 3 Months or Most Recently Relevant to Health Maintenance Results * (ABNORMAL) Urinalysis reflex to microscopic (10/06/2024 5:51 PM ENDOCRINOLOGY PHYSICIAN) Color, ur Straw Yellow Clarity, ur Clear Clear [facility] Specific gravity, ur 1.010 1.003 - 1.030 [facility] pH, urine 6.0 [facility] Comment: Interpretive Data U rine pH is affected by diet, medications, systemic acid-base disturbances, and renal tubular function. pH may affect urinary stone formation. For example, urine pH below 6.0 may help reduce the tendency for calcium phosphate stones and pH greater than 6.0 may reduce the tendency for uric acid stone formation. Source: [employer] Current Interpretive Data was last revised on 2017 Protein, ur ql Negative Negative [facility] Glucose, ur ql Negative Negative [facility] Ketones, ur Negative Negative [facility] Bilirubin, ur Negative Negative [facility] Blood, ur Negative Negative [facility] Urobilinogen, ur <2.0 <2.0 mg/dL [facility] Nitrite, ur Negative Negative [facility] Leukocyte esterase, ur Trace(A) Negative [facility] UA reflex comment Reflex to microscopic UA will be performed. [facility] Urine 10/06/2024 5:51 PM ENDOCRINOLOGY PHYSICIAN 10/06/2024 5:58 PM ENDOCRINOLOGY PHYSICIAN Aneta Castellanos MD LAB URINE ORDERABLES Final R esult Performing Organization Address [facility] [[email or web address]] Co de Phone Number [facility] Department [place] [address] * (ABNORMAL) Urinalysis, microscopic only (10/06/2024 5:51 PM ENDOCRINOLOGY PHYSICIAN) Pathologist [facility] WBC, ur 0-5 0 - 5 /HPF RBC, ur 0-2 0 - 2 /HPF [facility] Epithelial cells, squamous, ur 1-5 0 - 5 /HPF [facility] Epithelial cells, transitional, ur 1-5 0 - 0 /HPF [facility] Bacteria, ur Trace(A) [facility] Mucous, ur Present(A) [facility] Hyaline casts, ur 6-10 0 - 10 /LPF [facility] Urine 10/06/2024 5:51 PM ENDOCRINOLOGY PHYSICIAN 10/06/2024 5:58 PM ENDOCRINOLOGY PHYSICIAN Aneta Castellanos MD LAB URINE ORDERABLES Final R esult Performing Organization Address [facility]/ZIP Co de Phone Number [facility] [place] [address] * eGFR (10/06/2024 3:59 PM ENDOCRINOLOGY PHYSICIAN) Pathologist [facility] eGFR 64 >=60 mL/min/1. 73 m2 Comment: [...] last reviewed 2021. Blood 10/06/2024 3:59 PM ENDOCRINOLOGY PHYSICIAN 10/06/2024 4:26 PM ENDOCRINOLOGY PHYSICIAN Aneta Castellanos MD LAB BLOOD ORDERABLES Final R esult [facility] Department [place] [address] * Respiratory pathogen panel Nasopharyngeal (10/06/2024 3:59 PM ENDOCRINOLOGY PHYSICIAN) Pathologist [facility] Influenza A RNA Not Detected Not Detected Influenza B RNA Not Detected Not Detected [facility] RSV RNA Not Detected Not Detected [facility] COVID-19 RNA Not Detected Not Detected [facility] Coronavirus 229E RNA Not Detected Not Detected [facility] Coronavirus HKU1 RNA Not Detected Not Detected [facility] Coronavirus NL63 RNA Not Detected Not Detected [facility] Coronavirus OC43 RNA Not Detected Not Detected [facility] Adenovirus DNA Not Detected Not Detected [facility] Metapneumovirus RNA Not Detected Not Detected [facility] Rhinovirus/Enterov irus RNA Not Detected Not Detected [facility] Parainfluenza 1 RNA Not Detected Not Detected [facility] Parainfluenza 2 RNA Not Detected Not Detected [facility] Parainfluenza 3 RNA Not Detected Not Detected [facility] Parainfluenza 4 RNA Not Detected Not Detected [facility] B. pertussis DNA Not Detected Not Detected [facility] B. parapertussis DNA Not Detected Not Detected [facility] C. pneumoniae DNA Not Detected Not Detected [facility] M. pneumoniae DNA Not Detected Not Detected [facility] Nasopharyngeal 10/06/2024 3: 59 PM ENDOCRINOLOGY PHYSICIAN 10/06/2024 4:19 PM ENDOCRINOLOGY PHYSICIAN Narrative [facility] - 10/06/2024 6:14 PM ENDOCRINOLOGY PHYSICIAN Is the Patient experiencing symptoms consistent with COVID?->No Surveillance testing for transplant patient?->No Interpretive Data [employer] FilmArray Respiratory Panel (RP2.1) assay is a [...] assay has FDA clearance for testing of TRADE SHOW COORDINATOR swabs. The performance of additional specimen types has been assessed by the performing laboratory. The performance characteristics of this assay have been determined by [facility] Molecular Infectious Disease Laboratory. Current interpretive data was last revised on 22. us Oralia Cummings MD LAB MICROBIOLOGY - GENERAL OR DERABLES Final Result Performing Organization Address City/[facility]/ZIP Co de Phone Number [facility] One [facility] Department [place] [address] * (ABNORMAL) CBC without differential (10/06/2024 3:59 PM ENDOCRINOLOGY PHYSICIAN) WBC 6.8 3.8 - 9.9 K/cumm Hgb 11.5(L) 13.0 - 17.5 g/dL [facility] Hct 34.1(L) 38.9 - 50.3 % [facility] Plt 162 150 - 400 K/cumm [facility] MPV 11.4 9.1 - 12.3 fL [facility] RBC 3.72(L) 4.30 - 5.80 M/cumm [facility] MCV 91.7 81.3 - 96.4 fL [facility] MCH 30.9 27.1 - 33.3 pg [facility] MCHC 33.7 32.3 - 35.7 g/dL [facility] RDW CV 14.7 11.1 - 14.9 % [facility] RDW SD 49.6(H) 35.7 - 48.1 fL [facility] NRBC abs 0.00 0.00 - 0.01 K/cumm [facility] Blood 10/06/2024 3:59 PM ENDOCRINOLOGY PHYSICIAN 10/06/2024 4:26 PM ENDOCRINOLOGY PHYSICIAN us Priscilla Sarmiento MD LAB BLOOD ORDERABLES Final R esult Performing Organization Address City/[facility]/ZIP Co de Phone Number [facility] [place] [address] * TSH (10/06/2024 3:59 PM ENDOCRINOLOGY PHYSICIAN) [facility] Thyroid Stimulating Hormone 3.88 0.30 - 4.20 mcIUnit/mL Blood 10/06/2024 3:59 PM ENDOCRINOLOGY PHYSICIAN 10/06/2024 4:09 PM ENDOCRINOLOGY PHYSICIAN us Oralia Cummings MD LAB BLOOD ORDERABLES Final Re sult Performing Organization Address [facility] [[email or web address]] Co de Phone Number [facility] [place] [address] * Vitamin B12 (10/06/2024 3:59 PM ENDOCRINOLOGY PHYSICIAN) [facility] Vitamin B12 420 230 - 1,250 pg/mL Blood 10/06/2024 3:59 PM ENDOCRINOLOGY PHYSICIAN 10/06/2024 4:09 PM ENDOCRINOLOGY PHYSICIAN us Oralia Cummings MD LAB BLOOD ORDERABLES Final Re sult Performing Organization Address [facility] de Phone Number [facility] [place] [address] * (ABNORMAL) Comprehensive metabolic panel (10/06/2024 3:59 PM ENDOCRINOLOGY PHYSICIAN) [facility] Sodium 143 135 - 145 mmol/L Potassium, pl 4.3 3.3 - 4.9 mmol/L [facility] Chloride 104 97 - 110 mmol/L [facility] CO2 26 22 - 32 mmol/L [facility] Anion gap 13 2 - 15 mmol/L [facility] BUN 26(H) 6 - 25 mg/dL [facility] Creatinine 1.12 0.80 - 1.30 mg/dL [facility] Glucose 94 70 - 199 mg/dL [facility] Comment: Interpretive Data Fasting glucose [...] Calcium 9.1 8.5 - 10.3 mg/dL [facility] Bilirubin, total 0.4 0.1 - 1.2 mg/dL [facility] Protein, pl 7.1 6.5 - 8.5 g/dL [facility] Albumin 3.9 3.5 - 5.0 g/dL [facility] Alk phos 45 40 - 130 Units/L [facility] ALT 15 7 - 55 Units/L [facility] AST 37 10 - 50 Units/L [facility] Blood 10/06/2024 3:59 PM ENDOCRINOLOGY PHYSICIAN 10/06/2024 4:09 PM ENDOCRINOLOGY PHYSICIAN us Aneta Castellanos MD LAB BLOOD ORDERABLES Final R esult [facility] [place] [address] * CT Head WO Contrast (10/06/2024 3:37 PM ENDOCRINOLOGY PHYSICIAN) Anatomical Region Laterality Modality Head and Neck N/A Computed Tomogra phy 10/06/2024 4:29 PM ENDOCRINOLOGY PHYSICIAN Impressions 10/06/2024 4:41 PM ENDOCRINOLOGY PHYSICIAN No acute intracranial hemorrhage, large vessel territory infarction, mass effect, or midline shift. Dictated by: Nikolas Vega M.D. The radiology attending physician has personally reviewed this study, and had reviewed and/or edited this written report and agrees with it. Electronically signed by: Johnny Ballesteros M.D, PHD Narrative 10/06/2024 4:41 PM ENDOCRINOLOGY PHYSICIAN EXAMINATION: CT head without contrast HISTORY: Altered [...] mass effect, or midline shift. Dictated by: Nkiolas Vega M.D. The radiology attending physician has personally reviewed this study, and had reviewed and/or edited this written report and agrees with it. Electronically signed by: Johnyn Ballesteros M.D, PHD us Priscilla Sarmiento MD IMG CT PROCEDURES Final Resu lt * XR Chest PA Lateral 2 Views (10/06/2024 3:30 PM ENDOCRINOLOGY PHYSICIAN) Anatomical Region Laterality Modality Body, Chest N/A Computed Radiogr aphy 10/06/2024 3:42 PM ENDOCRINOLOGY PHYSICIAN Impressions 10/06/2024 3:49 PM ENDOCRINOLOGY PHYSICIAN Comparison with chest radiograph dated 07/12/2025. Median [...] Luna Perez M.D. Narrative 10/06/2024 3:49 PM ENDOCRINOLOGY PHYSICIAN EXAMINATION: 2 view chest radiograph Procedure Note [...] lt * ECG 12-LEAD (10/06/2024 1:07 PM ENDOCRINOLOGY PHYSICIAN) Narrative [facility] - 10/06/2024 1:07 PM ENDOCRINOLOGY PHYSICIAN Nupur Orozco MD 10/06/2024 1:08 PM ECG 12 lead Date/Time: 10/06/2024 1:07 PM Performed by: Nupur Orozco MD Authorized by: Jaylen Petersen MD Comments: EKG Interpretation Interpreted by ED physician in absence of a grocery packer Ventricular rate: 65 bpm Rhythm: sinus with PACs [place]: Normal Intervals: 1st degree av block, wide QRS Other findings: no acute ischemia Interpretation: abnormal EKG, LBBB, ectopy Compared to priors: no priors for comparison us Aneta Castellanos MD ECG ORDERABLES Final Result [facility] * POCT glucose (10/06/2024 12:48 PM ENDOCRINOLOGY PHYSICIAN) Glucose, POC 112 70 - 199 mg/dL Blood 10/06/2024 12:4 8 PM ENDOCRINOLOGY PHYSICIAN 10/06/2024 12:48 PM ENDOCRINOLOGY PHYSICIAN us Notinfile Unknown LAB POCT ORDERABLES - DEVICE F inal Result Performing Organization Address City/[facility]/ZIP Co de Phone Number [facility] [place] [address] * eGFR (10/03/2024 4:00 PM ENDOCRINOLOGY PHYSICIAN) eGFR 73 >=60 mL/min/1. 73 m2 Comment: [...] last reviewed 2021. Blood 10/03/2024 4:00 PM ENDOCRINOLOGY PHYSICIAN 10/03/2024 4:23 PM ENDOCRINOLOGY PHYSICIAN us Crescencio Vázquez MD LAB BLOOD ORDERABLES Fi nal Result [facility] Department [place] [address] * Differential, auto (10/03/2024 4:00 PM ENDOCRINOLOGY PHYSICIAN) Neutrophil abs 3.7 1.5 - 6.5 K/cumm Imm gran abs 0.0 0.0 - 0.1 K/cumm [facility] Lymphocyte abs 1.5 0.8 - 3.3 K/cumm [facility] Monocyte abs 0.4 0.2 - 0.8 K/cumm [facility] Eosinophil abs 0.2 0.0 - 0.5 K/cumm [facility] Basophil abs 0.0 0.0 - 0.1 K/cumm [facility] Neutrophil pct 63.5 % [facility] Comment: Interpretive Data Percent cell count reference ranges are not reported, since discordance with absolute values may lead to misinterpretation of CBC data. Current Interpretive Data was last revised on 2017. Imm gran pct 0.3 % [facility] Comment: Interpretive Data Percent cell count reference ranges are not reported, since discordance with absolute values may lead to misinterpretation of CBC data. Current Interpretive Data was last revised on 2017. Lymphocyte pct 26.0 % [facility] Comment: Interpretive Data Percent cell count reference ranges are not reported, since discordance with absolute values may lead to misinterpretation of CBC data. Current Interpretive Data was last revised on 2017. Monocyte pct 7.1 % [facility] Comment: Interpretive Data Percent cell count reference ranges are not reported, since discordance with absolute values may lead to misinterpretation of CBC data. Current Interpretive Data was last revised on 2017. Eosinophil pct 2.6 % [facility] Comment: Interpretive Data Percent cell count reference ranges are not reported, since discordance with absolute values may lead to misinterpretation of CBC data. Current Interpretive Data was last revised on 2017. Basophil pct 0.5 % [facility] Comment: Interpretive Data Percent cell count reference ranges are not reported, since discordance with absolute values may lead to misinterpretation of CBC data. Current Interpretive Data was last revised on 2017. Blood 10/03/2024 4:00 PM ENDOCRINOLOGY PHYSICIAN 10/03/2024 4:18 PM ENDOCRINOLOGY PHYSICIAN Crescencio Vázquez MD LAB BLOOD ORDERABLES Fi nal Result Performing Organization Address [facility]/ZIP Co de Phone Number [facility] Department [place] [address] * (ABNORMAL) CBC with auto differential (10/03/2024 4:00 PM ENDOCRINOLOGY PHYSICIAN) [facility] WBC 5.8 3.8 - 9.9 K/cumm Hgb 10.8(L) 13.0 - 17.5 g/dL [facility] Hct 32.5(L) 38.9 - 50.3 % [facility] Plt 143(L) 150 - 400 K/cumm [facility] MPV 11.6 9.1 - 12.3 fL [facility] RBC 3.54(L) 4.30 - 5.80 M/cumm [facility] MCV 91.8 81.3 - 96.4 fL [facility] MCH 30.5 27.1 - 33.3 pg [facility] MCHC 33.2 32.3 - 35.7 g/dL [facility] RDW CV 14.4 11.1 - 14.9 % [facility] RDW SD 48.6(H) 35.7 - 48.1 fL [facility] NRBC abs 0.00 0.00 - 0.01 K/cumm [facility] Blood 10/03/2024 4:00 PM ENDOCRINOLOGY PHYSICIAN 10/03/2024 4:18 PM ENDOCRINOLOGY PHYSICIAN Crescencio Vázquez MD LAB BLOOD ORDERABLES Fi nal Result Performing Organization Address City/[facility]/ZIP Co de Phone Number [facility] One [facility] [place] [address] * Basic metabolic panel (10/03/2024 4:00 PM ENDOCRINOLOGY PHYSICIAN) Pathologist [facility] Sodium 142 135 - 145 mmol/L Potassium, pl 3.8 3.3 - 4.9 mmol/L [facility] Chloride 104 97 - 110 mmol/L [facility] CO2 28 22 - 32 mmol/L [facility] Anion gap 10 2 - 15 mmol/L [facility] BUN 17 6 - 25 mg/dL [facility] Creatinine 1.01 0.80 - 1.30 mg/dL [facility] Glucose 179 70 - 199 mg/dL [facility] Comment: Interpretive Data Fasting glucose [...] 2022. Calcium 8.5 8.5 - 10.3 mg/dL [facility] Blood 10/03/2024 4:00 PM ENDOCRINOLOGY PHYSICIAN 10/03/2024 4:18 PM ENDOCRINOLOGY PHYSICIAN us Crescencio Vázquez MD LAB BLOOD ORDERABLES Fi nal Result Performing Organization Address City/[facility]/ZIP Co de Phone Number [facility] [place] [address] * (ABNORMAL) POCT Activated clotting time, low range (10/03/2024 2:14 PM ENDOCRINOLOGY PHYSICIAN) ACT 181(H) 123 - 168 sec POC Performer [id number] [facility] POC Device Number [id number] [facility] Blood 10/03/2024 2:14 PM ENDOCRINOLOGY PHYSICIAN 10/03/2024 2:14 PM ENDOCRINOLOGY PHYSICIAN us Nigel Holman MD LAB POCT ORDERABLES - DEVICE Final Result Performing Organization Address City/[facility]/ZIP Co de Phone Number [facility] [place] [address] * RIGHT AND LEFT HEART CATHETERIZATION (10/03/2024 12:42 PM ENDOCRINOLOGY PHYSICIAN) Anatomical Region Laterality Modality X-Ray Angiograph y Impressions 10/03/2024 2:26 PM ENDOCRINOLOGY PHYSICIAN Severe stenosis of the mid LAD with [...] Nigel Holman MD Narrative 10/03/2024 2:26 PM ENDOCRINOLOGY PHYSICIAN Table formatting from the original result was not included. Procedure: CORONARY ANGIOGRAM / RIGHT HEART CATHETERIZATION/ percutaneous coronary intervention Patient: Ashkan Pryor is a 84 y.o. male : 1940 MR number: [id number] Date of Service: 10/03/2024 C Wpf Developer: Nigel Holman MD Fellow: Crescencio Vázquez MD [...] obtained. The patient was brought to the high density press laborer and placed on the table Bilateral groins [...] performed Right heart catheterization preformed with 7 Bengali arrow [place] At the end of the procedure, arteriotomy [...] vasodilators and reimage that showed some slight worship of flow. Upon review it looks as [...] clotting time, low range (10/03/2024 12:42 PM ENDOCRINOLOGY PHYSICIAN) [facility] ACT 252(H) 123 - 168 sec POC Performer [id number] [facility] POC Device Number [id number] [facility] Blood 10/03/2024 12:4 2 PM ENDOCRINOLOGY PHYSICIAN 10/03/2024 12:42 PM ENDOCRINOLOGY PHYSICIAN Result [facility] Nigel Holman MD LAB POCT ORDERABLES - DEVICE Final Result Performing Organization Address City/[facility]/ZIP Co de Phone Number [facility] One [facility] [place] [address] * Type and screen (10/03/2024 12:20 PM ENDOCRINOLOGY PHYSICIAN) [facility] Lit, indirect Negative ABO Rh A Positive [facility] Blood 10/03/2024 12:2 0 PM ENDOCRINOLOGY PHYSICIAN 10/03/2024 12:39 PM ENDOCRINOLOGY PHYSICIAN Narrative [facility] - 10/03/2024 1:32 PM ENDOCRINOLOGY PHYSICIAN Has the patient had Daratumumab or Isatuximab in the past 6 months?->Unknown Nigel Holman MD LAB BLOOD BANK TEST ORDERABL ES Final Result Performing Organization Address City/[facility]/ZIP Co de Phone Number [facility] [place] [address] * (ABNORMAL) POCT Activated clotting time, low range (10/03/2024 12:06 PM ENDOCRINOLOGY PHYSICIAN) Pathologist [facility] ACT 240(H) 123 - 168 sec POC Performer [id number] [facility] POC Device Number [id number] [facility] Blood 10/03/2024 12:0 6 PM ENDOCRINOLOGY PHYSICIAN 10/03/2024 12:06 PM ENDOCRINOLOGY PHYSICIAN us Nigel Holman MD LAB POCT ORDERABLES - DEVICE Final Result Performing Organization Address [facility] [[email or web address]] [place] [address] * (ABNORMAL) POCT oxyhemoglobin (10/03/2024 11:47 AM ENDOCRINOLOGY PHYSICIAN) [facility] MOTOR VEHICLE EMISSIONS INSPECTOR Oxyhemoglobin 95.3 >=65.0 % [employer] VEHIC[employer] EMISSIONS INSPECTOR Hemoglobin 11.7(L) 13.0 - 17.5 g/dL [facility] MOTOR VEHICLE EMISSIONS INSPECTOR O2 content 15.5 15.0 - 22.0 Vol % [facility] Anatomic Site aPOC Aorta descend [facility] Blood 10/03/2024 11:4 7 AM ENDOCRINOLOGY PHYSICIAN 10/03/2024 11:47 AM ENDOCRINOLOGY PHYSICIAN us Nigel Holman MD LAB POCT ORDERABLES - DEVICE Final Result Performing Organization Address City/[facility]/ZIP Co de Phone Number [facility] [place] [address] * (ABNORMAL) POCT oxyhemoglobin (10/03/2024 11:45 AM ENDOCRINOLOGY PHYSICIAN) [facility] MOTOR VEHICLE EMISSIONS INSPECTOR Oxyhemoglobin 67.9 >=65.0 % [employer]OR VEHICLE EMISSIONS INSPECTOR Hemoglobin 11.0(L) 13.0 - 17.5 g/dL [facility] MOTOR VEHICLE EMISSIONS INSPECTOR O2 content 10.4(L) 15.0 - 22.0 Vol % [facility] Anatomic Site aPOC Pulm Art main [facility] Blood 10/03/2024 11:4 5 AM ENDOCRINOLOGY PHYSICIAN 10/03/2024 11:45 AM ENDOCRINOLOGY PHYSICIAN us Nigel Holman MD LAB POCT ORDERABLES - DEVICE Final Result Performing Organization Address City/[facility]/ZIP Co de Phone Number [facility] Department [place] [address] * (ABNORMAL) CBC without differential (10/03/2024 11:45 AM ENDOCRINOLOGY PHYSICIAN) WBC 6.8 3.8 - 9.9 K/cumm Hgb 11.3(L) 13.0 - 17.5 g/dL [facility] Hct 34.2(L) 38.9 - 50.3 % [facility] Plt 142(L) 150 - 400 K/cumm [facility] MPV 11.3 9.1 - 12.3 fL [facility] RBC 3.65(L) 4.30 - 5.80 M/cumm [facility] MCV 93.7 81.3 - 96.4 fL [facility] MCH 31.0 27.1 - 33.3 pg [facility] MCHC 33.0 32.3 - 35.7 g/dL [facility] RDW CV 14.1 11.1 - 14.9 % [facility] RDW SD 49.1(H) 35.7 - 48.1 fL [facility] NRBC abs 0.00 0.00 - 0.01 K/cumm [facility] Blood 10/03/2024 11:4 5 AM ENDOCRINOLOGY PHYSICIAN 10/03/2024 11:51 AM ENDOCRINOLOGY PHYSICIAN Narrative [facility] - 10/03/2024 12:12 PM ENDOCRINOLOGY PHYSICIAN To be drawn after hydration bolus complete us Nigel Holman MD LAB BLOOD ORDERABLES Final R esult Performing Organization Address City/[facility]/ZIP Co de Phone Number [facility] Department [place] [address] * (ABNORMAL) POCT oxyhemoglobin (10/03/2024 11:44 AM ENDOCRINOLOGY PHYSICIAN) [facility] MOTOR VEHICLE EMISSIONS INSPECTOR Oxyhemoglobin 69.1 >=65.0 % MOTOR VEHICLE EMISSIONS INSPECTOR Hemoglobin 11.3(L) 13.0 - 17.5 g/dL [facility] MOTOR VEHICLE EMISSIONS INSPECTOR O2 content 10.9(L) 15.0 - 22.0 Vol % [facility] Anatomic Site aPOC Pulm Art main [facility] Blood 10/03/2024 11:4 4 AM ENDOCRINOLOGY PHYSICIAN 10/03/2024 11:44 AM ENDOCRINOLOGY PHYSICIAN Nigel Holman MD LAB POCT ORDERABLES - DEVICE Final Result Performing Organization Address City/[facility]/ZIP Co de Phone Number [facility] Department [place] [address] * POCT glucose (10/03/2024 8:45 AM ENDOCRINOLOGY PHYSICIAN) [facility] Glucose, POC 117 70 - 199 mg/dL Blood 10/03/2024 8:45 AM ENDOCRINOLOGY PHYSICIAN 10/03/2024 8:45 AM ENDOCRINOLOGY PHYSICIAN Nigel Holman MD LAB POCT ORDERABLES - DEVICE Final Result Performing Organization Address City/[facility] [[email or web address]] Co de Phone Number [facility] Department [place] [address] * Basic metabolic panel (09/29/2024 9:42 AM ENDOCRINOLOGY PHYSICIAN) [facility] Glucose 99 65 - 99 mg/dL [employer] Comment: Fasting reference interval BUN 23 7 - 25 mg/dL [employer] [facility] Creatinine 0.96 0.70 - 1.22 mg/dL [employer] [facility] [place] eGFR 77 > OR = 60 mL/min/1.7 3m2 [employer] [facility] BUN/creat ratio SEE NOTE: 6 (calc) [facility] [place] Comment: Not Reported: BUN and Creatinine are within reference range. Sodium 142 135 - 146 mmol/L [employer] Potassium, pl 4.0 3.5 - 5.3 mmol/L [facility] Chloride 103 98 - 110 mmol/L [facility] CO2 32 20 - 32 mmol/L [facility] Calcium 8.9 8.6 - 10.3 mg/dL [facility] Blood 09/29/2024 9:42 AM ENDOCRINOLOGY PHYSICIAN 09/29/2024 9:42 AM ENDOCRINOLOGY PHYSICIAN Rehan Sheth MD LAB BLOOD ORDERABLES F inal Result [facility] [employer] [facility] [address] [place] [address] * (ABNORMAL) eGFR (09/24/2024 5:03 PM ENDOCRINOLOGY PHYSICIAN) eGFR 55(L) >=60 mL/min/1. 73 m2 Comment: [...] last reviewed 2021. Blood 09/24/2024 5:03 PM ENDOCRINOLOGY PHYSICIAN 09/24/2024 5:24 PM ENDOCRINOLOGY PHYSICIAN Rehan Sheth MD LAB BLOOD ORDERABLES F inal Result [facility] Department [place] [address] * Differential, auto (09/24/2024 5:03 PM ENDOCRINOLOGY PHYSICIAN) Neutrophil abs 3.6 1.5 - 6.5 K/cumm Imm gran abs 0.0 0.0 - 0.1 K/cumm [facility] Lymphocyte abs 1.9 0.8 - 3.3 K/cumm [facility] Monocyte abs 0.6 0.2 - 0.8 K/cumm [facility] Eosinophil abs 0.2 0.0 - 0.5 K/cumm [facility] Basophil abs 0.0 0.0 - 0.1 K/cumm [facility] Neutrophil pct 56.5 % [facility] Comment: Interpretive Data Percent cell count reference ranges are not reported, since discordance with absolute values may lead to misinterpretation of CBC data. Current Interpretive Data was last revised on 2017. Imm gran pct 0.6 % [facility] Comment: Interpretive Data Percent cell count reference ranges are not reported, since discordance with absolute values may lead to misinterpretation of CBC data. Current Interpretive Data was last revised on 2017. Lymphocyte pct 30.0 % [facility] Comment: Interpretive Data Percent cell count reference ranges are not reported, since discordance with absolute values may lead to misinterpretation of CBC data. Current Interpretive Data was last revised on 2017. Monocyte pct 9.1 % [facility] Comment: Interpretive Data Percent cell count reference ranges are not reported, since discordance with absolute values may lead to misinterpretation of CBC data. Current Interpretive Data was last revised on 2017. Eosinophil pct 3.3 % [facility] Comment: Interpretive Data Percent cell count reference ranges are not reported, since discordance with absolute values may lead to misinterpretation of CBC data. Current Interpretive Data was last revised on 2017. Basophil pct 0.5 % [facility] Comment: Interpretive Data Percent cell count reference ranges are not reported, since discordance with absolute values may lead to misinterpretation of CBC data. Current Interpretive Data was last revised on 2017. Blood 09/24/2024 5:03 PM ENDOCRINOLOGY PHYSICIAN 09/24/2024 5:24 PM ENDOCRINOLOGY PHYSICIAN Rehan Sheth MD LAB BLOOD ORDERABLES F inal Result Performing Organization Address City/State/[facility] [[email or web address]] Co de Phone Number [facility] Department [place] [address] * (ABNORMAL) Pro B-type natriuretic peptide (09/24/2024 5:03 PM ENDOCRINOLOGY PHYSICIAN) NT-proBNP 2,036(H) <=450 pg/mL Comment: Interpretive Comments: [...] Revised Date: 2018. Blood 09/24/2024 5:03 PM ENDOCRINOLOGY PHYSICIAN 09/24/2024 5:24 PM ENDOCRINOLOGY PHYSICIAN Rehan Sheth MD LAB BLOOD ORDERABLES F inal Result Performing Organization Address City/[facility] de Phone Number [facility] Department [place] [address] * (ABNORMAL) CBC with auto differential (09/24/2024 5:03 PM ENDOCRINOLOGY PHYSICIAN) [facility] WBC 6.3 3.8 - 9.9 K/cumm Hgb 11.7(L) 13.0 - 17.5 g/dL [facility] Hct 35.3(L) 38.9 - 50.3 % [facility] Plt 184 150 - 400 K/cumm [facility] MPV 11.3 9.1 - 12.3 fL [facility] RBC 3.76(L) 4.30 - 5.80 M/cumm [facility] MCV 93.9 81.3 - 96.4 fL [facility] MCH 31.1 27.1 - 33.3 pg [facility] MCHC 33.1 32.3 - 35.7 g/dL [facility] RDW CV 14.6 11.1 - 14.9 % [facility] RDW SD 50.4(H) 35.7 - 48.1 fL [facility] NRBC abs 0.00 0.00 - 0.01 K/cumm [facility] Blood 09/24/2024 5:03 PM ENDOCRINOLOGY PHYSICIAN 09/24/2024 5:24 PM ENDOCRINOLOGY PHYSICIAN Rehan Sheth MD LAB BLOOD ORDERABLES F inal Result Performing Organization Address [facility] [[email or web address]] Co de Phone Number [facility] [place] [address] * (ABNORMAL) Basic metabolic panel (09/24/2024 5:03 PM ENDOCRINOLOGY PHYSICIAN) [facility] Sodium 145 135 - 145 mmol/L Potassium, pl 3.7 3.3 - 4.9 mmol/L [facility] Chloride 107 97 - 110 mmol/L [facility] CO2 30 22 - 32 mmol/L [facility] Anion gap 8 2 - 15 mmol/L [facility] BUN 31(H) 6 - 25 mg/dL [facility] Creatinine 1.27 0.80 - 1.30 mg/dL [facility] Glucose 89 70 - 199 mg/dL [facility] Comment: Interpretive Data Fasting glucose [...] 2022. Calcium 9.0 8.5 - 10.3 mg/dL [facility] Blood 09/24/2024 5:03 PM ENDOCRINOLOGY PHYSICIAN 09/24/2024 5:24 PM ENDOCRINOLOGY PHYSICIAN Rehan Sheth MD LAB BLOOD ORDERABLES F inal Result [facility] [place] [address] * ECG 12 lead (09/24/2024 4:01 PM ENDOCRINOLOGY PHYSICIAN) Rehan Sheth MD ECG ORDERABLES Edited Result - Final * eGFR (09/14/2024 8:23 AM ENDOCRINOLOGY PHYSICIAN) eGFR 63 >=60 mL/min/1. 73 m2 Comment: [...] last reviewed 2021. Blood 09/14/2024 8:23 AM ENDOCRINOLOGY PHYSICIAN 09/14/2024 8:45 AM ENDOCRINOLOGY PHYSICIAN us Dalila Torres MD LAB BLOOD ORDERABLES Fi nal Result [facility] [place] [address] * (ABNORMAL) Basic metabolic panel (09/14/2024 8:23 AM ENDOCRINOLOGY PHYSICIAN) Sodium 140 135 - 145 mmol/L Potassium, pl 4.0 3.3 - 4.9 mmol/L [facility] Chloride 104 97 - 110 mmol/L [facility] CO2 27 22 - 32 mmol/L [facility] Anion gap 9 2 - 15 mmol/L [facility] BUN 28(H) 6 - 25 mg/dL [facility] Creatinine 1.14 0.80 - 1.30 mg/dL [facility] Glucose 108 70 - 199 mg/dL [facility] Comment: Interpretive Data Fasting glucose [...] Calcium 8.8 8.5 - 10.3 mg/dL [facility] Blood 09/14/2024 8:23 AM ENDOCRINOLOGY PHYSICIAN 09/14/2024 8:45 AM ENDOCRINOLOGY PHYSICIAN us Dalila Torres MD LAB BLOOD ORDERABLES Fi nal Result [facility] [place] [address] * (ABNORMAL) Hemoglobin A1c (06/07/2024 8:38 AM CDT) Hgb A1C 6.1(H) 4.0 - 5.6 % Estimated Average Glucose 128 mg/dL [facility] Comment: The ADA recommends reporting an estimated Average Glucose (eAG) with all Hemoglobin A1c results using the equation derived from a study of 507 normal and diabetic adults. Minority populations were underrepresented and children were not included. (Diabetes Care 31:5375-8318, 2008). The eAG is not equivalent to a fasting glucose. Blood 06/07/2024 8:38 AM CDT 06/07/2024 9:07 AM CDT us Joe Hood MD LAB BLOOD ORDER MAITE Final Result [facility] [address] [facility] Department [place] [address] * Lipid panel (06/07/2024 8:38 AM CDT) [...] LAB BLOOD ORDER MAITE Final Result [facility] [id number] [facility] Department of Laboratories [place], [place] [id number] * DIABETES FOOT EXAM (11/05/2020) Diabetic Foot Exam Normal Historical Provider HEALTH MAINTENANCE Final Result * DIABETES EYE EXAM (05/05/2019) Diabetic Eye Exam Normal Historical Provider HEALTH MAINTENANCE Final Result from Last 3 Months or Most Recently Relevant to Health Maintenance Insurance [employer] CHOICE MEDICARE PPO [facility] MEDICARE ADVANTAGE [place] [id number] [employer] MEDICARE ADVANTAGE Advance Directives For more information, please contact: [phone] Documents on File Type Date Recorded Patient Purification Operator Helper Expl anation ADVANCE DIRECTIVE 12/27/2023 10:41 PM Jorge Villa OWER OF [employer] AD[employer]ANCE DIRECTIVE 12/26/2023 10:38 AM Yazmin Medina POWER OF [employer] * Full Code (Latest Code Status on [...] Communication Jorge Pryor Spouse Health Care Agent [email or web address] Yazmin Medina Daughter First Alternate Health Care Agent [email or web address] Sas Etl Developer Relationship Specialty Start Date End Date Barry Ralph MD PCP - General Family Practice 05/22/24 Rehan Sheth MD [id number] [address] Consulting Physician Cardiology 09/09/24
--- OUTSIDE RECORDS SUMMARY | 2024-12-13 10:39 | XMS_ITS | Clinical Summary ---
Author Organization Unknown Care Team Providers Care Bank Operations Officer Name Role Phone JACOB COMBS, MIRACLE Unavailable Unavailable ELOY RN, JONATHAN Unavailable Unavailfritz VYAS LPN, MINISTERIO Unavailable Unavailable KENDALL PT, PJ Unavailable Unavailable CARLOS OT, BETO Unavailable Unavailable MARLEN GAUGE MAKER, ALVARO Unavailable Unavailable Payers Payer Name Policy Type Policy Number Effective Date Expira tion Date [id number].[employer].H JUANA.GENAAUTH [id number] Problems Condition Name Condition Details Condition Category [...] 10-18 00:00: 00 ATHSCL HEART DISEASE OF [place] CORONARY ARTERY W/O ANG PCTRS Active 10-18 00:00: 00 NONRHEUMATIC AORTIC VALVE DISORDER, UNSPECIFIED Active 10-18 00:00: 00 PRSNL HX OF TIA (TIA), AND 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 Active 10-18 00:00: 00 PRESENCE OF CORONARY ANGIOPLASTY IMPLANT AND GRAFT Active 10-18 00:00: 00 FDC (CURRENT) USE OF ANTICOAGULAN TS Active 10-31 00:00: 00 FDC (CURRENT) USE OF ANTITHROMBOT ICS/ANTIPLAT ELETS Active [...] 5 mg tablet 2-24 00:00: 00 Yes [id number] ANXIETY 1 tablet 2 TIMES DAILY 1 tablet 2 TIMES DAILY (route: oral) Med Classific ation: Central Nervous System Agents potassium chloride ER 20 mEq tablet,exte nded release 09-29 00:00: 00 Yes [id number] SUPPLEMENT 1 tablet DAILY 1 tablet DAILY (route: oral) Med Classific ation: Electroly te Balance-N utritiona l Products acetaminoph en 325 mg tablet 10-31 00:00: 00 Yes [id number] NEEDED FOR MILD PAIN 2 tablet EVERY 6 HOURS 2 tablet EVERY 6 HOURS (route: oral) Med Classific ation: Analgesic , Anti-infl ammatory or Antipyret ic albuterol sulfate HFA 90 mcg/actuati on aerosol inhaler 10-31 00:00: 00 Yes [id number] NEEDED FOR SOB 1 puff EVERY 4 HOURS 1 puff EVERY 4 HOURS (route: inhalation ) Med Classific ation: Respirato ry Therapy Agents atorvastati n 80 mg tablet 10-31 00:00: 00 Yes [id number] CHOLESTEROL 1 tablet DAILY 1 tablet DAILY (route: oral) Med Classific ation: Cardiovas cular Therapy Agents carvedilol 25 mg tablet 10-31 00:00: 00 Yes [id number] HIGH BLOOD PRESSURE 1 tablet 2 TIMES DAILY 1 tablet 2 TIMES DAILY (route: oral) Med Classific ation: Cardiovas cular Therapy Agents clopidogrel 75 mg tablet 10-31 00:00: 00 Yes [id number] BLOOD THINNER 1 tablet DAILY 1 tablet DAILY (route: oral) Med Classific ation: Hematolog ical Agents Eliquis 5 mg tablet 10-31 00:00: 00 Yes [id number] BLOOD THINNER 1 tablet 2 TIMES DAILY 1 tablet 2 TIMES DAILY (route: oral) Med Classific ation: Hematolog ical Agents furosemide 40 mg tablet 10-31 00:00: 00 11-07 23:59 :00 No [id number] FLUID OVERLOAD 1 tablet 2 TIMES DAILY 1 tablet 2 TIMES DAILY (route: oral) Med Classific ation: Cardiovas cular Therapy Agents losartan 25 mg tablet 10-31 00:00: 00 Yes [id number] HIGH BLOOD PRESSURE 1 tablet DAILY 1 tablet DAILY (route: oral) Med Classific ation: Cardiovas cular Therapy Agents melatonin 5 mg chewable tablet 10-31 00:00: 00 Yes [id number] SLEEP SUPPLEMENT 1 tablet BEDTIME 1 tablet BEDTIME (route: oral) Med Classific ation: Central Nervous System Agents methocarbam ol 500 mg tablet 10-31 00:00: 00 Yes [id number] NEEDED FOR MUSCLE SPASMS 1 tablet 2 TIMES DAILY 1 tablet 2 TIMES DAILY (route: oral) Med Classific ation: Locomotor System paroxetine 20 mg tablet 10-31 00:00: 00 Yes [id number] ANXIETY 1 tablet DAILY 1 tablet DAILY (route: oral) Med Classific ation: Central Nervous System Agents trazodone 50 mg tablet 10-31 00:00: 00 Yes [id number] SLEEP 1 tablet BEDTIME 1 tablet BEDTIME [...] ARTHUR JAMES. RN TO OBSERVE AND ASSESS, TECHNICAL SALES ASSOCIATE/CEMETERY WARDEN TO OBSERVE FOR RISK FOR FALLS AND INSTRUCT IN FALL PREVENTION, HOME SAFETY, MEDICATION MANAGEMENT, INFECTION PREVENTION, AND NUTRITION MANAGEMENT. RN/TECHNICAL SALES ASSOCIATE/CEMETERY WARDEN NURSE MAY PERFORM O2 SATURATION LEVEL ON ADMISSION AND PRN FOR FOR RN TO ASSESS/TECHNICAL SALES ASSOCIATE TO OBSERVE PATIENT, WITH NOTIFICATION TO THE PHYSICIAN IF SATURATION IS 90% IN THE ABSENCE OF MORE SPECIFIC PARAMETERS FROM THE PHYSICIAN. AGENCY MAY PERFORM A RESUMPTION OF CARE VISIT FOLLOWING ANY HOSPITAL ADMISSION. RN/TECHNICAL SALES ASSOCIATE/CEMETERY WARDEN TO MONITOR CO-MORBID CONDITIONS LISTED ON THE PLAN OF CARE AND ANY NEW CONDITIONS THAT PRESENT THEMSELVES DURING THIS EPISODE TO IDENTIFY CHANGES AND INTERVENE TO MINIMIZE COMPLICATIONS. PATIENT HAS PAST MEDICAL HISTORY OF CAROTID DISEASE BILATERAL, CEREBELLA STROKE, ACUTE, CEREBRAL INFARCTION, AFIB, NSTEMI, CHF, COPD, DMII, . [facility] WILL MONITOR PATIENTFOR SIGNS AND SYMPTOMS OF EXACERBATION OF THESE DIAGNOSES AND WILL NOTIFY PROVIDER OF ANY CONCERNS OR CHANGES THAT ARISE. [code = RN TO OBSERVE, ASSESS, EVALUATE, AND DEVELOP AN INDIVIDUALIZED PLAN OF CARE. AGENCY MAY ACCEPT ORDERS FROM CONSULTING ARTHUR JAMES. RN TO OBSERVE AND ASSESS, TECHNICAL SALES ASSOCIATE/CEMETERY WARDEN TO OBSERVE FOR RISK FOR FALLS AND INSTRUCT IN FALL PREVENTION, HOME SAFETY, MEDICATION MANAGEMENT, INFECTION PREVENTION, AND NUTRITION MANAGEMENT. RN/TECHNICAL SALES ASSOCIATE/CEMETERY WARDEN NURSE MAY PERFORM O2 SATURATION LEVEL ON ADMISSION AND PRN FOR FOR RN TO ASSESS/TECHNICAL SALES ASSOCIATE TO OBSERVE PATIENT, WITH NOTIFICATION TO THE PHYSICIAN IF SATURATION IS 90% IN THE ABSENCE OF MORE SPECIFIC PARAMETERS FROM THE PHYSICIAN. AGENCY MAY PERFORM A RESUMPTION OF CARE VISIT FOLLOWING ANY HOSPITAL ADMISSION. RN/TECHNICAL SALES ASSOCIATE/CEMETERY WARDEN TO MONITOR CO-MORBID CONDITIONS LISTED ON THE PLAN OF CARE AND ANY NEW CONDITIONS THAT PRESENT THEMSELVES DURING THIS EPISODE TO IDENTIFY CHANGES AND INTERVENE TO MINIMIZE COMPLICATIONS. PATIENT HAS PAST MEDICAL HISTORY OF CAROTID DISEASE BILATERAL, CEREBELLA STROKE, ACUTE, CEREBRAL INFARCTION, AFIB, NSTEMI, CHF, COPD, DMII, . [facility] WILL MONITOR PATIENTFOR SIGNS AND [...] WEAKNESS ] Future Scheduled Test MEDICATION MANAGEMENT; RN/TECHNICAL SALES ASSOCIATE/CEMETERY WARDEN TO REVIEW MEDICATIONS FOR INTERACTIONS, EFFECTIVENESS OF DRUG THERAPY, AND SIGNS/SYMPTOMS OF ADVERSE REACTIONS. MAY INSTRUCT AND REINFORCE MEDICATION TEACHING RELATED TO THE USE OF MEDICATIONS, DOSAGE, FREQUENCY, PURPOSE, SIDE EFFECTS, AND TO REPORT COMPLICATIONS. [code = MEDICATION MANAGEMENT; RN/TECHNICAL SALES ASSOCIATE/CEMETERY WARDEN TO REVIEW MEDICATIONS FOR INTERACTIONS, EFFECTIVENESS OF DRUG THERAPY, AND SIGNS/SYMPTOMS OF ADVERSE REACTIONS. MAY INSTRUCT AND REINFORCE MEDICATION TEACHING RELATED TO THE USE OF MEDICATIONS, DOSAGE, FREQUENCY, PURPOSE, SIDE EFFECTS, AND TO REPORT COMPLICATIONS.] Future Scheduled Test ANTICOAGUL ATION MANAGEMENT; RN TO ASSESS AND TEACH, TECHNICAL SALES ASSOCIATE/CEMETERY WARDEN TO OBSERVE/TEACH/MONITOR EFFECTIVENESS OF ANTICOAGULATION THERAPY. RN/TECHNICAL SALES ASSOCIATE/CEMETERY WARDEN TO INSTRUCT ON SIGNS AND SYMPTOMS OF BLEEDING/ADVERSE REACTIONS TO REPORT TO PHYSICIAN. [code = ANTICOAGULATION MANAGEMENT; RN TO ASSESS AND TEACH, TECHNICAL SALES ASSOCIATE/CEMETERY WARDEN TO OBSERVE/TEACH/MONITOR EFFECTIVENESS OF ANTICOAGULATION THERAPY. RN/TECHNICAL SALES ASSOCIATE/CEMETERY WARDEN TO INSTRUCT ON SIGNS AND SYMPTOMS OF BLEEDING/ADVERSE REACTIONS TO REPORT TO PHYSICIAN. ] Future Scheduled Test RESPIRATOR Y SYSTEM MANAGEMENT; RN TO ASSESS AND TEACH, TECHNICAL SALES ASSOCIATE/CEMETERY WARDEN TO OBSERVE AND TEACH RELATED TO ALTERED RESPIRATORY STATUS TO MINIMIZE COMPLICATIONS AND REDUCE HOSPITALIZATION. [code = RESPIRATORY SYSTEM MANAGEMENT; RN TO ASSESS AND TEACH, TECHNICAL SALES ASSOCIATE/CEMETERY WARDEN TO OBSERVE AND TEACH RELATED TO ALTERED RESPIRATORY STATUS TO MINIMIZE COMPLICATIONS AND REDUCE HOSPITALIZATION.] Future Scheduled Test COPD MANAG EMENT; RN TO ASSESS AND TEACH, TECHNICAL SALES ASSOCIATE/CEMETERY WARDEN TO OBSERVE AND TEACH SIGNS/SYMPTOMS OF COPD EXACERBATION AND PROVIDE EARLY INTERVENTIONS TO MINIMIZE RISK OF HOSPITALIZATION. RN/TECHNICAL SALES ASSOCIATE/CEMETERY WARDEN TO INSTRUCT ON SELF-CARE MANAGEMENT INCLUDING BREATHING TECHNIQUES, AIRWAY CLEARANCE, AND PROPER USE OF COPD MEDICATIONS. RN TO ASSESS AND TEACH, TECHNICAL SALES ASSOCIATE/CEMETERY WARDEN TO OBSERVE AND TEACH PATIENT/CAREGIVER ABILITY TO MONITOR AND RECORD VITAL SIGNS INCLUDING PULSE OXIMETRY AND BLOOD PRESSURE. PULSE OXIMETER AND BP MONITOR TO BE PROVIDED IF NEEDED [code = COPD MANAGEMENT; RN TO ASSESS AND TEACH, TECHNICAL SALES ASSOCIATE/CEMETERY WARDEN TO OBSERVE AND TEACH SIGNS/SYMPTOMS OF COPD EXACERBATION AND PROVIDE EARLY INTERVENTIONS TO MINIMIZE RISK OF HOSPITALIZATION. RN/TECHNICAL SALES ASSOCIATE/CEMETERY WARDEN TO INSTRUCT ON SELF-CARE MANAGEMENT INCLUDING BREATHING TECHNIQUES, AIRWAY CLEARANCE, AND PROPER USE OF COPD MEDICATIONS. RN TO ASSESS AND TEACH, TECHNICAL SALES ASSOCIATE/CEMETERY WARDEN TO OBSERVE AND TEACH PATIENT/CAREGIVER ABILITY TO MONITOR AND RECORD VITAL SIGNS INCLUDING PULSE OXIMETRY AND BLOOD PRESSURE. PULSE OXIMETER AND BP MONITOR TO BE PROVIDED IF NEEDED ] Future Scheduled Test FALL REDUC TION MANAGEMENT; RN TO ASSESS AND OBSERVE, TECHNICAL SALES ASSOCIATE/CEMETERY WARDEN TO OBSERVE FALL RISK FACTORS AND EDUCATE PATIENT/CAREGIVER ON STRATEGIES TO MINIMIZE THE RISK OF FALLING. [code = FALL REDUCTION MANAGEMENT; RN TO ASSESS AND OBSERVE, TECHNICAL SALES ASSOCIATE/CEMETERY WARDEN TO OBSERVE FALL RISK FACTORS AND EDUCATE PATIENT/CAREGIVER ON STRATEGIES TO MINIMIZE THE RISK OF FALLING.] Future Scheduled Test DIABETES M ANAGEMENT; RN TO ASSESS AND TEACH, CEMETERY WARDEN/TECHNICAL SALES ASSOCIATE TO OBSERVE AND TEACH INSTRUCTIONS OF DIABETIC CARE TO INCLUDE: DIET DIABETIC, SKIN CARE, SIGNS AND SYMPTOMS OF HYPO/HYPERGLYCEMIA, PROPER ADMINISTRATION OF DIABETIC MEDICATION. RN/CEMETERY WARDEN/TECHNICAL SALES ASSOCIATE TO INSTRUCT ON DIABETIC FOOT CARE AND MONITOR FOR SKIN LESIONS ON LOWER EXTREMITIES. BLOOD GLUCOSE TESTING 4X DAILY FREQ. RN TO ASSESS AND TEACH, CEMETERY WARDEN/TECHNICAL SALES ASSOCIATE TO OBSERVE AND TEACH PATIENT/CAREGIVER ABILITY TO PERFORM AND RECORD BLOOD GLUCOSE TESTING ORDERED AND TO REPORT ABNORMAL FINDINGS TO PHYSICIAN. RN/CEMETERY WARDEN/TECHNICAL SALES ASSOCIATE MAY PERFORM BLOOD GLUCOSE TEST NEEDED. RN/CEMETERY WARDEN/TECHNICAL SALES ASSOCIATE TO REPORT TO PHYSICIAN BLOOD GLUCOSE READINGS GREATER THAN 350 OR LESS THAN 80 RN/CEMETERY WARDEN/TECHNICAL SALES ASSOCIATE TO INSTRUCT PATIENT ON IMPORTANCE OF HGBA1C MONITORING, KIDNEY FUNCTION TEST, EYE AND FOOT EXAMS. [code = DIABETES MANAGEMENT; RN TO ASSESS AND TEACH, CEMETERY WARDEN/TECHNICAL SALES ASSOCIATE TO OBSERVE AND TEACH INSTRUCTIONS OF DIABETIC CARE TO INCLUDE: DIET DIABETIC, SKIN CARE, SIGNS AND SYMPTOMS OF HYPO/HYPERGLYCEMIA, PROPER ADMINISTRATION OF DIABETIC MEDICATION. RN/CEMETERY WARDEN/TECHNICAL SALES ASSOCIATE TO INSTRUCT ON DIABETIC FOOT CARE AND MONITOR FOR SKIN LESIONS ON LOWER EXTREMITIES. BLOOD GLUCOSE TESTING 4X DAILY FREQ. RN TO ASSESS AND TEACH, CEMETERY WARDEN/TECHNICAL SALES ASSOCIATE TO OBSERVE AND TEACH PATIENT/CAREGIVER ABILITY TO PERFORM AND RECORD BLOOD GLUCOSE TESTING ORDERED AND TO REPORT ABNORMAL FINDINGS TO PHYSICIAN. RN/CEMETERY WARDEN/TECHNICAL SALES ASSOCIATE MAY PERFORM BLOOD GLUCOSE TEST NEEDED. RN/CEMETERY WARDEN/TECHNICAL SALES ASSOCIATE TO REPORT TO PHYSICIAN BLOOD GLUCOSE READINGS GREATER THAN 350 OR LESS THAN 80 RN/CEMETERY WARDEN/TECHNICAL SALES ASSOCIATE TO INSTRUCT PATIENT ON IMPORTANCE OF HGBA1C MONITORING, KIDNEY FUNCTION TEST, EYE AND FOOT EXAMS.] Future Scheduled Test PAIN MANAG EMENT; RN TO ASSESS AND TEACH, CEMETERY WARDEN/TECHNICAL SALES ASSOCIATE TO OBSERVE AND TEACH AND PROVIDE EDUCATION ON PAIN MANAGEMENT TECHNIQUES. [code = PAIN MANAGEMENT; RN TO ASSESS AND TEACH, CEMETERY WARDEN/TECHNICAL SALES ASSOCIATE TO OBSERVE AND TEACH AND PROVIDE EDUCATION ON PAIN MANAGEMENT TECHNIQUES.] Future Scheduled Test RISK FOR H OSPITALIZATION; RN TO ASSESS/TEACH, CEMETERY WARDEN/TECHNICAL SALES ASSOCIATE TO OBSERVE/TEACH PATIENT/CAREGIVER ON RISK FOR HOSPITALIZATION/EMERGENCY ROOM VISITS, TEACH SIGNS AND SYMPTOMS THAT PUT PATIENT AT RISK, WHEN TO NOTIFY NURSE/PHYSICIAN OF COMPLICATIONS/DECLINE, AND WHEN TO CALL 911. [code = RISK FOR HOSPITALIZATION; RN TO ASSESS/TEACH, CEMETERY WARDEN/TECHNICAL SALES ASSOCIATE TO OBSERVE/TEACH PATIENT/CAREGIVER ON RISK FOR HOSPITALIZATION/EMERGENCY ROOM VISITS, TEACH SIGNS AND SYMPTOMS THAT PUT PATIENT AT RISK, WHEN TO NOTIFY NURSE/PHYSICIAN OF COMPLICATIONS/DECLINE, AND WHEN TO CALL 911.] Future Scheduled Test CARDIOVASC ULAR SYSTEM; RN TO ASSESS/TEACH, TECHNICAL SALES ASSOCIATE/CEMETERY WARDEN TO OBSERVE/TEACH RELATED TO ALTERED CARDIOVASCULAR STATUS TO MINIMIZE COMPLICATIONS AND REDUCE HOSPITALIZATION. [code = CARDIOVASCULAR SYSTEM; RN TO ASSESS/TEACH, TECHNICAL SALES ASSOCIATE/CEMETERY WARDEN TO OBSERVE/TEACH RELATED TO ALTERED CARDIOVASCULAR STATUS TO MINIMIZE COMPLICATIONS AND REDUCE HOSPITALIZATION.] Future Scheduled Test HYPERTENSI ON MANAGEMENT; RN TO ASSESS AND TEACH, TECHNICAL SALES ASSOCIATE/CEMETERY WARDEN TO OBSERVE AND TEACH WARNING SIGNS AND SYMPTOMS TO AVOID HOSPITALIZATION. [code = HYPERTENSION MANAGEMENT; RN TO ASSESS AND TEACH, TECHNICAL SALES ASSOCIATE/CEMETERY WARDEN TO OBSERVE AND TEACH WARNING SIGNS AND SYMPTOMS TO AVOID HOSPITALIZATION. ] Future Scheduled Test ARRHYTHMIA MANAGEMENT; RN TO ASSESS AND TEACH, TECHNICAL SALES ASSOCIATE/CEMETERY WARDEN TO OBSERVE AND TEACH WARNING SIGNS AND SYMPTOMS TO AVOID HOSPITALIZATION. [code = ARRHYTHMIA MANAGEMENT; RN TO ASSESS AND TEACH, TECHNICAL SALES ASSOCIATE/CEMETERY WARDEN TO OBSERVE AND TEACH WARNING SIGNS AND SYMPTOMS TO AVOID HOSPITALIZATION. ] Future Scheduled Test AGENCY MAY PERFORM A RESUMPTION OF CARE VISIT FOLLOWING ANY HOSPITAL ADMISSION. PT TO EVALUATE, OBSERVE / ASSESS, AND MONITOR, GAUGE MAKER TO OBSERVE AND MONITOR, PROVIDE SKILLED THERAPEUTIC INTERVENTION, ACTIVITY, EDUCATION, AND TRAINING TO ADDRESS; PT/GAUGE MAKER TO PROVIDE GAIT TRAINING FOR IMPROVED MOBILITY AND /OR TO NORMALIZE GAIT PATTERN NEUROMUSCULAR RE-EDUCATION / BALANCE / POSTURAL CONTROL (PT) PT/GAUGE MAKER TO PROVIDE STAIR TRAINING SIT TO/FROM STAND TRANSFERS (PT/GAUGE MAKER) PT TO ASSESS / GAUGE MAKER TO MONITOR FOR AND REPORT EARLY SIGNS OF ANTICOAGULANT TOXICITY TO THE PHYSICIAN AND/OR THE RN CLINICAL RECORDS OFFICER FOR PHYSICIAN NOTIFICATION AND TO PROVIDE PATIENT/CAREGIVER EDUCATION ON ANTICOAGULANT THERAPY PT / GAUGE MAKER TO MONITOR FOR HYPO/HYPERGLYCEMIA AND CONDUCT ROUTINE FOOT INSPECTIONS. RECORD PATIENT REPORTED BLOOD SUGAR LEVELS AND NOTIFY PHYSICIAN AND/OR THE RN CLINICAL RECORDS OFFICER FOR PHYSICIAN NOTIFICATION IF BLOOD SUGAR LEVELS ARE OUTSIDE ORDERED PARAMETERS. TEACH PATIENT/CAREGIVER ON DAILY FOOT INSPECTIONS PT TO ASSESS / GAUGE MAKER TO MONITOR FOR HEART FAILURE EXACERBATION AND RECORD PATIENT REPORTED WEIGHT, AND NOTIFY THE PHYSICIAN AND/OR THE RN CLINICAL RECORDS OFFICER FOR PHYSICIAN NOTIFICATION OF HF EXACERBATION (2LB WEIGHT GAIN IN 1 DAY, 5LBS IN A WEEK OR 5 LBS OVER BASELINE; INCREASED SOB, EDEMA, NEEDING MORE PILLOWS AT NIGHT, CRACKLES IN BASIS OF THE LUNGS OR PMI SHIFT) PT TO ASSESS / GAUGE MAKER TO MONITOR CARDIO/RESPIRATORY SYSTEM; AND NOTIFY THE PHYSICIAN AND/OR THE RN CLINICAL RECORDS OFFICER FOR PHYSICIAN NOTIFICATION FOR EARLY SIGNS AND SYMPTOMS OF EXACERBATION OR DETERIORATION. PT/GAUGE MAKER TO IDENTIFY FALL RISK FACTORS; EDUCATE THE PATIENT/CAREGIVER ON WAYS TO REDUCE FALL RISK FACTORS AND ESTABLISH HOME EXERCISE PROGRAM TO MINIMIZE FALL RISK. MAY TEACH THE PATIENT FLOOR RECOVERY WHEN CLINICALLY APPROPRIATE PT / GAUGE MAKER TO EDUCATE ON CVA SELF-MANAGEMENT PT / GAUGE MAKER MAY EDUCATE ON PAIN MANAGEMENT CLINICALLY INDICATED, INCLUDING NON-PHARMACOLOGICAL PAIN REDUCTION TECHNIQUES PT / GAUGE MAKER TO INSTRUCT PATIENT/CAREGIVER ON RISK FOR HOSPITALIZATION/EMERGENCY ROOM VISITS, TEACH SIGNS AND SYMPTOMS THAT PUT PATIENT AT RISK, WHEN TO NOTIFY NURSE/PHYSICIAN OF COMPLICATIONS/DECLINE, AND WHEN TO CALL 911. PT / GAUGE MAKER TO EDUCATE ON HEART FAILURE SELF-MANAGEMENT PT / GAUGE MAKER TO EDUCATE ON HYPERTENSION SELF-MANAGEMENT PT / GAUGE MAKER TO EDUCATE ON ATRIAL FIBRILLATION SELF-MANAGEMENT. PT / GAUGE MAKER TO EDUCATE ON COPD SELF-MANAGEMENT [code = AGENCY MAY PERFORM A RESUMPTION OF CARE VISIT FOLLOWING ANY HOSPITAL ADMISSION. PT TO EVALUATE, OBSERVE / ASSESS, AND MONITOR, GAUGE MAKER TO OBSERVE AND MONITOR, PROVIDE SKILLED THERAPEUTIC INTERVENTION, ACTIVITY, EDUCATION, AND TRAINING TO ADDRESS; PT/GAUGE MAKER TO PROVIDE GAIT TRAINING FOR IMPROVED MOBILITY AND /OR TO NORMALIZE GAIT PATTERN NEUROMUSCULAR RE-EDUCATION / BALANCE / POSTURAL CONTROL (PT) PT/GAUGE MAKER TO PROVIDE STAIR TRAINING SIT TO/FROM STAND TRANSFERS (PT/GAUGE MAKER) PT TO ASSESS / GAUGE MAKER TO MONITOR FOR AND REPORT EARLY SIGNS OF ANTICOAGULANT TOXICITY TO THE PHYSICIAN AND/OR THE RN CLINICAL RECORDS OFFICER FOR PHYSICIAN NOTIFICATION AND TO PROVIDE PATIENT/CAREGIVER EDUCATION ON ANTICOAGULANT THERAPY PT / GAUGE MAKER TO MONITOR FOR HYPO/HYPERGLYCEMIA AND CONDUCT ROUTINE FOOT INSPECTIONS. RECORD PATIENT REPORTED BLOOD SUGAR LEVELS AND NOTIFY PHYSICIAN AND/OR THE RN CLINICAL RECORDS OFFICER FOR PHYSICIAN NOTIFICATION IF BLOOD SUGAR LEVELS ARE OUTSIDE ORDERED PARAMETERS. TEACH PATIENT/CAREGIVER ON DAILY FOOT INSPECTIONS PT TO ASSESS / GAUGE MAKER TO MONITOR FOR HEART FAILURE EXACERBATION AND RECORD PATIENT REPORTED WEIGHT, AND NOTIFY THE PHYSICIAN AND/OR THE RN CLINICAL RECORDS OFFICER FOR PHYSICIAN NOTIFICATION OF HF EXACERBATION (2LB WEIGHT GAIN IN 1 DAY, 5LBS IN A WEEK OR 5 LBS OVER BASELINE; INCREASED SOB, EDEMA, NEEDING MORE PILLOWS AT NIGHT, CRACKLES IN BASIS OF THE LUNGS OR PMI SHIFT) PT TO ASSESS / GAUGE MAKER TO MONITOR CARDIO/RESPIRATORY SYSTEM; AND NOTIFY THE PHYSICIAN AND/OR THE RN CLINICAL RECORDS OFFICER FOR PHYSICIAN NOTIFICATION FOR EARLY SIGNS AND SYMPTOMS OF EXACERBATION OR DETERIORATION. PT/GAUGE MAKER TO IDENTIFY FALL RISK FACTORS; EDUCATE THE PATIENT/CAREGIVER ON WAYS TO REDUCE FALL RISK FACTORS AND ESTABLISH HOME EXERCISE PROGRAM TO MINIMIZE FALL RISK. MAY TEACH THE PATIENT FLOOR RECOVERY WHEN CLINICALLY APPROPRIATE PT / GAUGE MAKER TO EDUCATE ON CVA SELF-MANAGEMENT PT / GAUGE MAKER MAY EDUCATE ON PAIN MANAGEMENT CLINICALLY INDICATED, INCLUDING NON-PHARMACOLOGICAL PAIN REDUCTION TECHNIQUES PT / GAUGE MAKER TO INSTRUCT PATIENT/CAREGIVER ON RISK FOR HOSPITALIZATION/EMERGENCY ROOM VISITS, TEACH SIGNS AND SYMPTOMS THAT PUT PATIENT AT RISK, WHEN TO NOTIFY NURSE/PHYSICIAN OF COMPLICATIONS/DECLINE, AND WHEN TO CALL 911. PT / GAUGE MAKER TO EDUCATE ON HEART FAILURE SELF-MANAGEMENT PT / GAUGE MAKER TO EDUCATE ON HYPERTENSION SELF-MANAGEMENT PT / GAUGE MAKER TO EDUCATE ON ATRIAL FIBRILLATION SELF-MANAGEMENT. PT / GAUGE MAKER TO EDUCATE ON COPD SELF-MANAGEMENT ] Goal [...] End Date/Time Encounter Type Admission Type Attending [facility] Department Encounter ID Discharge Date Discharge Status Discharge Condition Discharge Reason Percent Goals Met 2024-10-31 00:00:00 2024-12-29 00:00:00 Outpatient NEW ADMISSION [facility] [id number] 23.40
--- OUTSIDE RECORDS SUMMARY | 2024-12-13 10:39 | XMS_ITS | Clinical Summary ---
Author Organization Unknown Care Team Providers Care Senior Dot Net Developer Name Role Phone JACOB COMBS, MIRACLE Unavailable Unavailable ELOY RN, JONATHAN Unavailable Unavailfritz VYAS LPN, MINISTERIO Unavailable Unavailable KENDALL PT, PJ Unavailable Unavailable CARLOS OT, BETO Unavailable Unavailable MARLEN EARLY CHILDHOOD ASSISTANT, ALVARO Unavailable Unavailable Payers Payer Name Policy Type Policy Number Effective Date Expira tion Date [id number].[email or web address] JUANA.GENAAUTH [id number] Problems Condition Name Condition Details Condition Category [...] 10-18 00:00: 00 ATHSCL HEART DISEASE OF [place] CORONARY ARTERY W/O ANG PCTRS Active 10-18 [...] 5 mg tablet 2-24 00:00: 00 Yes [id number] ANXIETY 1 tablet 2 TIMES DAILY 1 tablet 2 TIMES DAILY (route: oral) Med Classific ation: Central Nervous System Agents potassium chloride ER 20 mEq tablet,exte nded release 09-29 00:00: 00 Yes [id number] SUPPLEMENT 1 tablet DAILY 1 tablet DAILY (route: oral) Med Classific ation: Electroly te Balance-N utritiona l Products acetaminoph en 325 mg tablet 10-31 00:00: 00 Yes [id number] NEEDED FOR MILD PAIN 2 tablet EVERY 6 HOURS 2 tablet EVERY 6 HOURS (route: oral) Med Classific ation: Analgesic , Anti-infl ammatory or Antipyret ic albuterol sulfate HFA 90 mcg/actuati on aerosol inhaler 10-31 00:00: 00 Yes [id number] NEEDED FOR SOB 1 puff EVERY 4 HOURS 1 puff EVERY 4 HOURS (route: inhalation ) Med Classific ation: Respirato ry Therapy Agents atorvastati n 80 mg tablet 10-31 00:00: 00 Yes [id number] CHOLESTEROL 1 tablet DAILY 1 tablet DAILY (route: oral) Med Classific ation: Cardiovas cular Therapy Agents carvedilol 25 mg tablet 10-31 00:00: 00 Yes [id number] HIGH BLOOD PRESSURE 1 tablet 2 TIMES DAILY 1 tablet 2 TIMES DAILY (route: oral) Med Classific ation: Cardiovas cular Therapy Agents clopidogrel 75 mg tablet 10-31 00:00: 00 Yes [id number] BLOOD THINNER 1 tablet DAILY 1 tablet DAILY (route: oral) Med Classific ation: Hematolog ical Agents Eliquis 5 mg tablet 10-31 00:00: 00 Yes [id number] BLOOD THINNER 1 tablet 2 TIMES DAILY 1 tablet 2 TIMES DAILY (route: oral) Med Classific ation: Hematolog ical Agents furosemide 40 mg tablet 10-31 00:00: 00 11-07 23:59 :00 No [id number] FLUID OVERLOAD 1 tablet 2 TIMES DAILY 1 tablet 2 TIMES DAILY (route: oral) Med Classific ation: Cardiovas cular Therapy Agents losartan 25 mg tablet 10-31 00:00: 00 Yes [id number] HIGH BLOOD PRESSURE 1 tablet DAILY 1 tablet DAILY (route: oral) Med Classific ation: Cardiovas cular Therapy Agents melatonin 5 mg chewable tablet 10-31 00:00: 00 Yes [id number] SLEEP SUPPLEMENT 1 tablet BEDTIME 1 tablet BEDTIME (route: oral) Med Classific ation: Central Nervous System Agents methocarbam ol 500 mg tablet 10-31 00:00: 00 Yes [id number] NEEDED FOR MUSCLE SPASMS 1 tablet 2 TIMES DAILY 1 tablet 2 TIMES DAILY (route: oral) Med Classific ation: Locomotor System paroxetine 20 mg tablet 10-31 00:00: 00 Yes [id number] ANXIETY 1 tablet DAILY 1 tablet DAILY (route: oral) Med Classific ation: Central Nervous System Agents trazodone 50 mg tablet 10-31 00:00: 00 Yes [id number] SLEEP 1 tablet BEDTIME 1 tablet BEDTIME [...] ARTHUR JAMES. RN TO OBSERVE AND ASSESS, POLYMER MATERIALS CONSULTANT/BREAK OFF WORKER TO OBSERVE FOR RISK FOR FALLS AND INSTRUCT IN FALL PREVENTION, HOME SAFETY, MEDICATION MANAGEMENT, INFECTION PREVENTION, AND NUTRITION MANAGEMENT. RN/POLYMER MATERIALS CONSULTANT/BREAK OFF WORKER NURSE MAY PERFORM O2 SATURATION LEVEL ON ADMISSION AND PRN FOR FOR RN TO ASSESS/POLYMER MATERIALS CONSULTANT TO OBSERVE PATIENT, WITH NOTIFICATION TO THE PHYSICIAN IF SATURATION IS 90% IN THE ABSENCE OF MORE SPECIFIC PARAMETERS FROM THE PHYSICIAN. AGENCY MAY PERFORM A RESUMPTION OF CARE VISIT FOLLOWING ANY HOSPITAL ADMISSION. RN/POLYMER MATERIALS CONSULTANT/BREAK OFF WORKER TO MONITOR CO-MORBID CONDITIONS LISTED ON THE PLAN OF CARE AND ANY NEW CONDITIONS THAT PRESENT THEMSELVES DURING THIS EPISODE TO IDENTIFY CHANGES AND INTERVENE TO MINIMIZE COMPLICATIONS. PATIENT HAS PAST MEDICAL HISTORY OF CAROTID DISEASE BILATERAL, CEREBELLA STROKE, ACUTE, CEREBRAL INFARCTION, AFIB, NSTEMI, CHF, COPD, DMII, . [facility] WILL MONITOR PATIENTFOR SIGNS AND SYMPTOMS OF EXACERBATION OF THESE DIAGNOSES AND WILL NOTIFY PROVIDER OF ANY CONCERNS OR CHANGES THAT ARISE. [code = RN TO OBSERVE, ASSESS, EVALUATE, AND DEVELOP AN INDIVIDUALIZED PLAN OF CARE. AGENCY MAY ACCEPT ORDERS FROM CONSULTING ARTHUR JAMES. RN TO OBSERVE AND ASSESS, POLYMER MATERIALS CONSULTANT/BREAK OFF WORKER TO OBSERVE FOR RISK FOR FALLS AND INSTRUCT IN FALL PREVENTION, HOME SAFETY, MEDICATION MANAGEMENT, INFECTION PREVENTION, AND NUTRITION MANAGEMENT. RN/POLYMER MATERIALS CONSULTANT/BREAK OFF WORKER NURSE MAY PERFORM O2 SATURATION LEVEL ON ADMISSION AND PRN FOR FOR RN TO ASSESS/POLYMER MATERIALS CONSULTANT TO OBSERVE PATIENT, WITH NOTIFICATION TO THE PHYSICIAN IF SATURATION IS 90% IN THE ABSENCE OF MORE SPECIFIC PARAMETERS FROM THE PHYSICIAN. AGENCY MAY PERFORM A RESUMPTION OF CARE VISIT FOLLOWING ANY HOSPITAL ADMISSION. RN/POLYMER MATERIALS CONSULTANT/BREAK OFF WORKER TO MONITOR CO-MORBID CONDITIONS LISTED ON THE PLAN OF CARE AND ANY NEW CONDITIONS THAT PRESENT THEMSELVES DURING THIS EPISODE TO IDENTIFY CHANGES AND INTERVENE TO MINIMIZE COMPLICATIONS. PATIENT HAS PAST MEDICAL HISTORY OF CAROTID DISEASE BILATERAL, CEREBELLA STROKE, ACUTE, CEREBRAL INFARCTION, AFIB, NSTEMI, CHF, COPD, DMII, . [facility] WILL MONITOR PATIENTFOR SIGNS AND [...] WEAKNESS ] Future Scheduled Test MEDICATION MANAGEMENT; RN/POLYMER MATERIALS CONSULTANT/BREAK OFF WORKER TO REVIEW MEDICATIONS FOR INTERACTIONS, EFFECTIVENESS OF DRUG THERAPY, AND SIGNS/SYMPTOMS OF ADVERSE REACTIONS. MAY INSTRUCT AND REINFORCE MEDICATION TEACHING RELATED TO THE USE OF MEDICATIONS, DOSAGE, FREQUENCY, PURPOSE, SIDE EFFECTS, AND TO REPORT COMPLICATIONS. [code = MEDICATION MANAGEMENT; RN/POLYMER MATERIALS CONSULTANT/BREAK OFF WORKER TO REVIEW MEDICATIONS FOR INTERACTIONS, EFFECTIVENESS OF DRUG THERAPY, AND SIGNS/SYMPTOMS OF ADVERSE REACTIONS. MAY INSTRUCT AND REINFORCE MEDICATION TEACHING RELATED TO THE USE OF MEDICATIONS, DOSAGE, FREQUENCY, PURPOSE, SIDE EFFECTS, AND TO REPORT COMPLICATIONS.] Future Scheduled Test ANTICOAGUL ATION MANAGEMENT; RN TO ASSESS AND TEACH, POLYMER MATERIALS CONSULTANT/BREAK OFF WORKER TO OBSERVE/TEACH/MONITOR EFFECTIVENESS OF ANTICOAGULATION THERAPY. RN/POLYMER MATERIALS CONSULTANT/BREAK OFF WORKER TO INSTRUCT ON SIGNS AND SYMPTOMS OF BLEEDING/ADVERSE REACTIONS TO REPORT TO PHYSICIAN. [code = ANTICOAGULATION MANAGEMENT; RN TO ASSESS AND TEACH, POLYMER MATERIALS CONSULTANT/BREAK OFF WORKER TO OBSERVE/TEACH/MONITOR EFFECTIVENESS OF ANTICOAGULATION THERAPY. RN/POLYMER MATERIALS CONSULTANT/BREAK OFF WORKER TO INSTRUCT ON SIGNS AND SYMPTOMS OF BLEEDING/ADVERSE REACTIONS TO REPORT TO PHYSICIAN. ] Future Scheduled Test RESPIRATOR Y SYSTEM MANAGEMENT; RN TO ASSESS AND TEACH, POLYMER MATERIALS CONSULTANT/BREAK OFF WORKER TO OBSERVE AND TEACH RELATED TO ALTERED RESPIRATORY STATUS TO MINIMIZE COMPLICATIONS AND REDUCE HOSPITALIZATION. [code = RESPIRATORY SYSTEM MANAGEMENT; RN TO ASSESS AND TEACH, POLYMER MATERIALS CONSULTANT/BREAK OFF WORKER TO OBSERVE AND TEACH RELATED TO ALTERED RESPIRATORY STATUS TO MINIMIZE COMPLICATIONS AND REDUCE HOSPITALIZATION.] Future Scheduled Test COPD MANAG EMENT; RN TO ASSESS AND TEACH, POLYMER MATERIALS CONSULTANT/BREAK OFF WORKER TO OBSERVE AND TEACH SIGNS/SYMPTOMS OF COPD EXACERBATION AND PROVIDE EARLY INTERVENTIONS TO MINIMIZE RISK OF HOSPITALIZATION. RN/POLYMER MATERIALS CONSULTANT/BREAK OFF WORKER TO INSTRUCT ON SELF-CARE MANAGEMENT INCLUDING BREATHING TECHNIQUES, AIRWAY CLEARANCE, AND PROPER USE OF COPD MEDICATIONS. RN TO ASSESS AND TEACH, POLYMER MATERIALS CONSULTANT/BREAK OFF WORKER TO OBSERVE AND TEACH PATIENT/CAREGIVER ABILITY TO MONITOR AND RECORD VITAL SIGNS INCLUDING PULSE OXIMETRY AND BLOOD PRESSURE. PULSE OXIMETER AND BP MONITOR TO BE PROVIDED IF NEEDED [code = COPD MANAGEMENT; RN TO ASSESS AND TEACH, POLYMER MATERIALS CONSULTANT/BREAK OFF WORKER TO OBSERVE AND TEACH SIGNS/SYMPTOMS OF COPD EXACERBATION AND PROVIDE EARLY INTERVENTIONS TO MINIMIZE RISK OF HOSPITALIZATION. RN/POLYMER MATERIALS CONSULTANT/BREAK OFF WORKER TO INSTRUCT ON SELF-CARE MANAGEMENT INCLUDING BREATHING TECHNIQUES, AIRWAY CLEARANCE, AND PROPER USE OF COPD MEDICATIONS. RN TO ASSESS AND TEACH, POLYMER MATERIALS CONSULTANT/BREAK OFF WORKER TO OBSERVE AND TEACH PATIENT/CAREGIVER ABILITY TO MONITOR AND RECORD VITAL SIGNS INCLUDING PULSE OXIMETRY AND BLOOD PRESSURE. PULSE OXIMETER AND BP MONITOR TO BE PROVIDED IF NEEDED ] Future Scheduled Test FALL REDUC TION MANAGEMENT; RN TO ASSESS AND OBSERVE, POLYMER MATERIALS CONSULTANT/BREAK OFF WORKER TO OBSERVE FALL RISK FACTORS AND EDUCATE PATIENT/CAREGIVER ON STRATEGIES TO MINIMIZE THE RISK OF FALLING. [code = FALL REDUCTION MANAGEMENT; RN TO ASSESS AND OBSERVE, POLYMER MATERIALS CONSULTANT/BREAK OFF WORKER TO OBSERVE FALL RISK FACTORS AND EDUCATE PATIENT/CAREGIVER ON STRATEGIES TO MINIMIZE THE RISK OF FALLING.] Future Scheduled Test DIABETES M ANAGEMENT; RN TO ASSESS AND TEACH, BREAK OFF WORKER/POLYMER MATERIALS CONSULTANT TO OBSERVE AND TEACH INSTRUCTIONS OF DIABETIC CARE TO INCLUDE: DIET DIABETIC, SKIN CARE, SIGNS AND SYMPTOMS OF HYPO/HYPERGLYCEMIA, PROPER ADMINISTRATION OF DIABETIC MEDICATION. RN/BREAK OFF WORKER/POLYMER MATERIALS CONSULTANT TO INSTRUCT ON DIABETIC FOOT CARE AND MONITOR FOR SKIN LESIONS ON LOWER EXTREMITIES. BLOOD GLUCOSE TESTING 4X DAILY FREQ. RN TO ASSESS AND TEACH, BREAK OFF WORKER/POLYMER MATERIALS CONSULTANT TO OBSERVE AND TEACH PATIENT/CAREGIVER ABILITY TO PERFORM AND RECORD BLOOD GLUCOSE TESTING ORDERED AND TO REPORT ABNORMAL FINDINGS TO PHYSICIAN. RN/BREAK OFF WORKER/POLYMER MATERIALS CONSULTANT MAY PERFORM BLOOD GLUCOSE TEST NEEDED. RN/BREAK OFF WORKER/POLYMER MATERIALS CONSULTANT TO REPORT TO PHYSICIAN BLOOD GLUCOSE READINGS GREATER THAN 350 OR LESS THAN 80 RN/BREAK OFF WORKER/POLYMER MATERIALS CONSULTANT TO INSTRUCT PATIENT ON IMPORTANCE OF HGBA1C MONITORING, KIDNEY FUNCTION TEST, EYE AND FOOT EXAMS. [code = DIABETES MANAGEMENT; RN TO ASSESS AND TEACH, BREAK OFF WORKER/POLYMER MATERIALS CONSULTANT TO OBSERVE AND TEACH INSTRUCTIONS OF DIABETIC CARE TO INCLUDE: DIET DIABETIC, SKIN CARE, SIGNS AND SYMPTOMS OF HYPO/HYPERGLYCEMIA, PROPER ADMINISTRATION OF DIABETIC MEDICATION. RN/BREAK OFF WORKER/POLYMER MATERIALS CONSULTANT TO INSTRUCT ON DIABETIC FOOT CARE AND MONITOR FOR SKIN LESIONS ON LOWER EXTREMITIES. BLOOD GLUCOSE TESTING 4X DAILY FREQ. RN TO ASSESS AND TEACH, BREAK OFF WORKER/POLYMER MATERIALS CONSULTANT TO OBSERVE AND TEACH PATIENT/CAREGIVER ABILITY TO PERFORM AND RECORD BLOOD GLUCOSE TESTING ORDERED AND TO REPORT ABNORMAL FINDINGS TO PHYSICIAN. RN/BREAK OFF WORKER/POLYMER MATERIALS CONSULTANT MAY PERFORM BLOOD GLUCOSE TEST NEEDED. RN/BREAK OFF WORKER/POLYMER MATERIALS CONSULTANT TO REPORT TO PHYSICIAN BLOOD GLUCOSE READINGS GREATER THAN 350 OR LESS THAN 80 RN/BREAK OFF WORKER/POLYMER MATERIALS CONSULTANT TO INSTRUCT PATIENT ON IMPORTANCE OF HGBA1C MONITORING, KIDNEY FUNCTION TEST, EYE AND FOOT EXAMS.] Future Scheduled Test PAIN MANAG EMENT; RN TO ASSESS AND TEACH, BREAK OFF WORKER/POLYMER MATERIALS CONSULTANT TO OBSERVE AND TEACH AND PROVIDE EDUCATION ON PAIN MANAGEMENT TECHNIQUES. [code = PAIN MANAGEMENT; RN TO ASSESS AND TEACH, BREAK OFF WORKER/POLYMER MATERIALS CONSULTANT TO OBSERVE AND TEACH AND PROVIDE EDUCATION ON PAIN MANAGEMENT TECHNIQUES.] Future Scheduled Test RISK FOR H OSPITALIZATION; RN TO ASSESS/TEACH, BREAK OFF WORKER/POLYMER MATERIALS CONSULTANT TO OBSERVE/TEACH PATIENT/CAREGIVER ON RISK FOR HOSPITALIZATION/EMERGENCY ROOM VISITS, TEACH SIGNS AND SYMPTOMS THAT PUT PATIENT AT RISK, WHEN TO NOTIFY NURSE/PHYSICIAN OF COMPLICATIONS/DECLINE, AND WHEN TO CALL 911. [code = RISK FOR HOSPITALIZATION; RN TO ASSESS/TEACH, BREAK OFF WORKER/POLYMER MATERIALS CONSULTANT TO OBSERVE/TEACH PATIENT/CAREGIVER ON RISK FOR HOSPITALIZATION/EMERGENCY ROOM VISITS, TEACH SIGNS AND SYMPTOMS THAT PUT PATIENT AT RISK, WHEN TO NOTIFY NURSE/PHYSICIAN OF COMPLICATIONS/DECLINE, AND WHEN TO CALL 911.] Future Scheduled Test CARDIOVASC ULAR SYSTEM; RN TO ASSESS/TEACH, POLYMER MATERIALS CONSULTANT/BREAK OFF WORKER TO OBSERVE/TEACH RELATED TO ALTERED CARDIOVASCULAR STATUS TO MINIMIZE COMPLICATIONS AND REDUCE HOSPITALIZATION. [code = CARDIOVASCULAR SYSTEM; RN TO ASSESS/TEACH, POLYMER MATERIALS CONSULTANT/BREAK OFF WORKER TO OBSERVE/TEACH RELATED TO ALTERED CARDIOVASCULAR STATUS TO MINIMIZE COMPLICATIONS AND REDUCE HOSPITALIZATION.] Future Scheduled Test HYPERTENSI ON MANAGEMENT; RN TO ASSESS AND TEACH, POLYMER MATERIALS CONSULTANT/BREAK OFF WORKER TO OBSERVE AND TEACH WARNING SIGNS AND SYMPTOMS TO AVOID HOSPITALIZATION. [code = HYPERTENSION MANAGEMENT; RN TO ASSESS AND TEACH, POLYMER MATERIALS CONSULTANT/BREAK OFF WORKER TO OBSERVE AND TEACH WARNING SIGNS AND SYMPTOMS TO AVOID HOSPITALIZATION. ] Future Scheduled Test ARRHYTHMIA MANAGEMENT; RN TO ASSESS AND TEACH, POLYMER MATERIALS CONSULTANT/BREAK OFF WORKER TO OBSERVE AND TEACH WARNING SIGNS AND SYMPTOMS TO AVOID HOSPITALIZATION. [code = ARRHYTHMIA MANAGEMENT; RN TO ASSESS AND TEACH, POLYMER MATERIALS CONSULTANT/BREAK OFF WORKER TO OBSERVE AND TEACH WARNING SIGNS AND SYMPTOMS TO AVOID HOSPITALIZATION. ] Future Scheduled Test AGENCY MAY PERFORM A RESUMPTION OF CARE VISIT FOLLOWING ANY HOSPITAL ADMISSION. PT TO EVALUATE, OBSERVE / ASSESS, AND MONITOR, EARLY CHILDHOOD ASSISTANT TO OBSERVE AND MONITOR, PROVIDE SKILLED THERAPEUTIC INTERVENTION, ACTIVITY, EDUCATION, AND TRAINING TO ADDRESS; PT/EARLY CHILDHOOD ASSISTANT TO PROVIDE GAIT TRAINING FOR IMPROVED MOBILITY AND /OR TO NORMALIZE GAIT PATTERN NEUROMUSCULAR RE-EDUCATION / BALANCE / POSTURAL CONTROL (PT) PT/EARLY CHILDHOOD ASSISTANT TO PROVIDE STAIR TRAINING SIT TO/FROM STAND TRANSFERS (PT/EARLY CHILDHOOD ASSISTANT) PT TO ASSESS / EARLY CHILDHOOD ASSISTANT TO MONITOR FOR AND REPORT EARLY SIGNS OF ANTICOAGULANT TOXICITY TO THE PHYSICIAN AND/OR THE RN CLINICAL CAMBERING MACHINE OPERATOR FOR PHYSICIAN NOTIFICATION AND TO PROVIDE PATIENT/CAREGIVER EDUCATION ON ANTICOAGULANT THERAPY PT / EARLY CHILDHOOD ASSISTANT TO MONITOR FOR HYPO/HYPERGLYCEMIA AND CONDUCT ROUTINE FOOT INSPECTIONS. RECORD PATIENT REPORTED BLOOD SUGAR LEVELS AND NOTIFY PHYSICIAN AND/OR THE RN CLINICAL CAMBERING MACHINE OPERATOR FOR PHYSICIAN NOTIFICATION IF BLOOD SUGAR LEVELS ARE OUTSIDE ORDERED PARAMETERS. TEACH PATIENT/CAREGIVER ON DAILY FOOT INSPECTIONS PT TO ASSESS / EARLY CHILDHOOD ASSISTANT TO MONITOR FOR HEART FAILURE EXACERBATION AND RECORD PATIENT REPORTED WEIGHT, AND NOTIFY THE PHYSICIAN AND/OR THE RN CLINICAL CAMBERING MACHINE OPERATOR FOR PHYSICIAN NOTIFICATION OF HF EXACERBATION (2LB WEIGHT GAIN IN 1 DAY, 5LBS IN A WEEK OR 5 LBS OVER BASELINE; INCREASED SOB, EDEMA, NEEDING MORE PILLOWS AT NIGHT, CRACKLES IN BASIS OF THE LUNGS OR PMI SHIFT) PT TO ASSESS / EARLY CHILDHOOD ASSISTANT TO MONITOR CARDIO/RESPIRATORY SYSTEM; AND NOTIFY THE PHYSICIAN AND/OR THE RN CLINICAL CAMBERING MACHINE OPERATOR FOR PHYSICIAN NOTIFICATION FOR EARLY SIGNS AND SYMPTOMS OF EXACERBATION OR DETERIORATION. PT/EARLY CHILDHOOD ASSISTANT TO IDENTIFY FALL RISK FACTORS; EDUCATE THE PATIENT/CAREGIVER ON WAYS TO REDUCE FALL RISK FACTORS AND ESTABLISH HOME EXERCISE PROGRAM TO MINIMIZE FALL RISK. MAY TEACH THE PATIENT FLOOR RECOVERY WHEN CLINICALLY APPROPRIATE PT / EARLY CHILDHOOD ASSISTANT TO EDUCATE ON CVA SELF-MANAGEMENT PT / EARLY CHILDHOOD ASSISTANT MAY EDUCATE ON PAIN MANAGEMENT CLINICALLY INDICATED, INCLUDING NON-PHARMACOLOGICAL PAIN REDUCTION TECHNIQUES PT / EARLY CHILDHOOD ASSISTANT TO INSTRUCT PATIENT/CAREGIVER ON RISK FOR HOSPITALIZATION/EMERGENCY ROOM VISITS, TEACH SIGNS AND SYMPTOMS THAT PUT PATIENT AT RISK, WHEN TO NOTIFY NURSE/PHYSICIAN OF COMPLICATIONS/DECLINE, AND WHEN TO CALL 911. PT / EARLY CHILDHOOD ASSISTANT TO EDUCATE ON HEART FAILURE SELF-MANAGEMENT PT / EARLY CHILDHOOD ASSISTANT TO EDUCATE ON HYPERTENSION SELF-MANAGEMENT PT / EARLY CHILDHOOD ASSISTANT TO EDUCATE ON ATRIAL FIBRILLATION SELF-MANAGEMENT. PT / EARLY CHILDHOOD ASSISTANT TO EDUCATE ON COPD SELF-MANAGEMENT [code = AGENCY MAY PERFORM A RESUMPTION OF CARE VISIT FOLLOWING ANY HOSPITAL ADMISSION. PT TO EVALUATE, OBSERVE / ASSESS, AND MONITOR, EARLY CHILDHOOD ASSISTANT TO OBSERVE AND MONITOR, PROVIDE SKILLED THERAPEUTIC INTERVENTION, ACTIVITY, EDUCATION, AND TRAINING TO ADDRESS; PT/EARLY CHILDHOOD ASSISTANT TO PROVIDE GAIT TRAINING FOR IMPROVED MOBILITY AND /OR TO NORMALIZE GAIT PATTERN NEUROMUSCULAR RE-EDUCATION / BALANCE / POSTURAL CONTROL (PT) PT/EARLY CHILDHOOD ASSISTANT TO PROVIDE STAIR TRAINING SIT TO/FROM STAND TRANSFERS (PT/EARLY CHILDHOOD ASSISTANT) PT TO ASSESS / EARLY CHILDHOOD ASSISTANT TO MONITOR FOR AND REPORT EARLY SIGNS OF ANTICOAGULANT TOXICITY TO THE PHYSICIAN AND/OR THE RN CLINICAL CAMBERING MACHINE OPERATOR FOR PHYSICIAN NOTIFICATION AND TO PROVIDE PATIENT/CAREGIVER EDUCATION ON ANTICOAGULANT THERAPY PT / EARLY CHILDHOOD ASSISTANT TO MONITOR FOR HYPO/HYPERGLYCEMIA AND CONDUCT ROUTINE FOOT INSPECTIONS. RECORD PATIENT REPORTED BLOOD SUGAR LEVELS AND NOTIFY PHYSICIAN AND/OR THE RN CLINICAL CAMBERING MACHINE OPERATOR FOR PHYSICIAN NOTIFICATION IF BLOOD SUGAR LEVELS ARE OUTSIDE ORDERED PARAMETERS. TEACH PATIENT/CAREGIVER ON DAILY FOOT INSPECTIONS PT TO ASSESS / EARLY CHILDHOOD ASSISTANT TO MONITOR FOR HEART FAILURE EXACERBATION AND RECORD PATIENT REPORTED WEIGHT, AND NOTIFY THE PHYSICIAN AND/OR THE RN CLINICAL CAMBERING MACHINE OPERATOR FOR PHYSICIAN NOTIFICATION OF HF EXACERBATION (2LB WEIGHT GAIN IN 1 DAY, 5LBS IN A WEEK OR 5 LBS OVER BASELINE; INCREASED SOB, EDEMA, NEEDING MORE PILLOWS AT NIGHT, CRACKLES IN BASIS OF THE LUNGS OR PMI SHIFT) PT TO ASSESS / EARLY CHILDHOOD ASSISTANT TO MONITOR CARDIO/RESPIRATORY SYSTEM; AND NOTIFY THE PHYSICIAN AND/OR THE RN CLINICAL CAMBERING MACHINE OPERATOR FOR PHYSICIAN NOTIFICATION FOR EARLY SIGNS AND SYMPTOMS OF EXACERBATION OR DETERIORATION. PT/EARLY CHILDHOOD ASSISTANT TO IDENTIFY FALL RISK FACTORS; EDUCATE THE PATIENT/CAREGIVER ON WAYS TO REDUCE FALL RISK FACTORS AND ESTABLISH HOME EXERCISE PROGRAM TO MINIMIZE FALL RISK. MAY TEACH THE PATIENT FLOOR RECOVERY WHEN CLINICALLY APPROPRIATE PT / EARLY CHILDHOOD ASSISTANT TO EDUCATE ON CVA SELF-MANAGEMENT PT / EARLY CHILDHOOD ASSISTANT MAY EDUCATE ON PAIN MANAGEMENT CLINICALLY INDICATED, INCLUDING NON-PHARMACOLOGICAL PAIN REDUCTION TECHNIQUES PT / EARLY CHILDHOOD ASSISTANT TO INSTRUCT PATIENT/CAREGIVER ON RISK FOR HOSPITALIZATION/EMERGENCY ROOM VISITS, TEACH SIGNS AND SYMPTOMS THAT PUT PATIENT AT RISK, WHEN TO NOTIFY NURSE/PHYSICIAN OF COMPLICATIONS/DECLINE, AND WHEN TO CALL 911. PT / EARLY CHILDHOOD ASSISTANT TO EDUCATE ON HEART FAILURE SELF-MANAGEMENT PT / EARLY CHILDHOOD ASSISTANT TO EDUCATE ON HYPERTENSION SELF-MANAGEMENT PT / EARLY CHILDHOOD ASSISTANT TO EDUCATE ON ATRIAL FIBRILLATION SELF-MANAGEMENT. PT / EARLY CHILDHOOD ASSISTANT TO EDUCATE ON COPD SELF-MANAGEMENT ] Goal [...] End Date/Time Encounter Type Admission Type Attending [facility] Department Encounter ID Discharge Date Discharge Status Discharge Condition Discharge Reason Percent Goals Met 2024-10-31 00:00:00 2024-12-29 00:00:00 Outpatient NEW ADMISSION JONATHAN LYONS [facility] [id number] 23.40
--- OUTSIDE RECORDS SUMMARY | 2024-12-13 10:39 | XMS_ITS | Encounter Summary ---
Author Organization [facility] Address [address] [place] [address] Phone Care Team Providers Care Nurse Wound Care Name Role Phone Barry Ralph MD Primary Care Provider [phone] Rehan Sheth MD Unavailable [phone] Encounter Details Date Type Department Care Team (Late st Contact Info) Description 11/11/2024 Telephone [facility] Cardiology [address] [facility] [address] [facility] 8th [place] [address] [place] [address] Rehan Sheth MD [address] [facility] [address] [place] [address] Social History Tobacco Use Types Packs/Day Years Used Date Smoking Tobacco: Never Smokeless Tobacco: Never [facility] Utilities Answer Date Recorded In the past 12 months has [employer] electric, gas, oil, or water company threatened [...] How often do you attend chur or yarsani services? More than 4 times per year 09/15/2024 Do you belong to any clubs o r organizations such as jain groups, unions, fraternal or athletic groups, or [...] Date Recorded PHQ-2 Total Score 0 09/12/2024 [facility] Answer [...] place to sleep or slept in a snf (including now)? No 01/01/2024 Housing Stability Vital [...] were you homeless or living in a snf (including now)? No 09/15/2024 Personal Safety Answer Date Recorded Have you ever been in or are you currently in a harmful physical or emotional relationship or is someone making you feel afraid or unsafe? 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 Author CCM Chronic Pain Care Plan Chronic Care Management Improving( 10:49 AM METAL PAINTER) Nenita Sanchez, RN Note: Problem: Chronic Pain Goals: 1. Minimize further functional decline 2. Maximize quality of life 3. Control pain Strategies: - Activity/exercise program recommendation - Conservative stepwise pain medicine strategy with multi-disciplinary approach - Recommend healthy lifestyle strategies and compensatory methods as needed documented as of this encounter Visit Diagnoses Not on filedocumented in this encounter Care Teams Nurse Wound Care Relationship Specialty Start Date End Date Barry Ralph MD PCP - General Family Practice 05/22/24 Rehan Sheth MD [address] [address] Consulting Physician Cardiology 09/09/24 documented as of this encounter
--- OUTSIDE RECORDS SUMMARY | 2024-12-13 10:39 | XMS_ITS | Clinical Summary ---
Author Organization [facility] Address [address] [place] [address] Care Team Providers Care Program Professional Name Role Phone Robin Nelson MD Primary [...] Active METFORMIN 1000 MG tabletIndications :Diabetes mellitus ([facility]) TAKE 1 TABLET BY MOUTH TWICE A DAY 60 tablet 2 1 Active PIOGLITAZONE 15 MG tabletIndications :Type 2 diabetes mellitus with stage 3a chronic kidney disease, without long-term current use of insulin ([facility]) TAKE 1 TABLET BY MOUTH [...] Date COPD (chronic obstructive pu lmonary disease) ([facility]) 02/02/2020 Diabetes mellitus ([facility]) Hypertension Immunizations Immunization Administration Dates Next Due Flublok (Quadrivalent) 06/02/2020 Fluzone High Dose - >Age 65 (Prefilled Syringe) 07/02/2018 PFIZER COVID-19 (ORIGINAL FO RMULATION, PURPLE CAP) mRNA, LNP-S, PF, 30 MCG/0.3 ML DOSE 10/23/2020,09/25/2020 Tdap (Generic) 03/08/2019,03/19/2016 Zoster (Zostavax) 29672 Unt/0.65Ml 03/19/2016 Social History Tobacco Use Types [...] Comments Blood Pressure 155/71 09/19/2021 12:53 PM SPLUNK CONSULTANT Pulse 68 09/19/2021 12:53 PM SPLUNK CONSULTANT Temperature 35.8 C (96.5 F) 09/19/2021 11:03 AM SPLUNK CONSULTANT Respiratory Rate 20 09/19/2021 11:03 AM SPLUNK CONSULTANT Oxygen Saturation 95% 09/19/2021 12:53 PM SPLUNK CONSULTANT Inhaled Oxygen Concentration - - Weight 113.4 kg (250 lb) 09/15/2021 2:17 PM SPLUNK CONSULTANT Height 182.9 cm (6') 09/15/2021 2:17 PM SPLUNK CONSULTANT Body Mass Index 33.91 09/15/2021 2:17 PM SPLUNK CONSULTANT Plan of Treatment Health Maintenance Due Date [...] this topic Medical Devices Implanted Type Area Tube Tester Device Identifier Shelf Expiration Date Model / Serial / Lot Intraocular Lens Implanted:Qty: 1 on 09/19/2021 by Daren Rlaph MD at [facility] Left: Eye 04/14/2023 [id number] / [id number] / Procedures Procedure Name Priority Date/Time Associated Diagnosis Comments HEMOGLOBIN, GLYCOSYLATED Routine 07/05/2020 Type 2 diabetes mellitus with stage 3a chronic kidney disease, without long-term current use of insulin LIPID PANEL Routine 02/02/2020 11:47 AM CDT Dyslipidemia from Last 3 Months or Most Recently Relevant to Health Maintenance Results * HEMOGLOBIN, GLYCOSYLATED (07/05/2020) HGB A1C 8.2 % [address] ([id number] [facility]) [place] 07/05/2020 Collette Stockton MD LABORATORY Final Result [facility] ([id number] [facility]) [place] [id number] [place] [address], * (ABNORMAL) LIPID PANEL (02/02/2020 11:47 AM CDT) CHOLESTEROL 123 <200 mg/dL [facility] HDL 37(L) > OR = 40 mg/dL [facility] TRIGLYCERIDES 237(H) <150 mg/dL [facility] Comment: If a non-fasting specimen was collected, consider repeat triglyceride testing on a fasting specimen if clinically indicated. Amrit et al. J. of Clin. Lipidol. 2015;9:129-169. LDL (CALCULATED) 56 mg/dL (calc) [facility] Comment: Reference range: <100 Desirable range <100 mg/dL for primary prevention; <70 mg/dL for patients with CHD or diabetic patients with > or = 2 CHD risk factors. LDL-C is now calculated using the Herber-Chapa calculation, which is a validated novel method providing better accuracy than the Friedewald equation in the estimation of LDL-C. Herber SS et al. SADE. 2013;310(19): 4729-8070 (http://education.General Blood/faq/ZYI035) CHOL/HDL RATIO 3.3 <5.0 (calc) [facility] NON HDL CHOLESTEROL 86 <130 mg/dL (calc) [facility] Comment: For patients with diabetes plus 1 major ASCVD risk factor, treating to a non-HDL-C goal of <100 mg/dL (LDL-C of <70 mg/dL) is considered a therapeutic option. 02/02/2020 11:4 7 AM CDT 02/03/2020 3:01 AM CDT Narrative Resulting Agency Comment Performing Organization Information: Site ID: [place] Name: [facility] Address: [address] [address] Director: Siva Roman D.O., MPH Collette Stockton MD LABORATORY Final Result [facility] [address] [address], [place] from Last 3 Months or Most Recently Relevant to Health Maintenance Insurance [facility] Care Teams Program Professional Relationship Specialty Start Date End Date Robin Nelson MD [address] [place] [address] PCP - General INTERNAL MEDICINE 08/10/21
--- OUTSIDE RECORDS SUMMARY | 2024-12-13 10:39 | XMS_ITS | Clinical Summary ---
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 -s/p Successful PCI to [...] Plan (05/20/2024 11:34 AM CDT): Went to [facility] 05/17 for SOB, new 2L O2 requirement - OSH workup: Trp 1.95>5.1>10, proBNP 6800, CXR w/ mild interstitial edema - OSH [facility] 05/19 w/ L main widely patent, LAD proximal body 80% stenosis, LAD stent w/ moderate ISR, L cx w/ 95% stenosis in proximal body, OM branches w/ mild disease, RCA is DIRECTOR STAFFING in mid body w/ L to R collaterals - cath films uploaded - OSH TTE reportedly w/ EF 50%, AV prosthesis w/o abnormal gradients - trop here 7,2893, repeat pending - currently denies chest pain or pressure, sob improving - PCI today - continue heparin drip - continue asa, coreg, atorvastatin 80mg - telemetry Assessment & Plan (05/20/2024 1:02 AM CDT): Went to [facility] 05/17 for SOB, new 2L O2 requirement - OSH workup: Trp 1.95>5.1>10, proBNP 6800, CXR w/ mild interstitial edema - OSH [facility] 05/19 w/ L main widely patent, LAD proximal body 80% stenosis, LAD stent w/ moderate ISR, L cx w/ 95% stenosis in proximal body, OM branches w/ mild disease, RCA is DIRECTOR STAFFING in mid body w/ L to R [...] & Plan (05/21/2024 10:58 AM CDT): P/t [facility] 05/17 for SOB, on 3.5L now - [...] & Plan (05/20/2024 11:50 AM CDT): P/t [facility] 05/17 for SOB, on 3.5L now - [...] & Plan (05/20/2024 1:00 AM CDT): P/t [facility] 05/17 for SOB, on 2L now - [...] benefi Assessment & Plan (07/04/2024 1:02 PM LNA): He may just be symptomatic from his [...] Assessment & Plan (03/17/2024 1:48 PM CDT): Cogeneration Technician stenosis and 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 Still [...] stenosis. Assessment & Plan (07/04/2024 1:03 PM LNA): Failed LMBB. Assessment & Plan (04/23/2024 5:41 [...] Medicare annual wellness exam 05/20 long term (current) use of anticoagulants [Z79.0 1] 03/27/2018 Atrial fibrillation ([facility] [...] quiescent Assessment & Plan (09/04/2018 10:33 AM LNA): COPD is unchanged. COPD information handout given. [...] to PT - wants to go to [facility]. Trial robaxin. Flexeril on med list but [...] no Assessment & Plan (10/01/2019 10:35 AM LNA): S2 makes a wonderfully crisp snap w/o any regurge Gastroesophageal reflux disease 09/17/2014 Tussive syncope 08/25/2014 Syncope and collapse 08/21/2014 Syncope 08/21/2014 Type 2 diabetes mellitus 07/10/2014 Overview (05/13/2021): Was on levemir but stopped 2015 then on trulicity so on metformin ALONE We had better control w/ Jardiance -since he has been w/ Dr Stockton [phone] has been on Actose and metformin- Off [...] heart- Assessment & Plan (10/01/2019 10:30 AM LNA): His A1C has crept to 7.5% Admits [...] covered Assessment & Plan (09/04/2018 10:42 AM LNA): Diabetes is worsening. Continue current treatment regimen. Reminded to bring in blood sugar diary at next visit. Dietary recommendations for ADA diet. Regular aerobic exercise. Discussed foot care. Reminded to get yearly retinal exam. Diabetes will be reassessed in 3 months. Given his financial concerns my advice is to use food as Prezto Obesity with body mass index 30 or greater 07/09 Generalized anxiety disorder 07/09/2014 Assessment & Plan (10/01/2019 10:32 AM LNA): He gets along nicely w/ a low [...] Type Department Care Team Description 12/04/2024 Telephone [facility] [address] [facility] Advanced Medicine 8th [place] [address] [place] [address] Rehan Sheth MD med list fax 11/11/2024 Telephone [facility] [address] [facility] Advanced [facility] 8th [place] [address] [place] [address] Rehan Sheth MD 11/07/2024 10:15 AM CDT Office Visit [facility] [address] [facility] [address] [place] [phone] Clayton Robertson DO Spinal stenosis of lumbar region with neurogenic claudication 11/05/2024 2:00 PM CDT Office Visit [facility] [address] [place] [address] 8th [place] [address] [place] [phone] Rehan Sheth MD Coronary artery disease involving port gamble coronary artery of port gamble heart with angina pectoris (Primary Dx); Paroxysmal atrial fibrillation (HCC); Chronic heart failure with preserved ejection fraction (HCC) 11/05/2024 Telephone [facility] [address] [place] [address] 8th [place] [address] [place] [phone] Rehan Sheth MD 10/14/2024 SHOP/CHAP Subsequent Outreach [facility] OP CASE MANAGEMENT [address] [place] [address] Sangita Moore, RN 10/10/2024 SHOP/CHAP Subsequent Outreach [facility] OP CASE MANAGEMENT [address] [place] [address] Sangita Moore, RN 10/08/2024 Documentation [facility] [address] [place] [address] Yvonne Tanner RN 10/08/2024 SHOP/CHAP Subsequent Outreach [facility] CASE MANAGEMENT [address] [place] [address] Sangita Moore, RN 10/07/2024 Telephone [facility] [address] [place] [address] 8th [place] [address] [place] [phone] Rehan Sheth MD shortness of breath/anxiety 10/07/2024 SHOP/CHAP Subsequent Outreach [facility] CASE MANAGEMENT [address] [place] [address] Sangita Moore, RN 10/06/2024 2:18 PM LNA - 10/06/2024 7:30 PM LNA Emergency [facility] Emergency Department [address] [place] [address] Aneta Castellanos MD Altered mental status, unspecified altered mental status type (Primary Dx) Discharge Disposition: Discharge to home or self care 10/06/2024 SHOP/CHAP Subsequent Outreach [facility] OP CASE MANAGEMENT [address] [place] [address] Sangita Moore RN 10/06/2024 Results Follow-Up [facility] [address] [place] [address] Advanced Medicine 8th [place] [address] [place] [address] Amanda Chatman RN 10/06/2024 Telephone [facility] 8th [place] [address] [place] [address] Rehan Sheth MD [facility] 10/03/2024 10:45 AM [facility] - 10/03/2024 12:00 PM LNA Surgery [facility] [address] [place] [phone] Nigel Holman MD Right Left Heart Catheterization with Coronary Angiography with or without Left Ventriculography [id number] 10/03/2024 7:50 AM LNA - 10/03/2024 5:48 PM LNA Hospital Encounter [facility] [address] [place] [address] Nigel Holman MD Chest pain, unspecified type (Primary Dx); Chronic systolic heart failure (HCC); Coronary artery disease involving port gamble coronary artery of port gam[place] heart with angina pectoris; Acute on chronic heart failure, unspecified heart failure type (HCC); Paroxysmal atrial fibrillation (HCC); History of aortic valve replacement Discharge Disposition: Discharge to home or self care 09/30/2024 SHOP/CHAP Subsequent Outreach [facility] OP CASE MANAGEMENT [address] [place] [address] Sangita Moore RN 09/26/2024 SHOP/CHAP Subsequent Outreach [facility] OP CASE MANAGEMENT [address] [place] [address] Sangita Moore, RN 09/25/2024 Orders Only [facility] [address] [place] [address] [facility] 8th [place] [address] [place] [address] Naila Cortez RN High risk medications (not anticoagulants) long-term use (Primary Dx) 09/25/2024 Telephone [facility] [address] [place] [address] [place] [address] [place] [address] Rehan Sheth MD 09/24/2024 7:40 PM LNA Lab [facility] ([facility]) [address] [place], [place] [phone] Chronic heart failure with preserved ejection fraction (HCC) 09/24/2024 3:15 PM LNA Office Visit [facility] [address] [place] [address] [place] [address] Rehan Sheth MD Chronic heart failure with preserved ejection fraction (HCC) (Primary Dx); History of aortic valve replacement; Benign essential hypertension; Paroxysmal atrial fibrillation (HCC) 09/24/[address] [place] [address] Rehan Sheth MD cardiac cath 09/23/2024 SHOP/CHAP Subsequent Outreach [facility] CASE [facility]NAGEMENT [address] [place] [address] Sangita Moore, RN 09/17/2024 SHOP/CHAP Subsequent Outreach [facility] CASE MANAGEMENT [address] [place] [address] Sangita Moore, RN 09/15/2024 SHOP/CHAP Initial Outreach [facility] CASE MANAGEMENT [address] [place] [address] Sangita Moore, RN 09/15/2024 Telephone [facility] [address] [facility] 8th [place] [address] [place] [address] Rehan Sheth MD f/u orders 09/15/2024 SHOP/CHAP Initial Eligibility Review [facility] OP CASE MANAGEMENT [address] [place] [address] Sangita Moore RN 09/11/2024 12:49 PM LNA - 09/14/2024 12:22 PM LNA Hospital Encounter [facility] 1 [place] [address] Joseph Lucas MD [place], MD Melissa King, [...] 03/19/2016 Surgical History Surgery Date Site/Laterality Comments MS LASER VAPORIZATION OF PROSTATE FOR URINE FLOW Laser Vaporization With Transurethral Resection Of Prostate - (Added by TW Conv) MS RPLCMT PROST AORTIC VALVE OPEN XCP HOMOGRF/STENT Aortic Valve Replacement - (Added by TW Conv) BIOPSY DEEP BONE 12/21/2023 N/A CARDIAC CATHETERIZATION 10/03/2024 N/A Procedure: Right Left Heart Catheterization with Coronary Angiography with or without Left Ventriculography [id number]; Surgeon: Nigel Holman MD; Location: [facility] CARDIAC LNA; Service: Cardiovascular; Laterality: N/A; Cp, SOB, CAD Cath with PCI [facility] 05/21/[address] Pedroza. On glucatrol, [...] Cancer Father Diabetes Father Heart attack Father [place] @ 44 y/o Heart disease Father Family history of cardiac disorder - (Added by TW Conv) Cancer Mother Family history of malignant neoplasm - (Added by TW Conv) Diabetes Mother Relation Name Status Comments Father Mother Social History Tobacco Use Types Packs/Day Years Used Date Smoking Tobacco: Never Smokeless Tobacco: Never Tobacco Cessation:Counseling Given: No [employer] Utilities Answer Date Recorded In the past 12 months has e [employer], [employer], oil, or water [employer] threatened to shut off services in your [...] Date Recorded PHQ-2 Total Score 0 09/12/2024 [facility] - Occupational Stress Questionnaire Answer Date [...] place to sleep or slept in a half-way (including now)? No 01/01/2024 Housing Stability Vital [...] time in the past 12 m [facility], were you homeless or living in a half-way (including now)? No 09/15/2024 Personal Safety Answer Date Recorded Have you ever been in or are you currently in a harmful physical or emotional relationship or is someone making you feel afraid or unsafe? Denies 10/06/2024 Sex and Gender Information Value Date Recorded Sex Assigned at Not on file Legal Sex Male 8:23 PM LNA Gender Identity Not on file Sexual Orientation Not on file Obstetrics History Last Filed Vital Signs Vital Sign Reading Time Taken Comments Blood Pressure 156/55 11/05/2024 2:02 PM CDT Pulse 56 11/05/2024 2:02 PM CDT Temperature 36.6 C (97.9 F) 10/06/2024 12:33 PM LNA Respiratory Rate 10 10/06/2024 6:55 PM LNA Oxygen Saturation 97% 11/05/2024 2:02 PM CDT [...] Plan Chronic Care Management Improving( 10:49 AM LNA) Nenita Sanchez, RN Note: Problem: Chronic Pain Goals: 1. Minimize further functional decline 2. Maximize quality of life 3. Control pain Strategies: - Activity/exercise program recommendation - Conservative stepwise pain medicine strategy with multi-disciplinary approach - Recommend healthy lifestyle strategies and compensatory methods as needed Medical Devices Implanted Type Area Spooler Operator Device Identifier Shelf Expiration Date Model / Serial / Lot [email or web address] Branden Angio-Seal Vip Bondek-Plus 8fr .038in 70cm Hemostatic Latex Free [id number] - [id number] - [id number] Implanted:Qty : 1 on 05/20/2024 by Papo Rascon MD at [facility] Collagen Right: Common Femoral Artery [employer] Branden 12/10/2024 [id number] / [id number] / [id number] Prosthetic Valve Prosthetic Valve Heart Description:Heart Valve Medtronic Card Vasc Surgery 4.0 X 12mm Drayden [place] Rx Coronary Stent [id number] - [id number] - [id number] Implanted:Qty : 1 on 05/20/2024 by Vitor Pedroza MD at [facility] Stent N/A: Circumflex Coronary Artery Medtronic Card Vasc Surgery 01/11/2027 [id number] / [id number] / [id number] Medtronic Card Vasc Surgery 4.0 X 12mm Shar [place] Rx Coronary Stent [id number] - [id number] - [id number] Implanted:Qty : 1 on 05/20/2024 by Vitor Pedroza MD at [facility] Stent Left: Anterior Descending Cornary Artery Medtronic Card Vasc Surgery 11/14/2026 [id number] / [id number] / [id number] Medtronic Card Vasc Surgery 4.0 X 18mm Shar [place] Rx Coronary Stent [id number] - [id number] - [id number] Implanted:Qty : 1 on 10/03/2024 by Nigel Holman MD at [facility] Stent Left: Anterior Descending Cornary Artery Medtronic Card Vasc Surgery 04/14/2027 [id number] / [id number] / [id number] Description:Adrian TO lad Procedures Procedure Name Priority Date/Time Associated Diagnosis Comments URINALYSIS, MICROSCOPIC ONLY STAT 10/06/2024 5:51 PM LNA URINALYSIS AND REFLEX TO MICROSCOPIC STAT 10/06/2024 5:51 PM LNA COMPREHENSIVE METABOLIC PANEL Routine 10/06/2024 3:59 PM LNA EGFR Routine 10/06/2024 3:59 PM LNA VITAMIN B12 Routine 10/06/2024 3:59 PM LNA TSH Routine 10/06/2024 3:59 PM LNA CBC WITHOUT DIFFERENTIAL Routine 10/06/2024 3:59 PM LNA RESPIRATORY PATHOGEN PANEL STAT 10/06/2024 3:[address] HEAD WO CONTRAST ED 10/06/2024 3 :37 PM LNA XR CHEST PA LATERAL 2 VIEWS ED 10/06/2024 3:30 PM LNA ECG 12-LEAD STAT 10/06/2024 1:07 PM LNA POCT GLUCOSE DEVICE Routine 10/06/2024 1 2:48 PM LNA EGFR Routine 10/03/2024 4:00 PM LNA DIFFERENTIAL AUTO Routine 10/03/2024 4:0 0 PM LNA CBC WITH AUTO DIFFERENTIAL Routine 10/03/2024 4:00 PM LNA BASIC METABOLIC PANEL Routine 10/03/2024 4:00 PM LNA POCT ACTIVATED CLOTTING TIME, LOW RANGE Routine 10/03/2024 2:14 PM LNA RIGHT AND LEFT HEART CATHETERIZATION Routine 10/03/2024 12:42 PM LNA Chronic systolic heart failure (HCC) Coronary artery disease involving port gamble coronary artery of port gamble heart with angina pectoris Acute on chronic heart failure, unspecified heart failure type (HCC) Paroxysmal atrial fibrillation (HCC) History of aortic valve replacement POCT ACTIVATED CLOTTING TIME, LOW RANGE Routine 10/03/2024 12:42 PM LNA TYPE AND SCREEN Timed 10/03/2024 12:20 PM LNA POCT ACTIVATED CLOTTING TIME, LOW RANGE Routine 10/03/2024 12:06 PM LNA POCT OXYHEMOGLOBIN - DEVICE Routine 10/03/2024 11:47 AM LNA POCT OXYHEMOGLOBIN - DEVICE Routine 10/03/2024 11:45 AM LNA CBC WITHOUT DIFFERENTIAL Routine 10/03/2024 11:45 AM LNA POCT OXYHEMOGLOBIN - DEVICE Routine 10/03/2024 11:44 AM LNA POCT GLUCOSE DEVICE Routine 10/03/2024 8 :45 AM LNA BASIC METABOLIC PANEL Routine 09/29/2024 9:42 AM LNA High risk medications (not anticoagulants) long-term use EGFR Routine 09/24/2024 5:03 PM LNA Chronic heart failure with preserved ejection fraction (HCC) DIFFERENTIAL AUTO Routine 09/24/2024 5:0 3 PM LNA Chronic heart failure with preserved ejection fraction (HCC) BASIC METABOLIC PANEL Routine 09/24/2024 5:03 PM LNA Chronic heart failure with preserved ejection fraction (HCC) PRO B-TYPE NATRIURETIC PEPTIDE Routine 09/24/2024 5:03 PM LNA Chronic heart failure with preserved ejection fraction (HCC) CBC WITH AUTO DIFFERENTIAL Routine 09/24/2024 5:03 PM LNA Chronic heart failure with preserved ejection fraction (HCC) ECG 12-LEAD Routine 09/24/2024 4:01 PM LNA History of aortic valve replacement EGFR STAT 09/14/2024 8:23 AM LNA BASIC METABOLIC PANEL STAT 09/14/2024 8:23 AM LNA HEMOGLOBIN A1C Routine 06/07/2024 8:38 AM CDT LIPID PANEL Routine 06/07/2024 8:38 AM CDT DIABETES FOOT EXAM Routine 11/05/2020 DIABETES EYE EXAM Routine 05/05/2019 from Last 3 Months or Most Recently Relevant to Health Maintenance Results * (ABNORMAL) Urinalysis reflex to microscopic (10/06/2024 5:51 PM LNA) Color, ur Straw Yellow Clarity, ur Clear Clear [facility] Specific gravity, ur 1.010 1.003 - [...] tendency for uric acid stone formation. Source: [facility] [employer] Current Interpretive Data was last revised on 2017 Protein, ur ql Negative Negative [facility] Glucose, ur ql Negative Negative [facility] Ketones, ur Negative Negative [facility] Bilirubin, ur Negative Negative [facility] Blood, ur Negative Negative [facility] Urobilinogen, ur <2.0 <2.0 mg/dL [facility] Nitrite, ur Negative Negative [facility] Leukocyte esterase, ur Trace(A) Negative [facility] UA reflex comment Reflex to microscopic UA will be performed. [facility] Urine 10/06/2024 5:51 PM LNA 10/06/2024 5:58 PM LNA us Aneta Castellanos MD LAB URINE ORDERABLES Final R esult [facility] Department [place] [address] * (ABNORMAL) Urinalysis, microscopic only (10/06/2024 5:51 PM LNA) WBC, ur 0-5 0 - 5 /HPF [...] [facility] Urine 10/06/2024 5:51 PM LNA 10/06/2024 5:58 PM LNA Aneta Castellanos MD LAB URINE ORDERABLES Final R esult [facility] Department [place] [address] * eGFR (10/06/2024 3:59 PM LNA) eGFR 64 >=60 mL/min/1. 73 m2 Comment: [...] last reviewed 2021. Blood 10/06/2024 3:59 PM LNA 10/06/2024 4:26 PM LNA Aneta Castellanos MD LAB BLOOD ORDERABLES Final R esult [facility] Department [place] [address] * Respiratory pathogen panel Nasopharyngeal (10/06/2024 3:59 PM LNA) Pathologist [facility] Influenza A RNA Not Detected Not Detected [facility] Nasopharyngeal 10/06/2024 3: 59 PM LNA 10/06/2024 4:19 PM LNA Narrative [facility] - 10/06/2024 6:14 PM LNA Is the Patient experiencing symptoms consistent with COVID?->No Surveillance testing for transplant patient?->No Interpretive Data The [employer] FilmArray Respiratory Panel (RP2.1) assay is a [...] assay has FDA clearance for testing of [place] swabs. The performance of additional specimen types has been assessed by the performing laboratory. The performance characteristics of this assay have been determined by [facility] Molecular Infectious Disease Laboratory. Current interpretive data was last revised on 22. us Oralia Cummings MD LAB MICROBIOLOGY - GENERAL OR DERABLES Final Result [facility] Department of Laboratories [place], [place] [id number] * (ABNORMAL) CBC without differential (10/06/2024 3:59 PM LNA) [facility] WBC 6.8 3.8 - 9.9 K/cumm Hgb [...] [facility] Blood 10/06/2024 3:59 PM LNA 10/06/2024 4:26 PM LNA us Priscilla Sarmiento MD LAB BLOOD ORDERABLES Final R esult Performing Organization Address City/[facility]/ZIP Co de Phone Number [facility] Department [place] [place] [address] * TSH (10/06/2024 3:59 PM LNA) [facility] Thyroid Stimulating Hormone 3.88 0.30 - 4.20 mcIUnit/mL Blood 10/06/2024 3:59 PM LNA 10/06/2024 4:09 PM LNA us Oralia Cummings MD LAB BLOOD ORDERABLES Final Re sult [facility] [place] [address] * Vitamin B12 (10/06/2024 3:59 PM LNA) Vitamin B12 420 230 - 1,250 pg/mL Blood 10/06/2024 3:59 PM LNA 10/06/2024 4:09 PM LNA Oralia Cummings MD LAB BLOOD ORDERABLES Final Re sult [facility] [place] [address] * (ABNORMAL) Comprehensive metabolic panel (10/06/2024 3:59 PM LNA) Sodium 143 135 - 145 mmol/L Potassium, pl 4.3 3.3 - 4.9 mmol/L [facility] Chloride 104 97 - 110 mmol/L [...] 2022. Calcium 9.1 8.5 - 10.3 mg/dL [facility] Bilirubin, total 0.4 0.1 - 1.2 mg/dL [facility] Protein, pl 7.1 6.5 - 8.5 g/dL [facility] Albumin 3.9 3.5 - 5.0 g/dL [facility] Alk phos 45 40 - 130 Units/L [facility] ALT 15 7 - 55 Units/L [facility] AST 37 10 - 50 Units/L [facility] Blood 10/06/2024 3:59 PM LNA 10/06/2024 4:09 PM LNA us Aneta Castellanos MD LAB BLOOD ORDERABLES Final R esult [facility] [place] [address] * CT Head WO Contrast (10/06/2024 3:37 PM LNA) Anatomical Region Laterality Modality Head and Neck N/A Computed Tomogra phy 10/06/2024 4:29 PM LNA Impressions 10/06/2024 4:41 PM LNA No acute intracranial hemorrhage, large vessel territory infarction, mass effect, or midline shift. Dictated by: Nikolas Vega M.D. The radiology attending physician has personally reviewed this study, and had reviewed and/or edited this written report and agrees with it. Electronically signed by: Johnny Ballesteros M.D, PHD Narrative 10/06/2024 4:41 PM LNA EXAMINATION: CT head without contrast HISTORY: Altered [...] PA Lateral 2 Views (10/06/2024 3:30 PM LNA) Anatomical Region Laterality Modality Body, Chest N/A Computed Radiogr aphy 10/06/2024 3:42 PM LNA Impressions 10/06/2024 3:49 PM LNA Comparison with chest radiograph dated 07/12/2025. Median [...] Luna Perez M.D. Narrative 10/06/2024 3:49 PM LNA EXAMINATION: 2 view chest radiograph Procedure Note [...] lt * ECG 12-LEAD (10/06/2024 1:07 PM LNA) Narrative [facility] - 10/06/2024 1:07 PM LNA Nupur Orozco MD 10/06/2024 1:08 PM ECG 12 lead Date/Time: 10/06/2024 1:07 PM Performed by: Nupur Orozco MD Authorized by: Jaylen Petersen MD Comments: EKG Interpretation Interpreted by ED physician in absence of a habilitation specialist Ventricular rate: 65 bpm Rhythm: sinus with PACs [place]: Normal Intervals: 1st degree av block, wide QRS Other findings: no acute ischemia Interpretation: abnormal EKG, LBBB, ectopy Compared to priors: no priors for comparison Aneta Castellanos MD ECG ORDERABLES Final Result [facility] * POCT glucose (10/06/2024 12:48 PM LNA) [facility] Glucose, POC 112 70 - 199 mg/dL Blood 10/06/2024 12:4 8 PM LNA 10/06/2024 12:48 PM LNA Notinfile Unknown LAB POCT ORDERABLES - DEVICE F inal Result [facility] Department [place] [address] * eGFR (10/03/2024 4:00 PM LNA) [facility] eGFR 73 >=60 mL/min/1. 73 m2 Comment: [...] last reviewed 2021. Blood 10/03/2024 4:00 PM LNA 10/03/2024 4:23 PM LNA us Crescencio Vázquez MD LAB BLOOD ORDERABLES Fi nal Result [facility] [place] [address] * Differential, auto (10/03/2024 4:00 PM LNA) Neutrophil abs 3.7 1.5 - 6.5 K/cumm Imm gran abs 0.0 0.0 - 0.1 K/cumm [facility] [facility] Lymphocyte abs 1.5 0.8 - 3.3 K/cumm [facility] Monocyte abs 0.4 0.2 - 0.8 K/cumm [facility] Eosinophil abs 0.2 0.0 - 0.5 K/cumm [facility] Basophil abs 0.0 0.0 - 0.1 K/cumm [facility] Neutrophil pct 63.5 % [facility] Comment: Interpretive Data [...] revised on 2017. Lymphocyte pct 26.0 % [facility] Comment: Interpretive Data Percent cell count reference ranges are not reported, since discordance with absolute values may lead to misinterpretation of CBC data. Current Interpretive Data was last revised on 2017. Monocyte pct 7.1 % [facility] Comment: Interpretive Data Percent cell count reference ranges are not reported, since discordance with absolute values may lead to misinterpretation of CBC data. Current Interpretive Data was last revised on 2017. Eosinophil pct 2.6 % [facility] Comment: Interpretive Data [...] revised on 2017. Blood 10/03/2024 4:00 PM LNA 10/03/2024 4:18 PM LNA us Crescencio Vázquez MD LAB BLOOD ORDERABLES Fi nal Result [facility] Department [place] [address] * (ABNORMAL) CBC with auto differential (10/03/2024 4:00 PM LNA) WBC 5.8 3.8 - 9.9 K/cumm Hgb [...] [facility] Blood 10/03/2024 4:00 PM LNA 10/03/2024 4:18 PM LNA us Crescencio Vázquez MD LAB BLOOD ORDERABLES Fi nal Result [facility] [place] [address] * Basic metabolic panel (10/03/2024 4:00 PM LNA) Sodium 142 135 - 145 mmol/L Potassium, [...] [facility] Blood 10/03/2024 4:00 PM LNA 10/03/2024 4:18 PM LNA us Crescencio Vázquez MD LAB BLOOD ORDERABLES Fi nal Result Performing Organization Address City/[facility]/ZIP Co de Phone Number [facility] [place] [address] * (ABNORMAL) POCT Activated clotting time, low range (10/03/2024 2:14 PM LNA) ACT 181(H) 123 - 168 sec POC Performer [id number] [facility] POC Device Number [id number] [facility] Blood 10/03/2024 2:14 PM LNA 10/03/2024 2:14 PM LNA us Nigel Homlan MD LAB POCT ORDERABLES - DEVICE Final Result Performing Organization Address [facility] Co de Phone Number [facility] [place] [address] * RIGHT AND LEFT HEART CATHETERIZATION (10/03/2024 12:42 PM LNA) Anatomical Region Laterality Modality X-Ray Angiograph y Impressions 10/03/2024 2:26 PM LNA Severe stenosis of the mid LAD with [...] Nigel Holman MD Narrative 10/03/2024 2:26 PM LNA Table formatting from the original result was not included. Procedure: CORONARY ANGIOGRAM / RIGHT HEART CATHETERIZATION/ percutaneous coronary intervention Patient: Ashkan Pryor is a 84 y.o. male : 1940 MR number: [id number] Date of Service: 10/03/2024 Senior Python Developer: Nigel Holman MD Fellow: Crescencio Vázquez [...] obtained. The patient was brought to the label machine operator and placed on the table Bilateral [...] performed Right heart catheterization preformed with 7 Kiswahili arrow [place] At the end of the procedure, arteriotomy [...] vasodilators and reimage that showed some slight taoist of flow. Upon review it looks as [...] clotting time, low range (10/03/2024 12:42 PM LNA) ACT 252(H) 123 - 168 sec POC Performer [id number] [facility] POC Device Number [id number] [facility] Blood 10/03/2024 12:4 2 PM LNA 10/03/2024 12:42 PM LNA Nigel Holman MD LAB POCT ORDERABLES - DEVICE Final Result Performing Organization Address [facility] Co de Phone Number [facility] [place] [address] * Type and screen (10/03/2024 12:20 PM LNA) Pathologist [facility] Lit, indirect Negative ABO Rh A Positive [facility] Blood 10/03/2024 12:2 0 PM LNA 10/03/2024 12:39 PM LNA Narrative [facility] - 10/03/2024 1:32 PM LNA Has the patient had Daratumumab or Isatuximab in the past 6 months?->Unknown Nigel Holman MD LAB BLOOD BANK TEST ORDERABL ES Final Result Performing Organization Address [facility] Co de Phone Number [facility] [place] [address] * (ABNORMAL) POCT Activated clotting time, low range (10/03/2024 12:06 PM LNA) Pathologist [facility] ACT 240(H) 123 - 168 sec POC Performer [id number] [facility] POC Device Number [id number] [facility] Blood 10/03/2024 12:0 6 PM LNA 10/03/2024 12:06 PM LNA Nigel Holman MD LAB POCT ORDERABLES - DEVICE Final Result Performing Organization Address [facility] Co de Phone Number [facility] [place] [address] * (ABNORMAL) POCT oxyhemoglobin (10/03/2024 11:47 AM LNA) Pathologist [facility] PULP DRIER FIRER Oxyhemoglobin 95.3 >=65.0 % [employer] Hemoglobin 11.7(L) 13.0 - 17.5 g/dL [facility] [employer] O2 content 15.5 15.0 - 22.0 Vol % [facility] Anatomic Site aPOC Aorta descend [facility] Blood 10/03/2024 11:4 7 AM LNA 10/03/2024 11:47 AM LNA Nigel Holman MD LAB POCT ORDERABLES - DEVICE Final Result Performing Organization Address [facility] de Phone Number [facility] [place] [address] * (ABNORMAL) POCT oxyhemoglobin (10/03/2024 11:45 AM LNA) [facility] PULP DRIER FIRER Oxyhemoglobin 67.9 >=65.0 % [employer] Hemoglobin 11.0(L) 13.0 - 17.5 g/dL [facility] PUL[employer] DRI[employer] O2 content 10.4(L) 15.0 - 22.0 Vol % [facility] Anatomic Site aPOC Pulm Art main [facility] Blood 10/03/2024 11:4 5 AM LNA 10/03/2024 11:45 AM LNA Nigel Holman MD LAB POCT ORDERABLES - DEVICE Final Result Performing Organization Address [facility] de Phone Number [facility] [place] [address] * (ABNORMAL) CBC without differential (10/03/2024 11:45 AM LNA) [facility] WBC 6.8 3.8 - 9.9 K/cumm Hgb [...] [facility] Blood 10/03/2024 11:4 5 AM LNA 10/03/2024 11:51 AM LNA Narrative [facility] - 10/03/2024 12:12 PM LNA To be drawn after hydration bolus complete us Nigel Holman MD LAB BLOOD ORDERABLES Final R esult Performing Organization Address City/[facility] Co de Phone Number [facility] [place] [address] * (ABNORMAL) POCT oxyhemoglobin (10/03/2024 11:44 AM LNA) Pathologist [facility] PULP DRIER FIRER Oxyhemoglobin 69.1 >=65.0 % [employer] Hemoglobin 11.3(L) 13.0 - 17.5 g/dL [facility] PULP DRI[employer] FIR[employer] O2 content 10.9(L) 15.0 - 22.0 Vol % [facility] Anatomic Site aPOC Pulm Art main [facility] Blood 10/03/2024 11:4 4 AM LNA 10/03/2024 11:44 AM LNA Nigel Holman MD LAB POCT ORDERABLES - DEVICE Final Result Performing Organization Address [facility] Co de Phone Number [facility] [place] [address] * POCT glucose (10/03/2024 8:45 AM LNA) Glucose, POC 117 70 - 199 mg/dL Blood 10/03/2024 8:45 AM LNA 10/03/2024 8:45 AM LNA Nigel Holman MD LAB POCT ORDERABLES - DEVICE Final Result Performing Organization Address [facility]/ZIP Co de Phone Number [facility] [place] [address] * Basic metabolic panel (09/29/2024 9:42 AM LNA) Pathologist [facility] Glucose 99 65 - 99 mg/dL [facility] Comment: Fasting reference interval BUN 23 7 - 25 mg/dL [facility] Creatinine 0.96 0.70 - 1.22 mg/dL [facility] eGFR 77 > OR = 60 mL/min/1.7 3m2 [facility] BUN/creat ratio SEE NOTE: 6 - 22 (calc) [facility] Comment: Not Reported: BUN and Creatinine are within reference range. Sodium 142 135 - 146 mmol/L [facility] Potassium, pl 4.0 3.5 - 5.3 mmol/L [facility] Chloride 103 98 - 110 mmol/L [facility] CO2 32 20 - 32 mmol/L [facility] Calcium 8.9 8.6 - 10.3 mg/dL [facility] Blood 09/29/2024 9:42 AM LNA 09/29/2024 9:42 AM LNA Rehan Sheth MD LAB BLOOD ORDERABLES F inal Result Performing Organization Address City/[facility]/ZIP Co de Phone Number [email or web address] [address] [place] [address] * (ABNORMAL) eGFR (09/24/2024 5:03 PM LNA) Pathologist [facility] eGFR 55(L) >=60 mL/min/1. 73 m2 Comment: [...] last reviewed 2021. Blood 09/24/2024 5:03 PM LNA 09/24/2024 5:24 PM LNA us Rehan Sheth MD LAB BLOOD ORDERABLES F inal Result [facility] [place] [address] * Differential, auto (09/24/2024 5:03 PM LNA) Neutrophil abs 3.6 1.5 - 6.5 K/cumm Imm gran abs 0.0 0.0 - 0.1 K/cumm [facility] Lymphocyte abs 1.9 0.8 - 3.3 K/cumm [facility] Monocyte abs 0.6 0.2 - 0.8 K/cumm [facility] Eosinophil abs 0.2 0.0 - 0.5 K/cumm [facility] Basophil abs 0.0 0.0 - 0.1 K/cumm [facility] Neutrophil pct 56.5 % [facility] Comment: Interpretive Data [...] on 2017. Lymphocyte pct 30.0 % [facility] Comment: Interpretive Data Percent cell count reference ranges are not reported, since discordance with absolute values may lead to misinterpretation of CBC data. Current Interpretive Data was last revised on 2017. Monocyte pct 9.1 % [facility] Comment: Interpretive Data Percent cell count reference ranges are not reported, since discordance with absolute values may lead to misinterpretation of CBC data. Current Interpretive Data was last revised on 2017. Eosinophil pct 3.3 % [facility] Comment: Interpretive Data Percent cell count reference ranges are not reported, since discordance with absolute values may lead to misinterpretation of CBC data. Current Interpretive Data was last revised on 2017. Basophil pct 0.5 % [facility] Comment: Interpretive Data Percent cell count reference ranges are not reported, since discordance with absolute values may lead to misinterpretation of CBC data. Current Interpretive Data was last revised on 2017. Blood 09/24/2024 5:03 PM LNA 09/24/2024 5:24 PM LNA us Rehan Sheth MD LAB BLOOD ORDERABLES F inal Result [facility] [place] [address] * (ABNORMAL) Pro B-type natriuretic peptide (09/24/2024 5:03 PM LNA) NT-proBNP 2,036(H) <=450 pg/mL Comment: Interpretive Comments: [...] Revised Date: 2018. Blood 09/24/2024 5:03 PM LNA 09/24/2024 5:24 PM LNA Rehan Sheth MD LAB BLOOD ORDERABLES F inal Result [facility] [place] [address] * (ABNORMAL) CBC with auto differential (09/24/2024 5:03 PM LNA) WBC 6.3 3.8 - 9.9 K/cumm Hgb [...] [facility] Blood 09/24/2024 5:03 PM LNA 09/24/2024 5:24 PM LNA Rehan Sheth MD LAB BLOOD ORDERABLES F inal Result Performing Organization Address [facility] Co de Phone Number [facility] [place] [address] * (ABNORMAL) Basic metabolic panel (09/24/2024 5:03 PM LNA) Sodium 145 135 - 145 mmol/L Potassium, [...] [facility] Blood 09/24/2024 5:03 PM LNA 09/24/2024 5:24 PM LNA Rehan Sheth MD LAB BLOOD ORDERABLES F inal Result [facility] [place] [address] * ECG 12 lead (09/24/2024 4:01 PM LNA) us Rehan Sheth MD ECG ORDERABLES Edited Result - Final * eGFR (09/14/2024 8:23 AM LNA) Pathologist [facility] eGFR 63 >=60 mL/min/1. 73 m2 Comment: [...] last reviewed 2021. Blood 09/14/2024 8:23 AM LNA 09/14/2024 8:45 AM LNA us Dalila Torres MD LAB BLOOD ORDERABLES Fi nal Result [facility] [place] [address] * (ABNORMAL) Basic metabolic panel (09/14/2024 8:23 AM LNA) Pathologist [facility] Sodium 140 135 - 145 mmol/L Potassium, [...] [facility] Blood 09/14/2024 8:23 AM LNA 09/14/2024 8:45 AM LNA us Dalila Torres MD LAB BLOOD ORDERABLES Fi nal Result [facility] [place] [address] * (ABNORMAL) Hemoglobin A1c (06/07/2024 8:38 AM CDT) Hgb A1C 6.1(H) 4.0 - 5.6 % Estimated Average Glucose 128 mg/dL [facility] Comment: The ADA recommends reporting an estimated Average Glucose (eAG) with all Hemoglobin A1c results using the equation derived from a study of 507 normal and diabetic adults. Minority populations were underrepresented and children were not included. (Diabetes Care 31:9031-3589, 2008). The eAG is not equivalent to a fasting glucose. Blood 06/07/2024 8:38 AM CDT 06/07/2024 9:07 AM CDT us Joe Hood MD LAB BLOOD ORDER MAITE Final Result [facility] [address] [facility] [place] [address] * Lipid panel (06/07/2024 8:38 AM CDT) [...] LAB BLOOD ORDER MAITE Final Result [facility] [address] [facility] [place] [address] * DIABETES FOOT EXAM (11/05/2020) [facility] Diabetic Foot Exam Normal Historical Provider HEALTH MAINTENANCE Final Result * DIABETES EYE EXAM (05/05/2019) Diabetic Eye Exam Normal Historical Provider HEALTH MAINTENANCE Final Result from Last 3 Months or Most Recently Relevant to Health Maintenance Insurance [employer] CHOICE MEDICARE PPO [facility] MEDICARE ADVANTAGE [facility] MEDICARE ADVANTAGE Advance Directives For more information, please contact: [phone] Documents on File Type Date Recorded Patient Numerical Control Programmer Expl anation ADVANCE DIRECTIVE 12/27/2023 10:41 PM Jorge Pryor P OWER OF DE [employer]CH[employer]-MEDICAL ADVANCE DIRECTIVE 12/26/2023 10:38 AM Yazmin Medina POWER OF DE [employer]CH[employer]-FINANCIAL * Full Code (Latest Code Status on [...] Communication Jorge Pryor Spouse Health Care Agent [email or web address] Yazmin Medina Daughter First Alternate Health Care Agent [email or web address] Care Teams Heel Edge Inker Machine Relationship Specialty Start Date End Date Barry Ralph MD PCP - General Family Practice 05/22/24 Rehan Sheth MD [address] [address] Consulting Physician Cardiology 09/09/24
--- OUTSIDE RECORDS SUMMARY | 2024-12-13 10:39 | XMS_ITS | Encounter Summary ---
Author Organization [facility] Healthcare Address [address] [place] [address] Care Team Providers Care Facility Practice Specialist Name Role Phone Barry Ralph MD Primary Care Provider [phone] Barry Ralph MD Primary Care Provider [phone] Rosalee Crowder RESIDENTIAL SUBCONTRACTOR Unavailable [phone] Rehan Sheth MD Unavailable Sangita Moore RN Unavailable Encounter Details Date Type Department Care Team (Late st Contact Info) Description 02/26/2024 Telephone [facility] [place] [facility] [address] [facility] [address] [place] [address] Aleksander Shankar MD [address] [place] [address] Social History Tobacco Use Types [...] often do you attend chur ch or sabianism services? More than 4 times per year [...] staff should administer the PHQ-9) 0 05/13/2021 [facility] [place] [facility] - Occupational Stress [...] on file Legal Sex Male 8:23 PM ENVIRONMENTAL COMPLIANCE MANAGER Gender Identity Not on file Sexual Orientation Not on file documented as of this encounter Plan of Treatment Not on file documented as of this encounter Goals Goal Patient Goal Type Associated Problems Recent Progress Patient-Stated? Author CCM Chronic Pain Care Plan Chronic Care Management Improving( 10:49 AM ENVIRONMENTAL COMPLIANCE MANAGER) No Nenita Santiago, RN Note: Problem: Chronic [...] to 92 09/12/2024 09/12/2024 09/19/2024 3:07 AM ENVIRONMENTAL COMPLIANCE MANAGER documented as of this encounter Care Teams Facility Practice Specialist Relationship Specialty Start Date End Date Barry Ralph MD PCP - General Family Practice 10/20/22 05/20/24 Barry Ralph MD PCP - General Family Practice 05/22/24 Rosalee Crowder, [facility] [address] [facility] [place] [place] Mailstop [phone] [place] [address] SHOP Outpatient Pollution Control Engineer 05/22/24 06/19/24 Rehan Sheth MD [address] [facility] [address] [place] [address] Consulting Physician Cardiology 09/09/24 Sangita Moore, RN [address] [facility] [address] [place] [address] SHOP Outpatient Pollution Control Engineer 09/15/24 10/13/24 documented as of this encounter
--- NOTE | 2024-12-13 11:18 | ADMGEN ---
This patient, Ashkan Pryor, was admitted to Intensive Care Unit-2. Patient/family oriented to hospital policies and general routines including ID bracelet, bed and alarms, visiting hours, pain management, procedures, bathroom and other care routines, personal items, smoking policy, room service/diet, and visiting hours. Information on how to activate the Rapid Response Team has been discussed. Patient/Family are encouraged to report perceived risks to care and to ask questions if they do not understand what they are told or what they should do.
--- NOTE | 2024-12-13 12:40 | P.HP_ITS ---
H&P: HPI History of Present Illness Date/Time: 12/13/24 13:00 Chief Complaint: Shortness of breath. 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 He gives a 2 day history of increasing lower extremity edema, orthopnea, worsening dyspnea on lesser and lesser exertion, and intermittent and nonradiating left anterior chest tightness. His symptoms seem to be worse with exertion but the chest tightness can occur at rest as well. He and his are in the process of building a new home and they are currently living in their camper and he was unable to find his inhalers to see if they would provide benefit. He denies syncope, near syncope, fever, chills, sweats, sinus congestion, sore throat, productive cough, nausea, vomiting, diarrhea, and calf pain. Of note, he seems to be a bit confused regarding the medications that he is taking and told the nurse that he was no longer taking clopidogrel or furosemide however both of these medications are listed as active on a note by his potato spotter, Dr. Sheth, on 11/04/2024. He told me that he was taking his medications so perhaps is decompensation is related to not taking his medications as prescribed. At the time my evaluation he is feeling better and is sitting up eating a lunch tray. In the ED: Vital signs on arrival include a blood pressure of 199/126, pulse 101, respiratory rate 28, SpO2 95%. Labs were significant for WBC count of 9.0, hemoglobin 12.7, carbon dioxide 20, BUN 21, creatinine 0.92, glucose 197, troponin 0.016, proBNP 7300. Respiratory panel was negative. 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 EKG showed sinus tachycardia with first-degree AV block, right axis deviation, and left bundle-branch block which is an old finding. He was started on BiPAP due to work of breathing which seems to have helped. He was also given furosemide 40 mg IV x1 and sublingual nitroglycerin and he is being admitted in this setting for further treatment of CHF exacerbation. Review of Systems Review of Systems: 12 systems were reviewed and are negativ e except for as per HPI. FORMERLY [facility], [facility]–1983 Past Medical History Medical History (Updated 12/13/24 @ 14:38 by Grace Adkins PA-C) Squamous cell carcinoma Paroxysmal atrial fibrillation Hyperlipidemia Hypertension Transient ischemic attack Diet-controlled type 2 diabetes mellitus Chronic obstructive pulmonary disease Chronic anticoagulation Heart failure with preserved ejection fraction EF 50 to 55% in 05/09/2024 Coronary artery disease Right-sided extracranial carotid artery stenosis Aortic valve disease status post bioprosthetic aortic valve replacemen Surgical History Surgical History History of cataract extraction History of coronary angioplasty with insertion of stent (2023) History of aortic valve replacement with bioprosthetic valve x2 Family History Family History Father Hypertension Heart disease Mother Cancer Diabetes mellitus Hypertension Social History Social History Social History: Surrogate medical decision maker: Jorge Pryor, spouse. Code status: Full code. Smoking status: Never smoker Alcohol intake: never Substance use: never Substance use type: does not use Do You Feel Safe in your Home?: Yes Lack of Transportation: No Lack of Food: Never True Current Housing: I Have Housing Concerned About Future Housing: No Difficulty Paying Gas/Electric Bills: No Difficulty Paying for Meds: No Currently Unemployed: No Education: Decline to Answer Difficulty w/ Childcare or Family Care: No Living arrangements: with family Occupation/Education: retired Spiritual care concerns: No Meds Home Medications and Allergies Home Medications ?Medication ?Instructions ?Recorded ?Confirmed ?Type carvedilol 25 mg tablet 25 mg PO BID #180 tabs 02/14/23 12/13/24 Rx albuterol sulfate 90 mcg/actuation 1 inh inhalation Q4H PRN Shortness 12/27/23 12/13/24 History aerosol inhaler Of Breath Or Wheezing lancets 30 gauge 12/27/23 12/13/24 History blood sugar diagnostic (Accu-Chek #100 ea 02/22/24 12/13/24 Rx Guide test strips) blood-glucose meter (Accu-Chek #1 ea 02/22/24 12/13/24 Rx Guide Glucose Meter) furosemide 40 mg tablet 40 mg PO BID #90 tabs 10/13/24 12/13/24 Rx buspirone 5 mg tablet 5 mg PO Q12HR #60 tabs 10/18/24 12/13/24 Rx apixaban 5 mg tablet 5 mg PO BID #60 tabs 10/31/24 12/13/24 Rx atorvastatin 80 mg tablet 80 mg PO DAILY #30 tabs 10/31/24 12/13/24 Rx clopidogrel 75 mg tablet (Plavix) 75 mg PO DAILY #90 tabs 10/31/24 12/13/24 Rx paroxetine HCl 20 mg tablet 20 mg PO QAM #90 tabs 10/31/24 12/13/24 Rx methocarbamol 500 mg tablet 500 mg PO BID PRN MUSCLE SPASM #10 11/18/24 12/13/24 Rx tabs potassium chloride 20 mEq 20 meq PO DAILY #30 tabs 11/18/24 12/13/24 Rx tablet,extended release (K-Tab) melatonin 5 mg tablet 5 mg PO HS #90 tabs 11/26/24 12/13/24 Rx losartan 25 mg tablet 25 mg PO DAILY #30 tabs 12/08/24 12/13/24 Rx simvastatin 20 mg tablet 20 mg PO QPM 12/13/24 12/13/24 History trazodone 50 mg tablet 50 mg PO HS 12/13/24 12/13/24 History Allergies Allergy/AdvReac Type Severity Reaction Status Date / Time metformin AdvReac Intermediate Diarrhea Verified 12/13/24 11:21 Vital Signs Vital Signs - 24 hr 12/13/24 08:49 12/13/24 08:54 12/13/24 08:55 Temperature Pulse Rate 105 H 101 H 101 H Respiratory Rate 28 H 31 H 28 H Blood Pressure 199/126 H Pulse Oximetry 93 94 95 Oxygen Delivery Room Air Fraction of Inspired Oxygen 12/13/24 09:00 12/13/24 09:08 12/13/24 09:15 Temperature Pulse Rate 97 93 91 Respiratory Rate 26 H 27 H 23 H Blood Pressure 195/93 H Pulse Oximetry 92 95 Oxygen Delivery Fraction of Inspired Oxygen 12/13/24 09:16 12/13/24 09:16 12/13/24 09:17 Temperature Pulse Rate 110 H 91 Respiratory Rate 20 24 H Blood Pressure 162/86 H Pulse Oximetry 94 97 Oxygen Delivery BiPAP BiPAP Fraction of Inspired Oxygen 12/13/24 09:30 12/13/24 09:31 12/13/24 09:46 Temperature Pulse Rate 84 85 84 Respiratory Rate 13 14 12 Blood Pressure 163/78 H 150/74 H Pulse Oximetry 100 98 98 Oxygen Delivery Fraction of Inspired Oxygen 12/13/24 10:01 12/13/24 10:15 12/13/24 10:16 Temperature Pulse Rate 76 Respiratory Rate 12 Blood Pressure 145/76 H 176/82 H Pulse Oximetry 98 99 99 Oxygen Delivery Fraction of Inspired Oxygen 12/13/24 10:30 12/13/24 10:31 12/13/24 11:18 Temperature Pulse Rate 77 77 Respiratory Rate 17 17 Blood Pressure 163/92 H Pulse Oximetry 97 98 98 Oxygen Delivery BiPAP Fraction of Inspired Oxygen 12/13/24 11:19 12/13/24 12:00 12/13/24 12:00 Temperature 98.1 F 98.1 F Pulse Rate 81 69 Respiratory Rate 21 H 14 Blood Pressure 179/90 H 159/89 H Pulse Oximetry 95 97 97 Oxygen Delivery BiPAP Fraction of Inspired Oxygen 30 Exam Narrative: General: Mildly ill-appearing gentleman sitting up in bed in no acute distress. Weight: 104.9 kg. BMI: 31.4. HEENT: PERRL, EOMI. Sclera anicteric. Oral mucosa moist. Neck: Supple. No significant jugular venous distention. Respiratory: Mild tachypnea though he appears in no respiratory distress. Crackles heard at the bases. Cardiovascular: Regular rate and rhythm with S1-S2. Systolic murmur at the upper sternal border. Gastrointestinal: Abdomen is soft, nontender, and nondistended with positive bowel sounds. Skin: Warm and dry. Extremities: No cyanosis or clubbing. 1+ bilateral lower extremity edema. No palpable knots or cords. Negative Gia sign bilaterally. Radial and pedal pulses intact. Neurological: Alert and oriented. Cranial nerves 2-12 are grossly intact. 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 No gross focal deficits to casual conversation. Psychiatric: Pleasant and cooperative with appropriate mood and affect. H&P: Results Labs Labs: Short CBC 12/13/24 Range/Units 09:07 WBC 9.0 (4.5-10.0) K/mm3 Hgb 12.7 L (14.0-18.0) g/dL Hct 39.3 L (42.0-52.0) % Plt Count 202 (150-375) k/mm3 BMP 12/13/24 09:07 Sodium 139 Potassium 4.2 Chloride 109 H Carbon Dioxide 20 L BUN 21 H D Creatinine 0.92 Glucose 197 H Calcium 8.7 Cardiac Enzymes 12/13/24 Range/Units 09:07 Troponin I 0.016 (0.000-0.034) ng/mL Liver Function 12/13/24 Range/Units 09:07 Total Bilirubin 0.7 (0.2-1.3) mg/dL AST 28 (17-59) U/L ALT 21 (6-50) U/L Alkaline Phosphatase 73 (38-126) U/L Albumin 4.2 (3.5-5.1) g/dL Imaging Chest X-Ray 12/13/24 09:02 IMPRESSION: 1. Interstitial and airspace opacities in bilateral mid and lower lung zones which could represent congestive heart failure related mild pulmonary edema or pneumonia. 2. Cardiomegaly. Assessment and Plan Assessment and plan (1) Acute exacerbation of chronic heart failure: Code(s): I50.9 - Heart failure, unspecified Status: Acute (2) Hypertension: Code(s): I10 - Essential (primary) hypertension Status: Acute (3) Coronary artery disease: Code(s): I25.10 - Atherosclerotic heart disease of [place] coronary artery without angina pectoris Status: Acute (4) Paroxysmal atrial fibrillation: Code(s): I48.0 - Paroxysmal atrial fibrillation Status: Acute (5) Chronic anticoagulation: Code(s): Z79.01 - special needs child caregiver (current) use of anticoagulants Status: Acute (6) Type 2 diabetes mellitus with hyperglycemia: Code(s): E11.65 - Type 2 diabetes mellitus with hyperglycemia Status: Acute (7) Chronic obstructive pulmonary disease: Code(s): J44.9 - Chronic obstructive pulmonary disease, unspecified Status: Acute Plan The patient presented to the emergency department for evaluation of shortness of breath with a 2 day history of increasing lower extremity edema, orthopnea, and intermittent left anterior chest tightness as detailed in HPI. Labs, imaging, EKG, and all reports were personally reviewed. Clinically he seems to have a CHF exacerbation which may be due to confusion with his medications. He has put out good urine with his 1st dose of furosemide and we will continue with diuresis with close monitoring of electrolytes, volume status, and renal function. His son is supposed to be bringing in the list of his medications to help clarify what he is and is not taking. Pending that I will restart his clopidogrel and carvedilol as I see no reason to hold them. He continues to complain of intermittent chest tightness which is likely related to the work of breathing from CHF as his EKG does not demonstrate any concerning ST segment changes and his initial troponin was well within normal limits though we will continue to trend. Blood pressures have been running high which are likely a contributing factor but the should improve with diuresis. He did not take his morning medications either. No evidence of COPD exacerbation. Diabetes is diet contr olled but his random glucose today was 197 thus will initiate sliding scale insulin, Accu-Cheks, and hypoglycemic protocol. Continue apixaban for stroke prophylaxis. The rest of his home medications will be reviewed and resumed as appropriate. Findings and treatment plan were discussed with the patient. Questions were solicited and answered to satisfaction. The patient's medical management will be taken over by the hospitalist team in a.m. Quality VTE Prophylaxis VTE prophylaxis: pharmacologic ordered (on apixaban) Hospitalist [facility] Advance Care Plan I have confirmed that the patient's Advanced Care Plan is present, code status is documented, or surrogate decision maker is listed in patient medical record.: Yes Medication Reconciliation I have utilized all available resources to obtain, update and review the patients current medications (includes all prescriptions, OTC, herbals, cannabis, and nutritional supplements).: Yes
[2024-12-13] MEDS: LOSARTAN POTASSIUM 25 MG TABLET PO (13:19)
--- NOTE | 2024-12-13 14:33 | ECG_ITS ---
Test Date: 2024-12-13 14:33:56 Measurements Intervals [place] Rate: 75 P: 24 [place]: 240 QRS: 92 QRSD: 174 T: 62 QT: 467 QTc: 524 Interpretive Statements SINUS RHYTHM WITH FIRST DEGREE AV BLOCK RIGHT AXIS DEVIATION POSSIBLE LEFT ATRIAL ENLARGEMENT LEFT BUNDLE BRANCH BLOCK BASELINE ARTIFACT- I, II, AVR, AVL, AVF, V1-V6 ABNORMAL ECG Compared to ECG 12/13/2024 08:53:48 HEART RATE HAS DECREASED Electronically Signed On 12-13-2024 15:43:16 CDT by Isaiah Burk D.O.
[2024-12-13 15:27] LABS: Troponin I 0.064 ng/mL (0.000-0.034)
[2024-12-13] MEDS: CLOPIDOGREL BISULFATE 75 MG TABLET PO (15:30)
[2024-12-13] MEDS: carvediloL 25 MG TABLET PO (16:44)
[2024-12-13 16:50] LABS: Glucose Point of Care 180 mg/dl (65-105)
[2024-12-13 18:48] LABS: Troponin I 0.065 ng/mL (0.000-0.034)
[2024-12-13 19:49] LABS: Glucose Point of Care 204 mg/dl (65-105)
[2024-12-13] MEDS: APIXABAN 5 MG TABLET PO (20:02)
[2024-12-13] MEDS: INSULIN ASPART (*BKC) 100 UNITS/ML SUB-Q (20:02)
[2024-12-13] MEDS: MELATONIN 5 MG TABLET PO (20:02)
[2024-12-13] MEDS: traZODone HCL 50 MG TABLET PO (20:02)
[2024-12-13] MEDS: busPIRone HCL 5 MG TABLET PO (20:02)
[2024-12-13 21:25] LABS: Troponin I 0.064 ng/mL (0.000-0.034)
[2024-12-14] VITALS (15 sets, daily range): BP systolic 110–196; BP diastolic 65–89; PULSE 61–86; RESP 14–20; TEMP 36.1–36.9; O2SAT 93–98
[2024-12-14 04:08] LABS: Hematocrit 37.2 % (42.0-52.0); Hemoglobin 12.1 g/dL (14.0-18.0); Mean Corpuscular HGB Conc 32.5 g/dl (32-36); Mean Corpuscular Hemoglobin 30.7 pg (26-34); Mean Corpuscular Volume 94.4 fl (80-100); Mean Platelet Volume 10.8 fl (7.4-10.4); Platelet Count Result 184 k/mm3 (150-375); Red Blood Count 3.94 M/mm3 (4.6-6.20); Red Cell Distribution Width 14.5 % (11.5-14.5); White Blood Count 9.2 K/mm3 (4.5-10.0)
[2024-12-14 04:18] LABS: Anion Gap 8 mmol/L (4-12); Blood Urea Nitrogen 19 mg/dL (9-20); Calcium 8.6 mg/dL (8.4-10.2); Carbon Dioxide 28 mmol/L (22-30); Chloride 103 mmol/L (98-107); Estimated CRCL calculation 61 ml/min; Estimated Glomerular Filt Rate > 60; Glucose 125 mg/dL (65-110); Magnesium 1.9 mg/dL (1.6-2.3); Potassium 3.5 mmol/L (3.4-5.0); Sodium 139 mmol/L (137-145)
[2024-12-14 07:39] LABS: Glucose Point of Care 132 mg/dl (65-105)
[2024-12-14] MEDS: FUROSEMIDE INJ 40 MG/4 ML VIAL IV PUSH ×2 (08:30→19:59)
[2024-12-14] MEDS: ATORVASTATIN 40 MG TABLET 80 MG PO (08:30)
[2024-12-14] MEDS: carvediloL 25 MG TABLET PO ×2 (08:30→20:00)
[2024-12-14] MEDS: POTASSIUM CHLORIDE 20 MEQ ER TABLET PO (08:31)
[2024-12-14] MEDS: PARoxetine 20 MG TABLET PO (08:31)
[2024-12-14] MEDS: busPIRone HCL 5 MG TABLET PO ×2 (08:31→20:00)
[2024-12-14] MEDS: LOSARTAN POTASSIUM 25 MG TABLET PO (08:31)
[2024-12-14] MEDS: APIXABAN 5 MG TABLET PO ×2 (08:31→20:00)
[2024-12-14] MEDS: CLOPIDOGREL BISULFATE 75 MG TABLET PO (08:31)
--- NOTE | 2024-12-14 09:36 | PM.IMPN ---
Progress Note: A&P Assessment and Plan (1) Acute exacerbation of chronic heart failure: Code(s): I50.9 - Heart failure, unspecified Status: Acute Assessment and Plan: CHF exacerbation (2) Hypertension: Code(s): I10 - Essential (primary) hypertension Status: Acute (3) Coronary artery disease: Code(s): I25.10 - Atherosclerotic heart disease of [place] coronary artery without angina pectoris Status: Acute (4) Paroxysmal atrial fibrillation: Code(s): I48.0 - Paroxysmal atrial fibrillation Status: Acute (5) Chronic anticoagulation: Code(s): Z79.01 - exterminator (current) use of anticoagulants Status: Acute (6) Type 2 diabetes mellitus with hyperglycemia: Code(s): E11.65 - Type 2 diabetes mellitus with hyperglycemia Status: Acute Assessment and Plan: [facility] Hypoglycemia protocol (7) Chronic obstructive pulmonary disease: Code(s): J44.9 - Chronic obstructive pulmonary disease, unspecified Status: Acute Plan CHF exacerbation -possibly due to medication noncompliance -pro BNP 7300 -Continue Lasix 40 mg IV BID,Losartan 25mg PO QD, Carvedilol 25mg PO BID. -monitor renal function during diuresis -Echocardiogram: performed on 12/14 LVEF is approximately 50-55%. There is dyskinesis of ventricular septum suggestive of bundle branch block. -EKG :SINUS RHYTHM WITH FIRST DEGREE AV BLOCK RIGHT AXIS DEVIATION POSSIBLE LEFT ATRIAL ENLARGEMENT LEFT BUNDLE BRANCH BLOCK -Chest x-ray :1. Interstitial and airspace opacities in bilateral mid and lower lung zones which could represent congestive heart failure related mild pulmonary edema or pneumonia. 2. Cardiomegaly. -Lipid panel, TSH, liver function test. -Optimize Tod inhibitors, beta-blockers, ARNI -Daily weights. -fluid restriction -Strict I&O's -elevate/Tod wrap legs if needed -Optimize blood pressure less than 130/80. -Fall risk assessment. CVA Previous Admission 10/17/2024: Brain MRI shows acute infarct in the left middle cerebral peduncle, Old lacunar infarct in the right basal ganglia. Continue Eliquis 10/17/2024: CTA 1. Near occlusion stenosis of the right carotid bulb with diffuse decreased caliber of the more distal right internal carotid artery. 2. 70% stenosis of the left carotid bulb relative to normal distal artery lumen diameter (NASCET criteria). 3. Age-related changes the brain with acute infarct at the left middle cerebellar peduncle. 4. Moderate stenosis at the left carotid siphon and left vertebral artery. 5. Unchanged linear filling defect within the petrous portion of the right internal carotid artery suspicious for a chronic dissection. 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 Sheth. Although furosemide and listed in the medication is inconsistent with medication history and advised the son to bring his medication bottles and we will reconcile the medication. Pertinent lab in ED:WBC count of 9.0, hemoglobin 12.7, carbon dioxide 20, BUN 21, creatinine 0.92, glucose 197, troponin 0.016, proBNP 7300. Chest x-ray showed cardiomegaly and findings manufacturer's representative congestive heart failure or pneumonia. EKG showed sinus tachycardia with first-degree AV block, right axis deviation, and left bundle-branch block which is an old finding. 12/14: Yesterday patient was given furosemide 40 mg IV x1 and started on BiPAP.Pt is unable to verify his previous hospitalizations. Currently on RA. Review of Systems Review of Systems: 12 systems were reviewed and are negative except for as per HPI. Exam Narrative: General: Mildly ill-appearing gentleman sitting up in bed in no acute distress. Weight: 104.9 kg. BMI: 31.4. HEENT: PERRL, EOMI. Sclera anicteric. Oral mucosa moist. Neck: Supple. No significant jugular venous distention. Respiratory: Mild tachypnea though he appears in no respiratory distress. Crackles heard at the bases. Cardiovascular: Regular rate and rhythm with S1-S2. Systolic murmur at the upper sternal border. Gastrointestinal: Abdomen is soft, nontender, and nondistended with positive bowel sounds. Skin: Warm and dry. Extremities: No cyanosis or clubbing. 1+ bilateral lower extremity edema. No palpable knots or cords. Negative Gia sign bilaterally. Radial and pedal pulses intact. Neurological: Alert and oriented. Cranial nerves 2-12 are grossly intact. 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 No gross focal deficits to casual conversation. Psychiatric: Pleasant and cooperative with appropriate mood and affect. Objective Data Vital Signs Vital Signs: Vital Signs - 24 hr 12/13/24 09:46 12/13/24 10:01 12/13/24 10:15 Temperature Pulse Rate 84 76 Respiratory Rate 12 12 Blood Pressure 150/74 H 145/76 H Pulse Oximetry 98 98 99 Oxygen Delivery Oxygen Flow Rate Fraction of Inspired Oxygen 12/13/24 10:16 12/13/24 10:30 12/13/24 10:31 Temperature Pulse Rate 77 Respiratory Rate 17 Blood Pressure 176/82 H 163/92 H Pulse Oximetry 99 97 98 Oxygen Delivery Oxygen Flow Rate Fraction of Inspired Oxygen 12/13/24 11:18 12/13/24 11:19 12/13/24 12:00 Temperature 98.1 F 98.1 F Pulse Rate 77 81 69 Respiratory Rate 17 21 H 14 Blood Pressure 179/90 H 159/89 H Pulse Oximetry 98 95 97 Oxygen Delivery BiPAP Oxygen Flow Rate Fraction of Inspired Oxygen 12/13/24 12:00 12/13/24 12:00 12/13/24 13:19 Temperature Pulse Rate 70 86 Respiratory Rate Blood Pressure 169/83 H Pulse Oximetry 97 Oxygen Delivery BiPAP Oxygen Flow Rate Fraction of Inspired Oxygen 30 12/13/24 14:00 12/13/24 14:34 12/13/24 16:00 Temperature 98.1 F Pulse Rate 93 74 Respiratory Rate 15 Blood Pressure 168/72 H Pulse Oximetry 96 98 Oxygen Delivery Nasal Cannula Oxygen Flow Rate 2 Fraction of Inspired Oxygen 12/13/24 16:00 12/13/24 16:00 12/13/24 16:44 Temperature Pulse Rate 75 82 Respiratory Rate Blood Pressure Pulse Oximetry 98 Oxygen Delivery Nasal Cannula Oxygen Flow Rate 2 Fraction of Inspired Oxygen 12/13/24 18:00 12/13/24 20:00 12/13/24 20:00 Temperature Pulse Rate 76 78 Respiratory Rate Blood Pressure Pulse Oximetry 94 Oxygen Delivery Nasal Cannula Oxygen Flow Rate 2 Fraction of Inspired Oxygen 12/13/24 20:00 12/13/24 20:30 12/13/24 22:00 Temperature 98.4 F Pulse Rate 76 69 Respiratory Rate 18 Blood Pressure 179/81 H Pulse Oximetry 97 95 Oxygen Delivery Nasal Cannula Oxygen Flow Rate 2 Fraction of Inspired Oxygen 12/14/24 00:00 12/14/24 00:00 12/14/24 00:00 Temperature 98.1 F Pulse Rate 86 84 Respiratory Rate 16 Blood Pressure 153/80 H Pulse Oximetry 94 93 Oxygen Delivery Nasal Cannula Oxygen Flow Rate 2 Fraction of Inspired Oxygen 12/14/24 02:00 12/14/24 04:00 12/14/24 04:00 Temperature 97.9 F Pulse Rate 73 77 Respiratory Rate 15 Blood Pressure 173/89 H Pulse Oximetry 97 97 Oxygen Delivery Nasal Cannula Oxygen Flow Rate 2 Fraction of Inspired Oxygen 12/14/24 04:00 12/14/24 06:00 12/14/24 07:46 Temperature 98.3 F Pulse Rate 79 71 86 Respiratory Rate 18 Blood Pressure 196/89 H Pulse Oximetry 95 Oxygen Delivery Oxygen Flow Rate Fraction of Inspired Oxygen 12/14/24 08:30 Temperature Pulse Rate 83 Respiratory Rate Blood Pressure Pulse Oximetry Oxygen Delivery Oxygen Flow Rate Fraction of Inspired Oxygen Intake/Output Intake/Output: Intake & Output 12/11/24 12/12/24 12/13/24 12/14/24 23:59 23:59 23:59 23:59 Intake Total 720 740 Output Total 3600 1100 Balance -2880 -360 Meds/Results Medications: Active Medications Generic Name Dose Route Start Last Admin Trade Name Freq PRN Reason Stop Dose Admin Acetaminophen 650 mg 12/13/24 13:06 Acetaminophen 325 Mg Tablet PO Q6H PRN Mild Pain (1-3) or Fever Albuterol 1 puff 12/13/24 12:58 Albuterol Sulfate (*Sp) Aerosol 1 Puff INHALATION Q4HRT PRN Shortness Of Breath Or Wheezing Apixaban 5 mg 12/13/24 21:00 12/14/24 08:31 Apixaban 5 Mg Tablet PO 5 mg Q12HR THOM[facility]ON Administration Atorvastatin Calcium 80 mg 12/14/24 09:00 12/14/24 08:30 Atorvastatin 40 Mg Tablet PO 80 mg DAILY THOM[facility]ON Administration Buspirone HCl 5 mg 12/13/24 21:00 12/14/24 08:31 Buspirone Hcl 5 Mg Tablet PO 5 mg Q12HR THOM[facility]ON Administration Carvedilol 25 mg 12/14/24 09:00 12/14/24 08:30 Carvedilol 25 Mg Tablet PO 25 mg Q12HR THOM[facility]ON Administration Clopidogrel Bisulfate 75 mg 12/13/24 14:45 12/14/24 08:31 Clopidogrel Bisulfate 75 Mg Tablet PO 75 mg QAM TH[facility]ON Administration Dextrose 12.5 gm 12/13/24 13:04 Dextrose 50% 25 Gm/50 Ml Syringe IV PUSH PRN PRN Hypoglycemia Protocol Furosemide 40 mg 12/13/24 21:00 12/14/24 08:30 Furosemide Inj 40 Mg/4 Ml Vial IV PUSH 40 mg Q12HR TH[facility]ON Administration Glucagon 1 mg 12/13/24 13:04 Glucagon For Inj 1 Mg Vial IM PRN PRN Hypoglycemia Protocol Glucose 15 gm 12/13/24 13:04 Glucose Oral Gel 15 Gm Of Glucse In 37.5 Gm Tube PO PRN PRN Hypoglycemia Protocol Dextrose 1,000 mls @ 100 mls/hr 12/13/24 13:04 Dextrose 5% 1,000 Ml IVPB PRN PRN Hypoglycemia Protocol Insulin Aspart 1 - 3 units 12/13/24 21:00 12/13/24 20:02 Insulin Aspart (*Bkc) 100 Units/Ml SUB-Q 1 units HS THOMPSON Administration Protocol Insulin Aspart 3 - 6 units 12/13/24 17:00 12/14/24 08:30 Insulin Aspart (*Bkc) 100 Units/Ml SUB-Q Not Given TIDWM TH[facility] Protocol Losartan Potassium 25 mg 12/14/24 09:00 12/14/24 08:31 Losartan Potassium 25 Mg Tablet PO 25 mg DAILY TH[facility]ON Administration Melatonin 5 mg 12/13/24 21:00 12/13/24 20:02 Melatonin 5 Mg Tablet PO 5 mg HS TH[facility]ON Administration Paroxetine HCl 20 mg 12/14/24 09:00 12/14/24 08:31 Paroxetine 20 Mg Tablet PO 20 mg QAM TH[facility]ON Administration Potassium Chloride 20 meq 12/14/24 09:00 12/14/24 08:31 Potassium Chloride 20 Meq Er Tablet PO 20 meq DAILY THOM[facility]ON Administration Trazodone HCl 50 mg 12/13/24 21:00 12/13/24 20:02 Trazodone Hcl 50 Mg Tablet PO 50 mg HS THOMPSON Administration Radiology Results: ITS Impressions Chest X-Ray 12/13/24 09:02 IMPRESSION: 1. Interstitial and airspace opacities in bilateral mid and lower lung zones which could represent congestive heart failure related mild pulmonary edema or pneumonia. 2. Cardiomegaly. Labs Labs: Laboratory Results - last 24 hr 12/13/24 12/13/24 12/13/24 09:07 14:55 16:36 WBC RBC Hgb Hct MCV MCH MCHC RDW Plt Count MPV Sodium Potassium Chloride Carbon Dioxide Anion Gap BUN Creatinine Estim Creat Clear Calc Estimated GFR Glucose POC Capillary Glucose 180 H Calcium Magnesium Troponin I 0.016 0.064 H* D NT-Pro-B Natriuret Pep 7300 H Influenza A (RT-PCR) Negative Influenza B (RT-PCR) Negative RSV (RT-PCR) Negative SARS-CoV-2 RNA (RT-PCR) Negative 12/13/24 12/13/24 12/13/24 18:13 19:46 20:55 WBC RBC Hgb Hct MCV MCH MCHC RDW Plt Count MPV Sodium Potassium Chloride Carbon Dioxide Anion Gap BUN Creatinine Estim Creat Clear Calc Estimated GFR Glucose POC Capillary Glucose 204 H Calcium Magnesium Troponin I 0.065 H* 0.064 H* NT-Pro-B Natriuret Pep Influenza A (RT-PCR) Influenza B (RT-PCR) RSV (RT-PCR) SARS-CoV-2 RNA (RT-PCR) 12/14/24 12/14/24 03:48 07:14 WBC 9.2 RBC 3.94 L Hgb 12.1 L Hct 37.2 L MCV 94.4 MCH 30.7 MCHC 32.5 RDW 14.5 Plt Count 184 MPV 10.8 H Sodium 139 Potassium 3.5 Chloride 103 Carbon Dioxide 28 Anion Gap 8 BUN 19 Creatinine 0.96 Estim Creat Clear Calc 61 Estimated GFR > 60 Glucose 125 H POC Capillary Glucose 132 H Calcium 8.6 Magnesium 1.9 Troponin I NT-Pro-B Natriuret Pep Influenza A (RT-PCR) Influenza B (RT-PCR) RSV (RT-PCR) SARS-CoV-2 RNA (RT-PCR) Hospitalist MIPS Advance Care Plan I have confirmed that the patient's Advanced Care Plan is present, code status is documented, or surrogate decision maker is listed in patient medical record.: Yes Medication Reconciliation I have utilized all available resources to obtain, update and review the patients current medications (includes all prescriptions, OTC, herbals, cannabis, and nutritional supplements).: Yes
[2024-12-14 11:56] LABS: Glucose Point of Care 226 mg/dl (65-105)
[2024-12-14] MEDS: INSULIN ASPART (*BKC) 100 UNITS/ML SUB-Q ×2 (11:58→20:00)
--- NOTE | 2024-12-14 14:46 | PC.NURSE ---
Report given to TIM Akhtar. All questions answered and plan of care reviewed. Patient transferred to 2nd medical room 245. All belongings brought with patient to receiving room. Patient oriented to room and call light within reach.
[2024-12-14 16:54] LABS: Glucose Point of Care 120 mg/dl (65-105)
[2024-12-14] MEDS: traZODone HCL 50 MG TABLET PO (20:00)
[2024-12-14] MEDS: MELATONIN 5 MG TABLET PO (20:00)
[2024-12-14 20:27] LABS: Glucose Point of Care 205 mg/dl (65-105)
[2024-12-15] VITALS: BP 140/48; PULSE 68; PULSE 75; RESP 17; TEMP 36.6; O2SAT 96
[2024-12-15 03:43] VITALS: PULSE 70; RESP 16
[2024-12-15] MEDS: ALBUTEROL SULFATE (*SP) AEROSOL 1 PUFF INHALATION (03:43)
[2024-12-15 03:44] VITALS: BP 147/62; PULSE 70; RESP 18; TEMP 36.9; O2SAT 95
[2024-12-15 04:00] VITALS: PULSE 70
[2024-12-15 05:34] LABS: Hematocrit 34.7 % (42.0-52.0); Hemoglobin 11.4 g/dL (14.0-18.0); Mean Corpuscular HGB Conc 32.9 g/dl (32-36); Mean Corpuscular Hemoglobin 31.1 pg (26-34); Mean Corpuscular Volume 94.6 fl (80-100); Mean Platelet Volume 11.3 fl (7.4-10.4); Platelet Count Result 167 k/mm3 (150-375); Red Blood Count 3.67 M/mm3 (4.6-6.20); Red Cell Distribution Width 14.6 % (11.5-14.5); White Blood Count 7.7 K/mm3 (4.5-10.0)
[2024-12-15 05:52] LABS: Alanine Aminotransferase 17 U/L (6-50); Albumin Level 3.6 g/dL (3.5-5.1); Alkaline Phosphatase 61 U/L (38-126); Anion Gap 6 mmol/L (4-12); Aspartate Amino Transferase 21 U/L (17-59); Bilirubin,Total 0.8 mg/dL (0.2-1.3); Blood Urea Nitrogen 19 mg/dL (9-20); Calcium 8.3 mg/dL (8.4-10.2); Carbon Dioxide 31 mmol/L (22-30); Chloride 101 mmol/L (98-107); Estimated CRCL calculation 62 ml/min; Estimated Glomerular Filt Rate > 60; Glucose 128 mg/dL (65-110); Potassium 3.4 mmol/L (3.4-5.0); Sodium 138 mmol/L (137-145)
[2024-12-15 08:00] LABS: Glucose Point of Care 144 mg/dl (65-105)
[2024-12-15 08:28] VITALS: PULSE 76; PULSE 81; RESP 18; O2SAT 95
[2024-12-15] MEDS: APIXABAN 5 MG TABLET PO (08:28)
[2024-12-15] MEDS: CLOPIDOGREL BISULFATE 75 MG TABLET PO (08:28)
[2024-12-15] MEDS: PARoxetine 20 MG TABLET PO (08:28)
[2024-12-15] MEDS: carvediloL 25 MG TABLET PO (08:28)
[2024-12-15] MEDS: busPIRone HCL 5 MG TABLET PO (08:28)
[2024-12-15] MEDS: LOSARTAN POTASSIUM 25 MG TABLET PO (08:28)
[2024-12-15] MEDS: POTASSIUM CHLORIDE 20 MEQ ER TABLET PO (08:28)
[2024-12-15] MEDS: ATORVASTATIN 40 MG TABLET 80 MG PO (08:29)
[2024-12-15] MEDS: FUROSEMIDE INJ 40 MG/4 ML VIAL IV PUSH (08:32)
--- NOTE | 2024-12-15 08:43 | P.CDI_ITS ---
CDI Query Clarification Request CHF has been documented Please specify type of heart failure if known. * Systolic * Diastolic * Combined Systolic and Diastolic * Unknown Plan CHF exacerbation -possibly due to medication noncompliance -pro BNP 7300 -Continue Lasix 40 mg IV BID,Losartan 25mg PO QD, Carvedilol 25mg PO BID. -monitor renal function during diuresis -Echocardiogram: performed on 12/14 LVEF is approximately 50-55%. There is dyskinesis of ventricular septum suggestive of bundle branch block. -EKG :SINUS RHYTHM WITH FIRST DEGREE AV BLOCK RIGHT AXIS DEVIATION POSSIBLE LEFT ATRIAL ENLARGEMENT LEFT BUNDLE BRANCH BLOCK -Chest x-ray :1. Interstitial and airspace opacities in bilateral mid and lower lung zones which could represent congestive heart failure related mild pulmonary edema or pneumonia. 2. Cardiomegaly. -Lipid panel, TSH, liver function test. -Optimize Tod inhibitors, beta-blockers, ARNI -Daily weights. -fluid restriction -Strict I&O's -elevate/Tod wrap legs if needed -Optimize blood pressure less than 130/80. -Fall risk assessment. <Ny Alanis RN - Last Filed: 12/15/24 08:44> Clarified Diagnosis Clarified Diagnosis: Unknown <Jame Waters MD - Last Filed: 12/15/24 10:40>
--- NOTE | 2024-12-15 10:40 | PM.IMPN ---
Progress Note: A&P Assessment and Plan (1) Acute exacerbation of chronic heart failure: Code(s): I50.9 - Heart failure, unspecified Status: Acute Assessment and Plan: CHF exacerbation (2) Hypertension: Code(s): I10 - Essential (primary) hypertension Status: Acute (3) Coronary artery disease: Code(s): I25.10 - Atherosclerotic heart disease of [place] coronary artery without angina pectoris Status: Acute (4) Paroxysmal atrial fibrillation: Code(s): I48.0 - Paroxysmal atrial fibrillation Status: Acute (5) Chronic anticoagulation: Code(s): Z79.01 - long term care pharmacist (current) use of anticoagulants Status: Acute (6) Type 2 diabetes mellitus with hyperglycemia: Code(s): E11.65 - Type 2 diabetes mellitus with hyperglycemia Status: Acute Assessment and Plan: [facility] Hypoglycemia protocol (7) Chronic obstructive pulmonary disease: Code(s): J44.9 - Chronic obstructive pulmonary disease, unspecified Status: Acute Plan CHF exacerbation -possibly due to medication noncompliance -pro BNP 7300 -Continue Lasix 40 mg IV BID,Losartan 25mg PO QD, Carvedilol 25mg PO BID. -monitor renal function during diuresis -Echocardiogram: performed on 12/14 LVEF is approximately 50-55%. There is dyskinesis of ventricular septum suggestive of bundle branch block. -EKG :SINUS RHYTHM WITH FIRST DEGREE AV BLOCK RIGHT AXIS DEVIATION POSSIBLE LEFT ATRIAL ENLARGEMENT LEFT BUNDLE BRANCH BLOCK -Chest x-ray :1. Interstitial and airspace opacities in bilateral mid and lower lung zones which could represent congestive heart failure related mild pulmonary edema or pneumonia. 2. Cardiomegaly. -Lipid panel, TSH, liver function test. -Optimize Tod inhibitors, beta-blockers, ARNI -Daily weights. -fluid restriction -Strict I&O's -elevate/Tod wrap legs if needed -Optimize blood pressure less than 130/80. -Fall risk assessment. CVA Previous Admission 10/17/2024: Brain MRI shows acute infarct in the left middle cerebral peduncle, Old lacunar infarct in the right basal ganglia. Continue Eliquis 10/17/2024: CTA 1. Near occlusion stenosis of the right carotid bulb with diffuse decreased caliber of the more distal right internal carotid artery. 2. 70% stenosis of the left carotid bulb relative to normal distal artery lumen diameter (NASCET criteria). 3. Age-related changes the brain with acute infarct at the left middle cerebellar peduncle. 4. Moderate stenosis at the left carotid siphon and left vertebral artery. 5. Unchanged linear filling defect within the petrous portion of the right internal carotid artery suspicious for a chronic dissection. 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 He sees document management analyst, Dr. Sheth. Although furosemide and listed in the medication is inconsistent with medication history and advised the son to bring his medication bottles and we will reconcile the medication. Pertinent lab in ED:WBC count of 9.0, hemoglobin 12.7, carbon dioxide 20, BUN 21, creatinine 0.92, glucose 197, troponin 0.016, proBNP 7300. 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 EKG showed sinus tachycardia with first-degree AV block, right axis deviation, and left bundle-branch block which is an old finding. 12/14: Yesterday patient was given furosemide 40 mg IV x1 and started on BiPAP.Pt is unable to verify his previous hospitalizations. Currently on RA. Review of Systems Review of Systems: 12 systems were reviewed and are negative except for as per HPI. Exam Narrative: General: Mildly ill-appearing gentleman sitting up in bed in no acute distress. Weight: 104.9 kg. BMI: 31.4. HEENT: PERRL, EOMI. Sclera anicteric. Oral mucosa moist. Neck: Supple. No significant jugular venous distention. Respiratory: Mild tachypnea though he appears in no respiratory distress. Crackles heard at the bases. Cardiovascular: Regular rate and rhythm with S1-S2. Systolic murmur at the upper sternal border. Gastrointestinal: Abdomen is soft, nontender, and nondistended with positive bowel sounds. Skin: Warm and dry. Extremities: No cyanosis or clubbing. 1+ bilateral lower extremity edema. No palpable knots or cords. Negative Gia sign bilaterally. Radial and pedal pulses intact. Neurological: Alert and oriented. Cranial nerves 2-12 are grossly intact. 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 No gross focal deficits to casual conversation. Psychiatric: Pleasant and cooperative with appropriate mood and affect. Objective Data Vital Signs Vital Signs: Vital Signs - 24 hr 12/14/24 12:00 12/14/24 12:00 12/14/24 12:00 Temperature 98.5 F Pulse Rate 74 73 Respiratory Rate 20 Blood Pressure 152/86 H Pulse Oximetry 97 97 Oxygen Delivery Room Air Fraction of Inspired Oxygen 12/14/24 14:00 12/14/24 15:12 12/14/24 16:00 Temperature 96.9 F L Pulse Rate 78 77 77 Respiratory Rate 18 Blood Pressure 145/79 H Pulse Oximetry 97 Oxygen Delivery Fraction of Inspired Oxygen 12/14/24 19:49 12/14/24 20:00 12/14/24 20:00 Temperature 97.9 F Pulse Rate 78 78 Respiratory Rate 18 Blood Pressure 176/78 H Pulse Oximetry 97 Oxygen Delivery Room Air Fraction of Inspired Oxygen 12/14/24 20:00 12/14/24 23:45 12/15/24 00:00 Temperature Pulse Rate 81 61 68 Respiratory Rate Blood Pressure Pulse Oximetry 96 Oxygen Delivery Room Air Fraction of Inspired Oxygen 12/15/24 00:00 12/15/24 03:43 12/15/24 03:44 Temperature 97.8 F 98.4 F Pulse Rate 75 70 70 Respiratory Rate 17 16 18 Blood Pressure 140/48 L 147/62 H Pulse Oximetry 96 95 Oxygen Delivery Fraction of Inspired Oxygen 12/15/24 04:00 12/15/24 08:28 12/15/24 08:28 Temperature Pulse Rate 70 81 81 Respiratory Rate 18 Blood Pressure Pulse Oximetry 95 Oxygen Delivery Room Air Fraction of Inspired Oxygen 30 12/15/24 08:28 Temperature Pulse Rate 81 Respiratory Rate Blood Pressure Pulse Oximetry Oxygen Delivery Fraction of Inspired Oxygen Intake/Output Intake/Output: Intake & Output 12/12/24 12/13/24 12/14/24 12/15/24 23:59 23:59 23:59 23:59 Intake Total 720 1370 550 Output Total 3600 2400 500 Balance -2880 -1030 50 Meds/Results Medications: Active Medications Generic Name Dose Route Start Last Admin Trade Name Freq PRN Reason Stop Dose Admin Acetaminophen 650 mg 12/13/24 13:06 Acetaminophen 325 Mg Tablet PO Q6H PRN Mild Pain (1-3) or Fever Albuterol 1 puff 12/13/24 12:58 12/15/24 03:43 Albuterol Sulfate (*Sp) Aerosol 1 Puff INHALATION 1 puff Q4HRT PRN Administration Shortness Of Breath Or Wheezing Apixaban 5 mg 12/13/24 21:00 12/15/24 08:28 Apixaban 5 Mg Tablet PO 5 mg Q12HR THOM[facility]ON Administration Atorvastatin Calcium 80 mg 12/14/24 09:00 12/15/24 08:29 Atorvastatin 40 Mg Tablet PO 80 mg DAILY TH[facility]ON Administration Buspirone HCl 5 mg 12/13/24 21:00 12/15/24 08:28 Buspirone Hcl 5 Mg Tablet PO 5 mg Q12HR TH[facility]ON Administration Carvedilol 25 mg 12/14/24 09:00 12/15/24 08:28 Carvedilol 25 Mg Tablet PO 25 mg Q12HR TH[facility]ON Administration Clopidogrel Bisulfate 75 mg 12/13/24 14:45 12/15/24 08:28 Clopidogrel Bisulfate 75 Mg Tablet PO 75 mg QAM THOM[facility]ON Administration Dextrose 12.5 gm 12/13/24 13:04 Dextrose 50% 25 Gm/50 Ml Syringe IV PUSH PRN PRN Hypoglycemia Protocol Furosemide 40 mg 12/13/24 21:00 12/15/24 08:32 Furosemide Inj 40 Mg/4 Ml Vial IV PUSH 40 mg Q12HR THOMPSON Administration Glucagon 1 mg 12/13/24 13:04 Glucagon For Inj 1 Mg Vial IM PRN PRN Hypoglycemia Protocol Glucose 15 gm 12/13/24 13:04 Glucose Oral Gel 15 Gm Of Glucse In 37.5 Gm Tube PO PRN PRN Hypoglycemia Protocol Dextrose 1,000 mls @ 100 mls/hr 12/13/24 13:04 Dextrose 5% 1,000 Ml IVPB PRN PRN Hypoglycemia Protocol Insulin Aspart 1 - 3 units 12/13/24 21:00 12/14/24 20:00 Insulin Aspart (*Bkc) 100 Units/Ml SUB-Q 1 units HS THOMPSON Administration Protocol Insulin Aspart 3 - 6 units 12/13/24 17:00 12/15/24 08:29 Insulin Aspart (*Bkc) 100 Units/Ml SUB-Q Not Given TIDWM [facility] Protocol Losartan Potassium 25 mg 12/14/24 09:00 12/15/24 08:28 Losartan Potassium 25 Mg Tablet PO 25 mg DAILY TH[facility]ON Administration Melatonin 5 mg 12/13/24 21:00 12/14/24 20:00 Melatonin 5 Mg Tablet PO 5 mg HS THOMPSON Administration Paroxetine HCl 20 mg 12/14/24 09:00 12/15/24 08:28 Paroxetine 20 Mg Tablet PO 20 mg QAM THOM[facility]ON Administration Potassium Chloride 20 meq 12/14/24 09:00 12/15/24 08:28 Potassium Chloride 20 Meq Er Tablet PO 20 meq DAILY THOMPSON Administration Trazodone HCl 50 mg 12/13/24 21:00 12/14/24 20:00 Trazodone Hcl 50 Mg Tablet PO 50 mg HS THOMPSON Administration Radiology Results: ITS Impressions Chest X-Ray 12/13/24 09:02 IMPRESSION: 1. Interstitial and airspace opacities in bilateral mid and lower lung zones which could represent congestive heart failure related mild pulmonary edema or pneumonia. 2. Cardiomegaly. Labs Labs: Laboratory Results - last 24 hr 12/14/24 12/14/24 12/14/24 11:53 16:51 19:42 WBC RBC Hgb Hct MCV MCH MCHC RDW Plt Count MPV Sodium Potassium Chloride Carbon Dioxide Anion Gap BUN Creatinine Estim Creat Clear Calc Estimated GFR Glucose POC Capillary Glucose 226 H 120 H 205 H Calcium Total Bilirubin AST ALT Alkaline Phosphatase Total Protein Albumin 12/15/24 12/15/24 05:12 07:51 WBC 7.7 RBC 3.67 L Hgb 11.4 L Hct 34.7 L MCV 94.6 MCH 31.1 MCHC 32.9 RDW 14.6 H Plt Count 167 MPV 11.3 H Sodium 138 Potassium 3.4 Chloride 101 Carbon Dioxide 31 H Anion Gap 6 BUN 19 Creatinine 0.94 Estim Creat Clear Calc 62 Estimated GFR > 60 Glucose 128 H POC Capillary Glucose 144 H Calcium 8.3 L Total Bilirubin 0.8 AST 21 ALT 17 Alkaline Phosphatase 61 Total Protein 6.0 L Albumin 3.6 Quality VTE Prophylaxis VTE prophylaxis: pharmacologic ordered (on apixaban)
[2024-12-15 11:17] LABS: NT Pro B Type Natriuretic Pept 5180 pg/mL (19.9-100)
[2024-12-15 11:56] LABS: Glucose Point of Care 160 mg/dl (65-105)
[2024-12-15 12:00] VITALS: BP 157/73; PULSE 73; PULSE 76; RESP 18; TEMP 36.3; O2SAT 98
--- NOTE | 2024-12-15 14:17 | PM.DS ---
DS: Admitting Diagnosis Discharge Date 12/15/2024 Admitting Diagnosis Shortness of breath DS: Discharge Diagnosis Discharge Diagnosis (1) Acute exacerbation of chronic heart failure: Code(s): I50.9 - Heart failure, unspecified Status: Acute Assessment and Plan: CHF exacerbation (2) Hypertension: Code(s): I10 - Essential (primary) hypertension Status: Acute (3) Coronary artery disease: Code(s): I25.10 - Atherosclerotic heart disease of [place] coronary artery without angina pectoris Status: Acute (4) Paroxysmal atrial fibrillation: Code(s): I48.0 - Paroxysmal atrial fibrillation Status: Acute (5) Chronic anticoagulation: Code(s): Z79.01 - halfway (current) use of anticoagulants Status: Acute (6) Type 2 diabetes mellitus with hyperglycemia: Code(s): E11.65 - Type 2 diabetes mellitus with hyperglycemia Status: Acute Assessment and Plan: [facility] Hypoglycemia protocol (7) Chronic obstructive pulmonary disease: Code(s): J44.9 - Chronic obstructive pulmonary disease, unspecified Status: Acute Plan Patient is high risk for readmission due to medication noncompliance CHF exacerbation -possibly due to medication noncompliance -pro BNP 7300 -Continue Lasix 40 mg IV BID,Losartan 25mg PO QD, Carvedilol 25mg PO BID. -monitor renal function during diuresis -Echocardiogram: performed on 12/14 LVEF is approximately 50-55%. There is dyskinesis of ventricular septum suggestive of bundle branch block. -EKG :SINUS RHYTHM WITH FIRST DEGREE AV BLOCK RIGHT AXIS DEVIATION POSSIBLE LEFT ATRIAL ENLARGEMENT LEFT BUNDLE BRANCH BLOCK -Chest x-ray :1. Interstitial and airspace opacities in bilateral mid and lower lung zones which could represent congestive heart failure related mild pulmonary edema or pneumonia. 2. Cardiomegaly. -Lipid panel, TSH, liver function test. -Optimize Tod inhibitors, beta-blockers, ARNI -Daily weights. -fluid restriction -Strict I&O's -elevate/Tod wrap legs if needed -Optimize blood pressure less than 130/80. -Fall risk assessment. CVA Previous Admission 10/17/2024: Brain MRI shows acute infarct in the left middle cerebral peduncle, Old lacunar infarct in the right basal ganglia. Continue Eliquis 10/17/2024: CTA 1. Near occlusion stenosis of the right carotid bulb with diffuse decreased caliber of the more distal right internal carotid artery. 2. 70% stenosis of the left carotid bulb relative to normal distal artery lumen diameter (NASCET criteria). 3. Age-related changes the brain with acute infarct at the left middle cerebellar peduncle. 4. Moderate stenosis at the left carotid siphon and left vertebral artery. 5. Unchanged linear filling defect within the petrous portion of the right internal carotid artery suspicious for a chronic dissection. 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 Sheth. Although furosemide and listed in the medication is inconsistent with medication history and advised the son to bring his medication bottles and we will reconcile the medication. Pertinent lab in ED:WBC count of 9.0, hemoglobin 12.7, carbon dioxide 20, BUN 21, creatinine 0.92, glucose 197, troponin 0.016, proBNP 7300. 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 EKG showed sinus tachycardia with first-degree AV block, right axis deviation, and left bundle-branch block which is an old finding. 12/15/2024: As mentioned previously patient is not able to verify his medications and noncompliant with his medications as well. Patient wants to leave the hospital today. He endorse will take his medications regularly. Advised him to closely follow up with his Cardiology and Neurology. During the aspiration he was treated for the following conditions: CHF exacerbation -possibly due to medication noncompliance -pro BNP 7300 -Continue Lasix 40 mg IV BID,Losartan 25mg PO QD, Carvedilol 25mg PO BID. -monitor renal function during diuresis -Echocardiogram: performed on 12/14 LVEF is approximately 50-55%. There is dyskinesis of ventricular septum suggestive of bundle branch block. -EKG :SINUS RHYTHM WITH FIRST DEGREE AV BLOCK RIGHT AXIS DEVIATION POSSIBLE LEFT ATRIAL ENLARGEMENT LEFT BUNDLE BRANCH BLOCK -Chest x-ray :1. Interstitial and airspace opacities in bilateral mid and lower lung zones which could represent congestive heart failure related mild pulmonary edema or pneumonia. 2. Cardiomegaly. -Lipid panel, TSH, liver function test. -Optimize Tod inhibitors, beta-blockers, ARNI -Daily weights. -fluid restriction -Strict I&O's -elevate/Tod wrap legs if needed -Optimize blood pressure less than 130/80. -Fall risk assessment. CVA Previous Admission 10/17/2024: Brain MRI shows acute infarct in the left middle cerebral peduncle, Old lacunar infarct in the right basal ganglia. Continue Eliquis 10/17/2024: CTA 1. Near occlusion stenosis of the right carotid bulb with diffuse decreased caliber of the more distal right internal carotid artery. 2. 70% stenosis of the left carotid bulb relative to normal distal artery lumen diameter (NASCET criteria). 3. Age-related changes the brain with acute infarct at the left middle cerebellar peduncle. 4. Moderate stenosis at the left carotid siphon and left vertebral artery. 5. Unchanged linear filling defect within the petrous portion of the right internal carotid artery suspicious for a chronic dissection. No acute intervention from Neurology and vascular surgery Advised to follow-up with Patient is high risk for readmission due to medication noncompliance Status at Discharge Cognitive/behavioral status at discharge: Stable Time Spent with Patient Time attestation: Total time spent providing and/or coordinating discharge services: 45 minute Exam Narrative: General: Mildly ill-appearing gentleman sitting up in bed in no acute distress. Weight: 104.9 kg. BMI: 31.4. HEENT: PERRL, EOMI. Sclera anicteric. Oral mucosa moist. Neck: Supple. No significant jugular venous distention. Respiratory: Mild tachypnea though he appears in no respiratory distress. Crackles heard at the bases. Cardiovascular: Regular rate and rhythm with S1-S2. Systolic murmur at the upper sternal border. Gastrointestinal: Abdomen is soft, nontender, and nondistended with positive bowel sounds. Skin: Warm and dry. Extremities: No cyanosis or clubbing. 1+ bilateral lower extremity edema. No palpable knots or cords. Negative Gia sign bilaterally. Radial and pedal pulses intact. Neurological: Alert and oriented. Cranial nerves 2-12 are grossly intact. 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 No gross focal deficits to casual conversation. Psychiatric: Pleasant and cooperative with appropriate mood and affect. DS: Data Data Completed and Pending Labs on day of discharge: Labs from last 24 hours 12/15/24 12/15/24 12/15/24 11:52 07:51 05:12 WBC 7.7 RBC 3.67 L Hgb 11.4 L Hct 34.7 L MCV 94.6 MCH 31.1 MCHC 32.9 RDW 14.6 H Plt Count 167 MPV 11.3 H Sodium 138 Potassium 3.4 Chloride 101 Carbon Dioxide 31 H Anion Gap 6 BUN 19 Creatinine 0.94 Estim Creat Clear Calc 62 Estimated GFR > 60 Glucose 128 H POC Capillary Glucose 160 H 144 H Calcium 8.3 L Total Bilirubin 0.8 AST 21 ALT 17 Alkaline Phosphatase 61 NT-Pro-B Natriuret Pep 5180 H Total Protein 6.0 L Albumin 3.6 12/14/24 12/14/24 19:42 16:51 WBC RBC Hgb Hct MCV MCH MCHC RDW Plt Count MPV Sodium Potassium Chloride Carbon Dioxide Anion Gap BUN Creatinine Estim Creat Clear Calc Estimated GFR Glucose POC Capillary Glucose 205 H 120 H Calcium Total Bilirubin AST ALT Alkaline Phosphatase NT-Pro-B Natriuret Pep Total Protein Albumin Imaging Radiologist's impression: ITS Impressions Chest X-Ray 12/13/24 09:02 IMPRESSION: 1. Interstitial and airspace opacities in bilateral mid and lower lung zones which could represent congestive heart failure related mild pulmonary edema or pneumonia. 2. Cardiomegaly. Discharge Plan Discharge Attending physician on discharge: Jame Waters Discharging Clinician: Jame Waters Anticipated Discharge Date/Time: 12/15/24 14:21 Patient Disposition: Home Activity: as tolerated Diet: heart healthy Discharge Instructions: Check blood pressure 1 to 2 times a day. Record and bring into your doctor for review. Call your doctor if your blood pressure is greater than 180/110 or less than 90/45. Walk with cane or other assist device. Take precautions to avoid falls. Rise slowly from a lying or sitting position. Pause before standing or walking. Contact your doctor or call 911 and come to the Emergency Room if you have any type of trauma, lightheadedness with standing or other worrisome symptoms. Avoid NSAIDs (ibuprofen, naproxen, Aleve). Tylenol is safe to take. Follow-up with your primary care provider in 1-2 weeks. Please call for appointment. Follow-up with Cardiology in 2-4 weeks. Please call for an appointment. Thank you for using [facility] for your health care needs. Patient Instructions: Antibiotic Form, Apixaban (By mouth), Heart Failure (GEN) Patient Language: Maltese Stand Alone Forms: General Discharge Information Follow-up/Referrals: Barry Ralph MD [Primary Care Provider] - Melissa Bryant MD [Physician] - Discharge Medications: Continued (DME) lancets 30 gauge misc See Rx Instructions .Route Rx Instructions: As directed albuterol sulfate 90 mcg/actuation HFA aerosol inhaler 1 inh inhalation Q4H PRN (Reason: Shortness Of Breath Or Wheezing) furosemide 40 mg tablet 40 mg PO BID Qty: 90 3RF apixaban 5 mg tablet 5 mg PO BID Qty: 60 0RF atorvastatin 80 mg tablet 80 mg PO DAILY Qty: 30 0RF paroxetine HCl 20 mg tablet 20 mg PO QAM Qty: 90 1RF clopidogrel [Plavix] 75 mg tablet 75 mg PO DAILY Qty: 90 0RF carvedilol 25 mg tablet 25 mg PO BID Qty: 180 3RF buspirone 5 mg Tablet 5 mg PO Q12HR Qty: 60 0RF simvastatin 20 mg tablet 20 mg PO QPM trazodone 50 mg Tablet 50 mg PO HS (DME) blood-glucose meter [Accu-Chek Guide Glucose Meter] [facility] See Rx Instructions .Route Qty: 1 3RF Rx Instructions: Check Blood Glucose 1xday As directed (DME) Accu-Chek Guide test strips Strip See Rx Instructions .Route Qty: 100 3RF Rx Instructions: Check blood glucose 1xday As directed methocarbamol 500 mg tablet 500 mg PO BID PRN (Reason: MUSCLE SPASM) Qty: 10 0RF potassium chloride [K-Tab] 20 mEq tablet extended release 20 meq PO DAILY Qty: 30 0RF melatonin 5 mg tablet 5 mg PO HS Qty: 90 1RF losartan 25 mg tablet 25 mg PO DAILY Qty: 30 1RF Date of admission: 12/13/24 11:52 Primary Care Provider: Barry Ralph Admitting Provider: Lalo Nunez Attending physician on admission: Lalo Nunez Condition: Serious
== END 2024-12-15 14:57 | disposition home or self-care (01) | DRG 291 ==
LOC: ANHED 09:00 → ANHICU 10:36 → ANH2MED 12-15 14:13 → ANHICU 12-17 14:33
PROVIDERS: Physician Assistant; Admitting Provider Internal Medicine; Emergency Provider Emergency Medicine; PCP Family Medicine; Visit Provider General Practice
DX: I11.0 Hypertensive heart disease with heart failure (principal); I50.33 Acute on chronic diastolic (congestive) heart failure; I48.20 Chronic atrial fibrillation, unspecified; I25.10 Atherosclerotic heart disease of native coronary artery without angina pectoris; I65.21 Occlusion and stenosis of right carotid artery; J44.9 Chronic obstructive pulmonary disease, unspecified; E78.5 Hyperlipidemia, unspecified; E11.9 Type 2 diabetes mellitus without complications; Z20.822 Contact with and (suspected) exposure to COVID-19; Z86.73 Personal history of transient ischemic attack (TIA), and cerebral infarction without residual deficits; Z79.01 Long term (current) use of anticoagulants; Z95.2 Presence of prosthetic heart valve; Z95.5 Presence of coronary angioplasty implant and graft; Z79.02 Long term (current) use of antithrombotics/antiplatelets
CPT/HCPCS: 36415; 71045; 80048; 80053; 82948; 83735; 83880; 84484; 85025; 85027; 85610; 85730; 87637; 93005; 94002; 94640; 96374; 99285; A9270; G0378; J1815; J1938

== ENCOUNTER 2025-02-17 12:48 | Outpatient (RCR) | payer MEDICARE, SELFPAY ==
--- NOTE | 2025-02-17 14:11 | PTOPEVAL1 ---
Assessment and note entered by Gi Tobin DPT Evaluation Information Assessment Status Evaluation Diagnosis low back pain ICD-10 Condition Codes (PT) Pain in low back M54.50 Other ICD-10 Condition Codes ( I63.9, R53.1, R26.9, R53.81 PT) Onset 01/28/25 Subjective Information Patient reports he has had back pain for years. He reports he had a slight stroke in the spring and since then his back pain has limited the distance he is able to walk. He reports he has been using a walker for the last year and without the walker he falls frequently. He reports he is limited to very short distances of walking due to pain. He also reports pain is increased with standing, getting up out of a chair and bending over. He reports no pain with sitting or sleeping. Reported Pain Level Pain Score 0: Self Report Assessment PT Clinical Summary Mr. Pryor is a 84 year old male who presents to PT with low back pain. He demonstrates decreased B LE strength, impaired posture and poor balance limiting his ability to ambulate prolonged distances, get up out of a chair and bend over to sweet pickled fruit maker objects. He would benefit from skilled PT to address impairments and return to PLOF. Plan of Care Interventions Electrical Stimulation,Gait Training,Hot Pack/Cold Pack,Manual Therapy,Neuro Re-education,Patient/ Caregiver Education,Therapeutic Activities, Therapeutic Exercise PT Services Indicated Yes Treatment Frequency and 2x weekly for 10 visits Duration These treatments will address the objective and functional deficits as defined above. The patient will be advanced safely and appropriately in order for the patient to progress towards his/her prior level of function. Additional exercises will be introduced and as well as a comprehensive home exercise program upon discharge, if needed, ?to ensure carryover of functional gains achieved in the clinic. This treatment plan has been reviewed and agreement upon by the patient.
--- NOTE | 2025-03-26 15:46 | OPREHPOC ---
Outpatient Therapy Plan of Care This is a Multidisciplinary Plan of Care that may contain components documented by all disciplines (PT, OT, and ST.) PT Problem 1 PT Problem #1 Knowledge Deficit PT Goal 1 Goal / Goal Update patient to demonstrate independence with HEP Target Visit 5 Progress Met PT Problem 2 PT Problem #2 Pain PT Goal 1 Goal / Goal Update 1. Patient to report highest pain at 2/10 -not met 2. Patient to report ability to stand for 30 minutes without increase in low back pain -not met Target Visit 10 Progress Not Met PT Problem 3 PT Problem #3 Impaired Strength PT Goal 1 Goal / Goal Update 1. Patient to demonstrate 4+/5 B LE strength to improve ability to get up out of a chair Target Visit 10 Progress Not Met PT Problem 4 PT Problem #4 Impaired Functional Mobility PT Goal 1 Goal / Goal Update 1. Patient to improve Back Index by 20% -not met 2. Patient to demonstrate ability to ambulate 200' without sitting due to back pain to return to house hold and community ambulation -met 3. Patient to demonstrate ability to pick object up off the ground with no reports of increased back pain -not met 4. Patient to improve Tinetti Balance scale to 19 points to decrease fall risk -not met Target Visit 10
--- NOTE | 2025-03-26 15:58 | PTOPEVAL1 ---
Assessment and note entered by Ny Giron, PT Evaluation Information Assessment Status Discharge Diagnosis low back pain ICD-10 Condition Codes (PT) Pain in low back M54.50 Other ICD-10 Condition Codes ( I63.9, R53.1, R26.9, R53.81 PT) Onset 01/28/25 Subjective Information Ashkan Pryor reports his lower back pain is about the same. He has been performing exercises at home and feels he can try on his own with exercises. Reported Pain Level Pain Score 0: Self Report Assessment PT Clinical Summary Ashkan Pryor has completed 10 skilled PT visits for low back pain. He is reporting no overall change in his pain since initiating PT. He still notes pain with walking and standing longer than 10 minutes. He objectively demonstrates slightly improved strength and walking tolerance. He was able to ambulate 400 feet today before pain limits him. He continues to have a moderate fall risk per the Tinetti. He was instructed to continue his home exercises and was educated in fall prevention strategies. He will be discharged to an independent [facility]. Plan of Care Interventions Manual Therapy,Patient/Caregiver Education, Therapeutic Activities,Therapeutic Exercise PT Services Indicated No Treatment Frequency and Discharge Duration These treatments will address the objective and functional deficits as defined above. The patient will be advanced safely and appropriately in order for the patient to progress towards his/her prior level of function. Additional exercises will be introduced and as well as a comprehensive home exercise program upon discharge, if needed, ?to ensure carryover of functional gains achieved in the clinic. This treatment plan has been reviewed and agreement upon by the patient.
== END 2025-03-26 18:51 | disposition home or self-care (01) ==
LOC: CHSPT 12:48
PROVIDERS: Visit Provider Family Medicine
DX: M54.50 Low back pain, unspecified (principal); I63.9 Cerebral infarction, unspecified; R53.1 Weakness; R26.9 Unspecified abnormalities of gait and mobility; R53.81 Other malaise
CPT/HCPCS: 97014; 97110; 97140; 97150; 97161; 97530; 97750; G0283

== ENCOUNTER 2025-05-28 17:26 | Inpatient (IN) | payer MEDICARE, SELFPAY ==
--- NOTE | ~2025-05-28 | XR_ITS ---
EXAMINATION: XR chest 1V portable DATE: 05/28/2025 20:14 INDICATION: Hypoxia TECHNIQUE: frontal view of the chest was obtained. COMPARISON: Chest radiograph dated 12/13/2024 FINDINGS: Diffuse increased initial pattern throughout both lungs with peribronchial cuffing at the bilateral emilie consistent with mild pulmonary edema. No pleural effusion or pneumothorax. Cardiomegaly. Median sternotomy wires and prior aortic valve repair. Likely bilateral rotator cuff arthropathy. IMPRESSION: 1. Bilateral diffuse increased interstitial pattern with peribronchial cuffing consistent with likely congestive heart failure related mild pulmonary edema. Differential would include pneumonia. 2. Cardiomegaly. Reviewed, dictated and finalized at location A. IMPRESSION: 1. Bilateral diffuse increased interstitial pattern with peribronchial cuffing consistent with likely congestive heart failure related mild pulmonary edema. D ifferential would include pneumonia. 2. Cardiomegaly.
--- NOTE | ~2025-05-28 | XR_ITS ---
EXAMINATION: XR hip RT 2V w AP pelvis DATE: 05/28/2025 17:59 INDICATION: Right hip pain post fall TECHNIQUE: Anteroposterior view of the pelvis and anteroposterior and cross- table lateral views of the right hip were obtained. COMPARISON: None. FINDINGS: Transcervical fracture of the proximal right femur with 8 mm anterior displacement and 30 degrees varus angulation. No other fractures identified. Mild osteoarthritis at the bilateral hips and mild to moderate osteoarthritis at the bilateral sacroiliac joints. At least mild lumbar spondylosis. IMPRESSION: 1. Mild anterior displacement and 30 degrees varus angulation of a transcervical fracture of the proximal right femur. Reviewed, dictated and finalized at location A. IMPRESSION: 1. Mild anterior displacement and 30 degrees varus angulation of a transcervica l fracture of the proximal right femur.
--- NOTE | ~2025-05-28 | CT_ITS ---
EXAMINATION: CT brain wo con DATE: 05/28/2025 18:45 INDICATION: Fall TECHNIQUE: Computed tomography (CT) of the head was performed without intravenous contrast. Sagittal and coronal reconstructions were performed. The mA was adjusted according to patient size. Iterative reconstruction technique was employed. The dose-length product was 681.00 mGy-cm. COMPARISON: Head CT and CT angiogram and brain MR dated 10/17/2024 FINDINGS: No fracture. No acute intracranial hemorrhage, acute infarction or abnormal extra axial fluid collection. Small region of encephalomalacia consistent in the left middle cerebellar peduncle at the site of the previously noted restricted diffusion consistent with now chronic infarct. There is mild scattered white matter hypoattenuation consistent with chronic small vessel ischemic disease. A. Symmetric prominence of the sulci consistent with mild age-appropriate diffuse cerebral volume loss. Ventricles are normal and symmetric. No mass/mass effect. Changes of left intraocular lens replacement. The orbits and mastoid air cells are normal. Mucosal thickening throughout the paranasal sinuses most prominent in the right maxillary sinus. IMPRESSION: 1. No fracture or acute intracranial process. 2. 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 Reviewed, dictated and finalized at location A.
--- NOTE | ~2025-05-28 | XR_ITS ---
XR hip RT 1V INDICATION: Postoperative right hip COMPARISON: None FINDINGS: Single view of the right hip demonstrate hip arthroplasty. Components are well-seated in the appropriate position. IMPRESSION: Postoperative changes from right hip arthroplasty. Reviewed, dictated and finalized at location S.
--- NOTE | ~2025-05-28 | XR_ITS ---
EXAMINATION: XR chest 1V portable COMPARISON: No comparisons available. HISTORY: follow up pulmonary edema FINDINGS: Moderate pulmonary venous congestion. No pneumothorax. Moderate cardiomegaly. Mediastinal and hilar contours are within normal limits. Post sternotomy. Miscellaneous: None Impression: CHF Reviewed, dictated and finalized at location P. Impression: CHF
[2025-05-28 17:28] VITALS: BP 144/76; PULSE 78; RESP 16; TEMP 36.6; O2SAT 93
--- NOTE | 2025-05-28 17:35 | ED_ITS ---
HPI - Extremity Injury (Lower) General Chief Complaint: Extremity Injury, Lower Stated Complaint: hip injury after fall Time Seen by Provider: 05/28/25 17:29 History of Present Illness HPI Narrative: This is an 84-year-old male with history of CHF, paroxysmal AFib, CAD, diabetes, COPD who presents to the ED for a fall and right hip pain. Patient states that he [place] walking [place] when he lost his balance and fell onto his right buttock. Denies eating his head, loss conscious. He has had right hip pain since then. He was able to walk initially but has had worsening of his pain. No prior joint injuries that he is aware of. Related Data Home Medications ?Medication ?Instructions ?Recorded ?Confirmed ?Last Taken ?Type lancets 30 gauge 12/27/23 05/28/25 Unknown H istory pantoprazole 40 mg tablet,delayed 40 mg PO QAM 5 05/28/25 Unknown History release (Protonix) simvastatin 20 mg tablet 20 mg PO HS 05/28/25 5 05/27/25 History Allergies Allergy/AdvReac Type Severity Reaction Status Date / Time metformin AdvReac Intermediate Diarrhea Verified 05/28/25 17:37 Review of Systems 2 Review of Systems: Gen.: Denies fevers or chills Eyes: Denies eye pain or visual change ENT: Denies congestion Respiratory: Denies shortness of breath or cough CV: Denies chest pain or palpitations GI: Denies abdominal pain nausea, emesis or diarrhea denies burning, urgency, frequency or hematuria Musculoskeletal: As per HPI Neuro: Denies numbness, tingling, weakness or focal weakness Skin: Denies rash Except as documented, all other systems reviewed and negative [facility] Past Medical History Medical History Lumbar stenosis Lumbar spondylosis Squamous cell carcinoma Paroxysmal atrial fibrillation Hyperlipidemia Hypertension Transient ischemic attack Diet-controlled type 2 diabetes mellitus Chronic obstructive pulmonary disease Chronic anticoagulation Heart failure with preserved ejection fraction EF 50 to 55% in 05/09/2024 Coronary artery disease Right-sided extracranial carotid artery stenosis Aortic valve disease status post bioprosthetic aortic valve replacemen Surgical History Surgical History History of cataract extraction History of coronary angioplasty with insertion of stent (2023) History of aortic valve replacement with bioprosthetic valve x2 Family History Family History Father Hypertension Heart disease Mother Cancer Diabetes mellitus Hypertension Social History Social History Social History: Surrogate medical decision maker: Jorge Pryor, spouse. Code status: Full code. Smoking status: Never smoker Alcohol intake: never Substance use: never Substance use type: does not use Do You Feel Safe in your Home?: Yes Lack of Transportation: No Lack of Food: Never True Current Housing: I Have Housing Concerned About Future Housing: No Difficulty Paying Gas/Electric Bills: No Difficulty Paying for Meds: No Currently Unemployed: No Education: Decline to Answer Difficulty w/ Childcare or Family Care: No Living arrangements: with family Occupation/Education: retired Spiritual care concerns: No Exam 2 Narrative: APPEARANCE: No acute distress, nontoxic, resting in bed EYES: EOMI HEENT: Normocephalic, atraumatic, OMM RESPIRATORY: No respiratory distress Clear to auscultation bilaterally with no rhonchi wheezing or rales. CARDIOVASCULAR: Regular rate and rhythm without murmurs rubs or gallops. ABDOMINAL: Soft, nontender, nondistended, no rebound or guarding MUSCULOSKELETAl: Right lower extremity is shortened and externally rotated. There is tenderness to palpation over the right greater trochanter into the right PIIS. NEURO: Awake and alert. Following commands, speech normal, no focal deficits SKIN:: Warm, dry. No rashes lesions or abrasions PSYCHIATRIC: Normal affect/mood, Course Vital Signs Vital signs: Vital Signs Temperature 97.8 F 05/28/25 17:28 Pulse Rate 78 05/28/25 17:28 Respiratory Rate 16 05/28/25 17:28 Blood Pressure 144/76 H 05/28/25 17:28 Pulse Oximetry 93 05/28/25 17:28 Oxygen Delivery Nasal Cannula 05/28/25 17:28 Oxygen Flow Rate 2 05/28/25 17:28 Temperature 98.8 F 05/28/25 20:20 Pulse Rate 62 05/28/25 21:00 Respiratory Rate 18 05/28/25 21:00 Blood Pressure 120/51 L 05/28/25 20:20 Pulse Oximetry 94 05/28/25 21:00 Oxygen Delivery Nasal Cannula 05/28/25 21:00 Oxygen Flow Rate 1 05/28/25 21:00 MDM - Extremity Injury (Lower) MDM Narrative Medical decision making narrative: 84-year-old male presenting for fall with right hip pain. On initial evaluation, patient was in no acute distress, afebrile, hemodynamically stable. He did have a shortened externally rotated right lower extremity. He did have tenderness over the right greater trochanter and to the right PIIS. X-ray pelvis and right hip it did reveal a transcervical proximal femur fracture. I discussed the case with Orthopedic surgery, Dr. Rush will evaluate the patient in the morning. CT brain showed no acute abnormalities. Case discussed with hospitalist who will admit the patient. Differential Diagnosis Differential diagnosis: Likely other (Hip fracture, sprain, strain, ICH) Medical Records Attestation: I reviewed the patient's medical records. Lab Data Attestation: I reviewed the patient's lab results. 05/28/25 18:58 05/28/25 18:59 Imaging Data Attestation: I personally reviewed and interpreted this imaging study as follows: Radiologist's impression: Impressions Hip/Pelvis X-Ray 05/28/25 18:04 IMPRESSION: 1. Mild anterior displacement and 30 degrees varus angulation of a transcervical fracture of the proximal right femur. CT Brain wo con IMPRESSION: 1. No fracture or acute intracranial process. 2. 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 Discharge Plan Discharge Clinical Impression: Closed hip fracture Qualifiers: Encounter type: initial encounter Laterality: right Qualified Code(s): S72.001A - Fracture of unspecified part of neck of right femur, initial encounter for closed fracture Patient Disposition: Still a Patient Condition: Stable
--- NOTE | 2025-05-28 18:14 | ECG_ITS ---
Test Date: 2025-05-28 18:53:15 Measurements Intervals [place] Rate: 67 P: 47 SD: 255 QRS: 78 QRSD: 172 T: 88 QT: 483 QTc: 513 Interpretive Statements SINUS RHYTHM WITH FIRST DEGREE AV BLOCK LEFT BUNDLE BRANCH BLOCK BASELINE ARTIFACT- I, II, AVR, AVL, AVF ABNORMAL ECG Compared to ECG 12/13/2024 14:33:56 NO SIGNIFICANT CHANGE Electronically Signed On 05-29-2025 06:17:29 CDT by Isaiah Burk D.O.
[2025-05-28] MEDS: HYDROmorphone HCL INJ (*CRX) 1 MG/ML SYR IV PUSH (19:00)
[2025-05-28 19:04] LABS: Hematocrit 39.3 % (42.0-52.0); Hemoglobin 13.0 g/dL (14.0-18.0); Immature Granulocyte Percent A 0.5 % (0-0.5); Lymphocytes Absolute Auto 0.64 K/mm3 (0.9-3.2); Mean Corpuscular HGB Conc 33.1 g/dl (32-36); Mean Corpuscular Hemoglobin 30.7 pg (26-34); Mean Corpuscular Volume 92.7 fl (80-100); Nucleated Red Blood Cells Absolute Auto 0.000 K/mm3 (0.0-0.012); Nucleated Red Blood Cells Perc 0.0 % (0.0-0.2); Platelet Count Result 174 k/mm3 (150-375); Red Blood Count 4.24 M/mm3 (4.6-6.20); White Blood Count 14.7 K/mm3 (4.5-10.0)
[2025-05-28 19:15] LABS: Alanine Aminotransferase 18 U/L (6-50); Albumin Level 3.8 g/dL (3.5-5.1); Alkaline Phosphatase 70 U/L (38-126); Anion Gap 6 mmol/L (4-12); Aspartate Amino Transferase 30 U/L (17-59); Bilirubin,Total 1.0 mg/dL (0.2-1.3); Blood Urea Nitrogen 32 mg/dL (9-20); Calcium 8.7 mg/dL (8.4-10.2); Carbon Dioxide 27 mmol/L (22-30); Chloride 99 mmol/L (98-107); Estimated CRCL calculation 47 ml/min; Estimated Glomerular Filt Rate 53; Glucose 135 mg/dL (65-110); Potassium 3.9 mmol/L (3.4-5.0); Sodium 132 mmol/L (137-145); Total Protein 6.9 g/dL (6.3-8.2)
[2025-05-28 19:20] VITALS: BP 134/67; PULSE 62; RESP 18; O2SAT 94
[2025-05-28 20:01] VITALS: BP 134/67; PULSE 62; RESP 18; O2SAT 94
--- NOTE | 2025-05-28 20:15 | PM.IMHP ---
H&P: HPI History of Present Illness Date/Time: 05/28/25 20:15 Chief Complaint: Right hip pain Narrative: 84-year-old male with PMH GERD, hypertension, anemia, AFib on Eliquis, CHF, aortic valve replacement, follows with Dr. Clifton at [facility], COPD, BPH, GIAN untreated due to noncompliance, [id number] diabetes mellitus, lung nodules, hyperlipidemia, claustrophobia, insomnia presents to [facility] ER on 05/28/2025 complaining of a fall with right hip pain. Patient is a former, he was walking in his barn when he lost his balance and fell onto his right buttock. Denies loss of consciousness or head strike, he has had right hip pain all day, he was walking around at [place], then he just sat in his car for multiple hours. 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 WBC 14.7, hemoglobin 13, sodium 132, BUN 32, serum creatinine 1.29. Patient was given Dilaudid 1 mg IV x1. Hemodynamically stable on arrival however it appears after Dilaudid administration the patient was placed on 2 L of nasal cannula for comfort. No hypoxia documented. Patient denies any shortness of breath, chest pain, fever, nausea, vomiting, abdominal pain, diarrhea. Orthopedic surgery consulted from the ER. Requested admission by the hospitalist. Review of Systems Review of Systems: All systems reviewed & are unremarkable except as noted in HPI and below (Subjective) [facility] Past Medical History Medical History Lumbar stenosis Lumbar spondylosis Squamous cell carcinoma Paroxysmal atrial fibrillation Hyperlipidemia Hypertension Transient ischemic attack Diet-controlled type 2 diabetes mellitus Chronic obstructive pulmonary disease Chronic anticoagulation Heart failure with preserved ejection fraction EF 50 to 55% in 05/09/2024 Coronary artery disease Right-sided extracranial carotid artery stenosis Aortic valve disease status post bioprosthetic aortic valve replacemen Surgical History Surgical History History of cataract extraction History of coronary angioplasty with insertion of stent (2023) History of aortic valve replacement with bioprosthetic valve x2 Family History Family History Father Hypertension Heart disease Mother Cancer Diabetes mellitus Hypertension Social History Social History Social History: Surrogate medical decision maker: Jorge Pryor, spouse. Code status: Full code. Smoking status: Never smoker Alcohol intake: never Substance use: never Substance use type: does not use Do You Feel Safe in your Home?: Yes Lack of Transportation: No Lack of Food: Never True Current Housing: I Have Housing Concerned About Future Housing: No Difficulty Paying Gas/Electric Bills: No Difficulty Paying for Meds: No Currently Unemployed: No Education: Decline to Answer Difficulty w/ Childcare or Family Care: No Living arrangements: with family Occupation/Education: retired Spiritual care concerns: No Meds Home Medications and Allergies Home Medications ?Medication ?Instructions ?Recorded ?Confirmed ?Type carvedilol 25 mg tablet 25 mg PO BID #180 tabs 02/14/23 05/19/25 Rx lancets 30 gauge 12/27/23 05/19/25 History blood sugar diagnostic (Accu-Chek #100 ea 02/22/24 05/19/25 Rx Guide test strips) blood-glucose meter (Accu-Chek #1 ea 02/22/24 05/19/25 Rx Guide Glucose Meter) apixaban 5 mg tablet 5 mg PO BID #60 tabs 10/31/24 05/19/25 Rx atorvastatin 80 mg tablet 80 mg PO DAILY #30 tabs 10/31/24 05/19/25 Rx methocarbamol 500 mg tablet 500 mg PO BID PRN MUSCLE SPASM #10 11/18/24 05/19/25 Rx tabs melatonin 5 mg tablet 5 mg PO HS #90 tabs 11/26/24 05/19/25 Rx albuterol sulfate 90 mcg/actuation 1 inh inhalation Q4H PRN Shortness 12/16/24 05/19/25 Rx aerosol inhaler Of Breath Or Wheezing #8.5 grams losartan 25 mg tablet 25 mg PO DAILY #90 tabs 01/08/25 05/19/25 Rx empagliflozin 10 mg tablet 10 mg PO DAILY 02/04/25 05/19/25 History (Jardiance) pantoprazole 40 mg tablet,delayed 40 mg PO QAM 02/04/25 05/19/25 History release (Protonix) clopidogrel 75 mg tablet (Plavix) 75 mg PO DAILY #90 tabs 02/25/25 05/19/25 Rx potassium chloride 20 mEq 20 meq PO DAILY #90 tabs 03/17/25 05/19/25 Rx tablet,extended release (K-Tab) trazodone 50 mg tablet 50 mg PO QHS PRN insomnia #90 tabs 04/13/25 05/19/25 Rx paroxetine HCl 20 mg tablet 20 mg PO QAM #90 tabs 04/15/25 05/19/25 Rx furosemide 40 mg tablet 40 mg PO BID #90 tabs 04/21/25 05/19/25 Rx buspirone 5 mg tablet 5 mg PO Q12HR #180 tabs 05/04/25 05/19/25 Rx Allergies Allergy/AdvReac Type Severity Reaction Status Date / Time metformin AdvReac Intermediate Diarrhea Verified 05/28/25 17:37 Vital Signs Vital Signs - 24 hr 05/28/25 17:28 05/28/25 19:20 05/28/25 20:01 Temperature 97.8 F Pulse Rate 78 62 62 Respiratory Rate 16 18 18 Blood Pressure 144/76 H 134/67 134/67 Pulse Oximetry 93 94 94 Oxygen Delivery Nasal Cannula Oxygen Flow Rate 2 Exam Const: General: comfortable and no acute distress Other: A&O x3 HENMT: Mouth: Yes moist mucous membranes Eyes: Pupils: Equal, round and reactive pupils present Neck: Neck: supple Resp: Effort & Inspection: normal respiratory effort Auscultation: clear to auscultation bilaterally Cardio: Rate: regular rate Rhythm: regular rhythm Heart sounds: no murmurs GI: Inspection: non-distended GI Palp: Yes Soft to palpation and No Tenderness to palpation present (GI) Neuro: Motor exam (neuro): 5/5 motor strength present throughout Extrem: General: no edema H&P: Results Labs Labs: Short CBC 05/28/25 Range/Units 18:58 WBC 14.7 H (4.5-10.0) K/mm3 Hgb 13.0 L (14.0-18.0) g/dL Hct 39.3 L (42.0-52.0) % Plt Count 174 (150-375) k/mm3 BMP 05/28/25 18:59 Sodium 132 L Potassium 3.9 Chloride 99 Carbon Dioxide 27 BUN 32 H D Creatinine 1.29 Glucose 135 H Calcium 8.7 Liver Function 05/28/25 Range/Units 18:59 Total Bilirubin 1.0 (0.2-1.3) mg/dL AST 30 (17-59) U/L ALT 18 (6-50) U/L Alkaline Phosphatase 70 (38-126) U/L Albumin 3.8 (3.5-5.1) g/dL Assessment and Plan Assessment and plan (1) Closed right femoral fracture: Code(s): S72.91XA - Unspecified fracture of right femur, initial encounter for closed fracture Status: Acute Plan 84-year-old male with PMH GERD, hypertension, anemia, AFib on Eliquis, CHF, aortic valve replacement, follows with Dr. Clifton at [facility], COPD, BPH, GIAN untreated due to noncompliance, [id number] diabetes mellitus, lung nodules, hyperlipidemia, claustrophobia, insomnia presents to [facility] ER on 05/28/2025 complaining of a fall with right hip pain. Patient is a former, he was walking in his barn when he lost his balance and fell onto his right buttock. Denies loss of consciousness or head strike, he has had right hip pain all day, he was walking around at [place], then he just sat in his car for multiple hours. 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 WBC 14.7, hemoglobin 13, sodium 132, BUN 32, serum creatinine 1.29. Patient was given Dilaudid 1 mg IV x1. Hemodynamically stable on arrival however it appears after Dilaudid administration the patient was placed on 2 L of nasal cannula for comfort. No hypoxia documented. Patient denies any shortness of breath, chest pain, fever, nausea, vomiting, abdominal pain, diarrhea. Orthopedic surgery consulted from the ER. Requested admission by the hospitalist. ----- Bed rest. Fall precaution. NPO. Dilaudid p.r.n.. If the patient is truly hypoxic after Dilaudid administration he will need to be on continuous pulse oximetry. History of GIAN noncompliant with CPAP. Wean O2 as tolerated, do not give O2 supplement unnecessarily. Check chest x-ray, urinalysis. At this time he does not have indication for antibiotics, leukocytosis could be reactive. Check procalcitonin. All his other medications will be restarted as appropriate and indicated when medication reconciliation is completed. Daughter and at bedside. They report they do not have his medication list, I asked if they could bring it in. They tell me they lives 20 minutes away. ----- SCDs. Saline lock IV. Full code. Hospitalist MIPS Advance Care Plan I have confirmed that the patient's Advanced Care Plan is present, code status is documented, or surrogate decision maker is listed in patient medical record.: Yes Medication Reconciliation I have utilized all available resources to obtain, update and review the patients current medications (includes all prescriptions, OTC, herbals, cannabis, and nutritional supplements).: Yes
[2025-05-28 20:20] VITALS: BP 120/51; PULSE 70; RESP 16; TEMP 37.1; O2SAT 92
[2025-05-28 20:22] LABS: Procalcitonin 0.2 ng/mL
[2025-05-28 20:27] VITALS: BMI 31.3
--- NOTE | 2025-05-28 20:42 | ADMGEN ---
This patient, Ashkan Pryor, was admitted to Medical Room 245-. Patient/family oriented to hospital policies and general routines including ID bracelet, bed and alarms, visiting hours, pain management, procedures, bathroom and other care routines, personal items, smoking policy, room service/diet, and visiting hours. Information on how to activate the Rapid Response Team has been discussed. Patient/Family are encouraged to report perceived risks to care and to ask questions if they do not understand what they are told or what they should do.
[2025-05-28 21:00] VITALS: PULSE 62; RESP 18; O2SAT 94
[2025-05-29] VITALS (13 sets, daily range): BP systolic 139–157; BP diastolic 57–89; PULSE 66–87; RESP 16–18; TEMP 36.6–37.2; O2SAT 94–98
[2025-05-29] MEDS: HYDROmorphone HCL INJ (*CRX) 1 MG/ML SYR 0.5 MG IV PUSH ×2 (04:03→23:05)
[2025-05-29 04:18] LABS: Add Urine Microscopic? NO; Appearance Urine Clear (Clear); Glucose Urine UA 3+ mg/dL (Negative); Leukocyte Esterase Ur Negative LEU/UL (Negative); Nitrate Urine Negative (Negative); Specific Grav Ur 1.021 (1.001-1.035)
[2025-05-29 05:12] LABS: Hematocrit 41.2 % (42.0-52.0); Hemoglobin 13.5 g/dL (14.0-18.0); Immature Granulocyte Percent A 0.7 % (0-0.5); Lymphocytes Absolute Auto 1.19 K/mm3 (0.9-3.2); Mean Corpuscular HGB Conc 32.8 g/dl (32-36); Mean Corpuscular Hemoglobin 31.0 pg (26-34); Mean Corpuscular Volume 94.5 fl (80-100); Nucleated Red Blood Cells Absolute Auto 0.000 K/mm3 (0.0-0.012); Nucleated Red Blood Cells Perc 0.0 % (0.0-0.2); Platelet Count Result 171 k/mm3 (150-375); Red Blood Count 4.36 M/mm3 (4.6-6.20); White Blood Count 12.5 K/mm3 (4.5-10.0)
[2025-05-29 05:33] LABS: Anion Gap 5 mmol/L (4-12); Blood Urea Nitrogen 38 mg/dL (9-20); Calcium 9.1 mg/dL (8.4-10.2); Carbon Dioxide 32 mmol/L (22-30); Chloride 98 mmol/L (98-107); Estimated CRCL calculation 38 ml/min; Estimated Glomerular Filt Rate 42; Glucose 149 mg/dL (65-110); Magnesium 2.2 mg/dL (1.6-2.3); Potassium 4.9 mmol/L (3.4-5.0); Sodium 135 mmol/L (137-145)
[2025-05-29 05:50] LABS: Procalcitonin 0.3 ng/mL
[2025-05-29 07:26] LABS: INR 1.4; Partial Thromboplastin Time 32.6 Seconds (22.3-36.8); Prothrombin Time 17.0 Seconds (11.1-14.7)
--- NOTE | 2025-05-29 08:51 | P.PNIM_ITS ---
Progress Note: A&P Assessment and Plan (1) Closed right femoral fracture: Code(s): S72.91XA - Unspecified fracture of right femur, initial encounter for closed fracture Status: Acute Plan 84-year-old male with PMH GERD, hypertension, anemia, AFib on Eliquis, CHF, aortic valve replacement, follows with Dr. Clifton at [facility], COPD, BPH, GIAN untreated due to noncompliance, [id number] diabetes mellitus, lung nodules, hyperlipidemia, claustrophobia, insomnia presents to [facility] ER on 05/28/2025 complaining of a fall with right hip pain. Patient is a former, he was walking in his barn when he lost his balance and fell onto his right buttock. Denies loss of consciousness or head strike, he has had right hip pain all day, he was walking around at [place], then he just sat in his car for multiple hours. 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 WBC 14.7, hemoglobin 13, sodium 132, BUN 32, serum creatinine 1.29. Right femur fracture Fall 05/28 Hip and Pelvis X-ray Mild anterior displacement and 30 degrees varus angulation of a transcervical fracture of the proximal right femur. Orthopedic surgery consulted in the ER Resumed diet Bedrest fall precautions Acute Pain Schedule tylenol 1000mg TID --Dialudid prn Placed on 2L O2 for comfort after dilaudid, weaned to 1L Acute respiratory failure Placed on 2L O2 after dose of dilaudid. 05/28 Chest xray 1. Bilateral diffuse increased interstitial pattern with peribronchial cuffing consistent with likely congestive heart failure related mild pulmonary edema. Differential would include pneumonia. 2. Cardiomegaly. SAMIR Ddx includes prerenal, cardiorenal, other Reports he might not have been drinking as much morning prior to admission Holding lasix 40 BID Losartan 25--hold today Follow daily BMP Check UA Na, Urea, Creatinine Elevated WBC Mild elevation 14.7>12.5 Chest x-ray procalcitonin normal CAD Hx CHF Holding plavix Lauro start aspirin in AM since off plavix 05/19/24 TTE LVEF 50-55% dyskinesis ventricular septum Afib Hx bioprosthetic aortic valve Holding Apixaban Follows with Dr. Sheth Start heparin for DVT prophylaxis pending OR GIAN Continue CPAP hs SCDs. Saline lock IV. Full code. Time Spent With Patient Time: 57 minutes Subjective Date/time seen: 05/29/25 08:51 Interval history: VSS. BP elevated. WBC elevated on admission, 14.7, improved without treatment. Chest x-ray showed mild pulmonary edema vs pneumonia. No recent fevers. He reports problems with balance since stroke a year ago. 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 No acute distress Eyes - PERRLA, EOM intact ENT - No thrush, No erythema Neck - No noticeable or palpable swelling Lymph Nodes - No lymphadenopathy Cardiovascular - RRR no m/r/g, no JVD Lungs: Clear to auscultation, No wheezing, use of accessory muscles, no crackles or wheezes. Skin - Skin warm and dry, no wounds or rashes Abdomen - Normal bowel sounds, abdomen soft and nontender Extremities - No edema, cyanosis or clubbing Musculoskeletal - 5/5 strength, normal range of motion, no swollen or erythematous joints. Neurological ? Alert and oriented x 3, Mild Left facial weakness Psych: Normal mood and affect Objective Data Vital Signs Vital Signs: Vital Signs - 24 hr 05/28/25 17:28 05/28/25 19:20 05/28/25 20:01 Temperature 97.8 F Pulse Rate 78 62 62 Respiratory Rate 16 18 18 Blood Pressure 144/76 H 134/67 134/67 Pulse Oximetry 93 94 94 Oxygen Delivery Nasal Cannula Oxygen Flow Rate 2 05/28/25 20:20 05/28/25 21:00 05/29/25 00:00 Temperature 98.8 F Pulse Rate 70 62 68 Respiratory Rate 16 18 Blood Pressure 120/51 L Pulse Oximetry 92 94 Oxygen Delivery Nasal Cannula Oxygen Flow Rate 1 05/29/25 04:00 05/29/25 04:17 Temperature 98.9 F Pulse Rate 87 81 Respiratory Rate 16 Blood Pressure 139/89 Pulse Oximetry 94 Oxygen Delivery Oxygen Flow Rate Meds/Results Medications: Active Medications Generic Name Dose Route Start Last Admin Trade Name Freq PRN Reason Stop Dose Admin Hydromorphone HCl 0.5 mg 05/28/25 20:12 05/29/25 04:03 Hydromorphone Hcl Inj (*Crx) 1 Mg/Ml Syr IV PUSH 0.5 mg Q3H PRN Administration Pain Rated 7-10 Radiology Results: ITS Impressions Hip/Pelvis X-Ray 05/28/25 18:04 IMPRESSION: 1. Mild anterior displacement and 30 degrees varus angulation of a transcervical fracture of the proximal right femur. Head CT 05/28/25 19:14 IMPRESSION: 1. No fracture or acute intracranial process. 2. 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 Chest X-Ray 05/28/25 20:32 IMPRESSION: 1. Bilateral diffuse increased interstitial pattern with peribronchial cuffing consistent with likely congestive heart failure related mild pulmonary edema. Differential would include pneumonia. 2. Cardiomegaly. Labs Labs: Laboratory Results - last 24 hr 05/28/25 05/28/25 05/29/25 18:58 18:59 04:09 WBC 14.7 H RBC 4.24 L Hgb 13.0 L Hct 39.3 L MCV 92.7 MCH 30.7 MCHC 33.1 RDW 15.1 H Plt Count 174 MPV 10.7 H Immature Gran % (Auto) 0.5 Neut % (Auto) 88.3 H Lymph % (Auto) 4.4 L [place] % (Auto) 6.3 Eos % (Auto) 0.2 Baso % (Auto) 0.3 Lymph # (Auto) 0.64 L [place] # (Auto) 0.9 H Eos # (Auto) 0.0 Baso # (Auto) 0.0 Abs Immat Gran (auto) 0.07 H Absolute Neuts (auto) 13.0 H Absolute Nucleated RBC 0.000 Nucleated RBC % 0.0 PT INR APTT Sodium 132 L Potassium 3.9 Chloride 99 Carbon Dioxide 27 Anion Gap 6 BUN 32 H D Creatinine 1.29 Estim Creat Clear Calc 47 Estimated GFR 53 L Glucose 135 H Calcium 8.7 Magnesium Total Bilirubin 1.0 AST 30 ALT 18 Alkaline Phosphatase 70 Total Protein 6.9 Albumin 3.8 Procalcitonin 0.2 Urine Color Yellow Urine Appearance Clear Urine pH 5.0 Ur Specific [place] 1.021 Urine Protein Negative Urine Glucose (UA) 3+ H Urine Ketones Negative Ur Blood (Man) Negative Urine Nitrate Negative Urine Bilirubin Negative Urine Urobilinogen 0.2 Ur Leukocyte Esterase Negative 10/10/25 10/10/25 04:53 07:08 WBC 12.5 H RBC 4.36 L Hgb 13.5 L Hct 41.2 L MCV 94.5 MCH 31.0 MCHC 32.8 RDW 15.1 H Plt Count 171 MPV 10.9 H Immature Gran % (Auto) 0.7 H Neut % (Auto) 79.7 H Lymph % (Auto) 9.6 L [place] % (Auto) 7.0 Eos % (Auto) 2.5 Baso % (Auto) 0.5 Lymph # (Auto) 1.19 [place] # (Auto) 0.9 H Eos # (Auto) 0.3 Baso # (Auto) 0.1 Abs Immat Gran (auto) 0.09 H Absolute Neuts (auto) 9.9 H Absolute Nucleated RBC 0.000 Nucleated RBC % 0.0 PT 17.0 H INR 1.4 APTT 32.6 Sodium 135 L Potassium 4.9 Chloride 98 Carbon Dioxide 32 H Anion Gap 5 BUN 38 H Creatinine 1.59 H Estim Creat Clear Calc 38 Estimated GFR 42 L Glucose 149 H Calcium 9.1 Magnesium 2.2 Total Bilirubin AST ALT Alkaline Phosphatase Total Protein Albumin Procalcitonin 0.3 Urine Color Urine Appearance Urine pH Ur Specific [place] Urine Protein Urine Glucose (UA) Urine Ketones Ur Blood (Man) Urine Nitrate Urine Bilirubin Urine Urobilinogen Ur Leukocyte Esterase Quality VTE Prophylaxis VTE prophylaxis: pharmacologic ordered Hospitalist MIPS Advance Care Plan I have confirmed that the patient's Advanced Care Plan is present, code status is documented, or surrogate decision maker is listed in patient medical record.: Yes Medication Reconciliation I have utilized all available resources to obtain, update and review the patients current medications (includes all prescriptions, OTC, herbals, cannabis, and nutritional supplements).: Yes
[2025-05-29] MEDS: PANTOPRAZOLE 40 MG TABLET PO (09:47)
[2025-05-29] MEDS: ACETAMINOPHEN 500 MG TABLET 1000 MG PO ×3 (09:47→16:29)
--- NOTE | 2025-05-29 10:42 | PM.CNOR ---
Assessment and Plan Assessment and plan (1) Fracture of femoral neck, right, closed: Qualifiers: Encounter type: initial encounter Qualified Code(s): S72.001A - Fracture of unspecified part of neck of right femur, initial encounter for closed fracture Code(s): S72.001A - Fracture of unspecified part of neck of right femur, initial encounter for closed fracture Status: Acute Assessment and Plan: New patient evaluation for chief complaint fall with right hip fracture. History, physical exam and radiographs reviewed with the patient and family. fall at home yesterday. Right hip femoral neck fracture with angulation. Multiple medical problems including heart failure, coronary artery disease, aortic valve replacement, diabetes, chronic anticoagulation for AFib and stents. Discussed the condition with the patient and family. Treatment options including surgical and nonoperative treatment were reviewed. Risks and benefits of each as well as alternatives reviewed. The patient's questions were answered. Conservative treatment ice and mechanical dvt prophylaxis. Pain control. Option for hip pinning versus hemiarthroplasty replacement. The specific risks and benefits of each procedure were discussed in detail. Await medical stabilization. If hemiarthroplasty replacement would need length of time for anticoagulation to wear off. Plan Discussed nonoperative and operative treatment options with the patient. Risks and benefits of each as well as alternatives were reviewed. All of the patient's questions were answered. The risks of surgery reviewed including but not limited to: Neurovascular damage, wound complication, infection, blood clot, pulmonary embolus, stroke, myocardial infarction, and anesthetic risks up to and including . Continued pain and possible dysfunction were explained. Specific risks of the procedure including later recurrence of deformity. No guarantees were offered. If hardware used, discussed risk of failure/ breakage and possible need for removal. If complications occur, the patient understands the need for further treatment, possible further surgery. Patient verbalizes understanding and wishes to proceed. PLAN: Right hip bipolar versus pinning History of Present Illness HPI Consult date: 05/29/25 Requesting physician: Constantino Carrillo MD Chief complaint: RIGHT hip fracture Narrative: 84-year-old gentleman with multiple medical problems including heart disease and heart failure fell in his barn last night onto his right side and right buttock. He is an independent ambulator who normally uses a walker. He is unsteady without the walker. He is able to make it to his car. He presented to the emergency room with right hip pain was found to have a right hip fracture. Admitted for further care. Complains of pain in the right hip, worse with motion. Denies numbness or tingling. He has a history of lumbar spine arthritis and is currently awaiting epidural steroid injections for the lumbar spine. Review of Systems Constitutional: Constitutional: Denies fever(s) Eyes: Eyes: Denies blurry vision ENT: Reports Normal hearing present Cardiovascular: Cardiovascular: Denies chest pain and Denies dyspnea Respiratory: Respiratory: Denies dyspnea and Denies wheezing Gastrointestinal: Gastrointestinal: Denies abdominal pain Genitourinary: Genitourinary: Denies urinary urgency Musculoskeletal: Musculoskeletal: Reports as per HPI and Denies numbness Integumentary/Breasts: Skin/Breast: Denies changing lesions and Denies sores Neurologic: Reports Normal hearing present, Denies behavioral changes, Denies confusion, Denies numbness and Denies convulsions Psychiatric: Psychiatric: Denies behavioral changes, Denies confusion and Denies hallucinations Endocrine: Endocrine: Denies heat intolerance Hematologic/Lymphatic: Hematologic/Lymphatic: Denies easy bleeding Allergic/Immunologic: Allergic/Immunologic: Denies wheezing REPLACED BY [facility] Past Medical History Medical History (Updated 05/29/25 @ 10:48 by Keyur Rush MD) Fracture of femoral neck, right, closed Lumbar stenosis Lumbar spondylosis Squamous cell carcinoma Paroxysmal atrial fibrillation Hyperlipidemia Hypertension Transient ischemic attack Diet-controlled type 2 diabetes mellitus Chronic obstructive pulmonary disease Chronic anticoagulation Heart failure with preserved ejection fraction EF 50 to 55% in 05/09/2024 Coronary artery disease Right-sided extracranial carotid artery stenosis Aortic valve disease status post bioprosthetic aortic valve replacemen Surgical History Surgical History History of cataract extraction History of coronary angioplasty with insertion of stent (2023) History of aortic valve replacement with bioprosthetic valve x2 Family History Family History Father Hypertension Heart disease Mother Cancer Diabetes mellitus Hypertension Social History Social History Social History: Surrogate medical decision maker: Deerobert Konstantin, spouse. Code status: Full code. Smoking status: Never smoker Alcohol intake: never Substance use: never Substance use type: does not use Do You Feel Safe in your Home?: Yes Lack of Transportation: No Lack of Food: Never True Current Housing: I Have Housing Concerned About Future Housing: No Difficulty Paying Gas/Electric Bills: No Difficulty Paying for Meds: No Currently Unemployed: No Education: Decline to Answer Difficulty w/ Childcare or Family Care: No Living arrangements: with family Occupation/Education: retired Spiritual care concerns: No Meds Home Medications and Allergies Home Medications ?Medication ?Instructions ?Recorded ?Confirmed ?Type carvedilol 25 mg tablet 25 mg PO BID #180 tabs 02/14/23 05/28/25 Rx lancets 30 gauge 12/27/23 05/28/25 History blood sugar diagnostic (Accu-Chek #100 ea 02/22/24 05/28/25 Rx Guide test strips) blood-glucose meter (Accu-Chek #1 ea 02/22/24 05/28/25 Rx Guide Glucose Meter) apixaban 5 mg tablet 5 mg PO BID #60 tabs 10/31/24 05/28/25 Rx atorvastatin 80 mg tablet 80 mg PO DAILY #30 tabs 10/31/24 05/28/25 Rx methocarbamol 500 mg tablet 500 mg PO BID PRN MUSCLE SPASM #10 11/18/24 05/28/25 Rx tabs melatonin 5 mg tablet 5 mg PO HS #90 tabs 11/26/24 05/28/25 Rx albuterol sulfate 90 mcg/actuation 1 inh inhalation Q4H PRN Shortness 12/16/24 05/28/25 Rx aerosol inhaler Of Breath Or Wheezing #8.5 grams losartan 25 mg tablet 25 mg PO DAILY #90 tabs 01/08/25 05/28/25 Rx pantoprazole 40 mg tablet,delayed 40 mg PO QAM 02/04/25 05/28/25 History release (Protonix) clopidogrel 75 mg tablet (Plavix) 75 mg PO DAILY #90 tabs 02/25/25 05/28/25 Rx potassium chloride 20 mEq 20 meq PO DAILY #90 tabs 03/17/25 05/28/25 Rx tablet,extended release (K-Tab) trazodone 50 mg tablet 50 mg PO QHS PRN insomnia #90 tabs 04/13/25 05/28/25 Rx paroxetine HCl 20 mg tablet 20 mg PO QAM #90 tabs 04/15/25 05/28/25 Rx furosemide 40 mg tablet 40 mg PO BID #90 tabs 04/21/25 05/28/25 Rx buspirone 5 mg tablet 5 mg PO Q12HR #180 tabs 05/04/25 05/28/25 Rx simvastatin 20 mg tablet 20 mg PO HS 05/28/25 05/28/25 History Allergies Allergy/AdvReac Type Severity Reaction Status Date / Time metformin AdvReac Intermediate Diarrhea Verified 05/28/25 17:37 Vital Signs Vital Signs - 24 hr 05/28/25 17:28 05/28/25 19:20 05/28/25 20:01 Temperature 97.8 F Pulse Rate 78 62 62 Respiratory Rate 16 18 18 Blood Pressure 144/76 H 134/67 134/67 Pulse Oximetry 93 94 94 Oxygen Delivery Nasal Cannula Oxygen Flow Rate 2 05/28/25 20:20 05/28/25 21:00 05/29/25 00:00 Temperature 98.8 F Pulse Rate 70 62 68 Respiratory Rate 16 18 Blood Pressure 120/51 L Pulse Oximetry 92 94 Oxygen Delivery Nasal Cannula Oxygen Flow Rate 1 05/29/25 04:00 05/29/25 04:17 05/29/25 08:00 Temperature 98.9 F Pulse Rate 87 81 72 Respiratory Rate 16 Blood Pressure 139/89 Pulse Oximetry 94 Oxygen Delivery Oxygen Flow Rate 05/29/25 09:50 Temperature Pulse Rate Respiratory Rate Blood Pressure Pulse Oximetry 94 Oxygen Delivery Nasal Cannula Oxygen Flow Rate 2 Exam Const: General: No confusion Orientation/consciousness: patient oriented x3 and No confusion HENMT: Head: normal to inspection, normocephalic and atraumatic Eyes: Conjunctivae: conjunctivae normal Sclera: sclerae normal Neck: Neck: supple and nontender Chest: Chest palpation & inspection: normal inspection of the chest Resp: Effort & Inspection: normal respiratory effort and no audible wheezes GI: GI Palp: No abdominal tenderness and Yes Soft to palpation Skin: General skin exam: no rashes or lesions noted Neuro: General: patient oriented x3 and No confusion Extrem: General: capillary refill normal Right upper extremity: normal to inspection Left upper extremity: normal to inspection Right lower extremity: hip/thigh Details: tenderness Location: of the hip Location: laterally and swelling Location: at the hip ( mild), ankle ( able to actively flex and extend ankle) Details: no tenderness and foot Details: normal capillary refill, toes with normal ROM, vascular exam Details: dorsalis pedis pulse present and normal capillary refill and motor-sensory exam Details: light-touch normal Location: in all toes; no tenderness Left lower extremity: normal to inspection, hip/thigh Details: no tenderness and no swelling, lower leg, ankle (no calf tenderness) Details: normal ROM; no tenderness and foot Details: normal capillary refill, vascular exam Details: dorsalis pedis pulse present and normal capillary refill and motor-sensory exam light-touch normal in all toes Psych: Affect: normal affect Results Labs 05/29/25 04:53 05/29/25 04:53 Labs: Abnormal lab results 05/28/25 05/28/25 05/29/25 Range/Units 18:58 18:59 04:09 WBC 14.7 H (4.5-10.0) K/mm3 RBC 4.24 L (4.6-6.20) M/mm3 Hgb 13.0 L (14.0-18.0) g/dL Hct 39.3 L (42.0-52.0) % RDW 15.1 H (11.5-14.5) % MPV 10.7 H (7.4-10.4) fl Immature Gran % (Auto) (0-0.5) % Neut % (Auto) 88.3 H (45.5-73.1) % Lymph % (Auto) 4.4 L (18.3-44.2) % Lymph # (Auto) 0.64 L (0.9-3.2) K/mm3 [place] # (Auto) 0.9 H (0.1-0.6) K/mm3 Abs Immat Gran (auto) 0.07 H (0.00-0.031) K/mm3 Absolute Neuts (auto) 13.0 H (1.3-6.7) K/mm3 PT (11.1-14.7) Seconds Sodium 132 L (137-145) mmol/L Carbon Dioxide (22-30) mmol/L BUN 32 H D (9-20) mg/dL Creatinine (0.7-1.3) mg/dL Estimated GFR 53 L (59 - ) Glucose 135 H (65-110) mg/dL Urine Glucose (UA) 3+ H (Negative) mg/dL 05/29/25 05/29/25 Range/Units 04:53 07:08 WBC 12.5 H (4.5-10.0) K/mm3 RBC 4.36 L (4.6-6.20) M/mm3 Hgb 13.5 L (14.0-18.0) g/dL Hct 41.2 L (42.0-52.0) % RDW 15.1 H (11.5-14.5) % MPV 10.9 H (7.4-10.4) fl Immature Gran % (Auto) 0.7 H (0-0.5) % Neut % (Auto) 79.7 H (45.5-73.1) % Lymph % (Auto) 9.6 L (18.3-44.2) % Lymph # (Auto) (0.9-3.2) K/mm3 [place] # (Auto) 0.9 H (0.1-0.6) K/mm3 Abs Immat Gran (auto) 0.09 H (0.00-0.031) K/mm3 Absolute Neuts (auto) 9.9 H (1.3-6.7) K/mm3 PT 17.0 H (11.1-14.7) Seconds Sodium 135 L (137-145) mmol/L Carbon Dioxide 32 H (22-30) mmol/L BUN 38 H (9-20) mg/dL Creatinine 1.59 H (0.7-1.3) mg/dL Estimated GFR 42 L (59 - ) Glucose 149 H (65-110) mg/dL Urine Glucose (UA) (Negative) mg/dL H & H 05/28/25 05/29/25 Range/Units 18:58 04:53 Hgb 13.0 L 13.5 L (14.0-18.0) g/dL Hct 39.3 L 41.2 L (42.0-52.0) % Coagulation 05/29/25 Range/Units 07:08 INR 1.4 All other labs normal. Diagnostic results Hip x-ray: image reviewed ( AP pelvis and right hip radiographs show femoral neck fracture with varus angulation. Femoral head located. Moderate degenerative changes of the hip joint. Severe degenerative changes of the visualized portion of the lower lumbar spine.)
[2025-05-29] MEDS: ATORVASTATIN 40 MG TABLET 80 MG PO (13:32)
[2025-05-29 20:33] LABS: Urea Random Urine 812 MG/DL
[2025-05-30] VITALS (12 sets, daily range): BP systolic 113–146; BP diastolic 58–63; PULSE 59–88; RESP 16–20; TEMP 36.3–36.8; O2SAT 94–95
[2025-05-30] MEDS: HYDROmorphone HCL INJ (*CRX) 1 MG/ML SYR 0.5 MG IV PUSH ×2 (03:10→09:21)
[2025-05-30 05:09] LABS: Hematocrit 36.8 % (42.0-52.0); Hemoglobin 12.0 g/dL (14.0-18.0); Immature Granulocyte Percent A 0.6 % (0-0.5); Immature Platelet Fraction Pct 5.6 % (0.9-11.2); Lymphocytes Absolute Auto 0.83 K/mm3 (0.9-3.2); Mean Corpuscular HGB Conc 32.6 g/dl (32-36); Mean Corpuscular Hemoglobin 30.6 pg (26-34); Mean Corpuscular Volume 93.9 fl (80-100); Nucleated Red Blood Cells Absolute Auto 0.000 K/mm3 (0.0-0.012); Nucleated Red Blood Cells Perc 0.0 % (0.0-0.2); Platelet Count Result 149 k/mm3 (150-375); Red Blood Count 3.92 M/mm3 (4.6-6.20); White Blood Count 9.9 K/mm3 (4.5-10.0)
[2025-05-30 05:36] LABS: Anion Gap 5 mmol/L (4-12); Blood Urea Nitrogen 34 mg/dL (9-20); Calcium 8.9 mg/dL (8.4-10.2); Carbon Dioxide 29 mmol/L (22-30); Chloride 100 mmol/L (98-107); Estimated CRCL calculation 46 ml/min; Estimated Glomerular Filt Rate 52; Glucose 145 mg/dL (65-110); Potassium 3.8 mmol/L (3.4-5.0); Sodium 134 mmol/L (137-145)
[2025-05-30] MEDS: ACETAMINOPHEN 500 MG TABLET 1000 MG PO ×3 (09:22→23:01)
[2025-05-30] MEDS: ATORVASTATIN 40 MG TABLET 80 MG PO (09:22)
[2025-05-30] MEDS: PANTOPRAZOLE 40 MG TABLET PO (09:23)
[2025-05-30] MEDS: ONDANSETRON INJ 4 MG/2 ML VIAL (09:30)
[2025-05-30] MEDS: oxyCODONE HCL (*CRX) 5 MG TAB IR 10 MG PO ×2 (12:03→18:22)
--- NOTE | 2025-05-30 15:20 | PM.CNCAR ---
Assessment and Plan Assessment and plan (1) Preop cardiovascular exam: Code(s): Z01.810 - Encounter for preprocedural cardiovascular examination Status: Acute Assessment and Plan: Functional status>4 METs. Asymptomatic cardiac standpoint. May proceed to right hip surgery without further cardiac workup. Eliquis and Plavix are already on hold. (2) Coronary artery disease: Code(s): I25.10 - Atherosclerotic heart disease of [place] coronary artery without angina pectoris Status: Acute Assessment and Plan: Resume Plavix when OK after surgery since stent was relatively recent in Sep 2024. (3) PAF (paroxysmal atrial fibrillation): Code(s): I48.0 - Paroxysmal atrial fibrillation Status: Acute Assessment and Plan: In Sinus rhythm. Resume Eliquis when OK after surgery. (4) Hypertension: Code(s): I10 - Essential (primary) hypertension Status: Acute Assessment and Plan: Stable. (5) Hyperlipidemia: Code(s): E78.5 - Hyperlipidemia, unspecified Status: Acute Assessment and Plan: On Simvastatin. (6) S/P aortic valve replacement with bioprosthetic valve: Code(s): Z95.3 - Presence of xenogenic heart valve Status: Acute Assessment and Plan: Stable. History of Present Illness History of Present Illness Consult date/time: 05/30/25 15:20 Reason For Visit: RIGHT hip fracture Narrative: 84 yr old man presents after a fall and fracture of hip. He has a history of bioprosthetic AVR x 2, CAD with LAD stent in Sep 2024 for NSTEMI, strokes with residual lower extremity weakness, right carotid stenosis, PAF, dyslipidemia, hypertension, PAD. His regular video game tester is Dr. Sheth at [facility]. States he has a barn/garage he was walking and was clumsy and fell and fractured his right hip. Reason for consult is preop risk stratification. He states he is very active and can walk with his walker a few blocks without any problems prior to this fall. Denies chest pain, sob, orthopnea, PND, edema, dizziness, palpitations. Review of Systems Review of Systems: All systems reviewed & are unremarkable except as noted in HPI and below Constitutional: Constitutional: Reports as per HPI, Denies chills and Denies fever(s) Cardiovascular: Cardiovascular: Reports as per HPI, Denies chest pain and Denies irregular heart rhythm Respiratory: Respiratory: Reports as per HPI and Denies dyspnea Gastrointestinal: Gastrointestinal: Reports as per HPI and Denies abdominal pain Genitourinary: Genitourinary: Reports as per HPI and Denies dysuria Musculoskeletal: Musculoskeletal: Reports as per HPI and Reports arthralgias Neurologic: Reports as per HPI, Denies dizziness and Denies syncope [facility] Past Medical History Medical History (Updated 05/30/25 @ 15:24 by Isaiah Burk DO) Fracture of femoral neck, right, closed Lumbar stenosis Lumbar spondylosis Squamous cell carcinoma Paroxysmal atrial fibrillation Hyperlipidemia Hypertension Transient ischemic attack Diet-controlled type 2 diabetes mellitus Chronic obstructive pulmonary disease Chronic anticoagulation Heart failure with preserved ejection fraction EF 50 to 55% in 05/09/2024 Coronary artery disease Right-sided extracranial carotid artery stenosis Aortic valve disease status post bioprosthetic aortic valve replacemen Surgical History Surgical History (Updated 05/30/25 @ 15:26 by Isaiah Burk DO) History of cataract extraction History of coronary angioplasty with insertion of stent (2023) History of aortic valve replacement with bioprosthetic valve x2 Family History Family History Father Hypertension Heart disease Mother Cancer Diabetes mellitus Hypertension Social History Social History Social History: Surrogate medical decision maker: Jorge Pryor, spouse. Code status: Full code. Smoking status: Never smoker Alcohol intake: never Substance use: never Substance use type: does not use Do You Feel Safe in your Home?: Yes Lack of Transportation: No Lack of Food: Never True Current Housing: I Have Housing Concerned About Future Housing: No Difficulty Paying Gas/Electric Bills: No Difficulty Paying for Meds: No Currently Unemployed: No Education: Decline to Answer Difficulty w/ Childcare or Family Care: No Living arrangements: with family Occupation/Education: retired Spiritual care concerns: No Meds Home Medications and Allergies Home Medications ?Medication ?Instructions ?Recorded ?Confirmed ?Type carvedilol 25 mg tablet 25 mg PO BID #180 tabs 02/14/23 05/28/25 Rx lancets 30 gauge 12/27/23 05/28/25 History blood sugar diagnostic (Accu-Chek #100 ea 02/22/24 05/28/25 Rx Guide test strips) blood-glucose meter (Accu-Chek #1 ea 02/22/24 05/28/25 Rx Guide Glucose Meter) apixaban 5 mg tablet 5 mg PO BID #60 tabs 10/31/24 05/28/25 Rx atorvastatin 80 mg tablet 80 mg PO DAILY #30 tabs 10/31/24 05/28/25 Rx methocarbamol 500 mg tablet 500 mg PO BID PRN MUSCLE SPASM #10 11/18/24 05/28/25 Rx tabs melatonin 5 mg tablet 5 mg PO HS #90 tabs 11/26/24 05/28/25 Rx albuterol sulfate 90 mcg/actuation 1 inh inhalation Q4H PRN Shortness 12/16/24 05/28/25 Rx aerosol inhaler Of Breath Or Wheezing #8.5 grams losartan 25 mg tablet 25 mg PO DAILY #90 tabs 01/08/25 05/28/25 Rx pantoprazole 40 mg tablet,delayed 40 mg PO QAM 02/04/25 05/28/25 History release (Protonix) clopidogrel 75 mg tablet (Plavix) 75 mg PO DAILY #90 tabs 02/25/25 05/28/25 Rx potassium chloride 20 mEq 20 meq PO DAILY #90 tabs 03/17/25 05/28/25 Rx tablet,extended release (K-Tab) trazodone 50 mg tablet 50 mg PO QHS PRN insomnia #90 tabs 04/13/25 05/28/25 Rx paroxetine HCl 20 mg tablet 20 mg PO QAM #90 tabs 04/15/25 05/28/25 Rx furosemide 40 mg tablet 40 mg PO BID #90 tabs 04/21/25 05/28/25 Rx buspirone 5 mg tablet 5 mg PO Q12HR #180 tabs 05/04/25 05/28/25 Rx simvastatin 20 mg tablet 20 mg PO HS 05/28/25 05/28/25 History Allergies Allergy/AdvReac Type Severity Reaction Status Date / Time metformin AdvReac Intermediate Diarrhea Verified 05/28/25 17:37 Vital Signs Vital Signs - 24 hr 05/29/25 16:00 05/29/25 16:38 05/29/25 20:00 Temperature Pulse Rate 70 Respiratory Rate Blood Pressure Pulse Oximetry 97 Oxygen Delivery Room Air Room Air 05/29/25 20:00 05/29/25 20:07 05/29/25 20:45 Temperature 97.8 F Pulse Rate 80 75 75 Respiratory Rate 16 Blood Pressure 149/57 H Pulse Oximetry 95 Oxygen Delivery 05/29/25 21:21 05/30/25 00:00 05/30/25 04:00 Temperature Pulse Rate 78 84 Respiratory Rate Blood Pressure Pulse Oximetry 96 Oxygen Delivery Room Air 05/30/25 04:38 05/30/25 08:00 05/30/25 09:23 Temperature 98.2 F Pulse Rate 77 88 80 Respiratory Rate 16 Blood Pressure 146/58 H Pulse Oximetry 94 Oxygen Delivery 05/30/25 12:00 05/30/25 13:47 Temperature 97.4 F L Pulse Rate 71 59 L Respiratory Rate 16 Blood Pressure 113/63 Pulse Oximetry 94 Oxygen Delivery Exam Const: General: cooperative, healthy appearing and comfortable Resp: Auscultation: clear to auscultation bilaterally, no crackles, no rales, no rhonchi and no wheezes Cardio: Rate: regular rate Rhythm: regular rhythm Heart sounds: no murmurs Peripheral pulses: dorsalis pedis present GI: GI Palp: No abdominal tenderness and Yes Soft to palpation Neuro: General: oriented to person, oriented to place and oriented to time Extrem: Right lower extremity: no edema Left lower extremity: no edema Results Labs and Meds 05/30/25 04:34 05/30/25 04:34 Lab results: CBC 05/30/25 Range/Units 04:34 WBC 9.9 (4.5-10.0) K/mm3 RBC 3.92 L (4.6-6.20) M/mm3 Hgb 12.0 L (14.0-18.0) g/dL Hct 36.8 L (42.0-52.0) % Plt Count 149 L (150-375) k/mm3 Lymph # (Auto) 0.83 L (0.9-3.2) K/mm3 [place] # (Auto) 0.7 H (0.1-0.6) K/mm3 [place] # (Auto) 0.3 (0-0.3) K/mm3 Baso # (Auto) 0.1 (0.0-0.1) K/mm3 Comprehensive Metabolic Panel 05/30/25 Range/Units 04:34 Sodium 134 L (137-145) mmol/L Potassium 3.8 (3.4-5.0) mmol/L Chloride 100 (98-107) mmol/L Carbon Dioxide 29 (22-30) mmol/L BUN 34 H (9-20) mg/dL Creatinine 1.31 H (0.7-1.3) mg/dL Glucose 145 H (65-110) mg/dL Calcium 8.9 (8.4-10.2) mg/dL Intake and Output 05/29/25 05/30/25 05/30/25 23:59 07:59 15:59 Intake Total 240 360 Output Total 500 Balance -260 360 Intake: Oral 240 360 Output: Catheter Urine 500 External/Condom 500
--- NOTE | 2025-05-30 17:09 | PM.IMPN ---
Progress Note: A&P Assessment and Plan (1) Closed right femoral fracture: Code(s): S72.91XA - Unspecified fracture of right femur, initial encounter for closed fracture Status: Acute Plan 84-year-old male with PMH GERD, hypertension, anemia, AFib on Eliquis, CHF, aortic valve replacement, follows with Dr. Clifton at [facility], COPD, BPH, GIAN untreated due to noncompliance, [id number] diabetes mellitus, lung nodules, hyperlipidemia, claustrophobia, insomnia presents to [facility] ER on 05/28/2025 complaining of a fall with right hip pain. Patient is a former, he was walking in his barn when he lost his balance and fell onto his right buttock. Denies loss of consciousness or head strike, he has had right hip pain all day, he was walking around at , then he just sat in his car for multiple hours. 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 WBC 14.7, hemoglobin 13, sodium 132, BUN 32, serum creatinine 1.29. Right femur fracture Fall 05/28 Hip and Pelvis X-ray Mild anterior displacement and 30 degrees varus angulation of a transcervical fracture of the proximal right femur. Orthopedic surgery consulted in the ER, planning OR Sunday or Sunday Resumed diet Bedrest. Started heparin for DVT prophylaxis fall precautions OK for OR per cardiology recommendation Acute Pain Scheduled tylenol 1000mg TID, added oxycodone 10mg q4 prn --Dialudid prn Placed on 2L O2 for comfort after dilaudid, weaned to 1L Acute respiratory failure Placed on 2L O2 after dose of dilaudid. Back on RA 05/28 Chest xray 1. Bilateral diffuse increased interstitial pattern with peribronchial cuffing consistent with likely congestive heart failure related mild pulmonary edema. Differential would include pneumonia. 2. Cardiomegaly. --Repeat Chest x-ray in AM. --Follow CBC, improving off antibiotics SAMIR Ddx includes prerenal, cardiorenal, other. Reports he might not have been drinking as much morning prior to admission Holding lasix 40 BID, resume in AM. Creatinine 1.29<1.59>1.31 Losartan 25--resume 12.5 mg tomorrow Follow daily BMP UA no evidence of infection. Na, Urea, Creatinine pending Elevated WBC Mild elevation 14.7>12.5>9.9 05/28 Chest xray 1. Bilateral diffuse increased interstitial pattern with peribronchial cuffing consistent with likely congestive heart failure related mild pulmonary edema. Differential would include pneumonia. 2. Cardiomegaly. procalcitonin normal --Monitor off antibiotics CAD Hx CHF Recent stent 09/2024 Holding plavix for OR. Restart when ok with surgery since stent was relatively recent 05/19/24 TTE LVEF 50-55% dyskinesis ventricular septum Afib Hx bioprosthetic aortic valve Holding Apixaban Follows with Dr. Sheth Start heparin for DVT prophylaxis pending OR GIAN Continue CPAP hs Diet: Consistent Carbohydrate SCDs. Heparin for DVT prophylaxis. Saline lock IV. Full code. Time Spent With Patient Time: 57 minutes Subjective Date/time seen: 05/30/25 17:09 Interval history: VSS. BP elevated. WBC elevated on admission, 14.7, improved without treatment. Chest x-ray showed mild pulmonary edema vs pneumonia. No recent fevers. He reports problems with balance since stroke a year ago. 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 No acute distress Eyes - PERRLA, EOM intact ENT - No thrush, No erythema Neck - No noticeable or palpable swelling Lymph Nodes - No lymphadenopathy Cardiovascular - RRR no m/r/g, no JVD Lungs: Clear to auscultation, No wheezing, use of accessory muscles, no crackles or wheezes. Skin - Skin warm and dry, no wounds or rashes Abdomen - Normal bowel sounds, abdomen soft and nontender Extremities - No edema, cyanosis or clubbing Musculoskeletal - 5/5 strength, normal range of motion, no swollen or erythematous joints. Neurological ? Alert and oriented x 3, Mild Left facial weakness Psych: Normal mood and affect Objective Data Vital Signs Vital Signs: Vital Signs - 24 hr 05/29/25 20:00 05/29/25 20:00 05/29/25 20:07 Temperature 97.8 F Pulse Rate 80 75 Respiratory Rate 16 Blood Pressure 149/57 H Pulse Oximetry 95 Oxygen Delivery Room Air 05/29/25 20:45 05/29/25 21:21 05/30/25 00:00 Temperature Pulse Rate 75 78 Respiratory Rate Blood Pressure Pulse Oximetry 96 Oxygen Delivery Room Air 05/30/25 04:00 05/30/25 04:38 05/30/25 08:00 Temperature 98.2 F Pulse Rate 84 77 88 Respiratory Rate 16 Blood Pressure 146/58 H Pulse Oximetry 94 Oxygen Delivery 05/30/25 09:23 05/30/25 12:00 05/30/25 13:47 Temperature 97.4 F L Pulse Rate 80 71 59 L Respiratory Rate 16 Blood Pressure 113/63 Pulse Oximetry 94 Oxygen Delivery Intake/Output Intake/Output: Intake & Output 05/27/25 05/28/25 05/29/25 05/30/25 23:59 23:59 23:59 23:59 Intake Total 480 360 Output Total 500 Balance -20 360 Meds/Results Medications: Active Medications Generic Name Dose Route Start Last Admin Trade Name Freq PRN Reason Stop Dose Admin Acetaminophen 1,000 mg 05/30/25 16:30 Acetaminophen 500 Mg Tablet PO Q6HR THOMPSON Albuterol 1 puff 05/29/25 08:56 Albuterol Sulfate (*Sp) Aerosol 1 Puff INHALATION Q4H PRN Shortness Of Breath Or Wheezing Atorvastatin Calcium 80 mg 05/29/25 11:15 05/30/25 09:22 Atorvastatin 40 Mg Tablet PO 80 mg DAILY THOMPSON Administration Buspirone HCl 5 mg 05/29/25 09:00 05/30/25 09:22 Buspirone Hcl 5 Mg Tablet PO 5 mg Q12HR THOMPSON Administration Carvedilol 25 mg 05/29/25 21:00 05/30/25 09:23 Carvedilol 25 Mg Tablet PO 25 mg Q12HR THOMPSON Administration Heparin Sodium (Porcine) 5,000 units 05/29/25 22:00 05/30/25 05:24 Heparin Sodium 5,000 Units/Ml Vial SUB-Q 5,000 units Q8HR THOMPSON Administration Hydromorphone HCl 0.5 mg 05/28/25 20:12 05/30/25 09:21 Hydromorphone Hcl Inj (*Crx) 1 Mg/Ml Syr IV PUSH 0.5 mg Q3H PRN Administration Pain Rated 7-10 Methocarbamol 500 mg 05/29/25 08:56 Methocarbamol 500 Mg Tablet PO BID PRN Muscle Spasm Ondansetron HCl 4 mg 05/30/25 09:30 Ondansetron Inj 4 Mg/2 Ml Vial IV PUSH Q6H PRN Nausea And Vomiting Oxycodone HCl 10 mg 05/30/25 10:13 05/30/25 12:03 Oxycodone Hcl (*Crx) 5 Mg Tab Ir PO 10 mg Q4H PRN Administration 1st line for pain Pantoprazole Sodium 40 mg 05/29/25 09:00 05/30/25 09:23 Pantoprazole 40 Mg Tablet PO 40 mg QAM THOMPSON Administration Paroxetine HCl 20 mg 05/29/25 09:00 05/30/25 09:23 Paroxetine 20 Mg Tablet PO 20 mg QAM THOMPSON Administration Radiology Results: ITS Impressions Hip/Pelvis X-Ray 05/28/25 18:04 IMPRESSION: 1. Mild anterior displacement and 30 degrees varus angulation of a transcervical fracture of the proximal right femur. Head CT 05/28/25 19:14 IMPRESSION: 1. No fracture or acute intracranial process. 2. 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 Chest X-Ray 05/28/25 20:32 IMPRESSION: 1. Bilateral diffuse increased interstitial pattern with peribronchial cuffing consistent with likely congestive heart failure related mild pulmonary edema. Differential would include pneumonia. 2. Cardiomegaly. Labs Labs: Laboratory Results - last 24 hr 05/29/25 05/30/25 20:18 04:34 WBC 9.9 RBC 3.92 L Hgb 12.0 L Hct 36.8 L MCV 93.9 MCH 30.6 MCHC 32.6 RDW 15.1 H Plt Count 149 L MPV 11.0 H Immature Gran % (Auto) 0.6 H Neut % (Auto) 80.3 H Lymph % (Auto) 8.4 L [place] % (Auto) 7.4 Eos % (Auto) 2.7 Baso % (Auto) 0.6 Lymph # (Auto) 0.83 L [place] # (Auto) 0.7 H Eos # (Auto) 0.3 Baso # (Auto) 0.1 Abs Immat Gran (auto) 0.06 H Absolute Neuts (auto) 7.9 H Absolute Nucleated RBC 0.000 Nucleated RBC % 0.0 % Immature Plt Fraction 5.6 Sodium 134 L Potassium 3.8 Chloride 100 Carbon Dioxide 29 Anion Gap 5 BUN 34 H Creatinine 1.31 H Estim Creat Clear Calc 46 Estimated GFR 52 L Glucose 145 H Calcium 8.9 Ur Random Sodium 35 Ur Random Urea 812 Quality VTE Prophylaxis VTE prophylaxis: mechanical ordered and pharmacologic ordered Hospitalist MIPS Advance Care Plan I have confirmed that the patient's Advanced Care Plan is present, code status is documented, or surrogate decision maker is listed in patient medical record.: Yes Medication Reconciliation I have utilized all available resources to obtain, update and review the patients current medications (includes all prescriptions, OTC, herbals, cannabis, and nutritional supplements).: Yes
[2025-05-30] MEDS: FUROSEMIDE 40 MG TABLET PO (18:23)
[2025-05-30] MEDS: SENNA/DOCUSATE SODIUM TABLET 2 TAB PO (20:33)
[2025-05-31] VITALS (13 sets, daily range): BP systolic 135–185; BP diastolic 48–69; PULSE 65–88; RESP 16–18; TEMP 36.4–37; O2SAT 88–97
[2025-05-31] MEDS: ACETAMINOPHEN 500 MG TABLET 1000 MG PO ×3 (05:07→18:00)
[2025-05-31 05:30] LABS: Hematocrit 35.7 % (42.0-52.0); Hemoglobin 11.7 g/dL (14.0-18.0); Immature Granulocyte Percent A 0.5 % (0-0.5); Immature Platelet Fraction Pct 5.9 % (0.9-11.2); Lymphocytes Absolute Auto 0.97 K/mm3 (0.9-3.2); Mean Corpuscular HGB Conc 32.8 g/dl (32-36); Mean Corpuscular Hemoglobin 30.9 pg (26-34); Mean Corpuscular Volume 94.2 fl (80-100); Nucleated Red Blood Cells Absolute Auto 0.000 K/mm3 (0.0-0.012); Nucleated Red Blood Cells Perc 0.0 % (0.0-0.2); Platelet Count Result 143 k/mm3 (150-375); Red Blood Count 3.79 M/mm3 (4.6-6.20); White Blood Count 7.9 K/mm3 (4.5-10.0)
[2025-05-31 05:49] LABS: Anion Gap 6 mmol/L (4-12); Blood Urea Nitrogen 34 mg/dL (9-20); Calcium 8.5 mg/dL (8.4-10.2); Carbon Dioxide 28 mmol/L (22-30); Chloride 101 mmol/L (98-107); Estimated CRCL calculation 47 ml/min; Estimated Glomerular Filt Rate 53; Glucose 134 mg/dL (65-110); Potassium 3.8 mmol/L (3.4-5.0); Sodium 135 mmol/L (137-145)
[2025-05-31] MEDS: oxyCODONE HCL (*CRX) 5 MG TAB IR PO ×2 (06:05→13:26)
--- NOTE | 2025-05-31 08:30 | P.PNCA_ITS ---
Progress Note: A&P Assessment and Plan (1) Preop cardiovascular exam: Code(s): Z01.810 - Encounter for preprocedural cardiovascular examination Status: Acute Assessment and Plan: Functional status: Questionable. Asymptomatic cardiac standpoint. Patient is at intermediate cardiac arrest given questionable functional status and overall risk factors. May proceed to right hip surgery without further cardiac workup. Eliquis and Plavix are already on hold. (2) Coronary artery disease: Code(s): I25.10 - Atherosclerotic heart disease of [place] coronary artery without angina pectoris Status: Acute Assessment and Plan: Resume Plavix when OK after surgery since stent was relatively recent in Sep 2024. His regular knife operator is Dr. Sheth at [facility] and needs to keep regular f/u with him. (3) PAF (paroxysmal atrial fibrillation): Code(s): I48.0 - Paroxysmal atrial fibrillation Status: Acute Assessment and Plan: In Sinus rhythm. Resume Eliquis when OK after surgery. (4) Hypertension: Code(s): I10 - Essential (primary) hypertension Status: Acute Assessment and Plan: Stable. (5) Hyperlipidemia: Code(s): E78.5 - Hyperlipidemia, unspecified Status: Acute Assessment and Plan: On Simvastatin. (6) S/P aortic valve replacement with bioprosthetic valve: Code(s): Z95.3 - Presence of xenogenic heart valve Status: Acute Assessment and Plan: Stable. Subjective Date/time seen: 05/31/25 08:30 Interval history: Denies chest pain or sob. He thinks he can walk several blocks with his walker (due to his stroke and leg weakness), but his daughter had told nurse that he can only walk 1/2 block. Exam Const: General: cooperative, healthy appearing and comfortable Orientation/consciousness: oriented to person, oriented to place and oriented to time Resp: Auscultation: clear to auscultation bilaterally, no crackles, no rales, no rhonchi and no wheezes Cardio: Rate: regular rate Rhythm: regular rhythm Heart sounds: no murmurs Peripheral pulses: dorsalis pedis present Neuro: General: oriented to person, oriented to place and oriented to time Extrem: Right lower extremity: no edema Left lower extremity: no edema Objective Data Vital Signs Vital Signs: Vital Signs - 24 hr 05/30/25 09:23 05/30/25 12:00 05/30/25 13:47 Temperature 97.4 F L Pulse Rate 80 71 59 L Respiratory Rate 16 Blood Pressure 113/63 Pulse Oximetry 94 Oxygen Delivery 05/30/25 16:00 05/30/25 20:00 05/30/25 20:20 Temperature Pulse Rate 61 71 Respiratory Rate Blood Pressure Pulse Oximetry Oxygen Delivery Room Air 05/30/25 20:24 05/30/25 20:33 05/30/25 21:09 Temperature 98.3 F Pulse Rate 67 67 Respiratory Rate 20 Blood Pressure 136/63 Pulse Oximetry 94 95 Oxygen Delivery Room Air 05/31/25 00:00 05/31/25 04:00 05/31/25 05:41 Temperature 98.6 F Pulse Rate 65 73 69 Respiratory Rate 16 Blood Pressure 162/67 H Pulse Oximetry 96 Oxygen Delivery Intake/Output Intake/Output: Intake & Output 05/28/25 05/29/25 05/30/25 05/31/25 23:59 23:59 23:59 23:59 Intake Total 480 560 640 Output Total 500 350 600 Balance -20 210 40 Meds/Results Medications: Active Medications Generic Name Dose Route Start Last Admin Trade Name Freq PRN Reason Stop Dose Admin Acetaminophen 1,000 mg 05/30/25 16:30 05/31/25 05:07 Acetaminophen 500 Mg Tablet PO 1,000 mg Q6HR THOMPSON Administration Albuterol 1 puff 05/29/25 08:56 Albuterol Sulfate (*Sp) Aerosol 1 Puff INHALATION Q4H PRN Shortness Of Breath Or Wheezing Atorvastatin Calcium 80 mg 05/29/25 11:15 05/30/25 09:22 Atorvastatin 40 Mg Tablet PO 80 mg DAILY THOMPSON Administration Bisacodyl 5 mg 05/31/25 09:00 Bisacodyl 5 Mg Tablet Ec PO QAM THOMPSON Bisacodyl 10 mg 05/31/25 21:00 Bisacodyl 10 Mg Suppository RECTAL Q72H THOMPSON Buspirone HCl 5 mg 05/29/25 09:00 05/30/25 20:33 Buspirone Hcl 5 Mg Tablet PO 5 mg Q12HR THOMPSON Administration Carvedilol 25 mg 05/29/25 21:00 05/30/25 20:33 Carvedilol 25 Mg Tablet PO 25 mg Q12HR THOMPSON Administration Furosemide 40 mg 05/30/25 17:25 05/30/25 18:23 Furosemide 40 Mg Tablet PO 40 mg BID THOMPSON Administration Heparin Sodium (Porcine) 5,000 units 05/29/25 22:00 05/31/25 05:08 Heparin Sodium 5,000 Units/Ml Vial SUB-Q 5,000 units Q8HR THOMPSON Administration Hydromorphone HCl 0.5 mg 05/28/25 20:12 05/30/25 09:21 Hydromorphone Hcl Inj (*Crx) 1 Mg/Ml Syr IV PUSH 0.5 mg Q3H PRN Administration Pain Rated 7-10 Losartan Potassium 12.5 mg 05/31/25 09:00 Losartan Potassium 12.5 Mg Tablet PO DAILY THOMPSON Methocarbamol 500 mg 05/29/25 08:56 Methocarbamol 500 Mg Tablet PO BID PRN Muscle Spasm Ondansetron HCl 4 mg 05/30/25 09:30 Ondansetron Inj 4 Mg/2 Ml Vial IV PUSH Q6H PRN Nausea And Vomiting Oxycodone HCl 10 mg 05/30/25 10:13 05/30/25 18:22 Oxycodone Hcl (*Crx) 5 Mg Tab Ir PO 10 mg Q4H PRN Administration 1st line for pain Oxycodone HCl 5 mg 05/30/25 18:51 05/31/25 06:05 Oxycodone Hcl (*Crx) 5 Mg Tab Ir PO 5 mg Q4H PRN Administration Pain Rated 4-6 Pantoprazole Sodium 40 mg 05/29/25 09:00 05/30/25 09:23 Pantoprazole 40 Mg Tablet PO 40 mg QAM THOMPSON Administration Paroxetine HCl 20 mg 05/29/25 09:00 05/30/25 09:23 Paroxetine 20 Mg Tablet PO 20 mg QAM THOMPSON Administration Polyethylene Glycol 17 gm 05/30/25 21:00 05/30/25 20:33 Polyethylene Glycol 3350 17 Gm Powd.Pack PO 17 gm BID THOMPSON Administration Senna/Docusate Sodium 2 tab 05/30/25 21:00 05/30/25 20:33 Senna/Docusate Sodium Tablet PO 2 tab HS THOMPSON Administration Radiology Results: ITS Impressions Hip/Pelvis X-Ray 05/28/25 18:04 IMPRESSION: 1. Mild anterior displacement and 30 degrees varus angulation of a transcervical fracture of the proximal right femur. Head CT 05/28/25 19:14 IMPRESSION: 1. No fracture or acute intracranial process. 2. 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 Chest X-Ray 05/28/25 20:32 IMPRESSION: 1. Bilateral diffuse increased interstitial pattern with peribronchial cuffing consistent with likely congestive heart failure related mild pulmonary edema. Differential would include pneumonia. 2. Cardiomegaly. Labs Labs: Laboratory Results - last 24 hr 05/29/25 05/31/25 20:18 04:54 WBC 7.9 RBC 3.79 L Hgb 11.7 L Hct 35.7 L MCV 94.2 MCH 30.9 MCHC 32.8 RDW 15.0 H Plt Count 143 L MPV 11.3 H Immature Gran % (Auto) 0.5 Neut % (Auto) 71.9 Lymph % (Auto) 12.2 L [place] % (Auto) 10.2 H Eos % (Auto) 4.7 H Baso % (Auto) 0.5 Lymph # (Auto) 0.97 [place] # (Auto) 0.8 H Eos # (Auto) 0.4 H Baso # (Auto) 0.0 Abs Immat Gran (auto) 0.04 H Absolute Neuts (auto) 5.7 Absolute Nucleated RBC 0.000 Nucleated RBC % 0.0 % Immature Plt Fraction 5.9 Sodium 135 L Potassium 3.8 Chloride 101 Carbon Dioxide 28 Anion Gap 6 BUN 34 H Creatinine 1.29 Estim Creat Clear Calc 47 Estimated GFR 53 L Glucose 134 H Calcium 8.5 Ur Random Creatinine 94.8
[2025-05-31] MEDS: LOSARTAN POTASSIUM 12.5 MG TABLET PO ×2 (09:12→16:15)
[2025-05-31] MEDS: BISACODYL 5 MG TABLET EC PO (09:12)
[2025-05-31] MEDS: ATORVASTATIN 40 MG TABLET 80 MG PO (09:13)
[2025-05-31] MEDS: PANTOPRAZOLE 40 MG TABLET PO (09:14)
[2025-05-31] MEDS: FUROSEMIDE 40 MG TABLET PO ×2 (09:14→16:15)
--- NOTE | 2025-05-31 13:10 | PM.PNORT ---
Progress Note: A&P Assessment and Plan (1) Fracture of femoral neck, right, closed: Qualifiers: Encounter type: initial encounter Qualified Code(s): S72.001A - Fracture of unspecified part of neck of right femur, initial encounter for closed fracture Code(s): S72.001A - Fracture of unspecified part of neck of right femur, initial encounter for closed fracture Status: Acute Assessment and Plan: DISCUSSED PLAN OF RIGHT HIP HEMIARTHROPLASTY WITH BIPOLAR PROSTHESIS WITH PATIENT AND . WE WILL PROCEED WHEN HE IS CLEARED BY INTERNAL MEDICINE SERVICES. HISTORY, EXAM AND RADIOGRAPHS REVIEWED WITH THE PATIENT. REFERRING PHYSICIAN RECORDS AND IMAGES REVIEWED. CONDITION, NATURE, ETIOLOGY AND COURSE OF NATURAL HISTORY REVIEWED. CONSERVATIVE AND OPERATIVE TREATMENT OPTIONS REVIEWED WELL THE RISKS AND BENEFITS OF EACH. DISCUSSED NONOPERATIVE AND OPERATIVE TREATMENT OPTIONS WITH THE PATIENT. THE PATIENT'S QUESTIONS WERE ANSWERED. THE PATIENT DESIRES OPERATIVE TREATMENT. DISCUSSED ___RIGHT HIP HEMIARTHROPLASTY . RISKS OF SURGERY INCLUDING BUT NOT LIMITED TO NEUROVASCULAR DAMAGE, WOUND COMPLICATIONS, BLOOD CLOT, PULMONARY EMBOLUS, STROKE, MS, ANESTHETIC RISKS UP TO AND INCLUDING WERE REVIEWED. CONTINUED PAIN AND POSSIBLE DYSFUNCTION WERE EXPLAINED. NO GUARANTEES WERE OFFERED. THE PATIENT UNDERSTANDS AND WISHES TO PROCEED. Subjective Subjective Date/Time Seen: 05/31/25 13:10 Interval history: RIGHT FEMORAL NECK FRACTURE DISPLACED. HISTORY OF ANTICOAGULATION. NO NEW COMPLAINTS TODAY. HE IS DAY 3 OFF OF ELIQUIS Exam Extrem: Other: VSS AFEBRILE. RIGHT HIP PAIN WITH PROM, OTHER NOVOA CALF SOFT NON TENDER, NV INTACT Objective Data Vital Signs Vital Signs: Vital Signs - 24 hr 05/30/25 13:47 05/30/25 16:00 05/30/25 20:00 Temperature 36.3 C L Pulse Rate 59 L 61 71 Respiratory Rate 16 Blood Pressure 113/63 Pulse Oximetry 94 Oxygen Delivery 05/30/25 20:20 05/30/25 20:24 05/30/25 20:33 Temperature 36.8 C Pulse Rate 67 67 Respiratory Rate 20 Blood Pressure 136/63 Pulse Oximetry 94 Oxygen Delivery Room Air 05/30/25 21:09 05/31/25 00:00 05/31/25 04:00 Temperature Pulse Rate 65 73 Respiratory Rate Blood Pressure Pulse Oximetry 95 Oxygen Delivery Room Air 05/31/25 05:41 05/31/25 09:10 05/31/25 09:11 Temperature 37.0 C 36.5 C Pulse Rate 69 80 81 Respiratory Rate 16 16 Blood Pressure 162/67 H 135/48 L Pulse Oximetry 96 96 Oxygen Delivery 05/31/25 09:14 05/31/25 09:14 Temperature Pulse Rate 81 76 Respiratory Rate 16 Blood Pressure Pulse Oximetry 96 Oxygen Delivery Room Air Intake/Output Intake/Output: Intake & Output 05/28/25 05/29/25 05/30/25 05/31/25 23:59 23:59 23:59 23:59 Intake Total 480 560 640 Output Total 500 350 600 Balance -20 210 40 Meds/Results Medications: Active Medications Generic Name Dose Route Start Last Admin Trade Name Freq PRN Reason Stop Dose Admin Acetaminophen 1,000 mg 05/30/25 16:30 05/31/25 11:17 Acetaminophen 500 Mg Tablet PO 1,000 mg Q6HR THOMPSON Administration Albuterol 1 puff 05/29/25 08:56 Albuterol Sulfate (*Sp) Aerosol 1 Puff INHALATION Q4H PRN Shortness Of Breath Or Wheezing Atorvastatin Calcium 80 mg 05/29/25 11:15 05/31/25 09:13 Atorvastatin 40 Mg Tablet PO 80 mg DAILY THOMPSON Administration Bisacodyl 5 mg 05/31/25 09:00 05/31/25 09:12 Bisacodyl 5 Mg Tablet Ec PO 5 mg QAM THOMPSON Administration Bisacodyl 10 mg 05/31/25 21:00 Bisacodyl 10 Mg Suppository RECTAL Q72H THOMPSON Buspirone HCl 5 mg 05/29/25 09:00 05/31/25 09:14 Buspirone Hcl 5 Mg Tablet PO 5 mg Q12HR THOMPSON Administration Carvedilol 25 mg 05/29/25 21:00 05/31/25 09:11 Carvedilol 25 Mg Tablet PO 25 mg Q12HR THOMPSON Administration Furosemide 40 mg 05/30/25 17:25 05/31/25 09:14 Furosemide 40 Mg Tablet PO 40 mg BID THOMPSON Administration Heparin Sodium (Porcine) 5,000 units 05/29/25 22:00 05/31/25 05:08 Heparin Sodium 5,000 Units/Ml Vial SUB-Q 5,000 units Q8HR THOMPSON Administration Hydromorphone HCl 0.5 mg 05/28/25 20:12 05/30/25 09:21 Hydromorphone Hcl Inj (*Crx) 1 Mg/Ml Syr IV PUSH 0.5 mg Q3H PRN Administration Pain Rated 7-10 Losartan Potassium 12.5 mg 05/31/25 09:00 05/31/25 09:12 Losartan Potassium 12.5 Mg Tablet PO 12.5 mg DAILY THOMPSON Administration Methocarbamol 500 mg 05/29/25 08:56 Methocarbamol 500 Mg Tablet PO BID PRN Muscle Spasm Ondansetron HCl 4 mg 05/30/25 09:30 Ondansetron Inj 4 Mg/2 Ml Vial IV PUSH Q6H PRN Nausea And Vomiting Oxycodone HCl 10 mg 05/30/25 10:13 05/30/25 18:22 Oxycodone Hcl (*Crx) 5 Mg Tab Ir PO 10 mg Q4H PRN Administration 1st line for pain Oxycodone HCl 5 mg 05/30/25 18:51 05/31/25 06:05 Oxycodone Hcl (*Crx) 5 Mg Tab Ir PO 5 mg Q4H PRN Administration Pain Rated 4-6 Pantoprazole Sodium 40 mg 05/29/25 09:00 05/31/25 09:14 Pantoprazole 40 Mg Tablet PO 40 mg QAM THOMPSON Administration Paroxetine HCl 20 mg 05/29/25 09:00 05/31/25 09:12 Paroxetine 20 Mg Tablet PO 20 mg QAM THOMPSON Administration Polyethylene Glycol 17 gm 05/30/25 21:00 05/31/25 09:14 Polyethylene Glycol 3350 17 Gm Powd.Pack PO 17 gm BID THOMPSON Administration Senna/Docusate Sodium 2 tab 05/30/25 21:00 05/30/25 20:33 Senna/Docusate Sodium Tablet PO 2 tab HS THOMPSON Administration Radiology Results: ITS Impressions Hip/Pelvis X-Ray 05/28/25 18:04 IMPRESSION: 1. Mild anterior displacement and 30 degrees varus angulation of a transcervical fracture of the proximal right femur. Head CT 05/28/25 19:14 IMPRESSION: 1. No fracture or acute intracranial process. 2. 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 Chest X-Ray 05/28/25 20:32 IMPRESSION: 1. Bilateral diffuse increased interstitial pattern with peribronchial cuffing consistent with likely congestive heart failure related mild pulmonary edema. Differential would include pneumonia. 2. Cardiomegaly. Labs Labs: Laboratory Results - last 24 hr 05/29/25 05/31/25 20:18 04:54 WBC 7.9 RBC 3.79 L Hgb 11.7 L Hct 35.7 L MCV 94.2 MCH 30.9 MCHC 32.8 RDW 15.0 H Plt Count 143 L MPV 11.3 H Immature Gran % (Auto) 0.5 Neut % (Auto) 71.9 Lymph % (Auto) 12.2 L [place] % (Auto) 10.2 H Eos % (Auto) 4.7 H Baso % (Auto) 0.5 Lymph # (Auto) 0.97 [place] # (Auto) 0.8 H Eos # (Auto) 0.4 H Baso # (Auto) 0.0 Abs Immat Gran (auto) 0.04 H Absolute Neuts (auto) 5.7 Absolute Nucleated RBC 0.000 Nucleated RBC % 0.0 % Immature Plt Fraction 5.9 Sodium 135 L Potassium 3.8 Chloride 101 Carbon Dioxide 28 Anion Gap 6 BUN 34 H Creatinine 1.29 Estim Creat Clear Calc 47 Estimated GFR 53 L Glucose 134 H Calcium 8.5 Ur Random Creatinine 94.8
--- NOTE | 2025-05-31 13:47 | PM.IMPN ---
Progress Note: A&P Assessment and Plan (1) Closed right femoral fracture: Code(s): S72.91XA - Unspecified fracture of right femur, initial encounter for closed fracture Status: Acute (2) Acute exacerbation of chronic heart failure: Code(s): I50.9 - Heart failure, unspecified Status: Acute (3) Acute respiratory failure: Code(s): J96.00 - Acute respiratory failure, unspecified whether with hypoxia or hypercapnia Status: Acute (4) SAMIR (acute kidney injury): Code(s): N17.9 - Acute kidney failure, unspecified Status: Acute (5) Acute pain: Code(s): R52 - Pain, unspecified Status: Acute (6) Elevated WBC count: Code(s): D72.829 - Elevated white blood cell count, unspecified Status: Acute Plan 84-year-old male with PMH GERD, hypertension, anemia, AFib on Eliquis, CHF, aortic valve replacement, follows with Dr. Clifton at [facility], COPD, BPH, GIAN untreated due to noncompliance, [id number] diabetes mellitus, lung nodules, hyperlipidemia, claustrophobia, insomnia presents to [facility] ER on 05/28/2025 complaining of a fall with right hip pain. Patient is a former, he was walking in his barn when he lost his balance and fell onto his right buttock. Denies loss of consciousness or head strike, he has had right hip pain all day, he was walking around at 1st, then he just sat in his car for multiple hours. 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 WBC 14.7, hemoglobin 13, sodium 132, BUN 32, serum creatinine 1.29. Patient's is also in the hospital. Multiple members of the family are sick. Right femur fracture Fall 05/28 Hip and Pelvis X-ray Mild anterior displacement and 30 degrees varus angulation of a transcervical fracture of the proximal right femur. Orthopedic surgery consulted in the ER, planning OR Sunday or Sunday. Per family, patient is active, walks about half a block. Resumed diet Bedrest. Started heparin for DVT prophylaxis fall precautions Cardiology consulted, OK for OR OK for OR from medicine perspective. Acute Pain Scheduled tylenol 1000mg TID, added oxycodone 10mg q4 prn --Dialudid prn Placed on 2L O2 for comfort after dilaudid, weaned to 1L Acute respiratory failure Placed on 2L O2 after dose of dilaudid. Back on RA 05/28 Chest xray 1. Bilateral diffuse increased interstitial pattern with peribronchial cuffing consistent with likely congestive heart failure related mild pulmonary edema. Differential would include pneumonia. 2. Cardiomegaly. --Repeat Chest x-ray showing moderate pulmonary venous congestion. --Follow CBC, improving off antibiotics --40mg IV lasix today CAD CHF exacerbation Recent stent 09/2024 Holding plavix for OR. Restart when ok with surgery since stent was relatively recent 05/19/24 TTE LVEF 50-55% dyskinesis ventricular septum SAMIR Ddx includes prerenal, cardiorenal, other. Reports he might not have been drinking as much morning prior to admission Held lasix 40 BID, resumed 05/31. Lasix 40mg x1. Hold when NPO Creatinine 1.29<1.59>1.31>1.29 Losartan 25--resumed 12.5<25 Follow daily BMP UA no evidence of infection. Na, Urea, Creatinine pending Elevated WBC Mild elevation 14.7>12.5>9.9 05/28 Chest xray 1. Bilateral diffuse increased interstitial pattern with peribronchial cuffing consistent with likely congestive heart failure related mild pulmonary edema. Differential would include pneumonia. 2. Cardiomegaly. procalcitonin normal --Monitoring off antibiotics --Repeat portal chest x-ray Afib Hx bioprosthetic aortic valve Holding Apixaban Follows with Dr. Sheth Start heparin for DVT prophylaxis pending OR Constipation Hasn't had a BM since admission Miralax BID, Senna BID bisacodyl suppository Hx Stroke Hx CVA about a year ago. 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 Has chronic left facial weakness. 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 Mild left facial droop and slightly slurred speech --Restart plavix or aspirin post op GIAN Continue CPAP hs Diet: Consistent Carbohydrate SCDs. Heparin for DVT prophylaxis. Saline lock IV. Full code. Time Spent With Patient Time: 57 minutes Subjective Date/time seen: 05/31/25 13:47 Interval history: Pain improved. Hasn't had a BM yet Planning OR soon. Cardiology ok to proceed with right hip surgery. No acute medical concerns from medicine perspective Last dose of Eliquis in am prior to admission 10 AM (patient reports he takes his medications regularly and takes his meds early in the morning) Admitted at 5pm Review of Systems Review of Systems: All systems reviewed & are unremarkable except as noted in HPI and below (Subjective) Exam Narrative: General - Awake and alert. No acute distress Eyes - PERRLA, EOM intact ENT - No thrush, No erythema Neck - No noticeable or palpable swelling Lymph Nodes - No lymphadenopathy Cardiovascular - RRR no m/r/g, no JVD Lungs: Clear to auscultation, No wheezing, use of accessory muscles, no crackles or wheezes. Skin - Skin warm and dry, no wounds or rashes Abdomen - Normal bowel sounds, abdomen soft and nontender Extremities - No edema, cyanosis or clubbing Musculoskeletal - 5/5 strength, Pain to right hip Neurological ? Alert and oriented x 3, Mild Left facial weakness, mildly slurred speech, left facial droop chronic (per discussion with patient and family) Psych: Normal mood and affect Objective Data Vital Signs Vital Signs: Vital Signs - 24 hr 05/30/25 16:00 05/30/25 20:00 05/30/25 20:20 Temperature Pulse Rate 61 71 Respiratory Rate Blood Pressure Pulse Oximetry Oxygen Delivery Room Air 05/30/25 20:24 05/30/25 20:33 05/30/25 21:09 Temperature 98.3 F Pulse Rate 67 67 Respiratory Rate 20 Blood Pressure 136/63 Pulse Oximetry 94 95 Oxygen Delivery Room Air 05/31/25 00:00 05/31/25 04:00 05/31/25 05:41 Temperature 98.6 F Pulse Rate 65 73 69 Respiratory Rate 16 Blood Pressure 162/67 H Pulse Oximetry 96 Oxygen Delivery 05/31/25 09:10 05/31/25 09:11 05/31/25 09:14 Temperature 97.7 F Pulse Rate 80 81 81 Respiratory Rate 16 16 Blood Pressure 135/48 L Pulse Oximetry 96 96 Oxygen Delivery Room Air 05/31/25 09:14 05/31/25 13:44 Temperature 97.8 F Pulse Rate 76 73 Respiratory Rate 16 Blood Pressure 151/65 H Pulse Oximetry 97 Oxygen Delivery Intake/Output Intake/Output: Intake & Output 05/28/25 05/29/25 05/30/25 05/31/25 23:59 23:59 23:59 23:59 Intake Total 480 560 880 Output Total 500 350 600 Balance -20 210 280 Meds/Results Medications: Active Medications Generic Name Dose Route Start Last Admin Trade Name Freq PRN Reason Stop Dose Admin Acetaminophen 1,000 mg 05/30/25 16:30 05/31/25 11:17 Acetaminophen 500 Mg Tablet PO 1,000 mg Q6HR THOMPSON Administration Albuterol 1 puff 05/29/25 08:56 Albuterol Sulfate (*Sp) Aerosol 1 Puff INHALATION Q4H PRN Shortness Of Breath Or Wheezing Atorvastatin Calcium 80 mg 05/29/25 11:15 05/31/25 09:13 Atorvastatin 40 Mg Tablet PO 80 mg DAILY THOMPSON Administration Bisacodyl 5 mg 05/31/25 09:00 05/31/25 09:12 Bisacodyl 5 Mg Tablet Ec PO 5 mg QAM THOMPSON Administration Bisacodyl 10 mg 05/31/25 21:00 Bisacodyl 10 Mg Suppository RECTAL Q72H THOMPSON Buspirone HCl 5 mg 05/29/25 09:00 05/31/25 09:14 Buspirone Hcl 5 Mg Tablet PO 5 mg Q12HR THOMPSON Administration Carvedilol 25 mg 05/29/25 21:00 05/31/25 09:11 Carvedilol 25 Mg Tablet PO 25 mg Q12HR THOMPSON Administration Furosemide 40 mg 05/30/25 17:25 05/31/25 09:14 Furosemide 40 Mg Tablet PO 40 mg BID TOHMPSON Administration Heparin Sodium (Porcine) 5,000 units 05/29/25 22:00 05/31/25 05:08 Heparin Sodium 5,000 Units/Ml Vial SUB-Q 5,000 units Q8HR THOMPSON Administration Hydromorphone HCl 0.5 mg 05/28/25 20:12 05/30/25 09:21 Hydromorphone Hcl Inj (*Crx) 1 Mg/Ml Syr IV PUSH 0.5 mg Q3H PRN Administration Pain Rated 7-10 Losartan Potassium 12.5 mg 05/31/25 09:00 05/31/25 09:12 Losartan Potassium 12.5 Mg Tablet PO 12.5 mg DAILY THOMPSON Administration Methocarbamol 500 mg 05/29/25 08:56 Methocarbamol 500 Mg Tablet PO BID PRN Muscle Spasm Ondansetron HCl 4 mg 05/30/25 09:30 Ondansetron Inj 4 Mg/2 Ml Vial IV PUSH Q6H PRN Nausea And Vomiting Oxycodone HCl 10 mg 05/30/25 10:13 05/30/25 18:22 Oxycodone Hcl (*Crx) 5 Mg Tab Ir PO 10 mg Q4H PRN Administration 1st line for pain Oxycodone HCl 5 mg 05/30/25 18:51 05/31/25 13:26 Oxycodone Hcl (*Crx) 5 Mg Tab Ir PO 5 mg Q4H PRN Administration Pain Rated 4-6 Pantoprazole Sodium 40 mg 05/29/25 09:00 05/31/25 09:14 Pantoprazole 40 Mg Tablet PO 40 mg QAM THOMPSON Administration Paroxetine HCl 20 mg 05/29/25 09:00 05/31/25 09:12 Paroxetine 20 Mg Tablet PO 20 mg QAM THOMPSON Administration Polyethylene Glycol 17 gm 05/30/25 21:00 05/31/25 09:14 Polyethylene Glycol 3350 17 Gm Powd.Pack PO 17 gm BID THOMPSON Administration Senna/Docusate Sodium 2 tab 05/30/25 21:00 05/30/25 20:33 Senna/Docusate Sodium Tablet PO 2 tab HS THOMPSON Administration Radiology Results: ITS Impressions Hip/Pelvis X-Ray 05/28/25 18:04 IMPRESSION: 1. Mild anterior displacement and 30 degrees varus angulation of a transcervical fracture of the proximal right femur. Head CT 05/28/25 19:14 IMPRESSION: 1. No fracture or acute intracranial process. 2. 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 Chest X-Ray 05/28/25 20:32 IMPRESSION: 1. Bilateral diffuse increased interstitial pattern with peribronchial cuffing consistent with likely congestive heart failure related mild pulmonary edema. Differential would include pneumonia. 2. Cardiomegaly. Labs Labs: Laboratory Results - last 24 hr 05/29/25 05/31/25 20:18 04:54 WBC 7.9 RBC 3.79 L Hgb 11.7 L Hct 35.7 L MCV 94.2 MCH 30.9 MCHC 32.8 RDW 15.0 H Plt Count 143 L MPV 11.3 H Immature Gran % (Auto) 0.5 Neut % (Auto) 71.9 Lymph % (Auto) 12.2 L [place] % (Auto) 10.2 H Eos % (Auto) 4.7 H Baso % (Auto) 0.5 Lymph # (Auto) 0.97 [place] # (Auto) 0.8 H Eos # (Auto) 0.4 H Baso # (Auto) 0.0 Abs Immat Gran (auto) 0.04 H Absolute Neuts (auto) 5.7 Absolute Nucleated RBC 0.000 Nucleated RBC % 0.0 % Immature Plt Fraction 5.9 Sodium 135 L Potassium 3.8 Chloride 101 Carbon Dioxide 28 Anion Gap 6 BUN 34 H Creatinine 1.29 Estim Creat Clear Calc 47 Estimated GFR 53 L Glucose 134 H Calcium 8.5 Ur Random Creatinine 94.8 Quality VTE Prophylaxis VTE prophylaxis: mechanical ordered and pharmacologic ordered Hospitalist MIPS Advance Care Plan I have confirmed that the patient's Advanced Care Plan is present, code status is documented, or surrogate decision maker is listed in patient medical record.: Yes Medication Reconciliation I have utilized all available resources to obtain, update and review the patients current medications (includes all prescriptions, OTC, herbals, cannabis, and nutritional supplements).: Yes
[2025-05-31] MEDS: HYDROmorphone HCL INJ (*CRX) 1 MG/ML SYR 0.5 MG IV PUSH (15:18)
[2025-05-31] MEDS: SENNA/DOCUSATE SODIUM TABLET 2 TAB PO (16:15)
[2025-05-31] MEDS: oxyCODONE HCL (*CRX) 5 MG TAB IR 10 MG PO (20:26)
[2025-05-31] MEDS: FUROSEMIDE INJ 40 MG/4 ML VIAL IV PUSH (20:31)
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
[2025-05-31] MEDS: HYDROmorphone HCL INJ (*CRX) 1 MG/ML SYR IV PUSH (21:28)
[2025-05-31] MEDS: CELECOXIB 200 MG CAPSULE PO (21:29)
[2025-05-31] MEDS: diazePAM (*CRX) 5 MG TABLET PO (21:30)
[2025-06-01] VITALS (11 sets, daily range): BP systolic 152–181; BP diastolic 51–70; PULSE 61–108; RESP 17–18; TEMP 36.4–36.7; O2SAT 94–98
[2025-06-01] MEDS: ACETAMINOPHEN 500 MG TABLET 1000 MG PO ×5 (00:31→23:35)
[2025-06-01 05:35] LABS: Hematocrit 36.7 % (42.0-52.0); Hemoglobin 11.7 g/dL (14.0-18.0); Immature Granulocyte Percent A 0.6 % (0-0.5); Lymphocytes Absolute Auto 1.40 K/mm3 (0.9-3.2); Mean Corpuscular HGB Conc 31.9 g/dl (32-36); Mean Corpuscular Hemoglobin 30.5 pg (26-34); Mean Corpuscular Volume 95.8 fl (80-100); Nucleated Red Blood Cells Absolute Auto 0.000 K/mm3 (0.0-0.012); Nucleated Red Blood Cells Perc 0.0 % (0.0-0.2); Platelet Count Result 156 k/mm3 (150-375); Red Blood Count 3.83 M/mm3 (4.6-6.20); White Blood Count 6.8 K/mm3 (4.5-10.0)
[2025-06-01 06:00] LABS: Anion Gap 7 mmol/L (4-12); Blood Urea Nitrogen 33 mg/dL (9-20); Calcium 8.6 mg/dL (8.4-10.2); Carbon Dioxide 30 mmol/L (22-30); Chloride 100 mmol/L (98-107); Estimated CRCL calculation 43 ml/min; Estimated Glomerular Filt Rate 48; Glucose 128 mg/dL (65-110); Potassium 3.7 mmol/L (3.4-5.0); Sodium 137 mmol/L (137-145)
[2025-06-01] MEDS: PANTOPRAZOLE 40 MG TABLET PO (08:17)
[2025-06-01] MEDS: HYDROmorphone HCL INJ (*CRX) 1 MG/ML SYR IV PUSH (09:16)
--- NOTE | 2025-06-01 12:43 | P.PNIM_ITS ---
Progress Note: A&P Assessment and Plan (1) Closed right femoral fracture: Code(s): S72.91XA - Unspecified fracture of right femur, initial encounter for closed fracture Status: Acute (2) Acute exacerbation of chronic heart failure: Code(s): I50.9 - Heart failure, unspecified Status: Acute (3) Acute respiratory failure: Code(s): J96.00 - Acute respiratory failure, unspecified whether with hypoxia or hypercapnia Status: Acute (4) SAMIR (acute kidney injury): Code(s): N17.9 - Acute kidney failure, unspecified Status: Acute (5) Acute pain: Code(s): R52 - Pain, unspecified Status: Acute (6) Elevated WBC count: Code(s): D72.829 - Elevated white blood cell count, unspecified Status: Acute Plan 84-year-old male with PMH GERD, hypertension, anemia, AFib on Eliquis, CHF, aortic valve replacement, follows with Dr. Clifton at [facility], COPD, BPH, GIAN untreated due to noncompliance, [id number] diabetes mellitus, lung nodules, hyperlipidemia, claustrophobia, insomnia presents to [facility] ER on 05/28/2025 complaining of a fall with right hip pain. Patient is a former, he was walking in his barn when he lost his balance and fell onto his right buttock. Denies loss of consciousness or head strike, he has had right hip pain all day, he was walking around at 1st, then he just sat in his car for multiple hours. 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 WBC 14.7, hemoglobin 13, sodium 132, BUN 32, serum creatinine 1.29. Patient's is also in the hospital. Multiple members of the family are sick. Right femur fracture Fall 05/28 Hip and Pelvis X-ray Mild anterior displacement and 30 degrees varus angulation of a transcervical fracture of the proximal right femur. Orthopedic surgery consulted in the ER, planning today or tomorrow. Per family, patient is active, walks about half a block. Bedrest. Started heparin for DVT prophylaxis fall precautions Cardiology consulted, Okay for OR. Okay for OR from medicine perspective. Acute Pain Scheduled tylenol 1000mg TID, added oxycodone 10mg q4 prn --Dialudid prn Placed on 2L O2 for comfort after dilaudid, weaned to RA Acute respiratory failure Placed on 2L O2 after dose of dilaudid. Back on RA 05/28 Chest xray 1. Bilateral diffuse increased interstitial pattern with peribronchial cuffing consistent with likely congestive heart failure related mild pulmonary edema. Differential would include pneumonia. 2. Cardiomegaly. --Repeat Chest x-ray showing moderate pulmonary venous congestion. --Follow CBC, improving off antibiotics --Lasix 40 mg BID CAD CHF exacerbation Recent stent 09/2024 Holding plavix for OR. Restart when ok with surgery since stent was relatively recent 05/19/24 TTE LVEF 50-55% dyskinesis ventricular septum SAMIR Ddx includes prerenal, cardiorenal, other. Reports he might not have been drinking as much morning prior to admission Held lasix 40 BID, resumed 05/31. Lasix 40mg x1. Hold when NPO Creatinine 1.29<1.59>1.31>1.29<1.4 Losartan 25 mg daily Follow daily BMP UA no evidence of infection. Na, Urea, Creatinine pending Elevated WBC Mild elevation 14.7>12.5>9.9 05/28 Chest xray 1. Bilateral diffuse increased interstitial pattern with peribronchial cuffing consistent with likely congestive heart failure related mild pulmonary edema. Differential would include pneumonia.2. Cardiomegaly. procalcitonin normal --Monitoring off antibiotics --Repeat portal chest x-ray Afib Hx bioprosthetic aortic valve Holding Apixaban Follows with Dr. Sheth Start heparin for DVT prophylaxis pending OR Constipation Hasn't had a BM since admission Miralax BID, Senna BID bisacodyl suppository Hx Stroke Hx CVA about a year ago. 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 Has chronic left facial weakness. 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 Mild left facial droop and slightly slurred speech --Restart plavix or aspirin post op GIAN Continue CPAP hs Diet: Consistent Carbohydrate SCDs. Heparin for DVT prophylaxis. Saline lock IV. Full code. Subjective Date/time seen: 06/01/25 12:43 Interval history: Patient in quite a bit of pain when I a evaluated him today. Hoping for his surgery to be done today. It is unknown if the surgery will be today or tomorrow. Other than right hip pain he is in no other complaints. Exam Narrative: GENERAL: Comfortable, no acute distress HENMT: moist mucous membranes RESPIRATORY: clear to auscultation, no increased respiratory effort CARDIO: Regular rate and rhythm, murmur present. GI: soft, nontender, bowel sounds present SKIN/EXTREMITIES: Right hip pain, limited movement, mild bruising over right hip. NEURO: PROM intact, answers questions appropriately, A&O x4 Objective Data Vital Signs Vital Signs: Vital Signs - 24 hr 05/31/25 13:44 05/31/25 16:00 05/31/25 20:00 Temperature 97.8 F Pulse Rate 73 74 Respiratory Rate 16 Blood Pressure 151/65 H Pulse Oximetry 97 Oxygen Delivery Room Air 05/31/25 20:00 05/31/25 21:00 05/31/25 21:28 Temperature 97.5 F L 97.5 F L Pulse Rate 88 88 88 Respiratory Rate 18 18 Blood Pressure 185/69 H 185/69 H Pulse Oximetry 88 L 88 L Oxygen Delivery 05/31/25 21:29 06/01/25 00:00 06/01/25 04:00 Temperature Pulse Rate 88 79 62 Respiratory Rate Blood Pressure Pulse Oximetry Oxygen Delivery 06/01/25 04:53 06/01/25 08:00 06/01/25 08:17 Temperature 97.5 F L Pulse Rate 65 72 Respiratory Rate 17 Blood Pressure 152/59 H Pulse Oximetry 94 Oxygen Delivery Room Air 06/01/25 12:00 Temperature Pulse Rate 65 Respiratory Rate Blood Pressure Pulse Oximetry Oxygen Delivery Intake/Output Intake/Output: Intake & Output 05/29/25 05/30/25 05/31/25 06/01/25 23:59 23:59 23:59 23:59 Intake Total 262 692 3425 350 Output Total 859 380 8331 725 Balance -20 210 -385 -236 Meds/Results Medications: Active Medications Generic Name Dose Route Start Last Admin Trade Name Freq PRN Reason Stop Dose Admin Acetaminophen 1,000 mg 05/30/25 16:30 06/01/25 11:51 Acetaminophen 500 Mg Tablet PO 1,000 mg Q6HR THOMPSON Administration Albuterol 1 puff 05/29/25 08:56 Albuterol Sulfate (*Sp) Aerosol 1 Puff INHALATION Q4H PRN Shortness Of Breath Or Wheezing Atorvastatin Calcium 80 mg 05/29/25 11:15 06/01/25 09:23 Atorvastatin 40 Mg Tablet PO Not Given DAILY [facility] Bisacodyl 5 mg 05/31/25 09:00 06/01/25 09:23 Bisacodyl 5 Mg Tablet Ec PO Not Given QAM [facility] Bisacodyl 10 mg 05/31/25 21:00 05/31/25 20:31 Bisacodyl 10 Mg Suppository RECTAL Not Given Q72H [facility] Buspirone HCl 5 mg 05/29/25 09:00 06/01/25 08:17 Buspirone Hcl 5 Mg Tablet PO 5 mg Q12HR [facility] Administration Carvedilol 25 mg 05/29/25 21:00 06/01/25 08:17 Carvedilol 25 Mg Tablet PO 25 mg Q12HR THOMPSON Administration Celecoxib 200 mg 05/31/25 17:00 06/01/25 09:23 Celecoxib 200 Mg Capsule PO Not Given BIDWM [facility] Diazepam 5 mg 05/31/25 21:16 05/31/25 21:30 Diazepam (*Crx) 5 Mg Tablet PO 5 mg BID PRN Administration Muscle Spasm Furosemide 40 mg 05/30/25 17:25 06/01/25 09:24 Furosemide 40 Mg Tablet PO Not Given BID [facility] Heparin Sodium (Porcine) 5,000 units 05/29/25 22:00 06/01/25 05:42 Heparin Sodium 5,000 Units/Ml Vial SUB-Q 5,000 units Q8HR [facility] Administration Hydralazine HCl 10 mg 05/31/25 17:00 06/01/25 11:51 Hydralazine 10 Mg Tablet PO 06/01/25 16:59 10 mg QID [facility] Administration Hydromorphone HCl 0.5 mg 05/28/25 20:12 05/31/25 15:18 Hydromorphone Hcl Inj (*Crx) 1 Mg/Ml Syr IV PUSH 0.5 mg Q3H PRN Administration Pain Rated 4-6 Hydromorphone HCl 1 mg 05/31/25 21:16 06/01/25 09:16 Hydromorphone Hcl Inj (*Crx) 1 Mg/Ml Syr IV PUSH 1 mg Q3H PRN Administration Pain Rated 7-10 Losartan Potassium 25 mg 10/13/25 09:00 06/01/25 09:24 Losartan Potassium 25 Mg Tablet PO Not Given DAILY THOMPSON Methocarbamol 500 mg 05/29/25 08:56 Methocarbamol 500 Mg Tablet PO BID PRN Muscle Spasm Ondansetron HCl 4 mg 05/30/25 09:30 Ondansetron Inj 4 Mg/2 Ml Vial IV PUSH Q6H PRN Nausea And Vomiting Oxycodone HCl 10 mg 05/30/25 10:13 05/31/25 20:26 Oxycodone Hcl (*Crx) 5 Mg Tab Ir PO 10 mg Q4H PRN Administration 1st line for pain Oxycodone HCl 5 mg 05/30/25 18:51 05/31/25 13:26 Oxycodone Hcl (*Crx) 5 Mg Tab Ir PO 5 mg Q4H PRN Administration Pain Rated 4-6 Pantoprazole Sodium 40 mg 05/29/25 09:00 06/01/25 08:17 Pantoprazole 40 Mg Tablet PO 40 mg QAM THOMPSON Administration Paroxetine HCl 20 mg 05/29/25 09:00 06/01/25 08:17 Paroxetine 20 Mg Tablet PO 20 mg QAM THOMPSON Administration Polyethylene Glycol 17 gm 05/30/25 21:00 06/01/25 09:24 Polyethylene Glycol 3350 17 Gm Powd.Pack PO Not Given BID THOMPSON Senna/Docusate Sodium 2 tab 05/31/25 17:00 06/01/25 09:23 Senna/Docusate Sodium Tablet PO Not Given BID [facility] Radiology Results: ITS Impressions Hip/Pelvis X-Ray 05/28/25 18:04 IMPRESSION: 1. Mild anterior displacement and 30 degrees varus angulation of a transcervical fracture of the proximal right femur. Head CT 05/28/25 19:14 IMPRESSION: 1. No fracture or acute intracranial process. 2. 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 Chest X-Ray 05/31/25 17:02 Impression: CHF Labs Labs: Laboratory Results - last 24 hr 06/01/25 04:37 WBC 6.8 RBC 3.83 L Hgb 11.7 L Hct 36.7 L MCV 95.8 MCH 30.5 MCHC 31.9 L RDW 15.0 H Plt Count 156 MPV 11.4 H Immature Gran % (Auto) 0.6 H Neut % (Auto) 60.8 Lymph % (Auto) 20.7 [place] % (Auto) 12.6 H Eos % (Auto) 4.7 H Baso % (Auto) 0.6 Lymph # (Auto) 1.40 [place] # (Auto) 0.9 H Eos # (Auto) 0.3 Baso # (Auto) 0.0 Abs Immat Gran (auto) 0.04 H Absolute Neuts (auto) 4.1 Absolute Nucleated RBC 0.000 Nucleated RBC % 0.0 Sodium 137 Potassium 3.7 Chloride 100 Carbon Dioxide 30 Anion Gap 7 BUN 33 H Creatinine 1.41 H Estim Creat Clear Calc 43 Estimated GFR 48 L Glucose 128 H Calcium 8.6
[2025-06-01] MEDS: FUROSEMIDE 40 MG TABLET PO (16:24)
[2025-06-01] MEDS: CELECOXIB 200 MG CAPSULE PO (16:24)
[2025-06-02] VITALS (18 sets, daily range): BP systolic 150–190; BP diastolic 58–90; PULSE 58–88; RESP 12–20; TEMP 36.6–37.2; O2SAT 94–100
[2025-06-02 05:31] LABS: Hematocrit 36.0 % (42.0-52.0); Hemoglobin 11.8 g/dL (14.0-18.0); Immature Granulocyte Percent A 0.6 % (0-0.5); Lymphocytes Absolute Auto 1.10 K/mm3 (0.9-3.2); Mean Corpuscular HGB Conc 32.8 g/dl (32-36); Mean Corpuscular Hemoglobin 30.4 pg (26-34); Mean Corpuscular Volume 92.8 fl (80-100); Nucleated Red Blood Cells Absolute Auto 0.000 K/mm3 (0.0-0.012); Nucleated Red Blood Cells Perc 0.0 % (0.0-0.2); Platelet Count Result 171 k/mm3 (150-375); Red Blood Count 3.88 M/mm3 (4.6-6.20); White Blood Count 7.2 K/mm3 (4.5-10.0)
[2025-06-02 05:47] LABS: Anion Gap 7 mmol/L (4-12); Blood Urea Nitrogen 34 mg/dL (9-20); Calcium 8.7 mg/dL (8.4-10.2); Carbon Dioxide 28 mmol/L (22-30); Chloride 100 mmol/L (98-107); Estimated CRCL calculation 50 ml/min; Estimated Glomerular Filt Rate 58; Glucose 128 mg/dL (65-110); Potassium 3.7 mmol/L (3.4-5.0); Sodium 135 mmol/L (137-145)
[2025-06-02] MEDS: ACETAMINOPHEN 500 MG TABLET 1000 MG PO ×3 (05:47→23:14)
[2025-06-02] MEDS: HYDROmorphone HCL INJ (*CRX) 1 MG/ML SYR 0.5 MG IV PUSH (06:16)
--- NOTE | 2025-06-02 07:46 | PM.IMPN ---
Progress Note: A&P Assessment and Plan (1) Closed right femoral fracture: Code(s): S72.91XA - Unspecified fracture of right femur, initial encounter for closed fracture Status: Acute (2) Acute exacerbation of chronic heart failure: Code(s): I50.9 - Heart failure, unspecified Status: Acute (3) Acute respiratory failure: Code(s): J96.00 - Acute respiratory failure, unspecified whether with hypoxia or hypercapnia Status: Acute (4) SAMIR (acute kidney injury): Code(s): N17.9 - Acute kidney failure, unspecified Status: Acute (5) Acute pain: Code(s): R52 - Pain, unspecified Status: Acute (6) Elevated WBC count: Code(s): D72.829 - Elevated white blood cell count, unspecified Status: Acute Plan 84-year-old male with PMH GERD, hypertension, anemia, AFib on Eliquis, CHF, aortic valve replacement, follows with Dr. Clifton at [facility], COPD, BPH, GIAN untreated due to noncompliance, [id number] diabetes mellitus, lung nodules, hyperlipidemia, claustrophobia, insomnia presents to [facility] ER on 05/28/2025 complaining of a fall with right hip pain. Patient is a former, he was walking in his barn when he lost his balance and fell onto his right buttock. Denies loss of consciousness or head strike, he has had right hip pain all day, he was walking around at 1st, then he just sat in his car for multiple hours. 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 WBC 14.7, hemoglobin 13, sodium 132, BUN 32, serum creatinine 1.29. Patient's is also in the hospital. Multiple members of the family are sick. Right femur fracture Fall 05/28 Hip and Pelvis X-ray Mild anterior displacement and 30 degrees varus angulation of a transcervical fracture of the proximal right femur. Orthopedic surgery consulted in the ER, planning today or tomorrow. Per family, patient is active, walks about half a block. Bedrest. Started heparin for DVT prophylaxis fall precautions Cardiology consulted, Okay for OR. Okay for OR from medicine perspective. Planned for surgery today Acute Pain Scheduled tylenol 1000mg TID, added oxycodone 10mg q4 prn --Dialudid prn Placed on 2L O2 for comfort after dilaudid, weaned to RA Acute respiratory failure Placed on 2L O2 after dose of dilaudid. Back on RA 05/28 Chest xray 1. Bilateral diffuse increased interstitial pattern with peribronchial cuffing consistent with likely congestive heart failure related mild pulmonary edema. Differential would include pneumonia. 2. Cardiomegaly. --Repeat Chest x-ray showing moderate pulmonary venous congestion. --Follow CBC, improving off antibiotics --Lasix 40 mg BID CAD CHF exacerbation Recent stent 09/2024 Holding plavix for OR. Restart when ok with surgery since stent was relatively recent 05/19/24 TTE LVEF 50-55% dyskinesis ventricular septum SAMIR Ddx includes prerenal, cardiorenal, other. Reports he might not have been drinking as much morning prior to admission Held lasix 40 BID, resumed 05/31. Lasix 40mg x1. Hold when NPO Creatinine 1.29<1.59>1.31>1.29<1.4 Losartan 25 mg daily Follow daily BMP UA no evidence of infection. Na, Urea, Creatinine pending Elevated WBC Mild elevation 14.7>12.5>9.9 05/28 Chest xray 1. Bilateral diffuse increased interstitial pattern with peribronchial cuffing consistent with likely congestive heart failure related mild pulmonary edema. Differential would include pneumonia.2. Cardiomegaly. procalcitonin normal --Monitoring off antibiotics Afib Hx bioprosthetic aortic valve Holding Apixaban Follows with Dr. Sheth Start heparin for DVT prophylaxis pending OR Constipation Hasn't had a BM since admission Miralax BID, Senna BID bisacodyl suppository Hx Stroke Hx CVA about a year ago. 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 Has chronic left facial weakness. 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 Mild left facial droop and slightly slurred speech --Restart plavix or aspirin post op GIAN Continue CPAP hs Diet: Consistent Carbohydrate SCDs. Heparin for DVT prophylaxis. Saline lock IV. Full code. Subjective Date/time seen: 06/02/25 07:46 Interval history: no overnight events reported. Chart reviewed. Patient planned for surgery this afternoon. Pain is controlled Review of Systems Review of Systems: All systems reviewed & are unremarkable except as noted in HPI and below (Subjective) Exam Narrative: GENERAL: Comfortable, no acute distress HENMT: moist mucous membranes RESPIRATORY: clear to auscultation, no increased respiratory effort CARDIO: Regular rate and rhythm, murmur present. GI: soft, nontender, bowel sounds present SKIN/EXTREMITIES: Right hip pain, limited movement, mild bruising over right hip. NEURO: PROM intact, answers questions appropriately, A&O x4 Objective Data Vital Signs Vital Signs: Vital Signs - 24 hr 06/01/25 08:00 06/01/25 08:17 06/01/25 12:00 Temperature Pulse Rate 72 65 Respiratory Rate Blood Pressure Pulse Oximetry Oxygen Delivery Room Air 06/01/25 13:27 06/01/25 16:00 06/01/25 16:10 Temperature 97.6 F Pulse Rate 108 H 67 72 Respiratory Rate 18 Blood Pressure 153/51 H Pulse Oximetry 97 Oxygen Delivery 06/01/25 20:00 06/01/25 20:00 06/01/25 21:02 Temperature Pulse Rate 81 61 Respiratory Rate Blood Pressure Pulse Oximetry Oxygen Delivery Room Air 06/01/25 22:00 06/02/25 00:00 06/02/25 04:00 Temperature 98.1 F Pulse Rate 73 79 73 Respiratory Rate 18 Blood Pressure 181/70 H Pulse Oximetry 98 Oxygen Delivery 06/02/25 05:55 Temperature 97.8 F Pulse Rate 76 Respiratory Rate 17 Blood Pressure 171/74 H Pulse Oximetry 95 Oxygen Delivery Intake/Output Intake/Output: Intake & Output 05/30/25 05/31/25 06/01/25 06/02/25 23:59 23:59 23:59 23:59 Intake Total 560 1540 830 350 Output Total 350 1925 1225 700 Balance 210 385 -395 -350 Meds/Results Medications: Active Medications Generic Name Dose Route Start Last Admin Trade Name Freq PRN Reason Stop Dose Admin Acetaminophen 1,000 mg 05/30/25 16:30 06/02/25 05:47 Acetaminophen 500 Mg Tablet PO 1,000 mg Q6HR THOMPSON Administration Albuterol 1 puff 05/29/25 08:56 Albuterol Sulfate (*Sp) Aerosol 1 Puff INHALATION Q4H PRN Shortness Of Breath Or Wheezing Atorvastatin Calcium 80 mg 05/29/25 11:15 06/01/25 09:23 Atorvastatin 40 Mg Tablet PO Not Given DAILY [facility] Bisacodyl 5 mg 05/31/25 09:00 06/01/25 09:23 Bisacodyl 5 Mg Tablet Ec PO Not Given QAM [facility] Bisacodyl 10 mg 05/31/25 21:00 05/31/25 20:31 Bisacodyl 10 Mg Suppository RECTAL Not Given Q72H [facility] Buspirone HCl 5 mg 05/29/25 09:00 06/01/25 21:02 Buspirone Hcl 5 Mg Tablet PO 5 mg Q12HR THOMPSON Administration Carvedilol 25 mg 05/29/25 21:00 06/01/25 21:02 Carvedilol 25 Mg Tablet PO 25 mg Q12HR THOMPSON Administration Celecoxib 200 mg 05/31/25 17:00 06/01/25 16:24 Celecoxib 200 Mg Capsule PO 200 mg BIDWM [facility] Administration Sodium Chloride 38.7 ml/ 0 ml 06/02/25 11:00 Morphine Sulfate 2 mg/ INFILTRATE 06/02/25 11:01 Ropivacaine 200 mg/ ONCE ONE Epinephrine HCl 0.3 mg Diazepam 5 mg 05/31/25 21:16 05/31/25 21:30 Diazepam (*Crx) 5 Mg Tablet PO 5 mg BID PRN Administration Muscle Spasm Furosemide 40 mg 05/30/25 17:25 06/01/25 16:24 Furosemide 40 Mg Tablet PO 40 mg BID THOMPSON Administration Heparin Sodium (Porcine) 5,000 units 05/29/25 22:00 06/02/25 05:47 Heparin Sodium 5,000 Units/Ml Vial SUB-Q 5,000 units Q8HR THOMPSON Administration Hydromorphone HCl 0.5 mg 05/28/25 20:12 06/02/25 06:16 Hydromorphone Hcl Inj (*Crx) 1 Mg/Ml Syr IV PUSH 0.5 mg Q3H PRN Administration Pain Rated 4-6 Hydromorphone HCl 1 mg 05/31/25 21:16 06/01/25 09:16 Hydromorphone Hcl Inj (*Crx) 1 Mg/Ml Syr IV PUSH 1 mg Q3H PRN Administration Pain Rated 7-10 Tranexamic Acid/Sodium Chloride 1,000 mg in 100 mls @ 200 mls/hr 06/02/25 10:30 Tranexamic Acid 1,000mg/[id number] IVPB 06/02/25 10:59 ONCE ONE Cefazolin Sodium 2 gm/ Sodium 50 mls @ 100 mls/hr 06/02/25 10:30 Chloride IVPB 06/02/25 10:59 ONCE ONE Losartan Potassium 25 mg 06/01/25 09:00 06/01/25 09:24 Losartan Potassium 25 Mg Tablet PO Not Given DAILY [facility] Methocarbamol 500 mg 05/29/25 08:56 Methocarbamol 500 Mg Tablet PO BID PRN Muscle Spasm Ondansetron HCl 4 mg 05/30/25 09:30 Ondansetron Inj 4 Mg/2 Ml Vial IV PUSH Q6H PRN Nausea And Vomiting Oxycodone HCl 10 mg 05/30/25 10:13 05/31/25 20:26 Oxycodone Hcl (*Crx) 5 Mg Tab Ir PO 10 mg Q4H PRN Administration 1st line for pain Oxycodone HCl 5 mg 05/30/25 18:51 05/31/25 13:26 Oxycodone Hcl (*Crx) 5 Mg Tab Ir PO 5 mg Q4H PRN Administration Pain Rated 4-6 Pantoprazole Sodium 40 mg 05/29/25 09:00 06/01/25 08:17 Pantoprazole 40 Mg Tablet PO 40 mg QAM TH[facility]ON Administration Paroxetine HCl 20 mg 05/29/25 09:00 06/01/25 08:17 Paroxetine 20 Mg Tablet PO 20 mg QAM [facility] Administration Polyethylene Glycol 17 gm 05/30/25 21:00 06/01/25 16:31 Polyethylene Glycol 3350 17 Gm Powd.Pack PO Not Given BID THOM[facility]ON Senna/Docusate Sodium 2 tab 05/31/25 17:00 06/01/25 16:31 Senna/Docusate Sodium Tablet PO Not Given BID TH[facility] Radiology Results: ITS Impressions Hip/Pelvis X-Ray 05/28/25 18:04 IMPRESSION: 1. Mild anterior displacement and 30 degrees varus angulation of a transcervical fracture of the proximal right femur. Head CT 05/28/25 19:14 IMPRESSION: 1. No fracture or acute intracranial process. 2. 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 Chest X-Ray 05/31/25 17:02 Impression: CHF Labs Labs: Laboratory Results - last 24 hr 06/02/25 04:40 WBC 7.2 RBC 3.88 L Hgb 11.8 L Hct 36.0 L MCV 92.8 MCH 30.4 MCHC 32.8 RDW 14.7 H Plt Count 171 MPV 11.4 H Immature Gran % (Auto) 0.6 H Neut % (Auto) 69.5 Lymph % (Auto) 15.2 L [place] % (Auto) 10.0 H Eos % (Auto) 4.3 Baso % (Auto) 0.4 Lymph # (Auto) 1.10 [place] # (Auto) 0.7 H Eos # (Auto) 0.3 Baso # (Auto) 0.0 Abs Immat Gran (auto) 0.04 H Absolute Neuts (auto) 5.0 Absolute Nucleated RBC 0.000 Nucleated RBC % 0.0 Sodium 135 L Potassium 3.7 Chloride 100 Carbon Dioxide 28 Anion Gap 7 BUN 34 H Creatinine 1.20 Estim Creat Clear Calc 50 Estimated GFR 58 L Glucose 128 H Calcium 8.7
[2025-06-02] MEDS: PANTOPRAZOLE 40 MG TABLET PO (08:17)
--- NOTE | 2025-06-02 08:45 | WPDHPUPDATE1 ---
History and Physical Update Update Date/Time: 06/02/25 08:45 History and Physical has been reviewed, including an updated exam of the patient. There are NO changes in the patient's condition. Risks, benefits, and alternatives have been discussed and questions answered. Patient agrees to proceed with procedure.
--- NOTE | 2025-06-02 08:47 | PC.NURSE ---
Report called to Breanna DUMONT in Preop.
--- NOTE | 2025-06-02 10:19 | PC.NURSE ---
Patient left the unit for surgery via bed.
[2025-06-02] MEDS: fentaNYL CITRATE INJ (*CRX) 100 MCG/2 ML VIAL 25 MCG IV PUSH ×8 (13:18→17:38)
--- NOTE | 2025-06-02 13:23 | WPDANESEPPF ---
Anes - Initial Pre Proc Eval Procedure: Operation Date: 06/02/25 11:30 Proposed Procedures p Right Bipolar Hip Replacement - Phoenix Brewster MD Date/Time: 06/02/25 13:23 Surgeon: Daniel garcia Oca, MD Pre Op Diagnosis: RIGHT hip fracture Patient Data Age: 84 Gender: M Height: 1.83 m Weight: 104.8 kg Last Vital Signs Temp 36.8 C 06/02/25 10:25 Pulse 65 06/02/25 10:25 Resp 16 06/02/25 08:03 BP 156/58 H 06/02/25 10:25 Pulse Ox 97 06/02/25 10:25 O2 Del Method Room Air 06/02/25 10:25 O2 Flow Rate 1 05/29/25 09:50 Allergies Allergy/AdvReac Type Severity Reaction Status Date / Time metformin AdvReac Intermediate Diarrhea Verified 05/28/25 17:37 Home Medications ?Medication ?Instructions ?Recorded ?Confirmed ?Type carvedilol 25 mg tablet 25 mg PO BID #180 tabs 02/14/23 05/28/25 Rx lancets 30 gauge 12/27/23 05/28/25 History blood sugar diagnostic (Accu-Chek #100 ea 02/22/24 05/28/25 Rx Guide test strips) blood-glucose meter (Accu-Chek #1 ea 02/22/24 05/28/25 Rx Guide Glucose Meter) apixaban 5 mg tablet 5 mg PO BID #60 tabs 10/31/24 05/28/25 Rx atorvastatin 80 mg tablet 80 mg PO DAILY #30 tabs 10/31/24 05/28/25 Rx methocarbamol 500 mg tablet 500 mg PO BID PRN MUSCLE SPASM #10 11/18/24 05/28/25 Rx tabs melatonin 5 mg tablet 5 mg PO HS #90 tabs 11/26/24 05/28/25 Rx albuterol sulfate 90 mcg/actuation 1 inh inhalation Q4H PRN Shortness 12/16/24 05/28/25 Rx aerosol inhaler Of Breath Or Wheezing #8.5 grams losartan 25 mg tablet 25 mg PO DAILY #90 tabs 01/08/25 05/28/25 Rx pantoprazole 40 mg tablet,delayed 40 mg PO QAM 02/04/25 05/28/25 History release (Protonix) clopidogrel 75 mg tablet (Plavix) 75 mg PO DAILY #90 tabs 02/25/25 05/28/25 Rx potassium chloride 20 mEq 20 meq PO DAILY #90 tabs 03/17/25 05/28/25 Rx tablet,extended release (K-Tab) trazodone 50 mg tablet 50 mg PO QHS PRN insomnia #90 tabs 04/13/25 05/28/25 Rx paroxetine HCl 20 mg tablet 20 mg PO QAM #90 tabs 04/15/25 05/28/25 Rx furosemide 40 mg tablet 40 mg PO BID #90 tabs 04/21/25 05/28/25 Rx buspirone 5 mg tablet 5 mg PO Q12HR #180 tabs 05/04/25 05/28/25 Rx simvastatin 20 mg tablet 20 mg PO HS 05/28/25 05/28/25 History Laboratory Tests 06/02/25 06/02/25 04:40 10:41 WBC 7.2 K/mm3 (4.5-10.0) RBC 3.88 L M/mm3 (4.6-6.20) Hgb 11.8 L g/dL (14.0-18.0) Hct 36.0 L % (42.0-52.0) MCV 92.8 fl (80-100) MCH 30.4 pg (26-34) MCHC 32.8 g/dl (32-36) RDW 14.7 H % (11.5-14.5) Plt Count 171 k/mm3 (150-375) MPV 11.4 H fl (7.4-10.4) Immature Gran % (Auto) 0.6 H % (0-0.5) Neut % (Auto) 69.5 % (45.5-73.1) Lymph % (Auto) 15.2 L % (18.3-44.2) [place] % (Auto) 10.0 H % (2.6-8.5) Eos % (Auto) 4.3 % (0-4.4) Baso % (Auto) 0.4 % (0.2-1.2) Lymph # (Auto) 1.10 K/mm3 (0.9-3.2) [place] # (Auto) 0.7 H K/mm3 (0.1-0.6) Eos # (Auto) 0.3 K/mm3 (0-0.3) Baso # (Auto) 0.0 K/mm3 (0.0-0.1) Abs Immat Gran (auto) 0.04 H K/mm3 (0.00-0.031) Absolute Neuts (auto) 5.0 K/mm3 (1.3-6.7) Absolute Nucleated RBC 0.000 K/mm3 (0.0-0.012) Nucleated RBC % 0.0 % (0.0-0.2) Sodium 135 L mmol/L (137-145) Potassium 3.7 mmol/L (3.4-5.0) Chloride 100 mmol/L (98-107) Carbon Dioxide 28 mmol/L (22-30) Anion Gap 7 mmol/L (4-12) BUN 34 H mg/dL (9-20) Creatinine 1.20 mg/dL (0.7-1.3) Estim Creat Clear Calc 50 ml/min Estimated GFR 58 L (59 - ) Glucose 128 H mg/dL (65-110) Calcium 8.7 mg/dL (8.4-10.2) Blood Type A Positive Antibody Screen Negative Patient hx anesthesia problems: none Family hx anesthesia problems: none Results Review: All pre-operative results and documents have been reviewed as part of the pre-operative evaluation. [facility] Past Medical History Medical History (Updated 05/31/25 @ 17:16 by Annika Montiel APRN) Fracture of femoral neck, right, closed Lumbar stenosis Lumbar spondylosis Squamous cell carcinoma Paroxysmal atrial fibrillation Hyperlipidemia Hypertension Transient ischemic attack Diet-controlled type 2 diabetes mellitus Chronic obstructive pulmonary disease Chronic anticoagulation Heart failure with preserved ejection fraction EF 50 to 55% in 05/09/2024 Coronary artery disease Right-sided extracranial carotid artery stenosis Aortic valve disease status post bioprosthetic aortic valve replacemen Surgical History Surgical History (Updated 05/30/25 @ 15:26 by Isaiah Burk DO) History of cataract extraction History of coronary angioplasty with insertion of stent (2023) History of aortic valve replacement with bioprosthetic valve x2 Family History Family History Father Hypertension Heart disease Mother Cancer Diabetes mellitus Hypertension Social History Social History Social History: Surrogate medical decision maker: Jorge Pryor, spouse. Code status: Full code. Smoking status: Never smoker Alcohol intake: never Substance use: never Substance use type: does not use Do You Feel Safe in your Home?: Yes Lack of Transportation: No Lack of Food: Never True Current Housing: I Have Housing Concerned About Future Housing: No Difficulty Paying Gas/Electric Bills: No Difficulty Paying for Meds: No Currently Unemployed: No Education: Decline to Answer Difficulty w/ Childcare or Family Care: No Living arrangements: with family Occupation/Education: retired Spiritual care concerns: No Anes - Eval Final PreProcedure Day of Procedure 06/02/25 13:23 Patient weight: obese Heart: regular rate and rhythm Lungs: clear to auscultation Airway: Mallampati scale class II Neurological: alert and oriented Last oral intake: >/= 8 hours ASA classification: IV Emergent: no Anesthetic plan: proceed Anesthesia type and monitoring: general ETT and standard monitoring Results Review: All pre-operative results and documents have been reviewed as part of the pre-operative evaluation. Informed Consent: The patient's anesthetic plan and its attendant risks and benefits were discussed with the patient/family/POA. Questions were solicited and answers provided to the satisfaction of the patient/family/POA.
[2025-06-02] MEDS: TRANEXAMIC ACID 1,000MG/ISO100 1,000 MG/100 ML BAG 200 MG IVPB (14:00)
[2025-06-02] MEDS: ceFAZolin 2 GM in SODIUM CHLORIDE 0.9% IV 50 ML 100 ML IVPB ×2 (14:44→23:14)
[2025-06-02] MEDS: SODIUM CHLORIDE 0.9% IV 38.7 ML, MORPHINE SULFATE INJ (*CRX) 2 MG, ROPivacaine HCL 1% 2... INFILTRATE (15:29)
[2025-06-02] MEDS: LACTATED RINGERS 1,000 ML 30 ML IV CONT ×2 (16:46)
--- NOTE | 2025-06-02 16:51 | W.PM.PROC2 ---
Procedure Note - Detailed Date of Procedure 06/02/25 Pre-op Diagnosis RIGHT hip fracture Post-op Diagnosis Same Procedure Performed RIGHT HIP HEMIARTHROPLASTY WITH BIPOLAR PROSTHESIS Surgeon Phoenix Brewster MD Anesthesia General Description of Procedure THE PATIENT WAS TAKEN TO THE OPERATING ROOM IN STABLE CONDITION. HE WAS PLACED IN THE LATERAL DECUBITUS AND THE RIGHT LOWER EXTREMITY WAS PREPPED AND DRAPED IN THE STERILE FASHION. INCISION WAS MADE IN THE POSTERIOR LATERAL SIDE OF THE HIP, DOWN TO THE FASCIA LAYER. THE FASCIA WAS INCISED. THE HIP WAS EXPOSED. THE SHORT EXTERNAL ROTATORS WERE EXPOSED AND THERE WAS A LARGE HEMATOMA. THE CAPSULE WAS INCISED EXPOSING THE FRACTURE. THE FEMORAL HEAD WAS REMOVED. IT MEASURED 52 MM. AN OSTEOTOMY WAS MADE TO THE FEMORAL NECK ABOUT 1 CM PROXIMAL TO THE LESSER TROCHANTER. NEXT THE FEMUR WAS PREPARED WITH INITIAL CANAL FINDER THEN SEQUENTIAL BROACHING TILL A #5 BROACH FIT WELL IN 15 OF ANTE VERSION. A +0 STANDARD OFFSET NECK BIPOLAR TRIAL IN A 52 MM SHELL WAS PLACED. THE SHUCK TEST WAS EXCELLENT AND THE STABILITY IN FLEXION AND ROTATION WAS EXCELLENT. LEG LENGTHS WERE GROSSLY EQUAL. TRIALS WERE REMOVED. AN SHELLY FRACTURE STEM #5 PRESS FIT STEM WAS PLACED WITH A STANDARD OFFSET IN 15 DEG OF ANTEVERSION. A +0 BIPOLAR HEAD NECK TRIAL WAS PLACED AGAIN. THE HIP WAS TRIALED AND THE STABILITY WAS EXCELLENT WERE THE LEG LENGTHS AND THE SHUCK TEST. NEXT A BIPOLAR HEAD NECK +0 IMPLANT WITH A 52 MM COBALT CHROME SHELL WAS PLACED AND TRIALED ONCE AGAIN SHOWING EXCELLENT STABILITY AND GROSSLY EQUAL LEG LENGTHS. THE WOUND WAS IRRIGATED WITH STERILE BETADINE AND WATER FOR 3 MIN. THEN WASHED AGAIN. THE CAPSULE AND THE EXTERNAL ROTATORS WERE APPROXIMATED WITH NUMBER 1 VICRYL. THE FASCIA WITH No 2 QUIL AND THE SUB CUTANEOUS LAYER WITH 2-0 ABSORBABLE SUTURE WITH A RUNNING 3-0 SUBCUTICULAR LAYER WITH STRATAFIX WELL. DERMABOND WAS PLACED AND STERILE DRESSING WAS APPLIED. PATIENT WAS PLACED BACK ON TO THE SUPINE POSITION AND WAS EXTUBATED. Estimated Blood Loss 250 Drains No Pathology None sent Complications No immediate complications Condition Stable Disposition PACU
--- NOTE | 2025-06-02 18:20 | PC.NURSE ---
patient returned back from his surgery
[2025-06-02] MEDS: CELECOXIB 200 MG CAPSULE PO (18:30)
[2025-06-02] MEDS: FUROSEMIDE 40 MG TABLET PO (18:30)
[2025-06-02] MEDS: SIMVASTATIN 20 MG TABLET PO (19:57)
[2025-06-02] MEDS: MELATONIN 5 MG TABLET PO (19:58)
[2025-06-02] MEDS: FAMOTIDINE 20 MG TABLET PO (19:59)
[2025-06-02] MEDS: HYDROmorphone HCL INJ (*CRX) 1 MG/ML SYR IV PUSH (20:04)
[2025-06-03] VITALS (11 sets, daily range): BP systolic 121–175; BP diastolic 43–86; PULSE 66–81; RESP 16–18; TEMP 36.6–37.3; O2SAT 97–98
[2025-06-03] MEDS: HYDROmorphone HCL INJ (*CRX) 1 MG/ML SYR IV PUSH ×3 (04:32→21:55)
[2025-06-03 05:15] LABS: Hematocrit 36.2 % (42.0-52.0); Hemoglobin 11.9 g/dL (14.0-18.0); Immature Granulocyte Percent A 0.6 % (0-0.5); Lymphocytes Absolute Auto 0.84 K/mm3 (0.9-3.2); Mean Corpuscular HGB Conc 32.9 g/dl (32-36); Mean Corpuscular Hemoglobin 31.1 pg (26-34); Mean Corpuscular Volume 94.5 fl (80-100); Nucleated Red Blood Cells Absolute Auto 0.000 K/mm3 (0.0-0.012); Nucleated Red Blood Cells Perc 0.0 % (0.0-0.2); Platelet Count Result 183 k/mm3 (150-375); Red Blood Count 3.83 M/mm3 (4.6-6.20); White Blood Count 9.3 K/mm3 (4.5-10.0)
[2025-06-03 05:26] LABS: Anion Gap 9 mmol/L (4-12); Blood Urea Nitrogen 32 mg/dL (9-20); Calcium 8.7 mg/dL (8.4-10.2); Carbon Dioxide 26 mmol/L (22-30); Chloride 102 mmol/L (98-107); Estimated CRCL calculation 48 ml/min; Estimated Glomerular Filt Rate 55; Glucose 132 mg/dL (65-110); Potassium 4.0 mmol/L (3.4-5.0); Sodium 137 mmol/L (137-145)
[2025-06-03] MEDS: ceFAZolin 2 GM in SODIUM CHLORIDE 0.9% IV 50 ML 100 ML IVPB ×2 (06:03→14:49)
[2025-06-03] MEDS: ACETAMINOPHEN 500 MG TABLET 1000 MG PO ×3 (06:04→18:30)
--- NOTE | 2025-06-03 07:20 | PM.IMPN ---
Progress Note: A&P Assessment and Plan (1) Closed right femoral fracture: Code(s): S72.91XA - Unspecified fracture of right femur, initial encounter for closed fracture Status: Acute Assessment and Plan: Lost his balance and fell onto his right buttock Denies loss of consciousness or head strike Head CT: No fracture or acute intracranial process. 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 Hip/pelvis XR: Mild anterior displacement and 30 degrees varus angulation of a transcervical fracture of the proximal right femur. - use IS - neurovasc checks - see order for intervals - SCDs/TEDs, eliquis and plavix resumed per ortho following surgery - analgesics and antiemetics p.r.n. - bowel regimen: senna, miralax, senna/docusate, Dulcolax - PT/OT: weight bearing as tolerated - care coordination following for placement - ortho consulted s/p right hip hemiarthroplasty with bipolar prosthesis (2) Acute respiratory failure: Code(s): J96.00 - Acute respiratory failure, unspecified whether with hypoxia or hypercapnia Status: Acute Assessment and Plan: Placed on 2L O2 after dose of Dilaudid. Back on RA - Chest XR 05/28: Bilateral diffuse increased interstitial pattern with peribronchial cuffing consistent with likely congestive heart failure related mild pulmonary edema. Cardiomegaly. - Repeat Chest XR 05/31: CHF -Follow CBC, improving off antibiotics - Remains on home dose of lasix now Remains on room air. (3) Acute exacerbation of chronic heart failure: Code(s): I50.9 - Heart failure, unspecified Status: Acute Assessment and Plan: - Symptoms: new o2 requirement with sob - Current medications: lasix 40 mg BID - Chest XR 05/28: Bilateral diffuse increased interstitial pattern with peribronchial cuffing consistent with likely congestive heart failure related mild pulmonary edema. Cardiomegaly. - Repeat Chest XR 05/31: CHF - Echo 05/19/24: LVEF 50-55% - Monitor vital signs, I&Os, BUN/creatinine, daily weights, neuro status and patient is a fall risk - Monitor serum electrolytes, Keep serum Potassium>4 and serum Magnesium>2 and CBC - Integration Solution Architect is Dr. Sheth at [facility] and needs to keep regular f/u with him. (4) SAMIR (acute kidney injury): Code(s): N17.9 - Acute kidney failure, unspecified Status: Acute Assessment and Plan: Ddx includes prerenal, cardiorenal, other. Reports he might not have been drinking as much morning prior to admission Held lasix 40 BID, resumed 05/31. Lasix 40mg x1. Creatinine 1.29<1.59>1.31>WNL Losartan 25 mg resumed Follow daily BMP UA no evidence of infection. Na, Urea, Creatinine pending Resolved. (5) CAD (coronary artery disease): Code(s): I25.10 - Atherosclerotic heart disease of [place] coronary artery without angina pectoris Status: Acute Assessment and Plan: Resume Plavix when OK after surgery since stent was relatively recent in Sep 2024. His regular turner in is Dr. Sheth at [facility] and needs to keep regular f/u with him. (6) PAF (paroxysmal atrial fibrillation): Code(s): I48.0 - Paroxysmal atrial fibrillation Status: Acute Assessment and Plan: In Sinus rhythm. Carvedilol 25 mg BID Eliquis 5 mg BID (7) S/P aortic valve replacement with bioprosthetic valve: Code(s): Z95.3 - Presence of xenogenic heart valve Status: Acute Time Spent With Patient Time with patient: 25 - 35 minutes Subjective Date/time seen: 06/03/25 07:20 Interval history: 84-year-old male with PMH GERD, hypertension, anemia, AFib on Eliquis, CHF, aortic valve replacement, follows with Dr. Clifton at [facility], COPD, BPH, GIAN untreated due to noncompliance, [id number] diabetes mellitus, lung nodules, hyperlipidemia presents to the hospital for a fall with right hip pain. Patient is pleasant sitting up comfortably in bed. He states that he is feeling much better and denies any shortness of breath. He notes that pain is well controlled on the current regimen. Denies any chest pain, palpitations, nausea/vomiting and abdominal pain. Review of Systems Review of Systems: All systems reviewed & are unremarkable except as noted in HPI and below (Subjective) Exam Narrative: AF HR 78 RR 16 Spo2 97 BP 146/54 General: male in no acute respiratory distress who is nontoxic appearing, lying semi recumbent in bed. HEENT: Normocephalic. Atraumatic. Extraocular movement intact. Sclera clear and anicteric. No facial asymmetry. Chest: Lungs are clear to auscultation bilaterally. CV: Heart was regular rate and rhythm. Abd: Abdomen was soft. Nontender. Nondistended. Positive bowel sounds. Ext: No clubbing, cyanosis. DP pulses bilaterally. Slight edema to the right hip with surgical dressing that is clean/dry/intact. Neuro: Patient is alert. Speech is clear. Objective Data Vital Signs Vital Signs: Vital Signs - 24 hr 06/02/25 08:03 06/02/25 08:03 06/02/25 08:17 Temperature Pulse Rate 71 71 71 Respiratory Rate 16 Blood Pressure Pulse Oximetry 95 Oxygen Delivery Room Air Oxygen Flow Rate 06/02/25 10:25 06/02/25 16:46 06/02/25 17:00 Temperature 98.3 F 99.0 F Pulse Rate 65 58 L 68 Respiratory Rate 14 18 Blood Pressure 156/58 H 152/72 H 151/69 H Pulse Oximetry 97 100 97 Oxygen Delivery Room Air Simple Face Mask Simple Face Mask Oxygen Flow Rate 8 8 06/02/25 17:15 06/02/25 17:30 06/02/25 17:45 Temperature Pulse Rate 85 84 76 Respiratory Rate 20 12 16 Blood Pressure 190/90 H 158/72 H 169/68 H Pulse Oximetry 94 95 94 Oxygen Delivery Room Air Room Air Room Air Oxygen Flow Rate 06/02/25 18:00 06/02/25 18:21 06/02/25 18:30 Temperature 97.8 F Pulse Rate 74 78 Respiratory Rate 20 18 18 Blood Pressure 161/67 H 150/81 H Pulse Oximetry 94 96 97 Oxygen Delivery Room Air Room Air Oxygen Flow Rate 06/02/25 18:51 06/02/25 19:49 06/02/25 20:00 Temperature 98.1 F 97.8 F Pulse Rate 88 71 71 Respiratory Rate 18 16 16 Blood Pressure 180/76 H 175/69 H Pulse Oximetry 97 97 97 Oxygen Delivery Room Air Oxygen Flow Rate 06/02/25 20:00 06/02/25 23:51 06/03/25 00:00 Temperature 98.1 F Pulse Rate 73 66 68 Respiratory Rate 16 Blood Pressure 171/67 H Pulse Oximetry 98 Oxygen Delivery Oxygen Flow Rate 06/03/25 03:51 06/03/25 04:00 Temperature 98.4 F Pulse Rate 77 77 Respiratory Rate 18 Blood Pressure 175/77 H Pulse Oximetry 97 Oxygen Delivery Oxygen Flow Rate Intake/Output Intake/Output: Intake & Output 05/31/25 06/01/25 06/02/25 06/03/25 23:59 23:59 23:59 23:59 Intake Total 1540 830 950 300 Output Total 1925 1225 950 600 Balance -385 -395 0 -300 Meds/Results Medications: Active Medications Generic Name Dose Route Start Last Admin Trade Name Freq PRN Reason Stop Dose Admin Acetaminophen 1,000 mg 05/30/25 16:30 06/03/25 06:04 Acetaminophen 500 Mg Tablet PO 1,000 mg Q6HR [facility] Administration Acetaminophen 500 mg 06/02/25 18:06 Acetaminophen 500 Mg Tablet PO Q6H PRN Pain Rated 1-3 Albuterol 1 puff 05/29/25 08:56 Albuterol Sulfate (*Sp) Aerosol 1 Puff INHALATION Q4H PRN Shortness Of Breath Or Wheezing Apixaban 5 mg 06/03/25 09:00 Apixaban 5 Mg Tablet PO Q12HR [facility] Atorvastatin Calcium 80 mg 05/29/25 11:15 06/02/25 08:17 Atorvastatin 40 Mg Tablet PO Not Given DAILY [facility] Bisacodyl 5 mg 05/31/25 09:00 06/02/25 08:18 Bisacodyl 5 Mg Tablet Ec PO Not Given QAM [facility] Bisacodyl 10 mg 05/31/25 21:00 05/31/25 20:31 Bisacodyl 10 Mg Suppository RECTAL Not Given Q72H [facility] Buspirone HCl 5 mg 05/29/25 09:00 06/02/25 19:58 Buspirone Hcl 5 Mg Tablet PO 5 mg Q12HR [facility] Administration Carvedilol 25 mg 05/29/25 21:00 06/02/25 19:57 Carvedilol 25 Mg Tablet PO 25 mg Q12HR [facility] Administration Celecoxib 200 mg 05/31/25 17:00 06/02/25 18:30 Celecoxib 200 Mg Capsule PO 200 mg BIDWM [facility] Administration Clopidogrel Bisulfate 75 mg 06/03/25 09:00 Clopidogrel Bisulfate 75 Mg Tablet PO DAILY [facility] Diazepam 5 mg 05/31/25 21:16 05/31/25 21:30 Diazepam (*Crx) 5 Mg Tablet PO 5 mg BID PRN Administration Muscle Spasm Famotidine 20 mg 06/02/25 21:00 06/02/25 19:59 Famotidine 20 Mg Tablet PO 20 mg Q12HR [facility] Administration Furosemide 40 mg 05/30/25 17:25 06/02/25 18:30 Furosemide 40 Mg Tablet PO 40 mg BID [facility] Administration Hydromorphone HCl 1 mg 06/02/25 18:06 06/03/25 04:32 Hydromorphone Hcl Inj (*Crx) 1 Mg/Ml Syr IV PUSH 1 mg Q2H PRN Administration Breakthrough Pain Rated 7-10 or NPO Hydromorphone HCl 0.5 mg 06/02/25 18:06 Hydromorphone Hcl Inj (*Crx) 1 Mg/Ml Syr IV PUSH Q2H PRN Breakthrough Pain Rated 4-6 or NPO Hydroxyzine Pamoate 50 mg 06/02/25 18:06 Hydroxyzine Pamoate 25 Mg Capsule PO Q4H PRN Itching Cefazolin Sodium 2 gm/ Sodium 50 mls @ 100 mls/hr 06/02/25 23:00 06/03/25 07:06 Chloride IVPB 06/03/25 15:29 Infused Q8H [facility] Infusion Ibuprofen 800 mg in 200 mls @ 400 mls/hr 06/02/25 18:06 Caldolor 800 Mg/200 Ml IVPB Q6H PRN Breakthrough Pain Rated 1-3 or NPO Losartan Potassium 25 mg 06/01/25 09:00 06/02/25 08:20 Losartan Potassium 25 Mg Tablet PO Not Given DAILY [facility] Melatonin 5 mg 06/02/25 21:00 06/02/25 19:58 Melatonin 5 Mg Tablet PO 5 mg HS [facility] Administration Methocarbamol 500 mg 05/29/25 08:56 Methocarbamol 500 Mg Tablet PO BID PRN Muscle Spasm Naloxone HCl 0.1 mg 06/02/25 18:06 Naloxone Hcl 0.4 Mg/Ml Vial IV PUSH Q2M PRN Opiate Reversal Ondansetron HCl 4 mg 05/30/25 09:30 Ondansetron Inj 4 Mg/2 Ml Vial IV PUSH Q6H PRN Nausea And Vomiting Ondansetron HCl 4 mg 06/02/25 18:06 Ondansetron Inj 4 Mg/2 Ml Vial IV PUSH Q4H PRN Nausea And Vomiting Oxycodone/Acetaminophen 1 tablet 06/02/25 18:06 Oxycodone/Acetaminophen (*Crx) 5-325 Mg Tablet PO Q4H PRN Pain Rated 4-6 Oxycodone/Acetaminophen 1 tab 06/02/25 18:06 Oxycodone/Acetaminophen (*Crx) 10-325 Mg Tablet PO Q6H PRN Pain Rated 7-10 Paroxetine HCl 20 mg 05/29/25 09:00 06/02/25 08:19 Paroxetine 20 Mg Tablet PO 20 mg QAM [facility] Administration Polyethylene Glycol 17 gm 05/30/25 21:00 06/02/25 18:25 Polyethylene Glycol 3350 17 Gm Powd.Pack PO Not Given BID [facility] Polyethylene Glycol 17 gm 06/03/25 09:00 Polyethylene Glycol 3350 17 Gm Powd.Pack PO QAM [facility] Potassium Chloride 20 meq 06/03/25 09:00 Potassium Chloride 20 Meq Er Tablet PO DAILY [facility] Senna/Docusate Sodium 2 tab 05/31/25 17:00 06/02/25 18:24 Senna/Docusate Sodium Tablet PO Not Given BID [facility] Senna/Docusate Sodium 2 tab 06/02/25 18:06 06/02/25 18:25 Senna/Docusate Sodium Tablet PO Not Given BID [facility] Simvastatin 20 mg 06/02/25 21:00 06/02/25 19:57 Simvastatin 20 Mg Tablet PO 20 mg HS [facility] Administration Trazodone HCl 50 mg 06/02/25 18:06 Trazodone Hcl 50 Mg Tablet PO QHS PRN Insomnia Radiology Results: ITS Impressions Hip/Pelvis X-Ray 05/28/25 18:04 IMPRESSION: 1. Mild anterior displacement and 30 degrees varus angulation of a transcervical fracture of the proximal right femur. Head CT 05/28/25 19:14 IMPRESSION: 1. No fracture or acute intracranial process. 2. 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 Chest X-Ray 05/31/25 17:02 Impression: CHF Hip X-Ray 06/02/25 19:54 IMPRESSION: Postoperative changes from right hip arthroplasty. Labs Labs: Laboratory Results - last 24 hr 06/02/25 06/03/25 10:41 04:35 WBC 9.3 RBC 3.83 L Hgb 11.9 L Hct 36.2 L MCV 94.5 MCH 31.1 MCHC 32.9 RDW 14.8 H Plt Count 183 MPV 11.5 H Immature Gran % (Auto) 0.6 H Neut % (Auto) 76.8 H Lymph % (Auto) 9.1 L [place] % (Auto) 11.2 H Eos % (Auto) 1.8 Baso % (Auto) 0.5 Lymph # (Auto) 0.84 L [place] # (Auto) 1.0 H Eos # (Auto) 0.2 Baso # (Auto) 0.1 Abs Immat Gran (auto) 0.06 H Absolute Neuts (auto) 7.1 H Absolute Nucleated RBC 0.000 Nucleated RBC % 0.0 Sodium 137 Potassium 4.0 Chloride 102 Carbon Dioxide 26 Anion Gap 9 BUN 32 H Creatinine 1.25 Estim Creat Clear Calc 48 Estimated GFR 55 L Glucose 132 H Calcium 8.7 Blood Type A Positive Antibody Screen Negative Quality VTE Prophylaxis VTE prophylaxis: mechanical ordered and pharmacologic ordered
[2025-06-03] MEDS: FAMOTIDINE 20 MG TABLET PO ×2 (08:13→20:28)
[2025-06-03] MEDS: POTASSIUM CHLORIDE 20 MEQ ER TABLET PO (08:13)
[2025-06-03] MEDS: LOSARTAN POTASSIUM 25 MG TABLET PO (08:14)
[2025-06-03] MEDS: CLOPIDOGREL BISULFATE 75 MG TABLET PO (08:14)
[2025-06-03] MEDS: BISACODYL 5 MG TABLET EC PO (08:14)
[2025-06-03] MEDS: APIXABAN 5 MG TABLET PO ×2 (08:14→20:28)
[2025-06-03] MEDS: SENNA/DOCUSATE SODIUM TABLET 2 TAB PO ×2 (08:14→16:48)
[2025-06-03] MEDS: FUROSEMIDE 40 MG TABLET PO ×2 (08:14→16:48)
[2025-06-03] MEDS: CELECOXIB 200 MG CAPSULE PO ×2 (08:15→16:48)
[2025-06-03] MEDS: ATORVASTATIN 40 MG TABLET 80 MG PO (08:15)
--- NOTE | 2025-06-03 08:26 | P.CDI_ITS ---
CDI Query Clarification Request 1) Please specify type and acuity of heart failure if known. * Acute * Chronic * Acute on Chronic * Unknown * Systolic * Diastolic * Combined Systolic and Diastolic * Unknown 2)Please review the clinical information below and clarify the respiratory diagnosis the patient is being treated for: * Hypoxia or hypoxemia without respiratory failure * Respiratory distress without respiratory failure * Acute respiratory failure with hypoxia * Acute respiratory failure with hypercapnia * Acute respiratory failure with hypoxia and hypercapnia * Acute on chronic respiratory failure with hypoxia * Acute on chronic respiratory failure with hypercapnia * Acute on chronic respiratory failure with hypoxia and hypercapnia * Acute respiratory distress syndrome (ARDS) * Chronic respiratory failure with hypoxia * Chronic respiratory failure with hypercapnia * Chronic respiratory failure with hypoxia and hypercapnia * Other explanation clinical findings, please specify * Unable to determine The medical chart reflects the following: (2) Acute respiratory failure: Code(s): J96.00 - Acute respiratory failure, unspecified whether with hypoxia or hypercapnia Status: Acute Assessment and Plan: Placed on 2L O2 after dose of Dilaudid. Back on RA - Chest XR 05/28: Bilateral diffuse increased interstitial pattern with peribronchial cuffing consistent with likely congestive heart failure related mild pulmonary edema. Cardiomegaly. - Repeat Chest XR 05/31: CHF -Follow CBC, improving off antibiotics -40mg IV lasix given, remains on home dose of lasix now Remains on room air. (3) Acute exacerbation of chronic heart failure: Code(s): I50.9 - Heart failure, unspecified Status: Acute Assessment and Plan: - Symptoms: new o2 requirement with sob - Current medications: lasix 40 mg BID - Chest XR 05/28: Bilateral diffuse increased interstitial pattern with peribronchial cuffing consistent with likely congestive heart failure related mild pulmonary edema. Cardiomegaly. - Repeat Chest XR 05/31: CHF - Monitor vital signs, I&Os, BUN/creatinine, daily weights, neuro status and patient is a fall risk - Monitor serum electrolytes, Keep serum Potassium>4 and serum Magnesium>2 and CBC - Respiratory Supervisor is Dr. Sheth at [facility] and needs to keep regular f/u with him. H&P 05/28 Patient was given Dilaudid 1 mg IV x1. Hemodynamically stable on arrival however it appears after Dilaudid administration the patient was placed on 2 L of nasal cannula for comfort. No hypoxia documented. Patient denies any shortness of breath, chest pain, fever, nausea, vomiting, abdominal pain, diarrhea. CXR: Impression: CHF IV Lasix given <Ny Alanis RN - Last Filed: 06/03/25 08:33> Clarified Diagnosis Clarified Diagnosis: 1. acute diastolic <Mckenzie Zaldivar PA-C - Last Filed: 06/03/25 14:08>
--- NOTE | 2025-06-03 14:08 | P.PNOP_ITS ---
Progress Note: A&P Assessment and Plan (1) Fracture of femoral neck, right, closed: Qualifiers: Encounter type: initial encounter Qualified Code(s): S72.001A - Fracture of unspecified part of neck of right femur, initial encounter for c losed fracture Code(s): S72.001A - Fracture of unspecified part of neck of right femur, initial encounter for closed fracture Status: Acute Plan POD 1 DOING WELL. SNF PER MEDICINE SERVICE Subjective Subjective Date/Time Seen: 06/03/25 14:08 Interval history: POD 1 DOING WELL. STABLE. NO CALF PAIN Exam Extrem: Other: VSS AFEBRILE DRESSING DRY NV INTACT NEG HOMANS SIGN, CALF AND THIGH SOFT NON TENDER Objective Data Vital Signs Vital Signs: Vital Signs - 24 hr 06/02/25 16:46 06/02/25 17:00 06/02/25 17:15 Temperature 37.2 C Pulse Rate 58 L 68 85 Respiratory Rate 14 18 20 Blood Pressure 152/72 H 151/69 H 190/90 H Pulse Oximetry 100 97 94 Oxygen Delivery Simple Face Mask Simple Face Mask Room Air Oxygen Flow Rate 8 8 06/02/25 17:30 06/02/25 17:45 06/02/25 18:00 Temperature Pulse Rate 84 76 74 Respiratory Rate 12 16 20 Blood Pressure 158/72 H 169/68 H 161/67 H Pulse Oximetry 95 94 94 Oxygen Delivery Room Air Room Air Room Air Oxygen Flow Rate 06/02/25 18:21 06/02/25 18:30 06/02/25 18:51 Temperature 36.6 C 36.7 C Pulse Rate 78 88 Respiratory Rate 18 18 18 Blood Pressure 150/81 H 180/76 H Pulse Oximetry 96 97 97 Oxygen Delivery Room Air Oxygen Flow Rate 06/02/25 19:49 06/02/25 20:00 06/02/25 20:00 Temperature 36.6 C Pulse Rate 71 71 73 Respiratory Rate 16 16 Blood Pressure 175/69 H Pulse Oximetry 97 97 Oxygen Delivery Room Air Oxygen Flow Rate 06/02/25 23:51 06/03/25 00:00 06/03/25 03:51 Temperature 36.7 C 36.9 C Pulse Rate 66 68 77 Respiratory Rate 16 18 Blood Pressure 171/67 H 175/77 H Pulse Oximetry 98 97 Oxygen Delivery Oxygen Flow Rate 06/03/25 04:00 06/03/25 08:00 06/03/25 08:00 Temperature 37.2 C Pulse Rate 77 75 77 Respiratory Rate 18 Blood Pressure 136/86 Pulse Oximetry 98 Oxygen Delivery Oxygen Flow Rate 06/03/25 08:14 06/03/25 08:27 06/03/25 09:30 Temperature Pulse Rate 81 Respiratory Rate Blood Pressure Pulse Oximetry Oxygen Delivery Room Air Room Air Oxygen Flow Rate 06/03/25 10:23 06/03/25 11:51 Temperature 36.8 C Pulse Rate 78 Respiratory Rate 16 Blood Pressure 146/54 H Pulse Oximetry 97 Oxygen Delivery Room Air Oxygen Flow Rate Intake/Output Intake/Output: Intake & Output 05/31/25 06/01/25 06/02/25 06/03/25 23:59 23:59 23:59 23:59 Intake Total 1540 237 874 7993 Output Total 1925 1225 950 600 Balance -385 -395 0 730 Meds/Results Medications: Active Medications Generic Name Dose Route Start Last Admin Trade Name Freq PRN Reason Stop Dose Admin Acetaminophen 1,000 mg 05/30/25 16:30 06/03/25 12:38 Acetaminophen 500 Mg Tablet PO 1,000 mg Q6HR [facility] Administration Acetaminophen 500 mg 06/02/25 18:06 Acetaminophen 500 Mg Tablet PO Q6H PRN Pain Rated 1-3 Albuterol 1 puff 05/29/25 08:56 Albuterol Sulfate (*Sp) Aerosol 1 Puff INHALATION Q4H PRN Shortness Of Breath Or Wheezing Apixaban 5 mg 06/03/25 09:00 06/03/25 08:14 Apixaban 5 Mg Tablet PO 5 mg Q12HR [facility] Administration Atorvastatin Calcium 80 mg 05/29/25 11:15 06/03/25 08:15 Atorvastatin 40 Mg Tablet PO 80 mg DAILY [facility] Administration Bisacodyl 5 mg 05/31/25 09:00 06/03/25 08:14 Bisacodyl 5 Mg Tablet Ec PO 5 mg QAM [facility] Administration Bisacodyl 10 mg 05/31/25 21:00 05/31/25 20:31 Bisacodyl 10 Mg Suppository RECTAL Not Given Q72H [facility] Buspirone HCl 5 mg 05/29/25 09:00 06/03/25 08:15 Buspirone Hcl 5 Mg Tablet PO 5 mg Q12HR [facility] Administration Carvedilol 25 mg 05/29/25 21:00 06/03/25 08:14 Carvedilol 25 Mg Tablet PO 25 mg Q12HR [facility] Administration Celecoxib 200 mg 05/31/25 17:00 06/03/25 08:15 Celecoxib 200 Mg Capsule PO 200 mg BIDWM [facility] Administration Clopidogrel Bisulfate 75 mg 06/03/25 09:00 06/03/25 08:14 Clopidogrel Bisulfate 75 Mg Tablet PO 75 mg DAILY [facility] Administration Diazepam 5 mg 05/31/25 21:16 05/31/25 21:30 Diazepam (*Crx) 5 Mg Tablet PO 5 mg BID PRN Administration Muscle Spasm Famotidine 20 mg 06/02/25 21:00 06/03/25 08:13 Famotidine 20 Mg Tablet PO 20 mg Q12HR [facility] Administration Furosemide 40 mg 05/30/25 17:25 06/03/25 08:14 Furosemide 40 Mg Tablet PO 40 mg BID [facility] Administration Hydromorphone HCl 1 mg 06/02/25 18:06 06/03/25 04:32 Hydromorphone Hcl Inj (*Crx) 1 Mg/Ml Syr IV PUSH 1 mg Q2H PRN Administration Breakthrough Pain Rated 7-10 or NPO Hydromorphone HCl 0.5 mg 06/02/25 18:06 Hydromorphone Hcl Inj (*Crx) 1 Mg/Ml Syr IV PUSH Q2H PRN Breakthrough Pain Rated 4-6 or NPO Hydroxyzine Pamoate 50 mg 06/02/25 18:06 Hydroxyzine Pamoate 25 Mg Capsule PO Q4H PRN Itching Cefazolin Sodium 2 gm/ Sodium 50 mls @ 100 mls/hr 06/02/25 23:00 06/03/25 07:06 Chloride IVPB 06/03/25 15:29 Infused Q8H [facility] Infusion Ibuprofen 800 mg in 200 mls @ 400 mls/hr 06/02/25 18:06 Caldolor 800 Mg/200 Ml IVPB Q6H PRN Breakthrough Pain Rated 1-3 or NPO Losartan Potassium 25 mg 06/01/25 09:00 06/03/25 08:14 Losartan Potassium 25 Mg Tablet PO 25 mg DAILY [facility] Administration Melatonin 5 mg 06/02/25 21:00 06/02/25 19:58 Melatonin 5 Mg Tablet PO 5 mg HS [facility] Administration Methocarbamol 500 mg 05/29/25 08:56 Methocarbamol 500 Mg Tablet PO BID PRN Muscle Spasm Naloxone HCl 0.1 mg 06/02/25 18:06 Naloxone Hcl 0.4 Mg/Ml Vial IV PUSH Q2M PRN Opiate Reversal Ondansetron HCl 4 mg 05/30/25 09:30 Ondansetron Inj 4 Mg/2 Ml Vial IV PUSH Q6H PRN Nausea And Vomiting Ondansetron HCl 4 mg 06/02/25 18:06 Ondansetron Inj 4 Mg/2 Ml Vial IV PUSH Q4H PRN Nausea And Vomiting Oxycodone/Acetaminophen 1 tablet 06/02/25 18:06 Oxycodone/Acetaminophen (*Crx) 5-325 Mg Tablet PO Q4H PRN Pain Rated 4-6 Oxycodone/Acetaminophen 1 tab 06/02/25 18:06 Oxycodone/Acetaminophen (*Crx) 10-325 Mg Tablet PO Q6H PRN Pain Rated 7-10 Paroxetine HCl 20 mg 05/29/25 09:00 06/03/25 08:14 Paroxetine 20 Mg Tablet PO 20 mg QAM [facility] Administration Polyethylene Glycol 17 gm 05/30/25 21:00 06/03/25 08:15 Polyethylene Glycol 3350 17 Gm Powd.Pack PO 17 gm BID [facility] Administration Polyethylene Glycol 17 gm 06/03/25 09:00 06/03/25 08:15 Polyethylene Glycol 3350 17 Gm Powd.Pack PO Not Given QAM [facility] Potassium Chloride 20 meq 06/03/25 09:00 06/03/25 08:13 Potassium Chloride 20 Meq Er Tablet PO 20 meq DAILY [facility] Administration Senna/Docusate Sodium 2 tab 05/31/25 17:00 06/03/25 08:14 Senna/Docusate Sodium Tablet PO 2 tab BID [facility] Administration Senna/Docusate Sodium 2 tab 06/02/25 18:06 06/03/25 08:15 Senna/Docusate Sodium Tablet PO Not Given BID [facility] Simvastatin 20 mg 06/02/25 21:00 06/02/25 19:57 Simvastatin 20 Mg Tablet PO 20 mg HS [facility] Administration Trazodone HCl 50 mg 06/02/25 18:06 Trazodone Hcl 50 Mg Tablet PO QHS PRN Insomnia Radiology Results: ITS Impressions Hip/Pelvis X-Ray 05/28/25 18:04 IMPRESSION: 1. Mild anterior displacement and 30 degrees varus angulation of a transcervical fracture of the proximal right femur. Head CT 05/28/25 19:14 IMPRESSION: 1. No fracture or acute intracranial process. 2. 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 Chest X-Ray 05/31/25 17:02 Impression: CHF Hip X-Ray 06/02/25 19:54 IMPRESSION: Postoperative changes from right hip arthroplasty. Labs Labs: Laboratory Results - last 24 hr 06/03/25 04:35 WBC 9.3 RBC 3.83 L Hgb 11.9 L Hct 36.2 L MCV 94.5 MCH 31.1 MCHC 32.9 RDW 14.8 H Plt Count 183 MPV 11.5 H Immature Gran % (Auto) 0.6 H Neut % (Auto) 76.8 H Lymph % (Auto) 9.1 L [place] % (Auto) 11.2 H Eos % (Auto) 1.8 Baso % (Auto) 0.5 Lymph # (Auto) 0.84 L [place] # (Auto) 1.0 H Eos # (Auto) 0.2 Baso # (Auto) 0.1 Abs Immat Gran (auto) 0.06 H Absolute Neuts (auto) 7.1 H Absolute Nucleated RBC 0.000 Nucleated RBC % 0.0 Sodium 137 Potassium 4.0 Chloride 102 Carbon Dioxide 26 Anion Gap 9 BUN 32 H Creatinine 1.25 Estim Creat Clear Calc 48 Estimated GFR 55 L Glucose 132 H Calcium 8.7
[2025-06-03] MEDS: oxyCODONE/ACETAMINOPHEN (*CRX) 5-325 MG TABLET 1 TABLET PO (15:22)
[2025-06-03] MEDS: MELATONIN 5 MG TABLET PO (20:28)
[2025-06-03] MEDS: SIMVASTATIN 20 MG TABLET PO (20:28)
[2025-06-04] VITALS (10 sets, daily range): BP systolic 121–154; BP diastolic 44–60; PULSE 65–85; RESP 18; TEMP 36.7–37.1; O2SAT 95
[2025-06-04 03:50] LABS: Hematocrit 32.0 % (42.0-52.0); Hemoglobin 10.4 g/dL (14.0-18.0); Immature Granulocyte Percent A 1.0 % (0-0.5); Lymphocytes Absolute Auto 1.10 K/mm3 (0.9-3.2); Mean Corpuscular HGB Conc 32.5 g/dl (32-36); Mean Corpuscular Hemoglobin 30.8 pg (26-34); Mean Corpuscular Volume 94.7 fl (80-100); Nucleated Red Blood Cells Absolute Auto 0.000 K/mm3 (0.0-0.012); Nucleated Red Blood Cells Perc 0.0 % (0.0-0.2); Platelet Count Result 165 k/mm3 (150-375); Red Blood Count 3.38 M/mm3 (4.6-6.20); White Blood Count 9.0 K/mm3 (4.5-10.0)
[2025-06-04 04:09] LABS: Anion Gap 6 mmol/L (4-12); Blood Urea Nitrogen 40 mg/dL (9-20); Calcium 8.2 mg/dL (8.4-10.2); Carbon Dioxide 26 mmol/L (22-30); Chloride 101 mmol/L (98-107); Estimated CRCL calculation 42 ml/min; Estimated Glomerular Filt Rate 46; Glucose 133 mg/dL (65-110); Potassium 3.7 mmol/L (3.4-5.0); Sodium 133 mmol/L (137-145)
--- NOTE | 2025-06-04 07:21 | P.PNIM_ITS ---
Progress Note: A&P Assessment and Plan (1) Closed right femoral fracture: Code(s): S72.91XA - Unspecified fracture of right femur, initial encounter for closed fracture Status: Acute Assessment and Plan: Lost his balance and fell onto his right buttock Denies loss of consciousness or head strike Head CT: No fracture or acute intracranial process. 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 Hip/pelvis XR: Mild anterior displacement and 30 degrees varus angulation of a transcervical fracture of the proximal right femur. - use IS - neurovasc checks - see order for intervals - SCDs/TEDs, eliquis and plavix - analgesics and antiemetics p.r.n. still requiring IV pain medications, continue to wean to orals as tolerated - bowel regimen: senna, miralax, senna/docusate, Dulcolax - PT/OT: weight bearing as tolerated - care coordination following for placement - ortho consulted s/p right hip hemiarthroplasty with bipolar prosthesis on 06/[address] Brewster Slight downtrend to Hgb on am labs to 10.4, denies any acitive bleeding. No increased swelling to the right hip concerning for hematoma. Continue to monitor. (2) Acute respiratory failure: Code(s): J96.00 - Acute respiratory failure, unspecified whether with hypoxia or hypercapnia Status: Acute Assessment and Plan: Placed on 2L O2 after dose of Dilaudid. Back on RA - Chest XR 05/28: Bilateral diffuse increased interstitial pattern with peribronchial cuffing consistent with likely congestive heart failure related mild pulmonary edema. Cardiomegaly. - Repeat Chest XR 05/31: CHF -Follow CBC, improving off antibiotics - Remains on home dose of lasix now Remains on room air. (3) Acute exacerbation of chronic heart failure: Code(s): I50.9 - Heart failure, unspecified Status: Acute Assessment and Plan: - Symptoms: new o2 requirement with sob - Current medications: lasix 40 mg BID - Chest XR 05/28: Bilateral diffuse increased interstitial pattern with peribronchial cuffing consistent with likely congestive heart failure related mild pulmonary edema. Cardiomegaly. - Repeat Chest XR 05/31: CHF - Echo 05/19/24: LVEF 50-55% - Monitor vital signs, I&Os, BUN/creatinine, daily weights, neuro status and patient is a fall risk - Monitor serum electrolytes, Keep serum Potassium>4 and serum Magnesium>2 and CBC - [place] [employer] is Dr. Sheth at [facility] and needs to keep regular f/u with him. Remains on room air. Denies shortness of breath and lungs clear on assessment. (4) SAMIR (acute kidney injury): Code(s): N17.9 - Acute kidney failure, unspecified Status: Acute Assessment and Plan: Ddx includes prerenal, cardiorenal, other. Reports he might not have been drinking as much morning prior to admission Held lasix 40 BID, resumed 05/31. Lasix 40mg x1. Losartan 25 mg Follow daily BMP UA no evidence of infection. Monitor I/O, UOP remains stable (5) CAD (coronary artery disease): Code(s): I25.10 - Atherosclerotic heart disease of [place] coronary artery without angina pectoris Status: Acute Assessment and Plan: Resumed Plavix since stent was relatively recent in Sep 2024. 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 Sheth at [facility] and needs to keep regular f/u with him. (6) PAF (paroxysmal atrial fibrillation): Code(s): I48.0 - Paroxysmal atrial fibrillation Status: Acute Assessment and Plan: In Sinus rhythm. Carvedilol 25 mg BID Eliquis 5 mg BID (7) S/P aortic valve replacement with bioprosthetic valve: Code(s): Z95.3 - Presence of xenogenic heart valve Status: Acute Time Spent With Patient Time with patient: 25 - 35 minutes Subjective Date/time seen: 06/04/25 07:21 Interval history: 84-year-old male with PMH GERD, hypertension, anemia, AFib on Eliquis, CHF, aortic valve replacement, follows with Dr. Clifton at [facility], COPD, BPH, GIAN untreated due to noncompliance, [id number]-[id number] diabetes mellitus, lung nodules, hyperlipidemia presents to the hospital for a fall with right hip pain. Patient is pleasant sitting up comfortably bed. He states pain is worsened today for relates this to trying to be more active. He has no other complaints denying chest pain, shortness a breath, palpitations, nausea/vomiting and abdominal pain. Review of Systems Review of Systems: All systems reviewed & are unremarkable except as noted in HPI and below (Subjective) Exam Narrative: AF HR 67 RR 18 Spo2 95 BP 121/44 General: male in no acute respiratory distress who is nontoxic appearing, sitting up in bed. HEENT: Normocephalic. Atraumatic. Extraocular movement intact. Sclera clear and anicteric. No facial asymmetry. Chest: Lungs are clear to auscultation bilaterally. CV: Heart was regular rate and rhythm. Abd: Abdomen was soft. Nontender. Nondistended. Positive bowel sounds. Ext: No clubbing, cyanosis. DP pulses bilaterally. Slight edema to the right hip with surgical dressing that is clean/dry/intact. Neuro: Patient is alert. Speech is clear. Objective Data Vital Signs Vital Signs: Vital Signs - 24 hr 06/03/25 08:00 06/03/25 08:00 06/03/25 08:14 Temperature 99.0 F Pulse Rate 75 77 81 Respiratory Rate 18 Blood Pressure 136/86 Pulse Oximetry 98 Oxygen Delivery 06/03/25 08:27 06/03/25 09:30 06/03/25 10:23 Temperature Pulse Rate Respiratory Rate Blood Pressure Pulse Oximetry Oxygen Delivery Room Air Room Air Room Air 06/03/25 11:51 06/03/25 12:00 06/03/25 15:51 Temperature 98.2 F 99.1 F Pulse Rate 78 78 76 Respiratory Rate 16 18 Blood Pressure 146/54 H 134/43 L Pulse Oximetry 97 98 Oxygen Delivery 06/03/25 16:00 06/03/25 20:00 06/03/25 20:00 Temperature Pulse Rate 80 80 80 Respiratory Rate 18 Blood Pressure Pulse Oximetry 98 Oxygen Delivery Room Air 06/03/25 20:00 06/03/25 21:00 06/04/25 00:00 Temperature 97.8 F Pulse Rate 74 66 70 Respiratory Rate 16 Blood Pressure 121/50 L Pulse Oximetry 97 Oxygen Delivery 06/04/25 05:48 Temperature 98.7 F Pulse Rate 69 Respiratory Rate 18 Blood Pressure 145/60 H Pulse Oximetry 95 Oxygen Delivery Intake/Output Intake/Output: Intake & Output 06/01/25 06/02/25 06/03/25 06/04/25 23:59 23:59 23:59 23:59 Intake Total 609 534 5550 120 Output Total 2623 265 5870 1200 Balance -395 0 510 -1080 Meds/Results Medications: Active Medications Generic Name Dose Route Start Last Admin Trade Name Freq PRN Reason Stop Dose Admin Acetaminophen 1,000 mg 05/30/25 16:30 06/04/25 02:03 Acetaminophen 500 Mg Tablet PO Not Given Q6HR THOMPSON Acetaminophen 500 mg 06/02/25 18:06 Acetaminophen 500 Mg Tablet PO Q6H PRN Pain Rated 1-3 Albuterol 1 puff 05/29/25 08:56 Albuterol Sulfate (*Sp) Aerosol 1 Puff INHALATION Q4H PRN Shortness Of Breath Or Wheezing Apixaban 5 mg 06/03/25 09:00 06/03/25 20:28 Apixaban 5 Mg Tablet PO 5 mg Q12HR THOM[place]ON Administration Atorvastatin Calcium 80 mg 05/29/25 11:15 06/03/25 08:15 Atorvastatin 40 Mg Tablet PO 80 mg DAILY THOM[place]ON Administration Bisacodyl 5 mg 05/31/25 09:00 06/03/25 08:14 Bisacodyl 5 Mg Tablet Ec PO 5 mg QAM THOM[place]ON Administration Bisacodyl 10 mg 05/31/25 21:00 05/31/25 20:31 Bisacodyl 10 Mg Suppository RECTAL Not Given Q72H [facility] Buspirone HCl 5 mg 05/29/25 09:00 06/03/25 20:28 Buspirone Hcl 5 Mg Tablet PO 5 mg Q12HR TH[place]ON Administration Carvedilol 25 mg 05/29/25 21:00 06/03/25 20:28 Carvedilol 25 Mg Tablet PO 25 mg Q12HR TH[place]ON Administration Celecoxib 200 mg 05/31/25 17:00 06/03/25 16:48 Celecoxib 200 Mg Capsule PO 200 mg BIDWM THOM[place]ON Administration Clopidogrel Bisulfate 75 mg 06/03/25 09:00 06/03/25 08:14 Clopidogrel Bisulfate 75 Mg Tablet PO 75 mg DAILY TH[place]ON Administration Diazepam 5 mg 05/31/25 21:16 05/31/25 21:30 Diazepam (*Crx) 5 Mg Tablet PO 5 mg BID PRN Administration Muscle Spasm Famotidine 20 mg 06/02/25 21:00 06/03/25 20:28 Famotidine 20 Mg Tablet PO 20 mg Q12HR TH[place]ON Administration Furosemide 40 mg 05/30/25 17:25 06/03/25 16:48 Furosemide 40 Mg Tablet PO 40 mg BID TH[place]ON Administration Hydromorphone HCl 1 mg 06/02/25 18:06 06/03/25 21:55 Hydromorphone Hcl Inj (*Crx) 1 Mg/Ml Syr IV PUSH 1 mg Q2H PRN Administration Breakthrough Pain Rated 7-10 or NPO Hydromorphone HCl 0.5 mg 06/02/25 18:06 Hydromorphone Hcl Inj (*Crx) 1 Mg/Ml Syr IV PUSH Q2H PRN Breakthrough Pain Rated 4-6 or NPO Hydroxyzine Pamoate 50 mg 06/02/25 18:06 Hydroxyzine Pamoate 25 Mg Capsule PO Q4H PRN Itching Ibuprofen 800 mg in 200 mls @ 400 mls/hr 06/02/25 18:06 Caldolor 800 Mg/200 Ml IVPB Q6H PRN Breakthrough Pain Rated 1-3 or NPO Losartan Potassium 25 mg 06/01/25 09:00 06/03/25 08:14 Losartan Potassium 25 Mg Tablet PO 25 mg DAILY THOM[place]ON Administration Melatonin 5 mg 06/02/25 21:00 06/03/25 20:28 Melatonin 5 Mg Tablet PO 5 mg HS THOMPSON Administration Methocarbamol 500 mg 05/29/25 08:56 Methocarbamol 500 Mg Tablet PO BID PRN Muscle Spasm Naloxone HCl 0.1 mg 06/02/25 18:06 Naloxone Hcl 0.4 Mg/Ml Vial IV PUSH Q2M PRN Opiate Reversal Ondansetron HCl 4 mg 05/30/25 09:30 Ondansetron Inj 4 Mg/2 Ml Vial IV PUSH Q6H PRN Nausea And Vomiting Ondansetron HCl 4 mg 06/02/25 18:06 Ondansetron Inj 4 Mg/2 Ml Vial IV PUSH Q4H PRN Nausea And Vomiting Oxycodone/Acetaminophen 1 tablet 06/02/25 18:06 06/03/25 15:22 Oxycodone/Acetaminophen (*Crx) 5-325 Mg Tablet PO 1 tablet Q4H PRN Administration Pain Rated 4-6 Oxycodone/Acetaminophen 1 tab 06/02/25 18:06 Oxycodone/Acetaminophen (*Crx) 10-325 Mg Tablet PO Q6H PRN Pain Rated 7-10 Paroxetine HCl 20 mg 05/29/25 09:00 06/03/25 08:14 Paroxetine 20 Mg Tablet PO 20 mg QAM THOMPSON Administration Polyethylene Glycol 17 gm 05/30/25 21:00 06/03/25 16:48 Polyethylene Glycol 3350 17 Gm Powd.Pack PO 17 gm BID THOMPSON Administration Polyethylene Glycol 17 gm 06/03/25 09:00 06/03/25 08:15 Polyethylene Glycol 3350 17 Gm Powd.Pack PO Not Given QAM THOMPSON Potassium Chloride 20 meq 06/03/25 09:00 06/03/25 08:13 Potassium Chloride 20 Meq Er Tablet PO 20 meq DAILY THOMPSON Administration Senna/Docusate Sodium 2 tab 05/31/25 17:00 06/03/25 16:48 Senna/Docusate Sodium Tablet PO 2 tab BID THOM[place]ON Administration Senna/Docusate Sodium 2 tab 06/02/25 18:06 06/03/25 16:48 Senna/Docusate Sodium Tablet PO Not Given BID THOMPSON Simvastatin 20 mg 06/02/25 21:00 06/03/25 20:28 Simvastatin 20 Mg Tablet PO 20 mg HS THOMPSON Administration Trazodone HCl 50 mg 06/02/25 18:06 Trazodone Hcl 50 Mg Tablet PO QHS PRN Insomnia Radiology Results: ITS Impressions Hip/Pelvis X-Ray 05/28/25 18:04 IMPRESSION: 1. Mild anterior displacement and 30 degrees varus angulation of a transcervical fracture of the proximal right femur. Head CT 05/28/25 19:14 IMPRESSION: 1. No fracture or acute intracranial process. 2. 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 Chest X-Ray 05/31/25 17:02 Impression: CHF Hip X-Ray 06/02/25 19:54 IMPRESSION: Postoperative changes from right hip arthroplasty. Labs Labs: Laboratory Results - last 24 hr 06/04/25 03:32 WBC 9.0 RBC 3.38 L Hgb 10.4 L Hct 32.0 L MCV 94.7 MCH 30.8 MCHC 32.5 RDW 14.9 H Plt Count 165 MPV 10.8 H Immature Gran % (Auto) 1.0 H Neut % (Auto) 72.5 Lymph % (Auto) 12.2 L [place] % (Auto) 11.6 H Eos % (Auto) 2.4 Baso % (Auto) 0.3 Lymph # (Auto) 1.10 [place] # (Auto) 1.1 H Eos # (Auto) 0.2 Baso # (Auto) 0.0 Abs Immat Gran (auto) 0.09 H Absolute Neuts (auto) 6.6 Absolute Nucleated RBC 0.000 Nucleated RBC % 0.0 Sodium 133 L Potassium 3.7 Chloride 101 Carbon Dioxide 26 Anion Gap 6 BUN 40 H Creatinine 1.46 H Estim Creat Clear Calc 42 Estimated GFR 46 L Glucose 133 H Calcium 8.2 L Quality VTE Prophylaxis VTE prophylaxis: mechanical ordered and pharmacologic ordered
[2025-06-04] MEDS: CELECOXIB 200 MG CAPSULE PO ×2 (08:27→16:16)
[2025-06-04] MEDS: ACETAMINOPHEN 500 MG TABLET 1000 MG PO ×3 (08:27→18:02)
[2025-06-04] MEDS: oxyCODONE/ACETAMINOPHEN (*CRX) 10-325 MG TABLET 1 TAB PO ×2 (08:28→14:26)
[2025-06-04] MEDS: APIXABAN 5 MG TABLET PO ×2 (08:33→20:28)
[2025-06-04] MEDS: ATORVASTATIN 40 MG TABLET 80 MG PO (08:33)
[2025-06-04] MEDS: CLOPIDOGREL BISULFATE 75 MG TABLET PO (08:33)
[2025-06-04] MEDS: BISACODYL 5 MG TABLET EC PO (08:33)
[2025-06-04] MEDS: POTASSIUM CHLORIDE 20 MEQ ER TABLET PO (08:33)
[2025-06-04] MEDS: LOSARTAN POTASSIUM 25 MG TABLET PO (08:33)
[2025-06-04] MEDS: FAMOTIDINE 20 MG TABLET PO ×2 (08:33→20:29)
[2025-06-04] MEDS: diazePAM (*CRX) 5 MG TABLET PO (08:34)
[2025-06-04] MEDS: FUROSEMIDE 40 MG TABLET PO ×2 (08:34→16:17)
[2025-06-04] MEDS: SENNA/DOCUSATE SODIUM TABLET 2 TAB PO ×2 (08:34→16:16)
--- NOTE | 2025-06-04 08:44 | PCPTNOTE ---
Attempted to see patient for PT, however per RN patient having increase pain and advised not to see patient at this time.
[2025-06-04] MEDS: HYDROmorphone HCL INJ (*CRX) 1 MG/ML SYR IV PUSH (10:14)
--- NOTE | 2025-06-04 10:46 | PCNWS ---
Weekly nutritional screen. Patient is tolerating current diet with adequate intake. No weight loss reported. No nutritional needs at this time.
--- NOTE | 2025-06-04 14:44 | PCOTNOTE ---
PT in room working with patient. Unable to be seen. Will follow up.
--- NOTE | 2025-06-04 15:19 | PM.PNORT ---
Progress Note: A&P Assessment and Plan (1) S/P hip hemiarthroplasty: Code(s): Z96.649 - Presence of unspecified artificial hip joint Status: Acute Assessment and Plan: POD #1 : RIGHT HIP HEMIARTHROPLASTY WITH BIPOLAR PROSTHESIS Continue PT/OT. WBAT. Walker. HIGH FALL RISK. Continue pain control. Ice Hip. Protect skin. DVT prophylaxis with resumed home anticoagulation. SCDs. Incentive Spirometry Use reviewed. Monitor Dressing. Change prior to discharge. Bowel Regimen. Dispo: SNF or [facility] pending progress with PT/OT Plan Reviewed history, exam, radiographs and current labs with attending MD and covering surgeon, Dr. Brewster, who agrees with current plan as indicated above. No further recommendations from Dr. Brewster at this time. Subjective Subjective Date/Time Seen: 06/04/25 15:19 Post Op day: 2 Interval history: POD #2: RIGHT HIP HEMIARTHROPLASTY WITH BIPOLAR PROSTHESIS Patient sitting up in chair. No complaints. Review of Systems Review of Systems: All systems reviewed & are unremarkable except as noted in HPI and below (Subjective) Exam Const: General: comfortable and no acute distress Resp: Effort & Inspection: normal respiratory effort GI: Inspection: non-distended Skin: General skin exam: normal color Other: Incision right hip c/d/i. Surrounding tissue without redness/warmth. Mild swelling consistent with recent surgery. No drainage. Neuro: Cognition (Neuro): normal cognition Speech: normal speech Extrem: Right lower extremity: normal to inspection, normal capillary refill, hip/thigh Details: tenderness Location: of the hip (Thigh soft ) Location: laterally and anteriorly, swelling Location: at the hip, abnormal ROM (limited consistent with recent surgery ) Details: pain with active ROM during and pain with passive ROM during and other (Incision c/d/i. ); no deformity and no unusual warmth, knee Details: normal to inspection; no tenderness and no swelling, lower leg (Negative Gia's Sign ) Details: normal to inspection and no edema; no tenderness, ankle (+ankle dorsiflexion/plantarflexion) Details: normal to inspection and no edema; no tenderness, no swelling and no ecchymosis and foot Details: normal capillary refill, toes with normal ROM, vascular exam Details: dorsalis pedis pulse present and motor-sensory exam Details: light-touch normal; no tenderness Objective Data Vital Signs Vital Signs: Vital Signs - 24 hr 06/03/25 15:51 06/03/25 16:00 06/03/25 20:00 Temperature 37.3 C Pulse Rate 76 80 80 Respiratory Rate 18 18 Blood Pressure 134/43 L Pulse Oximetry 98 98 Oxygen Delivery Room Air 06/03/25 20:00 06/03/25 20:00 06/03/25 21:00 Temperature 36.6 C Pulse Rate 80 74 66 Respiratory Rate 16 Blood Pressure 121/50 L Pulse Oximetry 97 Oxygen Delivery 06/04/25 00:00 06/04/25 05:48 06/04/25 08:03 Temperature 37.1 C Pulse Rate 70 69 81 Respiratory Rate 18 Blood Pressure 145/60 H Pulse Oximetry 95 Oxygen Delivery 06/04/25 08:30 06/04/25 08:35 06/04/25 12:03 Temperature Pulse Rate 85 75 Respiratory Rate Blood Pressure Pulse Oximetry Oxygen Delivery Room Air 06/04/25 13:53 Temperature 36.7 C Pulse Rate 67 Respiratory Rate 18 Blood Pressure 121/44 L Pulse Oximetry 95 Oxygen Delivery Intake/Output Intake/Output: Intake & Output 06/01/25 06/02/25 06/03/25 06/04/25 23:59 23:59 23:59 23:59 Intake Total 377 867 1425 480 Output Total 6006 218 7356 1200 Balance -395 0 510 -720 Meds/Results Medications: Active Medications Generic Name Dose Route Start Last Admin Trade Name Freq PRN Reason Stop Dose Admin Acetaminophen 1,000 mg 05/30/25 16:30 06/04/25 13:00 Acetaminophen 500 Mg Tablet PO 1,000 mg Q6HR THOM[place]ON Administration Acetaminophen 500 mg 06/02/25 18:06 Acetaminophen 500 Mg Tablet PO Q6H PRN Pain Rated 1-3 Albuterol 1 puff 05/29/25 08:56 Albuterol Sulfate (*Sp) Aerosol 1 Puff INHALATION Q4H PRN Shortness Of Breath Or Wheezing Apixaban 5 mg 06/03/25 09:00 06/04/25 08:33 Apixaban 5 Mg Tablet PO 5 mg Q12HR [place] Administration Atorvastatin Calcium 80 mg 05/29/25 11:15 06/04/25 08:33 Atorvastatin 40 Mg Tablet PO 80 mg DAILY TH[place]ON Administration Bisacodyl 5 mg 05/31/25 09:00 06/04/25 08:33 Bisacodyl 5 Mg Tablet Ec PO 5 mg QAM [place] Administration Bisacodyl 10 mg 05/31/25 21:00 06/04/25 07:45 Bisacodyl 10 Mg Suppository RECTAL Not Given Q72H [facility] Buspirone HCl 5 mg 05/29/25 09:00 06/04/25 08:33 Buspirone Hcl 5 Mg Tablet PO 5 mg Q12HR [place] Administration Carvedilol 25 mg 05/29/25 21:00 06/04/25 08:35 Carvedilol 25 Mg Tablet PO 25 mg Q12HR [place] Administration Celecoxib 200 mg 05/31/25 17:00 06/04/25 08:27 Celecoxib 200 Mg Capsule PO 200 mg BIDWM TH[place] Administration Clopidogrel Bisulfate 75 mg 06/03/25 09:00 06/04/25 08:33 Clopidogrel Bisulfate 75 Mg Tablet PO 75 mg DAILY TH[place]ON Administration Diazepam 5 mg 05/31/25 21:16 06/04/25 08:34 Diazepam (*Crx) 5 Mg Tablet PO 5 mg BID PRN Administration Muscle Spasm Famotidine 20 mg 06/02/25 21:00 06/04/25 08:33 Famotidine 20 Mg Tablet PO 20 mg Q12HR TH[place] Administration Furosemide 40 mg 05/30/25 17:25 06/04/25 08:34 Furosemide 40 Mg Tablet PO 40 mg BID TH[place]ON Administration Hydromorphone HCl 1 mg 06/02/25 18:06 06/04/25 10:14 Hydromorphone Hcl Inj (*Crx) 1 Mg/Ml Syr IV PUSH 1 mg Q2H PRN Administration Breakthrough Pain Rated 7-10 or NPO Hydromorphone HCl 0.5 mg 06/02/25 18:06 Hydromorphone Hcl Inj (*Crx) 1 Mg/Ml Syr IV PUSH Q2H PRN Breakthrough Pain Rated 4-6 or NPO Hydroxyzine Pamoate 50 mg 06/02/25 18:06 Hydroxyzine Pamoate 25 Mg Capsule PO Q4H PRN Itching Ibuprofen 800 mg in 200 mls @ 400 mls/hr 06/02/25 18:06 Caldolor 800 Mg/200 Ml IVPB Q6H PRN Breakthrough Pain Rated 1-3 or NPO Losartan Potassium 25 mg 06/01/25 09:00 06/04/25 08:33 Losartan Potassium 25 Mg Tablet PO 25 mg DAILY TH[place]ON Administration Melatonin 5 mg 06/02/25 21:00 06/03/25 20:28 Melatonin 5 Mg Tablet PO 5 mg HS TH[place]ON Administration Methocarbamol 500 mg 05/29/25 08:56 06/04/25 08:32 Methocarbamol 500 Mg Tablet PO 500 mg BID PRN Administration Muscle Spasm Naloxone HCl 0.1 mg 06/02/25 18:06 Naloxone Hcl 0.4 Mg/Ml Vial IV PUSH Q2M PRN Opiate Reversal Ondansetron HCl 4 mg 05/30/25 09:30 Ondansetron Inj 4 Mg/2 Ml Vial IV PUSH Q6H PRN Nausea And Vomiting Ondansetron HCl 4 mg 06/02/25 18:06 Ondansetron Inj 4 Mg/2 Ml Vial IV PUSH Q4H PRN Nausea And Vomiting Oxycodone/Acetaminophen 1 tablet 06/02/25 18:06 06/03/25 15:22 Oxycodone/Acetaminophen (*Crx) 5-325 Mg Tablet PO 1 tablet Q4H PRN Administration Pain Rated 4-6 Oxycodone/Acetaminophen 1 tab 06/02/25 18:06 06/04/25 14:26 Oxycodone/Acetaminophen (*Crx) 10-325 Mg Tablet PO 1 tab Q6H PRN Administration Pain Rated 7-10 Paroxetine HCl 20 mg 05/29/25 09:00 06/04/25 08:33 Paroxetine 20 Mg Tablet PO 20 mg QAM THOM[place]ON Administration Polyethylene Glycol 17 gm 05/30/25 21:00 06/04/25 08:38 Polyethylene Glycol 3350 17 Gm Powd.Pack PO 17 gm BID THOM[place]ON Administration Polyethylene Glycol 17 gm 06/03/25 09:00 06/04/25 10:12 Polyethylene Glycol 3350 17 Gm Powd.Pack PO Not Given QAM THOMPSON Potassium Chloride 20 meq 06/03/25 09:00 06/04/25 08:33 Potassium Chloride 20 Meq Er Tablet PO 20 meq DAILY THOMPSON Administration Senna/Docusate Sodium 2 tab 05/31/25 17:00 06/04/25 08:34 Senna/Docusate Sodium Tablet PO 2 tab BID TH[place]ON Administration Simvastatin 20 mg 06/02/25 21:00 06/03/25 20:28 Simvastatin 20 Mg Tablet PO 20 mg HS THOMPSON Administration Trazodone HCl 50 mg 06/02/25 18:06 Trazodone Hcl 50 Mg Tablet PO QHS PRN Insomnia Radiology Results: ITS Impressions Hip/Pelvis X-Ray 05/28/25 18:04 IMPRESSION: 1. Mild anterior displacement and 30 degrees varus angulation of a transcervical fracture of the proximal right femur. Head CT 05/28/25 19:14 IMPRESSION: 1. No fracture or acute intracranial process. 2. 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 Chest X-Ray 05/31/25 17:02 Impression: CHF Hip X-Ray 06/02/25 19:54 IMPRESSION: Postoperative changes from right hip arthroplasty. Labs Labs: Laboratory Results - last 24 hr 06/04/25 03:32 WBC 9.0 RBC 3.38 L Hgb 10.4 L Hct 32.0 L MCV 94.7 MCH 30.8 MCHC 32.5 RDW 14.9 H Plt Count 165 MPV 10.8 H Immature Gran % (Auto) 1.0 H Neut % (Auto) 72.5 Lymph % (Auto) 12.2 L [place] % (Auto) 11.6 H Eos % (Auto) 2.4 Baso % (Auto) 0.3 Lymph # (Auto) 1.10 [place] # (Auto) 1.1 H Eos # (Auto) 0.2 Baso # (Auto) 0.0 Abs Immat Gran (auto) 0.09 H Absolute Neuts (auto) 6.6 Absolute Nucleated RBC 0.000 Nucleated RBC % 0.0 Sodium 133 L Potassium 3.7 Chloride 101 Carbon Dioxide 26 Anion Gap 6 BUN 40 H Creatinine 1.46 H Estim Creat Clear Calc 42 Estimated GFR 46 L Glucose 133 H Calcium 8.2 L Quality VTE Prophylaxis VTE prophylaxis: mechanical ordered
[2025-06-04] MEDS: SIMVASTATIN 20 MG TABLET PO (20:28)
[2025-06-04] MEDS: MELATONIN 5 MG TABLET PO (20:28)
[2025-06-05] VITALS (10 sets, daily range): BP systolic 142–152; BP diastolic 48–63; PULSE 68–85; RESP 14–18; TEMP 36.1–36.7; O2SAT 97–99
[2025-06-05] MEDS: oxyCODONE/ACETAMINOPHEN (*CRX) 5-325 MG TABLET 1 TABLET PO (00:47)
[2025-06-05] MEDS: ACETAMINOPHEN 500 MG TABLET 1000 MG PO ×4 (00:49→18:00)
[2025-06-05 05:30] LABS: Hematocrit 31.2 % (42.0-52.0); Hemoglobin 9.8 g/dL (14.0-18.0); Immature Granulocyte Percent A 1.0 % (0-0.5); Lymphocytes Absolute Auto 1.13 K/mm3 (0.9-3.2); Mean Corpuscular HGB Conc 31.4 g/dl (32-36); Mean Corpuscular Hemoglobin 30.5 pg (26-34); Mean Corpuscular Volume 97.2 fl (80-100); Nucleated Red Blood Cells Absolute Auto 0.050 K/mm3 (0.0-0.012); Nucleated Red Blood Cells Perc 0.7 % (0.0-0.2); Platelet Count Result 176 k/mm3 (150-375); Red Blood Count 3.21 M/mm3 (4.6-6.20); White Blood Count 7.4 K/mm3 (4.5-10.0)
[2025-06-05 06:06] LABS: Anion Gap 5 mmol/L (4-12); Blood Urea Nitrogen 49 mg/dL (9-20); Calcium 8.3 mg/dL (8.4-10.2); Carbon Dioxide 28 mmol/L (22-30); Chloride 101 mmol/L (98-107); Estimated CRCL calculation 39 ml/min; Estimated Glomerular Filt Rate 42; Glucose 126 mg/dL (65-110); Potassium 4.2 mmol/L (3.4-5.0); Sodium 134 mmol/L (137-145)
--- NOTE | 2025-06-05 06:56 | P.PNIM_ITS ---
Progress Note: A&P Assessment and Plan (1) Closed right femoral fracture: Code(s): S72.91XA - Unspecified fracture of right femur, initial encounter for closed fracture Status: Acute Assessment and Plan: Lost his balance and fell onto his right buttock Denies loss of consciousness or head strike Head CT: No fracture or acute intracranial process. 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 Hip/pelvis XR: Mild anterior displacement and 30 degrees varus angulation of a transcervical fracture of the proximal right femur. - use IS - neurovasc checks - see order for intervals - SCDs/TEDs, eliquis and plavix - analgesics and antiemetics p.r.n. - bowel regimen: senna, miralax, senna/docusate, Dulcolax - PT/OT: weight bearing as tolerated - care coordination following for placement - ortho consulted s/p right hip hemiarthroplasty with bipolar prosthesis on 06/[address] Brewster Pain better controlled today. Has not required any IV thus far. Continues to work with PT/OT. (2) Acute respiratory failure: Code(s): J96.00 - Acute respiratory failure, unspecified whether with hypoxia or hypercapnia Status: Acute Assessment and Plan: Placed on 2L O2 after dose of Dilaudid. Back on RA - Chest XR 05/28: Bilateral diffuse increased interstitial pattern with peribronchial cuffing consistent with likely congestive heart failure related mild pulmonary edema. Cardiomegaly. - Repeat Chest XR 05/31: CHF -Follow CBC, improving off antibiotics - Remains on home dose of lasix now Remains on room air. (3) Acute exacerbation of chronic heart failure: Code(s): I50.9 - Heart failure, unspecified Status: Acute Assessment and Plan: - Symptoms: new o2 requirement with sob - Current medications: lasix 40 mg BID - Chest XR 05/28: Bilateral diffuse increased interstitial pattern with peribronchial cuffing consistent with likely congestive heart failure related mild pulmonary edema. Cardiomegaly. - Repeat Chest XR 05/31: CHF - Echo 05/19/24: LVEF 50-55% - Monitor vital signs, I&Os, BUN/creatinine, daily weights, neuro status and patient is a fall risk - Monitor serum electrolytes, Keep serum Potassium>4 and serum Magnesium>2 and CBC - Requisition Approver is Dr. Sheth at [facility] and needs to keep regular f/u with him. Remains on room air. Denies shortness of breath. Lungs clear and no edema to the lower extremities on assessment. (4) SAMIR (acute kidney injury): Code(s): N17.9 - Acute kidney failure, unspecified Status: Acute Assessment and Plan: Ddx includes prerenal, cardiorenal, other. Reports he might not have been drinking as much morning prior to admission Continue Losartan 25 mg Follow daily BMP UA no evidence of infection. Monitor I/O Worsening Cr on am labs, will hold lasix 40 BID today and reassess tomorrow. (5) Anemia: Code(s): D64.9 - Anemia, unspecified Status: Acute Assessment and Plan: Hgb slightly downtrending, currently 9.4 on am labs. - No signs of active bleeding - Iron panel and ferritin showing more consistent with anemia of chronic disease especially given elevated ferritin level - B12 and folate WNL - Continue to monitor (6) CAD (coronary artery disease): Code(s): I25.10 - Atherosclerotic heart disease of [place] coronary artery without angina pectoris Status: Acute Assessment and Plan: Resumed Plavix since stent was relatively recent in Sep 2024. His regular development consultant is Dr. Sheth at [facility] and needs to keep regular f/u with him. (7) PAF (paroxysmal atrial fibrillation): Code(s): I48.0 - Paroxysmal atrial fibrillation Status: Acute Assessment and Plan: Carvedilol 25 mg BID Eliquis 5 mg BID (8) S/P aortic valve replacement with bioprosthetic valve: Code(s): Z95.3 - Presence of xenogenic heart valve Status: Acute Time Spent With Patient Time with patient: 25 - 35 minutes Subjective Date/time seen: 06/05/25 06:56 Interval history: 84-year-old male with PMH GERD, hypertension, anemia, AFib on Eliquis, CHF, aortic valve replacement, follows with Dr. Clifton at [facility], COPD, BPH, GIAN untreated due to noncompliance, [id number] diabetes mellitus, lung nodules, hyperlipidemia presents to the hospital for a fall with right hip pain. Patient is pleasant sitting up comfortably in his chair with family at bedside. He states pain is much better controlled today and denies any tingling/numbness or shooting pain to the lower extremities. Care coordination continues to follow for placement. Patient continues work with physical therapy. Patient has no other complaints denying chest pain, shortness a breath, palpitations, nausea/vomiting, abdominal pain, dizziness/lightheadedness, and any signs of active bleeding. Review of Systems Review of Systems: All systems reviewed & are unremarkable except as noted in HPI and below (Subjective) Exam Narrative: AF HR 85 RR 18 SpO2 99 BP 152/61 General: male in no acute respiratory distress who is nontoxic appearing, sitting up in chair HEENT: Normocephalic. Atraumatic. Extraocular movement intact. Sclera clear and anicteric. No facial asymmetry. Chest: Lungs are clear to auscultation bilaterally. CV: Heart was irregularly irregular rate and rhythm. Abd: Abdomen was soft. Nontender. Nondistended. Positive bowel sounds. Ext: No clubbing, cyanosis. DP pulses bilaterally. Slight edema to the right hip with surgical dressing that is clean/dry/intact. Neuro: Patient is alert. Speech is clear. Objective Data Vital Signs Vital Signs: Vital Signs - 24 hr 06/04/25 08:03 06/04/25 08:30 06/04/25 08:35 Temperature Pulse Rate 81 85 Respiratory Rate Blood Pressure Pulse Oximetry Oxygen Delivery Room Air 06/04/25 12:03 06/04/25 13:53 06/04/25 16:03 Temperature 98.0 F Pulse Rate 75 67 77 Respiratory Rate 18 Blood Pressure 121/44 L Pulse Oximetry 95 Oxygen Delivery 06/04/25 20:15 06/04/25 20:15 06/04/25 20:24 Temperature 98.2 F Pulse Rate 65 72 Respiratory Rate 18 Blood Pressure 154/60 H Pulse Oximetry 95 Oxygen Delivery Room Air 06/04/25 20:29 06/05/25 00:00 06/05/25 04:00 Temperature Pulse Rate 72 68 68 Respiratory Rate Blood Pressure Pulse Oximetry Oxygen Delivery 06/05/25 06:00 Temperature 97 F L Pulse Rate 71 Respiratory Rate 18 Blood Pressure 146/54 H Pulse Oximetry 99 Oxygen Delivery Intake/Output Intake/Output: Intake & Output 06/02/25 06/03/25 06/04/25 06/05/25 23:59 23:59 23:59 23:59 Intake Total 950 1710 660 200 Output Total 950 1200 1500 450 Balance 0 510 -840 -570 Meds/Results Medications: Active Medications Generic Name Dose Route Start Last Admin Trade Name Freq PRN Reason Stop Dose Admin Acetaminophen 1,000 mg 05/30/25 16:30 06/05/25 06:25 Acetaminophen 500 Mg Tablet PO 1,000 mg Q6HR THOMPSON Administration Acetaminophen 500 mg 06/02/25 18:06 Acetaminophen 500 Mg Tablet PO Q6H PRN Pain Rated 1-3 Albuterol 1 puff 05/29/25 08:56 Albuterol Sulfate (*Sp) Aerosol 1 Puff INHALATION Q4H PRN Shortness Of Breath Or Wheezing Apixaban 5 mg 06/03/25 09:00 06/04/25 20:28 Apixaban 5 Mg Tablet PO 5 mg Q12HR THOMPSON Administration Atorvastatin Calcium 80 mg 05/29/25 11:15 06/04/25 08:33 Atorvastatin 40 Mg Tablet PO 80 mg DAILY THOMPSON Administration Bisacodyl 5 mg 05/31/25 09:00 06/04/25 08:33 Bisacodyl 5 Mg Tablet Ec PO 5 mg QAM THOMPSON Administration Bisacodyl 10 mg 05/31/25 21:00 06/04/25 07:45 Bisacodyl 10 Mg Suppository RECTAL Not Given Q72H THOMPSON Buspirone HCl 5 mg 05/29/25 09:00 06/04/25 20:29 Buspirone Hcl 5 Mg Tablet PO 5 mg Q12HR THOMPSON Administration Carvedilol 25 mg 05/29/25 21:00 06/04/25 20:29 Carvedilol 25 Mg Tablet PO 25 mg Q12HR THOMPSON Administration Celecoxib 200 mg 05/31/25 17:00 06/04/25 16:16 Celecoxib 200 Mg Capsule PO 200 mg BIDWM THOMPSON Administration Clopidogrel Bisulfate 75 mg 06/03/25 09:00 06/04/25 08:33 Clopidogrel Bisulfate 75 Mg Tablet PO 75 mg DAILY THOMPSON Administration Diazepam 5 mg 05/31/25 21:16 06/04/25 08:34 Diazepam (*Crx) 5 Mg Tablet PO 5 mg BID PRN Administration Muscle Spasm Famotidine 20 mg 06/02/25 21:00 06/04/25 20:29 Famotidine 20 Mg Tablet PO 20 mg Q12HR THOMPSON Administration Furosemide 40 mg 05/30/25 17:25 06/04/25 16:17 Furosemide 40 Mg Tablet PO 40 mg BID THOMPSON Administration Hydromorphone HCl 1 mg 06/02/25 18:06 06/04/25 10:14 Hydromorphone Hcl Inj (*Crx) 1 Mg/Ml Syr IV PUSH 1 mg Q2H PRN Administration Breakthrough Pain Rated 7-10 or NPO Hydromorphone HCl 0.5 mg 06/02/25 18:06 Hydromorphone Hcl Inj (*Crx) 1 Mg/Ml Syr IV PUSH Q2H PRN Breakthrough Pain Rated 4-6 or NPO Hydroxyzine Pamoate 50 mg 06/02/25 18:06 Hydroxyzine Pamoate 25 Mg Capsule PO Q4H PRN Itching Ibuprofen 800 mg in 200 mls @ 400 mls/hr 06/02/25 18:06 Caldolor 800 Mg/200 Ml IVPB Q6H PRN Breakthrough Pain Rated 1-3 or NPO Losartan Potassium 25 mg 06/01/25 09:00 06/04/25 08:33 Losartan Potassium 25 Mg Tablet PO 25 mg DAILY THOMPSON Administration Melatonin 5 mg 06/02/25 21:00 06/04/25 20:28 Melatonin 5 Mg Tablet PO 5 mg HS THOMPSON Administration Methocarbamol 500 mg 05/29/25 08:56 06/04/25 18:02 Methocarbamol 500 Mg Tablet PO 500 mg BID PRN Administration Muscle Spasm Naloxone HCl 0.1 mg 06/02/25 18:06 Naloxone Hcl 0.4 Mg/Ml Vial IV PUSH Q2M PRN Opiate Reversal Ondansetron HCl 4 mg 05/30/25 09:30 Ondansetron Inj 4 Mg/2 Ml Vial IV PUSH Q6H PRN Nausea And Vomiting Ondansetron HCl 4 mg 06/02/25 18:06 Ondansetron Inj 4 Mg/2 Ml Vial IV PUSH Q4H PRN Nausea And Vomiting Oxycodone/Acetaminophen 1 tablet 06/02/25 18:06 06/05/25 00:47 Oxycodone/Acetaminophen (*Crx) 5-325 Mg Tablet PO 1 tablet Q4H PRN Administration Pain Rated 4-6 Oxycodone/Acetaminophen 1 tab 06/02/25 18:06 06/04/25 14:26 Oxycodone/Acetaminophen (*Crx) 10-325 Mg Tablet PO 1 tab Q6H PRN Administration Pain Rated 7-10 Paroxetine HCl 20 mg 05/29/25 09:00 06/04/25 08:33 Paroxetine 20 Mg Tablet PO 20 mg QAM THOMPSON Administration Polyethylene Glycol 17 gm 05/30/25 21:00 06/04/25 16:16 Polyethylene Glycol 3350 17 Gm Powd.Pack PO 17 gm BID THOMPSON Administration Polyethylene Glycol 17 gm 06/03/25 09:00 06/04/25 10:12 Polyethylene Glycol 3350 17 Gm Powd.Pack PO Not Given QAM THOMPSON Potassium Chloride 20 meq 06/03/25 09:00 06/04/25 08:33 Potassium Chloride 20 Meq Er Tablet PO 20 meq DAILY THOMPSON Administration Senna/Docusate Sodium 2 tab 05/31/25 17:00 06/04/25 16:16 Senna/Docusate Sodium Tablet PO 2 tab BID THOMPSON Administration Simvastatin 20 mg 06/02/25 21:00 06/04/25 20:28 Simvastatin 20 Mg Tablet PO 20 mg HS THOMPSON Administration Trazodone HCl 50 mg 06/02/25 18:06 Trazodone Hcl 50 Mg Tablet PO QHS PRN Insomnia Radiology Results: ITS Impressions Hip/Pelvis X-Ray 05/28/25 18:04 IMPRESSION: 1. Mild anterior displacement and 30 degrees varus angulation of a transcervical fracture of the proximal right femur. Head CT 05/28/25 19:14 IMPRESSION: 1. No fracture or acute intracranial process. 2. 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 Chest X-Ray 05/31/25 17:02 Impression: CHF Hip X-Ray 06/02/25 19:54 IMPRESSION: Postoperative changes from right hip arthroplasty. Labs Labs: Laboratory Results - last 24 hr 06/05/25 05:10 WBC 7.4 RBC 3.21 L Hgb 9.8 L Hct 31.2 L MCV 97.2 MCH 30.5 MCHC 31.4 L RDW 14.9 H Plt Count 176 MPV 11.3 H Immature Gran % (Auto) 1.0 H Neut % (Auto) 69.9 Lymph % (Auto) 15.4 L Hand % (Auto) 9.3 H Eos % (Auto) 3.9 Baso % (Auto) 0.5 Lymph # (Auto) 1.13 Hand # (Auto) 0.7 H Eos # (Auto) 0.3 Baso # (Auto) 0.0 Abs Immat Gran (auto) 0.07 H Absolute Neuts (auto) 5.1 Absolute Nucleated RBC 0.050 H Nucleated RBC % 0.7 H Sodium 134 L Potassium 4.2 Chloride 101 Carbon Dioxide 28 Anion Gap 5 BUN 49 H Creatinine 1.57 H Estim Creat Clear Calc 39 Estimated GFR 42 L Glucose 126 H Calcium 8.3 L Quality VTE Prophylaxis VTE prophylaxis: mechanical ordered and pharmacologic ordered
[2025-06-05 08:33] LABS: Vitamin B12 410.0 pg/mL (239-931)
--- NOTE | 2025-06-05 10:00 | P.PNOP_ITS ---
Progress Note: A&P Assessment and Plan (1) S/P hip hemiarthroplasty: Code(s): Z96.649 - Presence of unspecified artificial hip joint Status: Acute Assessment and Plan: POD #3 : RIGHT HIP HEMIARTHROPLASTY WITH BIPOLAR PROSTHESIS Continue PT/OT. WBAT. Walker. HIGH FALL RISK. Continue pain control. Ice Hip. Protect skin. DVT prophylaxis with resumed home anticoagulation. SCDs. Incentive Spirometry Use reviewed. Monitor Dressing. Change prior to discharge. Bowel Regimen. Dispo: due to balance, high fall risk, difficulty with ambulation and activities of daily living would benefit strongly from acute rehab. Subjective Subjective Date/Time Seen: 06/05/25 10:00 Post Op day: 3 Principal diagnosis: Right hip fracture Interval history: POD #3: RIGHT HIP HEMIARTHROPLASTY WITH BIPOLAR PROSTHESIS Patient sitting up in chair. No complaints. feels better today Exam Const: General: comfortable and no acute distress Resp: Effort & Inspection: normal respiratory effort GI: Inspection: non-distended Skin: General skin exam: normal color Other: Incision right hip c/d/i. Surrounding tissue without redness/warmth. Mild swelling consistent with recent surgery. No drainage. Neuro: Cognition (Neuro): normal cognition Speech: normal speech Extrem: Right lower extremity: normal to inspection, normal capillary refill, hip/thigh Details: tenderness Location: of the hip (Thigh soft ) Location: laterally and anteriorly, swelling Location: at the hip, abnormal ROM (limited consistent with recent surgery ) Details: pain with active ROM during and pain with passive ROM during and other (Incision c/d/i. ); no deformity and no unusual warmth, knee Details: normal to inspection; no tenderness and no swelling, lower leg (Negative Gia's Sign ) Details: normal to inspection and no edema; no tenderness, ankle (+ankle dorsiflexion/plantarflexion) Details: normal to inspection and no edema; no tenderness, no swelling and no ecchymosis and foot Details: normal capillary refill, toes with normal ROM, vascular exam Details: dorsalis pedis pulse present and motor-sensory exam Details: light- touch normal; no tenderness Objective Data Vital Signs Vital Signs: Vital Signs - 24 hr 06/04/25 12:03 06/04/25 13:53 06/04/25 16:03 Temperature 98.0 F Pulse Rate 75 67 77 Respiratory Rate 18 Blood Pressure 121/44 L Pulse Oximetry 95 Oxygen Delivery 06/04/25 20:15 06/04/25 20:15 06/04/25 20:24 Temperature 98.2 F Pulse Rate 65 72 Respiratory Rate 18 Blood Pressure 154/60 H Pulse Oximetry 95 Oxygen Delivery Room Air 06/04/25 20:29 06/05/25 00:00 06/05/25 04:00 Temperature Pulse Rate 72 68 68 Respiratory Rate Blood Pressure Pulse Oximetry Oxygen Delivery 06/05/25 06:00 Temperature 97 F L Pulse Rate 71 Respiratory Rate 18 Blood Pressure 146/54 H Pulse Oximetry 99 Oxygen Delivery Intake/Output Intake/Output: Intake & Output 06/02/25 06/03/25 06/04/25 06/05/25 23:59 23:59 23:59 23:59 Intake Total 950 1710 660 440 Output Total 950 1200 1500 450 Balance 0 510 -840 -10 Meds/Results Medications: Active Medications Generic Name Dose Route Start Last Admin Trade Name Freq PRN Reason Stop Dose Admin Acetaminophen 1,000 mg 05/30/25 16:30 06/05/25 06:25 Acetaminophen 500 Mg Tablet PO 1,000 mg Q6HR THOMPSON Administration Acetaminophen 500 mg 06/02/25 18:06 Acetaminophen 500 Mg Tablet PO Q6H PRN Pain Rated 1-3 Albuterol 1 puff 05/29/25 08:56 Albuterol Sulfate (*Sp) Aerosol 1 Puff INHALATION Q4H PRN Shortness Of Breath Or Wheezing Apixaban 5 mg 06/03/25 09:00 06/04/25 20:28 Apixaban 5 Mg Tablet PO 5 mg Q12HR THOMPSON Administration Atorvastatin Calcium 80 mg 05/29/25 11:15 06/04/25 08:33 Atorvastatin 40 Mg Tablet PO 80 mg DAILY THOMPSON Administration Bisacodyl 5 mg 05/31/25 09:00 06/04/25 08:33 Bisacodyl 5 Mg Tablet Ec PO 5 mg QAM THOMPSON Administration Bisacodyl 10 mg 05/31/25 21:00 06/04/25 07:45 Bisacodyl 10 Mg Suppository RECTAL Not Given Q72H THOMPSON Buspirone HCl 5 mg 05/29/25 09:00 06/04/25 20:29 Buspirone Hcl 5 Mg Tablet PO 5 mg Q12HR THOMPSON Administration Carvedilol 25 mg 05/29/25 21:00 06/04/25 20:29 Carvedilol 25 Mg Tablet PO 25 mg Q12HR THOMPSON Administration Celecoxib 200 mg 05/31/25 17:00 06/04/25 16:16 Celecoxib 200 Mg Capsule PO 200 mg BIDWM THOMPSON Administration Clopidogrel Bisulfate 75 mg 06/03/25 09:00 06/04/25 08:33 Clopidogrel Bisulfate 75 Mg Tablet PO 75 mg DAILY THOMPSON Administration Diazepam 5 mg 05/31/25 21:16 06/04/25 08:34 Diazepam (*Crx) 5 Mg Tablet PO 5 mg BID PRN Administration Muscle Spasm Famotidine 20 mg 06/02/25 21:00 06/04/25 20:29 Famotidine 20 Mg Tablet PO 20 mg Q12HR THOMPSON Administration Furosemide 40 mg 05/30/25 17:25 06/04/25 16:17 Furosemide 40 Mg Tablet PO 40 mg On Hold: 06/05/25 07:00 BID THOMPSON Administration Hydromorphone HCl 1 mg 06/02/25 18:06 06/04/25 10:14 Hydromorphone Hcl Inj (*Crx) 1 Mg/Ml Syr IV PUSH 1 mg Q2H PRN Administration Breakthrough Pain Rated 7-10 or NPO Hydromorphone HCl 0.5 mg 06/02/25 18:06 Hydromorphone Hcl Inj (*Crx) 1 Mg/Ml Syr IV PUSH Q2H PRN Breakthrough Pain Rated 4-6 or NPO Hydroxyzine Pamoate 50 mg 06/02/25 18:06 Hydroxyzine Pamoate 25 Mg Capsule PO Q4H PRN Itching Ibuprofen 800 mg in 200 mls @ 400 mls/hr 06/02/25 18:06 Caldolor 800 Mg/200 Ml IVPB Q6H PRN Breakthrough Pain Rated 1-3 or NPO Losartan Potassium 25 mg 06/01/25 09:00 06/04/25 08:33 Losartan Potassium 25 Mg Tablet PO 25 mg DAILY THOMPSON Administration Melatonin 5 mg 06/02/25 21:00 06/04/25 20:28 Melatonin 5 Mg Tablet PO 5 mg HS THOMPSON Administration Methocarbamol 500 mg 05/29/25 08:56 06/04/25 18:02 Methocarbamol 500 Mg Tablet PO 500 mg BID PRN Administration Muscle Spasm Naloxone HCl 0.1 mg 06/02/25 18:06 Naloxone Hcl 0.4 Mg/Ml Vial IV PUSH Q2M PRN Opiate Reversal Ondansetron HCl 4 mg 05/30/25 09:30 Ondansetron Inj 4 Mg/2 Ml Vial IV PUSH Q6H PRN Nausea And Vomiting Ondansetron HCl 4 mg 06/02/25 18:06 Ondansetron Inj 4 Mg/2 Ml Vial IV PUSH Q4H PRN Nausea And Vomiting Oxycodone/Acetaminophen 1 tablet 06/02/25 18:06 06/05/25 00:47 Oxycodone/Acetaminophen (*Crx) 5-325 Mg Tablet PO 1 tablet Q4H PRN Administration Pain Rated 4-6 Oxycodone/Acetaminophen 1 tab 06/02/25 18:06 06/04/25 14:26 Oxycodone/Acetaminophen (*Crx) 10-325 Mg Tablet PO 1 tab Q6H PRN Administration Pain Rated 7-10 Paroxetine HCl 20 mg 05/29/25 09:00 06/04/25 08:33 Paroxetine 20 Mg Tablet PO 20 mg QAM THOMPSON Administration Polyethylene Glycol 17 gm 05/30/25 21:00 06/04/25 16:16 Polyethylene Glycol 3350 17 Gm Powd.Pack PO 17 gm BID THOMPSON Administration Polyethylene Glycol 17 gm 06/03/25 09:00 06/04/25 10:12 Polyethylene Glycol 3350 17 Gm Powd.Pack PO Not Given QAM THOMPSON Potassium Chloride 20 meq 06/03/25 09:00 06/04/25 08:33 Potassium Chloride 20 Meq Er Tablet PO 20 meq DAILY THOMPSON Administration Senna/Docusate Sodium 2 tab 05/31/25 17:00 06/04/25 16:16 Senna/Docusate Sodium Tablet PO 2 tab BID THOMPSON Administration Simvastatin 20 mg 06/02/25 21:00 06/04/25 20:28 Simvastatin 20 Mg Tablet PO 20 mg HS THOMPSON Administration Trazodone HCl 50 mg 06/02/25 18:06 Trazodone Hcl 50 Mg Tablet PO QHS PRN Insomnia Radiology Results: ITS Impressions Hip/Pelvis X-Ray 05/28/25 18:04 IMPRESSION: 1. Mild anterior displacement and 30 degrees varus angulation of a transcervical fracture of the proximal right femur. Head CT 05/28/25 19:14 IMPRESSION: 1. No fracture or acute intracranial process. 2. 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 Chest X-Ray 05/31/25 17:02 Impression: CHF Hip X-Ray 06/02/25 19:54 IMPRESSION: Postoperative changes from right hip arthroplasty. Labs Labs: Laboratory Results - last 24 hr 06/05/25 05:10 WBC 7.4 RBC 3.21 L Hgb 9.8 L Hct 31.2 L MCV 97.2 MCH 30.5 MCHC 31.4 L RDW 14.9 H Plt Count 176 MPV 11.3 H Immature Gran % (Auto) 1.0 H Neut % (Auto) 69.9 Lymph % (Auto) 15.4 L [place] % (Auto) 9.3 H Eos % (Auto) 3.9 Baso % (Auto) 0.5 Lymph # (Auto) 1.13 [place] # (Auto) 0.7 H Eos # (Auto) 0.3 Baso # (Auto) 0.0 Abs Immat Gran (auto) 0.07 H Absolute Neuts (auto) 5.1 Absolute Nucleated RBC 0.050 H Nucleated RBC % 0.7 H Sodium 134 L Potassium 4.2 Chloride 101 Carbon Dioxide 28 Anion Gap 5 BUN 49 H Creatinine 1.57 H Estim Creat Clear Calc 39 Estimated GFR 42 L Glucose 126 H Calcium 8.3 L Vitamin B12 410.0 Folate 4.9
[2025-06-05] MEDS: ATORVASTATIN 40 MG TABLET 80 MG PO (10:02)
[2025-06-05] MEDS: APIXABAN 5 MG TABLET PO ×2 (10:02→20:19)
[2025-06-05] MEDS: CELECOXIB 200 MG CAPSULE PO ×2 (10:02→18:00)
[2025-06-05] MEDS: POTASSIUM CHLORIDE 20 MEQ ER TABLET PO (10:03)
[2025-06-05] MEDS: CLOPIDOGREL BISULFATE 75 MG TABLET PO (10:03)
[2025-06-05] MEDS: BISACODYL 5 MG TABLET EC PO (10:03)
[2025-06-05] MEDS: SENNA/DOCUSATE SODIUM TABLET 2 TAB PO ×2 (10:03→18:00)
[2025-06-05] MEDS: LOSARTAN POTASSIUM 25 MG TABLET PO (10:03)
[2025-06-05] MEDS: FAMOTIDINE 20 MG TABLET PO ×2 (10:03→20:19)
[2025-06-05 11:39] LABS: Iron 21 ug/dL (49-181)
[2025-06-05 11:48] LABS: Percent Iron Saturation 12 % (20-50)
[2025-06-05 12:20] LABS: Ferritin 387.00 ng/mL (11.1-264)
[2025-06-05] MEDS: SIMVASTATIN 20 MG TABLET PO (20:19)
[2025-06-05] MEDS: MELATONIN 5 MG TABLET PO (20:19)
[2025-06-06] VITALS (7 sets, daily range): BP systolic 124–148; BP diastolic 42–60; PULSE 61–69; RESP 16–17; TEMP 36.1–36.9; O2SAT 97–99
[2025-06-06] MEDS: ACETAMINOPHEN 500 MG TABLET 1000 MG PO ×5 (01:15→22:56)
[2025-06-06] MEDS: oxyCODONE/ACETAMINOPHEN (*CRX) 10-325 MG TABLET 1 TAB PO (05:17)
[2025-06-06 05:29] LABS: Hematocrit 29.4 % (42.0-52.0); Hemoglobin 9.4 g/dL (14.0-18.0); Immature Granulocyte Percent A 1.0 % (0-0.5); Lymphocytes Absolute Auto 1.23 K/mm3 (0.9-3.2); Mean Corpuscular HGB Conc 32.0 g/dl (32-36); Mean Corpuscular Hemoglobin 30.8 pg (26-34); Mean Corpuscular Volume 96.4 fl (80-100); Nucleated Red Blood Cells Absolute Auto 0.000 K/mm3 (0.0-0.012); Nucleated Red Blood Cells Perc 0.0 % (0.0-0.2); Platelet Count Result 214 k/mm3 (150-375); Red Blood Count 3.05 M/mm3 (4.6-6.20); White Blood Count 7.9 K/mm3 (4.5-10.0)
[2025-06-06 05:53] LABS: Anion Gap 4 mmol/L (4-12); Blood Urea Nitrogen 40 mg/dL (9-20); Calcium 8.1 mg/dL (8.4-10.2); Carbon Dioxide 28 mmol/L (22-30); Chloride 103 mmol/L (98-107); Estimated CRCL calculation 46 ml/min; Estimated Glomerular Filt Rate 52; Glucose 143 mg/dL (65-110); Potassium 4.2 mmol/L (3.4-5.0); Sodium 135 mmol/L (137-145)
[2025-06-06] MEDS: ATORVASTATIN 40 MG TABLET 80 MG PO (08:30)
[2025-06-06] MEDS: CELECOXIB 200 MG CAPSULE PO ×2 (08:30→17:05)
[2025-06-06] MEDS: APIXABAN 5 MG TABLET PO ×2 (08:30→20:44)
[2025-06-06] MEDS: BISACODYL 5 MG TABLET EC PO (08:30)
[2025-06-06] MEDS: SENNA/DOCUSATE SODIUM TABLET 2 TAB PO ×2 (08:31→17:05)
[2025-06-06] MEDS: CLOPIDOGREL BISULFATE 75 MG TABLET PO (08:31)
[2025-06-06] MEDS: LOSARTAN POTASSIUM 25 MG TABLET PO (08:32)
[2025-06-06] MEDS: FAMOTIDINE 20 MG TABLET PO ×2 (08:32→20:44)
[2025-06-06] MEDS: POTASSIUM CHLORIDE 20 MEQ ER TABLET PO (08:32)
[2025-06-06] MEDS: TAMSULOSIN HCL 0.4 MG CAPSULE PO (08:33)
--- NOTE | 2025-06-06 09:44 | P.PNIM_ITS ---
Progress Note: A&P Assessment and Plan (1) Closed right femoral fracture: Code(s): S72.91XA - Unspecified fracture of right femur, initial encounter for closed fracture Status: Acute Assessment and Plan: Lost his balance and fell onto his right buttock Denies loss of consciousness or head strike Head CT: No fracture or acute intracranial process. 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 Hip/pelvis XR: Mild anterior displacement and 30 degrees varus angulation of a transcervical fracture of the proximal right femur. - use IS - neurovasc checks - see order for intervals - SCDs/TEDs, eliquis and plavix - analgesics and antiemetics p.r.n. - bowel regimen: senna, miralax, senna/docusate, Dulcolax - PT/OT: weight bearing as tolerated - care coordination following for placement - ortho consulted s/p right hip hemiarthroplasty with bipolar prosthesis on 06/[address] Brewster Pain better controlled today. Has not required any IV thus far. Continues to work with PT/OT. 06/06 pt is well controlled with PO meds (2) Acute respiratory failure: Code(s): J96.00 - Acute respiratory failure, unspecified whether with hypoxia or hypercapnia Status: Acute Assessment and Plan: Placed on 2L O2 after dose of Dilaudid. Back on RA - Chest XR 05/28: Bilateral diffuse increased interstitial pattern with peribronchial cuffing consistent with likely congestive heart failure related mild pulmonary edema. Cardiomegaly. - Repeat Chest XR 05/31: CHF -Follow CBC, improving off antibiotics - Remains on home dose of lasix now Remains on room air. (3) Acute exacerbation of chronic heart failure: Code(s): I50.9 - Heart failure, unspecified Status: Acute Assessment and Plan: - Symptoms: new o2 requirement with sob - Current medications: lasix 40 mg BID - Chest XR 05/28: Bilateral diffuse increased interstitial pattern with peribronchial cuffing consistent with likely congestive heart failure related mild pulmonary edema. Cardiomegaly. 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 and needs to keep regular f/u with him. Remains on room air. Denies shortness of breath. Lungs clear and no edema to the lower extremities on assessment. i/o reviewed cr/bun improving, VS stable, lungs clear, no leg edema (4) SAMIR (acute kidney injury): Code(s): N17.9 - Acute kidney failure, unspecified Status: Acute Assessment and Plan: Ddx includes prerenal, cardiorenal, other. Reports he might not have been drinking as much morning prior to admission Continue Losartan 25 mg Follow daily BMP UA no evidence of infection. Monitor I/O Worsening Cr on am labs, will hold lasix 40 BID today and reassess tomorrow. cr/bun improving today will consider resuming lasix daily instead of bid for now (5) Anemia: Code(s): D64.9 - Anemia, unspecified Status: Acute Assessment and Plan: Hgb slightly downtrending, currently 9.4 on am labs. - No signs of active bleeding - Iron panel and ferritin showing more consistent with anemia of chronic disease especially given elevated ferritin level - B12 and folate WNL - Continue to monitor (6) CAD (coronary artery disease): Code(s): I25.10 - Atherosclerotic heart disease of [place] coronary artery without angina pectoris Status: Acute Assessment and Plan: Resumed Plavix since stent was relatively recent in Sep 2024. 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 and needs to keep regular f/u with him. (7) PAF (paroxysmal atrial fibrillation): Code(s): I48.0 - Paroxysmal atrial fibrillation Status: Acute Assessment and Plan: Carvedilol 25 mg BID Eliquis 5 mg BID (8) S/P aortic valve replacement with bioprosthetic valve: Code(s): Z95.3 - Presence of xenogenic heart valve Status: Acute Assessment and Plan: continue eliquis Time Spent With Patient Time with patient: 25 - 35 minutes Subjective Date/time seen: 06/06/25 09:44 Interval history: 84-year-old male with PMH GERD, hypertension, anemia, AFib on Eliquis, CHF, aortic valve replacement, follows with Dr. Clifton at [facility], COPD, BPH, GIAN untreated due to noncompliance, [id number] diabetes mellitus, lung nodules, hyperlipidemia presents to the hospital for a fall with right hip pain. Patient is seen and examined. He reports pain is well controlled and denies any tingling/numbness or shooting pain to the lower extremities. Care coordination following for placement. Patient continues work with physical therapy. Patient is denying chest pain, shortness a breath, palpitations, nausea/vomiting, abdominal pain, dizziness/lightheadedness, and any signs of active bleeding. Review of Systems Review of Systems: All systems reviewed & are unremarkable except as noted in HPI and below (Subjective) Exam Narrative: AF HR 85 RR 18 SpO2 99 BP 152/61 General: male in no acute respiratory distress who is nontoxic appearing, sitting up in chair HEENT: Normocephalic. Atraumatic. Extraocular movement intact. Sclera clear and anicteric. No facial asymmetry. Chest: Lungs are clear to auscultation bilaterally. CV: Heart was irregularly irregular rate and rhythm. Abd: Abdomen was soft. Nontender. Nondistended. Positive bowel sounds. Ext: No clubbing, cyanosis. DP pulses bilaterally. Slight edema to the right hip with surgical dressing that is clean/dry/intact. Neuro: Patient is alert. Speech is clear. Const: General: comfortable and no acute distress Other: A&O x3 HENMT: Mouth: Yes moist mucous membranes Eyes: Pupils: Equal, round and reactive pupils present Neck: Neck: supple Resp: Effort & Inspection: normal respiratory effort Auscultation: clear to auscultation bilaterally Cardio: Rate: regular rate Rhythm: regular rhythm Heart sounds: no murmurs GI: Inspection: non-distended Neuro: Cranial nerves: Yes Equal, round and reactive pupils present Motor exam (neuro): 5/5 motor strength present throughout Extrem: General: no edema Objective Data Vital Signs Vital Signs: Vital Signs - 24 hr 06/05/25 10:00 06/05/25 10:03 06/05/25 13:28 Temperature 97.6 F Pulse Rate 85 85 78 Respiratory Rate 18 16 Blood Pressure 152/61 H 152/63 H Pulse Oximetry 99 97 Oxygen Delivery 06/05/25 20:00 06/05/25 20:00 06/05/25 20:18 Temperature 98.0 F Pulse Rate 77 76 Respiratory Rate 14 Blood Pressure 152/61 H Pulse Oximetry 99 Oxygen Delivery Room Air 06/05/25 21:47 06/06/25 05:45 06/06/25 08:27 Temperature 98.5 F 98 F Pulse Rate 69 63 Respiratory Rate 16 Blood Pressure 142/48 H 138/52 L 146/53 H Pulse Oximetry 99 98 Oxygen Delivery 06/06/25 08:31 Temperature Pulse Rate 61 Respiratory Rate Blood Pressure Pulse Oximetry Oxygen Delivery Intake/Output Intake/Output: Intake & Output 06/03/25 06/04/25 06/05/25 06/06/25 23:59 23:59 23:59 23:59 Intake Total 1710 660 920 300 Output Total 1200 1500 1050 900 Balance 510 -840 -130 -600 Meds/Results Medications: Active Medications Generic Name Dose Route Start Last Admin Trade Name Freq PRN Reason Stop Dose Admin Acetaminophen 1,000 mg 05/30/25 16:30 06/06/25 05:10 Acetaminophen 500 Mg Tablet PO 1,000 mg Q6HR THOMPSON Administration Acetaminophen 500 mg 06/02/25 18:06 Acetaminophen 500 Mg Tablet PO Q6H PRN Pain Rated 1-3 Albuterol 1 puff 05/29/25 08:56 Albuterol Sulfate (*Sp) Aerosol 1 Puff INHALATION Q4H PRN Shortness Of Breath Or Wheezing Apixaban 5 mg 06/03/25 09:00 06/06/25 08:30 Apixaban 5 Mg Tablet PO 5 mg Q12HR THOMPSON Administration Atorvastatin Calcium 80 mg 05/29/25 11:15 06/06/25 08:30 Atorvastatin 40 Mg Tablet PO 80 mg DAILY TH[facility]ON Administration Bisacodyl 5 mg 05/31/25 09:00 06/06/25 08:30 Bisacodyl 5 Mg Tablet Ec PO 5 mg QAM THOM[facility]ON Administration Bisacodyl 10 mg 05/31/25 21:00 06/04/25 07:45 Bisacodyl 10 Mg Suppository RECTAL Not Given Q72H THOMPSON Buspirone HCl 5 mg 05/29/25 09:00 06/06/25 08:31 Buspirone Hcl 5 Mg Tablet PO 5 mg Q12HR THOM[facility]ON Administration Carvedilol 25 mg 05/29/25 21:00 06/06/25 08:31 Carvedilol 25 Mg Tablet PO 25 mg Q12HR THOM[facility]ON Administration Celecoxib 200 mg 05/31/25 17:00 06/06/25 08:30 Celecoxib 200 Mg Capsule PO 200 mg BIDWM THOMPSON Administration Clopidogrel Bisulfate 75 mg 06/03/25 09:00 06/06/25 08:31 Clopidogrel Bisulfate 75 Mg Tablet PO 75 mg DAILY [facility] Administration Diazepam 5 mg 05/31/25 21:16 06/04/25 08:34 Diazepam (*Crx) 5 Mg Tablet PO 5 mg BID PRN Administration Muscle Spasm Famotidine 20 mg 06/02/25 21:00 06/06/25 08:32 Famotidine 20 Mg Tablet PO 20 mg Q12HR TH[facility]ON Administration Furosemide 40 mg 05/30/25 17:25 06/04/25 16:17 Furosemide 40 Mg Tablet PO 40 mg On Hold: 06/05/25 07:00 BID TH[facility]ON Administration Hydromorphone HCl 1 mg 06/02/25 18:06 06/04/25 10:14 Hydromorphone Hcl Inj (*Crx) 1 Mg/Ml Syr IV PUSH 1 mg Q2H PRN Administration Breakthrough Pain Rated 7-10 or NPO Hydromorphone HCl 0.5 mg 06/02/25 18:06 Hydromorphone Hcl Inj (*Crx) 1 Mg/Ml Syr IV PUSH Q2H PRN Breakthrough Pain Rated 4-6 or NPO Hydroxyzine Pamoate 50 mg 06/02/25 18:06 Hydroxyzine Pamoate 25 Mg Capsule PO Q4H PRN Itching Ibuprofen 800 mg in 200 mls @ 400 mls/hr 06/02/25 18:06 Caldolor 800 Mg/200 Ml IVPB Q6H PRN Breakthrough Pain Rated 1-3 or NPO Losartan Potassium 25 mg 06/01/25 09:00 06/06/25 08:32 Losartan Potassium 25 Mg Tablet PO 25 mg DAILY [facility] Administration Melatonin 5 mg 06/02/25 21:00 06/05/25 20:19 Melatonin 5 Mg Tablet PO 5 mg HS THOM[facility]ON Administration Methocarbamol 500 mg 05/29/25 08:56 06/04/25 18:02 Methocarbamol 500 Mg Tablet PO 500 mg BID PRN Administration Muscle Spasm Naloxone HCl 0.1 mg 06/02/25 18:06 Naloxone Hcl 0.4 Mg/Ml Vial IV PUSH Q2M PRN Opiate Reversal Ondansetron HCl 4 mg 05/30/25 09:30 Ondansetron Inj 4 Mg/2 Ml Vial IV PUSH Q6H PRN Nausea And Vomiting Ondansetron HCl 4 mg 06/02/25 18:06 Ondansetron Inj 4 Mg/2 Ml Vial IV PUSH Q4H PRN Nausea And Vomiting Oxycodone/Acetaminophen 1 tablet 06/02/25 18:06 06/05/25 00:47 Oxycodone/Acetaminophen (*Crx) 5-325 Mg Tablet PO 1 tablet Q4H PRN Administration Pain Rated 4-6 Oxycodone/Acetaminophen 1 tab 06/02/25 18:06 06/06/25 05:17 Oxycodone/Acetaminophen (*Crx) 10-325 Mg Tablet PO 1 tab Q6H PRN Administration Pain Rated 7-10 Paroxetine HCl 20 mg 05/29/25 09:00 06/06/25 08:32 Paroxetine 20 Mg Tablet PO 20 mg QAM THOM[facility]ON Administration Polyethylene Glycol 17 gm 05/30/25 21:00 06/06/25 08:32 Polyethylene Glycol 3350 17 Gm Powd.Pack PO 17 gm BID TH[facility]ON Administration Polyethylene Glycol 17 gm 06/03/25 09:00 06/06/25 08:32 Polyethylene Glycol 3350 17 Gm Powd.Pack PO 17 gm QAM THOM[facility]ON Administration Potassium Chloride 20 meq 06/03/25 09:00 06/06/25 08:32 Potassium Chloride 20 Meq Er Tablet PO 20 meq DAILY [facility] Administration Senna/Docusate Sodium 2 tab 05/31/25 17:00 06/06/25 08:31 Senna/Docusate Sodium Tablet PO 2 tab BID [facility] Administration Simvastatin 20 mg 06/02/25 21:00 06/05/25 20:19 Simvastatin 20 Mg Tablet PO 20 mg HS TH[facility]ON Administration Tamsulosin HCl 0.4 mg 06/06/25 09:00 06/06/25 08:33 Tamsulosin Hcl 0.4 Mg Capsule PO 0.4 mg QAM [facility] Administration Trazodone HCl 50 mg 06/02/25 18:06 Trazodone Hcl 50 Mg Tablet PO QHS PRN Insomnia Radiology Results: ITS Impressions Hip/Pelvis X-Ray 05/28/25 18:04 IMPRESSION: 1. Mild anterior displacement and 30 degrees varus angulation of a transcervical fracture of the proximal right femur. Head CT 05/28/25 19:14 IMPRESSION: 1. No fracture or acute intracranial process. 2. 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 Chest X-Ray 05/31/25 17:02 Impression: CHF Hip X-Ray 06/02/25 19:54 IMPRESSION: Postoperative changes from right hip arthroplasty. Labs Labs: Laboratory Results - last 24 hr 06/05/25 06/06/25 11:05 04:49 WBC 7.9 RBC 3.05 L Hgb 9.4 L Hct 29.4 L MCV 96.4 MCH 30.8 MCHC 32.0 RDW 14.7 H Plt Count 214 MPV 11.1 H Immature Gran % (Auto) 1.0 H Neut % (Auto) 69.5 Lymph % (Auto) 15.6 L [place] % (Auto) 9.6 H Eos % (Auto) 3.8 Baso % (Auto) 0.5 Lymph # (Auto) 1.23 [place] # (Auto) 0.8 H Eos # (Auto) 0.3 Baso # (Auto) 0.0 Abs Immat Gran (auto) 0.08 H Absolute Neuts (auto) 5.5 Absolute Nucleated RBC 0.000 Nucleated RBC % 0.0 Sodium 135 L Potassium 4.2 Chloride 103 Carbon Dioxide 28 Anion Gap 4 BUN 40 H Creatinine 1.31 H Estim Creat Clear Calc 46 Estimated GFR 52 L Glucose 143 H Calcium 8.1 L Iron 21 L TIBC 169 L % Saturation 12 L Ferritin 387.00 H Quality VTE Prophylaxis VTE prophylaxis: mechanical ordered and pharmacologic ordered
--- NOTE | 2025-06-06 17:04 | P.PNOP_ITS ---
Progress Note: A&P Assessment and Plan (1) S/P hip hemiarthroplasty: Code(s): Z96.649 - Presence of unspecified artificial hip joint Status: Acute Assessment and Plan: POD #4 : RIGHT HIP HEMIARTHROPLASTY WITH BIPOLAR PROSTHESIS Continue PT/OT. WBAT. Walker. HIGH FALL RISK. Continue pain control. Ice Hip. Protect skin. DVT prophylaxis with resumed home anticoagulation. SCDs. Incentive Spirometry Use reviewed. Monitor Dressing. Change prior to discharge. Bowel Regimen. Dispo: due to balance, high fall risk, difficulty with ambulation and activities of daily living would benefit strongly from acute rehab. Subjective Subjective Date/Time Seen: 06/06/25 17:04 Post Op day: 4 ( Right hip bipolar) Principal diagnosis: right hip fracture Interval history: POD #4: RIGHT HIP HEMIARTHROPLASTY WITH BIPOLAR PROSTHESIS Patient comfortable in bed. No complaints. feels better today Exam Const: General: comfortable and no acute distress Resp: Effort & Inspection: normal respiratory effort Skin: General skin exam: normal color Other: Incision right hip c/d/i. Surrounding tissue without redness/warmth. Mild swelling consistent with recent surgery. No drainage. Neuro: Cognition (Neuro): normal cognition Speech: normal speech Extrem: Right lower extremity: normal to inspection, normal capillary refill, hip/thigh Details: tenderness Location: of the hip (Thigh soft ) Location: laterally and anteriorly, swelling Location: at the hip, abnormal ROM (limited consistent with recent surgery ) Details: pain with active ROM during and pain with passive ROM during and other (Incision c/d/i. ); no deformity and no unusual warmth, knee Details: normal to inspection; no tenderness and no swelling, lower leg (Negative Gia's Sign ) Details: normal to inspection and no edema; no tenderness, ankle (+ankle dorsiflexion/plantarflexion) Details: normal to inspection and no edema; no tenderness, no swelling and no ecchymosis and foot Details: normal capillary refill, toes with normal ROM, vascular exam Details: dorsalis pedis pulse present and motor-sensory exam Details: light- touch normal; no tenderness Objective Data Vital Signs Vital Signs: Vital Signs - 24 hr 06/05/25 20:00 06/05/25 20:00 06/05/25 20:18 Temperature 98.0 F Pulse Rate 77 76 Respiratory Rate 14 Blood Pressure 152/61 H Pulse Oximetry 99 Oxygen Delivery Room Air 06/05/25 21:47 06/06/25 05:45 06/06/25 08:00 Temperature 98.5 F Pulse Rate 69 Respiratory Rate 16 Blood Pressure 142/48 H 138/52 L Pulse Oximetry 99 Oxygen Delivery Room Air 06/06/25 08:27 06/06/25 08:31 06/06/25 13:23 Temperature 98 F Pulse Rate 63 61 61 Respiratory Rate Blood Pressure 146/53 H 124/50 L Pulse Oximetry 98 98 Oxygen Delivery 06/06/25 15:20 Temperature 97 F L Pulse Rate 62 Respiratory Rate 16 Blood Pressure 137/42 L Pulse Oximetry 98 Oxygen Delivery Intake/Output Intake/Output: Intake & Output 06/03/25 06/04/25 06/05/25 06/06/25 23:59 23:59 23:59 23:59 Intake Total 1710 660 920 780 Output Total 1200 1500 1050 900 Balance 510 -840 -130 -120 Meds/Results Medications: Active Medications Generic Name Dose Route Start Last Admin Trade Name Freq PRN Reason Stop Dose Admin Acetaminophen 1,000 mg 05/30/25 16:30 06/06/25 13:21 Acetaminophen 500 Mg Tablet PO 1,000 mg Q6HR TH[facility]ON Administration Acetaminophen 500 mg 06/02/25 18:06 Acetaminophen 500 Mg Tablet PO Q6H PRN Pain Rated 1-3 Albuterol 1 puff 05/29/25 08:56 Albuterol Sulfate (*Sp) Aerosol 1 Puff INHALATION Q4H PRN Shortness Of Breath Or Wheezing Apixaban 5 mg 06/03/25 09:00 06/06/25 08:30 Apixaban 5 Mg Tablet PO 5 mg Q12HR [facility] Administration Atorvastatin Calcium 80 mg 05/29/25 11:15 06/06/25 08:30 Atorvastatin 40 Mg Tablet PO 80 mg DAILY [facility] Administration Bisacodyl 5 mg 05/31/25 09:00 06/06/25 08:30 Bisacodyl 5 Mg Tablet Ec PO 5 mg QAM [facility] Administration Bisacodyl 10 mg 05/31/25 21:00 06/04/25 07:45 Bisacodyl 10 Mg Suppository RECTAL Not Given Q72H [facility] Buspirone HCl 5 mg 05/29/25 09:00 06/06/25 08:31 Buspirone Hcl 5 Mg Tablet PO 5 mg Q12HR [facility] Administration Carvedilol 25 mg 05/29/25 21:00 06/06/25 08:31 Carvedilol 25 Mg Tablet PO 25 mg Q12HR [facility] Administration Celecoxib 200 mg 05/31/25 17:00 06/06/25 08:30 Celecoxib 200 Mg Capsule PO 200 mg BIDWM [facility] Administration Clopidogrel Bisulfate 75 mg 06/03/25 09:00 06/06/25 08:31 Clopidogrel Bisulfate 75 Mg Tablet PO 75 mg DAILY [facility] Administration Diazepam 5 mg 05/31/25 21:16 06/04/25 08:34 Diazepam (*Crx) 5 Mg Tablet PO 5 mg BID PRN Administration Muscle Spasm Famotidine 20 mg 06/02/25 21:00 06/06/25 08:32 Famotidine 20 Mg Tablet PO 20 mg Q12HR [facility] Administration Furosemide 40 mg 05/30/25 17:25 06/04/25 16:17 Furosemide 40 Mg Tablet PO 40 mg On Hold: 06/05/25 07:00 BID [facility] Administration Hydromorphone HCl 1 mg 06/02/25 18:06 06/04/25 10:14 Hydromorphone Hcl Inj (*Crx) 1 Mg/Ml Syr IV PUSH 1 mg Q2H PRN Administration Breakthrough Pain Rated 7-10 or NPO Hydromorphone HCl 0.5 mg 06/02/25 18:06 Hydromorphone Hcl Inj (*Crx) 1 Mg/Ml Syr IV PUSH Q2H PRN Breakthrough Pain Rated 4-6 or NPO Hydroxyzine Pamoate 50 mg 06/02/25 18:06 Hydroxyzine Pamoate 25 Mg Capsule PO Q4H PRN Itching Ibuprofen 800 mg in 200 mls @ 400 mls/hr 06/02/25 18:06 Caldolor 800 Mg/200 Ml IVPB Q6H PRN Breakthrough Pain Rated 1-3 or NPO Losartan Potassium 25 mg 06/01/25 09:00 06/06/25 08:32 Losartan Potassium 25 Mg Tablet PO 25 mg DAILY [facility] Administration Melatonin 5 mg 06/02/25 21:00 06/05/25 20:19 Melatonin 5 Mg Tablet PO 5 mg HS [facility] Administration Methocarbamol 500 mg 05/29/25 08:56 06/04/25 18:02 Methocarbamol 500 Mg Tablet PO 500 mg BID PRN Administration Muscle Spasm Naloxone HCl 0.1 mg 06/02/25 18:06 Naloxone Hcl 0.4 Mg/Ml Vial IV PUSH Q2M PRN Opiate Reversal Ondansetron HCl 4 mg 05/30/25 09:30 Ondansetron Inj 4 Mg/2 Ml Vial IV PUSH Q6H PRN Nausea And Vomiting Ondansetron HCl 4 mg 06/02/25 18:06 Ondansetron Inj 4 Mg/2 Ml Vial IV PUSH Q4H PRN Nausea And Vomiting Oxycodone/Acetaminophen 1 tablet 06/02/25 18:06 06/05/25 00:47 Oxycodone/Acetaminophen (*Crx) 5-325 Mg Tablet PO 1 tablet Q4H PRN Administration Pain Rated 4-6 Oxycodone/Acetaminophen 1 tab 06/02/25 18:06 06/06/25 05:17 Oxycodone/Acetaminophen (*Crx) 10-325 Mg Tablet PO 1 tab Q6H PRN Administration Pain Rated 7-10 Paroxetine HCl 20 mg 05/29/25 09:00 06/06/25 08:32 Paroxetine 20 Mg Tablet PO 20 mg QAM TH[facility] Administration Polyethylene Glycol 17 gm 05/30/25 21:00 06/06/25 08:32 Polyethylene Glycol 3350 17 Gm Powd.Pack PO 17 gm BID TH[facility]ON Administration Polyethylene Glycol 17 gm 06/03/25 09:00 06/06/25 08:32 Polyethylene Glycol 3350 17 Gm Powd.Pack PO 17 gm QAM TH[facility]ON Administration Potassium Chloride 20 meq 06/03/25 09:00 06/06/25 08:32 Potassium Chloride 20 Meq Er Tablet PO 20 meq DAILY [facility] Administration Senna/Docusate Sodium 2 tab 05/31/25 17:00 06/06/25 08:31 Senna/Docusate Sodium Tablet PO 2 tab BID [facility] Administration Simvastatin 20 mg 06/02/25 21:00 06/05/25 20:19 Simvastatin 20 Mg Tablet PO 20 mg HS [facility] Administration Tamsulosin HCl 0.4 mg 06/06/25 09:00 06/06/25 08:33 Tamsulosin Hcl 0.4 Mg Capsule PO 0.4 mg QAM THOM[facility]ON Administration Trazodone HCl 50 mg 06/02/25 18:06 Trazodone Hcl 50 Mg Tablet PO QHS PRN Insomnia Radiology Results: ITS Impressions Hip/Pelvis X-Ray 05/28/25 18:04 IMPRESSION: 1. Mild anterior displacement and 30 degrees varus angulation of a transcervical fracture of the proximal right femur. Head CT 05/28/25 19:14 IMPRESSION: 1. No fracture or acute intracranial process. 2. 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 Chest X-Ray 05/31/25 17:02 Impression: CHF Hip X-Ray 06/02/25 19:54 IMPRESSION: Postoperative changes from right hip arthroplasty. Labs Labs: Laboratory Results - last 24 hr 06/06/25 04:49 WBC 7.9 RBC 3.05 L Hgb 9.4 L Hct 29.4 L MCV 96.4 MCH 30.8 MCHC 32.0 RDW 14.7 H Plt Count 214 MPV 11.1 H Immature Gran % (Auto) 1.0 H Neut % (Auto) 69.5 Lymph % (Auto) 15.6 L [place] % (Auto) 9.6 H Eos % (Auto) 3.8 Baso % (Auto) 0.5 Lymph # (Auto) 1.23 [place] # (Auto) 0.8 H Eos # (Auto) 0.3 Baso # (Auto) 0.0 Abs Immat Gran (auto) 0.08 H Absolute Neuts (auto) 5.5 Absolute Nucleated RBC 0.000 Nucleated RBC % 0.0 Sodium 135 L Potassium 4.2 Chloride 103 Carbon Dioxide 28 Anion Gap 4 BUN 40 H Creatinine 1.31 H Estim Creat Clear Calc 46 Estimated GFR 52 L Glucose 143 H Calcium 8.1 L
[2025-06-06] MEDS: MELATONIN 5 MG TABLET PO (20:44)
[2025-06-06] MEDS: SIMVASTATIN 20 MG TABLET PO (20:44)
[2025-06-07] MEDS: oxyCODONE/ACETAMINOPHEN (*CRX) 5-325 MG TABLET 1 TABLET PO (04:27)
[2025-06-07 05:02] VITALS: BP 131/77; PULSE 80; RESP 18; TEMP 36.9; O2SAT 98
[2025-06-07] MEDS: ACETAMINOPHEN 500 MG TABLET 1000 MG PO ×4 (05:59→22:53)
[2025-06-07 07:21] LABS: Add Urine Microscopic? YES; Appearance Urine Cloudy (Clear); Glucose Urine UA Negative (Negative); Leukocyte Esterase Ur 2+ LEU/UL (Negative); Need Manual Microscopic Reviewed; Nitrate Urine Negative (Negative); Specific Grav Ur 1.025 (1.001-1.035)
--- NOTE | 2025-06-07 08:02 | P.DS_ITS ---
DS: Admitting Diagnosis Discharge Date 06/07 Admitting Diagnosis sob DS: Discharge Diagnosis Discharge Diagnosis (1) Closed right femoral fracture: Code(s): S72.91XA - Unspecified fracture of right femur, initial encounter for closed fracture Status: Acute (2) Acute respiratory failure: Code(s): J96.00 - Acute respiratory failure, unspecified whether with hypoxia or hypercapnia Status: Acute (3) Acute exacerbation of chronic heart failure: Code(s): I50.9 - Heart failure, unspecified Status: Acute (4) SAMIR (acute kidney injury): Code(s): N17.9 - Acute kidney failure, unspecified Status: Acute (5) Anemia: Code(s): D64.9 - Anemia, unspecified Status: Acute (6) CAD (coronary artery disease): Code(s): I25.10 - Atherosclerotic heart disease of [place] coronary artery without angina pectoris Status: Acute (7) PAF (paroxysmal atrial fibrillation): Code(s): I48.0 - Paroxysmal atrial fibrillation Status: Acute (8) S/P aortic valve replacement with bioprosthetic valve: Code(s): Z95.3 - Presence of xenogenic heart valve Status: Acute DS: Summary Hospital Course Hospital Course: # S/P hip hemiarthroplasty Time Spent with Patient Time attestation: Total time spent providing and/or coordinating discharge services: Exam Narrative: AF HR 85 RR 18 SpO2 99 BP 152/61 General: male in no acute respiratory distress who is nontoxic appearing, sitting up in chair HEENT: Normocephalic. Atraumatic. Extraocular movement intact. Sclera clear and anicteric. No facial asymmetry. Chest: Lungs are clear to auscultation bilaterally. CV: Heart was irregularly irregular rate and rhythm. Abd: Abdomen was soft. Nontender. Nondistended. Positive bowel sounds. Ext: No clubbing, cyanosis. DP pulses bilaterally. Slight edema to the right hip with surgical dressing that is clean/dry/intact. Neuro: Patient is alert. Speech is clear. Const: General: comfortable and no acute distress Other: A&O x3 HENMT: Mouth: Yes moist mucous membranes Eyes: Pupils: Equal, round and reactive pupils present Neck: Neck: supple Resp: Effort & Inspection: normal respiratory effort Auscultation: clear to auscultation bilaterally Cardio: Rate: regular rate Rhythm: regular rhythm Heart sounds: no murmurs GI: Inspection: non-distended Neuro: Cranial nerves: Yes Equal, round and reactive pupils present Motor exam (neuro): 5/5 motor strength present throughout Extrem: General: no edema DS: Data Data Completed and Pending Labs on day of discharge: Labs from last 24 hours 06/07/25 05:56 Urine Color Dark yellow Urine Appearance Cloudy H Urine pH 5.0 Ur Specific [place] 1.025 Urine Protein 3+ H Urine Glucose (UA) Negative Urine Ketones Trace H Ur Blood (Man) 3+ H Urine Nitrate Negative Urine Bilirubin Negative Urine Urobilinogen 1.0 Add Ur Microanalysis Reviewed Leukocyte Esterase Rfl 2+ H Urine RBC >100 H Urine WBC >100 H Ur Squamous Epith Cells None seen Urine Bacteria Rare Urine Casts 11-20 Discharge Plan Discharge Consulting providers: Annika Montiel; Keyur Rush; Isaiah Burk; Mckenzie Zaldivar Activity: may shower, no driving and follow weight bearing status Diet: as tolerated Wound Care Instructions: follow printed instructions Discharge Instructions: Postoperative Hip Fracture Instructions Dr. Phoenix Brewster [phone] * Dressing to be changed daily with an island dressing beginning on post op day #2. May stop dressing changes at post op day #14. No sutures/ana maria will need to be removed. Can allow Dermabond to fall off naturally. * Weight bearing: Weight bearing as tolerated. * You may shower with your dressing but do not submerge in a bath tub. * Do not drive or operate machinery until you are released by your surgeon. * Do not walk without a walker for any reason until you are released by your surgeon. * Resume home dose of anticoagulation. * Continue to apply ice to the hip intermittently for additional pain relief. Protect your skin with a towel or pillow case. * Continue to follow strict hip fracture precautions. * Please contact our office with any questions/concerns regarding your hip at [phone]. * Follow up appointment instructions indicated below. Patient Instructions: Apixaban (By mouth) Patient Language: Hungarian Follow-up/Referrals: Phoenix Brewster MD [Physician, Orthopedics] - 07/20/25 9:15 am Discharge Medications: New oxycodone-acetaminophen 5-325 mg Tablet 1 tablet PO Q4-6H PRN (Reason: pain) Qty: 30 0RF Continued apixaban 5 mg tablet 5 mg PO BID Qty: 60 0RF clopidogrel [Plavix] 75 mg tablet 75 mg PO DAILY Qty: 90 0RF No Action (DME) lancets 30 gauge misc See Rx Instructions .Route Rx Instructions: As directed atorvastatin 80 mg tablet 80 mg PO DAILY Qty: 30 0RF carvedilol 25 mg tablet 25 mg PO BID Qty: 180 3RF simvastatin 20 mg tablet 20 mg PO HS (DME) blood-glucose meter [Accu-Chek Guide Glucose Meter] Misc See Rx Instructions .Route Qty: 1 3RF Rx Instructions: Check Blood Glucose 1xday As directed (DME) Accu-Chek Guide test strips Strip See Rx Instructions .Route Qty: 100 3RF Rx Instructions: Check blood glucose 1xday As directed methocarbamol 500 mg tablet 500 mg PO BID PRN (Reason: MUSCLE SPASM) Qty: 10 0RF melatonin 5 mg tablet 5 mg PO HS Qty: 90 1RF albuterol sulfate 90 mcg/actuation HFA aerosol inhaler 1 inh inhalation Q4H PRN (Reason: Shortness Of Breath Or Wheezing) Qty: 8.5 0RF losartan 25 mg tablet 25 mg PO DAILY Qty: 90 1RF pantoprazole [Protonix] 40 mg tablet,delayed release (DR/EC) 40 mg PO QAM potassium chloride [K-Tab] 20 mEq tablet extended release 20 meq PO DAILY Qty: 90 0RF trazodone 50 mg tablet 50 mg PO QHS PRN (Reason: insomnia) Qty: 90 1RF paroxetine HCl 20 mg tablet 20 mg PO QAM Qty: 90 1RF furosemide 40 mg tablet 40 mg PO BID Qty: 90 3RF buspirone 5 mg tablet 5 mg PO Q12HR Qty: 180 0RF Date of admission: 05/28/25 18:27 Primary Care Provider: Barry Ralph Admitting Provider: Daniel Servin Oca Attending physician on admission: Daniel Servin Oca Condition: Stable Quality VTE Prophylaxis VTE prophylaxis: mechanical ordered and pharmacologic ordered
--- NOTE | 2025-06-07 08:28 | PM.IMPN ---
Progress Note: A&P Assessment and Plan (1) Closed right femoral fracture: Code(s): S72.91XA - Unspecified fracture of right femur, initial encounter for closed fracture Status: Acute Assessment and Plan: Lost his balance and fell onto his right buttock Denies loss of consciousness or head strike Head CT: No fracture or acute intracranial process. 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 Hip/pelvis XR: Mild anterior displacement and 30 degrees varus angulation of a transcervical fracture of the proximal right femur. - use IS - neurovasc checks - see order for intervals - SCDs/TEDs, eliquis and plavix - analgesics and antiemetics p.r.n. - bowel regimen: senna, miralax, senna/docusate, Dulcolax - PT/OT: weight bearing as tolerated - care coordination following for placement - ortho consulted s/p right hip hemiarthroplasty with bipolar prosthesis on 06/[address] Brewster Pain better controlled today. Has not required any IV thus far. Continues to work with PT/OT. 06/06 pt is well controlled with PO meds 06/07 apparently auth for rehab, so will need resubmit-anticipate discharge tomorrow then Dr Rush note: Continue PT/OT. WBAT. Walker. HIGH FALL RISK. Continue pain control. Ice Hip. Protect skin. DVT prophylaxis with resumed home anticoagulation. SCDs. Incentive Spirometry Use reviewed. Monitor Dressing. Change prior to discharge. Bowel Regimen. Dispo: due to balance, high fall risk, difficulty with ambulation and activities of daily living would benefit strongly from acute rehab. 06/07 anticipate discharge tomorrow am (2) Acute respiratory failure: Code(s): J96.00 - Acute respiratory failure, unspecified whether with hypoxia or hypercapnia Status: Acute Assessment and Plan: Placed on 2L O2 after dose of Dilaudid. Back on RA - Chest XR 05/28: Bilateral diffuse increased interstitial pattern with peribronchial cuffing consistent with likely congestive heart failure related mild pulmonary edema. Cardiomegaly. - Repeat Chest XR 05/31: CHF -Follow CBC, improving off antibiotics - Remains on home dose of lasix now Remains on room air. resolved (3) Acute exacerbation of chronic heart failure: Code(s): I50.9 - Heart failure, unspecified Status: Acute Assessment and Plan: - Symptoms: new o2 requirement with sob - Current medications: lasix 40 mg BID - Chest XR 05/28: Bilateral diffuse increased interstitial pattern with peribronchial cuffing consistent with likely congestive heart failure related mild pulmonary edema. Cardiomegaly. - Repeat Chest XR 05/31: CHF - Echo 05/19/24: LVEF 50-55% - Monitor vital signs, I&Os, BUN/creatinine, daily weights, neuro status and patient is a fall risk - Monitor serum electrolytes, Keep serum Potassium>4 and serum Magnesium>2 and CBC - Bilingual Sales Consultant is Dr. Sheth at [facility] and needs to keep regular f/u with him. Remains on room air. Denies shortness of breath. Lungs clear and no edema to the lower extremities on assessment. i/o reviewed cr/bun improving, VS stable, lungs clear, no leg edema will resume lasix 40 mg daily, pt will need a close f/u with tariff counsel for review and readjustment of meds if needed as well as recheck of kidney function (4) SAMIR (acute kidney injury): Code(s): N17.9 - Acute kidney failure, unspecified Status: Acute Assessment and Plan: Ddx includes prerenal, cardiorenal, other. Reports he might not have been drinking as much morning prior to admission Continue Losartan 25 mg Follow daily BMP UA no evidence of infection. Monitor I/O Worsening Cr on am labs, will hold lasix 40 BID today and reassess tomorrow. cr/bun improving today resuming lasix daily instead of bid for now will need kidney recheck once discharged and close f/u with cardiolodist (5) Anemia: Code(s): D64.9 - Anemia, unspecified Status: Acute Assessment and Plan: Hgb slightly downtrending, currently 9.4 on am labs. - No signs of active bleeding - Iron panel and ferritin showing more consistent with anemia of chronic disease especially given elevated ferritin level - B12 and folate WNL - Continue to monitor (6) CAD (coronary artery disease): Code(s): I25.10 - Atherosclerotic heart disease of [place] coronary artery without angina pectoris Status: Acute Assessment and Plan: Resumed Plavix since stent was relatively recent in Sep 2024. His regular tariff counsel is Dr. Sheth at [facility] and needs to keep regular f/u with him. (7) PAF (paroxysmal atrial fibrillation): Code(s): I48.0 - Paroxysmal atrial fibrillation Status: Acute Assessment and Plan: Carvedilol 25 mg BID Eliquis 5 mg BID (8) S/P aortic valve replacement with bioprosthetic valve: Code(s): Z95.3 - Presence of xenogenic heart valve Status: Acute Assessment and Plan: continue eliquis Subjective Date/time seen: 06/07/25 08:28 Interval history: 84-year-old male with PMH GERD, hypertension, anemia, AFib on Eliquis, CHF, aortic valve replacement, follows with Dr. Clifton at [facility], COPD, BPH, GIAN untreated due to noncompliance, [id number] diabetes mellitus, lung nodules, hyperlipidemia presents to the hospital for a fall with right hip pain. POD #5: RIGHT HIP HEMIARTHROPLASTY WITH BIPOLAR PROSTHESIS Patient comfortable in bed. No complaints. feels better today, denies chest pain, sob, n/v/d Could not be discharged yesterday due to auth timeframe- care coordination following to resubmit. Anticipate discharge tommorrow. Review of Systems Review of Systems: All systems reviewed & are unremarkable except as noted in HPI and below (Subjective) Exam Narrative: General: male in no acute respiratory distress who is nontoxic appearing, resting in bed. HEENT: Normocephalic. Atraumatic. Extraocular movement intact. Sclera clear and anicteric. No facial asymmetry. Chest: Lungs are clear to auscultation bilaterally. CV: Heart was irregularly irregular rate and rhythm. Abd: Abdomen was soft. Nontender. Nondistended. Positive bowel sounds. Ext: No clubbing, cyanosis. DP pulses bilaterally. Slight edema to the right hip with surgical dressing that is clean/dry/intact. Neuro: Patient is alert. Speech is clear. Const: General: comfortable and no acute distress Other: A&O x3 HENMT: Mouth: Yes moist mucous membranes Eyes: Pupils: Equal, round and reactive pupils present Neck: Neck: supple Resp: Effort & Inspection: normal respiratory effort Auscultation: clear to auscultation bilaterally Cardio: Rate: regular rate Rhythm: regular rhythm Heart sounds: no murmurs GI: Inspection: non-distended Neuro: Cranial nerves: Yes Equal, round and reactive pupils present Motor exam (neuro): 5/5 motor strength present throughout Extrem: General: no edema Objective Data Vital Signs Vital Signs: Vital Signs - 24 hr 06/06/25 08:31 06/06/25 13:23 06/06/25 15:20 Temperature 97 F L Pulse Rate 61 61 62 Respiratory Rate 16 Blood Pressure 124/50 L 137/42 L Pulse Oximetry 98 98 Oxygen Delivery 06/06/25 20:40 06/06/25 22:13 06/07/25 05:02 Temperature 97.5 F L 98.4 F Pulse Rate 69 80 Respiratory Rate 17 18 Blood Pressure 148/60 H 131/77 Pulse Oximetry 97 97 98 Oxygen Delivery Room Air Intake/Output Intake/Output: Intake & Output 06/04/25 06/05/25 06/06/25 06/07/25 23:59 23:59 23:59 23:59 Intake Total 009 834 4643 450 Output Total 1500 1050 1600 600 Balance -840 -130 -580 -150 Meds/Results Medications: Active Medications Generic Name Dose Route Start Last Admin Trade Name Freq PRN Reason Stop Dose Admin Acetaminophen 1,000 mg 05/30/25 16:30 06/07/25 05:59 Acetaminophen 500 Mg Tablet PO 1,000 mg Q6HR THOMPSON Administration Acetaminophen 500 mg 06/02/25 18:06 Acetaminophen 500 Mg Tablet PO Q6H PRN Pain Rated 1-3 Albuterol 1 puff 05/29/25 08:56 Albuterol Sulfate (*Sp) Aerosol 1 Puff INHALATION Q4H PRN Shortness Of Breath Or Wheezing Apixaban 5 mg 06/03/25 09:00 06/06/25 20:44 Apixaban 5 Mg Tablet PO 5 mg Q12HR THOMPSON Administration Atorvastatin Calcium 80 mg 05/29/25 11:15 06/06/25 08:30 Atorvastatin 40 Mg Tablet PO 80 mg DAILY THOMPSON Administration Bisacodyl 5 mg 05/31/25 09:00 06/06/25 08:30 Bisacodyl 5 Mg Tablet Ec PO 5 mg QAM THOMPSON Administration Bisacodyl 10 mg 05/31/25 21:00 06/06/25 19:15 Bisacodyl 10 Mg Suppository RECTAL Not Given Q72H THOMPSON Buspirone HCl 5 mg 05/29/25 09:00 06/06/25 20:44 Buspirone Hcl 5 Mg Tablet PO 5 mg Q12HR THOMPSON Administration Carvedilol 25 mg 05/29/25 21:00 06/06/25 20:44 Carvedilol 25 Mg Tablet PO 25 mg Q12HR THOMPSON Administration Celecoxib 200 mg 05/31/25 17:00 06/06/25 17:05 Celecoxib 200 Mg Capsule PO 200 mg BIDWM THOMPSON Administration Clopidogrel Bisulfate 75 mg 06/03/25 09:00 06/06/25 08:31 Clopidogrel Bisulfate 75 Mg Tablet PO 75 mg DAILY THOMPSON Administration Diazepam 5 mg 05/31/25 21:16 06/04/25 08:34 Diazepam (*Crx) 5 Mg Tablet PO 5 mg BID PRN Administration Muscle Spasm Famotidine 20 mg 06/02/25 21:00 06/06/25 20:44 Famotidine 20 Mg Tablet PO 20 mg Q12HR THOMPSON Administration Furosemide 40 mg 05/30/25 17:25 06/04/25 16:17 Furosemide 40 Mg Tablet PO 40 mg On Hold: 06/05/25 07:00 BID THOMPSON Administration Hydromorphone HCl 1 mg 06/02/25 18:06 06/04/25 10:14 Hydromorphone Hcl Inj (*Crx) 1 Mg/Ml Syr IV PUSH 1 mg Q2H PRN Administration Breakthrough Pain Rated 7-10 or NPO Hydromorphone HCl 0.5 mg 06/02/25 18:06 Hydromorphone Hcl Inj (*Crx) 1 Mg/Ml Syr IV PUSH Q2H PRN Breakthrough Pain Rated 4-6 or NPO Hydroxyzine Pamoate 50 mg 06/02/25 18:06 Hydroxyzine Pamoate 25 Mg Capsule PO Q4H PRN Itching Ibuprofen 800 mg in 200 mls @ 400 mls/hr 06/02/25 18:06 Caldolor 800 Mg/200 Ml IVPB Q6H PRN Breakthrough Pain Rated 1-3 or NPO Losartan Potassium 25 mg 06/01/25 09:00 06/06/25 08:32 Losartan Potassium 25 Mg Tablet PO 25 mg DAILY THOMPSON Administration Melatonin 5 mg 06/02/25 21:00 06/06/25 20:44 Melatonin 5 Mg Tablet PO 5 mg HS THOMPSON Administration Methocarbamol 500 mg 05/29/25 08:56 06/04/25 18:02 Methocarbamol 500 Mg Tablet PO 500 mg BID PRN Administration Muscle Spasm Naloxone HCl 0.1 mg 06/02/25 18:06 Naloxone Hcl 0.4 Mg/Ml Vial IV PUSH Q2M PRN Opiate Reversal Ondansetron HCl 4 mg 05/30/25 09:30 Ondansetron Inj 4 Mg/2 Ml Vial IV PUSH Q6H PRN Nausea And Vomiting Ondansetron HCl 4 mg 06/02/25 18:06 Ondansetron Inj 4 Mg/2 Ml Vial IV PUSH Q4H PRN Nausea And Vomiting Oxycodone/Acetaminophen 1 tablet 06/02/25 18:06 06/07/25 04:27 Oxycodone/Acetaminophen (*Crx) 5-325 Mg Tablet PO 1 tablet Q4H PRN Administration Pain Rated 4-6 Oxycodone/Acetaminophen 1 tab 06/02/25 18:06 06/06/25 05:17 Oxycodone/Acetaminophen (*Crx) 10-325 Mg Tablet PO 1 tab Q6H PRN Administration Pain Rated 7-10 Paroxetine HCl 20 mg 05/29/25 09:00 06/06/25 08:32 Paroxetine 20 Mg Tablet PO 20 mg QAM THOMPSON Administration Polyethylene Glycol 17 gm 05/30/25 21:00 06/06/25 17:06 Polyethylene Glycol 3350 17 Gm Powd.Pack PO 17 gm BID THOMPSON Administration Polyethylene Glycol 17 gm 06/03/25 09:00 06/06/25 08:32 Polyethylene Glycol 3350 17 Gm Powd.Pack PO 17 gm QAM THOMPSON Administration Potassium Chloride 20 meq 06/03/25 09:00 06/06/25 08:32 Potassium Chloride 20 Meq Er Tablet PO 20 meq DAILY THOMPSON Administration Senna/Docusate Sodium 2 tab 05/31/25 17:00 06/06/25 17:05 Senna/Docusate Sodium Tablet PO 2 tab BID THOMPSON Administration Simvastatin 20 mg 06/02/25 21:00 06/06/25 20:44 Simvastatin 20 Mg Tablet PO 20 mg HS THOMPSON Administration Tamsulosin HCl 0.4 mg 06/06/25 09:00 06/06/25 08:33 Tamsulosin Hcl 0.4 Mg Capsule PO 0.4 mg QAM THOMPSON Administration Trazodone HCl 50 mg 06/02/25 18:06 Trazodone Hcl 50 Mg Tablet PO QHS PRN Insomnia Radiology Results: ITS Impressions Hip/Pelvis X-Ray 05/28/25 18:04 IMPRESSION: 1. Mild anterior displacement and 30 degrees varus angulation of a transcervical fracture of the proximal right femur. Head CT 05/28/25 19:14 IMPRESSION: 1. No fracture or acute intracranial process. 2. 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 Chest X-Ray 05/31/25 17:02 Impression: CHF Hip X-Ray 06/02/25 19:54 IMPRESSION: Postoperative changes from right hip arthroplasty. Labs Labs: Laboratory Results - last 24 hr 06/07/25 05:56 Urine Color Dark yellow Urine Appearance Cloudy H Urine pH 5.0 Ur Specific [place] 1.025 Urine Protein 3+ H Urine Glucose (UA) Negative Urine Ketones Trace H Ur Blood (Man) 3+ H Urine Nitrate Negative Urine Bilirubin Negative Urine Urobilinogen 1.0 Add Ur Microanalysis Reviewed Leukocyte Esterase Rfl 2+ H Urine RBC >100 H Urine WBC >100 H Ur Squamous Epith Cells None seen Urine Bacteria Rare Urine Casts 11-20 Quality VTE Prophylaxis VTE prophylaxis: mechanical ordered and pharmacologic ordered
[2025-06-07] MEDS: APIXABAN 5 MG TABLET PO ×2 (09:26→20:23)
[2025-06-07] MEDS: CELECOXIB 200 MG CAPSULE PO ×2 (09:26→17:14)
[2025-06-07] MEDS: ATORVASTATIN 40 MG TABLET 80 MG PO (09:26)
[2025-06-07] MEDS: BISACODYL 5 MG TABLET EC PO (09:27)
[2025-06-07 09:28] VITALS: PULSE 68
[2025-06-07] MEDS: FAMOTIDINE 20 MG TABLET PO ×2 (09:30→20:23)
[2025-06-07] MEDS: SENNA/DOCUSATE SODIUM TABLET 2 TAB PO ×2 (09:30→17:14)
[2025-06-07] MEDS: LOSARTAN POTASSIUM 25 MG TABLET PO (09:30)
[2025-06-07] MEDS: CLOPIDOGREL BISULFATE 75 MG TABLET PO (09:30)
[2025-06-07] MEDS: POTASSIUM CHLORIDE 20 MEQ ER TABLET PO (09:31)
[2025-06-07] MEDS: TAMSULOSIN HCL 0.4 MG CAPSULE PO (09:31)
--- NOTE | 2025-06-07 15:39 | PCOTNOTE ---
Attempted to see pt for OT treatment today. Pt was sleeping in bed at therapist arrival requiring sternal rubbing and verbal cues to wake up. Pt declined to participate in therapy session stating increase fatigue and that he already sat up in recliner for ~1hr due to increase back pain. Pt is educated on purpose and benefits of continued therapy participation for increase independence. Pt states that he is leaving tomorrow to go somewhere for rehab. Pt's spouse present also during session attempt. Will continue per poc duration/frequency tomorrow.
[2025-06-07 20:23] VITALS: PULSE 70
[2025-06-07] MEDS: SIMVASTATIN 20 MG TABLET PO (20:23)
[2025-06-07] MEDS: MELATONIN 5 MG TABLET PO (20:23)
[2025-06-07 21:00] VITALS: BP 146/49; PULSE 68; RESP 18; TEMP 36.7; O2SAT 99
[2025-06-07] MEDS: oxyCODONE/ACETAMINOPHEN (*CRX) 10-325 MG TABLET 1 TAB PO (23:30)
[2025-06-08] MEDS: oxyCODONE/ACETAMINOPHEN (*CRX) 5-325 MG TABLET 1 TABLET PO (02:23)
[2025-06-08 04:28] VITALS: BP 138/51; PULSE 62; RESP 16; TEMP 36.4; O2SAT 98
[2025-06-08] MEDS: ACETAMINOPHEN 500 MG TABLET 1000 MG PO ×3 (05:27→17:21)
[2025-06-08 07:53] LABS: Hematocrit 30.3 % (42.0-52.0); Hemoglobin 9.6 g/dL (14.0-18.0); Mean Corpuscular HGB Conc 31.7 g/dl (32-36); Mean Corpuscular Hemoglobin 30.6 pg (26-34); Mean Corpuscular Volume 96.5 fl (80-100); Platelet Count Result 263 k/mm3 (150-375); Red Blood Count 3.14 M/mm3 (4.6-6.20); White Blood Count 7.6 K/mm3 (4.5-10.0)
[2025-06-08 08:12] LABS: Anion Gap 5 mmol/L (4-12); Blood Urea Nitrogen 29 mg/dL (9-20); Calcium 8.6 mg/dL (8.4-10.2); Carbon Dioxide 26 mmol/L (22-30); Chloride 104 mmol/L (98-107); Estimated CRCL calculation 56 ml/min; Estimated Glomerular Filt Rate > 60; Glucose 129 mg/dL (65-110); Potassium 5.0 mmol/L (3.4-5.0); Sodium 135 mmol/L (137-145)
[2025-06-08 09:45] VITALS: PULSE 74
[2025-06-08] MEDS: FUROSEMIDE 40 MG TABLET PO (09:45)
[2025-06-08] MEDS: SENNA/DOCUSATE SODIUM TABLET 2 TAB PO ×2 (09:45→17:21)
[2025-06-08] MEDS: CLOPIDOGREL BISULFATE 75 MG TABLET PO (09:45)
[2025-06-08] MEDS: LOSARTAN POTASSIUM 25 MG TABLET PO (09:45)
[2025-06-08] MEDS: ATORVASTATIN 40 MG TABLET 80 MG PO (09:45)
[2025-06-08] MEDS: BISACODYL 5 MG TABLET EC PO (09:45)
[2025-06-08] MEDS: CELECOXIB 200 MG CAPSULE PO ×2 (09:45→17:21)
[2025-06-08] MEDS: FAMOTIDINE 20 MG TABLET PO (09:45)
[2025-06-08] MEDS: POTASSIUM CHLORIDE 20 MEQ ER TABLET PO (09:45)
[2025-06-08] MEDS: TAMSULOSIN HCL 0.4 MG CAPSULE PO (09:46)
[2025-06-08] MEDS: APIXABAN 5 MG TABLET PO (09:46)
[2025-06-08] MEDS: oxyCODONE/ACETAMINOPHEN (*CRX) 10-325 MG TABLET 1 TAB PO (09:47)
--- NOTE | 2025-06-08 12:51 | P.DS_ITS ---
DS: Admitting Diagnosis Discharge Date 06/08/2025 Admitting Diagnosis closed right femoral fracture acute respiratory failure acute exacerbation of chronic heart failure samir anemia cad paf s/p aortic valve replacement with bioprosthetic valve DS: Discharge Diagnosis Discharge Diagnosis (1) Closed right femoral fracture: Code(s): S72.91XA - Unspecified fracture of right femur, initial encounter for closed fracture Status: Acute (2) Acute respiratory failure: Code(s): J96.00 - Acute respiratory failure, unspecified whether with hypoxia or hypercapnia Status: Acute (3) Acute exacerbation of chronic heart failure: Code(s): I50.9 - Heart failure, unspecified Status: Acute (4) SAMIR (acute kidney injury): Code(s): N17.9 - Acute kidney failure, unspecified Status: Acute (5) Anemia: Code(s): D64.9 - Anemia, unspecified Status: Acute (6) CAD (coronary artery disease): Code(s): I25.10 - Atherosclerotic heart disease of [place] coronary artery without angina pectoris Status: Acute (7) PAF (paroxysmal atrial fibrillation): Code(s): I48.0 - Paroxysmal atrial fibrillation Status: Acute (8) S/P aortic valve replacement with bioprosthetic valve: Code(s): Z95.3 - Presence of xenogenic heart valve Status: Acute DS: Summary Hospital Course Reason for hospitalization: closed right femoral fracture acute respiratory failure acute exacerbation of chronic heart failure samir anemia cad paf s/p aortic valve replacement with bioprosthetic valve Hospital Course: 84-year-old male with PMH GERD, hypertension, anemia, AFib on Eliquis, CHF, aortic valve replacement, follows with Dr. Clifton at [facility], COPD, BPH, GIAN untreated due to noncompliance, don-[id number] diabetes mellitus, lung nodules, hyperlipidemia presents to the hospital for a fall with right hip pain. 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 Hip/pelvis XR and Mild anterior displacement and 30 degrees varus angulation of a transcervical fracture of the proximal right femur. Ortho consulted. Patient underwent a right hip hemiarthroplasty with bipolar prosthesis on 06/[address] Brewster. Patient was able to resume all anticoagulation and antiplatelet postoperatively per ortho. He had noted anemia but this remained stable. No signs of active bleeding. Patient worked well with PT/OT and is to continue therapy at SNF. Plan for follow up with ortho in the outpatient setting. During admission patient developed acute respiratory failure with hypoxia after receiving a dose of Dilaudid. He was placed on 2 L nasal cannula at the time and a chest x-ray was obtained which showed bilateral diffuse increased interstitial pattern peribronchial cuffing consistent with CHF related mild pulmonary edema. Patient was treated for a CHF exacerbation at that time. Rep eat chest x-ray showed CHF as well. During admission patient was able to wean back to his baseline room air and return to his home for GDMT. He denies any chest pain, palpitations and shortness of breath at time of discharge. He is to follow up with his primary epic cadence specialists as scheduled. Patient developed an SAMIR on admission which resolved throughout hospital course. Patient denied any UTI like symptoms. During admission patient underwent a voiding trial on 06/04 however unsuccessful. Patient was straight cathed for retention at first but again retained on repeat bladder scan. Billings replaced at that time. Started on flomax. Will need urology follow up in the outpatient. setting. Patient had no complaints at time of discharge denying any chest pain, shortness a breath, palpitations, nausea/vomiting, abdominal pain, and dizziness/lightheadedness. Patient discharged to SNF in a stable condition. He is to follow up with his primary care provider in 1 week and the specialist as scheduled. Status at Discharge Functional status at discharge: uses cane/walker Time Spent with Patient Time attestation: Total time spent providing and/or coordinating discharge services: Time spent: Greater than 30 minutes Exam Narrative: AF HR 60 RR 18 Spo2 97 BP 117/47 General: male in no acute respiratory distress who is nontoxic appearing, sitting up in bed HEENT: Normocephalic. Atraumatic. Extraocular movement intact. Sclera clear and anicteric. No facial asymmetry. Chest: Lungs are clear to auscultation bilaterally. CV: Heart was irregularly irregular rate and rhythm. Abd: Abdomen was soft. Nontender. Nondistended. Positive bowel sounds. Ext: No clubbing, cyanosis. DP pulses bilaterally. Slight edema to the right hip with dressing that is clean/dry/intact. Neuro: Patient is alert. Speech is clear. DS: Data Data Completed and Pending Completed studies during hospitalization: hip xr chest xr chest xr head ct hip/pelvis xr Labs on day of discharge: Labs from last 24 hours 06/08/25 07:48 WBC 7.6 RBC 3.14 L Hgb 9.6 L Hct 30.3 L MCV 96.5 MCH 30.6 MCHC 31.7 L RDW 14.6 H Plt Count 263 MPV 10.3 Sodium 135 L Potassium 5.0 Chloride 104 Carbon Dioxide 26 Anion Gap 5 BUN 29 H D Creatinine 1.08 Estim Creat Clear Calc 56 Estimated GFR > 60 Glucose 129 H Calcium 8.6 Discharge Plan Discharge Attending physician on discharge: Jeffrey Nevarez Consulting providers: Annika Montiel; Keyur Rush; Isaiah Burk; Mckenzie Ragland Discharging Clinician: Mckenzie Zaldivar Anticipated Discharge Date/Time: 06/08/25 12:38 Patient Disposition: SNF Activity: may shower, no driving and follow weight bearing status Diet: as tolerated Wound Care Instructions: follow printed instructions Discharge Instructions: Discharge disposition: Postoperative Hip Fracture Instructions Dr. Phoenix Brewster [phone] * Dressing to be changed daily with an island dressing beginning on post op day #2. May stop dressing changes at post op day #14. No sutures/ana maria will need to be removed. Can allow Dermabond to fall off naturally. * Weight bearing: Weight bearing as tolerated. * You may shower with your dressing but do not submerge in a bath tub. * Do not drive or operate machinery until you are released by your surgeon. * Do not walk without a walker for any reason until you are released by your surgeon. * Resume home dose of anticoagulation. * Continue to apply ice to the hip intermittently for additional pain relief. Protect your skin with a towel or pillow case. * Started on oxycodone/acetaminophen as needed for pain, attached is information on this medication Do not drive or operate heavy machinery on this medication * Continue to follow strict hip fracture precautions. * Please contact our office with any questions/concerns regarding your hip at [phone]. * Follow up appointment instructions indicated below. During admission patient failed a voiding trial on 06/04 Billings catheter replaced at that time Continue to monitor urine output Reattempt a voiding trial in 2-3 days If patient again retains then he will need the catheter replaced an a urology referral Patient had an acute CHF exacerbation during admission Keep regular follow up with primary epic cadence specialists Maintain a cardiac diet, 2 g sodium, do not over hydrate Remain active Monitor urine output Daily weights, if you gain more than 3 lb within 1 day or 5 lb in 1 week notify your primary care provider Monitor blood pressures Take caution while standing, rising, or moving Change positions slowly taking a break between each position change If you standing feel dizzy sit back down and take a break Encouraged to continue with yearly vaccinations Return to the emergency department if he developed sudden shortness of breath, chest pain, nausea, vomiting, upset stomach or intractable diarrhea Return to the emergency department if you develop fever greater than 100.5 Follow-up with the primary care physician within 1-2 weeks Thank you for choosing [facility] for your healthcare needs Patient Instructions: Oxycodone/Acetaminophen (By mouth), Apixaban (By mouth), Urinary Retention in Men (ED) Patient Language: Iranian Stand Alone Forms: General Discharge Information Follow-up/Referrals: Phoenix Brewster MD [Physician, Orthopedics] - 07/20/25 9:15 am Barry Ralph MD [Primary Care Provider, Family Practice] - 1 Week Discharge Medications: New oxycodone-acetaminophen 5-325 mg Tablet 1 tablet PO Q4-6H PRN (Reason: pain) Qty: 30 0RF tamsulosin 0.4 mg Capsule 0.4 mg PO QAM Qty: 30 0RF oxycodone-acetaminophen 5-325 mg tablet 1 tablet PO Q4H PRN (Reason: pain) Qty: 6 0RF Continued (DME) lancets 30 gauge misc See Rx Instructions .Route Rx Instructions: As directed apixaban 5 mg tablet 5 mg PO BID Qty: 60 0RF atorvastatin 80 mg tablet 80 mg PO DAILY Qty: 30 0RF carvedilol 25 mg tablet 25 mg PO BID Qty: 180 3RF simvastatin 20 mg tablet 20 mg PO HS (DME) blood-glucose meter [Accu-Chek Guide Glucose Meter] Misc See Rx Instructions .Route Qty: 1 3RF Rx Instructions: Check Blood Glucose 1xday As directed (DME) Accu-Chek Guide test strips Strip See Rx Instructions .Route Qty: 100 3RF Rx Instructions: Check blood glucose 1xday As directed methocarbamol 500 mg tablet 500 mg PO BID PRN (Reason: MUSCLE SPASM) Qty: 10 0RF melatonin 5 mg tablet 5 mg PO HS Qty: 90 1RF albuterol sulfate 90 mcg/actuation HFA aerosol inhaler 1 inh inhalation Q4H PRN (Reason: Shortness Of Breath Or Wheezing) Qty: 8.5 0RF losartan 25 mg tablet 25 mg PO DAILY Qty: 90 1RF pantoprazole [Protonix] 40 mg tablet,delayed release (DR/EC) 40 mg PO QAM potassium chloride [K-Tab] 20 mEq tablet extended release 20 meq PO DAILY Qty: 90 0RF trazodone 50 mg tablet 50 mg PO QHS PRN (Reason: insomnia) Qty: 90 1RF paroxetine HCl 20 mg tablet 20 mg PO QAM Qty: 90 1RF furosemide 40 mg tablet 40 mg PO BID Qty: 90 3RF buspirone 5 mg tablet 5 mg PO Q12HR Qty: 180 0RF clopidogrel [Plavix] 75 mg tablet 75 mg PO DAILY Qty: 90 0RF Date of admission: 05/28/25 18:27 Primary Care Provider: Barry Ralph Admitting Provider: Daniel Servin Oca Attending physician on admission: Daniel Servin Oca Condition: Stable Hospitalist MIPS Heart Failure (Exclusion) Patient has history of Heart Transplant or Left Ventricular Assistive Device?: No IF YES, STOP HERE Heart Failure (Qualifier) Patient has current or prior documentation of LVEF less than or equal to 40%, or mod/servere depressed LVSF?: No IF NO, STOP HERE
[2025-06-08 13:50] VITALS: BP 117/47; PULSE 60; RESP 18; TEMP 36.4; O2SAT 97
== END 2025-06-08 17:50 | DRG 521 ==
LOC: ANHED 18:27 → ANHIMU 19:18 → ANH2MED 19:33
PROVIDERS: General Practice; Nurse Practitioner Acute Care; Orthopaedic Surgery; Admitting Provider Student in an Organized Health Care Education/Training Program; Emergency Provider Student in an Organized Health Care Education/Training Program; PCP Family Medicine; Visit Provider Student in an Organized Health Care Education/Training Program
PROC: 0SR902A Replacement of Right Hip Joint with Metal on Polyethylene Synthetic Substitute, Uncemented, Open Approach (ICD-10-PCS; CPT 27125; principal; 2025-06-02 11:30)
DX: S72.031A Displaced midcervical fracture of right femur, initial encounter for closed fracture (principal); I50.33 Acute on chronic diastolic (congestive) heart failure; J96.01 Acute respiratory failure with hypoxia; N17.9 Acute kidney failure, unspecified; I48.0 Paroxysmal atrial fibrillation; W19.XXXA Unspecified fall, initial encounter; K59.00 Constipation, unspecified; R33.9 Retention of urine, unspecified; D64.9 Anemia, unspecified; D72.829 Elevated white blood cell count, unspecified; E11.51 Type 2 diabetes mellitus with diabetic peripheral angiopathy without gangrene; E78.5 Hyperlipidemia, unspecified; G47.33 Obstructive sleep apnea (adult) (pediatric); I11.0 Hypertensive heart disease with heart failure; I69.398 Other sequelae of cerebral infarction; I25.2 Old myocardial infarction; I25.10 Atherosclerotic heart disease of native coronary artery without angina pectoris; J44.9 Chronic obstructive pulmonary disease, unspecified; M47.816 Spondylosis without myelopathy or radiculopathy, lumbar region; N40.0 Benign prostatic hyperplasia without lower urinary tract symptoms; R91.8 Other nonspecific abnormal finding of lung field; Z85.828 Personal history of other malignant neoplasm of skin; Z79.01 Long term (current) use of anticoagulants; Z95.5 Presence of coronary angioplasty implant and graft; Z79.02 Long term (current) use of antithrombotics/antiplatelets; Z91.199 Patient's noncompliance with other medical treatment and regimen due to unspecified reason; Z95.3 Presence of xenogenic heart valve
CPT/HCPCS: 36415; 70450; 71045; 73501; 73502; 80048; 80053; 81001; 81003; 82570; 82607; 82728; 82746; 83540; 83550; 83735; 84145; 84300; 84540; 85025; 85027; 85055; 85610; 85730; 86850; 86900; 86901; 87086; 87186; 93005; 97110; 97162; 97166; 97530; 97535; 99285; J0690; A9270; C1776; J0166; J1171; J1644; J1938; J2003; J2270; J2405; J2704; J2795; J3010; J3290; J7120

== ENCOUNTER 2025-06-09 12:04 | Emergency (ER) | payer MEDICARE, SELFPAY ==
[2025-06-09 11:56] VITALS: BP 187/88; PULSE 99; RESP 18; TEMP 36.9; O2SAT 97
--- NOTE | 2025-06-09 12:36 | ED_ITS ---
HPI - General Adult General Chief complaint: Unspecified Stated complaint: doesnt want to be at facility anymore Source: patient Mode of arrival: EMS Limitations: no limitations History of Present Illness HPI narrative: This is a an 84-year-old male with history aortic valve replacement, AFib CHF, diabetes, CAD, recent hip fracture status post operative intervention who presents to the ED for worsening pain and request to change rehab facilities or go home. Patient states that he believes he has been mistreated [facility]. He states that it is too dark there and that he is not taking the pain medicines that he is requesting. He is just asking to go home at this time. He states that he is only minimally able to walk at this time but PT here in the hospital last week said that he was doing well. Denies any falls or new pains at this time. Related Data Home Medications ?Medication ?Instructions ?Recorded ?Confirmed ?Last Taken ?Type lancets 30 gauge 12/27/23 05/28/25 Unknown H istory pantoprazole 40 mg tablet,delayed 40 mg PO QAM 5 05/28/25 Unknown History release (Protonix) simvastatin 20 mg tablet 20 mg PO HS 05/28/25 5 05/27/25 History Allergies Allergy/AdvReac Type Severity Reaction Status Date / Time metformin AdvReac Intermediate Diarrhea Verified 05/28/25 17:37 Review of Systems Review of Systems: Gen.: Denies fevers or chills Eyes: Denies eye pain or visual change ENT: Denies congestion Respiratory: Denies shortness of breath or cough CV: Denies chest pain or palpitations GI: Denies abdominal pain nausea, emesis or diarrhea denies burning, urgency, frequency or hematuria Musculoskeletal: As per HPI Neuro: Denies numbness, tingling, weakness or focal weakness Skin: Denies rash Except as documented, all other systems reviewed and negative [facility] Past Medical History Medical History Fracture of femoral neck, right, closed Lumbar stenosis Lumbar spondylosis Squamous cell carcinoma Paroxysmal atrial fibrillation Hyperlipidemia Hypertension Transient ischemic attack Diet-controlled type 2 diabetes mellitus Chronic obstructive pulmonary disease Chronic anticoagulation Heart failure with preserved ejection fraction EF 50 to 55% in 05/09/2024 Coronary artery disease Right-sided extracranial carotid artery stenosis Aortic valve disease status post bioprosthetic aortic valve replacemen Surgical History Surgical History S/P hip hemiarthroplasty History of cataract extraction History of coronary angioplasty with insertion of stent (2023) History of aortic valve replacement with bioprosthetic valve x2 Family History Family History Father Hypertension Heart disease Mother Cancer Diabetes mellitus Hypertension Social History Social History Social History: Surrogate medical decision maker: Jorge Pryor, spouse. Code status: Full code. Smoking status: Never smoker Alcohol intake: never Substance use: never Substance use type: does not use Do You Feel Safe in your Home?: Yes Lack of Transportation: No Lack of Food: Never True Current Housing: I Have Housing Concerned About Future Housing: No Difficulty Paying Gas/Electric Bills: No Difficulty Paying for Meds: No Currently Unemployed: No Education: Decline to Answer Difficulty w/ Childcare or Family Care: No Living arrangements: with family Occupation/Education: retired Spiritual care concerns: No Exam Narrative: APPEARANCE: No acute distress, nontoxic, resting in bed EYES: EOMI HEENT: Normocephalic, atraumatic, OMM RESPIRATORY: No respiratory distress Clear to auscultation bilaterally with no rhonchi wheezing or rales. CARDIOVASCULAR: Regular rate and rhythm without murmurs rubs or gallops. ABDOMINAL: Soft, nontender, nondistended, no rebound or guarding MUSCULOSKELETAl: Pain with range of motion of the right hip. No clubbing, cyanosis or edema. NEURO: Awake and alert. Following commands, speech normal, no focal deficits SKIN:: Warm, dry. No rashes lesions or abrasions PSYCHIATRIC: Normal affect/mood, Course Vital Signs Vital signs: Vital Signs Temperature 98.5 F 06/09/25 11:56 Pulse Rate 99 06/09/25 11:56 Respiratory Rate 18 06/09/25 11:56 Blood Pressure 187/88 H 06/09/25 11:56 Pulse Oximetry 97 06/09/25 11:56 Oxygen Delivery Room Air 06/09/25 11:56 Temperature 98.5 F 06/09/25 11:56 Pulse Rate 99 06/09/25 11:56 Respiratory Rate 18 06/09/25 11:56 Blood Pressure 187/88 H 06/09/25 11:56 Pulse Oximetry 97 06/09/25 11:56 Oxygen Delivery Room Air 06/09/25 11:56 Medical Decision Making MDM Narrative Medical decision making narrative: 84-year-old male presenting for discontent with his rehab facility and right hip pain. On initial evaluation, patient was in no acute distress, afebrile, hemodynamically stable. The patient reported his pain was not new. But no concerning exam findings. Case Management did come and evaluate the patient and they were able to discuss options with the patient and he is amenable to going back to [facility] for pain management. Patient was given a dose of oxycodone here. Sounded that he may be getting anxious at night so he will be given a prescription for hydroxyzine to take at night as needed for his anxiety. Patient was agreeable to this plan. Given strict return precautions. Differential Diagnosis Differential Diagnosis: Postop pain, inadequate pain control, anxiety Medical Records Medical records reviewed: Yes I reviewed the external patient's medical records. Medical records narrative: Patient seen in this facility for right hip fracture week ago, discharged yesterday to [facility]. Vital Signs Vital Signs: Vital Signs Temperature 98.5 F 06/09/25 11:56 Pulse Rate 99 06/09/25 11:56 Respiratory Rate 18 06/09/25 11:56 Blood Pressure 187/88 H 06/09/25 11:56 Pulse Oximetry 97 06/09/25 11:56 Oxygen Delivery Room Air 06/09/25 11:56 Temperature 98.5 F 06/09/25 11:56 Pulse Rate 99 06/09/25 11:56 Respiratory Rate 18 06/09/25 11:56 Blood Pressure 187/88 H 06/09/25 11:56 Pulse Oximetry 97 06/09/25 11:56 Oxygen Delivery Room Air 06/09/25 11:56 Discharge Plan Discharge Clinical Impression: Closed hip fracture Patient Disposition: Home Condition: Stable Instructions: Antibiotic Form Additional Instructions: Take hydroxyzine as needed at night for anxiety. Continue PT program at [facility]. Return to the ED for any new or worsening symptoms. Patient Language: Danish Prescriptions: New hydroxyzine HCl 25 mg tablet 25 mg PO HS PRN (Reason: anxiety) Qty: 30 0RF No Action (DME) lancets 30 gauge misc See Rx Instructions .Route Rx Instructions: As directed apixaban 5 mg tablet 5 mg PO BID Qty: 60 0RF atorvastatin 80 mg tablet 80 mg PO DAILY Qty: 30 0RF carvedilol 25 mg tablet 25 mg PO BID Qty: 180 3RF simvastatin 20 mg tablet 20 mg PO HS oxycodone-acetaminophen 5-325 mg Tablet 1 tablet PO Q4-6H PRN (Reason: pain) Qty: 30 0RF tamsulosin 0.4 mg Capsule 0.4 mg PO QAM Qty: 30 0RF oxycodone-acetaminophen 5-325 mg tablet 1 tablet PO Q4H PRN (Reason: pain) Qty: 6 0RF (DME) blood-glucose meter [Accu-Chek Guide Glucose Meter] Misc See Rx Instructions .Route Qty: 1 3RF Rx Instructions: Check Blood Glucose 1xday As directed (DME) Accu-Chek Guide test strips Strip See Rx Instructions .Route Qty: 100 3RF Rx Instructions: Check blood glucose 1xday As directed methocarbamol 500 mg tablet 500 mg PO BID PRN (Reason: MUSCLE SPASM) Qty: 10 0RF melatonin 5 mg tablet 5 mg PO HS Qty: 90 1RF albuterol sulfate 90 mcg/actuation HFA aerosol inhaler 1 inh inhalation Q4H PRN (Reason: Shortness Of Breath Or Wheezing) Qty: 8.5 0RF losartan 25 mg tablet 25 mg PO DAILY Qty: 90 1RF pantoprazole [Protonix] 40 mg tablet,delayed release (DR/EC) 40 mg PO QAM potassium chloride [K-Tab] 20 mEq tablet extended release 20 meq PO DAILY Qty: 90 0RF trazodone 50 mg tablet 50 mg PO QHS PRN (Reason: insomnia) Qty: 90 1RF paroxetine HCl 20 mg tablet 20 mg PO QAM Qty: 90 1RF furosemide 40 mg tablet 40 mg PO BID Qty: 90 3RF buspirone 5 mg tablet 5 mg PO Q12HR Qty: 180 0RF clopidogrel [Plavix] 75 mg tablet 75 mg PO DAILY Qty: 90 0RF Follow-up/Referrals: Barry Ralph MD [Primary Care Provider, Family Practice]
[2025-06-09] MEDS: oxyCODONE HCL (*CRX) 5 MG TAB IR PO (12:48)
--- OUTSIDE RECORDS SUMMARY | 2025-06-09 15:44 | XMS_ITS | Encounter Summary ---
Author Organization [facility] Address [address] [place] [address] Phone Care Team Providers Care Milanese Knitting Machine Operator Name Role Phone Barry Ralph MD Primary Care Provider [phone] Rehan Sheth MD Unavailable [phone] Encounter Details Date Type Department Care Team (Late st Contact Info) Description 05/21/2025 Telephone [facility] Medicine Cardiology [address] [facility] Advanced Medicine [address]th [place] [address] [place] [address] Rehan Sheth MD [address] [facility] [address] [place] [address] Social History Tobacco Use Types Packs/Day Years Used Date Smoking Tobacco: Never Smokeless Tobacco: Never [facility] Utilities Answer Date Recorded In the past 12 months has [employer] electric, gas, oil, or water company threatened to shut off services in your home? No 09/15/2024 Social Connection and Isolation Panel Answer Date Recorded In a typical week, [...] any clubs o r organizations such as mu-ism groups, unions, fraternal or athletic groups, or school groups? No 09/15/2024 How often do you attend meet ings of the clubs or organizations you belong to? Never 09/15/2024 Are you , , di vorced, , never , or living with a partner? 09/15/2024 AUDIT-C Answer Date Recorded Q1: How often do you have a drink containing alcohol? Never 01/13/2025 Q2: How many drinks containi ng alcohol do you have on a typical day when you are drinking? Patient does not drink Q3: How often do you have si x or more drinks on one occasion? Never 01/13/2025 Overall Financial Resource Strain (CARDIA) Answe r Date Recorded How hard is it for you to pa y for the very basics like food, housing, medical care, and heating? Not hard at all 09/15/2024 PHQ-2 Answer Date Recorded PHQ-2 Total Score 0 09/12/2024 [facility] - Occupational Stress Questionnaire Answer Date [...] place to sleep or slept in a nursing home (including now)? No 01/01/2024 Housing Stability [...] were you homeless or living in a nursing home (including now)? No 09/15/2024 Personal Safety Answer Date Recorded Have you ever been in or are you currently in a harmful physical or emotional relationship or is someone making you feel afraid or unsafe? 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 Pt states he will have some come by office to slat pickler Eliquis samples, however we had no Jardiance samples available in office. I informed pt that he needs to have a months worth of Jardiance filled at his pharmacy. Pt was agreeable to this plan. * Telephone Encounter - Ingris Quintana RN - 05/21/2025 10:55 AM CDT Awaiting MA response if samples available. * Telephone Encounter - Salina Odom - 05/21/2025 10:51 AM CDT Domenic Patient would like a return call regarding samples for Jardiance and Eliquis. He can be reached at [phone] documented in this encounter Plan of Treatment Not on file documented as of this encounter Goals Goal Patient Goal Type Associated Problems Recent Progress Patient-Stated? Author CCM Chronic Pain Care Plan Chronic Care Management Improving( 10:49 AM IT SYSTEMS ANALYST CONSULTANT) Nenita Sanchez, RN Note: Problem: Chronic Pain Goals: 1. Minimize further functional decline 2. Maximize quality of life 3. Control pain Strategies: - Activity/exercise program recommendation - Conservative stepwise pain medicine strategy with multi-disciplinary approach - Recommend healthy lifestyle strategies and compensatory methods as needed documented as of this encounter Visit Diagnoses Not on filedocumented in this encounter Discontinued Medications Medication Sig Discontinue Reason Start Date End Da te apixaban (ELIQUIS) 5 mg tabletIndications:atrial fibrillation Take 1 tablet (5 mg total) by mouth 2 (two) times a day Reorder 04/30/2025 05/21/2025 documented as of this encounter Care Teams Milanese Knitting Machine Operator Relationship Specialty Start Date End Date Barry Ralph MD PCP - General Family Practice 05/22/24 [place] [address] [place] [id number] Consulting Physician Cardiology 09/09/24 documented as of this encounter
--- OUTSIDE RECORDS SUMMARY | 2025-06-09 15:44 | XMS_ITS | Clinical Summary ---
Author Organization [facility] Address [address] [place] [address] Care Team Providers Care Manager Rn Name Role Phone Barry Ralph MD Primary Care Provider + [phone] Rehan Sheth MD Unavailable [phone] Allergies Active Allergy Reactions Criticality Noted Date Comments Metformin Diarrhea High 12/18/2024 Medications albuterol HFA (PROVENTIL HFA,VENTOLIN HFA,PROAIR HFA) 90 mcg/actuation inhaler Inhale 2 puffs as needed for shortness of breath 015 Active lancets (OneTouch Delica Plus Lancet) 30 gauge miscIndications:Ty pe 2 diabetes mellitus with hyperosmolarity without coma, without long-term current use of insulin (HCC) Use to check blood sugar 3x daily 300 each 2 022 Active blood glucose diagnostic (True Metrix Glucose Test Strip) stripIndications:T ype 2 diabetes mellitus with hyperosmolarity without coma, without long-term current use of insulin ([facility]) TEST BLOOD SUGAR EVERY DAY 100 strip 3 022 Active PARoxetine (PAXIL) 20 mg tablet Take 1 tablet (20 mg total) by mouth every morning 90 tablet 3 023 Active methocarbamoL (ROBAXIN) 500 mg tabletIndications: Chronic midline low back pain without sciatica Take 1 tablet (500 mg total) by mouth 2 (two) times a day as needed for muscle spasms 60 tablet 1 024 Active clopidogreL (PLAVIX) 75 mg tabletIndications: Thrombosis Prevention after PCI Take 1 tablet (75 mg total) by mouth daily 30 tablet 3 024 Active potassium chloride ER 20 mEq CR tablet Take 1 tablet (20 mEq total) by mouth daily 025 Active busPIRone (BUSPAR) 5 mg tablet Take 1 tablet (5 mg total) by mouth 2 (two) times a day 025 Active melatonin 5 mg tablet Take 1 tablet (5 mg total) by mouth nightly at bedtime. 025 Active traZODone (DESYREL) 50 mg tablet Take 1 tablet (50 mg total) by mouth nightly 025 Active losartan (COZAAR) 25 mg tablet Take 1 tablet (25 mg total) by mouth daily Active furosemide (LASIX) 40 mg tablet Take 1 tablet (40 mg total) by mouth 2 (two) times a day 180 tablet 3 025 Active atorvastatin (LIPITOR) 80 mg tablet Take 1 tablet (80 mg total) by mouth daily 90 tablet [address] (PROTONIX) 40 mg EC tablet TAKE 1 TABLET BY MOUTH EVERY DAY 90 tablet 3 025 Active carvediloL (COREG) 25 mg tablet TAKE 1 TABLET BY MOUTH TWICE DAILY WITH MEALS 200 tablet 2 025 Active apixaban (ELIQUIS) 5 mg tabletIndications: atrial fibrillation Take 1 tablet (5 mg total) by mouth 2 (two) times a day 180 tablet 3 025 Active empagliflozin (JARDIANCE) 10 mg tablet Take 1 tablet (10 mg total) by mouth daily 30 tablet 11 025 2025 Active apixaban (ELIQUIS) 5 mg tabletIndications: atrial fibrillation Take 1 tablet (5 mg total) by mouth 2 (two) times a day 180 tablet 3 025 2024 Discontinued(R eorder) empagliflozin (JARDIANCE) 10 mg tablet Take 1 tablet (10 mg total) by mouth daily 30 tablet 11 025 2024 Discontinued empagliflozin (JARDIANCE) 10 mg tablet Take 1 tablet (10 mg total) by mouth daily 025 2024 Discontinued(R eorder) Active Problems Problem Noted Date Diagnosed Date Acute on chronic diastolic (congestive) heart fa ilure 10/18/2024 Occlusion and stenosis of bilateral carotid dimitri radha 10/18/2024 Presence of coronary angioplasty implant and gra ft 10/18/2024 Chest pain, unspecified type 09/11/2024 Coronary artery disease invo lving [place] coronary artery of [place] heart with angina pectoris 09/10/2024 Internal carotid [...] to ostial circ; RCA with a known CUSTOMER ACQUISITION SPECIALIST (angiography not performed). -s/p Successful PCI to [...] Plan (05/20/2024 11:34 AM CDT): Went to [facility] 05/17 for SOB, new 2L O2 requirement - OSH workup: Trp 1.95>5.1>10, proBNP 6800, CXR w/ mild interstitial edema - OSH C 930 w/ L main widely patent, LAD proximal body 80% stenosis, LAD stent w/ moderate ISR, L cx w/ 95% stenosis in proximal body, OM branches w/ mild disease, RCA is CUSTOMER ACQUISITION SPECIALIST in mid body w/ L to R collaterals - cath films uploaded - OSH TTE reportedly w/ EF 50%, AV prosthesis w/o abnormal gradients - trop here 7,6561, repeat pending - currently denies chest pain or pressure, sob improving - PCI today - continue heparin drip - continue asa, coreg, atorvastatin 80mg - telemetry Assessment & Plan (05/20/2024 1:02 AM CDT): Went to [facility] 05/17 for SOB, new 2L O2 requirement - OSH workup: Trp 1.95>5.1>10, proBNP 6800, CXR w/ mild interstitial edema - OSH C /30 w/ L main widely patent, LAD proximal body 80% stenosis, LAD stent w/ moderate ISR, L cx w/ 95% stenosis in proximal body, OM branches w/ mild disease, RCA is CUSTOMER ACQUISITION SPECIALIST in mid body w/ L to R [...] & Plan (05/21/2024 10:58 AM CDT): P/t [facility] 05/17 for SOB, on 3.5L [...] Assessment & Plan (05/20/2024 11:50 AM CDT): [facility] 05/17 for SOB, on 3.5L now [...] Assessment & Plan (05/20/2024 1:00 AM CDT): [facility] 05/17 for SOB, on 2L now [...] benefi Assessment & Plan (07/04/2024 1:02 PM ASSISTANT REAL ESTATE MANAGER): He may just be symptomatic from [...] Assessment & Plan (03/17/2024 1:48 PM CDT): 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 [...] stenosis. Assessment & Plan (07/04/2024 1:03 PM ASSISTANT REAL ESTATE MANAGER): Failed LMBB. 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 Sheth helps [...] quiescent Assessment & Plan (09/04/2018 10:33 AM ASSISTANT REAL ESTATE MANAGER): COPD is unchanged. COPD information handout [...] to PT - wants to go to [facility]. Trial robaxin. Flexeril on med [...] no Assessment & Plan (10/01/2019 10:35 AM ASSISTANT REAL ESTATE MANAGER): S2 makes a wonderfully crisp snap w/o any regurge Gastroesophageal reflux disease 09/17/2014 Tussive syncope 08/25/2014 Syncope and collapse 08/21/2014 Syncope 08/21/2014 Type 2 diabetes mellitus 07/10/2014 Overview (05/13/2021): Was on levemir but stopped 2015 then on trulicity so on metformin ALONE We had better control w/ Jardiance -since he has been w/ Dr Stockton [id number] has been on Actose and metformin- Off [...] heart- Assessment & Plan (10/01/2019 10:30 AM ASSISTANT REAL ESTATE MANAGER): His A1C has crept to 7.5% [...] covered Assessment & Plan (09/04/2018 10:42 AM ASSISTANT REAL ESTATE MANAGER): Diabetes is worsening. Continue current treatment [...] 07/09/2014 Assessment & Plan (10/01/2019 10:32 AM ASSISTANT REAL ESTATE MANAGER): He gets along nicely w/ a [...] Encounters Date Type Department Care Team Description 05/25/2025 Orders Only [facility] Medicine Cardiology [address] [place] [address] [place] [address] [place] [address] Ingris Quintana RN 05/21/[address] [facility] Cardiology [address] [place] [address] [place] [address] Rehan Sheth MD 05/14/2025 Orders Only [facility] Medicine Cardiology [address] [place] [address] [place] [address] Naila Cortez RN 05/13/2025 2:30 PM CDT Office Visit [facility] Cardiology [address] [place] [address] [place] [address] Rehan Sheth MD History of aortic valve replacement (Primary Dx); Persistent atrial fibrillation (HCC); Hypercholesterolemia; Benign essential hypertension 04/29/[address] [facility] Cardiology [address] [place] [address] [place] [address] Rehan Sheth MD Med Management from Last 3 Months Immunizations Immunization Administration [...] 03/19/2016 Surgical History Surgery Date Site/Laterality Comments CA LASER VAPORIZATION OF PROSTATE FOR URINE FLOW Laser Vaporization With Transurethral Resection Of Prostate - (Added by TW Conv) CA RPLCMT PROST AORTIC VALVE OPEN XCP HOMOGRF/STENT Aortic Valve Replacement - (Added by TW Conv) BIOPSY DEEP BONE 12/21/2023 N/A CARDIAC CATHETERIZATION 10/03/2024 N/A Procedure: Right Left Heart Catheterization with Coronary Angiography with or without Left Ventriculography [id number]; Surgeon: Nigel Holman MD; Location: [facility] CARDIAC SYSTEM SOFTWARE DEVELOPER; Service: Cardiovascular; Laterality: N/A; Cp, SOB, CAD Cath with PCI [facility] 05/21/[address] Pedroza. On glucatrol, [...] TW Conv) Low back pain Diabetes mellitus Hypertension COPD (chronic obstructive pu lmonary disease) Family History Medical History Relation Name Comments [...] Tobacco: Never Tobacco Cessation:Counseling Given: Not Answered [facility] Utilities Answer Date Recorded In the past 12 months has th e [employer], gas, oil, or [employer] threatened to shut off services in your [...] week 09/15/2024 How often do you attend [facility] or sabianism services? More than 4 times [...] Date Recorded PHQ-2 Total Score 0 09/12/2024 [facility] of Occupat ional Health - Occupational Stress [...] on file Legal Sex Male 8:23 PM ASSISTANT REAL ESTATE MANAGER Gender Identity Not on file Sexual Orientation Not on file Obstetrics History Last Filed Vital Signs Vital Sign Reading Time Taken Comments Blood Pressure 108/65 05/13/2025 1:05 PM CDT Pulse 64 05/13/2025 1:05 PM CDT Temperature 36.6 C (97.9 F) 10/06/2024 12:33 PM ASSISTANT REAL ESTATE MANAGER Respiratory Rate 10 10/06/2024 6:55 PM ASSISTANT REAL ESTATE MANAGER Oxygen Saturation 95% 05/13/2025 1:05 PM CDT Inhaled Oxygen Concentration - - Weight 101.1 kg (222 lb 12.8 oz) 05/13/2025 1:05 PM CDT Height 182.9 cm (6') 12/31/2024 9:17 AM CDT Body Mass Index 30.22 12/31/2024 9:17 AM CDT Plan of Treatment Health Maintenance Due Date Last Done Comments Albumin Creatinine Ratio, Urine 1940 Hepatitis B Screening 1958 Zoster Vaccine (2 of 3) 05/14/2016 03/19/2016 Dilated Eye Exam 05/05/2020 05/05/2019 Foot Exam 11/05/2021 11/05/2020, 06/04/2019 Well Visit 65+ 11/05/2021 11/05/2020, 06/04/2019 Hemoglobin A1C 12/06/2024 06/07/2024, 08/04/2022, 11/10/2021, Additional history exists Covid-19 Vaccine (5 - 2024-2 6 season) 2025 05/16/2022, 05/17/2021, 10/23/2020, Additional history exists Influenza Vaccine (#1) 2025 , 05/03/2022, 05/13/2021, Additional history exists Lipid Panel 06/07/2025 06/07/2024, 1008/2023, 11/05/2020, Additional history exists Depression Screening 09/11/2025 09/11/2024, 05/13/2021, 11/05/2020, Additional history exists Fall Risk Assessment 10/03/2025 10/03/2024, 11/05/2020, 06/04/2019 eGFR 01/13/2026 01/13/2025, 12/18, 12/23/2024, Additional history exists DTaP/Tdap/Td Vaccine (5 - Td or Tdap) 05/05/2029 05/05/2019, 03/08/2019, 02/24/2019, Additional history exists Pneumococcal vaccine 65+ Completed 06/04/2019, 06/21 Goals Goal Patient Goal Type Associated Problems Recent Progress Patient-Stated? Author CCM Chronic Pain Care Plan Chronic Care Management Improving( 10:49 AM ASSISTANT REAL ESTATE MANAGER) Nenita Sanchez, RN Note: Problem: Chronic Pain Goals: 1. Minimize further functional decline 2. Maximize quality of life 3. Control pain Strategies: - Activity/exercise program recommendation - Conservative stepwise pain medicine strategy with multi-disciplinary approach - Recommend healthy lifestyle strategies and compensatory methods as needed Medical Devices Implanted Type Area Certified Public Accountant Device Identifier Shelf Expiration Date Model / Serial / Lot TerCedexis Branden Angio-Seal Vip Bondek-Plus 8fr .038in 70cm Hemostatic Latex Free [id number] - [id number] - [id number] Implanted:Qty : 1 on 05/20/2024 by Papo Rascon MD at [facility] Collagen Right: Common Femoral Artery Terumo Inxero Branden 12/10/2024 [id number] / [id number] / [id number] Prosthetic Valve Prosthetic Valve Heart Description:Heart Valve Medtronic Card Vasc Surgery 4.0 X 12mm Shar Milbridge Rx Coronary Stent [id number] - [id number] - [id number] Implanted:Qty : 1 on 05/20/2024 by Vitor Pedroza MD at [facility] Stent N/A: Circumflex Coronary Artery Medtronic Card Vasc Surgery 01/11/2027 [id number] / [id number] / [id number] Medtronic Card Vasc Surgery 4.0 X 12mm Shar Milbridge Rx Coronary Stent [id number] - [id number] - [id number] Implanted:Qty : 1 on 05/20/2024 by Vitor Pedroza MD at [facility] Stent Left: Anterior Descending Cornary Artery Medtronic Card Vasc Surgery 11/14/2026 [id number] / [id number] / [id number] Medtronic Card Vasc Surgery 4.0 X 18mm [place] Milbridge Rx Coronary Stent [id number] - [id number] - [id number] Implanted:Qty : 1 on 10/03/2024 by Nigel Holman MD at [facility] Stent Left: Anterior Descending Cornary Artery Medtronic Card Vasc Surgery 04/14/2027 [id number] / [id number] / [id number] Description:Adrian TO lad Procedures Procedure Name Priority Date/Time Associated Diagnosis Comments BASIC METABOLIC PANEL Routine 01/13/2025 8:17 AM CDT Chronic heart failure with preserved ejection fraction (HCC) HEMOGLOBIN A1C Routine 06/07/2024 8:38 AM CDT LIPID PANEL Routine 06/07/2024 8:38 AM CDT DIABETES FOOT EXAM Routine 11/05/2020 DIABETES EYE EXAM Routine 05/05/2019 from Last 3 Months or Most Recently Relevant to Health Maintenance Results * (ABNORMAL) Basic metabolic panel (01/13/2025 8:17 AM CDT) Glucose 126(H) 65 - 99 mg/dL [facility] Comment: Specimen hemolyzed. The test(s) ordered were performed. Hemolysis has been known to affect the results of the following analytes: potassium, glucose, inorganic phosphorus, lactate dehydrogenase and iron. Fasting reference interval For someone without known diabetes, a glucose value >125 mg/dL indicates that they may have diabetes and this should be confirmed with a follow-up test. BUN 25 7 - 25 mg/dL [facility] Creatinine 1.11 0.70 - 1.22 mg/dL [facility] eGFR 65 > OR = 60 mL/min/1. 73m2 [facility] BUN/creat ratio SEE NOTE: 6 - 22 (calc) [facility] Comment: Not Reported: BUN and Creatinine are within reference range. Sodium 141 135 - 146 mmol/L [facility] Potassium, pl 3.9 3.5 - 5.3 mmol/L [facility] Chloride 103 98 - 110 mmol/L [facility] CO2 28 20 - 32 mmol/L [facility] Calcium 9.3 8.6 - 10.3 mg/dL [facility] Blood 01/13/2025 8:17 AM CDT 01/13/2025 8:18 AM CDT Narrative [facility] - 01/13/2025 5:36 PM CDT FASTING:YES FASTING: YES Rehan Sheth MD LAB BLOOD ORDERABLES F inal Result [facility] [address] [place] [address] * (ABNORMAL) Hemoglobin A1c (06/07/2024 8:38 AM CDT) Hgb A1C 6.1(H) 4.0 - 5.6 % Estimated Average Glucose 128 mg/dL [facility] Comment: The ADA recommends reporting an estimated Average Glucose (eAG) with all Hemoglobin A1c results using the equation derived from a study of 507 normal and diabetic adults. Minority populations were underrepresented and children were not included. (Diabetes Care 31:2407-7180, 2008). The eAG is not equivalent to a fasting glucose. Blood 06/07/2024 8:38 AM CDT 06/07/2024 9:07 AM CDT Joe Hood MD LAB BLOOD ORDER MAITE Final Result [facility] [address] [facility] Department [place] [address] * Lipid panel (06/07/2024 8:38 AM CDT) Pathologist [facility] Cholesterol 116 30 - 199 mg/dL Comment: [...] LAB BLOOD ORDER MAITE Final Result [facility] [address] [facility] Department of Laboratories [place], [place] [id number] * DIABETES FOOT EXAM (11/05/2020) Diabetic Foot Exam Normal Historical Provider HEALTH MAINTENANCE Final Result * DIABETES EYE EXAM (05/05/2019) Diabetic Eye Exam Normal Historical Provider HEALTH MAINTENANCE Final Result from Last 3 Months or Most Recently Relevant to Health Maintenance Insurance [employer] CHOICE MEDICARE PPO UHC MEDICARE ADVANTAGE Advance Directives For more information, please contact: [phone] Documents on File Type Date Recorded Patient Collection Coordinator Expl anation ADVANCE DIRECTIVE 12/27/2023 10:41 PM Jorge Villa OWER OF PIER HAND HELPER-MEDICAL ADVANCE DIRECTIVE 12/26/2023 10:38 AM Yazmin Medina POWER OF PIER HAND HELPER-FINANCIAL * Full Code (Latest Code Status on [...] Medina Daughter First Alternate Health Care Agent [email or web address] Care Teams Manager Rn Relationship Specialty Start Date End Date Barry Ralph MD PCP - General Family Practice 05/22/24 Rehan Sheth MD [address] [address] Consulting Physician Cardiology 09/09/24
--- OUTSIDE RECORDS SUMMARY | 2025-06-09 15:44 | XMS_ITS | Encounter Summary ---
Author Organization [facility] Healthcare Address [address] [place] [address] Care Team Providers Care Abstract Maker Name Role Phone Barry Ralph MD Primary Care Provider [phone] Barry Ralph MD Primary Care Provider [phone] Rosalee Crowder UNIT SUPPORT REPRESENTATIVE Unavailable Rehan Sheth MD Unavailable Sangita Moore RN Unavailable Encounter Details Date Type Department Care Team (Late st Contact Info) Description 02/26/2024 Telephone [facility] [address] [facility] [address] [place] [address] Aleksander Shankar MD [address] [place] [address] Social History Tobacco Use Types Packs/Day Years Used Date Smoking Tobacco: Never Smokeless Tobacco: Never [facility] Utilities Answer Date Recorded In the past 12 months has e electric, gas, oil, or water company threatened to shut off services in your home? No 01/01/2024 Social Connection and Isolation Panel Answer Date Recorded In a typical week, how many times do you talk on the phone with family, friends, or neighbors? More than three times a week 01/01/2024 How often do you get togethe r with friends or relatives? More than three times a week 01/01/2024 How often do you attend chur ch or congregation services? More than 4 times per year 01/01/2024 Do you belong to any clubs o r organizations such as muslim groups, unions, fraternal or athletic groups, or [...] staff should administer the PHQ-9) 0 05/13/2021 [facility] - Occupational Stress Questionnaire Answer [...] a nursing home (including now)? No 01/01/2024 Personal Safety Answer Date Recorded Have you ever been in or are you currently in a harmful physical or emotional relationship or is someone making you feel afraid or unsafe? Denies 12/19/2023 Sex and Gender Information Value Date Recorded Sex Assigned at Not on file Legal Sex Male 8:23 PM MESH WORKER Gender Identity Not on file Sexual Orientation Not on file documented as of this encounter Plan of Treatment Not on file documented as of this encounter Goals Goal Patient Goal Type Associated Problems Recent Progress Patient-Stated? Author CCM Chronic Pain Care Plan Chronic Care Management Improving( 10:49 AM MESH WORKER) No Nenita Satniago, TIM Note: Problem: Chronic Pain Goals: 1. [...] to 9200 09/12/2024 09/12/2024 09/19/2024 3:07 AM MESH WORKER documented as of this encounter Care Teams Abstract Maker Relationship Specialty Start Date End Date Barry Ralph MD PCP - General Family Practice 10/20/22 05/20/24 Barry Ralph MD PCP - General Family Practice 05/22/24 Rosalee Crowder, [facility] [address] [facility] ([facility] Mailstop [phone] [place] [address] SHOP Outpatient Brake Lining Finisher Asbestos 05/22/24 06/19/24 Rehan Sheth MD [address] [facility] [address] [place] [address] Consulting Physician Cardiology 09/09/24 Sangita Moore, RN [address] [facility] [address] [place] [address] SHOP Outpatient Brake Lining Finisher Asbestos 09/15/24 10/13/24 documented as of this encounter
--- OUTSIDE RECORDS SUMMARY | 2025-06-09 15:44 | XMS_ITS | Clinical Summary ---
Author Organization [facility] Address [address] [place] [address] Care Team Providers Care Chemical Checker Name Role Phone Robin Nelson MD Primary Care Provider [phone] Allergies No known active allergies Medications warfarin [...] Active METFORMIN 1000 MG tabletIndications :Diabetes mellitus ([facility]) TAKE 1 TABLET BY MOUTH TWICE A DAY 60 tablet 2 1 Active PIOGLITAZONE 15 MG tabletIndications :Type 2 diabetes mellitus with stage 3a chronic kidney disease, without long-term current use of insulin ([facility]) TAKE 1 TABLET BY MOUTH [...] Noted Date Diagnosed Date COPD (chronic obstructive pulmonary disease) Diabetes mellitus Hypertension Immunizations Immunization Administration Dates Next Due Flublok (Quadrivalent) 06/02/2020 Fluzone High Dose - >Age 65 (Prefilled Syringe) 07/02/2018 PFIZER COVID-19 (ORIGINAL FO RMULATION, PURPLE CAP) mRNA, LNP-S, PF, 30 MCG/0.3 ML DOSE 10/23/2020,09/25/2020 Tdap (Generic) 03/08/2019,03/19/2016 Zoster (Zostavax) 96327 Unt/0.65Ml 03/19/2016 Social History Tobacco Use Types [...] Comments Blood Pressure 155/71 09/19/2021 12:53 PM [employer]QUIPMENT MAINTENANCE SUPERVISOR Pulse 68 09/19/2021 12:53 PM [employer]NAL EQUIPMENT MAINTENANCE SUPERVISOR Temperature 35.8 C (96.5 F) 09/19/2021 11:03 AM CANAL EQUIPMENT MAINTENANCE SUPERVISOR Respiratory Rate 20 09/19/2021 11:03 AM CANAL EQUIPMENT MAINTENANCE SUPERVISOR Oxygen Saturation 95% 09/19/2021 12:53 PM CANAL EQUIPMENT MAINTENANCE SUPERVISOR Inhaled Oxygen Concentration - - Weight 113.4 kg (250 lb) 09/15/2021 2:17 PM CANAL EQUIPMENT MAINTENANCE SUPERVISOR Height 182.9 cm (6') 09/15/2021 2:17 PM CANAL EQUIPMENT MAINTENANCE SUPERVISOR Body Mass Index 33.91 09/15/2021 2:17 PM CANAL EQUIPMENT MAINTENANCE SUPERVISOR Plan of Treatment Health Maintenance Due [...] Panel 02/01/2021 02/02/2020 COVID-19 Vaccine (3 - 2024-2 6 season) 2025 10/23/2020, 09/25/2020 Influenza Adult (#1) 2025 06/02/2020, 07/02/2018 DTaP, Tdap and Td Vaccines ( 3 - Td or Tdap) 03/08/2029 03/08/2019, 03/19/2016 Hepatitis A Vaccines Aged Out No long er eligible based on patient's age to complete this topic Meningococcal B Vaccine Aged Out No l onger eligible based on patient's age to complete this topic Meningococcal Vaccine Aged Out No miriam michael eligible based on patient's age to complete this topic RSV Immunizations Under 20 Months Aged Out No longer eligible b ased on patient's age to complete this topic Medical Devices Implanted Type Area Casing Runner Device Identifier Shelf Expiration Date Model / Serial / Lot Intraocular Lens Implanted:Qty: 1 on 09/19/2021 by Daren Ralph MD at [facility] Left: Eye 04/14/2023 [id number] / [id number] / Procedures Procedure Name Priority Date/Time Associated Diagnosis Comments HEMOGLOBIN, GLYCOSYLATED Routine 07/05/2020 Type 2 diabetes mellitus with stage 3a chronic kidney disease, without long-term current use of insulin LIPID PANEL Routine 02/02/2020 11:47 AM CDT Dyslipidemia from Last 3 Months or Most Recently Relevant to Health Maintenance Results * HEMOGLOBIN, GLYCOSYLATED (07/05/2020) HGB A1C 8.2 % [address] ([id number] [facility]) [place] 07/05/2020 Collette Stockton MD LABORATORY Final Result [facility] ([id number] [facility]) [place] [address] [place] [address], * (ABNORMAL) LIPID PANEL (02/02/2020 11:47 AM CDT) Pathologist [facility] CHOLESTEROL 123 <200 mg/dL [facility] HDL 37(L) > OR = 40 mg/dL [facility] TRIGLYCERIDES 237(H) <150 mg/dL [facility] Comment: If a non-fasting specimen was collected, consider repeat triglyceride testing on a fasting specimen if clinically indicated. Amrit et al. J. of Clin. Lipidol. 2015;9:129-169. LDL (CALCULATED) 56 mg/dL (calc) [facility] Comment: Reference range: <100 Desirable range <100 mg/dL for primary prevention; <70 mg/dL for patients with CHD or diabetic patients with > or = 2 CHD risk factors. LDL-C is now calculated using the Herber-Chapa calculation, which is a validated novel method providing better accuracy than the Friedewald equation in the estimation of LDL-C. Herber SS et al. SADE. 2013;310(19): 0636-3339 (http://education.orangutrans.The TechMap/faq/NLR679) CHOL/HDL RATIO 3.3 <5.0 (calc) [facility] NON HDL CHOLESTEROL 86 <130 mg/dL (calc) [facility] Comment: For patients with diabetes plus 1 major ASCVD risk factor, treating to a non-HDL-C goal of <100 mg/dL (LDL-C of <70 mg/dL) is considered a therapeutic option. 02/02/2020 11:4 7 AM CDT 02/03/2020 3:01 AM CDT Narrative Resulting Agency Comment Performing Organization Information: Site ID: [place] Name: [email or web address] Address: [address] [address] Director: Siva Roman D.O., MPH Collette Stockton MD LABORATORY Final Result [facility] [address] [address], from Last 3 Months or Most Recently Relevant to Health Maintenance Insurance MEDICARE [facility] MEDICARE Care Teams Chemical Checker Relationship Specialty Start Date End Date Robin Nelson MD PCP - General INTERNAL MEDICINE 08/10/21
== END 2025-06-09 14:30 ==
PROVIDERS: Emergency Provider Student in an Organized Health Care Education/Training Program; PCP Family Medicine
DX: S72.001D Fracture of unspecified part of neck of right femur, subsequent encounter for closed fracture with routine healing (principal); F41.9 Anxiety disorder, unspecified; I25.10 Atherosclerotic heart disease of native coronary artery without angina pectoris; I48.0 Paroxysmal atrial fibrillation; I11.0 Hypertensive heart disease with heart failure; I50.9 Heart failure, unspecified; I35.9 Nonrheumatic aortic valve disorder, unspecified; E78.5 Hyperlipidemia, unspecified; E11.9 Type 2 diabetes mellitus without complications; Z95.2 Presence of prosthetic heart valve; Z95.5 Presence of coronary angioplasty implant and graft; Z96.649 Presence of unspecified artificial hip joint; Z86.73 Personal history of transient ischemic attack (TIA), and cerebral infarction without residual deficits; Z85.828 Personal history of other malignant neoplasm of skin; Z98.49 Cataract extraction status, unspecified eye; Z79.01 Long term (current) use of anticoagulants; Z79.899 Other long term (current) drug therapy; Z79.02 Long term (current) use of antithrombotics/antiplatelets; X58.XXXD Exposure to other specified factors, subsequent encounter
CPT/HCPCS: 99283; A9270